=== PATIENT | male | born 1985 | race African-American/Black ===

== ENCOUNTER → 2022-11-15 | Outpatient (REF) | payer MEDICARE, MEDICAID, SELFPAY ==
[2022-11-15 08:17] LABS: Absolute Neutrophil Count 5.8 X10^3/uL (2.0-7.7); Basophil# 0.07 X10^3/uL; Basophil% 0.9 % (0-1); Eosinophil# 0.43 X10^3/uL; Eosinophils% 5.2 % (0-5); Hematocrit 28.8 % (40-54); Hemoglobin 8.7 g/dL (13.0-16.5); Lymphocyte % 13.4 % (19-41); Mean Corp Hgb Conc 30.2 g/dL (32-36); Mean Corpuscular Hgb 28.1 pg (27.0-32.0); Mean Corpuscular Volume 92.9 fL (80-94); Mean Platelet Vol. 11.2 fl (6.2-12.0); Monocyte# 0.85 X10^3/uL; Monocyte% 10.3 % (0-10); NRBC Flagged by Analyzer 0 % (0-5); Neutrophil # 5.75 X10^3/uL (2.7-7.7); Platelet Count 386 K/mm3 (150-450); RBC Distribution Width CV 16.8 % (11.6-14.6); RBC Distribution Width SD 57.1 fl (35.1-43.9); White Blood Count 8.2 K/mm3 (4.4-11.0)
[2022-11-15 08:40] LABS: ALB/GLOB Ratio 0.2 RATIO (0.9-2.4); AST(SGOT) 24 U/L (15-37); Alanine Aminotransfer ALT/SGPT 15 U/L (16-61); Albumin, Serum 1.5 g/dL (3.2-5.0); Alkaline Phosphatase 851 U/L (45-117); Anion Gap 6 (5-15); BUN 23 mg/dL (7-18); BUN/Creat Ratio 8.4 RATIO (10-20); Calcium,Total 8.6 mg/dL (8.5-10.1); Chloride 103 mmol/L (98-107); Creatinine, Serum 2.73 mg/dL (0.70-1.30); EST Glomerular Filtration Rate 28 mL/min (>60); Est Glom Filt Rate - Afr Amer 34 mL/min (>60); Globulin 6.2 g/dL (2.2-4.2); Glucose 270 mg/dL (74-106); Magnesium 1.9 mg/dL (1.6-2.6); Potassium 4.7 mmol/L (3.5-5.1); Protein, Total 7.7 g/dL (6.4-8.2); Sodium Level 136 mmol/L (136-145); Thyroid Stim Hormone (TSH) 4.34 uIU/mL (0.358-3.74)
== END ==
LOC: OLS.SW 06:20
PROVIDERS: Visit Provider Internal Medicine
DX: Z02.0 Encounter for examination for admission to educational institution (principal); Z79.899 Other long term (current) drug therapy
CPT/HCPCS: 36415; 80053; 83036; 83735; 84443; 85025

== ENCOUNTER → 2022-11-28 | Outpatient (REF) | payer MEDICARE, MEDICAID, SELFPAY ==
[2022-11-28 09:09] LABS: Hematocrit 30.6 % (40-54); Hemoglobin 8.9 g/dL (13.0-16.5); Mean Corp Hgb Conc 29.1 g/dL (32-36); Mean Corpuscular Hgb 27.4 pg (27.0-32.0); Mean Corpuscular Volume 94.2 fL (80-94); Mean Platelet Vol. 11.4 fl (6.2-12.0); Platelet Count 247 K/mm3 (150-450); RBC Distribution Width SD 55.5 fl (35.1-43.9); Red Blood Count 3.25 M/mm3 (4.6-6.2); White Blood Count 9.3 K/mm3 (4.4-11.0)
[2022-11-28 09:39] LABS: ALB/GLOB Ratio 0.3 RATIO (0.9-2.4); AST(SGOT) 19 U/L (15-37); Alanine Aminotransfer ALT/SGPT 18 U/L (16-61); Albumin, Serum 1.9 g/dL (3.2-5.0); Alkaline Phosphatase 443 U/L (45-117); Anion Gap 5 (5-15); BUN 26 mg/dL (7-18); BUN/Creat Ratio 10.1 RATIO (10-20); Calcium,Total 8.4 mg/dL (8.5-10.1); Chloride 105 mmol/L (98-107); Creatinine, Serum 2.58 mg/dL (0.70-1.30); EST Glomerular Filtration Rate 30 mL/min (>60); Est Glom Filt Rate - Afr Amer 37 mL/min (>60); Globulin 5.9 g/dL (2.2-4.2); Glucose 287 mg/dL (74-106); Magnesium 1.7 mg/dL (1.6-2.6); Potassium 4.5 mmol/L (3.5-5.1); Protein, Total 7.8 g/dL (6.4-8.2); Sodium Level 137 mmol/L (136-145)
== END ==
LOC: OLS.SW 07:00
PROVIDERS: Visit Provider Internal Medicine
DX: E11.9 Type 2 diabetes mellitus without complications (principal); D64.9 Anemia, unspecified
CPT/HCPCS: 36415; 80053; 83735; 85027

== ENCOUNTER → 2022-12-10 | Outpatient (REF) | payer MEDICARE, MEDICAID, SELFPAY ==
[2022-12-10 09:05] LABS: Hematocrit 34.3 % (40-54); Mean Corp Hgb Conc 29.2 g/dL (32-36); Mean Corpuscular Hgb 27.6 pg (27.0-32.0); Mean Corpuscular Volume 94.8 fL (80-94); Platelet Count 240 K/mm3 (150-450); RBC Distribution Width SD 56.8 fl (35.1-43.9); Red Blood Count 3.62 M/mm3 (4.6-6.2); White Blood Count 6.6 K/mm3 (4.4-11.0)
[2022-12-10 09:16] LABS: Anion Gap 7 (5-15); BUN 53 mg/dL (7-18); BUN/Creat Ratio 11.8 RATIO (10-20); Calcium,Total 8.6 mg/dL (8.5-10.1); Chloride 108 mmol/L (98-107); Creatinine, Serum 4.51 mg/dL (0.70-1.30); EST Glomerular Filtration Rate 16 mL/min (>60); Est Glom Filt Rate - Afr Amer 19 mL/min (>60); Glucose 151 mg/dL (74-106); Potassium 4.8 mmol/L (3.5-5.1); Sodium Level 136 mmol/L (136-145)
== END ==
LOC: OLS.SW 04:00
PROVIDERS: Referring Provider Internal Medicine; Visit Provider Internal Medicine
DX: J96.01 Acute respiratory failure with hypoxia (principal); N18.6 End stage renal disease
CPT/HCPCS: 36415; 80048; 83735; 85027

== ENCOUNTER 2023-01-01 23:37 | Inpatient (IN) | payer MEDICARE, MEDICAID, SELFPAY ==
[2023-01-01 23:39] VITALS: BP 150/110; PULSE 120; RESP 23; TEMP 39.5; O2SAT 96; BMI 33.8
[2023-01-01 23:44] VITALS: BP 196/97; PULSE 120; RESP 27; TEMP 39.5; O2SAT 95
[2023-01-02] VITALS (13 sets, daily range): BP systolic 111–149; BP diastolic 69–94; PULSE 88–112; RESP 12–36; TEMP 35.9–38.7; O2SAT 96–100
--- NOTE | 2023-01-02 00:22 | RAD_ITS ---
INDICATION: cough EXAMINATION: Frontal view of the chest COMPARISON: None. FINDINGS: Frontal view of the chest was obtained. The cardiac silhouette appears mildly enlarged although heart size can be exaggerated on AP projection. No confluent airspace disease. No pneumothorax. RAD/Chest 1 View (Portable) IMPRESSION: No confluent airspace disease. Suspected mild cardiomegaly. Electronically Signed: Chris Kaur MD at 1:09 EDT ,
[2023-01-02 00:29] LABS: Absolute Lymphocyte Count 1.74 X10^3/uL (0.83-4.51); Absolute Neutrophil Count 17.7 X10^3/uL (2.0-7.7); Basophil# 0.06 X10^3/uL; Basophil% 0.3 % (0-1); Hematocrit 34.8 % (40-54); Hemoglobin 10.5 g/dL (13.0-16.5); Lymphocyte # 1.74 X10^3/ul (0.83-4.51); Lymphocyte % 8.4 % (19-41); Mean Corp Hgb Conc 30.2 g/dL (32-36); Mean Corpuscular Hgb 28.2 pg (27.0-32.0); Mean Corpuscular Volume 93.5 fL (80-94); Mean Platelet Vol. 10.8 fl (6.2-12.0); Monocyte# 0.84 X10^3/uL; Monocyte% 4.1 % (0-10); NRBC Flagged by Analyzer 0 % (0-5); Neutrophil # 17.68 X10^3/uL (2.7-7.7); Neutrophil % 85.5 % (47-70); Platelet Count 250 K/mm3 (150-450); RBC Distribution Width CV 15.9 % (11.6-14.6); RBC Distribution Width SD 54.9 fl (35.1-43.9); Red Blood Count 3.72 M/mm3 (4.6-6.2); White Blood Count 20.7 K/mm3 (4.4-11.0)
[2023-01-02] MEDS: Acetaminophen 500 MG Tablet 1000 MG PO (00:31)
[2023-01-02 00:45] LABS: Lactic Acid 1.9 mmol/L (0.4-1.9)
[2023-01-02 00:48] LABS: Anion Gap 10 (5-15); BUN 60 mg/dL (7-18); BUN/Creat Ratio 9.6 RATIO (10-20); Calcium,Total 8.4 mg/dL (8.5-10.1); Chloride 103 mmol/L (98-107); Creatinine, Serum 6.23 mg/dL (0.70-1.30); EST Glomerular Filtration Rate 11 mL/min (>60); Est Glom Filt Rate - Afr Amer 13 mL/min (>60); Glucose 109 mg/dL (74-106); Phosphorus 4.5 mg/dL (2.5-4.9); Sodium Level 136 mmol/L (136-145)
--- NOTE | 2023-01-02 00:50 | ED.RN ---
sister called and made aware of condition and status at this time
--- NOTE | 2023-01-02 00:53 | EKG12_ITS ---
Test Reason : DYSRHYTHMIA Blood Pressure : / mmHG Vent. Rate : 112 BPM Atrial Rate : 112 BPM P-R Int : 144 ms QRS Dur : 072 ms QT Int : 306 ms P-R-T Axes : 030 029 124 degrees QTc Int : 417 ms Sinus tachycardia Abnormal ECG Confirmed by JEFF SMITH MD ([id number]), editor news JENS DANIELSON ([id number]) on 01/02/2023 10:06:55 AM Referred By: MADI Confirmed By:JEFF SMITH MD
[2023-01-02 01:08] LABS: Potassium 5.5 mmol/L (3.5-5.1)
[2023-01-02] MEDS: Ondansetron 4 MG/2 ML Vial IV (01:21)
[2023-01-02] MEDS: Morphine 4 MG/ML Syringe IV ×3 (01:21→22:34)
--- NOTE | 2023-01-02 01:40 | EDS_ITS ---
HPI History of Present Illness Chief Complaint: Fever Informant: patient and EMS Narrative Narrative: Patient is a 37-year-old male with end-stage renal disease on dialysis type 2 diabetes and paraplegia who presents with fever. Patient states that he receives dialysis on Saturday and Saturday. He states that he woke up Saturday feeling unwell and secondary to this did not go to dialysis. He states that this evening he developed a cough and had bouts of coughing so violently that he developed bouts of vomiting. He states he then spiked a fever and secondary to this there was concern for an infectious process so he was sent to the hospital for evaluation. 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 failure and stage 1 through stage 4 chronic kidney disease, or unspecified chronic kidney disease Hypothyroidism Kidney transplant failure Neuromuscular dysfunction of bladder, unspecified Other acute osteomyelitis, left ankle and foot Other pericardial effusion (noninflammatory) Other pulmonary embolism without acute cor pulmonale Paraplegia, incomplete Pressure ulcer of left heel, unspecified stage Type 2 diabetes mellitus with diabetic chronic kidney disease Home Medications acetaminophen 325 mg tablet 650 mg PO Q4H PRN PAIN/FEVER 01/02/23 [History Last Taken Unknown] acetaminophen 650 mg tablet 650 mg PO Q4H PRN PAIN/FEVER 01/02/23 [History Last Taken Unknown] aluminum-magnesium hydroxide 225 mg-200 mg/5 mL oral suspension 30 ml PO Q4H PRN PRN GI DISTRESS 01/02/23 [History Last Taken Unknown] apixaban 5 mg tablet (Eliquis) 5 mg PO BID 01/02/23 [History Last Taken Unknown] ascorbic acid (vitamin C) 500 mg tablet 500 mg PO DAILY 01/02/23 [History Last Taken Unknown] atorvastatin 40 mg tablet 40 mg PO QHS 01/02/23 [History Last Taken Unknown] bisacodyl 10 mg rectal suppository 10 mg CO DAILY PRN Constipation 01/02/23 [History Last Taken Unknown] carvedilol 12.5 mg tablet 12.5 mg PO BID 01/02/23 [History Last Taken Unknown] cetylpyridinium chloride 1 yunior mucous membrane Q3H PRN Sore Throat 01/02/23 [History Last Taken Unknown] clotrimazole-betamethasone 1 %-0.05 % topical cream 1 applic topical QHS 01/02/23 [History Last Taken Unknown] darbepoetin jacki in polysorbat 40 mcg/mL in polysorbate injection 40 mcg IV X1 PRN DIALYSIS 01/02/23 [History Last Taken Unknown] dextrose 40 % oral gel (Glucose Gel) 15 g PO Q15M PRN Hypoglycemia 01/02/23 [History Last Taken Unknown] diphenhydramine HCl 25 mg capsule (Benadryl) 25 mg PO DAILY PRN Itching 01/02/23 [History Last Taken Unknown] escitalopram oxalate 10 mg tablet 10 mg PO DAILY 01/02/23 [History Last Taken Unknown] famotidine 20 mg tablet 20 mg PO DAILY 01/02/23 [History Last Taken Unknown] gabapentin 300 mg capsule 300 mg PO QHS 01/02/23 [History Last Taken Unknown] glucagon 1 mg injection kit 1 mg IM PRN PRN Hypoglycemia 01/02/23 [History Last Taken Unknown] guaifenesin 100 mg/5 mL oral syrup 400 mg PO Q6H PRN Cough 01/02/23 [History Last Taken Unknown] hydralazine 25 mg tablet 25 mg PO Q8 01/02/23 [History Last Taken Unknown] insulin glargine 100 unit/mL (3 mL) subcutaneous pen (Lantus Solostar U-100 Insulin) 20 unit subcut QHS 01/02/23 [History Last Taken Unknown] insulin lispro 100 unit/mL subcutaneous pen (Humalog KwikPen (U-100) Insulin) 3 unit subcut TID 01/02/23 [History Last Taken Unknown] insulin lispro 100 unit/mL subcutaneous pen (Humalog KwikPen (U-100) Insulin) See Rx Instructions .Route .COMPLEX 01/02/23 [History Last Taken Unknown] levothyroxine 150 mcg capsule 150 mcg PO DAILY 01/02/23 [History Last Taken Unknown] melatonin 3 mg tablet 3 mg PO QHS 01/02/23 [History Last Taken Unknown] midodrine 10 mg tablet 10 mg PO DAILY 01/02/23 [History Last Taken Unknown] nystatin 100,000 unit/gram topical powder 1 applic topical PRN PRN Skin Intervention 01/02/23 [History Last Taken Unknown] ondansetron HCl 4 mg tablet 4 mg PO Q6H PRN Nausea 01/02/23 [History Last Taken Unknown] oxycodone 10 mg tablet 10 mg PO Q4H PRN Pain 01/02/23 [History Last Taken Unknown] oxycodone 5 mg tablet 5 mg PO Q4H PRN Pain 01/02/23 [History Last Taken Unknown] pantoprazole 40 mg tablet,delayed release 40 mg PO DAILY 01/02/23 [History Last Taken Unknown] polyethylene glycol 3350 17 gram oral powder packet 17 g PO DAILY 01/02/23 [History Last Taken Unknown] prednisone 5 mg tablet 5 mg PO DAILY 01/02/23 [History Last Taken Unknown] promethazine 12.5 mg tablet 12.5 mg PO Q8H PRN Nausea 01/02/23 [History Last Taken Unknown] sennosides 8.6 mg-docusate sodium 50 mg capsule (Senna Plus) 1 tab-cap PO BID PRN Constipation 01/02/23 [History Last Taken Unknown] sodium phosphates 19 gram-7 gram/118 mL enema (Fleet Enema) 118 ml CO DAILY PRN Constipation 01/02/23 [History Last Taken Unknown] tacrolimus 1 mg capsule, immediate-release (Prograf) 2 mg PO Q12H 01/02/23 [History Last Taken Unknown] trazodone 50 mg tablet 50 mg PO QHS 01/02/23 [History Last Taken Unknown] Allergy/AdvReac Type Severity Reaction Status Date / Time No Known Allergies Allergy Verified 01/01/23 23:38 Family History (Updated 01/02/23 @ 01:[address] Olga Moore MD) Mother Hypertension Diabetes Father Hypertension Diabetes Surgical History (Updated 01/02/23 @ 01:[address] Olga Moore MD) S/P colostomy S/P foot surgery S/P unilateral above knee amputation Social History (Updated 01/02/23 @ 01:[address] Olga Moore MD) housing: detention Smoking Status: Never smoker alcohol intake: never substance use type: does not use ROS ROS ED Constitutional Constitutional ED: Reports chills and fever(s) ENT ENT ED: Reports rhinorrhea; Denies sore throat Cardiovascular Cardiovascular: Denies chest pain Respiratory/Chest Respiratory/Chest: Reports cough; Denies dyspnea Gastrointestinal Gastrointestinal: Reports vomiting; Denies abdominal pain, diarrhea or nausea Genitourinary Genitourinary ED: Denies dysuria Musculoskeletal Musculoskeletal: Reports myalgias Integumentary Reports other Details: Chronic wound right foot Neurologic Neurologic: Denies headache(s) Hematologic/Lymphatic Hematologic/Lymphatic: Reports easy bleeding and easy bruising EXAM Physical Exam Const Vital Signs: 01/01/23 23:39 01/01/23 23:44 01/02/23 00:02 Temperature 103.1 F H 103.1 F H Temperature Source Oral Oral Pulse Rate 120 H 120 H Respiratory Rate 23 H 27 H Respiratory Effort Short of Breath Blood Pressure 150/110 H 196/97 H Blood Pressure Mean 123 130 Pulse Ox 96 95 Oxygen Delivery Method Nasal Cannula Nasal Cannula Oxygen Flow Rate (L/min) 3 3 01/02/23 00:12 01/02/23 00:50 01/02/23 01:18 Temperature 101.7 F H Temperature Source Oral Pulse Rate 112 H 111 H Respiratory Rate 27 H 36 H Respiratory Effort Blood Pressure 148/94 H 149/83 H Blood Pressure Mean 112 105 Pulse Ox 98 96 97 Oxygen Delivery Method Nasal Cannula Nasal Cannula Nasal Cannula Oxygen Flow Rate (L/min) 3 3 3 01/02/23 01:31 Temperature 98 F Temperature Source Temporal Pulse Rate 106 H Respiratory Rate 25 H Respiratory Effort Blood Pressure 149/83 H Blood Pressure Mean 105 Pulse Ox 97 Oxygen Delivery Method Oxygen Flow Rate (L/min) Positive well nourished and well developed General Appearance ED: well developed HEENT Reports moist mucous membranes HEENT Narrative: Cobblestoning the posterior pharynx consistent with sinus drainage without tongue or lip swelling oral lesions airway edema or compromise Eyes PERRL and EOMs intact bilaterally Neck supple and no JVD Chest Wall palpation of chest normal Resp normal respiratory effort and clear to auscultation bilaterally Resp Narrative: Breath sounds are diminished throughout but overall clear to auscultation without nasal flaring retractions tachypnea or accessory muscle use Cardio regular rhythm Rate: tachycardic GI non-tender and non-distended GI Narrative: Patient has a colostomy present in the left lower abdomen that is draining brown stool there is no abdominal distention or pain with palpation bowel sounds are normal active there is no voluntary guarding rigidity or pulsatile mass Auscultation: normoactive bowel sounds Palpation: soft Extremity Extremity Narrative: Patient has a fistula present in the left forearm with palpable thrill and good bruit Patient has an [id number]-[id number] amputation on left roughly 1 month ago that appears clean dry and intact without secondary changes to suggest infection Right lower extremity has chronic diabetic foot wound and loss of his fourth and fifth toes. There is no obvious surrounding erythema warmth or discharge from the wounds to suggest secondary infection. Neuro oriented x3 and CN's II-XII intact bilaterally Sensorium / Orientation: alert Psych mental status grossly normal Skin Skin Narrative: Chronic changes as documented above MDM MDM MDM Narrative Medical decision making narrative: Patient presented to the ER febrile at 103 and was tachycardic most likely secondary to this. He is on 3 L nasal cannula oxygen and satting 96 to 98%. He states that he wears 3 L every night at bedtime so this is not abnormal for him. He denies any abdominal pain or diarrhea and states he does not make urine. His main complaint is fever and chills associated with cough and therefore there is concern for pneumonia versus viral infection such as COVID or influenza. There is also concern that he skipped dialysis he has hyperkalemia or hyperphosphatemia as well as developing possible sepsis. Secondary to this basic blood work with cultures were obtained as well as lactic acid. A COVID and influenza swab as well as respiratory viral panel was obtained and a chest x-ray to look for pneumonia. Chest x-ray revealed no obvious infiltrate however the patient's white count is greatly elevated at 21 but lactic acid is normal. At this time with concern for a potential bacterial infection as a cause of his fever and leukocytosis he will be started on vancomycin and Zosyn while blood cultures are pending. At this time based on his fever and tachycardia as well as leukocytosis he does qualify for SIRS criteria but as I do not have an obvious source I cannot diagnose him as sepsis. There is no obvious signs of infection to his stump or chronic foot wound and I do not feel there is need for x-rays of these areas to check for osteomyelitis. At this time with the patient's abnormal vital signs and abnormal laboratory values I do feel be best to continue to evaluate the patient in the hospital and therefore medicine was contacted. They evaluated the patient and do agree with this and therefore he will be admitted to their service for further care History & Record Review Discussion w/independent historian: EMS personnel and Patient Lab Data Attestation: I reviewed the patient's lab results. Labs: Laboratory Results - last 24 hr 01/02/23 01/02/23 01/02/23 00:05 00:05 00:05 WBC 20.7 H RBC 3.72 L Hgb 10.5 L Hct 34.8 L MCV 93.5 MCH 28.2 MCHC 30.2 L RDW Std Deviation 54.9 H RDW Coeff of Shanta 15.9 H Plt Count 250 MPV 10.8 Immature Gran % (Auto) 0.700 Neut % (Auto) 85.5 H Lymph % (Auto) 8.4 L Lincoln % (Auto) 4.1 Eos % (Auto) 1.0 Baso % (Auto) 0.3 Absolute Neuts (auto) 17.7 H Absolute Lymphs (auto) 1.74 Nucleated RBC % 0 Sodium 136 Potassium 6.0 H* Chloride 103 Carbon Dioxide 23.0 Anion Gap 10 BUN 60 H Creatinine 6.23 H Estim Creat Clear Calc 18.70 Est GFR (MDRD) Af Amer 13 L Est GFR (MDRD) Non-Af 11 L BUN/Creatinine Ratio 9.6 L Glucose 109 H Lactic Acid 1.9 Calcium 8.4 L Phosphorus 4.5 Procalcitonin 01/02/23 01/02/23 00:05 00:52 WBC RBC Hgb Hct MCV MCH MCHC RDW Std Deviation RDW Coeff of Shanta Plt Count MPV Immature Gran % (Auto) Neut % (Auto) Lymph % (Auto) Lincoln % (Auto) Eos % (Auto) Baso % (Auto) Absolute Neuts (auto) Absolute Lymphs (auto) Nucleated RBC % Sodium Potassium 5.5 H Chloride Carbon Dioxide Anion Gap BUN Creatinine Estim Creat Clear Calc Est GFR (MDRD) Af Amer Est GFR (MDRD) Non-Af BUN/Creatinine Ratio Glucose Lactic Acid Calcium Phosphorus Procalcitonin 0.12 H Radiography Diagnostic Testing: Clinical Impression(s) from Imaging Studies Chest X-Ray 01/02/23 00:22 IMPRESSION: No confluent airspace disease. Suspected mild cardiomegaly. Electronically Signed: Chris Kaur MD at 1:09 EDT , 1 view chest x-ray as interpreted by the emergency medicine physician reveals no acute infiltrate pneumothorax or pleural effusion Discharge Plan Triage Chief Complaint: Fever ED Provider: Joel French Dx/Rx/DC Orders Clinical Impression: Pneumonia, Chronic kidney disease with end stage renal failure on dialysis, Hyperkalemia, Pyrexia, SIRS (systemic inflammatory response syndrome) Primary Care Provider: Vanessa Hutchins Disposition Disposition: Acute Care Hospital [facility] Discharge Date/Time: 01/02/23 01:42
--- NOTE | 2023-01-02 01:41 | HP.PCM.HOS_ITS ---
HPI - General General Date of Admission: 01/02/23 Date of Service: 01/02/23 Chief Complaint: Fever, cough, dyspnea. HPI Narrative The patient is a 37 y/o M w/ PMHx: Obesity, Chronic normocytic anemia/AOCD, Chronic Systolic CHF, HTN, HLD, ESRD on HD T s/p failed Txp, Hypothyroidism, Depression and Anxiety, GERD, Diabetes mellitus type II w/ Chronic R diabetic foot ulcerative wound, chronic left ischial/sacral wound, incomplete paraplegia following renal transplant per patient report secondary to severe clots of some sort but poor historian, s/p recent L SANTY residing at a SNF who presents to the [facility] ED on 01/02/23 with history of feeling poorly, missed HD Saturday with onset this evening fever, cough occasionally productive of white-yellow sputum, dyspnea in addition to palpitations/tachycardia with nausea and emesis but following bouts of coughing with normal ostomy output. Work-up in the ED included T103.1, heart rate initially 120 with most recent repeat 112, BP initially 150/110 with most recent repeat 140/94, respiratory rate 23, 96% on 3 L nasal cannula, CBC with WBC 20.7, hemoglobin 10.5, MCV 93.5, platelet 250 with left shift, BMP with potassium 5.5 initially reported as 6.0 with moderate hemolysis and on repeat slight hemolysis still evident, BUN/creatinine 60/6.23, glucose 109, lactic acid 1.9, procalcitonin pending upon requested evaluation of patient, chest x-ray with suspected mild cardiomegaly with no confluent airspace disease, rapid SARS COVID/influenza antigens negative, blood culture x2 pending per ED, full respiratory viral panel requested per ED and pending ID evaluation. In the ED patient ministered 1 L normal saline, Tylenol 1000 mg p.o. x1, Zofran 4 mg IV x1, morphine 4 mg IV x1, IV vancomycin and IV Zosyn therapy. [facility] Medical History Acute on chronic systolic (congestive) heart failure Acute pulmonary edema Acute respiratory failure with hypoxia Anemia in chronic kidney disease Dependence on renal dialysis Depression End stage renal disease Gastro-esophageal reflux disease without esophagitis Hyperlipemia Hypertensive heart and chronic kidney disease with heart failure and stage 1 through stage 4 chronic kidney disease, or unspecified chronic kidney disease Hypothyroidism Kidney transplant failure Neuromuscular dysfunction of bladder, unspecified Other acute osteomyelitis, left ankle and foot Other pericardial effusion (noninflammatory) Other pulmonary embolism without acute cor pulmonale Paraplegia, incomplete Pressure ulcer of left heel, unspecified stage Type 2 diabetes mellitus with diabetic chronic kidney disease Home Medications acetaminophen 325 mg tablet 650 mg PO Q4H PRN PAIN/FEVER 01/02/23 [History Last Taken Unknown] acetaminophen 650 mg tablet 650 mg PO Q4H PRN PAIN/FEVER 01/02/23 [History Last Taken Unknown] aluminum-magnesium hydroxide 225 mg-200 mg/5 mL oral suspension 30 ml PO Q4H PRN PRN GI DISTRESS 01/02/23 [History Last Taken Unknown] apixaban 5 mg tablet (Eliquis) 5 mg PO BID 01/02/23 [History Last Taken Unknown] ascorbic acid (vitamin C) 500 mg tablet 500 mg PO DAILY 01/02/23 [History Last Taken Unknown] atorvastatin 40 mg tablet 40 mg PO QHS 01/02/23 [History Last Taken Unknown] bisacodyl 10 mg rectal suppository 10 mg IN DAILY PRN Constipation 01/02/23 [History Last Taken Unknown] carvedilol 12.5 mg tablet 12.5 mg PO BID 01/02/23 [History Last Taken Unknown] cetylpyridinium chloride 1 yunior mucous membrane Q3H PRN Sore Throat 01/02/23 [History Last Taken Unknown] clotrimazole-betamethasone 1 %-0.05 % topical cream 1 applic topical QHS 01/02/23 [History Last Taken Unknown] darbepoetin jacki in polysorbat 40 mcg/mL in polysorbate injection 40 mcg IV X1 PRN DIALYSIS 01/02/23 [History Last Taken Unknown] dextrose 40 % oral gel (Glucose Gel) 15 g PO Q15M PRN Hypoglycemia 01/02/23 [History Last Taken Unknown] diphenhydramine HCl 25 mg capsule (Benadryl) 25 mg PO DAILY PRN Itching 01/02/23 [History Last Taken Unknown] escitalopram oxalate 10 mg tablet 10 mg PO DAILY 01/02/23 [History Last Taken Unknown] famotidine 20 mg tablet 20 mg PO DAILY 01/02/23 [History Last Taken Unknown] gabapentin 300 mg capsule 300 mg PO QHS 01/02/23 [History Last Taken Unknown] glucagon 1 mg injection kit 1 mg IM PRN PRN Hypoglycemia 01/02/23 [History Last Taken Unknown] guaifenesin 100 mg/5 mL oral syrup 400 mg PO Q6H PRN Cough 01/02/23 [History Last Taken Unknown] hydralazine 25 mg tablet 25 mg PO Q8 01/02/23 [History Last Taken Unknown] insulin glargine 100 unit/mL (3 mL) subcutaneous pen (Lantus Solostar U-100 Insulin) 20 unit subcut QHS 01/02/23 [History Last Taken Unknown] insulin lispro 100 unit/mL subcutaneous pen (Humalog KwikPen (U-100) Insulin) 3 unit subcut TID 01/02/23 [History Last Taken Unknown] insulin lispro 100 unit/mL subcutaneous pen (Humalog KwikPen (U-100) Insulin) See Rx Instructions .Route .COMPLEX 01/02/23 [History Last Taken Unknown] levothyroxine 150 mcg capsule 150 mcg PO DAILY 01/02/23 [History Last Taken Unknown] melatonin 3 mg tablet 3 mg PO QHS 01/02/23 [History Last Taken Unknown] midodrine 10 mg tablet 10 mg PO DAILY 01/02/23 [History Last Taken Unknown] pantoprazole 40 mg tablet,delayed release 40 mg PO DAILY 01/02/23 [History Last Taken Unknown] prednisone 5 mg tablet 5 mg PO DAILY 01/02/23 [History Last Taken Unknown] sodium phosphates 19 gram-7 gram/118 mL enema (Fleet Enema) 118 ml IN DAILY PRN Constipation 01/02/23 [History Last Taken Unknown] tacrolimus 1 mg capsule, immediate-release (Prograf) 2 mg PO Q12H 01/02/23 [History Last Taken Unknown] trazodone 50 mg tablet 50 mg PO QHS 01/02/23 [History Last Taken Unknown] Allergy/AdvReac Type Severity Reaction Status Date / Time No Known Allergies Allergy Verified 01/01/23 23:38 Family History (Updated 01/02/23 @ 01:[address] Olga Moore MD) Mother Hypertension Diabetes Father Hypertension Diabetes Surgical History (Updated 01/02/23 @ 01:[address] Olga Moore MD) S/P colostomy S/P foot surgery S/P unilateral above knee amputation Social History (Updated 01/02/23 @ 01:[address] Olga Moore MD) housing: senior living Smoking Status: Never smoker alcohol intake: never substance use type: does not use ROS ROS Narrative Admission Review of Systems: CONSTITUTIONAL: No weight loss, + fever, chills, weakness or fatigue. HEENT: Eyes: No visual loss, blurred vision, double vision or yellow sclerae. Ears, Nose, Throat: No hearing loss, sneezing, congestion, runny nose or sore throat. SKIN: + Significant left ischial/sacral wound, chronic right plantar foot wound, status post recent left AKA with intact incision with no drainage. CARDIOVASCULAR: No chest pain, chest pressure or chest discomfort, palpitations, edema, orthopnea, syncopal events. RESPIRATORY: + shortness of breath, cough with occasional productive sputum, No wheezing, hemoptysis. GASTROINTESTINAL: No anorexia, nausea, vomiting or diarrhea, abdominal pain, melena, BRBPR. GENITOURINARY: No dysuria, frequency, urgency or retention. NEUROLOGICAL: + Chronic bilateral lower extremity reported functional paraplegia, chronic bilateral lower extremity paresthesias, no headache, dizziness, syncope, change in bowel or bladder control, seizure. MUSCULOSKELETAL:+ muscle, back pain, joint pain or stiffness. HEMATOLOGIC: + anemia, bleeding or bruising. LYMPHATICS: No enlarged nodes. No history of splenectomy. PSYCHIATRIC: + history of depression or anxiety. ENDOCRINOLOGIC: No reports of sweating, cold or heat intolerance. No polyuria or polydipsia. ALLERGIES: No history of asthma, hives, eczema or rhinitis. Vital Signs Vital Signs Vital Signs: 01/01/23 23:39 01/01/23 23:44 01/02/23 00:02 Temperature 103.1 F H 103.1 F H Temperature Source Oral Oral Pulse Rate 120 H 120 H Respiratory Rate 23 H 27 H Respiratory Effort Short of Breath Blood Pressure 150/110 H 196/97 H Blood Pressure Mean 123 130 Pulse Ox 96 95 Oxygen Delivery Method Nasal Cannula Nasal Cannula Oxygen Flow Rate (L/min) 3 3 01/02/23 00:12 01/02/23 00:50 01/02/23 01:18 Temperature 101.7 F H Temperature Source Oral Pulse Rate 112 H 111 H Respiratory Rate 27 H 36 H Respiratory Effort Blood Pressure 148/94 H 149/83 H Blood Pressure Mean 112 105 Pulse Ox 98 96 97 Oxygen Delivery Method Nasal Cannula Nasal Cannula Nasal Cannula Oxygen Flow Rate (L/min) 3 3 3 01/02/23 01:31 Temperature 98 F Temperature Source Temporal Pulse Rate 106 H Respiratory Rate 25 H Respiratory Effort Blood Pressure 149/83 H Blood Pressure Mean 105 Pulse Ox 97 Oxygen Delivery Method Oxygen Flow Rate (L/min) Weight Weight: 256 lb 6.4 oz Body Mass Index (BMI) 33.8 Physical Exam Narrative Physical Examination: General: Awake, alert, oriented x 3 and cooperative, laying in the ED bed, diaphoretic, ill-appearing. Skin: Normal color, normal turgor, no icterus, no cyanosis except for notable left ischial/sacral wound, right plantar foot wound well-appearing with no drainage as well as evidence of status post various toe amputations, recent left AKA with incision intact, no drainage, stump well-appearing. HEENT: AT/NC, EOMI, PERRLA, dry MM, no carotid bruits or JVD noted. Lungs: Diminished, distant, mildly increased respiratory rate, no evidence of any distress, no rales, ronchi or wheezing. Heart: Mildly tachycardic with regular rhythm; no gallop, rub audible. Abdomen: Soft, obese, NTTP, colostomy present, ND, distant BS, no obvious evidence of HSM. Extremities: No cyanosis, no clubbing, left upper extremity with dialysis access/aVF with thrill, see skin. Neurological: Patient awake, alert, oriented as noted, cognitive function intact; pupils equally reactive to light and accommodation, cranial nerves II- XII grossly normal, functional paraplegic, chronic paresthesias to the lower extremities subjectively reported, strength moderately to severely global decreased secondary to acute presentation and underlying comorbidities. Psychiatric: Affect appears fatigued, ill-appearing, no acute evidence of depre ssive or anxiety feelings but noted underlying history. Results Lab / Micro Data Result Diagrams: 01/02/23 00:05 01/02/23 00:52 Labs: Laboratory Results - last 24 hr 01/02/23 00:05: WBC 20.7 H, RBC 3.72 L, Hgb 10.5 L, Hct 34.8 L, MCV 93.5, MCH 28.2, MCHC 30.2 L, RDW Std Deviation 54.9 H, RDW Coeff of Shanta 15.9 H, Plt Count 250, MPV 10.8, Immature Gran % (Auto) 0.700, Neut % (Auto) 85.5 H, Lymph % (Auto) 8.4 L, Woodward % (Auto) 4.1, Eos % (Auto) 1.0, Baso % (Auto) 0.3, Absolute Neuts (auto) 17.7 H, Absolute Lymphs (auto) 1.74, Nucleated RBC % 0 01/02/23 00:05: Sodium 136, Potassium 6.0 H*, Chloride 103, Carbon Dioxide 23.0, Anion Gap 10, BUN 60 H, Creatinine 6.23 H, Estim Creat Clear Calc 18.70, Est GFR (MDRD) Af Amer 13 L, Est GFR (MDRD) Non-Af 11 L, BUN/Creatinine Ratio 9.6 L, Glucose 109 H, Calcium 8.4 L, Phosphorus 4.5 01/02/23 00:05: Lactic Acid 1.9 01/02/23 00:05: Procalcitonin 0.12 H 01/02/23 00:52: Potassium 5.5 H Micro: Microbiology 01/02/23 00:28 Nasal Secretion SARS-CoV-2 & FLU Antigen (Rapid) - Final Radiology Impression Chest X-Ray 01/02/23 00:22 IMPRESSION: No confluent airspace disease. Suspected mild cardiomegaly. Electronically Signed: Chris Kaur MD at 1:09 EDT , Assessment & Plan Assessment/Plan (1) Pneumonia: PLAN: Plan The patient is a 37 y/o M w/ PMHx: Obesity, Chronic normocytic anemia/AOCD, Chronic Systolic CHF, HTN, HLD, ESRD on HD T s/p failed Txp, Hypothyroidism, Depression and Anxiety, GERD, Diabetes mellitus type II w/ Chronic R diabetic foot ulcerative wound, chronic left ischial/sacral wound, incomplete paraplegia following renal transplant per patient report secondary to severe clots of some sort but poor historian, s/p recent L AKA residing at a SNF who presents to the [facility] ED on 01/02/23 with history of feeling poorly, missed HD Saturday with onset this evening fever, cough occasionally productive of white-yellow sputum, dyspnea in addition to palpitations/tachycardia with nausea and emesis but following bouts of coughing with normal ostomy output. #1. Suspected Pneumonia, Possible GN/GP Organism with possible Acute concurrent Viral Syndrome: Will admit to MS telemetry, maintain on oxygen with wean as tolerated to room air, PRN albuterol, maintained on IV Zosyn and Vancomycin, HOB, IS parameters w/ pending sputum cultures and urine antigens. Bld cx x 2 obtained in the ED. Full respiratory panel pending per ED. #2. Chronic left ischial/sacral wound: Encourage offloading, daily dressing changes, status post colostomy secondary to issues with his chronic wound. #3. ESRD on HD status post prior failed renal transplant: Following with Nephrology, HD T, , Sat, missed T regimen secondary to illness onset, will consult Nephrology. #4. Chronic systolic CHF: No history of prior echo in the system, will cautiously continue aspirin, statin, Coreg home regimen, not on ARMINDA inhibitor/ARB, end-stage renal disease on dialysis not on any diuretic therapy of note, judiciously hydrate given history. #5. Diabetes mellitus type II w/ Chronic R diabetic foot ulcerative wound with chronic neuropathy and recent left AKA: Hold oral home regimen, continue home insulin regimen, ADA diet, accu checks w/ ISS, continue home gabapentin regimen, wound RN consulted, continue dressing changes to right foot, will continue to monitor left AKA incision. #6. Chronic normocytic anemia/AOCD: Admission hemoglobin 10.5, prior baseline noted to be 10, stable, continue to trend. #7. Hypertension: We will continue patient home Coreg regimen with hold parameters as needed, as needed IV hydralazine. #8. Hyperlipidemia: We will continue patient on statin therapy. #9. Hypothyroidism: Noted history, clarifying medications, no obvious Synthroid or levothyroxine noted currently, add if appropriate. #10. Anxiety and depression: We will continue patient on escitalopram regimen. #11. Obesity: Weight loss and lifestyle changes encouraged. #12. GERD: We will continue patient home famotidine regimen. #13. History of VTE: Patient describing history of extensive clots as a specific reason for his functional paraplegia to lower extremities, we will continue patient home Eliquis regimen. #14. DVT prophylaxis: We will continue patient home Eliquis regimen. #15. CODE STATUS: Patient does not have healthcare power of immersion metal cleaner nor living will in place but notes his brother and sister would be his decision makers. Discussed CODE status at length including difference between FULL code, DNR-CCA and DNR-CC status. Following discussions about the differences in these status, requested Full Code status. Advanced Care Planning Face to Face Time: 16 minutes. Admission Evaluation Time spent evaluating chart, patient history, patient evaluation, care planning and discussion with specialists: 75 minutes. Charges/Coding Visit Charges Inpatient E&M: 19350 Init Hosp L3 Procedures Hospitalists Procedures: 96497 Advncd Care Plan 30 Min
--- NOTE | 2023-01-02 01:53 | ED.RN ---
sister made aware of admission at this time
[2023-01-02] MEDS: Tacrolimus Anhydrous 1 MG Capsule 2 MG PO ×2 (02:35→22:32)
[2023-01-02] MEDS: 0.9% Normal Saline 1,000 ML 100 ML IV (04:35)
--- NOTE | 2023-01-02 06:00 | NURSING ---
0600 Documented on downtime sep that pt refused 0600 dose of apresoline, per rn nakia goodrich documentation that pt refused at this time and will take when awake. This rn entering downtime sep meds/documentation unable to chart not given without taking away the scheduled dose time and did not want pt to miss dose. Pts primary dayshift rn aware that med not given and was documented that pt will take when awake.
[2023-01-02 06:49] LABS: Procalcitonin 0.12 ng/mL (0.00-0.09)
[2023-01-02 07:46] LABS: Bedside Glucose 70 mg/dL (74-106)
[2023-01-02 07:58] LABS: Magnesium 1.6 mg/dL (1.6-2.6)
[2023-01-02 08:04] LABS: Absolute Lymphocyte Count 2.04 X10^3/uL (0.83-4.51); Absolute Neutrophil Count 21.3 X10^3/uL (2.0-7.7); Basophil% 0.4 % (0-1); Eosinophil# 0.14 X10^3/uL; Eosinophils% 0.6 % (0-5); Hematocrit 33.4 % (40-54); Lymphocyte # 2.04 X10^3/ul (0.83-4.51); Lymphocyte % 8.2 % (19-41); Mean Corp Hgb Conc 29.9 g/dL (32-36); Mean Corpuscular Hgb 28.5 pg (27.0-32.0); Mean Corpuscular Volume 95.2 fL (80-94); Mean Platelet Vol. 10.6 fl (6.2-12.0); Monocyte# 1.22 X10^3/uL; Monocyte% 4.9 % (0-10); NRBC Flagged by Analyzer 0 % (0-5); Neutrophil # 21.32 X10^3/uL (2.7-7.7); Neutrophil % 85.2 % (47-70); POSITIVE DIFFERENTIAL YES; Platelet Count 220 K/mm3 (150-450); RBC Distribution Width CV 16.3 % (11.6-14.6); RBC Distribution Width SD 56.8 fl (35.1-43.9); Red Blood Count 3.51 M/mm3 (4.6-6.2)
[2023-01-02 08:06] LABS: Differential Indicated SCAN CRITERIA MET
[2023-01-02 08:46] LABS: ALB/GLOB Ratio 0.3 RATIO (0.9-2.4); AST(SGOT) 22 U/L (15-37); Alanine Aminotransfer ALT/SGPT 26 U/L (16-61); Albumin, Serum 1.7 g/dL (3.2-5.0); Alkaline Phosphatase 374 U/L (45-117); Anion Gap 6 (5-15); BUN 60 mg/dL (7-18); BUN/Creat Ratio 9.4 RATIO (10-20); Calcium,Total 8.5 mg/dL (8.5-10.1); Chloride 103 mmol/L (98-107); Creatinine, Serum 6.39 mg/dL (0.70-1.30); EST Glomerular Filtration Rate 11 mL/min (>60); Est Glom Filt Rate - Afr Amer 13 mL/min (>60); Estimated Creatinine Clearance 18.23 ml/min; Globulin 6.1 g/dL (2.2-4.2); Glucose 119 mg/dL (74-106); Potassium 5.3 mmol/L (3.5-5.1); Protein, Total 7.8 g/dL (6.4-8.2); Sodium Level 134 mmol/L (136-145)
--- NOTE | 2023-01-02 09:23 | CASEMGMT ---
Patient is from [facility]. SW went to check with patient to see if his plan is to return to [facility]. Patient was sleeping with a bipap and did not wake up. SW will check back with patient. Naina HERRERA
[2023-01-02] MEDS: oxyCODONE 5 MG Tablet 10 MG PO (09:43)
--- NOTE | 2023-01-02 10:10 | CASEMGMT ---
SW met with patient. Introduced self and role at [facility]. Patient confirmed his plan is to return to [facility] at discharge. Patient declined a list of [place] [facility] [place] facilities. Naina HERRERA
[2023-01-02] MEDS: Pantoprazole Sodium 40 MG Tablet PO (10:12)
[2023-01-02] MEDS: Midodrine HCl 5 MG Tablet 10 MG PO (10:12)
[2023-01-02] MEDS: Escitalopram Oxalate 10 MG Tablet PO (10:12)
[2023-01-02] MEDS: Famotidine 20 MG Tablet PO (10:13)
[2023-01-02] MEDS: Polyethylene Glycol 3350 17 GM PACKET PO (10:13)
[2023-01-02] MEDS: Ascorbic Acid 500 MG Tablet PO (10:13)
[2023-01-02] MEDS: predniSONE 5 MG Tablet PO (10:14)
[2023-01-02] MEDS: APIXABAN 5 MG TABLET PO ×2 (10:15→22:32)
--- NOTE | 2023-01-02 11:21 | CASEMGMT ---
Discharge Planning Patient resides at [facility] and wishes to return. Referral sent via [employer]. Asked if patient will require precert prior to returning. Awaiting response. Selina Sylvester, Discharge Planning Asst.
--- NOTE | 2023-01-02 11:55 | CON.PCM.RE_ITS ---
Assessment & Plan Assessment/Plan (1) Chronic kidney disease with end stage renal failure on dialysis: PLAN: ESRD on dialysis. We will arrange for dialysis today. Hyperkalemia. Initially hemolyzed sample, repeat potassium still on the higher side. Will use 2K bath. Sepsis. Question pneumonia. WBC count is elevated. Management as per primary HPI Consult Data Date of Consult: 01/02/23 HPI Narrative Reason for Consultation: ESRD. HPI Narrative: CHINA GUILLEN, is a 37 M who presents to the hospital with fever, chills, shortness of breath. He has known history of ESRD after failed kidney transplant. 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 Currently on hemodialysis 4 times a week, left arm radiocephalic fistula. Last dialysis was Saturday. He did not go to dialysis yesterday due to illness. On admission he was found to have significantly elevated WBC count. She has history of left above-knee amputation. Has wounds in his right lower extremity, sacral wound. Currently alert, awake. Denies any complaints. [facility] Medical History Acute on chronic systolic (congestive) heart failure Acute pulmonary edema Acute respiratory failure with hypoxia Anemia in chronic kidney disease Dependence on renal dialysis Depression End stage renal disease Gastro-esophageal reflux disease without esophagitis Hyperlipemia Hypertensive heart and chronic kidney disease with heart failure and stage 1 through stage 4 chronic kidney disease, or unspecified chronic kidney disease Hypothyroidism Kidney transplant failure Neuromuscular dysfunction of bladder, unspecified Other acute osteomyelitis, left ankle and foot Other pericardial effusion (noninflammatory) Other pulmonary embolism without acute cor pulmonale Paraplegia, incomplete Pressure ulcer of left heel, unspecified stage Type 2 diabetes mellitus with diabetic chronic kidney disease Home Medications acetaminophen 325 mg tablet 650 mg PO Q4H PRN PAIN/FEVER 01/02/23 [History Last Taken Unknown] acetaminophen 650 mg tablet 650 mg PO Q4H PRN PAIN/FEVER 01/02/23 [History Last Taken Unknown] aluminum-magnesium hydroxide 225 mg-200 mg/5 mL oral suspension 30 ml PO Q4H PRN PRN GI DISTRESS 01/02/23 [History Last Taken Unknown] apixaban 5 mg tablet (Eliquis) 5 mg PO BID 01/02/23 [History Last Taken Unknown] ascorbic acid (vitamin C) 500 mg tablet 500 mg PO DAILY 01/02/23 [History Last Taken Unknown] atorvastatin 40 mg tablet 40 mg PO QHS 01/02/23 [History Last Taken Unknown] bisacodyl 10 mg rectal suppository 10 mg [place] DAILY PRN Constipation 01/02/23 [History Last Taken Unknown] carvedilol 12.5 mg tablet 12.5 mg PO BID 01/02/23 [History Last Taken Unknown] cetylpyridinium chloride 1 yunior mucous membrane Q3H PRN Sore Throat 01/02/23 [History Last Taken Unknown] clotrimazole-betamethasone 1 %-0.05 % topical cream 1 applic topical QHS 01/02/23 [History Last Taken Unknown] darbepoetin jacik in polysorbat 40 mcg/mL in polysorbate injection 40 mcg IV X1 PRN DIALYSIS 01/02/23 [History Last Taken Unknown] dextrose 40 % oral gel (Glucose Gel) 15 g PO Q15M PRN Hypoglycemia 01/02/23 [History Last Taken Unknown] diphenhydramine HCl 25 mg capsule (Benadryl) 25 mg PO DAILY PRN Itching 01/02/23 [History Last Taken Unknown] escitalopram oxalate 10 mg tablet 10 mg PO DAILY 01/02/23 [History Last Taken Unknown] famotidine 20 mg tablet 20 mg PO DAILY 01/02/23 [History Last Taken Unknown] gabapentin 300 mg capsule 300 mg PO QHS 01/02/23 [History Last Taken Unknown] glucagon 1 mg injection kit 1 mg IM PRN PRN Hypoglycemia 01/02/23 [History Last Taken Unknown] guaifenesin 100 mg/5 mL oral syrup 400 mg PO Q6H PRN Cough 01/02/23 [History Last Taken Unknown] hydralazine 25 mg tablet 25 mg PO Q8 01/02/23 [History Last Taken Unknown] insulin glargine 100 unit/mL (3 mL) subcutaneous pen (Lantus Solostar U-100 Insulin) 20 unit subcut QHS 01/02/23 [History Last Taken Unknown] insulin lispro 100 unit/mL subcutaneous pen (Humalog KwikPen (U-100) Insulin) 3 unit subcut TID 01/02/23 [History Last Taken Unknown] insulin lispro 100 unit/mL subcutaneous pen (Humalog KwikPen (U-100) Insulin) See Rx Instructions .Route .COMPLEX 01/02/23 [History Last Taken Unknown] levothyroxine 150 mcg capsule 150 mcg PO DAILY 01/02/23 [History Last Taken Unknown] melatonin 3 mg tablet 3 mg PO QHS 01/02/23 [History Last Taken Unknown] midodrine 10 mg tablet 10 mg PO DAILY 01/02/23 [History Last Taken Unknown] nystatin 100,000 unit/gram topical powder 1 applic topical PRN PRN Skin Intervention 01/02/23 [History Last Taken Unknown] ondansetron HCl 4 mg tablet 4 mg PO Q6H PRN Nausea 01/02/23 [History Last Taken Unknown] oxycodone 10 mg tablet 10 mg PO Q4H PRN Pain 01/02/23 [History Last Taken Unknown] oxycodone 5 mg tablet 5 mg PO Q4H PRN Pain 01/02/23 [History Last Taken Unknown] pantoprazole 40 mg tablet,delayed release 40 mg PO DAILY 01/02/23 [History Last Taken Unknown] polyethylene glycol 3350 17 gram oral powder packet 17 g PO DAILY 01/02/23 [History Last Taken Unknown] prednisone 5 mg tablet 5 mg PO DAILY 01/02/23 [History Last Taken Unknown] promethazine 12.5 mg tablet 12.5 mg PO Q8H PRN Nausea 01/02/23 [History Last Taken Unknown] sennosides 8.6 mg-docusate sodium 50 mg capsule (Senna Plus) 1 tab-cap PO BID PRN Constipation 01/02/23 [History Last Taken Unknown] sodium phosphates 19 gram-7 gram/118 mL enema (Fleet Enema) 118 ml [place] DAILY PRN Constipation 01/02/23 [History Last Taken Unknown] tacrolimus 1 mg capsule, immediate-release (Prograf) 2 mg PO Q12H 01/02/23 [History Last Taken Unknown] trazodone 50 mg tablet 50 mg PO QHS 01/02/23 [History Last Taken Unknown] Allergy/AdvReac Type Severity Reaction Status Date / Time No Known Allergies Allergy Verified 01/01/23 23:38 Family History (Updated 01/02/23 @ 01:[address] Olga Moore MD) Mother Hypertension Diabetes Father Hypertension Diabetes Surgical History (Updated 01/02/23 @ 01:[address] Olga Moore MD) S/P colostomy S/P foot surgery S/P unilateral above knee amputation Social History (Updated 01/02/23 @ 01:[address] Olga Moore MD) housing: [facility] Smoking Status: Never smoker alcohol intake: never substance use type: does not use ROS ROS Narrative Negative except above Physical Exam Narrative Alert awake oriented x 3 no obvious distress no pallor no icterus no JVD s1s2 no murmurs lungs clear abdomen soft no organomegaly no edema no cyanosis Lab / Micro Data 01/02/23 07:50 01/02/23 07:50 Labs: Laboratory Results - last 24 hr 01/02/23 00:05: WBC 20.7 H, RBC 3.72 L, Hgb 10.5 L, Hct 34.8 L, MCV 93.5, MCH 28.2, MCHC 30.2 L, RDW Std Deviation 54.9 H, RDW Coeff of Shanta 15.9 H, Plt Count 250, MPV 10.8, Immature Gran % (Auto) 0.700, Neut % (Auto) 85.5 H, Lymph % (Auto) 8.4 L, [place] % (Auto) 4.1, Eos % (Auto) 1.0, Baso % (Auto) 0.3, Absolute Neuts (auto) 17.7 H, Absolute Lymphs (auto) 1.74, Nucleated RBC % 0, Sodium 136, Potassium 6.0 H*, Chloride 103, Carbon Dioxide 23.0, Anion Gap 10, BUN 60 H, Creatinine 6.23 H, Estim Creat Clear Calc 18.70, Est GFR (MDRD) Af Amer 13 L, Est GFR (MDRD) Non-Af 11 L, BUN/Creatinine Ratio 9.6 L, Glucose 109 H, Lactic Acid 1.9, Calcium 8.4 L, Phosphorus 4.5, Procalcitonin 0.12 H 01/02/23 00:52: Potassium 5.5 H, Phosphorus TNP, Magnesium 1.6 01/02/23 02:26: POC Glucose 70 L 01/02/23 07:50: WBC 25.0 H, RBC 3.51 L, Hgb 10.0 L, Hct 33.4 L, MCV 95.2 H, MCH 28.5, MCHC 29.9 L, RDW Std Deviation 56.8 H, RDW Coeff of Shanta 16.3 H, Plt Count 220, MPV 10.6, Immature Gran % (Auto) 0.700, Neut % (Auto) 85.2 H, Lymph % (Auto) 8.2 L, [place] % (Auto) 4.9, Eos % (Auto) 0.6, Baso % (Auto) 0.4, Absolute Neuts (auto) 21.3 H, Absolute Lymphs (auto) 2.04, Nucleated RBC % 0, Sodium 134 L, Potassium 5.3 H, Chloride 103, Carbon Dioxide 25.0, Anion Gap 6, BUN 60 H, Creatinine 6.39 H, Estim Creat Clear Calc 18.23, Est GFR (MDRD) Af Amer 13 L, Est GFR (MDRD) Non-Af 11 L, BUN/Creatinine Ratio 9.4 L, Glucose 119 H, Calcium 8.5, Total Bilirubin 0.40, AST 22, ALT 26, Alkaline Phosphatase 374 H, Total Protein 7.8, Albumin 1.7 L, Globulin 6.1 H, Albumin/Globulin Ratio 0.3 L Micro: Microbiology 01/02/23 00:28 Mucosa - Nasopharyngeal Respiratory Panel (PCR) - Final 01/02/23 00:28 Nasal Secretion SARS-CoV-2 & FLU Antigen (Rapid) - Final Radiology Impression Chest X-Ray 01/02/23 00:22 IMPRESSION: No confluent airspace disease. Suspected mild cardiomegaly. Electronically Signed: Chris Kaur MD at 1:09 EDT ,
--- NOTE | 2023-01-02 12:08 | WOUNDNOTE ---
assessed the left BKA incision. there were [address] these were removed at this time. no redness or drainage noted. pt tolerated well.
--- NOTE | 2023-01-02 12:09 | WOUNDNOTE ---
Colostomy appliance changed. stoma is pink. sits at skin level. peristomal skin intact. cleansed with soap and water. pat dry. applied a new 2 piece Izzy appliance with stoma paste. pt tolerated well. will monitor.
--- NOTE | 2023-01-02 12:40 | WOUNDNOTE ---
wound photo: right foot
--- NOTE | 2023-01-02 12:40 | WOUNDNOTE ---
wound photo: left stump
--- NOTE | 2023-01-02 12:41 | WOUNDNOTE ---
wound photo: left ischium
[2023-01-02 12:51] LABS: Bedside Glucose 160 mg/dL (74-106)
[2023-01-02 12:51] LABS: Bedside Glucose 107 mg/dL (74-106)
--- NOTE | 2023-01-02 13:26 | PCM.RX.CS ---
Consult Antibiotic Management Pharmacy has been consulted to manage selected antiobiotic: Vancomycin Type of Intervention Type of Consult: New start Suspected Infection Suspected Infection: Pneumonia Prior Doses of Antibiotics Prior Doses of Antibiotics Received/Current Regimen: received vanc 1750mg IV x1 in E.R. starting at 02:15 this morning Labs Labs: Sodium 134 mmol/L (136-145) L 01/02/23 07:50 Potassium 5.3 mmol/L (3.5-5.1) H 01/02/23 07:50 Chloride 103 mmol/L (98-107) 01/02/23 07:50 Carbon Dioxide 25.0 mmol/L (21.0-32.0) 01/02/23 07:50 Anion Gap 6 (5-15) 01/02/23 07:50 BUN 60 mg/dL (7-18) H 01/02/23 07:50 Creatinine 6.39 mg/dL (0.70-1.30) H 01/02/23 07:50 Est GFR (MDRD) Af Amer 13 mL/min (>60) L 01/02/23 07:50 Est GFR (MDRD) Non-Af 11 mL/min (>60) L 01/02/23 07:50 BUN/Creatinine Ratio 9.4 RATIO (10-20) L 01/02/23 07:50 Glucose 119 mg/dL (74-106) H 01/02/23 07:50 Microbiology Microbiology: Microbiology 01/02/23 00:28 Mucosa - Nasopharyngeal Respiratory Panel (PCR) - Final 01/02/23 00:28 Nasal Secretion SARS-CoV-2 & FLU Antigen (Rapid) - Final Dosing Weight Weight used for dosin kg Estimated Creatinine Clearance Estimated Creatinine Clearance: on HD Goal Trough Goal Trough: 15-20 mcg/mL Pharmacy Plan for Drug Dosing Pharmacy Plan for Drug Dosing: The patient received a large vanc dose in E.R. early this morning so will not order another dose today. It appears the patient will be getting dialysis today since it was missed yesterday. Unclear if the patient will be getting dialysis again tomorrow even though it appears the usual schedule is //. Will order a vanc random level to be drawn tomorrow morning to determine if a dose should be given tomorrow after dialysis. Pharmacy Service will continue to monitor and adjust dosing as required. Follow-Up Labs Follow-Up Labs: Trough: Vancomycin ((random level)) Date/Time Labs Ordered Labs to be done on [date and time ordered]: 01/03/23 06:00
--- NOTE | 2023-01-02 13:48 | CON.PCM.ID_ITS ---
Assessment & Plan Assessment/Plan (1) Chronic kidney disease with end stage renal failure on dialysis: (2) Pyrexia: PLAN: Viral panel neg. Bcx pending. No focal symptoms, wounds all appear to be doing ok. Cont empiric vanc/zosyn for now. Procalcitonin was only 0.12. On tacro/pred for failed kidney transplant. Will follow, thank you HPI Consult Data Date of Consult: 01/02/23 HPI Narrative Reason for Consultation: fever HPI Narrative: CHINA GUILLEN, is a 37 M with failed kidney transplant, on HD via LUE fistula, incomplete paraplegia and L BKA, presented yesterday with sudden onset fever. No issues with fistula, no cough/SOB, abd pain, congestion, sore throat, change in taste/smell, or dysuria. Has chronic wounds, no recent changes. Came to ED, admitted on vanc/zosyn. Feeling ok today. Full ROS performed and neg except as noted above. [facility] Medical History Acute on chronic systolic (congestive) heart failure Acute pulmonary edema Acute respiratory failure with hypoxia Anemia in chronic kidney disease Dependence on renal dialysis Depression End stage renal disease Gastro-esophageal reflux disease without esophagitis Hyperlipemia Hypertensive heart and chronic kidney disease with heart failure and stage 1 through stage 4 chronic kidney disease, or unspecified chronic kidney disease Hypothyroidism Kidney transplant failure Neuromuscular dysfunction of bladder, unspecified Other acute osteomyelitis, left ankle and foot Other pericardial effusion (noninflammatory) Other pulmonary embolism without acute cor pulmonale Paraplegia, incomplete Pressure ulcer of left heel, unspecified stage Type 2 diabetes mellitus with diabetic chronic kidney disease Home Medications acetaminophen 325 mg tablet 650 mg PO Q4H PRN PAIN/FEVER 01/02/23 [History Last Taken Unknown] acetaminophen 650 mg tablet 650 mg PO Q4H PRN PAIN/FEVER 01/02/23 [History Last Taken Unknown] aluminum-magnesium hydroxide 225 mg-200 mg/5 mL oral suspension 30 ml PO Q4H PRN PRN GI DISTRESS 01/02/23 [History Last Taken Unknown] apixaban 5 mg tablet (Eliquis) 5 mg PO BID 01/02/23 [History Last Taken Unknown] ascorbic acid (vitamin C) 500 mg tablet 500 mg PO DAILY 01/02/23 [History Last Taken Unknown] atorvastatin 40 mg tablet 40 mg PO QHS 01/02/23 [History Last Taken Unknown] bisacodyl 10 mg rectal suppository 10 mg [place] DAILY PRN Constipation 01/02/23 [History Last Taken Unknown] carvedilol 12.5 mg tablet 12.5 mg PO BID 01/02/23 [History Last Taken Unknown] cetylpyridinium chloride 1 yunior mucous membrane Q3H PRN Sore Throat 01/02/23 [History Last Taken Unknown] clotrimazole-betamethasone 1 %-0.05 % topical cream 1 applic topical QHS 01/02/23 [History Last Taken Unknown] darbepoetin jacki in polysorbat 40 mcg/mL in polysorbate injection 40 mcg IV X1 PRN DIALYSIS 01/02/23 [History Last Taken Unknown] dextrose 40 % oral gel (Glucose Gel) 15 g PO Q15M PRN Hypoglycemia 01/02/23 [History Last Taken Unknown] diphenhydramine HCl 25 mg capsule (Benadryl) 25 mg PO DAILY PRN Itching 01/02/23 [History Last Taken Unknown] escitalopram oxalate 10 mg tablet 10 mg PO DAILY 01/02/23 [History Last Taken Unknown] famotidine 20 mg tablet 20 mg PO DAILY 01/02/23 [History Last Taken Unknown] gabapentin 300 mg capsule 300 mg PO QHS 01/02/23 [History Last Taken Unknown] glucagon 1 mg injection kit 1 mg IM PRN PRN Hypoglycemia 01/02/23 [History Last Taken Unknown] guaifenesin 100 mg/5 mL oral syrup 400 mg PO Q6H PRN Cough 01/02/23 [History Last Taken Unknown] hydralazine 25 mg tablet 25 mg PO Q8 01/02/23 [History Last Taken Unknown] insulin glargine 100 unit/mL (3 mL) subcutaneous pen (Lantus Solostar U-100 Insulin) 20 unit subcut QHS 01/02/23 [History Last Taken Unknown] insulin lispro 100 unit/mL subcutaneous pen (Humalog KwikPen (U-100) Insulin) 3 unit subcut TID 01/02/23 [History Last Taken Unknown] insulin lispro 100 unit/mL subcutaneous pen (Humalog KwikPen (U-100) Insulin) See Rx Instructions .Route .COMPLEX 01/02/23 [History Last Taken Unknown] levothyroxine 150 mcg capsule 150 mcg PO DAILY 01/02/23 [History Last Taken Unknown] melatonin 3 mg tablet 3 mg PO QHS 01/02/23 [History Last Taken Unknown] midodrine 10 mg tablet 10 mg PO DAILY 01/02/23 [History Last Taken Unknown] nystatin 100,000 unit/gram topical powder 1 applic topical PRN PRN Skin Intervention 01/02/23 [History Last Taken Unknown] ondansetron HCl 4 mg tablet 4 mg PO Q6H PRN Nausea 01/02/23 [History Last Taken Unknown] oxycodone 10 mg tablet 10 mg PO Q4H PRN Pain 01/02/23 [History Last Taken Unknown] oxycodone 5 mg tablet 5 mg PO Q4H PRN Pain 01/02/23 [History Last Taken Unknown] pantoprazole 40 mg tablet,delayed release 40 mg PO DAILY 01/02/23 [History Last Taken Unknown] polyethylene glycol 3350 17 gram oral powder packet 17 g PO DAILY 01/02/23 [History Last Taken Unknown] prednisone 5 mg tablet 5 mg PO DAILY 01/02/23 [History Last Taken Unknown] promethazine 12.5 mg tablet 12.5 mg PO Q8H PRN Nausea 01/02/23 [History Last Taken Unknown] sennosides 8.6 mg-docusate sodium 50 mg capsule (Senna Plus) 1 tab-cap PO BID PRN Constipation 01/02/23 [History Last Taken Unknown] sodium phosphates 19 gram-7 gram/118 mL enema (Fleet Enema) 118 ml [place] DAILY PRN Constipation 01/02/23 [History Last Taken Unknown] tacrolimus 1 mg capsule, immediate-release (Prograf) 2 mg PO Q12H 01/02/23 [History Last Taken Unknown] trazodone 50 mg tablet 50 mg PO QHS 01/02/23 [History Last Taken Unknown] Allergy/AdvReac Type Severity Reaction Status Date / Time No Known Allergies Allergy Verified 01/01/23 23:38 Family History Mother Hypertension Diabetes Father Hypertension Diabetes Surgical History S/P colostomy S/P foot surgery S/P unilateral above knee amputation Social History housing: [facility] Smoking Status: Never smoker alcohol intake: never substance use type: does not use Physical Exam Const alert, oriented x3 and no apparent distress General Appearance: cooperative HEENT normocephalic and head/scalp atraumatic Eyes PERRL and EOMs intact bilaterally Neck supple and No nodes Resp normal air movement and clear to auscultation bilaterally Cardio regular rate, regular rhythm and no murmurs GI soft to palpation, non-tender and non-distended Extremity General Extremity: edema Skin Skin Narrative: reviewed wound photos Neuro CN's II-XII intact bilaterally Lab / Micro Data Attestation: I reviewed the patient's lab results. 01/02/23 07:50 01/02/23 07:50 Labs: Laboratory Results - last 24 hr 01/02/23 00:05: WBC 20.7 H, RBC 3.72 L, Hgb 10.5 L, Hct 34.8 L, MCV 93.5, MCH 28.2, MCHC 30.2 L, RDW Std Deviation 54.9 H, RDW Coeff of Shanta 15.9 H, Plt Count 250, MPV 10.8, Immature Gran % (Auto) 0.700, Neut % (Auto) 85.5 H, Lymph % (Auto) 8.4 L, [place] % (Auto) 4.1, Eos % (Auto) 1.0, Baso % (Auto) 0.3, Absolute Neuts (auto) 17.7 H, Absolute Lymphs (auto) 1.74, Nucleated RBC % 0, Sodium 136, Potassium 6.0 H*, Chloride 103, Carbon Dioxide 23.0, Anion Gap 10, BUN 60 H, Creatinine 6.23 H, Estim Creat Clear Calc 18.70, Est GFR (MDRD) Af Amer 13 L, Est GFR (MDRD) Non-Af 11 L, BUN/Creatinine Ratio 9.6 L, Glucose 109 H, Lactic Acid 1.9, Calcium 8.4 L, Phosphorus 4.5, Procalcitonin 0.12 H 01/02/23 00:52: Potassium 5.5 H, Phosphorus TNP, Magnesium 1.6 01/02/23 02:26: POC Glucose 70 L 01/02/23 07:50: WBC 25.0 H, RBC 3.51 L, Hgb 10.0 L, Hct 33.4 L, MCV 95.2 H, MCH 28.5, MCHC 29.9 L, RDW Std Deviation 56.8 H, RDW Coeff of Shanta 16.3 H, Plt Count 220, MPV 10.6, Immature Gran % (Auto) 0.700, Neut % (Auto) 85.2 H, Lymph % (Auto) 8.2 L, [place] % (Auto) 4.9, Eos % (Auto) 0.6, Baso % (Auto) 0.4, Absolute Neuts (auto) 21.3 H, Absolute Lymphs (auto) 2.04, Nucleated RBC % 0, Sodium 134 L, Potassium 5.3 H, Chloride 103, Carbon Dioxide 25.0, Anion Gap 6, BUN 60 H, Creatinine 6.39 H, Estim Creat Clear Calc 18.23, Est GFR (MDRD) Af Amer 13 L, E st GFR (MDRD) Non-Af 11 L, BUN/Creatinine Ratio 9.4 L, Glucose 119 H, Calcium 8.5, Total Bilirubin 0.40, AST 22, ALT 26, Alkaline Phosphatase 374 H, Total Protein 7.8, Albumin 1.7 L, Globulin 6.1 H, Albumin/Globulin Ratio 0.3 L 01/02/23 09:47: POC Glucose 107 H 01/02/23 11:47: POC Glucose 160 H Micro: Microbiology 01/02/23 00:28 Mucosa - Nasopharyngeal Respiratory Panel (PCR) - Final 01/02/23 00:28 Nasal Secretion SARS-CoV-2 & FLU Antigen (Rapid) - Final Radiology Impression Chest X-Ray 01/02/23 00:22 IMPRESSION: No confluent airspace disease. Suspected mild cardiomegaly. Electronically Signed: Chris Kaur MD at 1:09 EDT ,
[2023-01-02] MEDS: Menthol/Lanolin/Calamine/Znox 113 GM Tube 1 APPLIC TOPICAL ×3 (14:40→22:31)
--- NOTE | 2023-01-02 15:14 | PCM.HOSP.N ---
Hospitalist Note Patient was seen and examined today, I had infectious diseases see the patient today, there is not an obvious site of infection at this time, empiric antibiotics are being given. Patient complains of surgical site pain from his left below the knee amputation site. There does not appear to be any drainage from the site. Site does not look red. Labs will be monitored, continue present treatment
[2023-01-02 16:59] LABS: Bedside Glucose 150 mg/dL (74-106)
--- NOTE | 2023-01-02 17:12 | DIALYSIS ---
Hemodialysis complete via left arm AV fistula with 3 liters fluid removed. Fistula remains positive for thrill and bruit after needles removed and stasis achieved. Pt tolerated treatment without difficulty.
[2023-01-02] MEDS: Carvedilol 12.5 MG Tablet PO (17:50)
[2023-01-02] MEDS: Clotrimazole/Betamethasone 1 Tube 1 APPLIC TOPICAL (22:31)
[2023-01-02] MEDS: traZODone 50 MG Tablet PO (22:32)
[2023-01-02] MEDS: hydrALAZINE 25 MG Tablet PO (22:32)
[2023-01-02] MEDS: Insulin Lispro 100 UNIT/ML INSULN.PEN SC (22:33)
[2023-01-02] MEDS: Gabapentin 300 MG Capsule PO (22:33)
[2023-01-02] MEDS: Insulin Glargine-YFGN 100 UNIT/ML Pen 20 UNIT SC (22:33)
[2023-01-02] MEDS: MELATONIN 3 MG TABLET PO (22:33)
[2023-01-02] MEDS: Atorvastatin Calcium 40 MG Tablet PO (22:33)
[2023-01-02 23:01] LABS: Bedside Glucose 184 mg/dL (74-106)
[2023-01-03] VITALS (10 sets, daily range): BP systolic 100–142; BP diastolic 58–90; PULSE 70–89; RESP 12–18; TEMP 36.1–36.6; O2SAT 2–100; BMI 33.8
[2023-01-03 05:44] LABS: Absolute Lymphocyte Count 1.85 X10^3/uL (0.83-4.51); Basophil# 0.06 X10^3/uL; Basophil% 0.5 % (0-1); Eosinophil# 0.25 X10^3/uL; Hematocrit 32.6 % (40-54); Hemoglobin 9.5 g/dL (13.0-16.5); Lymphocyte # 1.85 X10^3/ul (0.83-4.51); Lymphocyte % 15.1 % (19-41); Mean Corp Hgb Conc 29.1 g/dL (32-36); Mean Corpuscular Hgb 28.1 pg (27.0-32.0); Mean Corpuscular Volume 96.4 fL (80-94); Mean Platelet Vol. 10.2 fl (6.2-12.0); Monocyte# 1.04 X10^3/uL; Monocyte% 8.5 % (0-10); NRBC Flagged by Analyzer 0 % (0-5); Neutrophil # 9.04 X10^3/uL (2.7-7.7); Neutrophil % 73.6 % (47-70); Platelet Count 212 K/mm3 (150-450); RBC Distribution Width CV 16.2 % (11.6-14.6); RBC Distribution Width SD 57.6 fl (35.1-43.9); Red Blood Count 3.38 M/mm3 (4.6-6.2); White Blood Count 12.3 K/mm3 (4.4-11.0)
[2023-01-03] MEDS: Levothyroxine 150 MCG Tablet PO (06:23)
[2023-01-03 06:25] LABS: ALB/GLOB Ratio 0.3 RATIO (0.9-2.4); AST(SGOT) 26 U/L (15-37); Alanine Aminotransfer ALT/SGPT 27 U/L (16-61); Albumin, Serum 1.6 g/dL (3.2-5.0); Alkaline Phosphatase 341 U/L (45-117); Anion Gap 5 (5-15); BUN 37 mg/dL (7-18); BUN/Creat Ratio 7.7 RATIO (10-20); Calcium,Total 8.6 mg/dL (8.5-10.1); Chloride 103 mmol/L (98-107); EST Glomerular Filtration Rate 15 mL/min (>60); Est Glom Filt Rate - Afr Amer 18 mL/min (>60); Estimated Creatinine Clearance 24.28 ml/min; Glucose 163 mg/dL (74-106); Potassium 4.3 mmol/L (3.5-5.1); Protein, Total 7.6 g/dL (6.4-8.2); Sodium Level 136 mmol/L (136-145)
--- NOTE | 2023-01-03 08:14 | PCM.PN.REN ---
Subjective Subjective Resting in bed. No complaints. No overnight events. Objective Data Objective Data Vital Signs: Vital Signs Temp Pulse Resp BP Pulse Ox O2 Del Method O2 Flow Rate 97.4 F L 70 16 100/63 98 Nasal Cannula 3 01/03/23 03:00 01/03/23 06:25 01/03/23 05:00 01/03/23 06:25 01/03/23 07:30 01/03/23 07:30 01/03/23 07:30 FiO2 35 01/03/23 05:00 Oxygen Flow Rate (L/min) 3 Oxygen Delivery Method Nasal Cannula Weight: 116.4 kg Body Mass Index (BMI) 33.8 Intake & Output: Intake and Output for Last 24 Hours 01/01/23 01/02/23 01/03/23 23:59 23:59 23:59 Intake Total 1301.67 / 1301.67 Output Total 3400 / 3800 675 / 675 Balance -2098.33 / -2498.33 -675 / -675 Lab / Micro Data 01/03/23 05:35 01/03/23 05:35 Labs: Laboratory Results - last 24 hr 01/02/23 07:50: Sodium 134 L, Potassium 5.3 H, Chloride 103, Carbon Dioxide 25.0, Anion Gap 6, BUN 60 H, Creatinine 6.39 H, Estim Creat Clear Calc 18.23, Est GFR (MDRD) Af Amer 13 L, Est GFR (MDRD) Non-Af 11 L, BUN/Creatinine Ratio 9.4 L, Glucose 119 H, Calcium 8.5, Total Bilirubin 0.40, AST 22, ALT 26, Alkaline Phosphatase 374 H, Total Protein 7.8, Albumin 1.7 L, Globulin 6.1 H, Albumin/Globulin Ratio 0.3 L 01/02/23 09:47: POC Glucose 107 H 01/02/23 11:47: POC Glucose 160 H 01/02/23 16:42: POC Glucose 150 H 01/02/23 22:29: POC Glucose 184 H 01/03/23 05:35: WBC 12.3 H, RBC 3.38 L, Hgb 9.5 L, Hct 32.6 L, MCV 96.4 H, MCH 28.1, MCHC 29.1 L, RDW Std Deviation 57.6 H, RDW Coeff of Sahnta 16.2 H, Plt Count 212, MPV 10.2, Immature Gran % (Auto) 0.300, Neut % (Auto) 73.6 H, Lymph % (Auto) 15.1 L, [place] % (Auto) 8.5, Eos % (Auto) 2.0, Baso % (Auto) 0.5, Absolute Neuts (auto) 9.0 H, Absolute Lymphs (auto) 1.85, Nucleated RBC % 0, Sodium 136, Potassium 4.3, Chloride 103, Carbon Dioxide 28.0, Anion Gap 5, BUN 37 H, Creatinine 4.80 H, Estim Creat Clear Calc 24.28, Est GFR (MDRD) Af Amer 18 L, Est GFR (MDRD) Non-Af 15 L, BUN/Creatinine Ratio 7.7 L, Glucose 163 H, Calcium 8.6, Total Bilirubin 0.40, AST 26, ALT 27, Alkaline Phosphatase 341 H, Total Protein 7.6, Albumin 1.6 L, Globulin 6.0 H, Albumin/Globulin Ratio 0.3 L, Random Vancomycin 15.0 Micro: Microbiology 01/02/23 00:28 Mucosa - Nasopharyngeal Respiratory Panel (PCR) - Final 01/02/23 00:28 Nasal Secretion SARS-CoV-2 & FLU Antigen (Rapid) - Final Physical Exam Narrative Alert awake oriented x 3 no JVD s1s2 no murmurs lungs clear anteriorly, diminished breath sounds posterior bases abdomen soft, nontender no edema AV fistula left forearm positive thrill and bruit Assessment & Plan Assessment/Plan (1) Chronic kidney disease with end stage renal failure on dialysis: PLAN: ESRD on dialysis. Patient tolerated dialysis yesterday on 2K bath with fluid removal. No acute need for [employer] today. Potassium 4.3 today. We will plan for dialysis tomorrow. Patient has failed kidney transplant on tacrolimus and prednisone Anemia of chronic disease; hemoglobin 9.5. We will monitor hemoglobin trends Sepsis. Question pneumonia. Wound culture, blood cultures pending. WBC count elevated but has improved. Management as per primary. Hypertension. Blood pressures on admission were elevated but currently on low side. Patient is on carvedilol 12.5 mg twice daily, hydralazine 25 mg 3 times daily, and midodrine during dialysis. We will stop hydralazine at this time and monitor blood pressure trends.
--- NOTE | 2023-01-03 08:49 | CASEMGMT ---
Discharge Planning Patient will not need precert to return to [facility]. Selina Sylvester, Discharge Planning Asst.
[2023-01-03] MEDS: Escitalopram Oxalate 10 MG Tablet PO (09:49)
[2023-01-03] MEDS: Famotidine 20 MG Tablet PO (09:50)
[2023-01-03] MEDS: Ascorbic Acid 500 MG Tablet PO (09:50)
[2023-01-03] MEDS: predniSONE 5 MG Tablet PO (09:50)
[2023-01-03] MEDS: Carvedilol 12.5 MG Tablet PO ×2 (09:50→18:55)
[2023-01-03] MEDS: Pantoprazole Sodium 40 MG Tablet PO (09:50)
[2023-01-03] MEDS: APIXABAN 5 MG TABLET PO ×2 (09:51→21:45)
[2023-01-03] MEDS: Tacrolimus Anhydrous 1 MG Capsule 2 MG PO ×2 (09:51→21:45)
[2023-01-03] MEDS: Menthol/Lanolin/Calamine/Znox 113 GM Tube 1 APPLIC TOPICAL ×2 (09:52→15:05)
[2023-01-03] MEDS: Insulin Lispro 100 UNIT/ML INSULN.PEN SC ×3 (09:54→21:55)
[2023-01-03] MEDS: 0.9% Saline Lock 10 ML Syringe IV ×3 (09:58→22:01)
[2023-01-03] MEDS: Morphine 4 MG/ML Syringe IV ×3 (09:59→21:59)
[2023-01-03 12:21] LABS: Bedside Glucose 131 mg/dL (74-106)
[2023-01-03 12:22] LABS: Hepatitis B Surface Antibody Reactive; Hepatitis B Surface Antigen Non-Reactive (Nonreactive)
--- NOTE | 2023-01-03 15:11 | PN.ID_ITS ---
Physical Exam Narrative Feeling better, no fever, no n/v/d. Const alert and no apparent distress General Appearance: cooperative Resp normal air movement and clear to auscultation bilaterally Cardio regular rate and regular rhythm GI soft to palpation, non-tender and non-distended Skin Skin Narrative: no new rash. Wounds bandaged ID ID: Route of nutrition/ use of supplements: [] Nutritional Intake: [] IV Site: [] Hurst Catheter: [] Assessment & Plan Assessment/Plan (1) Chronic kidney disease with end stage renal failure on dialysis: (2) Pyrexia: PLAN: Viral panel neg. Bcx neg so far. Most likely source seems to be infected ischial wound. Cx with staph, GNR, and strep-like so far. Cont empiric van c/zosyn for now. Procalcitonin was only 0.12. On tacro/pred for failed kidney transplant. Will follow
--- NOTE | 2023-01-03 15:32 | PCM.PN.HOSP ---
Reason for Visit Reason for Visit: Diagnoses Pneumonia, unspecified organism (01/02/23) End stage renal disease (01/02/23) Fever, unspecified (01/02/23) Dependence on renal dialysis (01/02/23) Subjective Subjective Seen and examined today, he does not complain of any shortness of breath, chills, or fever. Patient's white blood cell count is 12.3. Blood cultures are pending at this time, patient's wound culture grew out gram-negative polo, Staph aureus, and a beta-hemolytic organism. Infectious diseases is participating in his care. Objective Data Objective Data Vital Signs: Vital Signs Temp Pulse Resp BP Pulse Ox O2 Del Method O2 Flow Rate 98 F 84 14 142/90 H 98 Nasal Cannula 2 01/03/23 15:16 01/03/23 15:16 01/03/23 15:16 01/03/23 15:16 01/03/23 15:16 01/03/23 15:16 01/03/23 15:16 FiO2 35 01/03/23 05:00 Oxygen Flow Rate (L/min) 2 Oxygen Delivery Method Nasal Cannula Weight: 116.4 kg Body Mass Index (BMI) 33.8 Intake & Output: Intake and Output for Last 24 Hours 01/01/23 01/02/23 01/03/23 23:59 23:59 23:59 Intake Total 1351.67 / 1351.67 720 / 720 Output Total 3400 / 3800 675 / 675 Balance -2048.33 / -2448.33 45 / 45 Lab / Micro Data 01/03/23 05:35 01/03/23 05:35 Labs: Laboratory Results - last 24 hr 01/02/23 16:42: POC Glucose 150 H 01/02/23 22:29: POC Glucose 184 H 01/03/23 05:35: WBC 12.3 H, RBC 3.38 L, Hgb 9.5 L, Hct 32.6 L, MCV 96.4 H, MCH 28.1, MCHC 29.1 L, RDW Std Deviation 57.6 H, RDW Coeff of Shanta 16.2 H, Plt Count 212, MPV 10.2, Immature Gran % (Auto) 0.300, Neut % (Auto) 73.6 H, Lymph % (Auto) 15.1 L, [place] % (Auto) 8.5, Eos % (Auto) 2.0, Baso % (Auto) 0.5, Absolute Neuts (auto) 9.0 H, Absolute Lymphs (auto) 1.85, Nucleated RBC % 0, Sodium 136, Potassium 4.3, Chloride 103, Carbon Dioxide 28.0, Anion Gap 5, BUN 37 H, Creatinine 4.80 H, Estim Creat Clear Calc 24.28, Est GFR (MDRD) Af Amer 18 L, Est GFR (MDRD) Non-Af 15 L, BUN/Creatinine Ratio 7.7 L, Glucose 163 H, Calcium 8.6, Total Bilirubin 0.40, AST 26, ALT 27, Alkaline Phosphatase 341 H, Total Protein 7.6, Albumin 1.6 L, Globulin 6.0 H, Albumin/Globulin Ratio 0.3 L, Random Vancomycin 15.0, Hep Bs Antigen Non-Reactive, Hep Bs Antibody Reactive 01/03/23 12:04: POC Glucose 131 H Micro: Microbiology 01/02/23 11:50 Wound - Ischium Gram Stain - Final 01/02/23 11:50 Wound - Ischium Wound Culture - Preliminary Gram negative polo Staphylococcus aureus Beta hemolytic organism 01/02/23 00:28 Mucosa - Nasopharyngeal Respiratory Panel (PCR) - Final 01/02/23 00:28 Nasal Secretion SARS-CoV-2 & FLU Antigen (Rapid) - Final Physical Exam Const alert, oriented x3 and no apparent distress Constitutional Narrative: Patient appears older than stated age General Appearance: cooperative, well kempt and well developed Orientation / Consciousness: awake, oriented to person, oriented to place and oriented to time HEENT normocephalic, head/scalp atraumatic and moist oral mucous membranes Eyes PERRL, EOMs intact bilaterally and conjunctivae normal Neck supple, no JVD, thyroid normal and no carotid bruits General: trachea midline Resp normal respiratory effort, no retractions, no use of accessory muscles and clear to auscultation bilaterally Auscultation: Negative for rales, rhonchi or wheezes Cardio regular rate, regular rhythm, S1 normal heart sound, S2 normal heart sound, no murmurs, no rub and no gallops GI normal to inspection, nondistended, normoactive bowel sounds, soft to palpation, non-tender and non-distended GI Narrative: Colostomy is present Extremity Extremity Narrative: Patient has a below the knee amputation on the left which appears to be healing from recent surgery Skin Skin Narrative: Patient has a pressure injury over the ischial area on the left, the wound area appears to be an open area approximately 3 to 4 cm in diameter with macerated skin around the area, patient has a dry skin area over the plantar surface of the right foot, there is an area that is approximately 3 to 4 cm in diameter missing skin that is superficial over the plantar surface of the right foot Neuro oriented x3, CN's II-XII intact bilaterally, no focal motor deficits and no sensory deficits noted Sensorium / Orientation: awake, alert, oriented to person and oriented to place Speech: speech normal Psych Psych Narrative: Patient has a flat affect Assessment & Plan Assessment/Plan (1) Pyrexia: PLAN: Plan 1 fever of unknown origin with elevated white blood cell count-possible infected left ischial wound, infectious diseases is managing antibiotic coverage at this time #2 end-stage renal disease requiring dialysis-nephrology is participating in his care #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-complicates care, medical course, recovery, and prognosis #4 type 2 diabetes-blood sugars will be monitored, sliding scale insulin will be administered per fingerstick blood sugars, patient is currently on basal insulin #5 hypothyroidism-patient is on Synthroid #6 chronic use of 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 secondary to past history of pulmonary embolism #7 chronic anxiety/depression-patient is on Lexapro #8 chronic anemia-secondary to chronic end-stage renal disease, labs will be monitored Total clinical time spent by myself addressing the patient's medical issues, reviewing all of his data, and collaborating with patient's care team: 35 minutes Charges/Coding Visit Charges Inpatient E&M: 56608 Subs Hosp L2
[2023-01-03] MEDS: Ondansetron ODT 4 MG Tablet PO (16:30)
[2023-01-03 16:48] LABS: Bedside Glucose 138 mg/dL (74-106)
[2023-01-03 16:49] LABS: Bedside Glucose 148 mg/dL (74-106)
[2023-01-03] MEDS: MELATONIN 3 MG TABLET PO (21:43)
[2023-01-03] MEDS: Atorvastatin Calcium 40 MG Tablet PO (21:44)
[2023-01-03] MEDS: traZODone 50 MG Tablet PO (21:45)
[2023-01-03] MEDS: Gabapentin 300 MG Capsule PO (21:49)
[2023-01-03] MEDS: Insulin Glargine-YFGN 100 UNIT/ML Pen 20 UNIT SC (21:54)
[2023-01-03 22:14] LABS: Bedside Glucose 202 mg/dL (74-106)
[2023-01-03] MEDS: Clotrimazole/Betamethasone 1 Tube 1 APPLIC TOPICAL (22:36)
[2023-01-04] VITALS (7 sets, daily range): BP systolic 109–132; BP diastolic 75–84; PULSE 77–88; RESP 12–18; TEMP 36.7–36.9; O2SAT 93–98; BMI 34.2
[2023-01-04] MEDS: Morphine 4 MG/ML Syringe IV ×2 (02:04→10:27)
[2023-01-04] MEDS: proCHLORPERazine 10 MG/2 ML Vial 5 MG IV ×2 (02:05→10:27)
[2023-01-04 05:07] LABS: Hepatitis B Core AB IgM Negative (Negative)
[2023-01-04] MEDS: Levothyroxine 150 MCG Tablet PO (05:58)
[2023-01-04 06:40] LABS: Absolute Lymphocyte Count 2.07 X10^3/uL (0.83-4.51); Absolute Neutrophil Count 6.1 X10^3/uL (2.0-7.7); Basophil# 0.08 X10^3/uL; Basophil% 0.8 % (0-1); Eosinophil# 0.38 X10^3/uL; Eosinophils% 3.9 % (0-5); Hematocrit 31.3 % (40-54); Hemoglobin 9.2 g/dL (13.0-16.5); Lymphocyte # 2.07 X10^3/ul (0.83-4.51); Lymphocyte % 21.4 % (19-41); Mean Corp Hgb Conc 29.4 g/dL (32-36); Mean Corpuscular Volume 95.1 fL (80-94); Mean Platelet Vol. 10.2 fl (6.2-12.0); Monocyte# 0.99 X10^3/uL; Monocyte% 10.2 % (0-10); NRBC Flagged by Analyzer 0 % (0-5); Neutrophil # 6.11 X10^3/uL (2.7-7.7); Neutrophil % 63.3 % (47-70); Platelet Count 254 K/mm3 (150-450); RBC Distribution Width CV 16.1 % (11.6-14.6); Red Blood Count 3.29 M/mm3 (4.6-6.2); White Blood Count 9.7 K/mm3 (4.4-11.0)
[2023-01-04 07:21] LABS: Anion Gap 7 (5-15); BUN 43 mg/dL (7-18); BUN/Creat Ratio 7.6 RATIO (10-20); Calcium,Total 8.3 mg/dL (8.5-10.1); Chloride 103 mmol/L (98-107); Creatinine, Serum 5.66 mg/dL (0.70-1.30); EST Glomerular Filtration Rate 12 mL/min (>60); Est Glom Filt Rate - Afr Amer 15 mL/min (>60); Estimated Creatinine Clearance 20.59 ml/min; Glucose 195 mg/dL (74-106); Potassium 4.6 mmol/L (3.5-5.1); Sodium Level 136 mmol/L (136-145)
[2023-01-04 07:28] LABS: Vancomycin, Random Level 14.2 ug/mL (0.0-15.0)
--- NOTE | 2023-01-04 08:27 | PN.RENAL_ITS ---
Subjective Subjective Resting in bed. No overnight events. Reports feeling better. Objective Data Objective Data Vital Signs: Vital Signs Temp Pulse Resp BP Pulse Ox O2 Del Method O2 Flow Rate 98.3 F 84 14 109/75 93 Room Air 2 01/04/23 03:42 01/04/23 03:42 01/04/23 03:42 01/04/23 03:42 01/04/23 03:42 01/04/23 03:42 01/03/23 15:33 FiO2 30 01/04/23 00:35 Oxygen Flow Rate (L/min) 2 Oxygen Delivery Method Room Air Weight: 117.8 kg Body Mass Index (BMI) 34.2 Intake & Output: Intake and Output for Last 24 Hours 01/02/23 01/03/23 01/04/23 23:59 23:59 23:59 Intake Total 1351.67 / 1351.67 1610 / 1610 80 / 80 Output Total 3400 / 3800 1075 / 1075 355 / 355 Balance -2048.33 / -2448.33 535 / 535 -275 / -275 Lab / Micro Data 01/04/23 06:17 01/04/23 06:17 Labs: Laboratory Results - last 24 hr 01/02/23 07:50: Hep B Core IgM Ab Negative 01/03/23 05:35: Hep Bs Antigen Non-Reactive, Hep Bs Antibody Reactive 01/03/23 06:20: POC Glucose 138 H 01/03/23 12:04: POC Glucose 131 H 01/03/23 16:26: POC Glucose 148 H 01/03/23 21:53: POC Glucose 202 H 01/04/23 06:17: WBC 9.7, RBC 3.29 L, Hgb 9.2 L, Hct 31.3 L, MCV 95.1 H, MCH 28.0, MCHC 29.4 L, RDW Std Deviation 57.0 H, RDW Coeff of Shanta 16.1 H, Plt Count 254, MPV 10.2, Immature Gran % (Auto) 0.400, Neut % (Auto) 63.3, Lymph % (Auto) 21.4, [place] % (Auto) 10.2 H, Eos % (Auto) 3.9, Baso % (Auto) 0.8, Absolute Neuts (auto) 6.1, Absolute Lymphs (auto) 2.07, Nucleated RBC % 0, Sodium 136, Potassium 4.6, Chloride 103, Carbon Dioxide 26.0, Anion Gap 7, BUN 43 H, Creatinine 5.66 H, Estim Creat Clear Calc 20.59, Est GFR (MDRD) Af Amer 15 L, Est GFR (MDRD) Non-Af 12 L, BUN/Creatinine Ratio 7.6 L, Glucose 195 H, Calcium 8.3 L, Random Vancomycin 14.2 Micro: Microbiology 01/02/23 11:50 Wound - Ischium Gram Stain - Final 01/02/23 11:50 Wound - Ischium Wound Culture - Preliminary Proteus mirabilis Meth. resistant Staph. aureus Beta streptococcus 01/02/23 00:52 Blood Culture (Wb) - Right Wrist Blood Culture - Preliminary No growth in 48 hours. 01/02/23 00:05 Blood Culture (Wb) - Right Wrist Blood Culture - Preliminary No growth in 48 hours. 01/02/23 15:25 Urine Catheter - Hurst Legionella Antigen - Final 01/02/23 15:25 Urine Catheter - Hurst Streptococcus pneumoniae Antigen (M - Final 01/02/23 00:28 Mucosa - Nasopharyngeal Respiratory Panel (PCR) - Final 01/02/23 00:28 Nasal Secretion SARS-CoV-2 & FLU Antigen (Rapid) - Final Physical Exam Narrative Alert awake oriented x 3 no JVD s1s2 no murmurs lungs clear anteriorly, diminished breath sounds posterior bases abdomen soft, nontender no edema right lower leg or bilateral thighs. Left BKA AV fistula left forearm positive thrill and bruit Assessment & Plan Assessment/Plan (1) Chronic kidney disease with end stage renal failure on dialysis: PLAN: ESRD on dialysis at [facility] on Saturday, Saturday, , Saturday schedule. Patient to have dialysis today over 3.5 hours on 2K bath with fluid removal as patient/blood pressure tolerates. Patient has failed kidney transplant on tacrolimus and prednisone Anemia of chronic disease; hemoglobin 9.2. We will monitor hemoglobin trends Sepsis, possibly ischial wound is source. Wound culture MRSA. Blood cultures no growth to date. Urine culture Streptococcus pneumoniae. WBC count elevated but has improved. Management as per ID. On Vanco and Zosyn. Hypertension. Blood pressures on admission were elevated then on low side. Stopped hydralazine. Blood pressures improved. Currently on carvedilol 12.5 mg twice daily and midodrine with dialysis for history of intradialytic hypoten yordan. Hold carvedilol mornings of dialysis.
--- NOTE | 2023-01-04 09:13 | CASEMGMT ---
Discharge Planning Updates sent to [facility] via [facility]. Selina Sylvester, Discharge Planning Asst.
[2023-01-04] MEDS: Insulin Lispro 100 UNIT/ML INSULN.PEN SC ×2 (09:41)
[2023-01-04] MEDS: Tacrolimus Anhydrous 1 MG Capsule 2 MG PO (09:43)
[2023-01-04] MEDS: APIXABAN 5 MG TABLET PO (09:44)
[2023-01-04] MEDS: Escitalopram Oxalate 10 MG Tablet PO (09:44)
[2023-01-04] MEDS: Pantoprazole Sodium 40 MG Tablet PO (09:44)
[2023-01-04] MEDS: Famotidine 20 MG Tablet PO (09:44)
[2023-01-04] MEDS: Ascorbic Acid 500 MG Tablet PO (09:44)
[2023-01-04] MEDS: predniSONE 5 MG Tablet PO (09:45)
[2023-01-04] MEDS: 0.9% Saline Lock 10 ML Syringe IV (10:26)
[2023-01-04 10:36] LABS: Bedside Glucose 159 mg/dL (74-106)
--- NOTE | 2023-01-04 10:46 | CASEMGMT ---
Social Work SW spoke w/pt, let him know he may be returning to [facility] on the weekend. SW asked who he would want SW to put down as a contact for him. Pt states his brother. Green sheet placed on chart in anticipation of pt returning to [facility] on the weekend. BRIONNA Chaudhry
[2023-01-04] MEDS: Midodrine HCl 5 MG Tablet 10 MG PO (12:53)
[2023-01-04 13:30] LABS: Bedside Glucose 146 mg/dL (74-106)
--- NOTE | 2023-01-04 13:45 | PCM.PN.ID ---
Physical Exam Narrative HD today, sleeping, no fever Const no apparent distress Resp normal air movement and clear to auscultation bilaterally Cardio regular rate and regular rhythm GI soft to palpation, non-tender and non-distended Skin Skin Narrative: wounds bandaged ID ID: Route of nutrition/ use of supplements: [] Nutritional Intake: [] IV Site: [] Hurst Catheter: [] Assessment & Plan Assessment/Plan (1) Chronic kidney disease with end stage renal failure on dialysis: (2) Pyrexia: PLAN: Viral panel neg. Bcx neg so far. Most likely source seems to be infected ischial wound. Cx with MRSA, proteus, GAS. Cont empiric vanc/zosyn for now. Procalcitonin was only 0.12. On tacro/pred for failed kidney transplant. Ok for discharge with one week po doxy/augmentin, wrote rx, d/w primary team Will follow
--- NOTE | 2023-01-04 15:37 | PCM.TXEXTCAR ---
Diet Diet Order/Speech Therapy: 01/02/23 15:52 Diet: Renal - ConsCHO - Eulogio Cont Food consistency:: Regular Liquid Consistency:: Regular/Thin Dietary Modifications:: Potassium Restricted How many daily calories?: 2000 calorie Routine Orders/Code Status O2 Liters per Minute: 2 O2 Frequency: Continuous Keep PO Greater than or Equal to (%): 90 Routine Lab Work: - (Fingerstick blood sugars AC nightly, Humalog subcu per sliding scale: 200-250: 5 units, 251-300: 8 units, 301-350: 12 units) Code Status: Full Code Wound(s) left ischium: Wound Type: Pressure Injury Dressing Change: betadine moistened gauze sacrum: Wound Type: healed pressure injury Dressing Change: well padded dressing right plantar foot: Wound Type: nearly healed wound Dressing Change: betadine with dry dressing Problem/Diagnosis (1) Chronic kidney disease with end stage renal failure on dialysis: Status: Chronic Code(s): N18.6 - End stage renal disease; Z99.2 - Dependence on renal dialysis (2) Pyrexia: Status: Acute Code(s): R50.9 - Fever, unspecified (3) Decubitus ulcer of ischial area: Status: Acute Code(s): L89.309 - Pressure ulcer of unspecified buttock, unspecified stage Plan 1 Wound infection of left ischial wound #2 end-stage renal disease requiring dialysis-nephrology is participating in his care #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-complicates care, medical course, recovery, and prognosis #4 type 2 diabetes-blood sugars will be monitored, sliding scale insulin will be administered per fingerstick blood sugars, patient is currently on basal insulin #5 hypothyroidism-patient is on Synthroid #6 chronic use of 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 secondary to past history of pulmonary embolism #7 chronic anxiety/depression-patient is on Lexapro #8 chronic anemia-secondary to chronic end-stage renal disease, labs will be monitored Total clinical time spent by myself addressing the patient's medical issues, reviewing all of his data, and collaborating with patient's care team: 35 minutes Allergies/Procedures Done in Hospital Allergies No Known Allergies Allergy (Verified 01/01/23 23:38) Procedures: Dialysis Type of Care/Length of Stay Estimated LOS: More Than 30 Days Type of Care Needed: Intermediate Rehab Potential: Fair Prognosis: Fair Additional Orders/Day of Discharge H&P will serve as current which was dated: 01/02/23 Day of Discharge: 01/04/23 Dietary and Speech Recommendations Dietitian Recommendations/Changes: RD will change diet to Renal, 2000kcal CCD, Low potassium to manage medical conditions. Discharge Plan Admission Admit Date/Time: 01/02/23 01:42 Primary Reason for Your Visit: Infected left ischial wound Attending Provider: Coy Wayne Primary Care Provider: Vanessa Hutchins Consulting Providers: Olga Moore; Jabari Medeiros; Ansley Peña Discharge Orders/Prescriptions Prescriptions: New doxycycline hyclate 100 mg capsule 100 mg PO BID Qty: 14 0RF amoxicillin-pot clavulanate [Augmentin] 500-125 mg tablet 1 tab PO BID Qty: 14 0RF oxycodone 10 mg tablet 10 mg PO Q4H PRN (Reason: pain) 2 Days Qty: 12 0RF Continued atorvastatin 40 mg Tablet 40 mg PO QHS acetaminophen 325 mg Tablet 650 mg PO Q4H PRN (Reason: PAIN/FEVER) carvedilol 12.5 mg Tablet 12.5 mg PO BID Rx Instructions: must administer with a meal/food acetaminophen 650 mg Tablet 650 mg PO Q4H PRN (Reason: PAIN/FEVER) ascorbic acid (vitamin C) 500 mg Tablet 500 mg PO DAILY bisacodyl 10 mg Suppository 10 mg ND DAILY PRN (Reason: Constipation) diphenhydramine HCl [Benadryl] 25 mg Capsule 25 mg PO DAILY PRN (Reason: Itching) aluminum-magnesium hydroxide 225-200 mg/5 mL Suspension 30 ml PO Q4H PRN PRN (Reason: GI DISTRESS) darbepoetin jacki in polysorbat 40 mcg/mL Solution 40 mcg IV X1 PRN (Reason: DIALYSIS) Rx Instructions: DIALYSIS ADMINISRATION ONLY glucagon 1 mg Kit 1 mg IM PRN PRN (Reason: Hypoglycemia) dextrose [Glucose Gel] 40 % Gel 15 g PO Q15M PRN (Reason: Hypoglycemia) Rx Instructions: until symptoms of low blood sugar are controlled famotidine 20 mg Tablet 20 mg PO DAILY Fleet Enema 19-7 gram/118 mL Enema 118 ml ND DAILY PRN (Reason: Constipation) gabapentin 300 mg Capsule 300 mg PO QHS guaifenesin 100 mg/5 mL Syrup 400 mg PO Q6H PRN (Reason: Cough) cetylpyridinium chloride Lozenge 1 yunior MUCOUS MEMBRANE Q3H PRN (Reason: Sore Throat) insulin lispro [Humalog KwikPen Insulin] 100 unit/mL Insulin Pen 3 unit SUBCUT TID escitalopram oxalate 10 mg Tablet 10 mg PO DAILY Eliquis 5 mg Tablet 5 mg PO BID trazodone 50 mg Tablet 50 mg PO QHS prednisone 5 mg Tablet 5 mg PO DAILY hydralazine 25 mg Tablet 25 mg PO Q8 melatonin 3 mg Tablet 3 mg PO QHS pantoprazole 40 mg Tablet,Delayed Release (Dr/Ec) 40 mg PO DAILY clotrimazole-betamethasone 1-0.05 % Cream 1 applic TOPICAL QHS tacrolimus [Prograf] 1 mg Capsule 2 mg PO Q12H midodrine 10 mg Tablet 10 mg PO DAILY Rx Instructions: q mon, tu, wed, fri for hypotension prior to dialysis Hold BP >130/90 insulin glargine [Lantus Solostar U-100 Insulin] 100 unit/mL (3 mL) Insulin Pen 20 unit SUBCUT QHS levothyroxine 150 mcg Capsule 150 mcg PO DAILY polyethylene glycol 3350 17 gram Powder In Packet 17 g PO DAILY promethazine 12.5 mg Tablet 12.5 mg PO Q8H PRN (Reason: Nausea) ondansetron HCl 4 mg Tablet 4 mg PO Q6H PRN (Reason: Nausea) nystatin 100,000 unit/gram Powder 1 applic TOPICAL PRN PRN (Reason: Skin Intervention) Senna Plus 8.6-50 mg Capsule 1 tab-cap PO BID PRN (Reason: Constipation) Discontinued insulin lispro [Humalog KwikPen Insulin] 100 unit/mL Insulin Pen See Rx Instructions .ROUTE .COMPLEX Rx Instructions: 151-250 (1 unit) 251-350 (2 units) 351-450 (3 units) oxycodone 5 mg Tablet 5 mg PO Q4H PRN (Reason: Pain) oxycodone 10 mg Tablet 10 mg PO Q4H PRN (Reason: Pain) Referrals / Follow Up: Vanessa Hutchins MD [Primary Care Provider] - Disposition Disposition (needs filled in before D/C Order can be placed): Group Home Facility
--- NOTE | 2023-01-04 15:48 | PCM.DC.SUM ---
Providers Date of Admission: 01/02/23 Date of Discharge: 01/04/23 Primary Care Physician: Dr. Vanessa Hutchins MD Consultations 01/02/23 01:52 Consult: Nephrology Routine Consulting Provider: Ansley Peña Reason for Consult: ESRD on HD EMERGENT Consult: No MD Notified: Yes Date Notified: 01/02/23 Time Notified: 08:11 Method of Notification: Text Consult: Onc/Wound/field training manager Routine Comment: Reason for Consult:: Ischemial/sacral wound, foot wound chronic, recent L AKA 01/02/23 08:14 Consult: Infectious Disease Routine Consulting Provider: Jabari Medeiros Reason for Consult: fever EMERGENT Consult: No MD Notified: Yes Date Notified: 01/02/23 Time Notified: 08:14 Method of Notification: Verbal Reason For Visit: ? PNA/VIRAL SYNDROME Diagnosis Discharge Diagnosis (1) Chronic kidney disease with end stage renal failure on dialysis: Status: Chronic Code(s): N18.6 - End stage renal disease; Z99.2 - Dependence on renal dialysis (2) Pyrexia: Status: Acute Code(s): R50.9 - Fever, unspecified (3) Decubitus ulcer of ischial area: Status: Acute Code(s): L89.309 - Pressure ulcer of unspecified buttock, unspecified stage Plan 1 Wound infection of left ischial wound with Proteus mirabilis, methicillin-resistant Staph aureus, and strep group A #2 end-stage renal disease requiring dialysis-nephrology is participating in his care #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-complicates care, medical course, recovery, and prognosis #4 type 2 diabetes-blood sugars will be monitored, sliding scale insulin will be administered per fingerstick blood sugars, patient is currently on basal insulin #5 hypothyroidism-patient is on Synthroid #6 chronic use of 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 secondary to past history of pulmonary embolism #7 chronic anxiety/depression-patient is on Lexapro #8 chronic anemia-secondary to chronic end-stage renal disease, labs will be monitored Total clinical time spent by myself addressing the patient's medical issues, reviewing all of his data, and collaborating with patient's care team: 35 minutes Medications at Discharge Home Medications acetaminophen 325 mg tablet 650 mg PO Q4H PRN PAIN/FEVER 01/02/23 acetaminophen 650 mg tablet 650 mg PO Q4H PRN PAIN/FEVER 01/02/23 aluminum-magnesium hydroxide 225 mg-200 mg/5 mL oral suspension 30 ml PO Q4H PRN PRN GI DISTRESS 01/02/23 apixaban 5 mg tablet (Eliquis) 5 mg PO BID 01/02/23 ascorbic acid (vitamin C) 500 mg tablet 500 mg PO DAILY 01/02/23 atorvastatin 40 mg tablet 40 mg PO QHS 01/02/23 bisacodyl 10 mg rectal suppository 10 mg AK DAILY PRN Constipation 01/02/23 carvedilol 12.5 mg tablet 12.5 mg PO BID 01/02/23 cetylpyridinium chloride 1 yunior mucous membrane Q3H PRN Sore Throat 01/02/23 clotrimazole-betamethasone 1 %-0.05 % topical cream 1 applic topical QHS 01/02/23 darbepoetin jacki in polysorbat 40 mcg/mL in polysorbate injection 40 mcg IV X1 PRN DIALYSIS 01/02/23 dextrose 40 % oral gel (Glucose Gel) 15 g PO Q15M PRN Hypoglycemia 01/02/23 diphenhydramine HCl 25 mg capsule (Benadryl) 25 mg PO DAILY PRN Itching 01/02/23 escitalopram oxalate 10 mg tablet 10 mg PO DAILY 01/02/23 famotidine 20 mg tablet 20 mg PO DAILY 01/02/23 gabapentin 300 mg capsule 300 mg PO QHS 01/02/23 glucagon 1 mg injection kit 1 mg IM PRN PRN Hypoglycemia 01/02/23 guaifenesin 100 mg/5 mL oral syrup 400 mg PO Q6H PRN Cough 01/02/23 hydralazine 25 mg tablet 25 mg PO Q8 01/02/23 insulin glargine 100 unit/mL (3 mL) subcutaneous pen (Lantus Solostar U-100 Insulin) 20 unit subcut QHS 01/02/23 insulin lispro 100 unit/mL subcutaneous pen (Humalog KwikPen (U-100) Insulin) 3 unit subcut TID 01/02/23 levothyroxine 150 mcg capsule 150 mcg PO DAILY 01/02/23 melatonin 3 mg tablet 3 mg PO QHS 01/02/23 midodrine 10 mg tablet 10 mg PO DAILY 01/02/23 nystatin 100,000 unit/gram topical powder 1 applic topical PRN PRN Skin Intervention 01/02/23 ondansetron HCl 4 mg tablet 4 mg PO Q6H PRN Nausea 01/02/23 pantoprazole 40 mg tablet,delayed release 40 mg PO DAILY 01/02/23 polyethylene glycol 3350 17 gram oral powder packet 17 g PO DAILY 01/02/23 prednisone 5 mg tablet 5 mg PO DAILY 01/02/23 promethazine 12.5 mg tablet 12.5 mg PO Q8H PRN Nausea 01/02/23 sennosides 8.6 mg-docusate sodium 50 mg capsule (Senna Plus) 1 tab-cap PO BID PRN Constipation 01/02/23 sodium phosphates 19 gram-7 gram/118 mL enema (Fleet Enema) 118 ml AK DAILY PRN Constipation 01/02/23 tacrolimus 1 mg capsule, immediate-release (Prograf) 2 mg PO Q12H 01/02/23 trazodone 50 mg tablet 50 mg PO QHS 01/02/23 amoxicillin 500 mg-potassium clavulanate 125 mg tablet (Augmentin) 1 tab PO BID #14 tabs 01/04/23 doxycycline hyclate 100 mg capsule 100 mg PO BID #14 caps 01/04/23 oxycodone 10 mg tablet 10 mg PO Q4H PRN pain 2 days #12 tabs 01/04/23 Hospital Course Operations None Procedures Dialysis Summary of Care Provided Minutes Spent on Discharge: 32 Hospital Course: This 37-year-old black male was seen in the emergency room at [facility] after being transported in by ambulance from a local [facility] care facility at which she resides due to an elevated temperature. Work-up in the emergency room showed the patient's white blood cell count to be elevated, chest x-ray did not reveal pneumonia, patient was admitted to PCU and seen in consultation by infectious diseases and placed on IV antibiotics. Patient had a left ischial wound which was chronic, it was cultured and grew out Proteus mirabilis, methicillin-resistant Staph aureus, and strep group A. Patient underwent dialysis while he was hospitalized (chronic dialysis) and was seen by the wound care nurse. Patient's white count finally normalized. On 01/04/2023, patient was seen and examined:alert, oriented x3 and no apparent distress Constitutional Narrative: Patient appears older than stated age General Appearance: cooperative, well kempt and well developed Orientation / Consciousness: awake, oriented to person, oriented to place and oriented to time HEENT normocephalic, head/scalp atraumatic and moist oral mucous membranes Eyes PERRL, EOMs intact bilaterally and conjunctivae normal Neck supple, no JVD, thyroid normal and no carotid bruits General: trachea midline Resp normal respiratory effort, no retractions, no use of accessory muscles and clear to auscultation bilaterally Auscultation: Negative for rales, rhonchi or wheezes Cardio regular rate, regular rhythm, S1 normal heart sound, S2 normal heart sound, no murmurs, no rub and no gallops GI normal to inspection, nondistended, normoactive bowel sounds, soft to palpation, non-tender and non-distended GI Narrative: Colostomy is present Extremity Extremity Narrative: Patient has a below the knee amputation on the left which appears to be healing from recent surgery Skin Skin Narrative: Patient has a pressure injury over the ischial area on the left, the wound area appears to be an open area approximately 3 to 4 cm in diameter with macerated skin around the area, patient has a dry skin area over the plantar surface of the right foot, there is an area that is approximately 3 to 4 cm in diameter missing skin that is superficial over the plantar surface of the right foot Neuro oriented x3, CN's II-XII intact bilaterally, no focal motor deficits and no sensory deficits noted Sensorium / Orientation: awake, alert, oriented to person and oriented to place Speech: speech normal Psych Psych Narrative: Patient has a flat affect Patient appears stable for return to his extended care facility on 01/04/2023 Weight / BMI Weight Weight: 117.8 kg Body Mass Index (BMI) 34.2 ABG / Lab / Microbiology Data 01/04/23 06:17 01/04/23 06:17 Laboratory: Laboratory Results - last 24 hr 01/02/23 07:50: Hep B Core IgM Ab Negative 01/03/23 06:20: POC Glucose 138 H 01/03/23 16:26: POC Glucose 148 H 01/03/23 21:53: POC Glucose 202 H 01/04/23 06:17: WBC 9.7, RBC 3.29 L, Hgb 9.2 L, Hct 31.3 L, MCV 95.1 H, MCH 28.0, MCHC 29.4 L, RDW Std Deviation 57.0 H, RDW Coeff of Shanta 16.1 H, Plt Count 254, MPV 10.2, Immature Gran % (Auto) 0.400, Neut % (Auto) 63.3, Lymph % (Auto) 21.4, Deuel % (Auto) 10.2 H, Eos % (Auto) 3.9, Baso % (Auto) 0.8, Absolute Neuts (auto) 6.1, Absolute Lymphs (auto) 2.07, Nucleated RBC % 0, Sodium 136, Potassium 4.6, Chloride 103, Carbon Dioxide 26.0, Anion Gap 7, BUN 43 H, Creatinine 5.66 H, Estim Creat Clear Calc 20.59, Est GFR (MDRD) Af Amer 15 L, Est GFR (MDRD) Non-Af 12 L, BUN/Creatinine Ratio 7.6 L, Glucose 195 H, Calcium 8.3 L, Random Vancomycin 14.2 01/04/23 09:38: POC Glucose 159 H 01/04/23 12:52: POC Glucose 146 H Microbiology: Microbiology 01/02/23 11:50 Wound - Ischium Gram Stain - Final 01/02/23 11:50 Wound - Ischium Wound Culture - Final Proteus mirabilis Meth. resistant Staph. aureus Streptococcus group A 01/02/23 00:52 Blood Culture (Wb) - Right Wrist Blood Culture - Preliminary No growth in 48 hours. 01/02/23 00:05 Blood Culture (Wb) - Right Wrist Blood Culture - Preliminary No growth in 48 hours. 01/02/23 15:25 Urine Catheter - [place] Legionella Antigen - Final 01/02/23 15:25 Urine Catheter - [place] Streptococcus pneumoniae Antigen (M - Final 01/02/23 00:28 Mucosa - Nasopharyngeal Respiratory Panel (PCR) - Final 01/02/23 00:28 Nasal Secretion SARS-CoV-2 & FLU Antigen (Rapid) - Final Meaningful Use Info Meaningful Use Diagnoses (Choose all that apply): None applicable Discharge Plan Admission Admit Date/Time: 01/02/23 01:42 Primary Reason for Your Visit: Infected left ischial wound Attending Provider: Coy Wayne Primary Care Provider: Vanessa Hutchins Consulting Providers: Olga Moore; Jabari Medeiros; Casey,Jayaprakas Discharge Orders/Prescriptions Prescriptions: New doxycycline hyclate 100 mg capsule 100 mg PO BID Qty: 14 0RF amoxicillin-pot clavulanate [Augmentin] 500-125 mg tablet 1 tab PO BID Qty: 14 0RF oxycodone 10 mg tablet 10 mg PO Q4H PRN (Reason: pain) 2 Days Qty: 12 0RF Continued atorvastatin 40 mg Tablet 40 mg PO QHS acetaminophen 325 mg Tablet 650 mg PO Q4H PRN (Reason: PAIN/FEVER) carvedilol 12.5 mg Tablet 12.5 mg PO BID Rx Instructions: must administer with a meal/food acetaminophen 650 mg Tablet 650 mg PO Q4H PRN (Reason: PAIN/FEVER) ascorbic acid (vitamin C) 500 mg Tablet 500 mg PO DAILY bisacodyl 10 mg Suppository 10 mg AK DAILY PRN (Reason: Constipation) diphenhydramine HCl [Benadryl] 25 mg Capsule 25 mg PO DAILY PRN (Reason: Itching) aluminum-magnesium hydroxide 225-200 mg/5 mL Suspension 30 ml PO Q4H PRN PRN (Reason: GI DISTRESS) darbepoetin jacki in polysorbat 40 mcg/mL Solution 40 mcg IV X1 PRN (Reason: DIALYSIS) Rx Instructions: DIALYSIS ADMINISRATION ONLY glucagon 1 mg Kit 1 mg IM PRN PRN (Reason: Hypoglycemia) dextrose [Glucose Gel] 40 % Gel 15 g PO Q15M PRN (Reason: Hypoglycemia) Rx Instructions: until symptoms of low blood sugar are controlled famotidine 20 mg Tablet 20 mg PO DAILY Fleet Enema 19-7 gram/118 mL Enema 118 ml AK DAILY PRN (Reason: Constipation) gabapentin 300 mg Capsule 300 mg PO QHS guaifenesin 100 mg/5 mL Syrup 400 mg PO Q6H PRN (Reason: Cough) cetylpyridinium chloride Lozenge 1 yunior MUCOUS MEMBRANE Q3H PRN (Reason: Sore Throat) insulin lispro [Humalog KwikPen Insulin] 100 unit/mL Insulin Pen 3 unit SUBCUT TID escitalopram oxalate 10 mg Tablet 10 mg PO DAILY Eliquis 5 mg Tablet 5 mg PO BID trazodone 50 mg Tablet 50 mg PO QHS prednisone 5 mg Tablet 5 mg PO DAILY hydralazine 25 mg Tablet 25 mg PO Q8 melatonin 3 mg Tablet 3 mg PO QHS pantoprazole 40 mg Tablet,Delayed Release (Dr/Ec) 40 mg PO DAILY clotrimazole-betamethasone 1-0.05 % Cream 1 applic TOPICAL QHS tacrolimus [Prograf] 1 mg Capsule 2 mg PO Q12H midodrine 10 mg Tablet 10 mg PO DAILY Rx Instructions: q mon, tu, wed, fri for hypotension prior to dialysis Hold BP >130/90 insulin glargine [Lantus Solostar U-100 Insulin] 100 unit/mL (3 mL) Insulin Pen 20 unit SUBCUT QHS levothyroxine 150 mcg Capsule 150 mcg PO DAILY polyethylene glycol 3350 17 gram Powder In Packet 17 g PO DAILY promethazine 12.5 mg Tablet 12.5 mg PO Q8H PRN (Reason: Nausea) ondansetron HCl 4 mg Tablet 4 mg PO Q6H PRN (Reason: Nausea) nystatin 100,000 unit/gram Powder 1 applic TOPICAL PRN PRN (Reason: Skin Intervention) Senna Plus 8.6-50 mg Capsule 1 tab-cap PO BID PRN (Reason: Constipation) Discontinued insulin lispro [Humalog KwikPen Insulin] 100 unit/mL Insulin Pen See Rx Instructions .ROUTE .COMPLEX Rx Instructions: 151-250 (1 unit) 251-350 (2 units) 351-450 (3 units) oxycodone 5 mg Tablet 5 mg PO Q4H PRN (Reason: Pain) oxycodone 10 mg Tablet 10 mg PO Q4H PRN (Reason: Pain) Referrals / Follow Up: Vanessa Hutchins MD [Primary Care Provider] - Disposition Disposition (needs filled in before D/C Order can be placed): [facility] Charges/Coding Visit Charges Inpatient E&M: 32472 Disch Hosp >30min
--- NOTE | 2023-01-04 15:52 | CASEMGMT ---
Discharge Planning Discharge orders and pickup time sent to [facility] via [facility]. Patient will transported via cot by Phys[facility] at 6p. Nursing, SW and patients sister all notified. Nursing to notify patient when he wakes. Selina Sylvester, Discharge Planning Asst.
--- NOTE | 2023-01-04 16:28 | NURSING ---
Report Called to [facility] nurse Francesca.
[2023-01-04 16:35] LABS: Bedside Glucose 147 mg/dL (74-106)
[2023-01-04] MEDS: Carvedilol 12.5 MG Tablet PO (17:03)
--- NOTE | 2023-01-04 18:35 | DIALYSIS ---
Hemodialysis x 3 hours and 8 minutes completed. Treatment terminated with 22 minutes remaining to accomodate scheduled transport/discharge. Hemostasis achieved post manual hold x 5 minutes per site. Patient is stable and alert. UF 1800.
== END 2023-01-04 18:50 | disposition skilled nursing facility (03) | DRG 592 ==
LOC: ED 01-02 01:26 → PCU 01-02 01:48
PROVIDERS: Internal Medicine Nephrology; Nurse Practitioner Adult Health; Admitting Provider Family Medicine; Emergency Provider Emergency Medicine; PCP Internal Medicine; Visit Provider Internal Medicine
DX: L89.224 Pressure ulcer of left hip, stage 4 (principal); N18.6 End stage renal disease; T86.12 Kidney transplant failure; I13.2 Hypertensive heart and chronic kidney disease with heart failure and with stage 5 chronic kidney disease, or end stage renal disease; G82.22 Paraplegia, incomplete; I50.22 Chronic systolic (congestive) heart failure; D63.1 Anemia in chronic kidney disease; L97.519 Non-pressure chronic ulcer of other part of right foot with unspecified severity; E11.22 Type 2 diabetes mellitus with diabetic chronic kidney disease; E11.621 Type 2 diabetes mellitus with foot ulcer; E11.42 Type 2 diabetes mellitus with diabetic polyneuropathy; Z99.2 Dependence on renal dialysis; Z79.4 Long term (current) use of insulin; Z89.512 Acquired absence of left leg below knee; Z93.3 Colostomy status; E78.5 Hyperlipidemia, unspecified; E03.9 Hypothyroidism, unspecified; K21.9 Gastro-esophageal reflux disease without esophagitis; E87.5 Hyperkalemia; F41.9 Anxiety disorder, unspecified; F32.A Depression, unspecified; Z79.01 Long term (current) use of 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; Z79.899 Other long term (current) drug therapy; E66.9 Obesity, unspecified; Z68.34 Body mass index [BMI] 34.0-34.9, adult; B95.62 Methicillin resistant Staphylococcus aureus infection as the cause of diseases classified elsewhere; Z86.711 Personal history of pulmonary embolism; B96.4 Proteus (mirabilis) (morganii) as the cause of diseases classified elsewhere; B95.0 Streptococcus, group A, as the cause of diseases classified elsewhere
CPT/HCPCS: 36415; 71045; 80048; 80053; 80202; 82962; 83605; 83735; 84100; 84132; 84145; 85025; 86705; 86706; 87040; 87070; 87077; 87186; 87205; 87340; 87428; 87449; 87633; 90937; 93005; 94003; 94668; 94762; 97110; 97162; 97166; 97535; 99252; 99285; J7030; J7040; J7050; A4216; G0257; G0463; J2405

== ENCOUNTER → 2023-01-09 | Outpatient (REF) | payer MEDICARE, MEDICAID, SELFPAY ==
[2023-01-09 09:19] LABS: Absolute Lymphocyte Count 1.94 X10^3/uL (0.83-4.51); Absolute Neutrophil Count 6.2 X10^3/uL (2.0-7.7); Basophil# 0.05 X10^3/uL; Basophil% 0.5 % (0-1); Eosinophil# 0.38 X10^3/uL; Hematocrit 30.6 % (40-54); Hemoglobin 9.3 g/dL (13.0-16.5); Lymphocyte # 1.94 X10^3/ul (0.83-4.51); Lymphocyte % 20.5 % (19-41); Mean Corp Hgb Conc 30.4 g/dL (32-36); Mean Corpuscular Volume 95.3 fL (80-94); Mean Platelet Vol. 10.3 fl (6.2-12.0); Monocyte# 0.79 X10^3/uL; Monocyte% 8.4 % (0-10); NRBC Flagged by Analyzer 0 % (0-5); Neutrophil # 6.21 X10^3/uL (2.7-7.7); Neutrophil % 65.8 % (47-70); Platelet Count 293 K/mm3 (150-450); RBC Distribution Width CV 15.9 % (11.6-14.6); RBC Distribution Width SD 55.8 fl (35.1-43.9); Red Blood Count 3.21 M/mm3 (4.6-6.2); White Blood Count 9.5 K/mm3 (4.4-11.0)
[2023-01-09 10:00] LABS: Anion Gap 7 (5-15); BUN 56 mg/dL (7-18); Calcium,Total 8.4 mg/dL (8.5-10.1); Chloride 106 mmol/L (98-107); Creatinine, Serum 7.01 mg/dL (0.70-1.30); EST Glomerular Filtration Rate 10 mL/min (>60); Est Glom Filt Rate - Afr Amer 12 mL/min (>60); Glucose 299 mg/dL (74-106); Potassium 4.6 mmol/L (3.5-5.1); Sodium Level 136 mmol/L (136-145)
== END ==
LOC: OLS.SW 05:00
PROVIDERS: PCP Internal Medicine; Visit Provider Internal Medicine
DX: E11.9 Type 2 diabetes mellitus without complications (principal); E78.5 Hyperlipidemia, unspecified
CPT/HCPCS: 36415; 80048; 85025

== ENCOUNTER → 2023-01-30 | Outpatient (REF) | payer MEDICARE, MEDICAID, SELFPAY ==
[2023-01-30 16:13] LABS: Hemoglobin A1c 7.8 % (3.8-5.6)
== END ==
LOC: OLS.SW 05:00
PROVIDERS: PCP Internal Medicine; Visit Provider Internal Medicine
DX: E11.9 Type 2 diabetes mellitus without complications (principal)
CPT/HCPCS: 36415; 83036

== ENCOUNTER 2023-04-21 20:46 | Emergency (ER) | payer MEDICARE, MEDICAID, SELFPAY ==
[2023-04-21 20:48] VITALS: BP 157/65; PULSE 105; RESP 20; TEMP 37.8; O2SAT 99; BMI 36.3
[2023-04-21 20:50] VITALS: BP 157/65; PULSE 105; RESP 24; TEMP 37.8; O2SAT 100
--- NOTE | 2023-04-21 21:30 | EKG12_ITS ---
Test Reason : FEVER Blood Pressure : / mmHG Vent. Rate : 104 BPM Atrial Rate : 104 BPM P-R Int : 150 ms QRS Dur : 078 ms QT Int : 330 ms P-R-T Axes : 040 015 084 degrees QTc Int : 433 ms Sinus tachycardia Possible Left atrial enlargement Nonspecific T wave abnormality Abnormal ECG Confirmed by LUIS ARANA, JEFF ([id number]), online editor DEANNA TOWNSEND ([id number]) on 04/25/2023 11:31:31 AM Referred By: Confirmed By:JEFF SMITH MD
--- NOTE | 2023-04-21 21:32 | EX.ED.DYSGE1 ---
HPI History of Present Illness Chief Complaint: Fever Informant: patient, EMS and SNF Narrative Narrative: 37-year-old male in [facility] because of being functional paraplegic after having a kidney transplant surgery complicated by a blood clot causing a stroke and going to his spinal cord according to him. He has had a Hurst catheter for the past 2 years or so, patient states that 4 or 5 days ago it was removed in order to give him a voiding trial, and since then has been having intermittent bladder spasms followed by urinating into his diaper. Therefore he does not know what the urine has looked like, it does not hurt to pee other than the spasms he is having, but today he developed fevers and chills, he was given Tylenol just prior to being sent here by ambulance. He states he has had a cough recently, nonproductive. When he is having coughing fits, he is dyspneic, but he has no other periods of dyspnea. No chest discomfort. [facility] Medical History Acute kidney failure Acute on chronic systolic (congestive) heart failure Acute pulmonary edema Acute respiratory failure with hypoxia Anemia in chronic kidney disease Dependence on renal dialysis Depression End stage renal disease Gastro-esophageal reflux disease without esophagitis Hyperkalemia Hyperlipemia Hyperosmolality and hypernatremia Hypertensive heart and chronic kidney disease with heart failure and stage 1 through stage 4 chronic kidney disease, or unspecified chronic kidney disease Hypomagnesemia Hypothyroidism Kidney transplant failure Neurogenic bowel Neuromuscular dysfunction of bladder, unspecified Other acute osteomyelitis, left ankle and foot Other pericardial effusion (noninflammatory) Other pulmonary embolism without acute cor pulmonale Paraplegia, incomplete Pericardial effusion (noninflammatory) Pneumonia Pressure ulcer of left heel, unspecified stage Pyrexia SIRS (systemic inflammatory response syndrome) Type 2 diabetes mellitus with diabetic chronic kidney disease Home Medications acetaminophen 325 mg tablet 650 mg PO Q4H PRN PAIN/FEVER 01/02/23 [History Last Taken 04/21/23] acetaminophen 650 mg tablet 650 mg PO Q4H PRN PAIN/FEVER 01/02/23 [History Last Taken Unknown] aluminum-magnesium hydroxide 225 mg-200 mg/5 mL oral suspension 30 ml PO Q4H PRN PRN GI DISTRESS 01/02/23 [History Last Taken Unknown] apixaban 5 mg tablet (Eliquis) 5 mg PO BID 01/02/23 [History Last Taken Unknown] ascorbic acid (vitamin C) 500 mg tablet 500 mg PO DAILY 01/02/23 [History Last Taken Unknown] atorvastatin 40 mg tablet 40 mg PO QHS 01/02/23 [History Last Taken Unknown] bisacodyl 10 mg rectal suppository 10 mg TN DAILY PRN Constipation 01/02/23 [History Last Taken Unknown] carvedilol 12.5 mg tablet 12.5 mg PO BID 01/02/23 [History Last Taken Unknown] cetylpyridinium chloride 1 yunior mucous membrane Q3H PRN Sore Throat 01/02/23 [History Last Taken Unknown] clotrimazole-betamethasone 1 %-0.05 % topical cream 1 applic topical QHS 01/02/23 [History Last Taken Unknown] darbepoetin jacki in polysorbat 40 mcg/mL in polysorbate injection 40 mcg IV X1 PRN DIALYSIS 01/02/23 [History Last Taken Unknown] dextrose 40 % oral gel (Glucose Gel) 15 g PO Q15M PRN Hypoglycemia 01/02/23 [History Last Taken Unknown] escitalopram oxalate 10 mg tablet 10 mg PO DAILY 01/02/23 [History Last Taken Unknown] famotidine 20 mg tablet 20 mg PO DAILY 01/02/23 [History Last Taken Unknown] gabapentin 300 mg capsule 300 mg PO QHS 01/02/23 [History Last Taken Unknown] glucagon 1 mg injection kit 1 mg IM PRN PRN Hypoglycemia 01/02/23 [History Last Taken Unknown] guaifenesin 100 mg/5 mL oral syrup 400 mg PO Q6H PRN Cough 01/02/23 [History Last Taken Unknown] hydralazine 25 mg tablet 25 mg PO Q8 01/02/23 [History Last Taken Unknown] insulin glargine 100 unit/mL (3 mL) subcutaneous pen (Lantus Solostar U-100 Insulin) 24 unit subcut QHS 01/02/23 [History Last Taken Unknown] insulin lispro 100 unit/mL subcutaneous pen (Humalog KwikPen (U-100) Insulin) 6 unit subcut BID 01/02/23 [History Last Taken Unknown] levothyroxine 150 mcg capsule 150 mcg PO DAILY 01/02/23 [History Last Taken Unknown] melatonin 3 mg tablet 3 mg PO QHS 01/02/23 [History Last Taken Unknown] midodrine 10 mg tablet 10 mg PO DAILY 01/02/23 [History Last Taken Unknown] nystatin 100,000 unit/gram topical powder 1 applic topical PRN PRN Skin Intervention 01/02/23 [History Last Taken Unknown] ondansetron HCl 4 mg tablet 4 mg PO Q6H PRN Nausea 01/02/23 [History Last Taken Unknown] pantoprazole 40 mg tablet,delayed release 40 mg PO DAILY 01/02/23 [History Last Taken Unknown] polyethylene glycol 3350 17 gram oral powder packet 17 g PO DAILY PRN constipation 01/02/23 [History Last Taken Unknown] prednisone 5 mg tablet 5 mg PO DAILY 01/02/23 [History Last Taken Unknown] promethazine 12.5 mg tablet 12.5 mg PO Q8H PRN Nausea 01/02/23 [History Last Taken Unknown] sennosides 8.6 mg-docusate sodium 50 mg capsule (Senna Plus) 1 tab-cap PO BID Constipation 01/02/23 [History Last Taken Unknown] sodium phosphates 19 gram-7 gram/118 mL enema (Fleet Enema) 118 ml TN DAILY PRN Constipation 01/02/23 [History Last Taken Unknown] tacrolimus 1 mg capsule, immediate-release (Prograf) 2 mg PO Q12H 01/02/23 [History Last Taken Unknown] trazodone 50 mg tablet 75 mg PO QHS 01/02/23 [History Last Taken Unknown] oxycodone 10 mg tablet 10 mg PO Q4H PRN pain 2 days #12 tabs 01/04/23 [Rx Last Taken Unknown] amlodipine 5 mg tablet (Norvasc) 5 mg PO DAILY 04/21/23 [History Last Taken Unknown] calcitriol 0.5 mcg capsule 1 mcg PO .COMPLEX 04/21/23 [History Last Taken Unknown] cephalexin 500 mg capsule 500 mg PO Q12 #14 CAPSULES 04/21/23 [Rx Last Taken Unknown] gabapentin 100 mg capsule 100 mg PO DAILY 04/21/23 [History Last Taken Unknown] mupirocin 2 % topical ointment 1 applic topical QHS 04/21/23 [History Last Taken Unknown] sevelamer HCl 800 mg tablet 2,400 mg PO TID 04/21/23 [History Last Taken Unknown] Allergy/AdvReac Type Severity Reaction Status Date / Time No Known Allergies Allergy Verified 04/21/23 20:51 Family History Mother Hypertension Diabetes Father Hypertension Diabetes Surgical History S/P colostomy S/P foot surgery S/P unilateral above knee amputation Social History housing: residential Smoking Status: Never smoker alcohol intake: never substance use type: does not use ROS ROS ED Constitutional Constitutional ED: Reports chills and fever(s) Eyes Eyes: Denies change in vision or diplopia ENT ENT ED: Denies rhinorrhea or sore throat Cardiovascular Cardiovascular: Denies chest pain or palpitations Respiratory/Chest Respiratory/Chest: Reports cough and dyspnea Gastrointestinal Gastrointestinal: Reports other Details: perineal bladder spasm-pain, no other abd pain ; Denies abdominal pain, diarrhea, nausea or vomiting Genitourinary Genitourinary ED: Denies dysuria or hematuria Musculoskeletal Musculoskeletal: Denies back pain or neck pain Integumentary Reports wounds; Denies abscess or rash Neurologic Neurologic: Reports weakness Psychiatric Psychiatric: Denies anxiety or suicidal thoughts EXAM Physical Exam Const Vital Signs: 04/21/23 20:48 04/21/23 20:50 04/21/23 20:51 Temperature 100.1 F H 100.1 F H Temperature Source Oral Oral Pulse Rate 105 H 105 H Respiratory Rate 20 H 24 H Respiratory Effort Normal Respiratory Pattern Normal Blood Pressure 157/65 H 157/65 H Blood Pressure Mean 95 95 Pulse Ox 99 100 Oxygen Delivery Method Nasal Cannula Nasal Cannula Oxygen Flow Rate (L/min) 4 4 04/21/23 21:43 04/21/23 23:13 04/21/23 23:13 Temperature 99 F 99 F Temperature Source Oral Oral Pulse Rate 100 100 Respiratory Rate 16 18 Respiratory Effort Respiratory Pattern Blood Pressure 157/95 H 149/92 H Blood Pressure Mean 115 111 Pulse Ox 100 100 Oxygen Delivery Method Room Air Room Air Room Air Oxygen Flow Rate (L/min) Positive well nourished, well developed and obese General Appearance ED: well developed and NAD Nutritional Appearance: obese HEENT Reports moist mucous membranes normocephalic and atraumatic Eyes PERRL and EOMs intact bilaterally Neck full ROM and supple Resp normal respiratory effort and clear to auscultation bilaterally Cardio regular rate, regular rhythm and no murmurs Rate: tachycardic GI non-tender and non-distended Auscultation: normoactive bowel sounds Palpation: soft Narrative: During exam patient has a bladder spasm, this is followed by him urinating into his diaper, nonbloody yellow urine Back/Spine General Back: other FROM Extremity Extremity Narrative: Status post left BKA. Edema in both legs. Wound to left buttock that does not appear to have any acute infection or active discharge. General Extremety ED: Yes edema; Negative for pulses abnormal or tenderness General Extremity: edema; Negative for pulses abnormal Neuro oriented x3, CN's II-XII intact bilaterally and no sensory deficits noted Neuro Narrative: Weak in lower extremities able to move them. Good strength in arms. Sensorium / Orientation: awake and alert Psych mental status grossly normal Skin no rashes or lesions noted Skin Narrative: Chronic appearing cratered wound left buttock without active discharge or signs of infection/tenderness MDM MDM MDM Narrative Medical decision making narrative: Septic work-up obtained, the labs basically show chronic renal failure with hyperkalemia, does not appear to have any EKG changes of this. Lab states did not seem to have any significant hemolysis. Potassium is 6.4. His lactic acid is well within normal limits 1.2. COVID and influenza are negative, chest x-ray 1 view on my interpretation negative for pneumonia, radiology in agreement. Urinalysis consistent with infection, it is cultured as is his blood. He has a renal transplant, he has had several, and he is currently getting hemodialysis his last full session was 2 days ago. Nontender throughout his abdomen. 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 He had his transplants done at [facility] in [place] he does not know the physician, he has an appointment with a urologist the day after tomorrow, HERBERT Vanegas on [facility]. Patient is doing well clinically. He was complaining of having painful bladder spasms, although he appeared to be tolerating them very well, since opium and belladonna suppositories are no longer available due to supply chain issues, he was given a dose of oxybutynin 5 mg. On further questioning he states he was the one who wanted his Hurst discontinued to see if he could void without it and discussed this with the nurse practitioner on-call who decided to order that for him. Patient had a bladder spasm and we were able to capture a midstream specimen that was sent for urinalysis and culture. Postvoid residual shows around 150 cc. He prefers not to have the catheter put back in. With regards to his mild hyperkalemia he was given Kayexalate, he does not have any significant EKG changes from this, and his next dialysis session is in the morning at 8 AM, a little more than 8 hours from now. Discussed w/ Dr. Hutchins, his doctor for the SNF. She request that we place the Hurst back in which I agree with, and is okay with him going back to the [facility] facility on prescription antibiotics. Lab Data Attestation: I reviewed the patient's lab results. Labs: Laboratory Results - last 24 hr 04/21/23 04/21/23 21:03 22:30 WBC 8.7 RBC 3.38 L Hgb 10.0 L Hct 32.7 L MCV 96.7 H MCH 29.6 MCHC 30.6 L RDW Std Deviation 44.9 H RDW Coeff of Shanta 12.8 Plt Count 241 MPV 10.6 Immature Gran % (Auto) 0.700 Neut % (Auto) 76.6 H Lymph % (Auto) 11.1 L Toole % (Auto) 7.7 Eos % (Auto) 3.3 Baso % (Auto) 0.6 Absolute Neuts (auto) 6.7 Absolute Lymphs (auto) 0.97 Nucleated RBC % 0 PT 15.8 H INR 1.3 APTT 37.8 H Sodium 133 L Potassium 6.4 H* Chloride 98 Carbon Dioxide 28.0 Anion Gap 7 BUN 79 H Creatinine 10.50 H* Estim Creat Clear Calc 11.10 Est GFR (MDRD) Af Amer 7 L Est GFR (MDRD) Non-Af 6 L BUN/Creatinine Ratio 7.5 L Glucose 221 H Lactic Acid 1.2 Calcium 8.3 L Total Bilirubin 0.80 AST 14 L ALT 17 Alkaline Phosphatase 240 H Total Protein 9.3 H Albumin 2.2 L Globulin 7.1 H Albumin/Globulin Ratio 0.3 L Urine Color Yellow Urine Clarity Cloudy Urine pH 8.0 Ur Specific [place] 1.010 Urine Protein 500 H Urine Glucose (UA) 250 H Urine Ketones Negative Urine Occult Blood 150 H Urine Nitrite Negative Urine Bilirubin Negative Urine Urobilinogen Normal Ur Leukocyte Esterase 500 H Urine RBC 10-25 SEEN Urine WBC >100 SEEN Ur Squamous Epith Cells 0-5 SEEN Amorphous Sediment 1+ PHOS Urine Bacteria RARE Urine Mucus 0 SEEN Radiography Diagnostic Testing: Clinical Impression(s) from Imaging Studies Chest X-Ray 04/21/23 21:40 IMPRESSION: Mild left basilar atelectasis, otherwise no acute cardiac pulmonary disease. Electronically Signed: Vaishnavi Hansen MD at 22:26 EDT , Rhythm Strip Rhythm Strip: Sinus Tach Rate: 105 Ectopy: None EKG Initial EKG: Attestation: I personally reviewed and interpreted this EKG as follows: Interpretation: No Acute Injury Pattern and Sinus Tachycardia Management Discussion w/another healthcare provider: Wool Grower Discharge Plan Triage Chief Complaint: Fever ED Provider: Torsten Villatoro Dx/Rx/DC Orders Clinical Impression: Urinary tract infection, Chronic kidney disease with end stage renal failure on dialysis, Decubitus ulcer of ischial area, Hyperkalemia, diminished renal excretion, Bladder spasms Instructions: UTIs Understanding Prescriptions: New cephalexin [cephalexin] 500 mg capsule 500 mg PO Q12 Qty: 14 0RF No Action atorvastatin 40 mg Tablet 40 mg PO QHS acetaminophen 325 mg Tablet 650 mg PO Q4H PRN (Reason: PAIN/FEVER) carvedilol 12.5 mg Tablet 12.5 mg PO BID Rx Instructions: must administer with a meal/food acetaminophen 650 mg Tablet 650 mg PO Q4H PRN (Reason: PAIN/FEVER) ascorbic acid (vitamin C) 500 mg Tablet 500 mg PO DAILY bisacodyl 10 mg Suppository 10 mg TN DAILY PRN (Reason: Constipation) aluminum-magnesium hydroxide 225-200 mg/5 mL Suspension 30 ml PO Q4H PRN PRN (Reason: GI DISTRESS) darbepoetin jacki in polysorbat 40 mcg/mL Solution 40 mcg IV X1 PRN (Reason: DIALYSIS) Rx Instructions: DIALYSIS ADMINISRATION ONLY glucagon 1 mg Kit 1 mg IM PRN PRN (Reason: Hypoglycemia) dextrose [Glucose Gel] 40 % Gel 15 g PO Q15M PRN (Reason: Hypoglycemia) Rx Instructions: until symptoms of low blood sugar are controlled famotidine 20 mg Tablet 20 mg PO DAILY Fleet Enema 19-7 gram/118 mL Enema 118 ml TN DAILY PRN (Reason: Constipation) gabapentin 300 mg Capsule 300 mg PO QHS guaifenesin 100 mg/5 mL Syrup 400 mg PO Q6H PRN (Reason: Cough) cetylpyridinium chloride Lozenge 1 yunior MUCOUS MEMBRANE Q3H PRN (Reason: Sore Throat) insulin lispro [Humalog KwikPen Insulin] 100 unit/mL Insulin Pen 6 unit SUBCUT BID escitalopram oxalate 10 mg Tablet 10 mg PO DAILY Eliquis 5 mg Tablet 5 mg PO BID trazodone 50 mg Tablet 75 mg PO QHS prednisone 5 mg Tablet 5 mg PO DAILY hydralazine 25 mg Tablet 25 mg PO Q8 melatonin 3 mg Tablet 3 mg PO QHS pantoprazole 40 mg Tablet,Delayed Release (Dr/Ec) 40 mg PO DAILY clotrimazole-betamethasone 1-0.05 % Cream 1 applic TOPICAL QHS tacrolimus [Prograf] 1 mg Capsule 2 mg PO Q12H midodrine 10 mg Tablet 10 mg PO DAILY Rx Instructions: q sat, , paola, fri for hypotension prior to dialysis Hold BP >130/90 insulin glargine [Lantus Solostar U-100 Insulin] 100 unit/mL (3 mL) Insulin Pen 24 unit SUBCUT QHS levothyroxine 150 mcg Capsule 150 mcg PO DAILY polyethylene glycol 3350 17 gram Powder In Packet 17 g PO DAILY PRN (Reason: constipation) promethazine 12.5 mg Tablet 12.5 mg PO Q8H PRN (Reason: Nausea) ondansetron HCl 4 mg Tablet 4 mg PO Q6H PRN (Reason: Nausea) nystatin 100,000 unit/gram Powder 1 applic TOPICAL PRN PRN (Reason: Skin Intervention) Senna Plus 8.6-50 mg Capsule 1 tab-cap PO BID oxycodone 10 mg tablet 10 mg PO Q4H PRN (Reason: pain) 2 Days Qty: 12 0RF calcitriol 0.5 mcg capsule 1 mcg PO .COMPLEX Rx Instructions: 1 mcg orally mon, tu, sat, paola, fri; gabapentin 100 mg capsule 100 mg PO DAILY amlodipine [Norvasc] 5 mg tablet 5 mg PO DAILY sevelamer HCl 800 mg tablet 2,400 mg PO TID Rx Instructions: must administer with a meal/food mupirocin 2 % ointment 1 applic topical QHS Rx Instructions: apply to left ischium topically Primary Care Provider: Vanessa Hutchins Referrals: Vanessa Hutchins MD [Primary Care Provider] - 2 Days Disposition Disposition: Detention Facility Discharge Location: [facility]
[2023-04-21] MEDS: 0.9% Normal Saline (500mL Bag) 500 ML 999 ML IV (21:37)
--- NOTE | 2023-04-21 21:37 | EKG12_ITS ---
Test Reason : Blood Pressure : / mmHG Vent. Rate : 084 BPM Atrial Rate : 084 BPM P-R Int : 164 ms QRS Dur : 080 ms QT Int : 394 ms P-R-T Axes : 043 -01 084 degrees QTc Int : 465 ms Normal sinus rhythm Possible Left atrial enlargement Minimal voltage criteria for LVH, may be normal variant ( R in aVL ) Nonspecific T wave abnormality Prolonged QT Abnormal ECG When compared with ECG of 21-APR-2023 21:37, No significant change was found Confirmed by LUIS ARANA, JEFF ([id number]), visual effects editor JENS DANIELSON ([id number]) on 07/19/2023 7:27:14 AM Referred By: Confirmed By:JEFF SMITH MD
--- NOTE | 2023-04-21 21:40 | RAD_ITS ---
STUDY: X-RAY CHEST REASON FOR EXAM: Male, 37 years old. cough, fever TECHNIQUE: Single AP portable view of the chest. COMPARISON: 01/02/2023. FINDINGS: The lungs are underexpanded with mild vascular crowding. There is mild left basilar atelectasis. There is no demonstrated pleural abnormality. There is borderline cardiomegaly. Normal mediastinum and ranjith. Normal visualized pulmonary arteries. Normal visualized aortic arch and descending thoracic aorta. Normal visualized thoracic spine. Normal visualized ribs, clavicles, and shoulders. There is no demonstrated abnormality of the visualized soft tissue structures of the upper abdomen. RAD/Chest 1 View (Portable) IMPRESSION: Mild left basilar atelectasis, otherwise no acute cardiac pulmonary disease. Electronically Signed: Vaishnavi Hansen MD at 22:26 EDT ,
[2023-04-21 21:41] LABS: Absolute Lymphocyte Count 0.97 X10^3/uL (0.83-4.51); Absolute Neutrophil Count 6.7 X10^3/uL (2.0-7.7); Basophil# 0.05 X10^3/uL; Basophil% 0.6 % (0-1); Eosinophil# 0.29 X10^3/uL; Eosinophils% 3.3 % (0-5); Hematocrit 32.7 % (40-54); Lymphocyte # 0.97 X10^3/ul (0.83-4.51); Lymphocyte % 11.1 % (19-41); Mean Corp Hgb Conc 30.6 g/dL (32-36); Mean Corpuscular Hgb 29.6 pg (27.0-32.0); Mean Corpuscular Volume 96.7 fL (80-94); Mean Platelet Vol. 10.6 fl (6.2-12.0); Monocyte# 0.67 X10^3/uL; Monocyte% 7.7 % (0-10); NRBC Flagged by Analyzer 0 % (0-5); Neutrophil # 6.69 X10^3/uL (2.7-7.7); Neutrophil % 76.6 % (47-70); Platelet Count 241 K/mm3 (150-450); RBC Distribution Width CV 12.8 % (11.6-14.6); RBC Distribution Width SD 44.9 fl (35.1-43.9); Red Blood Count 3.38 M/mm3 (4.6-6.2); White Blood Count 8.7 K/mm3 (4.4-11.0)
[2023-04-21 21:45] LABS: International Normalized Ratio 1.3; Prothrombin Time (Protime)PT. 15.8 SECONDS (11.7-14.9)
[2023-04-21 21:46] LABS: Partial Thromboplast Time 37.8 Seconds (24.1-36.2)
[2023-04-21 21:57] LABS: Lactic Acid 1.2 mmol/L (0.4-1.9)
[2023-04-21 22:00] LABS: ALB/GLOB Ratio 0.3 RATIO (0.9-2.4); AST(SGOT) 14 U/L (15-37); Alanine Aminotransfer ALT/SGPT 17 U/L (16-61); Albumin, Serum 2.2 g/dL (3.2-5.0); Alkaline Phosphatase 240 U/L (45-117); Anion Gap 7 (5-15); BUN 79 mg/dL (7-18); BUN/Creat Ratio 7.5 RATIO (10-20); Calcium,Total 8.3 mg/dL (8.5-10.1); Chloride 98 mmol/L (98-107); EST Glomerular Filtration Rate 6 mL/min (>60); Est Glom Filt Rate - Afr Amer 7 mL/min (>60); Globulin 7.1 g/dL (2.2-4.2); Glucose 221 mg/dL (74-106); Potassium 6.4 mmol/L (3.5-5.1); Protein, Total 9.3 g/dL (6.4-8.2); Sodium Level 133 mmol/L (136-145)
[2023-04-21] MEDS: Sodium Polystyrene Sulfonate 15 GM/60 ML UDC PO (22:31)
[2023-04-21] MEDS: Oxybutynin 5 MG Tablet PO (22:31)
[2023-04-21] MEDS: Lidocaine Jelly 2% 20 ML Syringe (URO-JET) 1 APPLIC TOPICAL (22:31)
[2023-04-21 22:40] LABS: Mucous, Urine 0 SEEN /hpf (<or=2+)
[2023-04-21 22:45] LABS: Color, Urine Yellow (Yellow); Glucose, Dipstick 250 mg/dl (Normal); Ketone-Dipstick Negative (Negative); Leukocyte Esterase-Dipstick 500 /ul (Negative); Nitrite-Dipstick Negative (Negative); Occult Blood-Urine 150 /ul (Negative); Protein-Dipstick 500 mg/dl (Negative); Urine Bilirubin Dipstick Negative (Negative); Urine Clarity Cloudy (Clear); Urine Urobilinogen Normal (Normal)
[2023-04-21 23:00] LABS: Bacteria RARE /hpf (None Seen); Red Blood Cells-Urine 10-25 SEEN /hpf (0-5); Squamous Epithelial Cells - UA 0-5 SEEN /hpf (0-5); White Blood Cells >100 SEEN /hpf (0-5)
[2023-04-21 23:01] LABS: Amorphous Sediment 1+ PHOS
[2023-04-21 23:13] VITALS: BP 149/92; BP 157/95; PULSE 100; RESP 16; RESP 18; TEMP 37.2; O2SAT 100
[2023-04-21] MEDS: Ceftriaxone 1 GM/50 ML BAG IV (23:20)
[2023-04-22 00:23] VITALS: BP 159/93; PULSE 98; RESP 16; TEMP 37.3; O2SAT 98
[2023-04-22 00:29] VITALS: PULSE 97; RESP 19; O2SAT 98
== END 2023-04-22 01:05 ==
PROVIDERS: Emergency Provider Emergency Medicine; PCP Internal Medicine; Visit Provider Emergency Medicine
DX: N39.0 Urinary tract infection, site not specified (principal); I13.2 Hypertensive heart and chronic kidney disease with heart failure and with stage 5 chronic kidney disease, or end stage renal disease; Z99.2 Dependence on renal dialysis; I50.22 Chronic systolic (congestive) heart failure; E11.22 Type 2 diabetes mellitus with diabetic chronic kidney disease; N18.6 End stage renal disease; Z79.4 Long term (current) use of insulin; R06.00 Dyspnea, unspecified; F44.4 Conversion disorder with motor symptom or deficit; Z94.0 Kidney transplant status; E78.5 Hyperlipidemia, unspecified; N32.89 Other specified disorders of bladder; E87.5 Hyperkalemia; L89.159 Pressure ulcer of sacral region, unspecified stage; D63.1 Anemia in chronic kidney disease; Z79.02 Long term (current) use of antithrombotics/antiplatelets; Z79.890 Hormone replacement therapy; Z79.899 Other long term (current) drug therapy
CPT/HCPCS: 71045; 80053; 81001; 83605; 85025; 85610; 85730; 87040; 87077; 87086; 87088; 87186; 87428; 93005; 96361; 96365; 99285; J7040; A4216

== ENCOUNTER → 2023-04-29 | Outpatient (REF) | payer MEDICARE, MEDICAID, SELFPAY ==
[2023-04-29 08:37] LABS: Absolute Lymphocyte Count 2.38 X10^3/uL (0.83-4.51); Absolute Neutrophil Count 8.3 X10^3/uL (2.0-7.7); Basophil# 0.06 X10^3/uL; Basophil% 0.5 % (0-1); Eosinophil# 0.35 X10^3/uL; Eosinophils% 2.9 % (0-5); Hematocrit 30.4 % (40-54); Hemoglobin 9.3 g/dL (13.0-16.5); Lymphocyte # 2.38 X10^3/ul (0.83-4.51); Lymphocyte % 19.8 % (19-41); Mean Corp Hgb Conc 30.6 g/dL (32-36); Mean Corpuscular Hgb 29.6 pg (27.0-32.0); Mean Corpuscular Volume 96.8 fL (80-94); Mean Platelet Vol. 10.1 fl (6.2-12.0); Monocyte# 0.84 X10^3/uL; NRBC Flagged by Analyzer 0 % (0-5); Neutrophil # 8.27 X10^3/uL (2.7-7.7); Neutrophil % 68.9 % (47-70); Platelet Count 248 K/mm3 (150-450); RBC Distribution Width CV 13.5 % (11.6-14.6); RBC Distribution Width SD 46.9 fl (35.1-43.9); Red Blood Count 3.14 M/mm3 (4.6-6.2)
[2023-04-29 09:25] LABS: Anion Gap 7 (5-15); BUN 83 mg/dL (7-18); BUN/Creat Ratio 8.1 RATIO (10-20); Calcium,Total 8.4 mg/dL (8.5-10.1); Chloride 102 mmol/L (98-107); EST Glomerular Filtration Rate 6 mL/min (>60); Est Glom Filt Rate - Afr Amer 7 mL/min (>60); Glucose 238 mg/dL (74-106); Potassium 5.2 mmol/L (3.5-5.1); Sodium Level 135 mmol/L (136-145)
== END ==
LOC: OLS.SW 05:00
PROVIDERS: PCP Internal Medicine; Visit Provider Internal Medicine
DX: J44.9 Chronic obstructive pulmonary disease, unspecified (principal); E11.22 Type 2 diabetes mellitus with diabetic chronic kidney disease; N18.9 Chronic kidney disease, unspecified
CPT/HCPCS: 80048; 85025

== ENCOUNTER → 2023-05-03 | Outpatient (REF) | payer MEDICARE, MEDICAID, SELFPAY ==
[2023-05-03 08:01] LABS: Hematocrit 30.8 % (40-54); Hemoglobin 9.7 g/dL (13.0-16.5); Mean Corp Hgb Conc 31.5 g/dL (32-36); Mean Corpuscular Hgb 30.6 pg (27.0-32.0); Mean Corpuscular Volume 97.2 fL (80-94); Mean Platelet Vol. 10.2 fl (6.2-12.0); Platelet Count 183 K/mm3 (150-450); RBC Distribution Width CV 13.6 % (11.6-14.6); Red Blood Count 3.17 M/mm3 (4.6-6.2); White Blood Count 7.7 K/mm3 (4.4-11.0)
[2023-05-03 08:41] LABS: Anion Gap 4 (5-15); BUN 61 mg/dL (7-18); BUN/Creat Ratio 8.4 RATIO (10-20); Calcium,Total 8.5 mg/dL (8.5-10.1); Chloride 102 mmol/L (98-107); Creatinine, Serum 7.29 mg/dL (0.70-1.30); EST Glomerular Filtration Rate 9 mL/min (>60); Est Glom Filt Rate - Afr Amer 11 mL/min (>60); Glucose 99 mg/dL (74-106); Potassium 4.8 mmol/L (3.5-5.1); Sodium Level 136 mmol/L (136-145)
== END ==
LOC: OLS.SW 05:00
PROVIDERS: PCP Internal Medicine; Visit Provider Internal Medicine
DX: I10 Essential (primary) hypertension (principal)
CPT/HCPCS: 36415; 80048; 85027

== ENCOUNTER 2023-07-16 13:21 | Inpatient (IN) | payer MEDICARE, MEDICAID, SELFPAY ==
[2023-07-16] VITALS (22 sets, daily range): BP systolic 155–192; BP diastolic 60–100; PULSE 79–85; RESP 14–24; TEMP 36.7–36.9; O2SAT 92–98; BMI 39.0; BMI 40.3
--- NOTE | 2023-07-16 13:49 | RAD_ITS ---
STUDY: X-RAY CHEST REASON FOR EXAM: Male, 37 years old. CHEST PAIN TECHNIQUE: Single AP portable view of the chest. COMPARISON: None. FINDINGS: EKG electrodes are seen. Mild vascular congestion. There is no demonstrated pleural abnormality. There is moderate cardiac enlargement. Normal mediastinum and ranjith. Normal visualized pulmonary arteries. Normal visualized aortic arch and descending thoracic aorta. Normal visualized thoracic spine. Normal visualized ribs, clavicles, and shoulders. There is no demonstrated abnormality of the visualized soft tissue structures of the upper abdomen. RAD/Chest 1 View (Portable) IMPRESSION: Moderate cardiomegaly and vascular congestion. Electronically Signed: Rickie Jay MD at 14:50 EST ,
--- NOTE | 2023-07-16 13:52 | ED.VIS.CHEST ---
HPI History of Present Illness Chief Complaint: Chest Pain Informant: patient Onset/Context/Timing Onset: Days Activity at onset: gradual Timing: Continuous Quality: Positive for Dull Current Severity: Mild Worsened By: Nothing Relieved By: Nothing Associated Symptoms: Positive for Nausea and Cough; Negative for Vomiting Narrative Narrative: 37-year-old male extensive past medical history including chronic kidney disease with a renal transplant that failed currently is on dialysis 4 times a week was dialyzed for 1 today. Also history of CHF and diabetes. Currently not on any blood thinners. States he has not felt well since Saturday. He has had chest syndrome nominal discomfort upper abdomen. Associated nausea no vomiting or diarrhea has had chills without any fever. He makes very limited urine. He denies any diarrhea or constipation. Prior Similar Symptoms: Yes Recent Illness/Hospitalization: No CVD Risk Factors: Positive for Diabetes PE Risk Factors: Positive for Prior DVT or PE; Negative for Recent Travel/Surgery, Recent Immobilization, Cancer or OCP + Smoking + >/=35 TAD Risk Factors: Negative for Marfan's Syndrome PFSH [facility] Medical History Acute kidney failure Acute on chronic systolic (congestive) heart failure Acute pulmonary edema Acute respiratory failure with hypoxia Anemia in chronic kidney disease Dependence on renal dialysis Depression End stage renal disease Gastro-esophageal reflux disease without esophagitis Hyperkalemia Hyperlipemia Hyperosmolality and hypernatremia Hypertensive heart and chronic kidney disease with heart failure and stage 1 through stage 4 chronic kidney disease, or unspecified chronic kidney disease Hypomagnesemia Hypothyroidism Kidney transplant failure Neurogenic bowel Neuromuscular dysfunction of bladder, unspecified Other acute osteomyelitis, left ankle and foot Other pericardial effusion (noninflammatory) Other pulmonary embolism without acute cor pulmonale Paraplegia, incomplete Pericardial effusion (noninflammatory) Pneumonia Pressure ulcer of left heel, unspecified stage Pyrexia SIRS (systemic inflammatory response syndrome) Type 2 diabetes mellitus with diabetic chronic kidney disease Home Medications acetaminophen 325 mg tablet 650 mg PO Q4H PRN PAIN/FEVER 01/02/23 [History Last Taken 04/21/23] acetaminophen 650 mg tablet 650 mg PO Q4H PRN PAIN/FEVER 01/02/23 [History Last Taken Unknown] aluminum-magnesium hydroxide 225 mg-200 mg/5 mL oral suspension 30 ml PO Q4H PRN PRN GI DISTRESS 01/02/23 [History Last Taken Unknown] apixaban 5 mg tablet (Eliquis) 5 mg PO BID 01/02/23 [History Last Taken Unknown] ascorbic acid (vitamin C) 500 mg tablet 500 mg PO DAILY 01/02/23 [History Last Taken Unknown] atorvastatin 40 mg tablet 40 mg PO QHS 01/02/23 [History Last Taken Unknown] bisacodyl 10 mg rectal suppository 10 mg PA DAILY PRN Constipation 01/02/23 [History Last Taken Unknown] carvedilol 12.5 mg tablet 12.5 mg PO BID 01/02/23 [History Last Taken Unknown] cetylpyridinium chloride 1 yunior mucous membrane Q3H PRN Sore Throat 01/02/23 [History Last Taken Unknown] clotrimazole-betamethasone 1 %-0.05 % topical cream 1 applic topical QHS 01/02/23 [History Last Taken Unknown] darbepoetin jacki in polysorbat 40 mcg/mL in polysorbate injection 40 mcg IV X1 PRN DIALYSIS 01/02/23 [History Last Taken Unknown] dextrose 40 % oral gel (Glucose Gel) 15 g PO Q15M PRN Hypoglycemia 01/02/23 [History Last Taken Unknown] escitalopram oxalate 10 mg tablet 10 mg PO DAILY 01/02/23 [History Last Taken Unknown] famotidine 20 mg tablet 20 mg PO DAILY 01/02/23 [History Last Taken Unknown] gabapentin 300 mg capsule 300 mg PO QHS 01/02/23 [History Last Taken Unknown] glucagon 1 mg injection kit 1 mg IM PRN PRN Hypoglycemia 01/02/23 [History Last Taken Unknown] guaifenesin 100 mg/5 mL oral syrup 400 mg PO Q6H PRN Cough 01/02/23 [History Last Taken Unknown] hydralazine 25 mg tablet 25 mg PO Q8 01/02/23 [History Last Taken Unknown] insulin glargine 100 unit/mL (3 mL) subcutaneous pen (Lantus Solostar U-100 Insulin) 24 unit subcut QHS 01/02/23 [History Last Taken Unknown] insulin lispro 100 unit/mL subcutaneous pen (Humalog KwikPen (U-100) Insulin) 6 unit subcut BID 01/02/23 [History Last Taken Unknown] levothyroxine 150 mcg capsule 150 mcg PO DAILY 01/02/23 [History Last Taken Unknown] melatonin 3 mg tablet 3 mg PO QHS 01/02/23 [History Last Taken Unknown] midodrine 10 mg tablet 10 mg PO DAILY 01/02/23 [History Last Taken Unknown] nystatin 100,000 unit/gram topical powder 1 applic topical PRN PRN Skin Intervention 01/02/23 [History Last Taken Unknown] ondansetron HCl 4 mg tablet 4 mg PO Q6H PRN Nausea 01/02/23 [History Last Taken Unknown] pantoprazole 40 mg tablet,delayed release 40 mg PO DAILY 01/02/23 [History Last Taken Unknown] polyethylene glycol 3350 17 gram oral powder packet 17 g PO DAILY PRN constipation 01/02/23 [History Last Taken Unknown] prednisone 5 mg tablet 5 mg PO DAILY 01/02/23 [History Last Taken Unknown] promethazine 12.5 mg tablet 12.5 mg PO Q8H PRN Nausea 01/02/23 [History Last Taken Unknown] sennosides 8.6 mg-docusate sodium 50 mg capsule (Senna Plus) 1 tab-cap PO BID Constipation 01/02/23 [History Last Taken Unknown] sodium phosphates 19 gram-7 gram/118 mL enema (Fleet Enema) 118 ml PA DAILY PRN Constipation 01/02/23 [History Last Taken Unknown] tacrolimus 1 mg capsule, immediate-release (Prograf) 2 mg PO Q12H 01/02/23 [History Last Taken Unknown] trazodone 50 mg tablet 75 mg PO QHS 01/02/23 [History Last Taken Unknown] oxycodone 10 mg tablet 10 mg PO Q4H PRN pain 2 days #12 tabs 01/04/23 [Rx Last Taken Unknown] amlodipine 5 mg tablet (Norvasc) 5 mg PO DAILY 04/21/23 [History Last Taken Unknown] calcitriol 0.5 mcg capsule 1 mcg PO .COMPLEX 04/21/23 [History Last Taken Unknown] cephalexin 500 mg capsule 500 mg PO Q12 #14 CAPSULES 04/21/23 [Rx Last Taken Unknown] gabapentin 100 mg capsule 100 mg PO DAILY 04/21/23 [History Last Taken Unknown] mupirocin 2 % topical ointment 1 applic topical QHS 04/21/23 [History Last Taken Unknown] sevelamer HCl 800 mg tablet 2,400 mg PO TID 10/15/23 [History Last Taken Unknown] Allergy/AdvReac Type Severity Reaction Status Date / Time No Known Allergies Allergy Verified 07/16/23 14:54 Family History Mother Hypertension Diabetes Father Hypertension Diabetes Surgical History S/P colostomy S/P foot surgery S/P unilateral above knee amputation Social History housing: retirement Smoking Status: Never smoker alcohol intake: never substance use type: does not use ROS ROS ED ROS Narrative Chills. Nausea. Chest and abdominal discomfort. Mild cough. Review of Systems ROS Unobtainable: Denies due to encephalopathy Constitutional Constitutional ED: Reports chills; Denies fever(s) Eyes Eyes: Reports none ENT ENT ED: Denies ear pain, rhinorrhea or sore throat Cardiovascular Cardiovascular: Reports chest pain Respiratory/Chest Respiratory/Chest: Reports cough; Denies dyspnea Gastrointestinal Gastrointestinal: Reports abdominal pain and nausea; Denies diarrhea or vomiting Genitourinary Genitourinary ED: Denies dysuria or hematuria Musculoskeletal Musculoskeletal: Denies arthralgias Neurologic Neurologic: Denies headache(s) Psychiatric Psychiatric: Denies anxiety or depression Endocrine Endocrinology: Denies cold intolerance Hematologic/Lymphatic Hematologic/Lymphatic: Denies easy bleeding or easy bruising Allergic/Immunologic Allergic/Immunologic ED: Denies mouth swelling, tongue swelling or urticaria EXAM Physical Exam Narrative Exam Narrative: 37-year-old male chronically ill vital signs are stable. His pulse ox on oxygen is only 90% is hypoxic. H EENT exam moist mucous membranes. Neck nontender no lymphadenopathy. Lungs clear to auscultation bilaterally. Heart rate 85 no murmur appreciated chest wall nontender. Abdomen soft nondistended normal bowel sounds no peritoneal signs. Mild epigastric and upper abdominal tenderness. No peritoneal signs. No Birch sign. No McBurney's point tenderness. No obstruction or hernia. left lower quadrant colostomy bag. Extremities moves all 4. Nontender. Trace edema. Neurologically is awake and alert with no focal motor deficits. Const Vital Signs: 07/16/23 13:24 07/16/23 14:53 07/16/23 14:58 Temperature 98.5 F Temperature Source Oral Pulse Rate 85 84 Respiratory Rate 21 H 18 Blood Pressure 192/100 H 168/93 H Blood Pressure Mean 130 118 Pulse Ox 92 97 Oxygen Delivery Method Nasal Cannula Nasal Cannula Oxygen Flow Rate (L/min) 90 2 07/16/23 15:15 Temperature Temperature Source Pulse Rate 83 Respiratory Rate 14 Blood Pressure 175/97 H Blood Pressure Mean 123 Pulse Ox 96 Oxygen Delivery Method Room Air Oxygen Flow Rate (L/min) Positive well nourished, well developed and obese; Negative for cachectic, contractures or unkempt General Appearance ED: well developed and NAD; Negative for unkempt, cachectic, contractures or pallor Nutritional Appearance: obese; Negative for cachectic HEENT Reports moist mucous membranes normocephalic and atraumatic; Negative for trauma or tenderness Eyes PERRL and EOMs intact bilaterally General Eye ED: Negative for pale conjunctiva, scleral icterus or other Neck no lymphadenopathy, supple and no JVD General: Negative for tenderness or other Chest Wall inspection of chest normal and palpation of chest normal Chest: Negative for tenderness or other Resp normal respiratory effort and clear to auscultation bilaterally Effort and Inspection: Negative for respiratory distress Auscultation: Negative for rales, rhonchi or wheezes Cardio regular rate, regular rhythm, S1 normal heart sound, S2 normal heart sound and no murmurs Peripheral Pulses: pulses 2+ throughout GI normal to inspection, nondistended, normoactive bowel sounds, soft to palpation, non-distended and no masses; Negative for non-tender GI Narrative: Abdominal tenderness. No Birch sign. No obstruction. No McBurney's point tenderness. No peritoneal signs. Back/Spine no CVA tenderness and no thoracic nor lumbar tenderness Extremity Negative for normal to inspection General Extremety ED: Yes edema General Extremity: edema Neuro oriented x3 and CN's II-XII intact bilaterally Sensorium / Orientation: awake, alert, oriented to person, oriented to place and oriented to time Motor Exam: strength 5/5 throughout Psych Appearance: Negative for unkempt Mood & Affect: Negative for depressed, anxious or tearful Skin no rashes or lesions noted and no wounds General Skin Exam: Negative for jaundice or pallor Rashes: No rashes noted Trauma: Negative for abrasion or laceration MDM MDM MDM Narrative Medical decision making narrative: 37-year-old male not feeling well with chest and abdominal pain. This could be as simple as a viral syndrome versus pneumonia versus CHF versus gallbladder, liver disease or pancreatitis. Labs are being obtained. Chest x-ray. Undergo cardiac workup. Once we get some of his test back then I will determine if he needs a CAT scan what type. Exam at 230 4:40 PM patient is resting comfortably. Is really no significant abdominal pain just some mild upper abdominal tenderness. We are awaiting the CT of his chest that was ordered as an outpatient that was scheduled to be done today at 3 so they went ahead and did it and also CT abdomen and pelvis. I have checked that out to the afternoon physician will check there is results signet on the nose the patient will be discharged back to his extended care facility. History & Record Review Discussion w/independent historian: Patient Additional record(s) reviewed:: Prior inpatient record, Prior outpatient record, Prior ED visit and Prior labs Lab Data Attestation: I reviewed the patient's lab results. Lab results narrative: White count 9.5. H&H 10.7 and 33.7 consistent with his chronic anemia. Platelets 182. PT/INR of 17 and 1. Electrolytes show sodium 132. Gap is 6. BUN is 75 creatinine 8.1 consistent with his end-stage renal disease. Glucose 117. Liver test unremarkable. Alkaline phosphatase 175. Troponin normal at 18. Lipase normal at 55. D-dimer is normal at 0.37 Labs: Laboratory Results - last 24 hr 07/16/23 14:10 WBC 9.5 RBC 3.62 L Hgb 10.7 L Hct 33.7 L MCV 93.1 MCH 29.6 MCHC 31.8 L RDW Std Deviation 45.1 H RDW Coeff of Shanta 13.3 Plt Count 182 MPV 10.4 Immature Gran % (Auto) 0.500 Neut % (Auto) 70.9 H Lymph % (Auto) 17.6 L [place] % (Auto) 7.2 Eos % (Auto) 3.0 Baso % (Auto) 0.8 Absolute Neuts (auto) 6.7 Absolute Lymphs (auto) 1.68 Nucleated RBC % 0 PT 17.0 H INR 1.4 D-Dimer Quant (PE/DVT) 0.37 Sodium 132 L Potassium 4.8 Chloride 97 L Carbon Dioxide 29.0 Anion Gap 6 BUN 75 H Creatinine 8.16 H* Estim Creat Clear Calc 17.66 Est GFR (MDRD) Af Amer 10 L Est GFR (MDRD) Non-Af 8 L BUN/Creatinine Ratio 9.2 L Glucose 117 H Calcium 8.9 Total Bilirubin 0.60 AST 14 L ALT 18 Alkaline Phosphatase 175 H Troponin I High Sens 18 Total Protein 9.5 H Albumin 2.9 L Globulin 6.6 H Albumin/Globulin Ratio 0.4 L Lipase 55 Radiography Chest X-Ray - ED: 1 View, Read by ED Physician, Lungs, Mediastinum, Bony Structures, No Acute Disease, Chronic Changes and Cardiomegaly Diagnostic Testing: X-ray, portable, single view interpreted by myself shows chronic cardiomegaly. No acute infiltrate. Normal lung núñez. No acute abnormality. Rhythm Strip Rhythm Strip: Sinus Rhythm Rate: 84 Ectopy: None EKG Initial EKG: Attestation: I personally reviewed and interpreted this EKG as follows: Interpretation: Sinus Rhythm and No Acute Injury Pattern Comments: Sinus rhythm rate 84 no acute signs of NH or ischemia. Unchanged from her prior EKG from April of this past year. Prior EKG tracings: available for review Prior: Unchanged Discharge Plan Triage Chief Complaint: Chest Pain ED Provider: Ayo Foss Dx/Rx/DC Orders Clinical Impression: 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 disease, History of diabetes mellitus, Abdominal pain Instructions: Abdominal Pain Prescriptions: No Action atorvastatin 40 mg Tablet 40 mg PO QHS acetaminophen 325 mg Tablet 650 mg PO Q4H PRN (Reason: PAIN/FEVER) carvedilol 12.5 mg Tablet 12.5 mg PO BID Rx Instructions: must administer with a meal/food acetaminophen 650 mg Tablet 650 mg PO Q4H PRN (Reason: PAIN/FEVER) ascorbic acid (vitamin C) 500 mg Tablet 500 mg PO DAILY bisacodyl 10 mg Suppository 10 mg PA DAILY PRN (Reason: Constipation) aluminum-magnesium hydroxide 225-200 mg/5 mL Suspension 30 ml PO Q4H PRN PRN (Reason: GI DISTRESS) darbepoetin jacki in polysorbat 40 mcg/mL Solution 40 mcg IV X1 PRN (Reason: DIALYSIS) Rx Instructions: DIALYSIS ADMINISRATION ONLY glucagon 1 mg Kit 1 mg IM PRN PRN (Reason: Hypoglycemia) dextrose [Glucose Gel] 40 % Gel 15 g PO Q15M PRN (Reason: Hypoglycemia) Rx Instructions: until symptoms of low blood sugar are controlled famotidine 20 mg Tablet 20 mg PO DAILY Fleet Enema 19-7 gram/118 mL Enema 118 ml PA DAILY PRN (Reason: Constipation) gabapentin 300 mg Capsule 300 mg PO QHS guaifenesin 100 mg/5 mL Syrup 400 mg PO Q6H PRN (Reason: Cough) cetylpyridinium chloride Lozenge 1 yunior MUCOUS MEMBRANE Q3H PRN (Reason: Sore Throat) insulin lispro [Humalog KwikPen Insulin] 100 unit/mL Insulin Pen 6 unit SUBCUT BID escitalopram oxalate 10 mg Tablet 10 mg PO DAILY Eliquis 5 mg Tablet 5 mg PO BID trazodone 50 mg Tablet 75 mg PO QHS prednisone 5 mg Tablet 5 mg PO DAILY hydralazine 25 mg Tablet 25 mg PO Q8 melatonin 3 mg Tablet 3 mg PO QHS pantoprazole 40 mg Tablet,Delayed Release (Dr/Ec) 40 mg PO DAILY clotrimazole-betamethasone 1-0.05 % Cream 1 applic TOPICAL QHS tacrolimus [Prograf] 1 mg Capsule 2 mg PO Q12H midodrine 10 mg Tablet 10 mg PO DAILY Rx Instructions: q sat, , sat, fri for hypotension prior to dialysis Hold BP >130/90 insulin glargine [Lantus Solostar U-100 Insulin] 100 unit/mL (3 mL) Insulin Pen 24 unit SUBCUT QHS levothyroxine 150 mcg Capsule 150 mcg PO DAILY polyethylene glycol 3350 17 gram Powder In Packet 17 g PO DAILY PRN (Reason: constipation) promethazine 12.5 mg Tablet 12.5 mg PO Q8H PRN (Reason: Nausea) ondansetron HCl 4 mg Tablet 4 mg PO Q6H PRN (Reason: Nausea) nystatin 100,000 unit/gram Powder 1 applic TOPICAL PRN PRN (Reason: Skin Intervention) Senna Plus 8.6-50 mg Capsule 1 tab-cap PO BID oxycodone 10 mg tablet 10 mg PO Q4H PRN (Reason: pain) 2 Days Qty: 12 0RF calcitriol 0.5 mcg capsule 1 mcg PO .COMPLEX Rx Instructions: 1 mcg orally sat, , sat, paola, fri; gabapentin 100 mg capsule 100 mg PO DAILY amlodipine [Norvasc] 5 mg tablet 5 mg PO DAILY sevelamer HCl 800 mg tablet 2,400 mg PO TID Rx Instructions: must administer with a meal/food mupirocin 2 % ointment 1 applic topical QHS Rx Instructions: apply to left ischium topically cephalexin [cephalexin] 500 mg capsule 500 mg PO Q12 Qty: 14 0RF Primary Care Provider: Vanessa Hutchisn Referrals: Vanessa Hutchins MD [Primary Care Provider] - 3-5 Days if not improving Activity Restrictions/Additional Instructions: Your labs did not show any significant abnormalities today. Follow-up with your extended care facility physician. Disposition Disposition: Home, Self Care
[2023-07-16 14:23] LABS: Absolute Lymphocyte Count 1.68 X10^3/uL (0.83-4.51); Absolute Neutrophil Count 6.7 X10^3/uL (2.0-7.7); Basophil# 0.08 X10^3/uL; Basophil% 0.8 % (0-1); Eosinophil# 0.29 X10^3/uL; Hematocrit 33.7 % (40-54); Hemoglobin 10.7 g/dL (13.0-16.5); Lymphocyte # 1.68 X10^3/ul (0.83-4.51); Lymphocyte % 17.6 % (19-41); Mean Corp Hgb Conc 31.8 g/dL (32-36); Mean Corpuscular Hgb 29.6 pg (27.0-32.0); Mean Corpuscular Volume 93.1 fL (80-94); Mean Platelet Vol. 10.4 fl (6.2-12.0); Monocyte# 0.69 X10^3/uL; Monocyte% 7.2 % (0-10); NRBC Flagged by Analyzer 0 % (0-5); Neutrophil # 6.74 X10^3/uL (2.7-7.7); Neutrophil % 70.9 % (47-70); Platelet Count 182 K/mm3 (150-450); RBC Distribution Width CV 13.3 % (11.6-14.6); RBC Distribution Width SD 45.1 fl (35.1-43.9); Red Blood Count 3.62 M/mm3 (4.6-6.2); White Blood Count 9.5 K/mm3 (4.4-11.0)
[2023-07-16 14:37] LABS: D-Dimer Quantitative (DVT/PE) 0.37 FEU/ug/m (0.27-0.49)
[2023-07-16 14:43] LABS: International Normalized Ratio 1.4
--- NOTE | 2023-07-16 14:47 | ED.RN ---
creatinine 8.[address] paz notified
[2023-07-16 14:49] LABS: ALB/GLOB Ratio 0.4 RATIO (0.9-2.4); AST(SGOT) 14 U/L (15-37); Alanine Aminotransfer ALT/SGPT 18 U/L (16-61); Albumin, Serum 2.9 g/dL (3.2-5.0); Alkaline Phosphatase 175 U/L (45-117); Anion Gap 6 (5-15); BUN 75 mg/dL (7-18); BUN/Creat Ratio 9.2 RATIO (10-20); Calcium,Total 8.9 mg/dL (8.5-10.1); Chloride 97 mmol/L (98-107); Creatinine, Serum 8.16 mg/dL (0.70-1.30); EST Glomerular Filtration Rate 8 mL/min (>60); Est Glom Filt Rate - Afr Amer 10 mL/min (>60); Estimated Creatinine Clearance 17.66 ml/min; Globulin 6.6 g/dL (2.2-4.2); Glucose 117 mg/dL (74-106); Lipase 55 U/L (13-75); Potassium 4.8 mmol/L (3.5-5.1); Protein, Total 9.5 g/dL (6.4-8.2); Sodium Level 132 mmol/L (136-145); Troponin-I HS 18 pg/mL (3.0-78.0)
--- NOTE | 2023-07-16 15:15 | CT_ITS ---
STUDY: CT ABDOMEN AND PELVIS WITH CONTRAST REASON FOR EXAM: Male, 37 years old. CHEST PAIN, ABDOMEN PAIN, ESRD, FAILED KIDNEY TRANSPLANT ON DIALYSIS, DIABETES, COLOSTOMY RADIATION DOSAGE (If Supplied By Facility): CTDIvol = ( 21.198 ) mGy, DLP = ( 2238.69 ) mGycm TECHNIQUE: Transaxial images were obtained from the dome of the diaphragm to the symphysis pubis without oral contrast. IV 100mL Isovue-370 was administered. Sagittal and coronal images were reconstructed. Individualized dose optimization techniques were used for this CT. COMPARISON: None. FINDINGS: There are chronic interstitial fibrotic changes of the lung bases. The visualized portions of the heart are within normal limits. Normal liver. Folds are noted within the gallbladder without wall thickening or pericholecystic fluid. Normal spleen, there are well-defined accessory spleens. Normal pancreas. Normal bilateral adrenal glands. [place] kidneys are atrophic without a discrete lesion. There is a transplanted kidney in the right lower quadrant. Calyces are mildly dilated without obstructing stone. Normal visualized stomach. Nondistended fluid-filled small bowel loops are noted consistent with ileus. Retained stool throughout the colon, there is a left lower quadrant ostomy site which is free of complication. There is non-visualization of the appendix. Normal abdominal aorta. Normal inferior vena cava. There are scattered subcentimeter in short axis dimension mesenteric and retroperitoneal lymph nodes, likely reactive The bladder is incompletely distended There are prostatic calcifications. Lumbar spine is unremarkable. There is a decubitus ulcer in the left gluteus with extension into and sclerotic and erosive involvement of the left initial tuberosity. This is concerning for osteomyelitis. There is no demonstrated femoral or pelvic fracture. CT/Abdomen/Pelvis W IV Cont ONLY IMPRESSION: Decubitus ulcer in the left gluteus with involvement of the left initial tuberosity with sclerotic and erosive changes concerning for osteomyelitis. Transplanted right kidney shows dilated calyces without obstructing stone. [place] kidneys are atrophic without suspicious lesion Small bowel ileus Retained stool throughout the colon, left lower quadrant ostomy site free of complication Electronically Signed: Lyle Perrin MD at 16:38 EST ,
--- NOTE | 2023-07-16 15:18 | CT_ITS ---
STUDY: CTA CHEST REASON FOR EXAM: Male, 37 years old. CHEST PAIN, ABDOMEN PAIN, ESRD, FAILED KIDNEY TRANSPLANT ON DIALYSIS, DIABETES, COLOSTOMY RADIATION DOSAGE (If Supplied By Facility): CTDIvol = ( 21.19 ) mGy, DLP = ( 2238.69 ) mGycm TECHNIQUE: The examination was performed with the intravenous administration of IV 100mL Isovue-370. Post-processing of the angiographic images was performed, with multiplanar reformation and 3D reconstruction. Individualized dose optimization techniques were used for this CT. COMPARISON: None. FINDINGS: There is limited enhancement of the main pulmonary artery and right and left pulmonary arteries. There is limited enhancement of the bilateral peripheral pulmonary arteries. There is no demonstrated pulmonary embolism however, the contrast bolus within the pulmonary arteries is not optimal, and a subtle filling defect could be present and overlooked particularly in the distal vessels. Normal thoracic aorta and visualized great vessels. There is no demonstrated aortic dissection. Normal heart and pericardium. There are calcifications of the coronary arteries. Normal mediastinum. Normal hilar regions. There is peribronchial thickening. Lungs are expanded with superimposed interstitial edema and left basilar atelectasis. Normal pleura. Normal chest wall structures. Normal osseous structures. Abdomen reported on a separate study performed today CT/CTA Chest W/WO Contrast IMPRESSION: No demonstrated PE, or thoracic aortic aneurysm or dissection. However, the contrast bolus within the pulmonary arteries is not optimal No organized infiltrate or effusion, there is evidence of chronic bronchitis and left basilar atelectasis No suspicious adenopathy Electronically Signed: Lyle Perrin MD at 16:41 EST ,
[2023-07-16] MEDS: Piperacil/Tazobactam 3.375 GM in 0.9% Normal Saline (50mL MB+) 50 ML IV (18:27)
--- NOTE | 2023-07-16 18:27 | HP.PCM.HOS_ITS ---
HPI - General General Date of Admission: 07/16/23 Date of Service: 07/16/23 Chief Complaint: Fatigue, malaise, mild cough, chest discomfort, chills. HPI Narrative The patient is a 37 y/o M w/ PMHx: Obesity, Chronic normocytic anemia/AOCD, Ch ronic Systolic CHF, HTN, HLD, ESRD on HD T s/p failed Txp, Hypothyroidism, Depression and Anxiety, GERD, Diabetes mellitus type II w/ history of previous diabetic foot wounds, chronic left ischial/sacral wound, incomplete paraplegia following renal transplant per patient report secondary to severe clots of some sort but poor historian, s/p recent L SERVANDOA residing at a SNF who presents to the [facility] ED on 07/16/2023 with history of chest discomfort gradual over the last several days noted to be continuous and dull in nature not worsened by anything specific with nausea and recent cough with no emesis with dialysis last day prior but unfortunately is not felt well since at least Saturday with chills but no fever prompting eventual ED evaluation. He does report making limited urine which is baseline. He denies any recent diarrhea. Patient does report mild upper respiratory symptoms with congestion and mild rhinorrhea but not severe. He denies any ill contacts. Workup in the ED included T98.5, heart rate 85, BP initially 192/100, respiratory rate 21, initially 92% on 2 L nasal cannula with most recent vitals heart rate 79, BP 169/81, respiratory rate 18, 95% on room air, CBC with WBC 9.5, hemoglobin 10.7, MCV 93.1, platelet 182 without marked shift, coags with PT 17, INR 1.4, D-dimer 0.37, CMP with sodium 132, chloride 97, BUN/creatinine 75/8.16, glucose 117, alk phos 175 otherwise hepatic profile not marked, lipase 55, troponin 18, SARS COVID/influenza/RSV PCR negative, chest x-ray without acute findings/CT abdomen and pelvis with decubitus ulcer left gluteus region with involvement of the left ischial tuberosity with changes concerning for osteomyelitis/CTPA without acute findings/PNA/dissection, EKG with sinus rhythm with no acute evidence of ischemia. In the ED patient ad ministered IV Zosyn and vancomycin. [facility] Medical History Acute kidney failure Acute on chronic systolic (congestive) heart failure Acute pulmonary edema Acute respiratory failure with hypoxia Anemia in chronic kidney disease Dependence on renal dialysis Depression End stage renal disease Gastro-esophageal reflux disease without esophagitis Hyperkalemia Hyperlipemia Hyperosmolality and hypernatremia Hypertensive heart and chronic kidney disease with heart failure and stage 1 through stage 4 chronic kidney disease, or unspecified chronic kidney disease Hypomagnesemia Hypothyroidism Kidney transplant failure Neurogenic bowel Neuromuscular dysfunction of bladder, unspecified Other acute osteomyelitis, left ankle and foot Other pericardial effusion (noninflammatory) Other pulmonary embolism without acute cor pulmonale Paraplegia, incomplete Pericardial effusion (noninflammatory) Pneumonia Pressure ulcer of left heel, unspecified stage Pyrexia SIRS (systemic inflammatory response syndrome) Type 2 diabetes mellitus with diabetic chronic kidney disease Home Medications acetaminophen 325 mg tablet 650 mg PO Q4H PRN PAIN/FEVER 01/02/23 [History Last Taken 04/21/23] apixaban 5 mg tablet (Eliquis) 5 mg PO BID 01/02/23 [History Last Taken 07/16/23] ascorbic acid (vitamin C) 500 mg tablet 500 mg PO DAILY 01/02/23 [History Last Taken 07/16/23] atorvastatin 40 mg tablet 40 mg PO QHS 01/02/23 [History Last Taken 07/15/23] bisacodyl 10 mg rectal suppository 10 mg TX DAILY PRN Constipation 01/02/23 [History Last Taken Unknown] carvedilol 12.5 mg tablet 12.5 mg PO BID 01/02/23 [History Last Taken 07/16/23] cetylpyridinium chloride 1 yunior mucous membrane Q3H PRN Sore Throat 01/02/23 [History Last Taken Unknown] clotrimazole-betamethasone 1 %-0.05 % topical cream 1 applic topical QHS 01/02/23 [History Last Taken 07/15/23] dextrose 40 % oral gel (Glucose Gel) 15 g PO Q15M PRN Hypoglycemia 01/02/23 [History Last Taken Unknown] famotidine 20 mg tablet 20 mg PO DAILY 01/02/23 [History Last Taken Unknown] hydralazine 25 mg tablet 25 mg PO Q8 01/02/23 [History Last Taken 07/16/23] insulin glargine 100 unit/mL (3 mL) subcutaneous pen (Lantus Solostar U-100 Insulin) 24 unit subcut QHS 01/02/23 [History Last Taken 07/16/23] insulin lispro 100 unit/mL subcutaneous pen (Humalog KwikPen (U-100) Insulin) 6 unit subcut BID 01/02/23 [History Last Taken 07/16/23] midodrine 10 mg tablet 10 mg PO MOTUTHFR 01/02/23 [History Last Taken 07/16/23] nystatin 100,000 unit/gram topical powder 1 applic topical PRN PRN Skin Intervention 01/02/23 [History Last Taken Unknown] ondansetron HCl 4 mg tablet 4 mg PO Q6H PRN Nausea 01/02/23 [History Last Taken Unknown] pantoprazole 40 mg tablet,delayed release 40 mg PO DAILY 01/02/23 [History Last Taken 07/16/23] polyethylene glycol 3350 17 gram oral powder packet 17 g PO DAILY PRN constipation 01/02/23 [History Last Taken Unknown] prednisone 5 mg tablet 5 mg PO DAILY 01/02/23 [History Last Taken 07/16/23] promethazine 12.5 mg tablet 12.5 mg PO Q8H PRN Nausea 01/02/23 [History Last Taken 07/15/23] sennosides 8.6 mg-docusate sodium 50 mg capsule (Senna Plus) 1 tab-cap PO BID Constipation 01/02/23 [History Last Taken 07/16/23] sodium phosphates 19 gram-7 gram/118 mL enema (Fleet Enema) 118 ml TX DAILY PRN Constipation 01/02/23 [History Last Taken Unknown] tacrolimus 1 mg capsule, immediate-release (Prograf) 2 mg PO Q12H 01/02/23 [History Last Taken 07/16/23] trazodone 50 mg tablet 125 mg PO QHS 01/02/23 [History Last Taken 07/15/23] oxycodone 10 mg tablet 10 mg PO Q4H PRN pain 2 days #12 tabs 01/04/23 [Rx Last Taken 07/14/23] amlodipine 5 mg tablet (Norvasc) 5 mg PO DAILY 04/21/23 [History Last Taken 07/16/23] calcitriol 0.5 mcg capsule 1.25 mcg PO DAILY 04/21/23 [History Last Taken 07/15/23] gabapentin 100 mg capsule 100 mg PO MOTUTHFR PHANTOM PAIN 04/21/23 [History Last Taken 07/16/23] sevelamer HCl 800 mg tablet 2,400 mg PO TID 04/21/23 [History Last Taken 07/16/23] ammonium lactate 5 % lotion 1 applic topical QHS 07/16/23 [History Last Taken 07/15/23] benzoyl peroxide 5 % lotion 1 applic topical QHS 07/16/23 [History Last Taken 07/15/23] diphenhydramine HCl 25 mg tablet 25 mg PO DAILY 07/16/23 [History Last Taken 07/13/23] escitalopram oxalate 20 mg tablet 20 mg PO DAILY 07/16/23 [History Last Taken 07/16/23] guaifenesin 100 mg/5 mL oral liquid (Adult Tussin Chest Congestion) 200 mg PO Q4H PRN cough 07/16/23 [History Last Taken Unknown] levothyroxine 150 mcg tablet 150 mcg PO DAILY 07/16/23 [History Last Taken 07/16/23] melatonin 10 mg tablet 10 mg PO QHS 07/16/23 [History Last Taken 07/15/23] Allergy/AdvReac Type Severity Reaction Status Date / Time No Known Allergies Allergy Verified 07/16/23 14:54 Family History Mother Hypertension Diabetes Father Hypertension Diabetes Surgical History S/P colostomy S/P foot surgery S/P unilateral above knee amputation Social History housing: retirement Smoking Status: Never smoker alcohol intake: never substance use type: does not use ROS ROS Narrative Admission Review of Systems: CONSTITUTIONAL: No weight loss, fever, + chills, weakness or fatigue. HEENT: + Mild congestion, rhinorrhea. Eyes: No visual loss, blurred vision, double vision or yellow sclerae. Ears, Nose, Throat: No hearing loss, sneezing. SKIN: + Significant left ischial/sacral wound, status post left AKA with chronic history of diabetic wounds. CARDIOVASCULAR: + chest pain, chronic edema unchanged. No palpitations, orthopnea, syncopal events. RESPIRATORY: + Cough without productive sputum, No dyspnea, wheezing, hemoptysis. GASTROINTESTINAL: No anorexia, nausea, vomiting or diarrhea, abdominal pain, melena, BRBPR. GENITOURINARY: No dysuria, frequency, urgency or retention. NEUROLOGICAL: + Chronic bilateral lower extremity reported functional paraplegia, chronic bilateral lower extremity paresthesias, no headache, dizziness, syncope, change in bowel or bladder control, seizure. MUSCULOSKELETAL:+ muscle, back pain, joint pain or stiffness. HEMATOLOGIC: + anemia, bleeding or bruising. LYMPHATICS: No enlarged nodes. No history of splenectomy. PSYCHIATRIC: + history of depression and anxiety. ENDOCRINOLOGIC: No reports of sweating, cold or heat intolerance. No polyuria or polydipsia. ALLERGIES: No history of asthma, hives, eczema or rhinitis. Vital Signs Vital Signs Vital Signs: 07/16/23 13:24 07/16/23 14:53 07/16/23 14:58 Temperature 98.5 F Temperature Source Oral Pulse Rate 85 84 Respiratory Rate 21 H 18 Blood Pressure 192/100 H 168/93 H Blood Pressure Mean 130 118 Pulse Ox 92 97 Oxygen Delivery Method Nasal Cannula Nasal Cannula Oxygen Flow Rate (L/min) 90 2 07/16/23 15:15 07/16/23 17:44 07/16/23 16:07 Temperature Temperature Source Pulse Rate 83 79 Respiratory Rate 14 20 H Blood Pressure 175/97 H 185/60 H Blood Pressure Mean 123 101 Pulse Ox 96 96 97 Oxygen Delivery Method Room Air Room Air Oxygen Flow Rate (L/min) 07/16/23 16:10 07/16/23 16:18 07/16/23 16:20 Temperature Temperature Source Pulse Rate 82 82 Respiratory Rate 22 H 23 H Blood Pressure Blood Pressure Mean Pulse Ox 96 96 97 Oxygen Delivery Method Oxygen Flow Rate (L/min) 07/16/23 16:30 07/16/23 16:40 07/16/23 16:50 Temperature Temperature Source Pulse Rate 82 82 82 Respiratory Rate 16 21 H 24 H Blood Pressure Blood Pressure Mean Pulse Ox 97 95 95 Oxygen Delivery Method Oxygen Flow Rate (L/min) 07/16/23 17:00 07/16/23 17:10 07/16/23 17:20 Temperature Temperature Source Pulse Rate Respiratory Rate Blood Pressure Blood Pressure Mean Pulse Ox 95 97 95 Oxygen Delivery Method Oxygen Flow Rate (L/min) 07/16/23 17:30 07/16/23 17:40 07/16/23 17:42 Temperature Temperature Source Pulse Rate 79 Respiratory Rate Blood Pressure 185/60 H Blood Pressure Mean 92 Pulse Ox 95 97 98 Oxygen Delivery Method Oxygen Flow Rate (L/min) 07/16/23 17:45 07/16/23 17:50 Temperature Temperature Source Pulse Rate 79 79 Respiratory Rate 18 18 Blood Pressure 169/81 H Blood Pressure Mean 97 Pulse Ox 95 94 Oxygen Delivery Method Room Air Oxygen Flow Rate (L/min) Weight Weight: 288 lb Body Mass Index (BMI) 39.0 Physical Exam Narrative PrescientPhysical Examination: General: Awake, alert, oriented x 3 and cooperative, laying in the ED bed, fatigued appearing. Skin: Normal color, normal turgor, no icterus, no cyanosis except notable for left ischial/sacral wound. HEENT: AT/NC, EOMI, PERRLA, mildly dry MM, no carotid bruits or JVD noted. Lungs: Diminished, greater bases, no evidence of any distress, no rales, ronchi or wheezing. Heart: Regular rate with regular rhythm; no gallop, rub audible, no reproducible discomfort with anterior chest palpation. Abdomen: Soft, obese, NTTP, colostomy present w/ appropriate appearing output, distant BS, difficult to appreciated distention and HSM given habitus. Extremities: No cyanosis, no clubbing, left upper extremity with dialysis access/aVF, see skin. Neurological: Patient awake, alert, oriented as noted, cognitive function intact; pupils equally reactive to light and accommodation, cranial nerves grossly normal, functional paraplegic, chronic paresthesias to the lower extremities unchanged, strength moderately to severely global decreased secondary to acute presentation and underlying comorbidities. Psychiatric: Affect appears fatigued, no acute evidence of depressive or anxiety feelings but does have underlying history. Results Lab / Micro Data 07/16/23 14:10 07/16/23 14:10 Labs: Laboratory Results - last 24 hr 07/16/23 14:10: WBC 9.5, RBC 3.62 L, Hgb 10.7 L, Hct 33.7 L, MCV 93.1, MCH 29.6, MCHC 31.8 L, RDW Std Deviation 45.1 H, RDW Coeff of Shanta 13.3, Plt Count 182, MPV 10.4, Immature Gran % (Auto) 0.500, Neut % (Auto) 70.9 H, Lymph % (Auto) 17.6 L, [place] % (Auto) 7.2, Eos % (Auto) 3.0, Baso % (Auto) 0.8, Absolute Neuts (auto) 6.7, Absolute Lymphs (auto) 1.68, Nucleated RBC % 0, PT 17.0 H, INR 1.4, D-Dimer Quant (PE/DVT) 0.37, Sodium 132 L, Potassium 4.8, Chloride 97 L, Carbon Dioxide 29.0, Anion Gap 6, BUN 75 H, Creatinine 8.16 H*, Estim Creat Clear Calc 17.66, Est GFR (MDRD) Af Amer 10 L, Est GFR (MDRD) Non-Af 8 L, BUN/Creatinine Ratio 9.2 L, Glucose 117 H, Calcium 8.9, Total Bilirubin 0.60, AST 14 L, ALT 18, Alkaline Phosphatase 175 H, Troponin I High Sens 18, Total Protein 9.5 H, Albumin 2.9 L, Globulin 6.6 H, Albumin/Globulin Ratio 0.4 L, Lipase 55 Micro: Microbiology 07/16/23 14:10 Mucosa - Nose SARS-CoV-2, Influenza & RSV (PCR) - Final Rhythm Strip Rhythm Strip: Sinus Rhythm Rate: 84 Ectopy: None Assessment & Plan Assessment/Plan (1) Decubitus ulcer of ischial area: PLAN: Plan The patient is a 37 y/o M w/ PMHx: Obesity, Chronic normocytic anemia/AOCD, Chronic Systolic CHF, HTN, HLD, ESRD on HD T s/p failed Txp, Hypothyroidism, Depression and Anxiety, GERD, Diabetes mellitus type II w/ history of diabetic foot wounds, chronic left ischial/sacral wound, incomplete paraplegia following renal transplant per patient report secondary to severe clots of some sort but poor historian, s/p recent L AKA residing at a SNF who presents to the [facility] ED on 07/16/2023 with history of chest discomfort gradual over the last several days noted to be continuous and dull in nature not worsened by anything specific with nausea and recent cough with no emesis with dialysis last day prior but unfortunately is not felt well since at least Saturday with chills but no fever prompting eventual ED evaluation. #1. Concern for Acutely Infected Chronic left ischial/sacral wound w/ Osteomyelitis: Will admit to PCU given concurrent atypical chest pain as noted, encourage offloading, daily dressing changes, status post colostomy secondary to issues with his chronic wound, request wound RN consultation, request plastic surgery involvement, request infectious disease involvement, maintain on IV vancomycin and IV Zosyn, judiciously hydrate given underlying HF history. Patient does have a chronic ischial wound known and certainly could have chronic osteo therefore ESR, CRP and procalcitonin requested #2. Chest Pain, atypical, lower suspicion for cardiac etiology, possible component acute viral syndrome: EKG in ED sinus rhythm with no acute evidence of ischemia, CXR w/ no acute cardiopulmonary finding, initial trop 18. To be cautious we will place on a monitored bed to assure no acute myocardial infarction with serial cardiac enzymes and EKGs. Given patient acute infectious presentation concerns will continue evaluation as noted above but if any cardiac enzyme rise low threshold to involve cardiology. Will defer any concept of a stress test at this time given presentation could certainly be related to an acute cautious etiology. Full respiratory viral panel requested. Mag requested. #3. ESRD on HD status post prior failed renal transplant: We will continue patient HD regimen of T, Th, Sat, will consult Nephrology. Will continue home calcitriol, midodrine, prednisone, tacrolimus regimen. From current list of not appear to left but if this does come to light that he is on this regimen given his possible acute infection with temporarily hold. #4. HFrEF: No history of prior echo in the system, will cautiously continue aspirin, statin, Coreg home regimen, not on ARMINDA inhibitor/ARB, hydralazine. Patient makes minimal urine of note. Continue HD as noted. #5. Diabetes mellitus type II w/ chronic prior right diabetic foot ulcerative wounds and chronic neuropathy status post previous left AKA: Hold oral home regimen, continue home insulin regimen, ADA diet, accu checks w/ ISS, continue home gabapentin regimen, will continue home gabapentin regimen. #6. Chronic normocytic anemia/AOCD: Admission hemoglobin 10.7, prior baseline noted to be 10, stable, continue to trend. #7. Hypertension: We will continue patient home Coreg, high relative, amlodipine regimen with hold parameters as needed, as needed IV hydralazine. #8. Hyperlipidemia: We will continue patient on statin therapy. #9. Hypothyroidism: We will continue patient home levothyroxine regimen. #10. Anxiety and depression: We will continue patient on escitalopram regimen. #11. Obesity: Weight loss and lifestyle changes encouraged. #12. GERD: Will continue home PPI regimen. #13. History of VTE: Patient describing history of extensive clots as a specific reason for his functional paraplegia to lower extremities, we will continue patient home Eliquis regimen. #14. DVT prophylaxis: We will continue patient home Eliquis regimen. #15. CODE STATUS: Full Code per facility paperwork. Charges/Coding Visit Charges Inpatient E&M: 76481 Init Hosp L3
[2023-07-16] MEDS: Vancomycin HCl 2,000 MG in 0.9% Normal Saline (500mL Bag) 500 ML 250 MG IV (19:22)
--- NOTE | 2023-07-16 19:36 | ED.RN ---
update given to [facility] for patient dispo, CLEMENCIA Pena
[2023-07-16 19:59] LABS: Procalcitonin 0.26 ng/mL (0.00-0.09)
[2023-07-16 20:01] LABS: Erythrocyte Sedimentation Rate 55 mm/hr (0-20)
[2023-07-16 20:16] LABS: Magnesium 2.1 mg/dL (1.6-2.6); Phosphorus 4.3 mg/dL (2.5-4.9)
[2023-07-16 22:00] LABS: Troponin-I HS 16 pg/mL (3.0-78.0)
[2023-07-16] MEDS: Gabapentin 300 MG Capsule PO (22:23)
[2023-07-16] MEDS: APIXABAN 5 MG TABLET PO (22:23)
[2023-07-16] MEDS: Acetaminophen 325 MG Tablet 650 MG PO (22:23)
[2023-07-16] MEDS: oxyCODONE 5 MG Tablet 10 MG PO (22:23)
[2023-07-16] MEDS: traZODone 50 MG Tablet 75 MG PO (22:24)
[2023-07-16] MEDS: Senna/Docusate Sodium 1 Tablet PO (22:24)
[2023-07-16] MEDS: Tacrolimus Anhydrous 1 MG Capsule 2 MG PO (22:24)
[2023-07-16] MEDS: Carvedilol 12.5 MG Tablet PO (22:25)
[2023-07-16] MEDS: Insulin Glargine-YFGN 100 UNIT/ML Pen 24 UNIT SC (22:25)
[2023-07-16] MEDS: Atorvastatin Calcium 40 MG Tablet PO (22:26)
[2023-07-16] MEDS: Miconazole Nitrate 43 GM Bottle 1 APPLIC TOPICAL (22:27)
[2023-07-16] MEDS: Menthol/Lanolin/Calamine/Znox 113 GM Tube 1 APPLIC TOPICAL (22:27)
--- NOTE | 2023-07-16 22:59 | PCM.RX.CS ---
Consult Antibiotic Management Pharmacy has been consulted to manage selected antibiotic: Vancomycin Type of Intervention Type of Consult: New start Suspected Infection Suspected Infection: Osteomyelitis Labs Labs: Sodium 132 mmol/L (136-145) L 07/16/23 14:10 Potassium 4.8 mmol/L (3.5-5.1) 07/16/23 14:10 Chloride 97 mmol/L (98-107) L 07/16/23 14:10 Carbon Dioxide 29.0 mmol/L (21.0-32.0) 07/16/23 14:10 Anion Gap 6 (5-15) 07/16/23 14:10 BUN 75 mg/dL (7-18) H 07/16/23 14:10 Creatinine 8.16 mg/dL (0.70-1.30) H* 07/16/23 14:10 Est GFR (MDRD) Af Amer 10 mL/min (>60) L 07/16/23 14:10 Est GFR (MDRD) Non-Af 8 mL/min (>60) L 07/16/23 14:10 BUN/Creatinine Ratio 9.2 RATIO (10-20) L 07/16/23 14:10 Glucose 117 mg/dL (74-106) H 07/16/23 14:10 Microbiology Microbiology: Microbiology 07/16/23 14:10 Mucosa - Nose SARS-CoV-2, Influenza & RSV (PCR) - Final Dosing Weight Weight used for dosin kg Estimated Creatinine Clearance Estimated Creatinine Clearance: 17.7 Goal Trough Goal Trough: 15-20 mcg/mL Pharmacy Plan for Drug Dosing Pharmacy Plan for Drug Dosing: An initial vancomycin IV dose of 2000mg was given 07/16/23 @1922. The next dose will be scheduled after the next dialysis session, which would be 07/18/23, if schedule holds. Pharmacy will verify with nursing the date/time of HD. Pharmacy Service will continue to monitor and adjust dosing as required.
[2023-07-16 23:00] LABS: Bedside Glucose 126 mg/dL (74-106)
[2023-07-16] MEDS: hydrALAZINE 25 MG Tablet PO (23:12)
[2023-07-16] MEDS: 0.9% Normal Saline (1000mL) 1,000 ML 100 ML IV (23:16)
--- NOTE | 2023-07-16 23:30 | EKG12_ITS ---
Test Reason : CP Blood Pressure : / mmHG Vent. Rate : 085 BPM Atrial Rate : 085 BPM P-R Int : 164 ms QRS Dur : 086 ms QT Int : 378 ms P-R-T Axes : 044 004 079 degrees QTc Int : 449 ms Normal sinus rhythm Nonspecific T wave abnormality Abnormal ECG When compared with ECG of 16-JUL-2023 13:45, MANUAL COMPARISON REQUIRED, DATA IS UNCONFIRMED Confirmed by LUIS ARANA, JEFF ([id number]), supervising film or videotape editor DEANNA TOWNSEND ([id number]) on 07/17/2023 9:01:54 AM Referred By: Confirmed By:JEFF SMITH MD
[2023-07-17] VITALS (9 sets, daily range): BP systolic 135–181; BP diastolic 64–103; PULSE 74–81; RESP 15–18; TEMP 36.4–36.7; O2SAT 92–99; BMI 40.4
[2023-07-17 00:43] LABS: Troponin-I HS 17 pg/mL (3.0-78.0)
[2023-07-17 00:53] LABS: M R Staph aureus DNA By PCR Negative (Negative); Probe Check PASS; Specimen Processing Control PASS
[2023-07-17 00:55] LABS: Staph aureus DNA By PCR POSITIVE (Negative)
[2023-07-17] MEDS: 0.9% Saline Lock 10 ML Syringe IV ×3 (03:32→20:57)
[2023-07-17] MEDS: hydrALAZINE 20 MG/ML Vial 10 MG IV (03:32)
[2023-07-17 03:53] LABS: Absolute Lymphocyte Count 1.71 X10^3/uL (0.83-4.51); Absolute Neutrophil Count 4.3 X10^3/uL (2.0-7.7); Basophil# 0.06 X10^3/uL; Basophil% 0.8 % (0-1); Eosinophils% 4.2 % (0-5); Hematocrit 32.1 % (40-54); Lymphocyte # 1.71 X10^3/ul (0.83-4.51); Lymphocyte % 23.9 % (19-41); Mean Corp Hgb Conc 31.2 g/dL (32-36); Mean Corpuscular Hgb 29.9 pg (27.0-32.0); Mean Corpuscular Volume 95.8 fL (80-94); Mean Platelet Vol. 10.4 fl (6.2-12.0); Monocyte# 0.77 X10^3/uL; Monocyte% 10.8 % (0-10); NRBC Flagged by Analyzer 0 % (0-5); Neutrophil # 4.27 X10^3/uL (2.7-7.7); Neutrophil % 59.9 % (47-70); Platelet Count 176 K/mm3 (150-450); RBC Distribution Width CV 13.4 % (11.6-14.6); RBC Distribution Width SD 46.5 fl (35.1-43.9); Red Blood Count 3.35 M/mm3 (4.6-6.2); White Blood Count 7.1 K/mm3 (4.4-11.0)
[2023-07-17 04:19] LABS: Troponin-I HS 21 pg/mL (3.0-78.0)
[2023-07-17 05:04] LABS: ALB/GLOB Ratio 0.5 RATIO (0.9-2.4); AST(SGOT) 12 U/L (15-37); Alanine Aminotransfer ALT/SGPT 18 U/L (16-61); Albumin, Serum 2.7 g/dL (3.2-5.0); Alkaline Phosphatase 157 U/L (45-117); Anion Gap 9 (5-15); BUN 85 mg/dL (7-18); BUN/Creat Ratio 9.1 RATIO (10-20); Calcium,Total 8.2 mg/dL (8.5-10.1); Chloride 102 mmol/L (98-107); Cholesterol 77 mg/dL (200); Creatinine, Serum 9.38 mg/dL (0.70-1.30); EST Glomerular Filtration Rate 7 mL/min (>60); Est Glom Filt Rate - Afr Amer 8 mL/min (>60); Estimated Creatinine Clearance 15.65 ml/min; Globulin 5.4 g/dL (2.2-4.2); Glucose 196 mg/dL (74-106); High Density Lipoprotein 27 mg/dL; Potassium 5.2 mmol/L (3.5-5.1); Protein, Total 8.1 g/dL (6.4-8.2); Sodium Level 138 mmol/L (136-145); Triglycerides 105 mg/dL; Very Low Density Lipoprotein 21 mg/dL (5-40)
[2023-07-17] MEDS: Levothyroxine 150 MCG Tablet PO (05:57)
[2023-07-17] MEDS: hydrALAZINE 25 MG Tablet PO ×3 (05:57→20:58)
[2023-07-17] MEDS: Gabapentin 100 MG Capsule PO (09:10)
[2023-07-17] MEDS: SEVELAMER CARBONATE 800 MG TABLET 2400 MG PO ×3 (09:10→17:09)
[2023-07-17] MEDS: predniSONE 5 MG Tablet PO (09:11)
[2023-07-17] MEDS: Menthol/Lanolin/Calamine/Znox 113 GM Tube 1 APPLIC TOPICAL ×3 (09:11→20:59)
[2023-07-17] MEDS: Escitalopram Oxalate 10 MG Tablet PO (09:11)
[2023-07-17] MEDS: APIXABAN 5 MG TABLET PO ×2 (09:11→20:57)
[2023-07-17] MEDS: amLODIPine 5 MG Tablet PO (09:12)
[2023-07-17] MEDS: Pantoprazole Sodium 40 MG Tablet PO (09:12)
[2023-07-17] MEDS: Senna/Docusate Sodium 1 Tablet PO (09:13)
[2023-07-17] MEDS: Calcitriol 0.25 MCG Capsule 1 MCG PO (09:13)
[2023-07-17] MEDS: Ascorbic Acid 500 MG Tablet PO (09:13)
[2023-07-17] MEDS: Tacrolimus Anhydrous 1 MG Capsule 2 MG PO ×2 (09:14→21:01)
[2023-07-17] MEDS: Carvedilol 12.5 MG Tablet PO ×2 (09:14→20:57)
[2023-07-17 09:39] LABS: Bedside Glucose 106 mg/dL (74-106)
--- NOTE | 2023-07-17 10:18 | WOUNDNOTE ---
wound photo:left ischium/posterior thigh
--- NOTE | 2023-07-17 10:18 | WOUNDNOTE ---
wound photo: left stump
--- NOTE | 2023-07-17 10:19 | WOUNDNOTE ---
skin photo: right foot
--- NOTE | 2023-07-17 10:34 | PN.HOSP_ITS ---
Reason for Visit Reason for Visit: Diagnoses Pressure ulcer of unspecified buttock, unspecified stage (07/16/23) Subjective Subjective Patient is a 37-year-old gentleman resident at an extended care facility with recent left AKA who presented with shortness of breath abdominal pain and chest discomfort. CT of the abdomen and pelvis obtained on admission demonstrated decubitus ulcer in the left gluteus with involvement of the ischial tuberosity with sclerotic and erosive changes concerning for osteomyelitis. Admitted to a monitored bed for subsequent management. Objective Data Objective Data Vital Signs: Vital Signs Temp Pulse Resp BP Pulse Ox O2 Del Method O2 Flow Rate 98 F 77 18 135/77 H 99 Nasal Cannula 2 07/17/23 09:06 07/17/23 09:06 07/17/23 09:06 07/17/23 09:06 07/17/23 09:06 07/17/23 09:06 07/17/23 09:06 Oxygen Flow Rate (L/min) 2 Oxygen Delivery Method Nasal Cannula Weight: 135.2 kg Body Mass Index (BMI) 40.4 Intake & Output: Intake and Output for Last 24 Hours 07/15/23 07/16/23 07/17/23 23:59 23:59 23:59 Intake Total 590 / 590 503.33 / 503.33 Output Total 550 / 550 Balance 590 / 140 -46.67 / -46.67 Lab / Micro Data 07/17/23 03:34 07/17/23 03:34 Labs: Laboratory Results - last 24 hr 07/16/23 14:10: WBC 9.5, RBC 3.62 L, Hgb 10.7 L, Hct 33.7 L, MCV 93.1, MCH 29.6, MCHC 31.8 L, RDW Std Deviation 45.1 H, RDW Coeff of Shanta 13.3, Plt Count 182, MPV 10.4, Immature Gran % (Auto) 0.500, Neut % (Auto) 70.9 H, Lymph % (Auto) 17.6 L, [place] % (Auto) 7.2, Eos % (Auto) 3.0, Baso % (Auto) 0.8, Absolute Neuts (auto) 6.7, Absolute Lymphs (auto) 1.68, Nucleated RBC % 0, PT 17.0 H, INR 1.4, D-Dimer Quant (PE/DVT) 0.37, Sodium 132 L, Potassium 4.8, Chloride 97 L, Carbon Dioxide 29.0, Anion Gap 6, BUN 75 H, Creatinine 8.16 H*, Estim Creat Clear Calc 17.66, Est GFR (MDRD) Af Amer 10 L, Est GFR (MDRD) Non-Af 8 L, BUN/Creatinine Ratio 9.2 L, Glucose 117 H, Calcium 8.9, Total Bilirubin 0.60, AST 14 L, ALT 18, Alkaline Phosphatase 175 H, Troponin I High Sens 18, Total Protein 9.5 H, Albumin 2.9 L, Globulin 6.6 H, Albumin/Globulin Ratio 0.4 L, Lipase 55 07/16/23 19:05: ESR 55 H, Phosphorus 4.3, Magnesium 2.1, C-React Prot Ext Range 17.80 H, Procalcitonin 0.26 H 07/16/23 21:12: POC Glucose 126 H 07/16/23 21:35: Troponin I High Sens 16 07/16/23 23:24: S.aureus Protein A PCR POSITIVE H, MRSA (PCR) Negative 07/16/23 23:43: Troponin I High Sens 17 07/17/23 03:34: WBC 7.1, RBC 3.35 L, Hgb 10.0 L, Hct 32.1 L, MCV 95.8 H, MCH 29.9, MCHC 31.2 L, RDW Std Deviation 46.5 H, RDW Coeff of Shanta 13.4, Plt Count 176, MPV 10.4, Immature Gran % (Auto) 0.400, Neut % (Auto) 59.9, Lymph % (Auto) 23.9, [place] % (Auto) 10.8 H, Eos % (Auto) 4.2, Baso % (Auto) 0.8, Absolute Neuts (auto) 4.3, Absolute Lymphs (auto) 1.71, Nucleated RBC % 0, Sodium 138, Potassium 5.2 H, Chloride 102, Carbon Dioxide 27.0, Anion Gap 9, BUN 85 H, Creatinine 9.38 H*, Estim Creat Clear Calc 15.65, Est GFR (MDRD) Af Amer 8 L, Est GFR (MDRD) Non-Af 7 L, BUN/Creatinine Ratio 9.1 L, Glucose 196 H, Calcium 8.2 L, Total Bilirubin 0.40, AST 12 L, ALT 18, Alkaline Phosphatase 157 H, Troponin I High Sens 21, Total Protein 8.1, Albumin 2.7 L, Globulin 5.4 H, Albumin/Globulin Ratio 0.5 L, Triglycerides 105, Cholesterol 77, LDL Cholesterol 29, VLDL Cholesterol 21, HDL Cholesterol 27 L 07/17/23 09:06: POC Glucose 106 Micro: Microbiology 07/16/23 14:10 Mucosa - Nose SARS-CoV-2, Influenza & RSV (PCR) - Final Radiography Diagnostic Testing: Radiology Impression Chest X-Ray 07/16/23 13:49 IMPRESSION: Moderate cardiomegaly and vascular congestion. Electronically Signed: Rickie Jay MD at 14:50 EST , Abdomen/Pelvis CT 07/16/23 15:15 IMPRESSION: Decubitus ulcer in the left gluteus with involvement of the left initial tuberosity with sclerotic and erosive changes concerning for osteomyelitis. Transplanted right kidney shows dilated calyces without obstructing stone. [place] kidneys are atrophic without suspicious lesion Small bowel ileus Retained stool throughout the colon, left lower quadrant ostomy site free of complication Electronically Signed: Lyle Perrin MD at 16:38 EST , Chest CTA 07/16/23 15:18 IMPRESSION: No demonstrated PE, or thoracic aortic aneurysm or dissection. However, the contrast bolus within the pulmonary arteries is not optimal No organized infiltrate or effusion, there is evidence of chronic bronchitis and left basilar atelectasis No suspicious adenopathy Electronically Signed: Lyle Perrin MD at 16:41 EST , Rhythm Strip Rhythm Strip: Sinus Rhythm Rate: 84 Ectopy: None Physical Exam Narrative GENERAL: cooperative HEENT: Atraumatic; normocephalic EYES; Anicteric, Normal Conjunctiva NECK; supple, normal thyroid, RESPIRATORY: Diminished to auscultation CARDIOVASCULAR: Regular S1 S2, GI: soft, normoactive bowel sounds, : No Renal angle tenderness; EXTREMITIES: No edema, no clubbing, MUSCULOSKELETAL: Left AKA NEURO: Awake; no lateralizing signs. SKIN: Stage IV decubitus ulcer PSYCH; Flat affect Assessment & Plan Assessment/Plan (1) Decubitus ulcer of ischial area: PLAN: Plan Patient is a 37-year-old gentleman resident at an extended care facility with recent left AKA who presented with shortness of breath abdominal pain and chest discomfort. CT of the abdomen and pelvis obtained on admission demonstrated decubitus ulcer in the left gluteus with involvement of the ischial tuberosity with sclerotic and erosive changes concerning for osteomyelitis. Admitted to a monitored bed for subsequent management. 1. Suspected infected left ischial/sacral wound with possible osteomyelitis. - Admitted to regular nursing floor patient started on broad-spectrum antibiotic therapy with consultation placed to plastic surgery as well as infectious disease. Consult was also placed to wound care nurse for dressing changes. Cultures were obtained on admission 2. End-stage renal disease ? Patient has history of failed renal transplant. Currently on hemodialysis on Tuesdays and Saturdays consult placed to nephrology for dialysis orders 3. Status post left AKA ? Supportive care 4. Anemia ? Secondary to anemia of end-stage renal disease monitoring H&H with plans to transfuse or if patient is deemed to be symptomatic 5. Dyslipidemia -Patient is on statin therapy, continued at home dose 6. Hypothyroidism - Patient is on levothyroxine home dose continued 7. Hypertension - Blood pressure controlled, home medications continued with dose adjustment as needed 8. Class III obesity with BMI of 40.4 ? Complicating care weight loss advised 9. Diabetes mellitus type II -patient's oral hypoglycemics held. Placed on long acting insulin, Accu-Cheks a.c. and at bedtime and covered with sliding scale insulin 10. GERD ? On PPI 11. Depression with anxiety ? Patient is on escitalopram did continue 12. History of previous VTE ? Patient is on apixaban did continue Time spent in the patient's overall evaluation,decision-making process, review of diagnostic data, adjustment of management, discussion with other providers, nursing nursing and ancillary staff involved in patient's care documentation,50 Minutes Charges/Coding Visit Charges Inpatient E&M: 69511 Subs Hosp L3
[2023-07-17] MEDS: Piperacil/Tazobactam 3.375 GM in 0.9% Normal Saline (50mL MB+) 50 ML IV ×2 (11:17→21:12)
[2023-07-17 11:41] LABS: Bedside Glucose 98 mg/dL (74-106)
--- NOTE | 2023-07-17 12:26 | CON.PCM_ITS ---
Assessment & Plan Assessment/Plan (1) Decubitus ulcer of ischial area: PLAN: Plan No evidence of acute findings of his ischial ulcer. Recommend continued offloading. Patient can be managed as an outpatient through Wound Care (Barbara Trevino who also saw wound) for the healing chronic ischial ulcer. HPI Consult Data Date of Consult: 07/17/23 PCP / Referring MD: This patient is a 37-year-old male with history of diabetes, renal transplant, and paraplegia. He had recently undergone an AKA at [facility]. He has a long standing (years) history of a ischial decubitus. He states that he is a recent transfer to his current facility. He states that facility has a wound doctor who has been treating the ischial area with a paste. HPI Narrative HPI Narrative: CHINA GUILLEN, is a 37 M who presents [facility] Medical History Acute kidney failure Acute on chronic systolic (congestive) heart failure Acute pulmonary edema Acute respiratory failure with hypoxia Anemia in chronic kidney disease Dependence on renal dialysis Depression End stage renal disease Gastro-esophageal reflux disease without esophagitis Hyperkalemia Hyperlipemia Hyperosmolality and hypernatremia Hypertensive heart and chronic kidney disease with heart failure and stage 1 through stage 4 chronic kidney disease, or unspecified chronic kidney disease Hypomagnesemia Hypothyroidism Kidney transplant failure Neurogenic bowel Neuromuscular dysfunction of bladder, unspecified Other acute osteomyelitis, left ankle and foot Other pericardial effusion (noninflammatory) Other pulmonary embolism without acute cor pulmonale Paraplegia, incomplete Pericardial effusion (noninflammatory) Pneumonia Pressure ulcer of left heel, unspecified stage Pyrexia SIRS (systemic inflammatory response syndrome) Type 2 diabetes mellitus with diabetic chronic kidney disease Home Medications acetaminophen 325 mg tablet 650 mg PO Q4H PRN PAIN/FEVER 01/02/23 [History Last Taken 04/21/23] apixaban 5 mg tablet (Eliquis) 5 mg PO BID 01/02/23 [History Last Taken 07/16/23] ascorbic acid (vitamin C) 500 mg tablet 500 mg PO DAILY 01/02/23 [History Last Taken 07/16/23] atorvastatin 40 mg tablet 40 mg PO QHS 01/02/23 [History Last Taken 07/15/23] bisacodyl 10 mg rectal suppository 10 mg [place] DAILY PRN Constipation 01/02/23 [History Last Taken Unknown] carvedilol 12.5 mg tablet 12.5 mg PO BID 01/02/23 [History Last Taken 07/16/23] cetylpyridinium chloride 1 yunior mucous membrane Q3H PRN Sore Throat 01/02/23 [History Last Taken Unknown] clotrimazole-betamethasone 1 %-0.05 % topical cream 1 applic topical QHS 01/02/23 [History Last Taken 07/15/23] dextrose 40 % oral gel (Glucose Gel) 15 g PO Q15M PRN Hypoglycemia 01/02/23 [History Last Taken Unknown] famotidine 20 mg tablet 20 mg PO DAILY 01/02/23 [History Last Taken Unknown] hydralazine 25 mg tablet 25 mg PO Q8 01/02/23 [History Last Taken 07/16/23] insulin glargine 100 unit/mL (3 mL) subcutaneous pen (Lantus Solostar U-100 Insulin) 24 unit subcut QHS 01/02/23 [History Last Taken 07/16/23] insulin lispro 100 unit/mL subcutaneous pen (Humalog KwikPen (U-100) Insulin) 6 unit subcut BID 01/02/23 [History Last Taken 07/16/23] midodrine 10 mg tablet 10 mg PO MOTUTHFR 01/02/23 [History Last Taken 07/16/23] nystatin 100,000 unit/gram topical powder 1 applic topical PRN PRN Skin Intervention 01/02/23 [History Last Taken Unknown] ondansetron HCl 4 mg tablet 4 mg PO Q6H PRN Nausea 01/02/23 [History Last Taken Unknown] pantoprazole 40 mg tablet,delayed release 40 mg PO DAILY 01/02/23 [History Last Taken 07/16/23] polyethylene glycol 3350 17 gram oral powder packet 17 g PO DAILY PRN constipation 01/02/23 [History Last Taken Unknown] prednisone 5 mg tablet 5 mg PO DAILY 01/02/23 [History Last Taken 07/16/23] promethazine 12.5 mg tablet 12.5 mg PO Q8H PRN Nausea 01/02/23 [History Last Taken 07/15/23] sennosides 8.6 mg-docusate sodium 50 mg capsule (Senna Plus) 1 tab-cap PO BID Constipation 01/02/23 [History Last Taken 07/16/23] sodium phosphates 19 gram-7 gram/118 mL enema (Fleet Enema) 118 ml [place] DAILY PRN Constipation 01/02/23 [History Last Taken Unknown] tacrolimus 1 mg capsule, immediate-release (Prograf) 2 mg PO Q12H 01/02/23 [Hi story Last Taken 07/16/23] trazodone 50 mg tablet 125 mg PO QHS 01/02/23 [History Last Taken 07/15/23] oxycodone 10 mg tablet 10 mg PO Q4H PRN pain 2 days #12 tabs 01/04/23 [Rx Last Taken 07/14/23] amlodipine 5 mg tablet (Norvasc) 5 mg PO DAILY 04/21/23 [History Last Taken 07/16/23] calcitriol 0.5 mcg capsule 1.25 mcg PO DAILY 04/21/23 [History Last Taken 07/15/23] gabapentin 100 mg capsule 100 mg PO MOTUTHFR PHANTOM PAIN 04/21/23 [History Last Taken 07/16/23] sevelamer HCl 800 mg tablet 2,400 mg PO TID 04/21/23 [History Last Taken 07/16/23] ammonium lactate 5 % lotion 1 applic topical QHS 07/16/23 [History Last Taken 07/15/23] benzoyl peroxide 5 % lotion 1 applic topical QHS 07/16/23 [History Last Taken 07/15/23] diphenhydramine HCl 25 mg tablet 25 mg PO DAILY 07/16/23 [History Last Taken 07/13/23] escitalopram oxalate 20 mg tablet 20 mg PO DAILY 07/16/23 [History Last Taken 07/16/23] guaifenesin 100 mg/5 mL oral liquid (Adult Tussin Chest Congestion) 200 mg PO Q4H PRN cough 07/16/23 [History Last Taken Unknown] levothyroxine 150 mcg tablet 150 mcg PO DAILY 07/16/23 [History Last Taken 07/16/23] melatonin 10 mg tablet 10 mg PO QHS 07/16/23 [History Last Taken 07/15/23] Allergy/AdvReac Type Severity Reaction Status Date / Time No Known Allergies Allergy Verified 07/16/23 14:54 Family History Mother Hypertension Diabetes Father Hypertension Diabetes Surgical History S/P colostomy S/P foot surgery S/P unilateral above knee amputation Social History housing: residential Smoking Status: Never smoker alcohol intake: never substance use type: does not use Physical Exam Narrative The patient is rolled on his side. He has a colostomy. The ischial area has evidence of a decubitus that has healed. The base of the previous ulcer is epithelialized. There is no open wound or drainage. There are some hy pertrophic skin in the surrounding area. Lab / Micro Data 07/17/23 03:34 07/17/23 03:34 Labs: Laboratory Results - last 24 hr 07/16/23 14:10: WBC 9.5, RBC 3.62 L, Hgb 10.7 L, Hct 33.7 L, MCV 93.1, MCH 29.6, MCHC 31.8 L, RDW Std Deviation 45.1 H, RDW Coeff of Shanta 13.3, Plt Count 182, MPV 10.4, Immature Gran % (Auto) 0.500, Neut % (Auto) 70.9 H, Lymph % (Auto) 17.6 L, [place] % (Auto) 7.2, Eos % (Auto) 3.0, Baso % (Auto) 0.8, Absolute Neuts (auto) 6.7, Absolute Lymphs (auto) 1.68, Nucleated RBC % 0, PT 17.0 H, INR 1.4, D-Dimer Quant (PE/DVT) 0.37, Sodium 132 L, Potassium 4.8, Chloride 97 L, Carbon Dioxide 29.0, Anion Gap 6, BUN 75 H, Creatinine 8.16 H*, Estim Creat Clear Calc 17.66, Est GFR (MDRD) Af Amer 10 L, Est GFR (MDRD) Non-Af 8 L, BUN/Creatinine Ratio 9.2 L, Glucose 117 H, Calcium 8.9, Total Bilirubin 0.60, AST 14 L, ALT 18, Alkaline Phosphatase 175 H, Troponin I High Sens 18, Total Protein 9.5 H, Albumin 2.9 L, Globulin 6.6 H, Albumin/Globulin Ratio 0.4 L, Lipase 55 07/16/23 19:05: ESR 55 H, Phosphorus 4.3, Magnesium 2.1, C-React Prot Ext Range 17.80 H, Procalcitonin 0.26 H 07/16/23 21:12: POC Glucose 126 H 07/16/23 21:35: Troponin I High Sens 16 07/16/23 23:24: S.aureus Protein A PCR POSITIVE H, MRSA (PCR) Negative 07/16/23 23:43: Troponin I High Sens 17 07/17/23 03:34: WBC 7.1, RBC 3.35 L, Hgb 10.0 L, Hct 32.1 L, MCV 95.8 H, MCH 29.9, MCHC 31.2 L, RDW Std Deviation 46.5 H, RDW Coeff of Shanta 13.4, Plt Count 176, MPV 10.4, Immature Gran % (Auto) 0.400, Neut % (Auto) 59.9, Lymph % (Auto) 23.9, [place] % (Auto) 10.8 H, Eos % (Auto) 4.2, Baso % (Auto) 0.8, Absolute Neuts (auto) 4.3, Absolute Lymphs (auto) 1.71, Nucleated RBC % 0, Sodium 138, Potassium 5.2 H, Chloride 102, Carbon Dioxide 27.0, Anion Gap 9, BUN 85 H, Creatinine 9.38 H*, Estim Creat Clear Calc 15.65, Est GFR (MDRD) Af Amer 8 L, Est GFR (MDRD) Non-Af 7 L, BUN/Creatinine Ratio 9.1 L, Glucose 196 H, Calcium 8.2 L, Total Bilirubin 0.40, AST 12 L, ALT 18, Alkaline Phosphatase 157 H, Troponin I High Sens 21, Total Protein 8.1, Albumin 2.7 L, Globulin 5.4 H, Albumin/Globulin Ratio 0.5 L, Triglycerides 105, Cholesterol 77, LDL Cholesterol 29, VLDL Cholesterol 21, HDL Cholesterol 27 L 07/17/23 09:06: POC Glucose 106 07/17/23 11:16: POC Glucose 98 Micro: Microbiology 07/16/23 19:05 Wound - Buttock Wound Culture - Preliminary Gram negative polo 07/16/23 14:10 Mucosa - Nose SARS-CoV-2, Influenza & RSV (PCR) - Final Rhythm Strip Rhythm Strip: Sinus Rhythm Rate: 84 Ectopy: None Imagaing Radiology Impression Chest X-Ray 07/16/23 13:49 IMPRESSION: Moderate cardiomegaly and vascular congestion. Electronically Signed: Rickie Jay MD at 14:50 EST , Abdomen/Pelvis CT 07/16/23 15:15 IMPRESSION: Decubitus ulcer in the left gluteus with involvement of the left initial tuberosity with sclerotic and erosive changes concerning for osteomyelitis. Transplanted right kidney shows dilated calyces without obstructing stone. [place] kidneys are atrophic without suspicious lesion Small bowel ileus Retained stool throughout the colon, left lower quadrant ostomy site free of complication Electronically Signed: Lyle Perrin MD at 16:38 EST , Chest CTA 07/16/23 15:18 IMPRESSION: No demonstrated PE, or thoracic aortic aneurysm or dissection. However, the contrast bolus within the pulmonary arteries is not optimal No organized infiltrate or effusion, there is evidence of chronic bronchitis and left basilar atelectasis No suspicious adenopathy Electronically Signed: Lyle Perrin MD at 16:41 EST ,
--- NOTE | 2023-07-17 12:42 | CASEMGMT ---
Patient is from [facility]. SW spoke with patient and his plan is to return to [facility] at discharge. Patient does plan on returning to [facility]. Patient declined a list of other facilities. Plan: d/c back to [facility] when medically ready. Naina HERRERA
[2023-07-17] MEDS: Acetaminophen 500 MG Tablet 1000 MG PO ×2 (14:41→20:58)
[2023-07-17] MEDS: HYDROmorphone 0.5 MG/0.5 ML SYRINGE IV ×2 (14:42→20:57)
--- NOTE | 2023-07-17 14:46 | PCM.CONS.R ---
Documented by User: KORI Merritt 07/17/23 14:56 Assessment & Plan Assessment/Plan (1) 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 disease: (2) Decubitus ulcer of ischial area: (3) Hyperkalemia: (4) Anemia of chronic disease: PLAN: Plan This is a 37-year-old -[place] male with past medical history significant for ESRD on hemodialysis at [facility] dialyzing on a Saturday, Saturday, , Saturday schedule followed by Dr. Granda, history of failed kidney transplant has been on tacrolimus and prednisone, chronic systolic heart failure, hypertension, hyperlipidemia, diabetes mellitus type 2, left AKA, history of chronic left ischial/sacral wounds, incomplete paraplegia who was brought to the emergency room for evaluation as patient had been complaining of mild cough, fever and chills. Testing for influenza, RSV and COVID were negative. Patient was admitted for acutely infected chronic left ischial/sacral wound with concern for osteomyelitis, started on IV antibiotics. Nephrology consulted for hemodialysis management. Patient last dialyzed yesterday. There is no acute indication for [employer]ROAD [employer] today. His potassium is mildly elevated at 5.2 and recommend low potassium diet restriction. With dialysis tomorrow patient will be on a 2K dialysate. Will attempt to remove fluid as patient/blood pressure tolerates; reviewed admission CXR. Will plan for dialysis again on Saturday. Patient has history of anemia of chronic disease, current hemoglobin is 10.0. Will monitor hemoglobin trends. He does not need REILLY with HD at this time. Patient has history of hypertension, current blood pressures acceptable on multiple antihypertensives. Further orders forthcoming as hospitalization evolves, thank you for allowing us participate in the care of Mr. Salgado. HPI Consult Data Date of Consult: 07/17/23 HPI Narrative HPI Narrative: CHINA SALGADO, is a 37 M with past medical history significant for ESRD on hemodialysis at [facility] dialyzing on a Saturday, Saturday, , Saturday schedule followed by Dr. Granda, history of failed kidney transplant has been on tacrolimus and prednisone, chronic systolic heart failure, hypertension, hyperlipidemia, diabetes mellitus type 2, left AKA, history of chronic left ischial/sacral wounds, incomplete paraplegia who was brought to the emergency room for evaluation as patient had been complaining of mild cough, fever and chills. Patient was admitted for acutely infected chronic left ischial/sacral wound with concern for osteomyelitis. Nephrology consulted for hemodialysis management. Patient reports [facility]. Patient currently denies complaints today. [facility] Medical History Acute kidney failure Acute on chronic systolic (congestive) heart failure Acute pulmonary edema Acute respiratory failure with hypoxia Anemia in chronic kidney disease Dependence on renal dialysis Depression End stage renal disease Gastro-esophageal reflux disease without esophagitis Hyperkalemia Hyperlipemia Hyperosmolality and hypernatremia Hypertensive heart and chronic kidney disease with heart failure and stage 1 through stage 4 chronic kidney disease, or unspecified chronic kidney disease Hypomagnesemia Hypothyroidism Kidney transplant failure Neurogenic bowel Neuromuscular dysfunction of bladder, unspecified Other acute osteomyelitis, left ankle and foot Other pericardial effusion (noninflammatory) Other pulmonary embolism without acute cor pulmonale Paraplegia, incomplete Pericardial effusion (noninflammatory) Pneumonia Pressure ulcer of left heel, unspecified stage Pyrexia SIRS (systemic inflammatory response syndrome) Type 2 diabetes mellitus with diabetic chronic kidney disease Home Medications acetaminophen 325 mg tablet 650 mg PO Q4H PRN PAIN/FEVER 01/02/23 [History Last Taken 04/21/23] apixaban 5 mg tablet (Eliquis) 5 mg PO BID 01/02/23 [History Last Taken 07/16/23] ascorbic acid (vitamin C) 500 mg tablet 500 mg PO DAILY 01/02/23 [History Last Taken 07/16/23] atorvastatin 40 mg tablet 40 mg PO QHS 01/02/23 [History Last Taken 07/15/23] bisacodyl 10 mg rectal suppository 10 mg OH DAILY PRN Constipation 01/02/23 [History Last Taken Unknown] carvedilol 12.5 mg tablet 12.5 mg PO BID 01/02/23 [History Last Taken 07/16/23] cetylpyridinium chloride 1 yunior mucous membrane Q3H PRN Sore Throat 01/02/23 [History Last Taken Unknown] clotrimazole-betamethasone 1 %-0.05 % topical cream 1 applic topical QHS 01/02/23 [History Last Taken 07/15/23] dextrose 40 % oral gel (Glucose Gel) 15 g PO Q15M PRN Hypoglycemia 01/02/23 [History Last Taken Unknown] famotidine 20 mg tablet 20 mg PO DAILY 01/02/23 [History Last Taken Unknown] hydralazine 25 mg tablet 25 mg PO Q8 01/02/23 [History Last Taken 07/16/23] insulin glargine 100 unit/mL (3 mL) subcutaneous pen (Lantus Solostar U-100 Insulin) 24 unit subcut QHS 01/02/23 [History Last Taken 07/16/23] insulin lispro 100 unit/mL subcutaneous pen (Humalog KwikPen (U-100) Insulin) 6 unit subcut BID 01/02/23 [History Last Taken 07/16/23] midodrine 10 mg tablet 10 mg PO MOTUTHFR 01/02/23 [History Last Taken 07/16/23] nystatin 100,000 unit/gram topical powder 1 applic topical PRN PRN Skin Intervention 01/02/23 [History Last Taken Unknown] ondansetron HCl 4 mg tablet 4 mg PO Q6H PRN Nausea 01/02/23 [History Last Taken Unknown] pantoprazole 40 mg tablet,delayed release 40 mg PO DAILY 01/02/23 [History Last Taken 07/16/23] polyethylene glycol 3350 17 gram oral powder packet 17 g PO DAILY PRN constipation 01/02/23 [History Last Taken Unknown] prednisone 5 mg tablet 5 mg PO DAILY 01/02/23 [History Last Taken 07/16/23] promethazine 12.5 mg tablet 12.5 mg PO Q8H PRN Nausea 01/02/23 [History Last Taken 07/15/23] sennosides 8.6 mg-docusate sodium 50 mg capsule (Senna Plus) 1 tab-cap PO BID Constipation 01/02/23 [History Last Taken 07/16/23] sodium phosphates 19 gram-7 gram/118 mL enema (Fleet Enema) 118 ml OH DAILY PRN Constipation 01/02/23 [History Last Taken Unknown] tacrolimus 1 mg capsule, immediate-release (Prograf) 2 mg PO Q12H 01/02/23 [History Last Taken 07/16/23] trazodone 50 mg tablet 125 mg PO QHS 01/02/23 [History Last Taken 07/15/23] amlodipine 5 mg tablet (Norvasc) 5 mg PO DAILY 04/21/23 [History Last Taken 07/16/23] calcitriol 0.5 mcg capsule 1.25 mcg PO DAILY 04/21/23 [History Last Taken 07/15/23] gabapentin 100 mg capsule 100 mg PO MOTUTHFR PHANTOM PAIN 04/21/23 [History Last Taken 07/16/23] sevelamer HCl 800 mg tablet 2,400 mg PO TID 04/21/23 [History Last Taken 07/16/23] ammonium lactate 5 % lotion 1 applic topical QHS 07/16/23 [History Last Taken 07/15/23] benzoyl peroxide 5 % lotion 1 applic topical QHS 07/16/23 [History Last Taken 07/15/23] diphenhydramine HCl 25 mg tablet 25 mg PO DAILY 07/16/23 [History Last Taken 07/13/23] escitalopram oxalate 20 mg tablet 20 mg PO DAILY 07/16/23 [History Last Taken 07/16/23] guaifenesin 100 mg/5 mL oral liquid (Adult Tussin Chest Congestion) 200 mg PO Q4H PRN cough 07/16/23 [History Last Taken Unknown] levothyroxine 150 mcg tablet 150 mcg PO DAILY 07/16/23 [History Last Taken 07/16/23] melatonin 10 mg tablet 10 mg PO QHS 07/16/23 [History Last Taken 07/15/23] acetaminophen 500 mg tablet 1,000 mg (2 x 500 mg) PO Q8 #0 tabs 07/19/23 [Rx Last Taken Unknown] amoxicillin 500 mg-potassium clavulanate 125 mg tablet 1 tab PO QPM 7 days #7 tabs 07/19/23 [Rx Last Taken Unknown] linezolid 600 mg tablet 600 mg PO BID 7 days #14 tabs 07/19/23 [Rx Last Taken Unknown] oxycodone 10 mg tablet 10 mg PO Q4H PRN pain 2 days #12 tabs 07/19/23 [Rx Last Taken Unknown] Allergy/AdvReac Type Severity Reaction Status Date / Time No Known Allergies Allergy Verified 07/16/23 14:54 Family History Mother Hypertension Diabetes Father Hypertension Diabetes Surgical History S/P colostomy S/P foot surgery S/P unilateral above knee amputation Social History housing: [facility] Smoking Status: Never smoker alcohol intake: never substance use type: does not use ROS ROS Narrative As in HPI and past medical history Physical Exam Narrative Alert and orient x 3, no apparent distress S1, S2, RRR Lung sounds clear anteriorly and posteriorly Abdomen soft, nontender Left AKA, no edema to left thigh. Right lower leg with trace to 1+ pitting edema Left forearm AV fistula positive thrill and bruit Lab / Micro Data 07/19/23 05:57 07/19/23 05:57 Labs: Laboratory Results - last 24 hr 07/16/23 14:10: Sodium 132 L, Potassium 4.8, Chloride 97 L, Carbon Dioxide 29.0, Anion Gap 6, BUN 75 H, Creatinine 8.16 H*, Estim Creat Clear Calc 17.66, Est GFR (MDRD) Af Amer 10 L, Est GFR (MDRD) Non-Af 8 L, BUN/Creatinine Ratio 9.2 L, Glucose 117 H, Calcium 8.9, Total Bilirubin 0.60, AST 14 L, ALT 18, Alkaline Phosphatase 175 H, Troponin I High Sens 18, Total Protein 9.5 H, Albumin 2.9 L, Globulin 6.6 H, Albumin/Globulin Ratio 0.4 L, Lipase 55 07/16/23 19:05: ESR 55 H, Phosphorus 4.3, Magnesium 2.1, C-React Prot Ext Range 17.80 H, Procalcitonin 0.26 H 07/16/23 21:12: POC Glucose 126 H 07/16/23 21:35: Troponin I High Sens 16 07/16/23 23:24: S.aureus Protein A PCR POSITIVE H, MRSA (PCR) Negative 07/16/23 23:43: Troponin I High Sens 17 07/17/23 03:34: WBC 7.1, RBC 3.35 L, Hgb 10.0 L, Hct 32.1 L, MCV 95.8 H, MCH 29.9, MCHC 31.2 L, RDW Std Deviation 46.5 H, RDW Coeff of Shanta 13.4, Plt Count 176, MPV 10.4, Immature Gran % (Auto) 0.400, Neut % (Auto) 59.9, Lymph % (Auto) 23.9, Jack % (Auto) 10.8 H, Eos % (Auto) 4.2, Baso % (Auto) 0.8, Absolute Neuts (auto) 4.3, Absolute Lymphs (auto) 1.71, Nucleated RBC % 0, Sodium 138, Potassium 5.2 H, Chloride 102, Carbon Dioxide 27.0, Anion Gap 9, BUN 85 H, Creatinine 9.38 H*, Estim Creat Clear Calc 15.65, Est GFR (MDRD) Af Amer 8 L, Est GFR (MDRD) Non-Af 7 L, BUN/Creatinine Ratio 9.1 L, Glucose 196 H, Calcium 8.2 L, Total Bilirubin 0.40, AST 12 L, ALT 18, Alkaline Phosphatase 157 H, Troponin I High Sens 21, Total Protein 8.1, Albumin 2.7 L, Globulin 5.4 H, Albumin/Globulin Ratio 0.5 L, Triglycerides 105, Cholesterol 77, LDL Cholesterol 29, VLDL Cholesterol 21, HDL Cholesterol 27 L 07/17/23 09:06: POC Glucose 106 07/17/23 11:16: POC Glucose 98 Micro: Microbiology 07/16/23 19:05 Wound - Buttock Wound Culture - Preliminary Gram negative polo 07/16/23 14:10 Mucosa - Nose SARS-CoV-2, Influenza & RSV (PCR) - Final Rhythm Strip Rhythm Strip: Sinus Rhythm Rate: 84 Ectopy: None Imagaing Radiology Impression Chest X-Ray 07/16/23 13:49 IMPRESSION: Moderate cardiomegaly and vascular congestion. Electronically Signed: Rickie Jay MD at 14:50 EST , Abdomen/Pelvis CT 07/16/23 15:15 IMPRESSION: Decubitus ulcer in the left gluteus with involvement of the left initial tuberosity with sclerotic and erosive changes concerning for osteomyelitis. Transplanted right kidney shows dilated calyces without obstructing stone. Pala kidneys are atrophic without suspicious lesion Small bowel ileus Retained stool throughout the colon, left lower quadrant ostomy site free of complication Electronically Signed: Lyle Perrin MD at 16:38 EST , Chest CTA 07/16/23 15:18 IMPRESSION: No demonstrated PE, or thoracic aortic aneurysm or dissection. However, the contrast bolus within the pulmonary arteries is not optimal No organized infiltrate or effusion, there is evidence of chronic bronchitis and left basilar atelectasis No suspicious adenopathy Electronically Signed: Lyle Perrin MD at 16:41 EST , Documented by User: Dr. Lv Toscano MD 07/19/23 16:34 Assessment & Plan Assessment/Plan (1) 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 disease: (2) Decubitus ulcer of ischial area: (3) Hyperkalemia: (4) Anemia of chronic disease: HPI Consult Data Date of Consult: 07/19/23 [facility] Medical History Acute kidney failure Acute on chronic systolic (congestive) heart failure Acute pulmonary edema Acute respiratory failure with hypoxia Anemia in chronic kidney disease Dependence on renal dialysis Depression End stage renal disease Gastro-esophageal reflux disease without esophagitis Hyperkalemia Hyperlipemia Hyperosmolality and hypernatremia Hypertensive heart and chronic kidney disease with heart failure and stage 1 through stage 4 chronic kidney disease, or unspecified chronic kidney disease Hypomagnesemia Hypothyroidism Kidney transplant failure Neurogenic bowel Neuromuscular dysfunction of bladder, unspecified Other acute osteomyelitis, left ankle and foot Other pericardial effusion (noninflammatory) Other pulmonary embolism without acute cor pulmonale Paraplegia, incomplete Pericardial effusion (noninflammatory) Pneumonia Pressure ulcer of left heel, unspecified stage Pyrexia SIRS (systemic inflammatory response syndrome) Type 2 diabetes mellitus with diabetic chronic kidney disease Home Medications acetaminophen 325 mg tablet 650 mg PO Q4H PRN PAIN/FEVER 01/02/23 [History Last Taken 04/21/23] apixaban 5 mg tablet (Eliquis) 5 mg PO BID 01/02/23 [History Last Taken 07/16/23] ascorbic acid (vitamin C) 500 mg tablet 500 mg PO DAILY 01/02/23 [History Last Taken 07/16/23] atorvastatin 40 mg tablet 40 mg PO QHS 01/02/23 [History Last Taken 07/15/23] bisacodyl 10 mg rectal suppository 10 mg OH DAILY PRN Constipation 01/02/23 [History Last Taken Unknown] carvedilol 12.5 mg tablet 12.5 mg PO BID 01/02/23 [History Last Taken 07/16/23] cetylpyridinium chloride 1 yunior mucous membrane Q3H PRN Sore Throat 01/02/23 [History Last Taken Unknown] clotrimazole-betamethasone 1 %-0.05 % topical cream 1 applic topical QHS 01/02/23 [History Last Taken 07/15/23] dextrose 40 % oral gel (Glucose Gel) 15 g PO Q15M PRN Hypoglycemia 01/02/23 [History Last Taken Unknown] famotidine 20 mg tablet 20 mg PO DAILY 01/02/23 [History Last Taken Unknown] hydralazine 25 mg tablet 25 mg PO Q8 01/02/23 [History Last Taken 07/16/23] insulin glargine 100 unit/mL (3 mL) subcutaneous pen (Lantus Solostar U-100 Insulin) 24 unit subcut QHS 01/02/23 [History Last Taken 07/16/23] insulin lispro 100 unit/mL subcutaneous pen (Humalog KwikPen (U-100) Insulin) 6 unit subcut BID 01/02/23 [History Last Taken 07/16/23] midodrine 10 mg tablet 10 mg PO MOTUTHFR 01/02/23 [History Last Taken 07/16/23] nystatin 100,000 unit/gram topical powder 1 applic topical PRN PRN Skin Intervention 01/02/23 [History Last Taken Unknown] ondansetron HCl 4 mg tablet 4 mg PO Q6H PRN Nausea 01/02/23 [History Last Taken Unknown] pantoprazole 40 mg tablet,delayed release 40 mg PO DAILY 01/02/23 [History Last Taken 07/16/23] polyethylene glycol 3350 17 gram oral powder packet 17 g PO DAILY PRN constipation 01/02/23 [History Last Taken Unknown] prednisone 5 mg tablet 5 mg PO DAILY 01/02/23 [History Last Taken 07/16/23] promethazine 12.5 mg tablet 12.5 mg PO Q8H PRN Nausea 01/02/23 [History Last Taken 07/15/23] sennosides 8.6 mg-docusate sodium 50 mg capsule (Senna Plus) 1 tab-cap PO BID Constipation 01/02/23 [History Last Taken 07/16/23] sodium phosphates 19 gram-7 gram/118 mL enema (Fleet Enema) 118 ml OH DAILY PRN Constipation 01/02/23 [History Last Taken Unknown] tacrolimus 1 mg capsule, immediate-release (Prograf) 2 mg PO Q12H 01/02/23 [History Last Taken 07/16/23] trazodone 50 mg tablet 125 mg PO QHS 01/02/23 [History Last Taken 07/15/23] amlodipine 5 mg tablet (Norvasc) 5 mg PO DAILY 04/21/23 [History Last Taken 07/16/23] calcitriol 0.5 mcg capsule 1.25 mcg PO DAILY 04/21/23 [History Last Taken 07/15/23] gabapentin 100 mg capsule 100 mg PO MOTUTHFR PHANTOM PAIN 04/21/23 [History Last Taken 07/16/23] sevelamer HCl 800 mg tablet 2,400 mg PO TID 04/21/23 [History Last Taken 07/16/23] ammonium lactate 5 % lotion 1 applic topical QHS 07/16/23 [History Last Taken 07/15/23] benzoyl peroxide 5 % lotion 1 applic topical QHS 07/16/23 [History Last Taken 07/15/23] diphenhydramine HCl 25 mg tablet 25 mg PO DAILY 07/16/23 [History Last Taken 07/13/23] escitalopram oxalate 20 mg tablet 20 mg PO DAILY 07/16/23 [History Last Taken 07/16/23] guaifenesin 100 mg/5 mL oral liquid (Adult Tussin Chest Congestion) 200 mg PO Q4H PRN cough 07/16/23 [History Last Taken Unknown] levothyroxine 150 mcg tablet 150 mcg PO DAILY 07/16/23 [History Last Taken 07/16/23] melatonin 10 mg tablet 10 mg PO QHS 07/16/23 [History Last Taken 07/15/23] acetaminophen 500 mg tablet 1,000 mg (2 x 500 mg) PO Q8 #0 tabs 07/19/23 [Rx Last Taken Unknown] amoxicillin 500 mg-potassium clavulanate 125 mg tablet 1 tab PO QPM 7 days #7 tabs 07/19/23 [Rx Last Taken Unknown] linezolid 600 mg tablet 600 mg PO BID 7 days #14 tabs 07/19/23 [Rx Last Taken Unknown] oxycodone 10 mg tablet 10 mg PO Q4H PRN pain 2 days #12 tabs 07/19/23 [Rx Last Taken Unknown] Allergy/AdvReac Type Severity Reaction Status Date / Time No Known Allergies Allergy Verified 07/16/23 14:54 Family History Mother Hypertension Diabetes Father Hypertension Diabetes Surgical History S/P colostomy S/P foot surgery S/P unilateral above knee amputation Social History housing: [facility] Smoking Status: Never smoker alcohol intake: never substance use type: does not use Lab / Micro Data 07/19/23 05:57 07/19/23 05:57
--- NOTE | 2023-07-17 14:51 | CASEMGMT ---
Addendum entered by Selina Sylvester 07/17/23 15:00: Patient is a bedhold and can return to [facility] when medically ready. Selina Sylvester, Discharge Planning Asst. Original Note: Discharge Planning Updates sent to [facility] via [facility]. Selina Sylvester, Discharge Planning Asst.
--- NOTE | 2023-07-17 15:10 | CHAPLAIN ---
Type of Pastoral Visit _x__ Initial Visit ___ Follow-up Visit ___ On-call Visit ___ General Patient Visit ___ Spiritual Assessment ___ Family Conference ___ Bereavement ___ Rapid Response ___ Code Blue ___ Other (describe below) Pastoral Care Referral From _x__ Patient ___ Family ___ Nurse ___ Physician ___ Line Fisher ___ Stunt Driver ___ Other (describe below) Sacrament/Intervention _x__ Active listening ___ Anointing ___ Jew ___ Bereavement ___ Communion ___ Jaleesa exploration ___ ___ Life review _x__ Prayer ___ Reconciliation ___ Sacrament of Sick ___ Supportive presence ___ Wedding ___ Other (describe below) Pastoral Comments patient is focused on his phone; pt states that he is being treated and he is doing okay so far; pt requests a prayer be given for his care but that he has no other concerns at this time
--- NOTE | 2023-07-17 16:39 | PCM.CONS.GEN ---
Assessment & Plan Assessment/Plan (1) Chronic kidney disease with end stage renal failure on dialysis: (2) Decubitus ulcer of ischial area: PLAN: Wound cx sent. Showing GNR so far. On empiric vanc/zosyn. CT with ? bone changes. No fever, no leukocytosis. Reports chronic ulcers have been improving at [facility]. May not need to be on abx for long. Will follow, thank you HPI Consult Data Date of Consult: 07/17/23 HPI Narrative Reason for Consultation: wound infection HPI Narrative: CHINA GUILLEN, is a 37 M with kidney transplant 2 years, on HD for past year, h/o DM, incomplete paraplegia, L SANTY, [facility] resident, presented 07/16 with several days chest pain, dyspnea, nausea. Reports wounds have been improving. No fever. Admitted on vanc/zosyn. Feeling better today. Full ROS performed and neg except as noted above. [facility] Medical History Acute kidney failure Acute on chronic systolic (congestive) heart failure Acute pulmonary edema Acute respiratory failure with hypoxia Anemia in chronic kidney disease Dependence on renal dialysis Depression End stage renal disease Gastro-esophageal reflux disease without esophagitis Hyperkalemia Hyperlipemia Hyperosmolality and hypernatremia Hypertensive heart and chronic kidney disease with heart failure and stage 1 through stage 4 chronic kidney disease, or unspecified chronic kidney disease Hypomagnesemia Hypothyroidism Kidney transplant failure Neurogenic bowel Neuromuscular dysfunction of bladder, unspecified Other acute osteomyelitis, left ankle and foot Other pericardial effusion (noninflammatory) Other pulmonary embolism without acute cor pulmonale Paraplegia, incomplete Pericardial effusion (noninflammatory) Pneumonia Pressure ulcer of left heel, unspecified stage Pyrexia SIRS (systemic inflammatory response syndrome) Type 2 diabetes mellitus with diabetic chronic kidney disease Home Medications acetaminophen 325 mg tablet 650 mg PO Q4H PRN PAIN/FEVER 01/02/23 [History Last Taken 04/21/23] apixaban 5 mg tablet (Eliquis) 5 mg PO BID 01/02/23 [History Last Taken 07/16/23] ascorbic acid (vitamin C) 500 mg tablet 500 mg PO DAILY 01/02/23 [History Last Taken 07/16/23] atorvastatin 40 mg tablet 40 mg PO QHS 01/02/23 [History Last Taken 07/15/23] bisacodyl 10 mg rectal suppository 10 mg [place] DAILY PRN Constipation 01/02/23 [History Last Taken Unknown] carvedilol 12.5 mg tablet 12.5 mg PO BID 01/02/23 [History Last Taken 07/16/23] cetylpyridinium chloride 1 yunior mucous membrane Q3H PRN Sore Throat 01/02/23 [History Last Taken Unknown] clotrimazole-betamethasone 1 %-0.05 % topical cream 1 applic topical QHS 01/02/23 [History Last Taken 07/15/23] dextrose 40 % oral gel (Glucose Gel) 15 g PO Q15M PRN Hypoglycemia 01/02/23 [History Last Taken Unknown] famotidine 20 mg tablet 20 mg PO DAILY 01/02/23 [History Last Taken Unknown] hydralazine 25 mg tablet 25 mg PO Q8 01/02/23 [History Last Taken 07/16/23] insulin glargine 100 unit/mL (3 mL) subcutaneous pen (Lantus Solostar U-100 Insulin) 24 unit subcut QHS 01/02/23 [History Last Taken 07/16/23] insulin lispro 100 unit/mL subcutaneous pen (Humalog KwikPen (U-100) Insulin) 6 unit subcut BID 01/02/23 [History Last Taken 07/16/23] midodrine 10 mg tablet 10 mg PO MOTUTHFR 01/02/23 [History Last Taken 07/16/23] nystatin 100,000 unit/gram topical powder 1 applic topical PRN PRN Skin Intervention 01/02/23 [History Last Taken Unknown] ondansetron HCl 4 mg tablet 4 mg PO Q6H PRN Nausea 01/02/23 [History Last Taken Unknown] pantoprazole 40 mg tablet,delayed release 40 mg PO DAILY 01/02/23 [History Last Taken 07/16/23] polyethylene glycol 3350 17 gram oral powder packet 17 g PO DAILY PRN constipation 01/02/23 [History Last Taken Unknown] prednisone 5 mg tablet 5 mg PO DAILY 01/02/23 [History Last Taken 07/16/23] promethazine 12.5 mg tablet 12.5 mg PO Q8H PRN Nausea 01/02/23 [History Last Taken 07/15/23] sennosides 8.6 mg-docusate sodium 50 mg capsule (Senna Plus) 1 tab-cap PO BID Constipation 01/02/23 [History Last Taken 07/16/23] sodium phosphates 19 gram-7 gram/118 mL enema (Fleet Enema) 118 ml [place] DAILY PRN Constipation 01/02/23 [History Last Taken Unknown] tacrolimus 1 mg capsule, immediate-release (Prograf) 2 mg PO Q12H 01/02/23 [History Last Taken 07/16/23] trazodone 50 mg tablet 125 mg PO QHS 01/02/23 [History Last Taken 07/15/23] oxycodone 10 mg tablet 10 mg PO Q4H PRN pain 2 days #12 tabs 01/04/23 [Rx Last Taken 07/14/23] amlodipine 5 mg tablet (Norvasc) 5 mg PO DAILY 04/21/23 [History Last Taken 07/16/23] calcitriol 0.5 mcg capsule 1.25 mcg PO DAILY 04/21/23 [History Last Taken 07/15/23] gabapentin 100 mg capsule 100 mg PO MOTUTHFR PHANTOM PAIN 04/21/23 [History Last Taken 07/16/23] sevelamer HCl 800 mg tablet 2,400 mg PO TID 04/21/23 [History Last Taken 07/16/23] ammonium lactate 5 % lotion 1 applic topical QHS 07/16/23 [History Last Taken 07/15/23] benzoyl peroxide 5 % lotion 1 applic topical QHS 07/16/23 [History Last Taken 07/15/23] diphenhydramine HCl 25 mg tablet 25 mg PO DAILY 07/16/23 [History Last Taken 07/13/23] escitalopram oxalate 20 mg tablet 20 mg PO DAILY 07/16/23 [History Last Taken 07/16/23] guaifenesin 100 mg/5 mL oral liquid (Adult Tussin Chest Congestion) 200 mg PO Q4H PRN cough 07/16/23 [History Last Taken Unknown] levothyroxine 150 mcg tablet 150 mcg PO DAILY 07/16/23 [History Last Taken 07/16/23] melatonin 10 mg tablet 10 mg PO QHS 07/16/23 [History Last Taken 07/15/23] Allergy/AdvReac Type Severity Reaction Status Date / Time No Known Allergies Allergy Verified 07/16/23 14:54 Family History Mother Hypertension Diabetes Father Hypertension Diabetes Surgical History S/P colostomy S/P foot surgery S/P unilateral above knee amputation Social History housing: jail Smoking Status: Never smoker alcohol intake: never substance use type: does not use Physical Exam Const alert, oriented x3 and no apparent distress General Appearance: cooperative HEENT normocephalic and head/scalp atraumatic Eyes PERRL and EOMs intact bilaterally Neck supple and No nodes Resp normal air movement and clear to auscultation bilaterally Cardio regular rate and regular rhythm GI soft to palpation, non-tender and non-distended Extremity General Extremity: edema Skin Skin Narrative: L AKA. reviewed wound photos Neuro CN's II-XII intact bilaterally Lab / Micro Data Attestation: I reviewed the patient's lab results. 07/17/23 03:34 07/17/23 03:34 Labs: Laboratory Results - last 24 hr 07/16/23 19:05: ESR 55 H, Phosphorus 4.3, Magnesium 2.1, C-React Prot Ext Range 17.80 H, Procalcitonin 0.26 H 07/16/23 21:12: POC Glucose 126 H 07/16/23 21:35: Troponin I High Sens 16 07/16/23 23:24: S.aureus Protein A PCR POSITIVE H, MRSA (PCR) Negative 07/16/23 23:43: Troponin I High Sens 17 07/17/23 03:34: WBC 7.1, RBC 3.35 L, Hgb 10.0 L, Hct 32.1 L, MCV 95.8 H, MCH 29.9, MCHC 31.2 L, RDW Std Deviation 46.5 H, RDW Coeff of Shanta 13.4, Plt Count 176, MPV 10.4, Immature Gran % (Auto) 0.400, Neut % (Auto) 59.9, Lymph % (Auto) 23.9, [place] % (Auto) 10.8 H, Eos % (Auto) 4.2, Baso % (Auto) 0.8, Absolute Neuts (auto) 4.3, Absolute Lymphs (auto) 1.71, Nucleated RBC % 0, Sodium 138, Potassium 5.2 H, Chloride 102, Carbon Dioxide 27.0, Anion Gap 9, BUN 85 H, Creatinine 9.38 H*, Estim Creat Clear Calc 15.65, Est GFR (MDRD) Af Amer 8 L, Est GFR (MDRD) Non-Af 7 L, BUN/Creatinine Ratio 9.1 L, Glucose 196 H, Calcium 8.2 L, Total Bilirubin 0.40, AST 12 L, ALT 18, Alkaline Phosphatase 157 H, Troponin I High Sens 21, Total Protein 8.1, Albumin 2.7 L, Globulin 5.4 H, Albumin/Globulin Ratio 0.5 L, Triglycerides 105, Cholesterol 77, LDL Cholesterol 29, VLDL Cholesterol 21, HDL Cholesterol 27 L 07/17/23 09:06: POC Glucose 106 07/17/23 11:16: POC Glucose 98 Micro: Microbiology 07/16/23 22:10 Mucosa - Nose Respiratory Panel (PCR) - Final 07/16/23 19:05 Wound - Buttock Gram Stain - Final 07/16/23 19:05 Wound - Buttock Wound Culture - Preliminary Gram negative polo 07/16/23 14:10 Mucosa - Nose SARS-CoV-2, Influenza & RSV (PCR) - Final Rhythm Strip Rhythm Strip: Sinus Rhythm Rate: 84 Ectopy: None Imagaing Radiology Impression Chest X-Ray 07/16/23 13:49 IMPRESSION: Moderate cardiomegaly and vascular congestion. Electronically Signed: Rickie Jay MD at 14:50 EST , Abdomen/Pelvis CT 07/16/23 15:15 IMPRESSION: Decubitus ulcer in the left gluteus with involvement of the left initial tuberosity with sclerotic and erosive changes concerning for osteomyelitis. Transplanted right kidney shows dilated calyces without obstructing stone. [place] kidneys are atrophic without suspicious lesion Small bowel ileus Retained stool throughout the colon, left lower quadrant ostomy site free of complication Electronically Signed: Lyle Perrin MD at 16:38 EST , Chest CTA 07/16/23 15:18 IMPRESSION: No demonstrated PE, or thoracic aortic aneurysm or dissection. However, the contrast bolus within the pulmonary arteries is not optimal No organized infiltrate or effusion, there is evidence of chronic bronchitis and left basilar atelectasis No suspicious adenopathy Electronically Signed: Lyle Perrin MD at 16:41 EST ,
[2023-07-17] MEDS: Insulin Lispro 100 UNIT/ML INSULN.PEN 6 UNIT SC (17:09)
[2023-07-17] MEDS: Juven (unflavored) Packet 1 PACKET PO (17:09)
[2023-07-17] MEDS: Insulin Lispro 100 UNIT/ML INSULN.PEN SC ×2 (17:10→20:52)
[2023-07-17 17:22] LABS: Bedside Glucose 235 mg/dL (74-106)
--- NOTE | 2023-07-17 20:00 | NURSING ---
Emergency Documentation 20:00
[2023-07-17] MEDS: Insulin Glargine-YFGN 100 UNIT/ML Pen 24 UNIT SC (20:52)
[2023-07-17] MEDS: traZODone 50 MG Tablet 75 MG PO (20:58)
[2023-07-17] MEDS: Atorvastatin Calcium 40 MG Tablet PO (20:58)
[2023-07-17] MEDS: Gabapentin 300 MG Capsule PO (21:12)
[2023-07-17 21:53] LABS: Bedside Glucose 243 mg/dL (74-106)
--- NOTE | 2023-07-17 23:30 | NURSING ---
Pt does not want vitals done until its time for am meds.
[2023-07-18] VITALS (13 sets, daily range): BP systolic 118–285; BP diastolic 63–103; PULSE 65–85; RESP 14–18; TEMP 36.4–36.6; O2SAT 94–98; BMI 40.4; BMI 39.6
[2023-07-18] MEDS: hydrALAZINE 25 MG Tablet PO ×3 (05:22→22:06)
[2023-07-18] MEDS: Acetaminophen 500 MG Tablet 1000 MG PO ×3 (05:22→22:02)
[2023-07-18] MEDS: Levothyroxine 150 MCG Tablet PO (05:22)
[2023-07-18] MEDS: Insulin Lispro 100 UNIT/ML INSULN.PEN SC ×2 (08:18→22:23)
[2023-07-18 08:39] LABS: Absolute Lymphocyte Count 1.98 X10^3/uL (0.83-4.51); Absolute Neutrophil Count 3.9 X10^3/uL (2.0-7.7); Basophil# 0.07 X10^3/uL; Eosinophil# 0.32 X10^3/uL; Eosinophils% 4.5 % (0-5); Hematocrit 33.1 % (40-54); Hemoglobin 10.5 g/dL (13.0-16.5); Lymphocyte # 1.98 X10^3/ul (0.83-4.51); Lymphocyte % 28.1 % (19-41); Mean Corp Hgb Conc 31.7 g/dL (32-36); Mean Corpuscular Hgb 30.1 pg (27.0-32.0); Mean Corpuscular Volume 94.8 fL (80-94); Mean Platelet Vol. 10.1 fl (6.2-12.0); Monocyte# 0.79 X10^3/uL; Monocyte% 11.2 % (0-10); NRBC Flagged by Analyzer 0 % (0-5); Neutrophil # 3.85 X10^3/uL (2.7-7.7); Neutrophil % 54.8 % (47-70); Platelet Count 185 K/mm3 (150-450); RBC Distribution Width CV 13.4 % (11.6-14.6); RBC Distribution Width SD 45.2 fl (35.1-43.9); Red Blood Count 3.49 M/mm3 (4.6-6.2)
[2023-07-18 08:39] LABS: Bedside Glucose 191 mg/dL (74-106)
--- NOTE | 2023-07-18 09:50 | PCM.PN.HOSP ---
Reason for Visit Reason for Visit: Diagnoses Pressure ulcer of unspecified buttock, unspecified stage (07/16/23) End stage renal disease (07/16/23) Dependence on renal dialysis (07/16/23) Subjective Subjective Wound Culture - Preliminary, Proteus mirabilis, Gram negative polo, GPC Poss Enterococcus sp, Staphylococcus aureus. Patient remains on broad-spectrum antibiotic therapy final antibiotic therapy deferred to ID Objective Data Objective Data Vital Signs: Vital Signs Temp Pulse Resp BP Pulse Ox O2 Del Method O2 Flow Rate 97.7 F L 71 18 166/103 H 98 Room Air 2 07/18/23 05:22 07/18/23 05:22 07/18/23 05:22 07/18/23 05:22 07/18/23 05:22 07/18/23 08:10 07/17/23 16:22 Oxygen Flow Rate (L/min) 2 Oxygen Delivery Method Room Air Weight: 135 kg Body Mass Index (BMI) 40.4 Intake & Output: Intake and Output for Last 24 Hours 07/16/23 07/17/23 07/18/23 23:59 23:59 23:59 Intake Total 590 / 590 1803.33 / 1803.33 50 / 50 Output Total 950 / 950 250 / 250 Balance 590 / 140 853.33 / 853.33 -200 / -200 Lab / Micro Data 07/18/23 08:30 07/17/23 03:34 Labs: Laboratory Results - last 24 hr 07/17/23 11:16: POC Glucose 98 07/17/23 17:04: POC Glucose 235 H 07/17/23 20:50: POC Glucose 243 H 07/18/23 07:38: WBC Cancelled, Corrected WBC Cancelled, RBC Cancelled, Hgb Cancelled, Hct Cancelled, MCV Cancelled, MCH Cancelled, MCHC Cancelled, RDW Std Deviation Cancelled, RDW Coeff of Shanta Cancelled, Plt Count Cancelled, MPV Cancelled, Immature Gran % (Auto) Cancelled, Neut % (Auto) Cancelled, Lymph % (Auto) Cancelled, [place] % (Auto) Cancelled, Eos % (Auto) Cancelled, Baso % (Auto) Cancelled, Absolute Neuts (auto) Cancelled, Absolute Lymphs (auto) Cancelled, Total Counted Cancelled, Neutrophils % (Manual) Cancelled, Band Neutrophils % Cancelled, Lymphocytes % (Manual) Cancelled, Monocytes % (Manual) Cancelled, Eosinophils % (Manual) Cancelled, Basophils % (Manual) Cancelled, Metamyelocytes % Cancelled, Myelocytes % Cancelled, Promyelocytes % Cancelled, Blast Cells % Cancelled, Plasma Cell % (Manual) Cancelled, Other Cells % Cancelled, Nucleated RBC % Cancelled, Nucleated RBCs/100 WBC Cancelled, Differential Comment Cancelled, Diff Path Review Cancelled, Hypersegmented Neuts Cancelled, Atypical Lymphocytes Cancelled, Reactive Lymphocytes Cancelled, Smudge Cells Cancelled, Toxic Granulation Cancelled, Toxic Vacuolation Cancelled, Dohle Bodies Cancelled, Janel Rods Cancelled, Platelet Estimate Cancelled, Plt Morphology Comment Cancelled, RBC Morphology Cancelled 07/18/23 07:38: RBC Morphology Cancelled, Polychromasia Cancelled, Hypochromasia Cancelled, Poikilocytosis Cancelled, Basophilic Stippling Cancelled, Anisocytosis Cancelled, Microcytosis Cancelled, Macrocytosis Cancelled, Spherocytes Cancelled, Sickle Cells Cancelled, Target Cells Cancelled, Tear Drop Cells Cancelled, Ovalocytes Cancelled, Stomatocytes Cancelled, [place] Bodies Cancelled, [place] Cells Cancelled, Bite Cells Cancelled, Crenated Cell Cancelled, Acanthocytes (Spur) Cancelled, Rouleaux Cancelled, Schistocytes Cancelled 07/18/23 08:12: POC Glucose 191 H 07/18/23 08:30: WBC 7.0, RBC 3.49 L, Hgb 10.5 L, Hct 33.1 L, MCV 94.8 H, MCH 30.1, MCHC 31.7 L, RDW Std Deviation 45.2 H, RDW Coeff of Shanta 13.4, Plt Count 185, MPV 10.1, Immature Gran % (Auto) 0.400, Neut % (Auto) 54.8, Lymph % (Auto) 28.1, [place] % (Auto) 11.2 H, Eos % (Auto) 4.5, Baso % (Auto) 1.0, Absolute Neuts (auto) 3.9, Absolute Lymphs (auto) 1.98, Nucleated RBC % 0 Micro: Microbiology 07/16/23 19:05 Wound - Buttock Gram Stain - Final 07/16/23 19:05 Wound - Buttock Wound Culture - Preliminary Proteus mirabilis Gram negative polo GPC Poss Enterococcus sp Staphylococcus aureus 07/16/23 22:10 Mucosa - Nose Respiratory Panel (PCR) - Final 07/16/23 14:10 Mucosa - Nose SARS-CoV-2, Influenza & RSV (PCR) - Final Rhythm Strip Rhythm Strip: Sinus Rhythm Rate: 84 Ectopy: None Physical Exam Narrative GENERAL: cooperative HEENT: Atraumatic; normocephalic EYES; Anicteric, Normal Conjunctiva NECK; supple, normal thyroid, RESPIRATORY: Diminished to auscultation CARDIOVASCULAR: Regular S1 S2, GI: soft, normoactive bowel sounds, : No Renal angle tenderness; EXTREMITIES: No edema, no clubbing, MUSCULOSKELETAL: Left AKA NEURO: Awake; no lateralizing signs. SKIN: Stage IV decubitus ulcer PSYCH; Flat affect Assessment & Plan Assessment/Plan (1) Decubitus ulcer of ischial area: QUALIFIERS: Pressure injury stage: stage 4 Laterality: left Qualified Code(s): L89.324 - Pressure ulcer of left buttock, stage 4 PLAN: Plan Patient is a 37-year-old gentleman resident at an extended care facility with recent left AKA who presented with shortness of breath abdominal pain and chest discomfort. CT of the abdomen and pelvis obtained on admission demonstrated decubitus ulcer in the left gluteus with involvement of the ischial tuberosity with sclerotic and erosive changes concerning for osteomyelitis. Admitted to a monitored bed for subsequent management. 1. Suspected infected left ischial/sacral wound with possible osteomyelitis. - Admitted to regular nursing floor patient started on broad-spectrum antibiotic therapy with consultation placed to plastic surgery as well as infectious disease. Consult was also placed to wound care nurse for dressing changes. Cultures were obtained on admission -07/18/2023 : wound Culture - Preliminary, Proteus mirabilis, Gram negative polo, GPC Poss Enterococcus sp, Staphylococcus aureus. Patient remains on broad-spectrum antibiotic therapy final antibiotic therapy deferred to ID 2. End-stage renal disease ? Patient has history of failed renal transplant. Currently on hemodialysis on Tuesdays and Saturdays consult placed to nephrology for dialysis orders 3. Status post left AKA ? Supportive care 4. Anemia ? Secondary to anemia of end-stage renal disease monitoring H&H with plans to transfuse or if patient is deemed to be symptomatic 5. Dyslipidemia -Patient is on statin therapy, continued at home dose 6. Hypothyroidism - Patient is on levothyroxine home dose continued 7. Hypertension - Blood pressure controlled, home medications continued with dose adjustment as needed 8. Class III obesity with BMI of 40.4 ? Complicating care weight loss advised 9. Diabetes mellitus type II -patient's oral hypoglycemics held. Placed on long acting insulin, Accu-Cheks a.c. and at bedtime and covered with sliding scale insulin 10. GERD ? On PPI 11. Depression with anxiety ? Patient is on escitalopram did continue 12. History of previous VTE ? Patient is on apixaban did continue Time spent in the patient's overall evaluation,decision-making process, review of diagnostic data, adjustment of management, discussion with other providers, nursing nursing and ancillary staff involved in patient's care documentation, 40 Minutes Charges/Coding Visit Charges Inpatient E&M: 71463 [facility] Hosp L2
[2023-07-18] MEDS: Piperacil/Tazobactam 3.375 GM in 0.9% Normal Saline (50mL MB+) 50 ML IV ×2 (09:54→21:59)
--- NOTE | 2023-07-18 09:56 | PCM.RX.CS ---
Consult Antibiotic Management Pharmacy has been consulted to manage selected antibiotic: Vancomycin Type of Intervention Type of Consult: Follow-up Suspected Infection Suspected Infection: Osteomyelitis Prior Doses of Antibiotics Prior Doses of Antibiotics Received/Current Regimen: Vancomycin 2000mg x1 administered 07/16/23 @ 1922 Microbiology Microbiology: Microbiology 07/16/23 19:05 Wound - Buttock Gram Stain - Final 07/16/23 19:05 Wound - Buttock Wound Culture - Preliminary Proteus mirabilis Gram negative polo GPC Poss Enterococcus sp Staphylococcus aureus 07/16/23 22:10 Mucosa - Nose Respiratory Panel (PCR) - Final 07/16/23 14:10 Mucosa - Nose SARS-CoV-2, Influenza & RSV (PCR) - Final Dosing Weight Weight used for dosin kg Estimated Creatinine Clearance Estimated Creatinine Clearance: 17.7 Goal Trough Goal Trough: 15-20 mcg/mL Pharmacy Plan for Drug Dosing Pharmacy Plan for Drug Dosing: Patient is on hemodialysis 07/18/23 and 07/19/23. Patient will receive 1000mg of Vancomycin after dialysis today and a random Vancomycin level will be drawn 07/19/23. Pharmacy Service will continue to monitor and adjust dosing as required. Date/Time Labs Ordered Labs to be done on [date and time ordered]: random Vancomycin level 07/19/23 @ 0600
--- NOTE | 2023-07-18 10:13 | WOUNDNOTE ---
Colostomy appliance changed d/t the flange loosening off skin. removed the appliance. small amount of formed brown stool noted in the appliance. peristomal skin is intact. stoma sits at skin level and is pink and moist. cleansed the skin with warm water. pat dry. applied a new 2 piece flat [place] appliance with a small amount of stoma paste. pt tolerated well.
[2023-07-18] MEDS: HYDROmorphone 0.5 MG/0.5 ML SYRINGE IV ×2 (10:48→17:10)
[2023-07-18] MEDS: 0.9% Saline Lock 10 ML Syringe IV ×2 (10:48→17:10)
[2023-07-18 11:46] LABS: Bedside Glucose 144 mg/dL (74-106)
[2023-07-18] MEDS: PureFlow B 2K Dialysis Soln 1 BAG 6 BAG PF (11:47)
[2023-07-18] MEDS: 0.9% Normal Saline 1,000 ML IV.SOLN. 1000 ML OPERA.SITE (11:47)
[2023-07-18 12:07] LABS: Anion Gap 9 (5-15); BUN 94 mg/dL (7-18); BUN/Creat Ratio 8.4 RATIO (10-20); Calcium,Total 8.6 mg/dL (8.5-10.1); Chloride 99 mmol/L (98-107); EST Glomerular Filtration Rate 6 mL/min (>60); Est Glom Filt Rate - Afr Amer 7 mL/min (>60); Estimated Creatinine Clearance 13.09 ml/min; Glucose 199 mg/dL (74-106); Magnesium 2.2 mg/dL (1.6-2.6); Phosphorus 5.9 mg/dL (2.5-4.9); Potassium 5.3 mmol/L (3.5-5.1); Sodium Level 135 mmol/L (136-145)
--- NOTE | 2023-07-18 14:55 | PN.RENAL_ITS ---
Subjective Subjective Resting in bed, just finished dialysis. No complaints. Objective Data Objective Data Vital Signs: Vital Signs Temp Pulse Resp BP Pulse Ox O2 Del Method O2 Flow Rate 97.8 F 83 14 118/81 H 94 Nasal Cannula 2 07/18/23 10:46 07/18/23 14:11 07/18/23 14:11 07/18/23 14:11 07/18/23 11:25 07/18/23 14:11 07/18/23 14:11 Oxygen Flow Rate (L/min) 2 Oxygen Delivery Method Nasal Cannula Weight: 135 kg Body Mass Index (BMI) 40.4 Intake & Output: Intake and Output for Last 24 Hours 07/16/23 07/17/23 07/18/23 23:59 23:59 23:59 Intake Total 590 / 590 1803.33 / 1803.33 500 / 500 Output Total 950 / 950 400 / 400 Balance 590 / 140 853.33 / 853.33 100 / 100 Lab / Micro Data 07/18/23 08:30 07/18/23 08:30 Labs: Laboratory Results - last 24 hr 07/17/23 17:04: POC Glucose 235 H 07/17/23 20:50: POC Glucose 243 H 07/18/23 07:38: WBC Cancelled, Corrected WBC Cancelled, RBC Cancelled, Hgb Cancelled, Hct Cancelled, MCV Cancelled, MCH Cancelled, MCHC Cancelled, RDW Std Deviation Cancelled, RDW Coeff of Shanta Cancelled, Plt Count Cancelled, MPV Cancelled, Immature Gran % (Auto) Cancelled, Neut % (Auto) Cancelled, Lymph % (Auto) Cancelled, [place] % (Auto) Cancelled, Eos % (Auto) Cancelled, Baso % (Auto) Cancelled, Absolute Neuts (auto) Cancelled, Absolute Lymphs (auto) Cancelled, Total Counted Cancelled, Neutrophils % (Manual) Cancelled, Band Neutrophils % Cancelled, Lymphocytes % (Manual) Cancelled, Monocytes % (Manual) Cancelled, Eosinophils % (Manual) Cancelled, Basophils % (Manual) Cancelled, Metamyelocytes % Cancelled, Myelocytes % Cancelled, Promyelocytes % Cancelled, Blast Cells % Cancelled, Plasma Cell % (Manual) Cancelled, Other Cells % Cancelled, Nucleated RBC % Cancelled, Nucleated RBCs/100 WBC Cancelled, Differential Comment Cancelled, Diff Path Review Cancelled, Hypersegmented Neuts Cancelled, Atypical Lymphocytes Cancelled, Reactive Lymphocytes Cancelled, Smudge Cells Cancelled, Toxic Granulation Cancelled, Toxic Vacuolation Cancelled, Dohle Bodies Cancelled, Janel Rods Cancelled, Platelet Estimate Cancelled, Plt Morphology Comment Cancelled, RBC Morphology Cancelled 07/18/23 07:38: RBC Morphology Cancelled, Polychromasia Cancelled, Hypochromasia Cancelled, Poikilocytosis Cancelled, Basophilic Stippling Cancelled, Anisocytosis Cancelled, Microcytosis Cancelled, Macrocytosis Cancelled, Spherocytes Cancelled, Sickle Cells Cancelled, Target Cells Cancelled, Tear Drop Cells Cancelled, Ovalocytes Cancelled, Stomatocytes Cancelled, [place] Bodies Cancelled, [place] Cells Cancelled, Bite Cells Cancelled, Crenated Cell Cancelled, Acanthocytes (Spur) Cancelled, Rouleaux Cancelled, Schistocytes Cancelled 07/18/23 08:12: POC Glucose 191 H 07/18/23 08:30: WBC 7.0, RBC 3.49 L, Hgb 10.5 L, Hct 33.1 L, MCV 94.8 H, MCH 30.1, MCHC 31.7 L, RDW Std Deviation 45.2 H, RDW Coeff of Shanta 13.4, Plt Count 185, MPV 10.1, Immature Gran % (Auto) 0.400, Neut % (Auto) 54.8, Lymph % (Auto) 28.1, [place] % (Auto) 11.2 H, Eos % (Auto) 4.5, Baso % (Auto) 1.0, Absolute Neuts (auto) 3.9, Absolute Lymphs (auto) 1.98, Nucleated RBC % 0, Sodium 135 L, Potassium 5.3 H, Chloride 99, Carbon Dioxide 27.0, Anion Gap 9, BUN 94 H, Creatinine 11.20 H*, Estim Creat Clear Calc 13.09, Est GFR (MDRD) Af Amer 7 L, Est GFR (MDRD) Non-Af 6 L, BUN/Creatinine Ratio 8.4 L, Glucose 199 H, Calcium 8.6, Phosphorus 5.9 H, Magnesium 2.2 07/18/23 11:29: POC Glucose 144 H Micro: Microbiology 07/16/23 19:05 Wound - Buttock Gram Stain - Final 07/16/23 19:05 Wound - Buttock Wound Culture - Preliminary Proteus mirabilis Gram negative polo GPC Poss Enterococcus sp Staphylococcus aureus 07/16/23 22:10 Mucosa - Nose Respiratory Panel (PCR) - Final 07/16/23 14:10 Mucosa - Nose SARS-CoV-2, Influenza & RSV (PCR) - Final Rhythm Strip Rhythm Strip: Sinus Rhythm Rate: 84 Ectopy: None Physical Exam Narrative Alert and orient x 3, no apparent distress S1, S2, RRR Lung sounds clear anteriorly and posteriorly Abdomen soft, nontender Left AKA, no edema to left thigh. Right lower leg with trace to 1+ pitting edema Left forearm AV fistula positive thrill and bruit Assessment & Plan Assessment/Plan (1) 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 disease: (2) Decubitus ulcer of ischial area: QUALIFIERS: Pressure injury stage: stage 4 Laterality: left Qualified Code(s): L89.324 - Pressure ulcer of left buttock, stage 4 (3) Hyperkalemia: (4) Anemia of chronic disease: PLAN: Plan This is a 37-year-old -[place] male with past medical history significant for ESRD on hemodialysis at [facility] dialyzing on a Saturday, Saturday, , Saturday schedule followed by Dr. Granda, history of failed kidney transplant has been on tacrolimus and prednisone, chronic systolic heart failure, hypertension, hyperlipidemia, diabetes mellitus type 2, left AKA, history of chronic left ischial/sacral wounds, incomplete paraplegia who was brought to the emergency room for evaluation as patient had been complaining of mild cough, fever and chills. Testing for influenza, RSV and COVID were negative. Patient was admitted for acutely infected chronic left ischial/sacral wound with concern for osteomyelitis, started on IV antibiotics. Nephrology consulted for hemodialysis management. - ESRD on HD at [facility] /// schedule. Underwent HD today with ~2L UF. HD again tomorrow 2k bath with UF - anemia of chronic disease, current hemoglobin is 10.5. Will monitor hemoglobin trends. He does not need REILLY with HD at this time. - hypertension, current blood pressures acceptable on multiple antihypertensives. - Left ischial/sacral wound; on IV antibiotics, wound care. ID following
[2023-07-18] MEDS: Senna/Docusate Sodium 1 Tablet PO ×2 (15:24→22:02)
[2023-07-18] MEDS: Pantoprazole Sodium 40 MG Tablet PO (15:24)
[2023-07-18] MEDS: SEVELAMER CARBONATE 800 MG TABLET 2400 MG PO (15:24)
[2023-07-18] MEDS: Tacrolimus Anhydrous 1 MG Capsule 2 MG PO ×2 (15:25→22:04)
[2023-07-18] MEDS: Calcitriol 0.25 MCG Capsule 1 MCG PO (15:25)
[2023-07-18] MEDS: APIXABAN 5 MG TABLET PO ×2 (15:25→22:03)
[2023-07-18] MEDS: Carvedilol 12.5 MG Tablet PO ×2 (15:26→22:03)
[2023-07-18] MEDS: Ascorbic Acid 500 MG Tablet PO (15:26)
[2023-07-18] MEDS: amLODIPine 5 MG Tablet PO (15:26)
[2023-07-18] MEDS: Escitalopram Oxalate 10 MG Tablet PO (15:27)
[2023-07-18] MEDS: predniSONE 5 MG Tablet PO (15:27)
[2023-07-18] MEDS: Menthol/Lanolin/Calamine/Znox 113 GM Tube 1 APPLIC TOPICAL ×3 (15:28→22:03)
[2023-07-18] MEDS: Miconazole Nitrate 43 GM Bottle 1 APPLIC TOPICAL (15:28)
[2023-07-18] MEDS: Vancomycin IV 1,000 MG/200 ML BAG 200 MG IV (15:29)
[2023-07-18] MEDS: Gabapentin 100 MG Capsule PO (15:41)
[2023-07-18] MEDS: Juven (unflavored) Packet 1 PACKET PO (17:09)
[2023-07-18 17:21] LABS: Bedside Glucose 122 mg/dL (74-106)
[2023-07-18] MEDS: traZODone 50 MG Tablet 75 MG PO (22:02)
[2023-07-18] MEDS: Atorvastatin Calcium 40 MG Tablet PO (22:03)
[2023-07-18] MEDS: Gabapentin 300 MG Capsule PO (22:14)
[2023-07-18] MEDS: HYDROmorphone 1 MG/ML Syringe IV (22:15)
[2023-07-18] MEDS: Insulin Glargine-YFGN 100 UNIT/ML Pen 24 UNIT SC (22:23)
[2023-07-18 23:19] LABS: Bedside Glucose 184 mg/dL (74-106)
[2023-07-19] VITALS (16 sets, daily range): BP systolic 117–287; BP diastolic 40–92; PULSE 74–83; RESP 14–20; TEMP 36.6–36.9; O2SAT 95–100; BMI 40.0; BMI 39.6
[2023-07-19] MEDS: oxyCODONE 5 MG Tablet PO ×2 (02:15→15:07)
[2023-07-19] MEDS: Levothyroxine 150 MCG Tablet PO (06:02)
[2023-07-19] MEDS: Acetaminophen 500 MG Tablet 1000 MG PO ×2 (06:02→15:07)
[2023-07-19] MEDS: hydrALAZINE 25 MG Tablet PO ×3 (06:02→21:19)
[2023-07-19 06:37] LABS: Absolute Lymphocyte Count 1.97 X10^3/uL (0.83-4.51); Absolute Neutrophil Count 5.2 X10^3/uL (2.0-7.7); Basophil# 0.05 X10^3/uL; Basophil% 0.6 % (0-1); Eosinophil# 0.39 X10^3/uL; Eosinophils% 4.7 % (0-5); Hematocrit 32.7 % (40-54); Hemoglobin 10.3 g/dL (13.0-16.5); Lymphocyte # 1.97 X10^3/ul (0.83-4.51); Lymphocyte % 23.5 % (19-41); Mean Corp Hgb Conc 31.5 g/dL (32-36); Mean Corpuscular Volume 95.3 fL (80-94); Mean Platelet Vol. 10.3 fl (6.2-12.0); Monocyte# 0.74 X10^3/uL; Monocyte% 8.8 % (0-10); NRBC Flagged by Analyzer 0 % (0-5); Neutrophil # 5.19 X10^3/uL (2.7-7.7); Neutrophil % 61.9 % (47-70); Platelet Count 180 K/mm3 (150-450); RBC Distribution Width CV 13.8 % (11.6-14.6); RBC Distribution Width SD 47.1 fl (35.1-43.9); Red Blood Count 3.43 M/mm3 (4.6-6.2); White Blood Count 8.4 K/mm3 (4.4-11.0)
[2023-07-19 07:32] LABS: Anion Gap 9 (5-15); BUN 78 mg/dL (7-18); BUN/Creat Ratio 7.8 RATIO (10-20); Calcium,Total 8.8 mg/dL (8.5-10.1); Chloride 102 mmol/L (98-107); EST Glomerular Filtration Rate 6 mL/min (>60); Est Glom Filt Rate - Afr Amer 8 mL/min (>60); Estimated Creatinine Clearance 14.61 ml/min; Glucose 155 mg/dL (74-106); Potassium 5.7 mmol/L (3.5-5.1); Sodium Level 136 mmol/L (136-145)
[2023-07-19 07:38] LABS: Vancomycin, Random Level 34.2 ug/mL (0.0-15.0)
[2023-07-19] MEDS: 0.9% Normal Saline 1,000 ML IV.SOLN. 1000 ML OPERA.SITE (07:45)
[2023-07-19] MEDS: PureFlow B 2K Dialysis Soln 1 BAG 6 BAG PF (07:45)
[2023-07-19] MEDS: HYDROmorphone 0.5 MG/0.5 ML SYRINGE IV ×2 (08:00→19:03)
[2023-07-19] MEDS: 0.9% Saline Lock 10 ML Syringe IV ×2 (08:00→19:03)
--- NOTE | 2023-07-19 08:15 | PCM.RX.CS ---
Consult Antibiotic Management Pharmacy has been consulted to manage selected antibiotic: Vancomycin Type of Intervention Type of Consult: Follow-up Prior Doses of Antibiotics Prior Doses of Antibiotics Received/Current Regimen: most recent dose was vanc 1000mg IV x1 given at 15:29 yesterday after HD Labs Labs: Sodium 136 mmol/L (136-145) 07/19/23 05:57 Potassium 5.7 mmol/L (3.5-5.1) H 07/19/23 05:57 Chloride 102 mmol/L (98-107) 07/19/23 05:57 Carbon Dioxide 25.0 mmol/L (21.0-32.0) 07/19/23 05:57 Anion Gap 9 (5-15) 07/19/23 05:57 BUN 78 mg/dL (7-18) H 07/19/23 05:57 Creatinine 10.00 mg/dL (0.70-1.30) H* 07/19/23 05:57 Est GFR (MDRD) Af Amer 8 mL/min (>60) L 07/19/23 05:57 Est GFR (MDRD) Non-Af 6 mL/min (>60) L 07/19/23 05:57 BUN/Creatinine Ratio 7.8 RATIO (10-20) L 07/19/23 05:57 Glucose 155 mg/dL (74-106) H 07/19/23 05:57 Random Vancomycin 34.2 ug/mL (0.0-15.0) H 07/19/23 05:57 Microbiology Microbiology: Microbiology 07/16/23 19:05 Wound - Buttock Gram Stain - Final 07/16/23 19:05 Wound - Buttock Wound Culture - Preliminary Proteus mirabilis Gram negative polo GPC Poss Enterococcus sp Staphylococcus aureus 07/16/23 22:10 Mucosa - Nose Respiratory Panel (PCR) - Final 07/16/23 14:10 Mucosa - Nose SARS-CoV-2, Influenza & RSV (PCR) - Final Dosing Weight Weight used for dosin kg Estimated Creatinine Clearance Estimated Creatinine Clearance: on HD Goal Trough Goal Trough: 15-20 mcg/mL Pharmacy Plan for Drug Dosing Pharmacy Plan for Drug Dosing: The vanc trough drawn this morning at 05:57 was 34.2. This is well above goal range so will not need a dose today after HD. Per nephrology note yesterday, the patient gets HD on a /// schedule so will schedule the next random vanc level to be drawn on Saturday AM prior to HD. Will use that result to determine if a dose needs given on Saturday. Pharmacy Service will continue to monitor and adjust dosing as required. Follow-Up Labs Follow-Up Labs: Trough: Vancomycin (random) Date/Time Labs Ordered Labs to be done on [date and time ordered]: 07/22/23 06:00
--- NOTE | 2023-07-19 09:00 | PN.RENAL_ITS ---
Documented by User: KORI Merritt 07/19/23 09:02 Subjective Subjective Patient seen and examined on hemodialysis. Denies any complaints. Objective Data Objective Data Vital Signs: Vital Signs Temp Pulse Resp BP Pulse Ox O2 Del Method O2 Flow Rate 98.4 F 79 14 134/41 H 95 Nasal Cannula 2 07/19/23 04:00 07/19/23 08:43 07/19/23 08:43 07/19/23 08:43 07/19/23 07:16 07/19/23 08:43 07/19/23 08:43 Oxygen Flow Rate (L/min) 2 Oxygen Delivery Method Nasal Cannula Weight: 134 kg Body Mass Index (BMI) 40.0 Intake & Output: Intake and Output for Last 24 Hours 07/17/23 07/18/23 07/19/23 23:59 23:59 23:59 Intake Total 1803.33 / 1803.33 1250 / 1650 510 / 510 Output Total 950 / 950 4800 / 4800 150 / 150 Balance 853.33 / 853.33 -3550 / -3150 360 / 360 Lab / Micro Data 07/19/23 05:57 07/19/23 05:57 Labs: Laboratory Results - last 24 hr 07/18/23 08:30: Sodium 135 L, Potassium 5.3 H, Chloride 99, Carbon Dioxide 27.0, Anion Gap 9, BUN 94 H, Creatinine 11.20 H*, Estim Creat Clear Calc 13.09, Est GFR (MDRD) Af Amer 7 L, Est GFR (MDRD) Non-Af 6 L, BUN/Creatinine Ratio 8.4 L, Glucose 199 H, Calcium 8.6, Phosphorus 5.9 H, Magnesium 2.2 07/18/23 11:29: POC Glucose 144 H 07/18/23 17:03: POC Glucose 122 H 07/18/23 22:20: POC Glucose 184 H 07/19/23 05:57: WBC 8.4, RBC 3.43 L, Hgb 10.3 L, Hct 32.7 L, MCV 95.3 H, MCH 30.0, MCHC 31.5 L, RDW Std Deviation 47.1 H, RDW Coeff of Shanta 13.8, Plt Count 180, MPV 10.3, Immature Gran % (Auto) 0.500, Neut % (Auto) 61.9, Lymph % (Auto) 23.5, [place] % (Auto) 8.8, Eos % (Auto) 4.7, Baso % (Auto) 0.6, Absolute Neuts (auto) 5.2, Absolute Lymphs (auto) 1.97, Nucleated RBC % 0, Sodium 136, Potassium 5.7 H, Chloride 102, Carbon Dioxide 25.0, Anion Gap 9, BUN 78 H, Creatinine 10.00 H*, Estim Creat Clear Calc 14.61, Est GFR (MDRD) Af Amer 8 L, Est GFR (MDRD) Non-Af 6 L, BUN/Creatinine Ratio 7.8 L, Glucose 155 H, Calcium 8.8, Random Vancomycin 34.2 H Micro: Microbiology 07/16/23 19:05 Wound - Buttock Gram Stain - Final 07/16/23 19:05 Wound - Buttock Wound Culture - Final Proteus mirabilis Escherichia coli Enterococcus gallinarum Meth. resistant Staph. aureus 07/16/23 22:10 Mucosa - Nose Respiratory Panel (PCR) - Final 07/16/23 14:10 Mucosa - Nose SARS-CoV-2, Influenza & RSV (PCR) - Final Rhythm Strip Rhythm Strip: Sinus Rhythm Rate: 84 Ectopy: None Physical Exam Narrative Alert and oriented x 3, no apparent distress S1, S2, RRR Lung sounds clear anteriorly and posteriorly Abdomen soft, nontender Left AKA, no edema to left thigh. Right lower leg with trace to 1+ pitting edema Left forearm AV fistula positive thrill and bruit Assessment & Plan Assessment/Plan (1) 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 disease: (2) Decubitus ulcer of ischial area: QUALIFIERS: Laterality: left Pressure injury stage: stage 4 Qualified Code(s): L89.324 - Pressure ulcer of left buttock, stage 4 (3) Hyperkalemia: (4) Anemia of chronic disease: PLAN: Plan This is a 37-year-old -[place] male with past medical history significant for ESRD on hemodialysis at [facility] dialyzing on a Saturday, Saturday, , Saturday schedule followed by Dr. Granda, history of failed kidney transplant has been on tacrolimus and prednisone, chronic systolic heart failure, hypertension, hyperlipidemia, diabetes mellitus type 2, left AKA, history of chronic left ischial/sacral wounds, incomplete paraplegia who was brought to the emergency room for evaluation as patient had been complaining of mild cough, fever and chills. Testing for influenza, RSV and COVID were negative. Patient was admitted for acutely infected chronic left ischial/sacral wound with concern for osteomyelitis, started on IV antibiotics. Nephrology consulted for hemodialysis management. - ESRD on HD at [facility] /// schedule. Underwent HD yesterdasy with ~2L UF. Patient to undergo hemodialysis today over 3.5 hours and attempt fluid removal as patient/blood pressure tolerates. He will be on a 2K bath -Hyperkalemia; patient to continue on 2K dialysate bath and renal diet. Reviewed with patient again today foods to avoid that are potassium rich - anemia of chronic disease, current hemoglobin is 10.3. Will monitor hemoglobin trends. He does not need REILLY with HD at this time. - hypertension, current blood pressures acceptable on multiple antihypertensives. - Left ischial/sacral wound; on IV antibiotics, wound care. ID following Documented by User: Dr. Lv Toscano MD 07/19/23 16:35 Objective Data Lab / Micro Data 07/19/23 05:57 07/19/23 05:57 Assessment & Plan Assessment/Plan (1) 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 disease: (2) Decubitus ulcer of ischial area: QUALIFIERS: Laterality: left Pressure injury stage: stage 4 Qualified Code(s): L89.324 - Pressure ulcer of left buttock, stage 4 (3) Hyperkalemia: (4) Anemia of chronic disease: PLAN: Plan This is a 37-year-old -[place] male with past medical history significant for ESRD on hemodialysis at [facility] dialyzing on a Saturday, Saturday, , Saturday schedule followed by Dr. Granda, history of failed kidney transplant has been on tacrolimus and prednisone, chronic systolic heart failure, hypertension, hyperlipidemia, diabetes mellitus type 2, left AKA, history of chronic left ischial/sacral wounds, incomplete paraplegia who was brought to the emergency room for evaluation as patient had been complaining of mild cough, fever and chills. Testing for influenza, RSV and COVID were negative. Patient was admitted for acutely infected chronic left ischial/sacral wound with concern for osteomyelitis, started on IV antibiotics. Nephrology consulted for hemodialysis management. - ESRD on HD at [facility] /// schedule. Underwent HD yesterdasy with ~2L UF. Patient to undergo hemodialysis today over 3.5 hours and attempt fluid removal as patient/blood pressure tolerates. He will be on a 2K bath -Hyperkalemia; patient to continue on 2K dialysate bath and renal diet. Reviewed with patient again today foods to avoid that are potassium rich - anemia of chronic disease, current hemoglobin is 10.3. Will monitor hemoglobin trends. He does not need REILLY with HD at this time. - hypertension, current blood pressures acceptable on multiple antihypertensives. - Left ischial/sacral wound; on IV antibiotics, wound care. ID following Nephrology attending: Patient seen and examined. I agree with YUE's assessment and plan as documented above. The patient seen during the dialysis treatment and is tolerating well. We are using 2K dialysate on dialysis today. Next dialysis treatment is scheduled for 07/22/2023. Zen Holley MD
[2023-07-19 09:50] LABS: Bedside Glucose 115 mg/dL (74-106)
--- NOTE | 2023-07-19 10:02 | PN.HOSP_ITS ---
Reason for Visit Reason for Visit: Diagnoses Pressure ulcer of unspecified buttock, unspecified stage (07/16/23) Pressure ulcer of left buttock, stage 4 (07/16/23) End stage renal disease (07/16/23) Dependence on renal dialysis (07/16/23) Subjective Subjective Patient seen having dialysis. Culture from his decubitus wound reviewed results are as below Objective Data Objective Data Vital Signs: Vital Signs Temp Pulse Resp BP Pulse Ox O2 Del Method O2 Flow Rate 98.4 F 80 14 117/41 L 95 Nasal Cannula 2 07/19/23 04:00 07/19/23 09:41 07/19/23 09:41 07/19/23 09:41 07/19/23 08:18 07/19/23 09:41 07/19/23 09:41 Oxygen Flow Rate (L/min) 2 Oxygen Delivery Method Nasal Cannula Weight: 134 kg Body Mass Index (BMI) 40.0 Intake & Output: Intake and Output for Last 24 Hours 07/17/23 07/18/23 07/19/23 23:59 23:59 23:59 Intake Total 1803.33 / 1803.33 1250 / 1650 510 / 510 Output Total 950 / 950 4800 / 4800 150 / 150 Balance 853.33 / 853.33 -3550 / -3150 360 / 360 Lab / Micro Data 07/19/23 05:57 07/19/23 05:57 Labs: Laboratory Results - last 24 hr 07/18/23 08:30: Sodium 135 L, Potassium 5.3 H, Chloride 99, Carbon Dioxide 27.0, Anion Gap 9, BUN 94 H, Creatinine 11.20 H*, Estim Creat Clear Calc 13.09, Est GFR (MDRD) Af Amer 7 L, Est GFR (MDRD) Non-Af 6 L, BUN/Creatinine Ratio 8.4 L, Glucose 199 H, Calcium 8.6, Phosphorus 5.9 H, Magnesium 2.2 07/18/23 11:29: POC Glucose 144 H 07/18/23 17:03: POC Glucose 122 H 07/18/23 22:20: POC Glucose 184 H 07/19/23 05:57: WBC 8.4, RBC 3.43 L, Hgb 10.3 L, Hct 32.7 L, MCV 95.3 H, MCH 30.0, MCHC 31.5 L, RDW Std Deviation 47.1 H, RDW Coeff of Shanta 13.8, Plt Count 180, MPV 10.3, Immature Gran % (Auto) 0.500, Neut % (Auto) 61.9, Lymph % (Auto) 23.5, [place] % (Auto) 8.8, Eos % (Auto) 4.7, Baso % (Auto) 0.6, Absolute Neuts (auto) 5.2, Absolute Lymphs (auto) 1.97, Nucleated RBC % 0, Sodium 136, Potassium 5.7 H, Chloride 102, Carbon Dioxide 25.0, Anion Gap 9, BUN 78 H, Creatinine 10.00 H*, Estim Creat Clear Calc 14.61, Est GFR (MDRD) Af Amer 8 L, Est GFR (MDRD) Non-Af 6 L, BUN/Creatinine Ratio 7.8 L, Glucose 155 H, Calcium 8.8, Random Vancomycin 34.2 H 07/19/23 08:14: POC Glucose 115 H Micro: Microbiology 07/16/23 19:05 Wound - Buttock Gram Stain - Final 07/16/23 19:05 Wound - Buttock Wound Culture - Final Proteus mirabilis Escherichia coli Enterococcus gallinarum Meth. resistant Staph. aureus 07/16/23 22:10 Mucosa - Nose Respiratory Panel (PCR) - Final 07/16/23 14:10 Mucosa - Nose SARS-CoV-2, Influenza & RSV (PCR) - Final Rhythm Strip Rhythm Strip: Sinus Rhythm Rate: 84 Ectopy: None Physical Exam Narrative GENERAL: cooperative HEENT: Atraumatic; normocephalic EYES; Anicteric, Normal Conjunctiva NECK; supple, normal thyroid, RESPIRATORY: Diminished to auscultation CARDIOVASCULAR: Regular S1 S2, GI: soft, normoactive bowel sounds, : No Renal angle tenderness; EXTREMITIES: No edema, no clubbing, MUSCULOSKELETAL: Left AKA NEURO: Awake; no lateralizing signs. SKIN: Stage IV decubitus ulcer PSYCH; Flat affect Assessment & Plan Assessment/Plan (1) Decubitus ulcer of ischial area: QUALIFIERS: Laterality: left Pressure injury stage: stage 4 Qualified Code(s): L89.324 - Pressure ulcer of left buttock, stage 4 PLAN: Plan Patient is a 37-year-old gentleman resident at an extended care facility with recent left AKA who presented with shortness of breath abdominal pain and chest discomfort. CT of the abdomen and pelvis obtained on admission demonstrated decubitus ulcer in the left gluteus with involvement of the ischial tuberosity with sclerotic and erosive changes concerning for osteomyelitis. Admitted to a monitored bed for subsequent management. 1. Suspected infected left ischial/sacral wound with possible osteomyelitis. - Admitted to regular nursing floor patient started on broad-spectrum antibiotic therapy with consultation placed to plastic surgery as well as infectious disease. Consult was also placed to wound care nurse for dressing changes. Cultures were obtained on admission -07/18/2023 : wound Culture - Preliminary, Proteus mirabilis, Gram negative polo, GPC Poss Enterococcus sp, Staphylococcus aureus. Patient remains on broad- spectrum antibiotic therapy final antibiotic therapy deferred to ID 07/19/2023. Final culture result from patient decubitus wound as follows STEMI Proteus mirabilis, Escherichia coli, Enterococcus gallinarum, Meth. resistant Staph. aureus. Patient remains on piperacillin/tazobactam as well as vancomycin. Final antibiotic therapy deferred to Dr. Medeiros with ID 2. End-stage renal disease ? Patient has history of failed renal transplant. Currently on hemodialysis on Tuesdays and Saturdays consult placed to nephrology for dialysis orders 3. Status post left AKA ? Supportive care 4. Anemia ? Secondary to anemia of end-stage renal disease monitoring H&H with plans to transfuse or if patient is deemed to be symptomatic 5. Dyslipidemia -Patient is on statin therapy, continued at home dose 6. Hypothyroidism - Patient is on levothyroxine home dose continued 7. Hypertension - Blood pressure controlled, home medications continued with dose adjustment as needed 8. Class III obesity with BMI of 40.4 ? Complicating care weight loss advised 9. Diabetes mellitus type II -patient's oral hypoglycemics held. Placed on long acting insulin, Accu-Cheks a.c. and at bedtime and covered with sliding scale insulin 10. GERD ? On PPI 11. Depression with anxiety ? Patient is on escitalopram did continue 12. History of previous VTE ? Patient is on apixaban did continue Time spent in the patient's overall evaluation,decision-making process, review of diagnostic data, adjustment of management, discussion with other providers, nursing nursing and ancillary staff involved in patient's care documentation, 40 Minutes Charges/Coding Visit Charges Inpatient E&M: 88481 Subs Hosp L2
[2023-07-19] MEDS: SEVELAMER CARBONATE 800 MG TABLET 2400 MG PO ×3 (10:17→18:23)
[2023-07-19] MEDS: Insulin Lispro 100 UNIT/ML INSULN.PEN 6 UNIT SC ×2 (10:18→18:23)
[2023-07-19] MEDS: Juven (unflavored) Packet 1 PACKET PO ×2 (10:19→18:21)
[2023-07-19 10:53] LABS: Bedside Glucose 109 mg/dL (74-106)
[2023-07-19] MEDS: predniSONE 5 MG Tablet PO (10:54)
[2023-07-19] MEDS: Ascorbic Acid 500 MG Tablet PO (10:55)
[2023-07-19] MEDS: Menthol/Lanolin/Calamine/Znox 113 GM Tube 1 APPLIC TOPICAL ×3 (10:55→18:23)
[2023-07-19] MEDS: Senna/Docusate Sodium 1 Tablet PO (10:55)
[2023-07-19] MEDS: Tacrolimus Anhydrous 1 MG Capsule 2 MG PO (10:56)
[2023-07-19] MEDS: Pantoprazole Sodium 40 MG Tablet PO (10:56)
[2023-07-19] MEDS: amLODIPine 5 MG Tablet PO (10:56)
[2023-07-19] MEDS: Carvedilol 12.5 MG Tablet PO ×2 (10:57→21:19)
[2023-07-19] MEDS: Miconazole Nitrate 43 GM Bottle 1 APPLIC TOPICAL (10:57)
[2023-07-19] MEDS: Calcitriol 0.25 MCG Capsule 1 MCG PO (11:08)
[2023-07-19] MEDS: Piperacil/Tazobactam 3.375 GM in 0.9% Normal Saline (50mL MB+) 50 ML IV (11:09)
[2023-07-19] MEDS: APIXABAN 5 MG TABLET PO (11:10)
[2023-07-19] MEDS: Escitalopram Oxalate 10 MG Tablet PO (11:10)
[2023-07-19] MEDS: Gabapentin 100 MG Capsule PO (11:13)
--- NOTE | 2023-07-19 13:21 | PCM.PN.ID ---
Physical Exam Narrative Feeling fine, no fever, no n/v/d. No abd pain. Const alert and no apparent distress Resp normal air movement and clear to auscultation bilaterally Cardio regular rate and regular rhythm GI soft to palpation, non-tender and non-distended Skin Skin Narrative: no new rash ID ID: Route of nutrition/ use of supplements: [] Nutritional Intake: [] IV Site: [] Hurst Catheter: [] Assessment & Plan Assessment/Plan (1) Chronic kidney disease with end stage renal failure on dialysis: (2) Decubitus ulcer of ischial area: QUALIFIERS: Pressure injury stage: stage 4 Laterality: left Qualified Code(s): L89.324 - Pressure ulcer of left buttock, stage 4 PLAN: Wound cx with proteus, MRSA, enterococcus, ecoli. On empiric vanc/zosyn. CT with ? bone changes. No fever, no leukocytosis. Reports chronic ulcers have been improving at [facility]. No purulence or redness here. Will write for short course linezolid and augmentin, po. Will follow as needed
--- NOTE | 2023-07-19 15:56 | DS.PCM_ITS ---
Providers Date of Admission: 07/16/23 Date of Discharge: 07/19/23 Primary Care Physician: Dr. Vanessa Hutchins MD Consultations 07/16/23 20:22 Consult: Infectious Disease Routine Consulting Provider: Jabari Medeiros Reason for Consult: ? Acutely infected L ischial wound/? acute osteo EMERGENT Consult: No Notified: Yes Date Notified: 07/17/23 Time Notified: 08:01 Method of Notification: Text Consult: Nephrology Routine Consulting Provider: Ansley Peña Reason for Consult: ESRD on HD EMERGENT Consult: No Notified: Yes Date Notified: 07/17/23 Time Notified: 07:07 Method of Notification: Text Consult: Onc/Wound/bonding machine tender Routine Comment: Reason for Consult:: Decub wound Consult: Plastic Surgery Routine Consulting Provider: Yusuf Villagran Reason for Consult: Infected decubitous ulcer/osteo EMERGENT Consult: No Notified: Yes Date Notified: 07/17/23 Time Notified: 07:32 Method of Notification: Verbal Comments:: Dr. Turk Reason For Visit: ATYPICAL CP, ?ACUTE INFECTED L ISCHIAL OSTEO Diagnosis Discharge Diagnosis (1) Chronic kidney disease with end stage renal failure on dialysis: Status: Chronic Code(s): N18.6 - End stage renal disease; Z99.2 - Dependence on renal dialysis (2) Decubitus ulcer of ischial area: Status: Acute Code(s): L89.309 - Pressure ulcer of unspecified buttock, unspecified stage Qualifiers: Pressure injury stage: stage 4 Laterality: left Qualified Code(s): L89.324 - Pressure ulcer of left buttock, stage 4 Plan Patient is a 37-year-old gentleman resident at an extended care facility with recent left AKA who presented with shortness of breath abdominal pain and chest discomfort. CT of the abdomen and pelvis obtained on admission demonstrated decubitus ulcer in the left gluteus with involvement of the ischial tuberosity with sclerotic and erosive changes concerning for osteomyelitis. Admitted to a monitored bed for subsequent management. 1. Suspected infected left ischial/sacral wound with possible osteomyelitis. - Admitted to regular nursing floor patient started on broad-spectrum antibiotic therapy with consultation placed to plastic surgery as well as infectious disease. Consult was also placed to wound care nurse for dressing changes. Cul tures were obtained on admission -07/18/2023 : wound Culture - Preliminary, Proteus mirabilis, Gram negative polo, GPC Poss Enterococcus sp, Staphylococcus aureus. Patient remains on broad- spectrum antibiotic therapy final antibiotic therapy deferred to ID 07/19/2023. Final culture result from patient decubitus wound as follows: Proteus mirabilis, Escherichia coli, Enterococcus gallinarum, Meth. resistant Staph. aureus. Patient remains on piperacillin/tazobactam as well as vancomycin. Final antibiotic therapy deferred to Dr. Medeiros with ID ? Patient was discharged on a short course of Augmentin and linezolid per Recommendations from Dr. Medeiros with I 2. End-stage renal disease ? Patient has history of failed renal transplant. Currently on hemodialysis on Tuesdays and Saturdays consult placed to nephrology for dialysis orders 3. Status post left AKA ? Supportive care 4. Anemia ? Secondary to anemia of end-stage renal disease monitoring H&H with plans to transfuse or if patient is deemed to be symptomatic 5. Dyslipidemia -Patient is on statin therapy, continued at home dose 6. Hypothyroidism - Patient is on levothyroxine home dose continued 7. Hypertension - Blood pressure controlled, home medications continued with dose adjustment as needed 8. Class III obesity with BMI of 40.4 ? Complicating care weight loss advised 9. Diabetes mellitus type II -patient's oral hypoglycemics held. Placed on long acting insulin, Accu-Cheks a.c. and at bedtime and covered with sliding scale insulin 10. GERD ? On PPI 11. Depression with anxiety ? Patient is on escitalopram did continue 12. History of previous VTE ? Patient is on apixaban did continue Time spent in the patient's overall evaluation,decision-making process, review of diagnostic data, adjustment of management, discussion with other providers, nursing nursing and ancillary staff involved in patient's care documentation, 40 Minutes Medications at Discharge Home Medications acetaminophen 325 mg tablet 650 mg PO Q4H PRN PAIN/FEVER 01/02/23 apixaban 5 mg tablet (Eliquis) 5 mg PO BID 01/02/23 ascorbic acid (vitamin C) 500 mg tablet 500 mg PO DAILY 01/02/23 atorvastatin 40 mg tablet 40 mg PO QHS 01/02/23 bisacodyl 10 mg rectal suppository 10 mg FL DAILY PRN Constipation 01/02/23 carvedilol 12.5 mg tablet 12.5 mg PO BID 01/02/23 cetylpyridinium chloride 1 yunior mucous membrane Q3H PRN Sore Throat 01/02/23 clotrimazole-betamethasone 1 %-0.05 % topical cream 1 applic topical QHS 01/02/23 dextrose 40 % oral gel (Glucose Gel) 15 g PO Q15M PRN Hypoglycemia 01/02/23 famotidine 20 mg tablet 20 mg PO DAILY 01/02/23 hydralazine 25 mg tablet 25 mg PO Q8 01/02/23 insulin glargine 100 unit/mL (3 mL) subcutaneous pen (Lantus Solostar U-100 Insulin) 24 unit subcut QHS 01/02/23 insulin lispro 100 unit/mL subcutaneous pen (Humalog KwikPen (U-100) Insulin) 6 unit subcut BID 01/02/23 midodrine 10 mg tablet 10 mg PO MOTUTHFR 01/02/23 nystatin 100,000 unit/gram topical powder 1 applic topical PRN PRN Skin Interv ention 01/02/23 ondansetron HCl 4 mg tablet 4 mg PO Q6H PRN Nausea 01/02/23 pantoprazole 40 mg tablet,delayed release 40 mg PO DAILY 01/02/23 polyethylene glycol 3350 17 gram oral powder packet 17 g PO DAILY PRN constipation 01/02/23 prednisone 5 mg tablet 5 mg PO DAILY 01/02/23 promethazine 12.5 mg tablet 12.5 mg PO Q8H PRN Nausea 01/02/23 sennosides 8.6 mg-docusate sodium 50 mg capsule (Senna Plus) 1 tab-cap PO BID Constipation 01/02/23 sodium phosphates 19 gram-7 gram/118 mL enema (Fleet Enema) 118 ml FL DAILY PRN Constipation 01/02/23 tacrolimus 1 mg capsule, immediate-release (Prograf) 2 mg PO Q12H 01/02/23 trazodone 50 mg tablet 125 mg PO QHS 01/02/23 amlodipine 5 mg tablet (Norvasc) 5 mg PO DAILY 04/21/23 calcitriol 0.5 mcg capsule 1.25 mcg PO DAILY 04/21/23 gabapentin 100 mg capsule 100 mg PO MOTUTHFR PHANTOM PAIN 04/21/23 sevelamer HCl 800 mg tablet 2,400 mg PO TID 04/21/23 ammonium lactate 5 % lotion 1 applic topical QHS 07/16/23 benzoyl peroxide 5 % lotion 1 applic topical QHS 07/16/23 diphenhydramine HCl 25 mg tablet 25 mg PO DAILY 07/16/23 escitalopram oxalate 20 mg tablet 20 mg PO DAILY 07/16/23 guaifenesin 100 mg/5 mL oral liquid (Adult Tussin Chest Congestion) 200 mg PO Q4H PRN cough 07/16/23 levothyroxine 150 mcg tablet 150 mcg PO DAILY 07/16/23 melatonin 10 mg tablet 10 mg PO QHS 07/16/23 acetaminophen 500 mg tablet 1,000 mg (2 x 500 mg) PO Q8 #0 tabs 07/19/23 amoxicillin 500 mg-potassium clavulanate 125 mg tablet 1 tab PO QPM 7 days #7 tabs 07/19/23 linezolid 600 mg tablet 600 mg PO BID 7 days #14 tabs 07/19/23 oxycodone 10 mg tablet 10 mg PO Q4H PRN pain 2 days #12 tabs 07/19/23 Physical Exam Narrative GENERAL: cooperative HEENT: Atraumatic; normocephalic EYES; Anicteric, Normal Conjunctiva NECK; supple, normal thyroid, RESPIRATORY: Diminished to auscultation CARDIOVASCULAR: Regular S1 S2, GI: soft, normoactive bowel sounds, : No Renal angle tenderness; EXTREMITIES: No edema, no clubbing, MUSCULOSKELETAL: Left AKA NEURO: Awake; no lateralizing signs. SKIN: Stage IV decubitus ulcer PSYCH; Flat affect Weight / BMI Weight Weight: 132.5 kg Body Mass Index (BMI) 39.6 ABG / Lab / Microbiology Data 07/19/23 05:57 07/19/23 05:57 Laboratory: Laboratory Results - last 24 hr 07/18/23 17:03: POC Glucose 122 H 07/18/23 22:20: POC Glucose 184 H 07/19/23 05:57: WBC 8.4, RBC 3.43 L, Hgb 10.3 L, Hct 32.7 L, MCV 95.3 H, MCH 30.0, MCHC 31.5 L, RDW Std Deviation 47.1 H, RDW Coeff of Shanta 13.8, Plt Count 180, MPV 10.3, Immature Gran % (Auto) 0.500, Neut % (Auto) 61.9, Lymph % (Auto) 23.5, Swain % (Auto) 8.8, Eos % (Auto) 4.7, Baso % (Auto) 0.6, Absolute Neuts (auto) 5.2, Absolute Lymphs (auto) 1.97, Nucleated RBC % 0, Sodium 136, Potass ium 5.7 H, Chloride 102, Carbon Dioxide 25.0, Anion Gap 9, BUN 78 H, Creatinine 10.00 H*, Estim Creat Clear Calc 14.61, Est GFR (MDRD) Af Amer 8 L, Est GFR (MDRD) Non-Af 6 L, BUN/Creatinine Ratio 7.8 L, Glucose 155 H, Calcium 8.8, Random Vancomycin 34.2 H 07/19/23 08:14: POC Glucose 115 H 07/19/23 10:10: POC Glucose 109 H Microbiology: Microbiology 07/19/23 02:22 Sputum, Expectorated/Coughed Gram Stain - Final 07/16/23 19:05 Blood Culture (Wb) - Right Forearm Blood Culture - Preliminary No growth in 48 hours. 07/16/23 18:30 Blood Culture (Wb) - Right Wrist Blood Culture - Preliminary No growth in 48 hours. 07/16/23 19:05 Wound - Buttock Gram Stain - Final 07/16/23 19:05 Wound - Buttock Wound Culture - Final Proteus mirabilis Escherichia coli Enterococcus gallinarum Meth. resistant Staph. aureus 07/16/23 22:10 Mucosa - Nose Respiratory Panel (PCR) - Final 07/16/23 14:10 Mucosa - Nose SARS-CoV-2, Influenza & RSV (PCR) - Final D/C Instructions Discharge Diet: 1800 Calorie Control Diet and Renal Diet Discharge Activity: Return to Normal Activity Call your doctor if you observe: Fever of 101 or Higher, Shortness of breath, Fainting spells and Chest pain Meaningful Use Info Meaningful Use Diagnoses (Choose all that apply): None applicable Discharge Plan Admission Admit Date/Time: 07/16/23 18:41 Attending Provider: Fortunato Palomo Primary Care Provider: Vanessa Hutchins Consulting Providers: Ansley Peña; Olga Moore; Jabari Medeiros; Eula yanez,Yusuf Yates Instructions Patient Instructions: Abdominal Pain Additional Instructions / Restrictions: Your labs did not show any significant abnormalities today. Follow-up with your [facility] care facility physician. Discharge Orders/Prescriptions Prescriptions: New acetaminophen 500 mg Tablet 1,000 mg PO Q8 Qty: 0 0RF linezolid 600 mg Tablet 600 mg PO BID 7 Days Qty: 14 0RF amoxicillin-pot clavulanate 500-125 mg Tablet 1 tab PO QPM 7 Days Qty: 7 0RF Continued atorvastatin 40 mg Tablet 40 mg PO QHS acetaminophen 325 mg Tablet 650 mg PO Q4H PRN (Reason: PAIN/FEVER) carvedilol 12.5 mg Tablet 12.5 mg PO BID Rx Instructions: must administer with a meal/food ascorbic acid (vitamin C) 500 mg Tablet 500 mg PO DAILY bisacodyl 10 mg Suppository 10 mg FL DAILY PRN (Reason: Constipation) dextrose [Glucose Gel] 40 % Gel 15 g PO Q15M PRN (Reason: Hypoglycemia) Rx Instructions: until symptoms of low blood sugar are controlled famotidine 20 mg Tablet 20 mg PO DAILY Fleet Enema 19-7 gram/118 mL Enema 118 ml FL DAILY PRN (Reason: Constipation) cetylpyridinium chloride Lozenge 1 yunior MUCOUS MEMBRANE Q3H PRN (Reason: Sore Throat) insulin lispro [Humalog KwikPen Insulin] 100 unit/mL Insulin Pen 6 unit SUBCUT BID Eliquis 5 mg Tablet 5 mg PO BID trazodone 50 mg Tablet 125 mg PO QHS prednisone 5 mg Tablet 5 mg PO DAILY hydralazine 25 mg Tablet 25 mg PO Q8 pantoprazole 40 mg Tablet,Delayed Release (Dr/Ec) 40 mg PO DAILY clotrimazole-betamethasone 1-0.05 % Cream 1 applic TOPICAL QHS tacrolimus [Prograf] 1 mg Capsule 2 mg PO Q12H midodrine 10 mg Tablet 10 mg PO MOTUTHFR Rx Instructions: TAKE 1 TAB BY MOUTH EVERY SATURDAY, SATURDAY, SATURDAY, AND SATURDAY for hypotension prior to dialysis Hold BP >130/90 insulin glargine [Lantus Solostar U-100 Insulin] 100 unit/mL (3 mL) Insulin Pen 24 unit SUBCUT QHS polyethylene glycol 3350 17 gram Powder In Packet 17 g PO DAILY PRN (Reason: constipation) promethazine 12.5 mg Tablet 12.5 mg PO Q8H PRN (Reason: Nausea) ondansetron HCl 4 mg Tablet 4 mg PO Q6H PRN (Reason: Nausea) nystatin 100,000 unit/gram Powder 1 applic TOPICAL PRN PRN (Reason: Skin Intervention) Senna Plus 8.6-50 mg Capsule 1 tab-cap PO BID calcitriol 0.5 mcg capsule 1.25 mcg PO DAILY Patient Comments: MAR STATES THAT PT TAKES IN THE MORNING gabapentin 100 mg capsule 100 mg PO MOTUTHFR amlodipine [Norvasc] 5 mg tablet 5 mg PO DAILY sevelamer HCl 800 mg tablet 2,400 mg PO TID Rx Instructions: must administer with a meal/food ammonium lactate 5 % lotion 1 applic topical QHS benzoyl peroxide 5 % lotion 1 applic topical QHS escitalopram oxalate 20 mg tablet 20 mg PO DAILY levothyroxine 150 mcg tablet 150 mcg PO DAILY Patient Comments: MAR STATES PT TAKES IN THE AM melatonin 10 mg tablet 10 mg PO QHS diphenhydramine HCl 25 mg tablet 25 mg PO DAILY guaifenesin [Adult Tussin Chest Congestion] 100 mg/5 mL liquid 200 mg PO Q4H PRN (Reason: cough) oxycodone 10 mg tablet 10 mg PO Q4H PRN (Reason: pain) 2 Days Qty: 12 0RF Referrals / Follow Up: Vanessa Hutchins MD [Primary Care Provider] - 3-5 Days if not improving Disposition Disposition (needs filled in before D/C Order can be placed): Detention Facility Charges/Coding Visit Charges Inpatient E&M: 22192 Disch Hosp >30min
--- NOTE | 2023-07-19 16:24 | PN.SURG_ITS ---
Subjective Subjective Patient resting in bed. He states that he does have pain/discomfort from his left ischial pressure sore. Objective Data Objective Data Vital Signs: Vital Signs Temp Pulse Resp BP Pulse Ox O2 Del Method O2 Flow Rate 98 F 83 15 171/92 H 96 Room Air 2 07/19/23 15:03 07/19/23 15:08 07/19/23 15:03 07/19/23 15:08 07/19/23 15:03 07/19/23 15:03 07/19/23 12:46 Oxygen Flow Rate (L/min) 2 Oxygen Delivery Method Room Air Weight: 292 lb 1.8 oz Body Mass Index (BMI) 39.6 Intake & Output: Intake and Output for Last 24 Hours 07/17/23 07/18/23 07/19/23 23:59 23:59 23:59 Intake Total 1803.33 / 1803.33 1250 / 1650 560 / 560 Output Total 950 / 950 4800 / 4800 1950 / 1950 Balance 853.33 / 853.33 -3550 / -3150 -1390 / -1390 Lab / Micro Data Attestation: I reviewed the patient's lab results. 07/19/23 05:57 07/19/23 05:57 Labs: Laboratory Results - last 24 hr 07/18/23 17:03: POC Glucose 122 H 07/18/23 22:20: POC Glucose 184 H 07/19/23 05:57: WBC 8.4, RBC 3.43 L, Hgb 10.3 L, Hct 32.7 L, MCV 95.3 H, MCH 30.0, MCHC 31.5 L, RDW Std Deviation 47.1 H, RDW Coeff of Shanta 13.8, Plt Count 180, MPV 10.3, Immature Gran % (Auto) 0.500, Neut % (Auto) 61.9, Lymph % (Auto) 23.5, Saline % (Auto) 8.8, Eos % (Auto) 4.7, Baso % (Auto) 0.6, Absolute Neuts (auto) 5.2, Absolute Lymphs (auto) 1.97, Nucleated RBC % 0, Sodium 136, Potassium 5.7 H, Chloride 102, Carbon Dioxide 25.0, Anion Gap 9, BUN 78 H, Creatinine 10.00 H*, Estim Creat Clear Calc 14.61, Est GFR (MDRD) Af Amer 8 L, Est GFR (MDRD) Non-Af 6 L, BUN/Creatinine Ratio 7.8 L, Glucose 155 H, Calcium 8.8, Random Vancomycin 34.2 H 07/19/23 08:14: POC Glucose 115 H 07/19/23 10:10: POC Glucose 109 H Micro: Microbiology 07/19/23 02:22 Sputum, Expectorated/Coughed Gram Stain - Final 07/16/23 19:05 Blood Culture (Wb) - Right Forearm Blood Culture - Preliminary No growth in 48 hours. 07/16/23 18:30 Blood Culture (Wb) - Right Wrist Blood Culture - Preliminary No growth in 48 hours. 07/16/23 19:05 Wound - Buttock Gram Stain - Final 07/16/23 19:05 Wound - Buttock Wound Culture - Final Proteus mirabilis Escherichia coli Enterococcus gallinarum Meth. resistant Staph. aureus 07/16/23 22:10 Mucosa - Nose Respiratory Panel (PCR) - Final 07/16/23 14:10 Mucosa - Nose SARS-CoV-2, Influenza & RSV (PCR) - Final Rhythm Strip Rhythm Strip: Sinus Rhythm Rate: 84 Ectopy: None Physical Exam Const oriented x3 and no apparent distress HEENT normocephalic Head and Scalp: atraumatic Eyes General Eye: normal appearance of both eyes Resp normal respiratory effort and clear to auscultation bilaterally Cardio regular rate and regular rhythm Extremity Extremity Narrative: Left BKA Skin Wound Narrative: Left ischial ulcer is stable. There is maceration surrounding the ulcer along with scar tissue. Unsure if the base of the ulcer is healed. There is pink granulation tissue present. There is small amount of drainage present. Chelsey wound stable. Neuro oriented x3 Psych cooperative Assessment & Plan Assessment/Plan (1) Decubitus ulcer of ischial area: QUALIFIERS: Pressure injury stage: stage 4 Laterality: left Qualified Code(s): L89.324 - Pressure ulcer of left buttock, stage 4 (2) 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 disease: (3) History of diabetes mellitus: PLAN: Plan Left ischial ulcer is stable. Dry dressing in place. Wound culture obtained on 07/16/23 and is positive for Proteus mirabilis, E. coli, Enterococcus gallinarum, and MRSA. He is being seen by ID and he has prescribed oral antibiotics of Linezolid and Augmentin. Patient lives in [facility]. Patient ESRD on hemodialysis T--Sat. Type 2 DM. Will have patient follow up with me at the wound center upon discharge for wound management. Charges/Coding Visit Charges Inpatient E&M: 65472 Subs Hosp L1
--- NOTE | 2023-07-19 16:29 | CASEMGMT ---
Patient is ready for discharge back to [facility]. Plan: d/c back to [facility] under intermediate level of care. Physicians will transport patient. Naina HERRERA
--- NOTE | 2023-07-19 16:51 | CASEMGMT ---
Discharge Planning Discharge orders, signed med list, and transport time sent to [facility] via [facility]. [facility] will transport patient by cot at 7:30p. Nursing, SW, and patient updated. Unable to contact any family members listed. Selnia Sylvester, Discharge Planning Asst.
--- NOTE | 2023-07-19 18:09 | NURSING ---
report called to [facility]
[2023-07-19] MEDS: Amox/Clavulanate 500 MG Tablet PO (18:21)
[2023-07-19 18:53] LABS: Bedside Glucose 138 mg/dL (74-106)
[2023-07-19 21:16] LABS: Bedside Glucose 134 mg/dL (74-106)
== END 2023-07-19 21:23 | disposition skilled nursing facility (03) | DRG 592 ==
LOC: ED 18:59 → PCU 20:07
PROVIDERS: Emergency Medicine; Admitting Provider Family Medicine; Emergency Provider Emergency Medicine; PCP Internal Medicine; Visit Provider Internal Medicine
DX: L89.324 Pressure ulcer of left buttock, stage 4 (principal); N18.6 End stage renal disease; T86.12 Kidney transplant failure; I13.2 Hypertensive heart and chronic kidney disease with heart failure and with stage 5 chronic kidney disease, or end stage renal disease; G82.22 Paraplegia, incomplete; M86.8X8 Other osteomyelitis, other site; Z68.41 Body mass index [BMI] 40.0-44.9, adult; I50.22 Chronic systolic (congestive) heart failure; D63.1 Anemia in chronic kidney disease; E11.69 Type 2 diabetes mellitus with other specified complication; E11.22 Type 2 diabetes mellitus with diabetic chronic kidney disease; E11.40 Type 2 diabetes mellitus with diabetic neuropathy, unspecified; E66.01 Morbid (severe) obesity due to excess calories; Z79.4 Long term (current) use of insulin; Z99.2 Dependence on renal dialysis; Z89.612 Acquired absence of left leg above knee; Z93.3 Colostomy status; F32.A Depression, unspecified; E03.9 Hypothyroidism, unspecified; E78.5 Hyperlipidemia, unspecified; K21.9 Gastro-esophageal reflux disease without esophagitis; F41.9 Anxiety disorder, unspecified; E87.5 Hyperkalemia; Z11.52 Encounter for screening for COVID-19; Y83.0 Surgical operation with transplant of whole organ as the cause of abnormal reaction of the patient, or of later complication, without mention of misadventure at the time of the procedure; R07.89 Other chest pain; B96.4 Proteus (mirabilis) (morganii) as the cause of diseases classified elsewhere; B95.61 Methicillin susceptible Staphylococcus aureus infection as the cause of diseases classified elsewhere; B96.20 Unspecified Escherichia coli [E. coli] as the cause of diseases classified elsewhere; Z79.52 Long term (current) use of systemic steroids; Z79.01 Long term (current) use of 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; Z79.82 Long term (current) use of aspirin; Z79.890 Hormone replacement therapy; Z79.899 Other long term (current) drug therapy
CPT/HCPCS: 36415; 71045; 71275; 74177; 80048; 80053; 80061; 80202; 82962; 83690; 83735; 84100; 84145; 84484; 85025; 85379; 85610; 85652; 86140; 87040; 87070; 87077; 87186; 87205; 87631; 87633; 87640; 90937; 93005; 94668; 97110; 97162; 97166; 97530; 97802; 99285; J7030; J7040; Q9967; A4216; G0257

== ENCOUNTER 2023-07-29 10:19 | Outpatient (RCR) | payer MEDICARE, MEDICAID, SELFPAY ==
[2023-07-29 10:30] VITALS: BP 188/91; PULSE 78; RESP 20; TEMP 36.1; BMI 41.1
--- NOTE | 2023-07-29 13:21 | PCM.WC.HP ---
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 He was recently admitted at [facility] from 07/16/23 to 07/19/23 for a cough, fever and chills. Patient was admitted for acutely infected chronic left ischial/sacral wound with concern for osteomyelitis, started on IV antibiotics. He has a history of ESRD on hemodialysis. History of failed kidney transplant, chronic systolic heart failure, hypertension, hyperlipidemia, diabetes mellitus type II, left AKA, and incomplete paraplegia. He resides at [facility] where he receives his hemodialysis. He had an operative debridement of his left ischial ulcer at [facility] 2 years ago, per the patient. Wound culture obtained on 07/16/23 which was positive for Proteus mirabilis, Escherichia coli, Enterococcus gallinarum, and MRSA. ID was consulted and he was treated with Vancomycin and Zosyn IV He was discharged on Linezolid and Augmentin. CT of abdomen and pelvis on 07/16/23, related to the ulcer showed There is a decubitus ulcer in the left gluteus with extension into and sclerotic and erosive involvement of the left initial tuberosity. This is concerning for osteomyelitis. His wound care consisted of barrier cream. Today he denies fever, chills, nausea or vomiting. He denies any issues with his wound since being discharged. He is unsure if he is on the antibiotics. Progress of Wound: Left ischial ulcer is stable, compared to when being seen when he was admitted to the hospital. [facility] Medical History (Updated 07/31/23 @ 13:57 by Barbara Trevino COMPUTER ASSEMBLER, COMPUTER ASSEMBLER-C) Acute kidney failure Acute on chronic systolic (congestive) heart failure Acute pulmonary edema Acute respiratory failure with hypoxia Anemia in chronic kidney disease Dependence on renal dialysis Depression End stage renal disease Gastro-esophageal reflux disease without esophagitis Hyperkalemia Hyperlipemia Hyperosmolality and hypernatremia Hypertensive heart and chronic kidney disease with heart failure and stage 1 through stage 4 chronic kidney disease, or unspecified chronic kidney disease Hypomagnesemia Hypothyroidism Kidney transplant failure Neurogenic bowel Neuromuscular dysfunction of bladder, unspecified Other acute osteomyelitis, left ankle and foot Other pericardial effusion (noninflammatory) Other pulmonary embolism without acute cor pulmonale Paraplegia, incomplete Pericardial effusion (noninflammatory) Pneumonia Pressure ulcer of left heel, unspecified stage Pyrexia SIRS (systemic inflammatory response syndrome) Type 2 diabetes mellitus with diabetic chronic kidney disease Home Medications acetaminophen 325 mg tablet 650 mg PO Q4H PRN PAIN/FEVER 01/02/23 [History Last Taken 04/21/23] apixaban 5 mg tablet (Eliquis) 5 mg PO BID 01/02/23 [History Last Taken 07/16/23] ascorbic acid (vitamin C) 500 mg tablet 500 mg PO DAILY 01/02/23 [History Last Taken 07/16/23] atorvastatin 40 mg tablet 40 mg PO QHS 01/02/23 [History Last Taken 07/15/23] bisacodyl 10 mg rectal suppository 10 mg SC DAILY PRN Constipation 01/02/23 [History Last Taken Unknown] carvedilol 12.5 mg tablet 12.5 mg PO BID 01/02/23 [History Last Taken 07/16/23] cetylpyridinium chloride 1 yunior mucous membrane Q3H PRN Sore Throat 01/02/23 [History Last Taken Unknown] clotrimazole-betamethasone 1 %-0.05 % topical cream 1 applic topical QHS 01/02/23 [History Last Taken 07/15/23] dextrose 40 % oral gel (Glucose Gel) 15 g PO Q15M PRN Hypoglycemia 01/02/23 [History Last Taken Unknown] famotidine 20 mg tablet 20 mg PO DAILY 01/02/23 [History Last Taken Unknown] hydralazine 25 mg tablet 25 mg PO Q8 01/02/23 [History Last Taken 07/16/23] insulin glargine 100 unit/mL (3 mL) subcutaneous pen (Lantus Solostar U-100 Insulin) 24 unit subcut QHS 01/02/23 [History Last Taken 07/16/23] insulin lispro 100 unit/mL subcutaneous pen (Humalog KwikPen (U-100) Insulin) 6 unit subcut BID 01/02/23 [History Last Taken 07/16/23] midodrine 10 mg tablet 10 mg PO MOTUTHFR 01/02/23 [History Last Taken 07/16/23] nystatin 100,000 unit/gram topical powder 1 applic topical PRN PRN Skin Intervention 01/02/23 [History Last Taken Unknown] ondansetron HCl 4 mg tablet 4 mg PO Q6H PRN Nausea 01/02/23 [History Last Taken Unknown] pantoprazole 40 mg tablet,delayed release 40 mg PO DAILY 01/02/23 [History Last Taken 07/16/23] polyethylene glycol 3350 17 gram oral powder packet 17 g PO DAILY PRN constipation 01/02/23 [History Last Taken Unknown] prednisone 5 mg tablet 5 mg PO DAILY 01/02/23 [History Last Taken 07/16/23] promethazine 12.5 mg tablet 12.5 mg PO Q8H PRN Nausea 01/02/23 [History Last Taken 07/15/23] sennosides 8.6 mg-docusate sodium 50 mg capsule (Senna Plus) 1 tab-cap PO BID Constipation 01/02/23 [History Last Taken 07/16/23] sodium phosphates 19 gram-7 gram/118 mL enema (Fleet Enema) 118 ml SC DAILY PRN Constipation 01/02/23 [History Last Taken Unknown] tacrolimus 1 mg capsule, immediate-release (Prograf) 2 mg PO Q12H 01/02/23 [History Last Taken 07/16/23] trazodone 50 mg tablet 125 mg PO QHS 01/02/23 [History Last Taken 07/15/23] amlodipine 5 mg tablet (Norvasc) 5 mg PO DAILY 04/21/23 [History Last Taken 07/16/23] calcitriol 0.5 mcg capsule 1.25 mcg PO DAILY 04/21/23 [History Last Taken 07/15/23] gabapentin 100 mg capsule 100 mg PO MOTUTHFR PHANTOM PAIN 04/21/23 [History Last Taken 07/16/23] sevelamer HCl 800 mg tablet 2,400 mg PO TID 04/21/23 [History Last Taken 07/16/23] ammonium lactate 5 % lotion 1 applic topical QHS 07/16/23 [History Last Taken 07/15/23] benzoyl peroxide 5 % lotion 1 applic topical QHS 07/16/23 [History Last Taken 07/15/23] diphenhydramine HCl 25 mg tablet 25 mg PO DAILY 07/16/23 [History Last Taken 07/13/23] escitalopram oxalate 20 mg tablet 20 mg PO DAILY 07/16/23 [History Last Taken 07/16/23] guaifenesin 100 mg/5 mL oral liquid (Adult Tussin Chest Congestion) 200 mg PO Q4H PRN cough 07/16/23 [History Last Taken Unknown] levothyroxine 150 mcg tablet 150 mcg PO DAILY 07/16/23 [History Last Taken 07/16/23] melatonin 10 mg tablet 10 mg PO QHS 07/16/23 [History Last Taken 07/15/23] acetaminophen 500 mg tablet 1,000 mg (2 x 500 mg) PO Q8 #0 tabs 07/19/23 [Rx Last Taken Unknown] amoxicillin 500 mg-potassium clavulanate 125 mg tablet 1 tab PO QPM 7 days #7 tabs 07/19/23 [Rx Last Taken Unknown] linezolid 600 mg tablet 600 mg PO BID 7 days #14 tabs 07/19/23 [Rx Last Taken Unknown] oxycodone 10 mg tablet 10 mg PO Q4H PRN pain 2 days #12 tabs 07/19/23 [Rx Last Taken Unknown] Allergy/AdvReac Type Severity Reaction Status Date / Time No Known Allergies Allergy Verified 07/29/23 11:05 Family History Mother Hypertension Diabetes Father Hypertension Diabetes Surgical History (Updated 07/31/23 @ 13:31 by Barbara Trevino NP, COMPUTER ASSEMBLER-C) History of kidney transplant S/P colostomy S/P foot surgery S/P unilateral above knee amputation Social History housing: retirement Smoking Status: Never smoker alcohol intake: never substance use type: does not use ROS Constitutional Constitutional: Denies fever(s) Eyes Eyes: Reports systems reviewed and no addt'l complaints, except as documented ENT HEENT: Reports systems reviewed and no addt'l complaints, except as documented Cardiovascular Cardiovascular: Denies chest pain or dyspnea Respiratory/Chest Respiratory/Chest: Denies cough or dyspnea Gastrointestinal Gastrointestinal: Reports systems reviewed and no addt'l complaints, except as documented Genitourinary Genitourinary: Reports systems reviewed and no addt'l complaints, except as documented Musculoskeletal Musculoskeletal: Reports systems reviewed and no addt'l complaints, except as documented Integumentary Integumentary: Reports skin ulcer Neurologic Neurologic: Reports none Psychiatric Psychiatric: Reports none Endocrine Endocrinology: Reports systems reviewed and no addt'l complaints, except as documented Vital Signs Vital Signs Vital Signs: 07/29/23 10:30 Temperature 96.9 F L Temperature Source Temporal Pulse Rate 78 Respiratory Rate 20 H Blood Pressure 188/91 H Blood Pressure Mean 123 Blood Pressure Source Monitor Weight Weight: 302 lb 12.736 oz Body Mass Index (BMI) 41.1 Physical Exam Const alert, oriented x3 and no apparent distress General Appearance: cooperative HEENT normocephalic Head and Scalp: atraumatic Eyes General Eye: normal appearance of both eyes Neck full ROM Resp normal respiratory effort, normal air movement and clear to auscultation bilaterally Effort and Inspection: able to speak in complete sentences Cardio regular rate and regular rhythm GI soft to palpation and non-tender GI Narrative: Colostomy in place. Auscultation: normoactive bowel sounds Extremity Extremity Narrative: Left AKA. Skin Wound Narrative: Left ischial ulcer. There is a large divot with pink, non healed tissue in the base of the ulcer. The surrounding skin is macerated and is white from thickened scarring. It is difficult to get to the base of the ulcer due to the large divot. There is no bone exposed but it is palpated. There is large amount of build up from barrier cream in this area. No warmth or erythema. Neuro oriented x3 and moves all extremities Psych cooperative Attitude: calm Debridement Note Debridement Note Wound debrided: Ischial ulcer Laterality: Left Wound Grade/Stage: Stage IV Type of Debridement: Excisional debridement Anesthesia Used: 5% Lidocaine Gel Depth: Down to and including healthy tissue, in the subcutaneous layer and to muscle Percentage of wound debrided: 100 Instrument Used: - (Misonix aquasonic debrider) Tissue Removed: Non viable tissue and slough, into the muscle. Severity: Fat Layer Exposed Amount of bleeding with debridement: Mild Bleeding Controlled with: Compression and gauze Patient tolerated procedure: Patient tolerated procedure well Post-Debridement Measurements and Additional Note: Post-Debridement Measurements/Treatment MEHRAN - Nurse 1 - General Ulcer Assessment Start: 07/29/23 10:30 Freq: Status: Active Protocol: KATE Activity Type Activity Date Activity User E-sign Co-sign Detail Recorded Client Recorded Date Recorded By Document 07/29/23 10:30 DL Desktop 07/29/23 10:52 DL 07/29/23 10:30 WC - Today's Visit Information Type of service Initial Visit Arrival Mode Wheelchair Transfer Assistance Gerry Lift Transfer Assist (Other) x2 Patient Identification Verified (Name & Yes ) Patient Requires Transmission-Based No Precautions Finger Stick Blood Sugar(mg/dl) (if 113 indicated): Blood Sugar Stated by Patient Height and Weight Height 6 ft Weight 302 lb 12.736 oz Weight in Pounds 302.8 lbs Weight Measurement Method Estimated by Patient Body Mass Index (BMI) 41.1 BMI Classification Obese BSA - Naresh 2.54 Vital Signs Temperature (97.8 F-99.1 F) 96.9 F L Temperature Source Temporal Pulse Rate (60-100) 78 Pulse Location Monitor Respiratory Rate (12-18) 20 H Respiratory rate source Observation Blood Pressure (90/60-120/80) 188/91 H Blood Pressure Mean 123 Source Monitor Pain Scale: 0-10 Numeric Is Patient Pain Free? Yes Communication Assessment Preferred language Niuean Able to Read Yes Able to Write Yes Communication Tools None Right Hearing Abillity Normal Left Hearing Abillity Hard of Hearing Visual Assistive Devices Glasses Teaching Assessment Preferences Verbal,Written, Demonstration Barriers to Learning None Readiness To Learn Fair Willingness to Engage in Self Management Low Activies Readiness to Engage in Self Management Low Activities Anxiety Level Calm Cooperation Cooperative Perception Coherent Interest in Health Problem Uninterested Education Importance Denies Need Does Patient Smoke tobacco or other No substances Smoking Status Never smoker Is Patient Diabetic Yes Functional Assessment Recent Decline in Ability to Perform Denies Any Declines Culture/Episcopal/Packing Supervisor Cultural/Episcopal Needs that may affect No Treatment Plan Would you allow our hospital maintenance engineer oil field to No meet you for the purpose of spiritual/ emotional support? Packing Supervisor to contact place of quaker No WC - Nurse 1 - General Ulcer Measurement Start: 07/29/23 10:30 Freq: Status: Active Protocol: Activity Type Activity Date Activity User E-sign Co-sign Detail Recorded Client Recorded Date Recorded By Document 07/29/23 10:30 DL Desktop 07/29/23 10:52 DL 07/29/23 10:30 Wound Center Nurse 1 #1 L Ischial -Current Size (cm) - Length 1.3 -Current Size (cm) - Width 0.7 -Current Size (cm) - Depth 0.1 -Total Square Cm 0.91 -Photo Taken Yes -Classification - Thickness Full Thickness without Exposed Support Structure -Exudate Amt Small -Exudate Type Serosanguineous -Wound Margin Thickened -Granulation Amt Medium (34-66%) -Granulation Quality [place] -Necrosis Amt Medium (34-66%) -Necrotic Tissue Type Adherent Slough -Structure Exposed N/A -Texture (Chelsey-wound Skin Appearance) Scarring -Moisture (Chelsey-wound Skin Appearance) Dry/Scaly -Color (Chelsey-wound Skin Appearance) No Abnormality -Temperature (Chelsey-wound Skin No Abnormality Appearance) (Pt Warm) -Tenderness on Palpation (Chelsey-wound No Skin Appearance) -Ulcer Cleansing Soap and Water -Foul Odor after Cleansing No -Anesthetic Used 5% Lidocaine Gel WC - Nurse 2 - General Ulcer CM Notes Start: 07/29/23 10:30 Freq: Status: Active Protocol: Activity Type Activity Date Activity User E-sign Co-sign Detail Recorded Client Recorded Date Recorded By Document 07/29/23 11:16 JF Laptop 07/29/23 11:24 07/29/23 11:16 Wound Center Nurse 2 -Time 11:22 -Correct Patient Yes -Correct Side, Site, Position Yes -Correct Procedure Yes -Procedure Performed Yes -Type of Procedure Debridement -Clinical Debridement Muscle / Fascia -Tissue Removed Muscle,Fascia -Post Debridement (cm) - Length 3.7 -Post Debridement (cm) - Width 1.5 -Post Debridement (cm) - Depth 0.8 -Total Square (Post) (cm) 5.55 -Area of Debridement (cm) - Length 3.7 -Area of Debridement (cm) - Width 1.5 -Total Square (Area) (cm) 5.55 -Tunneling No -Undermining/Tunneling No -Circular Undermining No -Wound/Ulcer Outcome Not Healed -Ulcer Cleansing Rinsed/ Irrigated with Saline -Foul Odor after Cleansing No -Bioengineered Tissue No -Bleeding Controlled with Pressure -Treatment Response Procedure Tolerated Well -Offloading No -Debridement - Muscle / Fascia, 1st Yes 20sq cm Pain Scale: 0-10 Numeric Is Patient Pain Free? Yes MEHRAN - Nurse 3 - General Ulcer D/C NN Start: 07/29/23 10:30 Freq: Status: Active Protocol: Activity Type Activity Date Activity User E-sign Co-sign Detail Recorded Client Recorded Date Recorded By Document 01/22/24 11:30 DL Desktop 07/29/23 11:32 DL 07/29/23 11:30 Wound Care Center Nurse 3 #1 L Ischial -Ulcer Cleansing Rinsed/ Irrigated with Saline -Foul Odor after Cleansing No -Primary Dressing Applied Aquacel AG 4x4 -Primary Dressing Covered/Secured with Dry Gauze, Secured with Tape -Aquacel AG 4x4 1 Treatment Response Procedure Tolerated Well Pain Scale: 0-10 Numeric Is Patient Pain Free? Yes WC - Visit Discharge Discharge Condition Stable Ambulatory Status Wheelchair Transportation [facility] Facility Type Habilitation Worker Care Facility Orders Sent Yes Charges/Coding Visit Charges Office Visits / Consults: 15875 OV L4 Est 30min (25 modifier) Procedures Integumentary [id number]: [id number] Marycarmen musc/fascia 20 sq cm/< Assessment/Plan Assessment/Plan (1) 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, stage 4: CODE(S): L89.324 - Pressure ulcer of left buttock, stage 4 (2) History of diabetes mellitus: CODE(S): Z86.39 - Personal history of other endocrine, nutritional and metabolic disease (3) Chronic kidney disease with end stage renal failure on dialysis: CODE(S): N18.6 - End stage renal disease; Z99.2 - Dependence on renal dialysis PLAN: Plan Patient evaluated at the wound healing center today. Wound care - Aquacel-Ag placed into the base of the ulcer covered with gauze/ABD daily after washing with soap and water. Stop the barrier cream with zinc in it. He is not sure if he is on a low air loss air mattress. He is unsure how old the cushion in his wheelchair is. Encouraged off loading and not sitting or laying on the ulcer area for long periods of time. If he is up in a wheelchair, he needs to shift/reposition every 20 minutes. Encouraged increased protein intake to help with wound healing. He would benefit from protein supplementation. He states he has dialysis T-TH-Sat. He is to continue the antibiotics that were prescribed at discharge. Greater than 30 minutes spent with patient, educating, reviewing previous records and documenting.
== END 2023-08-07 23:59 | disposition home or self-care (01) ==
LOC: WC 10:19
PROVIDERS: PCP Internal Medicine; Referring Provider Nurse Practitioner Family; Visit Provider Nurse Practitioner Family
DX: L89.324 Pressure ulcer of left buttock, stage 4 (principal); G82.22 Paraplegia, incomplete; I13.2 Hypertensive heart and chronic kidney disease with heart failure and with stage 5 chronic kidney disease, or end stage renal disease; Z93.3 Colostomy status; Z99.2 Dependence on renal dialysis; I50.22 Chronic systolic (congestive) heart failure; E11.22 Type 2 diabetes mellitus with diabetic chronic kidney disease; N18.6 End stage renal disease; Z79.4 Long term (current) use of insulin; E78.5 Hyperlipidemia, unspecified; Z79.01 Long term (current) use of 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; Z79.890 Hormone replacement therapy; Z79.899 Other long term (current) drug therapy
CPT/HCPCS: 11043; 99214; G0463

== ENCOUNTER → 2023-07-29 | Outpatient (REF) | payer MEDICARE, MEDICAID, SELFPAY ==
[2023-07-29 08:58] LABS: Absolute Lymphocyte Count 1.91 X10^3/uL (0.83-4.51); Absolute Neutrophil Count 2.8 X10^3/uL (2.0-7.7); Basophil# 0.05 X10^3/uL; Basophil% 0.8 % (0-1); Eosinophil# 0.49 X10^3/uL; Eosinophils% 8.1 % (0-5); Hematocrit 33.7 % (40-54); Hemoglobin 10.3 g/dL (13.0-16.5); Lymphocyte # 1.91 X10^3/ul (0.83-4.51); Lymphocyte % 31.7 % (19-41); Mean Corp Hgb Conc 30.6 g/dL (32-36); Mean Corpuscular Hgb 29.4 pg (27.0-32.0); Mean Corpuscular Volume 96.3 fL (80-94); Mean Platelet Vol. 10.6 fl (6.2-12.0); Monocyte# 0.75 X10^3/uL; Monocyte% 12.5 % (0-10); NRBC Flagged by Analyzer 0 % (0-5); Neutrophil # 2.81 X10^3/uL (2.7-7.7); Neutrophil % 46.7 % (47-70); Platelet Count 151 K/mm3 (150-450); RBC Distribution Width CV 14.4 % (11.6-14.6); RBC Distribution Width SD 49.3 fl (35.1-43.9)
[2023-07-29 10:28] LABS: Anion Gap 10 (5-15); BUN 72 mg/dL (7-18); BUN/Creat Ratio 6.2 RATIO (10-20); Calcium,Total 9.1 mg/dL (8.5-10.1); Chloride 101 mmol/L (98-107); EST Glomerular Filtration Rate 5 mL/min (>60); Est Glom Filt Rate - Afr Amer 6 mL/min (>60); Glucose 106 mg/dL (74-106); Magnesium 2.9 mg/dL (1.6-2.6); Potassium 4.8 mmol/L (3.5-5.1); Sodium Level 137 mmol/L (136-145)
[2023-07-29 11:15] LABS: Hemoglobin A1c 6.2 % (3.8-5.6)
== END ==
LOC: OLS.SW 04:00
PROVIDERS: PCP Internal Medicine; Referring Provider Internal Medicine; Visit Provider Internal Medicine
DX: I50.9 Heart failure, unspecified (principal); E11.22 Type 2 diabetes mellitus with diabetic chronic kidney disease; N18.6 End stage renal disease
CPT/HCPCS: 36415; 80048; 83036; 83735; 84443; 85025

== ENCOUNTER 2023-08-05 17:35 | Observation (INO) | payer MEDICARE, MEDICAID, SELFPAY ==
[2023-08-05] VITALS (7 sets, daily range): BP systolic 155–175; BP diastolic 50–115; PULSE 71–76; RESP 14–22; TEMP 36.2; O2SAT 99–100; BMI 42.4
--- NOTE | 2023-08-05 18:33 | RAD_ITS ---
STUDY: X-RAY CHEST REASON FOR EXAM: Male, 37 years old. Chest pain TECHNIQUE: Single AP portable view of the chest. COMPARISON: July 16, 2023 chest x-ray FINDINGS: Interstitial markings are mildly prominent. There is mild peribronchial thickening. There is no demonstrated pleural abnormality. There is moderate cardiac enlargement. There is a persistent mildly prominent appearance of the mediastinum, due to vascular ectasia and mild distention of the pulmonary artery.. Normal visualized pulmonary arteries. Normal visualized aortic arch and descending thoracic aorta. There are diffuse degenerative changes of the visualized thoracic spine. Normal visualized ribs, clavicles, and shoulders. There is no demonstrated abnormality of the visualized soft tissue structures of the upper abdomen. RAD/Chest 1 View (Portable) IMPRESSION: Cardiomegaly. Persistent prominent appearance of the pulmonary artery which can be associated with pulmonary artery hypertension. Consider overall pattern of mild vascular congestion. Electronically Signed: Gris Santoyo MD at 19:21 EST Reading Location ID and State: [facility] [place] Tel , Service support ,
[2023-08-05 18:47] LABS: Absolute Lymphocyte Count 1.73 X10^3/uL (0.83-4.51); Basophil# 0.05 X10^3/uL; Basophil% 0.7 % (0-1); Eosinophil# 0.36 X10^3/uL; Eosinophils% 4.7 % (0-5); Hematocrit 35.6 % (40-54); Hemoglobin 11.2 g/dL (13.0-16.5); Lymphocyte # 1.73 X10^3/ul (0.83-4.51); Lymphocyte % 22.8 % (19-41); Mean Corp Hgb Conc 31.5 g/dL (32-36); Mean Corpuscular Hgb 29.9 pg (27.0-32.0); Mean Corpuscular Volume 94.9 fL (80-94); Mean Platelet Vol. 10.3 fl (6.2-12.0); Monocyte# 0.47 X10^3/uL; Monocyte% 6.2 % (0-10); NRBC Flagged by Analyzer 0 % (0-5); Neutrophil # 4.96 X10^3/uL (2.7-7.7); Neutrophil % 65.3 % (47-70); Platelet Count 206 K/mm3 (150-450); RBC Distribution Width SD 48.5 fl (35.1-43.9); Red Blood Count 3.75 M/mm3 (4.6-6.2); White Blood Count 7.6 K/mm3 (4.4-11.0)
--- NOTE | 2023-08-05 19:20 | ED.VIS.CHEST ---
HPI History of Present Illness Chief Complaint: Chest Pain Informant: patient Onset/Context/Timing Onset: Today and Hours Activity at onset: gradual Timing: Continuous Quality: Positive for Dull Location: Right Parasternal Current Severity: Mild Maximum Severity: Mild Worsened By: Nothing Relieved By: Nothing Associated Symptoms: Positive for Cough; Negative for Nausea, Vomiting, Diaphoresis, Dyspnea, Fever, Lightheadedness, Acid Reflux or Palpitations Narrative Narrative: 37-year-old male extensive past medical history including chronic kidney disease which she is dialyzed 4 times a week, anemia, diabetes, CHF, prior PE but no longer on blood thinners. States that he had right-sided chest discomfort since around 3 AM this morning. Said it sharp. Not associated with exertion. Also at times says it is a tightness. No hemoptysis. No fever. Has had no recent hospitalization. No leg swelling. Prior Similar Symptoms: No Recent Illness/Hospitalization: No CVD Risk Factors: Positive for Diabetes; Negative for Hypertension PE Risk Factors: Positive for Prior DVT or PE; Negative for Recent Travel/Surgery, Cancer or OCP + Smoking + >/=35 TAD Risk Factors: Negative for Marfan's Syndrome [facility] Medical History Acute kidney failure Acute on chronic systolic (congestive) heart failure Acute pulmonary edema Acute respiratory failure with hypoxia Anemia in chronic kidney disease Dependence on renal dialysis Depression End stage renal disease Gastro-esophageal reflux disease without esophagitis Hyperkalemia Hyperlipemia Hyperosmolality and hypernatremia Hypertensive heart and chronic kidney disease with heart failure and stage 1 through stage 4 chronic kidney disease, or unspecified chronic kidney disease Hypomagnesemia Hypothyroidism Kidney transplant failure Neurogenic bowel Neuromuscular dysfunction of bladder, unspecified Other acute osteomyelitis, left ankle and foot Other pericardial effusion (noninflammatory) Other pulmonary embolism without acute cor pulmonale Paraplegia, incomplete Pericardial effusion (noninflammatory) Pneumonia Pressure ulcer of left heel, unspecified stage Pyrexia SIRS (systemic inflammatory response syndrome) Type 2 diabetes mellitus with diabetic chronic kidney disease Home Medications acetaminophen 325 mg tablet 650 mg PO Q4H PRN PAIN/FEVER 01/02/23 [History Last Taken 04/21/23] apixaban 5 mg tablet (Eliquis) 5 mg PO BID 01/02/23 [History Last Taken 07/16/23] ascorbic acid (vitamin C) 500 mg tablet 500 mg PO DAILY 01/02/23 [History Last Taken 07/16/23] atorvastatin 40 mg tablet 40 mg PO QHS 01/02/23 [History Last Taken 07/15/23] bisacodyl 10 mg rectal suppository 10 mg MS DAILY PRN Constipation 01/02/23 [History Last Taken Unknown] carvedilol 12.5 mg tablet 12.5 mg PO BID 01/02/23 [History Last Taken 07/16/23] cetylpyridinium chloride 1 yunior mucous membrane Q3H PRN Sore Throat 01/02/23 [History Last Taken Unknown] clotrimazole-betamethasone 1 %-0.05 % topical cream 1 applic topical QHS 01/02/23 [History Last Taken 07/15/23] dextrose 40 % oral gel (Glucose Gel) 15 g PO Q15M PRN Hypoglycemia 01/02/23 [History Last Taken Unknown] famotidine 20 mg tablet 20 mg PO DAILY 01/02/23 [History Last Taken Unknown] hydralazine 25 mg tablet 25 mg PO Q8 01/02/23 [History Last Taken 07/16/23] insulin glargine 100 unit/mL (3 mL) subcutaneous pen (Lantus Solostar U-100 Insulin) 24 unit subcut QHS 01/02/23 [History Last Taken 07/16/23] insulin lispro 100 unit/mL subcutaneous pen (Humalog KwikPen (U-100) Insulin) 6 unit subcut BID 01/02/23 [History Last Taken 07/16/23] midodrine 10 mg tablet 10 mg PO MOTUTHFR 01/02/23 [History Last Taken 07/16/23] nystatin 100,000 unit/gram topical powder 1 applic topical PRN PRN Skin Intervention 01/02/23 [History Last Taken Unknown] ondansetron HCl 4 mg tablet 4 mg PO Q6H PRN Nausea 01/02/23 [History Last Taken Unknown] pantoprazole 40 mg tablet,delayed release 40 mg PO DAILY 01/02/23 [History Last Taken 07/16/23] polyethylene glycol 3350 17 gram oral powder packet 17 g PO DAILY PRN constipation 01/02/23 [History Last Taken Unknown] prednisone 5 mg tablet 5 mg PO DAILY 01/02/23 [History Last Taken 07/16/23] promethazine 12.5 mg tablet 12.5 mg PO Q8H PRN Nausea 01/02/23 [History Last Taken 07/15/23] sennosides 8.6 mg-docusate sodium 50 mg capsule (Senna Plus) 1 tab-cap PO BID Constipation 01/02/23 [History Last Taken 07/16/23] sodium phosphates 19 gram-7 gram/118 mL enema (Fleet Enema) 118 ml MS DAILY PRN Constipation 01/02/23 [History Last Taken Unknown] tacrolimus 1 mg capsule, immediate-release (Prograf) 2 mg PO Q12H 01/02/23 [History Last Taken 07/16/23] trazodone 50 mg tablet 125 mg PO QHS 01/02/23 [History Last Taken 07/15/23] amlodipine 5 mg tablet (Norvasc) 5 mg PO DAILY 04/21/23 [History Last Taken 07/16/23] calcitriol 0.5 mcg capsule 1.25 mcg PO DAILY 04/21/23 [History Last Taken 07/15/23] gabapentin 100 mg capsule 100 mg PO MOTUTHFR PHANTOM PAIN 04/21/23 [History Last Taken 07/16/23] sevelamer HCl 800 mg tablet 2,400 mg PO TID 04/21/23 [History Last Taken 07/16/23] ammonium lactate 5 % lotion 1 applic topical QHS 07/16/23 [History Last Taken 07/15/23] benzoyl peroxide 5 % lotion 1 applic topical QHS 07/16/23 [History Last Taken 07/15/23] diphenhydramine HCl 25 mg tablet 25 mg PO DAILY 07/16/23 [History Last Taken 07/13/23] escitalopram oxalate 20 mg tablet 20 mg PO DAILY 07/16/23 [History Last Taken 07/16/23] guaifenesin 100 mg/5 mL oral liquid (Adult Tussin Chest Congestion) 200 mg PO Q4H PRN cough 07/16/23 [History Last Taken Unknown] levothyroxine 150 mcg tablet 150 mcg PO DAILY 07/16/23 [History Last Taken 07/16/23] melatonin 10 mg tablet 10 mg PO QHS 07/16/23 [History Last Taken 07/15/23] acetaminophen 500 mg tablet 1,000 mg (2 x 500 mg) PO Q8 #0 tabs 01/12/24 [Rx Last Taken Unknown] amoxicillin 500 mg-potassium clavulanate 125 mg tablet 1 tab PO QPM 7 days #7 tabs 07/19/23 [Rx Last Taken Unknown] linezolid 600 mg tablet 600 mg PO BID 7 days #14 tabs 07/19/23 [Rx Last Taken Unknown] oxycodone 10 mg tablet 10 mg PO Q4H PRN pain 2 days #12 tabs 07/19/23 [Rx Last Taken Unknown] Allergy/AdvReac Type Severity Reaction Status Date / Time No Known Allergies Allergy Verified 08/05/23 17:42 Family History Mother Hypertension Diabetes Father Hypertension Diabetes Surgical History History of kidney transplant S/P colostomy S/P foot surgery S/P unilateral above knee amputation Social History housing: senior living Smoking Status: Never smoker alcohol intake: never substance use type: does not use ROS ROS ED ROS Narrative Right-sided chest pain. Review of Systems ROS Unobtainable: Denies due to encephalopathy Constitutional Constitutional ED: Denies chills or fever(s) Eyes Eyes: Reports none ENT ENT ED: Denies ear pain Cardiovascular Cardiovascular: Reports as per HPI and chest pain; Denies palpitations or racing heartbeat Respiratory/Chest Respiratory/Chest: Denies cough or dyspnea Gastrointestinal Gastrointestinal: Denies abdominal pain, constipation, diarrhea, melena, nausea or vomiting Genitourinary Genitourinary ED: Denies dysuria or hematuria Musculoskeletal Musculoskeletal: Denies arthralgias Integumentary Denies abscess Neurologic Neurologic: Denies headache(s) Psychiatric Psychiatric: Denies anxiety Endocrine Endocrinology: Denies cold intolerance Hematologic/Lymphatic Hematologic/Lymphatic: Denies easy bleeding, easy bruising or lymphadenopathy Allergic/Immunologic Allergic/Immunologic ED: Denies mouth swelling, tongue swelling or urticaria EXAM Physical Exam Narrative Exam Narrative: Well-appearing 37-year-old male. Vital signs stable afebrile. Pulse ox 100% on 4 L. HEENT exam unremarkable. Neck nontender. No JVD. Lungs clear to auscultation bilaterally. Heart regular rhythm no murmur rate about 70. Chest wall nontender. Abdomen soft nontender. Moving all 4 extremities. He has a left below the knee amputation about midway down his left lower leg. Stump is in good condition. No ulceration. Right calf is nontender without edema or cords. Back nontender. Neurologically is awake and alert. Answering questions following commands. Const Vital Signs: 08/05/23 17:39 08/05/23 17:43 08/05/23 19:25 Temperature 97.1 F L Temperature Source Temporal Pulse Rate 72 76 Respiratory Rate 16 16 Respiratory Effort Normal Non-Labored Respiratory Pattern Blood Pressure 165/97 H 165/97 H Blood Pressure Mean 119 119 Pulse Ox 100 100 Oxygen Delivery Method Nasal Cannula Nasal Cannula Oxygen Flow Rate (L/min) 4 4 08/05/23 19:49 08/05/23 20:20 08/05/23 20:20 Temperature Temperature Source Pulse Rate 72 71 Respiratory Rate 17 22 H Respiratory Effort Respiratory Pattern Normal Blood Pressure Blood Pressure Mean Pulse Ox 100 100 Oxygen Delivery Method Nasal Cannula Nasal Cannula Oxygen Flow Rate (L/min) 4 2 08/05/23 20:51 08/05/23 22:19 08/05/23 23:18 Temperature Temperature Source Pulse Rate 71 75 72 Respiratory Rate 14 18 Respiratory Effort Respiratory Pattern Blood Pressure 175/115 H 161/50 H 155/56 H Blood Pressure Mean 135 87 89 Pulse Ox 99 100 Oxygen Delivery Method Nasal Cannula Nasal Cannula Oxygen Flow Rate (L/min) 2 2 Positive well nourished and well developed; Negative for cachectic, contractures or unkempt General Appearance ED: well developed and NAD; Negative for unkempt, cachectic, contractures or pallor Nutritional Appearance: Negative for cachectic HEENT Reports moist mucous membranes; Denies dry mucous membranes normocephalic and atraumatic; Negative for trauma or tenderness Mouth ED: No dry mucous membranes Mouth: No dry mucous membranes Eyes PERRL and EOMs intact bilaterally General Eye ED: Negative for pale conjunctiva, scleral icterus or other Neck no lymphadenopathy, supple and no JVD General: Negative for tenderness Chest Wall inspection of chest normal and palpation of chest normal Chest: Negative for tenderness or other Resp normal respiratory effort and clear to auscultation bilaterally Effort and Inspection: Negative for respiratory distress Auscultation: Negative for rales, rhonchi or wheezes Cardio regular rate, regular rhythm, S1 normal heart sound, S2 normal heart sound and no murmurs Rate: Negative for bradycardia or tachycardic Rhythm: Negative for abnormal rhythm GI normal to inspection, nondistended, normoactive bowel sounds, soft to palpation, non-tender, non-distended and no masses Auscultation: Negative for hyperactive bowel sounds Palpation: Negative for splenomegaly or mass Back/Spine no CVA tenderness and no thoracic nor lumbar tenderness General Back: Negative for CVA tenderness or other Cervical Spine: Negative for cervical spine tenderness Extremity normal to inspection General Extremety ED: Negative for edema, pulses abnormal or tenderness General Extremity: Negative for edema or pulses abnormal Neuro oriented x3 and CN's II-XII intact bilaterally Sensorium / Orientation: awake, alert, oriented to person, oriented to place and oriented to time; Negative for confused or lethargic Motor Exam: strength 5/5 throughout Psych mental status grossly normal Appearance: Negative for unkempt Attitude: No agitated Mood & Affect: Negative for depressed, anxious, tearful or other Skin no rashes or lesions noted and no wounds General Skin Exam: Negative for jaundice or pallor Rashes: No rashes noted Trauma: Negative for abrasion MDM MDM MDM Narrative Medical decision making narrative: 37-year-old male with extensive past medical history with right-sided chest pain. Not reproducible. Clinically I doubt cardiac. Has had a prior PE that the possibility versus other etiologies. Cardiac workup with a D-dimer chest x-ray and EKG are pending. Repeat exam patient is resting comfortably at 915. He is looking at something on his iPhone. He is receiving treatment for hyperkalemia including aerosols, calcium gluconate and insulin. We discussed his test results and need for CTA of his chest. Multiple repeat exams patient is resting comfortably doing well at 11:30 PM. I will get a second repeat potassium level 2 hours from the last. If it continues to improve and he is looking well I am comfortable with him being discharged back to the extended care facility. He is scheduled for dialysis on Saturday which is tomorrow. History & Record Review Discussion w/independent historian: Patient Additional record(s) reviewed:: Prior inpatient record, Prior outpatient record, Prior ED visit and Prior labs Lab Data Attestation: I reviewed the patient's lab results. Lab results narrative: CBC white count 7.6. H&H 11.2 and 35 which is his baseline chronic anemia. Platelets 206. D-dimer is elevated 0.57. Troponin normal at 16. 2-hour troponin same 16. BMP shows sodium 132. Potassium is 7.1 he has a dialysis patient was not dialyzed today. His gap is 7. BUN of 86 creatinine 13.4 again dialysis patient. Glucose 127. COVID RSV negative. Flu positive. Labs: Laboratory Results - last 24 hr 08/05/23 08/05/23 08/05/23 18:21 21:00 22:24 WBC 7.6 RBC 3.75 L Hgb 11.2 L Hct 35.6 L MCV 94.9 H MCH 29.9 MCHC 31.5 L RDW Std Deviation 48.5 H RDW Coeff of Shanta 14.0 Plt Count 206 MPV 10.3 Immature Gran % (Auto) 0.300 Neut % (Auto) 65.3 Lymph % (Auto) 22.8 [place] % (Auto) 6.2 Eos % (Auto) 4.7 Baso % (Auto) 0.7 Absolute Neuts (auto) 5.0 Absolute Lymphs (auto) 1.73 Nucleated RBC % 0 D-Dimer Quant (PE/DVT) 0.57 H* Sodium 132 L Potassium 7.1 H* 6.2 H* Chloride 97 L Carbon Dioxide 28.0 Anion Gap 7 BUN 86 H Creatinine 13.40 H* Estim Creat Clear Calc 11.25 Est GFR (MDRD) Af Amer 5 L Est GFR (MDRD) Non-Af 5 L BUN/Creatinine Ratio 6.4 L Glucose 127 H Calcium 9.1 Troponin I High Sens 16 16 Radiography Chest X-Ray - ED: 1 View, Read by ED Physician, Lungs, Mediastinum, Bony Structures, No Acute Disease, Chronic Changes and Cardiomegaly Diagnostic Testing: Clinical Impression(s) from Imaging Studies Chest X-Ray 08/05/23 18:33 IMPRESSION: Cardiomegaly. Persistent prominent appearance of the pulmonary artery which can be associated with pulmonary artery hypertension. Consider overall pattern of mild vascular congestion. Electronically Signed: Gris Santoyo MD at 19:21 EST , Chest CTA 08/05/23 21:12 IMPRESSION: No pulmonary embolism. Cardiomegaly coronary artery calcification. Mild enlargement of the pulmonary artery which can be associated pulmonary arterial hypertension. Nonspecific subtle air trapping in the lungs which may represent possible minimal edema and/or potentially respiratory bronchiolitis or patient with asthma. There is a persistent focus of left lower lobe atelectasis or potentially a small focus of consolidation or pneumonia. Small hiatal hernia. Splenomegaly. Hepatomegaly. Electronically Signed: Gris Santoyo MD at 22:40 EST , Chest x-ray, portable, single view shows cardiomegaly. Headache is chronic. No acute pneumonia. No effusions. Interpreted by myself. Rhythm Strip Rhythm Strip: Sinus Rhythm Rate: 72 Ectopy: None EKG Initial EKG: Attestation: I personally reviewed and interpreted this EKG as follows: Interpretation: Sinus Rhythm Comments: Normal sinus rhythm rate of 72 no acute signs of OR or ischemia. Discharge Plan Triage Chief Complaint: Chest Pain ED Provider: Ayo Foss Dx/Rx/DC Orders Clinical Impression: Influenza, 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 disease, Acute hyperkalemia, Atypical chest pain, History of diabetes mellitus Instructions: ED Influenza (Adult), ED Hyperkalemia Prescriptions: No Action atorvastatin 40 mg Tablet 40 mg PO QHS acetaminophen 325 mg Tablet 650 mg PO Q4H PRN (Reason: PAIN/FEVER) carvedilol 12.5 mg Tablet 12.5 mg PO BID Rx Instructions: must administer with a meal/food ascorbic acid (vitamin C) 500 mg Tablet 500 mg PO DAILY bisacodyl 10 mg Suppository 10 mg MS DAILY PRN (Reason: Constipation) dextrose [Glucose Gel] 40 % Gel 15 g PO Q15M PRN (Reason: Hypoglycemia) Rx Instructions: until symptoms of low blood sugar are controlled famotidine 20 mg Tablet 20 mg PO DAILY Fleet Enema 19-7 gram/118 mL Enema 118 ml MS DAILY PRN (Reason: Constipation) cetylpyridinium chloride Lozenge 1 yunior MUCOUS MEMBRANE Q3H PRN (Reason: Sore Throat) insulin lispro [Humalog KwikPen Insulin] 100 unit/mL Insulin Pen 6 unit SUBCUT BID Eliquis 5 mg Tablet 5 mg PO BID trazodone 50 mg Tablet 125 mg PO QHS prednisone 5 mg Tablet 5 mg PO DAILY hydralazine 25 mg Tablet 25 mg PO Q8 pantoprazole 40 mg Tablet,Delayed Release (Dr/Ec) 40 mg PO DAILY clotrimazole-betamethasone 1-0.05 % Cream 1 applic TOPICAL QHS tacrolimus [Prograf] 1 mg Capsule 2 mg PO Q12H midodrine 10 mg Tablet 10 mg PO MOTUTHFR Rx Instructions: TAKE 1 TAB BY MOUTH EVERY SATURDAY, SATURDAY, SATURDAY, AND SATURDAY for hypotension prior to dialysis Hold BP >130/90 insulin glargine [Lantus Solostar U-100 Insulin] 100 unit/mL (3 mL) Insulin Pen 24 unit SUBCUT QHS polyethylene glycol 3350 17 gram Powder In Packet 17 g PO DAILY PRN (Reason: constipation) promethazine 12.5 mg Tablet 12.5 mg PO Q8H PRN (Reason: Nausea) ondansetron HCl 4 mg Tablet 4 mg PO Q6H PRN (Reason: Nausea) nystatin 100,000 unit/gram Powder 1 applic TOPICAL PRN PRN (Reason: Skin Intervention) Senna Plus 8.6-50 mg Capsule 1 tab-cap PO BID calcitriol 0.5 mcg capsule 1.25 mcg PO DAILY Patient Comments: MAR STATES THAT PT TAKES IN THE MORNING gabapentin 100 mg capsule 100 mg PO MOTUTHFR amlodipine [Norvasc] 5 mg tablet 5 mg PO DAILY sevelamer HCl 800 mg tablet 2,400 mg PO TID Rx Instructions: must administer with a meal/food ammonium lactate 5 % lotion 1 applic topical QHS benzoyl peroxide 5 % lotion 1 applic topical QHS escitalopram oxalate 20 mg tablet 20 mg PO DAILY levothyroxine 150 mcg tablet 150 mcg PO DAILY Patient Comments: MAR STATES PT TAKES IN THE AM melatonin 10 mg tablet 10 mg PO QHS diphenhydramine HCl 25 mg tablet 25 mg PO DAILY guaifenesin [Adult Tussin Chest Congestion] 100 mg/5 mL liquid 200 mg PO Q4H PRN (Reason: cough) acetaminophen 500 mg Tablet 1,000 mg PO Q8 Qty: 0 0RF linezolid 600 mg Tablet 600 mg PO BID 7 Days Qty: 14 0RF amoxicillin-pot clavulanate 500-125 mg Tablet 1 tab PO QPM 7 Days Qty: 7 0RF oxycodone 10 mg tablet 10 mg PO Q4H PRN (Reason: pain) 2 Days Qty: 12 0RF Primary Care Provider: Vanessa Hutchins Referrals: Vanessa Hutchins MD [Primary Care Provider] - Activity Restrictions/Additional Instructions: Make sure you go to dialysis on Saturday. Your initial potassium tonight was 7.2 we treated it and it is coming down. Tylenol for any fevers you have influenza. Plenty of fluids and rest. Disposition Disposition: Home, Self Care
[2023-08-05 19:56] LABS: Anion Gap 7 (5-15); BUN 86 mg/dL (7-18); BUN/Creat Ratio 6.4 RATIO (10-20); Calcium,Total 9.1 mg/dL (8.5-10.1); Chloride 97 mmol/L (98-107); EST Glomerular Filtration Rate 5 mL/min (>60); Est Glom Filt Rate - Afr Amer 5 mL/min (>60); Estimated Creatinine Clearance 11.25 ml/min; Glucose 127 mg/dL (74-106); Potassium 7.1 mmol/L (3.5-5.1); Sodium Level 132 mmol/L (136-145); Troponin-I HS (w/2H Reflex) 16 pg/mL (3.0-78.0)
[2023-08-05 20:04] LABS: D-Dimer Quantitative (DVT/PE) 0.57 FEU/ug/m (0.27-0.49)
[2023-08-05] MEDS: Albuterol 2.5 MG/3 ML VIAL.NEB. 10 MG INHALATION (20:20)
[2023-08-05 20:41] LABS: Reflex Troponin-HS? (from REC) Y
[2023-08-05] MEDS: Sodium Bicarbonate 150 MEQ in Dextrose 5%-Water (1000mL Bag) 1,000 ML 250 MEQ IV (20:47)
[2023-08-05] MEDS: Calcium Gluconate IV 3 GM in Syringe 1 EACH IV (20:47)
[2023-08-05] MEDS: Insulin Lispro 10 UNIT in Syringe 0 ML 6 UNIT IV (20:47)
--- NOTE | 2023-08-05 21:12 | CT_ITS ---
STUDY: CTA CHEST REASON FOR EXAM: Male, 37 years old. Cp and elevated d-dimer RADIATION DOSAGE (If Supplied By Facility): CTDIvol = ( 17.94 ) mGy, DLP = ( 563.60 ) mGycm TECHNIQUE: The examination was performed with the intravenous administration of IV 100mL Isovue-370. Post-processing of the angiographic images was performed, with multiplanar reformation and 3D reconstruction. Individualized dose optimization techniques were used for this CT. COMPARISON: July 16, 2023 CT angiogram chest FINDINGS: Normal enhancement of the main pulmonary artery and right and left pulmonary arteries. Normal enhancement of the bilateral peripheral pulmonary arteries. There is no demonstrated pulmonary embolism. There is a prominent appearance of the pulmonary arteries which is suggestive possible pulmonary arterial hypertension. Normal thoracic aorta and visualized great vessels. There is no demonstrated aortic dissection. There is moderate cardiac enlargement, there are coronary artery calcifications. Normal mediastinum. Normal hilar regions. Normal visualized trachea and bronchi. There is a pattern of subtle air trapping in the lungs there is a persistent small focus of left lower lobe atelectasis and or potentially chronic infiltrate similar to the prior study July 16, 2023. Normal pleura. Normal chest wall structures. Normal osseous structures. There is mild to moderate splenomegaly. The liver is enlarged. There is a small hiatal hernia. CT/CTA Chest W/WO Contrast IMPRESSION: No pulmonary embolism. Cardiomegaly coronary artery calcification. Mild enlargement of the pulmonary artery which can be associated pulmonary arterial hypertension. Nonspecific subtle air trapping in the lungs which may represent possible minimal edema and/or potentially respiratory bronchiolitis or patient with asthma. There is a persistent focus of left lower lobe atelectasis or potentially a small focus of consolidation or pneumonia. Small hiatal hernia. Splenomegaly. Hepatomegaly. Electronically Signed: Gris Santoyo MD at 22:40 EST ,
[2023-08-05 21:33] LABS: Troponin-I HS 16 pg/mL (3.0-78.0)
[2023-08-05 22:51] LABS: Potassium 6.2 mmol/L (3.5-5.1)
[2023-08-06] VITALS (27 sets, daily range): BP systolic 130–297; BP diastolic 58–88; PULSE 70–91; RESP 12–20; TEMP 36.3–36.8; O2SAT 95–100; BMI 40.1; BMI 39.1
--- NOTE | 2023-08-06 00:19 | ED.RN ---
Daily [facility]AN[facility] at [facility] [phone]
[2023-08-06 00:50] LABS: Potassium 6.5 mmol/L (3.5-5.1)
--- NOTE | 2023-08-06 01:49 | PCM.HP.STD ---
HPI - General General Date of Admission: 08/06/23 Date of Service: 08/06/23 Chief Complaint: cough/malaise HPI Narrative CHINA GUILLEN, is a 37 M who presented to the emergency department at [facility] on 08/05/2023 complaining of generalized malaise, chest pain, and fatigue. Patient states his symptoms started on 08/04/2023 with mild cough, headache, nasal congestion, mild nausea, decreased appetite, myalgias, and fever. He declined dialysis on the making his last dialysis being on the previous Saturday as he is dialyzed on Saturday, Saturday, , and Saturday. Other than the above symptoms, his only other symptom is phantom limb pain from his previous left lower extremity BKA. Vital signs on presentation showed temperature of 97.1, heart rate 72, blood pressure 165/97, respiratory rate 16 and oxygen saturations are 100% on 2 L nasal cannula. CBC is unremarkable. Chemistry panel showed hyponatremia the sodium of 132, hyperkalemia with a potassium of 7.1, BUN of 86 and a serum creatinine of 13.4, glucose of 127 and a normal troponin x 2. D-dimer was obtained and found to be mildly elevated at 0.57. EKG was unremarkable. Chest x-ray is unremarkable. CTA showed no pulmonary embolism, cardiomegaly with coronary artery calcification, mild enlargement of the pulmonary artery associated with pulmonary hypertension and nonspecific subtle air trapping in the lungs suspicious for likely edema, small hiatal hernia, splenomegaly, hepatomegaly. In the emergency department he was treated with hyperkalemia regimen for intracellular shift and his initial potassium came back lower however his third potassium trended up as I suspect the intracellular shift was transient. He was then given Kayexalate and request for admission was made for dialysis. Case was discussed with nephrology prior to admission. Also given the fact that the patient has only had influenza symptoms for about 24 hours we did give him a 30 mg dose of Tamiflu and will continue per dosing recommendations for dialysis. [facility] Medical History Acute kidney failure Acute on chronic systolic (congestive) heart failure Acute pulmonary edema Acute respiratory failure with hypoxia Anemia in chronic kidney disease Dependence on renal dialysis Depression End stage renal disease Gastro-esophageal reflux disease without esophagitis Hyperkalemia Hyperlipemia Hyperosmolality and hypernatremia Hypertensive heart and chronic kidney disease with heart failure and stage 1 through stage 4 chronic kidney disease, or unspecified chronic kidney disease Hypomagnesemia Hypothyroidism Kidney transplant failure Neurogenic bowel Neuromuscular dysfunction of bladder, unspecified Other acute osteomyelitis, left ankle and foot Other pericardial effusion (noninflammatory) Other pulmonary embolism without acute cor pulmonale Paraplegia, incomplete Pericardial effusion (noninflammatory) Pneumonia Pressure ulcer of left heel, unspecified stage Pyrexia SIRS (systemic inflammatory response syndrome) Type 2 diabetes mellitus with diabetic chronic kidney disease Home Medications acetaminophen 325 mg tablet 650 mg PO Q4H PRN PAIN/FEVER 01/02/23 [History Last Taken 04/21/23] apixaban 5 mg tablet (Eliquis) 5 mg PO BID 01/02/23 [History Last Taken 07/16/23] ascorbic acid (vitamin C) 500 mg tablet 500 mg PO DAILY 01/02/23 [History Last Taken 07/16/23] atorvastatin 40 mg tablet 40 mg PO QHS 01/02/23 [History Last Taken 07/15/23] bisacodyl 10 mg rectal suppository 10 mg NC DAILY PRN Constipation 01/02/23 [History Last Taken Unknown] carvedilol 12.5 mg tablet 12.5 mg PO BID 01/02/23 [History Last Taken 07/16/23] cetylpyridinium chloride 1 yunior mucous membrane Q3H PRN Sore Throat 01/02/23 [History Last Taken Unknown] clotrimazole-betamethasone 1 %-0.05 % topical cream 1 applic topical QHS 01/02/23 [History Last Taken 07/15/23] dextrose 40 % oral gel (Glucose Gel) 15 g PO Q15M PRN Hypoglycemia 01/02/23 [History Last Taken Unknown] hydralazine 25 mg tablet 25 mg PO Q8 01/02/23 [History Last Taken 07/16/23] insulin glargine 100 unit/mL (3 mL) subcutaneous pen (Lantus Solostar U-100 Insulin) 24 unit subcut QHS 01/02/23 [History Last Taken 07/16/23] insulin lispro 100 unit/mL subcutaneous pen (Humalog KwikPen (U-100) Insulin) 6 unit subcut BID 01/02/23 [History Last Taken 07/16/23] midodrine 10 mg tablet 10 mg PO MOTUTHFR 01/02/23 [History Last Taken 07/16/23] ondansetron HCl 4 mg tablet 4 mg PO Q6H PRN Nausea 01/02/23 [History Last Taken Unknown] pantoprazole 40 mg tablet,delayed release 40 mg PO DAILY 01/02/23 [History Last Taken 07/16/23] polyethylene glycol 3350 17 gram oral powder packet 17 g PO DAILY PRN constipation 01/02/23 [History Last Taken Unknown] prednisone 5 mg tablet 5 mg PO DAILY 01/02/23 [History Last Taken 07/16/23] promethazine 12.5 mg tablet 12.5 mg PO Q8H PRN Nausea 01/02/23 [History Last Taken 07/15/23] sennosides 8.6 mg-docusate sodium 50 mg capsule (Senna Plus) 1 tab-cap PO BID Constipation 01/02/23 [History Last Taken 07/16/23] sodium phosphates 19 gram-7 gram/118 mL enema (Fleet Enema) 118 ml NC DAILY PRN Constipation 01/02/23 [History Last Taken Unknown] tacrolimus 1 mg capsule, immediate-release (Prograf) 2 mg PO Q12H 01/02/23 [History Last Taken 07/16/23] trazodone 50 mg tablet 125 mg PO QHS 01/02/23 [History Last Taken 07/15/23] calcitriol 0.5 mcg capsule 1.25 mcg PO DAILY 04/21/23 [History Last Taken 07/15/23] gabapentin 100 mg capsule 100 mg PO MOTUTHFR PHANTOM PAIN 04/21/23 [History Last Taken 07/16/23] sevelamer HCl 800 mg tablet 2,400 mg PO TID 04/21/23 [History Last Taken 07/16/23] diphenhydramine HCl 25 mg tablet 25 mg PO DAILY PRN allergy symptoms 07/16/23 [History Last Taken 07/13/23] escitalopram oxalate 20 mg tablet 20 mg PO DAILY 07/16/23 [History Last Taken 07/16/23] guaifenesin 100 mg/5 mL oral liquid (Adult Tussin Chest Congestion) 200 mg PO Q4H PRN cough 07/16/23 [History Last Taken Unknown] levothyroxine 150 mcg tablet 150 mcg PO DAILY 07/16/23 [History Last Taken 07/16/23] melatonin 10 mg tablet 10 mg PO QHS 07/16/23 [History Last Taken 07/15/23] acetaminophen 500 mg tablet 1,000 mg (2 x 500 mg) PO Q8 #0 tabs 07/19/23 [Rx Last Taken Unknown] oxycodone 10 mg tablet 10 mg PO Q4H PRN pain 2 days #12 tabs 07/19/23 [Rx Last Taken Unknown] acetaminophen 650 mg rectal suppository 650 mg NC Q4H PRN fever or pain 08/06/23 [History Last Taken Unknown] aluminum-magnesium hydroxide 200 mg-200 mg/5 mL oral suspension 5 ml PO Q4H PRN dyspepsia 08/06/23 [History Last Taken Unknown] glucagon 1 mg injection kit 1 mg subcut X1 PRN hypoglycemia 08/06/23 [History Last Taken Unknown] magnesium hydroxide 400 mg/5 mL oral suspension (Milk of Magnesia) 30 ml PO DAILY PRN constipation 08/06/23 [History Last Taken Unknown] Allergy/AdvReac Type Severity Reaction Status Date / Time No Known Allergies Allergy Verified 08/05/23 17:42 Family History Mother Hypertension Diabetes Father Hypertension Diabetes Surgical History History of kidney transplant S/P colostomy S/P foot surgery S/P unilateral above knee amputation Social History housing: residential Smoking Status: Never smoker alcohol intake: never substance use type: does not use ROS Constitutional Constitutional: Reports chills, fatigue, fever(s), malaise and weakness; Denies anorexia, change in weight, night sweats or other Eyes Eyes: Denies blurry vision, change in eye color, change in vision, discharge from eye(s), double vision, erythema, eye pain, loss of vision or other ENT HEENT: Reports headache(s) and nasal congestion; Denies abnormal hearing, dysphagia, ear pain, epistaxis, hearing loss, nasal discharge, post nasal drip, sinus pressure, sore throat or other Cardiovascular Cardiovascular: Reports chest pain; Denies claudication, dyspnea on exertion, edema, lightheadedness, orthopnea, palpitations, paroxysmal nocturnal dyspnea, rapid heart rate, syncope or other Respiratory/Chest Respiratory/Chest: Reports cough; Denies dyspnea, excessive phlegm production, hemoptysis, productive cough, shortness of breath at rest, shortness of breath with exertion, wheezing or other Gastrointestinal Gastrointestinal: Reports nausea; Denies abdominal pain, coffee ground emesis, constipation, diarrhea, dyspepsia, hematemesis, hematochezia, loose stools, melena, vomiting or other Genitourinary Genitourinary: Denies burning urination, difficulty urinating, dysuria, hematuria, nocturia, urinary frequency, urinary hesitancy, urinary incontinence, urinary urgency or other Musculoskeletal Musculoskeletal: Reports myalgias and other Details: Left lower extremity phantom limb pain ; Denies arthralgias, back pain, joint pain, joint stiffness, joint swelling or neck pain Neurologic Neurologic: Reports paresthesias; Denies abnormal gait, abnormal speech, confusion, disequilibrium, dizziness, focal weakness, headache(s), numbness, seizure-like activity, seizures, syncope, tingling, tremor(s) or other Psychiatric Psychiatric: Reports anxiety and depression; Denies homicidal ideation, suicidal ideation or other Endocrine Endocrinology: Denies change in body appearance, cold intolerance, excessive sweating, heat intolerance, polydipsia, polyuria or other Hematologic/Lymphatic Hematologic/Lymphatic: Reports easy bleeding and easy bruising; Denies anemia, lymphadenopathy or other Allergic/Immunologic Allergic/Immunologic: Denies rhinitis, hives, eczemia, asthma or other Vital Signs Vital Signs Vital Signs: 08/05/23 17:39 08/05/23 17:43 08/05/23 19:25 Temperature 97.1 F L Temperature Source Temporal Pulse Rate 72 76 Respiratory Rate 16 16 Respiratory Effort Normal Non-Labored Respiratory Pattern Blood Pressure 165/97 H 165/97 H Blood Pressure Mean 119 119 Pulse Ox 100 100 Oxygen Delivery Method Nasal Cannula Nasal Cannula Oxygen Flow Rate (L/min) 4 4 08/05/23 19:49 08/05/23 20:20 08/05/23 20:20 Temperature Temperature Source Pulse Rate 72 71 Respiratory Rate 17 22 H Respiratory Effort Respiratory Pattern Normal Blood Pressure Blood Pressure Mean Pulse Ox 100 100 Oxygen Delivery Method Nasal Cannula Nasal Cannula Oxygen Flow Rate (L/min) 4 2 08/05/23 20:51 08/05/23 22:19 08/05/23 23:18 Temperature Temperature Source Pulse Rate 71 75 72 Respiratory Rate 14 18 Respiratory Effort Respiratory Pattern Blood Pressure 175/115 H 161/50 H 155/56 H Blood Pressure Mean 135 87 89 Pulse Ox 99 100 Oxygen Delivery Method Nasal Cannula Nasal Cannula Oxygen Flow Rate (L/min) 2 2 08/06/23 01:00 08/06/23 01:31 Temperature 97.8 F Temperature Source Pulse Rate 70 70 Respiratory Rate 20 H 17 Respiratory Effort Respiratory Pattern Blood Pressure 156/75 H 156/75 H Blood Pressure Mean 102 102 Pulse Ox 96 97 Oxygen Delivery Method Oxygen Flow Rate (L/min) Weight Weight: 142 kg Body Mass Index (BMI) 42.4 Physical Exam Const alert, oriented x3, no apparent distress and well nourished; Negative for average body habitus or healthy appearing Constitutional Narrative: Morbidly obese, -Congolese male, lying in bed, appears comfortable, does not appear toxic but does appear as if he is not feeling well General Appearance: cooperative HEENT normocephalic, head/scalp atraumatic, hearing grossly normal bilaterally and moist oral mucous membranes HEENT Narrative: Mallampati 3, no thrush Eyes PERRL and EOMs intact bilaterally Eyes Narrative: No scleral icterus Neck no lymphadenopathy and supple Neck Narrative: Neck is short and thick, trachea midline Resp normal respiratory effort, no retractions, no use of accessory muscles and clear to auscultation bilaterally Auscultation: Negative for rales, rhonchi or wheezes Cardio regular rate, regular rhythm, S1 normal heart sound, S2 normal heart sound, no murmurs, no rub, no gallops and no clicks GI normal to inspection, nondistended, normoactive bowel sounds, soft to palpation and non-tender Extremity no clubbing, cyanosis or edema Extremity Narrative: Right-sided pedal pulse 2+, left-sided BKA with well-healed stump Skin No no wounds, skin turgor normal, no jaundice, no petechiae and no mottling Skin Narrative: Sacral decubitus Neuro oriented x3, moves all extremities and no focal motor deficits Speech: speech normal Psych Psych Narrative: Affect is flat, mood seems depressed, interacts appropriately Results Lab / Micro Data Attestation: I reviewed the patient's lab results. 08/05/23 18:21 08/06/23 00:20 Labs: Laboratory Results - last 24 hr 08/05/23 18:21: WBC 7.6, RBC 3.75 L, Hgb 11.2 L, Hct 35.6 L, MCV 94.9 H, MCH 29.9, MCHC 31.5 L, RDW Std Deviation 48.5 H, RDW Coeff of Shanta 14.0, Plt Count 206, MPV 10.3, Immature Gran % (Auto) 0.300, Neut % (Auto) 65.3, Lymph % (Auto) 22.8, [place] % (Auto) 6.2, Eos % (Auto) 4.7, Baso % (Auto) 0.7, Absolute Neuts (auto) 5.0, Absolute Lymphs (auto) 1.73, Nucleated RBC % 0, D-Dimer Quant (PE/DVT) 0.57 H*, Sodium 132 L, Potassium 7.1 H*, Chloride 97 L, Carbon Dioxide 28.0, Anion Gap 7, BUN 86 H, Creatinine 13.40 H*, Estim Creat Clear Calc 11.25, Est GFR (MDRD) Af Amer 5 L, Est GFR (MDRD) Non-Af 5 L, BUN/Creatinine Ratio 6.4 L, Glucose 127 H, Calcium 9.1, Troponin I High Sens 16 08/05/23 21:00: Troponin I High Sens 16 08/05/23 22:24: Potassium 6.2 H* 08/06/23 00:20: Potassium 6.5 H* Micro: Microbiology 08/05/23 19:20 Mucosa - Nose SARS-CoV-2, Influenza & RSV (PCR) - Final Influenzae B Rhythm Strip Rhythm Strip: Sinus Rhythm Rate: 72 Ectopy: None Imaging Radiology Impression Chest X-Ray 08/05/23 18:33 IMPRESSION: Cardiomegaly. Persistent prominent appearance of the pulmonary artery which can be associated with pulmonary artery hypertension. Consider overall pattern of mild vascular congestion. Electronically Signed: Gris Santoyo MD at 19:21 EST , Chest CTA 08/05/23 21:12 IMPRESSION: No pulmonary embolism. Cardiomegaly coronary artery calcification. Mild enlargement of the pulmonary artery which can be associated pulmonary arterial hypertension. Nonspecific subtle air trapping in the lungs which may represent possible minimal edema and/or potentially respiratory bronchiolitis or patient with asthma. There is a persistent focus of left lower lobe atelectasis or potentially a small focus of consolidation or pneumonia. Small hiatal hernia. Splenomegaly. Hepatomegaly. Electronically Signed: Gris Santoyo MD at 22:40 EST , Assessment & Plan Assessment/Plan (1) Acute hyperkalemia: (2) 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 disease: (3) Influenza: (4) D-dimer, elevated: (5) Chest pain: PLAN: Plan Chest pain -Cardiac workup negative -CTA of chest was unremarkable -Anticipate related to acute influenza infection -Monitor on telemetry Hyperkalemia in the setting of end-stage renal disease-HD dependent -Last dialysis was on Saturday as patient declined dialysis on 08/05/2023 -Patient was given treatment for potassium intracellular shift in the emergency department -Patient was also given Kayexalate -Repeat lab in a.m. -Will plan on dialysis here tomorrow -Nephrology consult -Continue home nephrology medications -Patient will likely be able to discharge back to [facility] after dialysis tomorrow Influenza B -Workup revealed the patient is influenza be positive -Symptoms started on 08/04/2023 -Tamiflu 30 mg to be given now -Tamiflu 30 mg after dialysis on dialysis day not to exceed 5 days -Discussed with pharmacy and they will adjust dosing to be on dialysis days after dialysis (Saturday/Saturday//Saturday) D-dimer elevation -CTA negative -Patient is on Eliquis at baseline and will continue Chronic anemia -Secondary to renal disease -Stable End-stage renal disease/HD dependent -History of failed renal transplant -HD Saturday/Saturday//Saturday -Plan for inpatient dialysis tomorrow due to hyperkalemia -Last dialysis was on Saturday -Continue midodrine with dialysis -Continue home Prograf/prednisone DM-2 -Continue home basal insulin 24 units at at bedtime -Continue home prandial insulin 60 units twice daily -SSI -Carb controlled diet Hypothyroidism -Continue home levothyroxine Hypertension -Continue carvedilol 12.5 mg p.o. twice daily -Continue hydralazine 25 mg every 8 GERD -Continue home PPI Status post left BKA -Continue supportive care Hyperlipidemia -Continue home statin Left ischial wound/sacral wound/possible osteomyelitis -Recent prolonged hospitalization from what she was discharged here on 07/19/2023 -Has completed oral antibiotics with Augmentin and linezolid -Consult wound care for ongoing management History of DVT -Continue home apixaban Suspected VITO -Patient wears 3 and half liters of oxygen at night while sleeping -Recommend outpatient sleep study Depression/anxiety/insomnia -Continue home Lexapro -Continue home melatonin Morbid obesity -BMI is 42.5 -Recommend weight loss -Complicates treatment, prognosis, outcomes DVT prophylaxis -Continue home apixaban CODE STATUS Full code Charges/Coding Visit Charges Inpatient E&M: 31113 Init Hosp L2
[2023-08-06] MEDS: Sodium Polystyrene Sulfonate 15 GM/60 ML UDC 30 GM PO (03:10)
[2023-08-06] MEDS: HYDROmorphone 1 MG/ML Syringe IV ×2 (03:55→21:34)
[2023-08-06] MEDS: Oseltamivir Phosphate 30 MG Capsule PO ×2 (03:55→11:30)
[2023-08-06] MEDS: Gabapentin 100 MG Capsule PO (03:55)
[2023-08-06 04:25] LABS: Absolute Lymphocyte Count 2.12 X10^3/uL (0.83-4.51); Absolute Neutrophil Count 3.8 X10^3/uL (2.0-7.7); Basophil# 0.07 X10^3/uL; Eosinophils% 5.7 % (0-5); Hematocrit 33.8 % (40-54); Hemoglobin 10.6 g/dL (13.0-16.5); Lymphocyte # 2.12 X10^3/ul (0.83-4.51); Lymphocyte % 30.2 % (19-41); Mean Corp Hgb Conc 31.4 g/dL (32-36); Mean Corpuscular Hgb 29.7 pg (27.0-32.0); Mean Corpuscular Volume 94.7 fL (80-94); Mean Platelet Vol. 10.1 fl (6.2-12.0); Monocyte# 0.62 X10^3/uL; Monocyte% 8.8 % (0-10); NRBC Flagged by Analyzer 0 % (0-5); Neutrophil # 3.77 X10^3/uL (2.7-7.7); Neutrophil % 53.9 % (47-70); Platelet Count 178 K/mm3 (150-450); RBC Distribution Width CV 13.9 % (11.6-14.6); RBC Distribution Width SD 48.4 fl (35.1-43.9); Red Blood Count 3.57 M/mm3 (4.6-6.2)
[2023-08-06 04:44] LABS: Anion Gap 7 (5-15); BUN 90 mg/dL (7-18); BUN/Creat Ratio 6.4 RATIO (10-20); Calcium,Total 9.2 mg/dL (8.5-10.1); Chloride 99 mmol/L (98-107); EST Glomerular Filtration Rate 4 mL/min (>60); Est Glom Filt Rate - Afr Amer 5 mL/min (>60); Estimated Creatinine Clearance 10.45 ml/min; Glucose 83 mg/dL (74-106); Magnesium 2.4 mg/dL (1.6-2.6); Phosphorus 5.8 mg/dL (2.5-4.9); Potassium 5.8 mmol/L (3.5-5.1); Sodium Level 132 mmol/L (136-145)
[2023-08-06] MEDS: hydrALAZINE 25 MG Tablet PO ×3 (06:58→21:16)
[2023-08-06] MEDS: Levothyroxine 150 MCG Tablet PO (06:58)
[2023-08-06] MEDS: 0.9% Normal Saline 1,000 ML IV.SOLN. 1000 ML OPERA.SITE (09:22)
[2023-08-06] MEDS: PureFlow B 2K Dialysis Soln 1 BAG 6 BAG PF (09:23)
--- NOTE | 2023-08-06 10:05 | CASEMGMT ---
Social Work SW spoke w/pt, he states has been at [facility] since November, plan is for him to return to [facility] when ready. SW inquired w/pt if either his brother or sister listed as contacts are healthcare POA, pt states no. He is his own decision maker. No SNF list is needed at this time. Updates will be sent today, and anticipate pt being able to return to [facility] when ready. SW will continue to follow. BRIONNA Chaudhry
--- NOTE | 2023-08-06 10:23 | PCM.CONS.R ---
Documented by User: KORI Merritt 08/06/23 10:34 Assessment & Plan Assessment/Plan (1) 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 disease: (2) Acute hyperkalemia: (3) Influenza: PLAN: Plan This is a 37-year-old male with past medical history significant for ESRD who is on hemodialysis Saturday, Saturday, , Saturday schedule, admitted to the hospital after presenting with complaints of shortness of breath, potassium noted to be 7.1 (treated with sodium bicarb, dextrose, calcium, insulin), tested positive for influenza B, now on Tamiflu. CTA chest unremarkable. Patient's last dialysis was on Saturday. He refused dialysis yesterday at [facility] stating he was not feeling well. Potassium this morning improved 5.8. Patient is undergoing hemodialysis now over 4 hours on 2K bath and attempting fluid removal as patient/blood pressure tolerates. Outpatient EDW around 128 kg however due to history of noncompliance with dialysis, diet and fluid restriction patient has not reached this dry weight for some time. We will evaluate for hemodialysis tomorrow. Recommend to continue on renal diet. Will monitor hemoglobin trends, hemoglobin 10.6. Blood pressures acceptable. Further orders forthcoming as hospitalization evolves, thank you for allowing us to participate in the care of Mr. Salgado. HPI Consult Data Date of Consult: 08/06/23 HPI Narrative HPI Narrative: CHINA SALGADO, is a 37 M with past medical history significant for ESRD on hemodialysis as per the [facility] on a Saturday, Saturday, , Saturday schedule who presented to the emergency room yesterday with complaints of cough, shortness of breath, chest pain and weakness. Workup in the emergency room included labs which showed a potassium of 7.1. He also had chest x-ray and CTA of chest which was unremarkable. Patient did test positive for influenza B. He was admitted for further evaluation and treatment. Patient is undergoing hemodialysis now. Denies any further complaints. [facility] Medical History Acute kidney failure Acute on chronic systolic (congestive) heart failure Acute pulmonary edema Acute respiratory failure with hypoxia Anemia in chronic kidney disease Dependence on renal dialysis Depression End stage renal disease Gastro-esophageal reflux disease without esophagitis Hyperkalemia Hyperlipemia Hyperosmolality and hypernatremia Hypertensive heart and chronic kidney disease with heart failure and stage 1 through stage 4 chronic kidney disease, or unspecified chronic kidney disease Hypomagnesemia Hypothyroidism Kidney transplant failure Neurogenic bowel Neuromuscular dysfunction of bladder, unspecified Other acute osteomyelitis, left ankle and foot Other pericardial effusion (noninflammatory) Other pulmonary embolism without acute cor pulmonale Paraplegia, incomplete Pericardial effusion (noninflammatory) Pneumonia Pressure ulcer of left heel, unspecified stage Pyrexia SIRS (systemic inflammatory response syndrome) Type 2 diabetes mellitus with diabetic chronic kidney disease Home Medications acetaminophen 325 mg tablet 650 mg PO Q4H PRN PAIN/FEVER 01/02/23 [History Last Taken 04/21/23] apixaban 5 mg tablet (Eliquis) 5 mg PO BID 01/02/23 [History Last Taken 07/16/23] ascorbic acid (vitamin C) 500 mg tablet 500 mg PO DAILY 01/02/23 [History Last Taken 07/16/23] atorvastatin 40 mg tablet 40 mg PO QHS 01/02/23 [History Last Taken 07/15/23] bisacodyl 10 mg rectal suppository 10 mg GA DAILY PRN Constipation 01/02/23 [History Last Taken Unknown] carvedilol 12.5 mg tablet 12.5 mg PO BID 01/02/23 [History Last Taken 07/16/23] cetylpyridinium chloride 1 yunior mucous membrane Q3H PRN Sore Throat 01/02/23 [History Last Taken Unknown] clotrimazole-betamethasone 1 %-0.05 % topical cream 1 applic topical QHS 01/02/23 [History Last Taken 07/15/23] dextrose 40 % oral gel (Glucose Gel) 15 g PO Q15M PRN Hypoglycemia 01/02/23 [History Last Taken Unknown] hydralazine 25 mg tablet 25 mg PO Q8 01/02/23 [History Last Taken 07/16/23] insulin glargine 100 unit/mL (3 mL) subcutaneous pen (Lantus Solostar U-100 Insulin) 24 unit subcut QHS 01/02/23 [History Last Taken 07/16/23] insulin lispro 100 unit/mL subcutaneous pen (Humalog KwikPen (U-100) Insulin) 6 unit subcut BID 01/02/23 [History Last Taken 07/16/23] midodrine 10 mg tablet 10 mg PO MOTUTHFR 01/02/23 [History Last Taken 07/16/23] ondansetron HCl 4 mg tablet 4 mg PO Q6H PRN Nausea 01/02/23 [History Last Taken Unknown] pantoprazole 40 mg tablet,delayed release 40 mg PO DAILY 01/02/23 [History Last Taken 07/16/23] polyethylene glycol 3350 17 gram oral powder packet 17 g PO DAILY PRN constipation 01/02/23 [History Last Taken Unknown] prednisone 5 mg tablet 5 mg PO DAILY 01/02/23 [History Last Taken 07/16/23] promethazine 12.5 mg tablet 12.5 mg PO Q8H PRN Nausea 01/02/23 [History Last Taken 07/15/23] sennosides 8.6 mg-docusate sodium 50 mg capsule (Senna Plus) 1 tab-cap PO BID Constipation 01/02/23 [History Last Taken 07/16/23] sodium phosphates 19 gram-7 gram/118 mL enema (Fleet Enema) 118 ml GA DAILY PRN Constipation 01/02/23 [History Last Taken Unknown] tacrolimus 1 mg capsule, immediate-release (Prograf) 2 mg PO Q12H 01/02/23 [History Last Taken 07/16/23] trazodone 50 mg tablet 125 mg PO QHS 01/02/23 [History Last Taken 07/15/23] calcitriol 0.5 mcg capsule 1.25 mcg PO DAILY 04/21/23 [History Last Taken 07/15/23] gabapentin 100 mg capsule 100 [facility] 04/21/23 [History Last Taken 07/16/23] sevelamer HCl 800 mg tablet 2,400 mg PO TID 04/21/23 [History Last Taken 07/16/23] diphenhydramine HCl 25 mg tablet 25 mg PO DAILY PRN allergy symptoms 07/16/23 [History Last Taken 07/13/23] escitalopram oxalate 20 mg tablet 20 mg PO DAILY 07/16/23 [History Last Taken 07/16/23] guaifenesin 100 mg/5 mL oral liquid (Adult Tussin Chest Congestion) 200 mg PO Q4H PRN cough 07/16/23 [History Last Taken Unknown] levothyroxine 150 mcg tablet 150 mcg PO DAILY 07/16/23 [History Last Taken 07/16/23] melatonin 10 mg tablet 10 mg PO QHS 07/16/23 [History Last Taken 07/15/23] acetaminophen 500 mg tablet 1,000 mg (2 x 500 mg) PO Q8 #0 tabs 07/19/23 [Rx Last Taken Unknown] oxycodone 10 mg tablet 10 mg PO Q4H PRN pain 2 days #12 tabs 07/19/23 [Rx Last Taken Unknown] acetaminophen 650 mg rectal suppository 650 mg GA Q4H PRN fever or pain 08/06/23 [History Last Taken Unknown] aluminum-magnesium hydroxide 200 mg-200 mg/5 mL oral suspension 5 ml PO Q4H PRN dyspepsia 08/06/23 [History Last Taken Unknown] glucagon 1 mg injection kit 1 mg subcut X1 PRN hypoglycemia 08/06/23 [History Last Taken Unknown] magnesium hydroxide 400 mg/5 mL oral suspension (Milk of Magnesia) 30 ml PO DAILY PRN constipation 08/06/23 [History Last Taken Unknown] Allergy/AdvReac Type Severity Reaction Status Date / Time No Known Allergies Allergy Verified 08/05/23 17:42 Family History Mother Hypertension Diabetes Father Hypertension Diabetes Surgical History History of kidney transplant S/P colostomy S/P foot surgery S/P unilateral above knee amputation Social History housing: correction Smoking Status: Never smoker alcohol intake: never substance use type: does not use ROS ROS Narrative As in HPI and past medical history. Physical Exam Narrative Alert and oriented x 3, no apparent distress S1, S2, RRR Lung sounds clear anteriorly, no wheezes, rhonchi rales Abdomen soft, nontender Left AKA, no edema to left thigh. Right lower leg with 1+ pitting edema Left forearm AV fistula Lab / Micro Data 08/06/23 04:15 08/06/23 04:15 Labs: Laboratory Results - last 24 hr 08/05/23 18:21: WBC 7.6, RBC 3.75 L, Hgb 11.2 L, Hct 35.6 L, MCV 94.9 H, MCH 29.9, MCHC 31.5 L, RDW Std Deviation 48.5 H, RDW Coeff of Shanta 14.0, Plt Count 206, MPV 10.3, Immature Gran % (Auto) 0.300, Neut % (Auto) 65.3, Lymph % (Auto) 22.8, [place] % (Auto) 6.2, Eos % (Auto) 4.7, Baso % (Auto) 0.7, Absolute Neuts (auto) 5.0, Absolute Lymphs (auto) 1.73, Nucleated RBC % 0, D-Dimer Quant (PE/DVT) 0.57 H*, Sodium 132 L, Potassium 7.1 H*, Chloride 97 L, Carbon Dioxide 28.0, Anion Gap 7, BUN 86 H, Creatinine 13.40 H*, Estim Creat Clear Calc 11.25, Est GFR (MDRD) Af Amer 5 L, Est GFR (MDRD) Non-Af 5 L, BUN/Creatinine Ratio 6.4 L, Glucose 127 H, Calcium 9.1, Troponin I High Sens 16 08/05/23 21:00: Troponin I High Sens 16 08/05/23 22:24: Potassium 6.2 H* 08/06/23 00:20: Potassium 6.5 H* 08/06/23 04:15: WBC 7.0, RBC 3.57 L, Hgb 10.6 L, Hct 33.8 L, MCV 94.7 H, MCH 29.7, MCHC 31.4 L, RDW Std Deviation 48.4 H, RDW Coeff of Shanta 13.9, Plt Count 178, MPV 10.1, Immature Gran % (Auto) 0.400, Neut % (Auto) 53.9, Lymph % (Auto) 30.2, [place] % (Auto) 8.8, Eos % (Auto) 5.7 H, Baso % (Auto) 1.0, Absolute Neuts (auto) 3.8, Absolute Lymphs (auto) 2.12, Nucleated RBC % 0, Sodium 132 L, Potassium 5.8 H, Chloride 99, Carbon Dioxide 26.0, Anion Gap 7, BUN 90 H, Creatinine 14.00 H*, Estim Creat Clear Calc 10.45, Est GFR (MDRD) Af Amer 5 L, Est GFR (MDRD) Non-Af 4 L, BUN/Creatinine Ratio 6.4 L, Glucose 83, Calcium 9.2, Phosphorus 5.8 H, Magnesium 2.4 Micro: Microbiology 08/05/23 19:20 Mucosa - Nose SARS-CoV-2, Influenza & RSV (PCR) - Final Influenzae B Rhythm Strip Rhythm Strip: Sinus Rhythm Rate: 72 Ectopy: None Imaging Radiology Impression Chest X-Ray 08/05/23 18:33 IMPRESSION: Cardiomegaly. Persistent prominent appearance of the pulmonary artery which can be associated with pulmonary artery hypertension. Consider overall pattern of mild vascular congestion. Electronically Signed: Gris Santoyo MD at 19:21 EST , Chest CTA 08/05/23 21:12 IMPRESSION: No pulmonary embolism. Cardiomegaly coronary artery calcification. Mild enlargement of the pulmonary artery which can be associated pulmonary arterial hypertension. Nonspecific subtle air trapping in the lungs which may represent possible minimal edema and/or potentially respiratory bronchiolitis or patient with asthma. There is a persistent focus of left lower lobe atelectasis or potentially a small focus of consolidation or pneumonia. Small hiatal hernia. Splenomegaly. Hepatomegaly. Electronically Signed: Gris Santoyo MD at 22:40 EST , Documented by User: Dr. Ansley Peña MD 08/06/23 12:41 Assessment & Plan Assessment/Plan (1) 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 disease: (2) Acute hyperkalemia: (3) Influenza: PLAN: Plan This is a 37-year-old male with past medical history significant for ESRD who is on hemodialysis Saturday, Saturday, , Saturday schedule, admitted to the hospital after presenting with complaints of shortness of breath, potassium noted to be 7.1 (treated with sodium bicarb, dextrose, calcium, insulin), tested positive for influenza B, now on Tamiflu. CTA chest unremarkable. Patient's last dialysis was on Saturday. He refused dialysis yesterday at [facility] stating he was not feeling well. Potassium this morning improved 5.8. Patient is undergoing hemodialysis now over 4 hours on 2K bath and attempting fluid removal as patient/blood pressure tolerates. Outpatient EDW around 128 kg however due to history of noncompliance with dialysis, diet and fluid restriction patient has not reached this dry weight for some time. We will evaluate for hemodialysis tomorrow. Recommend to continue on renal diet. Will monitor hemoglobin trends, hemoglobin 10.6. Blood pressures acceptable. Further orders forthcoming as hospitalization evolves, thank you for allowing us to participate in the care of Mr. Salgado. Attending addendum ESRD. HD today. dw staff about orders. HPI Consult Data Date of Consult: 08/06/23 [facility] Medical History Acute kidney failure Acute on chronic systolic (congestive) heart failure Acute pulmonary edema Acute respiratory failure with hypoxia Anemia in chronic kidney disease Dependence on renal dialysis Depression End stage renal disease Gastro-esophageal reflux disease without esophagitis Hyperkalemia Hyperlipemia Hyperosmolality and hypernatremia Hypertensive heart and chronic kidney disease with heart failure and stage 1 through stage 4 chronic kidney disease, or unspecified chronic kidney disease Hypomagnesemia Hypothyroidism Kidney transplant failure Neurogenic bowel Neuromuscular dysfunction of bladder, unspecified Other acute osteomyelitis, left ankle and foot Other pericardial effusion (noninflammatory) Other pulmonary embolism without acute cor pulmonale Paraplegia, incomplete Pericardial effusion (noninflammatory) Pneumonia Pressure ulcer of left heel, unspecified stage Pyrexia SIRS (systemic inflammatory response syndrome) Type 2 diabetes mellitus with diabetic chronic kidney disease Home Medications acetaminophen 325 mg tablet 650 mg PO Q4H PRN PAIN/FEVER 01/02/23 [History Last Taken 04/21/23] apixaban 5 mg tablet (Eliquis) 5 mg PO BID 01/02/23 [History Last Taken 07/16/23] ascorbic acid (vitamin C) 500 mg tablet 500 mg PO DAILY 01/02/23 [History Last Taken 07/16/23] atorvastatin 40 mg tablet 40 mg PO QHS 01/02/23 [History Last Taken 07/15/23] bisacodyl 10 mg rectal suppository 10 mg GA DAILY PRN Constipation 01/02/23 [History Last Taken Unknown] carvedilol 12.5 mg tablet 12.5 mg PO BID 01/02/23 [History Last Taken 07/16/23] cetylpyridinium chloride 1 yunior mucous membrane Q3H PRN Sore Throat 01/02/23 [History Last Taken Unknown] clotrimazole-betamethasone 1 %-0.05 % topical cream 1 applic topical QHS 01/02/23 [History Last Taken 07/15/23] dextrose 40 % oral gel (Glucose Gel) 15 g PO Q15M PRN Hypoglycemia 01/02/23 [History Last Taken Unknown] hydralazine 25 mg tablet 25 mg PO Q8 01/02/23 [History Last Taken 07/16/23] insulin glargine 100 unit/mL (3 mL) subcutaneous pen (Lantus Solostar U-100 Insulin) 24 unit subcut QHS 01/02/23 [History Last Taken 07/16/23] insulin lispro 100 unit/mL subcutaneous pen (Humalog KwikPen (U-100) Insulin) 6 unit subcut BID 01/02/23 [History Last Taken 07/16/23] midodrine 10 mg tablet 10 mg PO MOTUTHFR 01/02/23 [History Last Taken 07/16/23] ondansetron HCl 4 mg tablet 4 mg PO Q6H PRN Nausea 01/02/23 [History Last Taken Unknown] pantoprazole 40 mg tablet,delayed release 40 mg PO DAILY 01/02/23 [History Last Taken 07/16/23] polyethylene glycol 3350 17 gram oral powder packet 17 g PO DAILY PRN constipation 01/02/23 [History Last Taken Unknown] prednisone 5 mg tablet 5 mg PO DAILY 01/02/23 [History Last Taken 07/16/23] promethazine 12.5 mg tablet 12.5 mg PO Q8H PRN Nausea 01/02/23 [History Last Taken 07/15/23] sennosides 8.6 mg-docusate sodium 50 mg capsule (Senna Plus) 1 tab-cap PO BID Constipation 01/02/23 [History Last Taken 07/16/23] sodium phosphates 19 gram-7 gram/118 mL enema (Fleet Enema) 118 ml GA DAILY PRN Constipation 01/02/23 [History Last Taken Unknown] tacrolimus 1 mg capsule, immediate-release (Prograf) 2 mg PO Q12H 01/02/23 [History Last Taken 07/16/23] trazodone 50 mg tablet 125 mg PO QHS 01/02/23 [History Last Taken 07/15/23] calcitriol 0.5 mcg capsule 1.25 mcg PO DAILY 04/21/23 [History Last Taken 07/15/23] gabapentin 100 mg capsule 100 mg PO MOTUTHFR PHANTOM PAIN 04/21/23 [History Last Taken 07/16/23] sevelamer HCl 800 mg tablet 2,400 mg PO TID 04/21/23 [History Last Taken 07/16/23] diphenhydramine HCl 25 mg tablet 25 mg PO DAILY PRN allergy symptoms 07/16/23 [History Last Taken 07/13/23] escitalopram oxalate 20 mg tablet 20 mg PO DAILY 07/16/23 [History Last Taken 07/16/23] guaifenesin 100 mg/5 mL oral liquid (Adult Tussin Chest Congestion) 200 mg PO Q4H PRN cough 07/16/23 [History Last Taken Unknown] levothyroxine 150 mcg tablet 150 mcg PO DAILY 07/16/23 [History Last Taken 07/16/23] melatonin 10 mg tablet 10 mg PO QHS 07/16/23 [History Last Taken 07/15/23] acetaminophen 500 mg tablet 1,000 mg (2 x 500 mg) PO Q8 #0 tabs 07/19/23 [Rx Last Taken Unknown] oxycodone 10 mg tablet 10 mg PO Q4H PRN pain 2 days #12 tabs 07/19/23 [Rx Last Taken Unknown] acetaminophen 650 mg rectal suppository 650 mg GA Q4H PRN fever or pain 08/06/23 [History Last Taken Unknown] aluminum-magnesium hydroxide 200 mg-200 mg/5 mL oral suspension 5 ml PO Q4H PRN dyspepsia 08/06/23 [History Last Taken Unknown] glucagon 1 mg injection kit 1 mg subcut X1 PRN hypoglycemia 08/06/23 [History Last Taken Unknown] magnesium hydroxide 400 mg/5 mL oral suspension (Milk of Magnesia) 30 ml PO DAILY PRN constipation 08/06/23 [History Last Taken Unknown] Allergy/AdvReac Type Severity Reaction Status Date / Time No Known Allergies Allergy Verified 08/05/23 17:42 Family History Mother Hypertension Diabetes Father Hypertension Diabetes Surgical History History of kidney transplant S/P colostomy S/P foot surgery S/P unilateral above knee amputation Social History housing: correction Smoking Status: Never smoker alcohol intake: never substance use type: does not use Lab / Micro Data 08/06/23 04:15 08/06/23 04:15
--- NOTE | 2023-08-06 11:03 | CASEMGMT ---
Discharge Planning Updates sent via [facility] to [facility]. Selina Sylvester, Discharge Planning Asst.
[2023-08-06] MEDS: Acetaminophen 325 MG Tablet 650 MG PO (11:25)
[2023-08-06] MEDS: oxyCODONE 5 MG Tablet 10 MG PO ×2 (11:27→18:41)
[2023-08-06] MEDS: SEVELAMER CARBONATE 800 MG TABLET 2400 MG PO ×2 (11:27→16:32)
[2023-08-06] MEDS: Ascorbic Acid 500 MG Tablet PO (11:28)
[2023-08-06] MEDS: Calcitriol 0.25 MCG Capsule 1.25 MCG PO (11:28)
[2023-08-06] MEDS: Senna/Docusate Sodium 1 Tablet PO ×2 (11:29→21:16)
[2023-08-06] MEDS: Pantoprazole Sodium 40 MG Tablet PO (11:29)
[2023-08-06] MEDS: Escitalopram Oxalate 20 MG Tablet PO (11:29)
[2023-08-06] MEDS: predniSONE 5 MG Tablet PO (11:29)
[2023-08-06] MEDS: Tacrolimus Anhydrous 1 MG Capsule 2 MG PO ×2 (11:29→21:16)
[2023-08-06] MEDS: Carvedilol 12.5 MG Tablet PO ×2 (11:29→16:33)
[2023-08-06 12:06] LABS: Bedside Glucose 70 mg/dL (74-106)
--- NOTE | 2023-08-06 12:31 | CASEMGMT ---
Social Work Selina, tam/deepthi political science research assistant sent updates to [facility]. Pt can return any time, he has a bedhold. As per LINE STAKER, pt likely to return to [facility] tomorrow. SW sent a message to [facility] letting them know via [employer]. BRIONNA Chaudhry
[2023-08-06] MEDS: APIXABAN 5 MG TABLET PO ×2 (12:56→21:16)
--- NOTE | 2023-08-06 14:15 | CHAPLAIN ---
Type of Pastoral Visit ___ Initial Visit ___ Follow-up Visit ___ On-call Visit ___ General Patient Visit ___ Spiritual Assessment ___ Family Conference ___ Bereavement ___ Rapid Response ___ Code Blue ___ Other (describe below) Pastoral Care Referral From ___ Patient ___ Family ___ Nurse ___ Physician ___ Corporation Secretary ___ Circuit Manager ___ Other (describe below) Sacrament/Intervention ___ Active listening ___ Anointing ___ Yazidi ___ Bereavement ___ Communion ___ Jaleesa exploration ___ ___ Life review ___ Prayer ___ Reconciliation ___ Sacrament of Sick ___ Supportive presence ___ Wedding ___ Other (describe below) Pastoral Comments patient is hiding under the covers and is having his dialysis; offered a return to visit another time and pt readily agreed
--- NOTE | 2023-08-06 15:00 | WOUNDNOTE ---
Wound photo: left ischium
--- NOTE | 2023-08-06 15:18 | CASEMGMT ---
Met with patient to complete VO form. VO form explained to patient who voiced understanding. Original form placed in pt?s chart and copy provided to?patient. Selina Sylvester, Discharge Planning Asst
[2023-08-06] MEDS: Juven (unflavored) Packet 1 PACKET PO (16:31)
[2023-08-06 16:55] LABS: Bedside Glucose 119 mg/dL (74-106)
[2023-08-06] MEDS: Insulin Lispro 100 UNIT/ML INSULN.PEN 6 UNIT SC (17:24)
[2023-08-06] MEDS: traZODone 50 MG Tablet 125 MG PO (21:15)
[2023-08-06] MEDS: Atorvastatin Calcium 40 MG Tablet PO (21:16)
[2023-08-06] MEDS: MELATONIN 10 MG TABLET PO (21:16)
[2023-08-06] MEDS: Insulin Glargine-YFGN 100 UNIT/ML Pen 24 UNIT SC (21:16)
[2023-08-06] MEDS: Clotrimazole/Betamethasone 1 Tube 1 APPLIC TOPICAL (21:18)
[2023-08-06] MEDS: 0.9% Saline Lock 10 ML Syringe IV (21:34)
[2023-08-06 21:38] LABS: Bedside Glucose 132 mg/dL (74-106)
--- NOTE | 2023-08-07 00:13 | NURSING ---
Hurst catheter in place from senior living removed and replaced.
[2023-08-07 02:21] LABS: Bedside Glucose 101 mg/dL (74-106)
[2023-08-07 03:20] VITALS: BP 128/72; PULSE 82; RESP 19; TEMP 35.9; O2SAT 96
[2023-08-07 04:18] LABS: Anion Gap 7 (5-15); BUN 78 mg/dL (7-18); BUN/Creat Ratio 6.8 RATIO (10-20); Calcium,Total 8.7 mg/dL (8.5-10.1); Chloride 99 mmol/L (98-107); EST Glomerular Filtration Rate 5 mL/min (>60); Est Glom Filt Rate - Afr Amer 7 mL/min (>60); Estimated Creatinine Clearance 12.55 ml/min; Glucose 172 mg/dL (74-106); Potassium 5.2 mmol/L (3.5-5.1); Sodium Level 132 mmol/L (136-145)
[2023-08-07 05:09] VITALS: BP 172/73; PULSE 83
[2023-08-07] MEDS: hydrALAZINE 25 MG Tablet PO ×2 (05:09→13:09)
[2023-08-07] MEDS: Levothyroxine 150 MCG Tablet PO (05:09)
[2023-08-07] MEDS: 0.9% Saline Lock 10 ML Syringe IV (05:12)
[2023-08-07 08:08] LABS: Bedside Glucose 145 mg/dL (74-106)
[2023-08-07] MEDS: SEVELAMER CARBONATE 800 MG TABLET 2400 MG PO ×2 (08:56→13:07)
[2023-08-07] MEDS: Juven (unflavored) Packet 1 PACKET PO (08:56)
[2023-08-07] MEDS: Insulin Lispro 100 UNIT/ML INSULN.PEN 6 UNIT SC (08:56)
[2023-08-07] MEDS: Carvedilol 12.5 MG Tablet PO (08:56)
[2023-08-07] MEDS: predniSONE 5 MG Tablet PO (08:56)
[2023-08-07 09:00] VITALS: BP 148/69; PULSE 85; RESP 14; TEMP 36.2; O2SAT 99
--- NOTE | 2023-08-07 10:57 | PCM.PN.REN ---
Subjective Subjective Resting in bed, no overnight events. Denies any complaints. Objective Data Objective Data Vital Signs: Vital Signs Temp Pulse Resp BP Pulse Ox O2 Del Method O2 Flow Rate 97.2 F L 85 14 148/69 H 99 Nasal Cannula 2 08/07/23 09:00 08/07/23 09:00 08/07/23 09:00 08/07/23 09:00 08/07/23 09:00 08/07/23 09:00 08/07/23 09:00 FiO2 95 08/06/23 16:16 Oxygen Flow Rate (L/min) 2 Oxygen Delivery Method Nasal Cannula Weight: 131 kg Body Mass Index (BMI) 39.1 Intake & Output: Intake and Output for Last 24 Hours 08/05/23 08/06/23 08/07/23 23:59 23:59 23:59 Intake Total 584.17 / 584.17 290 / 490 800 / 800 Output Total 3250 / 3270 20 / 20 Balance 584.17 / 584.17 -2960 / -2780 780 / 780 Lab / Micro Data 08/06/23 04:15 08/07/23 03:30 Labs: Laboratory Results - last 24 hr 08/06/23 11:44: POC Glucose 70 L 08/06/23 16:24: POC Glucose 119 H 08/06/23 21:11: POC Glucose 132 H 08/07/23 02:03: POC Glucose 101 08/07/23 03:30: Sodium 132 L, Potassium 5.2 H, Chloride 99, Carbon Dioxide 26.0, Anion Gap 7, BUN 78 H, Creatinine 11.50 H*, Estim Creat Clear Calc 12.55, Est GFR (MDRD) Af Amer 7 L, Est GFR (MDRD) Non-Af 5 L, BUN/Creatinine Ratio 6.8 L, Glucose 172 H, Calcium 8.7 08/07/23 07:43: POC Glucose 145 H Micro: Microbiology 08/05/23 19:20 Mucosa - Nose SARS-CoV-2, Influenza & RSV (PCR) - Final Influenzae B Rhythm Strip Rhythm Strip: Sinus Rhythm Rate: 72 Ectopy: None Physical Exam Narrative Alert and oriented x 3, no apparent distress S1, S2, RRR Lung sounds clear anteriorly, no wheezes, rhonchi rales Abdomen soft, nontender Left AKA, no edema to left thigh. Right lower leg with 1+ pitting edema Left forearm AV fistula Assessment & Plan Assessment/Plan (1) 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 disease: (2) Acute hyperkalemia: (3) Influenza: PLAN: Plan This is a 37-year-old male with past medical history significant for ESRD who is on hemodialysis Saturday, Saturday, , Saturday schedule, admitted to the hospital after presenting with complaints of shortness of breath, potassium noted to be 7.1 (treated with sodium bicarb, dextrose, calcium, insulin), tested positive for influenza B, now on Tamiflu. CTA chest unremarkable. -ESRD on hemodialysis Saturday, Saturday, , Saturday schedule at [facility]. Patient underwent hemodialysis yesterday on 2K bath. Potassium is 5.2 today. [facility]able [facility] today. [facility] at the [facility]. Discussed with patient importance of not missing dialysis, following fluid restriction and renal diet. Reviewed with patient risk of missing dialysis, not following low potassium diet which could lead to hyperkalemia and hypervolemia. Okay for discharge per nephrology standpoint.
[2023-08-07] MEDS: Calcitriol 0.25 MCG Capsule 1.25 MCG PO (11:15)
--- NOTE | 2023-08-07 11:15 | PCM.TXEXTCAR ---
Diet Diet Order/Speech Therapy: 08/06/23 02:30 Diet: Renal - General Food consistency:: Regular Liquid Consistency:: Regular/Thin Is pt able to select menu?: Yes Routine Orders/Code Status Routine Lab Work: CBC and BMP Code Status: Full Code Wound(s) LEFT BUTTOCK: Wound Type: Pressure Injury left ischium: Wound Type: Pressure Injury Dressing Change: AntiMicrobial (Aquacel AG, etc) Therapies Physical Therapy: Eval and Treat Occupational Therapy: Eval and Treat Problem/Diagnosis (1) 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 disease: Status: Acute Code(s): Z87.448 - Personal history of other diseases of urinary system (2) Acute hyperkalemia: Status: Acute Code(s): E87.5 - Hyperkalemia (3) Influenza: Status: Acute Code(s): J11.1 - Influenza due to unidentified influenza virus with other respiratory manifestations Allergies/Procedures Done in Hospital Allergies No Known Allergies Allergy (Verified 08/05/23 17:42) Type of Care/Length of Stay Estimated LOS: Convalescent Care Less Than 30 days Type of Care Needed: Skilled Rehab Potential: Good Prognosis: Good Additional Orders/Day of Discharge Day of Discharge: 08/07/23 Dietary and Speech Recommendations Dietitian Recommendations/Changes: continue renal-general diet as ordered; will monitor blood glucose, PO intake, wt, labs, and adjust diet/add ONS as indicated. Will add Kalyan BID for wound healing. Discharge Plan Admission Admit Date/Time: 08/06/23 01:42 Attending Provider: Kyler Alvarez Primary Care Provider: Vanessa Hutchins Consulting Providers: Ansley Peña; Love Lakhani Instructions Patient Instructions: ED Influenza (Adult), ED Hyperkalemia Additional Instructions / Restrictions: Make sure you go to dialysis on Saturday. Your initial potassium tonight was 7.2 we treated it and it is coming down. Tylenol for any fevers you have influenza. Plenty of fluids and rest. Discharge Orders/Prescriptions Prescriptions: Continued atorvastatin 40 mg Tablet 40 mg PO QHS acetaminophen 325 mg Tablet 650 mg PO Q4H PRN (Reason: PAIN/FEVER) carvedilol 12.5 mg Tablet 12.5 mg PO BID Rx Instructions: must administer with a meal/food ascorbic acid (vitamin C) 500 mg Tablet 500 mg PO DAILY bisacodyl 10 mg Suppository 10 mg IN DAILY PRN (Reason: Constipation) dextrose [Glucose Gel] 40 % Gel 15 g PO Q15M PRN (Reason: Hypoglycemia) Rx Instructions: until symptoms of low blood sugar are controlled Fleet Enema 19-7 gram/118 mL Enema 118 ml IN DAILY PRN (Reason: Constipation) cetylpyridinium chloride Lozenge 1 yunior MUCOUS MEMBRANE Q3H PRN (Reason: Sore Throat) insulin lispro [Humalog KwikPen Insulin] 100 unit/mL Insulin Pen 6 unit SUBCUT BID Eliquis 5 mg Tablet 5 mg PO BID trazodone 50 mg Tablet 125 mg PO QHS prednisone 5 mg Tablet 5 mg PO DAILY hydralazine 25 mg Tablet 25 mg PO Q8 pantoprazole 40 mg Tablet,Delayed Release (Dr/Ec) 40 mg PO DAILY clotrimazole-betamethasone 1-0.05 % Cream 1 applic TOPICAL QHS tacrolimus [Prograf] 1 mg Capsule 2 mg PO Q12H midodrine 10 mg Tablet 10 mg PO MOTUTHFR Rx Instructions: TAKE 1 TAB BY MOUTH EVERY SATURDAY, SATURDAY, SATURDAY, AND SATURDAY for hypotension prior to dialysis Hold BP >130/90 insulin glargine [Lantus Solostar U-100 Insulin] 100 unit/mL (3 mL) Insulin Pen 24 unit SUBCUT QHS polyethylene glycol 3350 17 gram Powder In Packet 17 g PO DAILY PRN (Reason: constipation) promethazine 12.5 mg Tablet 12.5 mg PO Q8H PRN (Reason: Nausea) ondansetron HCl 4 mg Tablet 4 mg PO Q6H PRN (Reason: Nausea) Senna Plus 8.6-50 mg Capsule 1 tab-cap PO BID calcitriol 0.5 mcg capsule 1.25 mcg PO DAILY Patient Comments: MAR STATES THAT PT TAKES IN THE MORNING gabapentin 100 mg capsule 100 mg PO MOTUTHFR sevelamer HCl 800 mg tablet 2,400 mg PO TID Rx Instructions: must administer with a meal/food escitalopram oxalate 20 mg tablet 20 mg PO DAILY levothyroxine 150 mcg tablet 150 mcg PO DAILY Patient Comments: MAR STATES PT TAKES IN THE AM melatonin 10 mg tablet 10 mg PO QHS diphenhydramine HCl 25 mg tablet 25 mg PO DAILY PRN (Reason: allergy symptoms) guaifenesin [Adult Tussin Chest Congestion] 100 mg/5 mL liquid 200 mg PO Q4H PRN (Reason: cough) acetaminophen 500 mg Tablet 1,000 mg PO Q8 Qty: 0 0RF oxycodone 10 mg tablet 10 mg PO Q4H PRN (Reason: pain) 2 Days Qty: 12 0RF acetaminophen 650 mg suppository 650 mg IN Q4H PRN (Reason: fever or pain) aluminum-magnesium hydroxide 200-200 mg/5 mL suspension 5 ml PO Q4H PRN (Reason: dyspepsia) magnesium hydroxide [Milk of Magnesia] 400 mg/5 mL suspension 30 ml PO DAILY PRN (Reason: constipation) glucagon 1 mg kit 1 mg subcut X1 PRN (Reason: hypoglycemia) Referrals / Follow Up: Vanessa Hutchins MD [Primary Care Provider] - Disposition Disposition (needs filled in before D/C Order can be placed): [facility]
[2023-08-07] MEDS: Tacrolimus Anhydrous 1 MG Capsule 2 MG PO (11:16)
[2023-08-07] MEDS: Ascorbic Acid 500 MG Tablet PO (11:16)
[2023-08-07] MEDS: Senna/Docusate Sodium 1 Tablet PO (11:16)
[2023-08-07] MEDS: Pantoprazole Sodium 40 MG Tablet PO (11:16)
[2023-08-07] MEDS: Escitalopram Oxalate 20 MG Tablet PO (11:16)
[2023-08-07] MEDS: APIXABAN 5 MG TABLET PO (11:26)
--- NOTE | 2023-08-07 12:03 | CHAPLAIN ---
Type of Pastoral Visit _x__ Initial Visit ___ Follow-up Visit ___ On-call Visit ___ General Patient Visit ___ Spiritual Assessment ___ Family Conference ___ Bereavement ___ Rapid Response ___ Code Blue ___ Other (describe below) Pastoral Care Referral From _x__ Patient ___ Family ___ Nurse ___ Physician ___ Hospital Director ___ Medical Staff Services Manager ___ Other (describe below) Sacrament/Intervention ___ Active listening ___ Anointing ___ Jainism ___ Bereavement ___ Communion ___ Jaleesa exploration ___ ___ Life review _x__ Prayer ___ Reconciliation ___ Sacrament of Sick _x__ Supportive presence ___ Wedding ___ Other (describe below) Pastoral Comments patient is watching something on his phone and is occupied; offer of support given; pt responds that you can say a prayer if you want ; prayer given; pt indicates that he will be discharged and is doing okay; no other needs evident or spoken
[2023-08-07 12:14] LABS: Bedside Glucose 71 mg/dL (74-106)
[2023-08-07 13:00] VITALS: BP 154/85; PULSE 90; RESP 16; TEMP 36.8; O2SAT 99
[2023-08-07 13:09] VITALS: PULSE 90
--- NOTE | 2023-08-07 13:36 | CASEMGMT ---
Social Work Per kristin, pt is ready for dischrage today. SW met with pt and updated that he will discharge back to [facility] today. Pt agreeable. DC stylist assistant updated and to complete discharge. Disposition: Return to [facility] DAMARI Hernandez
[2023-08-07 14:31] LABS: Bedside Glucose 52 mg/dL (74-106)
[2023-08-07 14:31] LABS: Bedside Glucose 45 mg/dL (74-106)
[2023-08-07 14:32] LABS: Bedside Glucose 62 mg/dL (74-106)
--- NOTE | 2023-08-07 15:44 | CASEMGMT ---
Discharge Planning Discharge orders, signed med list, and transport time sent to [facility] via [facility]. Physicians will transport patient by cot at 3:30p. Nursing, SW, and patient updated. left for his brother, Abraham. Selina Sylvester, Dischage Planning Asst.
--- NOTE | 2023-08-07 16:52 | NURSING ---
Attempted to call report several times for patient but was unable to get a hold of correct RN. Was told [facility] RN would call back. [facility] RN called back at this time and gave report.
--- NOTE | 2023-08-07 17:49 | PCM.DC.SUM ---
Providers Date of Admission: 08/06/23 Primary Care Physician: Dr. Vanessa Hutchins MD Consultations 08/06/23 02:30 Consult: Nephrology Routine Consulting Provider: Ansley Peña Reason for Consult: ESRD-hyperkalemia EMERGENT Consult: No MD Notified: Yes Date Notified: 08/06/23 Time Notified: 01:44 Method of Notification: ED Physician Initiated Consult: Onc/Wound/failure analysis engineer Routine Comment: Reason For Visit: HYPERKALEMIA Diagnosis Discharge Diagnosis (1) 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 disease: Status: Acute Code(s): Z87.448 - Personal history of other diseases of urinary system (2) Acute hyperkalemia: Status: Acute Code(s): E87.5 - Hyperkalemia (3) Influenza: Status: Acute Code(s): J11.1 - Influenza due to unidentified influenza virus with other respiratory manifestations Medications at Discharge Home Medications acetaminophen 325 mg tablet 650 mg PO Q4H PRN PAIN/FEVER 01/02/23 apixaban 5 mg tablet (Eliquis) 5 mg PO BID 01/02/23 ascorbic acid (vitamin C) 500 mg tablet 500 mg PO DAILY 01/02/23 atorvastatin 40 mg tablet 40 mg PO QHS 01/02/23 bisacodyl 10 mg rectal suppository [address] DAILY PRN Constipation 01/02/23 carvedilol 12.5 mg tablet 12.5 mg PO BID 01/02/23 cetylpyridinium chloride 1 yunior mucous membrane Q3H PRN Sore Throat 01/02/23 clotrimazole-betamethasone 1 %-0.05 % topical cream 1 applic topical QHS 01/02/23 dextrose 40 % oral gel (Glucose Gel) 15 g PO Q15M PRN Hypoglycemia 01/02/23 hydralazine 25 mg tablet 25 mg PO Q8 01/02/23 insulin glargine 100 unit/mL (3 mL) subcutaneous pen (Lantus Solostar U-100 Insulin) 24 unit subcut QHS 01/02/23 insulin lispro 100 unit/mL subcutaneous pen (Humalog KwikPen (U-100) Insulin) 6 unit subcut BID 01/02/23 midodrine 10 mg tablet 10 mg PO MOTUTHFR 01/02/23 ondansetron HCl 4 mg tablet 4 mg PO Q6H PRN Nausea 01/02/23 pantoprazole 40 mg tablet,delayed release 40 mg PO DAILY 01/02/23 polyethylene glycol 3350 17 gram oral powder packet 17 g PO DAILY PRN constipation 01/02/23 prednisone 5 mg tablet 5 mg PO DAILY 01/02/23 promethazine 12.5 mg tablet 12.5 mg PO Q8H PRN Nausea 01/02/23 sennosides 8.6 mg-docusate sodium 50 mg capsule (Senna Plus) 1 tab-cap PO BID Constipation 01/02/23 sodium phosphates 19 gram-7 gram/118 mL enema (Fleet Enema) [address] DAILY PRN Constipation 01/02/23 tacrolimus 1 mg capsule, immediate-release (Prograf) 2 mg PO Q12H 01/02/23 trazodone 50 mg tablet 125 mg PO QHS 01/02/23 calcitriol 0.5 mcg capsule 1.25 mcg PO DAILY 04/21/23 gabapentin 100 mg capsule 100 mg PO MOTUTHFR PHANTOM PAIN 04/21/23 sevelamer HCl 800 mg tablet 2,400 mg PO TID 04/21/23 diphenhydramine HCl 25 mg tablet 25 mg PO DAILY PRN allergy symptoms 07/16/23 escitalopram oxalate 20 mg tablet 20 mg PO DAILY 07/16/23 guaifenesin 100 mg/5 mL oral liquid (Adult Tussin Chest Congestion) 200 mg PO Q4H PRN cough 07/16/23 levothyroxine 150 mcg tablet 150 mcg PO DAILY 07/16/23 melatonin 10 mg tablet 10 mg PO QHS 07/16/23 acetaminophen 500 mg tablet 1,000 mg (2 x 500 mg) PO Q8 #0 tabs 07/19/23 oxycodone 10 mg tablet 10 mg PO Q4H PRN pain 2 days #12 tabs 07/19/23 acetaminophen 650 mg rectal suppository [address] Q4H PRN fever or pain 08/06/23 aluminum-magnesium hydroxide 200 mg-200 mg/5 mL oral suspension 5 ml PO Q4H PRN dyspepsia 08/06/23 glucagon 1 mg injection kit 1 mg subcut X1 PRN hypoglycemia 08/06/23 magnesium hydroxide 400 mg/5 mL oral suspension (Milk of Magnesia) 30 ml PO DAILY PRN constipation 01/30/24 Hospital Course Operations None Procedures Dialysis Summary of Care Provided Minutes Spent on Discharge: 37 Hospital Course: Per HPI: CHINA GUILLEN, is a 37 M who presented to the emergency department at [facility] on 08/05/2023 complaining of generalized malaise, chest pain, and fatigue. Patient states his symptoms started on 08/04/2023 with mild cough, headache, nasal congestion, mild nausea, decreased appetite, myalgias, and fever. He declined dialysis on the making his last dialysis being on the previous Saturday as he is dialyzed on Saturday, Saturday, , and Saturday. Other than the above symptoms, his only other symptom is phantom limb pain from his previous left lower extremity BKA. Vital signs on presentation showed temperature of 97.1, heart rate 72, blood pressure 165/97, respiratory rate 16 and oxygen saturations are 100% on 2 L nasal cannula. CBC is unremarkable. Chemistry panel showed hyponatremia the sodium of 132, hyperkalemia with a potassium of 7.1, BUN of 86 and a serum creatinine of 13.4, glucose of 127 and a normal troponin x 2. D-dimer was obtained and found to be mildly elevated at 0.57. EKG was unremarkable. Chest x-ray is unremarkable. CTA showed no pulmonary embolism, cardiomegaly with coronary artery calcification, mild enlargement of the pulmonary artery associated with pulmonary hypertension and nonspecific subtle air trapping in the lungs suspicious for likely edema, small hiatal hernia, splenomegaly, hepatomegaly. In the emergency department he was treated with hyperkalemia regimen for intracellular shift and his initial potassium came back lower however his third potassium trended up as I suspect the intracellular shift was transient. He was then given Kayexalate and request for admission was made for dialysis. Case was discussed with nephrology prior to admission. Also given the fact that the patient has only had influenza symptoms for about 24 hours we did give him a 30 mg dose of Tamiflu and will continue per dosing recommendations for dialysis. Hospital Course: 1. Chest pain with hyperkalemia in the setting of end-stage renal disease with missed dialysis/influenza B?37-year-old male from a detention on dialysis 4 times a week presents to the hospital with chest pain. CT of the chest was negative for PE and essentially unremarkable but he did test positive for influenza and he received 2 doses of Tamiflu. Initially on admission he was requiring oxygen via nasal cannula but after dialysis it appears that he is down to room air, he does chronically wear oxygen at night. I discussed the case with nephrology who felt that he could be discharged today and proceed with dialysis tomorrow as previously scheduled. Potassium is down to 5.2 and EKG on admission was unremarkable not showing any signs of the hyperkalemia. I discussed with him the plan for discharge today he expressed understanding of the risk benefits going back to the detention. Of note he is somewhat noncompliant with his care as he does not follow an appropriate renal diet and will periodically choose not to go to dialysis. 2. Anemia of chronic disease, type 2 diabetes, GERD, hypertension, hyperlipidemia, status post left BKA, chronic sacral wounds with recent hospitalization for proximal osteomyelitis, can completed oral antibiotics, history of DVT, VITO, depression, anxiety, insomnia or chronic medical conditions which complicate his care. His home medications were continued where appropriate Physical Exam Narrative General: Alert, Oriented x3, Cooperative, No apparent distress HEENT: Atraumatic, PERRLA, EOMI, Normocephalic Oral: Moist Mucosa Neck: Supple, No JVD Lungs: Diminished, Normal air movement, No rhonchi, No wheeze, No rales Cardiovascular: Regular rate, Regular Rhythm, Normal S1, Normal S2, No murmurs Abdomen: Soft, Non Tender, Non-Distended, No Hepato-splenomegaly Extremities: No edema, Capillary Refill Less than 3 Seconds Skin: Sacral wounds from before photos reviewed Musculoskeletal: Left BKA Neurological: No focal neurological deficits, Motor Exam 5/5 strength throughout, Sensory exam intact to light touch and pain Psych/Mental Status: Flat Weight / BMI Weight Weight: 288 lb 12.889 oz Body Mass Index (BMI) 39.1 ABG / Lab / Microbiology Data 08/06/23 04:15 08/07/23 03:30 Laboratory: Laboratory Results - last 24 hr 08/06/23 21:11: POC Glucose 132 H 08/07/23 01:19: POC Glucose 45 L 08/07/23 01:31: POC Glucose 52 L 08/07/23 01:43: POC Glucose 62 L 08/07/23 02:03: POC Glucose 101 08/07/23 03:30: Sodium 132 L, Potassium 5.2 H, Chloride 99, Carbon Dioxide 26.0, Anion Gap 7, BUN 78 H, Creatinine 11.50 H*, Estim Creat Clear Calc 12.55, Est GFR (MDRD) Af Amer 7 L, Est GFR (MDRD) Non-Af 5 L, BUN/Creatinine Ratio 6.8 L, Glucose 172 H, Calcium 8.7 08/07/23 07:43: POC Glucose 145 H 08/07/23 11:56: POC Glucose 71 L Microbiology: Microbiology 08/05/23 19:20 Mucosa - Nose SARS-CoV-2, Influenza & RSV (PCR) - Final Influenzae B Meaningful Use Info Meaningful Use Diagnoses (Choose all that apply): None applicable Discharge Plan Admission Admit Date/Time: 08/06/23 01:42 Attending Provider: Kyler Alvarez Primary Care Provider: Vanessa Hutchins Consulting Providers: Ansley Peña; Love Lakhani Instructions Patient Instructions: ED Influenza (Adult), ED Hyperkalemia Additional Instructions / Restrictions: Make sure you go to dialysis on Saturday. Your initial potassium tonight was 7.2 we treated it and it is coming down. Tylenol for any fevers you have influenza. Plenty of fluids and rest. Discharge Orders/Prescriptions Prescriptions: Continued atorvastatin 40 mg Tablet 40 mg PO QHS acetaminophen 325 mg Tablet 650 mg PO Q4H PRN (Reason: PAIN/FEVER) carvedilol 12.5 mg Tablet 12.5 mg PO BID Rx Instructions: must administer with a meal/food ascorbic acid (vitamin C) 500 mg Tablet 500 mg PO DAILY bisacodyl 10 mg Suppository [address] DAILY PRN (Reason: Constipation) dextrose [Glucose Gel] 40 % Gel 15 g PO Q15M PRN (Reason: Hypoglycemia) Rx Instructions: until symptoms of low blood sugar are controlled Fleet Enema 19-7 gram/118 mL Enema [address] DAILY PRN (Reason: Constipation) cetylpyridinium chloride Lozenge 1 yunior MUCOUS MEMBRANE Q3H PRN (Reason: Sore Throat) insulin lispro [Humalog KwikPen Insulin] 100 unit/mL Insulin Pen 6 unit SUBCUT BID Eliquis 5 mg Tablet 5 mg PO BID trazodone 50 mg Tablet 125 mg PO QHS prednisone 5 mg Tablet 5 mg PO DAILY hydralazine 25 mg Tablet 25 mg PO Q8 pantoprazole 40 mg Tablet,Delayed Release (Dr/Ec) 40 mg PO DAILY clotrimazole-betamethasone 1-0.05 % Cream 1 applic TOPICAL QHS tacrolimus [Prograf] 1 mg Capsule 2 mg PO Q12H midodrine 10 mg Tablet 10 mg PO MOTUTHFR Rx Instructions: TAKE 1 TAB BY MOUTH EVERY SATURDAY, SATURDAY, SATURDAY, AND SATURDAY for hypotension prior to dialysis Hold BP >130/90 insulin glargine [Lantus Solostar U-100 Insulin] 100 unit/mL (3 mL) Insulin Pen 24 unit SUBCUT QHS polyethylene glycol 3350 17 gram Powder In Packet 17 g PO DAILY PRN (Reason: constipation) promethazine 12.5 mg Tablet 12.5 mg PO Q8H PRN (Reason: Nausea) ondansetron HCl 4 mg Tablet 4 mg PO Q6H PRN (Reason: Nausea) Senna Plus 8.6-50 mg Capsule 1 tab-cap PO BID calcitriol 0.5 mcg capsule 1.25 mcg PO DAILY Patient Comments: MAR STATES THAT PT TAKES IN THE MORNING gabapentin 100 mg capsule 100 mg PO MOTUTHFR sevelamer HCl 800 mg tablet 2,400 mg PO TID Rx Instructions: must administer with a meal/food escitalopram oxalate 20 mg tablet 20 mg PO DAILY levothyroxine 150 mcg tablet 150 mcg PO DAILY Patient Comments: MAR STATES PT TAKES IN THE AM melatonin 10 mg tablet 10 mg PO QHS diphenhydramine HCl 25 mg tablet 25 mg PO DAILY PRN (Reason: allergy symptoms) guaifenesin [Adult Tussin Chest Congestion] 100 mg/5 mL liquid 200 mg PO Q4H PRN (Reason: cough) acetaminophen 500 mg Tablet 1,000 mg PO Q8 Qty: 0 0RF oxycodone 10 mg tablet 10 mg PO Q4H PRN (Reason: pain) 2 Days Qty: 12 0RF acetaminophen 650 mg suppository [address] Q4H PRN (Reason: fever or pain) aluminum-magnesium hydroxide 200-200 mg/5 mL suspension 5 ml PO Q4H PRN (Reason: dyspepsia) magnesium hydroxide [Milk of Magnesia] 400 mg/5 mL suspension 30 ml PO DAILY PRN (Reason: constipation) glucagon 1 mg kit 1 mg subcut X1 PRN (Reason: hypoglycemia) Referrals / Follow Up: Vanessa Hutchins MD [Primary Care Provider] - Disposition Disposition (needs filled in before D/C Order can be placed): Shelter Facility Charges/Coding Visit Charges Inpatient E&M: 98159 Disch Hosp >30min
[2023-08-07 19:40] LABS: Bedside Glucose 153 mg/dL (74-106)
== END 2023-08-07 15:35 | disposition skilled nursing facility (03) ==
LOC: ED 23:34 → ICU 08-06 05:04
PROVIDERS: Admitting Provider Internal Medicine; Emergency Provider Emergency Medicine; PCP Internal Medicine; Visit Provider Family Medicine
DX: E87.5 Hyperkalemia (principal); I13.2 Hypertensive heart and chronic kidney disease with heart failure and with stage 5 chronic kidney disease, or end stage renal disease; Z99.2 Dependence on renal dialysis; I50.22 Chronic systolic (congestive) heart failure; E11.22 Type 2 diabetes mellitus with diabetic chronic kidney disease; N18.6 End stage renal disease; E66.01 Morbid (severe) obesity due to excess calories; Z68.41 Body mass index [BMI] 40.0-44.9, adult; Z79.4 Long term (current) use of insulin; D63.8 Anemia in other chronic diseases classified elsewhere; E87.1 Hypo-osmolality and hyponatremia; L89.159 Pressure ulcer of sacral region, unspecified stage; E78.5 Hyperlipidemia, unspecified; Z79.01 Long term (current) use of 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; K21.9 Gastro-esophageal reflux disease without esophagitis; J11.1 Influenza due to unidentified influenza virus with other respiratory manifestations; Z79.899 Other long term (current) drug therapy; Z89.522 Acquired absence of left knee; E03.9 Hypothyroidism, unspecified; Z79.890 Hormone replacement therapy; Z86.718 Personal history of other venous thrombosis and embolism
CPT/HCPCS: 96374; 96375; 96376; 71045; 71275; 80048; 82962; 83735; 84100; 84132; 84484; 85025; 85379; 87631; 90937; 93005; 94640; 94668; 96365; 96366; 96368; 97802; 99221; 99285; J7030; Q9967; A4216; G0257; G0378; J0612

== ENCOUNTER → 2023-08-12 | Outpatient (REF) | payer MEDICARE, MEDICAID, SELFPAY ==
[2023-08-12 08:52] LABS: Anion Gap 10 (5-15); BUN 75 mg/dL (7-18); Calcium,Total 9.2 mg/dL (8.5-10.1); Chloride 99 mmol/L (98-107); EST Glomerular Filtration Rate 5 mL/min (>60); Est Glom Filt Rate - Afr Amer 6 mL/min (>60); Glucose 81 mg/dL (74-106); Magnesium 2.5 mg/dL (1.6-2.6); Potassium 5.3 mmol/L (3.5-5.1); Sodium Level 135 mmol/L (136-145)
== END ==
LOC: OLS.SW 05:00
PROVIDERS: PCP Internal Medicine; Visit Provider Internal Medicine
DX: E11.22 Type 2 diabetes mellitus with diabetic chronic kidney disease (principal); I12.9 Hypertensive chronic kidney disease with stage 1 through stage 4 chronic kidney disease, or unspecified chronic kidney disease; N18.9 Chronic kidney disease, unspecified
CPT/HCPCS: 80048; 83735

== ENCOUNTER 2023-08-27 13:30 | Outpatient (RCR) | payer MEDICARE, MEDICAID, SELFPAY ==
[2023-08-08 00:34] VITALS: BP 188/91; PULSE 78; RESP 20; TEMP 36.1; BMI 41.1
[2023-08-21 13:11] VITALS: BP 176/98; PULSE 78; RESP 18; TEMP 36.4; BMI 41.1
--- NOTE | 2023-08-21 15:01 | PCM.WC.PN ---
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 He was recently admitted at [facility] from 07/16/23 to 07/19/23 for a cough, fever and chills. Patient was admitted for acutely infected chronic left ischial/sacral wound with concern for osteomyelitis, started on IV antibiotics. He has a history of ESRD on hemodialysis. History of failed kidney transplant, chronic systolic heart failure, hypertension, hyperlipidemia, diabetes mellitus type II, left AKA, and incomplete paraplegia. He resides at [facility] where he receives his hemodialysis. He had an operative debridement of his left ischial ulcer at [facility] 2 years ago, per the patient. Wound culture obtained on 07/16/23 which was positive for Proteus mirabilis, Escherichia coli, Enterococcus gallinarum, and MRSA. ID was consulted and he was treated with Vancomycin and Zosyn IV He was discharged on Linezolid and Augmentin and has finished them. CT of abdomen and pelvis on 07/16/23, related to the ulcer showed There is a decubitus ulcer in the left gluteus with extension into and sclerotic and erosive involvement of the left initial tuberosity. This is concerning for osteomyelitis. He has a new onset wound in the left amputation stump. Denies trauma. Today he denies fever, chills, nausea or vomiting. Patient has diabetes mellitus. His last HgbA1c from 08/09/23 is 6.4. For elective surgeries, his HgbA1c needs to be less than 8. Progress of Wound: Stable left ischial ulcer and new onset wound left amputation stump. Objective Data Objective Data Vital Signs: Vital Signs Temp Pulse Resp BP 97.6 F L 78 18 176/98 H 08/21/23 13:11 08/21/23 13:11 08/21/23 13:11 08/21/23 13:11 Weight: 302 lb 12.736 oz Body Mass Index (BMI) 41.1 Lab / Micro Data Attestation: I reviewed the patient's lab results. Lab results narrative: Patient has diabetes mellitus. His HgbA1c from 08/09/23 was 6.4. For elective surgeries, the HgbA1c needs to be less than 8. Charges/Coding Procedures Integumentary [id number]: 47772 Marycarmen musc/fascia 20 sq cm/< (ICD-10 - L89.324, N18.6, E11.9, A49.02, T87.89) Multi Select Codes Integumentary Integumentary CPT Codes: 44024 Marycarmen subq tissue 20 sq cm/< (ICD-10 - T87.89, N18.6, E11.9, A49.02, L89.324) Debridement Note Debridement Note Wound debrided: #1 Left ischial area. Laterality: Left Wound Grade/Stage: IV. Type of Debridement: Excisional debridement Anesthesia Used: 5% Lidocaine Gel Depth: Down to and including healthy tissue, in the subcutaneous layer and to muscle (bone is palpable and not exposed.) Percentage of wound debrided: 100 Instrument Used: 5mm curette Tissue Removed: subcutaneous tissue, muscle, senescent cells, bioburden Severity: Fat Layer Exposed (muscle is exposed. Bone is palpable and not exposed.) Amount of bleeding with debridement: Mild Bleeding Controlled with: Compression and gauze Patient tolerated procedure: Patient tolerated procedure well Post-Debridement Measurements and Additional Note: Post-Debridement Measurements/Treatment WC - Nurse 1 - General Ulcer Assessment Start: 08/21/23 13:08 Freq: Status: Active Protocol: KATE Activity Type Activity Date Activity User E-sign Co-sign Detail Recorded Client Recorded Date Recorded By Document 08/21/23 13:11 DL Desktop 08/21/23 13:22 DL 08/21/23 13:11 WC - Today's Visit Information Type of service Follow-up Visit (Physician/MANAGED CARE COORDINATOR ) Arrival Mode Wheelchair Transfer Assistance Gerry Lift Patient Identification Verified (Name & Yes ) Patient Requires Transmission-Based No Precautions Height and Weight Body Mass Index (BMI) 41.1 BMI Classification Obese Vital Signs Temperature (97.8 F-99.1 F) 97.6 F L Temperature Source Temporal Pulse Rate (60-100) 78 Pulse Location Monitor Respiratory Rate (12-18) 18 Respiratory rate source Observation Blood Pressure (90/60-120/80) 176/98 H Blood Pressure Mean (mm Hg) 124 Source Monitor History Since Last Visit- (Skip if this is Patient's initial visit) Have you changed medications since your No last visit? Any new allergies or adverse reactions No Had a fall/change in ADL's that may No increase risk of falls Signs or symptoms of abuse and/or No neglect since last visit Have you been in the hospital since your No last visit? Has dressing in place as prescribed Yes Has compression in place as prescribed N/A Has offloadiing in place as prescribed Yes Experienced any changes in pain level or No management Pain Scale: 0-10 Numeric Is Patient Pain Free? Yes WC - Nurse 1 - General Ulcer Measurement Start: 08/21/23 13:08 Freq: Status: Active Protocol: Activity Type Activity Date Activity User E-sign Co-sign Detail Recorded Client Recorded Date Recorded By Document 08/21/23 13:11 DL Desktop 08/21/23 13:22 DL 08/21/23 13:11 Wound Center Nurse 1 #1 L Ischial -Current Size (cm) - Length 1 -Current Size (cm) - Width 0.8 -Current Size (cm) - Depth 0.8 -Total Square Cm 0.8 -Date of Last Picture (Recall this 08/21/23 field) -Photo Taken Yes -Tunneling No -Undermining/Tunneling No -Circular Undermining No -Exudate Amt Medium -Exudate Type Serosanguineous -Wound Margin Distinct, Outline Attached -Granulation Amt Large (67-100%) -Granulation Quality Red -Slough/Fibrin Yes -Necrosis Amt Small (1-33%) -Necrotic Tissue Type Adherent Slough -Texture (Chelsey-wound Skin Appearance) Assessed, Scarring -Moisture (Chelsey-wound Skin Appearance) Assessed, Maceration -Color (Chelsey-wound Skin Appearance) Assessed -Temperature (Chelsey-wound Skin No Abnormality Appearance) (Pt Warm) -Tenderness on Palpation (Chelsey-wound No Skin Appearance) -Ulcer Cleansing Soap and Water -Foul Odor after Cleansing No -Anesthetic Used 4% Lidocaine Solution WC - Nurse 2 - General Ulcer CM Notes Start: 08/21/23 13:08 Freq: Status: Active Protocol: Activity Type Activity Date Activity User E-sign Co-sign Detail Recorded Client Recorded Date Recorded By Document 08/21/23 14:00 MW Desktop 08/21/23 14:07 MW 08/21/23 14:00 Wound Center Nurse 2 #2 left lateral stump -Time 14:00 -Correct Patient Yes -Correct Side, Site, Position Yes -Correct Procedure Yes -Procedure Performed Yes -Type of Procedure Debridement -Clinical Debridement Subcutaneous -Tissue Removed Subcutaneous -Post Debridement (cm) - Length 0.7 -Post Debridement (cm) - Width 0.6 -Post Debridement (cm) - Depth 0.4 -Total Square (Post) (cm) 0.42 -Area of Debridement (cm) - Length 0.7 -Area of Debridement (cm) - Width 0.6 -Total Square (Area) (cm) 0.42 -Tunneling No -Undermining/Tunneling No -Debridement - Subq, 1st 20sq cm No #1 L Ischial -Time 14:06 -Correct Patient Yes -Correct Side, Site, Position Yes -Correct Procedure Yes -Procedure Performed Yes -Type of Procedure Debridement -Clinical Debridement Muscle / Fascia -Tissue Removed Muscle,Fascia -Post Debridement (cm) - Length 1.0 -Post Debridement (cm) - Width 0.8 -Post Debridement (cm) - Depth 0.8 -Total Square (Post) (cm) 0.80 -Area of Debridement (cm) - Length 1.0 -Area of Debridement (cm) - Width 0.8 -Total Square (Area) (cm) 0.80 -Tunneling No -Undermining/Tunneling No -Circular Undermining No -Wound/Ulcer Outcome Not Healed -Ulcer Cleansing Rinsed/ Irrigated with Saline -Foul Odor after Cleansing No -Bioengineered Tissue No -Bleeding Controlled with Pressure -Treatment Response Procedure Tolerated Well -Offloading No -Debridement - Muscle / Fascia, 1st Yes 20sq cm Pain Scale: 0-10 Numeric Is Patient Pain Free? Yes WC - Nurse 3 - General Ulcer D/C NN Start: 08/21/23 13:08 Freq: Status: Active Protocol: Activity Type Activity Date Activity User E-sign Co-sign Detail Recorded Client Recorded Date Recorded By Document 08/21/23 14:15 DL Desktop 08/21/23 14:24 DL 08/21/23 14:15 Wound Care Center Nurse 3 #2 left lateral stump -Ulcer Cleansing Rinsed/ Irrigated with Saline -Foul Odor after Cleansing No -Primary Dressing Applied Aquacel AG 4x4, Mepilex Border -Aquacel AG 4x4 1 -Mepilex Border 1 #1 L Ischial -Ulcer Cleansing Rinsed/ Irrigated with Saline -Foul Odor after Cleansing No -Other Dressing aqaucel AG -Primary Dressing Covered/Secured with Dry Gauze, Secured with Tape Treatment Response Procedure Tolerated Well Pain Scale: 0-10 Numeric Is Patient Pain Free? Yes WC - Visit Discharge Discharge Condition Stable Ambulatory Status Wheelchair Additional Notification Nursing Home Care Facility Orders Sent Yes Additional Wound Wound debrided: #2 Left amputation stump. Laterality: Left Wound Grade/Stage: II. 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, stage 4: CODE(S): L89.324 - Pressure ulcer of left buttock, stage 4 (2) Non-healing wound of amputation stump: CODE(S): T87.89 - Other complications of amputation stump (3) Chronic kidney disease with end stage renal failure on dialysis: CODE(S): N18.6 - End stage renal disease; Z99.2 - Dependence on renal dialysis (4) DM type 2, goal HbA1c < 7%: CODE(S): E11.9 - Type 2 diabetes mellitus without complications (5) Community acquired MRSA infection: CODE(S): A49.02 - Methicillin resistant Staphylococcus aureus infection, unspecified site PLAN: Plan Continue wound care with Silver dressings daily to both the left ischial pressure sore and the new onset left amputation stump wound. The patient would benefit from going to surgery for an operative excision of the left ischial pressure sore. The surrounding skin is macerated from the drainage from the ulcer. A lot of abnormal bursal scar tissue is present. Suspect bone is involved. A partial ostectomy would also be done to look for osteomyelitis. Soft tissue and bone would be sent to Pathology for analysis to rule out carcinoma and to evaluate for osteomyelitis. Soft tissue and bone would be sent to Microbiology for culture. A positive culture would necessitate antibiotic therapy. Surgery would be done with a surgical observation overnight stay in the hospital. A VAC can be applied prior to discharge. As an outpatient it would be changed three times per week at 150 mmHg continuous suction. He is not sure if he is on a low air loss air mattress. He is unsure how old the cushion in his wheelchair is. Encouraged off loading and not sitting or laying on the ulcer area for long periods of time. If he is up in a wheelchair, he needs to shift/reposition every 20 minutes. Encouraged increased protein intake to help with wound healing. He would benefit from protein supplementation. He has ESRD and has dialysis . Any surgery in the future would be done on . Wound culture from 07/16/23 showed Proteus mirabilis, E. coli, Enterococcus gallinarum, and MRSA. He was treated with Vancomycin and Zosyn in the hospital. He was discharged on Linezolid and Augmentin and has finished them. Wound culture was done today on the left amputation stump wound. A positive culture will necessitate antibiotic therapy. Patient has diabetes mellitus. His HgbA1c from 08/09/23 was 6.4. For elective surgeries, the HgbA1c needs to be less than 8. Followup one week.
[2023-08-27 14:04] VITALS: BP 201/114; PULSE 83; RESP 18; TEMP 35.4; BMI 41.1
--- NOTE | 2023-08-27 14:57 | PN.PCM_ITS ---
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 He was recently admitted at [facility] from 07/16/23 to 07/19/23 for a cough, fever and chills. Patient was admitted for acutely infected chronic left ischial/sacral wound with concern for osteomyelitis, started on IV antibiotics. He has a history of ESRD on hemodialysis. History of failed kidney transplant, chronic s ystolic heart failure, hypertension, hyperlipidemia, diabetes mellitus type II, left AKA, and incomplete paraplegia. He resides at [facility] where he receives his hemodialysis. He had an operative debridement of his left ischial ulcer at [facility] 2 years ago, per the patient. CT of abdomen and pelvis on 07/16/23, related to the ulcer showed There is a decubitus ulcer in the left gluteus with extension into and sclerotic and erosive involvement of the left initial tuberosity. This is concerning for osteomyelitis. Ischial wound culture obtained on 07/16/23 which was positive for Proteus mirabilis, Escherichia coli, Enterococcus gallinarum, and MRSA. ID was consulted and he was treated with Vancomycin and Zosyn IV He was discharged on Linezolid and Augmentin and has finished them. He has a new onset wound in the left amputation stump. Denies trauma. Left AKA wound culture from 08/22/23 positive for Proteus mirabilis. He was started on Augmentin, which was ordered through the [facility]. Today he denies fever, chills, nausea or vomiting. Patient has diabetes mellitus. His last HgbA1c from 08/09/23 is 6.4. For elective surgeries, his HgbA1c needs to be less than 8. Progress of Wound: Stable left ischial ulcer, surrounding skin and scar tissue is macerated from drainage. Left amputation stump ulcer with drainage. Cultures from 08/22/23 positive for Proteus mirabilis, will start him on Augmentin, which was ordered through his [facility]. Objective Data Objective Data Vital Signs: Vital Signs Temp Pulse Resp BP O2 Del Method 95.8 F L 83 18 201/114 H Room Air 08/27/23 14:04 08/27/23 14:04 08/27/23 14:04 08/27/23 14:04 08/27/23 14:04 Oxygen Delivery Method Room Air Weight: 302 lb 12.736 oz Body Mass Index (BMI) 41.1 Lab / Micro Data Micro: Microbiology 08/22/23 14:00 Wound - Below Knee Amputation Gram Stain - Final 08/22/23 14:00 Wound - Below Knee Amputation Wound Culture - Final Proteus mirabilis 08/22/23 14:00 Wound - Below Knee Amputation Anaerobic Culture - Final No growth in 5 days. Charges/Coding Procedures Integumentary [id number]: 00633 Marycarmen musc/fascia 20 sq cm/< (left ischial ulcer ICD-10 - L89.324, N18.6, E11.9, A49.02, T87.89) Multi Select Codes Integumentary Integumentary CPT Codes: 08726 Marycarmen subq tissue 20 sq cm/< (left AKA stump woun) Debridement Note Debridement Note Wound debrided: #1 Left ischial area. Laterality: Left Wound Grade/Stage: IV. Type of Debridement: Excisional debridement Anesthesia Used: 5% Lidocaine Gel Depth: Down to and including healthy tissue, in the subcutaneous layer and to muscle (bone is palpable and not exposed.) Percentage of wound debrided: 100 Instrument Used: 5mm curette Tissue Removed: subcutaneous tissue, muscle, senescent cells, bioburden Severity: Fat Layer Exposed (muscle is exposed. Bone is palpable and not exposed.) Amount of bleeding with debridement: Mild Bleeding Controlled with: Compression and gauze Patient tolerated procedure: Patient tolerated procedure well Post-Debridement Measurements and Additional Note: Post-Debridement Measurements/Treatment - Nurse 1 - General Ulcer Assessment Start: 08/21/23 13:08 Freq: Status: Active Protocol: MEHRAN.LOWEXT Activity Type Activity Date Activity User E-sign Co-sign Detail Recorded Client Recorded Date Recorded By Document 08/21/23 13:11 DL Desktop 08/21/23 13:22 DL Document 08/27/23 14:04 KW Desktop 08/27/23 14:08 KW Edit Result 08/27/23 14:04 KW (1) Desktop 08/27/23 14:56 RB (1) Arrival Mode => Wheelchair Transfer Assistance => Gerry Lift 08/21/23 08/27/23 13:11 14:04 WC - Today's Visit Information Type of service Follow-up Visit Follow-up Visit (Physician/MILLING GENERAL SUPERINTENDENT (Physician/MILLING GENERAL SUPERINTENDENT ) ) Arrival Mode Wheelchair Wheelchair Transfer Assistance Gerry Lift Gerry Lift Patient Identification Verified (Name & Yes Yes ) Patient Requires Transmission-Based No Precautions Finger Stick Blood Sugar(mg/dl) (if 102 indicated): Blood Sugar Stated by Patient Height and Weight Body Mass Index (BMI) 41.1 41.1 BMI Classification Obese Obese Vital Signs Temperature (97.8 F-99.1 F) 97.6 F L 95.8 F L Temperature Source Temporal Temporal Pulse Rate (60-100) 78 83 Pulse Location Monitor Monitor Respiratory Rate (12-18) 18 18 Respiratory rate source Observation Observation Oxygen Delivery Method Room Air Blood Pressure (90/60-120/80) 176/98 H 201/114 H Blood Pressure Mean (mm Hg) 124 143 Source Monitor Monitor Position Semi-Fowlers Blood Pressure Location Left Arm History Since Last Visit- (Skip if this is Patient's initial visit) Have you changed medications since your No No last visit? Any new allergies or adverse reactions No No Had a fall/change in ADL's that may No No increase risk of falls Signs or symptoms of abuse and/or No No neglect since last visit Have you been in the hospital since your No No last visit? Has dressing in place as prescribed Yes Yes Has compression in place as prescribed N/A N/A Has offloadiing in place as prescribed Yes N/A Experienced any changes in pain level or No No management Left Footwear Regular Shoe Right Footwear Regular Shoe Pain Scale: 0-10 Numeric Is Patient Pain Free? Yes Yes - Nurse 1 - General Ulcer Measurement Start: 08/21/23 13:08 Freq: Status: Active Protocol: Activity Type Activity Date Activity User E-sign Co-sign Detail Recorded Client Recorded Date Recorded By Document 08/21/23 13:11 DL Desktop 08/21/23 13:22 DL Document 08/27/23 14:04 KW Desktop 08/27/23 14:08 KW 08/21/23 08/27/23 13:11 14:04 Wound Center Nurse 1 #2 left lateral stump -Current Size (cm) - Length 0.3 -Current Size (cm) - Width 0.5 -Current Size (cm) - Depth 0.4 -Total Square Cm 0.15 -Date of Last Picture (Recall this 08/27/23 field) -Photo Taken Yes -Exudate Amt Medium -Exudate Type Purulent -Wound Margin Distinct, Outline Attached -Granulation Amt Large (67-100%) -Granulation Quality Red -Texture (Chelsey-wound Skin Appearance) Assessed -Moisture (Chelsey-wound Skin Appearance) Assessed -Color (Chelsey-wound Skin Appearance) Assessed -Temperature (Chelsey-wound Skin No Abnormality Appearance) (Pt Warm) -Ulcer Cleansing Soap and Water -Foul Odor after Cleansing No -Anesthetic Used 5% Lidocaine Gel #1 L Ischial -Current Size (cm) - Length 1 1.5 -Current Size (cm) - Width 0.8 2 -Current Size (cm) - Depth 0.8 0.5 -Total Square Cm 0.8 3.0 -Date of Last Picture (Recall this 08/21/23 08/27/23 field) -Photo Taken Yes Yes -Tunneling No -Undermining/Tunneling No -Circular Undermining No -Exudate Amt Medium Medium -Exudate Type Serosanguineous Serosanguineous -Wound Margin Distinct, Thickened Outline Attached -Granulation Amt Large (67-100%) Large (67-100%) -Granulation Quality Red Pale,[place] -Slough/Fibrin Yes -Necrosis Amt Small (1-33%) -Necrotic Tissue Type Adherent Slough -Texture (Chelsey-wound Skin Appearance) Assessed, Assessed Scarring -Moisture (Chelsey-wound Skin Appearance) Assessed, Maceration Maceration -Color (Chelsey-wound Skin Appearance) Assessed Assessed -Temperature (Chelsey-wound Skin No Abnormality No Abnormality Appearance) (Pt Warm) (Pt Warm) -Tenderness on Palpation (Chelsey-wound No Skin Appearance) -Ulcer Cleansing Soap and Water Soap and Water -Foul Odor after Cleansing No -Anesthetic Used 4% Lidocaine 5% Lidocaine Solution Gel WC - Nurse 2 - General Ulcer CM Notes Start: 08/21/23 13:08 Freq: Status: Active Protocol: Activity Type Activity Date Activity User E-sign Co-sign Detail Recorded Client Recorded Date Recorded By Document 08/21/23 14:00 MW Desktop 08/21/23 14:07 MW Edit Result 08/21/23 14:00 MW (1) [id number] 02/15/24 06:48 PL Document 08/27/23 14:20 JF Laptop 08/27/23 14:33 JF (1) #2 left lateral stump - Debridement - Subq, 1st 20sq cm No => Yes 08/21/23 08/27/23 14:00 14:20 Wound Center Nurse 2 #2 left lateral stump -Time 14:00 14:22 -Correct Patient Yes Yes -Correct Side, Site, Position Yes Yes -Correct Procedure Yes Yes -Procedure Performed Yes Yes -Type of Procedure Debridement Debridement -Clinical Debridement Subcutaneous Subcutaneous -Tissue Removed Subcutaneous Subcutaneous -Post Debridement (cm) - Length 0.7 0.7 -Post Debridement (cm) - Width 0.6 1.1 -Post Debridement (cm) - Depth 0.4 0.2 -Total Square (Post) (cm) 0.42 0.77 -Area of Debridement (cm) - Length 0.7 0.7 -Area of Debridement (cm) - Width 0.6 1.1 -Total Square (Area) (cm) 0.42 0.77 -Tunneling No No -Undermining/Tunneling No No -Circular Undermining No -Wound/Ulcer Outcome Not Healed -Ulcer Cleansing Rinsed/ Irrigated with Saline -Foul Odor after Cleansing No -Bioengineered Tissue No -Bleeding Controlled with Pressure -Treatment Response Procedure Tolerated Well -Offloading No -Assistive Device(s) Wheelchair -Pressure Reduction Wheelchair cushion, Specialty bed -Debridement - Subq, 1st 20sq cm Yes Yes #1 L Ischial -Time 14:06 14:24 -Correct Patient Yes Yes -Correct Side, Site, Position Yes Yes -Correct Procedure Yes Yes -Procedure Performed Yes Yes -Type of Procedure Debridement Debridement -Clinical Debridement Muscle / Fascia Muscle / Fascia -Tissue Removed Muscle,Fascia Muscle,Fascia -Post Debridement (cm) - Length 1.0 3.0 -Post Debridement (cm) - Width 0.8 1.8 -Post Debridement (cm) - Depth 0.8 0.6 -Total Square (Post) (cm) 0.80 5.40 -Area of Debridement (cm) - Length 1.0 3.0 -Area of Debridement (cm) - Width 0.8 1.8 -Total Square (Area) (cm) 0.80 5.40 -Tunneling No No -Undermining/Tunneling No No -Circular Undermining No No -Wound/Ulcer Outcome Not Healed Not Healed -Ulcer Cleansing Rinsed/ Rinsed/ Irrigated with Irrigated with Saline Saline -Foul Odor after Cleansing No No -Bioengineered Tissue No No -Bleeding Controlled with Pressure Pressure -Treatment Response Procedure Procedure Tolerated Well Tolerated Well -Offloading No No -Pressure Reduction Wheelchair cushion -Debridement - Muscle / Fascia, 1st Yes Yes 20sq cm Pain Scale: 0-10 Numeric Is Patient Pain Free? Yes Yes - Nurse 3 - General Ulcer D/C NN Start: 08/21/23 13:08 Freq: Status: Active Protocol: Activity Type Activity Date Activity User E-sign Co-sign Detail Recorded Client Recorded Date Recorded By Document 08/21/23 14:15 DL Desktop 08/21/23 14:24 DL Document 08/27/23 14:54 RB Desktop 08/27/23 14:56 RB 08/21/23 08/27/23 14:15 14:54 Wound Care Center Nurse 3 #2 left lateral stump -Ulcer Cleansing Rinsed/ Irrigated with Saline -Foul Odor after Cleansing No -Primary Dressing Applied Aquacel AG 4x4, Aquacel AG 4x4 Mepilex Border -Other Dressing abd -Primary Dressing Covered/Secured with Dry Gauze, Secured with Tape -Aquacel AG 4x4 1 1 -Mepilex Border 1 #1 L Ischial -Ulcer Cleansing Rinsed/ Irrigated with Saline -Foul Odor after Cleansing No -Other Dressing aqaucel AG aquacel ag -Primary Dressing Covered/Secured with Dry Gauze, Dry Gauze, Secured with Secured with Tape Tape -Other Covering abd Treatment Response Procedure Procedure Tolerated Well Tolerated Well Pain Scale: 0-10 Numeric Is Patient Pain Free? Yes Yes WC - Visit Discharge Discharge Condition Stable Stable Ambulatory Status Wheelchair Wheelchair Transportation Private Auto Medication Reconcilliation completed & No provided to patient/care provider Clinical Summary of Care Provided Yes Notes: gerry lift per 3 assists Additional Notification Nursing Home Care Facility Orders Sent Yes Additional Wound Wound debrided: #2 Left amputation stump. Laterality: Left Wound Grade/Stage: Grade II. 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, stage 4: CODE(S): L89.324 - Pressure ulcer of left buttock, stage 4 (2) Non-healing wound of amputation stump: CODE(S): T87.89 - Other complications of amputation stump (3) Chronic kidney disease with end stage renal failure on dialysis: CODE(S): N18.6 - End stage renal disease; Z99.2 - Dependence on renal dialysis (4) DM type 2, goal HbA1c < 7%: CODE(S): E11.9 - Type 2 diabetes mellitus without complications (5) Community acquired MRSA infection: CODE(S): A49.02 - Methicillin resistant Staphylococcus aureus infection, unspecified site PLAN: Plan Continue wound care with Silver dressings daily to both the left ischial press ure sore and the left amputation stump wound. Wash areas daily with soap and water at the time of the dressing changes. Encouraged off loading and not sitting or laying on the ulcer area for long p eriods of time. If he is up in a wheelchair, he needs to shift/reposition every 20 minutes. Encouraged increased protein intake to help with wound healing. He would benefit from protein supplementation. He has ESRD and has dialysis T--Sat. Any surgery in the future would be done on . Wound culture from 07/16/23 showed Proteus mirabilis, E. coli, Enterococcus gallinarum, and MRSA. He was treated with Vancomycin and Zosyn in the hospital. He was discharged on Linezolid and Augmentin and has finished them. Left AKA wound culture from 08/22/23 positive for Proteus mirabilis. He was started on Augmentin 875/125 BID x 14 days with 1 RF, which was ordered through the F. Patient has diabetes mellitus. His HgbA1c from 08/09/23 was 6.4. For elective surgeries, the HgbA1c needs to be less than 8. Followup two weeks. From Dr. Villagran's previous note: The patient would benefit from going to surgery for an operative excision of the left ischial pressure sore. The surrounding skin is macerated from the drainage from the ulcer. A lot of abnormal bursal scar tissue is present. Suspect bone is involved. A partial ostectomy would also be done to look for osteomyelitis. Soft tissue and bone would be sent to Pathology for analysis to rule out carcinoma and to evaluate for osteomyelitis. Soft tissue and bone would be sent to Microbiology for culture. A positive culture would necessitate antibiotic therapy. Surgery would be done with a surgical observation overnight stay in the hospital. A VAC can be applied prior to discharge. As an outpatient it would be changed three times per week at 150 mmHg continuous suction.
== END 2023-09-05 23:59 | disposition home or self-care (01) ==
LOC: WC 13:30
PROVIDERS: PCP Internal Medicine; Referring Provider Nurse Practitioner Family; Visit Provider Nurse Practitioner Family
DX: L89.324 Pressure ulcer of left buttock, stage 4 (principal); G82.22 Paraplegia, incomplete; I13.2 Hypertensive heart and chronic kidney disease with heart failure and with stage 5 chronic kidney disease, or end stage renal disease; T87.89 Other complications of amputation stump; Z99.2 Dependence on renal dialysis; I50.22 Chronic systolic (congestive) heart failure; E11.22 Type 2 diabetes mellitus with diabetic chronic kidney disease; N18.6 End stage renal disease; B95.62 Methicillin resistant Staphylococcus aureus infection as the cause of diseases classified elsewhere; B96.4 Proteus (mirabilis) (morganii) as the cause of diseases classified elsewhere; E78.5 Hyperlipidemia, unspecified; Z94.0 Kidney transplant status
CPT/HCPCS: 11042; 11043; 87070; 87075; 87077; 87186; 87205

== ENCOUNTER → 2023-09-03 | Outpatient (REF) | payer MEDICARE, MEDICAID, SELFPAY ==
[2023-09-03 13:39] LABS: Hemoglobin A1c 6.4 % (3.8-5.6)
== END ==
LOC: OLS.SW 05:00
PROVIDERS: PCP Internal Medicine; Visit Provider Internal Medicine
DX: E11.9 Type 2 diabetes mellitus without complications (principal)
CPT/HCPCS: 36415; 83036

== ENCOUNTER → 2023-09-11 | Outpatient (REF) | payer MEDICARE, MEDICAID, SELFPAY ==
[2023-09-11 07:55] LABS: Hemoglobin 10.9 g/dL (13.0-16.5); Mean Corp Hgb Conc 31.1 g/dL (32-36); Mean Corpuscular Hgb 29.8 pg (27.0-32.0); Mean Corpuscular Volume 95.6 fL (80-94); Mean Platelet Vol. 11.3 fl (6.2-12.0); Platelet Count 138 K/mm3 (150-450); RBC Distribution Width CV 14.6 % (11.6-14.6); RBC Distribution Width SD 50.4 fl (35.1-43.9); Red Blood Count 3.66 M/mm3 (4.6-6.2)
[2023-09-11 08:27] LABS: Color, Urine Brown (Yellow); Glucose, Dipstick Normal (Normal); Ketone-Dipstick 5 mg/dl (Negative); Leukocyte Esterase-Dipstick 25 /ul (Negative); Nitrite-Dipstick Negative (Negative); Occult Blood-Urine 150 /ul (Negative); Protein-Dipstick 500 mg/dl (Negative); Specific Gravity, Urine 1.015 (1.002-1.030); Urine Bilirubin Dipstick Negative (Negative); Urine Clarity Turbid (Clear); Urine Urobilinogen Normal (Normal)
== END ==
LOC: OLS.SW 05:00
PROVIDERS: PCP Internal Medicine; Visit Provider Internal Medicine
DX: R31.9 Hematuria, unspecified (principal)
CPT/HCPCS: 36415; 81002; 85027

== ENCOUNTER → 2023-09-25 | Outpatient (REF) | payer MEDICARE, MEDICAID, SELFPAY ==
[2023-09-25 07:41] LABS: Bacteria 0 SEEN /hpf (None Seen); Mucous, Urine 0 SEEN /hpf (<or=2+); Squamous Epithelial Cells - UA 0 SEEN /hpf (0-5)
[2023-09-25 08:05] LABS: Color, Urine Brown (Yellow); Glucose, Dipstick Normal (Normal); Ketone-Dipstick Negative (Negative); Leukocyte Esterase-Dipstick 500 /ul (Negative); Nitrite-Dipstick Negative (Negative); Occult Blood-Urine 250 /ul (Negative); Protein-Dipstick 500 mg/dl (Negative); Specific Gravity, Urine 1.015 (1.002-1.030); Urine Bilirubin Dipstick Negative (Negative); Urine Clarity Turbid (Clear); Urine Urobilinogen Normal (Normal)
[2023-09-25 08:11] LABS: Red Blood Cells-Urine > 100 SEEN /hpf (0-5); White Blood Cells >100 SEEN /hpf (0-5)
== END ==
LOC: OLS.SW 05:00
PROVIDERS: PCP Internal Medicine; Visit Provider Internal Medicine
DX: R31.9 Hematuria, unspecified (principal)
CPT/HCPCS: 81001; 87077; 87086; 87088; 87186

== ENCOUNTER 2023-10-02 13:30 | Outpatient (RCR) | payer MEDICARE, MEDICAID, SELFPAY ==
[2023-09-06 00:29] VITALS: BP 201/114; PULSE 83; RESP 18; TEMP 35.4; BMI 41.1
[2023-09-10 14:06] VITALS: BP 210/96; PULSE 80; RESP 18; TEMP 36.4; BMI 41.1
--- NOTE | 2023-09-10 15:24 | PCM.WC.PN ---
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 He was recently admitted at [facility] from 07/16/23 to 07/19/23 for a cough, fever and chills. Patient was admitted for acutely infected chronic left ischial/sacral wound with concern for osteomyelitis, started on IV antibiotics. He has a history of ESRD on hemodialysis. History of failed kidney transplant, chronic systolic heart failure, hypertension, hyperlipidemia, diabetes mellitus type II, left AKA, and incomplete paraplegia. He resides at [facility] where he receives his hemodialysis. He had an operative debridement of his left ischial ulcer at [facility] 2 years ago, per the patient. CT of abdomen and pelvis on 07/16/23, related to the ulcer showed There is a decubitus ulcer in the left gluteus with extension into and sclerotic and erosive involvement of the left initial tuberosity. This is concerning for osteomyelitis. Ischial wound culture obtained on 07/16/23 which was positive for Proteus mirabilis, Escherichia coli, Enterococcus gallinarum, and MRSA. ID was consulted and he was treated with Vancomycin and Zosyn IV He was discharged on Linezolid and Augmentin and has finished them. He now has a wound in the left amputation stump. Denies trauma. Left AKA wound culture from 08/22/23 positive for Proteus mirabilis. He was started on Augmentin, which was ordered through the [facility]. Today he denies fever, chills, nausea or vomiting. Patient has diabetes mellitus. His last HgbA1c from 08/09/23 is 6.4. For elective surgeries, his HgbA1c needs to be less than 8. Progress of Wound: Stable left ischial ulcer, thickened scar tissue surrounding the ulcer. Left amputation stump wound had a scabbed area over the ulcer, that easily was removed. The overall ulcer is smaller in size. Objective Data Objective Data Vital Signs: Vital Signs Temp Pulse Resp BP O2 Del Method 97.5 F L 80 18 210/96 H Room Air 09/10/23 14:06 09/10/23 14:06 09/10/23 14:06 09/10/23 14:06 09/10/23 14:06 Oxygen Delivery Method Room Air Weight: 302 lb 12.736 oz Body Mass Index (BMI) 41.1 Charges/Coding Procedures Integumentary 111xxx-113xx: 37635 Marycarmen musc/fascia 20 sq cm/< (left ischial ulcer ICD-10 - L89.324, N18.6, E11.9, A49.02, T87.89) Multi Select Codes Integumentary Integumentary CPT Codes: 15442 Marycarmen subq tissue 20 sq cm/< (Left lateral stump ) Debridement Note Debridement Note Wound debrided: #1 Left ischial area. Laterality: Left Wound Grade/Stage: IV. Type of Debridement: Excisional debridement Anesthesia Used: 5% Lidocaine Gel Depth: Down to and including healthy tissue, in the subcutaneous layer and to muscle (bone is palpable and not exposed.) Percentage of wound debrided: 100 Instrument Used: 5mm curette Tissue Removed: subcutaneous tissue, muscle, senescent cells, bioburden Severity: Fat Layer Exposed (muscle is exposed. Bone is palpable and not exposed.) Amount of bleeding with debridement: Mild Bleeding Controlled with: Compression and gauze Patient tolerated procedure: Patient tolerated procedure well Post-Debridement Measurements and Additional Note: Post-Debridement Measurements/Treatment - Nurse 1 - General Ulcer Assessment Start: 09/10/23 14:06 Freq: Status: Active Protocol: KATE Activity Type Activity Date Activity User E-sign Co-sign Detail Recorded Client Recorded Date Recorded By Document 09/10/23 14:06 KW Desktop 09/10/23 14:18 KW 09/10/23 14:06 - Today's Visit Information Type of service Follow-up Visit (Physician/GRIT REMOVAL OPERATOR ) Arrival Mode Wheelchair Transfer Assistance Gerry Lift Patient Identification Verified (Name & Yes ) Finger Stick Blood Sugar(mg/dl) (if 191 indicated): Blood Sugar Stated by Patient Height and Weight Body Mass Index (BMI) 41.1 BMI Classification Obese Vital Signs Temperature (97.8 F-99.1 F) 97.5 F L Temperature Source Temporal Pulse Rate (60-100) 80 Pulse Location Monitor Respiratory Rate (12-18) 18 Respiratory rate source Observation Oxygen Delivery Method Room Air Blood Pressure (90/60-120/80) 210/96 H Blood Pressure Mean (mm Hg) 134 Source Monitor Position Sitting Blood Pressure Location Left Forearm History Since Last Visit- (Skip if this is Patient's initial visit) Have you changed medications since your No last visit? Any new allergies or adverse reactions No Had a fall/change in ADL's that may No increase risk of falls Signs or symptoms of abuse and/or No neglect since last visit Have you been in the hospital since your No last visit? Has dressing in place as prescribed Yes Has compression in place as prescribed N/A Has offloadiing in place as prescribed N/A Experienced any changes in pain level or No management Left Footwear No Footwear Right Footwear Regular Shoe Pain Scale: 0-10 Numeric Is Patient Pain Free? Yes MEHRAN - Nurse 1 - General Ulcer Measurement Start: 09/10/23 14:06 Freq: Status: Active Protocol: Activity Type Activity Date Activity User E-sign Co-sign Detail Recorded Client Recorded Date Recorded By Document 09/10/23 14:06 KW Desktop 09/10/23 14:18 KW 09/10/23 14:06 Wound Center Nurse 1 #2 left lateral stump -Current Size (cm) - Length 0.1 -Current Size (cm) - Width 0.1 -Current Size (cm) - Depth 0.1 -Total Square Cm 0.01 -Temperature (Chelsey-wound Skin No Abnormality Appearance) (Pt Warm) -Ulcer Cleansing Rinsed/ Irrigated with Saline -Anesthetic Used 5% Lidocaine Gel #1 L Ischial -Current Size (cm) - Length 0.5 -Current Size (cm) - Width 0.7 -Current Size (cm) - Depth 0.5 -Total Square Cm 0.35 -Granulation Amt Large (67-100%) -Granulation Quality [place] -Necrosis Amt Small (1-33%) -Necrotic Tissue Type Adherent Slough -Texture (Chelsey-wound Skin Appearance) Assessed -Moisture (Chelsey-wound Skin Appearance) Assessed, Maceration -Color (Chelsey-wound Skin Appearance) Assessed -Temperature (Chelsey-wound Skin No Abnormality Appearance) (Pt Warm) -Ulcer Cleansing Soap and Water -Foul Odor after Cleansing No -Anesthetic Used 4% Lidocaine Solution MEHRAN - Nurse 2 - General Ulcer CM Notes Start: 09/10/23 14:06 Freq: Status: Active Protocol: Activity Type Activity Date Activity User E-sign Co-sign Detail Recorded Client Recorded Date Recorded By Document 09/10/23 14:59 Laptop 09/10/23 15:02 09/10/23 14:59 Wound Center Nurse 2 #2 left lateral stump -Time 15:00 -Correct Patient Yes -Correct Side, Site, Position Yes -Correct Procedure Yes -Procedure Performed Yes -Type of Procedure Debridement -Clinical Debridement Subcutaneous -Tissue Removed Subcutaneous -Post Debridement (cm) - Length 0.6 -Post Debridement (cm) - Width 0.7 -Post Debridement (cm) - Depth 0.3 -Total Square (Post) (cm) 0.42 -Area of Debridement (cm) - Length 0.6 -Area of Debridement (cm) - Width 0.7 -Total Square (Area) (cm) 0.42 -Tunneling No -Undermining/Tunneling No -Circular Undermining No -Wound/Ulcer Outcome Not Healed -Ulcer Cleansing Rinsed/ Irrigated with Saline -Foul Odor after Cleansing No -Bioengineered Tissue No -Bleeding Controlled with Pressure -Treatment Response Procedure Tolerated Well -Offloading No -Pressure Reduction Wheelchair cushion -Debridement - Subq, 1st 20sq cm Yes #1 L Ischial -Time 15:00 -Correct Patient Yes -Correct Side, Site, Position Yes -Correct Procedure Yes -Procedure Performed Yes -Type of Procedure Debridement -Clinical Debridement Muscle / Fascia -Tissue Removed Muscle,Fascia -Post Debridement (cm) - Length 1.7 -Post Debridement (cm) - Width 1.4 -Post Debridement (cm) - Depth 0.6 -Total Square (Post) (cm) 2.38 -Area of Debridement (cm) - Length 1.7 -Area of Debridement (cm) - Width 1.4 -Total Square (Area) (cm) 2.38 -Tunneling No -Undermining/Tunneling No -Circular Undermining No -Wound/Ulcer Outcome Not Healed -Ulcer Cleansing Rinsed/ Irrigated with Saline -Foul Odor after Cleansing No -Bioengineered Tissue No -Bleeding Controlled with Pressure -Treatment Response Procedure Tolerated Well -Offloading No -Debridement - Muscle / Fascia, 1st Yes 20sq cm Pain Scale: 0-10 Numeric Is Patient Pain Free? Yes WC - Nurse 3 - General Ulcer D/C NN Start: 09/10/23 14:06 Freq: Status: Active Protocol: Activity Type Activity Date Activity User E-sign Co-sign Detail Recorded Client Recorded Date Recorded By Document 09/10/23 15:06 Laptop 09/10/23 15:08 09/10/23 15:06 Wound Care Center Nurse 3 #2 left lateral stump -Primary Dressing Applied Mepilex Border, NonAdherent Contact Layer, Promogran Yecenia Matter -Mepilex Border 1 -Promogran Yecenia Matter 1 #1 L Ischial -Primary Dressing Applied Aquacel AG 4x4 -Primary Dressing Covered/Secured with Dry Gauze, Secured with Tape -Aquacel AG 4x4 1 Treatment Response Procedure Tolerated Well Pain Scale: 0-10 Numeric Is Patient Pain Free? Yes Teaching: Wound Center Dressing Your Wound -Person Taught Patient -Teaching Method Discussion -Response to teaching Verbalize understanding WC - Visit Discharge Discharge Condition Stable Ambulatory Status Wheelchair Medication Reconcilliation completed & No provided to patient/care provider Clinical Summary of Care Provided Yes Additional Wound Wound debrided: #2 Left amputation stump. Laterality: Left Wound Grade/Stage: Grade II. 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, stage 4: CODE(S): L89.324 - Pressure ulcer of left buttock, stage 4 (2) Non-healing wound of amputation stump: CODE(S): T87.89 - Other complications of amputation stump (3) Chronic kidney disease with end stage renal failure on dialysis: CODE(S): N18.6 - End stage renal disease; Z99.2 - Dependence on renal dialysis (4) DM type 2, goal HbA1c < 7%: CODE(S): E11.9 - Type 2 diabetes mellitus without complications (5) Community acquired MRSA infection: CODE(S): A49.02 - Methicillin resistant Staphylococcus aureus infection, unspecified site PLAN: Plan Wound care - Left stump start moistened Y[place] covered with adaptic and topped with gauze daily after washing with soap and water. Left ischial ulcer continue Aquacel-Ag covered with gauze/ABD daily after washing with soap and water. Encouraged off loading and not sitting or laying on the ulcer area for long periods of time. If he is up in a wheelchair, he needs to shift/reposition every 20 minutes. Encouraged increased protein intake to help with wound healing. He would benefit from protein supplementation. He has ESRD and has dialysis M,T,TH,F. Wound culture from 07/16/23 showed Proteus mirabilis, E. coli, Enterococcus gallinarum, and MRSA. He was treated with Vancomycin and Zosyn in the hospital. He was discharged on Linezolid and Augmentin and has finished them. Left AKA wound culture from 08/22/23 positive for Proteus mirabilis. He was started on Augmentin 875/125 BID x 14 days with 1 RF, which was ordered through the ECF. Patient has diabetes mellitus. His HgbA1c from 08/09/23 was 6.4. For elective surgeries, the HgbA1c needs to be less than 8. Followup two weeks. From Dr. Villagran's previous note: The patient would benefit from going to surgery for an operative excision of the left ischial pressure sore. The surrounding skin is macerated from the drainage from the ulcer. A lot of abnormal bursal scar tissue is present. Suspect bone is involved. A partial ostectomy would also be done to look for osteomyelitis. Soft tissue and bone would be sent to Pathology for analysis to rule out carcinoma and to evaluate for osteomyelitis. Soft tissue and bone would be sent to Microbiology for culture. A positive culture would necessitate antibiotic therapy. Surgery would be done with a surgical observation overnight stay in the hospital. A VAC can be applied prior to discharge. As an outpatient it would be changed three times per week at 150 mmHg continuous suction.
[2023-09-24 13:44] VITALS: BP 142/43; PULSE 82; RESP 18; TEMP 36.2; BMI 41.1
--- NOTE | 2023-09-24 15:41 | PCM.WC.PN ---
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 He was recently admitted at [facility] from 07/16/23 to 07/19/23 for a cough, fever and chills. Patient was admitted for acutely infected chronic left ischial/sacral wound with concern for osteomyelitis, started on IV antibiotics. He has a history of ESRD on hemodialysis. History of failed kidney transplant, chronic systolic heart failure, hypertension, hyperlipidemia, diabetes mellitus type II, left AKA, and incomplete paraplegia. He resides at [facility] where he receives his hemodialysis. He had an operative debridement of his left ischial ulcer at [facility] 2 years ago, per the patient. CT of abdomen and pelvis on 07/16/23, related to the ulcer showed There is a decubitus ulcer in the left gluteus with extension into and sclerotic and erosive involvement of the left initial tuberosity. This is concerning for osteomyelitis. Ischial wound culture obtained on 07/16/23 which was positive for Proteus mirabilis, Escherichia coli, Enterococcus gallinarum, and MRSA. ID was consulted and he was treated with Vancomycin and Zosyn IV He was discharged on Linezolid and Augmentin and has finished them. He now has a wound in the left amputation stump. Denies trauma. Left AKA wound culture from 08/22/23 positive for Proteus mirabilis. He was started on Augmentin, which was ordered through the [facility]. Today he denies fever, chills, nausea or vomiting. Patient has diabetes mellitus. His last HgbA1c from 08/09/23 is 6.4. For elective surgeries, his HgbA1c needs to be less than 8. Progress of Wound: Stable left ischial ulcer, thickened scar tissue surrounding the ulcer. Left amputation stump wound had a scabbed area over the ulcer, that easily was removed. The overall ulcer is smaller in size. Objective Data Objective Data Vital Signs: Vital Signs Temp Pulse Resp BP O2 Del Method 97.1 F L 82 18 142/43 H Room Air 09/24/23 13:44 09/24/23 13:44 09/24/23 13:44 09/24/23 13:44 09/10/23 14:06 Oxygen Delivery Method Room Air Weight: 302 lb 12.736 oz Body Mass Index (BMI) 41.1 Charges/Coding Procedures Integumentary 111xxx-113xx: 98227 Marycarmen musc/fascia 20 sq cm/< (left ischial ulcer ICD-10 - L89.324, N18.6, E11.9, A49.02, T87.89) Multi Select Codes Integumentary Integumentary CPT Codes: 86669 Marycarmen subq tissue 20 sq cm/< (left stump ulcer) Debridement Note Debridement Note Wound debrided: #1 Left ischial area. Laterality: Left Wound Grade/Stage: IV. Type of Debridement: Excisional debridement Anesthesia Used: 5% Lidocaine Gel Depth: Down to and including healthy tissue, in the subcutaneous layer and to muscle (bone is palpable and not exposed.) Percentage of wound debrided: 100 Instrument Used: - ([employer] aquasonic debrider) Tissue Removed: subcutaneous tissue, muscle, senescent cells, bioburden Severity: Fat Layer Exposed (muscle is exposed. Bone is palpable and not exposed.) Amount of bleeding with debridement: Mild Bleeding Controlled with: Compression and gauze Patient tolerated procedure: Patient tolerated procedure well Post-Debridement Measurements and Additional Note: Post-Debridement Measurements/Treatment - Nurse 1 - General Ulcer Assessment Start: 09/10/23 14:06 Freq: Status: Active Protocol: KATE Activity Type Activity Date Activity User E-sign Co-sign Detail Recorded Client Recorded Date Recorded By Document 09/10/23 14:06 KW Desktop 09/10/23 14:18 KW Document 09/24/23 13:44 RB Desktop 09/24/23 13:47 RB 09/10/23 09/24/23 14:06 13:44 - Today's Visit Information Type of service Follow-up Visit Follow-up Visit (Physician/TALENT ACQUISITION COORDINATOR (Physician/TALENT ACQUISITION COORDINATOR ) ) Arrival Mode Wheelchair Wheelchair Transfer Assistance Gerry Lift Gerry Lift Patient Identification Verified (Name & Yes Yes ) Patient Requires Transmission-Based No Precautions Finger Stick Blood Sugar(mg/dl) (if 191 indicated): Blood Sugar Stated by Patient Height and Weight Body Mass Index (BMI) 41.1 41.1 BMI Classification Obese Obese Vital Signs Temperature (97.8 F-99.1 F) 97.5 F L 97.1 F L Temperature Source Temporal Temporal Pulse Rate (60-100) 80 82 Pulse Location Monitor Monitor Respiratory Rate (12-18) 18 18 Respiratory rate source Observation Observation Oxygen Delivery Method Room Air Blood Pressure (90/60-120/80) 210/96 H 142/43 H Blood Pressure Mean (mm Hg) 134 76 Source Monitor Monitor Position Sitting Semi-Fowlers Blood Pressure Location Left Forearm Left Arm History Since Last Visit- (Skip if this is Patient's initial visit) Have you changed medications since your No No last visit? Any new allergies or adverse reactions No No Had a fall/change in ADL's that may No No increase risk of falls Signs or symptoms of abuse and/or No No neglect since last visit Have you been in the hospital since your No No last visit? Has dressing in place as prescribed Yes Yes Has compression in place as prescribed N/A No Has offloadiing in place as prescribed N/A No Experienced any changes in pain level or No No management Left Footwear No Footwear Right Footwear Regular Shoe Pain Scale: 0-10 Numeric Is Patient Pain Free? Yes Yes WC - Nurse 1 - General Ulcer Measurement Start: 09/10/23 14:06 Freq: Status: Active Protocol: Activity Type Activity Date Activity User E-sign Co-sign Detail Recorded Client Recorded Date Recorded By Document 09/10/23 14:06 KW Desktop 09/10/23 14:18 KW Document 09/24/23 13:44 RB Desktop 09/24/23 13:47 RB 09/10/23 09/24/23 14:06 13:44 Wound Center Nurse 1 #2 left lateral stump -Combined with other wound No -Current Size (cm) - Length 0.1 0.1 -Current Size (cm) - Width 0.1 1.1 -Current Size (cm) - Depth 0.1 0.1 -Total Square Cm 0.01 0.11 -Tunneling No -Undermining/Tunneling No -Circular Undermining No -Exudate Amt Small -Exudate Type Serosanguineous -Wound Margin Distinct, Outline Attached -Granulation Amt Large (67-100%) -Granulation Quality Martorell -Slough/Fibrin Yes -Necrosis Amt Medium (34-66%) -Necrotic Tissue Type Adherent Slough -Structure Exposed N/A -Texture (Chelsey-wound Skin Appearance) Assessed -Moisture (Chelsey-wound Skin Appearance) Assessed -Color (Chelsey-wound Skin Appearance) Assessed -Temperature (Chelsey-wound Skin No Abnormality No Abnormality Appearance) (Pt Warm) (Pt Warm) -Tenderness on Palpation (Chelsey-wound No Skin Appearance) -Ulcer Cleansing Rinsed/ Wound Cleanser Irrigated with Saline -Foul Odor after Cleansing No -Anesthetic Used 5% Lidocaine 5% Lidocaine Gel Gel #1 L Ischial -Combined with other wound No -Current Size (cm) - Length 0.5 0.5 -Current Size (cm) - Width 0.7 1 -Current Size (cm) - Depth 0.5 0.6 -Total Square Cm 0.35 0.5 -Tunneling No -Undermining/Tunneling No -Circular Undermining No -Exudate Amt Large -Exudate Type Serosanguineous -Wound Margin Thickened & Rolled Under -Granulation Amt Large (67-100%) Large (67-100%) -Granulation Quality Martorell Martorell -Slough/Fibrin Yes -Necrosis Amt Small (1-33%) Medium (34-66%) -Necrotic Tissue Type Adherent Slough Adherent Slough -Structure Exposed N/A -Texture (Chelsey-wound Skin Appearance) Assessed Scarring -Moisture (Chelsey-wound Skin Appearance) Assessed, Maceration Maceration -Color (Chelsey-wound Skin Appearance) Assessed Assessed -Temperature (Chelsey-wound Skin No Abnormality No Abnormality Appearance) (Pt Warm) (Pt Warm) -Tenderness on Palpation (Chelsey-wound No Skin Appearance) -Ulcer Cleansing Soap and Water Wound Cleanser -Foul Odor after Cleansing No No -Anesthetic Used 4% Lidocaine 5% Lidocaine Solution Gel WC - Nurse 2 - General Ulcer CM Notes Start: 09/10/23 14:06 Freq: Status: Active Protocol: Activity Type Activity Date Activity User E-sign Co-sign Detail Recorded Client Recorded Date Recorded By Document 09/10/23 14:59 Laptop 09/10/23 15:02 Document 09/24/23 13:58 Laptop 09/24/23 14:01 09/10/23 09/24/23 14:59 13:58 Wound Center Nurse 2 #2 left lateral stump -Time 15:00 13:58 -Correct Patient Yes Yes -Correct Side, Site, Position Yes Yes -Correct Procedure Yes Yes -Procedure Performed Yes Yes -Type of Procedure Debridement Debridement -Clinical Debridement Subcutaneous Subcutaneous -Tissue Removed Subcutaneous Subcutaneous -Post Debridement (cm) - Length 0.6 0.3 -Post Debridement (cm) - Width 0.7 0.6 -Post Debridement (cm) - Depth 0.3 0.2 -Total Square (Post) (cm) 0.42 0.18 -Area of Debridement (cm) - Length 0.6 0.3 -Area of Debridement (cm) - Width 0.7 0.6 -Total Square (Area) (cm) 0.42 0.18 -Tunneling No No -Undermining/Tunneling No No -Circular Undermining No No -Wound/Ulcer Outcome Not Healed Not Healed -Ulcer Cleansing Rinsed/ Rinsed/ Irrigated with Irrigated with Saline Saline -Foul Odor after Cleansing No No -Bioengineered Tissue No No -Bleeding Controlled with Pressure Pressure -Treatment Response Procedure Procedure Tolerated Well Tolerated Well -Offloading No No -Pressure Reduction Wheelchair cushion -Debridement - Subq, 1st 20sq cm Yes Yes #1 L Ischial -Time 15:00 14:00 -Correct Patient Yes Yes -Correct Side, Site, Position Yes Yes -Correct Procedure Yes Yes -Procedure Performed Yes Yes -Type of Procedure Debridement Debridement -Clinical Debridement Muscle / Fascia Muscle / Fascia -Tissue Removed Muscle,Fascia Muscle,Fascia -Post Debridement (cm) - Length 1.7 2.5 -Post Debridement (cm) - Width 1.4 2.0 -Post Debridement (cm) - Depth 0.6 0.6 -Total Square (Post) (cm) 2.38 5.00 -Area of Debridement (cm) - Length 1.7 2.5 -Area of Debridement (cm) - Width 1.4 2.0 -Total Square (Area) (cm) 2.38 5.00 -Tunneling No No -Undermining/Tunneling No No -Circular Undermining No No -Wound/Ulcer Outcome Not Healed Not Healed -Ulcer Cleansing Rinsed/ Rinsed/ Irrigated with Irrigated with Saline Saline -Foul Odor after Cleansing No No -Bioengineered Tissue No No -Bleeding Controlled with Pressure Pressure -Treatment Response Procedure Procedure Tolerated Well Tolerated Well -Offloading No No -Pressure Reduction Wheelchair cushion -Debridement - Muscle / Fascia, 1st Yes Yes 20sq cm Pain Scale: 0-10 Numeric Is Patient Pain Free? Yes Yes WC - Nurse 3 - General Ulcer D/C NN Start: 09/10/23 14:06 Freq: Status: Active Protocol: Activity Type Activity Date Activity User E-sign Co-sign Detail Recorded Client Recorded Date Recorded By Document 09/10/23 15:06 Laptop 09/10/23 15:08 Document 09/24/23 14:55 RB Desktop 09/24/23 14:56 RB 09/10/23 09/24/23 15:06 14:55 Wound Care Center Nurse 3 #2 left lateral stump -Primary Dressing Applied Mepilex Border, NonAdherent NonAdherent Contact Layer Contact Layer, Promogran Yecenia Matter -Other Dressing hydrogel -Primary Dressing Covered/Secured with Dry Gauze, Secured with Tape -Mepilex Border 1 -Promogran Yecenia Matter 1 #1 L Ischial -Ulcer Cleansing Rinsed/ Irrigated with Saline -Primary Dressing Applied Aquacel AG 4x4 Aquacel AG 4x4 -Other Dressing abd -Primary Dressing Covered/Secured with Dry Gauze, Secured with Secured with Tape Tape -Aquacel AG 4x4 1 1 Treatment Response Procedure Procedure Tolerated Well Tolerated Well Pain Scale: 0-10 Numeric Is Patient Pain Free? Yes Yes Teaching: Wound Center Dressing Your Wound -Person Taught Patient -Teaching Method Discussion -Response to teaching Verbalize understanding WC - Visit Discharge Discharge Condition Stable Stable Ambulatory Status Wheelchair Wheelchair Transportation NH transport Medication Reconcilliation completed & No No provided to patient/care provider Clinical Summary of Care Provided Yes Yes Additional Wound Wound debrided: #2 Left amputation stump. Laterality: Left Wound Grade/Stage: Grade II. 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, stage 4: CODE(S): L89.324 - Pressure ulcer of left buttock, stage 4 (2) Non-healing wound of amputation stump: CODE(S): T87.89 - Other complications of amputation stump (3) Chronic kidney disease with end stage renal failure on dialysis: CODE(S): N18.6 - End stage renal disease; Z99.2 - Dependence on renal dialysis (4) DM type 2, goal HbA1c < 7%: CODE(S): E11.9 - Type 2 diabetes mellitus without complications (5) Community acquired MRSA infection: CODE(S): A49.02 - Methicillin resistant Staphylococcus aureus infection, unspecified site PLAN: Plan Wound care - Left stump stop moistened Yecenia and start Collagen Hydrogel covered with adaptic and topped with gauze daily after washing with soap and water. Left ischial ulcer continue Aquacel-Ag covered with gauze/ABD daily after washing with soap and water. Encouraged off loading and not sitting or laying on the ulcer area for long periods of time. If he is up in a wheelchair, he needs to shift/reposition every 20 minutes. Encouraged increased protein intake to help with wound healing. He would benefit from protein supplementation. He has ESRD and has dialysis M,T,TH,F. Wound culture from 07/16/23 showed Proteus mirabilis, E. coli, Enterococcus gallinarum, and MRSA. He was treated with Vancomycin and Zosyn in the hospital. He was discharged on Linezolid and Augmentin and has finished them. Left AKA wound culture from 08/22/23 positive for Proteus mirabilis. He was started on Augmentin 875/125 BID x 14 days with 1 RF, which was ordered through the [facility]. Patient has diabetes mellitus. His HgbA1c from 08/09/23 was 6.4. For elective surgeries, the HgbA1c needs to be less than 8. Followup two weeks. From Dr. Villagran's previous note: The patient would benefit from going to surgery for an operative excision of the left ischial pressure sore. The surrounding skin is macerated from the drainage from the ulcer. A lot of abnormal bursal scar tissue is present. Suspect bone is involved. A partial ostectomy would also be done to look for osteomyelitis. Soft tissue and bone would be sent to Pathology for analysis to rule out carcinoma and to evaluate for osteomyelitis. Soft tissue and bone would be sent to Microbiology for culture. A positive culture would necessitate antibiotic therapy. Surgery would be done with a surgical observation overnight stay in the hospital. A VAC can be applied prior to discharge. As an outpatient it would be changed three times per week at 150 mmHg continuous suction.
[2023-10-02 13:37] VITALS: BP 166/104; PULSE 74; RESP 16; TEMP 36.7; BMI 41.1
--- NOTE | 2023-10-02 22:22 | PN.PCM_ITS ---
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 He was recently admitted at [facility] from 07/16/23 to 07/19/23 for a cough, fever and chills. Patient was admitted for acutely infected chronic left ischial/sacral wound with concern for osteomyelitis, started on IV antibiotics. He has a history of ESRD on hemodialysis. History of failed kidney transplant, chronic s ystolic heart failure, hypertension, hyperlipidemia, diabetes mellitus type II, left AKA, and incomplete paraplegia. He resides at [facility] where he receives his hemodialysis. He had an operative debridement of his left ischial ulcer at [facility] 2 years ago, per the patient. CT of abdomen and pelvis on 07/16/23, related to the ulcer showed There is a decubitus ulcer in the left gluteus with extension into and sclerotic and erosive involvement of the left initial tuberosity. This is concerning for osteomyelitis. Ischial wound culture obtained on 07/16/23 which was positive for Proteus mirabilis, Escherichia coli, Enterococcus gallinarum, and MRSA. ID was consulted and he was treated with Vancomycin and Zosyn IV He was discharged on Linezolid and Augmentin and has finished them. He now has a wound in the left amputation stump. Denies trauma. Left AKA wound culture from 08/22/23 positive for Proteus mirabilis. He was started on Augmentin and has finished them. Today he denies fever, chills, nausea or vomiting. Patient has diabetes mellitus. His last HgbA1c from 08/09/23 is 6.4. For elective surgeries, his HgbA1c needs to be less than 8. Progress of Wound: Stable left ischial ulcer, thickened scar tissue surrounding the ulcer. Left amputation stump wound healing well. Objective Data Objective Data Vital Signs: Vital Signs Temp Pulse Resp BP O2 Del Method 98.1 F 74 16 166/104 H Room Air 10/02/23 13:37 10/02/23 13:37 10/02/23 13:37 10/02/23 13:37 10/02/23 13:37 Oxygen Delivery Method Room Air Weight: 302 lb 12.736 oz Body Mass Index (BMI) 41.1 Lab / Micro Data Attestation: I reviewed the patient's lab results. Lab results narrative: Patient has diabetes mellitus. His HgbA1c from 08/09/23 was 6.4. For elective surgeries, the HgbA1c needs to be less than 8. Charges/Coding Procedures Integumentary 111xxx-113xx: 16598 Marycarmen musc/fascia 20 sq cm/< (left ischial ulcer ICD-10 - L89.324, N18.6, E11.9, A49.02, T87.89) Multi Select Codes Integumentary Integumentary CPT Codes: 06221 Marycarmen subq tissue 20 sq cm/< ((ICD-10 - T87.89, N18.6, E11.9, A49.02, L89.324)) Debridement Note Debridement Note Wound debrided: #1 Left ischial area. Laterality: Left Wound Grade/Stage: IV. Type of Debridement: Excisional debridement Anesthesia Used: 5% Lidocaine Gel Depth: Down to and including healthy tissue, in the subcutaneous layer and to muscle (bone is palpable and not exposed.) Percentage of wound debrided: 100 Instrument Used: 7mm curette Tissue Removed: subcutaneous tissue, muscle, senescent cells, bioburden Severity: Fat Layer Exposed (muscle is exposed. Bone is palpable and not exposed.) Amount of bleeding with debridement: Mild Bleeding Controlled with: Pressure and Compression and gauze Patient tolerated procedure: Patient tolerated procedure well Post-Debridement Measurements and Additional Note: Post-Debridement Measurements/Treatment - Nurse 1 - General Ulcer Assessment Start: 09/10/23 14:06 Freq: Status: Active Protocol: KATE Activity Type Activity Date Activity User E-sign Co-sign Detail Recorded Client Recorded Date Recorded By Document 09/10/23 14:06 KW Desktop 09/10/23 14:18 KW Document 09/24/23 13:44 RB Desktop 09/24/23 13:47 RB Document 10/02/23 13:37 BMF Desktop 10/02/23 13:51 BMF 09/10/23 09/24/23 10/02/23 14:06 13:44 13:37 - Today's Visit Information Type of service Follow-up Visit Follow-up Visit Follow-up Visit (Physician/FINANCIAL RETIREMENT PLAN SPECIALIST (Physician/FINANCIAL RETIREMENT PLAN SPECIALIST (Physician/FINANCIAL RETIREMENT PLAN SPECIALIST ) ) ) Arrival Mode Wheelchair Wheelchair Wheelchair Transfer Assistance Gerry Lift Gerry Lift Gerry Lift Patient Identification Verified (Name & Yes Yes Yes ) Patient Requires Transmission-Based No No Precautions Finger Stick Blood Sugar(mg/dl) (if 191 107 indicated): Blood Sugar Stated by Stated by Patient Patient Height and Weight Body Mass Index (BMI) 41.1 41.1 41.1 BMI Classification Obese Obese Obese Vital Signs Temperature (97.8 F-99.1 F) 97.5 F L 97.1 F L 98.1 F Temperature Source Temporal Temporal Temporal Pulse Rate (60-100) 80 82 74 Pulse Location Monitor Monitor Monitor Respiratory Rate (12-18) 18 18 16 Respiratory rate source Observation Observation Observation Oxygen Delivery Method Room Air Room Air Blood Pressure (90/60-120/80) 210/96 H 142/43 H 166/104 H Blood Pressure Mean (mm Hg) 134 76 124 Source Monitor Monitor Monitor Position Sitting Semi-Fowlers Sitting Blood Pressure Location Left Forearm Left Arm Right Arm Comment PT STATES HASN' T TAKEN BP YET History Since Last Visit- (Skip if this is Patient's initial visit) Have you changed medications since your No No No last visit? Any new allergies or adverse reactions No No No Had a fall/change in ADL's that may No No No increase risk of falls Signs or symptoms of abuse and/or No No No neglect since last visit Have you been in the hospital since your No No No last visit? Has dressing in place as prescribed Yes Yes Yes Has compression in place as prescribed N/A No N/A Has offloadiing in place as prescribed N/A No N/A Experienced any changes in pain level or No No No management Left Footwear No Footwear Right Footwear Regular Shoe Pain Scale: 0-10 Numeric Is Patient Pain Free? Yes Yes Yes WC - Nurse 1 - General Ulcer Measurement Start: 09/10/23 14:06 Freq: Status: Active Protocol: Activity Type Activity Date Activity User E-sign Co-sign Detail Recorded Client Recorded Date Recorded By Document 09/10/23 14:06 KW Desktop 09/10/23 14:18 KW Document 09/24/23 13:44 RB Desktop 09/24/23 13:47 RB Document 10/02/23 13:37 BMF Desktop 10/02/23 13:51 BMF 03/11/2809/24/23 10/02/23 14:06 13:44 13:37 Wound Center Nurse 1 #2 left lateral stump -Combined with other wound No No -Current Size (cm) - Length 0.1 0.1 0.1 -Current Size (cm) - Width 0.1 1.1 0.1 -Current Size (cm) - Depth 0.1 0.1 0.1 -Total Square Cm 0.01 0.11 0.01 -Date of Last Picture (Recall this 10/02/23 field) -Photo Taken Yes -Epithelialization Large 67-100% -Tunneling No No -Undermining/Tunneling No No -Circular Undermining No No -Exudate Amt Small None Present -Exudate Type Serosanguineous -Wound Margin Distinct, Distinct, Outline Outline Attached Attached -Granulation Amt Large (67-100%) None Present (0 %) -Granulation Quality [place] -Slough/Fibrin Yes Yes -Necrosis Amt Medium (34-66%) Small (1-33%) -Necrotic Tissue Type Adherent Slough Eschar -Structure Exposed N/A -Texture (Chelsey-wound Skin Appearance) Assessed Assessed, Scarring -Moisture (Chelsey-wound Skin Appearance) Assessed Assessed,Dry/ Scaly -Color (Chelsey-wound Skin Appearance) Assessed Assessed -Temperature (Chelsey-wound Skin No Abnormality No Abnormality No Abnormality Appearance) (Pt Warm) (Pt Warm) (Pt Warm) -Tenderness on Palpation (Chelsey-wound No No Skin Appearance) -Ulcer Cleansing Rinsed/ Wound Cleanser Soap and Water Irrigated with Saline -Foul Odor after Cleansing No No -Anesthetic Used 5% Lidocaine 5% Lidocaine 5% Lidocaine Gel Gel Gel #1 L Ischial -Combined with other wound No No -Current Size (cm) - Length 0.5 0.5 1 -Current Size (cm) - Width 0.7 1 0.6 -Current Size (cm) - Depth 0.5 0.6 0.6 -Total Square Cm 0.35 0.5 0.6 -Date of Last Picture (Recall this 10/02/23 field) -Photo Taken Yes -Epithelialization None Present -Tunneling No No -Undermining/Tunneling No No -Circular Undermining No No -Exudate Amt Large Large -Exudate Type Serosanguineous Serosanguineous -Wound Margin Thickened & Distinct, Rolled Under Outline Attached -Granulation Amt Large (67-100%) Large (67-100%) Large (67-100%) -Granulation Quality [place] -Slough/Fibrin Yes Yes -Necrosis Amt Small (1-33%) Medium (34-66%) Small (1-33%) -Necrotic Tissue Type Adherent Slough Adherent Slough Adherent Slough -Structure Exposed N/A -Texture (Chelsey-wound Skin Appearance) Assessed Scarring Assessed,Callus ,Scarring -Moisture (Chelsey-wound Skin Appearance) Assessed, Maceration Assessed, Maceration Maceration -Color (Chelsey-wound Skin Appearance) Assessed Assessed Assessed -Temperature (Chelsey-wound Skin No Abnormality No Abnormality No Abnormality Appearance) (Pt Warm) (Pt Warm) (Pt Warm) -Tenderness on Palpation (Chelsey-wound No No Skin Appearance) -Ulcer Cleansing Soap and Water Wound Cleanser Soap and Water -Foul Odor after Cleansing No No No -Anesthetic Used 4% Lidocaine 5% Lidocaine 4% Lidocaine Solution Gel Solution WC - Nurse 2 - General Ulcer CM Notes Start: 09/10/23 14:06 Freq: Status: Active Protocol: Activity Type Activity Date Activity User E-sign Co-sign Detail Recorded Client Recorded Date Recorded By Document 09/10/23 14:59 Laptop 09/10/23 15:02 Document 09/24/23 13:58 Laptop 09/24/23 14:01 Document 10/02/23 14:28 MW Desktop 10/02/23 14:35 MW 09/10/23 09/24/23 10/02/23 14:59 13:58 14:28 Wound Center Nurse 2 #2 left lateral stump -Time 15:00 13:58 14:29 -Correct Patient Yes Yes Yes -Correct Side, Site, Position Yes Yes Yes -Correct Procedure Yes Yes Yes -Procedure Performed Yes Yes Yes -Type of Procedure Debridement Debridement Debridement -Clinical Debridement Subcutaneous Subcutaneous Subcutaneous -Tissue Removed Subcutaneous Subcutaneous Subcutaneous -Post Debridement (cm) - Length 0.6 0.3 0.3 -Post Debridement (cm) - Width 0.7 0.6 0.4 -Post Debridement (cm) - Depth 0.3 0.2 0.1 -Total Square (Post) (cm) 0.42 0.18 0.12 -Area of Debridement (cm) - Length 0.6 0.3 0.3 -Area of Debridement (cm) - Width 0.7 0.6 0.4 -Total Square (Area) (cm) 0.42 0.18 0.12 -Tunneling No No No -Undermining/Tunneling No No No -Circular Undermining No No No -Wound/Ulcer Outcome Not Healed Not Healed Not Healed -Ulcer Cleansing Rinsed/ Rinsed/ Rinsed/ Irrigated with Irrigated with Irrigated with Saline Saline Saline -Foul Odor after Cleansing No No No -Bioengineered Tissue No No No -Bleeding Controlled with Pressure Pressure Pressure -Treatment Response Procedure Procedure Procedure Tolerated Well Tolerated Well Tolerated Well -Offloading No No No -Pressure Reduction Wheelchair cushion -Debridement - Subq, 1st 20sq cm Yes Yes Yes #1 L Ischial -Time 15:00 14:00 14:29 -Correct Patient Yes Yes Yes -Correct Side, Site, Position Yes Yes Yes -Correct Procedure Yes Yes Yes -Procedure Performed Yes Yes Yes -Type of Procedure Debridement Debridement Debridement -Clinical Debridement Muscle / Fascia Muscle / Fascia Muscle / Fascia -Tissue Removed Muscle,Fascia Muscle,Fascia Muscle,Fascia -Post Debridement (cm) - Length 1.7 2.5 1.0 -Post Debridement (cm) - Width 1.4 2.0 0.8 -Post Debridement (cm) - Depth 0.6 0.6 1.0 -Total Square (Post) (cm) 2.38 5.00 0.80 -Area of Debridement (cm) - Length 1.7 2.5 1.0 -Area of Debridement (cm) - Width 1.4 2.0 0.8 -Total Square (Area) (cm) 2.38 5.00 0.80 -Tunneling No No No -Undermining/Tunneling No No No -Circular Undermining No No No -Wound/Ulcer Outcome Not Healed Not Healed Not Healed -Ulcer Cleansing Rinsed/ Rinsed/ Rinsed/ Irrigated with Irrigated with Irrigated with Saline Saline Saline -Foul Odor after Cleansing No No No -Bioengineered Tissue No No No -Bleeding Controlled with Pressure Pressure Pressure -Treatment Response Procedure Procedure Procedure Tolerated Well Tolerated Well Tolerated Well -Offloading No No No -Pressure Reduction Wheelchair cushion -Debridement - Muscle / Fascia, 1st Yes Yes Yes 20sq cm Pain Scale: 0-10 Numeric Is Patient Pain Free? Yes Yes Yes WC - Nurse 3 - General Ulcer D/C NN Start: 09/10/23 14:06 Freq: Status: Active Protocol: Activity Type Activity Date Activity User E-sign Co-sign Detail Recorded Client Recorded Date Recorded By Document 09/10/23 15:06 JF Laptop 09/10/23 15:08 Document 09/24/23 14:55 RB Desktop 09/24/23 14:56 RB Document 10/02/23 14:41 KW Desktop 10/02/23 14:43 KW 09/10/23 09/24/23 10/02/23 15:06 14:55 14:41 Wound Care Center Nurse 3 #2 left lateral stump -Ulcer Cleansing Rinsed/ Irrigated with Saline -Primary Dressing Applied Mepilex Border, NonAdherent Melgisorb AG, NonAdherent Contact Layer NonAdherent Contact Layer, Contact Layer Promogran [place] Matter -Other Dressing hydrogel -Primary Dressing Covered/Secured with Dry Gauze, Secured with Tape -Melgisorb AG 1 -Mepilex Border 1 -Promogran [place] Matter 1 #1 L Ischial -Ulcer Cleansing Rinsed/ Irrigated with Saline -Primary Dressing Applied Aquacel AG 4x4 Aquacel AG 4x4 Aquacel AG 4x4, Mepilex Border -Other Dressing abd -Primary Dressing Covered/Secured with Dry Gauze, Secured with Secured with Tape Tape -Aquacel AG 4x4 1 1 1 -Mepilex Border 1 Treatment Response Procedure Procedure Tolerated Well Tolerated Well Pain Scale: 0-10 Numeric Is Patient Pain Free? Yes Yes Yes Teaching: Wound Center Dressing Your Wound -Person Taught Patient -Teaching Method Discussion -Response to teaching Verbalize understanding WC - Visit Discharge Discharge Condition Stable Stable Stable Ambulatory Status Wheelchair Wheelchair Wheelchair Transportation SD transport Medication Reconcilliation completed & No No No provided to patient/care provider Clinical Summary of Care Provided Yes Yes Yes Additional Wound Wound debrided: #2 Left amputation stump. Laterality: Left Wound Grade/Stage: Grade II. Type of Debridement: Excisional debridement Anesthesia Used: 5% Lidocaine Gel Depth: Down to and including healthy tissue and in the subcutaneous layer Percentage of wound debrided: 100 Instrument Used: 3mm curette Tissue Removed: subcutaneous tissue, senescent cells, and increased bioburden Severity: Fat Layer Exposed Amount of bleeding with debridement: Mild Bleeding Controlled with: Pressure and Compression and gauze Patient tolerated procedure: Patient tolerated procedure well Assessment/Plan Assessment/Plan (1) 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, stage 4: CODE(S): L89.324 - Pressure ulcer of left buttock, stage 4 (2) Non-healing wound of amputation stump: CODE(S): T87.89 - Other complications of amputation stump (3) Chronic kidney disease with end stage renal failure on dialysis: CODE(S): N18.6 - End stage renal disease; Z99.2 - Dependence on renal dialysis (4) DM type 2, goal HbA1c < 7%: CODE(S): E11.9 - Type 2 diabetes mellitus without complications (5) Community acquired MRSA infection: CODE(S): A49.02 - Methicillin resistant Staphylococcus aureus infection, unspecified site PLAN: Plan Wound care - Silver to both ulcers (left lateral aspect BKA stump and left ischial ulcer). Encouraged off loading and not sitting or laying on the ulcer area for long periods of time. If he is up in a wheelchair, he needs to shift/reposition every 10 minutes for 10 seconds. Encouraged increased protein intake to help with wound healing. He would benefit from protein supplementation. He has ESRD and has dialysis M,T,TH,F. Left ischial wound culture from 07/16/23 showed Proteus mirabilis, E. coli, Enterococcus gallinarum, and MRSA. He was treated with Vancomycin and Zosyn in the hospital. He was discharged on Linezolid and Augmentin and has finished them. Left AKA wound culture from 08/22/23 positive for Proteus mirabilis. He was started on Augmentin and has finished them. Patient has diabetes mellitus. His HgbA1c from 08/09/23 was 6.4. For elective surgeries, the HgbA1c needs to be less than 8. The patient would benefit from going to surgery for an operative excision of the left ischial pressure sore. The surrounding skin is macerated from the drainage from the ulcer. A lot of abnormal bursal scar tissue is present. Suspect bone is involved. A partial ostectomy would also be done to look for osteomyelitis. Soft tissue and bone would be sent to Pathology for analysis to rule out carcinoma and to evaluate for osteomyelitis. Soft tissue and bone would be sent to Microbiology for culture. A positive culture would necessitate antibiotic therapy. Surgery would be done with a surgical observation overnight stay in the [facility]. A VAC can be applied prior to discharge. As an outpatient it would be changed three times per week at 150 mmHg continuous suction. Patient is aware that the postop wound will be bigger. He voices understanding. Patient was informed of the risks and complications of the procedure including alternatives to surgery. These were discussed with the patient personally. Patient voices understanding and wishes to proceed. Potential risks and complications included but not inclusive of bleeding, infection, hematoma, bruising, swelling, loss of sensation to skin, wound breakdown, need for wound care, poor scarring, poor aesthetic outcome, intra operative cardiac or neurologic events, DVT, PE, and reaction to anesthesia. Followup 2 weeks.
== END 2023-10-06 23:59 | disposition home or self-care (01) ==
LOC: WC 13:30
PROVIDERS: PCP Internal Medicine; Referring Provider Nurse Practitioner Family; Visit Provider Nurse Practitioner Family
DX: L89.324 Pressure ulcer of left buttock, stage 4 (principal); I13.2 Hypertensive heart and chronic kidney disease with heart failure and with stage 5 chronic kidney disease, or end stage renal disease; N18.6 End stage renal disease; E11.622 Type 2 diabetes mellitus with other skin ulcer; T87.89 Other complications of amputation stump; I50.22 Chronic systolic (congestive) heart failure; E11.22 Type 2 diabetes mellitus with diabetic chronic kidney disease; T86.11 Kidney transplant rejection; A49.02 Methicillin resistant Staphylococcus aureus infection, unspecified site; E78.5 Hyperlipidemia, unspecified; Z99.2 Dependence on renal dialysis; Z79.01 Long term (current) use of 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; Z79.890 Hormone replacement therapy; Z79.899 Other long term (current) drug therapy
CPT/HCPCS: 11042; 11043

== ENCOUNTER → 2023-10-10 | Outpatient (REF) | payer MEDICARE, MEDICAID, SELFPAY ==
[2023-10-10 08:41] LABS: Hemoglobin 11.8 g/dL (13.0-16.5); Mean Corp Hgb Conc 31.1 g/dL (32-36); Mean Corpuscular Hgb 29.7 pg (27.0-32.0); Mean Corpuscular Volume 95.7 fL (80-94); Mean Platelet Vol. 11.1 fl (6.2-12.0); Platelet Count 142 K/mm3 (150-450); RBC Distribution Width CV 14.9 % (11.6-14.6); RBC Distribution Width SD 52.8 fl (35.1-43.9); Red Blood Count 3.97 M/mm3 (4.6-6.2); White Blood Count 7.3 K/mm3 (4.4-11.0)
== END ==
LOC: OLS.SW 05:20
PROVIDERS: PCP Internal Medicine; Visit Provider Internal Medicine
DX: N18.9 Chronic kidney disease, unspecified (principal)
CPT/HCPCS: 36415; 85027

== ENCOUNTER → 2023-10-18 05:00 | Outpatient (REF) | payer MEDICARE, MEDICAID, SELFPAY ==
[2023-10-18 08:56] LABS: Hematocrit 37.8 % (40-54); Hemoglobin 11.9 g/dL (13.0-16.5); Mean Corp Hgb Conc 31.5 g/dL (32-36); Mean Corpuscular Hgb 30.3 pg (27.0-32.0); Mean Corpuscular Volume 96.2 fL (80-94); Mean Platelet Vol. 11.3 fl (6.2-12.0); Platelet Count 173 K/mm3 (150-450); RBC Distribution Width CV 14.4 % (11.6-14.6); RBC Distribution Width SD 51.5 fl (35.1-43.9); Red Blood Count 3.93 M/mm3 (4.6-6.2); White Blood Count 6.6 K/mm3 (4.4-11.0)
== END ==
LOC: OLS.SW 05:00
PROVIDERS: PCP Internal Medicine; Visit Provider Internal Medicine
DX: D64.9 Anemia, unspecified (principal); N18.9 Chronic kidney disease, unspecified
CPT/HCPCS: 85027

== ENCOUNTER → 2023-10-24 | Outpatient (REF) | payer MEDICARE, MEDICAID, SELFPAY ==
[2023-10-24 08:26] LABS: Hematocrit 35.6 % (40-54); Hemoglobin 11.3 g/dL (13.0-16.5); Mean Corp Hgb Conc 31.7 g/dL (32-36); Mean Corpuscular Hgb 30.3 pg (27.0-32.0); Mean Corpuscular Volume 95.4 fL (80-94); Mean Platelet Vol. 11.2 fl (6.2-12.0); Platelet Count 172 K/mm3 (150-450); RBC Distribution Width CV 14.5 % (11.6-14.6); RBC Distribution Width SD 50.2 fl (35.1-43.9); Red Blood Count 3.73 M/mm3 (4.6-6.2); White Blood Count 8.1 K/mm3 (4.4-11.0)
== END ==
LOC: OLS.SW 05:00
PROVIDERS: PCP Internal Medicine; Visit Provider Internal Medicine
DX: D64.9 Anemia, unspecified (principal)
CPT/HCPCS: 85027

== ENCOUNTER 2023-10-28 13:30 | Outpatient (RCR) | payer MEDICARE, MEDICAID, SELFPAY ==
[2023-10-07 00:24] VITALS: BP 166/104; PULSE 74; RESP 16; TEMP 36.7; BMI 41.1
[2023-10-15 13:45] VITALS: BP 177/98; PULSE 85; RESP 18; TEMP 37.2; BMI 41.1
--- NOTE | 2023-10-15 16:49 | PCM.WC.PN ---
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 He was admitted at [facility] from 07/16/23 to 07/19/23 for a cough, fever and chills. Patient was admitted for acutely infected chronic left ischial/sacral wound with concern for osteomyelitis, started on IV antibiotics. He has a history of ESRD on hemodialysis. History of failed kidney transplant, chronic systolic heart failure, hypertension, hyperlipidemia, diabetes mellitus type II, left AKA, and incomplete paraplegia. He resides at [facility] where he receives his hemodialysis. He had an operative debridement of his left ischial ulcer at [facility] 2 years ago, per the patient. CT of abdomen and pelvis on 07/16/23, related to the ulcer showed There is a decubitus ulcer in the left gluteus with extension into and sclerotic and erosive involvement of the left initial tuberosity. This is concerning for osteomyelitis. Ischial wound culture obtained on 07/16/23 which was positive for Proteus mirabilis, Escherichia coli, Enterococcus gallinarum, and MRSA. ID was consulted and he was treated with Vancomycin and Zosyn IV He was discharged on Linezolid and Augmentin and has finished them. He developed a wound on his left AKA stump. Left AKA wound culture from 08/22/23 positive for Proteus mirabilis. He was started on Augmentin and has finished them. Today he denies fever, chills, nausea or vomiting. Patient has diabetes mellitus. His last HgbA1c from 08/09/23 is 6.4. For elective surgeries, his HgbA1c needs to be less than 8. Progress of Wound: Left ischial ulcer, thickened scar tissue surrounding the ulcer. There is a strong odor with drainage with a tint of green. A wound culture was obtained today.? A positive culture will necessitate antibiotic therapy. Left amputation stump wound is healed today. Has a new ulcer on the right dorsal foot proximal to great toe. There is non viable tissue present along. There is some undermining present. He states he had a ulcer in this area in the past. He is unsure when the ulceration reopened. He denies any trauma to the area. He also has a cluster of small wounds on the plantar surface of his right foot. He states that he had issues with a callus forming in this area that was shaved and caused a wound in the past. He also denies trauma to this area. Objective Data Objective Data Vital Signs: Vital Signs Temp Pulse Resp BP 99 F 85 18 177/98 H 10/15/23 13:45 10/15/23 13:45 10/15/23 13:45 10/15/23 13:45 Weight: 302 lb 12.736 oz Body Mass Index (BMI) 41.1 Charges/Coding Procedures Integumentary 111xxx-113xx: 78897 Marycarmen musc/fascia 20 sq cm/< (left ischial ulcer ICD-10 - L89.324, N18.6, E11.9, A49.02, T87.89) Multi Select Codes Integumentary Integumentary CPT Codes: 79616 Marycarmen subq tissue 20 sq cm/< (right dorsal and plantar foot) Debridement Note Debridement Note Wound debrided: #1 Left ischial area. Laterality: Left Wound Grade/Stage: IV. Type of Debridement: Excisional debridement Anesthesia Used: 5% Lidocaine Gel Depth: Down to and including healthy tissue, in the subcutaneous layer and to muscle (bone is palpable and not exposed.) Percentage of wound debrided: 100 Instrument Used: 5mm curette Tissue Removed: subcutaneous tissue, muscle, senescent cells, bioburden Severity: Fat Layer Exposed (muscle is exposed. Bone is palpable and not exposed.) Amount of bleeding with debridement: Mild Bleeding Controlled with: Pressure and Compression and gauze Patient tolerated procedure: Patient tolerated procedure well Debridement Free Text: Strong odor coming from this ulcer. Post-Debridement Measurements and Additional Note: Post-Debridement Measurements/Treatment - Nurse 1 - General Ulcer Assessment Start: 10/15/23 13:45 Freq: Status: Active Protocol: [email or web address] Activity Type Activity Date Activity User E-sign Co-sign Detail Recorded Client Recorded Date Recorded By Document 10/15/23 13:45 Desktop 10/15/23 13:56 RB 10/15/23 13:45 - Today's Visit Information Type of service Follow-up Visit (Physician/BOOK MENDER ) Arrival Mode Wheelchair Transfer Assistance Gerry Lift Patient Identification Verified (Name & Yes ) Patient Requires Transmission-Based No Precautions Finger Stick Blood Sugar(mg/dl) (if 154 indicated): Blood Sugar Stated by Patient Height and Weight Body Mass Index (BMI) 41.1 BMI Classification Obese Vital Signs Temperature (97.8 F-99.1 F) 99 F Temperature Source Temporal Pulse Rate (60-100) 85 Pulse Location Monitor Respiratory Rate (12-18) 18 Respiratory rate source Observation Blood Pressure (90/60-120/80) 177/98 H Blood Pressure Mean (mm Hg) 124 Source Monitor Position Semi-Fowlers Blood Pressure Location Left Arm History Since Last Visit- (Skip if this is Patient's initial visit) Have you changed medications since your No last visit? Any new allergies or adverse reactions No Had a fall/change in ADL's that may No increase risk of falls Signs or symptoms of abuse and/or No neglect since last visit Have you been in the hospital since your No last visit? Has dressing in place as prescribed Yes Has compression in place as prescribed No Has offloadiing in place as prescribed No Experienced any changes in pain level or No management Pain Scale: 0-10 Numeric Is Patient Pain Free? Yes WC - Nurse 1 - General Ulcer Measurement Start: 10/15/23 13:45 Freq: Status: Active Protocol: Activity Type Activity Date Activity User E-sign Co-sign Detail Recorded Client Recorded Date Recorded By Document 10/15/23 13:45 RB Desktop 10/15/23 13:56 RB 10/15/23 13:45 Wound Center Nurse 1 #2 left lateral stump -Combined with other wound No -Current Size (cm) - Length 0.1 -Current Size (cm) - Width 0.1 -Current Size (cm) - Depth 0.1 -Total Square Cm 0.01 -Epithelialization Large 67-100% -Granulation Amt Large (67-100%) -Granulation Quality [place] -Slough/Fibrin No -Structure Exposed N/A -Texture (Chelsey-wound Skin Appearance) Assessed -Moisture (Chelsey-wound Skin Appearance) Assessed -Color (Chelsey-wound Skin Appearance) Assessed -Temperature (Chelsey-wound Skin No Abnormality Appearance) (Pt Warm) -Tenderness on Palpation (Chelsey-wound No Skin Appearance) -Ulcer Cleansing Wound Cleanser -Foul Odor after Cleansing No -Anesthetic Used 5% Lidocaine Gel 3# R dorsal foot -Combined with other wound No -Current Size (cm) - Length 0.6 -Current Size (cm) - Width 0.6 -Current Size (cm) - Depth 0.2 -Total Square Cm 0.36 -Photo Taken Yes -Tunneling No -Undermining/Tunneling No -Circular Undermining No -Exudate Amt Medium -Exudate Type Serosanguineous -Wound Margin Distinct, Outline Attached -Granulation Amt Medium (34-66%) -Granulation Quality [place] -Slough/Fibrin Yes -Necrosis Amt Medium (34-66%) -Necrotic Tissue Type Adherent Slough -Structure Exposed N/A -Texture (Chelsey-wound Skin Appearance) Assessed -Moisture (Chelsey-wound Skin Appearance) Assessed -Color (Chelsey-wound Skin Appearance) Assessed -Tenderness on Palpation (Chelsey-wound Yes Skin Appearance) -Ulcer Cleansing Wound Cleanser -Foul Odor after Cleansing No -Anesthetic Used 5% Lidocaine Gel #1 L Ischial -Combined with other wound No -Current Size (cm) - Length 0.5 -Current Size (cm) - Width 0.5 -Current Size (cm) - Depth 2.3 -Total Square Cm 0.25 -Tunneling No -Undermining/Tunneling No -Circular Undermining No -Exudate Amt Large -Exudate Type Serosanguineous -Wound Margin Thickened & Rolled Under -Granulation Amt Medium (34-66%) -Granulation Quality [place] -Slough/Fibrin Yes -Necrosis Amt Medium (34-66%) -Necrotic Tissue Type Adherent Slough -Structure Exposed N/A -Texture (Chelsey-wound Skin Appearance) Assessed -Moisture (Chelsey-wound Skin Appearance) Maceration -Color (Chelsey-wound Skin Appearance) Assessed -Temperature (Chelsey-wound Skin No Abnormality Appearance) (Pt Warm) -Tenderness on Palpation (Chelsey-wound No Skin Appearance) -Ulcer Cleansing Wound Cleanser -Foul Odor after Cleansing Yes -Anesthetic Used 5% Lidocaine Gel WC - Nurse 2 - General Ulcer CM Notes Start: 10/15/23 13:45 Freq: Status: Active Protocol: Activity Type Activity Date Activity User E-sign Co-sign Detail Recorded Client Recorded Date Recorded By Document 10/15/23 14:21 CP Desktop 10/15/23 14:33 CP 10/15/23 14:21 Wound Center Nurse 2 #2 left lateral stump -Correct Patient No -Correct Side, Site, Position No -Correct Procedure No -Procedure Performed No -Post Debridement (cm) - Length 0 -Post Debridement (cm) - Width 0 -Post Debridement (cm) - Depth 0 -Total Square (Post) (cm) 0 -Wound/Ulcer Outcome Healed- Epithelialized 4. rt plantar foot cluster -Time 14:29 -Correct Patient Yes -Correct Side, Site, Position Yes -Correct Procedure Yes -Procedure Performed Yes -Type of Procedure Debridement -Clinical Debridement Subcutaneous -Tissue Removed Subcutaneous -Post Debridement (cm) - Length 4 -Post Debridement (cm) - Width 1 -Post Debridement (cm) - Depth 0.1 -Total Square (Post) (cm) 4 -Area of Debridement (cm) - Length 4 -Area of Debridement (cm) - Width 1 -Total Square (Area) (cm) 4 -Tunneling No -Undermining/Tunneling No -Circular Undermining No -Wound/Ulcer Outcome Not Healed -Ulcer Cleansing Rinsed/ Irrigated with Saline -Foul Odor after Cleansing No -Bleeding Controlled with Pressure -Treatment Response Procedure Tolerated Well -Debridement - Subq, 1st 20sq cm Yes 3# R dorsal foot -Time 14:21 -Correct Patient Yes -Correct Side, Site, Position Yes -Correct Procedure Yes -Procedure Performed Yes -Type of Procedure Debridement -Clinical Debridement Subcutaneous -Tissue Removed Subcutaneous -Post Debridement (cm) - Length 2.4 -Post Debridement (cm) - Width 2 -Post Debridement (cm) - Depth 0.2 -Total Square (Post) (cm) 4.8 -Area of Debridement (cm) - Length 2.4 -Area of Debridement (cm) - Width 2 -Total Square (Area) (cm) 4.8 -Tunneling No -Undermining/Tunneling No -Wound/Ulcer Outcome Not Healed -Ulcer Cleansing Soap and Water -Foul Odor after Cleansing No -Bioengineered Tissue No -Bleeding Controlled with Pressure -Treatment Response Procedure Tolerated Well -Offloading No -Total Non-Weight Bearing to Right Lower Extremity -Assistive Device(s) Wheelchair -Pressure Reduction Wheelchair cushion -Debridement - Subq, 1st 20sq cm No #1 L Ischial -Time 14:24 -Correct Patient Yes -Correct Side, Site, Position Yes -Correct Procedure Yes -Procedure Performed Yes -Type of Procedure Debridement -Clinical Debridement Muscle / Fascia -Tissue Removed Muscle -Post Debridement (cm) - Length 4 -Post Debridement (cm) - Width 1.5 -Post Debridement (cm) - Depth 1.4 -Total Square (Post) (cm) 6.0 -Area of Debridement (cm) - Length 4 -Area of Debridement (cm) - Width 1.5 -Total Square (Area) (cm) 6.0 -Tunneling No -Undermining/Tunneling No -Circular Undermining No -Wound/Ulcer Outcome Not Healed -Ulcer Cleansing Soap and Water -Foul Odor after Cleansing Yes -Bleeding Controlled with Pressure -Treatment Response Procedure Tolerated Well -Assistive Device(s) Wheelchair -Pressure Reduction Wheelchair cushion -Debridement - Muscle / Fascia, 1st Yes 20sq cm Pain Scale: 0-10 Numeric Is Patient Pain Free? Yes WC - Nurse 3 - General Ulcer D/C NN Start: 10/15/23 13:45 Freq: Status: Active Protocol: Activity Type Activity Date Activity User E-sign Co-sign Detail Recorded Client Recorded Date Recorded By Document 10/15/23 14:34 CP Desktop 10/15/23 14:48 CP 10/15/23 14:34 Wound Care Center Nurse 3 4. rt plantar foot cluster -Primary Dressing Applied Silvercel -Silvercel 1 Right -Tubular Bandage Double Layer -Size of Tubigrip Used Size F -Size F ($) 2 Pain Scale: 0-10 Numeric Is Patient Pain Free? Yes Additional Wound Wound debrided: #3 right dorsal foot, proximal to great toe Laterality: Right Wound Grade/Stage: Stage III Type of Debridement: Excisional debridement Anesthesia Used: 5% Lidocaine Gel Depth: Down to and including healthy tissue and in the subcutaneous layer Percentage of wound debrided: 100 Instrument Used: 5mm curette and - (scissors and pickups) Tissue Removed: Non viable tissue and slough Severity: Fat Layer Exposed Amount of bleeding with debridement: Mild Bleeding Controlled with: Compression and gauze Patient tolerated procedure: Patient tolerated procedure well Additional Wound Wound debrided: #4 Right plantar foot cluster Laterality: Right Wound Grade/Stage: Non viable tissue and slough Type of Debridement: Excisional debridement Anesthesia Used: 5% Lidocaine Gel Depth: Down to and including healthy tissue and in the subcutaneous layer Percentage of wound debrided: 100 Instrument Used: 3mm curette Tissue Removed: Non viable tissue and slough Severity: Fat Layer Exposed Amount of bleeding with debridement: Mild Bleeding Controlled with: Compression and gauze Patient tolerated procedure: Patient tolerated procedure well Assessment/Plan Assessment/Plan (1) 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, stage 4: CODE(S): L89.324 - Pressure ulcer of left buttock, stage 4 (2) Ulcer of right foot with fat layer exposed: CODE(S): L97.512 - Non-pressure chronic ulcer of other part of right foot with fat layer exposed (3) Ulcer of right foot due to type 2 diabetes mellitus: CODE(S): E11.621 - Type 2 diabetes mellitus with foot ulcer; L97.519 - Non-pressure chronic ulcer of other part of right foot with unspecified severity (4) Non-healing wound of amputation stump: CODE(S): T87.89 - Other complications of amputation stump (5) Chronic kidney disease with end stage renal failure on dialysis: CODE(S): N18.6 - End stage renal disease; Z99.2 - Dependence on renal dialysis (6) DM type 2, goal HbA1c < 7%: CODE(S): E11.9 - Type 2 diabetes mellitus without complications (7) Community acquired MRSA infection: CODE(S): A49.02 - Methicillin resistant Staphylococcus aureus infection, unspecified site PLAN: Plan Left AKA stump ulcer is healed today. May massage area with lotion 1-2 times per day. Wound care - Start Dakins 0.25% moistened gauze covered with ABD to the left ischial ulcer due to the odor and drainage he is experiencing. Right dorsal foot ulcer and the right plantar foot ulcer cluster place Silvercel covered with gauze daily after washing with soap and water. Compression - Double tubigrip. A wound culture was obtained today,10/15/23 of the left ischial ulcer.? A positive culture will necessitate antibiotic therapy. He may wear a shoe only for PT. I do not want increased pressure on his right foot ulcer from wearing a shoe, except for therapy. Encouraged off loading and not sitting or laying on the ulcer area for long periods of time. If he is up in a wheelchair, he needs to shift/reposition every 10 minutes for 10 seconds. Encouraged increased protein intake to help with wound healing. He would benefit from protein supplementation. He has ESRD and has dialysis M,T,TH,F. Left ischial wound culture from 07/16/23 showed Proteus mirabilis, E. coli, Enterococcus gallinarum, and MRSA. He was treated with Vancomycin and Zosyn in the hospital. He was discharged on Linezolid and Augmentin and has finished them. Left AKA wound culture from 08/22/23 positive for Proteus mirabilis. He was started on Augmentin and has finished them. Patient has diabetes mellitus. His HgbA1c from 08/09/23 was 6.4. For elective surgeries, the HgbA1c needs to be less than 8. Followup [address] Villagran's previous note: The patient would benefit from going to surgery for an operative excision of the left ischial pressure sore. The surrounding skin is macerated from the drainage from the ulcer. A lot of abnormal bursal scar tissue is present. Suspect bone is involved. A partial ostectomy would also be done to look for osteomyelitis. Soft tissue and bone would be sent to Pathology for analysis to rule out carcinoma and to evaluate for osteomyelitis. Soft tissue and bone would be sent to Microbiology for culture. A positive culture would necessitate antibiotic therapy. Surgery would be done with a surgical observation overnight stay in the hospital. A VAC can be applied prior to discharge. As an outpatient it would be changed three times per week at 150 mmHg continuous suction. Patient is aware that the postop wound will be bigger. He voices understanding. Patient was informed of the risks and complications of the procedure including alternatives to surgery. These were discussed with the patient personally. Patient voices understanding and wishes to proceed. Potential risks and complications included but not inclusive of bleeding, infection, hematoma, bruising, swelling, loss of sensation to skin, wound breakdown, need for wound care, poor scarring, poor aesthetic outcome, intra operative cardiac or neurologic events, DVT, PE, and reaction to anesthesia. Waiting to hear when surgery will be scheduled.
--- NOTE | 2023-10-18 12:22 | WC ---
4.9.24 RT MED FT
[2023-10-28 13:43] VITALS: BP 188/85; PULSE 90; RESP 20; TEMP 36.8; BMI 41.1
--- NOTE | 2023-10-28 15:40 | PCM.WC.PN ---
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 He was admitted at [facility] from 07/16/23 to 07/19/23 for a cough, fever and chills. Patient was admitted for acutely infected chronic left ischial/sacral wound with concern for osteomyelitis, started on IV antibiotics. He has a history of ESRD on hemodialysis. History of failed kidney transplant, chronic systolic heart failure, hypertension, hyperlipidemia, diabetes mellitus type II, left AKA, and incomplete paraplegia. He resides at [facility] where he receives his hemodialysis. He had an operative debridement of his left ischial ulcer at [facility] 2 years ago, per the patient. CT of abdomen and pelvis on 07/16/23, related to the ulcer showed There is a decubitus ulcer in the left gluteus with extension into and sclerotic and erosive involvement of the left initial tuberosity. This is concerning for osteomyelitis. Ischial wound culture obtained on 07/16/23 which was positive for Proteus mirabilis, Escherichia coli, Enterococcus gallinarum, and MRSA. ID was consulted and he was treated with Vancomycin and Zosyn IV He was discharged on Linezolid and Augmentin and has finished them. He developed a wound on his left AKA stump which is now healed. Left AKA wound culture from 08/22/23 positive for Proteus mirabilis. He was started on Augmentin and has finished them. Left ischial ulcer wound culture from 10/15/23 positive for Proteus mirabilis, MRSA, Enterococcus faecalis, Enterococcus avium Anaerobic cocci. He is being treated with Augmentin and Doxycycline. Today he denies fever, chills, nausea or vomiting. Patient has diabetes mellitus. His last HgbA1c from 08/09/23 is 6.4. For elective surgeries, his HgbA1c needs to be less than 8. Progress of Wound: Left ischial ulcer, thickened scar tissue surrounding the ulcer. There is no odor today with him being treated with antibiotics. He has a new wound on left buttocks, he states it was caused by the gerry pad, it is superficial and round, wound bed is pink. The ulcer on the right dorsal foot proximal to great toe is stable, there is some non viable tissue in the center of the ulcer. The right foot plantar surface ulcer cluster are stable. He states that his tubigrips are too tight. Objective Data Objective Data Vital Signs: Vital Signs Temp Pulse Resp BP 98.2 F 90 20 H 188/85 H 10/28/23 13:43 10/28/23 13:43 10/28/23 13:43 10/28/23 13:43 Weight: 302 lb 12.736 oz Body Mass Index (BMI) 41.1 Lab / Micro Data Micro: Microbiology 10/15/23 14:26 Wound - Ischium Gram Stain - Final 10/15/23 14:26 Wound - Ischium Wound Culture - Final Proteus mirabilis Meth. resistant Staph. aureus Enterococcus faecalis Enterococcus avium 10/15/23 14:26 Wound - Ischium Anaerobic Culture - Final Anaerobic cocci Charges/Coding Procedures Integumentary [id number]: 58171 Marycarmen musc/fascia 20 sq cm/< (left ischial ulcer ICD-10 - L89.324, N18.6, E11.9, A49.02, T87.89) Multi Select Codes Integumentary Integumentary CPT Codes: 31223 Marycarmen subq tissue 20 sq cm/< (Left buttock wound, right dorsal foot ulcer, right plantar foot ulcer) Debridement Note Debridement Note Wound debrided: #1 Left ischial area. Laterality: Left Wound Grade/Stage: IV. Type of Debridement: Excisional debridement Anesthesia Used: 5% Lidocaine Gel Depth: Down to and including healthy tissue, in the subcutaneous layer and to muscle (bone is palpable and not exposed.) Percentage of wound debrided: 100 Instrument Used: 5mm curette Tissue Removed: subcutaneous tissue, muscle, senescent cells, bioburden Severity: Fat Layer Exposed (muscle is exposed. Bone is palpable and not exposed.) Amount of bleeding with debridement: Mild Bleeding Controlled with: Pressure and Compression and gauze Patient tolerated procedure: Patient tolerated procedure well Post-Debridement Measurements and Additional Note: Post-Debridement Measurements/Treatment WC - Nurse 1 - General Ulcer Assessment Start: 10/15/23 13:45 Freq: Status: Active Protocol: KATE Activity Type Activity Date Activity User E-sign Co-sign Detail Recorded Client Recorded Date Recorded By Document 10/15/23 13:45 RB Desktop 10/15/23 13:56 RB Document 10/28/23 13:43 DL Laptop 10/28/23 14:04 DL 10/15/23 10/28/23 13:45 13:43 - Today's Visit Information Type of service Follow-up Visit Follow-up Visit (Physician/OPEN SOURCE DEVELOPER (Physician/OPEN SOURCE DEVELOPER ) ) Arrival Mode Wheelchair Wheelchair Transfer Assistance Gerry Lift Gerry Lift Patient Identification Verified (Name & Yes Yes ) Patient Requires Transmission-Based No No Precautions Finger Stick Blood Sugar(mg/dl) (if 154 indicated): Blood Sugar Stated by Patient Height and Weight Body Mass Index (BMI) 41.1 41.1 BMI Classification Obese Obese Vital Signs Temperature (97.8 F-99.1 F) 99 F 98.2 F Temperature Source Temporal Temporal Pulse Rate (60-100) 85 90 Pulse Location Monitor Monitor Respiratory Rate (12-18) 18 20 H Respiratory rate source Observation Observation Blood Pressure (90/60-120/80) 177/98 H 188/85 H Blood Pressure Mean (mm Hg) 124 119 Source Monitor Monitor Position Semi-Fowlers Blood Pressure Location Left Arm History Since Last Visit- (Skip if this is Patient's initial visit) Have you changed medications since your No No last visit? Any new allergies or adverse reactions No No Had a fall/change in ADL's that may No No increase risk of falls Signs or symptoms of abuse and/or No No neglect since last visit Have you been in the hospital since your No No last visit? Has dressing in place as prescribed Yes Yes Has compression in place as prescribed No Has offloadiing in place as prescribed No Experienced any changes in pain level or No management Pain Scale: 0-10 Numeric Is Patient Pain Free? Yes Yes - Nurse 1 - General Ulcer Measurement Start: 10/15/23 13:45 Freq: Status: Active Protocol: Activity Type Activity Date Activity User E-sign Co-sign Detail Recorded Client Recorded Date Recorded By Document 10/15/23 13:45 RB Desktop 10/15/23 13:56 RB Document 10/28/23 13:43 DL Laptop 10/28/23 14:04 DL 10/15/23 10/28/23 13:45 13:43 Wound Center Nurse 1 #2 left lateral stump -Combined with other wound No -Current Size (cm) - Length 0.1 -Current Size (cm) - Width 0.1 -Current Size (cm) - Depth 0.1 -Total Square Cm 0.01 -Epithelialization Large 67-100% -Granulation Amt Large (67-100%) -Granulation Quality Maeser -Slough/Fibrin No -Structure Exposed N/A -Texture (Chelsey-wound Skin Appearance) Assessed -Moisture (Chelsey-wound Skin Appearance) Assessed -Color (Chelsey-wound Skin Appearance) Assessed -Temperature (Chelsey-wound Skin No Abnormality Appearance) (Pt Warm) -Tenderness on Palpation (Chelsey-wound No Skin Appearance) -Ulcer Cleansing Wound Cleanser -Foul Odor after Cleansing No -Anesthetic Used 5% Lidocaine Gel #5 L Buttocks -Current Size (cm) - Length 1.9 -Current Size (cm) - Width 2.7 -Current Size (cm) - Depth 0.1 -Total Square Cm 5.13 -Photo Taken Yes -Exudate Amt Small -Exudate Type Serosanguineous -Wound Margin Distinct, Outline Attached -Granulation Amt Large (67-100%) -Granulation Quality Maeser -Necrosis Amt None Present (0 %) -Structure Exposed N/A -Texture (Chelsey-wound Skin Appearance) Scarring -Moisture (Chelsey-wound Skin Appearance) No Abnormality -Color (Chelsey-wound Skin Appearance) No Abnormality -Temperature (Chelsey-wound Skin No Abnormality Appearance) (Pt Warm) -Tenderness on Palpation (Chelsey-wound No Skin Appearance) -Ulcer Cleansing Soap and Water -Foul Odor after Cleansing Yes, Due to Product Use -Anesthetic Used 4% Lidocaine Solution 4. rt plantar foot cluster -Current Size (cm) - Length 3.3 -Current Size (cm) - Width 0.7 -Current Size (cm) - Depth 0.1 -Total Square Cm 2.31 -Photo Taken Yes -Exudate Amt Medium -Exudate Type Serosanguineous -Wound Margin Distinct, Outline Attached -Granulation Amt Small (1-33%) -Granulation Quality Red -Necrosis Amt Small (1-33%) -Necrotic Tissue Type Adherent Slough -Structure Exposed N/A -Texture (Chelsey-wound Skin Appearance) Localized Edema -Moisture (Chelsey-wound Skin Appearance) Dry/Scaly -Color (Chelsey-wound Skin Appearance) No Abnormality -Temperature (Chelsey-wound Skin No Abnormality Appearance) (Pt Warm) -Tenderness on Palpation (Chelsey-wound No Skin Appearance) -Ulcer Cleansing Soap and Water -Foul Odor after Cleansing No -Anesthetic Used 4% Lidocaine Solution 3# R dorsal foot -Combined with other wound No -Combined with (Name of Wound-Exactly 1.2 as it is documented) -Current Size (cm) - Length 0.6 1.2 -Current Size (cm) - Width 0.6 0.1 -Current Size (cm) - Depth 0.2 -Total Square Cm 0.36 0.12 -Photo Taken Yes Yes -Tunneling No -Undermining/Tunneling No -Circular Undermining No -Exudate Amt Medium Medium -Exudate Type Serosanguineous Serosanguineous -Wound Margin Distinct, Distinct, Outline Outline Attached Attached -Granulation Amt Medium (34-66%) Medium (34-66%) -Granulation Quality Maeser Red -Slough/Fibrin Yes -Necrosis Amt Medium (34-66%) Medium (34-66%) -Necrotic Tissue Type Adherent Slough Adherent Slough -Structure Exposed N/A N/A -Texture (Chelsey-wound Skin Appearance) Assessed Scarring -Moisture (Chelsey-wound Skin Appearance) Assessed Dry/Scaly -Color (Chelsey-wound Skin Appearance) Assessed Hemosiderin Staining -Temperature (Chelsey-wound Skin No Abnormality Appearance) (Pt Warm) -Tenderness on Palpation (Chelsey-wound Yes Skin Appearance) -Ulcer Cleansing Wound Cleanser Soap and Water -Foul Odor after Cleansing No No -Anesthetic Used 5% Lidocaine 5% Lidocaine Gel Gel #1 L Ischial -Combined with other wound No -Current Size (cm) - Length 0.5 1.8 -Current Size (cm) - Width 0.5 1 -Current Size (cm) - Depth 2.3 0.7 -Total Square Cm 0.25 1.8 -Photo Taken Yes -Tunneling No -Undermining/Tunneling No -Circular Undermining No -Exudate Amt Large Medium -Exudate Type Serosanguineous Serosanguineous -Wound Margin Thickened & Thickened & Rolled Under Rolled Under -Granulation Amt Medium (34-66%) Medium (34-66%) -Granulation Quality Maeser Red -Slough/Fibrin Yes -Necrosis Amt Medium (34-66%) Medium (34-66%) -Necrotic Tissue Type Adherent Slough Adherent Slough -Structure Exposed N/A N/A -Texture (Chelsey-wound Skin Appearance) Assessed Scarring -Moisture (Chelsey-wound Skin Appearance) Maceration Maceration -Color (Chelsey-wound Skin Appearance) Assessed No Abnormality -Temperature (Chelsey-wound Skin No Abnormality No Abnormality Appearance) (Pt Warm) (Pt Warm) -Tenderness on Palpation (Chelsey-wound No No Skin Appearance) -Ulcer Cleansing Wound Cleanser Soap and Water -Foul Odor after Cleansing Yes No -Anesthetic Used 5% Lidocaine 5% Lidocaine Gel Gel WC - Nurse 2 - General Ulcer CM Notes Start: 10/15/23 13:45 Freq: Status: Active Protocol: Activity Type Activity Date Activity User E-sign Co-sign Detail Recorded Client Recorded Date Recorded By Document 10/15/23 14:21 CP Desktop 10/15/23 14:33 CP Document 10/28/23 14:24 Laptop 10/28/23 14:31 10/15/23 10/28/23 14:21 14:24 Wound Center Nurse 2 #2 left lateral stump -Correct Patient No -Correct Side, Site, Position No -Correct Procedure No -Procedure Performed No -Post Debridement (cm) - Length 0 -Post Debridement (cm) - Width 0 -Post Debridement (cm) - Depth 0 -Total Square (Post) (cm) 0 -Wound/Ulcer Outcome Healed- Epithelialized #5 L Buttocks -Time 14:25 -Correct Patient Yes -Correct Side, Site, Position Yes -Correct Procedure Yes -Procedure Performed Yes -Type of Procedure Debridement -Clinical Debridement Subcutaneous -Tissue Removed Subcutaneous -Post Debridement (cm) - Length 2.0 -Post Debridement (cm) - Width 2.6 -Post Debridement (cm) - Depth 0.1 -Total Square (Post) (cm) 5.20 -Area of Debridement (cm) - Length 2.0 -Area of Debridement (cm) - Width 2.6 -Total Square (Area) (cm) 5.20 -Tunneling No -Undermining/Tunneling No -Circular Undermining No -Wound/Ulcer Outcome Not Healed -Ulcer Cleansing Rinsed/ Irrigated with Saline -Foul Odor after Cleansing No -Bioengineered Tissue No -Bleeding Controlled with Pressure -Treatment Response Procedure Tolerated Well -Offloading No -Debridement - Subq, 1st 20sq cm No 4. rt plantar foot cluster -Time 14:29 14:26 -Correct Patient Yes Yes -Correct Side, Site, Position Yes Yes -Correct Procedure Yes Yes -Procedure Performed Yes Yes -Type of Procedure Debridement Debridement -Clinical Debridement Subcutaneous Subcutaneous -Tissue Removed Subcutaneous Subcutaneous -Post Debridement (cm) - Length 4 3.0 -Post Debridement (cm) - Width 1 0.6 -Post Debridement (cm) - Depth 0.1 0.3 -Total Square (Post) (cm) 4 1.80 -Area of Debridement (cm) - Length 4 3.0 -Area of Debridement (cm) - Width 1 0.6 -Total Square (Area) (cm) 4 1.80 -Tunneling No No -Undermining/Tunneling No No -Circular Undermining No No -Wound/Ulcer Outcome Not Healed Not Healed -Ulcer Cleansing Rinsed/ Rinsed/ Irrigated with Irrigated with Saline Saline -Foul Odor after Cleansing No No -Bioengineered Tissue No -Bleeding Controlled with Pressure Pressure -Treatment Response Procedure Procedure Tolerated Well Tolerated Well -Offloading No -Debridement - Subq, 1st 20sq cm Yes No 3# R dorsal foot -Time 14:21 14:26 -Correct Patient Yes Yes -Correct Side, Site, Position Yes Yes -Correct Procedure Yes Yes -Procedure Performed Yes Yes -Type of Procedure Debridement Debridement -Clinical Debridement Subcutaneous Subcutaneous -Tissue Removed Subcutaneous Subcutaneous -Post Debridement (cm) - Length 2.4 1.5 -Post Debridement (cm) - Width 2 1.6 -Post Debridement (cm) - Depth 0.2 0.5 -Total Square (Post) (cm) 4.8 2.40 -Area of Debridement (cm) - Length 2.4 1.5 -Area of Debridement (cm) - Width 2 1.6 -Total Square (Area) (cm) 4.8 2.40 -Tunneling No No -Undermining/Tunneling No No -Circular Undermining No -Wound/Ulcer Outcome Not Healed Not Healed -Ulcer Cleansing Soap and Water Rinsed/ Irrigated with Saline -Foul Odor after Cleansing No No -Bioengineered Tissue No No -Bleeding Controlled with Pressure Pressure -Treatment Response Procedure Procedure Tolerated Well Tolerated Well -Offloading No No -Total Non-Weight Bearing to Right Lower Extremity -Assistive Device(s) Wheelchair -Pressure Reduction Wheelchair cushion -Debridement - Subq, 1st 20sq cm No Yes #1 L Ischial -Time 14:24 14:27 -Correct Patient Yes Yes -Correct Side, Site, Position Yes Yes -Correct Procedure Yes Yes -Procedure Performed Yes Yes -Type of Procedure Debridement Debridement -Clinical Debridement Muscle / Fascia Muscle / Fascia -Tissue Removed Muscle Muscle,Fascia -Post Debridement (cm) - Length 4 2.0 -Post Debridement (cm) - Width 1.5 1.8 -Post Debridement (cm) - Depth 1.4 1.2 -Total Square (Post) (cm) 6.0 3.60 -Area of Debridement (cm) - Length 4 2.0 -Area of Debridement (cm) - Width 1.5 1.8 -Total Square (Area) (cm) 6.0 3.60 -Tunneling No No -Undermining/Tunneling No No -Circular Undermining No No -Wound/Ulcer Outcome Not Healed Not Healed -Ulcer Cleansing Soap and Water Rinsed/ Irrigated with Saline -Foul Odor after Cleansing Yes No -Bioengineered Tissue No -Bleeding Controlled with Pressure Pressure -Treatment Response Procedure Procedure Tolerated Well Tolerated Well -Offloading No -Assistive Device(s) Wheelchair -Pressure Reduction Wheelchair Wheelchair cushion cushion -Debridement - Muscle / Fascia, 1st Yes Yes 20sq cm Pain Scale: 0-10 Numeric Is Patient Pain Free? Yes Yes - Nurse 3 - General Ulcer D/C NN Start: 10/15/23 13:45 Freq: Status: Active Protocol: Activity Type Activity Date Activity User E-sign Co-sign Detail Recorded Client Recorded Date Recorded By Document 10/15/23 14:34 Desktop 10/15/23 14:48 Document 10/28/23 14:50 Laptop 10/28/23 14:52 10/15/23 10/28/23 14:34 14:50 Wound Care Center Nurse 3 #5 L Buttocks -Ulcer Cleansing Rinsed/ Irrigated with Saline -Foul Odor after Cleansing No -Other Dressing 0.25% Dakin's -Primary Dressing Covered/Secured with Dry Gauze, Secured with Tape 4. rt plantar foot cluster -Ulcer Cleansing Rinsed/ Irrigated with Saline -Foul Odor after Cleansing No -Primary Dressing Applied Silvercel Silvercel -Other Covering abd pad -Silvercel 1 1 3# R dorsal foot -Ulcer Cleansing Rinsed/ Irrigated with Saline -Foul Odor after Cleansing No -Primary Dressing Applied Silvercel -Primary Dressing Covered/Secured with Dry Gauze,Dry Gauze & Roll Gauze -Silvercel 0 #1 L Ischial -Ulcer Cleansing Rinsed/ Irrigated with Saline -Foul Odor after Cleansing No -Primary Dressing Applied Silvercel -Primary Dressing Covered/Secured with Dry Gauze, Secured with Tape -Silvercel 0 Right -Compression Wrap Yanick Wrap -Tubular Bandage Double Layer -Size of Tubigrip Used Size F -Size F ($) 2 Pain Scale: 0-10 Numeric Is Patient Pain Free? Yes Yes WC - Visit Discharge Discharge Condition Stable Ambulatory Status Wheelchair Transportation [facility] transport Medication Reconcilliation completed & Yes provided to patient/care provider Clinical Summary of Care Provided Yes Additional Wound Wound debrided: #3 right dorsal foot, proximal to great toe Laterality: Right Wound Grade/Stage: Stage III Type of Debridement: Excisional debridement Anesthesia Used: 5% Lidocaine Gel Depth: Down to and including healthy tissue and in the subcutaneous layer Percentage of wound debrided: 100 Instrument Used: 3mm curette and - (scissors and pickups) Tissue Removed: Non viable tissue and slough Severity: Fat Layer Exposed Amount of bleeding with debridement: Mild Bleeding Controlled with: Compression and gauze Patient tolerated procedure: Patient tolerated procedure well Additional Wound Wound debrided: #4 Right plantar foot cluster Laterality: Right Wound Grade/Stage: Non viable tissue and slough Type of Debridement: Excisional debridement Anesthesia Used: 5% Lidocaine Gel Depth: Down to and including healthy tissue and in the subcutaneous layer Percentage of wound debrided: 100 Instrument Used: 3mm curette Tissue Removed: Non viable tissue and slough Severity: Fat Layer Exposed Amount of bleeding with debridement: Mild Bleeding Controlled with: Compression and gauze Patient tolerated procedure: Patient tolerated procedure well Additional Wound Wound debrided: buttocks wound Laterality: Left Wound Grade/Stage: Stage II Type of Debridement: Excisional debridement Anesthesia Used: 5% Lidocaine Gel Percentage of wound debrided: 100 Instrument Used: 5mm curette Tissue Removed: Non viable tissue and slough Severity: Fat Layer Exposed Bleeding Controlled with: Compression and gauze Patient tolerated procedure: Patient tolerated procedure well Assessment/Plan Assessment/Plan (1) 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, stage 4: CODE(S): L89.324 - Pressure ulcer of left buttock, stage 4 (2) Ulcer of right foot with fat layer exposed: CODE(S): L97.512 - Non-pressure chronic ulcer of other part of right foot with fat layer exposed (3) Ulcer of right foot due to type 2 diabetes mellitus: CODE(S): E11.621 - Type 2 diabetes mellitus with foot ulcer; L97.519 - Non-pressure chronic ulcer of other part of right foot with unspecified severity (4) Open wound of left buttock without complication: CODE(S): S31.829A - Unspecified open wound of left buttock, initial encounter QUALIFIERS: Encounter type: initial encounter Qualified Code(s): S31.829A - Unspecified open wound of left buttock, initial encounter (5) Chronic kidney disease with end stage renal failure on dialysis: CODE(S): N18.6 - End stage renal disease; Z99.2 - Dependence on renal dialysis (6) DM type 2, goal HbA1c < 7%: CODE(S): E11.9 - Type 2 diabetes mellitus without complications (7) Community acquired MRSA infection: CODE(S): A49.02 - Methicillin resistant Staphylococcus aureus infection, unspecified site PLAN: Plan Left AKA stump ulcer remains healed today. May massage area with lotion 1-2 times per day. Wound care - Start Dakins 0.25% moistened gauze covered with ABD daily to the left ischial ulcer after washing with soap and water. Left buttock wound place Silvercel covered with gauze/ABD daily after washing with soap and water. Right dorsal foot ulcer and the right plantar foot ulcer cluster place Silvercel covered with gauze daily after washing with soap and water. Compression - Start YANICK wraps for compression since the Tubigrips are too tight on his foot and leg. He may wear a shoe only for PT. I do not want increased pressure on his right foot ulcer from wearing a shoe, except for therapy. Will obtain an xray of his right foot, since there has not been one recently since these ulcers have occurred. Encouraged off loading and not sitting or laying on the ulcer area for long periods of time. If he is up in a wheelchair, he needs to shift/reposition every 10 minutes for 10 seconds. Encouraged increased protein intake to help with wound healing. He would benefit from protein supplementation. He has ESRD and has dialysis M,T,TH,F. Left ischial wound culture from 07/16/23 showed Proteus mirabilis, E. coli, Enterococcus gallinarum, and MRSA. He was treated with Vancomycin and Zosyn in the hospital. He was discharged on Linezolid and Augmentin and has finished them. Left AKA wound culture from 08/22/23 positive for Proteus mirabilis. He was started on Augmentin and has finished them. Left ischial ulcer wound culture from 10/15/23 positive for Proteus mirabilis, MRSA, Enterococcus faecalis, Enterococcus avium Anaerobic cocci. He is being treated with Augmentin and Doxycycline. Patient has diabetes mellitus. His HgbA1c from 08/09/23 was 6.4. For elective surgeries, the HgbA1c needs to be less than 8. He is scheduled for an operative debridement on December 08, 2023 of his left ischial ulcer. Followup [address] Villagran's previous note: The patient would benefit from going to surgery for an operative excision of the left ischial pressure sore. The surrounding skin is macerated from the drainage from the ulcer. A lot of abnormal bursal scar tissue is present. Suspect bone is involved. A partial ostectomy would also be done to look for osteomyelitis. Soft tissue and bone would be sent to Pathology for analysis to rule out carcinoma and to evaluate for osteomyelitis. Soft tissue and bone would be sent to Microbiology for culture. A positive culture would necessitate antibiotic therapy. Surgery would be done with a surgical observation overnight stay in the hospital. A VAC can be applied prior to discharge. As an outpatient it would be changed three times per week at 150 mmHg continuous suction. Patient is aware that the postop wound will be bigger. He voices understanding. Patient was informed of the risks and complications of the procedure including alternatives to surgery. These were discussed with the patient personally. Patient voices understanding and wishes to proceed. Potential risks and complications included but not inclusive of bleeding, infection, hematoma, bruising, swelling, loss of sensation to skin, wound breakdown, need for wound care, poor scarring, poor aesthetic outcome, intra operative cardiac or neurologic events, DVT, PE, and reaction to anesthesia. Surgery has been scheduled December 07.
== END 2023-11-05 23:59 | disposition home or self-care (01) ==
LOC: WC 13:30
PROVIDERS: PCP Internal Medicine; Referring Provider Nurse Practitioner Family; Visit Provider Nurse Practitioner Family
DX: L89.324 Pressure ulcer of left buttock, stage 4 (principal); I13.2 Hypertensive heart and chronic kidney disease with heart failure and with stage 5 chronic kidney disease, or end stage renal disease; G82.22 Paraplegia, incomplete; N18.6 End stage renal disease; E11.621 Type 2 diabetes mellitus with foot ulcer; L97.412 Non-pressure chronic ulcer of right heel and midfoot with fat layer exposed; L97.512 Non-pressure chronic ulcer of other part of right foot with fat layer exposed; I50.22 Chronic systolic (congestive) heart failure; E11.22 Type 2 diabetes mellitus with diabetic chronic kidney disease; Z99.2 Dependence on renal dialysis; E78.5 Hyperlipidemia, unspecified; Z86.14 Personal history of Methicillin resistant Staphylococcus aureus infection
CPT/HCPCS: 11042; 11043; 87070; 87075; 87077; 87186; 87205

== ENCOUNTER → 2023-10-31 | Outpatient (REF) | payer MEDICARE, MEDICAID, SELFPAY ==
[2023-10-31 08:31] LABS: Hematocrit 34.3 % (40-54); Mean Corp Hgb Conc 32.1 g/dL (32-36); Mean Corpuscular Hgb 30.1 pg (27.0-32.0); Mean Corpuscular Volume 93.7 fL (80-94); Mean Platelet Vol. 11.2 fl (6.2-12.0); Platelet Count 113 K/mm3 (150-450); RBC Distribution Width SD 51.8 fl (35.1-43.9); Red Blood Count 3.66 M/mm3 (4.6-6.2); White Blood Count 8.2 K/mm3 (4.4-11.0)
== END ==
LOC: OLS.SW 05:00
PROVIDERS: PCP Internal Medicine; Visit Provider Internal Medicine
DX: N18.9 Chronic kidney disease, unspecified (principal); D63.1 Anemia in chronic kidney disease
CPT/HCPCS: 85027

== ENCOUNTER → 2023-11-07 05:00 | Outpatient (REF) | payer MEDICARE, MEDICAID, SELFPAY ==
[2023-11-07 07:55] LABS: Hematocrit 35.7 % (40-54); Hemoglobin 11.1 g/dL (13.0-16.5); Mean Corp Hgb Conc 31.1 g/dL (32-36); Mean Corpuscular Hgb 29.5 pg (27.0-32.0); Mean Corpuscular Volume 94.9 fL (80-94); Mean Platelet Vol. 11.2 fl (6.2-12.0); Platelet Count 160 K/mm3 (150-450); RBC Distribution Width CV 14.5 % (11.6-14.6); RBC Distribution Width SD 50.5 fl (35.1-43.9); Red Blood Count 3.76 M/mm3 (4.6-6.2); White Blood Count 7.8 K/mm3 (4.4-11.0)
== END ==
LOC: OLS.SW 05:00
PROVIDERS: PCP Internal Medicine; Visit Provider Internal Medicine
DX: N18.9 Chronic kidney disease, unspecified (principal); D64.9 Anemia, unspecified
CPT/HCPCS: 85027

== ENCOUNTER → 2023-11-15 | Outpatient (REF) | payer MEDICARE, MEDICAID, SELFPAY ==
[2023-11-15 08:56] LABS: Hematocrit 35.5 % (40-54); Hemoglobin 11.1 g/dL (13.0-16.5); Mean Corp Hgb Conc 31.3 g/dL (32-36); Mean Corpuscular Hgb 29.9 pg (27.0-32.0); Mean Corpuscular Volume 95.7 fL (80-94); Mean Platelet Vol. 11.3 fl (6.2-12.0); Platelet Count 135 K/mm3 (150-450); RBC Distribution Width CV 14.1 % (11.6-14.6); RBC Distribution Width SD 49.5 fl (35.1-43.9); Red Blood Count 3.71 M/mm3 (4.6-6.2); White Blood Count 7.4 K/mm3 (4.4-11.0)
== END ==
LOC: OLS.SW 08:51
PROVIDERS: PCP Internal Medicine; Visit Provider Internal Medicine
DX: N18.9 Chronic kidney disease, unspecified (principal); D63.1 Anemia in chronic kidney disease
CPT/HCPCS: 85027

== ENCOUNTER 2023-11-17 22:12 | Emergency (ER) | payer MEDICARE, MEDICAID, SELFPAY ==
[2023-11-17 22:17] VITALS: BP 144/81; PULSE 89; RESP 22; TEMP 37.9; O2SAT 98; BMI 44.9
[2023-11-17 22:19] VITALS: BP 144/81; PULSE 88; RESP 24; TEMP 37.9; O2SAT 98
--- NOTE | 2023-11-17 22:33 | EDS_ITS ---
HPI History of Present Illness Chief Complaint: Fever Informant: patient Onset/Context/Timing Onset: Today Context: Sudden Onset Timing: Continuous Quality: Shivering Location: Generalized Worsened by: Nothing Relieved by: Nothing Narrative Narrative: Patient presents with chills that began today. Patient states that he started having some shivering today after lunch. Patient states his shivering was generalized. Patient states his temperature was up to 101.3 at home. Patient admits to some nausea and vomiting. Patient states nothing makes his chills or fever any better or any worse. Patient denies any cough. Patient denies any chest pain. Patient has a chronic Hurst. Patient has a history of end-stage renal disease and is on dialysis. [facility] Medical History Acute kidney failure Acute on chronic systolic (congestive) heart failure Acute pulmonary edema Acute respiratory failure with hypoxia Anemia in chronic kidney disease Community acquired MRSA infection Dependence on renal dialysis Depression End stage renal disease Gastro-esophageal reflux disease without esophagitis Hyperkalemia Hyperlipemia Hyperosmolality and hypernatremia Hypertensive heart and chronic kidney disease with heart failure and stage 1 through stage 4 chronic kidney disease, or unspecified chronic kidney disease Hypomagnesemia Hypothyroidism Kidney transplant failure Neurogenic bowel Neuromuscular dysfunction of bladder, unspecified Non-healing wound of amputation stump Other acute osteomyelitis, left ankle and foot Other pericardial effusion (noninflammatory) Other pulmonary embolism without acute cor pulmonale Paraplegia, incomplete Pericardial effusion (noninflammatory) Pneumonia Pressure ulcer of left heel, unspecified stage Pyrexia SIRS (systemic inflammatory response syndrome) Type 2 diabetes mellitus with diabetic chronic kidney disease Home Medications acetaminophen 325 mg tablet 650 mg PO Q4H PRN PAIN/FEVER 01/02/23 [History Last Taken 04/21/23] apixaban 5 mg tablet (Eliquis) 5 mg PO BID 01/02/23 [History Last Taken 07/16/23] ascorbic acid (vitamin C) 500 mg tablet 500 mg PO DAILY 01/02/23 [History Last Taken 07/16/23] atorvastatin 40 mg tablet 40 mg PO QHS 01/02/23 [History Last Taken 07/15/23] bisacodyl 10 mg rectal suppository 10 mg PA DAILY PRN Constipation 01/02/23 [History Last Taken Unknown] carvedilol 12.5 mg tablet 12.5 mg PO BID 01/02/23 [History Last Taken 07/16/23] clotrimazole-betamethasone 1 %-0.05 % topical cream 1 applic topical QHS 12/07 02/27 [History Last Taken 07/15/23] dextrose 40 % oral gel (Glucose Gel) 15 g PO Q15M PRN Hypoglycemia 01/02/23 [History Last Taken Unknown] hydralazine 25 mg tablet 50 mg PO Q8 01/02/23 [History Last Taken 07/16/23] insulin glargine 100 unit/mL (3 mL) subcutaneous pen (Lantus Solostar U-100 Insulin) 24 unit subcut 1700 01/02/23 [History Last Taken 07/16/23] insulin lispro 100 unit/mL subcutaneous pen (Humalog KwikPen (U-100) Insulin) 6 unit subcut 1700 01/02/23 [History Last Taken 07/16/23] midodrine 10 mg tablet 10 mg PO MOTUTHFR 01/02/23 [History Last Taken 07/16/23] ondansetron HCl 4 mg tablet 4 mg PO Q6H PRN Nausea 01/02/23 [History Last Taken Unknown] pantoprazole 40 mg tablet,delayed release 40 mg PO DAILY 01/02/23 [History Last Taken 07/16/23] polyethylene glycol 3350 17 gram oral powder packet 17 g PO DAILY PRN constipation 01/02/23 [History Last Taken Unknown] prednisone 5 mg tablet 5 mg PO DAILY 01/02/23 [History Last Taken 07/16/23] promethazine 12.5 mg tablet 12.5 mg PO Q8H PRN Nausea 01/02/23 [History Last Taken 07/15/23] sennosides 8.6 mg-docusate sodium 50 mg capsule (Senna Plus) 1 tab-cap PO BID Constipation 01/02/23 [History Last Taken 07/16/23] tacrolimus 1 mg capsule, immediate-release (Prograf) 2 mg PO Q12H 01/02/23 [History Last Taken 07/16/23] trazodone 50 mg tablet 150 mg PO QHS 01/02/23 [History Last Taken 07/15/23] calcitriol 0.5 mcg capsule 1.25 mcg PO DAILY 04/21/23 [History Last Taken 07/15/23] gabapentin 100 mg capsule 200 mg PO BID PHANTOM PAIN 04/21/23 [History Last Taken 07/16/23] sevelamer HCl 800 mg tablet 2,400 mg PO TID 04/21/23 [History Last Taken 07/16/23] diphenhydramine HCl 25 mg tablet 25 mg PO DAILY PRN allergy symptoms 07/16/23 [History Last Taken 07/13/23] escitalopram oxalate 20 mg tablet 20 mg PO DAILY 07/16/23 [History Last Taken 07/16/23] levothyroxine 150 mcg tablet 150 mcg PO DAILY 07/16/23 [History Last Taken 07/16/23] acetaminophen 500 mg tablet 1,000 mg (2 x 500 mg) PO Q8 #0 tabs 07/19/23 [Rx Last Taken Unknown] oxycodone 10 mg tablet 10 mg PO Q4H PRN pain 2 days #12 tabs 07/19/23 [Rx Last Taken Unknown] acetaminophen 650 mg rectal suppository 650 mg PA Q4H PRN fever or pain 08/06/23 [History Last Taken Unknown] glucagon 1 mg injection kit 1 mg subcut X1 PRN hypoglycemia 08/06/23 [History Last Taken Unknown] magnesium hydroxide 400 mg/5 mL oral suspension (Milk of Magnesia) 30 ml PO DAILY PRN constipation 08/06/23 [History Last Taken Unknown] ciclopirox 8 % topical solution 1 applic topical QHS 11/17/23 [History Last Taken Unknown] insulin lispro 100 unit/mL subcutaneous pen (Humalog KwikPen (U-100) Insulin) 9 unit subcut 1200 11/17/23 [History Last Taken Unknown] cephalexin 500 mg capsule 500 mg PO Q6 #28 CAPSULES 11/18/23 [Rx Last Taken Unknown] Allergy/AdvReac Type Severity Reaction Status Date / Time No Known Allergies Allergy Verified 08/05/23 17:42 Family History Mother Hypertension Diabetes Father Hypertension Diabetes Surgical History History of kidney transplant S/P colostomy S/P foot surgery S/P unilateral above knee amputation Social History housing: halfway Smoking Status: Never smoker alcohol intake: never substance use type: does not use ROS ROS ED Constitutional Constitutional ED: Reports fever(s); Denies chills Eyes Eyes: Denies blurry vision or change in vision ENT ENT ED: Denies rhinorrhea or sore throat Cardiovascular Cardiovascular: Denies chest pain or palpitations Respiratory/Chest Respiratory/Chest: Denies cough or dyspnea Gastrointestinal Gastrointestinal: Reports nausea and vomiting Genitourinary Genitourinary ED: Denies dysuria or hematuria Musculoskeletal Musculoskeletal: Denies back pain or neck pain Integumentary Denies abscess or rash Neurologic Neurologic: Denies headache(s) or weakness Allergic/Immunologic Allergic/Immunologic ED: Denies mouth swelling or urticaria EXAM Physical Exam Const Vital Signs: 11/17/23 22:17 11/17/23 22:19 11/17/23 22:21 Temperature 100.2 F H 100.2 F H Temperature Source Oral Oral Pulse Rate 89 88 Respiratory Rate 22 H 24 H Respiratory Effort Normal Non-Labored Respiratory Pattern Normal Blood Pressure 144/81 H 144/81 H Blood Pressure Mean 102 102 Pulse Ox 98 98 Oxygen Delivery Method Nasal Cannula Nasal Cannula Oxygen Flow Rate (L/min) 4 4 11/17/23 23:19 11/18/23 00:13 Temperature 99.2 F H 98.8 F Temperature Source Oral Oral Pulse Rate 81 82 Respiratory Rate 19 H 15 Respiratory Effort Respiratory Pattern Blood Pressure 148/75 H 130/75 H Blood Pressure Mean 99 93 Pulse Ox 98 98 Oxygen Delivery Method Nasal Cannula Nasal Cannula Oxygen Flow Rate (L/min) 4 2 Positive well nourished, well developed and obese General Appearance ED: well developed and NAD Nutritional Appearance: obese HEENT Reports moist mucous membranes Neck supple and no JVD Resp normal respiratory effort and clear to auscultation bilaterally Cardio regular rate and regular rhythm GI non-distended Palpation: soft and tender epigastric and RUQ; Negative for guarding or rebound tenderness present Neuro oriented x3, CN's II-XII intact bilaterally and no sensory deficits noted Sensorium / Orientation: alert Motor Exam: strength 5/5 throughout Psych mental status grossly normal MDM MDM MDM Narrative Medical decision making narrative: Parental diagnosis includes urinary tract infection, pneumonia, sepsis, electrolyte abnormality, pancreatitis, and viral infection. Chest x-ray will be obtained to assess for pneumonia. CBC will be obtained to assess for leukocytosis and anemia. Comprehensive metabolic profile will be obtained to assess for hepatic function, renal function, and electrolyte abnormality. Lipase will be obtained to assess for pancreatitis. Lactate will be obtained to assess for sepsis. Urinalysis will be obtained to assess for urinary tract infection and hematuria. PT was INR and PTT will be obtained to assess for coagulopathy. COVID-19, influenza, and RSV PCR will be obtained to assess for v iral illness. Blood cultures will be obtained to assess for sepsis. Urine culture will be obtained to assess for urinary tract infection. Lab Data Attestation: I reviewed the patient's lab results. Lab results narrative: CBC was reviewed. There is a mild anemia with a hemoglobin of 10.4 and hematoc rit of 33.6. Platelets were slightly low at 146. PT with INR and PTT were reviewed. Pro time was 17.9 and INR is 1.5. PTT was slightly elevated at 40.1. Comprehensive metabolic profile was reviewed. Potassium was elevated at 6.8. BUN was elevated at 107 and creatinine was elevated at 10.3. Lipase was reviewed and was normal at 47. Urinalysis was reviewed. Leukocyte esterase was 500 with 50-100 white blood cells and 4+ bacteria. There were greater than 100 red blood cells with occult blood at 250. BGT was obtained and was low at 42. Lactate was reviewed and was normal at 0.5. Magnesium was reviewed and was normal at 1.6. Labs: Laboratory Results - last 24 hr 11/17/23 11/17/23 11/17/23 23:15 23:16 23:20 WBC 10.7 RBC 3.56 L Hgb 10.4 L Hct 33.6 L MCV 94.4 H MCH 29.2 MCHC 31.0 L RDW Std Deviation 51.0 H RDW Coeff of Shanta 14.6 Plt Count 146 L MPV 11.4 Immature Gran % (Auto) 0.300 Neut % (Auto) 73.0 H Lymph % (Auto) 14.8 L [place] % (Auto) 10.4 H Eos % (Auto) 1.0 Baso % (Auto) 0.5 Absolute Neuts (auto) 7.8 H Absolute Lymphs (auto) 1.59 Nucleated RBC % 0 PT 17.9 H INR 1.5 APTT 40.1 H Sodium 136 Potassium 6.8 H* Chloride 100 Carbon Dioxide 26.0 Anion Gap 10 BUN 107 H* Creatinine 10.30 H* Estim Creat Clear Calc 14.95 Est GFR (MDRD) Af Amer 7 L Est GFR (MDRD) Non-Af 6 L BUN/Creatinine Ratio 10.4 Glucose 51 L Lactic Acid 0.5 Calcium 8.8 Magnesium 1.6 Total Bilirubin 0.50 AST 14 L ALT 20 Alkaline Phosphatase 96 Total Protein 8.4 H Albumin 2.9 L Globulin 5.5 H Albumin/Globulin Ratio 0.5 L Lipase 47 Urine Color [place] Urine Clarity Turbid Urine pH 7.0 Ur Specific [place] 1.010 Urine Protein 500 H Urine Glucose (UA) Normal Urine Ketones 5 H Urine Occult Blood 250 H Urine Nitrite Negative Urine Bilirubin Negative Urine Urobilinogen Normal Ur Leukocyte Esterase 500 H Urine RBC > 100 SEEN Urine WBC 50-100 SEEN Ur Squamous Epith Cells 0 SEEN Urine Bacteria 4+ Urine Mucus 0 SEEN POC Glucose 42 L* 11/17/23 11/18/23 23:34 00:02 WBC RBC Hgb Hct MCV MCH MCHC RDW Std Deviation RDW Coeff of [place] Plt Count MPV Immature Gran % (Auto) Neut % (Auto) Lymph % (Auto) [place] % (Auto) Eos % (Auto) Baso % (Auto) Absolute Neuts (auto) Absolute Lymphs (auto) Nucleated RBC % PT INR APTT Sodium Potassium Chloride Carbon Dioxide Anion Gap BUN Creatinine Estim Creat Clear Calc Est GFR (MDRD) Af Amer Est GFR (MDRD) Non-Af BUN/Creatinine Ratio Glucose Lactic Acid Calcium Magnesium Total Bilirubin AST ALT Alkaline Phosphatase Total Protein Albumin Globulin Albumin/Globulin Ratio Lipase Urine Color Urine Clarity Urine pH Ur Specific [place] Urine Protein Urine Glucose (UA) Urine Ketones Urine Occult Blood Urine Nitrite Urine Bilirubin Urine Urobilinogen Ur Leukocyte Esterase Urine RBC Urine WBC Ur Squamous Epith Cells Urine Bacteria Urine Mucus POC Glucose 140 H 97 Radiography Chest X-Ray - ED: 1 View, Read by ED Physician, Read by Radiologist and No Acute Disease Diagnostic Testing: Clinical Impression(s) from Imaging Studies Chest X-Ray 11/18/23 00:00 IMPRESSION: No acute findings in the chest. Electronically Signed: Sujit Henry MD at 0:31 EDT , Portable 1 view chest x-ray was obtained. On my independent interpretation, lung núñez are clear. There is normal cardiac silhouette. Bony thorax is normal. There is no acute process noted. Radiologist also interpreted the x- ray and agrees. EKG Initial EKG: Attestation: I personally reviewed and interpreted this EKG as follows: Interpretation: Sinus Rhythm (82) and No Acute Injury Pattern Comments: Due to the hyperkalemia, EKG was obtained. On my independent interpretation, it showed a normal sinus rhythm with a rate of 82. PA interval, QRS interval, and QTc intervals were all normal. [place] was normal. There are no acute ST or T wave changes. There are no hyperacute T waves. Prior EKG tracings: available for review Prior: Unchanged (08/06/2023) Treatment and Re-Evaluation :: Patient's blood sugar was low at 42. Patient was given 1 amp of D50. Patient's BGT improved to 140. Because of the hyperkalemia, patient was given calcium g luconate, insulin, and dextrose. Patient was started on Rocephin for his urinary tract infection. Patient states that he has dialysis on Mondays, Wednesdays, and Fridays. Patient will be able to have dialysis later this morning. Patient was given a prescription for Keflex. Patient was instructed to follow-up with his primary care physician in 3 to 5 days. Patient was instructed to return if worse in any way. Patient understood and was agreeable with the plan. All questions were answered. Discharge Plan Triage Chief Complaint: Fever ED Provider: Ben Du Dx/Rx/DC Orders Clinical Impression: Urinary tract infection, Hypoglycemia, End stage renal disease, Acute hyper kalemia Instructions: ED Bladder Infection, Male (Adult) Prescriptions: New cephalexin [cephalexin] 500 mg capsule 500 mg PO Q6 Qty: 28 0RF No Action atorvastatin 40 mg Tablet 40 mg PO QHS acetaminophen 325 mg Tablet 650 mg PO Q4H PRN (Reason: PAIN/FEVER) carvedilol 12.5 mg Tablet 12.5 mg PO BID Rx Instructions: must administer with a meal/food ascorbic acid (vitamin C) 500 mg Tablet 500 mg PO DAILY bisacodyl 10 mg Suppository 10 mg PA DAILY PRN (Reason: Constipation) dextrose [Glucose Gel] 40 % Gel 15 g PO Q15M PRN (Reason: Hypoglycemia) Rx Instructions: until symptoms of low blood sugar are controlled insulin lispro [Humalog KwikPen Insulin] 100 unit/mL Insulin Pen 6 unit SUBCUT 1700 Eliquis 5 mg Tablet 5 mg PO BID trazodone 50 mg Tablet 150 mg PO QHS prednisone 5 mg Tablet 5 mg PO DAILY hydralazine 25 mg Tablet 50 mg PO Q8 pantoprazole 40 mg Tablet,Delayed Release (Dr/Ec) 40 mg PO DAILY clotrimazole-betamethasone 1-0.05 % Cream 1 applic TOPICAL QHS tacrolimus [Prograf] 1 mg Capsule 2 mg PO Q12H midodrine 10 mg Tablet 10 mg PO MOTUTHFR Rx Instructions: TAKE 1 TAB BY MOUTH EVERY SATURDAY, SATURDAY, SATURDAY, AND SATURDAY for hypotension prior to dialysis Hold BP >130/90 insulin glargine [Lantus Solostar U-100 Insulin] 100 unit/mL (3 mL) Insulin Pen 24 unit SUBCUT 1700 polyethylene glycol 3350 17 gram Powder In Packet 17 g PO DAILY PRN (Reason: constipation) promethazine 12.5 mg Tablet 12.5 mg PO Q8H PRN (Reason: Nausea) ondansetron HCl 4 mg Tablet 4 mg PO Q6H PRN (Reason: Nausea) Senna Plus 8.6-50 mg Capsule 1 tab-cap PO BID calcitriol 0.5 mcg capsule 1.25 mcg PO DAILY Patient Comments: MAR STATES THAT PT TAKES IN THE MORNING gabapentin 100 mg capsule 200 mg PO BID sevelamer HCl 800 mg tablet 2,400 mg PO TID Rx Instructions: must administer with a meal/food escitalopram oxalate 20 mg tablet 20 mg PO DAILY levothyroxine 150 mcg tablet 150 mcg PO DAILY Patient Comments: MAR STATES PT TAKES IN THE AM diphenhydramine HCl 25 mg tablet 25 mg PO DAILY PRN (Reason: allergy symptoms) acetaminophen 500 mg Tablet 1,000 mg PO Q8 Qty: 0 0RF oxycodone 10 mg tablet 10 mg PO Q4H PRN (Reason: pain) 2 Days Qty: 12 0RF acetaminophen 650 mg suppository 650 mg PA Q4H PRN (Reason: fever or pain) magnesium hydroxide [Milk of Magnesia] 400 mg/5 mL suspension 30 ml PO DAILY PRN (Reason: constipation) glucagon 1 mg kit 1 mg subcut X1 PRN (Reason: hypoglycemia) ciclopirox 8 % solution 1 applic topical QHS Rx Instructions: right thumb insulin lispro [Humalog KwikPen Insulin] 100 unit/mL insulin pen 9 unit subcut 1200 Primary Care Provider: Vanessa Hutchins Referrals: Vanessa Hutchins MD [Primary Care Provider] - 3-5 Days Disposition Disposition: Group Home Facility Discharge Location: [facility]
[2023-11-17 23:18] LABS: Mucous, Urine 0 SEEN /hpf (<or=2+); Squamous Epithelial Cells - UA 0 SEEN /hpf (0-5)
[2023-11-17 23:19] VITALS: BP 148/75; PULSE 81; RESP 19; TEMP 37.3; O2SAT 98
[2023-11-17 23:26] LABS: Color, Urine Amber (Yellow); Glucose, Dipstick Normal (Normal); Ketone-Dipstick 5 mg/dl (Negative); Leukocyte Esterase-Dipstick 500 /ul (Negative); Nitrite-Dipstick Negative (Negative); Occult Blood-Urine 250 /ul (Negative); Protein-Dipstick 500 mg/dl (Negative); Urine Bilirubin Dipstick Negative (Negative); Urine Clarity Turbid (Clear); Urine Urobilinogen Normal (Normal)
[2023-11-17] MEDS: Dextrose 50%-Water 25 GM/50 ML DISP.SYRIN IV (23:27)
[2023-11-17 23:35] LABS: Bacteria 4+ /hpf (None Seen); Red Blood Cells-Urine > 100 SEEN /hpf (0-5); White Blood Cells 50-100 SEEN /hpf (0-5)
[2023-11-17 23:50] LABS: Absolute Lymphocyte Count 1.59 X10^3/uL (0.83-4.51); Absolute Neutrophil Count 7.8 X10^3/uL (2.0-7.7); Basophil# 0.05 X10^3/uL; Basophil% 0.5 % (0-1); Eosinophil# 0.11 X10^3/uL; Hematocrit 33.6 % (40-54); Hemoglobin 10.4 g/dL (13.0-16.5); Lymphocyte # 1.59 X10^3/ul (0.83-4.51); Lymphocyte % 14.8 % (19-41); Mean Corpuscular Hgb 29.2 pg (27.0-32.0); Mean Corpuscular Volume 94.4 fL (80-94); Mean Platelet Vol. 11.4 fl (6.2-12.0); Monocyte# 1.12 X10^3/uL; Monocyte% 10.4 % (0-10); NRBC Flagged by Analyzer 0 % (0-5); Neutrophil # 7.83 X10^3/uL (2.7-7.7); Platelet Count 146 K/mm3 (150-450); RBC Distribution Width CV 14.6 % (11.6-14.6); Red Blood Count 3.56 M/mm3 (4.6-6.2); White Blood Count 10.7 K/mm3 (4.4-11.0)
[2023-11-17 23:51] LABS: International Normalized Ratio 1.5; Partial Thromboplast Time 40.1 Seconds (24.1-36.2); Prothrombin Time (Protime)PT. 17.9 SECONDS (11.7-14.9)
[2023-11-17 23:53] LABS: Bedside Glucose 140 mg/dL (74-106)
[2023-11-17 23:53] LABS: Bedside Glucose 42 mg/dL (74-106)
--- NOTE | 2023-11-18 | RAD_ITS ---
EXAM: XR CHEST, 1 VIEW CLINICAL INDICATION: Fever TECHNIQUE: Frontal view of the chest. COMPARISON: No relevant prior studies available. FINDINGS: LUNGS AND PLEURAL SPACES: Unremarkable. No consolidation or edema. No pneumothorax. No effusion. HEART: Mild enlargement of the cardiac silhouette. MEDIASTINUM: Central airways and mediastinal contour are unremarkable. BONES/JOINTS: Unremarkable. No acute fracture. SOFT TISSUES: Unremarkable. RAD/Chest 1 View (Portable) IMPRESSION: No acute findings in the chest. Electronically Signed: Sujit Henry MD at 0:31 EDT ,
[2023-11-18 00:04] LABS: Lactic Acid 0.5 mmol/L (0.4-1.9)
[2023-11-18 00:09] LABS: ALB/GLOB Ratio 0.5 RATIO (0.9-2.4); AST(SGOT) 14 U/L (15-37); Alanine Aminotransfer ALT/SGPT 20 U/L (16-61); Albumin, Serum 2.9 g/dL (3.2-5.0); Alkaline Phosphatase 96 U/L (45-117); Anion Gap 10 (5-15); BUN 107 mg/dL (7-18); BUN/Creat Ratio 10.4 RATIO (10-20); Calcium,Total 8.8 mg/dL (8.5-10.1); Chloride 100 mmol/L (98-107); EST Glomerular Filtration Rate 6 mL/min (>60); Est Glom Filt Rate - Afr Amer 7 mL/min (>60); Estimated Creatinine Clearance 14.95 ml/min; Globulin 5.5 g/dL (2.2-4.2); Glucose 51 mg/dL (74-106); Lipase 47 U/L (13-75); Potassium 6.8 mmol/L (3.5-5.1); Protein, Total 8.4 g/dL (6.4-8.2); Sodium Level 136 mmol/L (136-145)
[2023-11-18 00:13] VITALS: BP 130/75; PULSE 82; RESP 15; TEMP 37.1; O2SAT 98
[2023-11-18 00:20] LABS: Bedside Glucose 97 mg/dL (74-106)
[2023-11-18] MEDS: Dextrose 50%-Water 25 GM/50 ML DISP.SYRIN IV ×3 (00:51→06:50)
[2023-11-18 00:53] LABS: Magnesium 1.6 mg/dL (1.6-2.6)
[2023-11-18] MEDS: Calcium Gluconate IV 3 GM in Syringe 1 EACH IV (00:55)
[2023-11-18] MEDS: Ceftriaxone 1 GM/50 ML BAG IV (00:56)
[2023-11-18] MEDS: Insulin Lispro 10 UNIT in Syringe 0 ML 6 UNIT IV (01:07)
[2023-11-18] MEDS: Dextrose 10%-Water 250 ML 40 ML IV (01:37)
[2023-11-18 02:00] VITALS: BP 149/83; PULSE 88; RESP 20; O2SAT 100
[2023-11-18 03:11] VITALS: BP 168/102; PULSE 88; RESP 20; TEMP 37.3; O2SAT 98
[2023-11-18 04:00] VITALS: BP 166/101; PULSE 95; RESP 18; O2SAT 98
[2023-11-18 04:36] LABS: Bedside Glucose 85 mg/dL (74-106)
[2023-11-18 04:36] LABS: Bedside Glucose 51 mg/dL (74-106)
[2023-11-18 06:00] VITALS: BP 158/96; PULSE 100; RESP 20; O2SAT 95
[2023-11-18 07:13] LABS: Bedside Glucose 67 mg/dL (74-106)
== END 2023-11-18 06:58 | disposition skilled nursing facility (03) ==
PROVIDERS: Emergency Provider Emergency Medicine; PCP Internal Medicine; Visit Provider Emergency Medicine
DX: N39.0 Urinary tract infection, site not specified (principal); I13.2 Hypertensive heart and chronic kidney disease with heart failure and with stage 5 chronic kidney disease, or end stage renal disease; N18.6 End stage renal disease; I50.23 Acute on chronic systolic (congestive) heart failure; E11.22 Type 2 diabetes mellitus with diabetic chronic kidney disease; E11.649 Type 2 diabetes mellitus with hypoglycemia without coma; Z79.4 Long term (current) use of insulin; E87.5 Hyperkalemia; Z99.2 Dependence on renal dialysis; E66.9 Obesity, unspecified; D63.1 Anemia in chronic kidney disease; Z94.0 Kidney transplant status
CPT/HCPCS: 71045; 80053; 81001; 82962; 83605; 83690; 83735; 85025; 85610; 85730; 87040; 87077; 87086; 87088; 87186; 87631; 93005; 96365; 96366; 96367; 99284; J7050; A4216; J0612

== ENCOUNTER → 2023-11-21 | Outpatient (REF) | payer MEDICARE, MEDICAID, SELFPAY ==
[2023-11-21 08:32] LABS: Hematocrit 31.3 % (40-54); Hemoglobin 9.9 g/dL (13.0-16.5); Mean Corp Hgb Conc 31.6 g/dL (32-36); Mean Corpuscular Hgb 29.8 pg (27.0-32.0); Mean Corpuscular Volume 94.3 fL (80-94); Mean Platelet Vol. 11.3 fl (6.2-12.0); Platelet Count 188 K/mm3 (150-450); RBC Distribution Width CV 14.5 % (11.6-14.6); RBC Distribution Width SD 49.9 fl (35.1-43.9); Red Blood Count 3.32 M/mm3 (4.6-6.2); White Blood Count 6.5 K/mm3 (4.4-11.0)
== END ==
LOC: OLS.SW 05:00
PROVIDERS: PCP Internal Medicine; Visit Provider Internal Medicine
DX: N18.9 Chronic kidney disease, unspecified (principal); D63.1 Anemia in chronic kidney disease
CPT/HCPCS: 85027

== ENCOUNTER 2023-11-25 13:30 | Outpatient (RCR) | payer MEDICARE, MEDICAID, SELFPAY ==
[2023-11-06 00:19] VITALS: BP 188/85; PULSE 90; RESP 20; TEMP 36.8; BMI 41.1
[2023-11-11 13:40] VITALS: BMI 41.1
--- NOTE | 2023-11-11 16:18 | PCM.WC.PN ---
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 He was admitted at [facility] from 07/16/23 to 07/19/23 for a cough, fever and chills. Patient was admitted for acutely infected chronic left ischial/sacral wound with concern for osteomyelitis, started on IV antibiotics. He has a history of ESRD on hemodialysis. History of failed kidney transplant, chronic systolic heart failure, hypertension, hyperlipidemia, diabetes mellitus type II, left AKA, and incomplete paraplegia. He resides at [facility] where he receives his hemodialysis. He had an operative debridement of his left ischial ulcer at [facility] 2 years ago, per the patient. CT of abdomen and pelvis on 07/16/23, related to the ulcer showed There is a decubitus ulcer in the left gluteus with extension into and sclerotic and erosive involvement of the left initial tuberosity. This is concerning for osteomyelitis. Ischial wound culture obtained on 07/16/23 which was positive for Proteus mirabilis, Escherichia coli, Enterococcus gallinarum, and MRSA. ID was consulted and he was treated with Vancomycin and Zosyn IV He was discharged on Linezolid and Augmentin and has finished them. He developed a wound on his left AKA stump which is now healed. Left AKA wound culture from 08/22/23 positive for Proteus mirabilis. He was started on Augmentin and has finished them. Left ischial ulcer wound culture from 10/15/23 positive for Proteus mirabilis, MRSA, Enterococcus faecalis, Enterococcus avium Anaerobic cocci. He is being treated with Augmentin and Doxycycline. Today he denies fever, chills, nausea or vomiting. Patient has diabetes mellitus. His last HgbA1c from 08/09/23 is 6.4. For elective surgeries, his HgbA1c needs to be less than 8. Progress of Wound: Left ischial ulcer, thickened scar tissue surrounding the ulcer. There is maceration surrounding the ulcer. The wound on left buttocks is stable, he states it was caused by the gerry pad, it is superficial and round, wound bed is pink. We are no longer seeing the ulcer on his feet, he is seeing a feed research technician who is managing them. Objective Data Objective Data Vital Signs: Vital Signs Temp Pulse Resp BP O2 Del Method 98.2 F 90 20 H 188/85 H Room Air 11/06/23 00:19 11/06/23 00:19 11/06/23 00:19 11/06/23 00:19 11/11/23 13:40 Oxygen Delivery Method Room Air Weight: 302 lb 12.736 oz Body Mass Index (BMI) 41.1 Charges/Coding Procedures Integumentary 111xxx-113xx: 80650 Marycarmen musc/fascia 20 sq cm/< (Left ischial ulcer) Multi Select Codes Integumentary Integumentary CPT Codes: 75378 Marycarmen subq tissue 20 sq cm/< (left buttock ulcer) Debridement Note Debridement Note Wound debrided: #1 Left ischial area. Laterality: Left Wound Grade/Stage: IV. Type of Debridement: Excisional debridement Anesthesia Used: 5% Lidocaine Gel Depth: Down to and including healthy tissue, in the subcutaneous layer and to muscle (bone is palpable and not exposed.) Percentage of wound debrided: 100 Instrument Used: 5mm curette Tissue Removed: subcutaneous tissue, muscle, senescent cells, bioburden Severity: Fat Layer Exposed (muscle is exposed. Bone is palpable and not exposed.) Amount of bleeding with debridement: Mild Bleeding Controlled with: Pressure and Compression and gauze Patient tolerated procedure: Patient tolerated procedure well Post-Debridement Measurements and Additional Note: Post-Debridement Measurements/Treatment - Nurse 1 - General Ulcer Assessment Start: 11/11/23 13:36 Freq: Status: Active Protocol: .LOWBRENDAT Activity Type Activity Date Activity User E-sign Co-sign Detail Recorded Client Recorded Date Recorded By Document 11/11/23 13:40 KW Desktop 11/11/23 13:52 KW 11/11/23 13:40 - Today's Visit Information Type of service Follow-up Visit (Physician/[employer] ) Arrival Mode Wheelchair Transfer Assistance Gerry Lift Transfer Assist (Other) 2 Patient Identification Verified (Name & Yes ) Patient Requires Transmission-Based No Precautions Height and Weight Body Mass Index (BMI) 41.1 BMI Classification Obese Vital Signs Temperature Source Temporal Pulse Location Monitor Respiratory rate source Observation Oxygen Delivery Method Room Air Source Monitor Position Sitting Pain Scale: 0-10 Numeric Is Patient Pain Free? Yes - Nurse 1 - General Ulcer Measurement Start: 11/11/23 13:36 Freq: Status: Active Protocol: Activity Type Activity Date Activity User E-sign Co-sign Detail Recorded Client Recorded Date Recorded By Document 11/11/23 13:40 KW Desktop 11/11/23 13:52 KW 11/11/23 13:40 Wound Center Nurse 1 #5 L Buttocks -Combined with other wound No -Current Size (cm) - Length 1.5 -Current Size (cm) - Width 1.3 -Current Size (cm) - Depth 0.1 -Total Square Cm 1.95 -Date of Last Picture (Recall this 11/11/23 field) -Photo Taken Yes -Epithelialization Small 1-33% -Tunneling No -Undermining/Tunneling No -Circular Undermining No -Exudate Amt Medium -Exudate Type Serosanguineous -Wound Margin Flat & Intact -Granulation Amt Medium (34-66%) -Granulation Quality Red -Slough/Fibrin Yes -Necrosis Amt Small (1-33%) -Necrotic Tissue Type Adherent Slough -Texture (Chelsey-wound Skin Appearance) Assessed, Fluctuance -Moisture (Chelsey-wound Skin Appearance) Assessed -Color (Chelsey-wound Skin Appearance) Assessed -Temperature (Chelsey-wound Skin No Abnormality Appearance) (Pt Warm) -Tenderness on Palpation (Chelsey-wound No Skin Appearance) -Ulcer Cleansing Soap and Water -Foul Odor after Cleansing No -Anesthetic Used 4% Lidocaine Solution 4. rt plantar foot cluster -Wound Comment(s) PT DOES NOT WANT US TO EVAL /TX HIS RLE WOUNDS. STATES THE SENIOR CARE WILL BE TREATING THOSE. #1 L Ischial -Combined with other wound No -Current Size (cm) - Length 1.5 -Current Size (cm) - Width 1.9 -Current Size (cm) - Depth 1.8 -Total Square Cm 2.85 -Date of Last Picture (Recall this 11/11/23 field) -Photo Taken Yes -Epithelialization None Present -Tunneling No -Undermining/Tunneling No -Circular Undermining No -Exudate Amt Large -Exudate Type Serosanguineous -Wound Margin Thickened & Rolled Under -Granulation Amt Large (67-100%) -Granulation Quality Pale,[place] -Texture (Chelsey-wound Skin Appearance) Assessed, Scarring -Moisture (Chelsey-wound Skin Appearance) Assessed, Maceration -Color (Chelsey-wound Skin Appearance) Assessed -Temperature (Chelsey-wound Skin No Abnormality Appearance) (Pt Warm) -Tenderness on Palpation (Chelsey-wound No Skin Appearance) -Ulcer Cleansing Soap and Water -Foul Odor after Cleansing No -Anesthetic Used 4% Lidocaine Solution WC - Nurse 2 - General Ulcer CM Notes Start: 11/11/23 13:36 Freq: Status: Active Protocol: Activity Type Activity Date Activity User E-sign Co-sign Detail Recorded Client Recorded Date Recorded By Document 11/11/23 14:07 GM Desktop 11/11/23 14:13 GM Edit Result 11/11/23 14:07 GM (1) Desktop 11/11/23 14:14 GM Edit Result 11/11/23 14:07 GM (2) Desktop 11/11/23 14:17 GM (1) #5 L Buttocks - Bleeding Controlled with Pressure => Pressure,Silver => Nitrate (2) #5 L Buttocks - Debridement - Subq, 1st 20sq cm No => Yes 11/11/23 14:07 Wound Center Nurse 2 #5 L Buttocks -Time 14:07 -Correct Patient Yes -Correct Side, Site, Position Yes -Correct Procedure Yes -Procedure Performed Yes -Type of Procedure Debridement -Clinical Debridement Subcutaneous -Tissue Removed Subcutaneous -Post Debridement (cm) - Length 1.2 -Post Debridement (cm) - Width 2.0 -Post Debridement (cm) - Depth 0.1 -Total Square (Post) (cm) 2.40 -Area of Debridement (cm) - Length 1.2 -Area of Debridement (cm) - Width 2.0 -Total Square (Area) (cm) 2.40 -Tunneling No -Undermining/Tunneling No -Circular Undermining No -Wound/Ulcer Outcome Not Healed -Ulcer Cleansing Rinsed/ Irrigated with Saline -Foul Odor after Cleansing No -Bioengineered Tissue No -Bleeding Controlled with Pressure,Silver Nitrate -Treatment Response Procedure Tolerated Well -Debridement - Subq, 1st 20sq cm Yes #1 L Ischial -Time 14:11 -Correct Patient Yes -Correct Side, Site, Position Yes -Correct Procedure Yes -Procedure Performed Yes -Type of Procedure Debridement -Clinical Debridement Muscle / Fascia -Tissue Removed Muscle -Post Debridement (cm) - Length 3.8 -Post Debridement (cm) - Width 1.5 -Post Debridement (cm) - Depth 0.8 -Total Square (Post) (cm) 5.70 -Area of Debridement (cm) - Length 3.8 -Area of Debridement (cm) - Width 1.5 -Total Square (Area) (cm) 5.70 -Wound/Ulcer Outcome Not Healed -Ulcer Cleansing Rinsed/ Irrigated with Saline -Foul Odor after Cleansing No -Bioengineered Tissue No -Bleeding Controlled with Pressure -Treatment Response Procedure Tolerated Well -Debridement - Muscle / Fascia, 1st Yes 20sq cm Pain Scale: 0-10 Numeric Is Patient Pain Free? Yes - Nurse 3 - General Ulcer D/C NN Start: 11/11/23 13:36 Freq: Status: Active Protocol: Activity Type Activity Date Activity User E-sign Co-sign Detail Recorded Client Recorded Date Recorded By Document 11/11/23 14:25 KW Desktop 11/11/23 14:26 KW 11/11/23 14:25 Wound Care Center Nurse 3 #5 L Buttocks -Primary Dressing Applied Silvercel -Primary Dressing Covered/Secured with Dry Gauze -Silvercel 1 #1 L Ischial -Primary Dressing Applied Mepilex Border -Other Dressing DAKINS MOISTENED GAUZE -Mepilex Border 1 Pain Scale: 0-10 Numeric Is Patient Pain Free? Yes WC - Visit Discharge Discharge Condition Stable Ambulatory Status Wheelchair Medication Reconcilliation completed & No provided to patient/care provider Clinical Summary of Care Provided Yes Additional Wound Wound debrided: buttocks ulcer Laterality: Left Wound Grade/Stage: Stage II Type of Debridement: Excisional debridement Anesthesia Used: 5% Lidocaine Gel Depth: Down to and including healthy tissue and in the subcutaneous layer Percentage of wound debrided: 100 Instrument Used: 5mm curette Tissue Removed: Non viable tissue and slough Severity: Fat Layer Exposed Amount of bleeding with debridement: Mild Bleeding Controlled with: Compression and gauze Patient tolerated procedure: Patient tolerated procedure well Assessment/Plan Assessment/Plan (1) 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, stage 4: CODE(S): L89.324 - Pressure ulcer of left buttock, stage 4 (2) Ulcer of right foot with fat layer exposed: CODE(S): L97.512 - Non-pressure chronic ulcer of other part of right foot with fat layer exposed (3) Ulcer of right foot due to type 2 diabetes mellitus: CODE(S): E11.621 - Type 2 diabetes mellitus with foot ulcer; L97.519 - Non-pressure chronic ulcer of other part of right foot with unspecified severity (4) Open wound of left buttock without complication: CODE(S): S31.829A - Unspecified open wound of left buttock, initial encounter QUALIFIERS: Encounter type: initial encounter Qualified Code(s): S31.829A - Unspecified open wound of left buttock, initial encounter (5) Chronic kidney disease with end stage renal failure on dialysis: CODE(S): N18.6 - End stage renal disease; Z99.2 - Dependence on renal dialysis (6) DM type 2, goal HbA1c < 7%: CODE(S): E11.9 - Type 2 diabetes mellitus without complications (7) Community acquired MRSA infection: CODE(S): A49.02 - Methicillin resistant Staphylococcus aureus infection, unspecified site PLAN: Plan Patient evaluated at the wound healing center today. He states that he is no seeing a feed research technician for his right foot ulcers. Wound care - Dakins 0.25% moistened gauze covered with ABD daily to the left ischial ulcer after washing with soap and water. Left buttock wound place Silvercel covered with gauze/ABD daily after washing with soap and water. Encouraged off loading and not sitting or laying on the ulcer area for long periods of time. If he is up in a wheelchair, he needs to shift/reposition every 10 minutes for 10 seconds. Encouraged increased protein intake to help with wound healing. He would benefit from protein supplementation. He has ESRD and has dialysis M,T,TH,F. Left ischial wound culture from 07/16/23 showed Proteus mirabilis, E. coli, Enterococcus gallinarum, and MRSA. He was treated with Vancomycin and Zosyn in the hospital. He was discharged on Linezolid and Augmentin and has finished them. Left AKA wound culture from 08/22/23 positive for Proteus mirabilis. He was started on Augmentin and has finished them. Left ischial ulcer wound culture from 10/15/23 positive for Proteus mirabilis, MRSA, Enterococcus faecalis, Enterococcus avium Anaerobic cocci. He is being treated with Augmentin and Doxycycline. Patient has diabetes mellitus. His HgbA1c from 2/2/24 was 6.4. For elective surgeries, the HgbA1c needs to be less than 8. He is scheduled for an operative debridement on December 08, 2023 of his left ischial ulcer. Followup [address] Villagran's previous note: The patient would benefit from going to surgery for an operative excision of the left ischial pressure sore. The surrounding skin is macerated from the drainage from the ulcer. A lot of abnormal bursal scar tissue is present. Suspect bone is involved. A partial ostectomy would also be done to look for osteomyelitis. Soft tissue and bone would be sent to Pathology for analysis to rule out carcinoma and to evaluate for osteomyelitis. Soft tissue and bone would be sent to Microbiology for culture. A positive culture would necessitate antibiotic therapy. Surgery would be done with a surgical observation overnight stay in the hospital. A VAC can be applied prior to discharge. As an outpatient it would be changed three times per week at 150 mmHg continuous suction. Patient is aware that the postop wound will be bigger. He voices understanding. Patient was informed of the risks and complications of the procedure including alternatives to surgery. These were discussed with the patient personally. Patient voices understanding and wishes to proceed. Potential risks and complications included but not inclusive of bleeding, infection, hematoma, bruising, swelling, loss of sensation to skin, wound breakdown, need for wound care, poor scarring, poor aesthetic outcome, intra operative cardiac or neurologic events, DVT, PE, and reaction to anesthesia. Surgery has been scheduled December 07.
--- NOTE | 2023-11-12 14:58 | WC ---
11/11/2023 LEFT ISCHIAL/BUTTOCK
[2023-11-25 13:43] VITALS: BMI 41.1
--- NOTE | 2023-11-25 15:45 | PCM.WC.PN ---
History of Present Illness Date of Service: 11/25/23 Chief Complaint: Left ischial ulcer and left AKA stump wound History of Wound: 38 year old male has a chronic ulcer of his left ischium. He was admitted at [facility] from 07/16/23 to 07/19/23 for a cough, fever and chills. Patient was admitted for acutely infected chronic left ischial/sacral wound with concern for osteomyelitis, started on IV antibiotics. He has a history of ESRD on hemodialysis. History of failed kidney transplant, chronic systolic heart failure, hypertension, hyperlipidemia, diabetes mellitus type II, left AKA, and incomplete paraplegia. He resides at [facility] where he receives his hemodialysis. He had an operative debridement of his left ischial ulcer at [facility] 2 years ago, per the patient. CT of abdomen and pelvis on 07/16/23, related to the ulcer showed There is a decubitus ulcer in the left gluteus with extension into and sclerotic and erosive involvement of the left initial tuberosity. This is concerning for osteomyelitis. Ischial wound culture obtained on 07/16/23 which was positive for Proteus mirabilis, Escherichia coli, Enterococcus gallinarum, and MRSA. ID was consulted and he was treated with Vancomycin and Zosyn IV He was discharged on Linezolid and Augmentin and has finished them. He developed a wound on his left AKA stump which is now healed. Left AKA wound culture from 08/22/23 positive for Proteus mirabilis. He was started on Augmentin and has finished them. Left ischial ulcer wound culture from 10/15/23 positive for Proteus mirabilis, MRSA, Enterococcus faecalis, Enterococcus avium Anaerobic cocci. He is being treated with Augmentin and Doxycycline. Today he denies fever, chills, nausea or vomiting. Patient has diabetes mellitus. His last HgbA1c from 08/09/23 is 6.4. For elective surgeries, his HgbA1c needs to be less than 8. Progress of Wound: Left ischial ulcer, thickened scar tissue surrounding the ulcer. There is maceration surrounding the ulcer. There is an odor from the drainage. The wound on left buttocks is healed. We are no longer seeing the ulcer on his feet, he is seeing a records supervisor who is managing them. He was recently hospitalized for UTI and has a PICC line for IV antibiotics for a week. Objective Data Objective Data Vital Signs: Vital Signs Temp Pulse Resp BP O2 Del Method 98.2 F 90 20 H 188/85 H Room Air 11/06/23 00:19 11/06/23 00:19 11/06/23 00:19 11/06/23 00:19 11/11/23 13:40 Oxygen Delivery Method Room Air Weight: 302 lb 12.736 oz Body Mass Index (BMI) 41.1 Charges/Coding Procedures Integumentary 111xxx-113xx: 50538 Marycarmen musc/fascia 20 sq cm/< (Left ischial ulcer) Debridement Note Debridement Note Wound debrided: #1 Left ischial area. Laterality: Left Wound Grade/Stage: IV. Type of Debridement: Excisional debridement Anesthesia Used: 5% Lidocaine Gel Depth: Down to and including healthy tissue, in the subcutaneous layer and to muscle (bone is palpable and not exposed.) Percentage of wound debrided: 100 Instrument Used: 5mm curette Tissue Removed: subcutaneous tissue, muscle, senescent cells, bioburden Severity: Fat Layer Exposed (muscle is exposed. Bone is palpable and not exposed.) Amount of bleeding with debridement: Mild Bleeding Controlled with: Pressure and Compression and gauze Patient tolerated procedure: Patient tolerated procedure well Post-Debridement Measurements and Additional Note: Post-Debridement Measurements/Treatment - Nurse 1 - General Ulcer Assessment Start: 11/11/23 13:36 Freq: Status: Active Protocol: .COURTNEY Activity Type Activity Date Activity User E-sign Co-sign Detail Recorded Client Recorded Date Recorded By Document 11/11/23 13:40 KW Desktop 11/11/23 13:52 KW Document 11/25/23 13:43 KW wound center 11/25/23 13:45 KW 11/11/23 11/25/23 13:40 13:43 - Today's Visit Information Type of service Follow-up Visit Follow-up Visit (Physician/METALLURGICAL ANALYST (Physician/METALLURGICAL ANALYST ) ) Arrival Mode Wheelchair Wheelchair Transfer Assistance Gerry Lift Gerry Lift Transfer Assist (Other) 2 Patient Identification Verified (Name & Yes Yes ) Patient Requires Transmission-Based No Precautions Height and Weight Body Mass Index (BMI) 41.1 41.1 BMI Classification Obese Obese Vital Signs Temperature Source Temporal Pulse Location Monitor Respiratory rate source Observation Oxygen Delivery Method Room Air Source Monitor Position Sitting History Since Last Visit- (Skip if this is Patient's initial visit) Have you changed medications since your No last visit? Any new allergies or adverse reactions No Had a fall/change in ADL's that may No increase risk of falls Signs or symptoms of abuse and/or No neglect since last visit Have you been in the hospital since your No last visit? Has dressing in place as prescribed Yes Has compression in place as prescribed Yes Has offloadiing in place as prescribed N/A Experienced any changes in pain level or No management Left Footwear Regular Shoe Right Footwear Regular Shoe Pain Scale: 0-10 Numeric Is Patient Pain Free? Yes Yes WC - Nurse 1 - General Ulcer Measurement Start: 11/11/23 13:36 Freq: Status: Active Protocol: Activity Type Activity Date Activity User E-sign Co-sign Detail Recorded Client Recorded Date Recorded By Document 11/11/23 13:40 KW Desktop 11/11/23 13:52 KW Document 11/25/23 13:43 KW wound center 11/25/23 13:45 KW 11/11/23 11/25/23 13:40 13:43 Wound Center Nurse 1 4. rt plantar foot cluster -Wound Comment(s) PT DOES NOT WANT US TO EVAL /TX HIS RLE WOUNDS. STATES THE SENIOR CARE WILL BE TREATING THOSE. #5 L Buttocks -Combined with other wound No -Current Size (cm) - Length 1.5 0 -Current Size (cm) - Width 1.3 0 -Current Size (cm) - Depth 0.1 0 -Total Square Cm 1.95 0 -Date of Last Picture (Recall this 11/11/23 field) -Photo Taken Yes -Epithelialization Small 1-33% -Tunneling No -Undermining/Tunneling No -Circular Undermining No -Exudate Amt Medium -Exudate Type Serosanguineous -Wound Margin Flat & Intact -Granulation Amt Medium (34-66%) -Granulation Quality Red -Slough/Fibrin Yes -Necrosis Amt Small (1-33%) -Necrotic Tissue Type Adherent Slough -Texture (Chelsey-wound Skin Appearance) Assessed, Fluctuance -Moisture (Chelsey-wound Skin Appearance) Assessed -Color (Chelsey-wound Skin Appearance) Assessed -Temperature (Chelsey-wound Skin No Abnormality Appearance) (Pt Warm) -Tenderness on Palpation (Chelsey-wound No Skin Appearance) -Ulcer Cleansing Soap and Water -Foul Odor after Cleansing No -Anesthetic Used 4% Lidocaine Solution #1 L Ischial -Combined with other wound No -Current Size (cm) - Length 1.5 1.1 -Current Size (cm) - Width 1.9 0.7 -Current Size (cm) - Depth 1.8 0.1 -Total Square Cm 2.85 0.77 -Date of Last Picture (Recall this 11/11/23 field) -Photo Taken Yes -Epithelialization None Present -Tunneling No -Undermining/Tunneling No -Circular Undermining No -Exudate Amt Large Small -Exudate Type Serosanguineous Serosanguineous -Wound Margin Thickened & Distinct, Rolled Under Outline Attached -Granulation Amt Large (67-100%) Large (67-100%) -Granulation Quality Pale,[place] -Necrosis Amt Small (1-33%) -Necrotic Tissue Type Adherent Slough -Texture (Chelsey-wound Skin Appearance) Assessed, Assessed Scarring -Moisture (Chelsey-wound Skin Appearance) Assessed, Assessed Maceration -Color (Chelsey-wound Skin Appearance) Assessed Assessed -Temperature (Chelsey-wound Skin No Abnormality Appearance) (Pt Warm) -Tenderness on Palpation (Chelsey-wound No No Skin Appearance) -Ulcer Cleansing Soap and Water Soap and Water -Foul Odor after Cleansing No No -Anesthetic Used 4% Lidocaine 4% Lidocaine Solution Solution WC - Nurse 2 - General Ulcer CM Notes Start: 11/11/23 13:36 Freq: Status: Active Protocol: Activity Type Activity Date Activity User E-sign Co-sign Detail Recorded Client Recorded Date Recorded By Document 11/11/23 14:07 GM Desktop 11/11/23 14:13 GM Edit Result 11/11/23 14:07 GM (1) Desktop 11/11/23 14:14 GM Edit Result 11/11/23 14:07 GM (2) Desktop 11/11/23 14:17 GM Document 11/25/23 14:06 DS [id number] 11/25/23 14:10 DS (1) #5 L Buttocks - Bleeding Controlled with Pressure => Pressure,Silver => Nitrate (2) #5 L Buttocks - Debridement - Subq, 1st 20sq cm No => Yes 11/11/23 11/25/23 14:07 14:06 Wound Center Nurse 2 #5 L Buttocks -Time 14:07 14:10 -Correct Patient Yes No -Correct Side, Site, Position Yes No -Correct Procedure Yes No -Procedure Performed Yes No -Type of Procedure Debridement -Clinical Debridement Subcutaneous -Tissue Removed Subcutaneous -Post Debridement (cm) - Length 1.2 0 -Post Debridement (cm) - Width 2.0 0 -Post Debridement (cm) - Depth 0.1 0 -Total Square (Post) (cm) 2.40 0 -Area of Debridement (cm) - Length 1.2 0 -Area of Debridement (cm) - Width 2.0 0 -Total Square (Area) (cm) 2.40 0 -Tunneling No -Undermining/Tunneling No -Circular Undermining No -Wound/Ulcer Outcome Not Healed Healed- Epithelialized -Ulcer Cleansing Rinsed/ Irrigated with Saline -Foul Odor after Cleansing No -Bioengineered Tissue No -Bleeding Controlled with Pressure,Silver Nitrate -Treatment Response Procedure Tolerated Well -Debridement - Subq, 1st 20sq cm Yes #1 L Ischial -Time 14:11 14:09 -Correct Patient Yes Yes -Correct Side, Site, Position Yes Yes -Correct Procedure Yes Yes -Procedure Performed Yes Yes -Type of Procedure Debridement Debridement -Clinical Debridement Muscle / Fascia Muscle / Fascia -Tissue Removed Muscle Muscle,Fascia -Post Debridement (cm) - Length 3.8 2.5 -Post Debridement (cm) - Width 1.5 1.5 -Post Debridement (cm) - Depth 0.8 0.3 -Total Square (Post) (cm) 5.70 3.75 -Area of Debridement (cm) - Length 3.8 2.5 -Area of Debridement (cm) - Width 1.5 1.5 -Total Square (Area) (cm) 5.70 3.75 -Tunneling No -Undermining/Tunneling No -Circular Undermining No -Wound/Ulcer Outcome Not Healed Not Healed -Ulcer Cleansing Rinsed/ Rinsed/ Irrigated with Irrigated with Saline Saline -Foul Odor after Cleansing No -Bioengineered Tissue No -Bleeding Controlled with Pressure Pressure -Treatment Response Procedure Procedure Tolerated Well Tolerated Well -Debridement - Muscle / Fascia, 1st Yes Yes 20sq cm Pain Scale: 0-10 Numeric Is Patient Pain Free? Yes Yes WC - Nurse 3 - General Ulcer D/C NN Start: 11/11/23 13:36 Freq: Status: Active Protocol: Activity Type Activity Date Activity User E-sign Co-sign Detail Recorded Client Recorded Date Recorded By Document 11/11/23 14:25 KW Desktop 11/11/23 14:26 KW 11/11/23 14:25 Wound Care Center Nurse 3 #5 L Buttocks -Primary Dressing Applied Silvercel -Primary Dressing Covered/Secured with Dry Gauze -Silvercel 1 #1 L Ischial -Primary Dressing Applied Mepilex Border -Other Dressing DAKINS MOISTENED GAUZE -Mepilex Border 1 Pain Scale: 0-10 Numeric Is Patient Pain Free? 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, stage 4: CODE(S): L89.324 - Pressure ulcer of left buttock, stage 4 (2) Ulcer of right foot with fat layer exposed: CODE(S): L97.512 - Non-pressure chronic ulcer of other part of right foot with fat layer exposed (3) Ulcer of right foot due to type 2 diabetes mellitus: CODE(S): E11.621 - Type 2 diabetes mellitus with foot ulcer; L97.519 - Non-pressure chronic ulcer of other part of right foot with unspecified severity (4) Open wound of left buttock without complication: CODE(S): S31.829A - Unspecified open wound of left buttock, initial encounter QUALIFIERS: Encounter type: initial encounter Qualified Code(s): S31.829A - Unspecified open wound of left buttock, initial encounter (5) Chronic kidney disease with end stage renal failure on dialysis: CODE(S): N18.6 - End stage renal disease; Z99.2 - Dependence on renal dialysis (6) DM type 2, goal HbA1c < 7%: CODE(S): E11.9 - Type 2 diabetes mellitus without complications (7) Community acquired MRSA infection: CODE(S): A49.02 - Methicillin resistant Staphylococcus aureus infection, unspecified site PLAN: Plan Patient evaluated at the wound healing center today. He states that he is now seeing a records supervisor for his right foot ulcers. Wound care - Dakins 0.25% moistened gauze covered with ABD daily to the left ischial ulcer after washing with soap and water. Encouraged off loading and not sitting or laying on the ulcer area for long periods of time. If he is up in a wheelchair, he needs to shift/reposition every 10 minutes for 10 seconds. Encouraged increased protein intake to help with wound healing. He would benefit from protein supplementation. He has ESRD and has dialysis M,T,TH,F. Left ischial wound culture from 07/16/23 showed Proteus mirabilis, E. coli, Enterococcus gallinarum, and MRSA. He was treated with Vancomycin and Zosyn in the hospital. He was discharged on Linezolid and Augmentin and has finished them. Left AKA wound culture from 08/22/23 positive for Proteus mirabilis. He was started on Augmentin and has finished them. Left ischial ulcer wound culture from 10/15/23 positive for Proteus mirabilis, MRSA, Enterococcus faecalis, Enterococcus avium Anaerobic cocci. He is being treated with Augmentin and Doxycycline. Patient has diabetes mellitus. His HgbA1c from 08/09/23 was 6.4. For elective surgeries, the HgbA1c needs to be less than 8. He is scheduled for an operative debridement on December 09, 2023 of his left ischial ulcer. Followup 2-3 weeks.
== END 2023-12-06 23:59 | disposition home or self-care (01) ==
LOC: WC 13:30
PROVIDERS: PCP Internal Medicine; Referring Provider Nurse Practitioner Family; Visit Provider Nurse Practitioner Family
DX: L89.324 Pressure ulcer of left buttock, stage 4 (principal); I13.2 Hypertensive heart and chronic kidney disease with heart failure and with stage 5 chronic kidney disease, or end stage renal disease; G82.22 Paraplegia, incomplete; N18.6 End stage renal disease; E11.621 Type 2 diabetes mellitus with foot ulcer; L97.512 Non-pressure chronic ulcer of other part of right foot with fat layer exposed; I50.22 Chronic systolic (congestive) heart failure; E11.22 Type 2 diabetes mellitus with diabetic chronic kidney disease; Z79.4 Long term (current) use of insulin; E78.5 Hyperlipidemia, unspecified; Z99.2 Dependence on renal dialysis; Z79.01 Long term (current) use of 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; Z79.890 Hormone replacement therapy; Z79.899 Other long term (current) drug therapy; Z86.14 Personal history of Methicillin resistant Staphylococcus aureus infection
CPT/HCPCS: 11042; 11043

== ENCOUNTER → 2023-11-25 | Outpatient (REF) | payer MEDICARE, MEDICAID, SELFPAY ==
[2023-11-25 11:08] LABS: Anion Gap 12 (5-15); BUN 105 mg/dL (7-18); BUN/Creat Ratio 9.2 RATIO (10-20); Calcium,Total 8.9 mg/dL (8.5-10.1); Chloride 98 mmol/L (98-107); EST Glomerular Filtration Rate 5 mL/min (>60); Est Glom Filt Rate - Afr Amer 7 mL/min (>60); Glucose 232 mg/dL (74-106); Potassium 5.3 mmol/L (3.5-5.1); Sodium Level 134 mmol/L (136-145)
== END ==
LOC: OLS.SW 04:00
PROVIDERS: PCP Internal Medicine; Referring Provider Internal Medicine; Visit Provider Internal Medicine
DX: E11.9 Type 2 diabetes mellitus without complications (principal)
CPT/HCPCS: 80048

== ENCOUNTER → 2023-12-05 05:00 | Outpatient (REF) | payer MEDICARE, MEDICAID, SELFPAY ==
[2023-12-05 08:32] LABS: Hemoglobin 10.4 g/dL (13.0-16.5); Mean Corp Hgb Conc 31.5 g/dL (32-36); Mean Corpuscular Volume 95.1 fL (80-94); Mean Platelet Vol. 11.3 fl (6.2-12.0); Platelet Count 118 K/mm3 (150-450); RBC Distribution Width SD 51.7 fl (35.1-43.9); Red Blood Count 3.47 M/mm3 (4.6-6.2); White Blood Count 5.8 K/mm3 (4.4-11.0)
== END ==
LOC: OLS.SW 05:00
PROVIDERS: PCP Internal Medicine; Visit Provider Internal Medicine
DX: D64.9 Anemia, unspecified (principal); N18.9 Chronic kidney disease, unspecified
CPT/HCPCS: 36415; 85027

== ENCOUNTER 2023-12-09 10:15 | Inpatient (IN) | payer MEDICARE, MEDICAID, SELFPAY ==
[2023-12-09] VITALS (14 sets, daily range): BP systolic 126–152; BP diastolic 49–104; PULSE 66–77; RESP 14–20; TEMP 36.1–36.9; O2SAT 93–100; BMI 43.5
[2023-12-09] MEDS: 0.9% Normal Saline (1000mL) 1,000 ML 15 ML IV (07:16)
[2023-12-09 07:23] LABS: Bedside Glucose 164 mg/dL (74-106)
[2023-12-09 07:30] LABS: Thyroid Stim Hormone (TSH) 3.38 uIU/mL (0.358-3.74)
--- NOTE | 2023-12-09 07:30 | PRES_PTH ---
PATIENT: CHINA GUILLEN III LOC: ID3 U#:[id number] AGE/SX: 38/M ROOM: [facility] RE12/10/[address]: Dr. Yusuf Villagran MD : 1985 BED: 1 DIS: 12/12/2023 SPEC #: [id number] RECD: 12/09/23 13:05 STATUS: TREVON DEV #: [id number] SANCHEZ: 12/09/23 07:[address]: Yusuf Villagran DEPT: SURGICAL PATHOLOGY RECD BY: Gayathri Simmons ENTERED: 12/09/23 13:30 SP TYPE: PRESS SORE OTHR DR: Dr. Vanessa Hutchins MD Tissues: A - Ischium, NOS B - Ischium, NOS Procedures: Decalcification bone/plaque Surgery Specimen Level IV HEADER OPERATION: Excision left ischial pressure sore with partial ostectomy PRE-OP DIAGNOSIS: Left ischial ulcer TISSUE SUBMITTED: A- Soft tissue left ischial pressure sore, B- Bone left ischial pressure sore MICROSCOPIC DIAGNOSIS A. Left ischial pressure sore soft tissue, excision: Focal ulceration, extensive dense fibrosis and granulation tissue reaction. Skin with verrucous changes, psuedoepitheliumatous hyperplasia, hyperkeratosis and parakeratosis. B. Left ischial pressure sore bone, excision: Bone with extensive chronic inflammation and reactive changes. Focal mild acute osteomyelitis. / 12/13/2023 MICROSCOPIC DESCRIPTION Slides are reviewed. GROSS DESCRIPTION A. Received in fixative is one container labeled with the patient's name and designated Soft tissue left ischial pressure sore. The specimen consists of a piece of skin with underlying tissue measuring 6.5 x 5.5cm and up to 9.0cm in thickness. Also present in the container are two pieces of barron indurated tissue measuring in aggregate 5.5 x 6.5 x 3.0cm. The skin surface of the largest piece shows focal area of ulceration. The smallest piece also shows a focal area of bone formation. Entry Level Lab Technician sections are submitted in four cassettes (cassette four is submitted after decalcification). B. Received in fixative is one container labeled with the patient's name and designated Bone left ischial pressure sore. The specimen consists of four variable sized pieces of bone measuring in aggregate 3.8 x 2.0 x 0.5cm. The entire specimen is submitted in two cassettes after decalcification. / 12/09/2023 TC:2 CPT:[id number],[id number]
[2023-12-09] MEDS: Cefazolin 3 GM in 0.9% Normal Saline (100mL Bag) 100 ML IV (07:34)
[2023-12-09 08:33] LABS: Hemoglobin A1c 6.5 % (3.8-5.6)
[2023-12-09] MEDS: Lidocaine 1% /Epi 1:100 (20ml) 20 ML Vial (10:04)
--- NOTE | 2023-12-09 10:09 | PCM.OPRPT ---
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 Left ischial pressure sore, Stage IV. 2. Osteomyelitis. 3. End stage renal failure on dialysis. 4. Diabetes mellitus. 5. MRSA. 6. History of DVT. 7. correction anticoagulation with Eliquis. Post-Operative Diagnosis: Same. Surgery/Procedure Performed:: Excision left ischial pressure sore, Stage IV, with partial ostectomy for osteomyelitis. Description of Surgical Findings:: 38 year old male has a chronic ulcer of his left ischium. He was admitted at [facility] from 07/16/23 to 07/19/23 for a cough, fever and chills. Patient was admitted for acutely infected chronic left ischial/sacral wound with concern for osteomyelitis, started on IV antibiotics. He has a history of ESRD on hemodialysis. History of failed kidney transplant, chronic systolic heart failure, hypertension, hyperlipidemia, diabetes mellitus type II, left AKA, and incomplete paraplegia. He resides at [facility] where he receives his hemodialysis. He had an operative debridement of his left ischial ulcer at [facility] 2 years ago, per the patient. CT of abdomen and pelvis on 07/16/23, related to the ulcer showed There is a decubitus ulcer in the left gluteus with extension into and sclerotic and erosive involvement of the left initial tuberosity. This is concerning for osteomyelitis. Ischial wound culture obtained on 07/16/23 which was positive for Proteus mirabilis, Escherichia coli, Enterococcus gallinarum, and MRSA. ID was consulted and he was treated with Vancomycin and Zosyn IV He was discharged on Linezolid and Augmentin and has finished them. Left ischial ulcer wound culture from 10/15/23 positive for Proteus mirabilis, MRSA, Enterococcus faecalis, Enterococcus avium Anaerobic cocci. He is being treated with Augmentin and Doxycycline. Patient has diabetes mellitus. His last HgbA1c from 08/09/23 is 6.4. For elective surgeries, his HgbA1c needs to be less than 8. Patient was informed of the risks and complications of the procedure including alternatives to surgery. These were discussed with the patient personally. Patient voices understanding and wishes to proceed. Potential risks and complications included but not inclusive of bleeding, infection, hematoma, bruising, swelling, poor scarring, poor aesthetic outcome, intra operative cardiac or neurologic events, DVT, PE, and reaction to anesthesia. Size of wound left ischial pressure sore - 11 x 6 x 8 cm or 66 cm2. I used Hemoblast Gretta absorbable hemostat, Catalog Number - [id number]. Lot Number - [id number]. Device Identifier - [id number]. Expiration - April 16, 2026. Surgeon: Yusuf Villagran MD nuclear supervising operator: None Type of Anesthesia: General Anesthesiologist: Marcelo Burnett MD and Lori Dorantes CRNA Specimen's removed: 1. Left ischial pressure sore soft tissue to Pathology and Microbiology. 2. Left ischial pressure sore bone to Pathology and Microbiology. Drains: None. Estimated Blood Loss (mL): 450. Fluids Replaced: 400 ml (IV fluids 400 ml, Urine Output minimal). Description of Procedure: Patient was taken to OR in supine position and was placed under general anesthesia. He was then placed in the prone position. The left ischial and buttock areas were prepped and draped in the usual fashion. SCD's were placed for DVT prophylaxis. Perioperative antibiotics were given intravenously. Using xylocaine with epinephrine, the left ischial pressure sore was infiltrated. After waiting 5 minutes for the anesthetic to take effect, I made an incision around the pressure sore into the subcutaneous tissue and through the muscle to the ischial bone. Extensive dense scar tissue was seen and excised. No pus was seen. The soft tissue including some muscle and some fat necrosis was excised. With the bone exposed and using an osteotome and a mallet, I proceeded with a partial ostectomy of the ischial bone. I took several representative government relations pieces of bone at the base of the pressure sore. A rasp was used to help smooth out the bony edges. Hemostasis was obtained with electrocautery. Slight oozing was seen in the depth of the ulcer in close proximity to vascular structures. I used Hemoblast Gretta and sprayed it in the base of the ulcer to help with hemostasis. The wound was irrigated with saline. The dimensions of the wound after excision of the left ischial pressure sore with partial ostectomy for osteomyelitis was 11 x 6 x 8 cm or 66 cm2. Half the soft tissue and half the bone was sent to Pathology for analysis to rule out carcinoma and to evaluate for osteomyelitis. Half the soft tissue and half the bone was sent to Microbiology for culture. A positive culture will necessitate antibiotic therapy. The wound was dressed with Mepitel nonadherent dressing followed by Kerlix gauze and Betadine. This was followed with a dry Kerlix gauze and ABD pads compression dressing. Patient tolerated the procedure well and was sent to PACU in satisfactory condition. Patient will be sent upstairs for continued postop care. Will apply the VAC tomorrow. If oozing present, will continue a compression dressing and apply the VAC the following day. He is getting dialysis tomorrow. The operative blood loss was 450 ml. Will keep an eye on his Hgb while in the hospital. After discharge will followup at the Wound Center. Grafts/Implants Used: Hemoblast Gretta. Procedure Start Time: 08:13 Procedure Stop Time: 10:06 Complications None. Admit VTE Documentation VTE Present on Admission: No VTE Mechan Device Prophylaxis: SCD's VTE Pharm Prophylaxis ordered?: Yes Addendum Addendum: Surgery Charges CPT - 65832 ICD-10 - L89.324, M876.9, N18.6, E11.9, A49.02, Z86.718, Z79.01
[2023-12-09] MEDS: SEVELAMER CARBONATE 800 MG TABLET 2400 MG PO ×2 (14:09→21:57)
[2023-12-09] MEDS: hydrALAZINE 50 MG Tablet PO ×2 (14:09→21:57)
[2023-12-09] MEDS: oxyCODONE 5 MG Tablet 10 MG PO ×2 (15:59→21:56)
[2023-12-09] MEDS: Cefazolin 1 GM/50 ML BAG IV (16:00)
--- NOTE | 2023-12-09 16:02 | CON.PCM.HO_ITS ---
Assessment & Plan Assessment/Plan (1) Open wound of left buttock without complication: QUALIFIERS: Encounter type: initial encounter Qualified Code(s): S31.829A - Unspecified open wound of left buttock, initial encounter (2) Ulcer of right foot with fat layer exposed: PLAN: Plan #left stage IV ischial pressure sore excision with partial ostectomy for osteomyelitis. * today is POD 0 * management as per primary service. * pain management as per primary service * incentive spirometry * PT/OT on board * #Type 2 diabetes mellitus * A1C is 6.5. * ISS. Accuchecks ACHS * on lantus 24 units daily * #ESRD * on hemodialysis Saturday, Saturday, and Saturday. Nephrology consulted. * on tacrolimus * on midodrine with dialysis for ESRD. * # Hyperlipidemia; on atorvastatin and hydralazine. #Hypertension: on carvedilol. #Hypothyroidism: on synthroid. #History of DVT: on eliquis #VITO; 3L of ooxygen QHs. TO follow up on ouptatient basis for sleep studies to see if he qualifies for CPAP #Depression and anxiety: on lexapro #Super morbid obesity: BMI is 42.5. Complicates acute care, expected recovery and prognosis #s/p left BKA; stable DVT prophylaxis: on eliquis Thank you for the courtesy of the consult. Hospitalist service will continue to follow with you. HPI Consult Data Date of Consult: 12/09/23 HPI Narrative Reason for Consultation: medical management HPI Narrative: CHINA GUILLEN, is a 38 M with a PMH as outlined who was admitted to the service of plastic surgery sservice for excision of left stage IV ischial pressure sore with partial ostectomy for osteomyelitis. Hospitalist service was consulted for medical management. Patient seen and examined after surgery. Pain was well controlled. He had no active complaints. Vitals were temp of 97.8F, Pr of 67, BP of 126/77, RR of 16 and pulse ox of 98% on 2L of oxygen. CBC and BMP not done. A1c is 6.5%. he is also on dialysis. Will consult nephrology. [facility] Medical History (Updated 12/06/23 @ 12:24 by Nickie Delgado) Lives in care home Anxiety Open wound Insulin dependent diabetes mellitus Uses wheelchair Injury of back Community acquired MRSA infection Non-healing wound of amputation stump Hypomagnesemia Hyperosmolality and hypernatremia Neurogenic bowel Pericardial effusion (noninflammatory) SIRS (systemic inflammatory response syndrome) Pyrexia Hyperkalemia Pneumonia Kidney transplant failure Dependence on renal dialysis Pressure ulcer of left heel, unspecified stage Gastro-esophageal reflux disease without esophagitis Acute on chronic systolic (congestive) heart failure Other pericardial effusion (noninflammatory) Other pulmonary embolism without acute cor pulmonale Hypertensive heart and chronic kidney disease with heart failure and stage 1 through stage 4 chronic kidney disease, or unspecified chronic kidney disease Depression Hyperlipemia Hypothyroidism Anemia in chronic kidney disease Neuromuscular dysfunction of bladder, unspecified Paraplegia, incomplete Other acute osteomyelitis, left ankle and foot End stage renal disease Acute pulmonary edema Acute respiratory failure with hypoxia Home Medications ?Medication ?Instructions ?Recorded ?Last Taken ?Type acetaminophen 325 mg tablet 650 mg PO Q4H PRN PAIN/FEVER 01/02/23 04/21/23 History apixaban 5 mg tablet (Eliquis) 5 mg PO BID 01/02/23 07/16/23 History ascorbic acid (vitamin C) 500 mg 500 mg PO QHS 01/02/23 12/08/23 History tablet atorvastatin 40 mg tablet 40 mg PO QHS 01/02/23 12/08/23 History bisacodyl 10 mg rectal suppository 10 mg [place] DAILY PRN Constipation 01/02/23 Unknown History carvedilol 12.5 mg tablet 12.5 mg PO BID 01/02/23 12/09/23 History clotrimazole-betamethasone 1 1 applic topical QHS 01/02/23 07/15/23 History %-0.05 % topical cream dextrose 40 % oral gel (Glucose 15 g PO Q15M PRN Hypoglycemia 01/02/23 Unknown History Gel) hydralazine 25 mg tablet 50 mg PO Q8 01/02/23 12/09/23 History insulin glargine 100 unit/mL (3 24 unit subcut 1700 01/02/23 12/08/23 History mL) subcutaneous pen (Lantus Solostar U-100 Insulin) insulin lispro 100 unit/mL 6 unit subcut QHS 01/02/23 07/16/23 History subcutaneous pen (Humalog KwikPen (U-100) Insulin) midodrine 10 mg tablet 10 mg PO MOTUTHFR 01/02/23 12/09/23 History ondansetron HCl 4 mg tablet 4 mg PO Q8H PRN PRN Nausea 01/02/23 Unknown History pantoprazole 40 mg tablet,delayed 40 mg PO DAILY 01/02/23 12/08/23 History release polyethylene glycol 3350 17 gram 17 g PO DAILY PRN constipation 01/02/23 Unknown History oral powder packet promethazine 12.5 mg tablet 12.5 mg PO Q8H PRN Nausea 01/02/23 07/15/23 History sennosides 8.6 mg-docusate sodium 1 tab-cap PO BID Constipation 01/02/23 07/16/23 History 50 mg capsule (Senna Plus) tacrolimus 1 mg capsule, 2 mg PO Q12H 01/02/23 12/09/23 History immediate-release (Prograf) trazodone 50 mg tablet 150 mg PO QHS 01/02/23 12/08/23 History calcitriol 0.5 mcg capsule 1.25 mcg PO DAILY 04/21/23 12/08/23 History gabapentin 100 mg capsule 200 mg PO BID PHANTOM PAIN 04/21/23 12/09/23 History sevelamer HCl 800 mg tablet 2,400 mg PO TID 04/21/23 07/16/23 History escitalopram oxalate 20 mg tablet 15 mg PO QHS 07/16/23 07/16/23 History levothyroxine 150 mcg tablet 150 mcg PO DAILY 07/16/23 12/09/23 History oxycodone 10 mg tablet 10 mg PO Q4H PRN pain 2 days #12 07/19/23 Unknown Rx tabs acetaminophen 650 mg rectal 650 mg [place] Q4H PRN fever or pain 08/06/23 Unknown History suppository glucagon 1 mg injection kit 1 mg subcut X1 PRN hypoglycemia 08/06/23 Unknown History magnesium hydroxide 400 mg/5 mL 30 ml PO DAILY PRN constipation 08/06/23 Unknown History oral suspension (Milk of Magnesia) ciclopirox 8 % topical solution 1 applic topical QHS 11/17/23 Unknown History insulin lispro 100 unit/mL 9 unit subcut 1200 11/17/23 Unknown History subcutaneous pen (Humalog KwikPen (U-100) Insulin) acetaminophen 500 mg tablet 1,000 mg PO TID 12/06/23 12/09/23 History diphenhydramine-zinc acetate 2 1 applic topical Q6H PRN PRN 12/06/23 Unknown History %-0.1 % topical cream (Benadryl itching Extra Strength) insulin lispro 100 unit/mL 11 unit subcut 1700 12/06/23 Unknown History subcutaneous solution Allergy/AdvReac Type Severity Reaction Status Date / Time No Known Allergies Allergy Verified 12/06/23 11:48 Family History Mother Hypertension Diabetes Father Hypertension Diabetes Surgical History (Updated 12/06/23 @ 12:24 by Nickie Delgado) History of kidney transplant S/P unilateral above knee amputation S/P foot surgery S/P colostomy Social History housing: care home Smoking Status: Never smoker alcohol intake: never substance use type: does not use ROS Constitutional Constitutional: Denies anorexia, chills, fever(s), malaise or weakness Eyes Eyes: Denies change in vision ENT HEENT: Denies dysphagia or headache(s) Respiratory/Chest Respiratory/Chest: Denies cough, dyspnea, productive cough, shortness of breath at rest or shortness of breath with exertion Gastrointestinal Gastrointestinal: Denies abdominal pain, constipation, melena, nausea or vomiting Neurologic Neurologic: Denies confusion, dizziness, focal weakness or headache(s) Psychiatric Psychiatric: Denies anxiety Physical Exam Const alert, oriented x3 and no apparent distress General Appearance: cooperative HEENT normocephalic, head/scalp atraumatic, moist oral mucous membranes and oropharynx normal Mouth: oral and palatal mucosa normal and dry mucous membranes Eyes PERRL and EOMs intact bilaterally Neck no lymphadenopathy and supple Resp Resp Narrative: mildly diminished breath sounds bibasally, no wheezes or crackles. On 2L of oxygen Cardio regular rate, regular rhythm, S1 normal heart sound, S2 normal heart sound and no murmurs GI normal to inspection, nondistended, normoactive bowel sounds, soft to palpation and non-tender Extremity normal to inspection, full ROM and no clubbing, cyanosis or edema Skin Skin Narrative: intact dressing over lower back at surgical site Neuro oriented x3 and moves all extremities Sensorium / Orientation: awake and alert Motor Exam: strength 5/5 throughout Psych affect normal Lab / Micro Data Labs: Laboratory Results - last 24 hr 12/09/23 06:32: POC Glucose 164 H 12/09/23 06:40: Hemoglobin A1c 6.5 H, TSH 3.38 Micro: Microbiology 12/09/23 Unknown Tissue - Ischial Pressure Sore Gram Stain - Final 12/09/23 Unknown Bone - Ischial Bone Gram Stain - Final Charges/Coding Visit Charges Inpatient E&M: 66648 Subs Hosp L2
[2023-12-09] MEDS: Insulin Glargine-YFGN 100 UNIT/ML Pen 24 UNIT SC (16:51)
[2023-12-09] MEDS: Juven (unflavored) Packet 1 PACKET PO (16:52)
[2023-12-09 16:53] LABS: Bedside Glucose 175 mg/dL (74-106)
[2023-12-09] MEDS: Insulin Lispro 100 UNIT/ML INSULN.PEN 6 UNIT SC (16:56)
[2023-12-09] MEDS: Ondansetron 4 MG/2 ML Vial IV (16:57)
[2023-12-09 17:10] LABS: Bedside Glucose 162 mg/dL (74-106)
[2023-12-09] MEDS: proMETHazine 25 MG Tablet 12.5 MG PO (21:56)
[2023-12-09] MEDS: traZODone 50 MG Tablet 150 MG PO (21:56)
[2023-12-09] MEDS: Escitalopram Oxalate 10 MG Tablet 15 MG PO (21:56)
[2023-12-09] MEDS: Atorvastatin Calcium 40 MG Tablet PO (21:56)
[2023-12-09] MEDS: Carvedilol 12.5 MG Tablet PO (21:57)
[2023-12-09] MEDS: Ascorbic Acid 500 MG Tablet PO (21:57)
[2023-12-09] MEDS: Tacrolimus Anhydrous 1 MG Capsule 2 MG PO (21:57)
[2023-12-09] MEDS: Senna/Docusate Sodium 1 Tablet PO (21:57)
[2023-12-09] MEDS: Gabapentin 100 MG Capsule 200 MG PO (22:00)
[2023-12-09 22:29] LABS: Bedside Glucose 186 mg/dL (74-106)
[2023-12-10] VITALS (16 sets, daily range): BP systolic 124–223; BP diastolic 62–85; PULSE 76–95; RESP 14–18; TEMP 36.3–38.6; O2SAT 93–98; BMI 43.4; BMI 42.7
[2023-12-10] MEDS: Cefazolin 1 GM/50 ML BAG IV ×2 (00:20→06:29)
[2023-12-10] MEDS: oxyCODONE 5 MG Tablet 10 MG PO ×2 (03:28→15:01)
[2023-12-10] MEDS: Ondansetron 8 MG Tablet 4 MG PO (03:28)
[2023-12-10 06:19] LABS: Hematocrit 29.9 % (40-54); Hemoglobin 9.3 g/dL (13.0-16.5); Mean Corp Hgb Conc 31.1 g/dL (32-36); Mean Corpuscular Hgb 29.8 pg (27.0-32.0); Mean Corpuscular Volume 95.8 fL (80-94); Mean Platelet Vol. 11.3 fl (6.2-12.0); Platelet Count 171 K/mm3 (150-450); RBC Distribution Width SD 52.2 fl (35.1-43.9); Red Blood Count 3.12 M/mm3 (4.6-6.2); White Blood Count 8.5 K/mm3 (4.4-11.0)
[2023-12-10] MEDS: Levothyroxine 150 MCG Tablet PO (06:28)
[2023-12-10] MEDS: SEVELAMER CARBONATE 800 MG TABLET 2400 MG PO ×3 (06:28→22:37)
[2023-12-10] MEDS: hydrALAZINE 50 MG Tablet PO ×3 (06:28→22:37)
[2023-12-10 06:49] LABS: Bedside Glucose 128 mg/dL (74-106)
--- NOTE | 2023-12-10 07:04 | PN.HOSP_ITS ---
Reason for Visit Reason for Visit: Diagnoses Non-pressure chronic ulcer of other part of right foot with fat layer exposed (12/09/23) Unspecified open wound of left buttock, initial encounter (12/09/23) Encounter for other preprocedural examination (12/09/23) Objective Data Objective Data Vital Signs: Vital Signs Temp Pulse Resp BP Pulse Ox O2 Del Method O2 Flow Rate 36.8 C 76 18 130/72 H 93 Nasal Cannula 2 12/10/23 03:24 12/10/23 06:28 12/10/23 03:24 12/10/23 03:24 12/10/23 03:24 12/10/23 03:24 12/10/23 03:24 Oxygen Flow Rate (L/min) 2 Oxygen Delivery Method Nasal Cannula Weight: 145.603 kg Body Mass Index (BMI) 43.5 Intake & Output: Intake and Output for Last 24 Hours 12/08/23 12/09/23 12/10/23 23:59 23:59 23:59 Intake Total 324.25 / 324.25 100 / 100 Output Total 100 / 125 25 / 25 Balance 224.25 / 199.25 75 / 75 Lab / Micro Data 12/10/23 05:46 12/10/23 05:46 Labs: Laboratory Results - last 24 hr 12/09/23 06:32: POC Glucose 164 H 12/09/23 06:40: Hemoglobin A1c 6.5 H, TSH 3.38 12/09/23 12:08: POC Glucose 175 H 12/09/23 16:50: POC Glucose 162 H 12/09/23 21:53: POC Glucose 186 H 12/10/23 05:46: WBC 8.5, RBC 3.12 L, Hgb 9.3 L, Hct 29.9 L, MCV 95.8 H, MCH 29.8, MCHC 31.1 L, RDW Std Deviation 52.2 H, RDW Coeff of Shanta 15.0 H, Plt Count 171, MPV 11.3 12/10/23 06:27: POC Glucose 128 H Micro: Microbiology 12/09/23 Unknown Tissue - Ischial Pressure Sore Gram Stain - Final 12/09/23 Unknown Bone - Ischial Bone Gram Stain - Final Assessment & Plan Assessment/Plan (1) Open wound of left buttock without complication: QUALIFIERS: Encounter type: initial encounter Qualified Code(s): S31.829A - Unspecified open wound of left buttock, initial encounter PLAN: Plan Stage IV decubitus ulcer * s/p partial ostectomy on 12/08. * Cx pending. Cx from 11/16 for Proteus mirabilis, Pseudomonas aeruginosa * On cefazolin. Will change to cefepime to cover Pseudomonas. * Consider infectious disease consultation ESRD, s/p kidney transplant * On HD. but still on tacrolimus DM2, insulin-dependent * Glargine 24 daily, prandial insulin, SSI * a1c 6.5 Obesity Class III * complicates care and recovery. h/o VTE * apixaban VTE prophylaxis: not indicated as already anticoagulated.
[2023-12-10 08:05] LABS: Anion Gap 13 (5-15); BUN 141 mg/dL (7-18); BUN/Creat Ratio 11.6 RATIO (10-20); Calcium,Total 7.7 mg/dL (8.5-10.1); Chloride 100 mmol/L (98-107); EST Glomerular Filtration Rate 5 mL/min (>60); Est Glom Filt Rate - Afr Amer 6 mL/min (>60); Estimated Creatinine Clearance 12.41 ml/min; Glucose 129 mg/dL (74-106); Potassium 6.5 mmol/L (3.5-5.1); Sodium Level 134 mmol/L (136-145)
[2023-12-10 08:30] LABS: Hemoglobin A1c 6.5 % (3.8-5.6)
--- NOTE | 2023-12-10 08:37 | PCM.PN.HOSP ---
Reason for Visit Reason for Visit: Diagnoses Non-pressure chronic ulcer of other part of right foot with fat layer exposed (12/09/23) Unspecified open wound of left buttock, initial encounter (12/09/23) Encounter for other preprocedural examination (12/09/23) Subjective Subjective Patient is a 38-year-old gentleman resident at an extended care facility admitted by plastic surgery patient underwent partial ostectomy for stage IV decubitus ulcer. The hospitalist service consulted to assist with management of patient medical comorbidities Objective Data Objective Data Vital Signs: Vital Signs Temp Pulse Resp BP Pulse Ox O2 Del Method O2 Flow Rate 98 F 80 16 139/72 H 98 Nasal Cannula 2 12/10/23 07:54 12/10/23 07:54 12/10/23 07:54 12/10/23 07:54 12/10/23 07:54 12/10/23 07:54 12/10/23 07:54 Oxygen Flow Rate (L/min) 2 Oxygen Delivery Method Nasal Cannula Weight: 145.603 kg Body Mass Index (BMI) 43.5 Intake & Output: Intake and Output for Last 24 Hours 12/08/23 12/09/23 12/10/23 23:59 23:59 23:59 Intake Total 324.25 / 324.25 100 / 100 Output Total 100 / 125 25 / 25 Balance 224.25 / 199.25 75 / 75 Lab / Micro Data 12/10/23 05:46 12/10/23 05:46 Labs: Laboratory Results - last 24 hr 12/09/23 12:08: POC Glucose 175 H 12/09/23 16:50: POC Glucose 162 H 12/09/23 21:53: POC Glucose 186 H 12/10/23 05:46: WBC 8.5, RBC 3.12 L, Hgb 9.3 L, Hct 29.9 L, MCV 95.8 H, MCH 29.8, MCHC 31.1 L, RDW Std Deviation 52.2 H, RDW Coeff of Shanta 15.0 H, Plt Count 171, MPV 11.3, Sodium 134 L, Potassium 6.5 H*, Chloride 100, Carbon Dioxide 21.0, Anion Gap 13, BUN 141 H*, Creatinine 12.20 H*, Estim Creat Clear Calc 12.41, Est GFR (MDRD) Af Amer 6 L, Est GFR (MDRD) Non-Af 5 L, BUN/Creatinine Ratio 11.6, Glucose 129 H, Hemoglobin A1c 6.5 H, Calcium 7.7 L 12/10/23 06:27: POC Glucose 128 H Micro: Microbiology 12/09/23 Unknown Tissue - Ischial Pressure Sore Gram Stain - Final 12/09/23 Unknown Bone - Ischial Bone Gram Stain - Final Physical Exam Narrative GENERAL: cooperative HEENT: Atraumatic; normocephalic EYES; Anicteric, Normal Conjunctiva NECK; supple, normal thyroid, RESPIRATORY: Diminished to auscultation CARDIOVASCULAR: Regular S1 S2, GI: soft, normoactive bowel sounds, : No Renal angle tenderness; EXTREMITIES: No edema, no clubbing, MUSCULOSKELETAL: Left AKA NEURO: Awake; no lateralizing signs. SKIN: Stage IV decubitus ulcer PSYCH; Flat affect Assessment & Plan Assessment/Plan (1) Open wound of left buttock without complication: QUALIFIERS: Encounter type: initial encounter Qualified Code(s): S31.829A - Unspecified open wound of left buttock, initial encounter PLAN: Plan Patient is a 38-year-old gentleman resident at an extended care facility admitted by plastic surgery patient underwent partial ostectomy for stage IV decubitus ulcer. The hospitalist service consulted to assist with management of patient medical comorbidities 1. Stage IV decubitus ulcer s/p partial ostectomy on 12/08. Cultures sent following patient procedure. Recent cultures from 11/17/2023 grew Proteus and Pseudomonas. Cefepime added to therapy consult placed to ID 2. End-stage renal disease ? Patient has history of failed renal transplant. Currently on hemodialysis on Tuesdays and Saturdays consult placed to nephrology for dialysis orders 3. Hyperkalemia ? Secondary to ESRD plan is for patient to undergo dialysis 4. Anemia ? Secondary to anemia of end-stage renal disease monitoring H&H with plans to transfuse or if patient is deemed to be symptomatic 5. Dyslipidemia -Patient is on statin therapy, continued at home dose 6. Hypothyroidism - Patient is on levothyroxine home dose continued 7. Hypertension - Blood pressure controlled, home medications continued with dose adjustment as needed 8. Class III obesity with BMI of 44 ? Complicating care weight loss advised 9. Diabetes mellitus type II -patient's oral hypoglycemics held. Placed on long acting insulin, Accu-Cheks a.c. and at bedtime and covered with sliding scale insulin 10. GERD ? On PPI 11. Depression with anxiety ? Patient is on escitalopram did continue 12 history of t left AKA ? Supportive care 13. History of previous VTE ? Patient is on apixaban did continue Time spent in the patient's overall evaluation,decision-making process, review of diagnostic data, adjustment of management, discussion with other providers, nursing nursing and ancillary staff involved in patient's care documentation, 53 Minutes Charges/Coding Visit Charges Inpatient E&M: 23704 Subs Hosp L3
[2023-12-10] MEDS: Calcitriol 0.25 MCG Capsule 1.25 MCG PO (08:58)
[2023-12-10] MEDS: Midodrine HCl 5 MG Tablet 10 MG PO (08:58)
[2023-12-10] MEDS: Juven (unflavored) Packet 1 PACKET PO ×2 (08:58→17:11)
[2023-12-10] MEDS: Pantoprazole Sodium 40 MG Tablet PO (08:58)
[2023-12-10] MEDS: Senna/Docusate Sodium 1 Tablet PO ×2 (08:59→22:44)
[2023-12-10] MEDS: Tacrolimus Anhydrous 1 MG Capsule 2 MG PO ×2 (08:59→22:44)
[2023-12-10] MEDS: APIXABAN 5 MG TABLET PO ×2 (08:59→22:37)
[2023-12-10] MEDS: Carvedilol 12.5 MG Tablet PO ×2 (08:59→22:37)
[2023-12-10] MEDS: Gabapentin 100 MG Capsule 200 MG PO ×2 (09:01→22:32)
[2023-12-10] MEDS: proMETHazine 25 MG Tablet 12.5 MG PO (09:29)
--- NOTE | 2023-12-10 10:11 | WOUNDNOTE ---
wound photo: left ischium
--- NOTE | 2023-12-10 10:49 | CASEMGMT ---
Social Work Message left at [facility] to clarify where pt is in the Passport process. SW will await a return call. BRIONNA Chaudhry
--- NOTE | 2023-12-10 10:54 | CASEMGMT ---
Addendum entered by Selina Sylvester 12/10/23 11:38: Patient can return under his intermediate services. No auth required. SW updated. Selina Sylvester DC Planning Asst. Original Note: Discharge Planning Updates sent to [facility] via [facility]. Asked if precert will be needed to return. Selina Sylvester DC Planning Asst.
--- NOTE | 2023-12-10 11:11 | CASEMGMT ---
Social Work SW spoke w/pt, confirmed plan will be to return to [facility] at discharge, SNF list is not needed at this time. SW will continue to follow, d/c planning aide Selina sending updates to [facility]. BRIONNA Chaudhry
[2023-12-10] MEDS: PureFlow B 2K Dialysis Soln 1 BAG 6 BAG PF (11:24)
[2023-12-10] MEDS: 0.9% Normal Saline 1,000 ML IV.SOLN. 1000 ML OPERA.SITE (11:24)
[2023-12-10 11:52] LABS: Bedside Glucose 110 mg/dL (74-106)
--- NOTE | 2023-12-10 13:20 | PCM.CONS.GEN ---
Assessment & Plan Assessment/Plan (1) End stage renal disease: (2) Osteomyelitis of pelvic region: PLAN: Taken to OR 12/09/[address] Villagran for I&D down to bone. Surg cx pending. Will cover with vanc, cefepime, and flagyl. Adjusted cefepime dose for ESRD. Plan on 6 weeks iv abx dosed with HD at discharge. Will follow, thank you HPI Consult Data Date of Consult: 12/10/23 HPI Narrative Reason for Consultation: osteo HPI Narrative: CH[place] GUILLEN, is a 38 M with ESRD, h/o failed kidney transplant, DM, incomplete paraplegia, chronic decub ulcer, presented with several weeks/months worsening L ischial ulcer. Had some increased pain, no fever. Admitted and taken to OR 12/09/[address] Villagran for I&D. Feeling ok today, getting HD. Full ROS performed and neg except as noted above. [facility] Medical History Lives in residential Anxiety Open wound Insulin dependent diabetes mellitus Uses wheelchair Injury of back Community acquired MRSA infection Non-healing wound of amputation stump Hypomagnesemia Hyperosmolality and hypernatremia Neurogenic bowel Pericardial effusion (noninflammatory) SIRS (systemic inflammatory response syndrome) Pyrexia Hyperkalemia Pneumonia Kidney transplant failure Dependence on renal dialysis Pressure ulcer of left heel, unspecified stage Gastro-esophageal reflux disease without esophagitis Acute on chronic systolic (congestive) heart failure Other pericardial effusion (noninflammatory) Other pulmonary embolism without acute cor pulmonale Hypertensive heart and chronic kidney disease with heart failure and stage 1 through stage 4 chronic kidney disease, or unspecified chronic kidney disease Depression Hyperlipemia Hypothyroidism Anemia in chronic kidney disease Neuromuscular dysfunction of bladder, unspecified Paraplegia, incomplete Other acute osteomyelitis, left ankle and foot End stage renal disease Acute pulmonary edema Acute respiratory failure with hypoxia Home Medications ?Medication ?Instructions ?Recorded ?Last Taken ?Type acetaminophen 325 mg tablet 650 mg PO Q4H PRN PAIN/FEVER 01/02/23 04/21/23 History apixaban 5 mg tablet (Eliquis) 5 mg PO BID 01/02/23 07/16/23 History ascorbic acid (vitamin C) 500 mg 500 mg PO QHS 01/02/23 12/08/23 History tablet atorvastatin 40 mg tablet 40 mg PO QHS 01/02/23 12/08/23 History bisacodyl 10 mg rectal suppository 10 mg [place] DAILY PRN Constipation 01/02/23 Unknown History carvedilol 12.5 mg tablet 12.5 mg PO BID 01/02/23 12/09/23 History clotrimazole-betamethasone 1 1 applic topical QHS 01/02/23 07/15/23 History %-0.05 % topical cream dextrose 40 % oral gel (Glucose 15 g PO Q15M PRN Hypoglycemia 01/02/23 Unknown History Gel) hydralazine 25 mg tablet 50 mg PO Q8 01/02/23 12/09/23 History insulin glargine 100 unit/mL (3 24 unit subcut 1700 01/02/23 12/08/23 History mL) subcutaneous pen (Lantus Solostar U-100 Insulin) insulin lispro 100 unit/mL 6 unit subcut QHS 01/02/23 07/16/23 History subcutaneous pen (Humalog KwikPen (U-100) Insulin) midodrine 10 mg tablet 10 mg PO MOTUTHFR 01/02/23 12/09/23 History ondansetron HCl 4 mg tablet 4 mg PO Q8H PRN PRN Nausea 01/02/23 Unknown History pantoprazole 40 mg tablet,delayed 40 mg PO DAILY 01/02/23 12/08/23 History release polyethylene glycol 3350 17 gram 17 g PO DAILY PRN constipation 01/02/23 Unknown History oral powder packet promethazine 12.5 mg tablet 12.5 mg PO Q8H PRN Nausea 01/02/23 07/15/23 History sennosides 8.6 mg-docusate sodium 1 tab-cap PO BID Constipation 01/02/23 07/16/23 History 50 mg capsule (Senna Plus) tacrolimus 1 mg capsule, 2 mg PO Q12H 01/02/23 12/09/23 History immediate-release (Prograf) trazodone 50 mg tablet 150 mg PO QHS 01/02/23 12/08/23 History calcitriol 0.5 mcg capsule 1.25 mcg PO DAILY 04/21/23 12/08/23 History gabapentin 100 mg capsule 200 mg PO BID PHANTOM PAIN 04/21/23 12/09/23 History sevelamer HCl 800 mg tablet 2,400 mg PO TID 10/15/23 01/09/24 History escitalopram oxalate 20 mg tablet 15 mg PO QHS 07/16/23 07/16/23 History levothyroxine 150 mcg tablet 150 mcg PO DAILY 07/16/23 12/09/23 History oxycodone 10 mg tablet 10 mg PO Q4H PRN pain 2 days #12 07/19/23 Unknown Rx tabs acetaminophen 650 mg rectal 650 mg [place] Q4H PRN fever or pain 08/06/23 Unknown History suppository glucagon 1 mg injection kit 1 mg subcut X1 PRN hypoglycemia 08/06/23 Unknown History magnesium hydroxide 400 mg/5 mL 30 ml PO DAILY PRN constipation 08/06/23 Unknown History oral suspension (Milk of Magnesia) ciclopirox 8 % topical solution 1 applic topical QHS 11/17/23 Unknown History insulin lispro 100 unit/mL 9 unit subcut 1200 11/17/23 Unknown History subcutaneous pen (Humalog KwikPen (U-100) Insulin) acetaminophen 500 mg tablet 1,000 mg PO TID 12/06/23 12/09/23 History diphenhydramine-zinc acetate 2 1 applic topical Q6H PRN PRN 12/06/23 Unknown History %-0.1 % topical cream (Benadryl itching Extra Strength) insulin lispro 100 unit/mL 11 unit subcut 1700 12/06/23 Unknown History subcutaneous solution Allergy/AdvReac Type Severity Reaction Status Date / Time No Known Allergies Allergy Verified 12/06/23 11:48 Family History Mother Hypertension Diabetes Father Hypertension Diabetes Surgical History (Updated 12/06/23 @ 12:24 by Nickie Delgado) History of kidney transplant S/P unilateral above knee amputation S/P foot surgery S/P colostomy Social History housing: residential Smoking Status: Never smoker alcohol intake: never substance use type: does not use Physical Exam Const alert, oriented x3 and no apparent distress General Appearance: cooperative HEENT normocephalic and head/scalp atraumatic Eyes PERRL and EOMs intact bilaterally Neck supple and No nodes Resp normal air movement and clear to auscultation bilaterally Cardio regular rate and regular rhythm GI soft to palpation, non-tender and non-distended Extremity General Extremity: edema Skin Skin Narrative: reviewed wound photos Neuro CN's II-XII intact bilaterally Lab / Micro Data Attestation: I reviewed the patient's lab results. 12/10/23 05:46 12/10/23 05:46 Labs: Laboratory Results - last 24 hr 12/09/23 12:08: POC Glucose 175 H 12/09/23 16:50: POC Glucose 162 H 12/09/23 21:53: POC Glucose 186 H 12/10/23 05:46: WBC 8.5, RBC 3.12 L, Hgb 9.3 L, Hct 29.9 L, MCV 95.8 H, MCH 29.8, MCHC 31.1 L, RDW Std Deviation 52.2 H, RDW Coeff of Shanta 15.0 H, Plt Count 171, MPV 11.3, Sodium 134 L, Potassium 6.5 H*, Chloride 100, Carbon Dioxide 21.0, Anion Gap 13, BUN 141 H*, Creatinine 12.20 H*, Estim Creat Clear Calc 12.41, Est GFR (MDRD) Af Amer 6 L, Est GFR (MDRD) Non-Af 5 L, BUN/Creatinine Ratio 11.6, Glucose 129 H, Hemoglobin A1c 6.5 H, Calcium 7.7 L 12/10/23 06:27: POC Glucose 128 H 12/10/23 11:34: POC Glucose 110 H Micro: Microbiology 12/09/23 Unknown Tissue - Ischial Pressure Sore Gram Stain - Final 12/09/23 Unknown Tissue - Ischial Pressure Sore Wound Culture - Preliminary Gram negative polo 12/09/23 Unknown Bone - Ischial Bone Gram Stain - Final
[2023-12-10] MEDS: Vancomycin HCl 2,000 MG in 0.9% Normal Saline (500mL Bag) 500 ML 250 MG IV (14:56)
[2023-12-10] MEDS: DAKIN'S SOL HALF STRENGTH (=0.25%) 1 APPLIC TOPICAL (14:59)
[2023-12-10] MEDS: metroNIDAZOLE 500 MG Tablet PO ×2 (15:01→22:40)
--- NOTE | 2023-12-10 15:57 | CASEMGMT ---
Met with patient to complete VO form. VO form explained to patient who voiced understanding and signed form. Original form placed in pt?s chart and copy provided to patient. Selina Sylvester, Discharge Planning Asst
[2023-12-10 16:33] LABS: Bedside Glucose 99 mg/dL (74-106)
[2023-12-10] MEDS: Cefepime HCl 1 GM in 0.9% Normal Saline (50mL MB+) 50 ML IV (20:22)
--- NOTE | 2023-12-10 21:09 | PCM.PN.SRG ---
Subjective Subjective Postop #1 Patient is resting comfortably. Tolerated dressing change. Little oozy today. VAC on hold. Redressed with Dakin's compression dressing. Objective Data Objective Data Vital Signs: Vital Signs Temp Pulse Resp BP Pulse Ox O2 Del Method O2 Flow Rate 98.3 F 87 16 143/75 H 98 Room Air 2 12/10/23 15:13 12/10/23 15:13 12/10/23 15:13 12/10/23 15:13 12/10/23 15:13 12/10/23 15:13 12/10/23 14:47 Oxygen Flow Rate (L/min) 2 Oxygen Delivery Method Room Air Weight: 315 lb 11.231 oz Body Mass Index (BMI) 42.7 Intake & Output: Intake and Output for Last 24 Hours 12/08/23 12/09/23 12/10/23 23:59 23:59 23:59 Intake Total 324.25 / 324.25 890 / 890 Output Total 100 / 125 2325 / 2325 Balance 224.25 / 199.25 -1435 / -1435 Prealbumin is pending. Encourage nutritional supplementation with protein to help the healing process. Lab / Micro Data Attestation: I reviewed the patient's lab results. 12/12/23 07:01 12/12/23 07:01 Labs: Laboratory Results - last 24 hr 12/09/23 21:53: POC Glucose 186 H 12/10/23 05:46: WBC 8.5, RBC 3.12 L, Hgb 9.3 L, Hct 29.9 L, MCV 95.8 H, MCH 29.8, MCHC 31.1 L, RDW Std Deviation 52.2 H, RDW Coeff of Shanta 15.0 H, Plt Count 171, MPV 11.3, Sodium 134 L, Potassium 6.5 H*, Chloride 100, Carbon Dioxide 21.0, Anion Gap 13, BUN 141 H*, Creatinine 12.20 H*, Estim Creat Clear Calc 12.41, Est GFR (MDRD) Af Amer 6 L, Est GFR (MDRD) Non-Af 5 L, BUN/Creatinine Ratio 11.6, Glucose 129 H, Hemoglobin A1c 6.5 H, Calcium 7.7 L 12/10/23 06:27: POC Glucose 128 H 12/10/23 11:34: POC Glucose 110 H 12/10/23 16:15: POC Glucose 99 Micro: Microbiology 12/09/23 Unknown Tissue - Ischial Pressure Sore Gram Stain - Final 12/09/23 Unknown Tissue - Ischial Pressure Sore Wound Culture - Preliminary Gram negative polo 12/09/23 Unknown Bone - Ischial Bone Gram Stain - Final Patient started on Vancomycin, Cefepime, and Flagyl Physical Exam Narrative PHYSICAL EXAMINATION General - Alert and Oriented HEENT - PERRL. EOMI. Neck - Supple and nontender. Abdomen - Soft and nondistended. Skin - left ischial pressure sore. Slight oozing seen controlled with silver nitrate chemical cauterization. No activ bleeding seen. VAC is on hold. Dakin's dressing changes started. Will reassess tomorrow. Neuro - CN II-XII grossly intact. Psych - Normal mood and affect. Assessment & Plan Assessment/Plan (1) 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, stage 4: (2) Osteomyelitis of pelvic region: (3) Chronic kidney disease with end stage renal failure on dialysis: (4) DM type 2, goal HbA1c < 7%: (5) Community acquired MRSA infection: (6) H/O deep venous thrombosis: (7) half-way (current) use of 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: PLAN: Plan Left ischial pressure sore wound shows slight oozing after surgery. Easily controlled with gauze compression and silver nitrate chemical cauterization. Will hold off on the VAC and reassess tomorrow. In the meantime, will begin Dakin's dressing changes daily. Patient getting dialyzed today. Will send back to [facility] once the wound stabilizes. Prealbumin is pending. Encourage nutritional supplementation with protein to help the healing process. Operative culture shows Gram negative polo thus far. Infectious Diseases consulted to help with antibiotic therapy. He is currently on Vancomycin, Cefepime, and Flagyl. After discharge, followup at [facility].
--- NOTE | 2023-12-10 21:58 | CON.PCM.RE_ITS ---
Assessment & Plan Assessment/Plan (1) End stage renal disease: PLAN: HD today. seen on HD. see orders Hyperkalemia. HD with 2K bath today ID note reviewed HPI Consult Data Date of Consult: 12/10/23 HPI Narrative Reason for Consultation: ESRD HPI Narrative: CHINA GUILLEN, is a 38 M who presents to hospital with worsening ischial ulcer. history of paraplegia. at [facility]. Gets dialysis Sat,, and saturday. last HD ? saturday. seen on HD today. s/p debridement by surgery. [facility] Medical History (Updated 12/10/23 @ 15:[address] Yusuf Villagran MD) [facility] (current) use of 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 H/O deep venous thrombosis Chronic kidney disease with end stage renal failure on dialysis Osteomyelitis of pelvic region 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, stage 4 DM type 2, goal HbA1c < 7% Lives in correction Anxiety Open wound Insulin dependent diabetes mellitus Uses wheelchair Injury of back Community acquired MRSA infection Non-healing wound of amputation stump Hypomagnesemia Hyperosmolality and hypernatremia Neurogenic bowel Pericardial effusion (noninflammatory) SIRS (systemic inflammatory response syndrome) Pyrexia Hyperkalemia Pneumonia Kidney transplant failure Dependence on renal dialysis Pressure ulcer of left heel, unspecified stage Gastro-esophageal reflux disease without esophagitis Acute on chronic systolic (congestive) heart failure Other pericardial effusion (noninflammatory) Other pulmonary embolism without acute cor pulmonale Hypertensive heart and chronic kidney disease with heart failure and stage 1 through stage 4 chronic kidney disease, or unspecified chronic kidney disease Depression Hyperlipemia Hypothyroidism Anemia in chronic kidney disease Neuromuscular dysfunction of bladder, unspecified Paraplegia, incomplete Other acute osteomyelitis, left ankle and foot End stage renal disease Acute pulmonary edema Acute respiratory failure with hypoxia Home Medications ?Medication ?Instructions ?Recorded ?Last Taken ?Type acetaminophen 325 mg tablet 650 mg PO Q4H PRN PAIN/FEVER 01/02/23 04/21/23 History apixaban 5 mg tablet (Eliquis) 5 mg PO BID 01/02/23 07/16/23 History ascorbic acid (vitamin C) 500 mg 500 mg PO QHS 01/02/23 12/08/23 History tablet atorvastatin 40 mg tablet 40 mg PO QHS 01/02/23 12/08/23 History bisacodyl 10 mg rectal suppository 10 mg SC DAILY PRN Constipation 01/02/23 Unknown History carvedilol 12.5 mg tablet 12.5 mg PO BID 01/02/23 12/09/23 History clotrimazole-betamethasone 1 1 applic topical QHS 01/02/23 07/15/23 History %-0.05 % topical cream dextrose 40 % oral gel (Glucose 15 g PO Q15M PRN Hypoglycemia 01/02/23 Unknown History Gel) hydralazine 25 mg tablet 50 mg PO Q8 01/02/23 12/09/23 History insulin glargine 100 unit/mL (3 24 unit subcut 1700 01/02/23 12/08/23 History mL) subcutaneous pen (Lantus Solostar U-100 Insulin) insulin lispro 100 unit/mL 6 unit subcut QHS 01/02/23 07/16/23 History subcutaneous pen (Humalog KwikPen (U-100) Insulin) midodrine 10 mg tablet 10 mg PO MOTUTHFR 01/02/23 12/09/23 History ondansetron HCl 4 mg tablet 4 mg PO Q8H PRN PRN Nausea 01/02/23 Unknown History pantoprazole 40 mg tablet,delayed 40 mg PO DAILY 01/02/23 12/08/23 History release polyethylene glycol 3350 17 gram 17 g PO DAILY PRN constipation 01/02/23 Unknown History oral powder packet promethazine 12.5 mg tablet 12.5 mg PO Q8H PRN Nausea 01/02/23 07/15/23 History sennosides 8.6 mg-docusate sodium 1 tab-cap PO BID Constipation 01/02/23 07/16/23 History 50 mg capsule (Senna Plus) tacrolimus 1 mg capsule, 2 mg PO Q12H 01/02/23 12/09/23 History immediate-release (Prograf) trazodone 50 mg tablet 150 mg PO QHS 01/02/23 12/08/23 History calcitriol 0.5 mcg capsule 1.25 mcg PO DAILY 04/21/23 12/08/23 History gabapentin 100 mg capsule 200 mg PO BID PHANTOM PAIN 04/21/23 12/09/23 History sevelamer HCl 800 mg tablet 2,400 mg PO TID 04/21/23 07/16/23 History escitalopram oxalate 20 mg tablet 15 mg PO QHS 07/16/23 07/16/23 History levothyroxine 150 mcg tablet 150 mcg PO DAILY 07/16/23 12/09/23 History oxycodone 10 mg tablet 10 mg PO Q4H PRN pain 2 days #12 07/19/23 Unknown Rx tabs acetaminophen 650 mg rectal 650 mg SC Q4H PRN fever or pain 08/06/23 Unknown History suppository glucagon 1 mg injection kit 1 mg subcut X1 PRN hypoglycemia 08/06/23 Unknown History magnesium hydroxide 400 mg/5 mL 30 ml PO DAILY PRN constipation 08/06/23 Unknown History oral suspension (Milk of Magnesia) ciclopirox 8 % topical solution 1 applic topical QHS 11/17/23 Unknown History insulin lispro 100 unit/mL 9 unit subcut 1200 11/17/23 Unknown History subcutaneous pen (Humalog KwikPen (U-100) Insulin) acetaminophen 500 mg tablet 1,000 mg PO TID 12/06/23 12/09/23 History diphenhydramine-zinc acetate 2 1 applic topical Q6H PRN PRN 12/06/23 Unknown History %-0.1 % topical cream (Benadryl itching Extra Strength) insulin lispro 100 unit/mL 11 unit subcut 1700 12/06/23 Unknown History subcutaneous solution Allergy/AdvReac Type Severity Reaction Status Date / Time No Known Allergies Allergy Verified 12/06/23 11:48 Family History Mother Hypertension Diabetes Father Hypertension Diabetes Surgical History (Updated 12/06/23 @ 12:24 by Nickie Delgado) History of kidney transplant S/P unilateral above knee amputation S/P foot surgery S/P colostomy Social History housing: correction Smoking Status: Never smoker alcohol intake: never substance use type: does not use ROS ROS Narrative negative except above Physical Exam Narrative Alert awake oriented x 3 no obvious distress no pallor no icterus no JVD s1s2 no murmurs lungs clear abdomen soft no organomegaly no edema no cyanosis Lab / Micro Data 12/10/23 05:46 12/10/23 05:46 Labs: Laboratory Results - last 24 hr 12/09/23 21:53: POC Glucose 186 H 12/10/23 05:46: WBC 8.5, RBC 3.12 L, Hgb 9.3 L, Hct 29.9 L, MCV 95.8 H, MCH 29.8, MCHC 31.1 L, RDW Std Deviation 52.2 H, RDW Coeff of Shanta 15.0 H, Plt Count 171, MPV 11.3, Sodium 134 L, Potassium 6.5 H*, Chloride 100, Carbon Dioxide 21.0, Anion Gap 13, BUN 141 H*, Creatinine 12.20 H*, Estim Creat Clear Calc 12.41, Est GFR (MDRD) Af Amer 6 L, Est GFR (MDRD) Non-Af 5 L, BUN/Creatinine Ratio 11.6, Glucose 129 H, Hemoglobin A1c 6.5 H, Calcium 7.7 L 12/10/23 06:27: POC Glucose 128 H 12/10/23 11:34: POC Glucose 110 H 12/10/23 16:15: POC Glucose 99 Micro: Microbiology 12/09/23 Unknown Tissue - Ischial Pressure Sore Gram Stain - Final 12/09/23 Unknown Tissue - Ischial Pressure Sore Wound Culture - Preliminary Gram negative polo
--- NOTE | 2023-12-10 22:10 | PCM.HP.BLA ---
History and Physical Date of Admission: 12/10/23 HISTORY OF PRESENT ILLNESS 38 year old male presents with a chronic left ischial pressure sore, Stage IV, that intermittently drains leading to periwound maceration. He has a history of ESRD on hemodialysis. History of failed kidney transplant, chronic systolic heart failure, hypertension, hyperlipidemia, diabetes mellitus type II, left bKA, and incomplete paraplegia. He resides at [facility] where he receives his hemodialysis on , and Sat according to the patient. He had an operative debridement of his left ischial ulcer at [facility] 2 years ago, per the patient. He has had multiple wound cultures over the last several months showing MRSA, Proteus mirabilis, Enterococcus faecalis, Enterococcus avium, Enterococcus gallinarum, E. coli, and Anaerobic cocci and treated with antibiotics. He also had urine cultures that showed Proteus mirabilis and Pseudomonas aeroginosa. He had a CT Pelvis on 07/16/23. It showed the left ischial tuberosity has sclerotic and erosive changes concerning for osteomyelitis. His wound care consists of Dakin's dressing changes. The patient has diabetes mellitus and his last HgbA1c was 6.4 on 09/03/23. Because of the persistent drainage from the left ischial pressure sore, the macerated periwound has become a hindrance in the healing process. He presents today for excision of his left ischial pressure sore with partial ostectomy for osteomyelitis. PAST MEDICAL HISTORY Acute kidney failure Acute on chronic systolic (congestive) heart failure Acute pulmonary edema Acute respiratory failure with hypoxia Anemia in chronic kidney disease Dependence on renal dialysis Depression End stage renal disease Gastro-esophageal reflux disease without esophagitis Hyperkalemia Hyperlipemia Hyperosmolality and hypernatremia Hypertensive heart and chronic kidney disease with heart failure and stage 1 through stage 4 chronic kidney disease, or unspecified chronic kidney disease Hypomagnesemia Hypothyroidism Kidney transplant failure Neurogenic bowel Neuromuscular dysfunction of bladder, unspecified Other acute osteomyelitis, left ankle and foot Other pericardial effusion (noninflammatory) Other pulmonary embolism without acute cor pulmonale Paraplegia, incomplete Pericardial effusion (noninflammatory) Pneumonia Pressure ulcer of left heel, unspecified stage Pyrexia SIRS (systemic inflammatory response syndrome) Type 2 diabetes mellitus with diabetic chronic kidney disease PAST SURGICAL HISTORY Left BKA Kidney transplant S/P colostomy S/P foot surgery MEDICATIONS acetaminophen apixaban (Eliquis) ascorbic acid (vitamin C) atorvastatin bisacodyl carvedilol cetylpyridinium chloride clotrimazole-betamethasone topical cream famotidine hydralazine insulin glargine (Lantus Solostar U-100 Insulin) insulin lispro subcutaneous pen (Humalog KwikPen (U-100) Insulin) midodrine ondansetron HCl pantoprazole polyethylene glycol prednisone promethazine sennosides-docusate sodium (Senna Plus) tacrolimus (Prograf) trazodone amlodipine (Norvasc) calcitriol gabapentin sevelamer HCl diphenhydramine HCl escitalopram oxalate levothyroxine melatonin ALLERGIES None FAMILY HISTORY Mother - Hypertension, Diabetes Father - Hypertension, Diabetes SOCIAL HISTORY Smoking Status: Never smoker alcohol intake: never substance use type: does not use REVIEW OF SYSTEMS General - Denies fever, fatigue, and weight loss. Eyes - Denies cataracts and glaucoma. ENT - Denies nasal congestion and sore throat. Endocrine - Denies excessive thirst and urination. Has diabetes mellitus. Skin - Denies suspicious lesions and skin cancer. Has macerated left ischial pressure sore, Stage IV. Musculoskeletal - Denies joint pain, joint stiffness, weakness of muscles and joints, back pain, and arthritis. Has left BKA. Neuro - Denies headaches. Cardiovascular - Denies chest pain, fatigue, and shortness of breath with exertion. Psych - Denies anxiety and depression. Respiratory - Denies chronic cough and shortness of breath. Gastrointestinal - Denies nausea, vomiting, diarrhea, and constipation. Hematologic - Denies abnormal bruising and bleeding. Genitourinary - Has ESRD on dialysis. PHYSICAL EXAMINATION General - Alert and Oriented HEENT - PERRL. EOMI. Throat is clear. Neck - Supple and nontender. No cervical adenopathy. Lungs - Clear to auscultation. Heart - Regular rate and rhythm. Abdomen - Soft and nondistended. Extremities - Has left BKA. Neuro - CN II-XII grossly intact. Skin - Has left ischial pressure sore. Palpable bone at the base. Not exposed. Measures 5 x 4 cm. Macerated periwound measures 2 cm. Psych - Normal mood and affect. ASSESSMENT 1. Left ischial pressure sore, Stage IV. 2. Osteomyelitis. 3. ESRD on dialysis. 4. Diabetes mellitus. 5. MRSA. 6. History of DVT. 7. senior living anticoagulation with Eliquis. PLAN Recommend operative excision of this left ischial pressure sore with partial ostectomy for osteomyelitis. The chronic drainage is hindering the healing of this pressure sore. The pressure sore extends down to the bone, so a partial ostectomy will be done to evaluate for osteomyelitis. After surgery, will proceed with wound care with the VAC. If there is oozing will continue Dakin's compression dressing changes. Patient gets dialyzed on . Will proceed with the surgery on a day he is not dialyzed. Surgery will be done under general anesthesia. Will start out with an surgical overnight stay in the hospital. If oozing is seen in the wound, then will change to an admission. Half the soft tissue and half the bone will be sent to Pathology for analysis to rule out carcinoma and to evaluate for osteomyelitis. Half the soft tissue and half the bone will be sent to Microbiology for culture. A positive culture will necessitate antibiotic therapy. Postop will need Infectious Diseases evaluation for antibiotic management. Anticipate increased metabolic demands from the pressure sore and the surgery. Encouraged increased protein intake to help with wound healing. He would benefit from protein supplementation. Will check a Prealbumin. After discharge, will followup at the [facility]. We can discuss possible wound closure in the future with a myocutaneous flap. Any infection would need to be treated and controlled. Nutrition needs to be maximized. He would be on complete bedrest for 6 weeks. Anticipated time before a flap without additional issues averages about 6 months. Patient was informed of the risks and complications of the procedure including alternatives to surgery. These were discussed with the patient personally. Patient voices understanding and wishes to proceed. Potential risks and complications included but not inclusive of bleeding, infection, hematoma, bruising, swelling, poor scarring, poor aesthetic outcome, intra operative cardiac or neurologic events, DVT, PE, and reaction to anesthesia.
[2023-12-10] MEDS: Atorvastatin Calcium 40 MG Tablet PO (22:37)
[2023-12-10] MEDS: Escitalopram Oxalate 10 MG Tablet 15 MG PO (22:38)
[2023-12-10] MEDS: traZODone 50 MG Tablet 150 MG PO (22:39)
[2023-12-10] MEDS: Ascorbic Acid 500 MG Tablet PO (22:44)
[2023-12-10] MEDS: Acetaminophen 325 MG Tablet 650 MG PO (23:02)
[2023-12-10 23:21] LABS: Bedside Glucose 94 mg/dL (74-106)
[2023-12-11] VITALS (16 sets, daily range): BP systolic 87–218; BP diastolic 52–96; PULSE 78–92; RESP 14–20; TEMP 36.9–37.7; O2SAT 92–99; BMI 42.7; BMI 42.1
[2023-12-11] MEDS: Ondansetron 4 MG/2 ML Vial IV (02:35)
[2023-12-11] MEDS: 0.9% Saline Lock 10 ML Syringe IV ×2 (02:35→20:19)
[2023-12-11] MEDS: Acetaminophen 325 MG Tablet 650 MG PO (06:03)
[2023-12-11] MEDS: Levothyroxine 150 MCG Tablet PO (06:05)
[2023-12-11] MEDS: SEVELAMER CARBONATE 800 MG TABLET 2400 MG PO ×3 (06:05→22:52)
[2023-12-11] MEDS: metroNIDAZOLE 500 MG Tablet PO ×3 (06:05→22:53)
[2023-12-11 06:27] LABS: Bedside Glucose 94 mg/dL (74-106)
[2023-12-11 07:23] LABS: Absolute Lymphocyte Count 1.76 X10^3/uL (0.83-4.51); Absolute Neutrophil Count 9.3 X10^3/uL (2.0-7.7); Basophil# 0.06 X10^3/uL; Basophil% 0.5 % (0-1); Eosinophil# 0.21 X10^3/uL; Eosinophils% 1.6 % (0-5); Hematocrit 29.1 % (40-54); Hemoglobin 8.8 g/dL (13.0-16.5); Lymphocyte # 1.76 X10^3/ul (0.83-4.51); Lymphocyte % 13.6 % (19-41); Mean Corp Hgb Conc 30.2 g/dL (32-36); Mean Corpuscular Hgb 29.9 pg (27.0-32.0); Mean Platelet Vol. 11.1 fl (6.2-12.0); Monocyte# 1.61 X10^3/uL; Monocyte% 12.5 % (0-10); NRBC Flagged by Analyzer 0 % (0-5); Neutrophil # 9.25 X10^3/uL (2.7-7.7); Neutrophil % 71.5 % (47-70); POSITIVE DIFFERENTIAL YES; Platelet Count 163 K/mm3 (150-450); RBC Distribution Width CV 15.2 % (11.6-14.6); RBC Distribution Width SD 54.4 fl (35.1-43.9); Red Blood Count 2.94 M/mm3 (4.6-6.2); White Blood Count 12.9 K/mm3 (4.4-11.0)
[2023-12-11 07:28] LABS: Differential Indicated SCAN CRITERIA MET
--- NOTE | 2023-12-11 08:52 | PCM.PN.HOSP ---
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 (12/10/23) Personal history of other venous thrombosis and embolism (12/10/23) Dependence on renal dialysis (12/10/23) Subjective Subjective Patient seen resting comfortably Objective Data Objective Data Vital Signs: Vital Signs Temp Pulse Resp BP Pulse Ox O2 Del Method O2 Flow Rate 99.3 F H 86 18 98/63 99 Nasal Cannula 2 12/11/23 05:57 12/11/23 05:57 12/11/23 05:57 12/11/23 05:57 12/11/23 05:57 12/11/23 05:57 12/11/23 05:57 Oxygen Flow Rate (L/min) 2 Oxygen Delivery Method Nasal Cannula Weight: 143.2 kg Body Mass Index (BMI) 42.7 Intake & Output: Intake and Output for Last 24 Hours 12/09/23 12/10/23 12/11/23 23:59 23:59 23:59 Intake Total 324.25 / 324.25 1090 / 1090 200 / 200 Output Total 100 / 125 2325 / 2325 Balance 224.25 / 199.25 -1235 / -1235 200 / 200 Lab / Micro Data 12/11/23 07:05 12/10/23 05:46 Labs: Laboratory Results - last 24 hr 12/10/23 11:34: POC Glucose 110 H 12/10/23 16:15: POC Glucose 99 12/10/23 22:34: POC Glucose 94 12/11/23 05:55: POC Glucose 94 12/11/23 07:05: WBC 12.9 H, RBC 2.94 L, Hgb 8.8 L, Hct 29.1 L, MCV 99.0 H, MCH 29.9, MCHC 30.2 L, RDW Std Deviation 54.4 H, RDW Coeff of Shanta 15.2 H, Plt Count 163, MPV 11.1, Immature Gran % (Auto) 0.300, Neut % (Auto) 71.5 H, Lymph % (Auto) 13.6 L, Mcdowell % (Auto) 12.5 H, Eos % (Auto) 1.6, Baso % (Auto) 0.5, Absolute Neuts (auto) 9.3 H, Absolute Lymphs (auto) 1.76, Nucleated RBC % 0, Differential Comment COMMENT, Diff Path Review May foll Micro: Microbiology 12/09/23 Unknown Tissue - Ischial Pressure Sore Gram Stain - Final 12/09/23 Unknown Tissue - Ischial Pressure Sore Wound Culture - Preliminary Proteus mirabilis 12/09/23 Unknown Bone - Ischial Bone Gram Stain - Final Physical Exam Narrative GENERAL: cooperative HEENT: Atraumatic; normocephalic EYES; Anicteric, Normal Conjunctiva NECK; supple, normal thyroid, RESPIRATORY: Diminished to auscultation CARDIOVASCULAR: Regular S1 S2, GI: soft, normoactive bowel sounds, : No Renal angle tenderness; EXTREMITIES: No edema, no clubbing, MUSCULOSKELETAL: Left AKA NEURO: Awake; no lateralizing signs. SKIN: Stage IV decubitus ulcer PSYCH; Flat affect Assessment & Plan Assessment/Plan (1) Open wound of left buttock without complication: QUALIFIERS: Encounter type: initial encounter Qualified Code(s): S31.829A - Unspecified open wound of left buttock, initial encounter PLAN: Plan Patient is a 38-year-old gentleman resident at an extended care facility admitted by plastic surgery patient underwent partial ostectomy for stage IV decubitus ulcer. The hospitalist service consulted to assist with management of patient medical comorbidities 1. Stage IV decubitus ulcer s/p partial ostectomy on 12/08. Cultures sent following patient procedure. Recent cultures from 11/17/2023 grew Proteus and Pseudomonas. Cefepime added to therapy consult placed to ID 12/11/2023 patient seen in consultation by Dr. Medeiros with ID his noted recommendations reviewed 2. End-stage renal disease ? Patient has history of failed renal transplant. Currently on hemodialysis on Tuesdays and Saturdays consult placed to nephrology for dialysis orders 3. Hyperkalemia ? Secondary to ESRD plan is for patient to undergo dialysis 4. Anemia ? Secondary to anemia of end-stage renal disease monitoring H&H with plans to transfuse or if patient is deemed to be symptomatic 5. Dyslipidemia -Patient is on statin therapy, continued at home dose 6. Hypothyroidism - Patient is on levothyroxine home dose continued 7. Hypertension - Blood pressure controlled, home medications continued with dose adjustment as needed 8. Class III obesity with BMI of 44 ? Complicating care weight loss advised 9. Diabetes mellitus type II -patient's oral hypoglycemics held. Placed on long acting insulin, Accu-Cheks a.c. and at bedtime and covered with sliding scale insulin 10. GERD ? On PPI 11. Depression with anxiety ? Patient is on escitalopram did continue 12 history of left AKA ? Supportive care 13. History of previous VTE ? Patient is on apixaban did continue Time spent in the patient's overall evaluation,decision-making process, review of diagnostic data, adjustment of management, discussion with other providers, nursing nursing and ancillary staff involved in patient's care documentation, 35 minutes Charges/Coding Visit Charges Inpatient E&M: 27762 Subs Hosp L2
--- NOTE | 2023-12-11 09:05 | CASEMGMT ---
Discharge Planning Updates sent to [facility] via [employer]. Selina Sylvester DC Planning Asst.
--- NOTE | 2023-12-11 09:09 | WOUNDNOTE ---
Will see patient with Dr Villagran today since patient has continued with some oozing. silver nitrate sticks have been ordered and are in room for dressing change. patient has been getting Dakins moistened gauze dressing changes. nursing states that the dressing was reinforced last evening but the packing was not removed.
[2023-12-11] MEDS: Juven (unflavored) Packet 1 PACKET PO ×2 (09:41→18:07)
[2023-12-11] MEDS: Pantoprazole Sodium 40 MG Tablet PO (09:42)
[2023-12-11] MEDS: Calcitriol 0.25 MCG Capsule 1.25 MCG PO (09:42)
[2023-12-11] MEDS: Tacrolimus Anhydrous 1 MG Capsule 2 MG PO ×2 (09:42→22:53)
[2023-12-11] MEDS: Senna/Docusate Sodium 1 Tablet PO ×2 (09:43→22:52)
[2023-12-11 10:44] LABS: Anion Gap 12 (5-15); BUN 126 mg/dL (7-18); BUN/Creat Ratio 11.5 RATIO (10-20); Calcium,Total 8.2 mg/dL (8.5-10.1); Chloride 100 mmol/L (98-107); EST Glomerular Filtration Rate 6 mL/min (>60); Est Glom Filt Rate - Afr Amer 7 mL/min (>60); Estimated Creatinine Clearance 13.64 ml/min; Glucose 89 mg/dL (74-106); Magnesium 2.1 mg/dL (1.6-2.6); Pathologist Review Reviewed; Phosphorus 6.3 mg/dL (2.5-4.9); Potassium 5.7 mmol/L (3.5-5.1); Sodium Level 133 mmol/L (136-145)
[2023-12-11] MEDS: 0.9% Normal Saline 1,000 ML IV.SOLN. 1000 ML OPERA.SITE (11:30)
[2023-12-11] MEDS: PureFlow B 2K Dialysis Soln 1 BAG 6 BAG PF (11:30)
[2023-12-11 11:52] LABS: Bedside Glucose 96 mg/dL (74-106)
--- NOTE | 2023-12-11 12:43 | PN.RENAL_ITS ---
Subjective Subjective no new events Objective Data Objective Data Vital Signs: Vital Signs Temp Pulse Resp BP Pulse Ox O2 Del Method O2 Flow Rate 98.7 F 81 15 123/66 H 99 Nasal Cannula 2 12/11/23 08:00 12/11/23 12:22 12/11/23 12:22 12/11/23 12:22 12/11/23 05:57 12/11/23 12:22 12/11/23 12:22 Oxygen Flow Rate (L/min) 2 Oxygen Delivery Method Nasal Cannula Weight: 143.2 kg Body Mass Index (BMI) 42.7 Intake & Output: Intake and Output for Last 24 Hours 12/09/23 12/10/23 12/11/23 23:59 23:59 23:59 Intake Total 324.25 / 324.25 1090 / 1090 200 / 200 Output Total 100 / 125 2325 / 2325 Balance 224.25 / 199.25 -1235 / -1235 200 / 200 Lab / Micro Data 12/11/23 07:05 12/11/23 07:05 Labs: Laboratory Results - last 24 hr 12/10/23 16:15: POC Glucose 99 12/10/23 22:34: POC Glucose 94 12/11/23 05:55: POC Glucose 94 12/11/23 07:05: WBC 12.9 H, RBC 2.94 L, Hgb 8.8 L, Hct 29.1 L, MCV 99.0 H, MCH 29.9, MCHC 30.2 L, RDW Std Deviation 54.4 H, RDW Coeff of Shanta 15.2 H, Plt Count 163, MPV 11.1, Immature Gran % (Auto) 0.300, Neut % (Auto) 71.5 H, Lymph % (Auto) 13.6 L, [place] % (Auto) 12.5 H, Eos % (Auto) 1.6, Baso % (Auto) 0.5, A bsolute Neuts (auto) 9.3 H, Absolute Lymphs (auto) 1.76, Nucleated RBC % 0, Differential Comment COMMENT, Diff Path Review Reviewed, Sodium 133 L, Potassium 5.7 H, Chloride 100, Carbon Dioxide 21.0, Anion Gap 12, BUN 126 H*, Creatinine 11.00 H*, Estim Creat Clear Calc 13.64, Est GFR (MDRD) Af Amer 7 L, Est GFR (MDRD) Non-Af 6 L, BUN/Creatinine Ratio 11.5, Glucose 89, Calcium 8.2 L, P hosphorus 6.3 H, Magnesium 2.1 12/11/23 11:31: POC Glucose 96 Micro: Microbiology 12/09/23 Unknown Tissue - Ischial Pressure Sore Gram Stain - Final 12/09/23 Unknown Tissue - Ischial Pressure Sore Wound Culture - Preliminary Proteus mirabilis 12/09/23 Unknown Tissue - Ischial Pressure Sore Anaerobic Culture - Preliminary Checking for anaerobes, further studies to follow. 12/09/23 Unknown Bone - Ischial Bone Gram Stain - Final 12/09/23 Unknown Bone - Ischial Bone Wound Culture - Preliminary Proteus mirabilis GPC Poss Enterococcus sp 12/09/23 Unknown Bone - Ischial Bone Anaerobic Culture - Preliminary No growth in 48 hours. Physical Exam Narrative Alert awake oriented x 3 no obvious distress no pallor no icterus no JVD s1s2 no murmurs lungs clear abdomen soft no organomegaly no edema no cyanosis Assessment & Plan Assessment/Plan (1) End stage renal disease: PLAN: ESRD. As outpatient, he is on dialysis 4 times a week. Potassium remains on the higher side. BUN is still high. We will plan for dialysis again today.
--- NOTE | 2023-12-11 13:00 | PN.SURG_ITS ---
Subjective Subjective Postop #2 Objective Data Objective Data Patient sleeping during Dialysis. Vital Signs: Vital Signs Temp Pulse Resp BP Pulse Ox O2 Del Method O2 Flow Rate 98.7 F 81 15 123/66 H 99 Nasal Cannula 2 12/11/23 08:00 12/11/23 12:22 12/11/23 12:22 12/11/23 12:22 12/11/23 05:57 12/11/23 12:22 12/11/23 12:22 Oxygen Flow Rate (L/min) 2 Oxygen Delivery Method Nasal Cannula Weight: 315 lb 11.231 oz Body Mass Index (BMI) 42.7 Intake & Output: Intake and Output for Last 24 Hours 12/09/23 12/10/23 12/11/23 23:59 23:59 23:59 Intake Total 324.25 / 324.25 1090 / 1090 200 / 200 Output Total 100 / 125 2325 / 2325 Balance 224.25 / 199.25 -1235 / -1235 200 / 200 Lab / Micro Data Attestation: I reviewed the patient's lab results. 12/12/23 07:01 12/12/23 07:01 Labs: Laboratory Results - last 24 hr 12/10/23 16:15: POC Glucose 99 12/10/23 22:34: POC Glucose 94 12/11/23 05:55: POC Glucose 94 12/11/23 07:05: WBC 12.9 H, RBC 2.94 L, Hgb 8.8 L, Hct 29.1 L, MCV 99.0 H, MCH 29.9, MCHC 30.2 L, RDW Std Deviation 54.4 H, RDW Coeff of Shanta 15.2 H, Plt Count 163, MPV 11.1, Immature Gran % (Auto) 0.300, Neut % (Auto) 71.5 H, Lymph % (Auto) 13.6 L, [place] % (Auto) 12.5 H, Eos % (Auto) 1.6, Baso % (Auto) 0.5, A bsolute Neuts (auto) 9.3 H, Absolute Lymphs (auto) 1.76, Nucleated RBC % 0, Differential Comment COMMENT, Diff Path Review Reviewed, Sodium 133 L, Potassium 5.7 H, Chloride 100, Carbon Dioxide 21.0, Anion Gap 12, BUN 126 H*, Creatinine 11.00 H*, Estim Creat Clear Calc 13.64, Est GFR (MDRD) Af Amer 7 L, Est GFR (MDRD) Non-Af 6 L, BUN/Creatinine Ratio 11.5, Glucose 89, Calcium 8.2 L, P hosphorus 6.3 H, Magnesium 2.1 12/11/23 11:31: POC Glucose 96 Micro: Microbiology 12/09/23 Unknown Tissue - Ischial Pressure Sore Gram Stain - Final 12/09/23 Unknown Tissue - Ischial Pressure Sore Wound Culture - Preliminary Proteus mirabilis 12/09/23 Unknown Tissue - Ischial Pressure Sore Anaerobic Culture - Preliminary Checking for anaerobes, further studies to follow. 12/09/23 Unknown Bone - Ischial Bone Gram Stain - Final 12/09/23 Unknown Bone - Ischial Bone Wound Culture - Preliminary Proteus mirabilis GPC Poss Enterococcus sp 12/09/23 Unknown Bone - Ischial Bone Anaerobic Culture - Preliminary No growth in 48 hours. Physical Exam Const Constitutional Narrative: Very sleepy, patient receiving hemodialysis HEENT normocephalic Resp normal respiratory effort Cardio regular rate Skin Wound Narrative: Left ischial wound has small amount of oozing around the edges that silver nitrate was used to help stop the oozing. There is a blood clot in the base of the ulcer. Bone is palpable. Neuro moves all extremities Assessment & Plan Assessment/Plan (1) Open wound of left buttock without complication: QUALIFIERS: Encounter type: initial encounter Qualified Code(s): S31.829A - Unspecified open wound of left buttock, initial encounter (2) Osteomyelitis of pelvic region: (3) residential (current) use of 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: (4) H/O deep venous thrombosis: (5) DM type 2, goal HbA1c < 7%: (6) End stage renal disease: PLAN: Plan Patient sleeping in bed and receiving hemodialysis. Left ischial wound has a couple areas of oozing around the edges of the ulcer. Chemical cautery with silver nitrate used. Wound redressed with Dakin's 0.25% moistened Kerlix topped with ABD. Operative preliminary tissue cultures positive for Proteus mirabilis and GPC Poss Enterococcus. Operative bone preliminary culture positive for Proteus mirabilis and GPC Poss Enterococcus. He is being seen by ID who has him on IV Cefepime, Vancomycin and Metronidazole. Encourage protein supplementation to help with wound healing. He is receiving Kalyan BID. Prealbumin from 12/10/23 pending Hgb 8.8, down from 9.3. Will monitor. He can possibly return to ECF tomorrow.
--- NOTE | 2023-12-11 15:53 | CASEMGMT ---
Discharge Planning [facility] updated on discharge plans via [facility]. Selina Sylvester DC Planning Asst.
[2023-12-11 16:28] LABS: BUN 94 mg/dL (7-18); Creatinine, Serum 8.01 mg/dL (0.70-1.30); EST Glomerular Filtration Rate 8 mL/min (>60); Est Glom Filt Rate - Afr Amer 10 mL/min (>60); Estimated Creatinine Clearance 18.58 ml/min
[2023-12-11 17:01] LABS: Bedside Glucose 86 mg/dL (74-106)
[2023-12-11] MEDS: Cefepime HCl 1 GM in 0.9% Normal Saline (50mL MB+) 50 ML IV (20:20)
[2023-12-11] MEDS: Escitalopram Oxalate 10 MG Tablet 15 MG PO (22:49)
[2023-12-11] MEDS: traZODone 50 MG Tablet 150 MG PO (22:52)
[2023-12-11] MEDS: Atorvastatin Calcium 40 MG Tablet PO (22:52)
[2023-12-11] MEDS: Ascorbic Acid 500 MG Tablet PO (22:52)
[2023-12-11] MEDS: Carvedilol 12.5 MG Tablet PO (22:53)
[2023-12-11] MEDS: hydrALAZINE 50 MG Tablet PO (22:53)
[2023-12-11] MEDS: Gabapentin 100 MG Capsule 200 MG PO (22:55)
[2023-12-12] VITALS (7 sets, daily range): BP systolic 113–129; BP diastolic 50–68; PULSE 83–89; RESP 15–18; TEMP 36.8–37.7; O2SAT 93–98
[2023-12-12 00:28] LABS: Bedside Glucose 125 mg/dL (74-106)
[2023-12-12] MEDS: Ondansetron 4 MG/2 ML Vial IV (01:36)
[2023-12-12] MEDS: 0.9% Saline Lock 10 ML Syringe IV (01:36)
[2023-12-12] MEDS: hydrALAZINE 50 MG Tablet PO (05:09)
[2023-12-12] MEDS: Levothyroxine 150 MCG Tablet PO (05:09)
[2023-12-12] MEDS: SEVELAMER CARBONATE 800 MG TABLET 2400 MG PO ×2 (05:09→13:45)
[2023-12-12] MEDS: Acetaminophen 325 MG Tablet 650 MG PO (05:09)
[2023-12-12] MEDS: metroNIDAZOLE 500 MG Tablet PO (05:09)
[2023-12-12 07:05] LABS: Bedside Glucose 101 mg/dL (74-106)
[2023-12-12 07:13] LABS: Absolute Lymphocyte Count 1.48 X10^3/uL (0.83-4.51); Absolute Neutrophil Count 10.9 X10^3/uL (2.0-7.7); Basophil# 0.04 X10^3/uL; Basophil% 0.3 % (0-1); Eosinophils% 1.4 % (0-5); Hematocrit 28.6 % (40-54); Hemoglobin 8.5 g/dL (13.0-16.5); Lymphocyte # 1.48 X10^3/ul (0.83-4.51); Lymphocyte % 10.4 % (19-41); Mean Corp Hgb Conc 29.7 g/dL (32-36); Mean Corpuscular Hgb 29.2 pg (27.0-32.0); Mean Corpuscular Volume 98.3 fL (80-94); Mean Platelet Vol. 10.7 fl (6.2-12.0); Monocyte# 1.63 X10^3/uL; Monocyte% 11.4 % (0-10); NRBC Flagged by Analyzer 0 % (0-5); Neutrophil # 10.86 X10^3/uL (2.7-7.7); POSITIVE DIFFERENTIAL YES; Platelet Count 164 K/mm3 (150-450); RBC Distribution Width CV 14.9 % (11.6-14.6); RBC Distribution Width SD 54.1 fl (35.1-43.9); Red Blood Count 2.91 M/mm3 (4.6-6.2); White Blood Count 14.3 K/mm3 (4.4-11.0)
[2023-12-12 07:20] LABS: Differential Indicated SCAN CRITERIA MET
--- NOTE | 2023-12-12 07:55 | WOUNDNOTE ---
ostomy appliance removed. stoma pink and moist. slight maceration noted to the outer edges of the stoma. peristomal skin otherwise is intact. cleansed skin with warm water. pat dry. applied a new 2 piece [place] appliance with a small amount of stoma paste. pt tolerated well. will assess wound later this am. WBC still slightly elevated today. urine does appear milky and green/yellow. Pt has not been motivated to move and needs very much encouragement.
[2023-12-12 08:07] LABS: Differential Comment SCANNED
[2023-12-12 08:34] LABS: Anion Gap 10 (5-15); BUN 107 mg/dL (7-18); Calcium,Total 8.7 mg/dL (8.5-10.1); Chloride 100 mmol/L (98-107); Creatinine, Serum 9.74 mg/dL (0.70-1.30); EST Glomerular Filtration Rate 7 mL/min (>60); Est Glom Filt Rate - Afr Amer 8 mL/min (>60); Estimated Creatinine Clearance 15.28 ml/min; Glucose 102 mg/dL (74-106); Potassium 5.6 mmol/L (3.5-5.1); Sodium Level 132 mmol/L (136-145)
--- NOTE | 2023-12-12 08:35 | PN.HOSP_ITS ---
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 This been a drop in his hemoglobin level of 8.5 however no indication for blood transfusion at this Objective Data Objective Data Vital Signs: Vital Signs Temp Pulse Resp BP Pulse Ox O2 Del Method O2 Flow Rate 100 F H 87 18 113/62 94 Nasal Cannula 2 12/12/23 05:05 12/12/23 05:09 12/12/23 05:05 12/12/23 05:09 12/12/23 05:05 12/12/23 05:05 12/12/23 05:05 Oxygen Flow Rate (L/min) 2 Oxygen Delivery Method Nasal Cannula Weight: 141.2 kg Body Mass Index (BMI) 42.1 Intake & Output: Intake and Output for Last 24 Hours 12/10/23 12/11/23 12/12/23 23:59 23:59 23:59 Intake Total 1090 / 1090 1050 / 1050 Output Total 2325 / 2325 2100 / 2100 0 / 0 Balance -1235 / -1235 -1050 / -1050 0 / 0 Lab / Micro Data 12/12/23 07:01 12/12/23 07:01 Labs: Laboratory Results - last 24 hr 12/11/23 07:05: Diff Path Review Reviewed, Sodium 133 L, Potassium 5.7 H, Chloride 100, Carbon Dioxide 21.0, Anion Gap 12, BUN 126 H*, Creatinine 11.00 H* , Estim Creat Clear Calc 13.64, Est GFR (MDRD) Af Amer 7 L, Est GFR (MDRD) Non- Af 6 L, BUN/Creatinine Ratio 11.5, Glucose 89, Calcium 8.2 L, Phosphorus 6.3 H, Magnesium 2.1 12/11/23 11:31: POC Glucose 96 12/11/23 16:00: BUN 94 H, Creatinine 8.01 H*, Estim Creat Clear Calc 18.58, Est GFR (MDRD) Af Amer 10 L, Est GFR (MDRD) Non-Af 8 L 12/11/23 16:42: POC Glucose 86 12/11/23 22:45: POC Glucose 125 H 12/12/23 06:46: POC Glucose 101 12/12/23 07:01: WBC 14.3 H, RBC 2.91 L, Hgb 8.5 L, Hct 28.6 L, MCV 98.3 H, MCH 29.2, MCHC 29.7 L, RDW Std Deviation 54.1 H, RDW Coeff of Shanta 14.9 H, Plt Count 164, MPV 10.7, Immature Gran % (Auto) 0.500, Neut % (Auto) 76.0 H, Lymph % (Auto) 10.4 L, [place] % (Auto) 11.4 H, Eos % (Auto) 1.4, Baso % (Auto) 0.3, A bsolute Neuts (auto) 10.9 H, Absolute Lymphs (auto) 1.48, Nucleated RBC % 0, Differential Comment SCANNED, Diff Path Review November, Sodium 132 L, Potassium 5.6 H, Chloride 100, Carbon Dioxide 22.0, Anion Gap 10, BUN 107 H*, Creatinine 9.74 H*, Estim Creat Clear Calc 15.28, Est GFR (MDRD) Af Amer 8 L, Est GFR (MDRD) Non-Af 7 L, BUN/Creatinine Ratio 11.0, Glucose 102, Calcium 8.7 Micro: Microbiology 12/09/23 Unknown Tissue - Ischial Pressure Sore Gram Stain - Final 12/09/23 Unknown Tissue - Ischial Pressure Sore Wound Culture - Preliminary Proteus mirabilis GPC Poss Enterococcus sp 12/09/23 Unknown Tissue - Ischial Pressure Sore Anaerobic Culture - Preliminary Checking for anaerobes, further studies to follow. 12/09/23 Unknown Bone - Ischial Bone Gram Stain - Final 12/09/23 Unknown Bone - Ischial Bone Wound Culture - Preliminary Proteus mirabilis GPC Poss Enterococcus sp 12/09/23 Unknown Bone - Ischial Bone Anaerobic Culture - Preliminary No growth in 48 hours. Physical Exam Narrative GENERAL: cooperative HEENT: Atraumatic; normocephalic EYES; Anicteric, Normal Conjunctiva NECK; supple, normal thyroid, RESPIRATORY: Diminished to auscultation CARDIOVASCULAR: Regular S1 S2, GI: soft, normoactive bowel sounds, : No Renal angle tenderness; EXTREMITIES: No edema, no clubbing, MUSCULOSKELETAL: Left AKA NEURO: Awake; no lateralizing signs. SKIN: Stage IV decubitus ulcer PSYCH; Flat affect Assessment & Plan Assessment/Plan (1) Open wound of left buttock without complication: QUALIFIERS: Encounter type: initial encounter Qualified Code(s): S31.829A - Unspecified open wound of left buttock, initial encounter PLAN: Plan Patient is a 38-year-old gentleman resident at an extended care facility admitted by plastic surgery patient underwent partial ostectomy for stage IV decubitus ulcer. The hospitalist service consulted to assist with management of patient medical comorbidities 1. Stage IV decubitus ulcer s/p partial ostectomy on 12/08. Cultures sent following patient procedure. Recent cultures from 11/17/2023 grew Proteus and Pseudomonas. Cefepime added to therapy consult placed to ID 12/11/2023 patient seen in consultation by Dr. Medeiros with ID his noted recommendations reviewed ? 12/12/2023 sodium patient remains on broad-spectrum antibiotic therapy 2. End-stage renal disease ? Patient has history of failed renal transplant. Currently on hemodialysis on Tuesdays and Saturdays consult placed to nephrology for dialysis orders 3. Hyperkalemia ? Secondary to ESRD plan is for patient to undergo dialysis 4. Anemia ? Secondary to anemia of end-stage renal disease monitoring H&H with plans to transfuse or if patient is deemed to be symptomatic ? 12/12/2023; patient hemoglobin continues to drop however no indication for blood transfusion 5. Dyslipidemia -Patient is on statin therapy, continued at home dose 6. Hypothyroidism - Patient is on levothyroxine home dose continued 7. Hypertension - Blood pressure controlled, home medications continued with dose adjustment as needed 8. Class III obesity with BMI of 44 ? Complicating care weight loss advised 9. Diabetes mellitus type II -patient's oral hypoglycemics held. Placed on long acting insulin, Accu-Cheks a.c. and at bedtime and covered with sliding scale insulin 10. GERD ? On PPI 11. Depression with anxiety ? Patient is on escitalopram did continue 12 history of left AKA ? Supportive care 13. History of previous VTE ? Patient is on apixaban did continue Time spent in the patient's overall evaluation,decision-making process, review of diagnostic data, adjustment of management, discussion with other providers, nursing nursing and ancillary staff involved in patient's care documentation, 37 minutes Charges/Coding Visit Charges Inpatient E&M: 21346 Subs Hosp L2
[2023-12-12] MEDS: Juven (unflavored) Packet 1 PACKET PO ×2 (08:46→17:13)
[2023-12-12] MEDS: Midodrine HCl 5 MG Tablet 10 MG PO (08:47)
[2023-12-12] MEDS: Calcitriol 0.25 MCG Capsule 1.25 MCG PO (08:47)
[2023-12-12] MEDS: Senna/Docusate Sodium 1 Tablet PO (08:48)
[2023-12-12] MEDS: Tacrolimus Anhydrous 1 MG Capsule 2 MG PO (08:48)
[2023-12-12] MEDS: Pantoprazole Sodium 40 MG Tablet PO (08:48)
[2023-12-12] MEDS: Vancomycin IV 1,000 MG/200 ML BAG 200 MG IV (08:53)
--- NOTE | 2023-12-12 10:24 | RAD_ITS ---
STUDY: X-RAY CHEST REASON FOR EXAM: Male, 38 years old. Elevated WBC TECHNIQUE: Single AP portable view of the chest. COMPARISON: Comparison is made with prior study November 18, 2023. FINDINGS: Mild degree of gastric congestion and CHF. There is no demonstrated pleural abnormality. There is moderate cardiac enlargement. Normal mediastinum and ranjith. Normal visualized pulmonary arteries. Normal visualized aortic arch and descending thoracic aorta. Normal visualized thoracic spine. Normal visualized ribs, clavicles, and shoulders. There is no demonstrated abnormality of the visualized soft tissue structures of the upper abdomen. RAD/Chest 1 View (Portable) IMPRESSION: Cardiomegaly and vascular congestion and CHF. Electronically Signed: Rickie Jay MD at 10:49 EDT ,
--- NOTE | 2023-12-12 10:49 | PN.ID_ITS ---
Physical Exam Narrative Sleeping this AM, no fever Const no apparent distress Resp normal air movement and clear to auscultation bilaterally Cardio regular rate and regular rhythm GI soft to palpation, non-tender and non-distended Skin Skin Narrative: no new rash ID ID: Route of nutrition/ use of supplements: [] Nutritional Intake: [] IV Site: [] [place]st Catheter: [] Assessment & Plan Assessment/Plan (1) End stage renal disease: (2) Osteomyelitis of pelvic region: PLAN: Taken to OR 12/09/[address] Villagran for I&D down to bone. Surg cx with proteus, enterococcus. Will change to vanc and ertapenem, will write for 6 weeks iv abx dosed with HD (MTTF at [facility]ED[facility] AT [facility]) with weekly labs and stop date 01/20/24, ID followup in 2 weeks. Will follow
[2023-12-12 12:17] LABS: Bedside Glucose 131 mg/dL (74-106)
[2023-12-12] MEDS: Ertapenem Sod 0.5 GM in 0.9% Normal Saline (50mL Bag) 50 ML IV (13:40)
[2023-12-12] MEDS: DAKIN'S SOL HALF STRENGTH (=0.25%) 1 APPLIC TOPICAL (13:47)
--- NOTE | 2023-12-12 14:19 | PCM.PN.SRG ---
Subjective Subjective Postop #3 Patient denies complaints at this time. Objective Data Objective Data Vital Signs: Vital Signs Temp Pulse Resp BP Pulse Ox O2 Del Method O2 Flow Rate 99.8 F H 89 18 115/68 94 Nasal Cannula 2 12/12/23 09:00 12/12/23 09:00 12/12/23 09:00 12/12/23 13:46 12/12/23 09:00 12/12/23 09:00 12/12/23 09:00 Oxygen Flow Rate (L/min) 2 Oxygen Delivery Method Nasal Cannula Weight: 311 lb 4.683 oz Body Mass Index (BMI) 42.1 Intake & Output: Intake and Output for Last 24 Hours 12/10/23 12/11/23 12/12/23 23:59 23:59 23:59 Intake Total 1090 / 1090 1050 / 1050 Output Total 2325 / 2325 2100 / 2100 0 / 0 Balance -1235 / -1235 -1050 / -1050 0 / 0 Lab / Micro Data Attestation: I reviewed the patient's lab results. 12/12/23 07:01 12/12/23 07:01 Labs: Laboratory Results - last 24 hr 12/11/23 16:00: BUN 94 H, Creatinine 8.01 H*, Estim Creat Clear Calc 18.58, Est GFR (MDRD) Af Amer 10 L, Est GFR (MDRD) Non-Af 8 L 12/11/23 16:42: POC Glucose 86 12/11/23 22:45: POC Glucose 125 H 12/12/23 06:46: POC Glucose 101 12/12/23 07:01: WBC 14.3 H, RBC 2.91 L, Hgb 8.5 L, Hct 28.6 L, MCV 98.3 H, MCH 29.2, MCHC 29.7 L, RDW Std Deviation 54.1 H, RDW Coeff of Shanta 14.9 H, Plt Count 164, MPV 10.7, Immature Gran % (Auto) 0.500, Neut % (Auto) 76.0 H, Lymph % (Auto) 10.4 L, [place] % (Auto) 11.4 H, Eos % (Auto) 1.4, Baso % (Auto) 0.3, Absolute Neuts (auto) 10.9 H, Absolute Lymphs (auto) 1.48, Nucleated RBC % 0, Differential Comment SCANNED, Diff Path Review November, Sodium 132 L, Potassium 5.6 H, Chloride 100, Carbon Dioxide 22.0, Anion Gap 10, BUN 107 H*, Creatinine 9.74 H*, Estim Creat Clear Calc 15.28, Est GFR (MDRD) Af Amer 8 L, Est GFR (MDRD) Non-Af 7 L, BUN/Creatinine Ratio 11.0, Glucose 102, Calcium 8.7 12/12/23 11:50: POC Glucose 131 H Micro: Microbiology 12/09/23 Unknown Tissue - Ischial Pressure Sore Gram Stain - Final 12/09/23 Unknown Tissue - Ischial Pressure Sore Wound Culture - Preliminary Proteus mirabilis GPC Poss Enterococcus sp Mixed Gram Positive Organisms 12/09/23 Unknown Tissue - Ischial Pressure Sore Anaerobic Culture - Preliminary Checking for anaerobes, further studies to follow. 12/09/23 Unknown Bone - Ischial Bone Gram Stain - Final 12/09/23 Unknown Bone - Ischial Bone Wound Culture - Preliminary Proteus mirabilis GPC Poss Enterococcus sp Staphylococcus species 12/09/23 Unknown Bone - Ischial Bone Anaerobic Culture - Preliminary No growth in 48 hours. Radiography Diagnostic Testing: Radiology Impression Chest X-Ray 12/12/23 10:24 IMPRESSION: Cardiomegaly and vascular congestion and CHF. Electronically Signed: Rickie Jay MD at 10:49 EDT Reading Location ID and State: [address] [place] [address] , Service support , Physical Exam Const Constitutional Narrative: Very sleepy, patient receiving hemodialysis HEENT normocephalic Resp normal respiratory effort Cardio regular rate Extremity normal capillary refill Skin Wound Narrative: Left ischial wound dressing changed, minimal oozing present which stopped with pressure. There is a blood clot in the base of the ulcer. Bone is palpable. Neuro moves all extremities Assessment & Plan Assessment/Plan (1) End stage renal disease: (2) Osteomyelitis of pelvic region: (3) Open wound of left buttock without complication: QUALIFIERS: Encounter type: initial encounter Qualified Code(s): S31.829A - Unspecified open wound of left buttock, initial encounter (4) senior living (current) use of 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: (5) H/O deep venous thrombosis: (6) DM type 2, goal HbA1c < 7%: PLAN: Plan Patient resting in bed. Left ischial wound dressing changes daily with Dakin's 0.25% moistened Kerlix topped with ABD. Operative preliminary tissue cultures positive for Proteus mirabilis and GPC Poss Enterococcus. Operative bone preliminary culture positive for Proteus mirabilis and GPC Poss Enterococcus. His antibiotics are being managed by ID who has him on IV Vancomycin and Ertapenem for 6 weeks dosed during hemodialysis on at his ECF. Encourage protein supplementation to help with wound healing. He is receiving Kalyan BID. Prealbumin from 12/10/23 pending Hgb 8.5, down from 8.8. WBC 14.3 up from 12.9. After speaking with Dr. Villagran about this, we ordered UA (unable to obtain yet due to no urine production) and chest xray which showed Cardiomegaly and vascular congestion and CHF. Plan is to return him to ECF today. He will follow up with me at the wound healing center the week of December 22.
--- NOTE | 2023-12-12 14:37 | PCM.TXEXTCAR ---
Diet Diet Order/Speech Therapy: 12/10/23 14:46 Diet: Renal - General Dietary Modifications:: Consistent Carbohydrate Potassium Restricted Is pt able to select menu?: Yes Wound(s) left ishium: Wound Type: Pressure Injury Dressing Change: Dakins moistened gauze (Daily and prn) Suggestions for Active Care Change Position every (hours): 2 Hours to sit in a chair: 1 Times a day to sit in chair: 2 Therapies Physical Therapy: Eval and Treat Occupational Therapy: Eval and Treat Problem/Diagnosis (1) End stage renal disease: Status: Chronic Code(s): N18.6 - End stage renal disease (2) Osteomyelitis of pelvic region: Status: Chronic Code(s): M86.9 - Osteomyelitis, unspecified (3) Open wound of left buttock without complication: Status: Acute Code(s): S31.829A - Unspecified open wound of left buttock, initial encounter (4) [facility] (current) use of 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: Status: Chronic Code(s): Z79.01 - [facility]DC (current) use of 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 Comment: Hubert (5) H/O deep venous thrombosis: Status: Chronic Code(s): Z86.718 - Personal history of other venous thrombosis and embolism (6) DM type 2, goal HbA1c < 7%: Status: Chronic Code(s): E11.9 - Type 2 diabetes mellitus without complications Comment: HgbA1c from 12/10/23 was 6.5. Plan Patient resting in bed. Left ischial wound dressing changes daily with Dakin's 0.25% moistened Kerlix topped with ABD. Operative preliminary tissue cultures positive for Proteus mirabilis and GPC Poss Enterococcus. Operative bone preliminary culture positive for Proteus mirabilis and GPC Poss Enterococcus. His antibiotics are being managed by ID who has him on IV Vancomycin and Ertapenem for 6 weeks dosed during hemodialysis on at his [facility]. Encourage protein supplementation to help with wound healing. He is receiving Kalyan BID. Prealbumin from 12/10/23 pending Hgb 8.5, down from 8.8. WBC 14.3 up from 12.9. After speaking with Dr. Villagran about this, we ordered UA (unable to obtain yet due to no urine production) and chest xray which showed Cardiomegaly and vascular congestion and CHF. Plan is to return him to ECF today. He will follow up with me at the wound healing center the week of December 22. Allergies/Procedures Done in Hospital Allergies No Known Allergies Allergy (Verified 12/06/23 11:48) Type of Care/Length of Stay Estimated LOS: More Than 30 Days Type of Care Needed: Skilled Rehab Potential: Fair Prognosis: Fair Additional Orders/Day of Discharge Additional Orders: Dressing changes with Dakins 0.25% moistened gauze topped with ABD/super absorber daily and PRN H&P will serve as current which was dated: 12/10/23 Day of Discharge: 12/12/23 Dietary and Speech Recommendations Dietitian Recommendations/Changes: RD will change diet to Renal/CCD, potassium restriction diet to manage medical conditions Follow Up Care Please follow up with your Primary Care Physician in: 1 week Please Follow Up With: Barbara Trevino BOTTLE CAPPING MACHINE OPERATOR, BOTTLE CAPPING MACHINE OPERATOR-C When: [facility] [place] the week of December 22. Call [phone]. Discharge Plan Admission Admit Date/Time: 12/10/23 17:20 Attending Provider: Yusuf Villagran Primary Care Provider: Vanessa Hutchins Consulting Providers: Abdias Randall; Janet Bloom; Jace Salgado; Olga Moore; Fortunato Piper; Fortunato Palomo; Ben Schwartz; Morales Horowitz; Love Lakhani; Coy Wayne; Danitza Roca; Kyler Alvarez; Denver Saunders; Byron Ca; Rebecca Cedillo; Jordan Vasquez; Ansley Peña; Jabari Medeiros Discharge Orders/Prescriptions Prescriptions: New ertapenem 1 gram Recon Soln 0.5 g IV Q24 Qty: 23 0RF Rx Instructions: stop date 01/20/24. Dx: sacral osteomyelitis. Dose 0.5gm iv ertapenem with HD on Mon, , and . Dose 1gm iv erta with HD on Fridays. weekly bmp, cbc, LFT, vanc trough, and esr. Fax to [phone]. vancomycin 1,000 mg recon soln 750 mg IV .see below Qty: 23 0RF Rx Instructions: stop date 01/20/24. Dx: sacral osteomyelitis. Dose 750gm iv vancomycin with HD on Sat, , and . Dose 1gm iv vanc with HD on Fridays. weekly bmp, cbc, LFT, vanc trough, and esr. Fax to [phone]. oxycodone-acetaminophen [Percocet] 5-325 mg tablet 1 tab PO BID PRN (Reason: pain (scale score 7-10)) 7 Days Qty: 10 0RF Continued atorvastatin 40 mg Tablet 40 mg PO QHS acetaminophen 325 mg Tablet 650 mg PO Q4H PRN (Reason: PAIN/FEVER) carvedilol 12.5 mg Tablet 12.5 mg PO BID Rx Instructions: must administer with a meal/food ascorbic acid (vitamin C) 500 mg Tablet 500 mg PO QHS bisacodyl 10 mg Suppository 10 mg NV DAILY PRN (Reason: Constipation) dextrose [Glucose Gel] 40 % Gel 15 g PO Q15M PRN (Reason: Hypoglycemia) Rx Instructions: until symptoms of low blood sugar are controlled insulin lispro [Humalog KwikPen Insulin] 100 unit/mL Insulin Pen 6 unit SUBCUT QHS Eliquis 5 mg Tablet 5 mg PO BID trazodone 50 mg Tablet 150 mg PO QHS hydralazine 25 mg Tablet 50 mg PO Q8 pantoprazole 40 mg Tablet,Delayed Release (Dr/Ec) 40 mg PO DAILY clotrimazole-betamethasone 1-0.05 % Cream 1 applic TOPICAL QHS tacrolimus [Prograf] 1 mg Capsule 2 mg PO Q12H midodrine 10 mg Tablet 10 mg PO MOTUTHFR Rx Instructions: TAKE 1 TAB BY MOUTH EVERY SATURDAY, SATURDAY, SATURDAY, AND SATURDAY for hypotension prior to dialysis Hold BP >130/90 insulin glargine [Lantus Solostar U-100 Insulin] 100 unit/mL (3 mL) Insulin Pen 24 unit SUBCUT 1700 polyethylene glycol 3350 17 gram Powder In Packet 17 g PO DAILY PRN (Reason: constipation) promethazine 12.5 mg Tablet 12.5 mg PO Q8H PRN (Reason: Nausea) ondansetron HCl 4 mg Tablet 4 mg PO Q8H PRN PRN (Reason: Nausea) Senna Plus 8.6-50 mg Capsule 1 tab-cap PO BID calcitriol 0.5 mcg capsule 1.25 mcg PO DAILY Patient Comments: MAR STATES THAT PT TAKES IN THE MORNING gabapentin 100 mg capsule 200 mg PO BID sevelamer HCl 800 mg tablet 2,400 mg PO TID Rx Instructions: must administer with a meal/food escitalopram oxalate 20 mg tablet 15 mg PO QHS levothyroxine 150 mcg tablet 150 mcg PO DAILY Patient Comments: MAR STATES PT TAKES IN THE AM oxycodone 10 mg tablet 10 mg PO Q4H PRN (Reason: pain) 2 Days Qty: 12 0RF acetaminophen 650 mg suppository 650 mg NV Q4H PRN (Reason: fever or pain) magnesium hydroxide [Milk of Magnesia] 400 mg/5 mL suspension 30 ml PO DAILY PRN (Reason: constipation) glucagon 1 mg kit 1 mg subcut X1 PRN (Reason: hypoglycemia) Benadryl Extra Strength 2-0.1 % cream 1 applic topical Q6H PRN PRN (Reason: itching) insulin lispro 100 unit/mL solution 11 unit subcut 1700 acetaminophen 500 mg Tablet 1,000 mg PO TID ciclopirox 8 % solution 1 applic topical QHS Rx Instructions: right thumb insulin lispro [Humalog KwikPen Insulin] 100 unit/mL insulin pen 9 unit subcut 1200 Referrals / Follow Up: Vanessa Hutchins MD [Primary Care Provider] - Disposition Disposition (needs filled in before D/C Order can be placed): [facility] Facility (3) Open wound of left buttock without complication Qualifiers: Encounter type: initial encounter Qualified Code(s): S31.829A - Unspecified open wound of left buttock, initial encounter
--- NOTE | 2023-12-12 16:38 | CASEMGMT ---
Social Work- checked with Dr Villagran office who states they still plan to send pt today. A green sheet was placed on chart with transport forms and scripts. [facility] contacted to advise of pending pt d/c. DAMARI Rasheed
[2023-12-12 17:17] LABS: Bedside Glucose 95 mg/dL (74-106)
--- NOTE | 2023-12-12 21:44 | PCM.DC.SUM ---
Providers Date of Admission: 12/10/23 Date of Discharge: 12/12/23 Primary Care Physician: Dr. Vanessa Hutchins MD Consultations 12/09/23 10:21 Consult: Hospitalist Routine Consulting Provider: Jennie Davis Reason for Consult: medical management - diabetes, ESRD on dialysis (T,Th,Sat) EMERGENT Consult: No MD Notified: Yes Date Notified: 12/09/23 Time Notified: 13:51 Method of Notification: Text Method of Consult:: In-Person 12/09/23 16:01 Consult: Nephrology Routine Consulting Provider: Ansley Peña Reason for Consult: ESRD on HD EMERGENT Consult: No MD Notified: Yes Date Notified: 12/09/23 Time Notified: 16:01 Method of Notification: Text 12/10/23 08:40 Consult: Infectious Disease Routine Consulting Provider: Jabari Medeiros Reason for Consult: Stage IV decubitus ulcer EMERGENT Consult: No MD Notified: Yes Date Notified: 12/10/23 Time Notified: 08:45 Method of Notification: Text 12/10/23 10:07 Consult: Onc/Wound/tassel maker Routine Comment: Reason for Consult:: left ischial wound Reason For Visit: LEFT ISCHIAL PRESSURE SORE,STAGE IV Diagnosis Discharge Diagnosis (1) 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, stage 4: Status: Chronic Code(s): L89.324 - Pressure ulcer of left buttock, stage 4 (2) Osteomyelitis of pelvic region: Status: Chronic Code(s): M86.9 - Osteomyelitis, unspecified (3) Chronic kidney disease with end stage renal failure on dialysis: Status: Chronic Code(s): N18.6 - End stage renal disease; Z99.2 - Dependence on renal dialysis (4) DM type 2, goal HbA1c < 7%: Status: Chronic Code(s): E11.9 - Type 2 diabetes mellitus without complications (5) Community acquired MRSA infection: Status: Chronic Code(s): A49.02 - Methicillin resistant Staphylococcus aureus infection, unspecified site (6) H/O deep venous thrombosis: Status: Chronic Code(s): Z86.718 - Personal history of other venous thrombosis and embolism (7) [facility] (current) use of 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: Status: Chronic 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(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 (8) Anemia in chronic kidney disease, on chronic dialysis: Status: Chronic Code(s): N18.6 - End stage renal disease; D63.1 - Anemia in chronic kidney disease; Z99.2 - Dependence on renal dialysis Medications at Discharge Home Medications acetaminophen 325 mg tablet 650 mg PO Q4H PRN PAIN/FEVER 01/02/23 apixaban 5 mg tablet (Eliquis) 5 mg PO BID 01/02/23 ascorbic acid (vitamin C) 500 mg tablet 500 mg PO QHS 01/02/23 atorvastatin 40 mg tablet 40 mg PO QHS 01/02/23 bisacodyl 10 mg rectal suppository 10 mg IN DAILY PRN Constipation 01/02/23 carvedilol 12.5 mg tablet 12.5 mg PO BID 01/02/23 clotrimazole-betamethasone 1 %-0.05 % topical cream 1 applic topical QHS 01/02/23 dextrose 40 % oral gel (Glucose Gel) 15 g PO Q15M PRN Hypoglycemia 01/02/23 hydralazine 25 mg tablet 50 mg PO Q8 01/02/23 insulin glargine 100 unit/mL (3 mL) subcutaneous pen (Lantus Solostar U-100 Insulin) 17 unit subcut 1700 01/02/23 insulin lispro 100 unit/mL subcutaneous pen (Humalog KwikPen (U-100) Insulin) 6 unit subcut QHS 01/02/23 midodrine 10 mg tablet 10 mg PO MOTUTHFR 01/02/23 ondansetron HCl 4 mg tablet 4 mg PO Q8H PRN PRN Nausea 01/02/23 pantoprazole 40 mg tablet,delayed release 40 mg PO DAILY 01/02/23 polyethylene glycol 3350 17 gram oral powder packet 17 g PO DAILY PRN constipation 01/02/23 promethazine 12.5 mg tablet 12.5 mg PO Q8H PRN Nausea 01/02/23 sennosides 8.6 mg-docusate sodium 50 mg capsule (Senna Plus) 1 tab-cap PO BID Constipation 01/02/23 tacrolimus 1 mg capsule, immediate-release (Prograf) 2 mg PO Q12H 01/02/23 trazodone 50 mg tablet 150 mg PO QHS 01/02/23 calcitriol 0.5 mcg capsule 1.25 mcg PO DAILY 04/21/23 gabapentin 100 mg capsule 200 mg PO BID PHANTOM PAIN 04/21/23 sevelamer HCl 800 mg tablet 2,400 mg PO TID 04/21/23 escitalopram oxalate 20 mg tablet 15 mg PO QHS 07/16/23 levothyroxine 150 mcg tablet 150 mcg PO DAILY 07/16/23 oxycodone 10 mg tablet 10 mg PO Q4H PRN pain 2 days #12 tabs 07/19/23 acetaminophen 650 mg rectal suppository 650 mg IN Q4H PRN fever or pain 08/06/23 glucagon 1 mg injection kit 1 mg subcut X1 PRN hypoglycemia 08/06/23 magnesium hydroxide 400 mg/5 mL oral suspension (Milk of Magnesia) 30 ml PO DAILY PRN constipation 08/06/23 ciclopirox 8 % topical solution 1 applic topical QHS 11/17/23 insulin lispro 100 unit/mL subcutaneous pen (Humalog KwikPen (U-100) Insulin) 9 unit subcut 1200 11/17/23 acetaminophen 500 mg tablet 1,000 mg PO TID 12/06/23 diphenhydramine-zinc acetate 2 %-0.1 % topical cream (Benadryl Extra Strength) 1 applic topical Q6H PRN PRN itching 12/06/23 insulin lispro 100 unit/mL subcutaneous solution 11 unit subcut 1700 12/06/23 ertapenem 1 gram solution for injection 0.5 g IV Q24 #23 ea 12/12/23 oxycodone-acetaminophen 5 mg-325 mg tablet (Percocet) 1 tab PO BID PRN pain (scale score 7-10) 7 days #10 tabs 12/12/23 vancomycin 1,000 mg intravenous injection 750 mg IV .see below #23 ea 12/12/23 Hospital Course Operations - (12/09/23 - Excision left ischial pressure sore, Stage IV, with partial ostectomy for osteomyelitis.) Procedures Dialysis Summary of Care Provided Minutes Spent on Discharge: 40 Hospital Course: 38 year old male presents with a chronic left ischial pressure sore, Stage IV, that intermittently drains leading to periwound maceration. He has a history of ESRD on hemodialysis. History of failed kidney transplant, chronic systolic heart failure, hypertension, hyperlipidemia, diabetes mellitus type II, left bKA, and incomplete paraplegia. He resides at [facility] where he receives his hemodialysis on , , and Sat according to the patient. He had an operative debridement of his left ischial ulcer at [facility] 2 years ago, per the patient. He has had multiple wound cultures over the last several months showing MRSA, Proteus mirabilis, Enterococcus faecalis, Enterococcus avium, Enterococcus gallinarum, E. coli, and Anaerobic cocci and treated with antibiotics. He also had urine cultures that showed Proteus mirabilis and Pseudomonas aeroginosa. He had a CT Pelvis on 07/16/23. It showed the left ischial tuberosity has sclerotic and erosive changes concerning for osteomyelitis. His wound care consists of Dakin's dressing changes. The patient has diabetes mellitus and his last HgbA1c was 6.4 on 09/03/23. Because of the persistent drainage from the left ischial pressure sore, the macerated periwound has become a hindrance in the healing process. He was taken to surgery on 12/09/23 and underwent excision of his left ischial pressure sore with partial ostectomy for osteomyelitis. He tolerated the procedure well. His postop course was stable. The Hospitalist Group was consulted for medical management. Infectious Diseases was consulted to antibiotic management. Nephrology was consulted for his end stage renal disease on dialysis. He was dialyzed in the hospital based on his normal routine of Saturday, Saturday, , Saturday. The next day, there some oozing in the wound that was easily controlled with silver nitrate chemical cauterization and compression dressing. Wound care was with Dakin's dressing changes. The VAC was put on hold. Each day there was less oozing at the skin edges and controlled with silver nitrate chemical cauterization. At discharge, he was on Dakin's dressing changes and no more oozing was seen. No active bleeding was seen during his hospital stay. Will reassess at the Wound Center to determine when to start the VAC. Initially he was started on Vancomycin, Cefepime, and Flagyl. The early cultures Proteus and Gram positive cocci possible Enterococcus. At discharge, he was placed on Vancomycin and Ertapenem for 6 weeks of iV antibiotics to be given during dialysis. He will have weekly labs drawn. His WBC on 12/10/23 was 8.5. On the day of discharge on 12/12/23, the WBC increased to 14.3. It is not uncommon to have elevated WBC and fever soon after surgery because of surgical manipulation of the pressure sore. A CXR was ordered. It showed cardiomegaly, vascular congestion, and CHF. No infiltrates were seen. Urinalysis was ordered and pending because no urine was seen in the cano. At the time of discharge, the Anaerobic cultures were pending. A positive culture will necessitate antibiotic therapy. The Pathology is pending for osteomyelitis. On 12/12/23 he was discharged back to [facility] in stable condition. For pain a script was written for Percocet (10 tabs). Physical Exam Narrative PHYSICAL EXAMINATION General - Sleepy. HEENT - PERRL. EOMI. Neck - Supple and nontender. Abdomen - Soft and nondistended. Skin - Left ischial pressure sore is stable. Slight oozing at edges that was controlled with silver nitrate chemical cauterization. No active bleeding seen. Neuro - CN II-XII grossly intact. Psych - Normal mood and affect. Medical Records Data Attestation: I reviewed the patient's medical records Weight / BMI Weight Weight: 311 lb 4.683 oz Body Mass Index (BMI) 42.1 ABG / Lab / Microbiology Data Attestation: I reviewed the patient's lab results. 12/12/23 07:01 12/12/23 07:01 Laboratory: Laboratory Results - last 24 hr 12/12/23 07:01: Diff Path Review Reviewed Microbiology: Microbiology 12/09/23 Unknown Tissue - Ischial Pressure Sore Gram Stain - Final 12/09/23 Unknown Tissue - Ischial Pressure Sore Wound Culture - Preliminary Proteus mirabilis Enterococcus faecalis Coag Negative Staph 12/09/23 Unknown Tissue - Ischial Pressure Sore Anaerobic Culture - Preliminary Gram negative polo Anaerobic cocci 12/09/23 Unknown Bone - Ischial Bone Gram Stain - Final 12/09/23 Unknown Bone - Ischial Bone Wound Culture - Final Proteus mirabilis Enterococcus raffinosus Staphylococcus epidermidis 12/09/23 Unknown Bone - Ischial Bone Anaerobic Culture - Preliminary No growth in 48 hours. D/C Instructions Discharge Diet: Renal Diet Discharge Activity: May Shower (at the time of the Dakin's dressing changes) Weight Bearing Status: Weight bearing as tolerated Call your doctor if your incision/area has: Continuous Slow Oozing, Sudden Increased Bleeding, Increased Pain/ Swelling, Increased Redness, Foul Smelling Discharge and Swelling at the incision site Call your doctor if you observe: Fever of 101 or Higher, Coldness, Increased Pain, Shortness of breath, Chest pain, Calf discomfort and Uncontrolled pain Change Dressing in: 1 day (Dakin's dressing changes daily) Cleanse incision/area with: Soap & Water (at the time of the Dakin's dressing change) Catheter: Cano to leg bag Pending Tests Upon Discharge: Patient had a Urinalysis and Culture at the time of discharge. Please Follow Up With: Barbara Trevino NP, ANTIQUE COLLECTOR-C When: 1-2 weeks at the Wound Center. Call [phone] for appt. Meaningful Use Info Meaningful Use Meaningful Use Diagnoses (Choose all that apply): None applicable Ischemic Stroke Statin Dosing Therapy Reference: STATIN DOSE THERAPY REFERENCE: * Patients > 75 years receive moderate or high dose statin therapy. * Patients 75 years or YOUNGER should receive HIGH intensity statin dose unless contraindicated. You will be required to document reason for non-treatment if statin daily dose does not meet guidelines. HIGH DOSE STATIN THERAPY DAILY Atorvastatin > than or = to 40 mg Rosuvastatin > than or = to 20 mg Amlodipine + Atorvastatin > than or = to 2.5/40 mg Ezetimibe + Simvastatin 10/80 mg Simvastatin 80mg Discharge Plan Admission Admit Date/Time: 12/10/23 17:20 Primary Reason for Your Visit: excision left ischial pressure sore with partial ostectomy Attending Provider: Yusuf Villagran Primary Care Provider: Vanessa Hutchins Consulting Providers: Abdias Randall; Janet Bloom; Jace Salgado; Olga Moore; Fortunato Piper; Fortunato Palomo; Ben Schwartz; Morales Horowitz; Love Lakhani; Coy Wayne; Danitza Roca; Kyler Alvarez; Denver Saunders; Byron Ca; Rebecca Cedillo; Jordan Vasquez; Ansley Peña; Jabari Medeiros Discharge Orders/Prescriptions Prescriptions: New ertapenem 1 gram Recon Soln 0.5 g IV Q24 Qty: 23 0RF Rx Instructions: stop date 01/20/24. Dx: sacral osteomyelitis. Dose 0.5gm iv ertapenem with HD on Sat, , and . Dose 1gm iv erta with HD on Fridays. weekly bmp, cbc, LFT, vanc trough, and esr. Fax to [phone]. vancomycin 1,000 mg recon soln 750 mg IV .see below Qty: 23 0RF Rx Instructions: stop date 01/20/24. Dx: sacral osteomyelitis. Dose 750gm iv vancomycin with HD on Sat, , and . Dose 1gm iv vanc with HD on Fridays. weekly bmp, cbc, LFT, vanc trough, and esr. Fax to [phone]. oxycodone-acetaminophen [Percocet] 5-325 mg tablet 1 tab PO BID PRN (Reason: pain (scale score 7-10)) 7 Days Qty: 10 0RF Continued atorvastatin 40 mg Tablet 40 mg PO QHS acetaminophen 325 mg Tablet 650 mg PO Q4H PRN (Reason: PAIN/FEVER) carvedilol 12.5 mg Tablet 12.5 mg PO BID Rx Instructions: must administer with a meal/food ascorbic acid (vitamin C) 500 mg Tablet 500 mg PO QHS bisacodyl 10 mg Suppository 10 mg IN DAILY PRN (Reason: Constipation) dextrose [Glucose Gel] 40 % Gel 15 g PO Q15M PRN (Reason: Hypoglycemia) Rx Instructions: until symptoms of low blood sugar are controlled insulin lispro [Humalog KwikPen Insulin] 100 unit/mL Insulin Pen 6 unit SUBCUT QHS Eliquis 5 mg Tablet 5 mg PO BID trazodone 50 mg Tablet 150 mg PO QHS hydralazine 25 mg Tablet 50 mg PO Q8 pantoprazole 40 mg Tablet,Delayed Release (Dr/Ec) 40 mg PO DAILY clotrimazole-betamethasone 1-0.05 % Cream 1 applic TOPICAL QHS tacrolimus [Prograf] 1 mg Capsule 2 mg PO Q12H midodrine 10 mg Tablet 10 mg PO MOTUTHFR Rx Instructions: TAKE 1 TAB BY MOUTH EVERY SATURDAY, SATURDAY, SATURDAY, AND SATURDAY for hypotension prior to dialysis Hold BP >130/90 insulin glargine [Lantus Solostar U-100 Insulin] 100 unit/mL (3 mL) Insulin Pen 17 unit SUBCUT 1700 polyethylene glycol 3350 17 gram Powder In Packet 17 g PO DAILY PRN (Reason: constipation) promethazine 12.5 mg Tablet 12.5 mg PO Q8H PRN (Reason: Nausea) ondansetron HCl 4 mg Tablet 4 mg PO Q8H PRN PRN (Reason: Nausea) Senna Plus 8.6-50 mg Capsule 1 tab-cap PO BID calcitriol 0.5 mcg capsule 1.25 mcg PO DAILY Patient Comments: MAR STATES THAT PT TAKES IN THE MORNING gabapentin 100 mg capsule 200 mg PO BID sevelamer HCl 800 mg tablet 2,400 mg PO TID Rx Instructions: must administer with a meal/food escitalopram oxalate 20 mg tablet 15 mg PO QHS levothyroxine 150 mcg tablet 150 mcg PO DAILY Patient Comments: MAR STATES PT TAKES IN THE AM oxycodone 10 mg tablet 10 mg PO Q4H PRN (Reason: pain) 2 Days Qty: 12 0RF acetaminophen 650 mg suppository 650 mg IN Q4H PRN (Reason: fever or pain) magnesium hydroxide [Milk of Magnesia] 400 mg/5 mL suspension 30 ml PO DAILY PRN (Reason: constipation) glucagon 1 mg kit 1 mg subcut X1 PRN (Reason: hypoglycemia) Benadryl Extra Strength 2-0.1 % cream 1 applic topical Q6H PRN PRN (Reason: itching) insulin lispro 100 unit/mL solution 11 unit subcut 1700 acetaminophen 500 mg Tablet 1,000 mg PO TID ciclopirox 8 % solution 1 applic topical QHS Rx Instructions: right thumb insulin lispro [Humalog KwikPen Insulin] 100 unit/mL insulin pen 9 unit subcut 1200 Referrals / Follow Up: Vanessa Hutchins MD [Primary Care Provider] - Disposition Disposition (needs filled in before D/C Order can be placed): [facility]
[2023-12-13 11:49] LABS: Pathologist Review Reviewed
[2023-12-18 14:59] LABS: Prealbumin 31.4 mg/dL (20.0-40.0)
== END 2023-12-12 20:38 | disposition skilled nursing facility (03) | DRG 628 ==
LOC: SDC 10:50 → MS3 10:50
PROVIDERS: Anesthesiology; Internal Medicine; Internal Medicine Nephrology; Admitting Provider Surgery; PCP Internal Medicine; Referring Provider Surgery; Visit Provider Surgery
PROC: 0QB30ZZ Excision of Left Pelvic Bone, Open Approach (ICD-10-PCS; principal; 2023-12-09 07:15)
DX: E11.69 Type 2 diabetes mellitus with other specified complication (principal); L89.324 Pressure ulcer of left buttock, stage 4; I12.0 Hypertensive chronic kidney disease with stage 5 chronic kidney disease or end stage renal disease; M86.8X8 Other osteomyelitis, other site; Z68.41 Body mass index [BMI] 40.0-44.9, adult; Z94.0 Kidney transplant status; N18.6 End stage renal disease; E11.22 Type 2 diabetes mellitus with diabetic chronic kidney disease; A49.02 Methicillin resistant Staphylococcus aureus infection, unspecified site; E66.01 Morbid (severe) obesity due to excess calories; Z79.4 Long term (current) use of insulin; E03.9 Hypothyroidism, unspecified; F41.8 Other specified anxiety disorders; E87.5 Hyperkalemia; K21.9 Gastro-esophageal reflux disease without esophagitis; G47.33 Obstructive sleep apnea (adult) (pediatric); E78.5 Hyperlipidemia, unspecified; Z79.01 Long term (current) use of 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; Z86.718 Personal history of other venous thrombosis and embolism
CPT/HCPCS: 36415; 71045; 80048; 82565; 82962; 83036; 83735; 84100; 84134; 84443; 84520; 85025; 85027; 87015; 87070; 87075; 87077; 87102; 87116; 87176; 87186; 87205; 87206; 88305; 88311; 90937; J7030; J7040; J7120; A4216; G0257; J2405; J3490

== ENCOUNTER 2023-12-14 02:50 | Emergency (ER) | payer MEDICARE, MEDICAID, SELFPAY ==
[2023-12-14 02:51] VITALS: BP 140/84; PULSE 69; RESP 22; TEMP 36.5; O2SAT 100; BMI 42.0
--- NOTE | 2023-12-14 03:18 | EX.ED.DYSGE1 ---
HPI History of Present Illness Chief Complaint: Wound Check Informant: patient and EMS Narrative Narrative: 38-year-old male presenting from [facility] with a bleeding wound to left buttock. Patient was recently admitted and discharged yesterday. He underwent wound debridement and partial osteotomy with Dr. Villagran. He is followed by infectious disease as well as nephrology. He is a dialysis patient. Last hemoglobin 8.5 on 11 December. He is reportedly on Eliquis. [facility] is on [facility] at the [facility] Medical History snf (current) use of 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 H/O deep venous thrombosis Chronic kidney disease with end stage renal failure on dialysis Osteomyelitis of pelvic region 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, stage 4 DM type 2, goal HbA1c < 7% Lives in correction Anxiety Open wound Insulin dependent diabetes mellitus Uses wheelchair Injury of back Community acquired MRSA infection Non-healing wound of amputation stump Hypomagnesemia Hyperosmolality and hypernatremia Neurogenic bowel Pericardial effusion (noninflammatory) SIRS (systemic inflammatory response syndrome) Pyrexia Hyperkalemia Pneumonia Kidney transplant failure Dependence on renal dialysis Pressure ulcer of left heel, unspecified stage Gastro-esophageal reflux disease without esophagitis Acute on chronic systolic (congestive) heart failure Other pericardial effusion (noninflammatory) Other pulmonary embolism without acute cor pulmonale Hypertensive heart and chronic kidney disease with heart failure and stage 1 through stage 4 chronic kidney disease, or unspecified chronic kidney disease Depression Hyperlipemia Hypothyroidism Anemia in chronic kidney disease Neuromuscular dysfunction of bladder, unspecified Paraplegia, incomplete Other acute osteomyelitis, left ankle and foot End stage renal disease Acute pulmonary edema Acute respiratory failure with hypoxia Home Medications ?Medication ?Instructions ?Recorded ?Last Taken ?Type acetaminophen 325 mg tablet 650 mg PO Q4H PRN PAIN/FEVER 01/02/23 04/21/23 History apixaban 5 mg tablet (Eliquis) 5 mg PO BID 01/02/23 07/16/23 History ascorbic acid (vitamin C) 500 mg 500 mg PO QHS 01/02/23 12/08/23 History tablet atorvastatin 40 mg tablet 40 mg PO QHS 01/02/23 12/08/23 History bisacodyl 10 mg rectal suppository 10 mg TX DAILY PRN Constipation 01/02/23 Unknown History carvedilol 12.5 mg tablet 12.5 mg PO BID 01/02/23 12/09/23 History clotrimazole-betamethasone 1 1 applic topical QHS 01/02/23 07/15/23 History %-0.05 % topical cream dextrose 40 % oral gel (Glucose 15 g PO Q15M PRN Hypoglycemia 01/02/23 Unknown History Gel) hydralazine 25 mg tablet 50 mg PO Q8 01/02/23 12/09/23 History insulin glargine 100 unit/mL (3 17 unit subcut 1700 01/02/23 12/08/23 History mL) subcutaneous pen (Lantus Solostar U-100 Insulin) insulin lispro 100 unit/mL 6 unit subcut QHS 01/02/23 07/16/23 History subcutaneous pen (Humalog KwikPen (U-100) Insulin) midodrine 10 mg tablet 10 mg PO MOTUTHFR 01/02/23 12/09/23 History ondansetron HCl 4 mg tablet 4 mg PO Q8H PRN PRN Nausea 01/02/23 Unknown History pantoprazole 40 mg tablet,delayed 40 mg PO DAILY 01/02/23 12/08/23 History release polyethylene glycol 3350 17 gram 17 g PO DAILY PRN constipation 01/02/23 Unknown History oral powder packet promethazine 12.5 mg tablet 12.5 mg PO Q8H PRN Nausea 01/02/23 07/15/23 History sennosides 8.6 mg-docusate sodium 1 tab-cap PO BID Constipation 01/02/23 07/16/23 History 50 mg capsule (Senna Plus) tacrolimus 1 mg capsule, 2 mg PO Q12H 01/02/23 12/09/23 History immediate-release (Prograf) trazodone 50 mg tablet 150 mg PO QHS 01/02/23 12/08/23 History calcitriol 0.5 mcg capsule 1.25 mcg PO DAILY 04/21/23 12/08/23 History gabapentin 100 mg capsule 200 mg PO BID PHANTOM PAIN 04/21/23 12/09/23 History sevelamer HCl 800 mg tablet 2,400 mg PO TID 04/21/23 07/16/23 History escitalopram oxalate 20 mg tablet 15 mg PO QHS 07/16/23 07/16/23 History levothyroxine 150 mcg tablet 150 mcg PO DAILY 07/16/23 12/09/23 History oxycodone 10 mg tablet 10 mg PO Q4H PRN pain 2 days #12 07/19/23 Unknown Rx tabs acetaminophen 650 mg rectal 650 mg TX Q4H PRN fever or pain 08/06/23 Unknown History suppository glucagon 1 mg injection kit 1 mg subcut X1 PRN hypoglycemia 08/06/23 Unknown History magnesium hydroxide 400 mg/5 mL 30 ml PO DAILY PRN constipation 08/06/23 Unknown History oral suspension (Milk of Magnesia) ciclopirox 8 % topical solution 1 applic topical QHS 11/17/23 Unknown History insulin lispro 100 unit/mL 9 unit subcut 1200 11/17/23 Unknown History subcutaneous pen (Humalog KwikPen (U-100) Insulin) acetaminophen 500 mg tablet 1,000 mg PO TID 12/06/23 12/09/23 History diphenhydramine-zinc acetate 2 1 applic topical Q6H PRN PRN 12/06/23 Unknown History %-0.1 % topical cream (Benadryl itching Extra Strength) insulin lispro 100 unit/mL 11 unit subcut 1700 12/06/23 Unknown History subcutaneous solution ertapenem 1 gram solution for 0.5 g IV Q24 #23 ea 12/12/23 Unknown Rx injection oxycodone-acetaminophen 5 mg-325 1 tab PO BID PRN pain (scale score 12/12/23 Unknown Rx mg tablet (Percocet) 7-10) 7 days #10 tabs vancomycin 1,000 mg intravenous 750 mg IV .see below #23 ea 12/12/23 Unknown Rx injection Allergy/AdvReac Type Severity Reaction Status Date / Time No Known Allergies Allergy Verified 12/06/23 11:48 Family History Mother Hypertension Diabetes Father Hypertension Diabetes Surgical History History of kidney transplant S/P unilateral above knee amputation S/P foot surgery S/P colostomy Social History housing: correction Smoking Status: Never smoker alcohol intake: never substance use type: does not use ROS ROS ED Constitutional Constitutional ED: Denies chills, fever(s) or weight loss Eyes Eyes: Denies change in vision or diplopia ENT ENT ED: Denies ear pain, rhinorrhea or sore throat Cardiovascular Cardiovascular: Denies chest pain, orthopnea, palpitations or racing heartbeat Respiratory/Chest Respiratory/Chest: Denies cough, dyspnea or orthopnea Gastrointestinal Gastrointestinal: Denies abdominal pain, diarrhea, nausea or vomiting Genitourinary Genitourinary ED: Denies dysuria, hematuria or urinary frequency Musculoskeletal Musculoskeletal: Denies arthralgias or myalgias Integumentary Reports other Details: Chronic left buttock stage IV decubitus ulcer ; Denies abscess or rash Neurologic Neurologic: Denies headache(s) or weakness Psychiatric Psychiatric: Denies anxiety, depression, suicidal ideation or suicidal thoughts Endocrine Endocrinology: Denies polydipsia, polyphagia or polyuria Allergic/Immunologic Allergic/Immunologic ED: Denies mouth swelling, tongue swelling or urticaria EXAM Physical Exam Const Vital Signs: 12/14/23 02:51 12/14/23 04:36 Temperature 97.7 F L 97 F L Temperature Source Oral Pulse Rate 69 69 Respiratory Rate 22 H 18 Blood Pressure 140/84 H 152/94 H Blood Pressure Mean 102 113 Pulse Ox 100 100 Oxygen Delivery Method Nasal Cannula Oxygen Flow Rate (L/min) 4 Positive well nourished, well developed and obese General Appearance ED: well developed Nutritional Appearance: obese HEENT Reports normocephalic, head/scalp atraumatic and moist mucous membranes Eyes PERRL and EOMs intact bilaterally Neck no lymphadenopathy, supple and no JVD Resp normal respiratory effort and clear to auscultation bilaterally Cardio regular rate, regular rhythm and no murmurs GI normal to inspection, nondistended, normoactive bowel sounds and non-tender Palpation: soft Back/Spine no CVA tenderness and normal ROM Extremity normal to inspection General Extremety ED: Negative for edema General Extremity: Negative for edema Neuro oriented x3 and CN's II-XII intact bilaterally Sensorium / Orientation: alert Motor Exam: strength 5/5 throughout Psych mental status grossly normal Mood & Affect: Negative for depressed or tearful Skin no rashes or lesions noted Skin Narrative: There is a stage IV decubitus wound on the left buttock. There is a active venule that is bleeding in the lateral 3 o'clock position. MDM MDM MDM Narrative Medical decision making narrative: There is active bleeding coming from an apparent vein. I do not see any pulsatile bleeding. The vein appeared superficial in the tissue. I was able to identify it and locally anesthetized using lidocaine with epinephrine. I was then able to tie both ends of the vein off with 5-0 Vicryl which appeared to provide homeostasis. Surgicel and gauze packing was then placed followed by an ABD pad. He was observed here in the department. Hemoglobin was obtained and is 8.2. Is 8.52 days ago. Patient had no further bleeding. He will be discharged back to [facility] to continue with wound dressing changes. I would recommend leaving the Surgicel in place this time. History & Record Review Discussion w/independent historian: EMS personnel and Patient Additional record(s) reviewed:: Prior inpatient record, Prior ED visit and Prior labs Lab Data Attestation: I reviewed the patient's lab results. Labs: Laboratory Results - last 24 hr 12/14/23 03:52 Hgb 8.2 L Hct 27.0 L Discharge Plan Triage Chief Complaint: Wound Check ED Provider: Benoit Bautista Dx/Rx/DC Orders Clinical Impression: Post-op bleeding, End stage renal disease, Osteomyelitis of pelvic region, History of diabetes mellitus, Decubitus ulcer of ischial area Prescriptions: No Action atorvastatin 40 mg Tablet 40 mg PO QHS acetaminophen 325 mg Tablet 650 mg PO Q4H PRN (Reason: PAIN/FEVER) carvedilol 12.5 mg Tablet 12.5 mg PO BID Rx Instructions: must administer with a meal/food ascorbic acid (vitamin C) 500 mg Tablet 500 mg PO QHS bisacodyl 10 mg Suppository 10 mg TX DAILY PRN (Reason: Constipation) dextrose [Glucose Gel] 40 % Gel 15 g PO Q15M PRN (Reason: Hypoglycemia) Rx Instructions: until symptoms of low blood sugar are controlled insulin lispro [Humalog KwikPen Insulin] 100 unit/mL Insulin Pen 6 unit SUBCUT QHS Eliquis 5 mg Tablet 5 mg PO BID trazodone 50 mg Tablet 150 mg PO QHS hydralazine 25 mg Tablet 50 mg PO Q8 pantoprazole 40 mg Tablet,Delayed Release (Dr/Ec) 40 mg PO DAILY clotrimazole-betamethasone 1-0.05 % Cream 1 applic TOPICAL QHS tacrolimus [Prograf] 1 mg Capsule 2 mg PO Q12H midodrine 10 mg Tablet 10 mg PO MOTUTHFR Rx Instructions: TAKE 1 TAB BY MOUTH EVERY SATURDAY, SATURDAY, SATURDAY, AND SATURDAY for hypotension prior to dialysis Hold BP >130/90 insulin glargine [Lantus Solostar U-100 Insulin] 100 unit/mL (3 mL) Insulin Pen 17 unit SUBCUT 1700 polyethylene glycol 3350 17 gram Powder In Packet 17 g PO DAILY PRN (Reason: constipation) promethazine 12.5 mg Tablet 12.5 mg PO Q8H PRN (Reason: Nausea) ondansetron HCl 4 mg Tablet 4 mg PO Q8H PRN PRN (Reason: Nausea) Senna Plus 8.6-50 mg Capsule 1 tab-cap PO BID calcitriol 0.5 mcg capsule 1.25 mcg PO DAILY Patient Comments: MAR STATES THAT PT TAKES IN THE MORNING gabapentin 100 mg capsule 200 mg PO BID sevelamer HCl 800 mg tablet 2,400 mg PO TID Rx Instructions: must administer with a meal/food escitalopram oxalate 20 mg tablet 15 mg PO QHS levothyroxine 150 mcg tablet 150 mcg PO DAILY Patient Comments: MAR STATES PT TAKES IN THE AM oxycodone 10 mg tablet 10 mg PO Q4H PRN (Reason: pain) 2 Days Qty: 12 0RF acetaminophen 650 mg suppository 650 mg TX Q4H PRN (Reason: fever or pain) magnesium hydroxide [Milk of Magnesia] 400 mg/5 mL suspension 30 ml PO DAILY PRN (Reason: constipation) glucagon 1 mg kit 1 mg subcut X1 PRN (Reason: hypoglycemia) Benadryl Extra Strength 2-0.1 % cream 1 applic topical Q6H PRN PRN (Reason: itching) insulin lispro 100 unit/mL solution 11 unit subcut 1700 acetaminophen 500 mg Tablet 1,000 mg PO TID ertapenem 1 gram Recon Soln 0.5 g IV Q24 Qty: 23 0RF Rx Instructions: stop date 01/20/24. Dx: sacral osteomyelitis. Dose 0.5gm iv ertapenem with HD on Sat, , and . Dose 1gm iv erta with HD on Fridays. weekly bmp, cbc, LFT, vanc trough, and esr. Fax to [phone]. vancomycin 1,000 mg recon soln 750 mg IV .see below Qty: 23 0RF Rx Instructions: stop date 01/20/24. Dx: sacral osteomyelitis. Dose 750gm iv vancomycin with HD on Sat, , and . Dose 1gm iv vanc with HD on Fridays. weekly bmp, cbc, LFT, vanc trough, and esr. Fax to [phone]. oxycodone-acetaminophen [Percocet] 5-325 mg tablet 1 tab PO BID PRN (Reason: pain (scale score 7-10)) 7 Days Qty: 10 0RF ciclopirox 8 % solution 1 applic topical QHS Rx Instructions: right thumb insulin lispro [Humalog KwikPen Insulin] 100 unit/mL insulin pen 9 unit subcut 1200 Primary Care Provider: Vanessa Hutchins Referrals: Vanessa Hutchins MD [Primary Care Provider] - Print Language: Indonesian Disposition Disposition: [facility] Facility Discharge Location: [facility]
[2023-12-14 04:05] LABS: Hemoglobin 8.2 g/dL (13.0-16.5)
[2023-12-14 04:36] VITALS: BP 152/94; PULSE 69; RESP 18; TEMP 36.1; O2SAT 100
[2023-12-14] MEDS: Lidocaine 1% /Epi 1:100 (20ml) 20 ML Vial INFILT (04:43)
== END 2023-12-14 06:52 | disposition skilled nursing facility (03) ==
PROVIDERS: Emergency Provider Emergency Medicine; PCP Internal Medicine; Visit Provider Emergency Medicine
DX: I97.620 Postprocedural hemorrhage of a circulatory system organ or structure following other procedure (principal); L89.324 Pressure ulcer of left buttock, stage 4; N18.6 End stage renal disease; I12.0 Hypertensive chronic kidney disease with stage 5 chronic kidney disease or end stage renal disease; M86.8X8 Other osteomyelitis, other site; Z79.4 Long term (current) use of insulin; E11.22 Type 2 diabetes mellitus with diabetic chronic kidney disease; E11.69 Type 2 diabetes mellitus with other specified complication; Y83.8 Other surgical procedures as the cause of abnormal reaction of the patient, or of later complication, without mention of misadventure at the time of the procedure; Z99.2 Dependence on renal dialysis; Z79.01 Long term (current) use of 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; Z79.890 Hormone replacement therapy; Z79.899 Other long term (current) drug therapy
CPT/HCPCS: 37799; 85014; 85018; 99283

== ENCOUNTER 2023-12-23 08:20 | Outpatient (RCR) | payer MEDICARE, MEDICAID, SELFPAY ==
[2023-12-07 01:45] VITALS: BP 188/85; PULSE 90; RESP 20; TEMP 36.8; BMI 41.1
[2023-12-23 08:26] VITALS: BP 132/98; PULSE 74; RESP 18; BMI 41.1
--- NOTE | 2023-12-23 09:08 | PCM.WC.PN ---
History of Present Illness Date of Service: 12/23/23 Chief Complaint: Left ischial ulcer and left AKA stump wound History of Wound: 38 year old male has a chronic ulcer of his left ischium. He was admitted at [facility] from 07/16/23 to 07/19/23 for a cough, fever and chills. Patient was admitted for acutely infected chronic left ischial/sacral wound with concern for osteomyelitis, started on IV antibiotics. He has a history of ESRD on hemodialysis. History of failed kidney transplant, chronic systolic heart failure, hypertension, hyperlipidemia, diabetes mellitus type II, left AKA, and incomplete paraplegia. He resides at [facility] where he receives his hemodialysis. He had an operative debridement of his left ischial ulcer at [facility] 2 years ago, per the patient. CT of abdomen and pelvis on 07/16/23, related to the ulcer showed There is a decubitus ulcer in the left gluteus with extension into and sclerotic and erosive involvement of the left initial tuberosity. This is concerning for osteomyelitis. Ischial wound culture obtained on 07/16/23 which was positive for Proteus mirabilis, Escherichia coli, Enterococcus gallinarum, and MRSA. ID was consulted and he was treated with Vancomycin and Zosyn IV He was discharged on Linezolid and Augmentin and has finished them. He developed a wound on his left AKA stump which is now healed. Left AKA wound culture from 08/22/23 positive for Proteus mirabilis. He was started on Augmentin and has finished them. Left ischial ulcer wound culture from 10/15/23 positive for Proteus mirabilis, MRSA, Enterococcus faecalis, Enterococcus avium Anaerobic cocci. He is being treated with Augmentin and Doxycycline. Surgery 12/09/23 - Excision left ischial pressure sore, Stage IV, with partial ostectomy for osteomyelitis. Operative tissue cultures positive for Proteus mirabilis, Enterococcus faecalis, Staphylococcus epidermidis, Prevotella nanceiensis, and Anaerobic cocci. Operative bone cultures positive for Proteus mirabilis, Enterococcus raffinosus, Staphylococcus epidermidis, and Fingodia magna. ID is managing this and he currently is on Ertapenem and Vancomycin. Today he denies fever, chills, nausea or vomiting. Patient has diabetes mellitus. His last HgbA1c from 08/09/23 is 6.4. For elective surgeries, his HgbA1c needs to be less than 8. Progress of Wound: When patient arrived via transport, they stated that his BP was 80's/40's (taken on right forearm) and pulse ox was 81. Once patient was settled, we placed 2LNC, O2 sats immediately increased to mid 90's, able to wean off oxygen within 20 minutes. BP was 138/98 in right upper arm. Patient stated that he did not receive dialysis on Saturday due to an appointment. By the time he was ready to leave, his BP was stable as was his oxygen level on room air. He was alert and oriented the entire time. Left ischial ulcer is stable. No active bleeding. Bone is palpable. Will start wound VAC dressing changes three times per week. He has a follow up with Dr. Medeiros on 01/01/24. Objective Data Objective Data Vital Signs: Vital Signs Temp Pulse Resp BP O2 Del Method 98.2 F 74 18 132/98 H Room Air 12/07/23 01:45 12/23/23 08:26 12/23/23 08:26 12/23/23 08:26 12/23/23 08:26 Oxygen Delivery Method Room Air Weight: 302 lb 12.736 oz Body Mass Index (BMI) 41.1 Charges/Coding Procedures Integumentary 111xxx-113xx: 56012 Global Visit Physical Exam Const alert and no apparent distress General Appearance: cooperative HEENT normocephalic Head and Scalp: atraumatic Eyes General Eye: normal appearance of both eyes Neck full ROM Resp normal respiratory effort, normal air movement and clear to auscultation bilaterally Effort and Inspection: able to speak in complete sentences Cardio regular rate and regular rhythm GI soft to palpation and non-tender GI Narrative: Colostomy in place. Auscultation: normoactive bowel sounds Extremity Extremity Narrative: Left AKA. Skin Wound Narrative: Ulcer is stable. Bone is palpable and exposed. No active bleeding. Neuro moves all extremities Psych cooperative Attitude: calm Debridement Note Debridement Note No debridement was completed: No debridement was completed today Post-Debridement Measurements and Additional Note: Post-Debridement Measurements/Treatment MEHRAN - Nurse 1 - General Ulcer Assessment Start: 12/23/23 08:25 Freq: Status: Active Protocol: KATE Activity Type Activity Date Activity User E-sign Co-sign Detail Recorded Client Recorded Date Recorded By Document 12/23/23 08:26 KW l 12/23/23 08:37 KW 12/23/23 08:26 WC - Today's Visit Information Type of service Follow-up Visit (Physician/COMPUTER BUILDER ) Arrival Mode Stretcher Patient Identification Verified (Name & Yes ) Height and Weight Body Mass Index (BMI) 41.1 BMI Classification Obese Vital Signs Pulse Rate (60-100) 74 Pulse Location Monitor Respiratory Rate (12-18) 18 Respiratory rate source Observation Oxygen Delivery Method Room Air Blood Pressure (90/60-120/80) 132/98 H Blood Pressure Mean (mm Hg) 109 Source Monitor Position Semi-Fowlers Blood Pressure Location Right Arm History Since Last Visit- (Skip if this is Patient's initial visit) Have you changed medications since your No last visit? Any new allergies or adverse reactions No Had a fall/change in ADL's that may No increase risk of falls Signs or symptoms of abuse and/or No neglect since last visit Have you been in the hospital since your No last visit? Has dressing in place as prescribed Yes Has compression in place as prescribed N/A Has offloadiing in place as prescribed N/A Experienced any changes in pain level or No management Left Footwear No Footwear Right Footwear No Footwear Pain Scale: 0-10 Numeric Is Patient Pain Free? Yes - Nurse 1 - General Ulcer Measurement Start: 12/23/23 08:25 Freq: Status: Active Protocol: Activity Type Activity Date Activity User E-sign Co-sign Detail Recorded Client Recorded Date Recorded By Document 12/23/23 08:26 KW l 12/23/23 08:37 KW 12/23/23 08:26 Wound Center Nurse 1 #1 L Ischial -Combined with other wound No -Current Size (cm) - Length 7.2 -Current Size (cm) - Width 9.5 -Current Size (cm) - Depth 9 -Total Square Cm 68.40 -Date of Last Picture (Recall this 12/23/23 field) -Photo Taken Yes -Tunneling No -Undermining/Tunneling No -Circular Undermining No -Exudate Amt Large -Exudate Type Serosanguineous -Wound Margin Distinct, Outline Attached -Granulation Amt Medium (34-66%) -Granulation Quality Red -Slough/Fibrin Yes -Necrosis Amt Medium (34-66%) -Necrotic Tissue Type Adherent Slough -Texture (Chelsey-wound Skin Appearance) Assessed, Scarring -Moisture (Chelsey-wound Skin Appearance) Assessed -Color (Chelsey-wound Skin Appearance) Assessed -Temperature (Chelsey-wound Skin No Abnormality Appearance) (Pt Warm) -Tenderness on Palpation (Chelsey-wound No Skin Appearance) -Ulcer Cleansing Soap and Water -Foul Odor after Cleansing No -Anesthetic Used 4% Lidocaine Solution #5 L Buttocks -Current Size (cm) - Length 0.1 -Current Size (cm) - Width 0.1 -Current Size (cm) - Depth 0.1 -Total Square Cm 0.01 -Epithelialization Large 67-100% - Nurse 2 - General Ulcer CM Notes Start: 12/23/23 08:25 Freq: Status: Active Protocol: Activity Type Activity Date Activity User E-sign Co-sign Detail Recorded Client Recorded Date Recorded By Document 12/23/23 08:51 [id number] 12/23/23 08:52 12/23/23 08:51 Wound Center Nurse 2 #1 L Ischial -Correct Patient No -Correct Side, Site, Position No -Correct Procedure No -Procedure Performed No -Wound/Ulcer Outcome Not Healed #5 L Buttocks -Correct Patient No -Correct Side, Site, Position No -Correct Procedure No -Procedure Performed No -Wound/Ulcer Outcome Not Healed -Debridement - Subq, 1st 20sq cm No Pain Scale: 0-10 Numeric Is Patient Pain Free? Yes - Nurse 3 - General Ulcer D/C NN Start: 12/23/23 08:25 Freq: Status: Active Protocol: Activity Type Activity Date Activity User E-sign Co-sign Detail Recorded Client Recorded Date Recorded By Document 12/23/23 09:03 [facility] 12/23/23 09:04 [facility] 12/23/23 09:03 Wound Care Center Nurse 3 #5 L Buttocks -Ulcer Cleansing Rinsed/ Irrigated with Saline -Foul Odor after Cleansing No -Other Dressing dakins moist gauze -Primary Dressing Covered/Secured with Secured with Tape -Other Covering abd Treatment Response Procedure Tolerated Well Pain Scale: 0-10 Numeric Is Patient Pain Free? Yes - Visit Discharge Discharge Condition Stable Ambulatory Status Stretcher [facility] Type Care Home Care Facility Assessment/Plan Assessment/Plan (1) 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, stage 4: CODE(S): L89.324 - Pressure ulcer of left buttock, stage 4 (2) Ulcer of right foot with fat layer exposed: CODE(S): L97.512 - Non-pressure chronic ulcer of other part of right foot with fat layer exposed (3) Ulcer of right foot due to type 2 diabetes mellitus: CODE(S): E11.621 - Type 2 diabetes mellitus with foot ulcer; L97.519 - Non-pressure chronic ulcer of other part of right foot with unspecified severity (4) Open wound of left buttock without complication: CODE(S): S31.829A - Unspecified open wound of left buttock, initial encounter QUALIFIERS: Encounter type: initial encounter Qualified Code(s): S31.829A - Unspecified open wound of left buttock, initial encounter (5) Chronic kidney disease with end stage renal failure on dialysis: CODE(S): N18.6 - End stage renal disease; Z99.2 - Dependence on renal dialysis (6) DM type 2, goal HbA1c < 7%: CODE(S): E11.9 - Type 2 diabetes mellitus without complications (7) Community acquired MRSA infection: CODE(S): A49.02 - Methicillin resistant Staphylococcus aureus infection, unspecified site PLAN: Plan Patient evaluated at the wound healing center today. He states that he is now seeing a green chain puller for his right foot ulcers. Wound care - Has been Dakins 0.25% moistened gauze covered with ABD daily to the left ischial ulcer. He has not been having any signs of bleeding. Will start him on Wound VAC at 150 mmHg to be changed 3 times per week. At the time of the wound VAC dressing change, wash ulcer with soap and water. Encouraged off loading and not sitting or laying on the ulcer area for long periods of time. If he is up in a wheelchair, he needs to shift/reposition every 10 minutes for 10 seconds. Encouraged increased protein intake to help with wound healing. He would benefit from protein supplementation. He has ESRD and has dialysis M,T,,. He is to have dialysis today when he gets back to his facility. Operative tissue cultures from 12/09/23 were positive for Proteus mirabilis, Enterococcus faecalis, Staphylococcus epidermidis, Prevotella nanceiensis, and Anaerobic cocci. Operative bone cultures from 12/09/23 were positive for Proteus mirabilis, Enterococcus raffinosus, Staphylococcus epidermidis, and Fingodia magna. ID is managing this and he currently is on Ertapenem and Vancomycin. Left ischial wound culture from 07/16/23 showed Proteus mirabilis, E. coli, Enterococcus gallinarum, and MRSA. He was treated with Vancomycin and Zosyn in the hospital. He was discharged on Linezolid and Augmentin' Left AKA wound culture from 08/22/23 positive for Proteus mirabilis. He was started on Augmentin and has finished them. Left ischial ulcer wound culture from 10/15/23 positive for Proteus mirabilis, MRSA, Enterococcus faecalis, Enterococcus avium Anaerobic cocci. He is being treated with Augmentin and Doxycycline. Patient has diabetes mellitus. His HgbA1c from 08/09/23 was 6.4. Followup 3 weeks, since I will be out of town in 2 weeks.
== END 2024-01-05 23:59 | disposition home or self-care (01) ==
LOC: WC 08:20
PROVIDERS: PCP Internal Medicine; Referring Provider Nurse Practitioner Family; Visit Provider Nurse Practitioner Family
DX: L89.324 Pressure ulcer of left buttock, stage 4 (principal); I13.2 Hypertensive heart and chronic kidney disease with heart failure and with stage 5 chronic kidney disease, or end stage renal disease; G82.22 Paraplegia, incomplete; N18.6 End stage renal disease; E11.621 Type 2 diabetes mellitus with foot ulcer; Z93.3 Colostomy status; L97.512 Non-pressure chronic ulcer of other part of right foot with fat layer exposed; Z89.612 Acquired absence of left leg above knee; I50.22 Chronic systolic (congestive) heart failure; E11.22 Type 2 diabetes mellitus with diabetic chronic kidney disease; Z79.4 Long term (current) use of insulin; E78.5 Hyperlipidemia, unspecified; Z79.01 Long term (current) use of 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; Z79.899 Other long term (current) drug therapy; Z86.14 Personal history of Methicillin resistant Staphylococcus aureus infection
CPT/HCPCS: 99214; G0463

== ENCOUNTER → 2023-12-26 07:10 | Outpatient (REF) | payer MEDICARE, MEDICAID, SELFPAY ==
[2023-12-26 08:54] LABS: Absolute Lymphocyte Count 1.69 X10^3/uL (0.83-4.51); Absolute Neutrophil Count 6.8 X10^3/uL (2.0-7.7); Basophil# 0.04 X10^3/uL; Basophil% 0.4 % (0-1); Eosinophil# 0.39 X10^3/uL; Eosinophils% 3.9 % (0-5); Hemoglobin 7.9 g/dL (13.0-16.5); Lymphocyte # 1.69 X10^3/ul (0.83-4.51); Lymphocyte % 16.8 % (19-41); Mean Corp Hgb Conc 30.4 g/dL (32-36); Mean Corpuscular Hgb 29.5 pg (27.0-32.0); Mean Platelet Vol. 10.1 fl (6.2-12.0); Monocyte# 1.05 X10^3/uL; Monocyte% 10.4 % (0-10); NRBC Flagged by Analyzer 0 % (0-5); Neutrophil # 6.81 X10^3/uL (2.7-7.7); Neutrophil % 67.5 % (47-70); Platelet Count 262 K/mm3 (150-450); RBC Distribution Width CV 14.1 % (11.6-14.6); RBC Distribution Width SD 50.2 fl (35.1-43.9); Red Blood Count 2.68 M/mm3 (4.6-6.2); White Blood Count 10.1 K/mm3 (4.4-11.0)
[2023-12-26 09:00] LABS: Erythrocyte Sedimentation Rate 45 mm/hr (0-20)
[2023-12-26 10:59] LABS: Vancomycin, Trough Level 20.1 ug/mL (5.0-15.0)
[2023-12-26 11:15] LABS: AST(SGOT) 18 U/L (15-37); Alanine Aminotransfer ALT/SGPT 15 U/L (16-61); Albumin, Serum 2.4 g/dL (3.2-5.0); Alkaline Phosphatase 96 U/L (45-117); Anion Gap 12 (5-15); BUN 63 mg/dL (7-18); BUN/Creat Ratio 6.6 RATIO (10-20); Bilirubin, Direct 0.11 mg/dL (0.00-0.30); Calcium,Total 9.9 mg/dL (8.5-10.1); Chloride 96 mmol/L (98-107); Creatinine, Serum 9.55 mg/dL (0.70-1.30); EST Glomerular Filtration Rate 7 mL/min (>60); Est Glom Filt Rate - Afr Amer 8 mL/min (>60); Glucose 118 mg/dL (74-106); Potassium 4.8 mmol/L (3.5-5.1); Protein, Total 8.4 g/dL (6.4-8.2); Sodium Level 134 mmol/L (136-145)
== END ==
LOC: OLS.SW 07:10
PROVIDERS: PCP Internal Medicine; Referring Provider Internal Medicine; Visit Provider Internal Medicine
DX: I12.9 Hypertensive chronic kidney disease with stage 1 through stage 4 chronic kidney disease, or unspecified chronic kidney disease (principal); N18.9 Chronic kidney disease, unspecified; E11.9 Type 2 diabetes mellitus without complications
CPT/HCPCS: 80048; 80076; 80202; 85025; 85652; 86140

== ENCOUNTER 2023-12-30 16:30 | Inpatient (IN) | payer MEDICARE, MEDICAID, SELFPAY ==
[2023-12-30] VITALS (28 sets, daily range): BP systolic 73–137; BP diastolic 43–115; PULSE 73–90; RESP 12–20; TEMP 36.1–36.7; O2SAT 98–100; BMI 19.5; BMI 33.0; BMI 41.7
[2023-12-30] MEDS: 0.9% Normal Saline (1000mL) 1,000 ML 999 ML IV ×2 (16:40)
--- NOTE | 2023-12-30 16:43 | EKG12_ITS ---
Test Reason : BLEED Blood Pressure : / mmHG Vent. Rate : 087 BPM Atrial Rate : 087 BPM P-R Int : 152 ms QRS Dur : 080 ms QT Int : 370 ms P-R-T Axes : 048 039 100 degrees QTc Int : 445 ms Normal sinus rhythm Nonspecific T wave abnormality Abnormal ECG Confirmed by Benedicto Kendrick ([id number]), editor in chief JENS DANIELSON ([id number]) on 01/01/2024 11:40:41 AM Referred By: Confirmed By:Benedicto Kendrick
--- NOTE | 2023-12-30 16:47 | EX.ED.DYSGE1 ---
HPI History of Present Illness Chief Complaint: Wound Detail of Chief Complaint: Postop bleeding and depressed level of consciousness Informant: patient and SNF Onset/Context/Timing Onset: Hours Context: Sudden Onset Timing: Continuous Quality: Bleeding from sacral wound debridement Location: Sacral wound Current Severity: Moderate Maximum Severity: Moderate Worsened by: Patient on anticoagulant because of history of PE, DVT, spinal cord embolus Relieved by: Nothing Associated Symptoms Associated Symptoms: Decreased level of consciousness Narrative Narrative: Patient is a 38-year-old male. He had debridement of a stage IV sacral iliac wound by Dr. Yusuf Villagran today. He had to be taken back because of bleeding. He was discharged to a nursing facility. He was brought in emergently because of bleeding from the wound. Based on documentation at hand the Eliquis was not discontinued. Patient denies headache. He denies double vision blurred vision loss of vision. He does report chest pain. He does report mild shortness of breath. He denies abdominal pain. 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 He is on hemodialysis. His fistula is located in his left forearm. Prior similar symptoms: No Recent Illness/Hospitalization: Yes PFSH [facility] Medical History Anemia in chronic kidney disease, on chronic dialysis assisted (current) use of 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 H/O deep venous thrombosis Chronic kidney disease with end stage renal failure on dialysis Osteomyelitis of pelvic region 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, stage 4 DM type 2, goal HbA1c < 7% Lives in [facility] Anxiety Open wound Insulin dependent diabetes mellitus Uses wheelchair Injury of back Community acquired MRSA infection Non-healing wound of amputation stump Hypomagnesemia Hyperosmolality and hypernatremia Neurogenic bowel Pericardial effusion (noninflammatory) SIRS (systemic inflammatory response syndrome) Pyrexia Hyperkalemia Pneumonia Kidney transplant failure Dependence on renal dialysis Pressure ulcer of left heel, unspecified stage Gastro-esophageal reflux disease without esophagitis Acute on chronic systolic (congestive) heart failure Other pericardial effusion (noninflammatory) Other pulmonary embolism without acute cor pulmonale Hypertensive heart and chronic kidney disease with heart failure and stage 1 through stage 4 chronic kidney disease, or unspecified chronic kidney disease Depression Hyperlipemia Hypothyroidism Anemia in chronic kidney disease Neuromuscular dysfunction of bladder, unspecified Paraplegia, incomplete Other acute osteomyelitis, left ankle and foot End stage renal disease Acute pulmonary edema Acute respiratory failure with hypoxia Home Medications ?Medication ?Instructions ?Recorded ?Last Taken ?Type acetaminophen 325 mg tablet 650 mg PO Q4H PRN PAIN/FEVER 01/02/23 04/21/23 History apixaban 5 mg tablet (Eliquis) 5 mg PO BID 01/02/23 07/16/23 History ascorbic acid (vitamin C) 500 mg 500 mg PO QHS 01/02/23 12/08/23 History tablet atorvastatin 40 mg tablet 40 mg PO QHS 01/02/23 12/08/23 History bisacodyl 10 mg rectal suppository 10 mg ID DAILY PRN Constipation 01/02/23 Unknown History carvedilol 12.5 mg tablet 12.5 mg PO BID 01/02/23 12/09/23 History clotrimazole-betamethasone 1 1 applic topical QHS 01/02/23 07/15/23 History %-0.05 % topical cream dextrose 40 % oral gel (Glucose 15 g PO Q15M PRN Hypoglycemia 01/02/23 Unknown History Gel) hydralazine 25 mg tablet 50 mg PO Q8 01/02/23 12/09/23 History insulin glargine 100 unit/mL (3 17 unit subcut 1700 01/02/23 12/08/23 History mL) subcutaneous pen (Lantus Solostar U-100 Insulin) insulin lispro 100 unit/mL 6 unit subcut QHS 01/02/23 07/16/23 History subcutaneous pen (Humalog KwikPen (U-100) Insulin) midodrine 10 mg tablet 10 mg PO MOTUTHFR 01/02/23 12/09/23 History ondansetron HCl 4 mg tablet 4 mg PO Q8H PRN PRN Nausea 01/02/23 Unknown History pantoprazole 40 mg tablet,delayed 40 mg PO DAILY 01/02/23 12/08/23 History release polyethylene glycol 3350 17 gram 17 g PO DAILY PRN constipation 01/02/23 Unknown History oral powder packet promethazine 12.5 mg tablet 12.5 mg PO Q8H PRN Nausea 01/02/23 07/15/23 History sennosides 8.6 mg-docusate sodium 1 tab-cap PO BID Constipation 01/02/23 07/16/23 History 50 mg capsule (Senna Plus) tacrolimus 1 mg capsule, 2 mg PO Q12H 01/02/23 12/09/23 History immediate-release (Prograf) trazodone 50 mg tablet 150 mg PO QHS 01/02/23 12/08/23 History calcitriol 0.5 mcg capsule 1.25 mcg PO DAILY 04/21/23 12/08/23 History gabapentin 100 mg capsule 200 mg PO BID PHANTOM PAIN 04/21/23 12/09/23 History sevelamer HCl 800 mg tablet 2,400 mg PO TID 04/21/23 07/16/23 History escitalopram oxalate 20 mg tablet 15 mg PO QHS 07/16/23 07/16/23 History levothyroxine 150 mcg tablet 150 mcg PO DAILY 07/16/23 12/09/23 History oxycodone 10 mg tablet 10 mg PO Q4H PRN pain 2 days #12 07/19/23 Unknown Rx tabs acetaminophen 650 mg rectal 650 mg ID Q4H PRN fever or pain 08/06/23 Unknown History suppository glucagon 1 mg injection kit 1 mg subcut X1 PRN hypoglycemia 08/06/23 Unknown History magnesium hydroxide 400 mg/5 mL 30 ml PO DAILY PRN constipation 08/06/23 Unknown History oral suspension (Milk of Magnesia) ciclopirox 8 % topical solution 1 applic topical QHS 11/17/23 Unknown History insulin lispro 100 unit/mL 9 unit subcut 1200 11/17/23 Unknown History subcutaneous pen (Humalog KwikPen (U-100) Insulin) acetaminophen 500 mg tablet 1,000 mg PO TID 12/06/23 12/09/23 History diphenhydramine-zinc acetate 2 1 applic topical Q6H PRN PRN 12/06/23 Unknown History %-0.1 % topical cream (Benadryl itching Extra Strength) insulin lispro 100 unit/mL 11 unit subcut 1700 12/06/23 Unknown History subcutaneous solution ertapenem 1 gram solution for 0.5 g IV Q24 #23 ea 12/12/23 Unknown Rx injection oxycodone-acetaminophen 5 mg-325 1 tab PO BID PRN pain (scale score 12/12/23 Unknown Rx mg tablet (Percocet) 7-10) 7 days #10 tabs vancomycin 1,000 mg intravenous 750 mg IV .see below #23 ea 12/12/23 Unknown Rx injection Allergy/AdvReac Type Severity Reaction Status Date / Time No Known Allergies Allergy Verified 12/30/23 16:31 Family History Mother Hypertension Diabetes Father Hypertension Diabetes Surgical History History of kidney transplant S/P unilateral above knee amputation S/P foot surgery S/P colostomy Social History housing: [facility] Smoking Status: Never smoker alcohol intake: never substance use type: does not use ROS ROS ED Constitutional Constitutional ED: Denies chills or fever(s) Eyes Eyes: Denies blurry vision or change in vision ENT ENT ED: Denies ear pain or rhinorrhea Cardiovascular Cardiovascular: Reports chest pain and palpitations; Denies racing heartbeat Respiratory/Chest Respiratory/Chest: Reports dyspnea; Denies cough Gastrointestinal Gastrointestinal: Denies abdominal pain, nausea or vomiting Genitourinary Genitourinary ED: Denies dysuria or hematuria Psychiatric Psychiatric: Reports depression Endocrine Endocrinology: Denies cold intolerance or heat intolerance Hematologic/Lymphatic Hematologic/Lymphatic: Reports anemia, easy bleeding and easy bruising EXAM Physical Exam Const Vital Signs: 12/30/23 16:31 12/30/23 17:16 12/30/23 17:46 Temperature 97.8 F 97.8 F 97.8 F Temperature Source Temporal Pulse Rate 90 90 90 Respiratory Rate 18 18 18 Blood Pressure 129/115 H 129/115 H 129/115 H Blood Pressure Mean 119 119 Pulse Ox 98 98 98 Oxygen Delivery Method Room Air Positive well nourished and well developed Constitutional Narrative: Patient's blood pressure does not make sense. He has a markedly narrow pulse pressure. General Appearance ED: well developed; Negative for cyanotic or diaphoretic HEENT Reports dry mucous membranes HEENT Narrative: Head is atraumatic no cephalic. Ears normal. Nares patent. Mucosa is dry. Mouth ED: Yes dry mucous membranes Mouth: dry mucous membranes Eyes PERRL and EOMs intact bilaterally General Eye ED: Yes pale conjunctiva Neck no lymphadenopathy, supple and no JVD Neck Narrative: Trachea is midline. There is no inspiratory or extra stridor. Chest Wall inspection of chest normal and palpation of chest normal Resp normal respiratory effort and No clear to auscultation bilaterally Resp Narrative: By basilar rales. Cardio regular rate, regular rhythm, S1 normal heart sound, S2 normal heart sound and no murmurs GI normal to inspection, nondistended, normoactive bowel sounds, non-tender, non-distended and hepatosplenomegaly Narrative: No bleeding noted from the penis. Back/Spine no CVA tenderness Extremity Extremity Narrative: BKA left. Neuro Neuro Narrative: Neurologic deficit lower extremity exam due to prior spinal embolus. Sensorium / Orientation: lethargic; Negative for alert Psych Psych Narrative: Altered mental status due to hypotension patient had a blood pressure reading of 54/24. He has had varying blood pressures that are very elevated that with a very narrow pulse pressure and very low. Uncertain of the accuracy. He appears very pale. Skin Skin Narrative: Patient has gush of blood from the left sacroiliac wound that was debrided by Dr. Villagran earlier this month. He is out of town. MDM MDM MDM Narrative Medical decision making narrative: 1. Reviewed op note. He was operated on earlier this month by Dr. Villagran. Not been operated since. We were given misinformation by the [facility] and [facility]. I did contact Dr. Villagran. He informed he is out of town. Dr. garcia Lab Data Attestation: I reviewed the patient's lab results. Lab results narrative: H&H 6 9 and 22.3. Hemoglobin was 7.9 and 26.0 on December 25. On December 13 it was 8.2 and 27.0. On December 11 it was 8.5 and 28.6. Platelet count is adequate. Labs: Laboratory Results - last 24 hr 12/30/23 12/30/23 14:42 16:37 WBC 13.0 H RBC 2.33 L Hgb 6.9 L Hct 22.3 L MCV 95.7 H MCH 29.6 MCHC 30.9 L RDW Std Deviation 50.4 H RDW Coeff of Shanta 14.5 Plt Count 244 MPV 9.8 Immature Gran % (Auto) 0.400 Neut % (Auto) 71.2 H Lymph % (Auto) 12.7 L [place] % (Auto) 12.4 H Eos % (Auto) 2.8 Baso % (Auto) 0.5 Absolute Neuts (auto) 9.2 H Absolute Lymphs (auto) 1.64 Nucleated RBC % 0 Differential Comment SEE COMMENT Diff Path Review May foll Platelet Estimate ADEQUATE RBC Morphology N CHROM Hypochromasia 1+ Anisocytosis RARE Macrocytosis RARE Ovalocytes RARE PT 18.4 H INR 1.5 APTT 48.2 H Sodium 135 L Potassium 3.9 Chloride 97 L Carbon Dioxide 31.0 Anion Gap 7 BUN 43 H Creatinine 7.58 H* Estim Creat Clear Calc 12.48 Est GFR (MDRD) Af Amer 11 L Est GFR (MDRD) Non-Af 9 L BUN/Creatinine Ratio 5.7 L Glucose 89 Calcium 9.3 Troponin I High Sens 16 POC Glucose 86 EKG Initial EKG: Attestation: I personally reviewed and interpreted this EKG as follows: Interpretation: Sinus Rhythm (Rate is 87. Is nonseptic ST-T wave changes. ID interval 152 ms per cures duration 80 ms. QT duration 170 ms. [place] is normal. There is no symmetrically inverted T waves are evidence of ST elevation.) Management Discussion w/another healthcare provider: Wheel Shop Supervisor (Spoke with Dr. Humberto Garcia who saw patient in the ER and is taking him to the OR.) and Pharmacist (Spoke with Vasyl to place order for reversing agent of Eliquis since patient will need to go the OR and has significant bleeding) Treatment and Re-Evaluation :: 2 IVs have been established. Patient was typed and screened. Patient received fluids. Most recent blood pressure is 91 systolic. Verbal order for fluid bolus given to nurse. Plan is OR. Critical Care Time Critical Care Time: Yes Critical care time (excluding procedures): 30-74 minutes (32), Including time spent: (History, physical, documentation, discussion with Dr. Villagran, discussion with general surgery, discussion with pharmacy), Discussing w/Patient &/or Family/Environmental Services Supervisor (Evaluation of bleeding site and pressure to bleeding site.), Discussing w/Consultants and Arranging Admission or Transfer Discharge Plan Dx/Rx/DC Orders Clinical Impression: Acute hypotension, History of deep vein thrombosis, Anticoagulant long-term use, Anemia due to acute blood loss, End-stage renal disease on hemodialysis, Type 2 diabetes mellitus, Hx of pulmonary embolus, Chest pain Disposition Disposition: [facility] Discharge Date/Time: 12/30/23 17:27
[2023-12-30 16:54] LABS: Absolute Lymphocyte Count 1.64 X10^3/uL (0.83-4.51); Absolute Neutrophil Count 9.2 X10^3/uL (2.0-7.7); Basophil# 0.07 X10^3/uL; Basophil% 0.5 % (0-1); Eosinophil# 0.36 X10^3/uL; Eosinophils% 2.8 % (0-5); Hematocrit 22.3 % (40-54); Hemoglobin 6.9 g/dL (13.0-16.5); Lymphocyte # 1.64 X10^3/ul (0.83-4.51); Lymphocyte % 12.7 % (19-41); Mean Corp Hgb Conc 30.9 g/dL (32-36); Mean Corpuscular Hgb 29.6 pg (27.0-32.0); Mean Corpuscular Volume 95.7 fL (80-94); Mean Platelet Vol. 9.8 fl (6.2-12.0); Monocyte% 12.4 % (0-10); NRBC Flagged by Analyzer 0 % (0-5); Neutrophil # 9.23 X10^3/uL (2.7-7.7); Neutrophil % 71.2 % (47-70); POSITIVE DIFFERENTIAL YES; Platelet Count 244 K/mm3 (150-450); RBC Distribution Width CV 14.5 % (11.6-14.6); RBC Distribution Width SD 50.4 fl (35.1-43.9); Red Blood Count 2.33 M/mm3 (4.6-6.2)
[2023-12-30 17:04] LABS: Differential Indicated SCAN CRITERIA MET; International Normalized Ratio 1.5; Prothrombin Time (Protime)PT. 18.4 SECONDS (11.7-14.9)
[2023-12-30 17:06] LABS: Partial Thromboplast Time 48.2 Seconds (24.1-36.2)
[2023-12-30 17:17] LABS: Anion Gap 7 (5-15); BUN 43 mg/dL (7-18); BUN/Creat Ratio 5.7 RATIO (10-20); Calcium,Total 9.3 mg/dL (8.5-10.1); Chloride 97 mmol/L (98-107); Creatinine, Serum 7.58 mg/dL (0.70-1.30); EST Glomerular Filtration Rate 9 mL/min (>60); Est Glom Filt Rate - Afr Amer 11 mL/min (>60); Estimated Creatinine Clearance 12.48 ml/min; Glucose 89 mg/dL (74-106); Potassium 3.9 mmol/L (3.5-5.1); Sodium Level 135 mmol/L (136-145); Troponin-I HS (w/2H Reflex) 16 pg/mL (3.0-78.0)
--- NOTE | 2023-12-30 17:18 | SUR.PREOP ---
ARRIVES TO PACU PRE-OP PATIENT, HYPOTENSIVE, PLACED IN [place], REPORTEDLY BLEEDING FROM LEFT BUTTOCK WOUND BUT PRESSURE DRESSING WAS PLACED IN E.D. PER Dejuan RN. PATIENT DENIES PAIN OR NAUSEA AT THIS TIME. DR BLEVINS, ANESTHESIA, DR MASSEY, AND HESHAM, FUR DRESSER, ALL AWARE OF PATIENT ARRIVAL. LUNGS CLEAR. NYE CATH WITH SCANT AMT DARK BROWN URINE IN BAG. PATIENT REPORTEDLY LIVES AT [facility]. TOOK ELIQUIS TODAY. HAD HEMODIALYSIS TODAY. IS DIABETIC, LAST ACCUCHECK 80 AT APPROX 1610 PER Dejuan RN. NOTED TO HAVE T-WAVE DEPRESSION ON TELEMETRY, CALLED E.D. FOR EKG WHICH WAS OBTAINED. PRBC ORDERED BUT NOT YET READY FOR TXN.
[2023-12-30 17:19] LABS: Anisocytosis RARE; Hypochromasia 1+; Macrocytosis RARE; Ovalocyte RARE; Platelet Estimate ADEQUATE (ADEQ); Red Cell Morphology N CHROM NORMAL (NORM C&C)
[2023-12-30] MEDS: HUM PROTHROMBIN CPLX LANS IV (17:30)
[2023-12-30] MEDS: VIAFLEX IV (17:30)
--- NOTE | 2023-12-30 17:30 | HP.PCM.SX_ITS ---
HPI - General HPI Narrative CHINA GUILLEN, is a 38 M who presents with bleeding from his left ischial tuberosity wound. The patient had debridement of the left buttock ulcer at the beginning of December. He came in subsequently for suturing of the vein that was bleeding. States that he has been in the long-term and today they noted copious amounts of bleeding. EMS brought him in with hypotension and he had copious bright red bleeding from the wound. It is packed tightly. The patient came straight to the emergency room and I was called to deal with the bleeding. 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 H/O deep venous thrombosis Chronic kidney disease with end stage renal failure on dialysis Osteomyelitis of pelvic region 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, stage 4 DM type 2, goal HbA1c < 7% Lives in long-term Anxiety Open wound Insulin dependent diabetes mellitus Uses wheelchair Injury of back Community acquired MRSA infection Non-healing wound of amputation stump Hypomagnesemia Hyperosmolality and hypernatremia Neurogenic bowel Pericardial effusion (noninflammatory) SIRS (systemic inflammatory response syndrome) Pyrexia Hyperkalemia Pneumonia Kidney transplant failure Dependence on renal dialysis Pressure ulcer of left heel, unspecified stage Gastro-esophageal reflux disease without esophagitis Acute on chronic systolic (congestive) heart failure Other pericardial effusion (noninflammatory) Other pulmonary embolism without acute cor pulmonale Hypertensive heart and chronic kidney disease with heart failure and stage 1 through stage 4 chronic kidney disease, or unspecified chronic kidney disease Depression Hyperlipemia Hypothyroidism Anemia in chronic kidney disease Neuromuscular dysfunction of bladder, unspecified Paraplegia, incomplete Other acute osteomyelitis, left ankle and foot End stage renal disease Acute pulmonary edema Acute respiratory failure with hypoxia Home Medications ?Medication ?Instructions ?Recorded ?Last Taken ?Type acetaminophen 325 mg tablet 650 mg PO Q4H PRN PAIN/FEVER 01/02/23 04/21/23 History apixaban 5 mg tablet (Eliquis) 5 mg PO BID 01/02/23 07/16/23 History ascorbic acid (vitamin C) 500 mg 500 mg PO QHS 01/02/23 12/08/23 History tablet atorvastatin 40 mg tablet 40 mg PO QHS 01/02/23 12/08/23 History bisacodyl 10 mg rectal suppository 10 mg [place] DAILY PRN Constipation 01/02/23 Unknown History carvedilol 12.5 mg tablet 12.5 mg PO BID 01/02/23 12/09/23 History clotrimazole-betamethasone 1 1 applic topical QHS 01/02/23 07/15/23 History %-0.05 % topical cream dextrose 40 % oral gel (Glucose 15 g PO Q15M PRN Hypoglycemia 01/02/23 Unknown History Gel) hydralazine 25 mg tablet 50 mg PO Q8 01/02/23 12/09/23 History insulin glargine 100 unit/mL (3 17 unit subcut 1700 01/02/23 12/08/23 History mL) subcutaneous pen (Lantus Solostar U-100 Insulin) insulin lispro 100 unit/mL 6 unit subcut QHS 01/02/23 07/16/23 History subcutaneous pen (Humalog KwikPen (U-100) Insulin) midodrine 10 mg tablet 10 mg PO MOTUTHFR 01/02/23 12/09/23 History ondansetron HCl 4 mg tablet 4 mg PO Q8H PRN PRN Nausea 01/02/23 Unknown History pantoprazole 40 mg tablet,delayed 40 mg PO DAILY 01/02/23 12/08/23 History release polyethylene glycol 3350 17 gram 17 g PO DAILY PRN constipation 01/02/23 Unknown History oral powder packet promethazine 12.5 mg tablet 12.5 mg PO Q8H PRN Nausea 01/02/23 07/15/23 History sennosides 8.6 mg-docusate sodium 1 tab-cap PO BID Constipation 01/02/23 07/16/23 History 50 mg capsule (Senna Plus) tacrolimus 1 mg capsule, 2 mg PO Q12H 01/02/23 12/09/23 History immediate-release (Prograf) trazodone 50 mg tablet 150 mg PO QHS 01/02/23 12/08/23 History calcitriol 0.5 mcg capsule 1.25 mcg PO DAILY 04/21/23 12/08/23 History gabapentin 100 mg capsule 200 mg PO BID PHANTOM PAIN 04/21/23 12/09/23 History sevelamer HCl 800 mg tablet 2,400 mg PO TID 04/21/23 07/16/23 History escitalopram oxalate 20 mg tablet 15 mg PO QHS 07/16/23 07/16/23 History levothyroxine 150 mcg tablet 150 mcg PO DAILY 07/16/23 12/09/23 History oxycodone 10 mg tablet 10 mg PO Q4H PRN pain 2 days #12 07/19/23 Unknown Rx tabs acetaminophen 650 mg rectal 650 mg [place] Q4H PRN fever or pain 08/06/23 Unknown History suppository glucagon 1 mg injection kit 1 mg subcut X1 PRN hypoglycemia 08/06/23 Unknown History magnesium hydroxide 400 mg/5 mL 30 ml PO DAILY PRN constipation 08/06/23 Unknown History oral suspension (Milk of Magnesia) ciclopirox 8 % topical solution 1 applic topical QHS 11/17/23 Unknown History insulin lispro 100 unit/mL 9 unit subcut 1200 11/17/23 Unknown History subcutaneous pen (Humalog KwikPen (U-100) Insulin) acetaminophen 500 mg tablet 1,000 mg PO TID 12/06/23 12/09/23 History diphenhydramine-zinc acetate 2 1 applic topical Q6H PRN PRN 12/06/23 Unknown History %-0.1 % topical cream (Benadryl itching Extra Strength) insulin lispro 100 unit/mL 11 unit subcut 1700 12/06/23 Unknown History subcutaneous solution ertapenem 1 gram solution for 0.5 g IV Q24 #23 ea 12/12/23 Unknown Rx injection oxycodone-acetaminophen 5 mg-325 1 tab PO BID PRN pain (scale score 12/12/23 Unknown Rx mg tablet (Percocet) 7-10) 7 days #10 tabs vancomycin 1,000 mg intravenous 750 mg IV .see below #23 ea 12/12/23 Unknown Rx injection Allergy/AdvReac Type Severity Reaction Status Date / Time No Known Allergies Allergy Verified 12/30/23 16:31 Family History Mother Hypertension Diabetes Father Hypertension Diabetes Surgical History History of kidney transplant S/P unilateral above knee amputation S/P foot surgery S/P colostomy Social History housing: long-term Smoking Status: Never smoker alcohol intake: never substance use type: does not use ROS Constitutional Constitutional: Denies anorexia, chills or fatigue Eyes Eyes: Denies blurry vision ENT HEENT: Denies abnormal hearing Cardiovascular Cardiovascular: Denies chest pain Respiratory/Chest Respiratory/Chest: Denies cough, dyspnea or dyspnea on exertion Gastrointestinal Gastrointestinal: Denies abdominal pain, melena, nausea or vomiting Musculoskeletal Musculoskeletal: Denies abnormal gait or back pain Integumentary Integumentary: Denies jaundice Neurologic Neurologic: Reports abnormal gait Vital Signs Vital Signs Vital Signs: 12/30/23 16:31 12/30/23 17:16 Temperature 97.8 F 97.8 F Temperature Source Temporal Pulse Rate 90 90 Respiratory Rate 18 18 Blood Pressure 129/115 H 129/115 H Blood Pressure Mean 119 119 Pulse Ox 98 98 Oxygen Delivery Method Room Air Weight Weight: 144 lb 6.4 oz Body Mass Index (BMI) 19.5 Physical Exam Const oriented x3 Resp normal respiratory effort Cardio regular rate and regular rhythm GI soft to palpation and non-tender GI Narrative: Left buttock wound with bright red pulsatile bleeding Extremity normal to inspection Results Lab / Micro Data 12/30/23 14:42 12/30/23 14:42 Labs: Laboratory Results - last 24 hr 12/30/23 14:42: WBC 13.0 H, RBC 2.33 L, Hgb 6.9 L, Hct 22.3 L, MCV 95.7 H, MCH 29.6, MCHC 30.9 L, RDW Std Deviation 50.4 H, RDW Coeff of Shanta 14.5, Plt Count 244, MPV 9.8, Immature Gran % (Auto) 0.400, Neut % (Auto) 71.2 H, Lymph % (Auto) 12.7 L, [place] % (Auto) 12.4 H, Eos % (Auto) 2.8, Baso % (Auto) 0.5, Absolute Neuts (auto) 9.2 H, Absolute Lymphs (auto) 1.64, Nucleated RBC % 0, Differential Comment SEE COMMENT, Diff Path Review May , Platelet Estimate ADEQUATE, RBC Morphology N CHROM, Hypochromasia 1+, Anisocytosis RARE, Macrocytosis RARE, Ovalocytes RARE, PT 18.4 H, INR 1.5, APTT 48.2 H, Sodium 135 L, Potassium 3.9, C hloride 97 L, Carbon Dioxide 31.0, Anion Gap 7, BUN 43 H, Creatinine 7.58 H*, Estim Creat Clear Calc 12.48, Est GFR (MDRD) Af Amer 11 L, Est GFR (MDRD) Non-Af 9 L, BUN/Creatinine Ratio 5.7 L, Glucose 89, Calcium 9.3, Troponin I High Sens 16 Assessment & Plan Assessment/Plan (1) Post-op bleeding: PLAN: The patient is having bleeding from his wound from his left ischial fossa debridement. The patient has been having packings at the long-term and they copiously started bleeding today. The EMS squad said they had a lot of bleeding in the squad and his blood pressure was in the 60s when he arrived here. He has been getting fluids. I was unable to remove the packing as it was tightly adherent to the inside of the wound I did not want to disrupt and cause more bleeding in the emergency room. I discussed taking him back for surgery to wash this area out and try to stop this bleeding surgically. The patient is being given Kcentra to reverse his Eliquis. I will transfuse 2 units of hemoglobin. I will consult hospitalist for medical management and nephrology for dialysis. I will also consult wound management and he may need ID consult. Humberto Garcia MD Pager: [facility] [address] [place] [address], [address] [place] [address] Office:
[2023-12-30 17:41] LABS: Bedside Glucose 86 mg/dL (74-106)
--- NOTE | 2023-12-30 17:41 | PRE.ANES_ITS ---
ASA Classification* ASA Classification ASA Classification: 4 and E Assessment & Plan Anesthesia* Anesthesia Assessment Anesthesia Assessment: Discussed sedation and/or anesthesia options, risks, benefits, and alternatives with patient/parents/legal guardian/POA. Questions invited. The patient/parents/legal guardian/POA seems to understand and agrees to proceed with anesthesia plan. Reviewed the physical assessment, medical history, allergy history and patient home medications list prior to surgery/procedure/anesthetic and documented any changes. Performed airway and anesthesia risk assessments. Anesthesia Type Anesthesia Type: General History Source History Obtained from:: Patient and Chart Pre-Assessment Diagnosis/Proposed Procedure Planned Operative Procedure(s): Sacral wound debridement Anesthesia History Anesthesia History - financial services officer: Anesthesia History - financial services officer Hx Hospitalization Yes 12/06/23 12:02 Any Problems With Anesthesia No 12/06/23 12:02 Cholinesterase deficiency No 12/06/23 12:02 You/Your Family Experience No 12/06/23 12:02 fever (hyperthermia) with Relationship Recent Exposure to Contagious No 12/09/23 06:55 Disease Does patient have nerve No 12/06/23 12:02 stimulator Patient instructed to have device shut off --Does patient have Pacemaker or ICD? When Was Last Pacemaker Check QUESTION #4 FULL TEXT: You/Your Family Experience fever (hyperthermia) with Anesthesia Last Oral Intake Last Oral intake: Last Oral Intake NPO since 209912/29/23 Meds taken in AM with sips of water? Meds patient instructed to take am of surgery PONV PONV - financial services officer: PONV - financial services officer Female n HX of Motion Sickness n HX of N/V After Surgery n Non-Smoker n Duration of Surgery greater y than 60 minutes Number of Risk Factors 1 PONV Score 1 Height & Weight Height & Weight: Anesthesia: Height & Weight Height 6 ft 12/30/23 16:31 Weight: 65.499 kg 12/30/23 16:31 Body Mass Index (BMI) 19.5 12/30/23 16:31 Respiratory Assessment Respiratory Assessment - financial services officer: Respiratory Tract Infection Hx - financial services officer Hx Respiratory Tract Infection No 12/06/23 12:02 STOP Sleep Apnea STOP Sleep Apnea - financial services officer: STOP Sleep Apnea - financial services officer Hx Hypertension Yes: ON MED 12/09/23 19:41 Hx Sleep Apnea Yes 12/09/23 11:15 CPAP No: DOESN'T HAVE ACCESS TO 12/09/23 10:20 ONE BIPAP No 08/06/23 03:35 Do you snore loudly (louder than talking or can be heard Do you often feel tired/ fatigued/ sleepy during daytime? Has anyone observed you stop breathing during sleep? STOP Results QUESTION #5 FULL TEXT : Do you snore loudly (louder than talking or can be heard through closed doors)? Tobacco Use History Tobacco Use History - financial services officer: Tobacco Use History - financial services officer Tobacco Use Smoking Status Never smoker 12/30/23 16:42 Hx Tobacco Use No 12/09/23 11:38 Years Smoking Packs Smoked per Day Smoking Cessation Date was within the last 15 years Hx Smoking Cessation Date Hx Smoking Cessation Counseling Hematologic Medial History Hematologic Hx - financial services officer: Hematologic Medical Hx - automatic lathe tender Hx of Blood Transfusion Hx of Transfusion in last 3 Months Date of Last Transfusion (if within last 3 months) Ever experience any problems with transfusion(s)? Specify any problems Hx of Preganancy in last 3 Months Nurse Filling Out Transfusion & Questions: Date: Time: Patient unable to answer at this time (ie. confused, unrespo /Reproduction History /Reproductive History - financial services officer: /Reproductive Hx- financial services officer Hx Now Gestational Age (in weeks): EDC: Hx Hx Para Hx Section SAB No 12/06/23 12:02 Anesthesia Focused Assessment* Temperature: 97.8 F Pulse Rate: 90 Blood Pressure: 129/115 Respiratory Rate: 18 Pulse Ox: 98 Airway Assessment Mouth opens: 2 cm Mallampati Score: IV Teeth Condition: Intact Neck Range of motion (ROM): Limited ROM Focused Labs Anesthesia Preop lab: 2 CBC WBC 13.0 K/mm3 (4.4-11.0) H 12/30/23 14:42 RBC 2.33 M/mm3 (4.6-6.2) L 12/30/23 14:42 Hgb 6.9 g/dL (13.0-16.5) L 12/30/23 14:42 Hct 22.3 % (40-54) L 12/30/23 14:42 Plt Count 244 K/mm3 (150-450) 12/30/23 14:42 CHEMISTRY Potassium 3.9 mmol/L (3.5-5.1) 12/30/23 14:42 Sodium 135 mmol/L (136-145) L 12/30/23 14:42 Magnesium 2.1 mg/dL (1.6-2.6) 12/11/23 07:05 Phosphorus 6.3 mg/dL (2.5-4.9) H 12/11/23 07:05 BUN 43 mg/dL (7-18) H 12/30/23 14:42 Creatinine 7.58 mg/dL (0.70-1.30) H* 12/30/23 14:42 Glucose 89 mg/dL (74-106) 12/30/23 14:42 POC Glucose 95 mg/dL (74-106) 12/12/23 16:59 TSH 3.38 uIU/mL (0.358-3.74) 12/09/23 06:40 COAG PT 18.4 SECONDS (11.7-14.9) H 12/30/23 14:42 Review of Systems (Anesthesia) ROS Narrative System reviewed and no additional complaints, except as documented. Physical Exam Const alert and oriented x3 Orientation / Consciousness: awake Resp normal respiratory effort Cardio regular rate and regular rhythm PFSH Medical History Anemia in chronic kidney disease, on chronic dialysis emt intermediate (current) use of 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 H/O deep venous thrombosis Chronic kidney disease with end stage renal failure on dialysis Osteomyelitis of pelvic region 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, stage 4 DM type 2, goal HbA1c < 7% Lives in penitentiary Anxiety Open wound Insulin dependent diabetes mellitus Uses wheelchair Injury of back Community acquired MRSA infection Non-healing wound of amputation stump Hypomagnesemia Hyperosmolality and hypernatremia Neurogenic bowel Pericardial effusion (noninflammatory) SIRS (systemic inflammatory response syndrome) Pyrexia Hyperkalemia Pneumonia Kidney transplant failure Dependence on renal dialysis Pressure ulcer of left heel, unspecified stage Gastro-esophageal reflux disease without esophagitis Acute on chronic systolic (congestive) heart failure Other pericardial effusion (noninflammatory) Other pulmonary embolism without acute cor pulmonale Hypertensive heart and chronic kidney disease with heart failure and stage 1 through stage 4 chronic kidney disease, or unspecified chronic kidney disease Depression Hyperlipemia Hypothyroidism Anemia in chronic kidney disease Neuromuscular dysfunction of bladder, unspecified Paraplegia, incomplete Other acute osteomyelitis, left ankle and foot End stage renal disease Acute pulmonary edema Acute respiratory failure with hypoxia Home Medications ?Medication ?Instructions ?Recorded ?Last Taken ?Type acetaminophen 325 mg tablet 650 mg PO Q4H PRN PAIN/FEVER 01/02/23 04/21/23 History apixaban 5 mg tablet (Eliquis) 5 mg PO BID 01/02/23 07/16/23 History ascorbic acid (vitamin C) 500 mg 500 mg PO QHS 01/02/23 12/08/23 History tablet atorvastatin 40 mg tablet 40 mg PO QHS 01/02/23 12/08/23 History bisacodyl 10 mg rectal suppository 10 mg [place] DAILY PRN Constipation 01/02/23 Unknown History carvedilol 12.5 mg tablet 12.5 mg PO BID 01/02/23 12/09/23 History clotrimazole-betamethasone 1 1 applic topical QHS 01/02/23 07/15/23 History %-0.05 % topical cream dextrose 40 % oral gel (Glucose 15 g PO Q15M PRN Hypoglycemia 01/02/23 Unknown History Gel) hydralazine 25 mg tablet 50 mg PO Q8 01/02/23 12/09/23 History insulin glargine 100 unit/mL (3 17 unit subcut 1700 01/02/23 12/08/23 History mL) subcutaneous pen (Lantus Solostar U-100 Insulin) insulin lispro 100 unit/mL 6 unit subcut QHS 01/02/23 07/16/23 History subcutaneous pen (Humalog KwikPen (U-100) Insulin) midodrine 10 mg tablet 10 mg PO MOTUTHFR 01/02/23 12/09/23 History ondansetron HCl 4 mg tablet 4 mg PO Q8H PRN PRN Nausea 01/02/23 Unknown History pantoprazole 40 mg tablet,delayed 40 mg PO DAILY 01/02/23 12/08/23 History release polyethylene glycol 3350 17 gram 17 g PO DAILY PRN constipation 01/02/23 Unknown History oral powder packet promethazine 12.5 mg tablet 12.5 mg PO Q8H PRN Nausea 01/02/23 07/15/23 History sennosides 8.6 mg-docusate sodium 1 tab-cap PO BID Constipation 01/02/23 07/16/23 History 50 mg capsule (Senna Plus) tacrolimus 1 mg capsule, 2 mg PO Q12H 01/02/23 12/09/23 History immediate-release (Prograf) trazodone 50 mg tablet 150 mg PO QHS 01/02/23 12/08/23 History calcitriol 0.5 mcg capsule 1.25 mcg PO DAILY 04/21/23 12/08/23 History gabapentin 100 mg capsule 200 mg PO BID PHANTOM PAIN 04/21/23 12/09/23 History sevelamer HCl 800 mg tablet 2,400 mg PO TID 04/21/23 07/16/23 History escitalopram oxalate 20 mg tablet 15 mg PO QHS 07/16/23 07/16/23 History levothyroxine 150 mcg tablet 150 mcg PO DAILY 07/16/23 12/09/23 History oxycodone 10 mg tablet 10 mg PO Q4H PRN pain 2 days #12 07/19/23 Unknown Rx tabs acetaminophen 650 mg rectal 650 mg IA Q4H PRN fever or pain 08/06/23 Unknown History suppository glucagon 1 mg injection kit 1 mg subcut X1 PRN hypoglycemia 08/06/23 Unknown History magnesium hydroxide 400 mg/5 mL 30 ml PO DAILY PRN constipation 08/06/23 Unknown History oral suspension (Milk of Magnesia) ciclopirox 8 % topical solution 1 applic topical QHS 11/17/23 Unknown History insulin lispro 100 unit/mL 9 unit subcut 1200 11/17/23 Unknown History subcutaneous pen (Humalog KwikPen (U-100) Insulin) acetaminophen 500 mg tablet 1,000 mg PO TID 12/06/23 12/09/23 History diphenhydramine-zinc acetate 2 1 applic topical Q6H PRN PRN 12/06/23 Unknown History %-0.1 % topical cream (Benadryl itching Extra Strength) insulin lispro 100 unit/mL 11 unit subcut 1700 12/06/23 Unknown History subcutaneous solution ertapenem 1 gram solution for 0.5 g IV Q24 #23 ea 12/12/23 Unknown Rx injection oxycodone-acetaminophen 5 mg-325 1 tab PO BID PRN pain (scale score 12/12/23 Unknown Rx mg tablet (Percocet) 7-10) 7 days #10 tabs vancomycin 1,000 mg intravenous 750 mg IV .see below #23 ea 12/12/23 Unknown Rx injection Allergy/AdvReac Type Severity Reaction Status Date / Time No Known Allergies Allergy Verified 12/30/23 16:31 Family History Mother Hypertension Diabetes Father Hypertension Diabetes Surgical History History of kidney transplant S/P unilateral above knee amputation S/P foot surgery S/P colostomy Social History housing: penitentiary Smoking Status: Never smoker alcohol intake: never substance use type: does not use
[2023-12-30] MEDS: Cefazolin 2 GM in 0.9% Normal Saline (100mL Bag) 100 ML IV (18:08)
[2023-12-30 18:48] LABS: Reflex Troponin-HS? (from REC) Y
--- NOTE | 2023-12-30 19:20 | PCM.POST.ANE ---
Anesthesia: Postop Eval I Current Vital Signs Temperature: 97 F Pulse Rate: 89 Blood Pressure: 120/82 Respiratory Rate: 18 Pulse Ox: 98 Assessment Airway patent: Yes Spontaneous unlabored respirations: Yes nausea: Yes Vomiting: Yes Anesthesia Complication: No Fluid Hydration Crystalloid volume administer (ml): 500 Total IV fluid infused: 500 Progress Note Anesthesia document: Postop Eval 1 completed: Yes
--- NOTE | 2023-12-30 19:21 | PCM.OPRPT ---
Report of Operation Date of Procedure: 12/30/23 Pre-Operative Diagnosis: Heavy bleeding from decubitus ulcer Post-Operative Diagnosis: Same Surgery/Procedure Performed:: Irrigation and washout of the left buttock ischial wound with packing Type of Anesthesia: General/Regional Estimated Blood Loss (mL): 20 Description of Procedure: Patient was brought back to the operating room and general anesthesia was induced. The patient was placed in prone position. The area was prepped with Betadine and then the old Curlex was removed slowly with suction at the ready. It appeared that the patient was oozing from his posterior pelvis but we could not appreciate any arterial bleeding. All of the oozing was cauterized but it did not stop easily and the patient became very oozing. It is thought that he may be becoming coagulopathic. The area was irrigated and suctioned dry and all the old clot was removed. Hemoblast was sprayed and irrigated and pressure was held. Next using argon beam coagulation all the areas were coagulated and then the area was irrigated and suctioned once more and hemoblast was placed back into the wound bed. It appeared to be some mild ooze with no arterial bleeding and so the area was packed with dampened Curlex and dressing was applied. Patient was awoken and taken to ICU. Grafts/Implants Used: 2 rolls of Kerlix placed in the posterior wound Admit VTE Documentation VTE Mechan Device Prophylaxis: SCD's
--- NOTE | 2023-12-30 19:45 | RAD_ITS ---
INDICATION: wheezing EXAMINATION/TECHNIQUE: X-RAY - portable upright AP chest x-ray COMPARISON: 12/12/2023 FINDINGS: LINES/DEVICES: None. LUNGS: No consolidation, edema or effusion. No pneumothorax. MEDIASTINUM AND CARDIOVASCULAR STRUCTURES: Stable cardiomegaly. BONES AND SOFT TISSUES: No acute changes. RAD/Chest 1 View (Portable) IMPRESSION: Cardiomegaly without radiographic evidence of acute cardiopulmonary disease. Electronically Signed: Michel Stinson MD at 21:07 EDT ,
--- NOTE | 2023-12-30 19:47 | PCM.POSTANE2 ---
Anesthesia Postop Eval I Sum Anesthesia Postop Eval I Summary Anesthesia Postop Eval I Summary: Anesthesia Postop Eval I: Assessment Summary Airway patent Spontaneous unlabored respirations Mental status nausea Vomiting Anesthesia Postop Eval I: Fluid Summary Crystalloid volume administer (ml) Colloids volume administered ( ml) Blood Product volume administered (ml) Total IV fluid infused Anesthesia Postop Eval I: Summary Notes Anesthesia Complication Anesthesia Complication Comment: Post-operative progress note Anesthesia: Postop Eval II Evaluation Mental status: Awake Pain Level: 1 nausea: No Vomiting: No Progress Note Post-operative progress note: To ICU to monitor for bleeding, vss. no anesthesia issues noted Complications Anesthesia Complication: No
[2023-12-30] MEDS: Albuterol 2.5 MG/3 ML VIAL.NEB. INHALATION (19:53)
[2023-12-30] MEDS: 0.9% Normal Saline (1000mL) 1,000 ML 60 ML IV (19:53)
--- NOTE | 2023-12-30 20:24 | PCM.CONS.GEN ---
Assessment & Plan Assessment/Plan (1) Hx of pulmonary embolus: (2) Type 2 diabetes mellitus: (3) End-stage renal disease on hemodialysis: (4) Anemia due to acute blood loss: (5) Anticoagulant long-term use: (6) History of deep vein thrombosis: (7) Acute hypotension: (8) Anemia in chronic kidney disease, on chronic dialysis: (9) DM type 2, goal HbA1c < 7%: PLAN: Plan 1 hypotension due to acute hemorrhage from wound?patient is stable now in the ICU following surgery and transfusion. Patient has ongoing transfusion at this time. ICU tear down matcher has been consulted and Dr. Garcia surgeon is managing 2. Diabetes?will continue routine home medications 3. End-stage renal disease on dialysis?nephrology consult 4. Chronic wound?infectious disease has been consulted will continue antibiotics he has been on by infectious disease at the longterm. Hospitalist service will continue to follow the patient medically while he is inpatient in our facility. HPI Consult Data Date of Consult: 12/30/23 HPI Narrative Reason for Consultation: Hypotension and acute bleeding HPI Narrative: CHINA GUILLEN, is a 38 M who presents to the emergency room from the [facility] [place] due to acute bleeding from a chronic wound of his left ischial tuberosity that is chronic. During a wound dressing change patient was found to have copious amounts of blood in the wound area and was feeling lightheaded and dizzy. He was transferred to the emergency room and found to have a hemoglobin of 6.7 with more oozing of blood in the wound area. Patient was taken to surgery immediately from the emergency room where no large vessel hemorrhage was noted, however, patient is on chronic anticoagulation and surgeon described the wound as oozing in many places. Patient was cauterized using argon laser and packing material etc. Patient did receive a unit of blood during the operation and a unit of fresh frozen plasma. He was also given medicine to reverse his Eliquis anticoagulation. Patient was extubated following surgery and transferred to the intensive care unit for close monitoring post surgery. The patient is to be given another unit of blood overnight.. Patient does have a complex past medical history including end-stage renal disease for which she is on Eliquis, long-term anticoagulation therapy, chronic wounds and he has bilateral amputee and diabetes. Hospitalist service was called to manage chronic medical conditions while patient is admitted. [facility] Medical History Anemia in chronic kidney disease, on chronic dialysis longterm (current) use of 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 H/O deep venous thrombosis Chronic kidney disease with end stage renal failure on dialysis Osteomyelitis of pelvic region 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, stage 4 DM type 2, goal HbA1c < 7% Lives in longterm Anxiety Open wound Insulin dependent diabetes mellitus Uses wheelchair Injury of back Community acquired MRSA infection Non-healing wound of amputation stump Hypomagnesemia Hyperosmolality and hypernatremia Neurogenic bowel Pericardial effusion (noninflammatory) SIRS (systemic inflammatory response syndrome) Pyrexia Hyperkalemia Pneumonia Kidney transplant failure Dependence on renal dialysis Pressure ulcer of left heel, unspecified stage Gastro-esophageal reflux disease without esophagitis Acute on chronic systolic (congestive) heart failure Other pericardial effusion (noninflammatory) Other pulmonary embolism without acute cor pulmonale Hypertensive heart and chronic kidney disease with heart failure and stage 1 through stage 4 chronic kidney disease, or unspecified chronic kidney disease Depression Hyperlipemia Hypothyroidism Anemia in chronic kidney disease Neuromuscular dysfunction of bladder, unspecified Paraplegia, incomplete Other acute osteomyelitis, left ankle and foot End stage renal disease Acute pulmonary edema Acute respiratory failure with hypoxia Home Medications ?Medication ?Instructions ?Recorded ?Last Taken ?Type acetaminophen 325 mg tablet 650 mg PO Q4H PRN PAIN/FEVER 01/02/23 04/21/23 History apixaban 5 mg tablet (Eliquis) 5 mg PO BID blood thinner 01/02/23 07/16/23 History ascorbic acid (vitamin C) 500 mg 500 mg PO QHS supplement 01/02/23 12/08/23 History tablet atorvastatin 40 mg tablet 40 mg PO QHS hypercholestremia 01/02/23 12/08/23 History bisacodyl 10 mg rectal suppository 10 mg [place] DAILY PRN Constipation 01/02/23 Unknown History carvedilol 12.5 mg tablet 12.5 mg PO .BID CM HYPERTENSION 01/02/23 12/09/23 History clotrimazole-betamethasone 1 1 applic topical QHS rash 01/02/23 07/15/23 History %-0.05 % topical cream dextrose 40 % oral gel (Glucose 15 g PO Q15M PRN Hypoglycemia 01/02/23 Unknown History Gel) hydralazine 25 mg tablet 50 mg PO Q8 hypertension 01/02/23 12/09/23 History insulin glargine 100 unit/mL (3 11 unit subcut 1700 diabetes 01/02/23 12/08/23 History mL) subcutaneous pen (Lantus Solostar U-100 Insulin) insulin lispro 100 unit/mL 6 unit subcut QHS diabetes 01/02/23 07/16/23 History subcutaneous pen (Humalog KwikPen (U-100) Insulin) midodrine 10 mg tablet 10 mg PO MOTUTHFR DIALYSIS 01/02/23 12/09/23 History ondansetron HCl 4 mg tablet 4 mg PO Q8H PRN PRN Nausea 01/02/23 Unknown History pantoprazole 40 mg tablet,delayed 40 mg PO DAILY gerd 01/02/23 12/08/23 History release polyethylene glycol 3350 17 gram 17 g PO DAILY PRN constipation 01/02/23 Unknown History oral powder packet promethazine 12.5 mg tablet 12.5 mg PO Q8H PRN Nausea 01/02/23 07/15/23 History sennosides 8.6 mg-docusate sodium 1 tab-cap PO BID Constipation 01/02/23 07/16/23 History 50 mg capsule (Senna Plus) tacrolimus 1 mg capsule, 2 mg PO Q12H immunosuppressive 01/02/23 12/09/23 History immediate-release (Prograf) trazodone 50 mg tablet 150 mg PO QHS insomnia 01/02/23 12/08/23 History calcitriol 0.5 mcg capsule 1.25 mcg PO DAILY esrd 04/21/23 12/08/23 History gabapentin 100 mg capsule 200 mg PO BID PHANTOM PAIN 04/21/23 12/09/23 History sevelamer HCl 800 mg tablet 2,400 mg PO TIDCM ESRD 04/21/23 07/16/23 History levothyroxine 150 mcg tablet 150 mcg PO DAILY@0600 07/16/23 12/09/23 History hypothyroidism oxycodone 10 mg tablet 10 mg PO Q4H PRN pain 2 days #12 07/19/23 Unknown Rx tabs acetaminophen 650 mg rectal 650 mg [place] Q4H PRN fever or pain 08/06/23 Unknown History suppository glucagon 1 mg injection kit 1 mg subcut X1 PRN hypoglycemia 08/06/23 Unknown History magnesium hydroxide 400 mg/5 mL 30 ml PO DAILY PRN constipation 08/06/23 Unknown History oral suspension (Milk of Magnesia) ciclopirox 8 % topical solution 1 applic topical QHS nail fungus 11/17/23 Unknown History insulin lispro 100 unit/mL 9 unit subcut DAILY diabetes 11/17/23 Unknown History subcutaneous pen (Humalog KwikPen (U-100) Insulin) acetaminophen 500 mg tablet 1,000 mg PO TID pain or fever 12/06/23 12/09/23 History diphenhydramine-zinc acetate 2 1 applic topical Q6H PRN PRN 12/06/23 Unknown History %-0.1 % topical cream (Benadryl itching Extra Strength) ertapenem 1 gram solution for 0.5 g IV Q24 sacral osteomyeliti 12/12/23 Unknown Rx injection #23 ea oxycodone-acetaminophen 5 mg-325 1 tab PO BID PRN pain (scale score 12/12/23 Unknown Rx mg tablet (Percocet) 7-10) 7 days #10 tabs vancomycin 1,000 mg intravenous 750 mg IV .see below sacral 12/12/23 Unknown Rx injection osteomyelitis #23 ea escitalopram oxalate 10 mg tablet 15 mg PO QHS depression 12/30/23 Unknown History (Lexapro) Allergy/AdvReac Type Severity Reaction Status Date / Time No Known Allergies Allergy Verified 12/30/23 16:31 Family History Mother Hypertension Diabetes Father Hypertension Diabetes Surgical History History of kidney transplant S/P unilateral above knee amputation S/P foot surgery S/P colostomy Social History housing: longterm Smoking Status: Never smoker alcohol intake: never substance use type: does not use ROS Constitutional Constitutional: Reports fever(s), malaise and weakness; Denies chills Eyes Eyes: Denies blurry vision ENT HEENT: Denies abnormal hearing Cardiovascular Cardiovascular: Denies chest pain Respiratory/Chest Respiratory/Chest: Denies cough or excessive phlegm production Gastrointestinal Gastrointestinal: Denies abdominal pain Genitourinary Genitourinary: Reports other Musculoskeletal Musculoskeletal: Reports other Details: Bilateral shoulder pain Neurologic Neurologic: Denies abnormal speech Psychiatric Psychiatric: Denies anxiety Hematologic/Lymphatic Hematologic/Lymphatic: Reports anemia Physical Exam Const oriented x3 HEENT normocephalic and head/scalp atraumatic Eyes PERRL Neck no lymphadenopathy Resp normal respiratory effort Cardio regular rate, regular rhythm, S1 normal heart sound and S2 normal heart sound GI normal to inspection, nondistended, normoactive bowel sounds and soft to palpation Extremity Extremity Narrative: Lower extremity amputation Skin Skin Narrative: Left ischial tuberosity wound packed and dressed Neuro oriented x3 Sensorium / Orientation: awake, alert, oriented to person, oriented to place and oriented to time Psych affect normal Lab / Micro Data 12/30/23 14:42 12/30/23 14:42 Labs: Laboratory Results - last 24 hr 12/30/23 14:42: WBC 13.0 H, RBC 2.33 L, Hgb 6.9 L, Hct 22.3 L, MCV 95.7 H, MCH 29.6, MCHC 30.9 L, RDW Std Deviation 50.4 H, RDW Coeff of Shanta 14.5, Plt Count 244, MPV 9.8, Immature Gran % (Auto) 0.400, Neut % (Auto) 71.2 H, Lymph % (Auto) 12.7 L, [place] % (Auto) 12.4 H, Eos % (Auto) 2.8, Baso % (Auto) 0.5, Absolute Neuts (auto) 9.2 H, Absolute Lymphs (auto) 1.64, Nucleated RBC % 0, Differential Comment SEE COMMENT, Diff Path Review May foll, Platelet Estimate ADEQUATE, RBC Morphology N CHROM, Hypochromasia 1+, Anisocytosis RARE, Macrocytosis RARE, Ovalocytes RARE, PT 18.4 H, INR 1.5, APTT 48.2 H, Sodium 135 L, Potassium 3.9, Chloride 97 L, Carbon Dioxide 31.0, Anion Gap 7, BUN 43 H, Creatinine 7.58 H*, Estim Creat Clear Calc 12.48, Est GFR (MDRD) Af Amer 11 L, Est GFR (MDRD) Non-Af 9 L, BUN/Creatinine Ratio 5.7 L, Glucose 89, Calcium 9.3, Troponin I High Sens 16 12/30/23 16:37: POC Glucose 86 12/30/23 16:42: Blood Type AB NEGATIVE, Antibody Screen NEGATIVE, Crossmatch See Detail
--- NOTE | 2023-12-30 21:48 | NURSING ---
193- RN beside w/ patient finishing admission and doing assessment. Pt 100% on 8L simple mask and other vitals stable. While assessing, pt began to gasp for air and it did not seem that the patient was moving air, oxygen saturations stayed @ 100%. At this time this RN hit the staff assist button, Dr. Garcia, who was on the floor at this time, and charge nurse Gabriel Stevens to bedside. Suction set up, minimal oral secretions. Stridor like sounds continued to come from pt, Dr. Garcia directed to call an KITCHEN CLEANER. KITCHEN CLEANER called, Dr. Tori Burnett, Dr. Ca and Dr. Garcia to bedside along w/ L. Robinson RN, Devi Rodriguez RN and Tori Nicole RN. Pt assessed by all physicians. Lung sounds wheezy. At this time CXR and albuterol tx ordered by Dr. Garcia. pt sx's began to resolve before albuterol. Pt's oxygen saturations remaind in high 90's to 100 during all events. Instructed to continue to monitor.
[2023-12-30 22:11] LABS: Troponin-I HS 16 pg/mL (3.0-78.0)
--- NOTE | 2023-12-30 22:13 | NURSING ---
2211- RN bedside to do dysphagia screen. Pt drowsy and unable to remain completely alert to follow directions for test. Pt oriented x3. At thsi time, this RN held PM meds d/t safety reasons.
[2023-12-30 22:21] LABS: Lactic Acid 0.9 mmol/L (0.4-1.9)
--- NOTE | 2023-12-30 22:24 | CON.PCM.CC_ITS ---
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 During a wound dressing change patient was found to have copious amounts of blood in the wound area and was feeling lightheaded and dizzy. In the ED noted to have Hgb of 6.7 with more oozing of blood and was taken to surgery immediately where no large vessel hemorrhage was noted but patient was oozing from multiple sites. He underwent argon laser cauterization and packing along with 1U PRBC, 1U FFP and prothrombin complex to reverse his Eliquis anticoagulation. Patient was extubated following surgery and transferred to the ICU for closer monitoring and I was consulted for critical care management. Pt is currently receiving a second unit of PRBC and has received several liters fluid bolus but since ICU arrival patient has been steadily more hypotensive, now with MAPs in the 50s. 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 H/O deep venous thrombosis Chronic kidney disease with end stage renal failure on dialysis Osteomyelitis of pelvic region 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, stage 4 DM type 2, goal HbA1c < 7% Lives in prison Anxiety Open wound Insulin dependent diabetes mellitus Uses wheelchair Injury of back Community acquired MRSA infection Non-healing wound of amputation stump Hypomagnesemia Hyperosmolality and hypernatremia Neurogenic bowel Pericardial effusion (noninflammatory) SIRS (systemic inflammatory response syndrome) Pyrexia Hyperkalemia Pneumonia Kidney transplant failure Dependence on renal dialysis Pressure ulcer of left heel, unspecified stage Gastro-esophageal reflux disease without esophagitis Acute on chronic systolic (congestive) heart failure Other pericardial effusion (noninflammatory) Other pulmonary embolism without acute cor pulmonale Hypertensive heart and chronic kidney disease with heart failure and stage 1 through stage 4 chronic kidney disease, or unspecified chronic kidney disease Depression Hyperlipemia Hypothyroidism Anemia in chronic kidney disease Neuromuscular dysfunction of bladder, unspecified Paraplegia, incomplete Other acute osteomyelitis, left ankle and foot End stage renal disease Acute pulmonary edema Acute respiratory failure with hypoxia Home Medications ?Medication ?Instructions ?Recorded ?Last Taken ?Type acetaminophen 325 mg tablet 650 mg PO Q4H PRN PAIN/FEVER 01/02/23 04/21/23 History apixaban 5 mg tablet (Eliquis) 5 mg PO BID blood thinner 01/02/23 07/16/23 History ascorbic acid (vitamin C) 500 mg 500 mg PO QHS supplement 01/02/23 12/08/23 History tablet atorvastatin 40 mg tablet 40 mg PO QHS hypercholestremia 01/02/23 12/08/23 History bisacodyl 10 mg rectal suppository 10 mg SC DAILY PRN Constipation 01/02/23 Unknown History carvedilol 12.5 mg tablet 12.5 mg PO .BID CM HYPERTENSION 01/02/23 12/09/23 History clotrimazole-betamethasone 1 1 applic topical QHS rash 01/02/23 07/15/23 History %-0.05 % topical cream dextrose 40 % oral gel (Glucose 15 g PO Q15M PRN Hypoglycemia 01/02/23 Unknown History Gel) hydralazine 25 mg tablet 50 mg PO Q8 hypertension 01/02/23 12/09/23 History insulin glargine 100 unit/mL (3 11 unit subcut 1700 diabetes 01/02/23 12/08/23 History mL) subcutaneous pen (Lantus Solostar U-100 Insulin) insulin lispro 100 unit/mL 6 unit subcut QHS diabetes 01/02/23 07/16/23 History subcutaneous pen (Humalog KwikPen (U-100) Insulin) midodrine 10 mg tablet 10 mg PO MOTUTHFR DIALYSIS 01/02/23 12/09/23 History ondansetron HCl 4 mg tablet 4 mg PO Q8H PRN PRN Nausea 01/02/23 Unknown History pantoprazole 40 mg tablet,delayed 40 mg PO DAILY gerd 01/02/23 12/08/23 History release polyethylene glycol 3350 17 gram 17 g PO DAILY PRN constipation 01/02/23 Unknown History oral powder packet promethazine 12.5 mg tablet 12.5 mg PO Q8H PRN Nausea 01/02/23 07/15/23 History sennosides 8.6 mg-docusate sodium 1 tab-cap PO BID Constipation 01/02/23 07/16/23 History 50 mg capsule (Senna Plus) tacrolimus 1 mg capsule, 2 mg PO Q12H immunosuppressive 01/02/23 12/09/23 History immediate-release (Prograf) trazodone 50 mg tablet 150 mg PO QHS insomnia 01/02/23 12/08/23 History calcitriol 0.5 mcg capsule 1.25 mcg PO DAILY esrd 04/21/23 12/08/23 History gabapentin 100 mg capsule 200 mg PO BID PHANTOM PAIN 04/21/23 12/09/23 History sevelamer HCl 800 mg tablet 2,400 mg PO TIDCM ESRD 04/21/23 07/16/23 History levothyroxine 150 mcg tablet 150 mcg PO DAILY@0600 07/16/23 12/09/23 History hypothyroidism oxycodone 10 mg tablet 10 mg PO Q4H PRN pain 2 days #12 07/19/23 Unknown Rx tabs acetaminophen 650 mg rectal 650 mg SC Q4H PRN fever or pain 08/06/23 Unknown History suppository glucagon 1 mg injection kit 1 mg subcut X1 PRN hypoglycemia 08/06/23 Unknown History magnesium hydroxide 400 mg/5 mL 30 ml PO DAILY PRN constipation 08/06/23 Unknown History oral suspension (Milk of Magnesia) ciclopirox 8 % topical solution 1 applic topical QHS nail fungus 11/17/23 Unknown History insulin lispro 100 unit/mL 9 unit subcut DAILY diabetes 11/17/23 Unknown History subcutaneous pen (Humalog KwikPen (U-100) Insulin) acetaminophen 500 mg tablet 1,000 mg PO TID pain or fever 12/06/23 12/09/23 History diphenhydramine-zinc acetate 2 1 applic topical Q6H PRN PRN 12/06/23 Unknown History %-0.1 % topical cream (Benadryl itching Extra Strength) ertapenem 1 gram solution for 0.5 g IV Q24 sacral osteomyeliti 12/12/23 Unknown Rx injection #23 ea oxycodone-acetaminophen 5 mg-325 1 tab PO BID PRN pain (scale score 12/12/23 Unknown Rx mg tablet (Percocet) 7-10) 7 days #10 tabs vancomycin 1,000 mg intravenous 750 mg IV .see below sacral 12/12/23 Unknown Rx injection osteomyelitis #23 ea escitalopram oxalate 10 mg tablet 15 mg PO QHS depression 12/30/23 Unknown History (Lexapro) Allergy/AdvReac Type Severity Reaction Status Date / Time No Known Allergies Allergy Verified 12/30/23 16:31 Family History Mother Hypertension Diabetes Father Hypertension Diabetes Surgical History History of kidney transplant S/P unilateral above knee amputation S/P foot surgery S/P colostomy Social History housing: prison Smoking Status: Never smoker alcohol intake: never substance use type: does not use ROS Review of Systems ROS Unobtainable: due to encephalopathy and other Details: very hard of hearing Objective Data Objective Data Vital Signs: Vital Signs Last response 3 Temperature 36.7 C 12/30/23 22:05 Temperature Source Temporal 12/30/23 22:05 Pulse Rate 73 12/30/23 22:05 Pulse Strength Weak (1+) 12/30/23 20:59 Respiratory Rate 15 12/30/23 22:05 Respiratory Effort Normal, Non-Labored 12/30/23 20:00 Respiratory Depth Normal 12/30/23 20:00 Respiratory Pattern Bradypnea 12/30/23 20:00 Blood Pressure 78/45 L 12/30/23 22:05 Blood Pressure Mean 56 12/30/23 22:05 Blood Pressure Source Monitor 12/30/23 22:05 Blood Pressure Position Semi-Fowlers 12/30/23 22:05 Blood Pressure Location Right Arm 12/30/23 22:05 Pulse Ox 100 12/30/23 22:05 Oxygen Delivery Method Nasal Cannula 12/30/23 22:05 Oxygen Flow Rate (L/min) 3 12/30/23 22:05 I&O: I&O Last 24 Hours 3 12/29/23 12/30/23 12/30/23 23:59 11:59 23:59 Intake Total 2229 / 2230 Balance 223 / 2230 I&O: Total Stay 3 12/30/23 16:30 thru 12/30/23 20:25 Intake Total 2229 Balance 2229 Current Meds Ordered / Administered: Current meds ordered / Administered 3 Generic Name Dose Route Start Last Admin Trade Name Dami PRN Reason Stop Dose Admin Acetaminophen 650 mg 12/30/23 19:27 Acetaminophen 325 Mg Tablet PO Q4H PRN PRN Pain 1-10 or Fever Acetaminophen 650 mg 12/30/23 20:37 Acetaminophen 325 Mg Tablet PO Q4H PRN PRN PAIN 1-10/FEVER Acetaminophen 650 mg 12/30/23 20:37 Acetaminophen 650 Mg Suppository RC Q4H PRN PRN fever or pain 1-10 Ascorbic Acid 500 mg 12/30/23 22:00 12/30/23 22:12 Ascorbic Acid 500 Mg Tablet PO Not Given QHS TARUN Atorvastatin Calcium 40 mg 12/30/23 22:00 12/30/23 22:12 Atorvastatin Calcium 40 Mg Tablet PO Not Given QHS TARUN Bisacodyl 10 mg 12/30/23 20:37 Bisacodyl 10 Mg Suppository RC DAILY PRN Constipation Calcitriol 1.25 mcg 12/31/23 10:00 Calcitriol 0.25 Mcg Capsule PO DAILY TARUN Ertapenem 0.5 gm 12/31/23 10:00 Ertapenem Sod 1 Gm/10 Ml Vial IV Q24 TARUN Escitalopram Oxalate 15 mg 12/30/23 22:00 12/30/23 22:12 Escitalopram Oxalate 10 Mg Tablet PO Not Given QHS TARUN Gabapentin 200 mg 12/30/23 22:00 12/30/23 22:12 Gabapentin 100 Mg Capsule PO Not Given BID TARUN Sodium Chloride 1,000 mls @ 60 mls/hr 12/30/23 19:27 12/30/23 19:53 IV 60 mls/hr .[id number] TARUN Administration Pantoprazole Sodium 40 mg/ 110 mls @ 330 mls/hr 12/31/23 10:00 Sodium Chloride IV Q24 TARUN Sodium Chloride 250 mls @ 15 mls/hr 12/30/23 19:42 IV .[id number] PRN Additional IVPB Infusion Sodium Chloride 250 mls @ 15 mls/hr 12/30/23 19:42 IV .[id number] PRN Saline Flush Norepinephrine Bitartrate 8 mg 250 mls @ 9.375 mls/hr 12/30/23 21:45 / Sodium Chloride CONT INF .[id number] TARUN Protocol 5 MCG/MIN Insulin Glargine 11 unit 12/31/23 17:00 Insulin Glargine-Yfgn 100 Unit/Ml Pen SC 1700 [facility] Insulin Human Lispro 0 unit 12/30/23 22:00 Insulin Lispro 100 Unit/Ml Insuln.Pen SC ACHS [facility] Protocol Levothyroxine Sodium 150 mcg 12/31/23 06:00 Levothyroxine 150 Mcg Tablet PO DAILY@0600 [facility] Magnesium Hydroxide 30 ml 12/30/23 20:37 Magnesium Hydroxide 30 Ml Udc PO DAILY PRN constipation Midodrine 10 mg 12/31/23 10:00 Midodrine Hcl 5 Mg Tablet PO [id number]@1000 [facility] Morphine Sulfate 2 - 4 mg 12/30/23 19:27 Morphine 2 Mg/Ml Syringe IV Q2H PRN PRN Pain Score 4-10 Morphine Sulfate 2 - 4 mg 12/30/23 19:47 Morphine 4 Mg/Ml Syringe IV Q2H PRN PRN Pain Score 4-10 Ondansetron HCl 4 mg 12/30/23 19:27 Ondansetron 4 Mg/2 Ml Vial IV Q6H PRN PRN NAUSEA/VOMITING Ondansetron HCl 4 mg 12/30/23 20:37 Ondansetron Odt 4 Mg Tablet PO Q8H PRN PRN Nausea Oxycodone HCl 10 mg 12/30/23 20:37 Oxycodone 5 Mg Tablet PO Q4H PRN PRN pain 1-10 Pantoprazole Sodium 40 mg 12/31/23 10:00 Pantoprazole Sodium 40 Mg Tablet PO DAILY [facility] Sevelamer Carbonate 2,400 mg 12/31/23 08:00 Sevelamer Carbonate 800 Mg Tablet PO TIDCM [facility] Sodium Chloride 10 - 40 ml 12/30/23 19:27 0.9% Saline Lock 10 Ml Syringe IV UD PRN SALINE FLUSH Sodium Chloride 10 - 40 ml 12/30/23 19:27 0.9% Saline Lock 10 Ml Syringe IV UD PRN SALINE FLUSH Sodium Chloride 10 - 40 ml 12/30/23 19:42 0.9% Saline Lock 10 Ml Syringe IV UD PRN SALINE FLUSH Tacrolimus 2 mg 12/30/23 22:00 12/30/23 22:12 Tacrolimus Anhydrous 1 Mg Capsule PO Not Given Q12 [facility] Trazodone HCl 150 mg 12/30/23 22:00 12/30/23 22:12 Trazodone 50 Mg Tablet PO Not Given QHS [facility] Vancomycin HCl 750 mg 12/30/23 21:00 Vancomycin Iv 1,000 Mg/20 Ml Vial IV .see below [facility] Physical Exam Narrative General: Well developed, obese male; no acute distress HEENT: anicteric Sclera, nl nose; supple neck, no masses Cardiovascular: Regular Rate and Rhythm; No murmurs, rubs, gallops; no displaced PMI Respiratory: diminished; no crackles, wheezes, or rhonchi Abdominal: Non-tender; Non distended; hypoBS x 4; No Hepatosplenomegaly Extremities: Warm; wound packed and dressed C/D/I, No clubbing, cyanosis Neurological: lethargic and very hard of hearing; +paralegic Lab / Micro Data 12/30/23 14:42 12/30/23 14:42 Labs: Laboratory Results - last 24 hr 12/30/23 14:42: WBC 13.0 H, RBC 2.33 L, Hgb 6.9 L, Hct 22.3 L, MCV 95.7 H, MCH 29.6, MCHC 30.9 L, RDW Std Deviation 50.4 H, RDW Coeff of Shanta 14.5, Plt Count 244, MPV 9.8, Immature Gran % (Auto) 0.400, Neut % (Auto) 71.2 H, Lymph % (Auto) 12.7 L, [place] % (Auto) 12.4 H, Eos % (Auto) 2.8, Baso % (Auto) 0.5, Absolute Neuts (auto) 9.2 H, Absolute Lymphs (auto) 1.64, Nucleated RBC % 0, Differential Comment SEE COMMENT, Diff Path Review May foll, Platelet Estimate ADEQUATE, RBC Morphology N CHROM, Hypochromasia 1+, Anisocytosis RARE, Macrocytosis RARE, Ovalocytes RARE, PT 18.4 H, INR 1.5, APTT 48.2 H, Sodium 135 L, Potassium 3.9, C hloride 97 L, Carbon Dioxide 31.0, Anion Gap 7, BUN 43 H, Creatinine 7.58 H*, Estim Creat Clear Calc 12.48, Est GFR (MDRD) Af Amer 11 L, Est GFR (MDRD) Non-Af 9 L, BUN/Creatinine Ratio 5.7 L, Glucose 89, Calcium 9.3, Troponin I High Sens 16 12/30/23 16:37: POC Glucose 86 12/30/23 16:42: Blood Type AB NEGATIVE, Antibody Screen NEGATIVE, Crossmatch See Detail 12/30/23 21:45: Lactic Acid 0.9, Troponin I High Sens 16 Imaging Radiology Impression Chest X-Ray 12/30/23 19:45 IMPRESSION: Cardiomegaly without radiographic evidence of acute cardiopulmonary disease. Electronically Signed: Michel Stinson MD at 21:07 EDT , Assessment and Plan . 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
[2023-12-30] MEDS: Norepinephrine 8 MG in 0.9% Normal Saline (250mL Bag) 242 ML 9.4 MG CONT INF (22:27)
[2023-12-30 22:50] LABS: Bedside Glucose 99 mg/dL (74-106)
[2023-12-30] MEDS: 0.9% Saline Lock 10 ML Syringe IV (23:08)
[2023-12-31] VITALS (23 sets, daily range): BP systolic 95–133; BP diastolic 51–77; PULSE 58–95; RESP 12–20; TEMP 36.5–36.6; O2SAT 94–100
[2023-12-31] MEDS: Acetaminophen 325 MG Tablet 650 MG PO (05:40)
[2023-12-31 07:08] LABS: Anion Gap 10 (5-15); BUN 46 mg/dL (7-18); BUN/Creat Ratio 5.8 RATIO (10-20); Calcium,Total 8.5 mg/dL (8.5-10.1); Chloride 99 mmol/L (98-107); Creatinine, Serum 7.87 mg/dL (0.70-1.30); EST Glomerular Filtration Rate 8 mL/min (>60); Est Glom Filt Rate - Afr Amer 10 mL/min (>60); Glucose 108 mg/dL (74-106); Potassium 4.6 mmol/L (3.5-5.1); Sodium Level 136 mmol/L (136-145)
[2023-12-31 07:11] LABS: Bedside Glucose 106 mg/dL (74-106)
--- NOTE | 2023-12-31 07:31 | PN.SURG_ITS ---
Subjective Subjective The patient had no further issues overnight. He is still on low-dose pressors. Objective Data Objective Data Vital Signs: Vital Signs Temp Pulse Resp BP Pulse Ox O2 Del Method O2 Flow Rate 97.2 F L 88 15 131/71 H 100 Nasal Cannula 2 12/30/23 23:12 12/31/23 07:00 12/31/23 07:00 12/31/23 07:00 12/31/23 07:00 12/31/23 07:00 12/31/23 07:00 Oxygen Flow Rate (L/min) 2 Oxygen Delivery Method Nasal Cannula Weight: 307 lb 15.772 oz Body Mass Index (BMI) 41.7 Intake & Output: Intake and Output for Last 24 Hours 12/29/23 12/30/23 12/31/23 23:59 23:59 23:59 Intake Total 2241.81 / 2243.69 54.38 / 54.38 Output Total Balance 2231.81 / 2233.69 54.38 / 54.38 Lab / Micro Data 12/30/23 14:42 12/30/23 14:42 Labs: Laboratory Results - last 24 hr 12/30/23 14:42: WBC 13.0 H, RBC 2.33 L, Hgb 6.9 L, Hct 22.3 L, MCV 95.7 H, MCH 29.6, MCHC 30.9 L, RDW Std Deviation 50.4 H, RDW Coeff of Shanta 14.5, Plt Count 244, MPV 9.8, Immature Gran % (Auto) 0.400, Neut % (Auto) 71.2 H, Lymph % (Auto) 12.7 L, [place] % (Auto) 12.4 H, Eos % (Auto) 2.8, Baso % (Auto) 0.5, Absolute Neuts (auto) 9.2 H, Absolute Lymphs (auto) 1.64, Nucleated RBC % 0, Differential Comment SEE COMMENT, Diff Path Review May foll, Platelet Estimate ADEQUATE, RBC Morphology N CHROM, Hypochromasia 1+, Anisocytosis RARE, Macrocytosis RARE, Ovalocytes RARE, PT 18.4 H, INR 1.5, APTT 48.2 H, Sodium 135 L, Potassium 3.9, C hloride 97 L, Carbon Dioxide 31.0, Anion Gap 7, BUN 43 H, Creatinine 7.58 H*, Estim Creat Clear Calc 12.48, Est GFR (MDRD) Af Amer 11 L, Est GFR (MDRD) Non-Af 9 L, BUN/Creatinine Ratio 5.7 L, Glucose 89, Calcium 9.3, Troponin I High Sens 16 12/30/23 16:37: POC Glucose 86 12/30/23 16:42: Blood Type AB NEGATIVE, Antibody Screen NEGATIVE, Crossmatch See Detail 12/30/23 20:02: POC Glucose 106 12/30/23 21:45: Lactic Acid 0.9, Troponin I High Sens 16 12/30/23 22:21: POC Glucose 99 Radiography Diagnostic Testing: Radiology Impression Chest X-Ray 12/30/23 19:45 IMPRESSION: Cardiomegaly without radiographic evidence of acute cardiopulmonary disease. Electronically Signed: Michel Stinson MD at 21:07 EDT Reading Location ID and State: [facility] / [place] Tel , Service support , Physical Exam Const oriented x3 and no apparent distress Resp normal respiratory effort GI soft to palpation and non-tender Assessment & Plan Assessment/Plan (1) Post-op bleeding: PLAN: The patient had bleeding from his sacral wound. I changed his dressing this morning and there is no further bleeding. Recommend changing packing twice a day. Patient is still on low-dose Levophed and this is being weaned down. I will advance him to a regular diet as I do not believe he will need further surgery. Continue to hold Eliquis. Hemoglobin seems stable although low. Recheck later today. Nephrology was consulted for his dialysis. Hospitalist service is managing his medication and his diabetes. Infectious disease was consulted also for his antibiotic management. Hopeful for discharge from the unit when hemodynamically stable. Humberto Garcia MD Pager: [facility] [address] [place] [address], [address] [place] [address] Office:
[2023-12-31] MEDS: Levothyroxine 150 MCG Tablet PO (07:34)
--- NOTE | 2023-12-31 07:34 | PCM.PN.INT ---
Assessment & Plan Assessment/Plan (1) Anemia due to acute blood loss: PLAN: Plan RECOMMENDATIONS: 1. Continue to wean Levophed as tolerated. 2. Continue local wound care. 3. Dietary advancement per general surgery. 4. Transfuse if hemoglobin drops below 7 g/dL. IMPRESSIONS: 1. Acute hemorrhagic shock Secondary to bleeding decubitus ulcer in the setting of systemic anticoagulation. The patient underwent irrigation and washout of the left ischial wound with packing on December 29 and has stabilized from a clinical perspective. Blood counts are improved following transfusion of blood products. Recommend continuing to wean Levophed to maintain a mean arterial pressure at or above 65 mmHg. Transfuse if hemoglobin drops below 7 g/dL. Continue local wound care. 2. History of pulmonary embolism/diabetes mellitus/end-stage renal disease on hemodialysis/suspected VITO/hypothyroidism Complicates care, management, recovery and prognosis. Continue home medications as indicated. TIME: 31 minutes of critical care time, independent of procedures, was spent addressing the patient's hemorrhagic shock secondary to bleeding decubitus ulcer, review of all data and collaboration with the care team. Subjective Subjective The patient was seen and examined at the bedside this morning. Events from the last 24 hours have been reviewed. The patient is currently afebrile maintaining appropriate oxygen saturations on 2 L/min via nasal cannula. The patient bhakti on low-dose Levophed at 4 mcg/min to maintain hemodynamic stability. Objective Data Objective Data The patient's most recent lab work, culture data and imaging studies have all been personally reviewed. Vital Signs: Vital Signs Temp Pulse Resp BP Pulse Ox O2 Del Method O2 Flow Rate 97.2 F L 88 15 131/71 H 100 Nasal Cannula 2 12/30/23 23:12 12/31/23 07:00 12/31/23 07:00 12/31/23 07:00 12/31/23 07:00 12/31/23 07:00 12/31/23 07:00 Oxygen Flow Rate (L/min) 2 Oxygen Delivery Method Nasal Cannula Weight: 307 lb 15.772 oz Body Mass Index (BMI) 41.7 Intake & Output: Intake and Output for Last 24 Hours 12/29/23 12/30/23 12/31/23 23:59 23:59 23:59 Intake Total 2241.81 / 2243.69 54.38 / 54.38 Output Total Balance 2231.81 / 2233.69 54.38 / 54.38 Lab / Micro Data Attestation: I reviewed the patient's lab results. 12/30/23 14:42 12/31/23 05:07 Labs: Laboratory Results - last 24 hr 12/30/23 14:42: WBC 13.0 H, RBC 2.33 L, Hgb 6.9 L, Hct 22.3 L, MCV 95.7 H, MCH 29.6, MCHC 30.9 L, RDW Std Deviation 50.4 H, RDW Coeff of Shanta 14.5, Plt Count 244, MPV 9.8, Immature Gran % (Auto) 0.400, Neut % (Auto) 71.2 H, Lymph % (Auto) 12.7 L, [place] % (Auto) 12.4 H, Eos % (Auto) 2.8, Baso % (Auto) 0.5, Absolute Neuts (auto) 9.2 H, Absolute Lymphs (auto) 1.64, Nucleated RBC % 0, Differential Comment SEE COMMENT, Diff Path Review May foll, Platelet Estimate ADEQUATE, RBC Morphology N CHROM, Hypochromasia 1+, Anisocytosis RARE, Macrocytosis RARE, Ovalocytes RARE, PT 18.4 H, INR 1.5, APTT 48.2 H, Sodium 135 L, Potassium 3.9, Chloride 97 L, Carbon Dioxide 31.0, Anion Gap 7, BUN 43 H, Creatinine 7.58 H*, Estim Creat Clear Calc 12.48, Est GFR (MDRD) Af Amer 11 L, Est GFR (MDRD) Non-Af 9 L, BUN/Creatinine Ratio 5.7 L, Glucose 89, Calcium 9.3, Troponin I High Sens 16 12/30/23 16:37: POC Glucose 86 12/30/23 16:42: Blood Type AB NEGATIVE, Antibody Screen NEGATIVE, Crossmatch See Detail 12/30/23 20:02: POC Glucose 106 12/30/23 21:45: Lactic Acid 0.9, Troponin I High Sens 16 12/30/23 22:21: POC Glucose 99 Radiography Diagnostic Testing: Radiology Impression Chest X-Ray 12/30/23 19:45 IMPRESSION: Cardiomegaly without radiographic evidence of acute cardiopulmonary disease. Electronically Signed: Michel Stinson MD at 21:07 EDT , Physical Exam Const alert and no apparent distress Constitutional Narrative: Morbidly obese. General Appearance: cooperative HEENT normocephalic and head/scalp atraumatic Eyes PERRL, EOMs intact bilaterally and conjunctivae normal Neck supple General: trachea midline Chest inspection of chest normal Resp normal respiratory effort Auscultation: Negative for rales, rhonchi or wheezes Cardio regular rate and regular rhythm GI normal to inspection, nondistended, normoactive bowel sounds Extremity General Extremity: amputation Neuro oriented x3 and CN's II-XII intact bilaterally Psych cooperative Charges/Coding Procedures Hospitalists Procedures: 22263 Critical Care 1st Hr
[2023-12-31] MEDS: SEVELAMER CARBONATE 800 MG TABLET 2400 MG PO ×3 (08:32→15:22)
[2023-12-31] MEDS: Calcitriol 0.25 MCG Capsule 1.25 MCG PO (08:33)
[2023-12-31] MEDS: Tacrolimus Anhydrous 1 MG Capsule 2 MG PO ×2 (08:33→21:09)
[2023-12-31] MEDS: Midodrine HCl 5 MG Tablet 10 MG PO (08:34)
[2023-12-31] MEDS: Pantoprazole Sodium 40 MG in 0.9% Normal Saline (100mL MB+) 100 ML 330 MG IV (08:39)
[2023-12-31] MEDS: Gabapentin 100 MG Capsule 200 MG PO ×2 (08:40→21:09)
[2023-12-31] MEDS: oxyCODONE 5 MG Tablet 10 MG PO (08:40)
[2023-12-31] MEDS: Ondansetron 4 MG/2 ML Vial IV (09:43)
--- NOTE | 2023-12-31 10:45 | PCM.CONS.R ---
Assessment & Plan Assessment/Plan (1) End stage renal disease: PLAN: Plan ESRD. On hemodialysis at the intermediate 4 times a week. Received full dialysis treatment yesterday. while here we will place him on 3 times a week schedule. Today potassium is okay. Breathing looks comfortable on nasal cannula. Blood pressure is borderline, just came off Levophed this morning. No acute indications for dialysis today. We will plan for hemodialysis tomorrow. HPI Consult Data Date of Consult: 12/31/23 HPI Narrative Reason for Consultation: ESRD HPI Narrative: CHINA GUILLEN, is a 38 M who presents to the hospital with bleeding from open wounds. Nephrology on consultation in view of ESRD. On hemodialysis at the intermediate Saturday, Saturday, , Saturday. Has longstanding wounds. Apparently started bleeding at the time of dressing changes, was sent to the ER. S/p surgery. Hemoglobin has stabilized. Currently alert, awake. On low-dose Levophed this morning, currently off. [facility] Medical History Anemia in chronic kidney disease, on chronic dialysis retirement (current) use of 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 H/O deep venous thrombosis Chronic kidney disease with end stage renal failure on dialysis Osteomyelitis of pelvic region 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, stage 4 DM type 2, goal HbA1c < 7% Lives in intermediate Anxiety Open wound Insulin dependent diabetes mellitus Uses wheelchair Injury of back Community acquired MRSA infection Non-healing wound of amputation stump Hypomagnesemia Hyperosmolality and hypernatremia Neurogenic bowel Pericardial effusion (noninflammatory) SIRS (systemic inflammatory response syndrome) Pyrexia Hyperkalemia Pneumonia Kidney transplant failure Dependence on renal dialysis Pressure ulcer of left heel, unspecified stage Gastro-esophageal reflux disease without esophagitis Acute on chronic systolic (congestive) heart failure Other pericardial effusion (noninflammatory) Other pulmonary embolism without acute cor pulmonale Hypertensive heart and chronic kidney disease with heart failure and stage 1 through stage 4 chronic kidney disease, or unspecified chronic kidney disease Depression Hyperlipemia Hypothyroidism Anemia in chronic kidney disease Neuromuscular dysfunction of bladder, unspecified Paraplegia, incomplete Other acute osteomyelitis, left ankle and foot End stage renal disease Acute pulmonary edema Acute respiratory failure with hypoxia Home Medications ?Medication ?Instructions ?Recorded ?Last Taken ?Type acetaminophen 325 mg tablet 650 mg PO Q4H PRN PAIN/FEVER 01/02/23 04/21/23 History apixaban 5 mg tablet (Eliquis) 5 mg PO BID blood thinner 01/02/23 07/16/23 History ascorbic acid (vitamin C) 500 mg 500 mg PO QHS supplement 01/02/23 12/08/23 History tablet atorvastatin 40 mg tablet 40 mg PO QHS hypercholestremia 01/02/23 12/08/23 History bisacodyl 10 mg rectal suppository 10 mg DE DAILY PRN Constipation 01/02/23 Unknown History carvedilol 12.5 mg tablet 12.5 mg PO .BID CM HYPERTENSION 01/02/23 12/09/23 History clotrimazole-betamethasone 1 1 applic topical QHS rash 01/02/23 07/15/23 History %-0.05 % topical cream dextrose 40 % oral gel (Glucose 15 g PO Q15M PRN Hypoglycemia 01/02/23 Unknown History Gel) hydralazine 25 mg tablet 50 mg PO Q8 hypertension 01/02/23 12/09/23 History insulin glargine 100 unit/mL (3 11 unit subcut 1700 diabetes 01/02/23 12/08/23 History mL) subcutaneous pen (Lantus Solostar U-100 Insulin) insulin lispro 100 unit/mL 6 unit subcut QHS diabetes 01/02/23 07/16/23 History subcutaneous pen (Humalog KwikPen (U-100) Insulin) midodrine 10 mg tablet 10 mg PO MOTUTHFR DIALYSIS 01/02/23 12/09/23 History ondansetron HCl 4 mg tablet 4 mg PO Q8H PRN PRN Nausea 01/02/23 Unknown History pantoprazole 40 mg tablet,delayed 40 mg PO DAILY gerd 01/02/23 12/08/23 History release polyethylene glycol 3350 17 gram 17 g PO DAILY PRN constipation 01/02/23 Unknown History oral powder packet promethazine 12.5 mg tablet 12.5 mg PO Q8H PRN Nausea 01/02/23 07/15/23 History sennosides 8.6 mg-docusate sodium 1 tab-cap PO BID Constipation 01/02/23 07/16/23 History 50 mg capsule (Senna Plus) tacrolimus 1 mg capsule, 2 mg PO Q12H immunosuppressive 01/02/23 12/09/23 History immediate-release (Prograf) trazodone 50 mg tablet 150 mg PO QHS insomnia 01/02/23 12/08/23 History calcitriol 0.5 mcg capsule 1.25 mcg PO DAILY esrd 04/21/23 12/08/23 History gabapentin 100 mg capsule 200 mg PO BID PHANTOM PAIN 04/21/23 12/09/23 History sevelamer HCl 800 mg tablet 2,400 mg PO TIDCM ESRD 04/21/23 07/16/23 History levothyroxine 150 mcg tablet 150 mcg PO DAILY@0600 07/16/23 12/09/23 History hypothyroidism oxycodone 10 mg tablet 10 mg PO Q4H PRN pain 2 days #12 07/19/23 Unknown Rx tabs acetaminophen 650 mg rectal 650 mg DE Q4H PRN fever or pain 08/06/23 Unknown History suppository glucagon 1 mg injection kit 1 mg subcut X1 PRN hypoglycemia 08/06/23 Unknown History magnesium hydroxide 400 mg/5 mL 30 ml PO DAILY PRN constipation 08/06/23 Unknown History oral suspension (Milk of MagnRateElert) ciclopirox 8 % topical solution 1 applic topical QHS nail fungus 11/17/23 Unknown History insulin lispro 100 unit/mL 9 unit subcut DAILY diabetes 11/17/23 Unknown History subcutaneous pen (Humalog KwikPen (U-100) Insulin) acetaminophen 500 mg tablet 1,000 mg PO TID pain or fever 12/06/23 12/09/23 History diphenhydramine-zinc acetate 2 1 applic topical Q6H PRN PRN 12/06/23 Unknown History %-0.1 % topical cream (Benadryl itching Extra Strength) ertapenem 1 gram solution for 0.5 g IV Q24 sacral osteomyeliti 12/12/23 Unknown Rx injection #23 ea oxycodone-acetaminophen 5 mg-325 1 tab PO BID PRN pain (scale score 12/12/23 Unknown Rx mg tablet (Percocet) 7-10) 7 days #10 tabs vancomycin 1,000 mg intravenous 750 mg IV .see below sacral 12/12/23 Unknown Rx injection osteomyelitis #23 ea escitalopram oxalate 10 mg tablet 15 mg PO QHS depression 12/30/23 Unknown History (Lexapro) Allergy/AdvReac Type Severity Reaction Status Date / Time No Known Allergies Allergy Verified 12/30/23 16:31 Family History Mother Hypertension Diabetes Father Hypertension Diabetes Surgical History History of kidney transplant S/P unilateral above knee amputation S/P foot surgery S/P colostomy Social History housing: intermediate Smoking Status: Never smoker alcohol intake: never substance use type: does not use ROS ROS Narrative Negative except above. Physical Exam Narrative Alert awake oriented x 3 no obvious distress no pallor no icterus no JVD s1s2 no murmurs lungs clear abdomen soft no organomegaly Lab / Micro Data 12/30/23 14:42 12/31/23 05:07 Labs: Laboratory Results - last 24 hr 12/30/23 14:42: WBC 13.0 H, RBC 2.33 L, Hgb 6.9 L, Hct 22.3 L, MCV 95.7 H, MCH 29.6, MCHC 30.9 L, RDW Std Deviation 50.4 H, RDW Coeff of Shanta 14.5, Plt Count 244, MPV 9.8, Immature Gran % (Auto) 0.400, Neut % (Auto) 71.2 H, Lymph % (Auto) 12.7 L, [place] % (Auto) 12.4 H, Eos % (Auto) 2.8, Baso % (Auto) 0.5, Absolute Neuts (auto) 9.2 H, Absolute Lymphs (auto) 1.64, Nucleated RBC % 0, Differential Comment SEE COMMENT, Diff Path Review May foll, Platelet Estimate ADEQUATE, RBC Morphology N CHROM, Hypochromasia 1+, Anisocytosis RARE, Macrocytosis RARE, Ovalocytes RARE, PT 18.4 H, INR 1.5, APTT 48.2 H, Sodium 135 L, Potassium 3.9, Chloride 97 L, Carbon Dioxide 31.0, Anion Gap 7, BUN 43 H, Creatinine 7.58 H*, Estim Creat Clear Calc 12.48, Est GFR (MDRD) Af Amer 11 L, Est GFR (MDRD) Non-Af 9 L, BUN/Creatinine Ratio 5.7 L, Glucose 89, Calcium 9.3, Troponin I High Sens 16 12/30/23 16:37: POC Glucose 86 12/30/23 16:42: Blood Type AB NEGATIVE, Antibody Screen NEGATIVE, Crossmatch See Detail 12/30/23 20:02: POC Glucose 106 12/30/23 21:45: Lactic Acid 0.9, Troponin I High Sens 16 12/30/23 22:21: POC Glucose 99 12/31/23 05:07: Sodium 136, Potassium 4.6, Chloride 99, Carbon Dioxide 27.0, Anion Gap 10, BUN 46 H, Creatinine 7.87 H*, Estim Creat Clear Calc 18.80, Est GFR (MDRD) Af Amer 10 L, Est GFR (MDRD) Non-Af 8 L, BUN/Creatinine Ratio 5.8 L, Glucose 108 H, Calcium 8.5 Imaging Radiology Impression Chest X-Ray 12/30/23 19:45 IMPRESSION: Cardiomegaly without radiographic evidence of acute cardiopulmonary disease. Electronically Signed: Michel Stinson MD at 21:07 EDT ,
[2023-12-31 11:09] LABS: White Blood Count 17.3 K/mm3 (4.4-11.0)
[2023-12-31 11:10] LABS: Basophil% 0.6 % (0-1); Eosinophils% 1.2 % (0-5); Hematocrit 23.7 % (40-54); Hemoglobin 7.3 g/dL (13.0-16.5); Lymphocyte % 10.2 % (19-41); Mean Corp Hgb Conc 30.8 g/dL (32-36); Mean Corpuscular Hgb 29.2 pg (27.0-32.0); Mean Corpuscular Volume 94.8 fL (80-94); Mean Platelet Vol. 9.9 fl (6.2-12.0); Monocyte% 9.3 % (0-10); Neutrophil % 78.3 % (47-70); Platelet Count 244 K/mm3 (150-450); RBC Distribution Width CV 15.8 % (11.6-14.6); RBC Distribution Width SD 53.9 fl (35.1-43.9)
[2023-12-31 11:11] LABS: Absolute Lymphocyte Count 1.76 X10^3/uL (0.83-4.51); Absolute Neutrophil Count 13.6 X10^3/uL (2.0-7.7); Basophil# 0.11 X10^3/uL; Eosinophil# 0.21 X10^3/uL; Lymphocyte # 1.76 X10^3/ul (0.83-4.51); Monocyte# 1.61 X10^3/uL; Neutrophil # 13.57 X10^3/uL (2.7-7.7)
[2023-12-31 11:12] LABS: Differential Indicated SCAN CRITERIA MET
[2023-12-31 11:16] LABS: Reactive Lymphocyte 1+
[2023-12-31 11:18] LABS: Hematocrit 24.3 % (40-54); Hemoglobin 7.4 g/dL (13.0-16.5); Mean Corp Hgb Conc 30.5 g/dL (32-36); Mean Corpuscular Hgb 29.2 pg (27.0-32.0); Mean Platelet Vol. 10.3 fl (6.2-12.0); Platelet Count 231 K/mm3 (150-450); RBC Distribution Width CV 15.7 % (11.6-14.6); RBC Distribution Width SD 55.8 fl (35.1-43.9); Red Blood Count 2.53 M/mm3 (4.6-6.2); White Blood Count 17.4 K/mm3 (4.4-11.0)
[2023-12-31 11:19] LABS: Absolute Neutrophil Count 13.8 X10^3/uL (2.0-7.7); Basophil% 0.5 % (0-1); Differential Indicated SCAN CRITERIA MET; Eosinophils% 1.2 % (0-5); Lymphocyte # 1.58 X10^3/ul (0.83-4.51); Lymphocyte % 9.1 % (19-41); Monocyte# 1.65 X10^3/uL; Monocyte% 9.5 % (0-10); Neutrophil # 13.76 X10^3/uL (2.7-7.7); Neutrophil % 79.2 % (47-70)
[2023-12-31 12:12] LABS: Bedside Glucose 96 mg/dL (74-106)
[2023-12-31] MEDS: 0.9% Normal Saline (1000mL) 1,000 ML 60 ML IV (12:26)
--- NOTE | 2023-12-31 12:36 | CASEMGMT ---
Patient is from [facility]. SW met with patient and confirmed his plan is to return to [facility]. Patient denies any need for a list of other SNF's. SW to follow for d/c back to [facility]. Naina HERRERA
--- NOTE | 2023-12-31 12:39 | PCM.PN.HOSP ---
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 Went directly to the OR, had irrigation washout of the wound with packing done. Was then placed in the ICU after the procedure. Remained stable overnight. Saw patient at bedside this morning. Patient was fatigued appearing but otherwise sitting up comfortably in bed and in no acute distress. His blood pressure was normotensive on multiple recent checks and his heart rate was stable in normal sinus rhythm in the 80s. Patient denied any acute pain or discomfort in the buttock region this morning. He otherwise was feeling well, denied any other concerns morning. Objective Data Objective Data Vital Signs: Vital Signs Temp Pulse Resp BP Pulse Ox O2 Del Method O2 Flow Rate 97.2 F L 84 14 131/77 H 100 Nasal Cannula 2 12/30/23 23:12 12/31/23 11:00 12/31/23 11:00 12/31/23 11:00 12/31/23 11:00 12/31/23 11:00 12/31/23 11:00 Oxygen Flow Rate (L/min) 2 Oxygen Delivery Method Nasal Cannula Weight: 139.7 kg Body Mass Index (BMI) 41.7 Intake & Output: Intake and Output for Last 24 Hours 12/29/23 12/30/23 12/31/23 23:59 23:59 23:59 Intake Total 2241.81 / 2243.69 1170.51 / 1170.51 Output Total 10 100 / 100 Balance 2231.81 / 2233.69 1070.51 / 1070.51 Lab / Micro Data 12/31/23 05:07 12/31/23 05:07 Labs: Laboratory Results - last 24 hr 12/30/23 14:42: WBC 13.0 H, RBC 2.33 L, Hgb 6.9 L, Hct 22.3 L, MCV 95.7 H, MCH 29.6, MCHC 30.9 L, RDW Std Deviation 50.4 H, RDW Coeff of Shanta 14.5, Plt Count 244, MPV 9.8, Immature Gran % (Auto) 0.400, Neut % (Auto) 71.2 H, Lymph % (Auto) 12.7 L, [place] % (Auto) 12.4 H, Eos % (Auto) 2.8, Baso % (Auto) 0.5, Absolute Neuts (auto) 9.2 H, Absolute Lymphs (auto) 1.64, Nucleated RBC % 0, Differential Comment SEE COMMENT, Diff Path Review May foll, Platelet Estimate ADEQUATE, RBC Morphology N CHROM, Hypochromasia 1+, Anisocytosis RARE, Macrocytosis RARE, Ovalocytes RARE, PT 18.4 H, INR 1.5, APTT 48.2 H, Sodium 135 L, Potassium 3.9, Chloride 97 L, Carbon Dioxide 31.0, Anion Gap 7, BUN 43 H, Creatinine 7.58 H*, Estim Creat Clear Calc 12.48, Est GFR (MDRD) Af Amer 11 L, Est GFR (MDRD) Non-Af 9 L, BUN/Creatinine Ratio 5.7 L, Glucose 89, Calcium 9.3, Troponin I High Sens 16 12/30/23 16:37: POC Glucose 86 12/30/23 16:42: Blood Type AB NEGATIVE, Antibody Screen NEGATIVE, Crossmatch See Detail 12/30/23 20:02: POC Glucose 106 12/30/23 21:45: Lactic Acid 0.9, Troponin I High Sens 16 12/30/23 22:21: POC Glucose 99 12/31/23 00:10: WBC 17.4 H, RBC 2.53 L, Hgb 7.4 L, Hct 24.3 L, MCV 96.0 H, MCH 29.2, MCHC 30.5 L, RDW Std Deviation 55.8 H, RDW Coeff of Shanta 15.7 H, Plt Count 231, MPV 10.3, Immature Gran % (Auto) 0.500, Neut % (Auto) 79.2 H, Lymph % (Auto) 9.1 L, [place] % (Auto) 9.5, Eos % (Auto) 1.2, Baso % (Auto) 0.5, Absolute Neuts (auto) 13.8 H, Absolute Lymphs (auto) 1.60, Differential Comment , Diff Path Review November foll 12/31/23 05:07: WBC 17.3 H, RBC 2.50 L, Hgb 7.3 L, Hct 23.7 L, MCV 94.8 H, MCH 29.2, MCHC 30.8 L, RDW Std Deviation 53.9 H, RDW Coeff of Shanta 15.8 H, Plt Count 244, MPV 9.9, Immature Gran % (Auto) 0.400, Neut % (Auto) 78.3 H, Lymph % (Auto) 10.2 L, [place] % (Auto) 9.3, Eos % (Auto) 1.2, Baso % (Auto) 0.6, Absolute Neuts (auto) 13.6 H, Absolute Lymphs (auto) 1.76, Total Counted Not Reportable, Differential Comment COMMENT, Diff Path Review November, Reactive Lymphocytes 1+, Sodium 136, Potassium 4.6, Chloride 99, Carbon Dioxide 27.0, Anion Gap 10, BUN 46 H, Creatinine 7.87 H*, Estim Creat Clear Calc 18.80, Est GFR (MDRD) Af Amer 10 L, Est GFR (MDRD) Non-Af 8 L, BUN/Creatinine Ratio 5.8 L, Glucose 108 H, Calcium 8.5 12/31/23 11:55: POC Glucose 96 Radiography Diagnostic Testing: Radiology Impression Chest X-Ray 12/30/23 19:45 IMPRESSION: Cardiomegaly without radiographic evidence of acute cardiopulmonary disease. Electronically Signed: Michel Stinson MD at 21:07 EDT , Physical Exam Const alert and no apparent distress Constitutional Narrative: Younger male, morbidly obese, chronically ill-appearing, mildly fatigued appearing, otherwise sitting up comfortably bed, conversing normally, in no acute distress. General Appearance: cooperative and comfortable HEENT normocephalic, head/scalp atraumatic, nasal mucous membranes and turbinates normal and moist oral mucous membranes Eyes PERRL, EOMs intact bilaterally and conjunctivae normal Neck full ROM Chest inspection of chest normal Resp normal respiratory effort, normal air movement, no use of accessory muscles and clear to auscultation bilaterally Cardio regular rate, regular rhythm, no murmurs and peripheral pulses 2+ throughout GI normal to inspection, nondistended, normoactive bowel sounds, soft to palpation, non-tender and non-distended Back/Spine normal ROM Extremity Extremity Narrative: Left leg amputation noted. Skin Skin Narrative: Left ischial tuberosity wound packed and covered. Assessment & Plan Assessment/Plan (1) Anemia due to acute blood loss: (2) Osteomyelitis of pelvic region: (3) Open wound of left buttock without complication: QUALIFIERS: Encounter type: initial encounter Qualified Code(s): S31.829A - Unspecified open wound of left buttock, initial encounter (4) Acute hypotension: PLAN: Plan Patient is a 38-year-old male who presented to [facility] ED on 12/30/2023 for a bleeding decubitus ulcer. Admitted to the general surgery service, medicine consulted for medical management. 1. Acute blood loss anemia with hypotension secondary to acute bleed from severe chronic left ischial tuberosity wound with osteomyelitis, improved; history of anemia of chronic disease ? General surgery primary. ID following. Wound care following. Had known osteomyelitis of pelvic region with wound, s/p I&D down to bone on 12/[address] Villagran. Wound cultures grew Proteus and Enterococcus. Was started on IV vancomycin and ertapenem with plan for 6 weeks of IV antibiotics dosed with HD, along with daily labs. Per ID, will continue with this plan. S/p wound irrigation and washout with packing on 12/29. Hemoglobin 6.9 on admit, down from 7.9 four days earlier; baseline appears to be around 8-9. S/p 2 units of packed red blood cells on admit. Hemoglobin 7.4 postoperatively and remained stable at 7.3 on morning of 12/30. Wound appears stable, no active bleeding. Monitor daily CBC. 2. ESRD on HD ? Nephrology following. HD per nephrology recommendations. Continue home calcitriol and sevelamer. 3. Type 2 diabetes mellitus ? Home regimen of Lantus 11 units at night and Humalog 9 units with morning meal and 6 units with evening meal. Continue home Lantus 11 units at night and sliding scale insulin with meals for now, adjust as needed. 4. Hypertension ? Holding home Coreg and hydralazine for now. 5. History of VTE on Eliquis ? Holding home Eliquis for now. Chronic medical conditions: ? Morbid obesity: BMI 41 on admit. Complicates hospital course, care and prognosis. ? Hyperlipidemia: Continue home statin. ? Depression/insomnia: Stable. Continue home escitalopram and trazodone at night. ? GERD: Continue home PPI. ? S/p LLE amputation with phantom pain: Continue home gabapentin. ? Hypothyroidism: Continue home Synthroid. Total clinical time spent by myself addressing the patient's medical issues, reviewing all the data, and collaborating with patient's care team: 35 minutes. Charges/Coding Visit Charges Inpatient E&M: 49857 Subs Hosp L2
[2023-12-31 13:44] LABS: Pathologist Review Reviewed
--- NOTE | 2023-12-31 15:11 | CON.PCM.ID_ITS ---
Assessment & Plan Assessment/Plan (1) End-stage renal disease on hemodialysis: (2) Osteomyelitis of pelvic region: PLAN: Taken to OR 12/09/[address] Villagran for I&D down to bone. Surg cx with proteus, enterococcus. Cont vanc and ertapenem, plan is still for 6 weeks iv abx dosed with HD (MTTF at [facility]) with weekly labs and stop date 01/20/24. Will follow, thank you HPI Consult Data Date of Consult: 12/31/23 HPI Narrative Reason for Consultation: osteo HPI Narrative: CHINA GUILLEN, is a 38 M with ESRD, h/o failed kidney transplant, DM, incomplete paraplegia, chronic decub ulcer, admitted earlier this month with pelvic osteo. Had surgical I&D done. Discharged on vanc and ertapenem dosed with HD. Admitted now 12/29 with uncontrolled bleeding from L ischial wound. Taken to OR 12/[address] Garcia. Feeling ok, remains in icu, no fever. Full ROS performed and neg except as noted above. [facility] Medical History Anemia in chronic kidney disease, on chronic dialysis skilled nursing (current) use of 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 H/O deep venous thrombosis Chronic kidney disease with end stage renal failure on dialysis Osteomyelitis of pelvic region 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, stage 4 DM type 2, goal HbA1c < 7% Lives in care home Anxiety Open wound Insulin dependent diabetes mellitus Uses wheelchair Injury of back Community acquired MRSA infection Non-healing wound of amputation stump Hypomagnesemia Hyperosmolality and hypernatremia Neurogenic bowel Pericardial effusion (noninflammatory) SIRS (systemic inflammatory response syndrome) Pyrexia Hyperkalemia Pneumonia Kidney transplant failure Dependence on renal dialysis Pressure ulcer of left heel, unspecified stage Gastro-esophageal reflux disease without esophagitis Acute on chronic systolic (congestive) heart failure Other pericardial effusion (noninflammatory) Other pulmonary embolism without acute cor pulmonale Hypertensive heart and chronic kidney disease with heart failure and stage 1 through stage 4 chronic kidney disease, or unspecified chronic kidney disease Depression Hyperlipemia Hypothyroidism Anemia in chronic kidney disease Neuromuscular dysfunction of bladder, unspecified Paraplegia, incomplete Other acute osteomyelitis, left ankle and foot End stage renal disease Acute pulmonary edema Acute respiratory failure with hypoxia Home Medications ?Medication ?Instructions ?Recorded ?Last Taken ?Type acetaminophen 325 mg tablet 650 mg PO Q4H PRN PAIN/FEVER 01/02/23 04/21/23 History apixaban 5 mg tablet (Eliquis) 5 mg PO BID blood thinner 01/02/23 07/16/23 History ascorbic acid (vitamin C) 500 mg 500 mg PO QHS supplement 01/02/23 12/08/23 History tablet atorvastatin 40 mg tablet 40 mg PO QHS hypercholestremia 01/02/23 12/08/23 History bisacodyl 10 mg rectal suppository 10 mg AZ DAILY PRN Constipation 01/02/23 Unknown History carvedilol 12.5 mg tablet 12.5 mg PO .BID CM HYPERTENSION 01/02/23 12/09/23 History clotrimazole-betamethasone 1 1 applic topical QHS rash 01/02/23 07/15/23 History %-0.05 % topical cream dextrose 40 % oral gel (Glucose 15 g PO Q15M PRN Hypoglycemia 01/02/23 Unknown History Gel) hydralazine 25 mg tablet 50 mg PO Q8 hypertension 01/02/23 12/09/23 History insulin glargine 100 unit/mL (3 11 unit subcut 1700 diabetes 01/02/23 12/08/23 History mL) subcutaneous pen (Lantus Solostar U-100 Insulin) insulin lispro 100 unit/mL 6 unit subcut QHS diabetes 01/02/23 07/16/23 History subcutaneous pen (Humalog KwikPen (U-100) Insulin) midodrine 10 mg tablet 10 mg PO MOTUTHFR DIALYSIS 01/02/23 12/09/23 History ondansetron HCl 4 mg tablet 4 mg PO Q8H PRN PRN Nausea 01/02/23 Unknown History pantoprazole 40 mg tablet,delayed 40 mg PO DAILY gerd 01/02/23 12/08/23 History release polyethylene glycol 3350 17 gram 17 g PO DAILY PRN constipation 01/02/23 Unknown History oral powder packet promethazine 12.5 mg tablet 12.5 mg PO Q8H PRN Nausea 01/02/23 07/15/23 History sennosides 8.6 mg-docusate sodium 1 tab-cap PO BID Constipation 01/02/23 07/16/23 History 50 mg capsule (Senna Plus) tacrolimus 1 mg capsule, 2 mg PO Q12H immunosuppressive 01/02/23 12/09/23 History immediate-release (Prograf) trazodone 50 mg tablet 150 mg PO QHS insomnia 01/02/23 12/08/23 History calcitriol 0.5 mcg capsule 1.25 mcg PO DAILY esrd 04/21/23 12/08/23 History gabapentin 100 mg capsule 200 mg PO BID PHANTOM PAIN 04/21/23 12/09/23 History sevelamer HCl 800 mg tablet 2,400 mg PO TIDCM ESRD 04/21/23 07/16/23 History levothyroxine 150 mcg tablet 150 mcg PO DAILY@0600 07/16/23 12/09/23 History hypothyroidism oxycodone 10 mg tablet 10 mg PO Q4H PRN pain 2 days #12 07/19/23 Unknown Rx tabs acetaminophen 650 mg rectal 650 mg AZ Q4H PRN fever or pain 08/06/23 Unknown History suppository glucagon 1 mg injection kit 1 mg subcut X1 PRN hypoglycemia 08/06/23 Unknown History magnesium hydroxide 400 mg/5 mL 30 ml PO DAILY PRN constipation 08/06/23 Unknown History oral suspension (Milk of MagnOpinionLab) ciclopirox 8 % topical solution 1 applic topical QHS nail fungus 11/17/23 Unknown History insulin lispro 100 unit/mL 9 unit subcut DAILY diabetes 11/17/23 Unknown History subcutaneous pen (Humalog KwikPen (U-100) Insulin) acetaminophen 500 mg tablet 1,000 mg PO TID pain or fever 12/06/23 12/09/23 History diphenhydramine-zinc acetate 2 1 applic topical Q6H PRN PRN 12/06/23 Unknown History %-0.1 % topical cream (Benadryl itching Extra Strength) ertapenem 1 gram solution for 0.5 g IV Q24 sacral osteomyeliti 12/12/23 Unknown Rx injection #23 ea oxycodone-acetaminophen 5 mg-325 1 tab PO BID PRN pain (scale score 12/12/23 Unknown Rx mg tablet (Percocet) 7-10) 7 days #10 tabs vancomycin 1,000 mg intravenous 750 mg IV .see below sacral 12/12/23 Unknown Rx injection osteomyelitis #23 ea escitalopram oxalate 10 mg tablet 15 mg PO QHS depression 12/30/23 Unknown History (Lexapro) Allergy/AdvReac Type Severity Reaction Status Date / Time No Known Allergies Allergy Verified 12/30/23 16:31 Family History Mother Hypertension Diabetes Father Hypertension Diabetes Surgical History History of kidney transplant S/P unilateral above knee amputation S/P foot surgery S/P colostomy Social History housing: care home Smoking Status: Never smoker alcohol intake: never substance use type: does not use Physical Exam Const alert and no apparent distress General Appearance: cooperative HEENT normocephalic and head/scalp atraumatic Eyes PERRL and EOMs intact bilaterally Neck supple and No nodes Resp normal air movement and clear to auscultation bilaterally Cardio regular rate and regular rhythm GI soft to palpation, non-tender and non-distended Extremity General Extremity: edema Skin Skin Narrative: surg dressing in place Neuro CN's II-XII intact bilaterally Lab / Micro Data Attestation: I reviewed the patient's lab results. 12/31/23 05:07 12/31/23 05:07 Labs: Laboratory Results - last 24 hr 12/30/23 14:42: WBC 13.0 H, RBC 2.33 L, Hgb 6.9 L, Hct 22.3 L, MCV 95.7 H, MCH 29.6, MCHC 30.9 L, RDW Std Deviation 50.4 H, RDW Coeff of Shanta 14.5, Plt Count 244, MPV 9.8, Immature Gran % (Auto) 0.400, Neut % (Auto) 71.2 H, Lymph % (Auto) 12.7 L, [place] % (Auto) 12.4 H, Eos % (Auto) 2.8, Baso % (Auto) 0.5, Absolute Neuts (auto) 9.2 H, Absolute Lymphs (auto) 1.64, Nucleated RBC % 0, Differential Comment SEE COMMENT, Diff Path Review Reviewed, Platelet Estimate ADEQUATE, RBC Morphology N CHROM, Hypochromasia 1+, Anisocytosis RARE, Macrocytosis RARE, Ovalocytes RARE, PT 18.4 H, INR 1.5, APTT 48.2 H, Sodium 135 L, Potassium 3.9, C hloride 97 L, Carbon Dioxide 31.0, Anion Gap 7, BUN 43 H, Creatinine 7.58 H*, Estim Creat Clear Calc 12.48, Est GFR (MDRD) Af Amer 11 L, Est GFR (MDRD) Non-Af 9 L, BUN/Creatinine Ratio 5.7 L, Glucose 89, Calcium 9.3, Troponin I High Sens 16 12/30/23 16:37: POC Glucose 86 12/30/23 16:42: Blood Type AB NEGATIVE, Antibody Screen NEGATIVE, Crossmatch See Detail 12/30/23 20:02: POC Glucose 106 12/30/23 21:45: Lactic Acid 0.9, Troponin I High Sens 16 12/30/23 22:21: POC Glucose 99 12/31/23 00:10: WBC 17.4 H, RBC 2.53 L, Hgb 7.4 L, Hct 24.3 L, MCV 96.0 H, MCH 29.2, MCHC 30.5 L, RDW Std Deviation 55.8 H, RDW Coeff of Shanta 15.7 H, Plt Count 231, MPV 10.3, Immature Gran % (Auto) 0.500, Neut % (Auto) 79.2 H, Lymph % (Auto) 9.1 L, [place] % (Auto) 9.5, Eos % (Auto) 1.2, Baso % (Auto) 0.5, Absolute Neuts (auto) 13.8 H, Absolute Lymphs (auto) 1.60, Differential Comment , Diff Path Review November12/31/23 05:07: WBC 17.3 H, RBC 2.50 L, Hgb 7.3 L, Hct 23.7 L, MCV 94.8 H, MCH 29.2, MCHC 30.8 L, RDW Std Deviation 53.9 H, RDW Coeff of Shanta 15.8 H, Plt Count 244, MPV 9.9, Immature Gran % (Auto) 0.400, Neut % (Auto) 78.3 H, Lymph % (Auto) 10.2 L, [place] % (Auto) 9.3, Eos % (Auto) 1.2, Baso % (Auto) 0.6, Absolute Neuts (auto) 13.6 H, Absolute Lymphs (auto) 1.76, Total Counted Not Reportable, Differential Comment COMMENT, Diff Path Review May foll, Reactive Lymphocytes 1+, Sodium 136, Potassium 4.6, Chloride 99, Carbon Dioxide 27.0, Anion Gap 10, B UN 46 H, Creatinine 7.87 H*, Estim Creat Clear Calc 18.80, Est GFR (MDRD) Af Amer 10 L, Est GFR (MDRD) Non-Af 8 L, BUN/Creatinine Ratio 5.8 L, Glucose 108 H, Calcium 8.5 12/31/23 11:55: POC Glucose 96 Imaging Radiology Impression Chest X-Ray 12/30/23 19:45 IMPRESSION: Cardiomegaly without radiographic evidence of acute cardiopulmonary disease. Electronically Signed: Michel Stisnon MD at 21:07 EDT ,
[2023-12-31] MEDS: Insulin Glargine-YFGN 100 UNIT/ML Pen 11 UNIT SC (15:21)
[2023-12-31 15:44] LABS: Bedside Glucose 122 mg/dL (74-106)
[2023-12-31] MEDS: traZODone 50 MG Tablet 150 MG PO (21:10)
[2023-12-31] MEDS: Atorvastatin Calcium 40 MG Tablet PO (21:10)
[2023-12-31] MEDS: Ascorbic Acid 500 MG Tablet PO (21:10)
[2023-12-31] MEDS: Escitalopram Oxalate 10 MG Tablet 15 MG PO (21:10)
[2023-12-31] MEDS: Morphine 2 MG/ML Syringe IV (21:25)
[2023-12-31 21:38] LABS: Bedside Glucose 123 mg/dL (74-106)
[2024-01-01] VITALS (36 sets, daily range): BP systolic 97–257; BP diastolic 58–95; PULSE 79–96; RESP 9–22; TEMP 36.4–37.1; O2SAT 96–100; BMI 42.3; BMI 43.3; BMI 43.0
[2024-01-01] MEDS: 0.9% Normal Saline (1000mL) 1,000 ML 60 ML IV ×2 (04:56→23:52)
[2024-01-01] MEDS: 0.9% Saline Lock 10 ML Syringe IV ×2 (04:56→14:52)
[2024-01-01] MEDS: Morphine 2 MG/ML Syringe IV (04:56)
[2024-01-01] MEDS: Levothyroxine 150 MCG Tablet PO (04:58)
[2024-01-01 05:57] LABS: Anion Gap 10 (5-15); BUN 54 mg/dL (7-18); Calcium,Total 8.4 mg/dL (8.5-10.1); Chloride 103 mmol/L (98-107); Creatinine, Serum 8.98 mg/dL (0.70-1.30); EST Glomerular Filtration Rate 7 mL/min (>60); Est Glom Filt Rate - Afr Amer 9 mL/min (>60); Estimated Creatinine Clearance 16.59 ml/min; Glucose 91 mg/dL (74-106); Potassium 5.8 mmol/L (3.5-5.1); Sodium Level 136 mmol/L (136-145)
[2024-01-01 06:04] LABS: Absolute Lymphocyte Count 1.84 X10^3/uL (0.83-4.51); Absolute Neutrophil Count 9.8 X10^3/uL (2.0-7.7); Basophil# 0.05 X10^3/uL; Basophil% 0.4 % (0-1); Eosinophil# 0.21 X10^3/uL; Eosinophils% 1.6 % (0-5); Hematocrit 20.7 % (40-54); Hemoglobin 6.3 g/dL (13.0-16.5); Lymphocyte # 1.84 X10^3/ul (0.83-4.51); Lymphocyte % 13.8 % (19-41); Mean Corp Hgb Conc 30.4 g/dL (32-36); Mean Corpuscular Hgb 29.2 pg (27.0-32.0); Mean Corpuscular Volume 95.8 fL (80-94); Mean Platelet Vol. 10.6 fl (6.2-12.0); Monocyte# 1.37 X10^3/uL; Monocyte% 10.3 % (0-10); NRBC Flagged by Analyzer 0 % (0-5); Neutrophil # 9.79 X10^3/uL (2.7-7.7); Neutrophil % 73.4 % (47-70); Platelet Count 237 K/mm3 (150-450); RBC Distribution Width CV 15.6 % (11.6-14.6); RBC Distribution Width SD 54.4 fl (35.1-43.9); Red Blood Count 2.16 M/mm3 (4.6-6.2); White Blood Count 13.3 K/mm3 (4.4-11.0)
--- NOTE | 2024-01-01 08:01 | PCM.PN.SRG ---
Subjective Subjective The patient seems to be doing well. He says he is tolerating a diet and pain is well-controlled. Objective Data Objective Data Vital Signs: Vital Signs Temp Pulse Resp BP Pulse Ox O2 Del Method O2 Flow Rate 98.1 F 86 20 H 116/60 100 Nasal Cannula 2 01/01/24 07:39 01/01/24 07:39 01/01/24 07:39 01/01/24 07:39 01/01/24 07:39 01/01/24 07:39 01/01/24 07:39 Oxygen Flow Rate (L/min) 2 Oxygen Delivery Method Nasal Cannula Weight: 320 lb Body Mass Index (BMI) 43.3 Intake & Output: Intake and Output for Last 24 Hours 12/30/23 12/31/23 01/01/24 23:59 23:59 23:59 Intake Total 2241.81 / 2243.69 1170.51 / 1170.51 990 / 990 Output Total 250 / 250 0 / 0 Balance 2231.81 / 2233.69 920.51 / 920.51 990 / 990 Lab / Micro Data 01/01/24 05:55 01/01/24 04:50 Labs: Laboratory Results - last 24 hr 12/30/23 14:42: Diff Path Review Reviewed 12/31/23 00:10: WBC 17.4 H, RBC 2.53 L, Hgb 7.4 L, Hct 24.3 L, MCV 96.0 H, MCH 29.2, MCHC 30.5 L, RDW Std Deviation 55.8 H, RDW Coeff of Shanta 15.7 H, Plt Count 231, MPV 10.3, Immature Gran % (Auto) 0.500, Neut % (Auto) 79.2 H, Lymph % (Auto) 9.1 L, [place] % (Auto) 9.5, Eos % (Auto) 1.2, Baso % (Auto) 0.5, Absolute Neuts (auto) 13.8 H, Absolute Lymphs (auto) 1.60, Differential Comment , Diff Path Review November12/31/23 05:07: WBC 17.3 H, RBC 2.50 L, Hgb 7.3 L, Hct 23.7 L, MCV 94.8 H, MCH 29.2, MCHC 30.8 L, RDW Std Deviation 53.9 H, RDW Coeff of Shanta 15.8 H, Plt Count 244, MPV 9.9, Immature Gran % (Auto) 0.400, Neut % (Auto) 78.3 H, Lymph % (Auto) 10.2 L, [place] % (Auto) 9.3, Eos % (Auto) 1.2, Baso % (Auto) 0.6, Absolute Neuts (auto) 13.6 H, Absolute Lymphs (auto) 1.76, Total Counted Not Reportable, Differential Comment COMMENT, Diff Path Review May foll, Reactive Lymphocytes 1+, Sodium 136, Potassium 4.6, Chloride 99, Carbon Dioxide 27.0, Anion Gap 10, BUN 46 H, Creatinine 7.87 H*, Estim Creat Clear Calc 18.80, Est GFR (MDRD) Af Amer 10 L, Est GFR (MDRD) Non-Af 8 L, BUN/Creatinine Ratio 5.8 L, Glucose 108 H, Calcium 8.5 12/31/23 11:55: POC Glucose 96 12/31/23 15:20: POC Glucose 122 H 12/31/23 21:03: POC Glucose 123 H 01/01/24 04:50: WBC Cancelled, Corrected WBC Cancelled, RBC Cancelled, Hgb Cancelled, Hct Cancelled, MCV Cancelled, MCH Cancelled, MCHC Cancelled, RDW Std Deviation Cancelled, RDW Coeff of Shanta Cancelled, Plt Count Cancelled, MPV Cancelled, Immature Gran % (Auto) Cancelled, Neut % (Auto) Cancelled, Lymph % (Auto) Cancelled, [place] % (Auto) Cancelled, Eos % (Auto) Cancelled, Baso % (Auto) Cancelled, Absolute Neuts (auto) Cancelled, Absolute Lymphs (auto) Cancelled, Total Counted Cancelled, Neutrophils % (Manual) Cancelled, Band Neutrophils % Cancelled, Lymphocytes % (Manual) Cancelled, Monocytes % (Manual) Cancelled, Eosinophils % (Manual) Cancelled, Basophils % (Manual) Cancelled, Metamyelocytes % Cancelled, Myelocytes % Cancelled, Promyelocytes % Cancelled, Blast Cells % Cancelled, Plasma Cell % (Manual) Cancelled, Other Cells % Cancelled, Nucleated RBC % Cancelled, Nucleated RBCs/100 WBC Cancelled, Differential Comment Cancelled, Diff Path Review Cancelled, Hypersegmented Neuts Cancelled, Atypical Lymphocytes Cancelled, Reactive Lymphocytes Cancelled, Smudge Cells Cancelled, Toxic Granulation Cancelled, Toxic Vacuolation Cancelled, Dohle Bodies Cancelled, Janel Rods Cancelled, Platelet Estimate Cancelled, Plt Morphology Comment Cancelled, RBC Morphology Cancelled 01/01/24 04:50: RBC Morphology Cancelled, Polychromasia Cancelled, Hypochromasia Cancelled, Basophilic Stippling Cancelled, Anisocytosis Cancelled, Microcytosis Cancelled, Macrocytosis Cancelled, Spherocytes Cancelled, Sickle Cells Cancelled, Target Cells Cancelled, Tear Drop Cells Cancelled, Ovalocytes Cancelled, Stomatocytes Cancelled, [place] Bodies Cancelled, [place] Cells Cancelled, Bite Cells Cancelled, Crenated Cell Cancelled, Acanthocytes (Spur) Cancelled, Rouleaux Cancelled, Schistocytes Cancelled, Sodium 136, Potassium 5.8 H, Chloride 103, Carbon Dioxide 23.0, Anion Gap 10, BUN 54 H, Creatinine 8.98 H*, Estim Creat Clear Calc 16.59, Est GFR (MDRD) Af Amer 9 L, Est GFR (MDRD) Non-Af 7 L, BUN/Creatinine Ratio 6.0 L, Glucose 91, Calcium 8.4 L 01/01/24 05:55: WBC 13.3 H, RBC 2.16 L, Hgb 6.3 L, Hct 20.7 L, MCV 95.8 H, MCH 29.2, MCHC 30.4 L, RDW Std Deviation 54.4 H, RDW Coeff of Shanta 15.6 H, Plt Count 237, MPV 10.6, Immature Gran % (Auto) 0.500, Neut % (Auto) 73.4 H, Lymph % (Auto) 13.8 L, [place] % (Auto) 10.3 H, Eos % (Auto) 1.6, Baso % (Auto) 0.4, Absolute Neuts (auto) 9.8 H, Absolute Lymphs (auto) 1.84, Nucleated RBC % 0 Physical Exam Const oriented x3 Resp normal respiratory effort GI soft to palpation and non-tender Assessment & Plan Assessment/Plan (1) Anemia due to acute blood loss: PLAN: The patient has hemoglobin of 6.3 this morning. I am ordering 2 units of blood. Patient is about to be dialyzed this morning. They will give the blood during dialysis. Repeat hemoglobin tomorrow. No signs of bleeding. I changed the patient's packing in the wound base is dry clean with no bleeding or oozing or sign of infection. As long as he tolerates dialysis and transfusion well he could probably moved to the floor today and possibly back to the correction tomorrow or the next day. Humberto Garcia MD Pager: [facility] [address] [place] [phone] [place] [address] Office:
[2024-01-01] MEDS: PureFlow B 2K Dialysis Soln 1 BAG 6 BAG PF (08:16)
[2024-01-01] MEDS: 0.9% Normal Saline 1,000 ML IV.SOLN. 1000 ML OPERA.SITE (08:16)
[2024-01-01 08:19] LABS: Bedside Glucose 86 mg/dL (74-106)
[2024-01-01] MEDS: Pantoprazole Sodium 40 MG in 0.9% Normal Saline (100mL MB+) 100 ML 330 MG IV (08:22)
[2024-01-01] MEDS: SEVELAMER CARBONATE 800 MG TABLET 2400 MG PO ×3 (08:23→17:01)
[2024-01-01] MEDS: Calcitriol 0.25 MCG Capsule 1.25 MCG PO (08:23)
[2024-01-01] MEDS: Tacrolimus Anhydrous 1 MG Capsule 2 MG PO ×2 (08:24→21:42)
[2024-01-01] MEDS: Gabapentin 100 MG Capsule 200 MG PO ×2 (08:27→21:42)
--- NOTE | 2024-01-01 09:11 | PCM.PN.INT ---
Assessment & Plan Assessment/Plan (1) Anemia due to acute blood loss: PLAN: Plan RECOMMENDATIONS: 1. Continue antimicrobials per ID recommendations. 2. Check H&H posttransfusion. 3. Continue local wound care. 4. PPI therapy as ordered. 5. Dialysis support per nephrology recommendations. 6. The patient is medically stable for transfer out of the intensive care unit. Will sign off from a critical care perspective. IMPRESSIONS: 1. Acute hemorrhagic shock Improved. Secondary to bleeding decubitus ulcer in the setting of systemic anticoagulation. The patient underwent irrigation and washout of the left ischial wound with packing on December 29 and has stabilized from a clinical perspective. Although the patient's hemoglobin did drop this morning, there are no active sources of blood loss readily identifiable. Plan to transfuse blood products as ordered. The patient remains otherwise hemodynamically stable. Continue local wound care, along with scheduled PPI therapy. 2. History of pulmonary embolism/diabetes mellitus/end-stage renal disease on hemodialysis/suspected VITO/hypothyroidism Complicates care, management, recovery and prognosis. Continue home medications as indicated. This note was generated with [employer] dictation software. It may contain incorrect words, spelling, and punctuation that were not noted in checking the note before signing. Subjective Subjective The patient was seen and examined at the bedside this morning. Events from the last 24 hours have been reviewed. The patient is currently afebrile, hemodynamically stable and maintaining appropriate oxygen saturations on 2 L/min via nasal cannula. No overnight issues were identified by the nursing staff. Although the patient's hemoglobin did drop to 6.3 g/dL, there are no overt signs of active blood loss. He is currently being dialyzed and will be transfused blood products as ordered. The patient is otherwise clinically stable. Objective Data Objective Data The patient's most recent lab work, culture data and imaging studies have all been personally reviewed. Vital Signs: Vital Signs Temp Pulse Resp BP Pulse Ox O2 Del Method O2 Flow Rate 97.6 F L 91 12 133/68 H 100 Nasal Cannula 2 01/01/24 08:00 01/01/24 09:05 01/01/24 09:05 01/01/24 09:05 01/01/24 09:05 01/01/24 09:05 01/01/24 09:05 Oxygen Flow Rate (L/min) 2 Oxygen Delivery Method Nasal Cannula Weight: 320 lb Body Mass Index (BMI) 43.3 Intake & Output: Intake and Output for Last 24 Hours 12/30/23 12/31/23 01/01/24 23:59 23:59 23:59 Intake Total 2241.81 / 2243.69 1170.51 / 1170.51 990 / 990 Output Total 250 / 250 20 / Balance 2231.81 / 2233.69 920.51 / 920.51 970 / 970 Lab / Micro Data Attestation: I reviewed the patient's lab results. 01/01/24 05:55 01/01/24 04:50 Labs: Laboratory Results - last 24 hr 12/30/23 14:42: Diff Path Review Reviewed 12/30/23 16:42: Crossmatch See Detail 12/31/23 00:10: WBC 17.4 H, RBC 2.53 L, Hgb 7.4 L, Hct 24.3 L, MCV 96.0 H, MCH 29.2, MCHC 30.5 L, RDW Std Deviation 55.8 H, RDW Coeff of Shanta 15.7 H, Plt Count 231, MPV 10.3, Immature Gran % (Auto) 0.500, Neut % (Auto) 79.2 H, Lymph % (Auto) 9.1 L, [place] % (Auto) 9.5, Eos % (Auto) 1.2, Baso % (Auto) 0.5, Absolute Neuts (auto) 13.8 H, Absolute Lymphs (auto) 1.60, Differential Comment , Diff Path Review November12/31/23 05:07: WBC 17.3 H, RBC 2.50 L, Hgb 7.3 L, Hct 23.7 L, MCV 94.8 H, MCH 29.2, MCHC 30.8 L, RDW Std Deviation 53.9 H, RDW Coeff of Shanta 15.8 H, Plt Count 244, MPV 9.9, Immature Gran % (Auto) 0.400, Neut % (Auto) 78.3 H, Lymph % (Auto) 10.2 L, [place] % (Auto) 9.3, Eos % (Auto) 1.2, Baso % (Auto) 0.6, Absolute Neuts (auto) 13.6 H, Absolute Lymphs (auto) 1.76, Total Counted Not Reportable, Differential Comment COMMENT, Diff Path Review May foll, Reactive Lymphocytes 1+, Sodium 136, Potassium 4.6, Chloride 99, Carbon Dioxide 27.0, Anion Gap 10, BUN 46 H, Creatinine 7.87 H*, Estim Creat Clear Calc 18.80, Est GFR (MDRD) Af Amer 10 L, Est GFR (MDRD) Non-Af 8 L, BUN/Creatinine Ratio 5.8 L, Glucose 108 H, Calcium 8.5 12/31/23 11:55: POC Glucose 96 12/31/23 15:20: POC Glucose 122 H 12/31/23 21:03: POC Glucose 123 H 01/01/24 04:50: WBC Cancelled, Corrected WBC Cancelled, RBC Cancelled, Hgb Cancelled, Hct Cancelled, MCV Cancelled, MCH Cancelled, MCHC Cancelled, RDW Std Deviation Cancelled, RDW Coeff of Shanta Cancelled, Plt Count Cancelled, MPV Cancelled, Immature Gran % (Auto) Cancelled, Neut % (Auto) Cancelled, Lymph % (Auto) Cancelled, [place] % (Auto) Cancelled, Eos % (Auto) Cancelled, Baso % (Auto) Cancelled, Absolute Neuts (auto) Cancelled, Absolute Lymphs (auto) Cancelled, Total Counted Cancelled, Neutrophils % (Manual) Cancelled, Band Neutrophils % Cancelled, Lymphocytes % (Manual) Cancelled, Monocytes % (Manual) Cancelled, Eosinophils % (Manual) Cancelled, Basophils % (Manual) Cancelled, Metamyelocytes % Cancelled, Myelocytes % Cancelled, Promyelocytes % Cancelled, Blast Cells % Cancelled, Plasma Cell % (Manual) Cancelled, Other Cells % Cancelled, Nucleated RBC % Cancelled, Nucleated RBCs/100 WBC Cancelled, Differential Comment Cancelled, Diff Path Review Cancelled, Hypersegmented Neuts Cancelled, Atypical Lymphocytes Cancelled, Reactive Lymphocytes Cancelled, Smudge Cells Cancelled, Toxic Granulation Cancelled, Toxic Vacuolation Cancelled, Dohle Bodies Cancelled, Janel Rods Cancelled, Platelet Estimate Cancelled, Plt Morphology Comment Cancelled, RBC Morphology Cancelled 01/01/24 04:50: RBC Morphology Cancelled, Polychromasia Cancelled, Hypochromasia Cancelled, Basophilic Stippling Cancelled, Anisocytosis Cancelled, Microcytosis Cancelled, Macrocytosis Cancelled, Spherocytes Cancelled, Sickle Cells Cancelled, Target Cells Cancelled, Tear Drop Cells Cancelled, Ovalocytes Cancelled, Stomatocytes Cancelled, [place] Bodies Cancelled, [place] Cells Cancelled, Bite Cells Cancelled, Crenated Cell Cancelled, Acanthocytes (Spur) Cancelled, Rouleaux Cancelled, Schistocytes Cancelled, Sodium 136, Potassium 5.8 H, Chloride 103, Carbon Dioxide 23.0, Anion Gap 10, BUN 54 H, Creatinine 8.98 H*, Estim Creat Clear Calc 16.59, Est GFR (MDRD) Af Amer 9 L, Est GFR (MDRD) Non-Af 7 L, BUN/Creatinine Ratio 6.0 L, Glucose 91, Calcium 8.4 L 01/01/24 05:55: WBC 13.3 H, RBC 2.16 L, Hgb 6.3 L, Hct 20.7 L, MCV 95.8 H, MCH 29.2, MCHC 30.4 L, RDW Std Deviation 54.4 H, RDW Coeff of Shanta 15.6 H, Plt Count 237, MPV 10.6, Immature Gran % (Auto) 0.500, Neut % (Auto) 73.4 H, Lymph % (Auto) 13.8 L, [place] % (Auto) 10.3 H, Eos % (Auto) 1.6, Baso % (Auto) 0.4, Absolute Neuts (auto) 9.8 H, Absolute Lymphs (auto) 1.84, Nucleated RBC % 0 01/01/24 08:02: POC Glucose 86 Physical Exam Const alert and no apparent distress Constitutional Narrative: Morbidly obese. General Appearance: cooperative HEENT normocephalic and head/scalp atraumatic Eyes PERRL, EOMs intact bilaterally and conjunctivae normal Neck supple General: trachea midline Chest inspection of chest normal Resp normal respiratory effort Auscultation: Negative for rales, rhonchi or wheezes Cardio regular rate and regular rhythm GI normal to inspection, nondistended, normoactive bowel sounds Extremity General Extremity: amputation Neuro oriented x3 and CN's II-XII intact bilaterally Psych cooperative Charges/Coding Visit Charges Inpatient E&M: 42512 Subs Hosp L2
[2024-01-01] MEDS: HYDROmorphone 0.5 MG/0.5 ML SYRINGE IV ×3 (10:25→21:40)
--- NOTE | 2024-01-01 11:16 | CASEMGMT ---
Discharge Planning Updates sent to [facility]. Asked if precert will be needed. Awaiting response. Selina Sylvester DC Planning Asst.
--- NOTE | 2024-01-01 11:26 | PN.HOSP_ITS ---
Reason for Visit Reason for Visit: Diagnoses Acute posthemorrhagic anemia (12/30/23) Anemia in chronic kidney disease (12/30/23) Type 2 diabetes mellitus without complications (12/30/23) Hypotension, unspecified (12/30/23) Osteomyelitis, unspecified (12/30/23) End stage renal disease (12/30/23) Unspecified open wound of left buttock, initial encounter (12/30/23) jail (current) use of 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 (12/30/23) Personal history of pulmonary embolism (12/30/23) Personal history of other venous thrombosis and embolism (12/30/23) Dependence on renal dialysis (12/30/23) Subjective Subjective No acute events overnight. Patient was found to have hemoglobin decreased to 6.3 this morning. Had 2 units of packed red blood cells ordered by general surgery and these were transfusing I saw the patient at bedside midmorning. Patient appeared similar this morning to yesterday. Appeared mildly fatigued but was otherwise sitting up in bed and making appropriate eye contact and answering questions with short appropriate responses, in no acute distress. He did report mild to moderate upper back and neck pain that are chronic in nature but slightly worse due to constantly being in hospital bed. No other new concerns this morning. Objective Data Objective Data Vital Signs: Vital Signs Temp Pulse Resp BP Pulse Ox O2 Del Method O2 Flow Rate 98.6 F 94 19 H 130/72 H 100 Nasal Cannula 2 01/01/24 10:56 01/01/24 11:20 01/01/24 11:20 01/01/24 11:20 01/01/24 11:20 01/01/24 11:20 01/01/24 11:20 FiO2 2 01/01/24 11:00 Oxygen Flow Rate (L/min) 2 Oxygen Delivery Method Nasal Cannula Weight: 145.15 kg Body Mass Index (BMI) 43.3 Intake & Output: Intake and Output for Last 24 Hours 12/30/23 12/31/23 01/01/24 23:59 23:59 23:59 Intake Total 2241.81 / 2243.69 1170.51 / 1170.51 1221 / 1221 Output Total 250 / 250 20 / 20 Balance 2231.81 / 2233.69 920.51 / 920.51 1201 / 1201 Lab / Micro Data 01/01/24 05:55 01/01/24 04:50 Labs: Laboratory Results - last 24 hr 12/30/23 14:42: Diff Path Review Reviewed 12/30/23 16:42: Crossmatch See Detail 12/31/23 11:55: POC Glucose 96 12/31/23 15:20: POC Glucose 122 H 12/31/23 21:03: POC Glucose 123 H 01/01/24 04:50: WBC Cancelled, Corrected WBC Cancelled, RBC Cancelled, Hgb Cancelled, Hct Cancelled, MCV Cancelled, MCH Cancelled, MCHC Cancelled, RDW Std Deviation Cancelled, RDW Coeff of Shanta Cancelled, Plt Count Cancelled, MPV Cancelled, Immature Gran % (Auto) Cancelled, Neut % (Auto) Cancelled, Lymph % (Auto) Cancelled, Dale % (Auto) Cancelled, Eos % (Auto) Cancelled, Baso % (Auto) Cancelled, Absolute Neuts (auto) Cancelled, Absolute Lymphs (auto) Cancelled, Total Counted Cancelled, Neutrophils % (Manual) Cancelled, Band Neutrophils % Cancelled, Lymphocytes % (Manual) Cancelled, Monocytes % (Manual) Cancelled, Eosinophils % (Manual) Cancelled, Basophils % (Manual) Cancelled, Metamyelocytes % Cancelled, Myelocytes % Cancelled, Promyelocytes % Cancelled, Blast Cells % Cancelled, Plasma Cell % (Manual) Cancelled, Other Cells % Cancelled, Nucleated RBC % Cancelled, Nucleated RBCs/100 WBC Cancelled, Differential Comment Cancelled, Diff Path Review Cancelled, Hypersegmented Neuts Cancelled, Atypical Lymphocytes Cancelled, Reactive Lymphocytes Cancelled, Smudge Cells Cancelled, Toxic Granulation Cancelled, Toxic Vacuolation Cancelled, Dohle Bodies Cancelled, Janel Rods Cancelled, Platelet Estimate Cancelled, Plt Morphology Comment Cancelled, RBC Morphology Cancelled 01/01/24 04:50: RBC Morphology Cancelled, Polychromasia Cancelled, Hypochromasia Cancelled, Basophilic Stippling Cancelled, Anisocytosis Cancelled, Microcytosis Cancelled, Macrocytosis Cancelled, Spherocytes Cancelled, Sickle Cells Cancelled, Target Cells Cancelled, Tear Drop Cells Cancelled, Ovalocytes Cancelled, Stomatocytes Cancelled, Cabrera-[place] Bodies Cancelled, [place] Cells Cancelled, Bite Cells Cancelled, Crenated Cell Cancelled, Acanthocytes (Spur) Cancelled, Rouleaux Cancelled, Schistocytes Cancelled, Sodium 136, Potassium 5.8 H, Chloride 103, Carbon Dioxide 23.0, Anion Gap 10, BUN 54 H, Creatinine 8.98 H* , Estim Creat Clear Calc 16.59, Est GFR (MDRD) Af Amer 9 L, Est GFR (MDRD) Non- Af 7 L, BUN/Creatinine Ratio 6.0 L, Glucose 91, Calcium 8.4 L 01/01/24 05:55: WBC 13.3 H, RBC 2.16 L, Hgb 6.3 L, Hct 20.7 L, MCV 95.8 H, MCH 29.2, MCHC 30.4 L, RDW Std Deviation 54.4 H, RDW Coeff of Shanta 15.6 H, Plt Count 237, MPV 10.6, Immature Gran % (Auto) 0.500, Neut % (Auto) 73.4 H, Lymph % (Auto) 13.8 L, Dale % (Auto) 10.3 H, Eos % (Auto) 1.6, Baso % (Auto) 0.4, A bsolute Neuts (auto) 9.8 H, Absolute Lymphs (auto) 1.84, Nucleated RBC % 0 01/01/24 08:02: POC Glucose 86 Micro: Microbiology 12/31/23 11:50 Urine Catheter - Catheter Urine Culture - Preliminary GNR Poss Pseudomonas sp Physical Exam Const alert and no apparent distress Constitutional Narrative: Younger male, morbidly obese, chronically ill-appearing, mildly fatigued appearing, otherwise sitting up comfortably bed, conversing normally, in no acute distress. Stable. General Appearance: cooperative and comfortable HEENT normocephalic, head/scalp atraumatic, nasal mucous membranes and turbinates normal and moist oral mucous membranes Eyes PERRL, EOMs intact bilaterally and conjunctivae normal Neck full ROM Chest inspection of chest normal Resp normal respiratory effort, normal air movement, no use of accessory muscles and clear to auscultation bilaterally Cardio regular rate, regular rhythm, no murmurs and peripheral pulses 2+ throughout GI normal to inspection, nondistended, normoactive bowel sounds, soft to palpation, non-tender and non-distended Back/Spine normal ROM Extremity Extremity Narrative: Left leg amputation noted. Skin Skin Narrative: Left ischial tuberosity wound packed and covered. Assessment & Plan Assessment/Plan (1) Anemia due to acute blood loss: (2) Osteomyelitis of pelvic region: (3) Open wound of left buttock without complication: QUALIFIERS: Encounter type: initial encounter Qualified Code(s): S31.829A - Unspecified open wound of left buttock, initial encounter (4) Acute hypotension: PLAN: Plan Patient is a 38-year-old male who presented to [facility] ED on 12/30/2023 for a bleeding decubitus ulcer. Admitted to the general surgery service, medicine consulted for medical management. 1. Acute blood loss anemia with hypotension secondary to acute bleed from severe chronic left ischial tuberosity wound with osteomyelitis, improved; history of anemia of chronic disease ? General surgery primary. ID following. Wound care following. Had known osteomyelitis of pelvic region with wound, s/p I&D down to bone on 12/[address] Villagran. Wound cultures grew Proteus and Enterococcus. Was started on IV vancomycin and ertapenem with plan for 6 weeks of IV antibiotics dosed with HD, along with daily labs. Per ID, will continue with this plan. S/p wound irrigation and washout with packing on 12/29. Hemoglobin 6.9 on admit, down from 7.9 four days earlier; baseline appears to be around 8-9. S/p 2 units of packed red blood cells on admit. Hemoglobin 7.4 postoperatively and remained stable at 7.3 on morning of 12/30. Repeat hemoglobin 6.3 on 12/31, s/p 2 more units of packed red blood cells ordered, hemoglobin recheck pending. Monitor daily CBC. Further management per general surgery. 2. ESRD on HD ? Nephrology following. HD per nephrology recommendations. Continue home calcitriol and sevelamer. 3. Type 2 diabetes mellitus ? Home regimen of Lantus 11 units at night and Humalog 9 units with morning meal and 6 units with evening meal. Continue home Lantus 11 units at night and sliding scale insulin with meals for now, adjust as needed. 4. Hypertension ? Holding home Coreg and hydralazine for now. 5. History of VTE on Eliquis ? Holding home Eliquis for now. Chronic medical conditions: ? Morbid obesity: BMI 41 on admit. Complicates hospital course, care and prognosis. ? Hyperlipidemia: Continue home statin. ? Depression/insomnia: Stable. Continue home escitalopram and trazodone at night. ? GERD: Continue home PPI. ? S/p LLE amputation with phantom pain: Continue home gabapentin. ? Hypothyroidism: Continue home Synthroid. Total clinical time spent by myself addressing the patient's medical issues, reviewing all the data, and collaborating with patient's care team: 25 minutes. Charges/Coding Visit Charges Inpatient E&M: 65359 [facility] Hosp L1
--- NOTE | 2024-01-01 11:38 | PCM.RX.CS ---
Consult Antibiotic Management Pharmacy has been consulted to manage selected antibiotic: Vancomycin Type of Intervention Type of Consult: New start Suspected Infection Suspected Infection: Skin/Soft tissue and Osteomyelitis Prior Doses of Antibiotics Prior Doses of Antibiotics Received/Current Regimen: Ordered 1 x dose of 2000mg to be given after dialysis on 01.01.24. Labs Labs: Sodium 136 mmol/L (136-145) 01/01/24 04:50 Potassium 5.8 mmol/L (3.5-5.1) H 01/01/24 04:50 Chloride 103 mmol/L (98-107) 01/01/24 04:50 Carbon Dioxide 23.0 mmol/L (21.0-32.0) 01/01/24 04:50 Anion Gap 10 (5-15) 01/01/24 04:50 BUN 54 mg/dL (7-18) H 01/01/24 04:50 Creatinine 8.98 mg/dL (0.70-1.30) H* 01/01/24 04:50 Est GFR (MDRD) Af Amer 9 mL/min (>60) L 01/01/24 04:50 Est GFR (MDRD) Non-Af 7 mL/min (>60) L 01/01/24 04:50 BUN/Creatinine Ratio 6.0 RATIO (10-20) L 01/01/24 04:50 Glucose 91 mg/dL (74-106) 01/01/24 04:50 Microbiology Microbiology: Microbiology 12/31/23 11:50 Urine Catheter - Catheter Urine Culture - Preliminary GNR Poss Pseudomonas sp Dosing Weight Weight used for dosin kg Estimated Creatinine Clearance Estimated Creatinine Clearance: HD patient Goal Trough Goal Trough: 15-20 mcg/mL Pharmacy Plan for Drug Dosing Pharmacy Plan for Drug Dosin x dose of 2000mg to be given 01.01.24 after dialysis. Further dosing to be followed per protocol for HD dosing. Pharmacy Service will continue to monitor and adjust dosing as required.
[2024-01-01 11:45] LABS: Bedside Glucose 84 mg/dL (74-106)
[2024-01-01] MEDS: Ertapenem Sod 0.5 GM in 0.9% Normal Saline (50mL Bag) 50 ML IV (14:51)
--- NOTE | 2024-01-01 14:56 | PCM.PN.REN ---
Subjective Subjective no new events Objective Data Objective Data Vital Signs: Vital Signs Temp Pulse Resp BP Pulse Ox O2 Del Method O2 Flow Rate 98.5 F 88 18 130/66 H 96 Nasal Cannula 2 01/01/24 14:42 01/01/24 14:42 01/01/24 14:42 01/01/24 14:42 01/01/24 14:42 01/01/24 14:42 01/01/24 14:42 Oxygen Flow Rate (L/min) 2 Oxygen Delivery Method Nasal Cannula Weight: 144.242 kg Body Mass Index (BMI) 43.0 Intake & Output: Intake and Output for Last 24 Hours 12/30/23 12/31/23 01/01/24 23:59 23:59 23:59 Intake Total 2241.81 / 2243.69 1170.51 / 1170.51 1341 / 1341 Output Total 250 / 250 2920 / 2920 Balance 2231.81 / 2233.69 920.51 / 920.51 -1579 / -1579 Lab / Micro Data 01/01/24 05:55 01/01/24 04:50 Labs: Laboratory Results - last 24 hr 12/30/23 16:42: Crossmatch See Detail 12/31/23 15:20: POC Glucose 122 H 12/31/23 21:03: POC Glucose 123 H 01/01/24 04:50: WBC Cancelled, Corrected WBC Cancelled, RBC Cancelled, Hgb Cancelled, Hct Cancelled, MCV Cancelled, MCH Cancelled, MCHC Cancelled, RDW Std Deviation Cancelled, RDW Coeff of Shanta Cancelled, Plt Count Cancelled, MPV Cancelled, Immature Gran % (Auto) Cancelled, Neut % (Auto) Cancelled, Lymph % (Auto) Cancelled, [place] % (Auto) Cancelled, Eos % (Auto) Cancelled, Baso % (Auto) Cancelled, Absolute Neuts (auto) Cancelled, Absolute Lymphs (auto) Cancelled, Total Counted Cancelled, Neutrophils % (Manual) Cancelled, Band Neutrophils % Cancelled, Lymphocytes % (Manual) Cancelled, Monocytes % (Manual) Cancelled, Eosinophils % (Manual) Cancelled, Basophils % (Manual) Cancelled, Metamyelocytes % Cancelled, Myelocytes % Cancelled, Promyelocytes % Cancelled, Blast Cells % Cancelled, Plasma Cell % (Manual) Cancelled, Other Cells % Cancelled, Nucleated RBC % Cancelled, Nucleated RBCs/100 WBC Cancelled, Differential Comment Cancelled, Diff Path Review Cancelled, Hypersegmented Neuts Cancelled, Atypical Lymphocytes Cancelled, Reactive Lymphocytes Cancelled, Smudge Cells Cancelled, Toxic Granulation Cancelled, Toxic Vacuolation Cancelled, Dohle Bodies Cancelled, Janel Rods Cancelled, Platelet Estimate Cancelled, Plt Morphology Comment Cancelled, RBC Morphology Cancelled 01/01/24 04:50: RBC Morphology Cancelled, Polychromasia Cancelled, Hypochromasia Cancelled, Basophilic Stippling Cancelled, Anisocytosis Cancelled, Microcytosis Cancelled, Macrocytosis Cancelled, Spherocytes Cancelled, Sickle Cells Cancelled, Target Cells Cancelled, Tear Drop Cells Cancelled, Ovalocytes Cancelled, Stomatocytes Cancelled, Cabrera-Washta Bodies Cancelled, Elizabeth Cells Cancelled, Bite Cells Cancelled, Crenated Cell Cancelled, Acanthocytes (Spur) Cancelled, Rouleaux Cancelled, Schistocytes Cancelled, Sodium 136, Potassium 5.8 H, Chloride 103, Carbon Dioxide 23.0, Anion Gap 10, BUN 54 H, Creatinine 8.98 H*, Estim Creat Clear Calc 16.59, Est GFR (MDRD) Af Amer 9 L, Est GFR (MDRD) Non-Af 7 L, BUN/Creatinine Ratio 6.0 L, Glucose 91, Calcium 8.4 L 01/01/24 05:55: WBC 13.3 H, RBC 2.16 L, Hgb 6.3 L, Hct 20.7 L, MCV 95.8 H, MCH 29.2, MCHC 30.4 L, RDW Std Deviation 54.4 H, RDW Coeff of Shanta 15.6 H, Plt Count 237, MPV 10.6, Immature Gran % (Auto) 0.500, Neut % (Auto) 73.4 H, Lymph % (Auto) 13.8 L, [place] % (Auto) 10.3 H, Eos % (Auto) 1.6, Baso % (Auto) 0.4, Absolute Neuts (auto) 9.8 H, Absolute Lymphs (auto) 1.84, Nucleated RBC % 0 01/01/24 08:02: POC Glucose 86 01/01/24 11:24: POC Glucose 84 Micro: Microbiology 12/31/23 11:50 Urine Catheter - Catheter Urine Culture - Preliminary GNR Poss Pseudomonas sp Physical Exam Narrative Alert awake oriented x 3 no obvious distress no pallor no icterus no JVD s1s2 no murmurs lungs clear abdomen soft no organomegaly Assessment & Plan Assessment/Plan (1) End stage renal disease: PLAN: Plan ESRD. On hemodialysis at the [facility] 4 times a week. HD today Hyperkalemia. HD on 2k bath
[2024-01-01] MEDS: Vancomycin HCl 2,000 MG in 0.9% Normal Saline (500mL Bag) 500 ML 250 MG IV (15:35)
--- NOTE | 2024-01-01 15:43 | WOUNDNOTE ---
Was going to change the left ischial dressing. pt did not want this nurse to change it at this time. states the dressing was just changed. will plan to assess in the am with Dr Garcia.
[2024-01-01] MEDS: Insulin Glargine-YFGN 100 UNIT/ML Pen 11 UNIT SC (17:01)
[2024-01-01 17:13] LABS: Bedside Glucose 116 mg/dL (74-106)
[2024-01-01] MEDS: oxyCODONE 5 MG Tablet 10 MG PO (17:45)
[2024-01-01] MEDS: Acetaminophen 325 MG Tablet 650 MG PO (17:46)
[2024-01-01] MEDS: Ascorbic Acid 500 MG Tablet PO (21:42)
[2024-01-01] MEDS: Atorvastatin Calcium 40 MG Tablet PO (21:42)
[2024-01-01] MEDS: traZODone 50 MG Tablet 150 MG PO (21:42)
[2024-01-01] MEDS: Escitalopram Oxalate 10 MG Tablet 15 MG PO (21:42)
[2024-01-02 01:42] LABS: Bedside Glucose 100 mg/dL (74-106)
[2024-01-02 03:30] VITALS: BP 113/39; PULSE 81; RESP 20; TEMP 36.9; O2SAT 100
[2024-01-02 04:24] VITALS: BMI 43.8
[2024-01-02] MEDS: Levothyroxine 150 MCG Tablet PO (06:30)
[2024-01-02 06:58] LABS: Bedside Glucose 90 mg/dL (74-106)
--- NOTE | 2024-01-02 07:13 | PCM.PN.SRG ---
Subjective Subjective No events overnight Objective Data Objective Data Vital Signs: Vital Signs Temp Pulse Resp BP Pulse Ox O2 Del Method O2 Flow Rate 98.4 F 81 20 H 113/39 L 100 Nasal Cannula 2 01/02/24 03:30 01/02/24 03:30 01/02/24 03:30 01/02/24 03:30 01/02/24 03:30 01/02/24 03:30 01/02/24 03:30 Oxygen Flow Rate (L/min) 2 Oxygen Delivery Method Nasal Cannula Weight: 323 lb 13.745 oz Body Mass Index (BMI) 43.8 Intake & Output: Intake and Output for Last 24 Hours 12/31/23 01/01/24 01/02/24 23:59 23:59 23:59 Intake Total 1170.51 / 1170.51 2960 / 2960 Output Total 250 / 250 3070 / 3070 10 / 10 Balance 920.51 / 920.51 -110 / -110 -10 / -10 Lab / Micro Data 01/02/24 07:33 01/02/24 07:33 Labs: Laboratory Results - last 24 hr 12/30/23 16:42: Crossmatch See Detail 01/01/24 08:02: POC Glucose 86 01/01/24 11:24: POC Glucose 84 01/01/24 16:27: POC Glucose 116 H 01/01/24 21:33: POC Glucose 100 01/02/24 06:28: POC Glucose 90 Micro: Microbiology 12/31/23 11:50 Urine Catheter - Catheter Urine Culture - Final Pseudomonas aeruginosa Physical Exam Narrative Packing removed from wound had oozing around all the sides small amount no deep bleeding?good granulation tissue Const oriented x3 Resp normal respiratory effort GI soft to palpation and non-tender Assessment & Plan Assessment/Plan (1) Anemia due to acute blood loss: PLAN: Patient's labs are currently pending. Yesterday level at 6.3 may get 2 units of blood during dialysis. Packing was removed and he did have oozing at the sides of the wound will not plan on starting anticoagulation today as likely he would just increase bleeding. No deep bleeding on packing removal. Denise Otto M.D. Pager: [phone] [facility] [address] [place] [address], [facility], [address] [place] [address] Office: [phone]
--- NOTE | 2024-01-02 07:27 | WOUNDNOTE ---
wound photo: left ischium
[2024-01-02 07:41] LABS: Hematocrit 26.6 % (40-54); Hemoglobin 7.7 g/dL (13.0-16.5); Mean Corp Hgb Conc 28.9 g/dL (32-36); Mean Corpuscular Hgb 29.5 pg (27.0-32.0); Mean Corpuscular Volume 101.9 fL (80-94); Mean Platelet Vol. 10.3 fl (6.2-12.0); Platelet Count 169 K/mm3 (150-450); RBC Distribution Width CV 15.5 % (11.6-14.6); Red Blood Count 2.61 M/mm3 (4.6-6.2); White Blood Count 12.2 K/mm3 (4.4-11.0)
[2024-01-02 07:48] VITALS: BP 137/76; PULSE 77; RESP 16; TEMP 36.7; O2SAT 100
[2024-01-02 07:50] VITALS: O2SAT 100
[2024-01-02] MEDS: HYDROmorphone 0.5 MG/0.5 ML SYRINGE IV ×3 (07:56→22:54)
[2024-01-02 08:14] LABS: Anion Gap 8 (5-15); BUN 47 mg/dL (7-18); BUN/Creat Ratio 5.5 RATIO (10-20); Calcium,Total 8.8 mg/dL (8.5-10.1); Chloride 104 mmol/L (98-107); Creatinine, Serum 8.54 mg/dL (0.70-1.30); EST Glomerular Filtration Rate 8 mL/min (>60); Est Glom Filt Rate - Afr Amer 9 mL/min (>60); Estimated Creatinine Clearance 17.81 ml/min; Glucose 94 mg/dL (74-106); Potassium 4.8 mmol/L (3.5-5.1); Sodium Level 136 mmol/L (136-145)
[2024-01-02] MEDS: Pantoprazole Sodium 40 MG in 0.9% Normal Saline (100mL MB+) 100 ML 330 MG IV (10:10)
[2024-01-02] MEDS: Calcitriol 0.25 MCG Capsule 1.25 MCG PO (10:15)
[2024-01-02] MEDS: Tacrolimus Anhydrous 1 MG Capsule 2 MG PO ×2 (10:15→22:38)
[2024-01-02] MEDS: SEVELAMER CARBONATE 800 MG TABLET 2400 MG PO ×2 (10:15→17:38)
--- NOTE | 2024-01-02 10:16 | PN.HOSP_ITS ---
Reason for Visit Reason for Visit: Diagnoses Acute posthemorrhagic anemia (12/30/23) Anemia in chronic kidney disease (12/30/23) Type 2 diabetes mellitus without complications (12/30/23) Hypotension, unspecified (12/30/23) Osteomyelitis, unspecified (12/30/23) End stage renal disease (12/30/23) Unspecified open wound of left buttock, initial encounter (12/30/23) residential (current) use of 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 (12/30/23) Personal history of pulmonary embolism (12/30/23) Personal history of other venous thrombosis and embolism (12/30/23) Dependence on renal dialysis (12/30/23) Objective Data Objective Data Vital Signs: Vital Signs Temp Pulse Resp BP Pulse Ox O2 Del Method O2 Flow Rate 98.0 F 77 16 137/76 H 100 Nasal Cannula 2 01/02/24 07:48 01/02/24 07:48 01/02/24 07:48 01/02/24 07:48 01/02/24 07:50 01/02/24 07:50 01/02/24 07:50 Oxygen Flow Rate (L/min) 2 Oxygen Delivery Method Nasal Cannula Weight: 323 lb 13.745 oz Body Mass Index (BMI) 43.8 Intake & Output: Intake and Output for Last 24 Hours 12/31/23 01/01/24 01/02/24 23:59 23:59 23:59 Intake Total 1170.51 / 1170.51 2960 / 2960 Output Total 250 / 250 3070 / 3070 10 / 10 Balance 920.51 / 920.51 -110 / -110 -10 / -10 Lab / Micro Data 01/02/24 07:33 01/02/24 07:33 Labs: Laboratory Results - last 24 hr 12/30/23 16:42: Crossmatch See Detail 01/01/24 11:24: POC Glucose 84 01/01/24 16:27: POC Glucose 116 H 01/01/24 21:33: POC Glucose 100 01/02/24 06:28: POC Glucose 90 01/02/24 07:33: WBC 12.2 H, RBC 2.61 L, Hgb 7.7 L, Hct 26.6 L, MCV 101.9 H D, MCH 29.5, MCHC 28.9 L, RDW Std Deviation 58.0 H, RDW Coeff of Shanta 15.5 H, Plt Count 169, MPV 10.3, Sodium 136, Potassium 4.8, Chloride 104, Carbon Dioxide 24.0, Anion Gap 8, BUN 47 H, Creatinine 8.54 H*, Estim Creat Clear Calc 17.81, E st GFR (MDRD) Af Amer 9 L, Est GFR (MDRD) Non-Af 8 L, BUN/Creatinine Ratio 5.5 L , Glucose 94, Calcium 8.8 Micro: Microbiology 12/31/23 11:50 Urine Catheter - Catheter Urine Culture - Final Pseudomonas aeruginosa Physical Exam Narrative Seen and examined. General: Alert, Oriented x3, Cooperative. Morbid obesity 43.9 kg/m?. HEENT: Atraumatic, PERRLA, EOMI, Normocephalic Oral: No Gingival or Mucosal Lesions/ Ulcerations Neck: Supple, No JVD, Negative Carotid Bruits Chest wall/Lungs: Air entry diminished in bilateral lung bases. No crepitation/rhonchi Cardiovascular: Regular rate, Regular Rhythm, Normal S1, Normal S2, No M/G/R Abdomen: Bowel Sounds Present, Soft, Non Tender, Non-Distended : On hemodialysis. No dysuria. No renal angle tenderness. No suprapubic tenderness. Extremities: No edema, Capillary Refill Less than 3 Seconds Skin: Sacral decubitus ulcer. Musculoskeletal: Left above-knee amputation. Right foot lateral 2 toes amputated. No Tenderness to Palpation of Joints or Extremities Neurological: Cranial nerves II-XII grossly intact, DTR 2+/4. No acute focal neurological deficit. Psych/Mental Status: Normal Affect, Appropriate. Assessment & Plan Assessment/Plan (1) Anemia due to acute blood loss: (2) Osteomyelitis of pelvic region: (3) Open wound of left buttock without complication: QUALIFIERS: Encounter type: initial encounter Qualified Code(s): S31.829A - Unspecified open wound of left buttock, initial encounter (4) Acute hypotension: PLAN: Plan Patient is a 38-year-old male who presented to [facility] ED on 12/30/2023 for a bleeding decubitus ulcer. Admitted to the general surgery service, medicine consulted for medical management. 1. Acute blood loss anemia with hypotension secondary to acute bleed from severe chronic left ischial tuberosity wound with osteomyelitis, improved; history of anemia of chronic disease ? General surgery primary. ID following. Wound care following. Had known osteomyelitis of pelvic region with wound, s/p I&D down to bone on 12/[address] Villagran. Wound cultures grew Proteus and Enterococcus. Was started on IV vancomycin and ertapenem with plan for 6 weeks of IV antibiotics dosed with HD, along with daily labs. Per ID, will continue with this plan. S/p wound irrigation and washout with packing on 12/29. Hemoglobin 6.9 on admit, down from 7.9 four days earlier; baseline appears to be around 8-9. S/p 2 units of packed red blood cells on admit. Hemoglobin 7.4 postoperatively and remained stable at 7.3 on morning of 12/30. Repeat hemoglobin 6.3 on 12/31, s/p 2 more units of packed red blood cells ordered, hemoglobin recheck pending. Monitor daily CBC. 01/01: Left ischial wound reviewed. No skilled granulation tissue with deep tunnel. No active bleeding. Hemoglobin 7.7. Severe anemia 2. ESRD on HD ? Nephrology following. HD per nephrology recommendations. Continue home calcitriol and sevelamer. 3. Type 2 diabetes mellitus ? Home regimen of Lantus 11 units at night and Humalog 9 units with morning meal and 6 units with evening meal. Continue home Lantus 11 units at night and sliding scale insulin with meals for now, adjust as needed. 4. Hypertension ? Holding home Coreg and hydralazine for now. 5. History of VTE on Eliquis ? Holding home Eliquis for now. Chronic medical conditions: ? Morbid obesity: BMI 41 on admit. Complicates hospital course, care and prognosis. ? Hyperlipidemia: Continue home statin. ? Depression/insomnia: Stable. Continue home escitalopram and trazodone at night. ? GERD: Continue home PPI. ? S/p LLE amputation with phantom pain: Continue home gabapentin. ? Hypothyroidism: Continue home Synthroid. Charges/Coding Visit Charges Inpatient E&M: 98763 Subs Hosp L2
[2024-01-02] MEDS: Gabapentin 100 MG Capsule 200 MG PO ×2 (10:18→22:53)
[2024-01-02 11:06] LABS: Bedside Glucose 136 mg/dL (74-106)
[2024-01-02 14:19] LABS: Pathologist Review Reviewed
[2024-01-02 14:20] LABS: Pathologist Review Reviewed
[2024-01-02 14:37] VITALS: BP 168/79; PULSE 87; RESP 18; TEMP 37.7; O2SAT 98
--- NOTE | 2024-01-02 14:50 | PN.ID_ITS ---
Physical Exam Narrative Feeling ok, no fever, no pain Const alert and no apparent distress Resp normal air movement and clear to auscultation bilaterally Cardio regular rate and regular rhythm GI soft to palpation, non-tender and non-distended Skin Skin Narrative: no new rash ID ID: Route of nutrition/ use of supplements: [] Nutritional Intake: [] IV Site: [] Hurst Catheter: [] Assessment & Plan Assessment/Plan (1) End-stage renal disease on hemodialysis: (2) Osteomyelitis of pelvic region: PLAN: Taken to OR 12/09/[address] Villagran for I&D down to bone. Surg cx with proteus, enterococcus. Cont vanc and ertapenem, plan is still for 6 weeks iv abx dosed with HD ([facility] at [facility]) with weekly labs and stop date 01/20/24. Updated rx for discharge. Will follow
--- NOTE | 2024-01-02 14:58 | CASEMGMT ---
Social Work SW met with pt to discuss advance directives.? Pt states he has not completed advance directives and is not interested in completing at this time. SW spoke with [facility] who confirms pt does not have these documents. DAMARI Hernandez
[2024-01-02] MEDS: Ertapenem Sod 0.5 GM in 0.9% Normal Saline (50mL Bag) 50 ML IV (16:21)
[2024-01-02] MEDS: oxyCODONE 5 MG Tablet 10 MG PO (16:21)
[2024-01-02] MEDS: 0.9% Normal Saline (1000mL) 1,000 ML 60 ML IV (16:27)
[2024-01-02 16:33] LABS: Bedside Glucose 130 mg/dL (74-106)
[2024-01-02] MEDS: Insulin Glargine-YFGN 100 UNIT/ML Pen 11 UNIT SC (17:37)
[2024-01-02 17:48] VITALS: BP 142/80; PULSE 84; RESP 18; TEMP 36.6; O2SAT 97
--- NOTE | 2024-01-02 21:52 | PN.RENAL_ITS ---
Subjective Subjective no new events. on floor today Objective Data Objective Data Vital Signs: Vital Signs Temp Pulse Resp BP Pulse Ox O2 Del Method O2 Flow Rate 98 F 84 18 142/80 H 97 Nasal Cannula 2 01/02/24 17:48 01/02/24 17:48 01/02/24 17:48 01/02/24 17:48 01/02/24 17:48 01/02/24 17:48 01/02/24 17:46 Oxygen Flow Rate (L/min) 2 Oxygen Delivery Method Nasal Cannula Weight: 146.9 kg Body Mass Index (BMI) 43.8 Intake & Output: Intake and Output for Last 24 Hours 12/31/23 01/01/24 01/02/24 23:59 23:59 23:59 Intake Total 1170.51 / 1170.51 2960 / 2960 1460 / 1460 Output Total 250 / 250 3070 / 3070 60 / 60 Balance 920.51 / 920.51 -110 / -110 1400 / 1400 Lab / Micro Data 01/02/24 07:33 01/02/24 07:33 Labs: Laboratory Results - last 24 hr 12/31/23 00:10: Diff Path Review Reviewed 12/31/23 05:07: Diff Path Review Reviewed 01/01/24 21:33: POC Glucose 100 01/02/24 06:28: POC Glucose 90 01/02/24 07:33: WBC 12.2 H, RBC 2.61 L, Hgb 7.7 L, Hct 26.6 L, MCV 101.9 H D, MCH 29.5, MCHC 28.9 L, RDW Std Deviation 58.0 H, RDW Coeff of Shanta 15.5 H, Plt Count 169, MPV 10.3, Sodium 136, Potassium 4.8, Chloride 104, Carbon Dioxide 24.0, Anion Gap 8, BUN 47 H, Creatinine 8.54 H*, Estim Creat Clear Calc 17.81, E st GFR (MDRD) Af Amer 9 L, Est GFR (MDRD) Non-Af 8 L, BUN/Creatinine Ratio 5.5 L , Glucose 94, Calcium 8.8 01/02/24 10:49: POC Glucose 136 H 01/02/24 16:16: POC Glucose 130 H Micro: Microbiology 12/31/23 11:50 Urine Catheter - Catheter Urine Culture - Final Pseudomonas aeruginosa Physical Exam Narrative Alert awake oriented x 3 no obvious distress no pallor no icterus no JVD s1s2 no murmurs lungs clear abdomen soft no organomegaly Assessment & Plan Assessment/Plan (1) End stage renal disease: PLAN: Plan ESRD. [facility] a [facility]. Hyperkalemia. HD on 2k bath. improved ID note reviewed.
[2024-01-02 22:00] VITALS: BP 152/56; PULSE 79; RESP 15; TEMP 37.1; O2SAT 98
[2024-01-02] MEDS: traZODone 50 MG Tablet 150 MG PO (22:37)
[2024-01-02] MEDS: Atorvastatin Calcium 40 MG Tablet PO (22:38)
[2024-01-02] MEDS: Escitalopram Oxalate 10 MG Tablet 15 MG PO (22:38)
[2024-01-02] MEDS: Ascorbic Acid 500 MG Tablet PO (22:38)
[2024-01-02 23:41] LABS: Bedside Glucose 101 mg/dL (74-106)
[2024-01-03] VITALS (12 sets, daily range): BP systolic 96–286; BP diastolic 43–66; PULSE 73–84; RESP 13–18; TEMP 36.4–36.9; O2SAT 96–100; BMI 42.8; BMI 42.0
[2024-01-03] MEDS: Ondansetron 4 MG/2 ML Vial IV (03:50)
[2024-01-03] MEDS: Levothyroxine 150 MCG Tablet PO (06:48)
[2024-01-03 07:14] LABS: Bedside Glucose 95 mg/dL (74-106)
--- NOTE | 2024-01-03 07:22 | PN.SURG_ITS ---
Subjective Subjective No issues or changes overnight. Patient reports tolerating a diet with no nausea or vomiting. Pain is well-controlled. Objective Data Objective Data Vital Signs: Vital Signs Temp Pulse Resp BP Pulse Ox O2 Del Method O2 Flow Rate 98.5 F 77 15 134/47 H 96 Room Air 2 01/03/24 04:00 01/03/24 04:00 01/03/24 04:00 01/03/24 04:00 01/03/24 04:00 01/03/24 04:00 01/03/24 01:00 Oxygen Flow Rate (L/min) 2 Oxygen Delivery Method Room Air Weight: 316 lb 9.341 oz Body Mass Index (BMI) 42.8 Intake & Output: Intake and Output for Last 24 Hours 01/01/24 01/02/24 01/03/24 23:59 23:59 23:59 Intake Total 2960 / 2960 1560 / 1560 50 / 50 Output Total 3070 / 3070 110 / 110 20 / 20 Balance -110 / -110 1450 / 1450 30 / 30 Lab / Micro Data 01/02/24 07:33 01/02/24 07:33 Labs: Laboratory Results - last 24 hr 12/31/23 00:10: Diff Path Review Reviewed 12/31/23 05:07: Diff Path Review Reviewed 01/02/24 07:33: WBC 12.2 H, RBC 2.61 L, Hgb 7.7 L, Hct 26.6 L, MCV 101.9 H D, MCH 29.5, MCHC 28.9 L, RDW Std Deviation 58.0 H, RDW Coeff of Shanta 15.5 H, Plt Count 169, MPV 10.3, Sodium 136, Potassium 4.8, Chloride 104, Carbon Dioxide 24.0, Anion Gap 8, BUN 47 H, Creatinine 8.54 H*, Estim Creat Clear Calc 17.81, E st GFR (MDRD) Af Amer 9 L, Est GFR (MDRD) Non-Af 8 L, BUN/Creatinine Ratio 5.5 L , Glucose 94, Calcium 8.8 01/02/24 10:49: POC Glucose 136 H 01/02/24 16:16: POC Glucose 130 H 01/02/24 22:34: POC Glucose 101 01/03/24 06:45: POC Glucose 95 Micro: Microbiology 12/31/23 11:50 Urine Catheter - Catheter Urine Culture - Final Pseudomonas aeruginosa Physical Exam Const oriented x3 and no apparent distress Resp normal respiratory effort GI normal to inspection, nondistended, normoactive bowel sounds Assessment & Plan Assessment/Plan (1) Hemorrhagic shock: (2) Anemia due to acute blood loss: (3) History of deep vein thrombosis: PLAN: Plan The patient is going to have dialysis today. I am resuming his Eliquis this morning. Hemoglobin is pending. As long as he tolerates dialysis and dressing change after the Eliquis is started I will likely get him to his senior living this afternoon. Humberto Garcia MD Pager: [facility] [address] [place] [address], [address] [place] [address] Office:
[2024-01-03] MEDS: Calcitriol 0.25 MCG Capsule 1.25 MCG PO (08:39)
[2024-01-03] MEDS: Gabapentin 100 MG Capsule 200 MG PO (08:39)
[2024-01-03] MEDS: oxyCODONE 5 MG Tablet 10 MG PO (08:39)
[2024-01-03] MEDS: SEVELAMER CARBONATE 800 MG TABLET 2400 MG PO (08:39)
[2024-01-03] MEDS: Tacrolimus Anhydrous 1 MG Capsule 2 MG PO (08:40)
--- NOTE | 2024-01-03 10:40 | PCM.TXEXTCAR ---
Diet Diet Order/Speech Therapy: 12/31/23 10:59 Diet: Renal - ConsCHO - Eulogio Cont Is pt able to select menu?: Yes How many daily calories?: 1800 calorie Routine Orders/Code Status Change Hurst Catheter: as needed Code Status: Full Code Wound(s) BUTTOCKS: Wound Type: Open Surgical Wound Lt buttock: Wound Type: Open Surgical Wound left ischium: Wound Type: Pressure Injury Dressing Change: Wet to Dry Dressing Therapies Weight Bearing: Weight bearing as tolerated Physical Therapy: Eval and Treat Occupational Therapy: Eval and Treat Problem/Diagnosis (1) Hemorrhagic shock: Status: Acute Code(s): R57.8 - Other shock (2) Anemia due to acute blood loss: Status: Acute Code(s): D62 - Acute posthemorrhagic anemia (3) History of deep vein thrombosis: Status: Acute Code(s): Z86.718 - Personal history of other venous thrombosis and embolism Plan The patient is going to have dialysis today. I am resuming his Eliquis this morning. Hemoglobin is pending. As long as he tolerates dialysis and dressing change after the Eliquis is started I will likely get him to his [facility] this afternoon. Humberto Garcia MD Pager: [facility] [address] [place] [address], [address] [place] [address] Office: Allergies/Procedures Done in Hospital Allergies No Known Allergies Allergy (Verified 12/30/23 16:31) Type of Care/Length of Stay Estimated LOS: Convalescent Care Less Than 30 days Type of Care Needed: Skilled Rehab Potential: Good Prognosis: Fair Additional Orders/Day of Discharge Day of Discharge: 01/03/24 Dietary and Speech Recommendations Dietitian Recommendations/Changes: RD will change diet to Renal/CCD to manage medical conditions. RD will order Kalyan BID with medpass to promote wound healing. Follow Up Care Please Follow Up With: Yusuf Villagran MD When: call for appt in wound center Discharge Plan Admission Admit Date/Time: 12/30/23 19:15 Attending Provider: Humberto Garcia Primary Care Provider: Vanessa Hutchins Consulting Providers: Coy Wayne; Jabari Medeiros; Ansley Peña; Denver Saunders Discharge Orders/Prescriptions Prescriptions: New ertapenem 1 gram recon soln 0.5 g IV DAILY Qty: 16 0RF Rx Instructions: stop date 01/20/24. Dx: sacral osteomyelitis. Dose 0.5gm iv ertapenem with HD on Sat, , and . Dose 1gm iv erta with HD on Fridays. weekly bmp, cbc, LFT, vanc trough, and esr. Fax to [phone]. vancomycin in 0.9 % sodium chl 1 gram/200 mL piggyback 1 g IV .see below 16 Days Rx Instructions: stop date 01/20/24. Dx: sacral osteomyelitis. Dose 750gm iv vancomycin with HD on Sat, , and . Dose 1gm iv vanc with HD on Fridays. weekly bmp, cbc, LFT, vanc trough, and esr. Fax to [phone]. Continued atorvastatin 40 mg Tablet 40 mg PO QHS acetaminophen 325 mg Tablet 650 mg PO Q4H PRN (Reason: PAIN/FEVER) carvedilol 12.5 mg Tablet 12.5 mg PO .BID CM Rx Instructions: must administer with a meal/food ascorbic acid (vitamin C) 500 mg Tablet 500 mg PO QHS bisacodyl 10 mg Suppository 10 mg ID DAILY PRN (Reason: Constipation) dextrose [Glucose Gel] 40 % Gel 15 g PO Q15M PRN (Reason: Hypoglycemia) Rx Instructions: until symptoms of low blood sugar are controlled insulin lispro [Humalog KwikPen Insulin] 100 unit/mL Insulin Pen 6 unit SUBCUT QHS Eliquis 5 mg Tablet 5 mg PO BID trazodone 50 mg Tablet 150 mg PO QHS hydralazine 25 mg Tablet 50 mg PO Q8 pantoprazole 40 mg Tablet,Delayed Release (Dr/Ec) 40 mg PO DAILY Rx Instructions: in am clotrimazole-betamethasone 1-0.05 % Cream 1 applic TOPICAL QHS Rx Instructions: apply to face tacrolimus [Prograf] 1 mg Capsule 2 mg PO Q12H midodrine 10 mg Tablet 10 mg PO MOTUTHFR Rx Instructions: TAKE 1 TAB BY MOUTH EVERY SATURDAY, SATURDAY, SATURDAY, AND SATURDAY for hypotension prior to dialysis Hold BP >130/90 insulin glargine [Lantus Solostar U-100 Insulin] 100 unit/mL (3 mL) Insulin Pen 11 unit SUBCUT 1700 polyethylene glycol 3350 17 gram Powder In Packet 17 g PO DAILY PRN (Reason: constipation) promethazine 12.5 mg Tablet 12.5 mg PO Q8H PRN (Reason: Nausea) ondansetron HCl 4 mg Tablet 4 mg PO Q8H PRN PRN (Reason: Nausea) Senna Plus 8.6-50 mg Capsule 1 tab-cap PO BID calcitriol 0.5 mcg capsule 1.25 mcg PO DAILY Patient Comments: MAR STATES THAT PT TAKES IN THE MORNING gabapentin 100 mg capsule 200 mg PO BID sevelamer HCl 800 mg tablet 2,400 mg PO TIDCM Rx Instructions: must administer with a meal/food levothyroxine 150 mcg tablet 150 mcg PO DAILY@0600 Patient Comments: MAR STATES PT TAKES IN THE AM oxycodone 10 mg tablet 10 mg PO Q4H PRN (Reason: pain) 2 Days Qty: 12 0RF acetaminophen 650 mg suppository 650 mg ID Q4H PRN (Reason: fever or pain) magnesium hydroxide [Milk of Magnesia] 400 mg/5 mL suspension 30 ml PO DAILY PRN (Reason: constipation) glucagon 1 mg kit 1 mg subcut X1 PRN (Reason: hypoglycemia) Benadryl Extra Strength 2-0.1 % cream 1 applic topical Q6H PRN PRN (Reason: itching) oxycodone-acetaminophen [Percocet] 5-325 mg tablet 1 tab PO BID PRN (Reason: pain (scale score 7-10)) 7 Days Qty: 10 0RF ciclopirox 8 % solution 1 applic topical QHS Rx Instructions: right thumb insulin lispro [Humalog KwikPen Insulin] 100 unit/mL insulin pen 9 unit subcut DAILY Rx Instructions: in am escitalopram oxalate [Lexapro] 10 mg tablet 15 mg PO QHS Discontinued acetaminophen 500 mg Tablet 1,000 mg PO TID ertapenem 1 gram Recon Soln 0.5 g IV Q24 Qty: 23 0RF Rx Instructions: stop date 01/20/24. Dx: sacral osteomyelitis. Dose 0.5gm iv ertapenem with HD on Mon, , and . Dose 1gm iv erta with HD on Fridays. weekly bmp, cbc, LFT, vanc trough, and esr. Fax to [phone]. vancomycin 1,000 mg recon soln 750 mg IV .see below Qty: 23 0RF Rx Instructions: stop date 01/20/24. Dx: sacral osteomyelitis. Dose 750gm iv vancomycin with HD on Sat, , and . Dose 1gm iv vanc with HD on Fridays. weekly bmp, cbc, LFT, vanc trough, and esr. Fax to [phone]. Referrals / Follow Up: Vanessa Hutchins MD [Primary Care Provider] - Disposition Disposition (needs filled in before D/C Order can be placed): [facility]
[2024-01-03] MEDS: APIXABAN 5 MG TABLET PO (10:55)
[2024-01-03] MEDS: 0.9% Normal Saline (1000mL) 1,000 ML 60 ML IV (11:07)
[2024-01-03] MEDS: Pantoprazole Sodium 40 MG in 0.9% Normal Saline (100mL MB+) 100 ML 330 MG IV (11:07)
[2024-01-03] MEDS: 0.9% Saline Lock 10 ML Syringe IV (11:07)
[2024-01-03] MEDS: HYDROmorphone 0.5 MG/0.5 ML SYRINGE IV (11:12)
--- NOTE | 2024-01-03 11:14 | DS.PCM_ITS ---
Providers Date of Admission: 12/30/23 Primary Care Physician: Dr. Vanessa Hutchins MD Consultations 12/30/23 17:28 Consult: Hospitalist Routine Consulting Provider: Coy Wayne Reason for Consult: medical management EMERGENT Consult: No Notified: Yes Date Notified: 12/30/23 Time Notified: 17:28 Method of Notification: Verbal Consult: Nephrology Routine Consulting Provider: Ansley Peña Reason for Consult: dialysis EMERGENT Consult: No Notified: Yes Date Notified: 12/31/23 Time Notified: 08:13 Method of Notification: Answering Service 12/30/23 19:05 Consult: Railroad Maintenance Clerk / Pulmonary Medicine Routine Consulting Provider: Intensivists/Pulmonary Med Reason for Consult: ICU care EMERGENT Consult: No Notified: Yes Date Notified: 12/30/23 Time Notified: 21:16 Method of Notification: Verbal 12/30/23 19:27 Consult: Infectious Disease Routine Consulting Provider: Jabari Medeiros Reason for Consult: patient known to you, iv abx at halfway EMERGENT Consult: No Notified: Yes Date Notified: 12/31/23 Time Notified: 08:08 Method of Notification: Answering Service Consult: Onc/Wound/station cashier Routine Comment: Reason for Consult:: decubitus ulcer bleed Reason For Visit: BLEEDING WOUND Diagnosis Discharge Diagnosis (1) Hemorrhagic shock: Status: Acute Code(s): R57.8 - Other shock (2) Anemia due to acute blood loss: Status: Acute Code(s): D62 - Acute posthemorrhagic anemia (3) History of deep vein thrombosis: Status: Acute Code(s): Z86.718 - Personal history of other venous thrombosis and embolism Plan The patient is going to have dialysis today. I am resuming his Eliquis this morning. Hemoglobin is pending. As long as he tolerates dialysis and dressing change after the Eliquis is started I will likely get him to his halfway this afternoon. Humberto Garcia MD Pager: [facility] [address] [place] [address], [address] [place] [address] Office: Medications at Discharge Home Medications acetaminophen 325 mg tablet 650 mg PO Q4H PRN PAIN/FEVER 01/02/23 apixaban 5 mg tablet (Eliquis) 5 mg PO BID blood thinner 01/02/23 ascorbic acid (vitamin C) 500 mg tablet 500 mg PO QHS supplement 01/02/23 atorvastatin 40 mg tablet 40 mg PO QHS hypercholestremia 01/02/23 bisacodyl 10 mg rectal suppository 10 mg [place] DAILY PRN Constipation 01/02/23 carvedilol 12.5 mg tablet 12.5 mg PO .BID CM HYPERTENSION 01/02/23 clotrimazole-betamethasone 1 %-0.05 % topical cream 1 applic topical QHS rash 01/02/23 dextrose 40 % oral gel (Glucose Gel) 15 g PO Q15M PRN Hypoglycemia 01/02/23 hydralazine 25 mg tablet 50 mg PO Q8 hypertension 01/02/23 insulin glargine 100 unit/mL (3 mL) subcutaneous pen (Lantus Solostar U-100 Insulin) 11 unit subcut 1700 diabetes 01/02/23 insulin lispro 100 unit/mL subcutaneous pen (Humalog KwikPen (U-100) Insulin) 6 unit subcut QHS diabetes 01/02/23 midodrine 10 mg tablet 10 mg PO MOTUTHFR DIALYSIS 01/02/23 ondansetron HCl 4 mg tablet 4 mg PO Q8H PRN PRN Nausea 01/02/23 pantoprazole 40 mg tablet,delayed release 40 mg PO DAILY gerd 01/02/23 polyethylene glycol 3350 17 gram oral powder packet 17 g PO DAILY PRN constipation 01/02/23 promethazine 12.5 mg tablet 12.5 mg PO Q8H PRN Nausea 01/02/23 sennosides 8.6 mg-docusate sodium 50 mg capsule (Senna Plus) 1 tab-cap PO BID Constipation 01/02/23 tacrolimus 1 mg capsule, immediate-release (Prograf) 2 mg PO Q12H immunosuppressive 01/02/23 trazodone 50 mg tablet 150 mg PO QHS insomnia 01/02/23 calcitriol 0.5 mcg capsule 1.25 mcg PO DAILY esrd 04/21/23 gabapentin 100 mg capsule 200 mg PO BID PHANTOM PAIN 04/21/23 sevelamer HCl 800 mg tablet 2,400 mg PO TIDCM ESRD 04/21/23 levothyroxine 150 mcg tablet 150 mcg PO DAILY@0600 hypothyroidism 07/16/23 oxycodone 10 mg tablet 10 mg PO Q4H PRN pain 2 days #12 tabs 07/19/23 acetaminophen 650 mg rectal suppository 650 mg [place] Q4H PRN fever or pain 08/06/23 glucagon 1 mg injection kit 1 mg subcut X1 PRN hypoglycemia 08/06/23 magnesium hydroxide 400 mg/5 mL oral suspension (Milk of Magnesia) 30 ml PO DAILY PRN constipation 08/06/23 ciclopirox 8 % topical solution 1 applic topical QHS nail fungus 11/17/23 insulin lispro 100 unit/mL subcutaneous pen (Humalog KwikPen (U-100) Insulin) 9 unit subcut DAILY diabetes 11/17/23 diphenhydramine-zinc acetate 2 %-0.1 % topical cream (Benadryl Extra Strength) 1 applic topical Q6H PRN PRN itching 12/06/23 oxycodone-acetaminophen 5 mg-325 mg tablet (Percocet) 1 tab PO BID PRN pain (scale score 7-10) 7 days #10 tabs 12/12/23 escitalopram oxalate 10 mg tablet (Lexapro) 15 mg PO QHS depression 12/30/23 ertapenem 1 gram solution for injection 0.5 g IV DAILY #16 ea 01/02/24 vancomycin 1 gram/200 mL in 0.9 % sod. chloride intravenous piggyback 1 g (200 mL) IV .see below 16 days 01/02/24 Hospital Course Summary of Care Provided Hospital Course: The patient was brought to the ER by EMS and extremis. He was hypotensive and bleeding from the wound on his left ischial area that was debrided a month ago. The patient was emergently resuscitated and taken to the operating room for cessation of bleeding and cauterization. Following this he was brought up to the intensive care unit where he was transfused. Patient with her dialysis as well as IV antibiotics per ID. Medications were managed by the hospitalist team. Patient is now ready to be discharged home to the [facility]. Patient will follow-up with Dr. Villagran for his wound care. Weight / BMI Weight Weight: 316 lb 9.341 oz Body Mass Index (BMI) 42.8 ABG / Lab / Microbiology Data 01/02/24 07:33 01/02/24 07:33 Laboratory: Laboratory Results - last 24 hr 12/31/23 00:10: Diff Path Review Reviewed 12/31/23 05:07: Diff Path Review Reviewed 01/02/24 16:16: POC Glucose 130 H 01/02/24 22:34: POC Glucose 101 01/03/24 06:45: POC Glucose 95 Microbiology: Microbiology 12/31/23 11:50 Urine Catheter - Catheter Urine Culture - Final Pseudomonas aeruginosa D/C Instructions Discharge Diet: Carb Control Diet Discharge Activity: Return to Normal Activity Call your doctor if your incision/area has: Continuous Slow Oozing, Sudden Increased Bleeding, Increased Pain/ Swelling, Increased Redness, Foul Smelling Discharge and Swelling at the incision site Change Dressing in: 1 day (Change packing twice daily) Cleanse incision/area with: Soap & Water Please Follow Up With: Yusuf Villagran MD Meaningful Use Info Meaningful Use Meaningful Use Diagnoses (Choose all that apply): None applicable Ischemic Stroke Statin Dosing Therapy Reference: STATIN DOSE THERAPY REFERENCE: * Patients > 75 years receive moderate or high dose statin therapy. * Patients 75 years or YOUNGER should receive HIGH intensity statin dose unless contraindicated. You will be required to document reason for non-treatment if statin daily dose does not meet guidelines. HIGH DOSE STATIN THERAPY DAILY Atorvastatin > than or = to 40 mg Rosuvastatin > than or = to 20 mg Amlodipine + Atorvastatin > than or = to 2.5/40 mg Ezetimibe + Simvastatin 10/80 mg Simvastatin 80mg Discharge Plan Admission Admit Date/Time: 12/30/23 19:15 Attending Provider: Humberto Garcia Primary Care Provider: Vanessa Hutchins Consulting Providers: Coy Wayne; Jabari Medeiros; Ansley Peña; Denver Saunders Discharge Orders/Prescriptions Prescriptions: New ertapenem 1 gram recon soln 0.5 g IV DAILY Qty: 16 0RF Rx Instructions: stop date 01/20/24. Dx: sacral osteomyelitis. Dose 0.5gm iv ertapenem with HD on Mon, , and . Dose 1gm iv erta with HD on Fridays. weekly bmp, cbc, LFT, vanc trough, and esr. Fax to [phone]. vancomycin in 0.9 % sodium chl 1 gram/200 mL piggyback 1 g IV .see below 16 Days Rx Instructions: stop date 01/20/24. Dx: sacral osteomyelitis. Dose 750gm iv vancomycin with HD on Sat, , and . Dose 1gm iv vanc with HD on Fridays. weekly bmp, cbc, LFT, vanc trough, and esr. Fax to [phone]. Continued atorvastatin 40 mg Tablet 40 mg PO QHS acetaminophen 325 mg Tablet 650 mg PO Q4H PRN (Reason: PAIN/FEVER) carvedilol 12.5 mg Tablet 12.5 mg PO .BID CM Rx Instructions: must administer with a meal/food ascorbic acid (vitamin C) 500 mg Tablet 500 mg PO QHS bisacodyl 10 mg Suppository 10 mg [place] DAILY PRN (Reason: Constipation) dextrose [Glucose Gel] 40 % Gel 15 g PO Q15M PRN (Reason: Hypoglycemia) Rx Instructions: until symptoms of low blood sugar are controlled insulin lispro [Humalog KwikPen Insulin] 100 unit/mL Insulin Pen 6 unit SUBCUT QHS Eliquis 5 mg Tablet 5 mg PO BID trazodone 50 mg Tablet 150 mg PO QHS hydralazine 25 mg Tablet 50 mg PO Q8 pantoprazole 40 mg Tablet,Delayed Release (Dr/Ec) 40 mg PO DAILY Rx Instructions: in am clotrimazole-betamethasone 1-0.05 % Cream 1 applic TOPICAL QHS Rx Instructions: apply to face tacrolimus [Prograf] 1 mg Capsule 2 mg PO Q12H midodrine 10 mg Tablet 10 mg PO MOTUTHFR Rx Instructions: TAKE 1 TAB BY MOUTH EVERY SATURDAY, SATURDAY, SATURDAY, AND SATURDAY for hypotension prior to dialysis Hold BP >130/90 insulin glargine [Lantus Solostar U-100 Insulin] 100 unit/mL (3 mL) Insulin Pen 11 unit SUBCUT 1700 polyethylene glycol 3350 17 gram Powder In Packet 17 g PO DAILY PRN (Reason: constipation) promethazine 12.5 mg Tablet 12.5 mg PO Q8H PRN (Reason: Nausea) ondansetron HCl 4 mg Tablet 4 mg PO Q8H PRN PRN (Reason: Nausea) Senna Plus 8.6-50 mg Capsule 1 tab-cap PO BID calcitriol 0.5 mcg capsule 1.25 mcg PO DAILY Patient Comments: MAR STATES THAT PT TAKES IN THE MORNING gabapentin 100 mg capsule 200 mg PO BID sevelamer HCl 800 mg tablet 2,400 mg PO TIDCM Rx Instructions: must administer with a meal/food levothyroxine 150 mcg tablet 150 mcg PO DAILY@0600 Patient Comments: MAR STATES PT TAKES IN THE AM oxycodone 10 mg tablet 10 mg PO Q4H PRN (Reason: pain) 2 Days Qty: 12 0RF acetaminophen 650 mg suppository 650 mg [place] Q4H PRN (Reason: fever or pain) magnesium hydroxide [Milk of Magnesia] 400 mg/5 mL suspension 30 ml PO DAILY PRN (Reason: constipation) glucagon 1 mg kit 1 mg subcut X1 PRN (Reason: hypoglycemia) Benadryl Extra Strength 2-0.1 % cream 1 applic topical Q6H PRN PRN (Reason: itching) oxycodone-acetaminophen [Percocet] 5-325 mg tablet 1 tab PO BID PRN (Reason: pain (scale score 7-10)) 7 Days Qty: 10 0RF ciclopirox 8 % solution 1 applic topical QHS Rx Instructions: right thumb insulin lispro [Humalog KwikPen Insulin] 100 unit/mL insulin pen 9 unit subcut DAILY Rx Instructions: in am escitalopram oxalate [Lexapro] 10 mg tablet 15 mg PO QHS Discontinued acetaminophen 500 mg Tablet 1,000 mg PO TID ertapenem 1 gram Recon Soln 0.5 g IV Q24 Qty: 23 0RF Rx Instructions: stop date 01/20/24. Dx: sacral osteomyelitis. Dose 0.5gm iv ertapenem with HD on Sat, , and . Dose 1gm iv erta with HD on Fridays. weekly bmp, cbc, LFT, vanc trough, and esr. Fax to [phone]. vancomycin 1,000 mg recon soln 750 mg IV .see below Qty: 23 0RF Rx Instructions: stop date 01/20/24. Dx: sacral osteomyelitis. Dose 750gm iv vancomycin with HD on Sat, , and . Dose 1gm iv vanc with HD on Fridays. weekly bmp, cbc, LFT, vanc trough, and esr. Fax to [phone]. Referrals / Follow Up: Vanessa Hutchins MD [Primary Care Provider] - Disposition Disposition (needs filled in before D/C Order can be placed): [facility]
--- NOTE | 2024-01-03 11:29 | CASEMGMT ---
Social Work Per physician, pt is ready for discharge today to return to [facility]. DC surveyor instrument assistant notified and to complete dc. Disposition: Return to [facility], skilled level of care DAMARI Hernandez
--- NOTE | 2024-01-03 11:33 | PCM.PN.REN ---
Subjective Subjective No new complaints Objective Data Objective Data Vital Signs: Vital Signs Temp Pulse Resp BP Pulse Ox O2 Del Method O2 Flow Rate 98.4 F 80 18 155/44 H 100 Nasal Cannula 2 01/03/24 08:35 01/03/24 08:35 01/03/24 08:35 01/03/24 08:35 01/03/24 08:35 01/03/24 11:04 01/03/24 11:04 Oxygen Flow Rate (L/min) 2 Oxygen Delivery Method Nasal Cannula Weight: 143.6 kg Body Mass Index (BMI) 42.8 Intake & Output: Intake and Output for Last 24 Hours 01/01/24 01/02/24 01/03/24 23:59 23:59 23:59 Intake Total 2960 / 2960 1560 / 1560 998 / 998 Output Total 3070 / 3070 110 / 110 20 / 20 Balance -110 / -110 1450 / 1450 978 / 978 Lab / Micro Data 01/02/24 07:33 01/02/24 07:33 Labs: Laboratory Results - last 24 hr 12/31/23 00:10: Diff Path Review Reviewed 12/31/23 05:07: Diff Path Review Reviewed 01/02/24 16:16: POC Glucose 130 H 01/02/24 22:34: POC Glucose 101 01/03/24 06:45: POC Glucose 95 Micro: Microbiology 12/31/23 11:50 Urine Catheter - Catheter Urine Culture - Final Pseudomonas aeruginosa Physical Exam Narrative Alert awake oriented x 3 no obvious distress no pallor no icterus no JVD s1s2 no murmurs lungs clear abdomen soft no organomegaly Assessment & Plan Assessment/Plan (1) End stage renal disease: PLAN: Plan ESRD. On hemodialysis at the long-term 4 times a week. Hyperkalemia. HD on 2k bath. improved Discharge back to long-term today
--- NOTE | 2024-01-03 11:36 | PHA.DC_ITS ---
Pharmacy MA Med Reconciliation Pharmacy Service has performed discharge medication reconciliation for this patient upon transfer to [facility]. The patient's discharge medication list was reviewed for discrepancies and discrepancies were resolved. Medications at Discharge Home Medications acetaminophen 325 mg tablet 650 mg PO Q4H PRN PAIN/FEVER 01/02/23 apixaban 5 mg tablet (Eliquis) 5 mg PO BID blood thinner 01/02/23 ascorbic acid (vitamin C) 500 mg tablet 500 mg PO QHS supplement 01/02/23 atorvastatin 40 mg tablet 40 mg PO QHS hypercholestremia 01/02/23 bisacodyl 10 mg rectal suppository 10 mg NJ DAILY PRN Constipation 01/02/23 carvedilol 12.5 mg tablet 12.5 mg PO .BID CM HYPERTENSION 01/02/23 clotrimazole-betamethasone 1 %-0.05 % topical cream 1 applic topical QHS rash 01/02/23 dextrose 40 % oral gel (Glucose Gel) 15 g PO Q15M PRN Hypoglycemia 01/02/23 hydralazine 25 mg tablet 50 mg PO Q8 hypertension 01/02/23 insulin glargine 100 unit/mL (3 mL) subcutaneous pen (Lantus Solostar U-100 Insulin) 11 unit subcut 1700 diabetes 01/02/23 insulin lispro 100 unit/mL subcutaneous pen (Humalog KwikPen (U-100) Insulin) 6 unit subcut QHS diabetes 01/02/23 midodrine 10 mg tablet 10 mg PO MOTUTHFR DIALYSIS 01/02/23 ondansetron HCl 4 mg tablet 4 mg PO Q8H PRN PRN Nausea 01/02/23 pantoprazole 40 mg tablet,delayed release 40 mg PO DAILY gerd 01/02/23 polyethylene glycol 3350 17 gram oral powder packet 17 g PO DAILY PRN constipation 01/02/23 promethazine 12.5 mg tablet 12.5 mg PO Q8H PRN Nausea 01/02/23 sennosides 8.6 mg-docusate sodium 50 mg capsule (Senna Plus) 1 tab-cap PO BID Constipation 01/02/23 tacrolimus 1 mg capsule, immediate-release (Prograf) 2 mg PO Q12H immunos uppressive 01/02/23 trazodone 50 mg tablet 150 mg PO QHS insomnia 01/02/23 calcitriol 0.5 mcg capsule 1.25 mcg PO DAILY esrd 10/15/23 gabapentin 100 mg capsule 200 mg PO BID PHANTOM PAIN 04/21/23 sevelamer HCl 800 mg tablet 2,400 mg PO TIDCM ESRD 04/21/23 levothyroxine 150 mcg tablet 150 mcg PO DAILY@0600 hypothyroidism 07/16/23 oxycodone 10 mg tablet 10 mg PO Q4H PRN pain 2 days #12 tabs 07/19/23 acetaminophen 650 mg rectal suppository 650 mg NJ Q4H PRN fever or pain 08/06/23 glucagon 1 mg injection kit 1 mg subcut X1 PRN hypoglycemia 08/06/23 magnesium hydroxide 400 mg/5 mL oral suspension (Milk of Magnesia) 30 ml PO DAILY PRN constipation 08/06/23 ciclopirox 8 % topical solution 1 applic topical QHS nail fungus 11/17/23 insulin lispro 100 unit/mL subcutaneous pen (Humalog KwikPen (U-100) Insulin) 9 unit subcut DAILY diabetes 11/17/23 diphenhydramine-zinc acetate 2 %-0.1 % topical cream (Benadryl Extra Strength) 1 applic topical Q6H PRN PRN itching 12/06/23 oxycodone-acetaminophen 5 mg-325 mg tablet (Percocet) 1 tab PO BID PRN pain (scale score 7-10) 7 days #10 tabs 12/12/23 escitalopram oxalate 10 mg tablet (Lexapro) 15 mg PO QHS depression 12/30/23 ertapenem 1 gram solution for injection 0.5 g IV DAILY #16 ea 01/02/24 vancomycin 1 gram/200 mL in 0.9 % sod. chloride intravenous piggyback 1 g (200 mL) IV .see below 16 days 01/02/24
[2024-01-03 11:56] LABS: Bedside Glucose 92 mg/dL (74-106)
--- NOTE | 2024-01-03 11:58 | CASEMGMT ---
Discharge Planning Discharge orders, signed med list, and transport time sent to [facility] via [facility]. Physicians will transport patient by cot at 5p. Nursing, SW, and patient updated. VM left for patients brother (Abraham). Selina Sylvester DC Planning Asst.
[2024-01-03 12:40] LABS: Absolute Lymphocyte Count 1.67 X10^3/uL (0.83-4.51); Absolute Neutrophil Count 6.7 X10^3/uL (2.0-7.7); Basophil# 0.06 X10^3/uL; Basophil% 0.6 % (0-1); Eosinophil# 0.39 X10^3/uL; Hematocrit 23.8 % (40-54); Hemoglobin 7.3 g/dL (13.0-16.5); Lymphocyte # 1.67 X10^3/ul (0.83-4.51); Mean Corp Hgb Conc 30.7 g/dL (32-36); Mean Corpuscular Hgb 29.2 pg (27.0-32.0); Mean Corpuscular Volume 95.2 fL (80-94); Mean Platelet Vol. 10.1 fl (6.2-12.0); Monocyte# 0.94 X10^3/uL; Monocyte% 9.6 % (0-10); NRBC Flagged by Analyzer 0 % (0-5); Neutrophil % 68.2 % (47-70); Platelet Count 236 K/mm3 (150-450); RBC Distribution Width CV 14.7 % (11.6-14.6); RBC Distribution Width SD 51.4 fl (35.1-43.9); White Blood Count 9.8 K/mm3 (4.4-11.0)
[2024-01-03] MEDS: PureFlow B 2K Dialysis Soln 1 BAG 6 BAG PF (12:45)
[2024-01-03] MEDS: 0.9% Normal Saline 1,000 ML IV.SOLN. 1000 ML OPERA.SITE (12:45)
[2024-01-03 13:14] LABS: Vitamin B12 1147 pg/mL (211-911)
[2024-01-03 13:33] LABS: Anion Gap 7 (5-15); BUN 49 mg/dL (7-18); BUN/Creat Ratio 5.3 RATIO (10-20); Calcium,Total 8.7 mg/dL (8.5-10.1); Chloride 104 mmol/L (98-107); Creatinine, Serum 9.28 mg/dL (0.70-1.30); EST Glomerular Filtration Rate 7 mL/min (>60); Est Glom Filt Rate - Afr Amer 8 mL/min (>60); Estimated Creatinine Clearance 16.19 ml/min; Glucose 110 mg/dL (74-106); Potassium 4.5 mmol/L (3.5-5.1); Sodium Level 137 mmol/L (136-145)
--- NOTE | 2024-01-03 15:27 | PN.HOSP_ITS ---
Reason for Visit Reason for Visit: Diagnoses Acute posthemorrhagic anemia (12/30/23) Anemia in chronic kidney disease (12/30/23) Type 2 diabetes mellitus without complications (12/30/23) Hypotension, unspecified (12/30/23) Osteomyelitis, unspecified (12/30/23) End stage renal disease (12/30/23) Other shock (12/30/23) Unspecified open wound of left buttock, initial encounter (12/30/23) MCC (current) use of 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 (12/30/23) Personal history of pulmonary embolism (12/30/23) Personal history of other venous thrombosis and embolism (12/30/23) Dependence on renal dialysis (12/30/23) Objective Data Objective Data Vital Signs: Vital Signs Temp Pulse Resp BP Pulse Ox O2 Del Method O2 Flow Rate 97.6 F L 84 14 96/50 L 96 Nasal Cannula 2 01/03/24 11:10 01/03/24 15:01 01/03/24 15:01 01/03/24 15:01 01/03/24 11:10 01/03/24 15:01 01/03/24 15:01 Oxygen Flow Rate (L/min) 2 Oxygen Delivery Method Nasal Cannula Weight: 316 lb 9.341 oz Body Mass Index (BMI) 42.8 Intake & Output: Intake and Output for Last 24 Hours 01/01/24 01/02/24 01/03/24 23:59 23:59 23:59 Intake Total 2960 / 2960 1560 / 1560 1108 / 1108 Output Total 3070 / 3070 110 / 110 20 / 20 Balance -110 / -110 1450 / 1450 1088 / 1088 Lab / Micro Data 01/03/24 12:20 01/03/24 12:20 Labs: Laboratory Results - last 24 hr 01/02/24 16:16: POC Glucose 130 H 01/02/24 22:34: POC Glucose 101 01/03/24 06:45: POC Glucose 95 01/03/24 11:27: POC Glucose 92 01/03/24 12:20: WBC 9.8, RBC 2.50 L, Hgb 7.3 L, Hct 23.8 L, MCV 95.2 H D, MCH 29.2, MCHC 30.7 L D, RDW Std Deviation 51.4 H, RDW Coeff of Shanta 14.7 H, Plt Count 236, MPV 10.1, Immature Gran % (Auto) 0.600, Neut % (Auto) 68.2, Lymph % (Auto) 17.0 L, Drew % (Auto) 9.6, Eos % (Auto) 4.0, Baso % (Auto) 0.6, Absolute Neuts (auto) 6.7, Absolute Lymphs (auto) 1.67, Nucleated RBC % 0, Sodium 137, Potassium 4.5, Chloride 104, Carbon Dioxide 26.0, Anion Gap 7, BUN 49 H, C reatinine 9.28 H*, Estim Creat Clear Calc 16.19, Est GFR (MDRD) Af Amer 8 L, Est GFR (MDRD) Non-Af 7 L, BUN/Creatinine Ratio 5.3 L, Glucose 110 H, Calcium 8.7, V itamin B12 1147 H, Folate 4.90 Micro: Microbiology 12/31/23 11:50 Urine Catheter - Catheter Urine Culture - Final Pseudomonas aeruginosa Physical Exam Narrative Seen and examined. No acute change. Hemoglobin 7.3. No active bleeding from sacral decubitus ulcer which looks clean. General: Alert, Oriented x3, Cooperative. Morbid obesity 43.9 kg/m?. HEENT: Atraumatic, PERRLA, EOMI, Normocephalic Oral: No Gingival or Mucosal Lesions/ Ulcerations Neck: Supple, No JVD, Negative Carotid Bruits Chest wall/Lungs: Air entry diminished in bilateral lung bases. No crepitation/rhonchi Cardiovascular: Regular rate, Regular Rhythm, Normal S1, Normal S2, No M/G/R Abdomen: Bowel Sounds Present, Soft, Non Tender, Non-Distended : On hemodialysis. No dysuria. No renal angle tenderness. No suprapubic tenderness. Extremities: No edema, Capillary Refill Less than 3 Seconds Skin: Left ischeal decubitus ulcer with active bleeding. Granulation tissue in wound photo Musculoskeletal: Left above-knee amputation. Right foot lateral 2 toes amputated. No Tenderness to Palpation of Joints or Extremities Neurological: Cranial nerves II-XII grossly intact, DTR 2+/4. No acute focal neurological deficit. Psych/Mental Status: Normal Affect, Appropriate. Assessment & Plan Assessment/Plan (1) Anemia due to acute blood loss: (2) Osteomyelitis of pelvic region: (3) Open wound of left buttock without complication: QUALIFIERS: Encounter type: initial encounter Qualified Code(s): S31.829A - Unspecified open wound of left buttock, initial encounter (4) Acute hypotension: PLAN: Plan Patient is a 38-year-old male who presented to [facility] ED on 12/30/2023 for a bleeding decubitus ulcer. Admitted to the general surgery service, medicine consulted for medical management. 1. Acute blood loss anemia with hypotension secondary to acute bleed from severe chronic left ischial tuberosity wound with osteomyelitis, improved; history of anemia of chronic disease ? General surgery primary. ID following. Wound care following. Had known osteomyelitis of pelvic region with wound, s/p I&D down to bone on 12/[address] Villagran. Wound cultures grew Proteus and Enterococcus. Was started on IV vancomycin and ertapenem with plan for 6 weeks of IV antibiotics dosed with HD, along with daily labs. Per ID, will continue with this plan. S/p wound irrigation and washout with packing on 12/29. Hemoglobin 6.9 on admit, down from 7.9 four days earlier; baseline appears to be around 8-9. S/p 2 units of packed red blood cells on admit. Hemoglobin 7.4 postoperatively and remained stable at 7.3 on morning of 12/30. Repeat hemoglobin 6.3 on 12/31, s/p 2 more units of packed red blood cells ordered, hemoglobin recheck pending. Monitor daily CBC. 01/01: Left ischial wound reviewed. Pinkish granulation tissue with deep tunnel. No active bleeding. Hemoglobin 7.7. Severe anemia 01/02: Hemoglobin 7.3, hematocrit 23.8%. Mildly macrocytic. B12 1147. Folate level normal. Therefore probably anemia from CKD/ESRD. Follow-up with tool crib supervisor. 2. ESRD on HD ? Nephrology following. HD per nephrology recommendations. Continue home calcitriol and sevelamer. 3. Type 2 diabetes mellitus ? Home regimen of Lantus 11 units at night and Humalog 9 units with morning meal and 6 units with evening meal. Continue home Lantus 11 units at night and sliding scale insulin with meals for now, adjust as needed. 4. Hypertension ? Holding home Coreg and hydralazine for now. 5. History of VTE on Eliquis ? Holding home Eliquis for now. Chronic medical conditions: ? Morbid obesity: BMI 41 on admit. Complicates hospital course, care and prognosis. ? Hyperlipidemia: Continue home statin. ? Depression/insomnia: Stable. Continue home escitalopram and trazodone at night. ? GERD: Continue home PPI. ? S/p LLE amputation with phantom pain: Continue home gabapentin. ? Hypothyroidism: Continue home Synthroid. Charges/Coding Visit Charges Inpatient E&M: 67781 Subs Hosp L2
[2024-01-03] MEDS: Ertapenem Sod 0.5 GM in 0.9% Normal Saline (50mL Bag) 50 ML IV (16:05)
== END 2024-01-03 16:56 | disposition skilled nursing facility (03) | DRG 907 ==
LOC: ED 17:19 → SDC 17:20 → ACINP 17:20 → SDC 19:25 → ICU 19:26 → MS3 01-02 07:09
PROVIDERS: Hospitalist; Internal Medicine; Internal Medicine Pulmonary Disease; Physician Assistant; Admitting Provider Surgery; Emergency Provider Emergency Medicine; PCP Internal Medicine; Visit Provider Surgery
PROC: 0Y310ZZ Control Bleeding in Left Buttock, Open Approach (ICD-10-PCS; principal; 2023-12-30 18:00)
DX: L76.21 Postprocedural hemorrhage of skin and subcutaneous tissue following a dermatologic procedure (principal); R57.8 Other shock; L89.154 Pressure ulcer of sacral region, stage 4; N18.6 End stage renal disease; G82.20 Paraplegia, unspecified; I12.0 Hypertensive chronic kidney disease with stage 5 chronic kidney disease or end stage renal disease; M86.8X5 Other osteomyelitis, thigh; Z68.41 Body mass index [BMI] 40.0-44.9, adult; D62 Acute posthemorrhagic anemia; D63.1 Anemia in chronic kidney disease; E11.22 Type 2 diabetes mellitus with diabetic chronic kidney disease; E66.01 Morbid (severe) obesity due to excess calories; Z79.4 Long term (current) use of insulin; Z89.512 Acquired absence of left leg below knee; E11.69 Type 2 diabetes mellitus with other specified complication; E03.9 Hypothyroidism, unspecified; F32.A Depression, unspecified; I95.9 Hypotension, unspecified; Z99.2 Dependence on renal dialysis; E78.5 Hyperlipidemia, unspecified; K21.9 Gastro-esophageal reflux disease without esophagitis; G47.33 Obstructive sleep apnea (adult) (pediatric); E87.5 Hyperkalemia; Z79.891 Long term (current) use of opiate analgesic; Z79.01 Long term (current) use of 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; Z79.890 Hormone replacement therapy; Z86.718 Personal history of other venous thrombosis and embolism; Z86.711 Personal history of pulmonary embolism; Z86.14 Personal history of Methicillin resistant Staphylococcus aureus infection
CPT/HCPCS: 36415; 51702; 71045; 80048; 80202; 82607; 82746; 82962; 83605; 84484; 85025; 85027; 85610; 85730; 86850; 86900; 86901; 86920; 86922; 87077; 87086; 87088; 87184; 87186; 90937; 93005; 94762; 99285; A4648; J7030; J7040; J7050; P9016; A4216; C9159; G0257; J2405; J3490

== ENCOUNTER → 2023-12-30 | Outpatient (REF) | payer MEDICARE, MEDICAID, SELFPAY ==
[2023-12-30 08:55] LABS: Vancomycin, Trough Level 15.3 ug/mL (5.0-15.0)
== END ==
LOC: OLS.SW 06:45
PROVIDERS: PCP Internal Medicine; Visit Provider Internal Medicine
DX: T14.8XXA Other injury of unspecified body region, initial encounter (principal)
CPT/HCPCS: 80202; J2405

== ENCOUNTER 2024-01-20 08:51 | Outpatient (RCR) | payer MEDICARE, MEDICAID, SELFPAY ==
[2024-01-06 00:40] VITALS: BP 188/85; PULSE 90; RESP 20; TEMP 36.8; BMI 41.1
[2024-01-20 08:34] VITALS: BP 145/48; PULSE 75; RESP 18; TEMP 36.1; BMI 41.1
--- NOTE | 2024-01-20 09:16 | PCM.WC.PN ---
History of Present Illness Date of Service: 01/20/24 Chief Complaint: Left ischial ulcer and left AKA stump wound History of Wound: 38 year old male has a chronic ulcer of his left ischium. He was admitted at [facility] from 07/16/23 to 07/19/23 for a cough, fever and chills. Patient was admitted for acutely infected chronic left ischial/sacral wound with concern for osteomyelitis, started on IV antibiotics. He has a history of ESRD on hemodialysis. History of failed kidney transplant, chronic systolic heart failure, hypertension, hyperlipidemia, diabetes mellitus type II, left AKA, and incomplete paraplegia. He resides at [facility] where he receives his hemodialysis. He had an operative debridement of his left ischial ulcer at [facility] 2 years ago, per the patient. CT of abdomen and pelvis on 07/16/23, related to the ulcer showed There is a decubitus ulcer in the left gluteus with extension into and sclerotic and erosive involvement of the left initial tuberosity. This is concerning for osteomyelitis. Ischial wound culture obtained on 07/16/23 which was positive for Proteus mirabilis, Escherichia coli, Enterococcus gallinarum, and MRSA. ID was consulted and he was treated with Vancomycin and Zosyn IV He was discharged on Linezolid and Augmentin and has finished them. He developed a wound on his left AKA stump which is now healed. Left AKA wound culture from 08/22/23 positive for Proteus mirabilis. He was started on Augmentin and has finished them. Left ischial ulcer wound culture from 10/15/23 positive for Proteus mirabilis, MRSA, Enterococcus faecalis, Enterococcus avium Anaerobic cocci. He was treated with Augmentin and Doxycycline. Surgery 12/09/23 - Excision left ischial pressure sore, Stage IV, with partial ostectomy for osteomyelitis. Operative tissue cultures positive for Proteus mirabilis, Enterococcus faecalis, Staphylococcus epidermidis, Prevotella nanceiensis, and Anaerobic cocci. Operative bone cultures positive for Proteus mirabilis, Enterococcus raffinosus, Staphylococcus epidermidis, and Fingodia magna. ID is managing this and he is on 6 weeks of Ertapenem and Vancomycin to be dosed with hemodialysis (MTTF). Surgery 12/30/[address] Garcia for Irrigation and washout of the left buttock ischial wound with packing. Patient was having issues with bleeding. His wound VAC was stopped, he continued to have problems with bleeding, he was sent to the ED where he was evaluated by Dr. Garcia and was immediately taken to the OR. He went to the ICU for Acute blood loss anemia with hypotension and Hemorrhagic shock. He was transfused 4 units of PRBC's. He was transferred back to [facility] on 01/03/24. Today he denies fever, chills, nausea or vomiting. Patient has diabetes mellitus. His last HgbA1c from 08/09/23 is 6.4. For elective surgeries, his HgbA1c needs to be less than 8. Progress of Wound: Left ischial ulcer is stable. He has some very sharp areas on the bone where dressings are getting caught. No active bleeding today. Ulcer is beefy pink with bone exposure. Chelsey wound is clear. Dakin's dressing changes daily due to his recent history of bleeding, the wound VAC was stopped. Objective Data Objective Data Vital Signs: Vital Signs Temp Pulse Resp BP O2 Del Method 96.9 F L 75 18 145/48 H Room Air 01/20/24 08:34 01/20/24 08:34 01/20/24 08:34 01/20/24 08:34 01/20/24 08:34 Oxygen Delivery Method Room Air Weight: 302 lb 12.736 oz Body Mass Index (BMI) 41.1 Charges/Coding Procedures Integumentary 111xxx-113xx: 66035 Global Visit Debridement Note Debridement Note Wound debrided: #1 Left ischial area. Laterality: Left Wound Grade/Stage: IV. Type of Debridement: Excisional debridement Anesthesia Used: 5% Lidocaine Gel Depth: Down to and including healthy tissue, in the subcutaneous layer, to muscle (bone is palpable and not exposed.) and to bone Percentage of wound debrided: 100 Instrument Used: 7mm curette and Forceps (Bone nipper/Rongeur used to remove sharp bone on base of ulcer.) Tissue Removed: subcutaneous tissue, muscle, small pieces sharp bone. Severity: Fat Layer Exposed (muscle is exposed. Bone is palpable and not exposed.) Amount of bleeding with debridement: Mild Bleeding Controlled with: Pressure and Compression and gauze Patient tolerated procedure: Patient tolerated procedure well Post-Debridement Measurements and Additional Note: Post-Debridement Measurements/Treatment WC - Nurse 1 - General Ulcer Assessment Start: 01/20/24 08:34 Freq: Status: Active Protocol: WC.LOWEXT Activity Type Activity Date Activity User E-sign Co-sign Detail Recorded Client Recorded Date Recorded By Document 01/20/24 08:34 KW g 01/20/24 08:41 KW 01/20/24 08:34 WC - Today's Visit Information Type of service Follow-up Visit (Physician/AUDIOVISUAL EQUIPMENT OPERATOR ) Arrival Mode Stretcher Patient Identification Verified (Name & Yes ) Height and Weight Body Mass Index (BMI) 41.1 BMI Classification Obese Vital Signs Temperature (97.8 F-99.1 F) 96.9 F L Temperature Source Temporal Pulse Rate (60-100) 75 Pulse Location Monitor Respiratory Rate (12-18) 18 Respiratory rate source Observation Oxygen Delivery Method Room Air Blood Pressure (90/60-120/80) 145/48 H Blood Pressure Mean (mm Hg) 80 Source Monitor Position Semi-Fowlers Blood Pressure Location Left Arm History Since Last Visit- (Skip if this is Patient's initial visit) Have you changed medications since your No last visit? Any new allergies or adverse reactions No Had a fall/change in ADL's that may No increase risk of falls Signs or symptoms of abuse and/or No neglect since last visit Have you been in the hospital since your Yes last visit? Has dressing in place as prescribed Yes Has compression in place as prescribed N/A Has offloadiing in place as prescribed N/A Experienced any changes in pain level or No management Left Footwear No Footwear Right Footwear No Footwear Pain Scale: 0-10 Numeric Is Patient Pain Free? No LT ISCHIUM -Intensity 9 -Alleviating Factors/Interventions Medication - Nurse 1 - General Ulcer Measurement Start: 01/20/24 08:34 Freq: Status: Active Protocol: Activity Type Activity Date Activity User E-sign Co-sign Detail Recorded Client Recorded Date Recorded By Document 01/20/24 08:34 KW g 01/20/24 08:41 KW 01/20/24 08:34 Wound Center Nurse 1 #5 L Buttocks/ Ischial -Current Size (cm) - Length 4.8 -Current Size (cm) - Width 7 -Current Size (cm) - Depth 7.5 -Total Square Cm 33.6 -Date of Last Picture (Recall this 01/20/24 field) -Exudate Amt Large -Exudate Type Serosanguineous -Wound Margin Distinct, Outline Attached -Granulation Amt Large (67-100%) -Granulation Quality Red -Texture (Chelsey-wound Skin Appearance) Assessed -Moisture (Chelsey-wound Skin Appearance) Assessed -Color (Chelsey-wound Skin Appearance) Assessed -Temperature (Chelsey-wound Skin No Abnormality Appearance) (Pt Warm) -Tenderness on Palpation (Chelsey-wound No Skin Appearance) -Ulcer Cleansing Soap and Water -Foul Odor after Cleansing No -Anesthetic Used 5% Lidocaine Gel WC - Nurse 2 - General Ulcer CM Notes Start: 01/20/24 08:34 Freq: Status: Active Protocol: Activity Type Activity Date Activity User E-sign Co-sign Detail Recorded Client Recorded Date Recorded By Document 01/20/24 08:46 BMF [id number] 01/20/24 09:02 BM 01/20/24 08:46 Wound Center Nurse 2 -Time 08:47 -Correct Patient Yes -Correct Side, Site, Position Yes -Correct Procedure Yes -Procedure Performed Yes -Type of Procedure Debridement -Clinical Debridement Bone -Post Debridement (cm) - Length 6 -Post Debridement (cm) - Width 9 -Post Debridement (cm) - Depth 7.3 -Total Square (Post) (cm) 54 -Area of Debridement (cm) - Length 6 -Area of Debridement (cm) - Width 9 -Total Square (Area) (cm) 54 -Wound/Ulcer Outcome Not Healed -Ulcer Cleansing Rinsed/ Irrigated with Saline -Foul Odor after Cleansing No -Bioengineered Tissue No -Bleeding Controlled with Pressure -Treatment Response Procedure Tolerated Well -Pressure Reduction Specialty bed -Debridement - Bone, 1st 20sq cm Yes -Debridement, Bone, ea addt'l 20sq cm 1 or part thereof Pain Scale: 0-10 Numeric Is Patient Pain Free? Yes WC - Nurse 3 - General Ulcer D/C NN Start: 01/20/24 08:34 Freq: Status: Active Protocol: Activity Type Activity Date Activity User E-sign Co-sign Detail Recorded Client Recorded Date Recorded By Document 01/20/24 09:12 DL ..25.7 01/20/24 09:15 DL 01/20/24 09:12 Wound Care Center Nurse 3 #5 L Buttocks/ Ischial -Ulcer Cleansing Rinsed/ Irrigated with Saline -Foul Odor after Cleansing No -Other Dressing dakins -Primary Dressing Covered/Secured with Dry Gauze, Secured with Tape Treatment Response Procedure Tolerated Well Pain Scale: 0-10 Numeric Is Patient Pain Free? Yes WC - Visit Discharge Discharge Condition Stable Ambulatory Status Stretcher Transportation ECF trans Facility Type Intermediate Care Facility Orders Sent Yes Assessment/Plan Assessment/Plan (1) 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, stage 4: CODE(S): L89.324 - Pressure ulcer of left buttock, stage 4 (2) Ulcer of right foot with fat layer exposed: CODE(S): L97.512 - Non-pressure chronic ulcer of other part of right foot with fat layer exposed (3) Ulcer of right foot due to type 2 diabetes mellitus: CODE(S): E11.621 - Type 2 diabetes mellitus with foot ulcer; L97.519 - Non-pressure chronic ulcer of other part of right foot with unspecified severity (4) Open wound of left buttock without complication: CODE(S): S31.829A - Unspecified open wound of left buttock, initial encounter QUALIFIERS: Encounter type: initial encounter Qualified Code(s): S31.829A - Unspecified open wound of left buttock, initial encounter (5) Chronic kidney disease with end stage renal failure on dialysis: CODE(S): N18.6 - End stage renal disease; Z99.2 - Dependence on renal dialysis (6) DM type 2, goal HbA1c < 7%: CODE(S): E11.9 - Type 2 diabetes mellitus without complications (7) Community acquired MRSA infection: CODE(S): A49.02 - Methicillin resistant Staphylococcus aureus infection, unspecified site PLAN: Plan Patient evaluated at the wound healing center today. He states that he is now seeing a agricultural equipment sales engineer for his right foot ulcers. Wound care - Has been Dakins 0.25% moistened gauze covered with ABD daily to the left ischial ulcer. He has not been having any signs of bleeding, but will hold off on the wound VAC due to his recent hospitalization due to bleeding. Encouraged off loading and not sitting or laying on the ulcer area for long periods of time. If he is up in a wheelchair, he needs to shift/reposition every 10 minutes for 10 seconds. Encouraged increased protein intake to help with wound healing. He would benefit from protein supplementation. He has ESRD and has dialysis M,T,TH,F. He is to have dialysis today when he gets back to his facility. Operative tissue cultures from 12/09/23 were positive for Proteus mirabilis, Enterococcus faecalis, Staphylococcus epidermidis, Prevotella nanceiensis, and Anaerobic cocci. Operative bone cultures from 12/09/23 were positive for Proteus mirabilis, Enterococcus raffinosus, Staphylococcus epidermidis, and Fingodia magna. ID is managing this and he currently is on Ertapenem and Vancomycin. Left ischial wound culture from 07/16/23 showed Proteus mirabilis, E. coli, Enterococcus gallinarum, and MRSA. He was treated with Vancomycin and Zosyn in the hospital. He was discharged on Linezolid and Augmentin' Left AKA wound culture from 08/22/23 positive for Proteus mirabilis. He was started on Augmentin and has finished them. Left ischial ulcer wound culture from 10/15/23 positive for Proteus mirabilis, MRSA, Enterococcus faecalis, Enterococcus avium Anaerobic cocci. He is being treated with Augmentin and Doxycycline. Patient has diabetes mellitus. His HgbA1c from 08/09/23 was 6.4. Followup 2-3 weeks, since I will be out of town in 2 weeks.
--- NOTE | 2024-01-22 08:44 | WC ---
PHOTO 01/20/24 LEFT ISCHIUM
== END 2024-02-05 23:59 | disposition home or self-care (01) ==
LOC: WC 08:51
PROVIDERS: PCP Internal Medicine; Referring Provider Nurse Practitioner Family; Visit Provider Nurse Practitioner Family
DX: L89.324 Pressure ulcer of left buttock, stage 4 (principal); I13.2 Hypertensive heart and chronic kidney disease with heart failure and with stage 5 chronic kidney disease, or end stage renal disease; G82.22 Paraplegia, incomplete; N18.6 End stage renal disease; E11.621 Type 2 diabetes mellitus with foot ulcer; L97.512 Non-pressure chronic ulcer of other part of right foot with fat layer exposed; Z89.612 Acquired absence of left leg above knee; I50.22 Chronic systolic (congestive) heart failure; E11.22 Type 2 diabetes mellitus with diabetic chronic kidney disease; Z79.4 Long term (current) use of insulin; E78.5 Hyperlipidemia, unspecified; Z99.2 Dependence on renal dialysis; Z79.01 Long term (current) use of 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; Z79.899 Other long term (current) drug therapy; Z86.14 Personal history of Methicillin resistant Staphylococcus aureus infection
CPT/HCPCS: 11044; 11047

== ENCOUNTER → 2024-01-20 | Outpatient (REF) | payer MEDICARE, MEDICAID, SELFPAY ==
[2024-01-20 08:27] LABS: Hematocrit 26.3 % (40-54); Mean Corp Hgb Conc 30.4 g/dL (32-36); Mean Corpuscular Hgb 28.2 pg (27.0-32.0); Mean Corpuscular Volume 92.6 fL (80-94); Mean Platelet Vol. 10.8 fl (6.2-12.0); Platelet Count 242 K/mm3 (150-450); RBC Distribution Width CV 14.4 % (11.6-14.6); RBC Distribution Width SD 48.6 fl (35.1-43.9); Red Blood Count 2.84 M/mm3 (4.6-6.2); White Blood Count 9.9 K/mm3 (4.4-11.0)
[2024-01-20 08:35] LABS: Vancomycin, Trough Level 21.5 ug/mL (5.0-15.0)
[2024-01-20 08:55] LABS: Erythrocyte Sedimentation Rate 47 mm/hr (0-20)
[2024-01-20 09:10] LABS: AST(SGOT) 20 U/L (15-37); Alanine Aminotransfer ALT/SGPT 13 U/L (16-61); Albumin, Serum 2.2 g/dL (3.2-5.0); Alkaline Phosphatase 102 U/L (45-117); Anion Gap 10 (5-15); BUN 72 mg/dL (7-18); BUN/Creat Ratio 6.9 RATIO (10-20); Bilirubin, Direct 0.18 mg/dL (0.00-0.30); Calcium,Total 9.1 mg/dL (8.5-10.1); Chloride 98 mmol/L (98-107); EST Glomerular Filtration Rate 6 mL/min (>60); Est Glom Filt Rate - Afr Amer 7 mL/min (>60); Globulin 5.7 g/dL (2.2-4.2); Glucose 139 mg/dL (74-106); Potassium 4.9 mmol/L (3.5-5.1); Protein, Total 7.9 g/dL (6.4-8.2); Sodium Level 134 mmol/L (136-145)
== END ==
LOC: OLS.SW 05:30
PROVIDERS: PCP Internal Medicine; Referring Provider Internal Medicine; Visit Provider Internal Medicine
DX: E11.9 Type 2 diabetes mellitus without complications (principal); L08.9 Local infection of the skin and subcutaneous tissue, unspecified
CPT/HCPCS: 36415; 80048; 80076; 80202; 85027; 85652

== ENCOUNTER → 2024-01-27 | Outpatient (REF) | payer MEDICARE, MEDICAID, SELFPAY ==
[2024-01-27 08:45] LABS: Hematocrit 27.4 % (40-54); Hemoglobin 8.5 g/dL (13.0-16.5); Mean Corpuscular Hgb 28.2 pg (27.0-32.0); Mean Platelet Vol. 10.2 fl (6.2-12.0); Platelet Count 261 K/mm3 (150-450); RBC Distribution Width CV 14.6 % (11.6-14.6); RBC Distribution Width SD 48.2 fl (35.1-43.9); Red Blood Count 3.01 M/mm3 (4.6-6.2); White Blood Count 9.4 K/mm3 (4.4-11.0)
[2024-01-27 08:50] LABS: Erythrocyte Sedimentation Rate 58 mm/hr (0-20)
[2024-01-27 09:11] LABS: AST(SGOT) 16 U/L (15-37); Alanine Aminotransfer ALT/SGPT 12 U/L (16-61); Albumin, Serum 2.3 g/dL (3.2-5.0); Alkaline Phosphatase 104 U/L (45-117); Anion Gap 7 (5-15); BUN 62 mg/dL (7-18); BUN/Creat Ratio 5.7 RATIO (10-20); Bilirubin, Direct 0.16 mg/dL (0.00-0.30); Calcium,Total 9.1 mg/dL (8.5-10.1); Chloride 99 mmol/L (98-107); EST Glomerular Filtration Rate 6 mL/min (>60); Est Glom Filt Rate - Afr Amer 7 mL/min (>60); Glucose 131 mg/dL (74-106); Potassium 4.8 mmol/L (3.5-5.1); Protein, Total 8.3 g/dL (6.4-8.2); Sodium Level 136 mmol/L (136-145)
== END ==
LOC: OLS.SW 06:50
PROVIDERS: PCP Internal Medicine; Referring Provider Internal Medicine Infectious Disease; Visit Provider Internal Medicine Infectious Disease
DX: E11.9 Type 2 diabetes mellitus without complications (principal); Z79.899 Other long term (current) drug therapy; N17.9 Acute kidney failure, unspecified
CPT/HCPCS: 80048; 80076; 85027; 85652

== ENCOUNTER → 2024-02-03 | Outpatient (REF) | payer MEDICARE, MEDICAID, SELFPAY ==
[2024-02-03 08:26] LABS: Vancomycin, Trough Level 5.6 ug/mL (5.0-15.0)
[2024-02-03 08:36] LABS: Erythrocyte Sedimentation Rate 56 mm/hr (0-20)
[2024-02-03 08:38] LABS: Hematocrit 32.2 % (40-54); Mean Corp Hgb Conc 31.1 g/dL (32-36); Mean Corpuscular Hgb 27.9 pg (27.0-32.0); Mean Corpuscular Volume 89.7 fL (80-94); Mean Platelet Vol. 10.3 fl (6.2-12.0); Platelet Count 193 K/mm3 (150-450); RBC Distribution Width SD 48.4 fl (35.1-43.9); Red Blood Count 3.59 M/mm3 (4.6-6.2); White Blood Count 7.1 K/mm3 (4.4-11.0)
[2024-02-03 09:09] LABS: AST(SGOT) 17 U/L (15-37); Alanine Aminotransfer ALT/SGPT 14 U/L (16-61); Albumin, Serum 2.3 g/dL (3.2-5.0); Alkaline Phosphatase 116 U/L (45-117); Anion Gap 7 (5-15); BUN 60 mg/dL (7-18); BUN/Creat Ratio 6.3 RATIO (10-20); Bilirubin, Direct 0.15 mg/dL (0.00-0.30); Calcium,Total 9.2 mg/dL (8.5-10.1); Chloride 100 mmol/L (98-107); Creatinine, Serum 9.58 mg/dL (0.70-1.30); EST Glomerular Filtration Rate 7 mL/min (>60); Est Glom Filt Rate - Afr Amer 8 mL/min (>60); Globulin 5.8 g/dL (2.2-4.2); Glucose 215 mg/dL (74-106); Potassium 4.9 mmol/L (3.5-5.1); Protein, Total 8.1 g/dL (6.4-8.2); Sodium Level 137 mmol/L (136-145)
== END ==
LOC: OLS.SW 05:00
PROVIDERS: PCP Internal Medicine; Visit Provider Internal Medicine Infectious Disease
DX: E11.9 Type 2 diabetes mellitus without complications (principal); I10 Essential (primary) hypertension
CPT/HCPCS: 80048; 80076; 80202; 85027; 85652

== ENCOUNTER → 2024-02-10 | Outpatient (REF) | payer MEDICARE, MEDICAID, SELFPAY ==
[2024-02-10 09:07] LABS: Vancomycin, Trough Level 3.7 ug/mL (5.0-15.0)
[2024-02-10 09:15] LABS: AST(SGOT) 15 U/L (15-37); Alanine Aminotransfer ALT/SGPT 14 U/L (16-61); Albumin, Serum 2.4 g/dL (3.2-5.0); Alkaline Phosphatase 111 U/L (45-117); Anion Gap 8 (5-15); BUN 54 mg/dL (7-18); BUN/Creat Ratio 5.6 RATIO (10-20); Bilirubin, Direct 0.17 mg/dL (0.00-0.30); Calcium,Total 9.6 mg/dL (8.5-10.1); Chloride 100 mmol/L (98-107); Creatinine, Serum 9.69 mg/dL (0.70-1.30); EST Glomerular Filtration Rate 7 mL/min (>60); Est Glom Filt Rate - Afr Amer 8 mL/min (>60); Globulin 6.2 g/dL (2.2-4.2); Glucose 94 mg/dL (74-106); Potassium 5.5 mmol/L (3.5-5.1); Protein, Total 8.6 g/dL (6.4-8.2); Sodium Level 138 mmol/L (136-145)
[2024-02-10 09:19] LABS: Erythrocyte Sedimentation Rate 57 mm/hr (0-20)
[2024-02-10 09:22] LABS: Hematocrit 29.9 % (40-54); Hemoglobin 8.9 g/dL (13.0-16.5); Mean Corp Hgb Conc 29.8 g/dL (32-36); Mean Corpuscular Hgb 27.1 pg (27.0-32.0); Mean Corpuscular Volume 91.2 fL (80-94); Mean Platelet Vol. 10.8 fl (6.2-12.0); Platelet Count 210 K/mm3 (150-450); RBC Distribution Width CV 15.1 % (11.6-14.6); RBC Distribution Width SD 50.7 fl (35.1-43.9); Red Blood Count 3.28 M/mm3 (4.6-6.2)
== END ==
LOC: OLS.SW 05:00
PROVIDERS: PCP Internal Medicine; Visit Provider Internal Medicine Infectious Disease
DX: E11.9 Type 2 diabetes mellitus without complications (principal); Z99.2 Dependence on renal dialysis
CPT/HCPCS: 80048; 80076; 80202; 85027; 85652

== ENCOUNTER 2024-02-18 04:44 | Emergency (ER) | payer MEDICARE, MEDICAID, SELFPAY ==
[2024-02-18 04:44] VITALS: BP 167/95; PULSE 85; RESP 19; TEMP 37.1; O2SAT 95; BMI 42.0
--- NOTE | 2024-02-18 05:18 | RAD_ITS ---
INDICATION: CP EXAMINATION/TECHNIQUE: X-RAY - XR Chest 1 View COMPARISON: Prior study dated: 12/30/2023 FINDINGS: LINES/DEVICES: None. LUNGS: The lungs are well expanded. Bronchial wall thickening. No consolidation, edema or effusion. No pneumothorax. MEDIASTINUM AND CARDIOVASCULAR STRUCTURES: Cardiac silhouette remains enlarged. Central airways and mediastinal contour are otherwise unremarkable. BONES AND SOFT TISSUES: No acute abnormality. RAD/Chest 1 View (Portable) IMPRESSION: Bronchial wall thickening favor small airways process. Fluid overload also possible. Electronically Signed: Ron Patton MD at 5:35 EDT ,
--- NOTE | 2024-02-18 05:20 | EKG12_ITS ---
Test Reason : CP Blood Pressure : / mmHG Vent. Rate : 085 BPM Atrial Rate : 085 BPM P-R Int : 160 ms QRS Dur : 086 ms QT Int : 400 ms P-R-T Axes : 038 023 062 degrees QTc Int : 476 ms Normal sinus rhythm Possible Left atrial enlargement Nonspecific T wave abnormality Prolonged QT Abnormal ECG Confirmed by LUIS ARANA, JEFF ([id number]), photograph editor DEANNA TOWNSEND ([id number]) on 02/19/2024 9:42:19 AM Referred By: JONO Confirmed By:JEFF SMITH MD
[2024-02-18] MEDS: Ondansetron 4 MG/2 ML Vial IV (05:26)
[2024-02-18] MEDS: Morphine 4 MG/ML Syringe IV (05:27)
[2024-02-18 05:39] LABS: Absolute Lymphocyte Count 1.93 X10^3/uL (0.83-4.51); Absolute Neutrophil Count 6.7 X10^3/uL (2.0-7.7); Basophil# 0.07 X10^3/uL; Basophil% 0.7 % (0-1); Eosinophil# 0.46 X10^3/uL; Eosinophils% 4.6 % (0-5); Hemoglobin 9.6 g/dL (13.0-16.5); Lymphocyte # 1.93 X10^3/ul (0.83-4.51); Lymphocyte % 19.4 % (19-41); Mean Corpuscular Hgb 26.9 pg (27.0-32.0); Mean Corpuscular Volume 89.6 fL (80-94); Mean Platelet Vol. 10.6 fl (6.2-12.0); Monocyte# 0.76 X10^3/uL; Monocyte% 7.6 % (0-10); NRBC Flagged by Analyzer 0 % (0-5); Neutrophil # 6.68 X10^3/uL (2.7-7.7); Neutrophil % 67.3 % (47-70); Platelet Count 203 K/mm3 (150-450); RBC Distribution Width CV 15.1 % (11.6-14.6); RBC Distribution Width SD 49.6 fl (35.1-43.9); Red Blood Count 3.57 M/mm3 (4.6-6.2); White Blood Count 9.9 K/mm3 (4.4-11.0)
[2024-02-18 05:44] VITALS: BP 165/89; PULSE 89; RESP 16; O2SAT 91
[2024-02-18 06:05] LABS: Anion Gap 6 (5-15); BUN 53 mg/dL (7-18); BUN/Creat Ratio 7.1 RATIO (10-20); Calcium,Total 9.4 mg/dL (8.5-10.1); Chloride 96 mmol/L (98-107); Creatinine, Serum 7.48 mg/dL (0.70-1.30); EST Glomerular Filtration Rate 9 mL/min (>60); Est Glom Filt Rate - Afr Amer 11 mL/min (>60); Estimated Creatinine Clearance 19.84 ml/min; Glucose 205 mg/dL (74-106); Phosphorus 4.1 mg/dL (2.5-4.9); Potassium 4.6 mmol/L (3.5-5.1); Sodium Level 134 mmol/L (136-145); Troponin-I HS 16 pg/mL (3.0-78.0)
[2024-02-18 06:08] VITALS: BP 146/84; PULSE 92; RESP 18; O2SAT 93
--- NOTE | 2024-02-18 06:32 | EDS_ITS ---
HPI History of Present Illness Chief Complaint: Chest Pain Informant: patient, EMS and SNF Narrative Narrative: Patient is a 38-year-old male with history of end-stage renal disease on dialysis as well as type 2 diabetes and paraplegia. He was sent in by the [id number] ing home with reported increasing chest pain. Patient reports he has been feeling sharp pain from the right to left side of his chest for the past 5 days or so. He denies any trauma or sick symptoms. He states has been receiving dialysis as he is directed. He does state that symptoms appear worse if he moves his arm or coughs or has someone touches chest. He states that pain has been unbearable for the last few days but that sometime after midnight the pain seemed to worsen. Asked [facility] reportedly tried nitro and aspirin without any symptom reduction and therefore he was sent to the hospital for evaluation [facility] Medical History Anemia in chronic kidney disease, on chronic dialysis long term (current) use of 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 H/O deep venous thrombosis Chronic kidney disease with end stage renal failure on dialysis Osteomyelitis of pelvic region 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, stage 4 DM type 2, goal HbA1c < 7% Lives in fpc Anxiety Open wound Insulin dependent diabetes mellitus Uses wheelchair Injury of back Community acquired MRSA infection Non-healing wound of amputation stump Hypomagnesemia Hyperosmolality and hypernatremia Neurogenic bowel Pericardial effusion (noninflammatory) SIRS (systemic inflammatory response syndrome) Pyrexia Hyperkalemia Pneumonia Kidney transplant failure Dependence on renal dialysis Pressure ulcer of left heel, unspecified stage Gastro-esophageal reflux disease without esophagitis Acute on chronic systolic (congestive) heart failure Other pericardial effusion (noninflammatory) Other pulmonary embolism without acute cor pulmonale Hypertensive heart and chronic kidney disease with heart failure and stage 1 through stage 4 chronic kidney disease, or unspecified chronic kidney disease Depression Hyperlipemia Hypothyroidism Anemia in chronic kidney disease Neuromuscular dysfunction of bladder, unspecified Paraplegia, incomplete Other acute osteomyelitis, left ankle and foot End stage renal disease Acute pulmonary edema Acute respiratory failure with hypoxia Home Medications ?Medication ?Instructions ?Recorded ?Last Taken ?Type acetaminophen 325 mg tablet 650 mg PO Q4H PRN PAIN/FEVER 01/02/23 04/21/23 History apixaban 5 mg tablet (Eliquis) 5 mg PO BID blood thinner 01/02/23 07/16/23 History ascorbic acid (vitamin C) 500 mg 500 mg PO QHS supplement 01/02/23 12/08/23 History tablet atorvastatin 40 mg tablet 40 mg PO QHS hypercholestremia 01/02/23 12/08/23 History bisacodyl 10 mg rectal suppository 10 mg MO DAILY PRN Constipation 01/02/23 Unknown History carvedilol 12.5 mg tablet 12.5 mg PO .BID CM HYPERTENSION 01/02/23 12/09/23 History clotrimazole-betamethasone 1 1 applic topical QHS rash 01/02/23 07/15/23 History %-0.05 % topical cream dextrose 40 % oral gel (Glucose 15 g PO Q15M PRN Hypoglycemia 01/02/23 Unknown History Gel) hydralazine 25 mg tablet 50 mg PO Q8 hypertension 01/02/23 12/09/23 History insulin glargine 100 unit/mL (3 11 unit subcut 1700 diabetes 01/02/23 12/08/23 History mL) subcutaneous pen (Lantus Solostar U-100 Insulin) insulin lispro 100 unit/mL 6 unit subcut QHS diabetes 01/02/23 07/16/23 History subcutaneous pen (Humalog KwikPen (U-100) Insulin) midodrine 10 mg tablet 10 mg PO MOTUTHFR DIALYSIS 01/02/23 12/09/23 History ondansetron HCl 4 mg tablet 4 mg PO Q8H PRN PRN Nausea 01/02/23 Unknown History pantoprazole 40 mg tablet,delayed 40 mg PO DAILY gerd 01/02/23 12/08/23 History release polyethylene glycol 3350 17 gram 17 g PO DAILY PRN constipation 01/02/23 Unknown History oral powder packet promethazine 12.5 mg tablet 12.5 mg PO Q8H PRN Nausea 01/02/23 07/15/23 History sennosides 8.6 mg-docusate sodium 1 tab-cap PO BID Constipation 01/02/23 07/16/23 History 50 mg capsule (Senna Plus) tacrolimus 1 mg capsule, 2 mg PO Q12H immunosuppressive 01/02/23 12/09/23 History immediate-release (Prograf) trazodone 50 mg tablet 150 mg PO QHS insomnia 01/02/23 12/08/23 History calcitriol 0.5 mcg capsule 1.25 mcg PO DAILY esrd 04/21/23 12/08/23 History gabapentin 100 mg capsule 200 mg PO BID PHANTOM PAIN 04/21/23 12/09/23 History sevelamer HCl 800 mg tablet 2,400 mg PO TIDCM ESRD 04/21/23 07/16/23 History levothyroxine 150 mcg tablet 150 mcg PO DAILY@0600 07/16/23 12/09/23 History hypothyroidism oxycodone 10 mg tablet 10 mg PO Q4H PRN pain 2 days #12 07/19/23 Unknown Rx tabs acetaminophen 650 mg rectal 650 mg MO Q4H PRN fever or pain 08/06/23 Unknown History suppository glucagon 1 mg injection kit 1 mg subcut X1 PRN hypoglycemia 08/06/23 Unknown History magnesium hydroxide 400 mg/5 mL 30 ml PO DAILY PRN constipation 08/06/23 Unknown History oral suspension (Milk of Magnesia) ciclopirox 8 % topical solution 1 applic topical QHS nail fungus 11/17/23 Unknown History insulin lispro 100 unit/mL 9 unit subcut DAILY diabetes 11/17/23 Unknown History subcutaneous pen (Humalog KwikPen (U-100) Insulin) diphenhydramine-zinc acetate 2 1 applic topical Q6H PRN PRN 12/06/23 Unknown History %-0.1 % topical cream (Benadryl itching Extra Strength) escitalopram oxalate 10 mg tablet 15 mg PO QHS depression 12/30/23 Unknown History (Lexapro) vancomycin 1 gram/200 mL in 0.9 % 1 g (200 mL) IV .see below 16 days 01/02/24 Unknown Rx sod. chloride intravenous piggyback Allergy/AdvReac Type Severity Reaction Status Date / Time No Known Allergies Allergy Verified 02/18/24 04:45 Family History Mother Hypertension Diabetes Father Hypertension Diabetes Surgical History History of kidney transplant S/P unilateral above knee amputation S/P foot surgery S/P colostomy Social History housing: [facility]pc Smoking Status: Never smoker alcohol intake: never substance use type: does not use ROS ROS ED Constitutional Constitutional ED: Denies chills or fever(s) ENT ENT ED: Denies sore throat Cardiovascular Cardiovascular: Reports chest pain; Denies palpitations or racing heartbeat Respiratory/Chest Respiratory/Chest: Denies cough or dyspnea Gastrointestinal Gastrointestinal: Denies abdominal pain, diarrhea, nausea or vomiting Musculoskeletal Musculoskeletal: Denies back pain Integumentary Denies rash Neurologic Neurologic: Denies headache(s) Hematologic/Lymphatic Hematologic/Lymphatic: Reports easy bleeding and easy bruising EXAM Physical Exam Const Vital Signs: 02/18/24 04:44 02/18/24 04:44 02/18/24 05:44 Temperature 98.8 F Temperature Source Oral Pulse Rate 85 89 Respiratory Rate 19 H 16 Respiratory Effort Normal Non-Labored Blood Pressure 167/95 H 165/89 H Blood Pressure Mean 119 114 Pulse Ox 95 91 Oxygen Delivery Method Nasal Cannula Nasal Cannula Oxygen Flow Rate (L/min) 3 3 02/18/24 06:08 02/18/24 06:41 02/18/24 06:59 Temperature 96.7 F L 96.7 F L Temperature Source Temporal Pulse Rate 92 86 86 Respiratory Rate 18 18 18 Respiratory Effort Blood Pressure 146/84 H 128/63 H 128/63 H Blood Pressure Mean 104 84 84 Pulse Ox 93 93 93 Oxygen Delivery Method Room Air Room Air Oxygen Flow Rate (L/min) 02/18/24 07:00 Temperature Temperature Source Pulse Rate 86 Respiratory Rate 18 Respiratory Effort Blood Pressure 128/66 H Blood Pressure Mean 86 Pulse Ox 93 Oxygen Delivery Method Nasal Cannula Oxygen Flow Rate (L/min) 3 Positive well nourished and well developed General Appearance ED: well developed HEENT Reports dry mucous membranes HEENT Narrative: No tongue or lip swelling no oral lesions no airway edema or compromise No signs of infection noted in the posterior pharynx Mouth ED: Yes dry mucous membranes Mouth: dry mucous membranes Eyes PERRL and EOMs intact bilaterally General Eye ED: Negative for scleral icterus Neck supple and no JVD Chest Wall Chest Narrative: There is reproducible anterior chest wall pain to palpation that patient states is the same pain he has been experiencing No bony deformity or crepitance noted Resp normal respiratory effort Resp Narrative: Breath sounds are diminished throughout but overall clear to auscultation without nasal flaring retractions tachypnea or accessory muscle use Cardio regular rate and regular rhythm GI non-tender, non-distended and no masses GI Narrative: Abdomen is soft nontender nondistended with hypoactive bowel sounds no voluntary guarding or rigidity or pulsatile mass Auscultation: hypoactive bowel sounds Palpation: soft Extremity Extremity Narrative: No obvious bony deformity or joint effusion Neuro oriented x3 and CN's II-XII intact bilaterally Sensorium / Orientation: alert Psych Psych Narrative: Patient has a flat affect Skin Skin Narrative: No overlying soft tissue changes to suggest trauma or infection MDM MDM MDM Narrative Medical decision making narrative: Patient arrived to the ER hypertensive but otherwise with stable vital. He reported chest pain that was sharp in nature radiating from right to left and it was reproducible on exam. He does have a history of DVT/PE but is on Eliquis and has been taking his medication as directed therefore I have low concern for pulmonary embolus. His exam indicates that his chest pain is musculoskeletal in nature but in order to ensure is not secondary to a pneumonia or pneumothorax a chest x-ray will be obtained. In order to ensure is not due to acute coronary syndrome or cardiac dysrhythmia and EKG will be obtained as well as troponin. Lab work showed his creatinine is elevated at 7.5 with is consistent with his end-stage renal disease. White blood cell count is normal going against infectious process and hemoglobin is low but at baseline. Patient's troponin is 16 and when he felt the need for a one-time value as his pain has been constant for multiple days and he had previous troponins in December that were normal at 16. Therefore at this time with chest x-ray revealed no acute lung pathology such as pneumonia or pneumothorax concern for PE is low secondary to Eliquis use and the fact his EKG and troponin are normal going against acute coronary syndrome I do not feel there is need for further workup and he is otherwise safe for discharge. The patient was given morphine which did seem to help reduce his pain as he was able to fall asleep during his ER workup History & Record Review Discussion w/independent historian: Patient Lab Data Attestation: I reviewed the patient's lab results. Labs: Laboratory Results - last 24 hr 02/18/24 05:10 WBC 9.9 RBC 3.57 L Hgb 9.6 L Hct 32.0 L MCV 89.6 MCH 26.9 L MCHC 30.0 L RDW Std Deviation 49.6 H RDW Coeff of Shanta 15.1 H Plt Count 203 MPV 10.6 Immature Gran % (Auto) 0.400 Neut % (Auto) 67.3 Lymph % (Auto) 19.4 Blaine % (Auto) 7.6 Eos % (Auto) 4.6 Baso % (Auto) 0.7 Absolute Neuts (auto) 6.7 Absolute Lymphs (auto) 1.93 Nucleated RBC % 0 Sodium 134 L Potassium 4.6 Chloride 96 L Carbon Dioxide 32.0 Anion Gap 6 BUN 53 H Creatinine 7.48 H* Estim Creat Clear Calc 19.84 Est GFR (MDRD) Af Amer 11 L Est GFR (MDRD) Non-Af 9 L BUN/Creatinine Ratio 7.1 L Glucose 205 H Calcium 9.4 Phosphorus 4.1 Magnesium 2.0 Troponin I High Sens 16 Radiography Diagnostic Testing: Clinical Impression(s) from Imaging Studies Chest X-Ray 02/18/24 05:18 IMPRESSION: Bronchial wall thickening favor small airways process. Fluid overload also possible. Electronically Signed: Ron Patton MD at 5:35 EDT , Chest x-ray as interpreted by the emergency medicine physician reveals cardiomegaly without pleural effusion infiltrate or pneumothorax Discharge Plan Triage Chief Complaint: Chest Pain ED Provider: Joel French Dx/Rx/DC Orders Clinical Impression: Nonspecific chest pain, Chronic kidney disease with end stage renal failure on dialysis, Anemia of chronic disease, long term (current) use of 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, Type 2 diabetes mellitus Instructions: ED Chest Pain, Uncertain Cause Prescriptions: No Action atorvastatin 40 mg Tablet 40 mg PO QHS acetaminophen 325 mg Tablet 650 mg PO Q4H PRN (Reason: PAIN/FEVER) carvedilol 12.5 mg Tablet 12.5 mg PO .BID CM Rx Instructions: must administer with a meal/food ascorbic acid (vitamin C) 500 mg Tablet 500 mg PO QHS bisacodyl 10 mg Suppository 10 mg MO DAILY PRN (Reason: Constipation) dextrose [Glucose Gel] 40 % Gel 15 g PO Q15M PRN (Reason: Hypoglycemia) Rx Instructions: until symptoms of low blood sugar are controlled insulin lispro [Humalog KwikPen Insulin] 100 unit/mL Insulin Pen 6 unit SUBCUT QHS Eliquis 5 mg Tablet 5 mg PO BID trazodone 50 mg Tablet 150 mg PO QHS hydralazine 25 mg Tablet 50 mg PO Q8 pantoprazole 40 mg Tablet,Delayed Release (Dr/Ec) 40 mg PO DAILY Rx Instructions: in am clotrimazole-betamethasone 1-0.05 % Cream 1 applic TOPICAL QHS Rx Instructions: apply to face tacrolimus [Prograf] 1 mg Capsule 2 mg PO Q12H midodrine 10 mg Tablet 10 mg PO MOTUTHFR Rx Instructions: TAKE 1 TAB BY MOUTH EVERY SATURDAY, SATURDAY, SATURDAY, AND SATURDAY for hypotension prior to dialysis Hold BP >130/90 insulin glargine [Lantus Solostar U-100 Insulin] 100 unit/mL (3 mL) Insulin Pen 11 unit SUBCUT 1700 polyethylene glycol 3350 17 gram Powder In Packet 17 g PO DAILY PRN (Reason: constipation) promethazine 12.5 mg Tablet 12.5 mg PO Q8H PRN (Reason: Nausea) ondansetron HCl 4 mg Tablet 4 mg PO Q8H PRN PRN (Reason: Nausea) Senna Plus 8.6-50 mg Capsule 1 tab-cap PO BID calcitriol 0.5 mcg capsule 1.25 mcg PO DAILY Patient Comments: MAR STATES THAT PT TAKES IN THE MORNING gabapentin 100 mg capsule 200 mg PO BID sevelamer HCl 800 mg tablet 2,400 mg PO TIDCM Rx Instructions: must administer with a meal/food levothyroxine 150 mcg tablet 150 mcg PO DAILY@0600 Patient Comments: MAR STATES PT TAKES IN THE AM oxycodone 10 mg tablet 10 mg PO Q4H PRN (Reason: pain) 2 Days Qty: 12 0RF acetaminophen 650 mg suppository 650 mg MO Q4H PRN (Reason: fever or pain) magnesium hydroxide [Milk of Magnesia] 400 mg/5 mL suspension 30 ml PO DAILY PRN (Reason: constipation) glucagon 1 mg kit 1 mg subcut X1 PRN (Reason: hypoglycemia) Benadryl Extra Strength 2-0.1 % cream 1 applic topical Q6H PRN PRN (Reason: itching) ciclopirox 8 % solution 1 applic topical QHS Rx Instructions: right thumb insulin lispro [Humalog KwikPen Insulin] 100 unit/mL insulin pen 9 unit subcut DAILY Rx Instructions: in am escitalopram oxalate [Lexapro] 10 mg tablet 15 mg PO QHS vancomycin in 0.9 % sodium chl 1 gram/200 mL piggyback 1 g IV .see below 16 Days Rx Instructions: stop date 01/20/24. Dx: sacral osteomyelitis. Dose 750gm iv vancomycin with HD on Sat, , and . Dose 1gm iv vanc with HD on Fridays. weekly bmp, cbc, LFT, vanc trough, and esr. Fax to [phone]. Primary Care Provider: Vanessa Hutchins Referrals: Vanessa Hutchins MD [Primary Care Provider] - Activity Restrictions/Additional Instructions: Your workup today shows a normal troponin that was the same value as testing back in December of this year. Metastable value coupled with your normal EKG go against your chest pain coming from acute coronary syndrome/heart damage. Your chest x-ray also does not reveal any type of infection or fluid overload. Please continue dialysis as directed and continue all of your medications as directed by your doctor. Return to the ER should you have any further concern Print Language: Pashto Disposition Disposition: Home, Self Care Discharge Date/Time: 02/18/24 07:35
[2024-02-18 06:41] VITALS: BP 128/63; PULSE 86; RESP 18; TEMP 35.9; O2SAT 93
--- NOTE | 2024-02-18 06:51 | NURSING ---
report called back to [facility]
[2024-02-18 06:59] VITALS: BP 128/63; PULSE 86; RESP 18; TEMP 35.9; O2SAT 93
[2024-02-18 07:00] VITALS: BP 128/66; PULSE 86; RESP 18; O2SAT 93
== END 2024-02-18 07:35 | disposition home or self-care (01) ==
PROVIDERS: Emergency Provider Emergency Medicine; PCP Internal Medicine; Visit Provider Emergency Medicine
DX: R07.9 Chest pain, unspecified (principal); N18.6 End stage renal disease; E11.22 Type 2 diabetes mellitus with diabetic chronic kidney disease; Z79.4 Long term (current) use of insulin; D63.1 Anemia in chronic kidney disease; Z79.899 Other long term (current) drug therapy; Z79.01 Long term (current) use of 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; Z99.2 Dependence on renal dialysis; Z86.711 Personal history of pulmonary embolism; Z86.718 Personal history of other venous thrombosis and embolism
CPT/HCPCS: 71045; 80048; 83735; 84100; 84484; 85025; 93005; 96374; 96375; 99283; A4216; J2405

== ENCOUNTER 2024-02-24 08:25 | Outpatient (RCR) | payer MEDICARE, MEDICAID, SELFPAY ==
[2024-02-06 00:21] VITALS: BP 188/85; PULSE 90; RESP 20; TEMP 36.8; BMI 41.1
[2024-02-24 08:38] VITALS: BP 183/77; PULSE 85; RESP 18; TEMP 36.8; BMI 41.1
--- NOTE | 2024-02-24 09:30 | PN.PCM_ITS ---
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 He was admitted at [facility] from 07/16/23 to 07/19/23 for a cough, fever and chills. Patient was admitted for acutely infected chronic left ischial/sacral wound with concern for osteomyelitis, started on IV antibiotics. He has a history of ESRD on hemodialysis. History of failed kidney transplant, chronic systolic heart failure, hypertension, hyperlipidemia, diabetes mellitus type II, left AKA, and incomplete paraplegia. He resides at [facility] where he receives his hemodialysis. He had an operative debridement of his left ischial ulcer at [facility] 2 years ago, per the patient. CT of abdomen and pelvis on 07/16/23, related to the ulcer showed There is a decubitus ulcer in the left gluteus with extension into and sclerotic and erosive involvement of the left initial tuberosity. This is concerning for osteomyelitis. Ischial wound culture obtained on 07/16/23 which was positive for Proteus mirabilis, Escherichia coli, Enterococcus gallinarum, and MRSA. ID was consulted and he was treated with Vancomycin and Zosyn IV He was discharged on Linezolid and Augmentin and has finished them. He developed a wound on his left AKA stump which is now healed. Left AKA wound culture from 08/22/23 positive for Proteus mirabilis. He was started on Augmentin and has finished them. Left ischial ulcer wound culture from 10/15/23 positive for Proteus mirabilis, MRSA, Enterococcus faecalis, Enterococcus avium Anaerobic cocci. He was treated with Augmentin and Doxycycline. Surgery 12/09/23 - Excision left ischial pressure sore, Stage IV, with partial ostectomy for osteomyelitis. Operative tissue cultures positive for Proteus mirabilis, Enterococcus faecalis, Staphylococcus epidermidis, Prevotella nanceiensis, and Anaerobic cocci. Operative bone cultures positive for Proteus mirabilis, Enterococcus raffinosus, Staphylococcus epidermidis, and Fingodia magna. ID is managing this and he is on 6 weeks of Ertapenem and Vancomycin to be dosed with hemodialysis (MTTF). Surgery 12/30/[address] Garcia for Irrigation and washout of the left buttock ischial wound with packing. Patient was having issues with bleeding. His wound VAC was stopped, he continued to have problems with bleeding, he was sent to the ED where he was evaluated by Dr. Garcia and was immediately taken to the OR. He went to the ICU for Acute blood loss anemia with hypotension and Hemorrhagic shock. He was transfused 4 units of PRBC's. He was transferred back to [facility] on 01/03/24. Today he denies fever, chills, nausea or vomiting. Patient has diabetes mellitus. His last HgbA1c from 08/09/23 is 6.4. For elective surgeries, his HgbA1c needs to be less than 8. Progress of Wound: Left ischial ulcer is slightly smaller. Small area of bone palpable that is not covered with granulation tissue. Ulcer is beefy pink. Chelsey wound is clear. He has a small open area on his left arm that he states was caused from a blister. It is superficial and pink wound bed. Objective Data Objective Data Vital Signs: Vital Signs Temp Pulse Resp BP 98.2 F 85 18 183/77 H 02/24/24 08:38 02/24/24 08:38 02/24/24 08:38 02/24/24 08:38 Weight: 302 lb 12.736 oz Body Mass Index (BMI) 41.1 Charges/Coding Procedures Integumentary 111xxx-113xx: 61002 Global Visit Debridement Note Debridement Note Wound debrided: #1 Left ischial area. Laterality: Left Wound Grade/Stage: IV. Type of Debridement: Excisional debridement Anesthesia Used: 5% Lidocaine Gel Depth: Down to and including healthy tissue, in the subcutaneous layer and to muscle (bone is palpable and not exposed.) Percentage of wound debrided: 100 Instrument Used: 7mm curette and Forceps (Bone nipper/Rongeur used to remove sharp bone on base of ulcer.) Tissue Removed: subcutaneous tissue into the muscle. Bone exposed but not debrided. Severity: Fat Layer Exposed (muscle is exposed. Bone is palpable and not exposed.) Amount of bleeding with debridement: Mild Bleeding Controlled with: Pressure and Compression and gauze Patient tolerated procedure: Patient tolerated procedure well Post-Debridement Measurements and Additional Note: Post-Debridement Measurements/Treatment WC - Nurse 1 - General Ulcer Assessment Start: 02/24/24 08:38 Freq: Status: Active Protocol: OTISEXT Activity Type Activity Date Activity User E-sign Co-sign Detail Recorded Client Recorded Date Recorded By Document 02/24/24 08:38 DELANO [id number] 02/24/24 08:51 DL 02/24/24 08:38 - Today's Visit Information Type of service Follow-up Visit (Physician/CARDIOVASCULAR SURGEON ) Transfer Assistance Gerry Lift Patient Identification Verified (Name & Yes ) Patient Requires Transmission-Based No Precautions Height and Weight Body Mass Index (BMI) 41.1 BMI Classification Obese Vital Signs Temperature (97.8 F-99.1 F) 98.2 F Temperature Source Temporal Pulse Rate (60-100) 85 Pulse Location Monitor Respiratory Rate (12-18) 18 Respiratory rate source Observation Blood Pressure (90/60-120/80) 183/77 H Blood Pressure Mean (mm Hg) 112 Source Monitor History Since Last Visit- (Skip if this is Patient's initial visit) Have you changed medications since your No last visit? Any new allergies or adverse reactions No Had a fall/change in ADL's that may No increase risk of falls Signs or symptoms of abuse and/or No neglect since last visit Have you been in the hospital since your No last visit? Has dressing in place as prescribed Yes Has offloadiing in place as prescribed Yes Experienced any changes in pain level or No management Pain Scale: 0-10 Numeric Is Patient Pain Free? Yes - Nurse 1 - General Ulcer Measurement Start: 02/24/24 08:38 Freq: Status: Active Protocol: Activity Type Activity Date Activity User E-sign Co-sign Detail Recorded Client Recorded Date Recorded By Document 02/24/24 08:38 DELANO [id number] 02/24/24 08:51 DELANO 02/24/24 08:38 Wound Center Nurse 1 #5 L Buttocks/ Ischial -Current Size (cm) - Length 2.2 -Current Size (cm) - Width 4 -Current Size (cm) - Depth 5 -Total Square Cm 8.8 -Tunneling Yes -Tunneling Position (O'clock) 7 -Tunneling Distance (cm) 5.5 -Exudate Amt Medium -Exudate Type Serosanguineous -Wound Margin Thickened & Rolled Under -Granulation Amt Large (67-100%) -Granulation Quality Red -Necrosis Amt Small (1-33%) -Necrotic Tissue Type Adherent Slough -Structure Exposed Bone -Texture (Chelsey-wound Skin Appearance) Scarring -Moisture (Chelsey-wound Skin Appearance) Maceration -Color (Chelsey-wound Skin Appearance) No Abnormality -Temperature (Chelsey-wound Skin No Abnormality Appearance) (Pt Warm) -Tenderness on Palpation (Chelsey-wound No Skin Appearance) -Ulcer Cleansing Soap and Water -Foul Odor after Cleansing No -Anesthetic Used 4% Lidocaine Solution - Nurse 2 - General Ulcer CM Notes Start: 02/24/24 08:38 Freq: Status: Active Protocol: Activity Type Activity Date Activity User E-sign Co-sign Detail Recorded Client Recorded Date Recorded By Document 02/24/24 09:05 BETY [id number] 02/24/24 09:07 BETY 02/24/24 09:05 Wound Center Nurse 2 -Time 09:05 -Correct Patient Yes -Correct Side, Site, Position Yes -Correct Procedure Yes -Procedure Performed Yes -Type of Procedure Debridement -Clinical Debridement Muscle / Fascia -Tissue Removed Muscle,Fascia -Post Debridement (cm) - Length 4 -Post Debridement (cm) - Width 2.3 -Post Debridement (cm) - Depth 5.2 -Total Square (Post) (cm) 9.2 -Area of Debridement (cm) - Length 4 -Area of Debridement (cm) - Width 2.3 -Total Square (Area) (cm) 9.2 -Tunneling Yes -Tunneling Position (O'clock) 6 -Tunneling Distance (cm) 5.6 -Undermining/Tunneling No -Circular Undermining No -Wound/Ulcer Outcome Not Healed -Ulcer Cleansing Rinsed/ Irrigated with Saline -Foul Odor after Cleansing No -Bioengineered Tissue No -Bleeding Controlled with Pressure -Treatment Response Procedure Tolerated Well -Offloading No -Pressure Reduction Wheelchair cushion -Debridement - Muscle / Fascia, 1st Yes 20sq cm Pain Scale: 0-10 Numeric Is Patient Pain Free? Yes - Nurse 3 - General Ulcer D/C NN Start: 02/24/24 08:38 Freq: Status: Active Protocol: Activity Type Activity Date Activity User E-sign Co-sign Detail Recorded Client Recorded Date Recorded By Document 02/24/24 09:19 BETY [id number] 02/24/24 09:20 BETY 02/24/24 09:19 Wound Care Center Nurse 3 #5 L Buttocks/ Ischial -Ulcer Cleansing Rinsed/ Irrigated with Saline -Other Dressing dakin soaked gauze -Primary Dressing Covered/Secured with Dry Gauze, Secured with Tape Pain Scale: 0-10 Numeric Is Patient Pain Free? 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, stage 4: CODE(S): L89.324 - Pressure ulcer of left buttock, stage 4 (2) Ulcer of right foot with fat layer exposed: CODE(S): L97.512 - Non-pressure chronic ulcer of other part of right foot with fat layer exposed (3) Ulcer of right foot due to type 2 diabetes mellitus: CODE(S): E11.621 - Type 2 diabetes mellitus with foot ulcer; L97.519 - Non-pressure chronic ulcer of other part of right foot with unspecified severity (4) Open wound of left buttock without complication: CODE(S): S31.829A - Unspecified open wound of left buttock, initial encounter QUALIFIERS: Encounter type: initial encounter Qualified Code(s): S31.829A - Unspecified open wound of left buttock, initial encounter (5) Chronic kidney disease with end stage renal failure on dialysis: CODE(S): N18.6 - End stage renal disease; Z99.2 - Dependence on renal dialysis (6) DM type 2, goal HbA1c < 7%: CODE(S): E11.9 - Type 2 diabetes mellitus without complications (7) Community acquired MRSA infection: CODE(S): A49.02 - Methicillin resistant Staphylococcus aureus infection, unspecified site PLAN: Plan Patient evaluated at the wound healing center today. He states that he is now seeing a business systems manager for his right foot ulcers. Wound care - Has been Dakins 0.25% moistened gauze covered with ABD daily to the left ischial ulcer. He has not been having any signs of bleeding, but will hold off on the wound VAC due to his hospitalization due to bleeding. He has a small superficial wound on his left forearm from a blister. It did not require debridement. Will place antibiotic ointment daily and cover with gauze. Encouraged off loading and not sitting or laying on the ulcer area for long periods of time. Ideally not up in his chair for more than an hour. He is allowed to be up for physical therapy. If he is up in a wheelchair, he needs to shift/reposition every 10 minutes for 10 seconds. Encouraged increased protein intake to help with wound healing. He would benefit from protein supplementation. He has ESRD and has dialysis M,T,TH,F. He is to have dialysis today when he gets back to his facility. Operative tissue cultures from 12/09/23 were positive for Proteus mirabilis, Enterococcus faecalis, Staphylococcus epidermidis, Prevotella nanceiensis, and Anaerobic cocci. Operative bone cultures from 12/09/23 were positive for Proteus mirabilis, Enterococcus raffinosus, Staphylococcus epidermidis, and Fingodia magna. ID is managing this and he currently is on Ertapenem and Vancomycin. Left ischial wound culture from 07/16/23 showed Proteus mirabilis, E. coli, Enterococcus gallinarum, and MRSA. He was treated with Vancomycin and Zosyn in the hospital. He was discharged on Linezolid and Augmentin' Left AKA wound culture from 08/22/23 positive for Proteus mirabilis. He was started on Augmentin and has finished them. Left ischial ulcer wound culture from 10/15/23 positive for Proteus mirabilis, MRSA, Enterococcus faecalis, Enterococcus avium Anaerobic cocci. He is being treated with Augmentin and Doxycycline. Patient has diabetes mellitus. His HgbA1c from 08/09/23 was 6.4. Followup 3 weeks.
== END 2024-03-07 23:59 | disposition home or self-care (01) ==
LOC: WC 08:25
PROVIDERS: PCP Internal Medicine; Referring Provider Nurse Practitioner Family; Visit Provider Nurse Practitioner Family
DX: L89.324 Pressure ulcer of left buttock, stage 4 (principal); I13.2 Hypertensive heart and chronic kidney disease with heart failure and with stage 5 chronic kidney disease, or end stage renal disease; G82.22 Paraplegia, incomplete; N18.6 End stage renal disease; Z89.612 Acquired absence of left leg above knee; I50.22 Chronic systolic (congestive) heart failure; E11.22 Type 2 diabetes mellitus with diabetic chronic kidney disease; Z79.4 Long term (current) use of insulin; Z99.2 Dependence on renal dialysis; E78.5 Hyperlipidemia, unspecified; Z79.01 Long term (current) use of 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; Z79.899 Other long term (current) drug therapy; Z94.0 Kidney transplant status
CPT/HCPCS: 11043

== ENCOUNTER → 2024-03-03 05:00 | Outpatient (REF) | payer MEDICARE, MEDICAID, SELFPAY ==
[2024-03-03 08:07] LABS: Hematocrit 26.4 % (40-54); Hemoglobin 7.9 g/dL (13.0-16.5); Mean Corp Hgb Conc 29.9 g/dL (32-36); Mean Corpuscular Volume 90.1 fL (80-94); Mean Platelet Vol. 10.1 fl (6.2-12.0); Platelet Count 295 K/mm3 (150-450); RBC Distribution Width CV 14.9 % (11.6-14.6); Red Blood Count 2.93 M/mm3 (4.6-6.2); White Blood Count 10.9 K/mm3 (4.4-11.0)
[2024-03-03 08:23] LABS: Erythrocyte Sedimentation Rate 44 mm/hr (0-20)
[2024-03-03 12:31] LABS: AST(SGOT) 18 U/L (15-37); Alanine Aminotransfer ALT/SGPT 16 U/L (16-61); Albumin, Serum 2.4 g/dL (3.2-5.0); Alkaline Phosphatase 119 U/L (45-117); Anion Gap 9 (5-15); BUN 51 mg/dL (7-18); BUN/Creat Ratio 5.7 RATIO (10-20); Bilirubin, Direct 0.17 mg/dL (0.00-0.30); Calcium,Total 10.1 mg/dL (8.5-10.1); Chloride 97 mmol/L (98-107); Creatinine, Serum 8.94 mg/dL (0.70-1.30); EST Glomerular Filtration Rate 7 mL/min (>60); Est Glom Filt Rate - Afr Amer 9 mL/min (>60); Globulin 6.3 g/dL (2.2-4.2); Glucose 208 mg/dL (74-106); Potassium 4.9 mmol/L (3.5-5.1); Protein, Total 8.7 g/dL (6.4-8.2); Sodium Level 135 mmol/L (136-145)
== END ==
LOC: OLS.SW 05:00
PROVIDERS: PCP Internal Medicine; Visit Provider Internal Medicine
DX: E11.22 Type 2 diabetes mellitus with diabetic chronic kidney disease (principal); N18.6 End stage renal disease
CPT/HCPCS: 80048; 80076; 85027; 85652

== ENCOUNTER → 2024-03-10 05:00 | Outpatient (REF) | payer MEDICARE, MEDICAID, SELFPAY ==
[2024-03-10 09:37] LABS: Hematocrit 27.1 % (40-54); Mean Corp Hgb Conc 29.5 g/dL (32-36); Mean Corpuscular Hgb 26.4 pg (27.0-32.0); Mean Corpuscular Volume 89.4 fL (80-94); Mean Platelet Vol. 9.8 fl (6.2-12.0); Platelet Count 264 K/mm3 (150-450); RBC Distribution Width CV 15.8 % (11.6-14.6); RBC Distribution Width SD 51.2 fl (35.1-43.9); Red Blood Count 3.03 M/mm3 (4.6-6.2); White Blood Count 9.5 K/mm3 (4.4-11.0)
[2024-03-10 11:26] LABS: AST(SGOT) 15 U/L (15-37); Alanine Aminotransfer ALT/SGPT 11 U/L (16-61); Albumin, Serum 2.4 g/dL (3.2-5.0); Alkaline Phosphatase 103 U/L (45-117); Anion Gap 10 (5-15); BUN 48 mg/dL (7-18); BUN/Creat Ratio 5.8 RATIO (10-20); Bilirubin, Direct 0.17 mg/dL (0.00-0.30); Calcium,Total 9.7 mg/dL (8.5-10.1); Chloride 97 mmol/L (98-107); Creatinine, Serum 8.31 mg/dL (0.70-1.30); EST Glomerular Filtration Rate 8 mL/min (>60); Est Glom Filt Rate - Afr Amer 9 mL/min (>60); Globulin 6.1 g/dL (2.2-4.2); Glucose 126 mg/dL (74-106); Potassium 4.4 mmol/L (3.5-5.1); Protein, Total 8.5 g/dL (6.4-8.2); Sodium Level 134 mmol/L (136-145)
== END ==
LOC: OLS.SW 05:00
PROVIDERS: PCP Internal Medicine; Visit Provider Internal Medicine
DX: I10 Essential (primary) hypertension (principal); E11.9 Type 2 diabetes mellitus without complications; N19 Unspecified kidney failure
CPT/HCPCS: 36415; 80048; 80076; 85027

== ENCOUNTER → 2024-03-17 05:00 | Outpatient (REF) | payer MEDICARE, MEDICAID, SELFPAY ==
[2024-03-17 08:47] LABS: Hematocrit 28.5 % (40-54); Hemoglobin 8.4 g/dL (13.0-16.5); Mean Corp Hgb Conc 29.5 g/dL (32-36); Mean Corpuscular Hgb 26.7 pg (27.0-32.0); Mean Corpuscular Volume 90.5 fL (80-94); Mean Platelet Vol. 10.5 fl (6.2-12.0); Platelet Count 198 K/mm3 (150-450); RBC Distribution Width CV 16.7 % (11.6-14.6); RBC Distribution Width SD 53.8 fl (35.1-43.9); Red Blood Count 3.15 M/mm3 (4.6-6.2); White Blood Count 11.6 K/mm3 (4.4-11.0)
[2024-03-17 09:26] LABS: AST(SGOT) 19 U/L (15-37); Alanine Aminotransfer ALT/SGPT 21 U/L (16-61); Albumin, Serum 2.6 g/dL (3.2-5.0); Alkaline Phosphatase 125 U/L (45-117); Anion Gap 9 (5-15); BUN 64 mg/dL (7-18); BUN/Creat Ratio 9.3 RATIO (10-20); Bilirubin, Direct 0.18 mg/dL (0.00-0.30); Calcium,Total 10.1 mg/dL (8.5-10.1); Chloride 99 mmol/L (98-107); Creatinine, Serum 6.87 mg/dL (0.70-1.30); EST Glomerular Filtration Rate 10 mL/min (>60); Est Glom Filt Rate - Afr Amer 12 mL/min (>60); Globulin 6.4 g/dL (2.2-4.2); Glucose 244 mg/dL (74-106); Potassium 5.3 mmol/L (3.5-5.1); Sodium Level 135 mmol/L (136-145)
== END ==
LOC: OLS.SW 05:00
PROVIDERS: PCP Internal Medicine; Visit Provider Internal Medicine
DX: E11.22 Type 2 diabetes mellitus with diabetic chronic kidney disease (principal); N18.6 End stage renal disease
CPT/HCPCS: 80048; 80076; 85027

== ENCOUNTER 2024-03-22 01:31 | Inpatient (IN) | payer MEDICARE, MEDICAID, SELFPAY ==
[2024-03-22] VITALS (61 sets, daily range): BP systolic 114–220; BP diastolic 40–118; PULSE 80–99; RESP 5–18; TEMP 35.9–36.6; O2SAT 87–100; BMI 40.6; BMI 39.9
--- NOTE | 2024-03-22 01:52 | CT_ITS ---
EXAM: CT HEAD WITHOUT INTRAVENOUS CONTRAST CLINICAL INDICATION: altered mental status TECHNIQUE: Multiple axial images were obtained of the head without intravenous contrast. CTDIvol = ( 44.99 ) mGy, DLP = ( 1828.44 ) mGycm This CT exam was performed using one or more of the following dose reduction techniques: automated exposure control, adjustment of the mA and/or kV according to patient size, and/or use of iterative reconstruction technique. COMPARISON: No relevant prior studies available. FINDINGS: BRAIN AND EXTRA-AXIAL SPACES: Periventricular small vessel ischemic change. No midline shift or hydrocephalus. Diffuse parenchymal atrophy. Posterior fossa structures are unremarkable. Basal cisterns are patent. No acute intracranial hemorrhage, mass effect or edema. No evidence of acute cortical stroke. BONES/JOINTS: Unremarkable. No discrete lytic or blastic abnormalities. VASCULATURE: Atherosclerotic calcifications of the carotid siphons and vertebrobasilar arteries. SINUSES: Mild scattered paranasal sinus mucosal thickening. MASTOID AIR CELLS: Mastoid air cells are clear. ORBITS: Visualized globes, extraocular muscles, optic nerves and retrobulbar fat appear unremarkable. CT/Brain/Head without Contrast IMPRESSION: 1. No evidence of acute intracranial pathology. 2. Diffuse involutional changes and chronic ischemic small vessel white matter disease. AIDOC was utilized to assist in identifying pertinent positive findings. Electronically Signed: Joel Amor MD at 3:23 EDT ,
[2024-03-22 02:01] LABS: Blood Gas Specimen Type VEN; O2 Delivery Device Cannula; SITE Not entered; VBG BASE EXCESS 5 mmol/L (-1.0-3.5); VBG Bicarbonate 30 mmol/L (22-26); VBG PO2 55 mmHg (25-40); VBG SO2 88 % (50-70); VBG TCO2 31 mmol/L (23-33); VBG pCO2 46.9 mmHg (41-51); VBG pH 7.41 (7.32-7.42)
--- NOTE | 2024-03-22 02:11 | EKG12_ITS ---
Test Reason : ALT LOC Blood Pressure : / mmHG Vent. Rate : 083 BPM Atrial Rate : 083 BPM P-R Int : 168 ms QRS Dur : 084 ms QT Int : 388 ms P-R-T Axes : 044 015 045 degrees QTc Int : 455 ms Normal sinus rhythm Possible Left atrial enlargement Borderline ECG Confirmed by Benedicto Kendrick ([id number]), visual effects editor DEANNA TOWNSEND ([id number]) on 03/23/2024 10:26:28 AM Referred By: Confirmed By:Benedicto Kendrick
--- NOTE | 2024-03-22 02:11 | ED.RN ---
This RN attempted to call the 3 numbers listed as a contact to get permission to treat and to update the family. This RN did not get any response at this time.
[2024-03-22 02:12] LABS: Mucous, Urine 0 SEEN /hpf (<or=2+); Squamous Epithelial Cells - UA 0 SEEN /hpf (0-5)
[2024-03-22 02:21] LABS: Absolute Lymphocyte Count 1.94 X10^3/uL (0.83-4.51); Absolute Neutrophil Count 8.7 X10^3/uL (2.0-7.7); Basophil# 0.08 X10^3/uL; Basophil% 0.7 % (0-1); Eosinophil# 0.66 X10^3/uL; Eosinophils% 5.4 % (0-5); Hematocrit 31.8 % (40-54); Hemoglobin 9.3 g/dL (13.0-16.5); Lymphocyte # 1.94 X10^3/ul (0.83-4.51); Lymphocyte % 15.8 % (19-41); Mean Corp Hgb Conc 29.2 g/dL (32-36); Mean Corpuscular Hgb 26.8 pg (27.0-32.0); Mean Corpuscular Volume 91.6 fL (80-94); Mean Platelet Vol. 11.3 fl (6.2-12.0); Monocyte# 0.78 X10^3/uL; Monocyte% 6.4 % (0-10); NRBC Flagged by Analyzer 0 % (0-5); Neutrophil # 8.72 X10^3/uL (2.7-7.7); Neutrophil % 71.2 % (47-70); Platelet Count 149 K/mm3 (150-450); RBC Distribution Width CV 17.7 % (11.6-14.6); RBC Distribution Width SD 57.3 fl (35.1-43.9); Red Blood Count 3.47 M/mm3 (4.6-6.2); White Blood Count 12.2 K/mm3 (4.4-11.0)
[2024-03-22 02:23] LABS: Color, Urine Red (Yellow); Glucose, Dipstick Normal (Normal); Ketone-Dipstick Negative (Negative); Leukocyte Esterase-Dipstick Negative /ul (Negative); Nitrite-Dipstick Negative (Negative); Occult Blood-Urine 50 /ul (Negative); Protein-Dipstick 500 mg/dl (Negative); Specific Gravity, Urine 1.015 (1.002-1.030); Urine Bilirubin Dipstick Negative (Negative); Urine Clarity Turbid (Clear); Urine Urobilinogen Normal (Normal)
--- NOTE | 2024-03-22 02:24 | RAD_ITS ---
EXAM: XR CHEST, 1 VIEW CLINICAL INDICATION: cough TECHNIQUE: Frontal view of the chest. COMPARISON: February 18, 2024 FINDINGS: LUNGS AND PLEURAL SPACES: Atelectasis versus infiltrate in the retrocardiac region of the left lower lobe. Vascular congestion at the upper lungs. Lungs volumes are low. No pleural effusion or pneumothorax. HEART: Unremarkable. Cardiac silhouette not enlarged. MEDIASTINUM: Central airways and mediastinal contour are unremarkable. BONES/JOINTS: Unremarkable. No acute fracture. SOFT TISSUES: Unremarkable. RAD/Chest 1 View (Portable) IMPRESSION: Atelectasis versus infiltrate in the retrocardiac region of the left lower lobe. Lateral view could be useful. Electronically Signed: Joel Amor MD at 3:05 EDT ,
[2024-03-22 02:26] LABS: International Normalized Ratio 1.5; Partial Thromboplast Time 44.2 Seconds (24.1-36.2); Prothrombin Time (Protime)PT. 18.1 SECONDS (11.7-14.9)
[2024-03-22 02:31] LABS: Alcohol, Blood (Medical)-Serum < 3.0 mg/dL
[2024-03-22 02:32] LABS: Lactic Acid 0.6 mmol/L (0.4-1.9)
[2024-03-22 02:36] LABS: Erythrocyte Sedimentation Rate 73 mm/hr (0-20)
[2024-03-22 02:37] LABS: Bacteria 3+ /hpf (None Seen); Red Blood Cells-Urine > 100 SEEN /hpf (0-5); White Blood Cells 10-25 SEEN /hpf (0-5)
--- NOTE | 2024-03-22 02:45 | EX.ED.DYSGE1 ---
HPI History of Present Illness Chief Complaint: Alt LOC Informant: EMS and SNF Narrative Narrative: Patient is a 38-year-old male with past medical history of type 2 diabetes chronic sacral decubitus ulcer as well as previous PE currently on Eliquis and end-stage renal disease on dialysis. detention reports that he has been confused and lethargic and they have noticed that the small amount of urine he produces from his suprapubic catheter has been bloody in nature. Secondary to these changes he was sent in for evaluation. The patient is obtunded and will wake to touch or voice but quickly fall back asleep and cannot provide any further history as his mental status is altered. [facility] Medical History (Updated 03/22/24 @ 05:[address] 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 H/O deep venous thrombosis Osteomyelitis of pelvic region Lives in [facility] Anxiety Open wound Insulin dependent diabetes mellitus Uses wheelchair Injury of back Community acquired MRSA infection Non-healing wound of amputation stump DM type 2, goal HbA1c < 7% 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, stage 4 Hypomagnesemia Hyperosmolality and hypernatremia Neurogenic bowel Pericardial effusion (noninflammatory) SIRS (systemic inflammatory response syndrome) Pyrexia Chronic kidney disease with end stage renal failure on dialysis Kidney transplant failure Dependence on renal dialysis Pressure ulcer of left heel, unspecified stage Gastro-esophageal reflux disease without esophagitis Acute on chronic systolic (congestive) heart failure Other pericardial effusion (noninflammatory) Other pulmonary embolism without acute cor pulmonale Hypertensive heart and chronic kidney disease with heart failure and stage 1 through stage 4 chronic kidney disease, or unspecified chronic kidney disease Depression Hyperlipemia Hypothyroidism Anemia in chronic kidney disease Neuromuscular dysfunction of bladder, unspecified Paraplegia, incomplete Other acute osteomyelitis, left ankle and foot End stage renal disease Acute pulmonary edema Acute respiratory failure with hypoxia Home Medications ?Medication ?Instructions ?Recorded ?Last Taken ?Type acetaminophen 325 mg tablet 650 mg PO Q4H PRN PAIN/FEVER 01/02/23 04/21/23 History apixaban 5 mg tablet (Eliquis) 5 mg PO BID blood thinner 01/02/23 07/16/23 History ascorbic acid (vitamin C) 500 mg 500 mg PO QHS supplement 01/02/23 12/08/23 History tablet atorvastatin 40 mg tablet 40 mg PO QHS hypercholestremia 01/02/23 12/08/23 History bisacodyl 10 mg rectal suppository 10 mg VT DAILY PRN Constipation 01/02/23 Unknown History carvedilol 12.5 mg tablet 12.5 mg PO Q12H HYPERTENSION 01/02/23 12/09/23 History clotrimazole-betamethasone 1 1 applic topical QHS rash 01/02/23 07/15/23 History %-0.05 % topical cream dextrose 40 % oral gel (Glucose 15 g PO Q15M PRN Hypoglycemia 01/02/23 Unknown History Gel) hydralazine 25 mg tablet 50 mg PO Q8 hypertension 01/02/23 12/09/23 History insulin glargine 100 unit/mL (3 11 unit subcut 1700 diabetes 01/02/23 12/08/23 History mL) subcutaneous pen (Lantus Solostar U-100 Insulin) insulin lispro 100 unit/mL 6 unit subcut QHS diabetes 01/02/23 07/16/23 History subcutaneous pen (Humalog KwikPen (U-100) Insulin) midodrine 10 mg tablet 10 mg PO MOTUTHFR DIALYSIS 01/02/23 12/09/23 History ondansetron HCl 4 mg tablet 4 mg PO Q8H PRN PRN Nausea 01/02/23 Unknown History pantoprazole 40 mg tablet,delayed 40 mg PO DAILY gerd 01/02/23 12/08/23 History release polyethylene glycol 3350 17 gram 17 g PO DAILY PRN constipation 01/02/23 Unknown History oral powder packet promethazine 12.5 mg tablet 12.5 mg PO Q8H PRN Nausea 01/02/23 07/15/23 History sennosides 8.6 mg-docusate sodium 1 tab-cap PO BID Constipation 01/02/23 07/16/23 History 50 mg capsule (Senna Plus) tacrolimus 1 mg capsule, 2 mg PO Q12H immunosuppressive 01/02/23 12/09/23 History immediate-release (Prograf) trazodone 50 mg tablet 50 mg PO QHS insomnia 01/02/23 12/08/23 History gabapentin 100 mg capsule 200 mg PO BID PHANTOM PAIN 04/21/23 12/09/23 History sevelamer HCl 800 mg tablet 2,400 mg PO TIDCM ESRD 04/21/23 07/16/23 History levothyroxine 150 mcg tablet 150 mcg PO DAILY@0600 07/16/23 12/09/23 History hypothyroidism oxycodone 10 mg tablet 10 mg PO Q4H PRN pain 2 days #12 07/19/23 Unknown Rx tabs acetaminophen 650 mg rectal 650 mg VT Q4H PRN fever or pain 08/06/23 Unknown History suppository glucagon 1 mg injection kit 1 mg subcut X1 PRN hypoglycemia 08/06/23 Unknown History magnesium hydroxide 400 mg/5 mL 30 ml PO DAILY PRN constipation 08/06/23 Unknown History oral suspension (Milk of Magnesia) ciclopirox 8 % topical solution 1 applic topical QHS nail fungus 11/17/23 Unknown History insulin lispro 100 unit/mL 9 unit subcut DAILY diabetes 11/17/23 Unknown History subcutaneous pen (Humalog KwikPen (U-100) Insulin) diphenhydramine-zinc acetate 2 1 applic topical Q6H PRN PRN 12/06/23 Unknown History %-0.1 % topical cream (Benadryl itching Extra Strength) escitalopram oxalate 10 mg tablet 15 mg PO QHS depression 12/30/23 Unknown History (Lexapro) vancomycin 1 gram/200 mL in 0.9 % 1 g (200 mL) IV .see below 16 days 01/02/24 Unknown Rx sod. chloride intravenous piggyback insulin lispro 100 unit/mL See Protocol subcut TIDCM 03/22/24 Unknown History subcutaneous pen insulin lispro 100 unit/mL 11 unit subcut DAILY@1700 03/22/24 Unknown History subcutaneous solution vitamin B complex-vitamin C-folic 1 tab PO DAILY 03/22/24 Unknown History acid 0.8 mg tablet Allergy/AdvReac Type Severity Reaction Status Date / Time No Known Allergies Allergy Verified 02/18/24 04:45 Family History Mother Hypertension Diabetes Father Hypertension Diabetes Surgical History History of kidney transplant S/P unilateral above knee amputation S/P foot surgery S/P colostomy Social History housing: [facility] Smoking Status: Never smoker alcohol intake: never substance use type: does not use ROS ROS ED ROS Narrative Review of systems is unable to be obtained secondary to altered mental status Review of Systems ROS Unobtainable: due to mental status EXAM Physical Exam Const Vital Signs: 03/22/24 01:32 03/22/24 01:37 03/22/24 01:38 Temperature 96.7 F L 96.7 F L Temperature Source Axillary Axillary Pulse Rate 88 85 Respiratory Rate 9 L 8 L Blood Pressure 189/116 H 189/116 H Blood Pressure Mean 140 140 Pulse Ox 98 93 87 Oxygen Delivery Method Room Air Room Air Room Air Oxygen Flow Rate (L/min) 03/22/24 01:39 03/22/24 02:31 03/22/24 02:37 Temperature 97.6 F L 97.6 F L Temperature Source Axillary Axillary Pulse Rate 82 82 Respiratory Rate 7 L 8 L Blood Pressure 191/107 H 191/107 H Blood Pressure Mean 135 135 Pulse Ox 98 100 98 Oxygen Delivery Method Nasal Cannula Nasal Cannula Nasal Cannula Oxygen Flow Rate (L/min) 2 2 03/22/24 03:00 03/22/24 03:41 03/22/24 04:00 Temperature 97.7 F L 97.6 F L 97.6 F L Temperature Source Axillary Axillary Pulse Rate 81 81 80 Respiratory Rate 11 L 10 L 10 L Blood Pressure 178/106 H 188/112 H 191/101 H Blood Pressure Mean 130 137 131 Pulse Ox 100 100 98 Oxygen Delivery Method Nasal Cannula Nasal Cannula Oxygen Flow Rate (L/min) 2 2 Positive well nourished, well developed and obese General Appearance ED: well developed Nutritional Appearance: obese HEENT HEENT Narrative: No tongue or cheek biting No signs of infection noted in the posterior pharynx Eyes EOMs intact bilaterally Eyes Narrative: Pupils are midpoint and sluggish to respond to light General Eye ED: Negative for scleral icterus Neck supple Neck Narrative: No nuchal rigidity or meningeal signs Chest Wall palpation of chest normal Chest Narrative: No bony deformity or crepitance noted Resp normal respiratory effort and clear to auscultation bilaterally Resp Narrative: Breath sounds are diminished throughout but overall clear to auscultation without signs of respiratory distress Cardio regular rate and regular rhythm GI non-distended and no masses GI Narrative: Abdomen is soft and nondistended with normal active bowel sounds. Patient has a colostomy in place in the left mid abdomen. There is also suprapubic catheter in place. There are no surrounding secondary soft tissue skin changes to suggest infection. No rigidity or distention noted. No pulsatile mass or peritoneal sign. Auscultation: normoactive bowel sounds Palpation: soft Narrative: Patient has chronic sacral decubitus ulcers that do not show any surrounding secondary findings to suggest cellulitis or abscess Extremity Extremity Narrative: There is a left below the knee amputation with the stump showing no soft tissue changes to suggest a secondary infection. Fistula is in place in the left forearm with palpable thrill and good bruit Neuro Neuro Narrative: Patient has a GCS of 13. He is obtunded and will awake to voice or touch but quickly fall back asleep. There is no obvious focal neurologic deficit. Sensorium / Orientation: lethargic Psych Mood & Affect: depressed Skin no rashes or lesions noted Skin Narrative: Skin turgor is increased with chronic sacral decubitus ulcers without secondary changes for infection as documented above MDM MDM MDM Narrative Medical decision making narrative: Patient arrived to the ER hypertensive but was afebrile and satting 100% on his normal 2 L. He is typically awake alert and oriented person place and time but is obtunded with GCS of 13 and only oriented to person. Potential diagnosis is for spontaneous subarachnoid or subdural hemorrhage as he is on Eliquis versus pneumonia versus UTI versus COVID versus influenza versus RSV. There is also potential for thyroid disorder or hyperammonemia or hepatic encephalopathy as a cause of his change in mental status. Secondary to this basic blood work was obtained as well as imaging studies. Head CT revealed no spontaneous bleed. Viral swab was negative. Despite the fact patient is on hemodialysis he still makes urine and urine sample does show changes consistent with infection. Therefore the urine was sent for culture and he was started on Rocephin. Patient does not have EKG changes but he is hyperkalemic with a potassium of 6 and therefore he was given calcium gluconate insulin and glucose as well as Kayexalate. The patient was discussed with nephrology on-call Dr. Holley. He feels as there is no EKG changes and the potassium is only 6 at this time that medical management should be sufficient and that the patient should be able to make it until Saturday for dialysis. He states that if we elect to perform a CT with contrast to further check for causes of his change in mental status that we have 24 hours before dialysis is required and therefore it is okay to perform a CT with IV contrast at this time. He also states that if dialysis is needed he would be willing to perform it. The patient did not have meningeal signs and therefore I felt no need for a lumbar puncture. However as he is immunosuppressed with history of kidney transplant and is in a [facility] there is concern that potential pneumonia on x-ray is nosocomial and therefore vancomycin and Zosyn were also added. The patient was also discussed with the hospitalist who agrees that based on his significant medical issues and his altered mental status that patient should undergo further testing to truly delineate the cause and also be placed in the ICU as his electrolyte abnormalities could worsen spontaneously therefore requiring emergent intervention. Lab Data Attestation: I reviewed the patient's lab results. Labs: Laboratory Results - last 24 hr 03/22/24 03/22/24 03/22/24 01:35 02:01 02:02 WBC 12.2 H RBC 3.47 L Hgb 9.3 L Hct 31.8 L MCV 91.6 MCH 26.8 L MCHC 29.2 L RDW Std Deviation 57.3 H RDW Coeff of Shanta 17.7 H Plt Count 149 L MPV 11.3 Immature Gran % (Auto) 0.500 Neut % (Auto) 71.2 H Lymph % (Auto) 15.8 L Bailey % (Auto) 6.4 Eos % (Auto) 5.4 H Baso % (Auto) 0.7 Absolute Neuts (auto) 8.7 H Absolute Lymphs (auto) 1.94 Nucleated RBC % 0 ESR 73 H PT 18.1 H INR 1.5 APTT 44.2 H Sodium 133 L Potassium 6.0 H* Chloride 96 L Carbon Dioxide 29.0 Anion Gap 8 BUN 61 H Creatinine 7.45 H* Estim Creat Clear Calc 19.58 Est GFR (MDRD) Af Amer 11 L Est GFR (MDRD) Non-Af 9 L BUN/Creatinine Ratio 8.2 L Glucose 108 H Lactic Acid Calcium 9.4 Phosphorus 5.6 H Total Bilirubin 0.70 Direct Bilirubin 0.20 AST 16 ALT 14 L Alkaline Phosphatase 107 Ammonia C-React Prot Ext Range 96.60 H Total Protein 9.2 H Albumin 2.7 L Globulin 6.5 H Procalcitonin 0.38 H TSH 2.450 Urine Color Red Urine Clarity Turbid Urine pH 7.0 Ur Specific Troy 1.015 Urine Protein 500 H Urine Glucose (UA) Normal Urine Ketones Negative Urine Occult Blood 50 H Urine Nitrite Negative Urine Bilirubin Negative Urine Urobilinogen Normal Ur Leukocyte Esterase Negative Urine RBC > 100 SEEN Urine WBC 10-25 SEEN Ur Squamous Epith Cells 0 SEEN Urine Bacteria 3+ Urine Mucus 0 SEEN Urine Opiates Screen NEGATIVE Urine Methadone Screen NEGATIVE Ur Barbiturates Screen NEGATIVE Ur Phencyclidine Scrn NEGATIVE Ur Amphetamines Screen NEGATIVE MDMA (Ecstasy) Screen NEGATIVE U Benzodiazepines Scrn NEGATIVE Urine Cocaine Screen NEGATIVE U Cannabinoids Screen NEGATIVE Ur Drug Screen Comment Ethyl Alcohol < 3.0 03/22/24 02:03 WBC RBC Hgb Hct MCV MCH MCHC RDW Std Deviation RDW Coeff of Shanta Plt Count MPV Immature Gran % (Auto) Neut % (Auto) Lymph % (Auto) Bailey % (Auto) Eos % (Auto) Baso % (Auto) Absolute Neuts (auto) Absolute Lymphs (auto) Nucleated RBC % ESR PT INR APTT Sodium Potassium Chloride Carbon Dioxide Anion Gap BUN Creatinine Estim Creat Clear Calc Est GFR (MDRD) Af Amer Est GFR (MDRD) Non-Af BUN/Creatinine Ratio Glucose Lactic Acid 0.6 Calcium Phosphorus Total Bilirubin Direct Bilirubin AST ALT Alkaline Phosphatase Ammonia 23.0 C-React Prot Ext Range Total Protein Albumin Globulin Procalcitonin TSH Urine Color Urine Clarity Urine pH Ur Specific Troy Urine Protein Urine Glucose (UA) Urine Ketones Urine Occult Blood Urine Nitrite Urine Bilirubin Urine Urobilinogen Ur Leukocyte Esterase Urine RBC Urine WBC Ur Squamous Epith Cells Urine Bacteria Urine Mucus Urine Opiates Screen Urine Methadone Screen Ur Barbiturates Screen Ur Phencyclidine Scrn Ur Amphetamines Screen MDMA (Ecstasy) Screen U Benzodiazepines Scrn Urine Cocaine Screen U Cannabinoids Screen Ur Drug Screen Comment Ethyl Alcohol ABG Data ABG results: ABG 03/22/24 01:57 Specimen Type YUN Sample Site Not entered O2 % 2.0 VBG pH 7.41 VBG pO2 55 H VBG HCO3 30 H VBG Total CO2 31 VBG O2 Sat (Calc) 88 H VBG Base Excess 5 H POC Mix VBG pCO2 Pt Tmp 46.9 O2 Delivery Device Cannula Radiography Diagnostic Testing: Clinical Impression(s) from Imaging Studies Brain CT 03/22/24 01:52 IMPRESSION: 1. No evidence of acute intracranial pathology. 2. Diffuse involutional changes and chronic ischemic small vessel white matter disease. AID[employer] was utilized to assist in identifying pertinent positive findings. Electronically Signed: Joel Amor MD at 3:23 EDT , Chest X-Ray 03/22/24 02:24 IMPRESSION: Atelectasis versus infiltrate in the retrocardiac region of the left lower lobe. Lateral view could be useful. 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
[2024-03-22 02:48] LABS: AST(SGOT) 16 U/L (15-37); Alanine Aminotransfer ALT/SGPT 14 U/L (16-61); Albumin, Serum 2.7 g/dL (3.2-5.0); Alkaline Phosphatase 107 U/L (45-117); Anion Gap 8 (5-15); BUN 61 mg/dL (7-18); BUN/Creat Ratio 8.2 RATIO (10-20); Calcium,Total 9.4 mg/dL (8.5-10.1); Chloride 96 mmol/L (98-107); Creatinine, Serum 7.45 mg/dL (0.70-1.30); EST Glomerular Filtration Rate 9 mL/min (>60); Est Glom Filt Rate - Afr Amer 11 mL/min (>60); Estimated Creatinine Clearance 19.58 ml/min; Globulin 6.5 g/dL (2.2-4.2); Glucose 108 mg/dL (74-106); Phosphorus 5.6 mg/dL (2.5-4.9); Protein, Total 9.2 g/dL (6.4-8.2); Sodium Level 133 mmol/L (136-145)
[2024-03-22] MEDS: Ceftriaxone 1 GM/50 ML BAG IV (02:56)
[2024-03-22 02:59] LABS: Amphetamine Urine VISTA NEGATIVE (<1000 ng/mL); Barbiturate Urine VISTA NEGATIVE (< 200 ng/mL); Benzodiazepine Urine VISTA NEGATIVE (< 200 ng/mL); Cocaine Urine VISTA NEGATIVE (< 300 ng/mL); Ecstacy Urine VISTA NEGATIVE (< 500 ng/mL); Methadone Urine VISTA NEGATIVE (< 300 ng/mL); PCP Urine VISTA NEGATIVE (< 25 ng/mL); THC Urine VISTA NEGATIVE (< 50 ng/mL); Vista UDS pH Range 8
[2024-03-22 03:18] LABS: Procalcitonin 0.38 ng/mL (0.00-0.09)
--- NOTE | 2024-03-22 03:36 | PCM.HP.STD ---
[facility] - General General Date of Admission: 03/22/24 Date of Service: 03/22/24 Chief Complaint: Confused and Lethargic. HPI Narrative CHINA SALGADO, is a 38 M with a past medical history of essential hypertension, hyperlipidemia, hypothyroidism, DM-2; of unknown control, morbid obesity; with BMI of 40.7 present on admission, chronic systolic CHF, history of kidney transplant; on Tacrolimus, ESRD on HD; (T--Sat) on Midodrine and followed by Dr. Peña of nephrology, history of paraplegia after T5-T6 injury; with patient in wheelchair, neurogenic bladder; with suprapubic catheter with patient still making urine, neurogenic bowel; s/p colostomy, history of Stage IV Left Perineal Ischial region Decubitus Ulcer with Osteomyelitis and SIRS; with patient residing at [facility], history of MRSA (07/2023), history of Left AKA; with subsequent 'phantom limb' pain on Gabapentin and PRN Oxycodone, history of DVT/PE; on Apixaban, history of pericardial effusion, anemia of chronic disease, depression, history of GERD; without esophagitis who presents to [facility] ER after the staff at his [facility] noted he was confused and lethargic. Mr. Salgado is not a reliable historian at this time so information was gathered from chart, medical staff and computer. According to the records he was noted to have a sharp decrease in his UOP from his suprapubic catheter but with frankly bloody urine also noted. There was no report of fever, chills, nausea, vomiting, diarrhea, constipation or other significant pathologic changes not already noted above. In the ER he was noted to have Hypertensive Emergency with a highly elevated blood pressure of 189/116 mmHg present on admission complicated by UA positive for Acute Cystitis; with hematuria likely primarily due to Adverse Drug Reaction to Apixaban with a corresponding Leukocytosis of 12.2K compounded by laboratory evidence of Hyperkalemia of 6 mmol/L present on admission along with a CXR positive for LLL infiltrate consistent with suspected Nosocomial Pneumonia all combining to cause Severe Metabolic Encephalopathy present on admission and he was then admitted to the ICU for ongoing care for a stay that is expected to extend beyond 2 midnights. 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 H/O deep venous thrombosis Osteomyelitis of pelvic region Lives in [facility] Anxiety Open wound Insulin dependent diabetes mellitus Uses wheelchair Injury of back Community acquired MRSA infection Non-healing wound of amputation stump DM type 2, goal HbA1c < 7% 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, stage 4 Hypomagnesemia Hyperosmolality and hypernatremia Neurogenic bowel Pericardial effusion (noninflammatory) SIRS (systemic inflammatory response syndrome) Pyrexia Chronic kidney disease with end stage renal failure on dialysis Kidney transplant failure Dependence on renal dialysis Pressure ulcer of left heel, unspecified stage Gastro-esophageal reflux disease without esophagitis Acute on chronic systolic (congestive) heart failure Other pericardial effusion (noninflammatory) Other pulmonary embolism without acute cor pulmonale Hypertensive heart and chronic kidney disease with heart failure and stage 1 through stage 4 chronic kidney disease, or unspecified chronic kidney disease Depression Hyperlipemia Hypothyroidism Anemia in chronic kidney disease Neuromuscular dysfunction of bladder, unspecified Paraplegia, incomplete Other acute osteomyelitis, left ankle and foot End stage renal disease Acute pulmonary edema Acute respiratory failure with hypoxia Home Medications ?Medication ?Instructions ?Recorded ?Last Taken ?Type acetaminophen 325 mg tablet 650 mg PO Q4H PRN PAIN/FEVER 01/02/23 04/21/23 History apixaban 5 mg tablet (Eliquis) 5 mg PO BID blood thinner 01/02/23 07/16/23 History ascorbic acid (vitamin C) 500 mg 500 mg PO QHS supplement 01/02/23 12/08/23 History tablet atorvastatin 40 mg tablet 40 mg PO QHS hypercholestremia 01/02/23 12/08/23 History bisacodyl 10 mg rectal suppository 10 mg WA DAILY PRN Constipation 01/02/23 Unknown History carvedilol 12.5 mg tablet 12.5 mg PO Q12H HYPERTENSION 01/02/23 12/09/23 History clotrimazole-betamethasone 1 1 applic topical QHS rash 01/02/23 07/15/23 History %-0.05 % topical cream dextrose 40 % oral gel (Glucose 15 g PO Q15M PRN Hypoglycemia 01/02/23 Unknown History Gel) hydralazine 25 mg tablet 50 mg PO Q8 hypertension 01/02/23 12/09/23 History insulin glargine 100 unit/mL (3 11 unit subcut 1700 diabetes 01/02/23 12/08/23 History mL) subcutaneous pen (Lantus Solostar U-100 Insulin) insulin lispro 100 unit/mL 6 unit subcut QHS diabetes 01/02/23 07/16/23 History subcutaneous pen (Humalog KwikPen (U-100) Insulin) midodrine 10 mg tablet 10 mg PO MOTUTHFR DIALYSIS 01/02/23 12/09/23 History ondansetron HCl 4 mg tablet 4 mg PO Q8H PRN PRN Nausea 01/02/23 Unknown History pantoprazole 40 mg tablet,delayed 40 mg PO DAILY gerd 01/02/23 12/08/23 History release polyethylene glycol 3350 17 gram 17 g PO DAILY PRN constipation 01/02/23 Unknown History oral powder packet promethazine 12.5 mg tablet 12.5 mg PO Q8H PRN Nausea 01/02/23 07/15/23 History sennosides 8.6 mg-docusate sodium 1 tab-cap PO BID Constipation 01/02/23 07/16/23 History 50 mg capsule (Senna Plus) tacrolimus 1 mg capsule, 2 mg PO Q12H immunosuppressive 01/02/23 12/09/23 History immediate-release (Prograf) trazodone 50 mg tablet 50 mg PO QHS insomnia 01/02/23 12/08/23 History gabapentin 100 mg capsule 200 mg PO BID PHANTOM PAIN 04/21/23 12/09/23 History sevelamer HCl 800 mg tablet 2,400 mg PO TIDCM ESRD 04/21/23 07/16/23 History levothyroxine 150 mcg tablet 150 mcg PO DAILY@0600 07/16/23 12/09/23 History hypothyroidism oxycodone 10 mg tablet 10 mg PO Q4H PRN pain 2 days #12 07/19/23 Unknown Rx tabs acetaminophen 650 mg rectal 650 mg WA Q4H PRN fever or pain 08/06/23 Unknown History suppository glucagon 1 mg injection kit 1 mg subcut X1 PRN hypoglycemia 08/06/23 Unknown History magnesium hydroxide 400 mg/5 mL 30 ml PO DAILY PRN constipation 08/06/23 Unknown History oral suspension (Milk of Magnesia) ciclopirox 8 % topical solution 1 applic topical QHS nail fungus 11/17/23 Unknown History insulin lispro 100 unit/mL 9 unit subcut DAILY diabetes 11/17/23 Unknown History subcutaneous pen (Humalog KwikPen (U-100) Insulin) diphenhydramine-zinc acetate 2 1 applic topical Q6H PRN PRN 12/06/23 Unknown History %-0.1 % topical cream (Benadryl itching Extra Strength) escitalopram oxalate 10 mg tablet 15 mg PO QHS depression 12/30/23 Unknown History (Lexapro) vancomycin 1 gram/200 mL in 0.9 % 1 g (200 mL) IV .see below 16 days 01/02/24 Unknown Rx sod. chloride intravenous piggyback insulin lispro 100 unit/mL See Protocol subcut TIDCM 03/22/24 Unknown History subcutaneous pen insulin lispro 100 unit/mL 11 unit subcut DAILY@1700 03/22/24 Unknown History subcutaneous solution vitamin B complex-vitamin C-folic 1 tab PO DAILY 03/22/24 Unknown History acid 0.8 mg tablet Allergy/AdvReac Type Severity Reaction Status Date / Time No Known Allergies Allergy Verified 02/18/24 04:45 Family History Mother Hypertension Diabetes Father Hypertension Diabetes Surgical History History of kidney transplant S/P unilateral above knee amputation S/P foot surgery S/P colostomy Social History housing: [facility] Smoking Status: Never smoker alcohol intake: never substance use type: does not use ROS ROS Narrative This patient is severely encephalopathic and acutely ill and therefore he cannot complete a ROS at this time. Vital Signs Vital Signs Vital Signs: 03/22/24 01:32 03/22/24 01:37 03/22/24 01:38 Temperature 96.7 F L 96.7 F L Temperature Source Axillary Axillary Pulse Rate 88 85 Respiratory Rate 9 L 8 L Blood Pressure 189/116 H 189/116 H Blood Pressure Mean 140 140 Pulse Ox 98 93 87 Oxygen Delivery Method Room Air Room Air Room Air Oxygen Flow Rate (L/min) 03/22/24 01:39 03/22/24 02:31 03/22/24 02:37 Temperature 97.6 F L 97.6 F L Temperature Source Axillary Axillary Pulse Rate 82 82 Respiratory Rate 7 L 8 L Blood Pressure 191/107 H 191/107 H Blood Pressure Mean 135 135 Pulse Ox 98 100 98 Oxygen Delivery Method Nasal Cannula Nasal Cannula Nasal Cannula Oxygen Flow Rate (L/min) 2 2 03/22/24 03:00 Temperature 97.7 F L Temperature Source Axillary Pulse Rate 81 Respiratory Rate 11 L Blood Pressure 178/106 H Blood Pressure Mean 130 Pulse Ox 100 Oxygen Delivery Method Nasal Cannula Oxygen Flow Rate (L/min) 2 Weight Weight: 300 lb 0.786 oz Body Mass Index (BMI) 40.6 Physical Exam Const no apparent distress Constitutional Narrative: Patient is lethargic but arousable. Morbidly obese and chronically ill in appearance. Orientation / Consciousness: lethargic HEENT normocephalic, head/scalp atraumatic, hearing grossly normal bilaterally and moist oral mucous membranes Eyes PERRL and EOMs intact bilaterally Neck no lymphadenopathy and supple Resp normal respiratory effort, no retractions and no use of accessory muscles Resp Narrative: Morbidly obese with decreased breath sounds throughout. Cardio regular rate and regular rhythm GI normal to inspection, nondistended, normoactive bowel sounds, soft to palpation, non-tender and non-distended GI Narrative: Morbidly obese. Extremity Extremity Narrative: Left AKA noted. Skin Skin Narrative: Patient has numerous scabs over the skin of his face. Neuro moves all extremities Neuro Narrative: Patient is lethargic but arousable. Psych Psych Narrative: Patient is lethargic but arousable. Results Medical Records Data Attestation: I reviewed the patient's medical records Lab / Micro Data Attestation: I reviewed the patient's lab results. 03/22/24 01:35 03/22/24 01:35 Labs: Laboratory Results - last 24 hr 03/22/24 01:35: WBC 12.2 H, RBC 3.47 L, Hgb 9.3 L, Hct 31.8 L, MCV 91.6, MCH 26.8 L, MCHC 29.2 L, RDW Std Deviation 57.3 H, RDW Coeff of Shanta 17.7 H, Plt Count 149 L, MPV 11.3, Immature Gran % (Auto) 0.500, Neut % (Auto) 71.2 H, Lymph % (Auto) 15.8 L, [place] % (Auto) 6.4, Eos % (Auto) 5.4 H, Baso % (Auto) 0.7, Absolute Neuts (auto) 8.7 H, Absolute Lymphs (auto) 1.94, Nucleated RBC % 0, ESR 73 H, PT 18.1 H, INR 1.5, APTT 44.2 H, Sodium 133 L, Potassium 6.0 H*, Chloride 96 L, Carbon Dioxide 29.0, Anion Gap 8, BUN 61 H, Creatinine 7.45 H*, Estim Creat Clear Calc 19.58, Est GFR (MDRD) Af Amer 11 L, Est GFR (MDRD) Non-Af 9 L, BUN/Creatinine Ratio 8.2 L, Glucose 108 H, Calcium 9.4, Phosphorus 5.6 H, Total Bilirubin 0.70, Direct Bilirubin 0.20, AST 16, ALT 14 L, Alkaline Phosphatase 107, C-React Prot Ext Range 96.60 H, Total Protein 9.2 H, Albumin 2.7 L, Globulin 6.5 H, TSH 2.450, Ethyl Alcohol < 3.0 03/22/24 02:01: Procalcitonin 0.38 H 03/22/24 02:02: Urine Color Red, Urine Clarity Turbid, Urine pH 7.0, Ur Specific Drums 1.015, Urine Protein 500 H, Urine Glucose (UA) Normal, Urine Ketones Negative, Urine Occult Blood 50 H, Urine Nitrite Negative, Urine Bilirubin Negative, Urine Urobilinogen Normal, Ur Leukocyte Esterase Negative, Urine RBC > 100 SEEN, Urine WBC 10-25 SEEN, Ur Squamous Epith Cells 0 SEEN, Urine Bacteria 3+, Urine Mucus 0 SEEN, Urine Opiates Screen NEGATIVE, Urine Methadone Screen NEGATIVE, Ur Barbiturates Screen NEGATIVE, Ur Phencyclidine Scrn NEGATIVE, Ur Amphetamines Screen NEGATIVE, MDMA (Ecstasy) Screen NEGATIVE, U Benzodiazepines Scrn NEGATIVE, Urine Cocaine Screen NEGATIVE, U Cannabinoids Screen NEGATIVE, Ur Drug Screen Comment 03/22/24 02:03: Lactic Acid 0.6, Ammonia 23.0 Micro: Microbiology 03/22/24 02:03 Mucosa - Nose SARS-CoV-2, Influenza & RSV (PCR) - Final ABG Data ABG results: ABG 03/22/24 01:57 Specimen Type YUN Sample Site Not entered O2 % 2.0 VBG pH 7.41 VBG pO2 55 H VBG HCO3 30 H VBG Total CO2 31 VBG O2 Sat (Calc) 88 H VBG Base Excess 5 H POC Mix VBG pCO2 Pt Tmp 46.9 O2 Delivery Device Cannula Imaging Radiology Impression Brain CT 03/22/24 01:52 IMPRESSION: 1. No evidence of acute intracranial pathology. 2. Diffuse involutional changes and chronic ischemic small vessel white matter disease. AIDOC was utilized to assist in identifying pertinent positive findings. Electronically Signed: Joel Amor MD at 3:23 EDT Reading Location ID and State: [id number] / [employer] Tel , Service support , Chest X-Ray 03/22/24 02:24 IMPRESSION: Atelectasis versus infiltrate in the retrocardiac region of the left lower lobe. Lateral view could be useful. Electronically Signed: Joel Amor MD at 3:05 EDT Reading Location ID and State: [employer] / [employer] Tel , Service support , [facility] Imaging Services [facility] [address] [place], [place] [address] CT Chest, Abd, Pelvis WO Cont MR#: [id number] Acct: [id number] Name: CHINA SALGADO III Rep #: [id number] : 1985 M 38 From: Mackenzie Melo MD PCP: Vanessa Hutchins MD Status: ADM IN Study: CT Chest, Abd, Pelvis WO Cont Date of Exam: 03/22/24 Exam# [id number] Ordering Dr: Joel French DO STUDY: CT CHEST, ABDOMEN T PELVIS WITHOUT CONTRAST REASON FOR EXAM: Male, 38 years old. PAIN HTN EMERGENCY, ACUTE CYSTITIS WITH HEMATURIA, DIAB, CKD, FAILED KIDNEY TRANSPLANT RADIATION DOSAGE (If Supplied By Facility): CTDIvol = ( 27.63 ) mGy, DLP = ( 2790.04 ) mGycm TECHNIQUE: Transaxial imaging was performed without the administration of intravenous contrast material. The protocol utilizes one or more of the following dose reduction techniques: automated exposure control, adjustment of mA and/or kV according to patient size,and/or use of iterative reconstruction technique. COMPARISON: No relevant prior comparison study available FINDINGS: ---CHEST LUNGS: Patchy groundglass opacities throughout the lungs greater in the upper lungs. No consolidation. LARGE AIRWAYS: Unremarkable. PLEURA: No pleural effusion. No pneumothorax. MEDIASTINUM: Unremarkable. HEART: Moderately enlarged. Minimal pericardial effusion CORONARY ARTERIES: Coronary artery calcifications are seen. AORTA/VESSELS: No aortic aneurysm. ESOPHAGUS: Unremarkable. BONES/SOFT TISSUES: No acute abnormality. Diffuse sclerosis throughout the bony skeleton. OTHER/LINES: NG tube tip in the stomach. ---ABDOMEN PELVIS LIVER: Grossly unremarkable. GALLBLADDER AND BILIARY TREE: Gallstone in the gallbladder. PANCREAS: Grossly unremarkable. SPLEEN: Grossly unremarkable. ADRENAL GLANDS: Grossly unremarkable. KIDNEYS AND URETERS: Atrophic [place] kidneys. No hydronephrosis. Renal transplant right lower abdomen with mild fullness of the renal collecting system/mild hydronephrosis and perinephric stranding. Small foci of air within the collecting system. No obstructing ureteral calculus identified No adjacent collection. PERITONEUM: No free air. No free fluid. BOWEL: Colostomy left lower abdomen. No bowel obstruction. APPENDIX: Not identified. VESSELS: Abdominal aorta is normal caliber. Extensive arterial calcifications. RETROPERITONEUM: Several prominent lymph nodes periaortic aortocaval, and along the iliac chains and pelvic sidewall. REPRODUCTIVE ORGANS: Grossly unremarkable URINARY BLADDER: Decompressed with suprapubic tube in place. Small amount of air in the bladder presumably related to the catheter Diffuse thickened wall. Adjacent stranding. ABDOMINAL WALL: Prominent inguinal lymph nodes bilaterally. BONES/SOFT TISSUES: Diffuse osseous sclerosis most likely related to renal disease. More focal sclerosis with irregularity of the left ischial tuberosity and inferior pubic ramus, with associated heterotopic ossification. Large overlying soft tissue defect with skin thickening presumed wound with packing, surrounding soft tissue edema. Relatively localized collection more posteriorly, midline extending to the left overlying the lower coccyx, measures approximately 5 x 2 cm axial by 3 cm cranial caudal. No air identified in the soft tissues. Mild presacral stranding. CT/CT Chest, Abd, Pelvis WO Cont IMPRESSION: 1. Bladder wall thickening consistent with cystitis. 2. Right renal transplant with mild hydroureteronephrosis. Air in the renal collecting system may be related to the presence of a suprapubic tube or recent procedure, but can be seen with infection. 3. Large wound or ulcer overlying the left ischial tuberosity with findings consistent with osteomyelitis. MRI may be helpful for further evaluation. Localized collection more posteriorly overlying the tip of the coccyx extending to the left, likely abscess. 4. Cholelithiasis. 5. CHEST: Diffuse groundglass opacities most consistent with pulmonary edema or viral pneumonitis. Cardiomegaly. Electronically Signed: Mackenzie Melo MD at 6:31 EDT , CC: Joel French DO; Vanessa Hutchins MD ~ Heel [place] Buffer: Signed Assessment & Plan Assessment/Plan (1) Hypertensive emergency: (2) Acute cystitis with hematuria: (3) Hyperkalemia: (4) ESRD (end stage renal disease) on dialysis: (5) Open wound of left buttock with complication: QUALIFIERS: Encounter type: initial encounter Qualified Code(s): S31.829A - Unspecified open wound of left buttock, initial encounter (6) Pneumonia: QUALIFIERS: Laterality: left Lung location: lower lobe of lung Pneumonia type: due to unspecified organism Qualified Code(s): J18.9 - Pneumonia, unspecified organism (7) Metabolic encephalopathy: (8) Hx of pulmonary embolus: (9) Type 2 diabetes mellitus: QUALIFIERS: Diabetes mellitus complication status: without complication Diabetes mellitus long term care phlebotomist insulin use: without long term care phlebotomist use Qualified Code(s): E11.9 - Type 2 diabetes mellitus without complications (10) Anticoagulant long-term use: (11) Paraplegia: (12) Phantom limb syndrome with pain: PLAN: Plan 1. Hypertensive Emergency with a highly elevated blood pressure of 189/116 mmHg present on admission - Admit to ICU. Place PICC with poor venous access with EJ placed in ER. Give Hydralazine IV prn systolic blood pressure > 160 mmHg plus give Bumex 2 mg IV daily to promote UOP. 2. UA positive for Acute Cystitis; with hematuria likely primarily due to Adverse Drug Reaction to Apixaban with Leukocytosis of 12.2K present on admission complicating #1 - Continue empiric IV Zosyn and IV Vancomycin for broad-coverage of nosocomial pathogens and then await culture and sensitivity data to narrow antibiotic spectrum. Hold Apixaban until hematuria resolves. Check STAT CT scan of the abdomen and pelvis to assess for other acute pathologic changes that may help to explain his acute severe illness. 3. Hyperkalemia of 6 mmol/L present on admission in the setting of known history of kidney transplant; on Tacrolimus and ESRD on HD; (T-Th-Sat) on Midodrine and followed by Dr. Peña of nephrology compounding #1 & #2 - Patient treated with full hyperkalemia protocol in ER with IV insulin and D50, IV Calcium Gluconate, loop diuretic and Kayexalate also ordered with repeat BMP pending to assess effectiveness of initial round of treatment in case he would need emergent HD. Check Prograf level. Finally, we will consult nephrology to see this patient on-rounds in the AM for further recommendations with help appreciated in advance. 4. CXR positive for LLL infiltrate consistent with suspected Nosocomial Pneumonia adding to the medical complexity of #1 - #3 - Patient started on IV Zosyn and IV Vancomycin for #2. Check urinary antigens for Streptococcus pneumonia and Legionella. 5. History of paraplegia after T5-T6 injury; with patient in wheelchair, neurogenic bladder; with suprapubic catheter with patient still making urine, neurogenic bowel; s/p colostomy, history of Stage IV Left Perineal Ischial region Decubitus Ulcer with Osteomyelitis and SIRS; with patient residing at [facility] adding to the disease burden of #1 - #4 - Noted with CT this admission positive for continued osteomyelitis with possible abscess. Finally, we will consult general surgeon on-call to see this patient for recommendations regarding possible I&D this admission with help appreciated in advance. 6. Severe Metabolic Encephalopathy arising from #1 - #5 - UDS negative. Minimize HISTORY CARD CLERK-active medications to allow sensorium to clear. Check TSH, B12 and Folate to evaluate for potentially reversible causes of confusion. Otherwise, continue supportive care and monitor for improvement. 7. Morbid obesity; with BMI of 40.7 present on admission with history of Left AKA; with subsequent 'phantom limb' pain on Gabapentin and PRN Oxycodone - Weight loss will be recommended. 8. History of DVT/PE; on Apixaban - Hold Apixaban until further notice in light of #2. 9. Hyperlipidemia - Resume statin when patient can tolerate oral intake. 10. Hypothyroidism - Continue Synthroid IV and check TSH. 11. DM-2; of unknown control - Keep NPO for now. FSBS q. 4 hours. Check HgbA1c to objectively evaluate the quality of diabteic control 12. Chronic systolic CHF - Stable. 13. History of pericardial effusion - Noted with radiographic evidence of recurrence. 14. Anemia of chronic disease - Stable with hemoglobin of 9.3 g/dL present on admission. 15. Depression - Restart home regimen when patient can safely tolerate oral intake. 16. History of GERD; without esophagitis - Give Protonix 40 mg IV daily. 17. DVT prophylaxis - SCD's only in light of #2. Total time: Approximately 75 minutes. Charges/Coding Visit Charges Inpatient E&M: 89817 Init Hosp L3
[2024-03-22] MEDS: Dextrose 10%-Water 250 ML 999 ML IV (03:40)
[2024-03-22] MEDS: Calcium Gluconate IV 3 GM in Syringe 1 EACH IV (03:57)
[2024-03-22] MEDS: Insulin Lispro 10 UNIT in Syringe 0 ML 6 UNIT IV (04:01)
[2024-03-22] MEDS: Piperacil/Tazobactam 2,250 MG in 0.9% Normal Saline (50mL MB+) 50 ML 100 MG IV (04:07)
--- NOTE | 2024-03-22 04:41 | CT_ITS ---
STUDY: CT CHEST, ABDOMEN T PELVIS WITHOUT CONTRAST REASON FOR EXAM: Male, 38 years old. PAIN HTN EMERGENCY, ACUTE CYSTITIS WITH HEMATURIA, DIAB, CKD, FAILED KIDNEY TRANSPLANT RADIATION DOSAGE (If Supplied By Facility): CTDIvol = ( 27.63 ) mGy, DLP = ( 2790.04 ) mGycm TECHNIQUE: Transaxial imaging was performed without the administration of intravenous contrast material. The protocol utilizes one or more of the following dose reduction techniques: automated exposure control, adjustment of mA and/or kV according to patient size,and/or use of iterative reconstruction technique. COMPARISON: No relevant prior comparison study available FINDINGS: ---CHEST LUNGS: Patchy groundglass opacities throughout the lungs greater in the upper lungs. No consolidation. LARGE AIRWAYS: Unremarkable. PLEURA: No pleural effusion. No pneumothorax. MEDIASTINUM: Unremarkable. HEART: Moderately enlarged. Minimal pericardial effusion CORONARY ARTERIES: Coronary artery calcifications are seen. AORTA/VESSELS: No aortic aneurysm. ESOPHAGUS: Unremarkable. BONES/SOFT TISSUES: No acute abnormality. Diffuse sclerosis throughout the bony skeleton. OTHER/LINES: NG tube tip in the stomach. ---ABDOMEN PELVIS LIVER: Grossly unremarkable. GALLBLADDER AND BILIARY TREE: Gallstone in the gallbladder. PANCREAS: Grossly unremarkable. SPLEEN: Grossly unremarkable. ADRENAL GLANDS: Grossly unremarkable. KIDNEYS AND URETERS: Atrophic [place] kidneys. No hydronephrosis. Renal transplant right lower abdomen with mild fullness of the renal collecting system/mild hydronephrosis and perinephric stranding. Small foci of air within the collecting system. No obstructing ureteral calculus identified No adjacent collection. PERITONEUM: No free air. No free fluid. BOWEL: Colostomy left lower abdomen. No bowel obstruction. APPENDIX: Not identified. VESSELS: Abdominal aorta is normal caliber. Extensive arterial calcifications. RETROPERITONEUM: Several prominent lymph nodes periaortic aortocaval, and along the iliac chains and pelvic sidewall. REPRODUCTIVE ORGANS: Grossly unremarkable URINARY BLADDER: Decompressed with suprapubic tube in place. Small amount of air in the bladder presumably related to the catheter Diffuse thickened wall. Adjacent stranding. ABDOMINAL WALL: Prominent inguinal lymph nodes bilaterally. BONES/SOFT TISSUES: Diffuse osseous sclerosis most likely related to renal disease. More focal sclerosis with irregularity of the left ischial tuberosity and inferior pubic ramus, with associated heterotopic ossification. Large overlying soft tissue defect with skin thickening presumed wound with packing, surrounding soft tissue edema. Relatively localized collection more posteriorly, midline extending to the left overlying the lower coccyx, measures approximately 5 x 2 cm axial by 3 cm cranial caudal. No air identified in the soft tissues. Mild presacral stranding. CT/CT Chest, Abd, Pelvis WO Cont IMPRESSION: 1. Bladder wall thickening consistent with cystitis. 2. Right renal transplant with mild hydroureteronephrosis. Air in the renal collecting system may be related to the presence of a suprapubic tube or recent procedure, but can be seen with infection. 3. Large wound or ulcer overlying the left ischial tuberosity with findings consistent with osteomyelitis. MRI may be helpful for further evaluation. Localized collection more posteriorly overlying the tip of the coccyx extending to the left, likely abscess. 4. Cholelithiasis. 5. CHEST: Diffuse groundglass opacities most consistent with pulmonary edema or viral pneumonitis. Cardiomegaly. Electronically Signed: Mackenzie Melo MD at 6:31 EDT ,
[2024-03-22] MEDS: Vancomycin HCl 2,000 MG in 0.9% Normal Saline (500mL Bag) 500 ML 250 MG IV (05:08)
[2024-03-22] MEDS: Sodium Polystyrene Sulfonate 15 GM/60 ML UDC 30 GM PO ×2 (06:00→19:51)
--- NOTE | 2024-03-22 06:43 | PCM.RX.CS ---
Consult Antibiotic Management Pharmacy has been consulted to manage selected antibiotic: Vancomycin Type of Intervention Type of Consult: New start Labs Labs: Sodium 133 mmol/L (136-145) L 03/22/24 01:35 Potassium 6.0 mmol/L (3.5-5.1) H* 03/22/24 01:35 Chloride 96 mmol/L (98-107) L 03/22/24 01:35 Carbon Dioxide 29.0 mmol/L (21.0-32.0) 03/22/24 01:35 Anion Gap 8 (5-15) 03/22/24 01:35 BUN 61 mg/dL (7-18) H 03/22/24 01:35 Creatinine 7.45 mg/dL (0.70-1.30) H* 03/22/24 01:35 Est GFR (MDRD) Af Amer 11 mL/min (>60) L 03/22/24 01:35 Est GFR (MDRD) Non-Af 9 mL/min (>60) L 03/22/24 01:35 BUN/Creatinine Ratio 8.2 RATIO (10-20) L 03/22/24 01:35 Glucose 108 mg/dL (74-106) H 03/22/24 01:35 Microbiology Microbiology: Microbiology 03/22/24 02:03 Mucosa - Nose SARS-CoV-2, Influenza & RSV (PCR) - Final Dosing Weight Weight used for dosin.5 kg Estimated Creatinine Clearance Estimated Creatinine Clearance: 19.58 Goal Trough Goal Trough: 15-20 mcg/mL Pharmacy Plan for Drug Dosing Pharmacy Plan for Drug Dosing: Initial vancomycin dose was given in ED 03/22/24 @0508. Previous dialysis schedule was noted as , -- pharmacy will verify with nursing and arrange next dose of vanco to be given post-HD. Pharmacy Service will continue to monitor and adjust dosing as required.
[2024-03-22] MEDS: Bumetanide 1 MG/4 ML Vial 2 MG IV (06:50)
[2024-03-22] MEDS: 0.9% Saline Lock 10 ML Syringe IV ×2 (06:54→15:36)
[2024-03-22] MEDS: hydrALAZINE 20 MG/ML Vial 10 MG IV ×2 (06:55→15:48)
--- NOTE | 2024-03-22 07:11 | PN.HOSP_ITS ---
Reason for Visit Reason for Visit: Diagnoses Type 2 diabetes mellitus without complications (03/22/24) Hyperkalemia (03/22/24) Phantom limb syndrome with pain (03/22/24) Paraplegia, unspecified (03/22/24) Metabolic encephalopathy (03/22/24) Hypertensive emergency (03/22/24) Pneumonia, unspecified organism (03/22/24) End stage renal disease (03/22/24) Acute cystitis with hematuria (03/22/24) Unspecified open wound of left buttock, initial encounter (03/22/24) care home (current) use of 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 (03/22/24) Personal history of pulmonary embolism (03/22/24) Dependence on renal dialysis (03/22/24) Subjective Subjective Still confused, but able to say some things. Objective Data Objective Data Vital Signs: Vital Signs Temp Pulse Resp BP Pulse Ox O2 Del Method O2 Flow Rate 36.1 C L 88 7 L 212/99 H 100 Nasal Cannula 2 03/22/24 06:45 03/22/24 07:00 03/22/24 07:00 03/22/24 07:00 03/22/24 07:00 03/22/24 07:00 03/22/24 07:00 Oxygen Flow Rate (L/min) 2 Oxygen Delivery Method Nasal Cannula Weight: 133.5 kg Body Mass Index (BMI) 39.9 Intake & Output: Intake and Output for Last 24 Hours 03/20/24 03/21/24 03/22/24 23:59 23:59 23:59 Intake Total 391.25 / 391.25 Balance 391.25 / 391.25 Lab / Micro Data 03/22/24 01:35 03/22/24 06:50 Labs: Laboratory Results - last 24 hr 03/22/24 01:35: WBC 12.2 H, RBC 3.47 L, Hgb 9.3 L, Hct 31.8 L, MCV 91.6, MCH 26.8 L, MCHC 29.2 L, RDW Std Deviation 57.3 H, RDW Coeff of [place] 17.7 H, Plt Count 149 L, MPV 11.3, Immature Gran % (Auto) 0.500, Neut % (Auto) 71.2 H, Lymph % (Auto) 15.8 L, [place] % (Auto) 6.4, Eos % (Auto) 5.4 H, Baso % (Auto) 0.7, A bsolute Neuts (auto) 8.7 H, Absolute Lymphs (auto) 1.94, Nucleated RBC % 0, ESR 73 H, PT 18.1 H, INR 1.5, APTT 44.2 H, Sodium 133 L, Potassium 6.0 H*, Chloride 96 L, Carbon Dioxide 29.0, Anion Gap 8, BUN 61 H, Creatinine 7.45 H*, Estim Creat Clear Calc 19.58, Est GFR (MDRD) Af Amer 11 L, Est GFR (MDRD) Non-Af 9 L, BUN/Creatinine Ratio 8.2 L, Glucose 108 H, Calcium 9.4, Phosphorus 5.6 H, Total Bilirubin 0.70, Direct Bilirubin 0.20, AST 16, ALT 14 L, Alkaline Phosphatase 107, C-React Prot Ext Range 96.60 H, Total Protein 9.2 H, Albumin 2.7 L, G lobulin 6.5 H, Folate 26.60, TSH 2.450 03/22/24 01:35: TSH 2.390, Ethyl Alcohol < 3.0 03/22/24 02:01: Procalcitonin 0.38 H 03/22/24 02:02: Urine Color Red, Urine Clarity Turbid, Urine pH 7.0, Ur Specific [place] 1.015, Urine Protein 500 H, Urine Glucose (UA) Normal, Urine Ketones Negative, Urine Occult Blood 50 H, Urine Nitrite Negative, Urine Bilirubin Negative, Urine Urobilinogen Normal, Ur Leukocyte Esterase Negative, Urine RBC > 100 SEEN, Urine WBC 10-25 SEEN, Ur Squamous Epith Cells 0 SEEN, Urine Bacteria 3+, Urine Mucus 0 SEEN, Urine Opiates Screen NEGATIVE, Urine Methadone Screen NEGATIVE, Ur Barbiturates Screen NEGATIVE, Ur Phencyclidine Scrn NEGATIVE, Ur Amphetamines Screen NEGATIVE, MDMA (Ecstasy) Screen NEGATIVE, U Benzodiazepines Scrn NEGATIVE, Urine Cocaine Screen NEGATIVE, U Cannabinoids Screen NEGATIVE, Ur Drug Screen Comment 03/22/24 02:03: Lactic Acid 0.6, Ammonia 23.0 Micro: Microbiology 03/22/24 02:03 Mucosa - Nose SARS-CoV-2, Influenza & RSV (PCR) - Final ABG Data ABG results: ABG 03/22/24 01:57 Specimen Type YUN Sample Site Not entered O2 % 2.0 VBG pH 7.41 VBG pO2 55 H VBG HCO3 30 H VBG Total CO2 31 VBG O2 Sat (Calc) 88 H VBG Base Excess 5 H POC Mix VBG pCO2 Pt Tmp 46.9 O2 Delivery Device Cannula Radiography Diagnostic Testing: Radiology Impression Brain CT 03/22/24 01:52 IMPRESSION: 1. No evidence of acute intracranial pathology. 2. Diffuse involutional changes and chronic ischemic small vessel white matter disease. AIDOC was utilized to assist in identifying pertinent positive findings. Electronically Signed: Joel Amor MD at 3:23 EDT , Chest X-Ray 03/22/24 02:24 IMPRESSION: Atelectasis versus infiltrate in the retrocardiac region of the left lower lobe. Lateral view could be useful. Electronically Signed: Joel Amor MD at 3:05 EDT , Chest/Abdomen/Pelvis CT 03/22/24 04:41 IMPRESSION: 1. Bladder wall thickening consistent with cystitis. 2. Right renal transplant with mild hydroureteronephrosis. Air in the renal collecting system may be related to the presence of a suprapubic tube or recent procedure, but can be seen with infection. 3. Large wound or ulcer overlying the left ischial tuberosity with findings consistent with osteomyelitis. MRI may be helpful for further evaluation. Localized collection more posteriorly overlying the tip of the coccyx extending to the left, likely abscess. 4. Cholelithiasis. 5. CHEST: Diffuse groundglass opacities most consistent with pulmonary edema or viral pneumonitis. Cardiomegaly. Electronically Signed: Mackenzie Melo MD at 6:31 EDT , Physical Exam Const Constitutional Narrative: NG tube in right nares with some blood and packing around the tube. Orientation / Consciousness: confused HEENT head/scalp atraumatic and moist oral mucous membranes Neck no lymphadenopathy Resp normal respiratory effort, no retractions, no use of accessory muscles and clear to auscultation bilaterally Cardio regular rate, regular rhythm, S1 normal heart sound and S2 normal heart sound GI normal to inspection, nondistended, normoactive bowel sounds, soft to palpation, non-tender and non-distended Extremity Extremity Narrative: sloughing of skin on plantar aspect of right foot. AKA on left. Stump intact. Assessment & Plan Assessment/Plan (1) Hypertensive emergency: (2) Acute cystitis with hematuria: (3) Hyperkalemia: (4) ESRD (end stage renal disease) on dialysis: (5) Open wound of left buttock with complication: QUALIFIERS: Encounter type: initial encounter Qualified Code(s): S31.829A - Unspecified open wound of left buttock, initial encounter (6) Pneumonia: QUALIFIERS: Laterality: left Lung location: lower lobe of lung P neumonia type: due to unspecified organism Qualified Code(s): J18.9 - Pneumonia, unspecified organism (7) Metabolic encephalopathy: (8) Anticoagulant long-term use: PLAN: Plan Hypertensive Emergency * initial improvement, then back up despite the bumetanide. Patient with change in mental status. * Resume carvedilol, hydralazine. Hold midodrine * As needed hydralazine Hematuria * Apixaban on hold. CAT scan noted bladder wall thickening consistent with cystitis. Unclear if true UTI. Possible urinary tract infection, catheter associated * With the exception of that hematuria, the urine is rather benign for infection, however, the CAT scan was commenting about the bladder wall thickening, consistent with cystitis. * Piperacillin/tazobactam * Patient has a suprapubic catheter in place Decubitus ulcer * CAT scan showed a large wound or ulcer overlying the left ischial tuberosity with findings consistent with osteomyelitis. * Plastics on consult. * Pip-tazo and vancomycin Encephalopathy * Suspect metabolic given hypertensive urgency but will need to hold potentiating medications, including gabapentin. Head CT negative. * Head CT showed no acute process. * NG tube placed previously likely due to mental status change as patient was not having any demonstrable nausea and vomiting to suggest a small bowel obstruction or ileus. Since is already in place, will keep it in for now until patient can be deemed safe to eat and drink. Epistaxis * Likely NG tube induced. * Monitor for now End-stage renal disease * On hemodialysis. Nephrology on consultation. Patient is status post a renal transplant. On sevelamer. Still takes tacrolimus, unclear what still taking tacrolimus despite failed transplant.. Hyperkalemia * Received calcium gluconate, Kayexalate * Follow-up labs pending Abnormal chest x-ray * Doubt pneumonia suspect more volume overload and CHF. Chronic conditions * History of paraplegia after T5-T6 injury; with patient in wheelchair, neurogenic bladder; with suprapubic catheter with patient still making urine, neurogenic bowel; s/p colostomy, history of Stage IV Left Perineal Ischial region Decubitus Ulcer with Osteomyelitis and SIRS; with patient residing at [facility] adding to the disease burden of #1 - #4 - Noted with CT this admission positive for continued osteomyelitis with possible abscess. Finally, we will consult general surgeon on-call to see this patient for recommendations regarding possible I&D this admission with help appreciated in advance. * Obesity class III: Complicates care and recovery * History of DVT/PE: Apixaban on hold given hematuria * Hyperlipidemia: Continue statin * Hypothyroidism: Continue with levothyroxine. TSH within normal limits. * DM-2: On glargine 70 units currently as well as sliding scale. * History of pericardial effusion: Patient has no echocardiogram in our system. Will check. * Anemia of chronic disease: Stable. * Depression: Hold escitalopram given the encephalopathy. * GERD: Continue PPI VTE prophylaxis SCDs Charges/Coding Procedures Hospitalists Procedures: Other Procedure - See Report (Nonbillable rounding as patient was admitted after midnight.)
--- NOTE | 2024-03-22 07:28 | EX.PCM.CON.S ---
Assessment & Plan Assessment/Plan (1) Left ischial pressure sore: PLAN: Recommending [facility] wet to dry dressings 3 times daily while in house Needs pressure offloading with every 2 turns and needs a pressure offloading bed ordered (no pressure on the left ischial wound) No signs of significant infection around the ischial wound other than likely chronic osteomyelitis given that it probes down to the bone and he has had positive cultures in the past from recent wound excisions. There is a possibility that the abscess drained digitally during my examination was what was seen on the CT scan (likely), but given that there was some strange purulence around his anus, if there continues to be this drainage, would recommend considering evaluation for possible perianal abscess that would not be an continuation with the ischial wound (would be a general surgery consult for the perianal abscess if present). 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 He was admitted at [facility] from 07/16/23 to 07/19/23 for a cough, fever and chills. Patient was admitted for acutely infected chronic left ischial/sacral wound with concern for osteomyelitis, started on IV antibiotics. He has a history of ESRD on hemodialysis. History of failed kidney transplant, chronic systolic heart failure, hypertension, hyperlipidemia, diabetes mellitus type II, left AKA, and incomplete paraplegia. He resides at [facility] where he receives his hemodialysis. He had an operative debridement of his left ischial ulcer at [facility] 2 years ago, per the patient. CT of abdomen and pelvis on 07/16/23, related to the ulcer showed There is a decubitus ulcer in the left gluteus with extension into and sclerotic and erosive involvement of the left initial tuberosity. This is concerning for osteomyelitis. Ischial wound culture obtained on 07/16/23 which was positive for Proteus mirabilis, Escherichia coli, Enterococcus gallinarum, and MRSA. ID was consulted and he was treated with Vancomycin and Zosyn IV He was discharged on Linezolid and Augmentin and has finished them. He developed a wound on his left AKA stump which is now healed. Left AKA wound culture from 08/22/23 positive for Proteus mirabilis. He was started on Augmentin and has finished them. Left ischial ulcer wound culture from 10/15/23 positive for Proteus mirabilis, MRSA, Enterococcus faecalis, Enterococcus avium Anaerobic cocci. He was treated with Augmentin and Doxycycline. Surgery 12/09/23 - Excision left ischial pressure sore, Stage IV, with partial ostectomy for osteomyelitis. Operative tissue cultures positive for Proteus mirabilis, Enterococcus faecalis, Staphylococcus epidermidis, Prevotella nanceiensis, and Anaerobic cocci. Operative bone cultures positive for Proteus mirabilis, Enterococcus raffinosus, Staphylococcus epidermidis, and Fingodia magna. ID is managing this and he is on 6 weeks of Ertapenem and Vancomycin to be dosed with hemodialysis (MTTF). Surgery 12/30/[address] Garcia for Irrigation and washout of the left buttock ischial wound with packing. Patient was having issues with bleeding. His wound VAC was stopped, he continued to have problems with bleeding, he was sent to the ED where he was evaluated by Dr. Garcia and was immediately taken to the OR. He went to the ICU for Acute blood loss anemia with hypotension and Hemorrhagic shock. He was transfused 4 units of PRBC's. He was transferred back to [facility] on 01/03/24. HPI FROM TODAY, 22 MAR 2024: I saw and examined the patient this morning. Upon review of the documentation (patient is encephalopathic and can only say I, but cannot give any historical information this morning), patient has been admitted for sepsis in the setting of pneumonia, possible urinary tract infection versus drug reaction causing hematuria, and possible perineal/gluteal abscess in the setting of chronic wounds. Patient has a complicated past medical history including kidney transplant with the need for now persistent Saturday dialysis. He has a suprapubic catheter. He is also paraplegic from a T-spine injury. He has been admitted to the ICU at [facility] for treatment of the above-noted conditions and I was consulted for evaluation of the wounds in the setting of a CT scan that demonstrated a potential fluid collection near the coccyx (which may or may not be in continuation with the left ischial wound). [facility] Medical History Hyperkalemia Pneumonia Anemia in chronic kidney disease, on chronic dialysis intermediate frame tender (current) use of 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 H/O deep venous thrombosis Osteomyelitis of pelvic region Lives in group home Anxiety Open wound Insulin dependent diabetes mellitus Uses wheelchair Injury of back Community acquired MRSA infection Non-healing wound of amputation stump DM type 2, goal HbA1c < 7% 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, stage 4 Hypomagnesemia Hyperosmolality and hypernatremia Neurogenic bowel Pericardial effusion (noninflammatory) SIRS (systemic inflammatory response syndrome) Pyrexia Chronic kidney disease with end stage renal failure on dialysis Kidney transplant failure Dependence on renal dialysis Pressure ulcer of left heel, unspecified stage Gastro-esophageal reflux disease without esophagitis Acute on chronic systolic (congestive) heart failure Other pericardial effusion (noninflammatory) Other pulmonary embolism without acute cor pulmonale Hypertensive heart and chronic kidney disease with heart failure and stage 1 through stage 4 chronic kidney disease, or unspecified chronic kidney disease Depression Hyperlipemia Hypothyroidism Anemia in chronic kidney disease Neuromuscular dysfunction of bladder, unspecified Paraplegia, incomplete Other acute osteomyelitis, left ankle and foot End stage renal disease Acute pulmonary edema Acute respiratory failure with hypoxia Home Medications ?Medication ?Instructions ?Recorded ?Last Taken ?Type acetaminophen 325 mg tablet 650 mg PO Q4H PRN PAIN/FEVER 01/02/23 04/21/23 History apixaban 5 mg tablet (Eliquis) 5 mg PO BID blood thinner 01/02/23 07/16/23 History ascorbic acid (vitamin C) 500 mg 500 mg PO QHS supplement 01/02/23 12/08/23 History tablet atorvastatin 40 mg tablet 40 mg PO QHS hypercholestremia 01/02/23 12/08/23 History bisacodyl 10 mg rectal suppository 10 mg DE DAILY PRN Constipation 01/02/23 Unknown History carvedilol 12.5 mg tablet 12.5 mg PO Q12H HYPERTENSION 01/02/23 12/09/23 History clotrimazole-betamethasone 1 1 applic topical QHS rash 01/02/23 07/15/23 History %-0.05 % topical cream dextrose 40 % oral gel (Glucose 15 g PO Q15M PRN Hypoglycemia 01/02/23 Unknown History Gel) hydralazine 25 mg tablet 50 mg PO Q8 hypertension 01/02/23 12/09/23 History insulin glargine 100 unit/mL (3 11 unit subcut 1700 diabetes 01/02/23 12/08/23 History mL) subcutaneous pen (Lantus Solostar U-100 Insulin) insulin lispro 100 unit/mL 6 unit subcut QHS diabetes 01/02/23 07/16/23 History subcutaneous pen (Humalog KwikPen (U-100) Insulin) midodrine 10 mg tablet 10 mg PO MOTUTHFR DIALYSIS 01/02/23 12/09/23 History ondansetron HCl 4 mg tablet 4 mg PO Q8H PRN PRN Nausea 01/02/23 Unknown History pantoprazole 40 mg tablet,delayed 40 mg PO DAILY gerd 01/02/23 12/08/23 History release polyethylene glycol 3350 17 gram 17 g PO DAILY PRN constipation 01/02/23 Unknown History oral powder packet promethazine 12.5 mg tablet 12.5 mg PO Q8H PRN Nausea 01/02/23 07/15/23 History sennosides 8.6 mg-docusate sodium 1 tab-cap PO BID Constipation 01/02/23 07/16/23 History 50 mg capsule (Senna Plus) tacrolimus 1 mg capsule, 2 mg PO Q12H immunosuppressive 01/02/23 12/09/23 History immediate-release (Prograf) trazodone 50 mg tablet 50 mg PO QHS insomnia 01/02/23 12/08/23 History gabapentin 100 mg capsule 200 mg PO BID PHANTOM PAIN 04/21/23 12/09/23 History sevelamer HCl 800 mg tablet 2,400 mg PO TIDCM ESRD 04/21/23 07/16/23 History levothyroxine 150 mcg tablet 150 mcg PO DAILY@0600 07/16/23 12/09/23 History hypothyroidism oxycodone 10 mg tablet 10 mg PO Q4H PRN pain 2 days #12 07/19/23 Unknown Rx tabs acetaminophen 650 mg rectal 650 mg DE Q4H PRN fever or pain 08/06/23 Unknown History suppository glucagon 1 mg injection kit 1 mg subcut X1 PRN hypoglycemia 08/06/23 Unknown History magnesium hydroxide 400 mg/5 mL 30 ml PO DAILY PRN constipation 08/06/23 Unknown History oral suspension (Milk of Magnesia) ciclopirox 8 % topical solution 1 applic topical QHS nail fungus 11/17/23 Unknown History insulin lispro 100 unit/mL 9 unit subcut DAILY diabetes 11/17/23 Unknown History subcutaneous pen (Humalog KwikPen (U-100) Insulin) diphenhydramine-zinc acetate 2 1 applic topical Q6H PRN PRN 12/06/23 Unknown History %-0.1 % topical cream (Benadryl itching Extra Strength) escitalopram oxalate 10 mg tablet 15 mg PO QHS depression 12/30/23 Unknown History (Lexapro) vancomycin 1 gram/200 mL in 0.9 % 1 g (200 mL) IV .see below 16 days 01/02/24 Unknown Rx sod. chloride intravenous piggyback insulin lispro 100 unit/mL See Protocol subcut TIDCM 03/22/24 Unknown History subcutaneous pen insulin lispro 100 unit/mL 11 unit subcut DAILY@1700 03/22/24 Unknown History subcutaneous solution vitamin B complex-vitamin C-folic 1 tab PO DAILY 03/22/24 Unknown History acid 0.8 mg tablet Allergy/AdvReac Type Severity Reaction Status Date / Time No Known Allergies Allergy Verified 02/18/24 04:45 Family History Mother Hypertension Diabetes Father Hypertension Diabetes Surgical History History of kidney transplant S/P unilateral above knee amputation S/P foot surgery S/P colostomy Social History housing: group home Smoking Status: Never smoker alcohol intake: never substance use type: does not use Physical Exam Narrative Left ischial wound Seen and examined today and probed digitally. I was able to enter a fluid collection superiorly and medially with my finger and this was cultured. There was some purulence around his anus, which may or may not have been draining from the ischial wound or from another sinus tract (possible perianal abscess), but the purulent drainage around his anus was not reproducible. The wound was 4 x 4 cm and tract 5 cm deep down to bone and tunneled 4 cm superiorly towards the coccyx. Stage IV. No signs of induration or cellulitis around the wound. No further fluid collections. Const Orientation / Consciousness: confused GI GI Narrative: Nasogastric tube in place Lab / Micro Data 03/22/24 01:35 03/22/24 06:50 Labs: Laboratory Results - last 24 hr 03/22/24 01:35: WBC 12.2 H, RBC 3.47 L, Hgb 9.3 L, Hct 31.8 L, MCV 91.6, MCH 26.8 L, MCHC 29.2 L, RDW Std Deviation 57.3 H, RDW Coeff of Shanta 17.7 H, Plt Count 149 L, MPV 11.3, Immature Gran % (Auto) 0.500, Neut % (Auto) 71.2 H, Lymph % (Auto) 15.8 L, [place] % (Auto) 6.4, Eos % (Auto) 5.4 H, Baso % (Auto) 0.7, Absolute Neuts (auto) 8.7 H, Absolute Lymphs (auto) 1.94, Nucleated RBC % 0, ESR 73 H, PT 18.1 H, INR 1.5, APTT 44.2 H, Sodium 133 L, Potassium 6.0 H*, Chloride 96 L, Carbon Dioxide 29.0, Anion Gap 8, BUN 61 H, Creatinine 7.45 H*, Estim Creat Clear Calc 19.58, Est GFR (MDRD) Af Amer 11 L, Est GFR (MDRD) Non-Af 9 L, BUN/Creatinine Ratio 8.2 L, Glucose 108 H, Calcium 9.4, Phosphorus 5.6 H, Total Bilirubin 0.70, Direct Bilirubin 0.20, AST 16, ALT 14 L, Alkaline Phosphatase 107, C-React Prot Ext Range 96.60 H, Total Protein 9.2 H, Albumin 2.7 L, Globulin 6.5 H, Folate 26.60, TSH 2.450 03/22/24 01:35: TSH 2.390, Ethyl Alcohol < 3.0 03/22/24 02:01: Procalcitonin 0.38 H 03/22/24 02:02: Urine Color Red, Urine Clarity Turbid, Urine pH 7.0, Ur Specific [place] 1.015, Urine Protein 500 H, Urine Glucose (UA) Normal, Urine Ketones Negative, Urine Occult Blood 50 H, Urine Nitrite Negative, Urine Bilirubin Negative, Urine Urobilinogen Normal, Ur Leukocyte Esterase Negative, Urine RBC > 100 SEEN, Urine WBC 10-25 SEEN, Ur Squamous Epith Cells 0 SEEN, Urine Bacteria 3+, Urine Mucus 0 SEEN, Urine Opiates Screen NEGATIVE, Urine Methadone Screen NEGATIVE, Ur Barbiturates Screen NEGATIVE, Ur Phencyclidine Scrn NEGATIVE, Ur Amphetamines Screen NEGATIVE, MDMA (Ecstasy) Screen NEGATIVE, U Benzodiazepines Scrn NEGATIVE, Urine Cocaine Screen NEGATIVE, U Cannabinoids Screen NEGATIVE, Ur Drug Screen Comment 03/22/24 02:03: Lactic Acid 0.6, Ammonia 23.0 Micro: Microbiology 03/22/24 02:03 Mucosa - Nose SARS-CoV-2, Influenza & RSV (PCR) - Final ABG Data ABG results: ABG 03/22/24 01:57 Specimen Type YUN Sample Site Not entered O2 % 2.0 VBG pH 7.41 VBG pO2 55 H VBG HCO3 30 H VBG Total CO2 31 VBG O2 Sat (Calc) 88 H VBG Base Excess 5 H POC Mix VBG pCO2 Pt Tmp 46.9 O2 Delivery Device Cannula Imaging Radiology Impression Brain CT 03/22/24 01:52 IMPRESSION: 1. No evidence of acute intracranial pathology. 2. Diffuse involutional changes and chronic ischemic small vessel white matter disease. AIDOC was utilized to assist in identifying pertinent positive findings. Electronically Signed: Joel Amor MD at 3:23 EDT , Chest X-Ray 03/22/24 02:24 IMPRESSION: Atelectasis versus infiltrate in the retrocardiac region of the left lower lobe. Lateral view could be useful. Electronically Signed: Joel Amor MD at 3:05 EDT , Chest/Abdomen/Pelvis CT 03/22/24 04:41 IMPRESSION: 1. Bladder wall thickening consistent with cystitis. 2. Right renal transplant with mild hydroureteronephrosis. Air in the renal collecting system may be related to the presence of a suprapubic tube or recent procedure, but can be seen with infection. 3. Large wound or ulcer overlying the left ischial tuberosity with findings consistent with osteomyelitis. MRI may be helpful for further evaluation. Localized collection more posteriorly overlying the tip of the coccyx extending to the left, likely abscess. 4. Cholelithiasis. 5. CHEST: Diffuse groundglass opacities most consistent with pulmonary edema or viral pneumonitis. Cardiomegaly. Electronically Signed: Mackenzie Melo MD at 6:31 EDT , I personally evaluated the CT of the abdomen pelvis. I saw small fluid collection around the coccyx that may or may not extend to the left ischial wound. Charges/Coding Multi Select Codes Visit Charges Office Visit/Consults: 64177 IP Consult L5 (I personally reviewed the advanced imaging, I performed a thorough examination of the wound at bedside including digital abscess drainage and ordered cultures. Reviewed extensive medical history. )
[2024-03-22 07:47] LABS: Anion Gap 10 (5-15); BUN 62 mg/dL (7-18); Calcium,Total 10.1 mg/dL (8.5-10.1); Chloride 98 mmol/L (98-107); Creatinine, Serum 7.74 mg/dL (0.70-1.30); EST Glomerular Filtration Rate 8 mL/min (>60); Est Glom Filt Rate - Afr Amer 10 mL/min (>60); Estimated Creatinine Clearance 18.65 ml/min; Glucose 129 mg/dL (74-106); Sodium Level 135 mmol/L (136-145)
--- NOTE | 2024-03-22 07:56 | ECHOCS_ITS ---
Reason For Study: PERICARDIAL EFFUSION Procedure This was a 2D Doppler, Color Flow transthoracic echocardiogram. The study was technically difficult. Contrast injection was performed. Patient was scanned in sitting position during reflux assessment. Exam performed portable in ICU/CCU. Left Ventricle Moderate concentric left ventricular hypertrophy. Mildly dilated left ventricle. The left ventricular ejection fraction is 50 %. Diastolic function is indeterminate. Right Ventricle Normal right ventricle. Atria The left atrium is mildly enlarged. Normal right atrium. Mitral Valve Mild mitral annular calcification. Trivial mitral valve insufficiency. Tricuspid Valve Normal tricuspid valve. Aortic Valve Aortic valve off axis and parasternal short axis view. However it appears trileaflet. Pulmonic Valve Trivial pulmonic valve insufficiency. Great Vessels Mildly dilated aortic root. Pericardium/Pleural No pericardial effusion. Medication Diluted definity 3ml given slow IV push to enhance endocardial definition. MMode/2D Measurements & Calculations LVIDd: 6.2 cm IVSd: 1.6 cm LVOT diam: 2.2 cm LVIDs: 4.7 cm LVPWd: 1.5 cm FS: 24.4 % LVOT area: 3.7 cm2 asc Aorta Diam: 3.6 cm LAV(MOD-bp): 105.5 ml LVAd ap4: 49.0 cm2 LAV(MOD-bp) Indexed: 42.1 ml/m2 LVLd ap4: 9.6 cm LAV(MOD-sp2): 127.5 ml EDV(MOD-sp4): 205.9 ml LAV(MOD-sp4): 86.5 ml EDV(sp4-el): 213.1 ml LVAs ap4: 29.3 cm2 LVLs ap4: 8.0 cm ESV(MOD-sp4): 88.3 ml ESV(sp4-el): 91.6 ml EF(MOD-sp4): 57.1 % EF(sp4-el): 57.0 % LVAd ap2: 54.9 cm2 SV(MOD-sp4): 117.6 ml SV(MOD-sp2): 131.5 ml LVLd ap2: 9.8 cm EDV(MOD-sp2): 252.8 ml EDV(sp2-el): 261.3 ml LVAs ap2: 36.6 cm2 LVLs ap2: 9.2 cm ESV(MOD-sp2): 121.3 ml ESV(sp2-el): 123.8 ml EF(MOD-sp2): 52.0 % SV(sp4-el): 121.5 ml Ao sinus diam: 4.[address] Junction: 3.5 cm LA dimension(2D): 4.7 cm LA A4 area: 28.4 cm2 RA A4 area: 23.6 cm2 TAPSE: 2.1 cm Time Measurements MV dec time: 0.15 sec Doppler Measurements & Calculations MV E max connor: 100.9 cm/sec Lat Peak E' Connor: 15.9 cm/sec Med Peak E' Connor: 10.4 cm/sec MV A max connor: 95.5 cm/sec E/E' lat: 6.3 E/E' med: 9.7 MV E/A: 1.1 Ao V2 max: 150.0 cm/sec LV V1 max: 122.4 cm/sec SV(LVOT): 79.9 ml Ao max P.0 mmHg LV V1 max P.0 mmHg Ao V2 mean: 93.4 cm/sec LV V1 mean P.6 mmHg Ao mean P.3 mmHg LV V1 mean: 90.4 cm/sec Ao V2 VTI: 28.3 cm LV V1 VTI: 21.4 cm AV (velocity ratio): 0.76 EUSEBIA(I,D): 2.8 cm2 EUSEBIA(V,D): 3.0 cm2 PA V2 max: 102.5 cm/sec PA max PG (full): 2.7 mmHg ECHO/Echo Complete W/ Contrast Interpretation Summary Moderate concentric left ventricular hypertrophy. Mildly dilated left ventricle. The left ventricular ejection fraction is 50 %. Diastolic function is indeterminate. The left atrium is mildly enlarged. Mild mitral annular calcification. Mildly dilated aortic root. The study was technically difficult. Ordering Physician: Ben Schwartz Performed By: Carol Aranda RDCS
[2024-03-22] MEDS: Carvedilol 12.5 MG Tablet PO ×2 (10:10→15:36)
[2024-03-22] MEDS: Tacrolimus Anhydrous 1 MG Capsule 2 MG PO (10:15)
[2024-03-22] MEDS: Pantoprazole Sodium 40 MG Tablet PO (10:16)
[2024-03-22] MEDS: hydrALAZINE 50 MG Tablet PO ×2 (10:16→15:34)
[2024-03-22 10:46] LABS: Bedside Glucose 131 mg/dL (74-106)
[2024-03-22] MEDS: Sodium Polystyrene Sulfonate 15 GM/60 ML UDC 30 GM NG (12:40)
[2024-03-22] MEDS: Nicardipine HCl-0.9% Sod Chlor 20 MG/200 ML IV.SOLN 50 MG CONT INF (12:45)
[2024-03-22 12:54] LABS: Bedside Glucose 137 mg/dL (74-106)
[2024-03-22] MEDS: TITRATION PARAMETER CHANGE 1 EACH IV (15:35)
[2024-03-22] MEDS: 0.9% Normal Saline (250mL Bag) 250 ML 15 ML IV (15:39)
[2024-03-22 17:49] LABS: Bedside Glucose 144 mg/dL (74-106)
[2024-03-22 17:52] LABS: Absolute Neutrophil Count 10.2 X10^3/uL (2.0-7.7); Basophil# 0.07 X10^3/uL; Basophil% 0.6 % (0-1); Eosinophil# 0.34 X10^3/uL; Eosinophils% 2.8 % (0-5); Hematocrit 29.5 % (40-54); Lymphocyte % 8.9 % (19-41); Mean Corp Hgb Conc 30.5 g/dL (32-36); Mean Corpuscular Hgb 27.4 pg (27.0-32.0); Mean Corpuscular Volume 89.7 fL (80-94); Mean Platelet Vol. 10.8 fl (6.2-12.0); Monocyte% 4.9 % (0-10); NRBC Flagged by Analyzer 0 % (0-5); Neutrophil # 10.17 X10^3/uL (2.7-7.7); Neutrophil % 82.4 % (47-70); Platelet Count 155 K/mm3 (150-450); RBC Distribution Width CV 18.1 % (11.6-14.6); RBC Distribution Width SD 57.6 fl (35.1-43.9); Red Blood Count 3.29 M/mm3 (4.6-6.2); White Blood Count 12.3 K/mm3 (4.4-11.0)
[2024-03-22 17:56] LABS: International Normalized Ratio 1.4; Prothrombin Time (Protime)PT. 16.6 SECONDS (11.7-14.9)
--- NOTE | 2024-03-22 18:20 | CON.PCM.CC_ITS ---
HPI Consult Data Date of Consult: 03/22/24 HPI Narrative HPI Narrative: ANN MARIE SALGADO, is a 38 M with a past medical history of essential hypertension, hyperlipidemia, hypothyroidism, DM-2; of unknown control, morbid obesity; with BMI of 40.7 present on admission, chronic systolic CHF, history of kidney transplant; on Tacrolimus, ESRD on HD; (T-Th-Sat) on Midodrine and followed by Dr. Peña of nephrology, history of paraplegia after T5-T6 injury; with patient in wheelchair, neurogenic bladder; with suprapubic catheter with patient still making urine, neurogenic bowel; s/p colostomy, history of Stage IV Left Perineal Ischial region Decubitus Ulcer with Osteomyelitis and SIRS; with patient residing at [facility], history of MRSA (07/2023), history of Left AKA; with subsequent 'phantom limb' pain on Gabapentin and PRN Oxycodone, history of DVT/PE; on Apixaban, history of pericardial effusion, anemia of chronic disease, depression, history of GERD; without esophagitis who presents to [facility] ER after the staff at his [facility] noted he was confused and lethargic. Mr. aSlgado is not a reliable historian at this time so information was gathered from chart, medical staff and computer. According to the records he was noted to have a sharp decrease in his UOP from his suprapubic catheter but with frankly bloody urine also noted. There was no report of fever, chills, nausea, vomiting, diarrhea, constipation or other significant pathologic changes not already noted above. Evelyn came to from his facility and states that he was confused last night. He was found to have an elevated BP and UA that was positive for infection. CXR show he had LLL infiltrate In the ICU evelyn has been on hyperK protocol . He been started on cardene for his BP. Lines - EJ Tubes - NG, supra pubic and colostomy Gtts - cardene 2.5mg PFSH Medical History Hyperkalemia Pneumonia Anemia in chronic kidney disease, on chronic dialysis [facility] (current) use of 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 H/O deep venous thrombosis Osteomyelitis of pelvic region Lives in [facility]p Anxiety Open wound Insulin dependent diabetes mellitus Uses wheelchair Injury of back Community acquired MRSA infection Non-healing wound of amputation stump DM type 2, goal HbA1c < 7% 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, stage 4 Hypomagnesemia Hyperosmolality and hypernatremia Neurogenic bowel Pericardial effusion (noninflammatory) SIRS (systemic inflammatory response syndrome) Pyrexia Chronic kidney disease with end stage renal failure on dialysis Kidney transplant failure Dependence on renal dialysis Pressure ulcer of left heel, unspecified stage Gastro-esophageal reflux disease without esophagitis Acute on chronic systolic (congestive) heart failure Other pericardial effusion (noninflammatory) Other pulmonary embolism without acute cor pulmonale Hypertensive heart and chronic kidney disease with heart failure and stage 1 through stage 4 chronic kidney disease, or unspecified chronic kidney disease Depression Hyperlipemia Hypothyroidism Anemia in chronic kidney disease Neuromuscular dysfunction of bladder, unspecified Paraplegia, incomplete Other acute osteomyelitis, left ankle and foot End stage renal disease Acute pulmonary edema Acute respiratory failure with hypoxia Home Medications ?Medication ?Instructions ?Recorded ?Last Taken ?Type acetaminophen 325 mg tablet 650 mg PO Q4H PRN PAIN/FEVER 01/02/23 04/21/23 History apixaban 5 mg tablet (Eliquis) 5 mg PO BID blood thinner 01/02/23 07/16/23 History ascorbic acid (vitamin C) 500 mg 500 mg PO QHS supplement 01/02/23 12/08/23 History tablet atorvastatin 40 mg tablet 40 mg PO QHS hypercholestremia 01/02/23 12/08/23 History bisacodyl 10 mg rectal suppository 10 mg NE DAILY PRN Constipation 01/02/23 Unknown History carvedilol 12.5 mg tablet 12.5 mg PO Q12H HYPERTENSION 01/02/23 12/09/23 History clotrimazole-betamethasone 1 1 applic topical QHS rash 01/02/23 07/15/23 History %-0.05 % topical cream dextrose 40 % oral gel (Glucose 15 g PO Q15M PRN Hypoglycemia 01/02/23 Unknown History Gel) hydralazine 25 mg tablet 50 mg PO Q8 hypertension 01/02/23 12/09/23 History insulin glargine 100 unit/mL (3 11 unit subcut 1700 diabetes 01/02/23 12/08/23 History mL) subcutaneous pen (Lantus Solostar U-100 Insulin) insulin lispro 100 unit/mL 6 unit subcut QHS diabetes 01/02/23 07/16/23 History subcutaneous pen (Humalog KwikPen (U-100) Insulin) midodrine 10 mg tablet 10 mg PO MOTUTHFR DIALYSIS 01/02/23 12/09/23 History ondansetron HCl 4 mg tablet 4 mg PO Q8H PRN PRN Nausea 01/02/23 Unknown History pantoprazole 40 mg tablet,delayed 40 mg PO DAILY gerd 01/02/23 12/08/23 History release polyethylene glycol 3350 17 gram 17 g PO DAILY PRN constipation 01/02/23 Unknown History oral powder packet promethazine 12.5 mg tablet 12.5 mg PO Q8H PRN Nausea 01/02/23 07/15/23 History sennosides 8.6 mg-docusate sodium 1 tab-cap PO BID Constipation 01/02/23 07/16/23 History 50 mg capsule (Senna Plus) tacrolimus 1 mg capsule, 2 mg PO Q12H immunosuppressive 01/02/23 12/09/23 History immediate-release (Prograf) trazodone 50 mg tablet 50 mg PO QHS insomnia 01/02/23 12/08/23 History gabapentin 100 mg capsule 200 mg PO BID PHANTOM PAIN 04/21/23 12/09/23 History sevelamer HCl 800 mg tablet 2,400 mg PO TIDCM ESRD 04/21/23 07/16/23 History levothyroxine 150 mcg tablet 150 mcg PO DAILY@0600 07/16/23 12/09/23 History hypothyroidism oxycodone 10 mg tablet 10 mg PO Q4H PRN pain 2 days #12 07/19/23 Unknown Rx tabs acetaminophen 650 mg rectal 650 mg NE Q4H PRN fever or pain 08/06/23 Unknown History suppository glucagon 1 mg injection kit 1 mg subcut X1 PRN hypoglycemia 08/06/23 Unknown History magnesium hydroxide 400 mg/5 mL 30 ml PO DAILY PRN constipation 08/06/23 Unknown History oral suspension (Milk of Magnesia) ciclopirox 8 % topical solution 1 applic topical QHS nail fungus 11/17/23 Unknown History insulin lispro 100 unit/mL 9 unit subcut DAILY diabetes 11/17/23 Unknown History subcutaneous pen (Humalog KwikPen (U-100) Insulin) diphenhydramine-zinc acetate 2 1 applic topical Q6H PRN PRN 12/06/23 Unknown History %-0.1 % topical cream (Benadryl itching Extra Strength) escitalopram oxalate 10 mg tablet 15 mg PO QHS depression 12/30/23 Unknown History (Lexapro) vancomycin 1 gram/200 mL in 0.9 % 1 g (200 mL) IV .see below 16 days 01/02/24 Unknown Rx sod. chloride intravenous piggyback insulin lispro 100 unit/mL See Protocol subcut TIDCM 03/22/24 Unknown History subcutaneous pen insulin lispro 100 unit/mL 11 unit subcut DAILY@1700 03/22/24 Unknown History subcutaneous solution vitamin B complex-vitamin C-folic 1 tab PO DAILY 03/22/24 Unknown History acid 0.8 mg tablet Allergy/AdvReac Type Severity Reaction Status Date / Time No Known Allergies Allergy Verified 02/18/24 04:45 Family History Mother Hypertension Diabetes Father Hypertension Diabetes Surgical History History of kidney transplant S/P unilateral above knee amputation S/P foot surgery S/P colostomy Social History housing: [facility] Smoking Status: Never smoker alcohol intake: never substance use type: does not use ROS Review of Systems ROS Unobtainable: due to mental status Objective Data Objective Data Vital Signs: Vital Signs Last response 3 Temperature 36.6 C 03/22/24 15:45 Temperature Source Temporal 03/22/24 15:45 Pulse Rate 91 03/22/24 16:15 Respiratory Rate 6 L 03/22/24 16:15 Respiratory Effort Normal 03/22/24 16:00 Respiratory Depth Normal 03/22/24 16:00 Respiratory Pattern Normal 03/22/24 16:00 Blood Pressure 200/84 H 03/22/24 17:45 Blood Pressure Mean 122 03/22/24 17:45 Blood Pressure Source Monitor 03/22/24 16:15 Blood Pressure Position Semi-Fowlers 03/22/24 16:15 Blood Pressure Location Right Arm 03/22/24 16:15 Pulse Ox 94 03/22/24 16:15 Oxygen Delivery Method Room Air 03/22/24 16:15 Oxygen Flow Rate (L/min) 2 03/22/24 08:00 I&O: I&O Last 24 Hours 3 03/21/24 03/22/24 03/22/24 23:59 11:59 23:59 Intake Total 1041.25 / 1110.84 69.59 / 1110.84 Output Total 25 / Balance 1041.25 / 1085.84 44.59 / 1085.84 I&O: Total Stay 3 03/22/24 01:31 thru 03/22/24 17:48 Intake Total 1110.84 Output Total 25 Balance 1085.84 Current Meds Ordered / Administered: Current meds ordered / Administered 3 Generic Name Dose Route Start Last Admin Trade Name Freq PRN Reason Stop Dose Admin Acetaminophen 650 mg 03/22/24 06:14 Acetaminophen 650 Mg Suppository RC Q4H PRN PRN fever or pain 1-10 Atorvastatin Calcium 40 mg 03/22/24 22:00 Atorvastatin Calcium 40 Mg Tablet PO QHS [facility] Carvedilol 12.5 mg 03/22/24 08:00 03/22/24 15:36 Carvedilol 12.5 Mg Tablet PO 12.5 mg BIDCM [facility] Administration Protocol Clotrimazole 1 applic 03/22/24 22:00 Clotrimazole/Betamethasone [facility] Protocol Escitalopram Oxalate 15 mg 03/22/24 22:00 Escitalopram Oxalate 10 Mg Tablet PO QHS [facility] Glucagon 1 mg 03/22/24 06:14 Glucagon 1 Mg/Ml Syringe SC X1 PRN hypoglycemia Hydralazine HCl 10 mg 03/22/24 06:14 03/22/24 15:48 Hydralazine 20 Mg/Ml Vial IV 10 mg Q6H PRN PRN Administration SBP GREATER THAN 160 Protocol Hydralazine HCl 50 mg 03/22/24 14:00 03/22/24 15:34 Hydralazine 50 Mg Tablet PO 50 mg Q8 [facility] Administration Protocol Vancomycin IV-PHARMACY TO DOSE 500 mls @ 250 mls/hr 03/22/24 06:14 1 each/ Sodium Chloride IV PRN PRN Rx to Dose Protocol Piperacillin Sod/Tazobactam 50 mls @ 12.5 mls/hr 03/22/24 22:00 Sod 3.375 gm/ Sodium Chloride IV Q12 TARUN Sodium Chloride 250 mls @ 15 mls/hr 03/22/24 06:24 03/22/24 15:39 IV 15 mls/hr .[id number] PRN Administration Additional IVPB Infusion Sodium Chloride 250 mls @ 15 mls/hr 03/22/24 06:24 IV .[id number] PRN Saline Flush Nicardipine/Sodium Chloride 20 mg in 200 mls @ 50 mls/hr 03/22/24 13:00 03/22/24 17:45 Cardene-Joe 20 Mg/200 Ml Soln CONT INF 2.5 mg/hr Q4H TARUN 25 mls/hr Titration Protocol 5 MG/HR Insulin Glargine 7 unit 03/22/24 17:00 03/22/24 17:34 Insulin Glargine-Yfgn 100 Unit/Ml Pen SC Not Given 1700 [facility] Insulin Human Lispro 0 unit 03/22/24 08:00 03/22/24 17:33 Insulin Lispro 100 Unit/Ml Insuln.Pen SC Not Given TIDCM [facility] Protocol Levothyroxine Sodium 150 mcg 03/23/24 06:00 Levothyroxine 150 Mcg Tablet PO DAILY@0600 [facility] Pantoprazole Sodium 40 mg 03/22/24 10:00 03/22/24 10:16 Pantoprazole Sodium 40 Mg Tablet PO 40 mg DAILY TARUN Administration Sevelamer Carbonate 2,400 mg 03/22/24 08:00 03/22/24 17:34 Sevelamer Carbonate 800 Mg Tablet PO Not Given TIDCM [facility] Sodium Chloride 10 - 40 ml 03/22/24 06:24 03/22/24 15:36 0.9% Saline Lock 10 Ml Syringe IV 20 ml UD PRN Administration SALINE FLUSH Sodium Hypochlorite 0 ml 03/22/24 10:00 03/22/24 10:16 Dakin's Dalia Half Strength (=0.25%) TOPICAL Not Given BID [facility] Protocol Tacrolimus 1 mg 03/22/24 20:00 Tacrolimus Anhydrous 1 Mg Capsule PO Q12H [facility] Physical Exam Const General Appearance: lethargic HEENT normocephalic Eyes PERRL Resp normal respiratory effort and no use of accessory muscles Cardio regular rate, regular rhythm and S1 normal heart sound GI GI Narrative: colostomy Back/Spine Back/Spine Narrative: Decubuitus ulcer on back Neuro Neuro Narrative: lethargic male Lab / Micro Data 03/22/24 17:40 03/22/24 06:50 Labs: Laboratory Results - last 24 hr 03/22/24 01:35: WBC 12.2 H, RBC 3.47 L, Hgb 9.3 L, Hct 31.8 L, MCV 91.6, MCH 26.8 L, MCHC 29.2 L, RDW Std Deviation 57.3 H, RDW Coeff of Shanta 17.7 H, Plt Count 149 L, MPV 11.3, Immature Gran % (Auto) 0.500, Neut % (Auto) 71.2 H, Lymph % (Auto) 15.8 L, [place] % (Auto) 6.4, Eos % (Auto) 5.4 H, Baso % (Auto) 0.7, A bsolute Neuts (auto) 8.7 H, Absolute Lymphs (auto) 1.94, Nucleated RBC % 0, ESR 73 H, PT 18.1 H, INR 1.5, APTT 44.2 H, Sodium 133 L, Potassium 6.0 H*, Chloride 96 L, Carbon Dioxide 29.0, Anion Gap 8, BUN 61 H, Creatinine 7.45 H*, Estim Creat Clear Calc 19.58, Est GFR (MDRD) Af Amer 11 L, Est GFR (MDRD) Non-Af 9 L, BUN/Creatinine Ratio 8.2 L, Glucose 108 H, Calcium 9.4, Phosphorus 5.6 H, Total Bilirubin 0.70, Direct Bilirubin 0.20, AST 16, ALT 14 L, Alkaline Phosphatase 107, C-React Prot Ext Range 96.60 H, Total Protein 9.2 H, Albumin 2.7 L, G lobulin 6.5 H, Folate 26.60, TSH 2.450 03/22/24 01:35: TSH 2.390, Ethyl Alcohol < 3.0 03/22/24 02:01: Procalcitonin 0.38 H 03/22/24 02:02: Urine Color Red, Urine Clarity Turbid, Urine pH 7.0, Ur Specific [place] 1.015, Urine Protein 500 H, Urine Glucose (UA) Normal, Urine Ketones Negative, Urine Occult Blood 50 H, Urine Nitrite Negative, Urine Bilirubin Negative, Urine Urobilinogen Normal, Ur Leukocyte Esterase Negative, Urine RBC > 100 SEEN, Urine WBC 10-25 SEEN, Ur Squamous Epith Cells 0 SEEN, Urine Bacteria 3+, Urine Mucus 0 SEEN, Urine Opiates Screen NEGATIVE, Urine Methadone Screen NEGATIVE, Ur Barbiturates Screen NEGATIVE, Ur Phencyclidine Scrn NEGATIVE, Ur Amphetamines Screen NEGATIVE, MDMA (Ecstasy) Screen NEGATIVE, U Benzodiazepines Scrn NEGATIVE, Urine Cocaine Screen NEGATIVE, U Cannabinoids Screen NEGATIVE, Ur Drug Screen Comment 03/22/24 02:03: Lactic Acid 0.6, Ammonia 23.0 03/22/24 06:50: Sodium 135 L, Potassium 6.0 H*, Chloride 98, Carbon Dioxide 27.0, Anion Gap 10, BUN 62 H, Creatinine 7.74 H*, Estim Creat Clear Calc 18.65, Est GFR (MDRD) Af Amer 10 L, Est GFR (MDRD) Non-Af 8 L, BUN/Creatinine Ratio 8.0 L, Glucose 129 H, Calcium 10.1 03/22/24 10:28: POC Glucose 131 H 03/22/24 12:23: POC Glucose 137 H 03/22/24 17:32: POC Glucose 144 H 03/22/24 17:40: WBC 12.3 H, RBC 3.29 L, Hgb 9.0 L, Hct 29.5 L, MCV 89.7, MCH 27.4, MCHC 30.5 L, RDW Std Deviation 57.6 H, RDW Coeff of Shanta 18.1 H, Plt Count 155, MPV 10.8, Immature Gran % (Auto) 0.400, Neut % (Auto) 82.4 H, Lymph % (Auto) 8.9 L, [place] % (Auto) 4.9, Eos % (Auto) 2.8, Baso % (Auto) 0.6, Absolute Neuts (auto) 10.2 H, Absolute Lymphs (auto) 1.10, Nucleated RBC % 0, PT 16.6 H, INR 1.4 Micro: Microbiology 03/22/24 02:03 Mucosa - Nose SARS-CoV-2, Influenza & RSV (PCR) - Final ABG Data ABG results: ABG 03/22/24 01:57 Specimen Type YUN Sample Site Not entered O2 % 2.0 VBG pH 7.41 VBG pO2 55 H VBG HCO3 30 H VBG Total CO2 31 VBG O2 Sat (Calc) 88 H VBG Base Excess 5 H POC Mix VBG pCO2 Pt Tmp 46.9 O2 Delivery Device Cannula Imaging Radiology Impression Brain CT 03/22/24 01:52 IMPRESSION: 1. No evidence of acute intracranial pathology. 2. Diffuse involutional changes and chronic ischemic small vessel white matter disease. AIDOC was utilized to assist in identifying pertinent positive findings. Electronically Signed: Joel Amor MD at 3:23 EDT , Chest X-Ray 03/22/24 02:24 IMPRESSION: Atelectasis versus infiltrate in the retrocardiac region of the left lower lobe. Lateral view could be useful. Electronically Signed: Joel Amor MD at 3:05 EDT , Chest/Abdomen/Pelvis CT 03/22/24 04:41 IMPRESSION: 1. Bladder wall thickening consistent with cystitis. 2. Right renal transplant with mild hydroureteronephrosis. Air in the renal collecting system may be related to the presence of a suprapubic tube or recent procedure, but can be seen with infection. 3. Large wound or ulcer overlying the left ischial tuberosity with findings consistent with osteomyelitis. MRI may be helpful for further evaluation. Localized collection more posteriorly overlying the tip of the coccyx extending to the left, likely abscess. 4. Cholelithiasis. 5. CHEST: Diffuse groundglass opacities most consistent with pulmonary edema or viral pneumonitis. Cardiomegaly. Electronically Signed: Mackenzie Melo MD at 6:31 EDT , Assessment and Plan . Assessment and plan: Acute metabolic encephalopathy UTI Hypertensive emergency ESRD Transplanted kidney DM II CHF Hyperkalemia Decubitus ulcer HCAP - currency on vanc and zosyn for UTI / pneumonia - on cardene for hypertensive urgency ; will increaser hydralazine to 75 mg TID - patient pending dialysis for tomorrow - will reheck K - patient given bumex IV mg but only had 25 cc of blood - wound care saw patient, given dressings BID. Cultures sent - on prograf Critical Care Time: 60 mins The entirety of this encounter was done via Telemedicine
[2024-03-22 18:34] LABS: Anion Gap 10 (5-15); BUN 69 mg/dL (7-18); BUN/Creat Ratio 8.5 RATIO (10-20); Calcium,Total 9.5 mg/dL (8.5-10.1); Chloride 97 mmol/L (98-107); Creatinine, Serum 8.16 mg/dL (0.70-1.30); EST Glomerular Filtration Rate 8 mL/min (>60); Est Glom Filt Rate - Afr Amer 10 mL/min (>60); Estimated Creatinine Clearance 17.69 ml/min; Glucose 171 mg/dL (74-106); Sodium Level 134 mmol/L (136-145)
[2024-03-22] MEDS: Tacrolimus Anhydrous 1 MG Capsule PO (19:51)
[2024-03-22] MEDS: Dextrose 50%-Water 25 GM/50 ML DISP.SYRIN IV (19:51)
[2024-03-22] MEDS: hydrALAZINE 25 MG Tablet 75 MG PO (20:45)
[2024-03-22] MEDS: Clotrimazole/Betamethasone 1 Tube 1 APPLIC TOPICAL (20:50)
[2024-03-22] MEDS: Piperacil/Tazobactam 3.375 GM in 0.9% Normal Saline (50mL MB+) 50 ML IV (20:51)
[2024-03-22 20:53] LABS: Allen Test Positive; Base Excess 6 mmol/L (-2 to +2); Bicarbonate 29.7 mmol/L (22-26); Blood Gas Specimen Type ART; Mode Not entered; O2 Delivery Device Not entered; PO2 72 mmHG (75-100); SITE R Brach; SO2 95 % (95-99); Total Carbon Dioxide 31 mmol/L; pCO2 39.8 mmHg (35-45); pH 7.48 (7.35-7.45)
[2024-03-22] MEDS: Escitalopram Oxalate 10 MG Tablet 15 MG PO (20:53)
[2024-03-22] MEDS: Atorvastatin Calcium 40 MG Tablet PO (21:35)
[2024-03-22] MEDS: DAKIN'S SOL HALF STRENGTH (=0.25%) TOPICAL (21:35)
[2024-03-23] VITALS (38 sets, daily range): BP systolic 87–268; BP diastolic 48–95; PULSE 97–112; RESP 7–22; TEMP 36.4–36.9; O2SAT 89–100; BMI 39.6
[2024-03-23 00:13] LABS: Anion Gap 11 (5-15); BUN 70 mg/dL (7-18); BUN/Creat Ratio 8.2 RATIO (10-20); Calcium,Total 9.6 mg/dL (8.5-10.1); Chloride 98 mmol/L (98-107); Creatinine, Serum 8.55 mg/dL (0.70-1.30); EST Glomerular Filtration Rate 8 mL/min (>60); Est Glom Filt Rate - Afr Amer 9 mL/min (>60); Estimated Creatinine Clearance 16.89 ml/min; Glucose 154 mg/dL (74-106); Potassium 5.5 mmol/L (3.5-5.1); Sodium Level 136 mmol/L (136-145)
[2024-03-23 04:54] LABS: Absolute Lymphocyte Count 1.53 X10^3/uL (0.83-4.51); Absolute Neutrophil Count 10.7 X10^3/uL (2.0-7.7); Basophil# 0.06 X10^3/uL; Basophil% 0.4 % (0-1); Eosinophil# 0.27 X10^3/uL; Hematocrit 29.3 % (40-54); Hemoglobin 8.8 g/dL (13.0-16.5); Lymphocyte # 1.53 X10^3/ul (0.83-4.51); Lymphocyte % 11.3 % (19-41); Mean Corpuscular Hgb 27.2 pg (27.0-32.0); Mean Corpuscular Volume 90.4 fL (80-94); Monocyte# 0.89 X10^3/uL; Monocyte% 6.6 % (0-10); NRBC Flagged by Analyzer 0 % (0-5); Neutrophil # 10.74 X10^3/uL (2.7-7.7); Neutrophil % 79.3 % (47-70); Platelet Count 160 K/mm3 (150-450); RBC Distribution Width CV 18.5 % (11.6-14.6); RBC Distribution Width SD 58.7 fl (35.1-43.9); Red Blood Count 3.24 M/mm3 (4.6-6.2); White Blood Count 13.6 K/mm3 (4.4-11.0)
[2024-03-23 05:18] LABS: Anion Gap 11 (5-15); BUN 70 mg/dL (7-18); Calcium,Total 9.4 mg/dL (8.5-10.1); Chloride 97 mmol/L (98-107); Creatinine, Serum 8.74 mg/dL (0.70-1.30); EST Glomerular Filtration Rate 7 mL/min (>60); Est Glom Filt Rate - Afr Amer 9 mL/min (>60); Estimated Creatinine Clearance 16.52 ml/min; Glucose 153 mg/dL (74-106); Potassium 5.4 mmol/L (3.5-5.1); Sodium Level 135 mmol/L (136-145)
[2024-03-23] MEDS: Levothyroxine 150 MCG Tablet PO (05:37)
--- NOTE | 2024-03-23 06:22 | PN.CC_ITS ---
Assessment & Plan Assessment/Plan (1) Acute alteration in mental status: (2) Metabolic encephalopathy: (3) ESRD (end stage renal disease) on dialysis: (4) Left ischial pressure sore: PLAN: Plan RECOMMENDATIONS: 1. Continue antimicrobial therapy, pending infectious workup. 2. Continue to hold all sedating medications. 3. Proceed with hemodialysis today per nephrology recommendations. 4. Continue basal and sliding scale insulin coverage. 5. Encourage incentive spirometer use while in bed. IMPRESSIONS: 1. Multifactorial infection with concern for UTI, pneumonia and decubitus ulcer The patient presented to the hospital with multiple potential sources of infection including UTI, pneumonia and decubitus ulcer. He has been initiated on appropriate antimicrobial therapy, pending culture results. The patient remains otherwise hemodynamically stable. 2. Hypertensive urgency Resolved. The patient was initially medically managed with nicardipine, which has been weaned off at the present time. 3. Metabolic encephalopathy Clinical concern for underlying renal dysfunction with superimposed infection contributing. Continue supportive measures with antimicrobials and proceed with dialysis today as scheduled. Arterial blood gas obtained last evening demonstrated no CO2 retention. TSH is within normal limits. 4. History of kidney transplantation on tacrolimus/end-stage renal disease on hemodialysis/neurogenic bladder Continue supportive care with dialysis support per nephrology recommendations. 5. History of hypertension/hyperlipidemia/hypothyroidism/diabetes mellitus/morbid obesity/history of paraplegia/history of DVT/PE Complicates care, management, recovery and prognosis. Continue home medications as indicated. TSH was within normal limits. This note was generated with [employer] dictation software. It may contain incorrect words, spelling, and punctuation that were not noted in checking the note before signing. Subjective Subjective The patient was seen and examined at the bedside this morning. Events from the last 24 hours have been reviewed. The patient is currently afebrile, hemodynamically stable and maintaining appropriate oxygen saturations on room air. The patient was weaned from his nicardipine infusion yesterday. He remains somewhat lethargic this morning. There are plans for dialysis today. White count is mildly elevated at 13,000 with a hemoglobin of 8.8 g/dL. Platelet count is within normal limits. Objective Data Objective Data The patient's most recent lab work, culture data and imaging studies have all been personally reviewed. COVID, influenza and RSV PCR's were negative. Blood, urine and wound cultures are pending. Vital Signs: Vital Signs Temp Pulse Resp BP Pulse Ox O2 Del Method O2 Flow Rate 97.6 F L 102 H 9 L 123/59 H 95 Room Air 2 03/23/24 04:00 03/23/24 05:00 03/23/24 05:00 03/23/24 05:00 03/23/24 05:00 03/23/24 05:00 03/22/24 08:00 Oxygen Flow Rate (L/min) 2 Oxygen Delivery Method Room Air Weight: 294 lb 5.074 oz Body Mass Index (BMI) 39.9 Intake & Output: Intake and Output for Last 24 Hours 03/21/24 03/22/24 03/23/24 23:59 23:59 23:59 Intake Total 1188.34 / 1188.34 100 / 100 Output Total 450 / 450 Balance 1163.34 / 1163.34 -350 / -350 Lab / Micro Data Attestation: I reviewed the patient's lab results. 03/23/24 04:45 03/23/24 04:45 Labs: Laboratory Results - last 24 hr 03/22/24 06:50: Sodium 135 L, Potassium 6.0 H*, Chloride 98, Carbon Dioxide 27.0, Anion Gap 10, BUN 62 H, Creatinine 7.74 H*, Estim Creat Clear Calc 18.65, Est GFR (MDRD) Af Amer 10 L, Est GFR (MDRD) Non-Af 8 L, BUN/Creatinine Ratio 8.0 L, Glucose 129 H, Calcium 10.1 03/22/24 10:28: POC Glucose 131 H 03/22/24 12:23: POC Glucose 137 H 03/22/24 17:32: POC Glucose 144 H 03/22/24 17:40: WBC 12.3 H, RBC 3.29 L, Hgb 9.0 L, Hct 29.5 L, MCV 89.7, MCH 27.4, MCHC 30.5 L, RDW Std Deviation 57.6 H, RDW Coeff of Shanta 18.1 H, Plt Count 155, MPV 10.8, Immature Gran % (Auto) 0.400, Neut % (Auto) 82.4 H, Lymph % (Auto) 8.9 L, [place] % (Auto) 4.9, Eos % (Auto) 2.8, Baso % (Auto) 0.6, Absolute Neuts (auto) 10.2 H, Absolute Lymphs (auto) 1.10, Nucleated RBC % 0, PT 16.6 H, INR 1.4, Sodium 134 L, Potassium 7.0 H*, Chloride 97 L, Carbon Dioxide 27.0, Anion Gap 10, BUN 69 H, Creatinine 8.16 H*, Estim Creat Clear Calc 17.69, Est GFR (MDRD) Af Amer 10 L, Est GFR (MDRD) Non-Af 8 L, BUN/Creatinine Ratio 8.5 L, Glucose 171 H, Calcium 9.5 03/22/24 23:50: Sodium 136, Potassium 5.5 H, Chloride 98, Carbon Dioxide 27.0, Anion Gap 11, BUN 70 H, Creatinine 8.55 H*, Estim Creat Clear Calc 16.89, Est GFR (MDRD) Af Amer 9 L, Est GFR (MDRD) Non-Af 8 L, BUN/Creatinine Ratio 8.2 L, G lucose 154 H, Calcium 9.6 03/23/24 04:45: WBC 13.6 H, RBC 3.24 L, Hgb 8.8 L, Hct 29.3 L, MCV 90.4, MCH 27.2, MCHC 30.0 L, RDW Std Deviation 58.7 H, RDW Coeff of Shanta 18.5 H, Plt Count 160, MPV 11.0, Immature Gran % (Auto) 0.400, Neut % (Auto) 79.3 H, Lymph % (Auto) 11.3 L, [place] % (Auto) 6.6, Eos % (Auto) 2.0, Baso % (Auto) 0.4, Absolute Neuts (auto) 10.7 H, Absolute Lymphs (auto) 1.53, Nucleated RBC % 0, Sodium 135 L, Potassium 5.4 H, Chloride 97 L, Carbon Dioxide 27.0, Anion Gap 11, BUN 70 H, Creatinine 8.74 H*, Estim Creat Clear Calc 16.52, Est GFR (MDRD) Af Amer 9 L, E st GFR (MDRD) Non-Af 7 L, BUN/Creatinine Ratio 8.0 L, Glucose 153 H, Calcium 9.4 Micro: Microbiology 03/22/24 02:03 Mucosa - Nose SARS-CoV-2, Influenza & RSV (PCR) - Final ABG Data ABG results: ABG 03/22/24 20:49 Specimen Type ART Sample Site R Brach pH 7.48 H Bicarbonate Actual 29.7 H Total CO2 31 Base Excess 6 H O2 Saturation 95 O2 % 21.0 ABG pCO2 39.8 ABG pO2 72 L Nick Test Positive O2 Delivery Device Not entered Vent Mode Not entered Radiography Diagnostic Testing: Radiology Impression Chest/Abdomen/Pelvis CT 03/22/24 04:41 IMPRESSION: 1. Bladder wall thickening consistent with cystitis. 2. Right renal transplant with mild hydroureteronephrosis. Air in the renal collecting system may be related to the presence of a suprapubic tube or recent procedure, but can be seen with infection. 3. Large wound or ulcer overlying the left ischial tuberosity with findings consistent with osteomyelitis. MRI may be helpful for further evaluation. Localized collection more posteriorly overlying the tip of the coccyx extending to the left, likely abscess. 4. Cholelithiasis. 5. CHEST: Diffuse groundglass opacities most consistent with pulmonary edema or viral pneumonitis. Cardiomegaly. Electronically Signed: Mackenzie Melo MD at 6:31 EDT , Physical Exam Const Constitutional Narrative: Lethargic. Will not open eyes or engage in any meaningful conversation. HEENT normocephalic and head/scalp atraumatic Eyes PERRL Neck supple General: trachea midline Chest inspection of chest normal Resp normal respiratory effort Auscultation: diminished lung sounds Cardio regular rate and regular rhythm GI normal to inspection, nondistended, normoactive bowel sounds Extremity General Extremity: amputation and edema Skin Skin Narrative: Ischial pressure sore present Neuro Neuro Narrative: Lethargic as noted above. Moving extremities spontaneously. Psych Mood & Affect: flat affect Charges/Coding Visit Charges Inpatient E&M: 78565 Subs Hosp L3
[2024-03-23] MEDS: 0.9% Normal Saline 1,000 ML IV.SOLN. 1000 ML OPERA.SITE (07:25)
[2024-03-23] MEDS: PureFlow B 2K Dialysis Soln 1 BAG 6 BAG PF (07:25)
[2024-03-23 08:42] LABS: Vitamin B12 1094 pg/mL (211-911)
[2024-03-23 08:56] LABS: Base Excess 6 mmol/L (-2 to +2); Bicarbonate 29.1 mmol/L (22-26); Blood Gas Specimen Type ART; Mode Not entered; O2 Delivery Device Not entered; PO2 56 mmHG (75-100); SITE R Brach; SO2 91 % (95-99); Total Carbon Dioxide 30 mmol/L; pCO2 39.1 mmHg (35-45); pH 7.48 (7.35-7.45)
--- NOTE | 2024-03-23 11:36 | PCM.PROGNOTE ---
Subjective Subjective Patient seen and examined. He was having dialysis. Unable to do review of systems as he was quite lethargic and just kept grunting in response to questions. He remains on room air, though he is slightly tachycardic today. Objective Data Objective Data Vital Signs: Vital Signs Temp Pulse Resp BP Pulse Ox O2 Del Method O2 Flow Rate 97.9 F 107 H 12 156/49 H 96 Room Air 2 03/23/24 08:00 03/23/24 11:16 03/23/24 11:16 03/23/24 11:16 03/23/24 11:16 03/23/24 11:16 03/22/24 08:00 Oxygen Flow Rate (L/min) 2 Oxygen Delivery Method Room Air Weight: 292 lb 8.854 oz Body Mass Index (BMI) 39.6 Intake & Output: Intake and Output for Last 24 Hours 03/21/24 03/22/24 03/23/24 23:59 23:59 23:59 Intake Total 1188.34 / 1188.34 315.25 / 315.25 Output Total 450 / 450 Balance 1163.34 / 1163.34 -134.75 / -134.75 Lab / Micro Data 03/23/24 04:45 03/23/24 04:45 Labs: Laboratory Results - last 24 hr 03/22/24 02:01: Vitamin B12 1094 H 03/22/24 12:23: POC Glucose 137 H 03/22/24 17:32: POC Glucose 144 H 03/22/24 17:40: WBC 12.3 H, RBC 3.29 L, Hgb 9.0 L, Hct 29.5 L, MCV 89.7, MCH 27.4, MCHC 30.5 L, RDW Std Deviation 57.6 H, RDW Coeff of Shanta 18.1 H, Plt Count 155, MPV 10.8, Immature Gran % (Auto) 0.400, Neut % (Auto) 82.4 H, Lymph % (Auto) 8.9 L, [place] % (Auto) 4.9, Eos % (Auto) 2.8, Baso % (Auto) 0.6, Absolute Neuts (auto) 10.2 H, Absolute Lymphs (auto) 1.10, Nucleated RBC % 0, PT 16.6 H, INR 1.4, Sodium 134 L, Potassium 7.0 H*, Chloride 97 L, Carbon Dioxide 27.0, Anion Gap 10, BUN 69 H, Creatinine 8.16 H*, Estim Creat Clear Calc 17.69, Est GFR (MDRD) Af Amer 10 L, Est GFR (MDRD) Non-Af 8 L, BUN/Creatinine Ratio 8.5 L, Glucose 171 H, Calcium 9.5 03/22/24 23:50: Sodium 136, Potassium 5.5 H, Chloride 98, Carbon Dioxide 27.0, Anion Gap 11, BUN 70 H, Creatinine 8.55 H*, Estim Creat Clear Calc 16.89, Est GFR (MDRD) Af Amer 9 L, Est GFR (MDRD) Non-Af 8 L, BUN/Creatinine Ratio 8.2 L, Glucose 154 H, Calcium 9.6 03/23/24 04:45: WBC 13.6 H, RBC 3.24 L, Hgb 8.8 L, Hct 29.3 L, MCV 90.4, MCH 27.2, MCHC 30.0 L, RDW Std Deviation 58.7 H, RDW Coeff of Shanta 18.5 H, Plt Count 160, MPV 11.0, Immature Gran % (Auto) 0.400, Neut % (Auto) 79.3 H, Lymph % (Auto) 11.3 L, [place] % (Auto) 6.6, Eos % (Auto) 2.0, Baso % (Auto) 0.4, Absolute Neuts (auto) 10.7 H, Absolute Lymphs (auto) 1.53, Nucleated RBC % 0, Sodium 135 L, Potassium 5.4 H, Chloride 97 L, Carbon Dioxide 27.0, Anion Gap 11, BUN 70 H, Creatinine 8.74 H*, Estim Creat Clear Calc 16.52, Est GFR (MDRD) Af Amer 9 L, Est GFR (MDRD) Non-Af 7 L, BUN/Creatinine Ratio 8.0 L, Glucose 153 H, Calcium 9.4 Micro: Microbiology 03/22/24 08:00 Wound Abcess - Ischium Wound Culture - Preliminary Gram negative polo 03/22/24 02:02 Urine Catheter - Hurst Urine Culture - Preliminary GNR Poss Pseudomonas sp 03/22/24 02:03 Mucosa - Nose SARS-CoV-2, Influenza & RSV (PCR) - Final ABG Data ABG results: ABG 03/22/24 03/23/24 20:49 08:53 Specimen Type ART ART Sample Site R Brach R Brach pH 7.48 H 7.48 H Bicarbonate Actual 29.7 H 29.1 H Total CO2 31 30 Base Excess 6 H 6 H O2 Saturation 95 91 L O2 % 21.0 21.0 ABG pCO2 39.8 39.1 ABG pO2 72 L 56 L Nick Test Positive O2 Delivery Device Not entered Not entered Vent Mode Not entered Not entered Physical Exam Const alert Constitutional Narrative: lethargic, only grunts in response to questions. Moves all extremities. HEENT normocephalic, head/scalp atraumatic and moist oral mucous membranes Eyes PERRL and EOMs intact bilaterally Neck no lymphadenopathy and supple Lymph Lymphatic: no lymphadenopathy noted Resp Resp Narrative: mildly diminished breath sounds bibasally, no wheezes or crackles. On room air. Cardio regular rhythm, S1 normal heart sound, S2 normal heart sound and no murmurs Rate: tachycardic GI normal to inspection, nondistended, normoactive bowel sounds, soft to palpation, non-tender and non-distended Extremity normal capillary refill, no clubbing, cyanosis or edema and no calf tenderness Extremity Narrative: AV fistula in LUE. Undergoing dialysis. Left BKA. Right foot bandaged. Neuro Neuro Narrative: lethargic, only grunts in response to questions and voice call. Assessment & Plan Assessment/Plan (1) Left ischial pressure sore: (2) Hypertensive emergency: PLAN: Plan #Hypertensive emergency Blood pressures improved. On carvedilol and hydralazine. Midodrine held. IV hydralazine as needed. #Hematuria: Still having some hematuria per [place] catheter. Eliquis on hold. CT abdomen and pelvis showed bladder wall thickening consistent with cystitis. He is also being treated for UTI. He does have a suprapubic catheter in place. #Probable catheter associated UTI Urinalysis does not really show evidence of UTI but CT scan showed bladder wall thickening consistent with cystitis. On IV Zosyn. He does have a suprapubic catheter in place. Urine cultures pending. #Sacral decubitus ulcer Present on admission. Plastic surgery consulted. CT scan showed a large ulcer overlying the left ischial tuberosity with findings consistent with osteomyelitis. on IV zosyn #Acute encephalopathy patient still remains lethargic. CT brain showed no acute intracranial pathology gabapentin and other neurotoxic meds on hold #Hyperkalemia: Potassium is 5.4 today. This should improve with dialysis today. #ESRD: Also has history of kidney transplantation and is on tacrolimus on dialysis Wednesdays and Fridays. Currently on dialysis. Nephrology on board. #History of T5-T6 injury with resultant paraplegia PT.OT On board. uses a wheelchair has a neurogenic blader with suprapubic catheter in situ and is also s/p colostomy #History of DVT and PE: On Eliquis. This currently on hold due to hematuria #Hyperlipidemia: On statin #Hypothyroidism: On Synthroid #Type 2 diabetes mellitus: On Lantus 17 units daily. Insulin sliding scale. Accu-Cheks ACHS. #Depression: On escitalopram but this has been held due to encephalopathy DVT prophylaxis: SCDs. No anticoagulation due to hematuria. Charges/Coding Visit Charges Inpatient E&M: 05600 Subs Hosp L3
[2024-03-23] MEDS: Carvedilol 12.5 MG Tablet NG (11:41)
[2024-03-23] MEDS: DAKIN'S SOL HALF STRENGTH (=0.25%) TOPICAL ×2 (11:42→22:03)
[2024-03-23] MEDS: Piperacil/Tazobactam 3.375 GM in 0.9% Normal Saline (50mL MB+) 50 ML IV ×2 (11:43→22:03)
[2024-03-23 12:06] LABS: Bedside Glucose 121 mg/dL (74-106)
--- NOTE | 2024-03-23 12:43 | CON.PCM.RE_ITS ---
Assessment & Plan Assessment/Plan (1) ESRD (end stage renal disease) on dialysis: (2) Hyperkalemia: (3) Acute alteration in mental status: (4) UTI (urinary tract infection): PLAN: Plan This is a 38-year-old male with past medical history significant for ESRD on hemodialysis at [facility] followed by Dr. Granda, receives dialysis on a Saturday, Saturday, , Saturday schedule, last dialyzed Saturday who was admitted to the hospital for altered mental status changes, acute cystitis and hyperkalemia. Potassium was 6 on admission, peaked to 7.0 but was given multiple doses IV medications for hyperkalemia and this morning potassium improved to 5.4. Nephrology consulted as patient has history of ESRD and dialysis management. Patient underwent hemodialysis today on 2K bath and tolerated around 2 L fluid removal. Will likely maintain dialysis schedule of Saturday while patient is in the hospital. Will not plan for dialysis tomorrow unless there is acute need. Recommend once patient is able to eat to add low potassium diet restrictions. BMP ordered for the morning. Will monitor hemoglobin trends, no need for REILLY with dialysis today. Blood pressures were elevated on admission and patient was on Cardene drip. Blood pressures have improved, off Cardene drip. Patient is receiving medications via NG tube. Patient is on IV antibiotics for UTI, pneumonia and decubitus ulcer. Plastics consulted for left ischial pressure sore. Further orders forthcoming as hospitalization evolves, thank you for letting us participate in the care of Mr. Salgado. HPI Consult Data Date of Consult: 03/23/24 HPI Narrative HPI Narrative: CHINA SALGADO, is a 38 M with past medical history significant for ESRD who currently dialyzes Saturday, Saturday, , Saturday schedule and [facility], last dialyzed Saturday was brought to to the emergency room over the weekend for confusion and lethargy. Patient was admitted for acute cystitis. Nephrology consulted as patient has history of ESRD requiring hemodialysis support. Patient is not alert or oriented, information gathered from the chart. He just completed his hemodialysis session today. 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 H/O deep venous thrombosis Osteomyelitis of pelvic region Lives in jail Anxiety Open wound Insulin dependent diabetes mellitus Uses wheelchair Injury of back Community acquired MRSA infection Non-healing wound of amputation stump DM type 2, goal HbA1c < 7% 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, stage 4 Hypomagnesemia Hyperosmolality and hypernatremia Neurogenic bowel Pericardial effusion (noninflammatory) SIRS (systemic inflammatory response syndrome) Pyrexia Chronic kidney disease with end stage renal failure on dialysis Kidney transplant failure Dependence on renal dialysis Pressure ulcer of left heel, unspecified stage Gastro-esophageal reflux disease without esophagitis Acute on chronic systolic (congestive) heart failure Other pericardial effusion (noninflammatory) Other pulmonary embolism without acute cor pulmonale Hypertensive heart and chronic kidney disease with heart failure and stage 1 through stage 4 chronic kidney disease, or unspecified chronic kidney disease Depression Hyperlipemia Hypothyroidism Anemia in chronic kidney disease Neuromuscular dysfunction of bladder, unspecified Paraplegia, incomplete Other acute osteomyelitis, left ankle and foot End stage renal disease Acute pulmonary edema Acute respiratory failure with hypoxia Home Medications ?Medication ?Instructions ?Recorded ?Last Taken ?Type acetaminophen 325 mg tablet 650 mg PO Q4H PRN PAIN/FEVER 01/02/23 04/21/23 History apixaban 5 mg tablet (Eliquis) 5 mg PO BID blood thinner 01/02/23 07/16/23 History ascorbic acid (vitamin C) 500 mg 500 mg PO QHS supplement 01/02/23 12/08/23 History tablet atorvastatin 40 mg tablet 40 mg PO QHS hypercholestremia 01/02/23 12/08/23 History bisacodyl 10 mg rectal suppository 10 mg ND DAILY PRN Constipation 01/02/23 Unknown History carvedilol 12.5 mg tablet 12.5 mg PO Q12H HYPERTENSION 01/02/23 12/09/23 History clotrimazole-betamethasone 1 1 applic topical QHS rash 01/02/23 07/15/23 History %-0.05 % topical cream dextrose 40 % oral gel (Glucose 15 g PO Q15M PRN Hypoglycemia 01/02/23 Unknown History Gel) hydralazine 25 mg tablet 50 mg PO Q8 hypertension 01/02/23 12/09/23 History insulin glargine 100 unit/mL (3 11 unit subcut 1700 diabetes 01/02/23 12/08/23 History mL) subcutaneous pen (Lantus Solostar U-100 Insulin) insulin lispro 100 unit/mL 6 unit subcut QHS diabetes 01/02/23 07/16/23 History subcutaneous pen (Humalog KwikPen (U-100) Insulin) midodrine 10 mg tablet 10 mg PO MOTUTHFR DIALYSIS 01/02/23 12/09/23 History ondansetron HCl 4 mg tablet 4 mg PO Q8H PRN PRN Nausea 01/02/23 Unknown History pantoprazole 40 mg tablet,delayed 40 mg PO DAILY gerd 01/02/23 12/08/23 History release polyethylene glycol 3350 17 gram 17 g PO DAILY PRN constipation 01/02/23 Unknown History oral powder packet promethazine 12.5 mg tablet 12.5 mg PO Q8H PRN Nausea 01/02/23 07/15/23 History sennosides 8.6 mg-docusate sodium 1 tab-cap PO BID Constipation 01/02/23 07/16/23 History 50 mg capsule (Senna Plus) tacrolimus 1 mg capsule, 2 mg PO Q12H immunosuppressive 01/02/23 12/09/23 History immediate-release (Prograf) trazodone 50 mg tablet 50 mg PO QHS insomnia 01/02/23 12/08/23 History gabapentin 100 mg capsule 200 mg PO BID PHANTOM PAIN 04/21/23 12/09/23 History sevelamer HCl 800 mg tablet 2,400 mg PO TIDCM ESRD 04/21/23 07/16/23 History levothyroxine 150 mcg tablet 150 mcg PO DAILY@0600 07/16/23 12/09/23 History hypothyroidism oxycodone 10 mg tablet 10 mg PO Q4H PRN pain 2 days #12 07/19/23 Unknown Rx tabs acetaminophen 650 mg rectal 650 mg ND Q4H PRN fever or pain 08/06/23 Unknown History suppository glucagon 1 mg injection kit 1 mg subcut X1 PRN hypoglycemia 08/06/23 Unknown History magnesium hydroxide 400 mg/5 mL 30 ml PO DAILY PRN constipation 08/06/23 Unknown History oral suspension (Milk of Magnesia) ciclopirox 8 % topical solution 1 applic topical QHS nail fungus 11/17/23 Unknown History insulin lispro 100 unit/mL 9 unit subcut DAILY diabetes 11/17/23 Unknown History subcutaneous pen (Humalog KwikPen (U-100) Insulin) diphenhydramine-zinc acetate 2 1 applic topical Q6H PRN PRN 12/06/23 Unknown History %-0.1 % topical cream (Benadryl itching Extra Strength) escitalopram oxalate 10 mg tablet 15 mg PO QHS depression 12/30/23 Unknown History (Lexapro) vancomycin 1 gram/200 mL in 0.9 % 1 g (200 mL) IV .see below 16 days 01/02/24 Unknown Rx sod. chloride intravenous piggyback insulin lispro 100 unit/mL See Protocol subcut TIDCM 03/22/24 Unknown History subcutaneous pen insulin lispro 100 unit/mL 11 unit subcut DAILY@1700 03/22/24 Unknown History subcutaneous solution vitamin B complex-vitamin C-folic 1 tab PO DAILY 03/22/24 Unknown History acid 0.8 mg tablet Allergy/AdvReac Type Severity Reaction Status Date / Time No Known Allergies Allergy Verified 02/18/24 04:45 Family History Mother Hypertension Diabetes Father Hypertension Diabetes Surgical History History of kidney transplant S/P unilateral above knee amputation S/P foot surgery S/P colostomy Social History housing: jail Smoking Status: Never smoker alcohol intake: never substance use type: does not use ROS ROS Narrative Unable to be obtained Physical Exam Narrative no apparent distress, not alert S1, S2 RRR Lung sounds clear abdomen soft, + colostomy No edema suprapubic cano AV fistula +thrill and bruit Lab / Micro Data 03/23/24 04:45 03/23/24 04:45 Labs: Laboratory Results - last 24 hr 03/22/24 02:01: Vitamin B12 1094 H 03/22/24 12:23: POC Glucose 137 H 03/22/24 17:32: POC Glucose 144 H 03/22/24 17:40: WBC 12.3 H, RBC 3.29 L, Hgb 9.0 L, Hct 29.5 L, MCV 89.7, MCH 27.4, MCHC 30.5 L, RDW Std Deviation 57.6 H, RDW Coeff of Shanta 18.1 H, Plt Count 155, MPV 10.8, Immature Gran % (Auto) 0.400, Neut % (Auto) 82.4 H, Lymph % (Auto) 8.9 L, [place] % (Auto) 4.9, Eos % (Auto) 2.8, Baso % (Auto) 0.6, Absolute Neuts (auto) 10.2 H, Absolute Lymphs (auto) 1.10, Nucleated RBC % 0, PT 16.6 H, INR 1.4, Sodium 134 L, Potassium 7.0 H*, Chloride 97 L, Carbon Dioxide 27.0, Anion Gap 10, BUN 69 H, Creatinine 8.16 H*, Estim Creat Clear Calc 17.69, Est GFR (MDRD) Af Amer 10 L, Est GFR (MDRD) Non-Af 8 L, BUN/Creatinine Ratio 8.5 L, Glucose 171 H, Calcium 9.5 03/22/24 23:50: Sodium 136, Potassium 5.5 H, Chloride 98, Carbon Dioxide 27.0, Anion Gap 11, BUN 70 H, Creatinine 8.55 H*, Estim Creat Clear Calc 16.89, Est GFR (MDRD) Af Amer 9 L, Est GFR (MDRD) Non-Af 8 L, BUN/Creatinine Ratio 8.2 L, G lucose 154 H, Calcium 9.6 03/23/24 04:45: WBC 13.6 H, RBC 3.24 L, Hgb 8.8 L, Hct 29.3 L, MCV 90.4, MCH 27.2, MCHC 30.0 L, RDW Std Deviation 58.7 H, RDW Coeff of Sh[place] 18.5 H, Plt Count 160, MPV 11.0, Immature Gran % (Auto) 0.400, Neut % (Auto) 79.3 H, Lymph % (Auto) 11.3 L, [place] % (Auto) 6.6, Eos % (Auto) 2.0, Baso % (Auto) 0.4, Absolute Neuts (auto) 10.7 H, Absolute Lymphs (auto) 1.53, Nucleated RBC % 0, Sodium 135 L, Potassium 5.4 H, Chloride 97 L, Carbon Dioxide 27.0, Anion Gap 11, BUN 70 H, Creatinine 8.74 H*, Estim Creat Clear Calc 16.52, Est GFR (MDRD) Af Amer 9 L, E st GFR (MDRD) Non-Af 7 L, BUN/Creatinine Ratio 8.0 L, Glucose 153 H, Calcium 9.4 03/23/24 11:47: POC Glucose 121 H Micro: Microbiology 03/22/24 08:00 Wound Abcess - Ischium Wound Culture - Preliminary Gram negative polo 03/22/24 02:02 Urine Catheter - [place] Urine Culture - Preliminary GNR Poss Pseudomonas sp ABG Data ABG results: ABG 03/22/24 03/23/24 20:49 08:53 Specimen Type ART ART Sample Site R Brach R Brach pH 7.48 H 7.48 H Bicarbonate Actual 29.7 H 29.1 H Total CO2 31 30 Base Excess 6 H 6 H O2 Saturation 95 91 L O2 % 21.0 21.0 ABG pCO2 39.8 39.1 ABG pO2 72 L 56 L Nick Test Positive O2 Delivery Device Not entered Not entered Vent Mode Not entered Not entered
[2024-03-23] MEDS: hydrALAZINE 20 MG/ML Vial 10 MG IV (13:03)
--- NOTE | 2024-03-23 15:20 | WOUNDNOTE ---
wound photo: left ischium
[2024-03-23] MEDS: Vancomycin IV 1,000 MG/200 ML BAG 200 MG IV (15:33)
[2024-03-23 17:18] LABS: Bedside Glucose 138 mg/dL (74-106)
[2024-03-23] MEDS: 0.9% Normal Saline (250mL Bag) 250 ML 15 ML IV (18:07)
[2024-03-23] MEDS: Clotrimazole/Betamethasone 1 Tube 1 APPLIC TOPICAL (22:04)
[2024-03-24] VITALS (17 sets, daily range): BP systolic 93–176; BP diastolic 50–83; PULSE 88–104; RESP 10–20; TEMP 36.2–36.9; O2SAT 93–100; BMI 39.1
[2024-03-24 04:01] LABS: Absolute Lymphocyte Count 2.02 X10^3/uL (0.83-4.51); Absolute Neutrophil Count 7.4 X10^3/uL (2.0-7.7); Basophil# 0.07 X10^3/uL; Basophil% 0.6 % (0-1); Eosinophil# 0.51 X10^3/uL; Eosinophils% 4.7 % (0-5); Hematocrit 29.1 % (40-54); Hemoglobin 8.9 g/dL (13.0-16.5); Lymphocyte # 2.02 X10^3/ul (0.83-4.51); Lymphocyte % 18.4 % (19-41); Mean Corp Hgb Conc 30.6 g/dL (32-36); Mean Corpuscular Hgb 27.7 pg (27.0-32.0); Mean Corpuscular Volume 90.7 fL (80-94); Mean Platelet Vol. 10.3 fl (6.2-12.0); Monocyte# 0.94 X10^3/uL; Monocyte% 8.6 % (0-10); NRBC Flagged by Analyzer 0 % (0-5); Neutrophil # 7.38 X10^3/uL (2.7-7.7); Neutrophil % 67.4 % (47-70); Platelet Count 169 K/mm3 (150-450); RBC Distribution Width CV 18.6 % (11.6-14.6); RBC Distribution Width SD 61.8 fl (35.1-43.9); Red Blood Count 3.21 M/mm3 (4.6-6.2)
[2024-03-24 04:20] LABS: Anion Gap 8 (5-15); BUN 51 mg/dL (7-18); BUN/Creat Ratio 6.6 RATIO (10-20); Calcium,Total 9.4 mg/dL (8.5-10.1); Chloride 100 mmol/L (98-107); Creatinine, Serum 7.71 mg/dL (0.70-1.30); EST Glomerular Filtration Rate 9 mL/min (>60); Est Glom Filt Rate - Afr Amer 10 mL/min (>60); Estimated Creatinine Clearance 18.67 ml/min; Glucose 130 mg/dL (74-106); Potassium 4.1 mmol/L (3.5-5.1); Sodium Level 137 mmol/L (136-145)
[2024-03-24] MEDS: hydrALAZINE 20 MG/ML Vial 10 MG IV (04:47)
[2024-03-24] MEDS: 0.9% Saline Lock 10 ML Syringe IV (04:48)
--- NOTE | 2024-03-24 07:21 | PCM.PN.INT ---
Assessment & Plan Assessment/Plan (1) Acute alteration in mental status: (2) Metabolic encephalopathy: (3) ESRD (end stage renal disease) on dialysis: (4) Left ischial pressure sore: PLAN: Plan RECOMMENDATIONS: 1. Continue antimicrobial therapy, pending finalized culture results. 2. Continue to hold all sedating medications. 3. Ongoing dialysis support per nephrology recommendations. 4. Continue basal and sliding scale insulin coverage. 5. Encourage incentive spirometer use while in bed. 6. Speech therapy evaluation prior to advancement of diet. 7. The patient is medically stable for transfer out of the intensive care unit. IMPRESSIONS: 1. Multifactorial infection with concern for UTI, pneumonia and decubitus ulcer The patient presented to the hospital with multiple potential sources of infection including UTI, pneumonia and decubitus ulcer. He has been initiated on appropriate antimicrobial therapy, pending culture results. The patient remains otherwise hemodynamically stable. 2. Hypertensive urgency Resolved. The patient was initially medically managed with nicardipine, which has been weaned off at the present time. 3. Metabolic encephalopathy Improving. Clinical concern for underlying renal dysfunction with superimposed infection contributing. Continue supportive measures with antimicrobials and proceed with dialysis as scheduled. Prior ABG demonstrated no evidence of CO2 retention and TSH was within normal limits. 4. History of kidney transplantation on tacrolimus/end-stage renal disease on hemodialysis/neurogenic bladder Continue supportive care with dialysis support per nephrology recommendations. 5. History of hypertension/hyperlipidemia/hypothyroidism/diabetes mellitus/morbid obesity/history of paraplegia/history of DVT/PE Complicates care, management, recovery and prognosis. Continue home medications as indicated. TSH was within normal limits. This note was generated with [employer] dictation software. It may contain incorrect words, spelling, and punctuation that were not noted in checking the note before signing. Subjective Subjective The patient was seen and examined at the bedside this morning. Events from the last 24 hours have been reviewed. The patient is currently afebrile, hemodynamically stable and maintaining appropriate oxygen saturations on room air. No overnight issues were identified by the nursing staff. The patient is more alert and interactive this morning following dialysis yesterday. Speech therapy evaluation is pending prior to advancing diet. White count is normal this morning with a hemoglobin of 8.9 g/dL. Platelet count is within normal limits. Objective Data Objective Data The patient's most recent lab work, culture data and imaging studies have all been personally reviewed. COVID, influenza and RSV PCR's were negative. Urine culture is currently demonstrating growth of Pseudomonas. Wound cultures are demonstrating growth of 2+ gram-negative rods. Vital Signs: Vital Signs Temp Pulse Resp BP Pulse Ox O2 Del Method O2 Flow Rate 98.1 F 101 H 10 L 150/56 H 96 Room Air 2 03/24/24 05:00 03/24/24 07:00 03/24/24 07:00 03/24/24 07:00 03/24/24 07:00 03/24/24 07:00 03/22/24 08:00 Oxygen Flow Rate (L/min) 2 Oxygen Delivery Method Room Air Weight: 288 lb 5.834 oz Body Mass Index (BMI) 39.1 Intake & Output: Intake and Output for Last 24 Hours 03/22/24 03/23/24 03/24/24 23:59 23:59 23:59 Intake Total 1188.34 / 1188.34 660.00 / 660.00 Output Total 2600 / 2600 0 / 0 Balance 1163.34 / 1163.34 -1940.00 / -1940.00 50 / Lab / Micro Data Attestation: I reviewed the patient's lab results. 03/24/24 03:50 03/24/24 03:50 Labs: Laboratory Results - last 24 hr 03/22/24 02:01: Vitamin B12 1094 H 03/23/24 11:47: POC Glucose 121 H 03/23/24 17:01: POC Glucose 138 H 03/24/24 03:50: WBC 11.0, RBC 3.21 L, Hgb 8.9 L, Hct 29.1 L, MCV 90.7, MCH 27.7, MCHC 30.6 L, RDW Std Deviation 61.8 H, RDW Coeff of Shanta 18.6 H, Plt Count 169, MPV 10.3, Immature Gran % (Auto) 0.300, Neut % (Auto) 67.4, Lymph % (Auto) 18.4 L, [place] % (Auto) 8.6, Eos % (Auto) 4.7, Baso % (Auto) 0.6, Absolute Neuts (auto) 7.4, Absolute Lymphs (auto) 2.02, Nucleated RBC % 0, Sodium 137, Potassium 4.1, Chloride 100, Carbon Dioxide 29.0, Anion Gap 8, BUN 51 H, Creatinine 7.71 H*, Estim Creat Clear Calc 18.67, Est GFR (MDRD) Af Amer 10 L, Est GFR (MDRD) Non-Af 9 L, BUN/Creatinine Ratio 6.6 L, Glucose 130 H, Calcium 9.4 Micro: Microbiology 03/22/24 02:01 Blood Culture (Wb) - Neck Blood Culture - Preliminary 03/22/24 02:02 Urine Catheter - Hurst Urine Culture - Preliminary Pseudomonas aeruginosa 03/22/24 08:00 Wound Abcess - Ischium Gram Stain - Final 03/22/24 08:00 Wound Abcess - Ischium Wound Culture - Preliminary Gram negative polo 03/22/24 02:03 Mucosa - Nose SARS-CoV-2, Influenza & RSV (PCR) - Final ABG Data ABG results: ABG 03/23/24 08:53 Specimen Type ART Sample Site R Brach pH 7.48 H Bicarbonate Actual 29.1 H Total CO2 30 Base Excess 6 H O2 Saturation 91 L O2 % 21.0 ABG pCO2 39.1 ABG pO2 56 L O2 Delivery Device Not entered Vent Mode Not entered Radiography Diagnostic Testing: Radiology Impression Chest/Abdomen/Pelvis CT 03/22/24 04:41 IMPRESSION: 1. Bladder wall thickening consistent with cystitis. 2. Right renal transplant with mild hydroureteronephrosis. Air in the renal collecting system may be related to the presence of a suprapubic tube or recent procedure, but can be seen with infection. 3. Large wound or ulcer overlying the left ischial tuberosity with findings consistent with osteomyelitis. MRI may be helpful for further evaluation. Localized collection more posteriorly overlying the tip of the coccyx extending to the left, likely abscess. 4. Cholelithiasis. 5. CHEST: Diffuse groundglass opacities most consistent with pulmonary edema or viral pneumonitis. Cardiomegaly. Electronically Signed: Mackenzie Melo MD at 6:31 EDT , Physical Exam Const Constitutional Narrative: Still a bit lethargic this morning but overall much improved from yesterday. HEENT normocephalic and head/scalp atraumatic Eyes PERRL and EOMs intact bilaterally Neck supple General: trachea midline Chest inspection of chest normal Resp normal respiratory effort Auscultation: diminished lung sounds Cardio regular rate and regular rhythm GI normal to inspection, nondistended, normoactive bowel sounds Extremity General Extremity: amputation and edema Skin Skin Narrative: Ischial pressure sore present Neuro moves all extremities and no focal motor deficits Psych Mood & Affect: flat affect Charges/Coding Visit Charges Inpatient E&M: 08196 Subs Hosp L2
[2024-03-24] MEDS: Piperacil/Tazobactam 3.375 GM in 0.9% Normal Saline (50mL MB+) 50 ML IV ×2 (09:12→20:56)
[2024-03-24] MEDS: DAKIN'S SOL HALF STRENGTH (=0.25%) TOPICAL ×2 (09:13→20:53)
[2024-03-24] MEDS: Pantoprazole Sodium 40 MG Tablet PO (10:01)
[2024-03-24] MEDS: Carvedilol 12.5 MG Tablet PO ×2 (10:01→14:18)
[2024-03-24] MEDS: Levothyroxine 150 MCG Tablet PO (10:02)
[2024-03-24] MEDS: Tacrolimus Anhydrous 1 MG Capsule PO ×2 (10:02→20:52)
[2024-03-24] MEDS: hydrALAZINE 25 MG Tablet 75 MG PO ×3 (10:03→20:51)
--- NOTE | 2024-03-24 10:10 | WOUNDNOTE ---
Removed the colostomy appliance from the left lower abdomen. stoma is flush with the skin. stoma is pink and moist. measures approx 1 1/4. peristomal skin is intact. cleansed skin with warm water and pat dry. applied a new 2 piece flat [place] appliance with a small amount of stoma paste. pt tolerated well.
[2024-03-24] MEDS: SEVELAMER CARBONATE 800 MG TABLET 2400 MG PO ×2 (10:14→17:18)
[2024-03-24 10:34] LABS: Bedside Glucose 145 mg/dL (74-106)
--- NOTE | 2024-03-24 10:53 | CASEMGMT ---
Social Work SW met w/pt in room, confirmed the plan will be to return to [facility] at discharge, SNF list not needed at this time. SW inquired about POA, pt does not have a POA for healthcare. He is agreeable to SW calling his sister Rudy to make sure she knows he is here, as he is not certain if his siblings know he is here. SW called pt's sister Rudy. She is aware pt is here but states that [facility] did not notify her, she found out pt was here when the nurse called her yesterday. She to is agreeable for pt to return to [facility] when ready, SNF list not needed at this time. D/C museum assistant Selina will gently remind [facility] to notify family when pt is admitted to the hospital when [facility]. SW will continue to follow. BRIONNA Chaudhry
--- NOTE | 2024-03-24 10:55 | CASEMGMT ---
Discharge Planning Updates sent via [facility] to [facility]. Selina Sylvester DC Planning Asst.
--- NOTE | 2024-03-24 13:57 | PN_ITS ---
Subjective Subjective Patient seen and examined. He had no complaints. He was much more alert and eating breakfast this morning. Per his notes he had also taken his medications. No other active events overnight. Review of systems otherwise negative. Objective Data Objective Data Vital Signs: Vital Signs Temp Pulse Resp BP Pulse Ox O2 Del Method O2 Flow Rate 97.2 F L 98 18 154/52 H 94 Room Air 2 03/24/24 08:00 03/24/24 10:03 03/24/24 08:00 03/24/24 08:00 03/24/24 08:00 03/24/24 08:00 03/22/24 08:00 Oxygen Flow Rate (L/min) 2 Oxygen Delivery Method Room Air Weight: 288 lb 5.834 oz Body Mass Index (BMI) 39.1 Intake & Output: Intake and Output for Last 24 Hours 03/22/24 03/23/24 03/24/24 23:59 23:59 23:59 Intake Total 1188.34 / 1188.34 660.00 / 660.00 808.25 / 808.25 Output Total 2600 / 2600 0 / 0 Balance 1163.34 / 1163.34 -1940.00 / -1940.00 808.25 / 808.25 Lab / Micro Data 03/24/24 03:50 03/24/24 03:50 Labs: Laboratory Results - last 24 hr 03/23/24 17:01: POC Glucose 138 H 03/24/24 03:50: WBC 11.0, RBC 3.21 L, Hgb 8.9 L, Hct 29.1 L, MCV 90.7, MCH 27.7, MCHC 30.6 L, RDW Std Deviation 61.8 H, RDW Coeff of Shanta 18.6 H, Plt Count 169, MPV 10.3, Immature Gran % (Auto) 0.300, Neut % (Auto) 67.4, Lymph % (Auto) 18.4 L, Door % (Auto) 8.6, Eos % (Auto) 4.7, Baso % (Auto) 0.6, Absolute Neuts (auto) 7.4, Absolute Lymphs (auto) 2.02, Nucleated RBC % 0, Sodium 137, Potassium 4.1, Chloride 100, Carbon Dioxide 29.0, Anion Gap 8, BUN 51 H, Creatinine 7.71 H*, Estim Creat Clear Calc 18.67, Est GFR (MDRD) Af Amer 10 L, Est GFR (MDRD) Non-Af 9 L, BUN/Creatinine Ratio 6.6 L, Glucose 130 H, Calcium 9.4 03/24/24 10:12: POC Glucose 145 H Micro: Microbiology 03/22/24 08:00 Wound Abcess - Ischium Gram Stain - Final 03/22/24 08:00 Wound Abcess - Ischium Wound Culture - Preliminary Gram negative polo Gram negative polo#2 GNR lactose head golf professional 03/22/24 08:00 Wound Abcess - Ischium Anaerobic Culture - Preliminary Checking for anaerobes, further studies to follow. 03/22/24 02:02 Urine Catheter - Hurst Urine Culture - Preliminary Pseudomonas aeruginosa GNR lactose head golf professional 03/22/24 02:01 Blood Culture (Wb) - Neck Blood Culture - Preliminary 03/22/24 02:03 Mucosa - Nose SARS-CoV-2, Influenza & RSV (PCR) - Final Radiography Diagnostic Testing: Radiology Impression Echocardiogram 03/22/24 07:56 Interpretation Summary Moderate concentric left ventricular hypertrophy. Mildly dilated left ventricle. The left ventricular ejection fraction is 50 %. Diastolic function is indeterminate. The left atrium is mildly enlarged. Mild mitral annular calcification. Mildly dilated aortic root. The study was technically difficult. Ordering Physician: Ben Schwartz Performed By: Carol Aranda LINDSEY Physical Exam Const alert and no apparent distress Constitutional Narrative: able to communicate. HEENT normocephalic, head/scalp atraumatic, hearing grossly normal bilaterally and moist oral mucous membranes Eyes PERRL and EOMs intact bilaterally Neck no lymphadenopathy and supple Lymph Lymphatic: no lymphadenopathy noted Resp no retractions, no use of accessory muscles and clear to auscultation bilaterally Resp Narrative: mildly diminished breath sounds bibasally, no wheezes or crackles. On room air. Cardio regular rate, regular rhythm, S1 normal heart sound, S2 normal heart sound and no murmurs GI normal to inspection, nondistended, normoactive bowel sounds, soft to palpation, non-tender and non-distended GI Narrative: Morbidly obese. Extremity normal capillary refill, no clubbing, cyanosis or edema and no calf tenderness Extremity Narrative: AV fistula in LUE. Undergoing dialysis. Left BKA. Right foot bandaged. Neuro CN's II-XII intact bilaterally and moves all extremities Psych thought process normal Psych Narrative: flat affect Assessment & Plan Assessment/Plan (1) Left ischial pressure sore: (2) Hypertensive emergency: PLAN: Plan #Hypertensive emergency * Blood pressures improved. On carvedilol and hydralazine. Midodrine held. IV hydralazine as needed. #Hematuria: * Still having some hematuria per Hurst catheter. * Eliquis on hold. CT abdomen and pelvis showed bladder wall thickening consistent with cystitis. * He is also being treated for UTI. * He does have a suprapubic catheter in place. #Probable catheter associated UTI * Urinalysis does not really show evidence of UTI but CT scan showed bladder wall thickening consistent with cystitis. On IV Zosyn. He does have a suprapubic catheter in place. * Urine cultures pending. #Sacral decubitus ulcer * Present on admission. Plastic surgery o board. CT scan showed a large ulcer overlying the left ischial tuberosity with findings consistent with osteomyelitis. * on IV zosyn * per plastics, there is a possibility the abscess rained digitally during plastic surgery evaluation * #Acute encephalopathy * resolved. Patient alert and communicative today. * continue to hold gabapentin and all nephrotoxic meds * #Hyperkalemia: resolved with dialysis. K is 4.1 today #ESRD: * Also has history of kidney transplantation and is on tacrolimus on dialysis Wednesdays and Fridays. * Currently on dialysis. * Nephrology on board. * #History of T5-T6 injury with resultant paraplegia * PT.OT On board. uses a wheelchair * has a neurogenic blader with suprapubic catheter in situ and is also s/p colostomy * #History of DVT and PE: On Eliquis. This currently on hold due to hematuria #Hyperlipidemia: On statin #Hypothyroidism: On Synthroid #Type 2 diabetes mellitus: On Lantus 17 units daily. Insulin sliding scale. Accu-Cheks ACHS. #Depression: On escitalopram but this has been held due to encephalopathy DVT prophylaxis: SCDs. No anticoagulation due to hematuria. Charges/Coding Visit Charges Inpatient E&M: 82314 Subs Hosp L2
--- NOTE | 2024-03-24 14:38 | PN.RENAL_ITS ---
Subjective Subjective no new events Objective Data Objective Data Vital Signs: Vital Signs Temp Pulse Resp BP Pulse Ox O2 Del Method O2 Flow Rate 98.0 F 93 18 150/77 H 96 Room Air 2 03/24/24 14:00 03/24/24 14:18 03/24/24 14:00 03/24/24 14:18 03/24/24 14:00 03/24/24 14:00 03/22/24 08:00 Oxygen Flow Rate (L/min) 2 Oxygen Delivery Method Room Air Weight: 130.8 kg Body Mass Index (BMI) 39.1 Intake & Output: Intake and Output for Last 24 Hours 03/22/24 03/23/24 03/24/24 23:59 23:59 23:59 Intake Total 1188.34 / 1188.34 660.00 / 660.00 808.25 / 808.25 Output Total 2600 / 2600 0 / 0 Balance 1163.34 / 1163.34 -1940.00 / -1940.00 808.25 / 808.25 Lab / Micro Data 03/24/24 03:50 03/24/24 03:50 Labs: Laboratory Results - last 24 hr 03/23/24 17:01: POC Glucose 138 H 03/24/24 03:50: WBC 11.0, RBC 3.21 L, Hgb 8.9 L, Hct 29.1 L, MCV 90.7, MCH 27.7, MCHC 30.6 L, RDW Std Deviation 61.8 H, RDW Coeff of Shanta 18.6 H, Plt Count 169, MPV 10.3, Immature Gran % (Auto) 0.300, Neut % (Auto) 67.4, Lymph % (Auto) 18.4 L, [place] % (Auto) 8.6, Eos % (Auto) 4.7, Baso % (Auto) 0.6, Absolute Neuts (auto) 7.4, Absolute Lymphs (auto) 2.02, Nucleated RBC % 0, Sodium 137, Potassium 4.1, Chloride 100, Carbon Dioxide 29.0, Anion Gap 8, BUN 51 H, Creatinine 7.71 H*, Estim Creat Clear Calc 18.67, Est GFR (MDRD) Af Amer 10 L, Est GFR (MDRD) Non-Af 9 L, BUN/Creatinine Ratio 6.6 L, Glucose 130 H, Calcium 9.4 03/24/24 10:12: POC Glucose 145 H Micro: Microbiology 03/22/24 08:00 Wound Abcess - Ischium Gram Stain - Final 03/22/24 08:00 Wound Abcess - Ischium Wound Culture - Preliminary Gram negative polo Gram negative polo#2 GNR lactose lining caser 03/22/24 08:00 Wound Abcess - Ischium Anaerobic Culture - Preliminary Checking for anaerobes, further studies to follow. 03/22/24 02:02 Urine Catheter - Cano Urine Culture - Preliminary Pseudomonas aeruginosa GNR lactose lining caser 03/22/24 02:01 Blood Culture (Wb) - Neck Blood Culture - Preliminary 03/22/24 02:03 Mucosa - Nose SARS-CoV-2, Influenza & RSV (PCR) - Final Radiography Diagnostic Testing: Radiology Impression Echocardiogram 03/22/24 07:56 Interpretation Summary Moderate concentric left ventricular hypertrophy. Mildly dilated left ventricle. The left ventricular ejection fraction is 50 %. Diastolic function is indeterminate. The left atrium is mildly enlarged. Mild mitral annular calcification. Mildly dilated aortic root. The study was technically difficult. Ordering Physician: Ben Schwartz Performed By: Carol Aranda RDCS Physical Exam Narrative no apparent distress, not alert S1, S2 RRR Lung sounds clear abdomen soft, + colostomy No edema suprapubic cano AV fistula +thrill and bruit Assessment & Plan Assessment/Plan (1) ESRD (end stage renal disease) on dialysis: (2) Hyperkalemia: (3) Acute alteration in mental status: (4) UTI (urinary tract infection): PLAN: Plan This is a 38-year-old male with past medical history significant for ESRD on hemodialysis at [facility] followed by Dr. Granda, receives dialysis on a Saturday, Saturday, , Saturday schedule, last dialyzed Saturday who was admitted to the hospital for altered mental status changes, acute cystitis and hyperkalemia. Potassium was 6 on admission, peaked to 7.0 but was given multiple doses IV medications for hyperkalemia and this morning potassium improved to 5.4. Nephrology consulted as patient has history of ESRD and dialysis management. Patient underwent hemodialysis today on 2K bath and tolerated around 2 L fluid removal. maintain dialysis schedule of Saturday while patient is in the hospital.
[2024-03-24 17:40] LABS: Bedside Glucose 156 mg/dL (74-106)
[2024-03-24] MEDS: Insulin Glargine-YFGN 100 UNIT/ML Pen 7 UNIT SC (18:07)
[2024-03-24] MEDS: Escitalopram Oxalate 10 MG Tablet 15 MG PO (20:54)
[2024-03-24] MEDS: Atorvastatin Calcium 40 MG Tablet PO (20:54)
[2024-03-24] MEDS: Clotrimazole/Betamethasone 1 Tube 1 APPLIC TOPICAL (20:55)
[2024-03-25] VITALS (14 sets, daily range): BP systolic 123–272; BP diastolic 48–117; PULSE 83–101; RESP 12–18; TEMP 36.5–36.8; O2SAT 99–100; BMI 39.2; BMI 40.7; BMI 40.0
[2024-03-25] MEDS: hydrALAZINE 25 MG Tablet 75 MG PO ×2 (06:36→22:03)
[2024-03-25] MEDS: Levothyroxine 150 MCG Tablet PO (06:37)
[2024-03-25 06:42] LABS: Absolute Lymphocyte Count 2.14 X10^3/uL (0.83-4.51); Absolute Neutrophil Count 4.3 X10^3/uL (2.0-7.7); Basophil# 0.08 X10^3/uL; Eosinophil# 0.64 X10^3/uL; Eosinophils% 7.9 % (0-5); Hematocrit 27.8 % (40-54); Hemoglobin 8.4 g/dL (13.0-16.5); Lymphocyte # 2.14 X10^3/ul (0.83-4.51); Lymphocyte % 26.3 % (19-41); Mean Corp Hgb Conc 30.2 g/dL (32-36); Mean Corpuscular Hgb 27.2 pg (27.0-32.0); Mean Platelet Vol. 10.2 fl (6.2-12.0); Monocyte# 0.88 X10^3/uL; Monocyte% 10.8 % (0-10); NRBC Flagged by Analyzer 0 % (0-5); Neutrophil # 4.34 X10^3/uL (2.7-7.7); Neutrophil % 53.4 % (47-70); Platelet Count 172 K/mm3 (150-450); RBC Distribution Width CV 18.3 % (11.6-14.6); Red Blood Count 3.09 M/mm3 (4.6-6.2); White Blood Count 8.1 K/mm3 (4.4-11.0)
[2024-03-25 07:08] LABS: Vancomycin, Random Level 29.6 ug/mL (0.0-15.0)
--- NOTE | 2024-03-25 07:38 | PCM.RX.CS ---
Consult Antibiotic Management Pharmacy has been consulted to manage selected antibiotic: Vancomycin Type of Intervention Type of Consult: Follow-up Prior Doses of Antibiotics Prior Doses of Antibiotics Received/Current Regimen: the patient received a 1000mg dose of vanc on 03/23 at 15:33 and a 2000mg dose on 03/22 at 05:08 Labs Labs: Sodium 137 mmol/L (136-145) 03/24/24 03:50 Potassium 4.1 mmol/L (3.5-5.1) 03/24/24 03:50 Chloride 100 mmol/L (98-107) 03/24/24 03:50 Carbon Dioxide 29.0 mmol/L (21.0-32.0) 03/24/24 03:50 Anion Gap 8 (5-15) 03/24/24 03:50 BUN 51 mg/dL (7-18) H 03/24/24 03:50 Creatinine 7.71 mg/dL (0.70-1.30) H* 03/24/24 03:50 Est GFR (MDRD) Af Amer 10 mL/min (>60) L 03/24/24 03:50 Est GFR (MDRD) Non-Af 9 mL/min (>60) L 03/24/24 03:50 BUN/Creatinine Ratio 6.6 RATIO (10-20) L 03/24/24 03:50 Glucose 130 mg/dL (74-106) H 03/24/24 03:50 Random Vancomycin 29.6 ug/mL (0.0-15.0) H 03/25/24 06:20 Microbiology Microbiology: Microbiology 03/22/24 08:00 Wound Abcess - Ischium Gram Stain - Final 03/22/24 08:00 Wound Abcess - Ischium Wound Culture - Preliminary Gram negative polo Gram negative polo#2 GNR lactose pipe bowls paint trimmer 03/22/24 08:00 Wound Abcess - Ischium Anaerobic Culture - Preliminary Checking for anaerobes, further studies to follow. 03/22/24 02:02 Urine Catheter - Hurst Urine Culture - Preliminary Pseudomonas aeruginosa GNR lactose pipe bowls paint trimmer 03/22/24 02:01 Blood Culture (Wb) - Neck Blood Culture - Preliminary 03/22/24 02:03 Mucosa - Nose SARS-CoV-2, Influenza & RSV (PCR) - Final Dosing Weight Weight used for dosin.4 kg Estimated Creatinine Clearance Estimated Creatinine Clearance: on HD Goal Trough Goal Trough: 15-20 mcg/mL Pharmacy Plan for Drug Dosing Pharmacy Plan for Drug Dosing: The vanc random level drawn at 06:20 today was 29.6. This is above 20 so no dose will need to be given today after dialysis. The patient is on a MWF dialysis schedule here so will order another vanc random level for Saturday morning prior to HD. Pharmacy Service will continue to monitor and adjust dosing as required. Follow-Up Labs Follow-Up Labs: Trough: Vancomycin (random) Date/Time Labs Ordered Labs to be done on [date and time ordered]: 03/27/24 0600
--- NOTE | 2024-03-25 08:03 | PCM.PN.INT ---
Assessment & Plan Assessment/Plan (1) Acute alteration in mental status: (2) Metabolic encephalopathy: (3) ESRD (end stage renal disease) on dialysis: (4) Left ischial pressure sore: PLAN: Plan RECOMMENDATIONS: 1. Continue antimicrobial therapy, pending finalized culture results. 2. Continue to hold all sedating medications. 3. Ongoing dialysis support per nephrology recommendations. 4. Continue basal and sliding scale insulin coverage. 5. Encourage incentive spirometer use and mobilize patient as tolerated. 6. Will sign off from a critical care perspective. Please call with any additional questions. IMPRESSIONS: 1. Multifactorial infection with concern for UTI, pneumonia and decubitus ulcer The patient presented to the hospital with multiple potential sources of infection including UTI, pneumonia and decubitus ulcer. He has been maintained on appropriate antimicrobial therapy, pending culture results. The patient remains otherwise hemodynamically stable. 2. Hypertensive urgency Resolved. The patient was initially medically managed with nicardipine, which has been weaned off at the present time. 3. Metabolic encephalopathy Improving. Clinical concern for underlying renal dysfunction with superimposed infection contributing. Continue supportive measures with antimicrobials and proceed with dialysis as scheduled. Prior ABG demonstrated no evidence of CO2 retention and TSH was within normal limits. 4. History of kidney transplantation on tacrolimus/end-stage renal disease on hemodialysis/neurogenic bladder Continue supportive care with dialysis support per nephrology recommendations. 5. History of hypertension/hyperlipidemia/hypothyroidism/diabetes mellitus/morbid obesity/history of paraplegia/history of DVT/PE Complicates care, management, recovery and prognosis. Continue home medications as indicated. TSH was within normal limits. This note was generated with [employer] dictation software. It may contain incorrect words, spelling, and punctuation that were not noted in checking the note before signing. Subjective Subjective The patient was seen and examined at the bedside this morning. Events from the last 24 hours have been reviewed. The patient is currently afebrile, hemodynamically stable and maintaining appropriate oxygen saturations on 2 L/min via nasal cannula. No overnight events were reported. Morning labs are stable. Objective Data Objective Data The patient's most recent lab work, culture data and imaging studies have all been personally reviewed. COVID, influenza and RSV PCR's were negative. Urine culture is currently demonstrating growth of Pseudomonas. Wound cultures are demonstrating growth of 2+ gram-negative rods. Vital Signs: Vital Signs Temp Pulse Resp BP Pulse Ox O2 Del Method O2 Flow Rate 97.3 F L 88 20 H 146/88 H 93 Nasal Cannula 2 03/24/24 23:46 03/25/24 06:36 03/24/24 23:46 03/25/24 06:36 03/24/24 23:46 03/25/24 05:35 03/25/24 05:35 Oxygen Flow Rate (L/min) 2 Oxygen Delivery Method Nasal Cannula Weight: 289 lb 10.998 oz Body Mass Index (BMI) 39.2 Intake & Output: Intake and Output for Last 24 Hours 03/23/24 03/24/24 03/25/24 23:59 23:59 23:59 Intake Total 660.00 / 660.00 1080.00 / 1080.00 50 / 50 Output Total 2600 / 2600 0 / 0 Balance -1940.00 / -1940.00 1080.00 / 1080.00 50 / 50 Lab / Micro Data Attestation: I reviewed the patient's lab results. 03/25/24 06:20 03/24/24 03:50 Labs: Laboratory Results - last 24 hr 03/24/24 10:12: POC Glucose 145 H 03/24/24 17:16: POC Glucose 156 H 03/25/24 06:20: WBC 8.1, RBC 3.09 L, Hgb 8.4 L, Hct 27.8 L, MCV 90.0, MCH 27.2, MCHC 30.2 L, RDW Std Deviation 60.0 H, RDW Coeff of Shanta 18.3 H, Plt Count 172, MPV 10.2, Immature Gran % (Auto) 0.600, Neut % (Auto) 53.4, Lymph % (Auto) 26.3, [place] % (Auto) 10.8 H, Eos % (Auto) 7.9 H, Baso % (Auto) 1.0, Absolute Neuts (auto) 4.3, Absolute Lymphs (auto) 2.14, Nucleated RBC % 0, Random Vancomycin 29.6 H Micro: Microbiology 03/22/24 08:00 Wound Abcess - Ischium Gram Stain - Final 03/22/24 08:00 Wound Abcess - Ischium Wound Culture - Preliminary Gram negative polo Gram negative polo#2 GNR lactose information technology program manager 03/22/24 08:00 Wound Abcess - Ischium Anaerobic Culture - Preliminary Checking for anaerobes, further studies to follow. 03/22/24 02:02 Urine Catheter - Hurst Urine Culture - Preliminary Pseudomonas aeruginosa GNR lactose information technology program manager 03/22/24 02:01 Blood Culture (Wb) - Neck Blood Culture - Preliminary 03/22/24 02:03 Mucosa - Nose SARS-CoV-2, Influenza & RSV (PCR) - Final ABG Data ABG results: ABG 03/23/24 08:53 Specimen Type ART Sample Site R Brach pH 7.48 H Bicarbonate Actual 29.1 H Total CO2 30 Base Excess 6 H O2 Saturation 91 L O2 % 21.0 ABG pCO2 39.1 ABG pO2 56 L O2 Delivery Device Not entered Vent Mode Not entered Radiography Diagnostic Testing: Radiology Impression Echocardiogram 03/22/24 07:56 Interpretation Summary Moderate concentric left ventricular hypertrophy. Mildly dilated left ventricle. The left ventricular ejection fraction is 50 %. Diastolic function is indeterminate. The left atrium is mildly enlarged. Mild mitral annular calcification. Mildly dilated aortic root. The study was technically difficult. Ordering Physician: Ben Schwartz Performed By: Carol Aranda RDCS Physical Exam Const alert and no apparent distress HEENT normocephalic and head/scalp atraumatic Eyes PERRL and EOMs intact bilaterally Neck supple General: trachea midline Chest inspection of chest normal Resp normal respiratory effort Auscultation: diminished lung sounds Cardio regular rate and regular rhythm GI normal to inspection, nondistended, normoactive bowel sounds Extremity General Extremity: amputation and edema Skin Skin Narrative: Ischial pressure sore present Neuro moves all extremities and no focal motor deficits Psych Mood & Affect: flat affect Charges/Coding Visit Charges Inpatient E&M: 14057 Subs Hosp L2
[2024-03-25] MEDS: SEVELAMER CARBONATE 800 MG TABLET 2400 MG PO ×3 (10:00→17:45)
[2024-03-25] MEDS: Carvedilol 12.5 MG Tablet PO ×2 (10:01→17:44)
[2024-03-25] MEDS: Pantoprazole Sodium 40 MG Tablet PO (10:01)
[2024-03-25] MEDS: Piperacil/Tazobactam 3.375 GM in 0.9% Normal Saline (50mL MB+) 50 ML IV (10:02)
[2024-03-25] MEDS: Tacrolimus Anhydrous 1 MG Capsule PO ×2 (10:02→20:37)
--- NOTE | 2024-03-25 10:26 | PCM.PN.REN ---
Subjective Subjective Resting in bed. No overnight events. More alert and oriented today. Objective Data Objective Data Vital Signs: Vital Signs Temp Pulse Resp BP Pulse Ox O2 Del Method O2 Flow Rate 97.7 F L 85 16 156/51 H 99 Nasal Cannula 2 03/25/24 09:46 03/25/24 09:46 03/25/24 09:46 03/25/24 09:46 03/25/24 09:46 03/25/24 09:53 03/25/24 09:53 Oxygen Flow Rate (L/min) 2 Oxygen Delivery Method Nasal Cannula Weight: 131.4 kg Body Mass Index (BMI) 39.2 Intake & Output: Intake and Output for Last 24 Hours 03/23/24 03/24/24 03/25/24 23:59 23:59 23:59 Intake Total 660.00 / 660.00 1080.00 / 1080.00 50 / 50 Output Total 2600 / 2600 0 / 0 Balance -1940.00 / -1940.00 1080.00 / 1080.00 50 / 50 Lab / Micro Data 03/25/24 06:20 03/24/24 03:50 Labs: Laboratory Results - last 24 hr 03/24/24 10:12: POC Glucose 145 H 03/24/24 17:16: POC Glucose 156 H 03/25/24 06:20: WBC 8.1, RBC 3.09 L, Hgb 8.4 L, Hct 27.8 L, MCV 90.0, MCH 27.2, MCHC 30.2 L, RDW Std Deviation 60.0 H, RDW Coeff of Shanta 18.3 H, Plt Count 172, MPV 10.2, Immature Gran % (Auto) 0.600, Neut % (Auto) 53.4, Lymph % (Auto) 26.3, [place] % (Auto) 10.8 H, Eos % (Auto) 7.9 H, Baso % (Auto) 1.0, Absolute Neuts (auto) 4.3, Absolute Lymphs (auto) 2.14, Nucleated RBC % 0, Random Vancomycin 29.6 H Micro: Microbiology 03/22/24 02:01 Blood Culture (Wb) - Neck Blood Culture - Preliminary Staphylococcus capitis 03/22/24 08:00 Wound Abcess - Ischium Gram Stain - Final 03/22/24 08:00 Wound Abcess - Ischium Wound Culture - Preliminary Pseudomonas aeruginosa Acinetobacter baumannii Escherichia coli 03/22/24 08:00 Wound Abcess - Ischium Anaerobic Culture - Preliminary Checking for anaerobes, further studies to follow. 03/22/24 02:02 Urine Catheter - Cano Urine Culture - Preliminary Pseudomonas aeruginosa Escherichia coli 03/22/24 02:03 Mucosa - Nose SARS-CoV-2, Influenza & RSV (PCR) - Final Radiography Diagnostic Testing: Radiology Impression Echocardiogram 03/22/24 07:56 Interpretation Summary Moderate concentric left ventricular hypertrophy. Mildly dilated left ventricle. The left ventricular ejection fraction is 50 %. Diastolic function is indeterminate. The left atrium is mildly enlarged. Mild mitral annular calcification. Mildly dilated aortic root. The study was technically difficult. Ordering Physician: Ben Schwartz Performed By: Carol Aranda RDCS Physical Exam Narrative Alert and oriented, no apparent distress S1, S2 RRR Lung sounds clear abdomen soft, + colostomy No edema suprapubic cano AV fistula +thrill and bruit Assessment & Plan Assessment/Plan (1) ESRD (end stage renal disease) on dialysis: (2) Hyperkalemia: (3) Acute alteration in mental status: (4) UTI (urinary tract infection): PLAN: Plan This is a 38-year-old male with past medical history significant for ESRD on hemodialysis at [facility] followed by Dr. Granda, receives dialysis on a Saturday, Saturday, , Saturday schedule, who was admitted to the hospital for altered mental status changes, acute cystitis and hyperkalemia. Nephrology consulted as patient has history of ESRD and dialysis management. Patient tolerated dialysis on Saturday. Patient to undergo hemodialysis today. We will maintain dialysis schedule of Saturday while patient is in the hospital. On antibiotics for UTI, pneumonia and decubitus ulcer. Overall blood pressures improved.
--- NOTE | 2024-03-25 11:08 | PN_ITS ---
Subjective Subjective Patient seen and examined. He had no active complaints. He is still having hematuria. Review of systems is otherwise negative. He remains hemodynamically stable. He is on 2L of oxygen, and remains alert and communicative today. Objective Data Objective Data Vital Signs: Vital Signs Temp Pulse Resp BP Pulse Ox O2 Del Method O2 Flow Rate 97.7 F L 85 16 156/51 H 99 Nasal Cannula 2 03/25/24 09:46 03/25/24 09:46 03/25/24 09:46 03/25/24 09:46 03/25/24 09:46 03/25/24 09:53 03/25/24 09:53 Oxygen Flow Rate (L/min) 2 Oxygen Delivery Method Nasal Cannula Weight: 289 lb 10.998 oz Body Mass Index (BMI) 39.2 Intake & Output: Intake and Output for Last 24 Hours 03/23/24 03/24/24 03/25/24 23:59 23:59 23:59 Intake Total 660.00 / 660.00 1080.00 / 1080.00 50 / 50 Output Total 2600 / 2600 0 / 0 Balance -1940.00 / -1940.00 1080.00 / 1080.00 50 / 50 Lab / Micro Data 03/25/24 06:20 03/24/24 03:50 Labs: Laboratory Results - last 24 hr 03/24/24 17:16: POC Glucose 156 H 03/25/24 06:20: WBC 8.1, RBC 3.09 L, Hgb 8.4 L, Hct 27.8 L, MCV 90.0, MCH 27.2, MCHC 30.2 L, RDW Std Deviation 60.0 H, RDW Coeff of Shanta 18.3 H, Plt Count 172, MPV 10.2, Immature Gran % (Auto) 0.600, Neut % (Auto) 53.4, Lymph % (Auto) 26.3, [place] % (Auto) 10.8 H, Eos % (Auto) 7.9 H, Baso % (Auto) 1.0, Absolute Neuts (auto) 4.3, Absolute Lymphs (auto) 2.14, Nucleated RBC % 0, Random Vancomycin 29.6 H Micro: Microbiology 03/22/24 02:01 Blood Culture (Wb) - Neck Blood Culture - Preliminary Staphylococcus capitis 03/22/24 08:00 Wound Abcess - Ischium Gram Stain - Final 03/22/24 08:00 Wound Abcess - Ischium Wound Culture - Preliminary Pseudomonas aeruginosa Acinetobacter baumannii Escherichia coli 03/22/24 08:00 Wound Abcess - Ischium Anaerobic Culture - Preliminary Checking for anaerobes, further studies to follow. 03/22/24 02:02 Urine Catheter - Hurst Urine Culture - Preliminary Pseudomonas aeruginosa Escherichia coli 03/22/24 02:03 Mucosa - Nose SARS-CoV-2, Influenza & RSV (PCR) - Final Radiography Diagnostic Testing: Radiology Impression Echocardiogram 03/22/24 07:56 Interpretation Summary Moderate concentric left ventricular hypertrophy. Mildly dilated left ventricle. The left ventricular ejection fraction is 50 %. Diastolic function is indeterminate. The left atrium is mildly enlarged. Mild mitral annular calcification. Mildly dilated aortic root. The study was technically difficult. Ordering Physician: Ben Schwartz Performed By: Carol Aranda RDCS Physical Exam Const alert, oriented x3 and no apparent distress HEENT normocephalic, head/scalp atraumatic, hearing grossly normal bilaterally and moist oral mucous membranes Eyes PERRL and EOMs intact bilaterally Neck no lymphadenopathy and supple Lymph Lymphatic: no lymphadenopathy noted Resp normal respiratory effort, no retractions, no use of accessory muscles and clear to auscultation bilaterally Resp Narrative: mildly diminished breath sounds bibasally, no wheezes or crackles. On room air. Cardio regular rate, regular rhythm, S1 normal heart sound, S2 normal heart sound and no murmurs GI normal to inspection, nondistended, normoactive bowel sounds, soft to palpation, non-tender and non-distended GI Narrative: Morbidly obese. Extremity normal capillary refill, no clubbing, cyanosis or edema and no calf tenderness Extremity Narrative: AV fistula in LUE. Undergoing dialysis. Left BKA. Right foot bandaged. Skin General Skin Exam: no breakdown Neuro CN's II-XII intact bilaterally, moves all extremities and no focal motor deficits Motor Exam: general weakness Psych thought process normal Psych Narrative: flat affect Appearance: appropriate Assessment & Plan Assessment/Plan (1) Left ischial pressure sore: (2) Hypertensive emergency: PLAN: Plan #Hypertensive emergency * Blood pressures improved. On carvedilol and hydralazine. Midodrine held. IV hydralazine as needed. #Hematuria: * Still having some hematuria per Hurst catheter. * Eliquis on hold. CT abdomen and pelvis showed bladder wall thickening consistent with cystitis. * He is also being treated for UTI. * He does have a suprapubic catheter in place. * still having persistent hematuria, so urology consulted. #Probable catheter associated UTI * Urinalysis does not really show evidence of UTI but CT scan showed bladder wall thickening consistent with cystitis. On IV Zosyn. He does have a suprapubic catheter in place. * Urine cultures pending. #Sacral decubitus ulcer * Present on admission. Plastic surgery o board. CT scan showed a large ulcer overlying the left ischial tuberosity with findings consistent with osteomyelitis. * on IV zosyn * per plastics, there is a possibility the abscess rained digitally during plastic surgery evaluation * #Acute encephalopathy * resolved. Patient alert and communicative today. * continue to hold gabapentin and all nephrotoxic meds * #Hyperkalemia: resolved with dialysis. K is 4.1 today #ESRD: * Also has history of kidney transplantation and is on tacrolimus on dialysis Wednesdays and Fridays. * Currently on dialysis. * Nephrology on board. * #History of T5-T6 injury with resultant paraplegia * PT.OT On board. uses a wheelchair * has a neurogenic blader with suprapubic catheter in situ and is also s/p colostomy * #History of DVT and PE: On Eliquis. This currently on hold due to hematuria #Hyperlipidemia: On statin #Hypothyroidism: On Synthroid #Type 2 diabetes mellitus: On Lantus 17 units daily. Insulin sliding scale. Accu-Cheks ACHS. #Depression: On escitalopram but this has been held due to encephalopathy DVT prophylaxis: SCDs. No anticoagulation due to hematuria. Charges/Coding Visit Charges Inpatient E&M: 97960 Subs Hosp L2
--- NOTE | 2024-03-25 11:37 | PCM.PN.SRG ---
Subjective Subjective Jabari is sitting up in bed. He is alert and oriented. He is denying any complaints at this time. He states that he doesn't remember coming into the hospital and he feels like he lost a few days of his life. He is denying any issues with his left ischial ulcer. He states he is eating well. Objective Data Objective Data Vital Signs: Vital Signs Temp Pulse Resp BP Pulse Ox O2 Del Method O2 Flow Rate 97.7 F L 85 16 156/51 H 99 Nasal Cannula 2 03/25/24 09:46 03/25/24 09:46 03/25/24 09:46 03/25/24 09:46 03/25/24 09:46 03/25/24 09:53 03/25/24 09:53 Oxygen Flow Rate (L/min) 2 Oxygen Delivery Method Nasal Cannula Weight: 289 lb 10.998 oz Body Mass Index (BMI) 39.2 Intake & Output: Intake and Output for Last 24 Hours 03/23/24 03/24/24 03/25/24 23:59 23:59 23:59 Intake Total 660.00 / 660.00 1080.00 / 1080.00 50 / 50 Output Total 2600 / 2600 0 / 0 Balance -1940.00 / -1940.00 1080.00 / 1080.00 50 / 50 Lab / Micro Data Attestation: I reviewed the patient's lab results. 03/25/24 06:20 03/24/24 03:50 Labs: Laboratory Results - last 24 hr 03/24/24 17:16: POC Glucose 156 H 03/25/24 06:20: WBC 8.1, RBC 3.09 L, Hgb 8.4 L, Hct 27.8 L, MCV 90.0, MCH 27.2, MCHC 30.2 L, RDW Std Deviation 60.0 H, RDW Coeff of Shanta 18.3 H, Plt Count 172, MPV 10.2, Immature Gran % (Auto) 0.600, Neut % (Auto) 53.4, Lymph % (Auto) 26.3, [place] % (Auto) 10.8 H, Eos % (Auto) 7.9 H, Baso % (Auto) 1.0, Absolute Neuts (auto) 4.3, Absolute Lymphs (auto) 2.14, Nucleated RBC % 0, Random Vancomycin 29.6 H Micro: Microbiology 03/22/24 02:01 Blood Culture (Wb) - Neck Blood Culture - Preliminary Staphylococcus capitis 03/22/24 08:00 Wound Abcess - Ischium Gram Stain - Final 03/22/24 08:00 Wound Abcess - Ischium Wound Culture - Preliminary Pseudomonas aeruginosa Acinetobacter baumannii Escherichia coli 03/22/24 08:00 Wound Abcess - Ischium Anaerobic Culture - Preliminary Checking for anaerobes, further studies to follow. 03/22/24 02:02 Urine Catheter - Hurst Urine Culture - Preliminary Pseudomonas aeruginosa Escherichia coli 03/22/24 02:03 Mucosa - Nose SARS-CoV-2, Influenza & RSV (PCR) - Final Radiography Diagnostic Testing: Radiology Impression Echocardiogram 03/22/24 07:56 Interpretation Summary Moderate concentric left ventricular hypertrophy. Mildly dilated left ventricle. The left ventricular ejection fraction is 50 %. Diastolic function is indeterminate. The left atrium is mildly enlarged. Mild mitral annular calcification. Mildly dilated aortic root. The study was technically difficult. Ordering Physician: Ben Schwartz Performed By: Carol Aranda RDCS Physical Exam Const alert, oriented x3 and no apparent distress General Appearance: cooperative HEENT normocephalic Neck full ROM Resp normal respiratory effort and normal air movement Effort and Inspection: able to speak in complete sentences Skin Wound Narrative: Left ischial ulcer opening is smaller than when I last saw him at the wound center. Still able to palpate bone, but the overall ulcer is smaller in size. Depth is 3 cm. Chelsey wound is stable. Changed dressing, packed with Dakin's moistened gauze and topped with ABD pad. Neuro oriented x3 Psych mental status grossly normal, thought process normal and cooperative Assessment & Plan Assessment/Plan (1) 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, stage 4: (2) Paraplegia: (3) ESRD (end stage renal disease) on dialysis: PLAN: Plan Dakin's moistened gauze dressing changes twice daily. Continue low air loss mattress. Turn every 2 hours. Try to prevent pressure on left ischial ulcer. No sign of abscess when palpating ulcer today. Still able to palpate bone, but overall ulcer is smaller than when he was previously seen at the wound center. Ischial wound cultures from 03/22/24 positive for Pseudomonas aeruginosa, Acinetobacter baumannii, Escherichia coli. He is on Vanc and Zosyn. He is receiving hemodialysis later today. Upon discharge, he is follow up with me at the wound healing center. Charges/Coding Visit Charges Inpatient E&M: 33308 [facility] Hosp L1
[2024-03-25 13:01] LABS: Bedside Glucose 153 mg/dL (74-106)
[2024-03-25] MEDS: DAKIN'S SOL HALF STRENGTH (=0.25%) TOPICAL ×2 (13:39→23:24)
[2024-03-25] MEDS: 0.9% Normal Saline 1,000 ML IV.SOLN. 1000 ML OPERA.SITE (15:42)
[2024-03-25] MEDS: 0.9% Saline Lock 10 ML Syringe IV ×3 (15:43→23:59)
--- NOTE | 2024-03-25 15:48 | PCM.CONS.GEN ---
Assessment & Plan Assessment/Plan (1) Abscess: PLAN: concern for ischial osteo on imaging. Surgery following. On empiric vanc/zosyn. Bcx with CoNS. Ucx with PsA, GNR. Wound cx with GNR x3. Will change to vanc/lupe/cipro to cover new cx results. Will follow, thank you (2) ESRD (end stage renal disease) on dialysis: (3) Paraplegia: HPI Consult Data Date of Consult: 03/25/24 HPI Narrative Reason for Consultation: osteo HPI Narrative: JABARI GUILLEN, is a 38 M with paraplegia, presented 03/22 with confusion, lethargy, htn. Found to have suspected pneumonia, worsening decub ulcer. Now on vanc/zosyn, feeling ok. No focal complaints. Full ROS performed and neg except as noted above. 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 H/O deep venous thrombosis Osteomyelitis of pelvic region Lives in [facility] Anxiety Open wound Insulin dependent diabetes mellitus Uses wheelchair Injury of back Community acquired MRSA infection Non-healing wound of amputation stump DM type 2, goal HbA1c < 7% 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, stage 4 Hypomagnesemia Hyperosmolality and hypernatremia Neurogenic bowel Pericardial effusion (noninflammatory) SIRS (systemic inflammatory response syndrome) Pyrexia Chronic kidney disease with end stage renal failure on dialysis Kidney transplant failure Dependence on renal dialysis Pressure ulcer of left heel, unspecified stage Gastro-esophageal reflux disease without esophagitis Acute on chronic systolic (congestive) heart failure Other pericardial effusion (noninflammatory) Other pulmonary embolism without acute cor pulmonale Hypertensive heart and chronic kidney disease with heart failure and stage 1 through stage 4 chronic kidney disease, or unspecified chronic kidney disease Depression Hyperlipemia Hypothyroidism Anemia in chronic kidney disease Neuromuscular dysfunction of bladder, unspecified Paraplegia, incomplete Other acute osteomyelitis, left ankle and foot End stage renal disease Acute pulmonary edema Acute respiratory failure with hypoxia Home Medications ?Medication ?Instructions ?Recorded ?Last Taken ?Type acetaminophen 325 mg tablet 650 mg PO Q4H PRN PAIN/FEVER 01/02/23 04/21/23 History apixaban 5 mg tablet (Eliquis) 5 mg PO BID blood thinner 01/02/23 07/16/23 History ascorbic acid (vitamin C) 500 mg 500 mg PO QHS supplement 01/02/23 12/08/23 History tablet atorvastatin 40 mg tablet 40 mg PO QHS hypercholestremia 01/02/23 12/08/23 History bisacodyl 10 mg rectal suppository 10 mg FL DAILY PRN Constipation 01/02/23 Unknown History carvedilol 12.5 mg tablet 12.5 mg PO Q12H HYPERTENSION 01/02/23 12/09/23 History clotrimazole-betamethasone 1 1 applic topical QHS rash 01/02/23 07/15/23 History %-0.05 % topical cream dextrose 40 % oral gel (Glucose 15 g PO Q15M PRN Hypoglycemia 01/02/23 Unknown History Gel) hydralazine 25 mg tablet 50 mg PO Q8 hypertension 01/02/23 12/09/23 History insulin glargine 100 unit/mL (3 11 unit subcut 1700 diabetes 01/02/23 12/08/23 History mL) subcutaneous pen (Lantus Solostar U-100 Insulin) insulin lispro 100 unit/mL 6 unit subcut QHS diabetes 01/02/23 07/16/23 History subcutaneous pen (Humalog KwikPen (U-100) Insulin) midodrine 10 mg tablet 10 mg PO MOTUTHFR DIALYSIS 01/02/23 12/09/23 History ondansetron HCl 4 mg tablet 4 mg PO Q8H PRN PRN Nausea 01/02/23 Unknown History pantoprazole 40 mg tablet,delayed 40 mg PO DAILY gerd 01/02/23 12/08/23 History release polyethylene glycol 3350 17 gram 17 g PO DAILY PRN constipation 01/02/23 Unknown History oral powder packet promethazine 12.5 mg tablet 12.5 mg PO Q8H PRN Nausea 01/02/23 07/15/23 History sennosides 8.6 mg-docusate sodium 1 tab-cap PO BID Constipation 01/02/23 07/16/23 History 50 mg capsule (Senna Plus) tacrolimus 1 mg capsule, 2 mg PO Q12H immunosuppressive 01/02/23 12/09/23 History immediate-release (Prograf) trazodone 50 mg tablet 50 mg PO QHS insomnia 01/02/23 12/08/23 History gabapentin 100 mg capsule 200 mg PO BID PHANTOM PAIN 04/21/23 12/09/23 History sevelamer HCl 800 mg tablet 2,400 mg PO TIDCM ESRD 04/21/23 07/16/23 History levothyroxine 150 mcg tablet 150 mcg PO DAILY@0600 07/16/23 12/09/23 History hypothyroidism oxycodone 10 mg tablet 10 mg PO Q4H PRN pain 2 days #12 07/19/23 Unknown Rx tabs acetaminophen 650 mg rectal 650 mg FL Q4H PRN fever or pain 08/06/23 Unknown History suppository glucagon 1 mg injection kit 1 mg subcut X1 PRN hypoglycemia 08/06/23 Unknown History magnesium hydroxide 400 mg/5 mL 30 ml PO DAILY PRN constipation 08/06/23 Unknown History oral suspension (Milk of Magnesia) ciclopirox 8 % topical solution 1 applic topical QHS nail fungus 11/17/23 Unknown History insulin lispro 100 unit/mL 9 unit subcut DAILY diabetes 11/17/23 Unknown History subcutaneous pen (Humalog KwikPen (U-100) Insulin) diphenhydramine-zinc acetate 2 1 applic topical Q6H PRN PRN 12/06/23 Unknown History %-0.1 % topical cream (Benadryl itching Extra Strength) escitalopram oxalate 10 mg tablet 15 mg PO QHS depression 12/30/23 Unknown History (Lexapro) vancomycin 1 gram/200 mL in 0.9 % 1 g (200 mL) IV .see below 16 days 01/02/24 Unknown Rx sod. chloride intravenous piggyback insulin lispro 100 unit/mL See Protocol subcut TIDCM 03/22/24 Unknown History subcutaneous pen insulin lispro 100 unit/mL 11 unit subcut DAILY@1700 03/22/24 Unknown History subcutaneous solution vitamin B complex-vitamin C-folic 1 tab PO DAILY 03/22/24 Unknown History acid 0.8 mg tablet Allergy/AdvReac Type Severity Reaction Status Date / Time No Known Allergies Allergy Verified 02/18/24 04:45 Family History Mother Hypertension Diabetes Father Hypertension Diabetes Surgical History History of kidney transplant S/P unilateral above knee amputation S/P foot surgery S/P colostomy Social History housing: [facility] Smoking Status: Never smoker alcohol intake: never substance use type: does not use Physical Exam Const alert and no apparent distress General Appearance: cooperative HEENT normocephalic and head/scalp atraumatic Eyes PERRL and EOMs intact bilaterally Neck supple and No nodes Resp normal air movement and clear to auscultation bilaterally Cardio regular rate and regular rhythm GI soft to palpation, non-tender and non-distended Extremity General Extremity: edema Skin Skin Narrative: reviewed photos of wound Neuro CN's II-XII intact bilaterally Neuro Narrative: paraplegia Lab / Micro Data Attestation: I reviewed the patient's lab results. 03/25/24 06:20 03/24/24 03:50 Labs: Laboratory Results - last 24 hr 03/24/24 17:16: POC Glucose 156 H 03/25/24 06:20: WBC 8.1, RBC 3.09 L, Hgb 8.4 L, Hct 27.8 L, MCV 90.0, MCH 27.2, MCHC 30.2 L, RDW Std Deviation 60.0 H, RDW Coeff of Shanta 18.3 H, Plt Count 172, MPV 10.2, Immature Gran % (Auto) 0.600, Neut % (Auto) 53.4, Lymph % (Auto) 26.3, [place] % (Auto) 10.8 H, Eos % (Auto) 7.9 H, Baso % (Auto) 1.0, Absolute Neuts (auto) 4.3, Absolute Lymphs (auto) 2.14, Nucleated RBC % 0, Random Vancomycin 29.6 H 03/25/24 12:33: POC Glucose 153 H Micro: Microbiology 03/22/24 02:01 Blood Culture (Wb) - Neck Blood Culture - Preliminary Staphylococcus capitis 03/22/24 08:00 Wound Abcess - Ischium Gram Stain - Final 03/22/24 08:00 Wound Abcess - Ischium Wound Culture - Preliminary Pseudomonas aeruginosa Acinetobacter baumannii Escherichia coli 03/22/24 08:00 Wound Abcess - Ischium Anaerobic Culture - Preliminary Checking for anaerobes, further studies to follow. 03/22/24 02:02 Urine Catheter - [facility]st Urine Culture - Preliminary Pseudomonas aeruginosa Escherichia coli
[2024-03-25] MEDS: Insulin Glargine-YFGN 100 UNIT/ML Pen 7 UNIT SC (17:47)
[2024-03-25 18:20] LABS: Bedside Glucose 140 mg/dL (74-106)
--- NOTE | 2024-03-25 19:00 | NURSING ---
emergency documentation in effect since 03/25/2024, 1900
--- NOTE | 2024-03-25 19:22 | PCM.CONS.U ---
HPI Consult Data Date of Consult: 03/25/24 HPI Narrative Reason for Consultation: SP tube and blood HPI Narrative: JABARI GUILLEN, is a 38 M who present to hospital with confusion, multiple medical issues had SP with bloody pus draining, tried to flush but would not flush, SP tube removed and New SP tube place in track immediately a whole bunch of purulent urine drain from his bladder then flushed it till clear and urine now clear, I think he had an obstructed SP tube and UTI with purulent urine, new SP tube in place draining clear. No other intervention needed, cT scan reviewed looked okay. [facility] Medical History Hyperkalemia Pneumonia Anemia in chronic kidney disease, on chronic dialysis senior care (current) use of 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 H/O deep venous thrombosis Osteomyelitis of pelvic region Lives in intermediate Anxiety Open wound Insulin dependent diabetes mellitus Uses wheelchair Injury of back Community acquired MRSA infection Non-healing wound of amputation stump DM type 2, goal HbA1c < 7% 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, stage 4 Hypomagnesemia Hyperosmolality and hypernatremia Neurogenic bowel Pericardial effusion (noninflammatory) SIRS (systemic inflammatory response syndrome) Pyrexia Chronic kidney disease with end stage renal failure on dialysis Kidney transplant failure Dependence on renal dialysis Pressure ulcer of left heel, unspecified stage Gastro-esophageal reflux disease without esophagitis Acute on chronic systolic (congestive) heart failure Other pericardial effusion (noninflammatory) Other pulmonary embolism without acute cor pulmonale Hypertensive heart and chronic kidney disease with heart failure and stage 1 through stage 4 chronic kidney disease, or unspecified chronic kidney disease Depression Hyperlipemia Hypothyroidism Anemia in chronic kidney disease Neuromuscular dysfunction of bladder, unspecified Paraplegia, incomplete Other acute osteomyelitis, left ankle and foot End stage renal disease Acute pulmonary edema Acute respiratory failure with hypoxia Home Medications ?Medication ?Instructions ?Recorded ?Last Taken ?Type acetaminophen 325 mg tablet 650 mg PO Q4H PRN PAIN/FEVER 01/02/23 04/21/23 History apixaban 5 mg tablet (Eliquis) 5 mg PO BID blood thinner 01/02/23 07/16/23 History ascorbic acid (vitamin C) 500 mg 500 mg PO QHS supplement 01/02/23 12/08/23 History tablet atorvastatin 40 mg tablet 40 mg PO QHS hypercholestremia 01/02/23 12/08/23 History bisacodyl 10 mg rectal suppository 10 mg [place] DAILY PRN Constipation 01/02/23 Unknown History carvedilol 12.5 mg tablet 12.5 mg PO Q12H HYPERTENSION 01/02/23 12/09/23 History clotrimazole-betamethasone 1 1 applic topical QHS rash 01/02/23 07/15/23 History %-0.05 % topical cream dextrose 40 % oral gel (Glucose 15 g PO Q15M PRN Hypoglycemia 01/02/23 Unknown History Gel) hydralazine 25 mg tablet 50 mg PO Q8 hypertension 01/02/23 12/09/23 History insulin glargine 100 unit/mL (3 11 unit subcut 1700 diabetes 01/02/23 12/08/23 History mL) subcutaneous pen (Lantus Solostar U-100 Insulin) insulin lispro 100 unit/mL 6 unit subcut QHS diabetes 01/02/23 07/16/23 History subcutaneous pen (Humalog KwikPen (U-100) Insulin) midodrine 10 mg tablet 10 mg PO MOTUTHFR DIALYSIS 01/02/23 12/09/23 History ondansetron HCl 4 mg tablet 4 mg PO Q8H PRN PRN Nausea 01/02/23 Unknown History pantoprazole 40 mg tablet,delayed 40 mg PO DAILY gerd 01/02/23 12/08/23 History release polyethylene glycol 3350 17 gram 17 g PO DAILY PRN constipation 01/02/23 Unknown History oral powder packet promethazine 12.5 mg tablet 12.5 mg PO Q8H PRN Nausea 01/02/23 07/15/23 History sennosides 8.6 mg-docusate sodium 1 tab-cap PO BID Constipation 01/02/23 07/16/23 History 50 mg capsule (Senna Plus) tacrolimus 1 mg capsule, 2 mg PO Q12H immunosuppressive 01/02/23 12/09/23 History immediate-release (Prograf) trazodone 50 mg tablet 50 mg PO QHS insomnia 01/02/23 12/08/23 History gabapentin 100 mg capsule 200 mg PO BID PHANTOM PAIN 04/21/23 12/09/23 History sevelamer HCl 800 mg tablet 2,400 mg PO TIDCM ESRD 04/21/23 07/16/23 History levothyroxine 150 mcg tablet 150 mcg PO DAILY@0600 07/16/23 12/09/23 History hypothyroidism oxycodone 10 mg tablet 10 mg PO Q4H PRN pain 2 days #12 07/19/23 Unknown Rx tabs acetaminophen 650 mg rectal 650 mg AZ Q4H PRN fever or pain 08/06/23 Unknown History suppository glucagon 1 mg injection kit 1 mg subcut X1 PRN hypoglycemia 08/06/23 Unknown History magnesium hydroxide 400 mg/5 mL 30 ml PO DAILY PRN constipation 08/06/23 Unknown History oral suspension (Milk of Magnesia) ciclopirox 8 % topical solution 1 applic topical QHS nail fungus 11/17/23 Unknown History insulin lispro 100 unit/mL 9 unit subcut DAILY diabetes 11/17/23 Unknown History subcutaneous pen (Humalog KwikPen (U-100) Insulin) diphenhydramine-zinc acetate 2 1 applic topical Q6H PRN PRN 12/06/23 Unknown History %-0.1 % topical cream (Benadryl itching Extra Strength) escitalopram oxalate 10 mg tablet 15 mg PO QHS depression 12/30/23 Unknown History (Lexapro) vancomycin 1 gram/200 mL in 0.9 % 1 g (200 mL) IV .see below 16 days 01/02/24 Unknown Rx sod. chloride intravenous piggyback insulin lispro 100 unit/mL See Protocol subcut TIDCM 03/22/24 Unknown History subcutaneous pen insulin lispro 100 unit/mL 11 unit subcut DAILY@1700 03/22/24 Unknown History subcutaneous solution vitamin B complex-vitamin C-folic 1 tab PO DAILY 03/22/24 Unknown History acid 0.8 mg tablet Allergy/AdvReac Type Severity Reaction Status Date / Time No Known Allergies Allergy Verified 02/18/24 04:45 Family History Mother Hypertension Diabetes Father Hypertension Diabetes Surgical History History of kidney transplant S/P unilateral above knee amputation S/P foot surgery S/P colostomy Social History housing: intermediate Smoking Status: Never smoker alcohol intake: never substance use type: does not use Lab / Micro Data 03/25/24 06:20 03/24/24 03:50 Labs: Laboratory Results - last 24 hr 03/25/24 06:20: WBC 8.1, RBC 3.09 L, Hgb 8.4 L, Hct 27.8 L, MCV 90.0, MCH 27.2, MCHC 30.2 L, RDW Std Deviation 60.0 H, RDW Coeff of Shanta 18.3 H, Plt Count 172, MPV 10.2, Immature Gran % (Auto) 0.600, Neut % (Auto) 53.4, Lymph % (Auto) 26.3, [place] % (Auto) 10.8 H, Eos % (Auto) 7.9 H, Baso % (Auto) 1.0, Absolute Neuts (auto) 4.3, Absolute Lymphs (auto) 2.14, Nucleated RBC % 0, Random Vancomycin 29.6 H 03/25/24 12:33: POC Glucose 153 H 03/25/24 17:42: POC Glucose 140 H Micro: Microbiology 03/22/24 02:01 Blood Culture (Wb) - Neck Blood Culture - Preliminary Staphylococcus capitis 03/22/24 08:00 Wound Abcess - Ischium Gram Stain - Final 03/22/24 08:00 Wound Abcess - Ischium Wound Culture - Preliminary Pseudomonas aeruginosa Acinetobacter baumannii Escherichia coli 03/22/24 08:00 Wound Abcess - Ischium Anaerobic Culture - Preliminary Checking for anaerobes, further studies to follow. 03/22/24 02:02 Urine Catheter - Hurst Urine Culture - Preliminary Pseudomonas aeruginosa Escherichia coli
[2024-03-25] MEDS: Escitalopram Oxalate 10 MG Tablet 15 MG PO (22:01)
[2024-03-25] MEDS: Meropenem 500 MG in 0.9% Normal Saline (50mL MB+) 50 ML 100 MG IV (22:02)
[2024-03-25] MEDS: Clotrimazole/Betamethasone 1 Tube 1 APPLIC TOPICAL (22:04)
[2024-03-25] MEDS: Atorvastatin Calcium 40 MG Tablet PO (22:05)
[2024-03-25] MEDS: traZODone 50 MG Tablet PO (23:06)
[2024-03-25] MEDS: Ciprofloxacin 400 MG/200 ML BAG 200 MG IV (23:31)
[2024-03-25] MEDS: Acetaminophen 325 MG Tablet 650 MG PO (23:37)
[2024-03-25] MEDS: hydrALAZINE 20 MG/ML Vial 10 MG IV (23:54)
[2024-03-26] VITALS (15 sets, daily range): BP systolic 152–199; BP diastolic 60–117; PULSE 64–107; RESP 14–18; TEMP 36.2–37; O2SAT 94–100; BMI 40.0
[2024-03-26 00:31] LABS: Bedside Glucose 174 mg/dL (74-106)
[2024-03-26 01:07] LABS: Tacrolimus (FK506) 0.7 ng/mL (2.0-20.0)
[2024-03-26] MEDS: Labetalol (Prefilled) 20 MG/4 ML IV ×2 (01:54→11:33)
[2024-03-26] MEDS: 0.9% Saline Lock 10 ML Syringe IV ×4 (02:02→21:01)
[2024-03-26] MEDS: hydrALAZINE 20 MG/ML Vial 10 MG IV (04:19)
[2024-03-26] MEDS: hydrALAZINE 25 MG Tablet 75 MG PO ×3 (06:29→21:00)
[2024-03-26] MEDS: Levothyroxine 150 MCG Tablet PO (06:29)
--- NOTE | 2024-03-26 09:35 | MDS.RN ---
Staff nurse notified of BP 190/112
[2024-03-26] MEDS: Carvedilol 12.5 MG Tablet PO ×2 (11:13→16:38)
[2024-03-26] MEDS: SEVELAMER CARBONATE 800 MG TABLET 2400 MG PO ×2 (11:14→16:31)
[2024-03-26] MEDS: Tacrolimus Anhydrous 1 MG Capsule PO ×2 (11:14→20:55)
[2024-03-26] MEDS: DAKIN'S SOL HALF STRENGTH (=0.25%) TOPICAL ×2 (11:14→21:05)
[2024-03-26] MEDS: APIXABAN 5 MG TABLET PO ×2 (11:14→21:01)
[2024-03-26] MEDS: Pantoprazole Sodium 40 MG Tablet PO (11:15)
[2024-03-26] MEDS: Senna/Docusate Sodium 1 Tablet PO ×3 (11:15→21:01)
[2024-03-26] MEDS: Vitamin B Comp W-C Capsule 1 CAP PO (11:29)
[2024-03-26 12:18] LABS: Bedside Glucose 151 mg/dL (74-106)
--- NOTE | 2024-03-26 15:24 | PN_ITS ---
Subjective Subjective Patient seen and examined. He had no complaints. Per his nurse he had been a bit agitated this morning. Patient tells me that his upscale security officer called [employer] came in and have asked him over a girl. He is not able to give me any more details about it. He does appear he may have been confused at that time. Review of systems otherwise negative. ID on board due to concerns for ischial osteomyelitis. Objective Data Objective Data Vital Signs: Vital Signs Temp Pulse Resp BP Pulse Ox O2 Del Method O2 Flow Rate 98 F 97 16 178/72 H 97 Nasal Cannula 2 03/26/24 11:32 03/26/24 11:32 03/26/24 11:32 03/26/24 11:32 03/26/24 11:32 03/26/24 11:35 03/26/24 11:35 Oxygen Flow Rate (L/min) 2 Oxygen Delivery Method Nasal Cannula Weight: 295 lb 6.711 oz Body Mass Index (BMI) 40.0 Intake & Output: Intake and Output for Last 24 Hours 03/24/24 03/25/24 03/26/24 23:59 23:59 23:59 Intake Total 1080.00 / 1080.00 950 / 950 710 / 710 Output Total 0 / 0 2520 / 2520 150 / 150 Balance 1080.00 / 1080.00 -1570 / -1570 560 / 560 Lab / Micro Data 03/25/24 06:20 03/24/24 03:50 Labs: Laboratory Results - last 24 hr 03/22/24 01:35: Tacrolimus 0.7 L 03/25/24 17:42: POC Glucose 140 H 03/25/24 22:07: POC Glucose 174 H 03/26/24 11:49: POC Glucose 151 H Micro: Microbiology 03/22/24 08:00 Wound Abcess - Ischium Gram Stain - Final 03/22/24 08:00 Wound Abcess - Ischium Wound Culture - Preliminary Pseudomonas aeruginosa Acinetobacter baumannii ESBL Escherichia coli 03/22/24 08:00 Wound Abcess - Ischium Anaerobic Culture - Preliminary Checking for anaerobes, further studies to follow. 03/22/24 02:02 Urine Catheter - Hurst Urine Culture - Preliminary Pseudomonas aeruginosa Escherichia coli 03/22/24 02:01 Blood Culture (Wb) - Neck Blood Culture - Preliminary Staphylococcus capitis 03/22/24 02:03 Mucosa - Nose SARS-CoV-2, Influenza & RSV (PCR) - Final Physical Exam Const alert, oriented x3 and no apparent distress Orientation / Consciousness: confused and lethargic HEENT normocephalic, head/scalp atraumatic, hearing grossly normal bilaterally and moist oral mucous membranes Eyes PERRL and EOMs intact bilaterally Neck no lymphadenopathy and supple Lymph Lymphatic: no lymphadenopathy noted Resp normal respiratory effort, no retractions, no use of accessory muscles and clear to auscultation bilaterally Resp Narrative: mildly diminished breath sounds bibasally, no wheezes or crackles. On room air. Cardio regular rate, regular rhythm, S1 normal heart sound, S2 normal heart sound and no murmurs GI normal to inspection, nondistended, normoactive bowel sounds, soft to palpation, non-tender and non-distended GI Narrative: Morbidly obese. Extremity normal capillary refill, no clubbing, cyanosis or edema and no calf tenderness Extremity Narrative: AV fistula in LUE. Undergoing dialysis. Left BKA. Right foot bandaged. Skin Skin Narrative: Patient has numerous scabs over the skin of his face. General Skin Exam: no breakdown Neuro CN's II-XII intact bilaterally, moves all extremities and no focal motor deficits Neuro Narrative: l Motor Exam: general weakness Psych Psych Narrative: flat affect Appearance: appropriate Assessment & Plan Assessment/Plan (1) Left ischial pressure sore: (2) Hypertensive emergency: PLAN: Plan #Hypertensive emergency * Blood pressures improved. On carvedilol and hydralazine. Midodrine held. IV hydralazine as needed. #Hematuria: * Still having some hematuria per Hurst catheter. * Eliquis on hold. CT abdomen and pelvis showed bladder wall thickening consistent with cystitis. * He is also being treated for UTI. * He does have a suprapubic catheter in place. * still having persistent hematuria, so urology consulted. Urology reviewed him and new suprapubic catheter was inserted. There was drainage of purulent urine. Per urology, no need for any surgical intervention. #Probable catheter associated UTI * Urinalysis does not really show evidence of UTI but CT scan showed bladder wall thickening consistent with cystitis. On IV Zosyn. He does have a suprapubic catheter in place. * Urine cultures growing Pseudomonas and E coli. * antibiotics changed per ID to IV vancomycin, meropenem and ciprofloxacin #Sacral decubitus ulcer concerning for osteomyelitis * Present on admission. Plastic surgery o board. CT scan showed a large ulcer overlying the left ischial tuberosity with findings consistent with osteomyelitis. * on IV zosyn * wound culturs growing Pseudomonas, Acinetobacter and ESBL E coli * per plastics, there is a possibility the abscess rained digitally during plastic surgery evaluation * ID consulted. On IV vancomycin, meropenem and ciprofloxacin * blood cultures growing Staph capitis * will reach out to plastic surgery to see if there will be any surgery * #Acute encephalopathy * resolved. Patient alert and communicative today. * continue to hold gabapentin and all nephrotoxic meds * #Hyperkalemia: resolved with dialysis #ESRD: * Also has history of kidney transplantation and is on tacrolimus on dialysis Wednesdays and Fridays. * Currently on dialysis. * Nephrology on board. * #History of T5-T6 injury with resultant paraplegia * PT.OT On board. uses a wheelchair * has a neurogenic blader with suprapubic catheter in situ and is also s/p colostomy * #History of DVT and PE: On Eliquis. This currently on hold due to hematuria #Hyperlipidemia: On statin #Hypothyroidism: On Synthroid #Type 2 diabetes mellitus: On Lantus 17 units daily. Insulin sliding scale. Accu-Cheks ACHS. #Depression: On escitalopram but this has been held due to encephalopathy DVT prophylaxis: SCDs. resume eliquis Charges/Coding Visit Charges Inpatient E&M: 72361 Subs Hosp L3
--- NOTE | 2024-03-26 15:35 | PCM.PN.ID ---
Physical Exam Narrative Feeling ok today, no fever, no n/v/d. Const alert and no apparent distress General Appearance: cooperative Resp normal air movement and clear to auscultation bilaterally Cardio regular rate and regular rhythm GI soft to palpation, non-tender and non-distended Extremity General Extremity: edema Skin Skin Narrative: no new rash ID ID: Route of nutrition/ use of supplements: [] Nutritional Intake: [] IV Site: [] Hurst Catheter: [] Assessment & Plan Assessment/Plan (1) Abscess: PLAN: concern for ischial osteo on imaging. Surgery following. Bcx with CoNS. Ucx with PsA, GNR. Wound cx with AcB, PsA, esbl ecoli. Cont vanc/lupe/cipro to cover new cx results. Outpt dosing will be difficult given his ESRD, resistant organisms, and need for 6 week course. Will follow (2) ESRD (end stage renal disease) on dialysis: (3) Paraplegia:
--- NOTE | 2024-03-26 15:53 | PN.RENAL_ITS ---
Subjective Subjective No new events Objective Data Objective Data Vital Signs: Vital Signs Temp Pulse Resp BP Pulse Ox O2 Del Method O2 Flow Rate 98 F 97 16 178/72 H 97 Nasal Cannula 2 03/26/24 11:32 03/26/24 11:32 03/26/24 11:32 03/26/24 11:32 03/26/24 11:32 03/26/24 11:35 03/26/24 11:35 Oxygen Flow Rate (L/min) 2 Oxygen Delivery Method Nasal Cannula Weight: 134 kg Body Mass Index (BMI) 40.0 Intake & Output: Intake and Output for Last 24 Hours 03/24/24 03/25/24 03/26/24 23:59 23:59 23:59 Intake Total 1080.00 / 1080.00 950 / 950 710 / 710 Output Total 0 / 0 2520 / 2520 150 / 150 Balance 1080.00 / 1080.00 -1570 / -1570 560 / 560 Lab / Micro Data 03/25/24 06:20 03/24/24 03:50 Labs: Laboratory Results - last 24 hr 03/22/24 01:35: Tacrolimus 0.7 L 03/25/24 17:42: POC Glucose 140 H 03/25/24 22:07: POC Glucose 174 H 03/26/24 11:49: POC Glucose 151 H Micro: Microbiology 03/22/24 08:00 Wound Abcess - Ischium Gram Stain - Final 03/22/24 08:00 Wound Abcess - Ischium Wound Culture - Preliminary Pseudomonas aeruginosa Acinetobacter baumannii ESBL Escherichia coli 03/22/24 08:00 Wound Abcess - Ischium Anaerobic Culture - Preliminary Checking for anaerobes, further studies to follow. 03/22/24 02:02 Urine Catheter - [place]o Urine Culture - Preliminary Pseudomonas aeruginosa Escherichia coli 03/22/24 02:01 Blood Culture (Wb) - Neck Blood Culture - Preliminary Staphylococcus capitis 03/22/24 02:03 Mucosa - Nose SARS-CoV-2, Influenza & RSV (PCR) - Final Physical Exam Narrative Alert and oriented, no apparent distress S1, S2 RRR Lung sounds clear abdomen soft, + colostomy No edema suprapubic cano AV fistula +thrill and bruit Assessment & Plan Assessment/Plan (1) ESRD (end stage renal disease) on dialysis: (2) Hyperkalemia: (3) Acute alteration in mental status: (4) UTI (urinary tract infection): PLAN: Plan This is a 38-year-old male with past medical history significant for ESRD on hemodialysis at [facility] followed by Dr. Granda, receives dialysis on a Saturday, Saturday, , Saturday schedule, who was admitted to the hospital for altered mental status changes, acute cystitis and hyperkalemia. Nephrology consulted as patient has history of ESRD and dialysis management. We will maintain dialysis schedule of Saturday while patient is in the hospital. On antibiotics for UTI, pneumonia and decubitus ulcer. Overall blood pressures improved, discussed with staff. Possible discharge today..
[2024-03-26] MEDS: Insulin Glargine-YFGN 100 UNIT/ML Pen 7 UNIT SC (16:41)
[2024-03-26 17:23] LABS: Bedside Glucose 154 mg/dL (74-106)
[2024-03-26] MEDS: Meropenem 500 MG in 0.9% Normal Saline (50mL MB+) 50 ML 100 MG IV (20:57)
[2024-03-26] MEDS: Escitalopram Oxalate 10 MG Tablet 15 MG PO (20:58)
[2024-03-26] MEDS: Atorvastatin Calcium 40 MG Tablet PO (20:59)
[2024-03-26] MEDS: traZODone 50 MG Tablet PO (20:59)
[2024-03-26] MEDS: Ascorbic Acid 500 MG Tablet PO (21:01)
[2024-03-26] MEDS: Clotrimazole/Betamethasone 1 Tube 1 APPLIC TOPICAL (21:05)
[2024-03-26] MEDS: Ciprofloxacin 400 MG/200 ML BAG 200 MG IV (22:02)
[2024-03-26 23:52] LABS: Bedside Glucose 172 mg/dL (74-106)
[2024-03-27] VITALS (16 sets, daily range): BP systolic 116–345; BP diastolic 55–109; PULSE 69–110; RESP 14–18; TEMP 36.1–36.9; O2SAT 94–99; BMI 40.0; BMI 39.4
[2024-03-27] MEDS: 0.9% Saline Lock 10 ML Syringe IV ×2 (03:07→13:33)
[2024-03-27] MEDS: Labetalol (Prefilled) 20 MG/4 ML IV (03:07)
[2024-03-27] MEDS: Levothyroxine 150 MCG Tablet PO (05:09)
[2024-03-27] MEDS: hydrALAZINE 25 MG Tablet 75 MG PO ×2 (05:09→14:51)
[2024-03-27 06:18] LABS: Absolute Lymphocyte Count 2.44 X10^3/uL (0.83-4.51); Absolute Neutrophil Count 6.9 X10^3/uL (2.0-7.7); Basophil# 0.08 X10^3/uL; Basophil% 0.7 % (0-1); Eosinophils% 3.7 % (0-5); Hematocrit 30.6 % (40-54); Hemoglobin 9.3 g/dL (13.0-16.5); Lymphocyte # 2.44 X10^3/ul (0.83-4.51); Lymphocyte % 22.5 % (19-41); Mean Corp Hgb Conc 30.4 g/dL (32-36); Mean Platelet Vol. 10.6 fl (6.2-12.0); Monocyte# 0.93 X10^3/uL; Monocyte% 8.6 % (0-10); NRBC Flagged by Analyzer 0 % (0-5); Neutrophil # 6.92 X10^3/uL (2.7-7.7); Neutrophil % 63.7 % (47-70); Platelet Count 179 K/mm3 (150-450); RBC Distribution Width CV 18.2 % (11.6-14.6); Red Blood Count 3.44 M/mm3 (4.6-6.2); White Blood Count 10.9 K/mm3 (4.4-11.0)
[2024-03-27 06:53] LABS: Vancomycin, Random Level 26.4 ug/mL (0.0-15.0)
--- NOTE | 2024-03-27 07:32 | PCM.RX.CS ---
Consult Antibiotic Management Pharmacy has been consulted to manage selected antibiotic: Vancomycin Type of Intervention Type of Consult: Follow-up Suspected Infection Suspected Infection: Other (CYSTITIS/EMPIRID) Prior Doses of Antibiotics Prior Doses of Antibiotics Received/Current Regimen: Vancomycin 1000 mg IV x 1 post dialysis given 03/23/24 @ 1533 Labs Labs: Sodium 137 mmol/L (136-145) 03/24/24 03:50 Potassium 4.1 mmol/L (3.5-5.1) 03/24/24 03:50 Chloride 100 mmol/L (98-107) 03/24/24 03:50 Carbon Dioxide 29.0 mmol/L (21.0-32.0) 03/24/24 03:50 Anion Gap 8 (5-15) 03/24/24 03:50 BUN 51 mg/dL (7-18) H 03/24/24 03:50 Creatinine 7.71 mg/dL (0.70-1.30) H* 03/24/24 03:50 Est GFR (MDRD) Af Amer 10 mL/min (>60) L 03/24/24 03:50 Est GFR (MDRD) Non-Af 9 mL/min (>60) L 03/24/24 03:50 BUN/Creatinine Ratio 6.6 RATIO (10-20) L 03/24/24 03:50 Glucose 130 mg/dL (74-106) H 03/24/24 03:50 Random Vancomycin 26.4 ug/mL (0.0-15.0) H 03/27/24 06:08 Microbiology Microbiology: Microbiology 03/22/24 02:01 Blood Culture (Wb) - Neck Blood Culture - Final Staphylococcus capitis 03/22/24 08:00 Wound Abcess - Ischium Gram Stain - Final 03/22/24 08:00 Wound Abcess - Ischium Wound Culture - Preliminary Pseudomonas aeruginosa Acinetobacter baumannii ESBL Escherichia coli 03/22/24 08:00 Wound Abcess - Ischium Anaerobic Culture - Preliminary Checking for anaerobes, further studies to follow. 03/22/24 02:02 Urine Catheter - Hurst Urine Culture - Preliminary Pseudomonas aeruginosa Escherichia coli 03/22/24 02:03 Mucosa - Nose SARS-CoV-2, Influenza & RSV (PCR) - Final Dosing Weight Weight used for dosin kg Estimated Creatinine Clearance Estimated Creatinine Clearance: ESRD on HD Goal Trough Goal Trough: 15-20 mcg/mL Pharmacy Plan for Drug Dosing Pharmacy Plan for Drug Dosing: Vancomycin random level = 26.4, hold vancomycin after dialysis today, random level prior to next scheduled HD session (tentatively [facility] schedule so Saturday). Pharmacy Service will continue to monitor and adjust dosing as required. Follow-Up Labs Follow-Up Labs: Trough: Vancomycin Date/Time Labs Ordered Labs to be done on [date and time ordered]: 03/30/24 @ 0600
[2024-03-27 08:45] LABS: Anion Gap 15 (5-15); BUN 48 mg/dL (7-18); BUN/Creat Ratio 4.9 RATIO (10-20); Calcium,Total 9.3 mg/dL (8.5-10.1); Chloride 99 mmol/L (98-107); Creatinine, Serum 9.76 mg/dL (0.70-1.30); EST Glomerular Filtration Rate 7 mL/min (>60); Est Glom Filt Rate - Afr Amer 8 mL/min (>60); Estimated Creatinine Clearance 14.82 ml/min; Glucose 141 mg/dL (74-106); Potassium 4.7 mmol/L (3.5-5.1); Sodium Level 136 mmol/L (136-145)
[2024-03-27] MEDS: DAKIN'S SOL HALF STRENGTH (=0.25%) TOPICAL (09:37)
[2024-03-27 11:39] LABS: Bedside Glucose 162 mg/dL (74-106)
--- NOTE | 2024-03-27 12:47 | PCM.PROGNOTE ---
Subjective Subjective Patient seen and examined. He had no complaints and had an uneventful night. Review of systems otherwise negative. He has been hemodynamically stable. I did reach out to plastic surgery today and they have no plans for any surgical intervention. Objective Data Objective Data Vital Signs: Vital Signs Temp Pulse Resp BP Pulse Ox O2 Del Method O2 Flow Rate 96.9 F L 109 H 16 158/75 H 98 Room Air 2 03/27/24 10:55 03/27/24 12:30 03/27/24 12:30 03/27/24 12:30 03/27/24 12:30 03/27/24 12:30 03/27/24 10:18 Oxygen Flow Rate (L/min) 2 Oxygen Delivery Method Room Air Weight: 295 lb 6.711 oz Body Mass Index (BMI) 40.0 Intake & Output: Intake and Output for Last 24 Hours 03/25/24 03/26/24 03/27/24 23:59 23:59 23:59 Intake Total 950 / 950 1590 / 1590 240 / 240 Output Total 2520 / 2520 150 / 150 Balance -1570 / -1570 1440 / 1440 240 / 240 Lab / Micro Data 03/27/24 06:08 03/27/24 06:08 Labs: Laboratory Results - last 24 hr 03/26/24 16:40: POC Glucose 154 H 03/26/24 20:53: POC Glucose 172 H 03/27/24 06:08: WBC 10.9, RBC 3.44 L, Hgb 9.3 L, Hct 30.6 L, MCV 89.0, MCH 27.0, MCHC 30.4 L, RDW Std Deviation 59.0 H, RDW Coeff of Shanta 18.2 H, Plt Count 179, MPV 10.6, Immature Gran % (Auto) 0.800, Neut % (Auto) 63.7, Lymph % (Auto) 22.5, [place] % (Auto) 8.6, Eos % (Auto) 3.7, Baso % (Auto) 0.7, Absolute Neuts (auto) 6.9, Absolute Lymphs (auto) 2.44, Nucleated RBC % 0, Sodium 136, Potassium 4.7, Chloride 99, Carbon Dioxide 22.0, Anion Gap 15, BUN 48 H, Creatinine 9.76 H*, Estim Creat Clear Calc 14.82, Est GFR (MDRD) Af Amer 8 L, Est GFR (MDRD) Non-Af 7 L, BUN/Creatinine Ratio 4.9 L, Glucose 141 H, Calcium 9.3, Random Vancomycin 26.4 H 03/27/24 11:08: POC Glucose 162 H Micro: Microbiology 03/22/24 08:00 Wound Abcess - Ischium Gram Stain - Final 03/22/24 08:00 Wound Abcess - Ischium Wound Culture - Final Pseudomonas aeruginosa Acinetobacter baumannii ESBL Escherichia coli 03/22/24 08:00 Wound Abcess - Ischium Anaerobic Culture - Final No anaerobic bacteria isolated. 03/22/24 02:02 Urine Catheter - Hurst Urine Culture - Preliminary Pseudomonas aeruginosa Escherichia coli Gram negative polo 03/22/24 02:01 Blood Culture (Wb) - Neck Blood Culture - Final Staphylococcus capitis 03/22/24 02:03 Mucosa - Nose SARS-CoV-2, Influenza & RSV (PCR) - Final Physical Exam Const alert, oriented x3 and no apparent distress Constitutional Narrative: HEENT normocephalic, head/scalp atraumatic, hearing grossly normal bilaterally and moist oral mucous membranes Eyes PERRL and EOMs intact bilaterally Neck no lymphadenopathy and supple Lymph Lymphatic: no lymphadenopathy noted Resp normal respiratory effort, no retractions, no use of accessory muscles and clear to auscultation bilaterally Resp Narrative: mildly diminished breath sounds bibasally, no wheezes or crackles. On room air. Cardio regular rate, regular rhythm, S1 normal heart sound, S2 normal heart sound and no murmurs Rate: tachycardic GI normal to inspection, nondistended, normoactive bowel sounds, soft to palpation, non-tender and non-distended GI Narrative: Morbidly obese. Colostomy bag in situ Extremity normal capillary refill, no clubbing, cyanosis or edema and no calf tenderness Extremity Narrative: AV fistula in LUE. Undergoing dialysis. Left BKA. Right foot bandaged. Skin Skin Narrative: Patient has numerous scabs over the skin of his face. General Skin Exam: no breakdown Neuro CN's II-XII intact bilaterally, moves all extremities and no focal motor deficits Neuro Narrative: l Motor Exam: general weakness Psych thought process normal Psych Narrative: flat affect Appearance: appropriate Assessment & Plan Assessment/Plan (1) Left ischial pressure sore: (2) Hypertensive emergency: PLAN: Plan #Hypertensive emergency Blood pressures improved. On carvedilol and hydralazine. Midodrine held. IV hydralazine as needed. #Hematuria: resolved after suprapubic catheter was dc'd Eliquis on hold. CT abdomen and pelvis showed bladder wall thickening consistent with cystitis. He is also being treated for UTI. He does have a suprapubic catheter in place. Urology reviewed him and new suprapubic catheter was inserted. There was drainage of purulent urine. Per urology, no need for any surgical intervention. #Probable catheter associated UTI Urinalysis does not really show evidence of UTI but CT scan showed bladder wall thickening consistent with cystitis. On IV Zosyn. He does have a suprapubic catheter in place. Urine cultures growing Pseudomonas and E coli. antibiotics changed per ID to IV vancomycin, meropenem and ciprofloxacin #Sacral decubitus ulcer concerning for osteomyelitis Present on admission. Plastic surgery o board. CT scan showed a large ulcer overlying the left ischial tuberosity with findings consistent with osteomyelitis. on IV zosyn wound culturs growing Pseudomonas, Acinetobacter and ESBL E coli per plastics, there is a possibility the abscess rained digitally during plastic surgery evaluation ID consulted. On IV vancomycin, meropenem and ciprofloxacin blood cultures growing Staph capitis discussed with Dr. Larios of plastic surgery today. No plans for surgical intervention during this admission. He is to follow-up with the wound care center for wound VAC to be placed. #Acute encephalopathy resolved. Patient alert and communicative today. continue to hold gabapentin and all nephrotoxic meds #Hyperkalemia: resolved with dialysis #ESRD: Also has history of kidney transplantation and is on tacrolimus on dialysis Wednesdays and Fridays. Currently on dialysis. Nephrology on board. #History of T5-T6 injury with resultant paraplegia PT.OT On board. uses a wheelchair has a neurogenic blader with suprapubic catheter in situ and is also s/p colostomy #History of DVT and PE: On Eliquis. This currently on hold due to hematuria #Hyperlipidemia: On statin #Hypothyroidism: On Synthroid #Type 2 diabetes mellitus: On Lantus 17 units daily. Insulin sliding scale. Accu-Cheks ACHS. #Depression: On escitalopram but this has been held due to encephalopathy DVT prophylaxis:on eliquis. [facility] decides what antibiotics he can be discharged on. Charges/Coding Visit Charges Inpatient E&M: 09919 Subs Hosp L2
[2024-03-27] MEDS: PureFlow B 2K Dialysis Soln 1 BAG 6 BAG PF (13:33)
[2024-03-27] MEDS: 0.9% Normal Saline 1,000 ML IV.SOLN. 1000 ML OPERA.SITE (13:33)
--- NOTE | 2024-03-27 13:36 | PN.RENAL_ITS ---
Subjective Subjective Seen on dialysis today. Possible discharge today. Objective Data Objective Data Vital Signs: Vital Signs Temp Pulse Resp BP Pulse Ox O2 Del Method O2 Flow Rate 96.9 F L 110 H 16 172/93 H 99 Room Air 2 03/27/24 10:55 03/27/24 13:31 03/27/24 13:31 03/27/24 13:31 03/27/24 13:31 03/27/24 13:31 03/27/24 10:18 Oxygen Flow Rate (L/min) 2 Oxygen Delivery Method Room Air Weight: 134 kg Body Mass Index (BMI) 40.0 Intake & Output: Intake and Output for Last 24 Hours 03/25/24 03/26/24 03/27/24 23:59 23:59 23:59 Intake Total 950 / 950 1590 / 1590 240 / 240 Output Total 2520 / 2520 150 / 150 Balance -1570 / -1570 1440 / 1440 240 / 240 Lab / Micro Data 03/27/24 06:08 03/27/24 06:08 Labs: Laboratory Results - last 24 hr 03/26/24 16:40: POC Glucose 154 H 03/26/24 20:53: POC Glucose 172 H 03/27/24 06:08: WBC 10.9, RBC 3.44 L, Hgb 9.3 L, Hct 30.6 L, MCV 89.0, MCH 27.0, MCHC 30.4 L, RDW Std Deviation 59.0 H, RDW Coeff of Shanta 18.2 H, Plt Count 179, MPV 10.6, Immature Gran % (Auto) 0.800, Neut % (Auto) 63.7, Lymph % (Auto) 22.5, [place] % (Auto) 8.6, Eos % (Auto) 3.7, Baso % (Auto) 0.7, Absolute Neuts (auto) 6.9, Absolute Lymphs (auto) 2.44, Nucleated RBC % 0, Sodium 136, Potassium 4.7, Chloride 99, Carbon Dioxide 22.0, Anion Gap 15, BUN 48 H, Creatinine 9.76 H*, Estim Creat Clear Calc 14.82, Est GFR (MDRD) Af Amer 8 L, Est GFR (MDRD) Non-Af 7 L, BUN/Creatinine Ratio 4.9 L, Glucose 141 H, Calcium 9.3, Random Vancomycin 26.4 H 03/27/24 11:08: POC Glucose 162 H Micro: Microbiology 03/22/24 08:00 Wound Abcess - Ischium Gram Stain - Final 03/22/24 08:00 Wound Abcess - Ischium Wound Culture - Final Pseudomonas aeruginosa Acinetobacter baumannii ESBL Escherichia coli 03/22/24 08:00 Wound Abcess - Ischium Anaerobic Culture - Final No anaerobic bacteria isolated. 03/22/24 02:02 Urine Catheter - Cano Urine Culture - Preliminary Pseudomonas aeruginosa Escherichia coli Gram negative polo 03/22/24 02:01 Blood Culture (Wb) - Neck Blood Culture - Final Staphylococcus capitis 03/22/24 02:03 Mucosa - Nose SARS-CoV-2, Influenza & RSV (PCR) - Final Physical Exam Narrative Alert and oriented, no apparent distress S1, S2 RRR Lung sounds clear abdomen soft, + colostomy No edema suprapubic cano AV fistula +thrill and bruit Assessment & Plan Assessment/Plan (1) ESRD (end stage renal disease) on dialysis: (2) Hyperkalemia: (3) Acute alteration in mental status: (4) UTI (urinary tract infection): PLAN: Plan This is a 38-year-old male with past medical history significant for ESRD on hemodialysis at [facility] followed by Dr. Granda, receives dialysis on a Saturday, Saturday, , Saturday schedule, who was admitted to the hospital for altered mental status changes, acute cystitis and hyperkalemia. Nephrology consulted as patient has history of ESRD and dialysis management. We will maintain dialysis schedule of Saturday while patient is in the hospital. On antibiotics for UTI, pneumonia and decubitus ulcer. Overall blood pressures improved. Seen on dialysis today. No new complaints. Possible discharge [facility] today.
--- NOTE | 2024-03-27 14:37 | PHA.PHARE_ITS ---
Consult Antibiotic Management Pharmacy has been consulted to manage selected antibiotic: Tobramycin Type of Intervention Type of Consult: New start Suspected Infection Suspected Infection: Osteomyelitis and Other (CYSTITIS) Labs Labs: Sodium 136 mmol/L (136-145) 03/27/24 06:08 Potassium 4.7 mmol/L (3.5-5.1) 03/27/24 06:08 Chloride 99 mmol/L (98-107) 03/27/24 06:08 Carbon Dioxide 22.0 mmol/L (21.0-32.0) 03/27/24 06:08 Anion Gap 15 (5-15) 03/27/24 06:08 BUN 48 mg/dL (7-18) H 03/27/24 06:08 Creatinine 9.76 mg/dL (0.70-1.30) H* 03/27/24 06:08 Est GFR (MDRD) Af Amer 8 mL/min (>60) L 03/27/24 06:08 Est GFR (MDRD) Non-Af 7 mL/min (>60) L 03/27/24 06:08 BUN/Creatinine Ratio 4.9 RATIO (10-20) L 03/27/24 06:08 Glucose 141 mg/dL (74-106) H 03/27/24 06:08 Random Vancomycin 26.4 ug/mL (0.0-15.0) H 03/27/24 06:08 Microbiology Microbiology: Microbiology 03/22/24 08:00 Wound Abcess - Ischium Gram Stain - Final 03/22/24 08:00 Wound Abcess - Ischium Wound Culture - Final Pseudomonas aeruginosa Acinetobacter baumannii ESBL Escherichia coli 03/22/24 08:00 Wound Abcess - Ischium Anaerobic Culture - Final No anaerobic bacteria isolated. 03/22/24 02:02 Urine Catheter - Hurst Urine Culture - Preliminary Pseudomonas aeruginosa Escherichia coli Gram negative polo 03/22/24 02:01 Blood Culture (Wb) - Neck Blood Culture - Final Staphylococcus capitis 03/22/24 02:03 Mucosa - Nose SARS-CoV-2, Influenza & RSV (PCR) - Final Dosing Weight Weight used for dosin kg Estimated Creatinine Clearance Estimated Creatinine Clearance: on HD MWF Goal Trough Goal Trough: Other (peak concentration goal 3-5 mcg/ml) Pharmacy Plan for Drug Dosing Pharmacy Plan for Drug Dosing: Give initial loading dose of 2mg/kg today after dialysis. Dose will be 200mg IV x1 and is based on an adjusted body weight of 100kg. Per [facility] protocol for dosing tobra in HD patients, subsequent doses will be based on pre-HD tobramycin levels, the first of which will be on Saturday if the patient is still here at the hospital. Per [facility] protocol, the re-dose threshold will be <1 mcg/ml and the dose will be 1.5mg/kg if it is needed on Saturday after HD. Pharmacy Service will continue to monitor and adjust dosing as required. Follow-Up Labs Follow-Up Labs: Trough: Tobramycin (pre-HD tobra level) Date/Time Labs Ordered Labs to be done on [date and time ordered]: 03/30/24 0600
[2024-03-27] MEDS: TOBRAMYCIN IV (14:48)
[2024-03-27] MEDS: WATER IV (14:48)
[2024-03-27] MEDS: DEXTROSE 5% IV (14:48)
--- NOTE | 2024-03-27 14:50 | PN.ID_ITS ---
Physical Exam Narrative Sleeping this pm on HD. No fever. Const alert and no apparent distress ID ID: Route of nutrition/ use of supplements: [] Nutritional Intake: [] IV Site: [] Hurst Catheter: []
--- NOTE | 2024-03-27 14:50 | PCM.PN.ID ---
Physical Exam Narrative Sleeping this pm on HD. No fever. Const alert and no apparent distress Resp normal air movement and clear to auscultation bilaterally Cardio regular rate and regular rhythm GI soft to palpation, non-tender and non-distended Skin Skin Narrative: no new rash ID ID: Route of nutrition/ use of supplements: [] Nutritional Intake: [] IV Site: [] Hurst Catheter: [] Assessment & Plan Assessment/Plan (1) Abscess: PLAN: concern for ischial osteo on imaging. Surgery following. Bcx with CoNS. Ucx with PsA, GNR. Wound cx with AcB, PsA, esbl ecoli. Cont vanc/lupe/cipro to cover new cx results. Outpt dosing will be difficult given his ESRD, resistant organisms, and need for 6 week course. Will write for iv tobra 1.5mg/kg per dose (150mg based on 100kg IBW) given with HD sessions Plq-Vta-Vhml-Sat at [facility]. Will give po augmentin along with it for planned 6 week course, stop date 05/06/24, with twice weekly labs. Wrote rx, d/w case therapist. ID followup in 3 weeks. Will follow (2) ESRD (end stage renal disease) on dialysis: (3) Paraplegia:
[2024-03-27] MEDS: APIXABAN 5 MG TABLET PO (14:52)
[2024-03-27] MEDS: Vitamin B Comp W-C Capsule 1 CAP PO (14:52)
[2024-03-27] MEDS: Tacrolimus Anhydrous 1 MG Capsule PO (14:52)
[2024-03-27] MEDS: SEVELAMER CARBONATE 800 MG TABLET 2400 MG PO ×2 (14:52→18:43)
[2024-03-27] MEDS: Pantoprazole Sodium 40 MG Tablet PO (14:53)
[2024-03-27] MEDS: Carvedilol 12.5 MG Tablet PO ×2 (14:53→18:43)
[2024-03-27 15:51] LABS: Bedside Glucose 150 mg/dL (74-106)
--- NOTE | 2024-03-27 16:12 | PCM.TXEXTCAR ---
Diet Diet Order/Speech Therapy: 03/24/24 08:54 Diet: Renal - ConsCHO - Eulogio Cont Food consistency:: Easy to Chew Liquid Consistency:: Regular/Thin Dietary Modifications:: Potassium Restricted Sodium Restricted Type of Dietary Supplement:: Kalyan Diet Comments: Direct sup/Feed assist, Kalyan w/breakfast&dinner How many daily calories?: 1800 calorie Routine Orders/Code Status Enema Type: Fleetz Enema Frequency: Daily PRN Suppository Type: Dulcolax 10mg Suppository Frequency: Daily PRN O2 Frequency: PRN Keep PO Greater than or Equal to (%): 90 Wound(s) Coccyx: Wound Type: Pressure Injury Right Foot: Wound Type: Neuropathic/Diabetic Foot Ulcer left ischium: Wound Type: Pressure Injury Dressing Change: Dakins moistened gauze Therapies Weight Bearing: Weight bearing as tolerated Occupational Therapy: Eval and Treat Speech Therapy: Eval and Treat Problem/Diagnosis (1) Abscess: Status: Acute Code(s): L02.91 - Cutaneous abscess, unspecified (2) ESRD (end stage renal disease) on dialysis: Status: Acute Code(s): N18.6 - End stage renal disease; Z99.2 - Dependence on renal dialysis (3) Paraplegia: Status: Acute Code(s): G82.20 - Paraplegia, unspecified Plan #Hypertensive emergency Blood pressures improved. On carvedilol and hydralazine. Midodrine held. IV hydralazine as needed. #Hematuria: resolved after suprapubic catheter was dc'd Eliquis on hold. CT abdomen and pelvis showed bladder wall thickening consistent with cystitis. He is also being treated for UTI. He does have a suprapubic catheter in place. Urology reviewed him and new suprapubic catheter was inserted. There was drainage of purulent urine. Per urology, no need for any surgical intervention. #Probable catheter associated UTI Urinalysis does not really show evidence of UTI but CT scan showed bladder wall thickening consistent with cystitis. On IV Zosyn. He does have a suprapubic catheter in place. Urine cultures growing Pseudomonas and E coli. antibiotics changed per ID to IV vancomycin, meropenem and ciprofloxacin #Sacral decubitus ulcer concerning for osteomyelitis Present on admission. Plastic surgery o board. CT scan showed a large ulcer overlying the left ischial tuberosity with findings consistent with osteomyelitis. on IV zosyn wound culturs growing Pseudomonas, Acinetobacter and ESBL E coli per plastics, there is a possibility the abscess rained digitally during plastic surgery evaluation ID consulted. On IV vancomycin, meropenem and ciprofloxacin blood cultures growing Staph capitis discussed with Dr. Larios of plastic surgery today. No plans for surgical intervention during this admission. He is to follow-up with the wound care center for wound VAC to be placed. #Acute encephalopathy resolved. Patient alert and communicative today. continue to hold gabapentin and all nephrotoxic meds #Hyperkalemia: resolved with dialysis #ESRD: Also has history of kidney transplantation and is on tacrolimus on dialysis Wednesdays and Fridays. Currently on dialysis. Nephrology on board. #History of T5-T6 injury with resultant paraplegia PT.OT On board. uses a wheelchair has a neurogenic blader with suprapubic catheter in situ and is also s/p colostomy #History of DVT and PE: On Eliquis. This currently on hold due to hematuria #Hyperlipidemia: On statin #Hypothyroidism: On Synthroid #Type 2 diabetes mellitus: On Lantus 17 units daily. Insulin sliding scale. Accu-Cheks ACHS. #Depression: On escitalopram but this has been held due to encephalopathy DVT prophylaxis:on eliquis. Disposition: For discharge back to [facility] facility once ID decides what antibiotics he can be discharged on. Allergies/Procedures Done in Hospital Allergies No Known Allergies Allergy (Verified 02/18/24 04:45) Type of Care/Length of Stay Estimated LOS: Convalescent Care Less Than 30 days Type of Care Needed: Skilled Rehab Potential: Fair Prognosis: Fair Additional Orders/Day of Discharge Day of Discharge: 03/27/24 Dietary and Speech Recommendations Dietitian Recommendations/Changes: Continue regular renal, 1800 calorie controlled diet with potassium and sodium restrictions, consistency/texture per [employer] recommendations. Will order 1 packet of Kalyan bid with breakfast and dinner to increase wound healing. Will monitor weight, as available. Reviewed and approved by Rhianna Dawson RDN, ANTONIA. Discharge Plan Admission Admit Date/Time: 03/22/24 04:28 Primary Reason for Your Visit: Hypertensive emergency, hematuria Attending Provider: Danitza Roca Primary Care Provider: Vanessa Hutchins Consulting Providers: Fortunato Piper; Ben Schwartz; Jabari Medeiros; Lv Toscano; Jabari Del Angel; Ruth Ann Turk; Barbara Trevino NP; Caleb Hall Instructions Patient Instructions: ED High Blood Pressure Hypertension Discharge Orders/Prescriptions Prescriptions: New amoxicillin-pot clavulanate [Augmentin] 500-125 mg tablet 1 tab PO DAILY Qty: 40 0RF Rx Instructions: Give after dialysis on HD days. tobramycin sulfate 40 mg/mL solution 150 mg IV Q24H 39 Days Rx Instructions: IV tobramycin, 150mg given with dialysis on Sat, , , and Sat. Stop date 05/06/24. Twice weekly bmp, cbc, tobramycin trough prior to HD, and esr. Fax to [phone]. Continued atorvastatin 40 mg Tablet 40 mg PO QHS acetaminophen 325 mg Tablet 650 mg PO Q4H PRN (Reason: PAIN/FEVER) carvedilol 12.5 mg Tablet 12.5 mg PO Q12H Rx Instructions: must administer with a meal/food ascorbic acid (vitamin C) 500 mg Tablet 500 mg PO QHS bisacodyl 10 mg Suppository 10 mg AK DAILY PRN (Reason: Constipation) dextrose [Glucose Gel] 40 % Gel 15 g PO Q15M PRN (Reason: Hypoglycemia) Rx Instructions: until symptoms of low blood sugar are controlled insulin lispro [Humalog KwikPen Insulin] 100 unit/mL Insulin Pen 6 unit SUBCUT QHS Eliquis 5 mg Tablet 5 mg PO BID trazodone 50 mg Tablet 50 mg PO QHS hydralazine 25 mg Tablet 50 mg PO Q8 pantoprazole 40 mg Tablet,Delayed Release (Dr/Ec) 40 mg PO DAILY Rx Instructions: in am clotrimazole-betamethasone 1-0.05 % Cream 1 applic TOPICAL QHS Rx Instructions: apply to face tacrolimus [Prograf] 1 mg Capsule 2 mg PO Q12H midodrine 10 mg Tablet 10 mg PO MOTUTHFR Rx Instructions: TAKE 1 TAB BY MOUTH EVERY SATURDAY, SATURDAY, SATURDAY, AND SATURDAY for hypotension prior to dialysis Hold BP >130/90 insulin glargine [Lantus Solostar U-100 Insulin] 100 unit/mL (3 mL) Insulin Pen 11 unit SUBCUT 1700 polyethylene glycol 3350 17 gram Powder In Packet 17 g PO DAILY PRN (Reason: constipation) promethazine 12.5 mg Tablet 12.5 mg PO Q8H PRN (Reason: Nausea) ondansetron HCl 4 mg Tablet 4 mg PO Q8H PRN PRN (Reason: Nausea) Senna Plus 8.6-50 mg Capsule 1 tab-cap PO BID gabapentin 100 mg capsule 200 mg PO BID sevelamer HCl 800 mg tablet 2,400 mg PO TIDCM Rx Instructions: must administer with a meal/food levothyroxine 150 mcg tablet 150 mcg PO DAILY@0600 Patient Comments: [place] PT TAKES IN THE AM oxycodone 10 mg tablet 10 mg PO Q4H PRN (Reason: pain) 2 Days Qty: 12 0RF acetaminophen 650 mg suppository 650 mg AK Q4H PRN (Reason: fever or pain) magnesium hydroxide [Milk of Magnesia] 400 mg/5 mL suspension 30 ml PO DAILY PRN (Reason: constipation) glucagon 1 mg kit 1 mg subcut X1 PRN (Reason: hypoglycemia) Benadryl Extra Strength 2-0.1 % cream 1 applic topical Q6H PRN PRN (Reason: itching) ciclopirox 8 % solution 1 applic topical QHS Rx Instructions: right thumb insulin lispro [Humalog KwikPen Insulin] 100 unit/mL insulin pen 9 unit subcut DAILY Rx Instructions: in am escitalopram oxalate [Lexapro] 10 mg tablet 15 mg PO QHS vancomycin in 0.9 % sodium chl 1 gram/200 mL piggyback 1 g IV .see below 16 Days Rx Instructions: stop date 01/20/24. Dx: sacral osteomyelitis. Dose 750gm iv vancomycin with HD on Sat, , and . Dose 1gm iv vanc with HD on Fridays. weekly bmp, cbc, LFT, vanc trough, and esr. Fax to [phone]. B complex-vitamin C-folic acid 0.8 mg tablet 1 tab PO DAILY insulin lispro 100 unit/mL solution 11 unit subcut DAILY@1700 insulin lispro 100 unit/mL insulin pen See Protocol subcut TIDCM Protocol: 6. Sliding Scale Insulin Custom Condition: 180-200 mg/dl range Dose/Route: 2 Number of Units Condition: 201-250 Dose/Route: 3 Condition: 251-300 Dose/Route: 4 Condition: 301-350 Dose/Route: 5 Condition: 351-400 Dose/Route: 6 Condition: 401-450 Dose/Route: 7 Condition: >451 Dose/Route: call MD Protocol Text: Custom Sliding Scale Referrals / Follow Up: Vanessa Hutchins MD [Primary Care Provider] - Within 1 Week Jabari Medeiros MD [Med Staff - Active Staff] - Within 1 Week Jabari Del Angel MD [Med Staff - Active Staff] - Within 1 Week Disposition Disposition (needs filled in before D/C Order can be placed): [facility]
--- NOTE | 2024-03-27 16:14 | DS.PCM_ITS ---
Providers Date of Admission: 03/22/24 Date of Discharge: 03/27/24 Primary Care Physician: Dr. Vanessa Hutchins MD Consultations 03/22/24 06:14 Consult: Nephrology Routine Consulting Provider: Lv Toscano Reason for Consult: ESRD on HD with Hyperkalemia of 6 mmol/L present on admission. EMERGENT Consult: No MD Notified: Yes Date Notified: 03/22/24 Time Notified: 07:24 Method of Notification: Answering Service 03/22/24 07:10 Consult: Plastic Surgery Routine Consulting Provider: [facility] Reason for Consult: Abscess EMERGENT Consult: No Notified: Yes Date Notified: 03/22/24 Time Notified: 07:10 Method of Notification: Text 03/22/24 11:19 Consult: Marble [facility]ter / Pulmonary Medicine Routine Consulting Provider: Int[facility]ivists/Pulmonary Med Reason for Consult: ICU admission EMERGENT Consult: No Notified: Yes Date Notified: 03/22/24 Time Notified: 11:19 Method of Notification: Text 03/23/24 07:32 Consult: Onc/Wound/box tender Routine Comment: Reason for Consult:: coccyx wound, foot ulcer, and colostomy 03/24/24 10:21 Consult: Infectious Disease Routine Consulting Provider: Jabari Medeiros Reason for Consult: positive blood cultures EMERGENT Consult: No Notified: Yes Date Notified: 03/24/24 Time Notified: 10:21 Method of Notification: Dr. Roca sent text 03/25/24 10:10 Consult: Urology Routine Consulting Provider: Caleb Hall Reason for Consult: hematuria EMERGENT Consult: No Notified: Yes Date Notified: 03/25/24 Time Notified: 10:10 Method of Notification: Text Reason For Visit: HYPERTENSIVE EMERGENCY, ACUTE CYSTITITS W/HEMATURI Diagnosis Discharge Diagnosis (1) Abscess: Status: Acute Code(s): L02.91 - Cutaneous abscess, unspecified (2) ESRD (end stage renal disease) on dialysis: Status: Acute Code(s): N18.6 - End stage renal disease; Z99.2 - Dependence on renal dialysis (3) Paraplegia: Status: Acute Code(s): G82.20 - Paraplegia, unspecified Plan #Hypertensive emergency * Blood pressures improved. On carvedilol and hydralazine. Midodrine held. IV hydralazine as needed. #Hematuria: * resolved after suprapubic catheter was dc'd * Eliquis on hold. CT abdomen and pelvis showed bladder wall thickening consistent with cystitis. * He is also being treated for UTI. * He does have a suprapubic catheter in place. * Urology reviewed him and new suprapubic catheter was inserted. There was drainage of purulent urine. Per urology, no need for any surgical intervention. #Probable catheter associated UTI * Urinalysis does not really show evidence of UTI but CT scan showed bladder wall thickening consistent with cystitis. On IV Zosyn. He does have a suprapubic catheter in place. * Urine cultures growing Pseudomonas and E coli. * antibiotics changed per ID to IV vancomycin, meropenem and ciprofloxacin #Sacral decubitus ulcer concerning for osteomyelitis * Present on admission. Plastic surgery o board. CT scan showed a large ulcer overlying the left ischial tuberosity with findings consistent with osteomyelitis. * on IV zosyn * wound culturs growing Pseudomonas, Acinetobacter and ESBL E coli * per plastics, there is a possibility the abscess rained digitally during plastic surgery evaluation * ID consulted. On IV vancomycin, meropenem and ciprofloxacin * blood cultures growing Staph capitis * discussed with Dr. Larios of plastic surgery today. No plans for surgical intervention during this admission. He is to follow-up with the wound care center for wound VAC to be placed. * #Acute encephalopathy * resolved. Patient alert and communicative today. * continue to hold gabapentin and all nephrotoxic meds * #Hyperkalemia: resolved with dialysis #ESRD: * Also has history of kidney transplantation and is on tacrolimus on dialysis Wednesdays and Fridays. * Currently on dialysis. * Nephrology on board. * #History of T5-T6 injury with resultant paraplegia * PT.OT On board. uses a wheelchair * has a neurogenic blader with suprapubic catheter in situ and is also s/p colostomy * #History of DVT and PE: On Eliquis. This currently on hold due to hematuria #Hyperlipidemia: On statin #Hypothyroidism: On Synthroid #Type 2 diabetes mellitus: On Lantus 17 units daily. Insulin sliding scale. Accu-Cheks ACHS. #Depression: On escitalopram but this has been held due to encephalopathy DVT prophylaxis:on eliquis. Disposition: For discharge back to residential facility once ID decides what antibiotics he can be discharged on. Medications at Discharge Home Medications acetaminophen 325 mg tablet 650 mg PO Q4H PRN PAIN/FEVER 01/02/23 apixaban 5 mg tablet (Eliquis) 5 mg PO BID blood thinner 01/02/23 ascorbic acid (vitamin C) 500 mg tablet 500 mg PO QHS supplement 01/02/23 atorvastatin 40 mg tablet 40 mg PO QHS hypercholestremia 01/02/23 bisacodyl 10 mg rectal suppository 10 mg [place] DAILY PRN Constipation 01/02/23 carvedilol 12.5 mg tablet 12.5 mg PO Q12H HYPERTENSION 01/02/23 clotrimazole-betamethasone 1 %-0.05 % topical cream 1 applic topical QHS rash 01/02/23 dextrose 40 % oral gel (Glucose Gel) 15 g PO Q15M PRN Hypoglycemia 01/02/23 hydralazine 25 mg tablet 50 mg PO Q8 hypertension 01/02/23 insulin glargine 100 unit/mL (3 mL) subcutaneous pen (Lantus Solostar U-100 Insulin) 11 unit subcut 1700 diabetes 01/02/23 insulin lispro 100 unit/mL subcutaneous pen (Humalog KwikPen (U-100) Insulin) 6 unit subcut QHS diabetes 01/02/23 midodrine 10 mg tablet 10 mg PO MOTUTHFR DIALYSIS 01/02/23 ondansetron HCl 4 mg tablet 4 mg PO Q8H PRN PRN Nausea 01/02/23 pantoprazole 40 mg tablet,delayed release 40 mg PO DAILY gerd 01/02/23 polyethylene glycol 3350 17 gram oral powder packet 17 g PO DAILY PRN constipation 01/02/23 promethazine 12.5 mg tablet 12.5 mg PO Q8H PRN Nausea 01/02/23 sennosides 8.6 mg-docusate sodium 50 mg capsule (Senna Plus) 1 tab-cap PO BID Constipation 01/02/23 tacrolimus 1 mg capsule, immediate-release (Prograf) 2 mg PO Q12H immunosuppressive 01/02/23 trazodone 50 mg tablet 50 mg PO QHS insomnia 01/02/23 gabapentin 100 mg capsule 200 mg PO BID PHANTOM PAIN 10/15/23 sevelamer HCl 800 mg tablet 2,400 mg PO TIDCM ESRD 04/21/23 levothyroxine 150 mcg tablet 150 mcg PO DAILY@0600 hypothyroidism 07/16/23 oxycodone 10 mg tablet 10 mg PO Q4H PRN pain 2 days #12 tabs 07/19/23 acetaminophen 650 mg rectal suppository 650 mg [place] Q4H PRN fever or pain 08/06/23 glucagon 1 mg injection kit 1 mg subcut X1 PRN hypoglycemia 08/06/23 magnesium hydroxide 400 mg/5 mL oral suspension (Milk of Magnesia) 30 ml PO DAILY PRN constipation 08/06/23 ciclopirox 8 % topical solution 1 applic topical QHS nail fungus 11/17/23 insulin lispro 100 unit/mL subcutaneous pen (Humalog KwikPen (U-100) Insulin) 9 unit subcut DAILY diabetes 11/17/23 diphenhydramine-zinc acetate 2 %-0.1 % topical cream (Benadryl Extra Strength) 1 applic topical Q6H PRN PRN itching 12/06/23 escitalopram oxalate 10 mg tablet (Lexapro) 15 mg PO QHS depression 12/30/23 vancomycin 1 gram/200 mL in 0.9 % sod. chloride intravenous piggyback 1 g (200 mL) IV .see below 16 days 01/02/24 insulin lispro 100 unit/mL subcutaneous pen See Protocol subcut TIDCM 03/22/24 insulin lispro 100 unit/mL subcutaneous solution 11 unit subcut DAILY@1700 03/22/24 vitamin B complex-vitamin C-folic acid 0.8 mg tablet 1 tab PO DAILY 03/22/24 amoxicillin 500 mg-potassium clavulanate 125 mg tablet (Augmentin) 1 tab PO DAILY #40 tabs 03/27/24 tobramycin sulfate 40 mg/mL injection solution 150 mg (3.75 mL) IV Q24H 39 days 03/27/24 Hospital Course Operations None Procedures Dialysis Summary of Care Provided Minutes Spent on Discharge: 55 Hospital Course: Patient is a 38 y/o male with an extensive PMH as oultined who was admitted from his SNF o/a of confusion and lethargy. Staff also noticed decreased urine output from his suprapubic catheter, and urine was also bloody. There was no history of fever, chills, nausea vomiting or any other symptoms. Review of symptoms otherwise negative. Urinalysis showed evidence of infection and chest x-ray showed a left lower lobe infiltrate. Blood pressure was also markedly elevated at 189/116. Urinalysis also showed evidence of UTI. Patient was on Eliquis and this was held due to the hematuria. He also had hyperkalemia with potassium of 6. He was admitted and managed for acute encephalopathy thought to be due to hypertensive emergency as well as pneumonia and UTI as well as hyperkalemia. He was initially admitted to the ICU and started on nicardipine drip. He was treated with hyperkalemia protocol. He was started on empiric IV vancomycin and Zosyn for the pneumonia and UTI. Patient had a history of paraplegia after T5- T6 injury and was in a wheelchair. He had a neurogenic bladder with a suprapubic catheter in place. Patient was also visually impaired. His blood pressure improved and normalized. He was put back on his blood pressure medications. Urology was consulted due to the hematuria and the suprapubic catheter was changed. There was a lot of drainage of pus from the catheter and this was also thought to be due to the cause of his hematuria. Urine was clear after the suprapubic catheter was changed. He was therefore placed back on his Eliquis. Plastic surgery was consulted due to his sacral decubitus ulcer with concern for osteomyelitis. Of note nephrology was also on board during this admission for dialysis. CT of the sacrum showed a large ulcer overlying the left ischial tuberosity with findings consistent with osteomyelitis. Wound cultures grew Pseudomonas, Acinetobacter and ESBL E. coli. Antibiotics were transitioned to IV vancomycin, meropenem and ciprofloxacin. Blood cultures grew Staph capitis. ID was on board during this admission. Plastic surgery declined to do any surgical intervention during this admission and recommended that he follow-up with them at the wound center for wound VAC to be placed and decision to be made about surgery down the line. Patient was discharged back to her residential facility on 03/27/2024. Per ID recommendation he was discharged on IV tobramycin to be given with dialysis on Saturday and Saturday was also given prescription for p.o. Augmentin both for 6-week course. He is to have twice weekly labs done. Stop date of antibiotics was 05/06/2024. He is follow-up with his primary care doctor, nephrology, plastic surgery and infectious disease. Patient was seen and examined prior to discharge. He had no active complaints and had an uneventful night. Review of systems otherwise negative. Labs and vitals reviewed. Home medication reviewed and reconciled. 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 Colostomy bag in situ Extremity normal capillary refill, no clubbing, cyanosis or edema and no calf tenderness Extremity Narrative: AV fistula in LUE. Undergoing dialysis. Left BKA. Right foot bandaged. Skin no rashes or lesions noted General Skin Exam: no breakdown Neuro oriented x3, CN's II-XII intact bilaterally, moves all extremities and no focal motor deficits Motor Exam: general weakness Psych thought process normal Psych Narrative: flat affect Appearance: appropriate Weight / BMI Weight Weight: 291 lb 0.163 oz Body Mass Index (BMI) 39.4 ABG / Lab / Microbiology Data 03/27/24 06:08 03/27/24 06:08 Laboratory: Laboratory Results - last 24 hr 03/26/24 16:40: POC Glucose 154 H 03/26/24 20:53: POC Glucose 172 H 03/27/24 06:08: WBC 10.9, RBC 3.44 L, Hgb 9.3 L, Hct 30.6 L, MCV 89.0, MCH 27.0, MCHC 30.4 L, RDW Std Deviation 59.0 H, RDW Coeff of Shanta 18.2 H, Plt Count 179, MPV 10.6, Immature Gran % (Auto) 0.800, Neut % (Auto) 63.7, Lymph % (Auto) 22.5, [place] % (Auto) 8.6, Eos % (Auto) 3.7, Baso % (Auto) 0.7, Absolute Neuts (auto) 6.9, Absolute Lymphs (auto) 2.44, Nucleated RBC % 0, Sodium 136, Potassium 4.7, Chloride 99, Carbon Dioxide 22.0, Anion Gap 15, BUN 48 H, Creatinine 9.76 H*, Estim Creat Clear Calc 14.82, Est GFR (MDRD) Af Amer 8 L, Est GFR (MDRD) Non-Af 7 L, BUN/Creatinine Ratio 4.9 L, Glucose 141 H, Calcium 9.3, Random Vancomycin 26.4 H 03/27/24 11:08: POC Glucose 162 H 03/27/24 14:45: POC Glucose 150 H Microbiology: Microbiology 03/22/24 08:00 Wound Abcess - Ischium Gram Stain - Final 03/22/24 08:00 Wound Abcess - Ischium Wound Culture - Final Pseudomonas aeruginosa Acinetobacter baumannii ESBL Escherichia coli 03/22/24 08:00 Wound Abcess - Ischium Anaerobic Culture - Final No anaerobic bacteria isolated. 03/22/24 02:02 Urine Catheter - [place] Urine Culture - Preliminary Pseudomonas aeruginosa Escherichia coli Gram negative polo 03/22/24 02:01 Blood Culture (Wb) - Neck Blood Culture - Final Staphylococcus capitis 03/22/24 02:03 Mucosa - Nose SARS-CoV-2, Influenza & RSV (PCR) - Final D/C Instructions Discharge Diet: Low fat / Low cholesterol Discharge Activity: Return to Normal Activity Weight Bearing Status: Weight bearing as tolerated Meaningful Use Info Meaningful Use Meaningful Use Diagnoses (Choose all that apply): None applicable Ischemic Stroke Statin Dosing Therapy Reference: STATIN DOSE THERAPY REFERENCE: * Patients > 75 years receive moderate or high dose statin therapy. * Patients 75 years or YOUNGER should receive HIGH intensity statin dose unless contraindicated. You will be required to document reason for non-treatment if statin daily dose does not meet guidelines. HIGH DOSE STATIN THERAPY DAILY Atorvastatin > than or = to 40 mg Rosuvastatin > than or = to 20 mg Amlodipine + Atorvastatin > than or = to 2.5/40 mg Ezetimibe + Simvastatin 10/80 mg Simvastatin 80mg Discharge Plan Admission Admit Date/Time: 03/22/24 04:28 Primary Reason for Your Visit: Hypertensive emergency, hematuria Attending Provider: Danitza Roca Primary Care Provider: Vanessa Hutchins Consulting Providers: Fortunato Piper; Ben Schwartz; Jabari Medeiros; Lv Toscano; Jabari Del Angel; Ruth Ann Turk; Barbara Trevino NP; Caleb Hall Instructions Patient Instructions: ED High Blood Pressure Hypertension Discharge Orders/Prescriptions Prescriptions: New amoxicillin-pot clavulanate [Augmentin] 500-125 mg tablet 1 tab PO DAILY Qty: 40 0RF Rx Instructions: Give after dialysis on HD days. tobramycin sulfate 40 mg/mL solution 150 mg IV Q24H 39 Days Rx Instructions: IV tobramycin, 150mg given with dialysis on Sat, , , and Sat. Stop date 05/06/24. Twice weekly bmp, cbc, tobramycin trough prior to HD, and esr. Fax to [phone]. Continued atorvastatin 40 mg Tablet 40 mg PO QHS acetaminophen 325 mg Tablet 650 mg PO Q4H PRN (Reason: PAIN/FEVER) carvedilol 12.5 mg Tablet 12.5 mg PO Q12H Rx Instructions: must administer with a meal/food ascorbic acid (vitamin C) 500 mg Tablet 500 mg PO QHS bisacodyl 10 mg Suppository 10 mg W[place] DAILY PRN (Reason: Constipation) dextrose [Glucose Gel] 40 % Gel 15 g PO Q15M PRN (Reason: Hypoglycemia) Rx Instructions: until symptoms of low blood sugar are controlled insulin lispro [Humalog KwikPen Insulin] 100 unit/mL Insulin Pen 6 unit SUBCUT QHS Eliquis 5 mg Tablet 5 mg PO BID trazodone 50 mg Tablet 50 mg PO QHS hydralazine 25 mg Tablet 50 mg PO Q8 pantoprazole 40 mg Tablet,Delayed Release (Dr/Ec) 40 mg PO DAILY Rx Instructions: in am clotrimazole-betamethasone 1-0.05 % Cream 1 applic TOPICAL QHS Rx Instructions: apply to face tacrolimus [Prograf] 1 mg Capsule 2 mg PO Q12H midodrine 10 mg Tablet 10 mg PO MOTUTHFR Rx Instructions: TAKE 1 TAB BY MOUTH EVERY SATURDAY, SATURDAY, SATURDAY, AND SATURDAY for hypotension prior to dialysis Hold BP >130/90 insulin glargine [Lantus Solostar U-100 Insulin] 100 unit/mL (3 mL) Insulin Pen 11 unit SUBCUT 1700 polyethylene glycol 3350 17 gram Powder In Packet 17 g PO DAILY PRN (Reason: constipation) promethazine 12.5 mg Tablet 12.5 mg PO Q8H PRN (Reason: Nausea) ondansetron HCl 4 mg Tablet 4 mg PO Q8H PRN PRN (Reason: Nausea) Senna Plus 8.6-50 mg Capsule 1 tab-cap PO BID gabapentin 100 mg capsule 200 mg PO BID sevelamer HCl 800 mg tablet 2,400 mg PO TIDCM Rx Instructions: must administer with a meal/food levothyroxine 150 mcg tablet 150 mcg PO DAILY@0600 Patient Comments: [place] PT TAKES IN THE AM oxycodone 10 mg tablet 10 mg PO Q4H PRN (Reason: pain) 2 Days Qty: 12 0RF acetaminophen 650 mg suppository 650 mg W[place] Q4H PRN (Reason: fever or pain) magnesium hydroxide [Milk of Magnesia] 400 mg/5 mL suspension 30 ml PO DAILY PRN (Reason: constipation) glucagon 1 mg kit 1 mg subcut X1 PRN (Reason: hypoglycemia) Benadryl Extra Strength 2-0.1 % cream 1 applic topical Q6H PRN PRN (Reason: itching) ciclopirox 8 % solution 1 applic topical QHS Rx Instructions: right thumb insulin lispro [Humalog KwikPen Insulin] 100 unit/mL insulin pen 9 unit subcut DAILY Rx Instructions: in am escitalopram oxalate [Lexapro] 10 mg tablet 15 mg PO QHS vancomycin in 0.9 % sodium chl 1 gram/200 mL piggyback 1 g IV .see below 16 Days Rx Instructions: stop date 01/20/24. Dx: sacral osteomyelitis. Dose 750gm iv vancomycin with HD on Sat, , and . Dose 1gm iv vanc with HD on Fridays. weekly bmp, cbc, LFT, vanc trough, and esr. Fax to [phone]. B complex-vitamin C-folic acid 0.8 mg tablet 1 tab PO DAILY insulin lispro 100 unit/mL solution 11 unit subcut DAILY@1700 insulin lispro 100 unit/mL insulin pen See Protocol subcut TIDCM Protocol: 6. Sliding Scale Insulin Custom Condition: 180-200 mg/dl range Dose/Route: 2 Number of Units Condition: 201-250 Dose/Route: 3 Condition: 251-300 Dose/Route: 4 Condition: 301-350 Dose/Route: 5 Condition: 351-400 Dose/Route: 6 Condition: 401-450 Dose/Route: 7 Condition: >451 Dose/Route: call MD Protocol Text: Custom Sliding Scale Referrals / Follow Up: Vanessa Hutchins MD [Primary Care Provider] - Within 1 Week Jabari Medeiros MD [Med Staff - Active Staff] - Within 1 Week Jabari Del Angel MD [Med Staff - Active Staff] - Within 1 Week Disposition Disposition (needs filled in before D/C Order can be placed): [facility] Charges/Coding Visit Charges Inpatient E&M: 41975 Disch Hosp >30min
[2024-03-27] MEDS: Insulin Glargine-YFGN 100 UNIT/ML Pen 7 UNIT SC (18:44)
[2024-03-27] MEDS: Insulin Lispro 100 UNIT/ML INSULN.PEN SC (18:47)
[2024-03-27 18:55] LABS: Bedside Glucose 154 mg/dL (74-106)
[2024-03-27] MEDS: hydrALAZINE 20 MG/ML Vial 10 MG IV (18:57)
== END 2024-03-27 20:30 | disposition skilled nursing facility (03) | DRG 77 ==
LOC: ED 03:00 → ICU 04:42 → PCU 03-24 16:50
PROVIDERS: Internal Medicine Nephrology; Nurse Practitioner Adult Health; Admitting Provider Internal Medicine; Emergency Provider Emergency Medicine; PCP Internal Medicine; Visit Provider Student in an Organized Health Care Education/Training Program
DX: I67.4 Hypertensive encephalopathy (principal); G93.41 Metabolic encephalopathy; L89.324 Pressure ulcer of left buttock, stage 4; L89.154 Pressure ulcer of sacral region, stage 4; N18.6 End stage renal disease; T86.12 Kidney transplant failure; D68.32 Hemorrhagic disorder due to extrinsic circulating 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; M46.28 Osteomyelitis of vertebra, sacral and sacrococcygeal region; I13.2 Hypertensive heart and chronic kidney disease with heart failure and with stage 5 chronic kidney disease, or end stage renal disease; Z68.41 Body mass index [BMI] 40.0-44.9, adult; G82.22 Paraplegia, incomplete; T83.518A Infection and inflammatory reaction due to other urinary catheter, initial encounter; I50.22 Chronic systolic (congestive) heart failure; J95.831 Postprocedural hemorrhage of a respiratory system organ or structure following other procedure; T83.090A Other mechanical complication of cystostomy catheter, initial encounter; N30.01 Acute cystitis with hematuria; Z16.12 Extended spectrum beta lactamase (ESBL) resistance; M86.68 Other chronic osteomyelitis, other site; L02.31 Cutaneous abscess of buttock; D63.1 Anemia in chronic kidney disease; E11.22 Type 2 diabetes mellitus with diabetic chronic kidney disease; E03.9 Hypothyroidism, unspecified; F32.A Depression, unspecified; G54.6 Phantom limb syndrome with pain; Z93.3 Colostomy status; E11.69 Type 2 diabetes mellitus with other specified complication; Z89.512 Acquired absence of left leg below knee; E66.01 Morbid (severe) obesity due to excess calories; E78.5 Hyperlipidemia, unspecified; K21.9 Gastro-esophageal reflux disease without esophagitis; Z99.2 Dependence on renal dialysis; Z79.4 Long term (current) use of insulin; E87.5 Hyperkalemia; I16.0 Hypertensive urgency; Y73.8 Miscellaneous gastroenterology and urology devices associated with adverse incidents, not elsewhere classified; Y84.8 Other medical procedures as the cause of abnormal reaction of the patient, or of later complication, without mention of misadventure at the time of the procedure; R04.0 Epistaxis; T45.515A Adverse effect of 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, initial encounter; B96.5 Pseudomonas (aeruginosa) (mallei) (pseudomallei) as the cause of diseases classified elsewhere; N31.9 Neuromuscular dysfunction of bladder, unspecified; B96.20 Unspecified Escherichia coli [E. coli] as the cause of diseases classified elsewhere; Y83.0 Surgical operation with transplant of whole organ as the cause of abnormal reaction of the patient, or of later complication, without mention of misadventure at the time of the procedure; Z79.84 Long term (current) use of oral hypoglycemic drugs; Z79.01 Long term (current) use of 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; Z79.890 Hormone replacement therapy; Z79.891 Long term (current) use of opiate analgesic; Z86.718 Personal history of other venous thrombosis and embolism; Z86.711 Personal history of pulmonary embolism
CPT/HCPCS: 36415; 36600; 70450; 71045; 71250; 74176; 80048; 80076; 80197; 80202; 80307; 81001; 82077; 82140; 82607; 82746; 82803; 82962; 83605; 84100; 84145; 84443; 85025; 85610; 85652; 85730; 86140; 87040; 87070; 87075; 87077; 87086; 87088; 87184; 87186; 87205; 87449; 87631; 90937; 92526; 92610; 93005; 93306; 97162; 97166; 97802; 97803; 99285; J2185; J7030; J7040; J7050; Q9957; A4216; C8929; G0257; J0612; J0744

== ENCOUNTER 2024-03-28 17:38 | Inpatient (IN) | payer MEDICARE, MEDICAID, SELFPAY ==
[2024-03-28] VITALS (23 sets, daily range): BP systolic 116–241; BP diastolic 55–108; PULSE 92–100; RESP 4–24; TEMP 36.8–36.9; O2SAT 93–100; BMI 40.6
--- NOTE | 2024-03-28 17:58 | EKG12_ITS ---
Test Reason : alt loc Blood Pressure : / mmHG Vent. Rate : 099 BPM Atrial Rate : 099 BPM P-R Int : 160 ms QRS Dur : 080 ms QT Int : 374 ms P-R-T Axes : 042 011 081 degrees QTc Int : 479 ms Normal sinus rhythm Possible Left atrial enlargement Nonspecific T wave abnormality Prolonged QT Abnormal ECG Confirmed by Benedicto Kendrick ([id number]), subeditor DEANNA TOWNSEND ([id number]) on 03/30/2024 10:59:25 AM Referred By: Confirmed By:Benedicto Kendrick
--- NOTE | 2024-03-28 17:58 | ED.RN ---
unable to get wt due to bed does not wt and pt unable to stand.
--- NOTE | 2024-03-28 18:36 | EDS_ITS ---
HPI History of Present Illness Chief Complaint: Alt LOC Detail of Chief Complaint: Altered mental status Informant: patient, EMS, SNF and other (A surgical sales representative from [facility] called in about patient.) Onset/Context/Timing Onset: - (Patient was discharged from the hospital yesterday.) Context: Sudden Onset Timing: Continuous Quality: Patient has depressed level conscious. Nurse informing that he had a spont Location: Spontaneous nosebleed from the left side upon arrival Worsened by: Patient is on Eliquis. Narrative Narrative: Patient complains of shortness of breath. He is not oriented his history is limited. He was admitted for hypertensive emergency, hematuria that was due to a UTI and the fact there is on anticoagulant.. He also had a sacral decubitus ulcer that was concerning for osteomyelitis. And confirmed by CT. Wound cultures grew Pseudomonas, ESBL E. coli and Acinetobacter. Patient is on hemodialysis and required hemodialysis for hyperkalemia. He is on anticoagulant because of history of DVT and PE. Prior similar symptoms: No Recent Illness/Hospitalization: Yes PFSH [facility] Medical History Hyperkalemia Pneumonia Anemia in chronic kidney disease, on chronic dialysis [employer] intermedi[employer] (current) use of 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 H/O deep venous thrombosis Osteomyelitis of pelvic region Lives in half-way Anxiety Open wound Insulin dependent diabetes mellitus Uses wheelchair Injury of back Community acquired MRSA infection Non-healing wound of amputation stump DM type 2, goal HbA1c < 7% 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, stage 4 Hypomagnesemia Hyperosmolality and hypernatremia Neurogenic bowel Pericardial effusion (noninflammatory) SIRS (systemic inflammatory response syndrome) Pyrexia Chronic kidney disease with end stage renal failure on dialysis Kidney transplant failure Dependence on renal dialysis Pressure ulcer of left heel, unspecified stage Gastro-esophageal reflux disease without esophagitis Acute on chronic systolic (congestive) heart failure Other pericardial effusion (noninflammatory) Other pulmonary embolism without acute cor pulmonale Hypertensive heart and chronic kidney disease with heart failure and stage 1 through stage 4 chronic kidney disease, or unspecified chronic kidney disease Depression Hyperlipemia Hypothyroidism Anemia in chronic kidney disease Neuromuscular dysfunction of bladder, unspecified Paraplegia, incomplete Other acute osteomyelitis, left ankle and foot End stage renal disease Acute pulmonary edema Acute respiratory failure with hypoxia Home Medications ?Medication ?Instructions ?Recorded ?Last Taken ?Type acetaminophen 325 mg tablet 650 mg PO Q4H PRN PAIN/FEVER 01/02/23 04/21/23 History apixaban 5 mg tablet (Eliquis) 5 mg PO BID blood thinner 01/02/23 07/16/23 History ascorbic acid (vitamin C) 500 mg 500 mg PO QHS supplement 01/02/23 12/08/23 History tablet atorvastatin 40 mg tablet 40 mg PO QHS hypercholestremia 01/02/23 12/08/23 History bisacodyl 10 mg rectal suppository [address] DAILY PRN Constipation 01/02/23 Unknown History carvedilol 12.5 mg tablet 12.5 mg PO Q12H HYPERTENSION 01/02/23 12/09/23 History clotrimazole-betamethasone 1 1 applic topical QHS rash 01/02/23 07/15/23 History %-0.05 % topical cream dextrose 40 % oral gel (Glucose 15 g PO Q15M PRN Hypoglycemia 01/02/23 Unknown History Gel) hydralazine 25 mg tablet 50 mg PO Q8 hypertension 01/02/23 12/09/23 History insulin glargine 100 unit/mL (3 11 unit subcut 1700 diabetes 01/02/23 12/08/23 History mL) subcutaneous pen (Lantus Solostar U-100 Insulin) insulin lispro 100 unit/mL 6 unit subcut QHS diabetes 01/02/23 07/16/23 History subcutaneous pen (Humalog KwikPen (U-100) Insulin) midodrine 10 mg tablet 10 mg PO MOTUTHFR DIALYSIS 01/02/23 12/09/23 History ondansetron HCl 4 mg tablet 4 mg PO Q8H PRN PRN Nausea 01/02/23 Unknown History pantoprazole 40 mg tablet,delayed 40 mg PO DAILY gerd 01/02/23 12/08/23 History release polyethylene glycol 3350 17 gram 17 g PO DAILY PRN constipation 01/02/23 Unknown History oral powder packet promethazine 12.5 mg tablet 12.5 mg PO Q8H PRN Nausea 01/02/23 07/15/23 History sennosides 8.6 mg-docusate sodium 1 tab-cap PO BID Constipation 01/02/23 07/16/23 History 50 mg capsule (Senna Plus) tacrolimus 1 mg capsule, 2 mg PO Q12H immunosuppressive 01/02/23 12/09/23 History immediate-release (Prograf) trazodone 50 mg tablet 50 mg PO QHS insomnia 01/02/23 12/08/23 History gabapentin 100 mg capsule 200 mg PO BID PHANTOM PAIN 04/21/23 12/09/23 History sevelamer HCl 800 mg tablet 2,400 mg PO TIDCM ESRD 04/21/23 07/16/23 History levothyroxine 150 mcg tablet 150 mcg PO DAILY@0600 07/16/23 12/09/23 History hypothyroidism oxycodone 10 mg tablet 10 mg PO Q4H PRN pain 2 days #12 07/19/23 Unknown Rx tabs acetaminophen 650 mg rectal [address] Q4H PRN fever or pain 08/06/23 Unknown History suppository glucagon 1 mg injection kit 1 mg subcut X1 PRN hypoglycemia 08/06/23 Unknown History magnesium hydroxide 400 mg/5 mL 30 ml PO DAILY PRN constipation 08/06/23 Unknown History oral suspension (Milk of Magnesia) ciclopirox 8 % topical solution 1 applic topical QHS nail fungus 11/17/23 Unknown History insulin lispro 100 unit/mL 9 unit subcut DAILY diabetes 11/17/23 Unknown History subcutaneous pen (Humalog KwikPen (U-100) Insulin) diphenhydramine-zinc acetate 2 1 applic topical Q6H PRN PRN 12/06/23 Unknown History %-0.1 % topical cream (Benadryl itching Extra Strength) escitalopram oxalate 10 mg tablet 15 mg PO QHS depression 12/30/23 Unknown History (Lexapro) vancomycin 1 gram/200 mL in 0.9 % 1 g (200 mL) IV .see below 16 days 01/02/24 Unknown Rx sod. chloride intravenous piggyback insulin lispro 100 unit/mL See Protocol subcut TIDCM 03/22/24 Unknown History subcutaneous pen insulin lispro 100 unit/mL 11 unit subcut DAILY@1700 03/22/24 Unknown History subcutaneous solution vitamin B complex-vitamin C-folic 1 tab PO DAILY 03/22/24 Unknown History acid 0.8 mg tablet amoxicillin 500 mg-potassium 1 tab PO DAILY #40 tabs 03/27/24 Unknown Rx clavulanate 125 mg tablet (Augmentin) tobramycin sulfate 40 mg/mL 150 mg (3.75 mL) IV Q24H 39 days 03/27/24 Unknown Rx injection solution Allergy/AdvReac Type Severity Reaction Status Date / Time No Known Allergies Allergy Verified 02/18/24 04:45 Family History Mother Hypertension Diabetes Father Hypertension Diabetes Surgical History History of kidney transplant S/P unilateral above knee amputation S/P foot surgery S/P colostomy Social History housing: half-way Smoking Status: Never smoker alcohol intake: never substance use type: does not use ROS ROS ED Constitutional Constitutional ED: Reports chills, fever(s) and subjective Eyes Eyes: Reports blurry vision bilateral ENT ENT ED: Denies ear pain, rhinorrhea or sore throat Cardiovascular Cardiovascular: Denies chest pain or palpitations Respiratory/Chest Respiratory/Chest: Reports dyspnea; Denies cough Gastrointestinal Gastrointestinal: Reports nausea; Denies abdominal pain Genitourinary Genitourinary ED: Reports other Details: Indwelling suprapubic catheter. Urine is a turbid and brown in appearance. Musculoskeletal Musculoskeletal: Reports back pain Neurologic Neurologic: Denies headache(s) Hematologic/Lymphatic Hematologic/Lymphatic: Reports easy bruising EXAM Physical Exam Const Vital Signs: 03/28/24 17:45 03/28/24 17:49 03/28/24 17:53 Temperature 98.3 F 98.3 F Temperature Source Oral Oral Pulse Rate 95 95 Respiratory Rate 18 18 Respiratory Effort Normal Respiratory Pattern Normal Blood Pressure 165/57 H 165/57 H Blood Pressure Mean 93 93 Pulse Ox 95 95 Oxygen Delivery Method Room Air Room Air 03/28/24 18:38 03/28/24 18:49 03/28/24 19:00 Temperature 98.4 F Temperature Source Temporal Pulse Rate 96 96 96 Respiratory Rate 20 H 20 H 18 Respiratory Effort Respiratory Pattern Blood Pressure 159/69 H 168/99 H 190/105 H Blood Pressure Mean 99 122 133 Pulse Ox 96 94 94 Oxygen Delivery Method Room Air Room Air Room Air 03/28/24 19:16 03/28/24 19:30 03/28/24 19:45 Temperature Temperature Source Pulse Rate 96 93 93 Respiratory Rate 22 H 13 10 L Respiratory Effort Respiratory Pattern Blood Pressure 241/97 H 238/85 H 212/80 H Blood Pressure Mean 133 124 112 Pulse Ox 93 95 Oxygen Delivery Method Room Air 03/28/24 19:49 03/28/24 20:00 03/28/24 20:00 Temperature 98.4 F Temperature Source Oral Pulse Rate 93 92 92 Respiratory Rate 14 17 17 Respiratory Effort Respiratory Pattern Blood Pressure 238/85 H 192/71 H Blood Pressure Mean 136 104 Pulse Ox 98 94 94 Oxygen Delivery Method Room Air Room Air 03/28/24 20:15 03/28/24 20:25 03/28/24 20:30 Temperature Temperature Source Pulse Rate 97 97 Respiratory Rate 4 L 16 Respiratory Effort Respiratory Pattern Blood Pressure 205/100 H Blood Pressure Mean 128 Pulse Ox 100 97 Oxygen Delivery Method 03/28/24 20:36 03/28/24 20:45 03/28/24 21:00 Temperature Temperature Source Pulse Rate 99 98 99 Respiratory Rate 22 H 18 24 H Respiratory Effort Respiratory Pattern Blood Pressure 180/58 H 180/59 H 152/63 H Blood Pressure Mean 89 91 92 Pulse Ox 97 97 96 Oxygen Delivery Method Room Air 03/28/24 21:00 03/28/24 21:15 03/28/24 21:30 Temperature Temperature Source Pulse Rate 98 99 98 Respiratory Rate 20 H 16 20 H Respiratory Effort Respiratory Pattern Blood Pressure 152/63 H 161/62 H 116/55 L Blood Pressure Mean 86 87 64 Pulse Ox 97 Oxygen Delivery Method 03/28/24 21:45 03/28/24 22:00 03/28/24 22:43 Temperature Temperature Source Pulse Rate 100 98 Respiratory Rate 23 H 14 13 Respiratory Effort Respiratory Pattern Blood Pressure 177/108 H 158/59 H Blood Pressure Mean 119 92 Pulse Ox 98 98 95 Oxygen Delivery Method Room Air 03/28/24 22:45 03/28/24 23:00 Temperature Temperature Source Pulse Rate 93 Respiratory Rate 9 L 17 Respiratory Effort Respiratory Pattern Blood Pressure 158/59 H 163/59 H Blood Pressure Mean 86 85 Pulse Ox 96 99 Oxygen Delivery Method Room Air Room Air Positive well nourished, well developed and unkempt Constitutional Narrative: Patient noted to have blood from the left naris. Nurse put a nose clip device on. Bleeding has halted. General Appearance ED: unkempt and well developed; Negative for cyanotic, diaphoretic or pallor HEENT Reports TM's clear and dry mucous membranes Tympanic Membrane ED: Yes TM's clear Mouth ED: Yes dry mucous membranes Mouth: dry mucous membranes Eyes PERRL and EOMs intact bilaterally General Eye ED: Yes pale conjunctiva; Negative for scleral icterus Neck no lymphadenopathy, supple and no JVD Chest Wall inspection of chest normal and palpation of chest normal Resp normal respiratory effort and clear to auscultation bilaterally Cardio regular rate, regular rhythm, S1 normal heart sound, S2 normal heart sound and no murmurs GI non-distended and no masses; Negative for non-tender or hepatosplenomegaly Auscultation: hypoactive bowel sounds Palpation: tender other (Patient has tenderness throughout. He is noted to have a colostomy left lower quadrant. There is also suprapubic catheter noted.) Back/Spine no CVA tenderness Extremity General Extremety ED: Yes edema General Extremity: edema Neuro No oriented x3 and CN's II-XII intact bilaterally Sensorium / Orientation: Negative for alert Psych Appearance: unkempt Mood & Affect: depressed Skin General Skin Exam: Negative for jaundice or pallor MDM MDM MDM Narrative Medical decision making narrative: Altered mental status may be due to metabolic or infectious cause. Since there is abnormal breath sounds noted on auscultation chest x-ray was obtained. Urinalysis was obtained because of the appearance of his urine. Will need to pack the left naris due to epistaxis since he is on anticoagulant. Electrolyte panel was obtained to assess electrolytes, BUN/creatinine and anion gap. CT was obtained because of the elevated blood pressure altered mental status rule out intracranial bleed. There was none noted. CT of the abdomen was obtained because of no flatus or stool in his colostomy bag for hours. Radiologist read both is unremarkable for any acute pathology. After reviewing records from half-way and discharge summary patient apparently did not receive antibiotics that were scheduled and led to deterioration in his status. Patient was treated with hydralazine for his elevated blood pressure. History & Record Review Additional record(s) reviewed:: Prior inpatient record, Prior ED visit and Prior labs Lab Data Attestation: I reviewed the patient's lab results. Lab results narrative: White count slight elevated 11.1. There is slight shift with no bandemia. Patient has chronic anemia with an H&H 9.4 and 31.3. BUN is 53 with a creat inine 9.86. Albumin is low at 2.7. Patient is on hemodialysis. Labs: Laboratory Results - last 24 hr 03/28/24 03/28/24 19:08 20:13 WBC 11.1 H RBC 3.49 L Hgb 9.4 L Hct 31.3 L MCV 89.7 MCH 26.9 L MCHC 30.0 L RDW Std Deviation 59.4 H RDW Coeff of Shanta 18.0 H Plt Count 192 MPV 11.0 Immature Gran % (Auto) 0.400 Neut % (Auto) 70.5 H Lymph % (Auto) 17.9 L [place] % (Auto) 7.5 Eos % (Auto) 2.9 Baso % (Auto) 0.8 Absolute Neuts (auto) 7.9 H Absolute Lymphs (auto) 1.99 Nucleated RBC % 0 Sodium 134 L Potassium 5.7 H Chloride 99 Carbon Dioxide 26.0 Anion Gap 9 BUN 53 H Creatinine 9.86 H* Est GFR (MDRD) Af Amer 8 L Est GFR (MDRD) Non-Af 6 L BUN/Creatinine Ratio 5.4 L Glucose 102 Lactic Acid 0.8 Calcium 9.3 Total Bilirubin 0.70 AST 57 H ALT 20 Alkaline Phosphatase 99 Total Protein 9.1 H Albumin 2.7 L Globulin 6.4 H Albumin/Globulin Ratio 0.4 L POC Glucose 98 Radiography Chest X-Ray - ED: 1 View and Read by ED Physician (1934. Cardiomegaly, findings consistent with fluid overload/congestive heart failure with cephalization, curly B-lines and increased interstitial markings right side. There is no abnormality [place] structures. This was compared to most recent x-ray during will have recent admission. These finding) Diagnostic Testing: Clinical Impression(s) from Imaging Studies Chest X-Ray 03/28/24 19:12 IMPRESSION: No acute findings. Mild cardiac enlargement. Electronically Signed: Keara Mistry MD at 20:08 EDT , Brain CT 03/28/24 19:54 IMPRESSION: Normal unenhanced CT scan of the brain. Electronically Signed: Michael Laguerre MD at 21:06 EDT , Abdomen/Pelvis CT 03/28/24 21:47 IMPRESSION: No acute abnormality. Electronically Signed: Michael Laguerre MD at 23:18 EDT , Treatment and Re-Evaluation :: I was informed at 195 the patient's blood pressure is elevated to 235/85. His mental status continues to be altered. Since he is on anticoagulant will obtain CT of the head to rule out intracranial bleed. Since he is diabetic we will obtain BGT to rule out hypoglycemia. Awaiting pharmacy to mix Ai solution to anesthetize left naris prior to placement of Rhino Rocket. Comments:: Patient's most recent weight was 136.1 kg. After discussion with hospitalist, Dr. Olga Moore plan is to restart the ciprofloxacin, meropenem and vancomycin based on Dr. Medeiros's last documented note. Apparently patie nt has not made dialysis has no IV access and did not receive his antibiotics after discharge. Procedures Other Procedures Procedure(s): Patient had recurrent bleeding from the left naris. I am unable to identify bleeding source. Suspected to be anterior based on where the blood is located. Patient's nose was anesthetized with Ai solution. A 5.5 cm Rhino Rocket was placed with some discomfort to the patient. There was no further bleeding after the balloon was inflated. Suspect patient has discomfort because he is encephalopathic and does not understand what or why I was placing a pack in his nose. Critical Care Time Critical Care Time: Yes Critical care time (excluding procedures): 30-74 minutes (31), Including time spent: (History, physical, documentation, review of discharge summary, Dr. Marti's note, prior laboratory results initiation of therapy), Discussing w/Consultants and Arranging Admission or Transfer Discharge Plan Triage Chief Complaint: Alt LOC ED Provider: Edouard Combs Dx/Rx/DC Orders Clinical Impression: Encephalopathy due to infection, Chronic kidney disease with end stage renal failure on dialysis, jail (current) use of 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, Anemia in chronic kidney disease, on chronic dialysis, Type 2 diabetes mellitus, Complicated urinary tract infection, Left-sided epistaxis, Hypertensive urgency Prescriptions: No Action atorvastatin 40 mg Tablet 40 mg PO QHS acetaminophen 325 mg Tablet 650 mg PO Q4H PRN (Reason: PAIN/FEVER) carvedilol 12.5 mg Tablet 12.5 mg PO Q12H Rx Instructions: must administer with a meal/food ascorbic acid (vitamin C) 500 mg Tablet 500 mg PO QHS bisacodyl 10 mg Suppository [address] DAILY PRN (Reason: Constipation) dextrose [Glucose Gel] 40 % Gel 15 g PO Q15M PRN (Reason: Hypoglycemia) Rx Instructions: until symptoms of low blood sugar are controlled insulin lispro [Humalog KwikPen Insulin] 100 unit/mL Insulin Pen 6 unit SUBCUT QHS Eliquis 5 mg Tablet 5 mg PO BID trazodone 50 mg Tablet 50 mg PO QHS hydralazine 25 mg Tablet 50 mg PO Q8 pantoprazole 40 mg Tablet,Delayed Release (Dr/Ec) 40 mg PO DAILY Rx Instructions: in am clotrimazole-betamethasone 1-0.05 % Cream 1 applic TOPICAL QHS Rx Instructions: apply to face tacrolimus [Prograf] 1 mg Capsule 2 mg PO Q12H midodrine 10 mg Tablet 10 mg PO MOTUTHFR Rx Instructions: TAKE 1 TAB BY MOUTH EVERY SATURDAY, SATURDAY, SATURDAY, AND SATURDAY for hypotensi on prior to dialysis Hold BP >130/90 insulin glargine [Lantus Solostar U-100 Insulin] 100 unit/mL (3 mL) Insulin Pen 11 unit SUBCUT 1700 polyethylene glycol 3350 17 gram Powder In Packet 17 g PO DAILY PRN (Reason: constipation) promethazine 12.5 mg Tablet 12.5 mg PO Q8H PRN (Reason: Nausea) ondansetron HCl 4 mg Tablet 4 mg PO Q8H PRN PRN (Reason: Nausea) Senna Plus 8.6-50 mg Capsule 1 tab-cap PO BID gabapentin 100 mg capsule 200 mg PO BID sevelamer HCl 800 mg tablet 2,400 mg PO TIDCM Rx Instructions: must administer with a meal/food levothyroxine 150 mcg tablet 150 mcg PO DAILY@0600 Patient Comments: [place] PT TAKES IN THE AM oxycodone 10 mg tablet 10 mg PO Q4H PRN (Reason: pain) 2 Days Qty: 12 0RF acetaminophen 650 mg suppository [address] Q4H PRN (Reason: fever or pain) magnesium hydroxide [Milk of Magnesia] 400 mg/5 mL suspension 30 ml PO DAILY PRN (Reason: constipation) glucagon 1 mg kit 1 mg subcut X1 PRN (Reason: hypoglycemia) Benadryl Extra Strength 2-0.1 % cream 1 applic topical Q6H PRN PRN (Reason: itching) ciclopirox 8 % solution 1 applic topical QHS Rx Instructions: right thumb insulin lispro [Humalog KwikPen Insulin] 100 unit/mL insulin pen 9 unit subcut DAILY Rx Instructions: in am escitalopram oxalate [Lexapro] 10 mg tablet 15 mg PO QHS vancomycin in 0.9 % sodium chl 1 gram/200 mL piggyback 1 g IV .see below 16 Days Rx Instructions: stop date 01/20/24. Dx: sacral osteomyelitis. Dose 750gm iv vancomycin with HD on Sat, , and . Dose 1gm iv vanc with HD on Fridays. weekly bmp, cbc, LFT, vanc trough, and esr. Fax to [phone]. B complex-vitamin C-folic acid 0.8 mg tablet 1 tab PO DAILY insulin lispro 100 unit/mL solution 11 unit subcut DAILY@1700 insulin lispro 100 unit/mL insulin pen See Protocol subcut TIDCM Protocol: 6. Sliding Scale Insulin Custom Condition: 180-200 mg/dl range Dose/Route: 2 Number of Units Condition: 201-250 Dose/Route: 3 Condition: 251-300 Dose/Route: 4 Condition: 301-350 Dose/Route: 5 Condition: 351-400 Dose/Route: 6 Condition: 401-450 Dose/Route: 7 Condition: >451 Dose/Route: call MD Protocol Text: Custom Sliding Scale amoxicillin-pot clavulanate [Augmentin] 500-125 mg tablet 1 tab PO DAILY Qty: 40 0RF Rx Instructions: Give after dialysis on HD days. tobramycin sulfate 40 mg/mL solution 150 mg IV Q24H 39 Days Rx Instructions: IV tobramycin, 150mg given with dialysis on Sat, , , and Sat. Stop date 05/06/24. Twice weekly bmp, cbc, tobramycin trough prior to HD, and esr. Fax to [phone]. Primary Care Provider: Vanessa Hutchins Referrals: Vanessa Hutchins MD [Primary Care Provider] - Print Language: Vietnamese Disposition Disposition: Acute Care Hospital [facility]
--- NOTE | 2024-03-28 19:12 | RAD_ITS ---
INDICATION: RALES RIGHT SIDE EXAMINATION/TECHNIQUE: X-RAY - XR Chest 1 View COMPARISON: 03/22/2024. FINDINGS: LINES/DEVICES: None. LUNGS: No consolidation, edema or effusion. No pneumothorax. MEDIASTINUM AND CARDIOVASCULAR STRUCTURES: Cardiac silhouette is mildly enlarged for AP film. Central airways and mediastinal contour are unremarkable. BONES AND SOFT TISSUES: Unremarkable. RAD/Chest 1 View (Portable) IMPRESSION: No acute findings. Mild cardiac enlargement. Electronically Signed: Keara Mistry MD at 20:08 EDT Reading Location ID and State: [id number] / Tel , Service support ,
[2024-03-28 19:16] LABS: Absolute Lymphocyte Count 1.99 X10^3/uL (0.83-4.51); Absolute Neutrophil Count 7.9 X10^3/uL (2.0-7.7); Basophil# 0.09 X10^3/uL; Basophil% 0.8 % (0-1); Eosinophil# 0.32 X10^3/uL; Eosinophils% 2.9 % (0-5); Hematocrit 31.3 % (40-54); Hemoglobin 9.4 g/dL (13.0-16.5); Lymphocyte # 1.99 X10^3/ul (0.83-4.51); Lymphocyte % 17.9 % (19-41); Mean Corpuscular Hgb 26.9 pg (27.0-32.0); Mean Corpuscular Volume 89.7 fL (80-94); Monocyte# 0.83 X10^3/uL; Monocyte% 7.5 % (0-10); NRBC Flagged by Analyzer 0 % (0-5); Neutrophil # 7.86 X10^3/uL (2.7-7.7); Neutrophil % 70.5 % (47-70); Platelet Count 192 K/mm3 (150-450); RBC Distribution Width SD 59.4 fl (35.1-43.9); Red Blood Count 3.49 M/mm3 (4.6-6.2); White Blood Count 11.1 K/mm3 (4.4-11.0)
--- NOTE | 2024-03-28 19:29 | ED.RN ---
PHARMACY CALLED FOR DR. FOY'S MIX. FELECIA INFORMED ME IT WILL BE AWHILE, BUT I WILL MIX IT UP AND SEND IT. DOCTOR GORDON NOTIFIED.
[2024-03-28 19:33] LABS: ALB/GLOB Ratio 0.4 RATIO (0.9-2.4); AST(SGOT) 57 U/L (15-37); Alanine Aminotransfer ALT/SGPT 20 U/L (16-61); Albumin, Serum 2.7 g/dL (3.2-5.0); Alkaline Phosphatase 99 U/L (45-117); Anion Gap 9 (5-15); BUN 53 mg/dL (7-18); BUN/Creat Ratio 5.4 RATIO (10-20); Calcium,Total 9.3 mg/dL (8.5-10.1); Chloride 99 mmol/L (98-107); Creatinine, Serum 9.86 mg/dL (0.70-1.30); EST Glomerular Filtration Rate 6 mL/min (>60); Est Glom Filt Rate - Afr Amer 8 mL/min (>60); Globulin 6.4 g/dL (2.2-4.2); Glucose 102 mg/dL (74-106); Potassium 5.7 mmol/L (3.5-5.1); Protein, Total 9.1 g/dL (6.4-8.2); Sodium Level 134 mmol/L (136-145)
[2024-03-28 19:40] LABS: Lactic Acid 0.8 mmol/L (0.4-1.9)
--- NOTE | 2024-03-28 19:54 | CT_ITS ---
STUDY: CT BRAIN WITHOUT CONTRAST REASON FOR EXAM: Male, 38 years old. Acute altered mental status, hypertension, on 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 RADIATION DOSAGE (If Supplied By Facility): CTDIvol = ( 44.99 ) mGy, DLP = ( 863.60 ) mGycm TECHNIQUE: Transaxial CT imaging of the brain was performed without administration of intravenous contrast material. Individualized dose optimization techniques were used for this CT. COMPARISON: 03/22/2024 FINDINGS: Suspect left globe prosthesis. Normal calvarium. Normal size ventricles and extra-axial spaces for the patient''s age. Normal white matter tracts of the cerebral hemispheres. Normal basal ganglia and thalami. Normal brainstem. Normal cerebellum. There is no intracranial hemorrhage. There are no findings of an acute ischemic infarction. There is mucoperiosteal inflammatory disease of the paranasal sinuses consistent with moderate chronic sinusitis. CT/Brain/Head without Contrast IMPRESSION: Normal unenhanced CT scan of the brain. Electronically Signed: Michael Laguerre MD at 21:06 EDT ,
[2024-03-28] MEDS: hydrALAZINE 20 MG/ML Vial 10 MG IV (20:07)
[2024-03-28 20:35] LABS: Bedside Glucose 98 mg/dL (74-106)
--- NOTE | 2024-03-28 21:47 | CT_ITS ---
STUDY: CT ABDOMEN AND PELVIS WITH CONTRAST REASON FOR EXAM: Male, 38 years old. Abdominal pain, no flatulence or stool output from RADIATION DOSAGE (If Supplied By Facility): CTDIvol = ( 13.75 ) mGy, DLP = ( 1602.36 ) mGycm TECHNIQUE: Transaxial images were obtained from the dome of the diaphragm to the symphysis pubis without oral contrast. 75ml -ISOVUE 370 was administered. Sagittal and coronal images were reconstructed. Individualized dose optimization techniques were used for this CT. COMPARISON: 03/22/2024 FINDINGS: Some left lower lobe atelectasis. Cardiomegaly. Normal liver. Normal gallbladder and extrahepatic biliary system. Normal spleen. Normal pancreas. Normal bilateral adrenal glands. There is mild cortical atrophy of the right kidney, consistent with chronic medical renal disease. There is mild cortical atrophy of the left kidney, consistent with chronic medical renal disease. Right pelvic renal transplant without hydronephrosis. Normal visualized stomach. Normal small intestine. Left lower quadrant colostomy. There is non-visualization of the appendix. Normal abdominal aorta. Normal inferior vena cava. Normal retroperitoneum. Suprapubic catheter within the collapsed bladder. Deep decubitus ulcer of the overlying the left ischial tuberosity with bony proliferation likely from chronic osteomyelitis. Normal osseous structures. CT/Abdomen/Pelvis WITH Contrast IMPRESSION: No acute abnormality. Electronically Signed: Michael Laguerre MD at 23:18 EDT ,
[2024-03-29] VITALS (14 sets, daily range): BP systolic 164–190; BP diastolic 41–112; PULSE 16–98; RESP 10–22; TEMP 36.4–37; O2SAT 91–100; BMI 38.2
--- NOTE | 2024-03-29 00:07 | PCM.HP.STD ---
HPI - General General Date of Admission: 03/29/24 Date of Service: 03/29/24 Chief Complaint: Confusion, decreased responsiveness. HPI Narrative The patient is a 38 y/o M w/ PMHx: Obesity, Chronic normocytic anemia/AOCD, Chronic Systolic CHF, HTN, HLD, ESRD on HD T s/p failed Txp, Hypothyroidism, Depression and Anxiety, GERD, Diabetes mellitus type II w/ history of previous diabetic foot wounds, chronic left ischial/sacral wound, incomplete paraplegia following renal transplant per patient report secondary to severe clots of some sort but poor historian, s/p recent L AKA status, recently discharged 03/27/24 following lengthy admission with hypertensive emergency, hematuria with new suprapubic catheter inserted with Pseudomonas and E. coli urine culture growth, sacral decubitus ulcer concerning for osteomyelitis with CT demonstrating a large ulcer overlying left ischial tuberosity with findings consistent with osteomyelitis with wound cultures with growth of Pseudomonas, Enterobacter and ESBL E. coli in addition to overlapping blood cultures with growth of Staph capitis in addition to hyperkalemia in the setting of end-stage renal disease with associated acute encephalopathy secondary to all these processes with evaluation per plastic surgery with deferral of surgery with local wound care and wound VAC placed discharged per infectious disease with plan for 6 weeks course although difficult outpatient dosing secondary to end-stage renal disease with inpatient antibiotics including vancomycin/meropenem and ciprofloxacin transitioned upon discharge per infectious disease to IV tobramycin with HD sessions Saturday, Saturday, , Saturday at [facility] with oral Augmentin along with this as well with stop date noted 05/06/2024 who now represents to the [facility] ED on 03/28/24 with reported altered mental status sudden onset with depressed level of consciousness with concurrently noted spontaneous nosebleed from the left nare prompting skilled facility to transition him to the ED for further evaluation. Although report is very scant there is a possibility that patient has not had any antibiotics since discharge as per report he did not go to dialysis which is when he was supposed to be given the tobramycin. Workup in the ED included T98.3, heart rate 95, BP initially 165/57, respiratory rate 18, 95% on room air with BP transiently rising during ED evaluation to 238/85 with most recent repeat vitals heart rate 99, BP 152/63, respiratory rate 24, 96% on room air, CBC with WC 11.1, hemoglobin 9.4, MCV 89.7, platelet 192 with left shift, CMP with sodium 134, potassium 5.7 but noted to be moderately hemolyzed thus falsely elevated, BUN/creatinine 53/9.86, GFR 6, hepatic profile not marked appearing, chest x-ray with mild enlarged cardiac silhouette, no acute cardiopulmonary findings otherwise, CT of the brain with no acute intracranial findings, CT abdomen and pelvis with no acute intra-abdominal findings with noted still decubitus deep ulcer overlying the left ischial tuberosity with bony proliferation likely from chronic osteomyelitis and the suprapubic catheter is within the collapsed bladder. In the ED left nare with matter solution Rhino Rocket packing performed. In the ED patient ministered hydralazine 10 mg IV x 1. Discussed with ED physician and given concern the patient's not received any antibiotic therapy in order to avoid potential encephalopathy which can happen with tobramycin decision to restart previous regimen of vancomycin, meropenem and ciprofloxacin. FOR[facility]LY [facility] Medical History (Updated 03/29/24 @ 00:[address] 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 H/O deep venous thrombosis Osteomyelitis of pelvic region Lives in prison Anxiety Open wound Insulin dependent diabetes mellitus Uses wheelchair Injury of back Non-healing wound of amputation stump DM type 2, goal HbA1c < 7% 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, stage 4 Neurogenic bowel Chronic kidney disease with end stage renal failure on dialysis Kidney transplant failure Dependence on renal dialysis Pressure ulcer of left heel, unspecified stage Gastro-esophageal reflux disease without esophagitis Other pericardial effusion (noninflammatory) Other pulmonary embolism without acute cor pulmonale Hypertensive heart and chronic kidney disease with heart failure and stage 1 through stage 4 chronic kidney disease, or unspecified chronic kidney disease Depression Hyperlipemia Hypothyroidism Anemia in chronic kidney disease Neuromuscular dysfunction of bladder, unspecified Paraplegia, incomplete Other acute osteomyelitis, left ankle and foot End stage renal disease Home Medications ?Medication ?Instructions ?Recorded ?Last Taken ?Type acetaminophen 325 mg tablet 650 mg PO Q4H PRN PAIN/FEVER 01/02/23 04/21/23 History apixaban 5 mg tablet (Eliquis) 5 mg PO BID blood thinner 01/02/23 07/16/23 History ascorbic acid (vitamin C) 500 mg 500 mg PO QHS supplement 01/02/23 12/08/23 History tablet atorvastatin 40 mg tablet 40 mg PO QHS hypercholestremia 01/02/23 12/08/23 History bisacodyl 10 mg rectal suppository 10 mg ME DAILY PRN Constipation 01/02/23 Unknown History carvedilol 12.5 mg tablet 12.5 mg PO Q12H HYPERTENSION 01/02/23 12/09/23 History clotrimazole-betamethasone 1 1 applic topical QHS rash 01/02/23 07/15/23 History %-0.05 % topical cream dextrose 40 % oral gel (Glucose 15 g PO Q15M PRN Hypoglycemia 01/02/23 Unknown History Gel) hydralazine 25 mg tablet 50 mg PO Q8 hypertension 01/02/23 12/09/23 History insulin glargine 100 unit/mL (3 11 unit subcut 1700 diabetes 01/02/23 12/08/23 History mL) subcutaneous pen (Lantus Solostar U-100 Insulin) insulin lispro 100 unit/mL 6 unit subcut QHS diabetes 01/02/23 07/16/23 History subcutaneous pen (Humalog KwikPen (U-100) Insulin) midodrine 10 mg tablet 10 mg PO MOTUTHFR DIALYSIS 01/02/23 12/09/23 History ondansetron HCl 4 mg tablet 4 mg PO Q8H PRN PRN Nausea 01/02/23 Unknown History pantoprazole 40 mg tablet,delayed 40 mg PO DAILY gerd 01/02/23 12/08/23 History release polyethylene glycol 3350 17 gram 17 g PO DAILY PRN constipation 01/02/23 Unknown History oral powder packet promethazine 12.5 mg tablet 12.5 mg PO Q8H PRN Nausea 01/02/23 07/15/23 History sennosides 8.6 mg-docusate sodium 1 tab-cap PO BID Constipation 01/02/23 07/16/23 History 50 mg capsule (Senna Plus) tacrolimus 1 mg capsule, 2 mg PO Q12H immunosuppressive 01/02/23 12/09/23 History immediate-release (Prograf) trazodone 50 mg tablet 50 mg PO QHS insomnia 01/02/23 12/08/23 History gabapentin 100 mg capsule 200 mg PO BID PHANTOM PAIN 04/21/23 12/09/23 History sevelamer HCl 800 mg tablet 2,400 mg PO TIDCM ESRD 04/21/23 07/16/23 History levothyroxine 150 mcg tablet 150 mcg PO DAILY@0600 07/16/23 12/09/23 History hypothyroidism oxycodone 10 mg tablet 10 mg PO Q4H PRN pain 2 days #12 07/19/23 Unknown Rx tabs acetaminophen 650 mg rectal 650 mg ME Q4H PRN fever or pain 08/06/23 Unknown History suppository glucagon 1 mg injection kit 1 mg subcut X1 PRN hypoglycemia 08/06/23 Unknown History magnesium hydroxide 400 mg/5 mL 30 ml PO DAILY PRN constipation 08/06/23 Unknown History oral suspension (Milk of Magnesia) ciclopirox 8 % topical solution 1 applic topical QHS nail fungus 11/17/23 Unknown History insulin lispro 100 unit/mL 9 unit subcut DAILY diabetes 11/17/23 Unknown History subcutaneous pen (Humalog KwikPen (U-100) Insulin) diphenhydramine-zinc acetate 2 1 applic topical Q6H PRN PRN 12/06/23 Unknown History %-0.1 % topical cream (Benadryl itching Extra Strength) escitalopram oxalate 10 mg tablet 15 mg PO QHS depression 12/30/23 Unknown History (Lexapro) insulin lispro 100 unit/mL See Protocol subcut TIDCM 03/22/24 Unknown History subcutaneous pen insulin lispro 100 unit/mL 11 unit subcut DAILY@1700 03/22/24 Unknown History subcutaneous solution vitamin B complex-vitamin C-folic 1 tab PO DAILY 03/22/24 Unknown History acid 0.8 mg tablet amoxicillin 500 mg-potassium 1 tab PO DAILY #40 tabs 03/27/24 Unknown Rx clavulanate 125 mg tablet (Augmentin) tobramycin sulfate 40 mg/mL 150 mg (3.75 mL) IV Q24H 39 days 03/27/24 Unknown Rx injection solution aluminum-magnesium hydroxide 225 30 ml PO Q4H PRN GI DISTRESS 03/29/24 Unknown History mg-200 mg/5 mL oral suspension guaifenesin 100 mg/5 mL oral 200 mg PO Q4H PRN cough 03/29/24 Unknown History liquid (Adult Tussin Chest Congestion) hydralazine 50 mg tablet 50 mg PO TID 03/29/24 Unknown History insulin glargine 100 unit/mL 11 unit subcut QHS 03/29/24 Unknown History subcutaneous solution (Lantus U-100 Insulin) Allergy/AdvReac Type Severity Reaction Status Date / Time No Known Allergies Allergy Verified 02/18/24 04:45 Family History Mother Hypertension Diabetes Father Hypertension Diabetes Surgical History History of kidney transplant S/P unilateral above knee amputation S/P foot surgery S/P colostomy Social History housing: prison Smoking Status: Never smoker alcohol intake: never substance use type: does not use ROS Review of Systems ROS Unobtainable: due to encephalopathy Vital Signs Vital Signs Vital Signs: 03/28/24 17:45 03/28/24 17:49 03/28/24 17:53 Temperature 98.3 F 98.3 F Temperature Source Oral Oral Pulse Rate 95 95 Respiratory Rate 18 18 Respiratory Effort Normal Respiratory Pattern Normal Blood Pressure 165/57 H 165/57 H Blood Pressure Mean 93 93 Pulse Ox 95 95 Oxygen Delivery Method Room Air Room Air 03/28/24 18:38 03/28/24 18:49 03/28/24 19:00 Temperature 98.4 F Temperature Source Temporal Pulse Rate 96 96 96 Respiratory Rate 20 H 20 H 18 Respiratory Effort Respiratory Pattern Blood Pressure 159/69 H 168/99 H 190/105 H Blood Pressure Mean 99 122 133 Pulse Ox 96 94 94 Oxygen Delivery Method Room Air Room Air Room Air 03/28/24 19:16 03/28/24 19:30 03/28/24 19:45 Temperature Temperature Source Pulse Rate 96 93 93 Respiratory Rate 22 H 13 10 L Respiratory Effort Respiratory Pattern Blood Pressure 241/97 H 238/85 H 212/80 H Blood Pressure Mean 133 124 112 Pulse Ox 93 95 Oxygen Delivery Method Room Air 03/28/24 19:49 03/28/24 20:00 03/28/24 20:00 Temperature 98.4 F Temperature Source Oral Pulse Rate 93 92 92 Respiratory Rate 14 17 17 Respiratory Effort Respiratory Pattern Blood Pressure 238/85 H 192/71 H Blood Pressure Mean 136 104 Pulse Ox 98 94 94 Oxygen Delivery Method Room Air Room Air 03/28/24 20:15 03/28/24 20:25 03/28/24 20:30 Temperature Temperature Source Pulse Rate 97 97 Respiratory Rate 4 L 16 Respiratory Effort Respiratory Pattern Blood Pressure 205/100 H Blood Pressure Mean 128 Pulse Ox 100 97 Oxygen Delivery Method 03/28/24 20:36 03/28/24 20:45 03/28/24 21:00 Temperature Temperature Source Pulse Rate 99 98 99 Respiratory Rate 22 H 18 24 H Respiratory Effort Respiratory Pattern Blood Pressure 180/58 H 180/59 H 152/63 H Blood Pressure Mean 89 91 92 Pulse Ox 97 97 96 Oxygen Delivery Method Room Air 03/28/24 21:00 03/28/24 21:15 03/28/24 21:30 Temperature Temperature Source Pulse Rate 98 99 98 Respiratory Rate 20 H 16 20 H Respiratory Effort Respiratory Pattern Blood Pressure 152/63 H 161/62 H 116/55 L Blood Pressure Mean 86 87 64 Pulse Ox 97 Oxygen Delivery Method 03/28/24 21:45 03/28/24 22:00 03/28/24 22:43 Temperature Temperature Source Pulse Rate 100 98 Respiratory Rate 23 H 14 13 Respiratory Effort Respiratory Pattern Blood Pressure 177/108 H 158/59 H Blood Pressure Mean 119 92 Pulse Ox 98 98 95 Oxygen Delivery Method Room Air 03/28/24 22:45 03/28/24 23:00 Temperature Temperature Source Pulse Rate 93 Respiratory Rate 9 L 17 Respiratory Effort Respiratory Pattern Blood Pressure 158/59 H 163/59 H Blood Pressure Mean 86 85 Pulse Ox 96 99 Oxygen Delivery Method Room Air Room Air Weight Weight: 299 lb 13.259 oz Body Mass Index (BMI) 40.6 Physical Exam Narrative Physical Examination: General: Awakens to stimuli, answering some questions but no markedly alert, not able to answer orientation questions, following some commands, laying in the ED bed, encephalopathic, ill-appearing. Skin: Normal color, normal turgor, no icterus, no cyanosis except notable for left ischial/sacral wound with dressings in place, Gio suprapubic catheter skin irritation, various staged ecchymoses, abrasions. HEENT: AT/NC, EOMI, PERRLA, dry MM, clamp in place around nose with bright red blood dried around his naris and mouth secondary to recent acute epistaxis, no carotid bruits or JVD noted. Lungs: Diminished, greater bases, no evidence of any distress, no rales, ronchi or wheezing. Heart: Regular rate with regular rhythm; no gallop, rub audibl. Abdomen: Soft, obese, NTTP, colostomy present left lower quadrant, suprapubic catheter in place with Gio insertion site irritation, mildly hyperactive BS, difficult to appreciated distention and HSM given habitus. Extremities: No cyanosis, no clubbing, left upper extremity with dialysis access/AVF, see skin, LLE s/p BKA. Neurological: Awakens to stimuli, answering some questions but no markedly alert, not able to answer orientation questions, following some commands, laying in the ED bed, encephalopathic, ill-appearing, cognitive function not baseline intact; pupils equally reactive to light and accommodation, cranial nerves grossly normal but difficult exam given encephalopathy, functional paraplegic, chronic paresthesias to the lower extremities, strength severely global decreased secondary to acute presentation and underlying comorbidities. Psychiatric: Affect appears flat, lethargic, no acute evidence of depressive or anxiety feelings but does have underlying history. Results Lab / Micro Data 03/28/24 19:08 03/28/24 19:08 Labs: Laboratory Results - last 24 hr 03/28/24 19:08: WBC 11.1 H, RBC 3.49 L, Hgb 9.4 L, Hct 31.3 L, MCV 89.7, MCH 26.9 L, MCHC 30.0 L, RDW Std Deviation 59.4 H, RDW Coeff of Shanta 18.0 H, Plt Count 192, MPV 11.0, Immature Gran % (Auto) 0.400, Neut % (Auto) 70.5 H, Lymph % (Auto) 17.9 L, [place] % (Auto) 7.5, Eos % (Auto) 2.9, Baso % (Auto) 0.8, Absolute Neuts (auto) 7.9 H, Absolute Lymphs (auto) 1.99, Nucleated RBC % 0, Sodium 134 L, Potassium 5.7 H, Chloride 99, Carbon Dioxide 26.0, Anion Gap 9, BUN 53 H, Creatinine 9.86 H*, Est GFR (MDRD) Af Amer 8 L, Est GFR (MDRD) Non-Af 6 L, BUN/Creatinine Ratio 5.4 L, Glucose 102, Lactic Acid 0.8, Calcium 9.3, Total Bilirubin 0.70, AST 57 H, ALT 20, Alkaline Phosphatase 99, Total Protein 9.1 H, Albumin 2.7 L, Globulin 6.4 H, Albumin/Globulin Ratio 0.4 L 03/28/24 20:13: POC Glucose 98 Imaging Radiology Impression Chest X-Ray 03/28/24 19:12 IMPRESSION: No acute findings. Mild cardiac enlargement. Electronically Signed: Keara Mistry MD at 20:08 EDT , Brain CT 03/28/24 19:54 IMPRESSION: Normal unenhanced CT scan of the brain. Electronically Signed: Michael Laguerre MD at 21:06 EDT , Abdomen/Pelvis CT 03/28/24 21:47 IMPRESSION: No acute abnormality. Electronically Signed: Michael Laguerre MD at 23:18 EDT , Assessment & Plan Assessment/Plan (1) Left-sided epistaxis: (2) Encephalopathy due to infection: (3) Hypertensive urgency: PLAN: Plan The patient is a 38 y/o M w/ PMHx: Obesity, Chronic normocytic anemia/AOCD, Chronic Systolic CHF, HTN, HLD, ESRD on HD T s/p failed Txp, Hypothyroidism, Depression and Anxiety, GERD, Diabetes mellitus type II w/ history of previous diabetic foot wounds, chronic left ischial/sacral wound, incomplete paraplegia following renal transplant per patient report secondary to severe clots of some sort but poor historian, s/p recent L AKA status, recently discharged 03/27/24 following lengthy admission with suspected acutely infected decubitus/sacral ulcer with acute on chronic potential osteomyelitis and complicated urinary tract infection who now represents to the [facility] ED on 03/28/24 with reported altered mental status sudden onset with depressed level of consciousness with concurrently noted spontaneous nosebleed from the left nare prompting skilled facility to transition him to the ED for further evaluation. #1. Acute Encephalopathy, possibly multifactorial etiologies, potentially secondary to hypertensive emergency, potentially Medication related given recent Transition to IV Torbramycin but is uncertain the actually has had any doses and potentially could be because he is missed all antibiotic therapy therefore encephalopathy possibly secondary to untreated acute ischial osteomyelitis (AcB, PsA, esbl ecoli) in addition to Acute Complicated UTI due to chronic indwelling suprapubic catheter (PsA, GNR): BP significantly improved since initial ED arrival, will maintain on PCU in case of further IV hypertensive medication needs as could be contributing to the situation, will hold tobramycin and transition back to IV vancomycin, meropenem and ciprofloxacin holding both oral Augmentin and tobramycin as tobramycin can cause encephalopathy/confusion but again it is uncertain if he actually got any of these doses and a lack of any treatment of his current acute infections could certainly be a source of his encephalopathy, will trend CBC, CMP, ESR and CRP requested, will reconsult infectious disease as well as plastic surgery to continue to follow, offload, wound RN consulted, continue dressing changes in the interim per previous surgery recommendations, PT/OT/case management consulted for discharge planning. #2. Acute left nare anterior epistaxis: We will continue Ai solution packing initiated per ED, monitor for any recurrent bleeding, ice packs if needed, pledgets if necessary, temporarily holding Eliquis with resumption once appropriate, trend CBC. Will need to re-assess for packing removal in AM and will be continued on abx regimen as noted above. #3. Hypertension, uncontrolled with concern for possible hypertensive emergency, improved: As noted BP in the ED significantly elevated but responded very quickly to hydralazine 10 mg IV x 1, certainly could be contributing to patient confusion, repeat BP in the ED following this regimen more appropriate, will continue patient home Coreg as long as oral intake safe and will have IV as needed hydralazine. #4. ESRD on HD status post prior failed renal transplant: We will continue patient HD regimen of Saturday/Saturday//Saturday, consult nephrology. Will continue home Prograf as long as oral intake safe. Will need to clarify list as currently does not have any prednisone or CellCept listed although in the past had primarily only been on tacrolimus and prednisone. #5. HFrecoveredEF, prior reported reduced EF: 03/22/24 ECHO w/ moderate concentric LVH, mildly dilated LV, LV EF 50%, diastolic function indeterminate, mildly enlarged LA, mildly dilated aortic root. Given acute epistaxis holding Eliquis, continue statin and Coreg regimen as long as oral intake safe otherwise will hold. Ongoing HD as noted. #6. Diabetes mellitus type II w/ history of chronic wounds, chronic neuropathy, status post left AKA, chronic ischial/coccyx ulcers as noted above: Hold oral home regimen, continue home insulin regimen, ADA diet once assure oral intake safe, accu checks w/ ISS, continue home gabapentin regimen as long as oral intake safe. #7. Chronic normocytic anemia/AOCD: Admission hemoglobin 9.4, MCV 89.7, prior baseline more recently 8-9, stable, continue to trend. #8. Hyperlipidemia: We will continue patient on statin therapy as long as oral intake safe otherwise will hold. #9. Hypothyroidism: We will continue patient home levothyroxine regimen as long as oral intake safe otherwise will hold.. #10. Anxiety and depression: We will continue patient on escitalopram regimen as long as oral intake safe otherwise will hold.. #11. Obesity: Weight loss and lifestyle changes encouraged. #12. GERD: Will continue home PPI regimen as long as oral intake safe otherwise will hold and transition to IV PPI. #13. History of VTE: Patient reported extensive clot history as etiology for functional paraplegia to lower extremities, temporarily holding Eliquis given epistaxis but resume once assured this is resolved. #14. DVT prophylaxis: Temporarily holding Eliquis given epistaxis, resume once assure improved. #15. CODE STATUS: Full Code per facility paperwork. Charges/Coding Visit Charges Inpatient E&M: 74749 Init Hosp L3
[2024-03-29] MEDS: Meropenem 1 GM in 0.9% Normal Saline (100mL MB+) 100 ML IV ×2 (00:15→14:05)
[2024-03-29] MEDS: Mixture 30 ML Bottle 15 ML TOPICAL (00:28)
[2024-03-29] MEDS: Vancomycin HCl 2,000 MG in 0.9% Normal Saline (500mL Bag) 500 ML 250 MG IV (00:37)
[2024-03-29 00:45] LABS: Erythrocyte Sedimentation Rate 76 mm/hr (0-20)
[2024-03-29 01:26] LABS: Magnesium 2.2 mg/dL (1.6-2.6); Phosphorus 6.4 mg/dL (2.5-4.9)
[2024-03-29] MEDS: 0.9% Normal Saline (1000mL) 1,000 ML 100 ML IV (01:53)
[2024-03-29] MEDS: hydrALAZINE 20 MG/ML Vial 10 MG IV ×2 (01:54→16:49)
[2024-03-29] MEDS: Ciprofloxacin 400 MG/200 ML BAG 200 MG IV ×2 (04:07→11:44)
[2024-03-29 04:33] LABS: Squamous Epithelial Cells - UA 0 SEEN /hpf (0-5)
[2024-03-29 04:50] LABS: Color, Urine Brown (Yellow); Glucose, Dipstick Normal (Normal); Ketone-Dipstick Negative (Negative); Leukocyte Esterase-Dipstick 500 /ul (Negative); Nitrite-Dipstick Positive (Negative); Occult Blood-Urine 250 /ul (Negative); Protein-Dipstick 500 mg/dl (Negative); Urine Bilirubin Dipstick Negative (Negative); Urine Clarity Turbid (Clear); Urine Urobilinogen Normal (Normal)
[2024-03-29 04:52] LABS: Bacteria 2+ /hpf (None Seen); Mucous, Urine 1+ /hpf (<or=2+); Red Blood Cells-Urine > 100 SEEN /hpf (0-5); White Blood Cells >100 SEEN /hpf (0-5)
--- NOTE | 2024-03-29 07:52 | PCM.RX.CS ---
Consult Antibiotic Management Pharmacy has been consulted to manage selected antibiotic: Vancomycin Type of Intervention Type of Consult: New start Suspected Infection Suspected Infection: Osteomyelitis Labs Labs: Sodium 134 mmol/L (136-145) L 03/28/24 19:08 Potassium 5.7 mmol/L (3.5-5.1) H 03/28/24 19:08 Chloride 99 mmol/L (98-107) 03/28/24 19:08 Carbon Dioxide 26.0 mmol/L (21.0-32.0) 03/28/24 19:08 Anion Gap 9 (5-15) 03/28/24 19:08 BUN 53 mg/dL (7-18) H 03/28/24 19:08 Creatinine 9.86 mg/dL (0.70-1.30) H* 03/28/24 19:08 Est GFR (MDRD) Af Amer 8 mL/min (>60) L 03/28/24 19:08 Est GFR (MDRD) Non-Af 6 mL/min (>60) L 03/28/24 19:08 BUN/Creatinine Ratio 5.4 RATIO (10-20) L 03/28/24 19:08 Glucose 102 mg/dL (74-106) 03/28/24 19:08 Goal Trough Goal Trough: 15-20 mcg/mL Pharmacy Plan for Drug Dosing Pharmacy Plan for Drug Dosing: NEW START IV VANCOMYCIN Consulting Physician: Dr. Moore Indication: Osteomyelitis Goal Trough: 15-20 SrCr: sCr 9.86 / HD Sat/Sat//Sat Comments: Received 2000mg x1 in ED 03/29/24 00:37 Vancomycin Dose: 1000mg x1 following HD session 03/30/24 Pending Level: Random level @ 06:00 03/31/24 prior to HD session Pharmacy Service will continue to monitor and adjust dosing as required. Follow-Up Labs Follow-Up Labs: Trough: Vancomycin (03/31/24 @ 06:00 prior to HD session)
[2024-03-29 08:16] LABS: Bedside Glucose 111 mg/dL (74-106)
[2024-03-29 08:49] LABS: Absolute Lymphocyte Count 2.23 X10^3/uL (0.83-4.51); Absolute Neutrophil Count 6.6 X10^3/uL (2.0-7.7); Basophil# 0.09 X10^3/uL; Basophil% 0.9 % (0-1); Eosinophil# 0.33 X10^3/uL; Eosinophils% 3.2 % (0-5); Hematocrit 29.3 % (40-54); Hemoglobin 8.9 g/dL (13.0-16.5); Lymphocyte # 2.23 X10^3/ul (0.83-4.51); Lymphocyte % 21.6 % (19-41); Mean Corp Hgb Conc 30.4 g/dL (32-36); Mean Corpuscular Hgb 27.1 pg (27.0-32.0); Mean Corpuscular Volume 89.1 fL (80-94); Mean Platelet Vol. 10.5 fl (6.2-12.0); Monocyte# 0.97 X10^3/uL; Monocyte% 9.4 % (0-10); NRBC Flagged by Analyzer 0 % (0-5); Neutrophil # 6.62 X10^3/uL (2.7-7.7); Platelet Count 191 K/mm3 (150-450); RBC Distribution Width CV 17.7 % (11.6-14.6); RBC Distribution Width SD 58.2 fl (35.1-43.9); Red Blood Count 3.29 M/mm3 (4.6-6.2); White Blood Count 10.3 K/mm3 (4.4-11.0)
[2024-03-29 09:58] LABS: ALB/GLOB Ratio 0.4 RATIO (0.9-2.4); AST(SGOT) 16 U/L (15-37); Alanine Aminotransfer ALT/SGPT 14 U/L (16-61); Albumin, Serum 2.6 g/dL (3.2-5.0); Alkaline Phosphatase 96 U/L (45-117); Anion Gap 14 (5-15); BUN 60 mg/dL (7-18); BUN/Creat Ratio 5.7 RATIO (10-20); Calcium,Total 8.8 mg/dL (8.5-10.1); Chloride 101 mmol/L (98-107); EST Glomerular Filtration Rate 6 mL/min (>60); Est Glom Filt Rate - Afr Amer 7 mL/min (>60); Estimated Creatinine Clearance 13.34 ml/min; Globulin 5.9 g/dL (2.2-4.2); Glucose 98 mg/dL (74-106); Potassium 4.9 mmol/L (3.5-5.1); Protein, Total 8.5 g/dL (6.4-8.2); Sodium Level 137 mmol/L (136-145)
[2024-03-29] MEDS: hydrALAZINE 50 MG Tablet PO ×2 (11:35→21:38)
[2024-03-29] MEDS: Carvedilol 12.5 MG Tablet PO ×2 (11:35→21:39)
[2024-03-29] MEDS: Tacrolimus Anhydrous 1 MG Capsule 2 MG PO ×2 (11:36→21:45)
[2024-03-29] MEDS: Pantoprazole Sodium 40 MG Tablet PO (11:36)
[2024-03-29] MEDS: SEVELAMER CARBONATE 800 MG TABLET 2400 MG PO (11:36)
[2024-03-29] MEDS: 0.9% Normal Saline (250mL Bag) 250 ML IV (11:47)
--- NOTE | 2024-03-29 12:33 | PN.RENAL_ITS ---
Subjective Subjective Consult received -full note to follow -discussed with RN, chart reviewed -ESRD recently discharge from hospital -now admitted for change in mentation -electrolytes stable today, cxr no volume overload -will arrange HD for tomorrow -abx per primary team please call [phone] with any concerns. Objective Data Objective Data Vital Signs: Vital Signs Temp Pulse Resp BP Pulse Ox O2 Del Method 98.6 F 95 18 185/77 H 94 Room Air 03/29/24 11:32 03/29/24 11:35 03/29/24 11:32 03/29/24 11:32 03/29/24 11:32 03/29/24 11:32 Oxygen Delivery Method Room Air Weight: 128.3 kg Body Mass Index (BMI) 38.2 Intake & Output: Intake and Output for Last 24 Hours 03/27/24 03/28/24 03/29/24 23:59 23:59 23:59 Intake Total 1571.77 / 1571.77 Output Total Balance 1541.77 / 1541.77 Lab / Micro Data 03/29/24 08:35 03/29/24 08:35 Labs: Laboratory Results - last 24 hr 03/28/24 19:08: WBC 11.1 H, RBC 3.49 L, Hgb 9.4 L, Hct 31.3 L, MCV 89.7, MCH 26.9 L, MCHC 30.0 L, RDW Std Deviation 59.4 H, RDW Coeff of Shanta 18.0 H, Plt Count 192, MPV 11.0, Immature Gran % (Auto) 0.400, Neut % (Auto) 70.5 H, Lymph % (Auto) 17.9 L, [place] % (Auto) 7.5, Eos % (Auto) 2.9, Baso % (Auto) 0.8, Absolute Neuts (auto) 7.9 H, Absolute Lymphs (auto) 1.99, Nucleated RBC % 0, ESR 76 H, S odium 134 L, Potassium 5.7 H, Chloride 99, Carbon Dioxide 26.0, Anion Gap 9, BUN 53 H, Creatinine 9.86 H*, Est GFR (MDRD) Af Amer 8 L, Est GFR (MDRD) Non-Af 6 L, BUN/Creatinine Ratio 5.4 L, Glucose 102, Lactic Acid 0.8, Calcium 9.3, P hosphorus 6.4 H, Magnesium 2.2, Total Bilirubin 0.70, AST 57 H, ALT 20, Alkaline Phosphatase 99, C-React Prot Ext Range 27.10 H, Total Protein 9.1 H, Albumin 2.7 L, Globulin 6.4 H, Albumin/Globulin Ratio 0.4 L 03/28/24 20:13: POC Glucose 98 03/29/24 04:07: Urine Color Brown, Urine Clarity Turbid, Urine pH 7.0, Ur Specific [place] 1.010, Urine Protein 500 H, Urine Glucose (UA) Normal, Urine Ketones Negative, Urine Occult Blood 250 H, Urine Nitrite Positive H, Urine Bilirubin Negative, Urine Urobilinogen Normal, Ur Leukocyte Esterase 500 H, Urine RBC > 100 SEEN, Urine WBC >100 SEEN, Ur Squamous Epith Cells 0 SEEN, Urine Bacteria 2+, Urine Mucus 1+ 03/29/24 07:56: POC Glucose 111 H 03/29/24 08:35: WBC 10.3, RBC 3.29 L, Hgb 8.9 L, Hct 29.3 L, MCV 89.1, MCH 27.1, MCHC 30.4 L, RDW Std Deviation 58.2 H, RDW Coeff of Shanta 17.7 H, Plt Count 191, MPV 10.5, Immature Gran % (Auto) 0.900, Neut % (Auto) 64.0, Lymph % (Auto) 21.6, [place] % (Auto) 9.4, Eos % (Auto) 3.2, Baso % (Auto) 0.9, Absolute Neuts (auto) 6.6, Absolute Lymphs (auto) 2.23, Nucleated RBC % 0, Sodium 137, Potassium 4.9, Chloride 101, Carbon Dioxide 22.0, Anion Gap 14, BUN 60 H, Creatinine 10.60 H*, Estim Creat Clear Calc 13.34, Est GFR (MDRD) Af Amer 7 L, Est GFR (MDRD) Non-Af 6 L, BUN/Creatinine Ratio 5.7 L, Glucose 98, Calcium 8.8, Total Bilirubin 0.70, AST 16, ALT 14 L, Alkaline Phosphatase 96, Total Protein 8.5 H, Albumin 2.6 L, G lobulin 5.9 H, Albumin/Globulin Ratio 0.4 L Radiography Diagnostic Testing: Radiology Impression Chest X-Ray 03/28/24 19:12 IMPRESSION: No acute findings. Mild cardiac enlargement. Electronically Signed: Keara Mistry MD at 20:08 EDT , Brain CT 03/28/24 19:54 IMPRESSION: Normal unenhanced CT scan of the brain. Electronically Signed: Michael Laguerre MD at 21:06 EDT , Abdomen/Pelvis CT 03/28/24 21:47 IMPRESSION: No acute abnormality. Electronically Signed: Michael Laguerre MD at 23:18 EDT ,
[2024-03-29 12:46] LABS: Bedside Glucose 94 mg/dL (74-106)
--- NOTE | 2024-03-29 14:49 | PN_ITS ---
Subjective Subjective Patient seen and examined. He was just discharged a couple of days ago, but was subsequently brought back to the ED on account of altered mental status. He also had a nosebleed in the ED and this was packed. Patient seen and examined this morning. He still remains lethargic. He was bleeding from the left nostril despite the packing being in place. He was lethargic and so I could not really do any review of systems. He has remained hemodynamically stable. Objective Data Objective Data Vital Signs: Vital Signs Temp Pulse Resp BP Pulse Ox O2 Del Method 98.6 F 95 18 185/77 H 94 Room Air 03/29/24 11:32 03/29/24 11:35 03/29/24 11:32 03/29/24 11:32 03/29/24 11:32 03/29/24 11:32 Oxygen Delivery Method Room Air Weight: 282 lb 13.649 oz Body Mass Index (BMI) 38.2 Intake & Output: Intake and Output for Last 24 Hours 03/27/24 03/28/24 03/29/24 23:59 23:59 23:59 Intake Total 1788.27 / 1788.27 Output Total Balance 1758.27 / 1758.27 Lab / Micro Data 03/29/24 08:35 03/29/24 08:35 Labs: Laboratory Results - last 24 hr 03/28/24 19:08: WBC 11.1 H, RBC 3.49 L, Hgb 9.4 L, Hct 31.3 L, MCV 89.7, MCH 26.9 L, MCHC 30.0 L, RDW Std Deviation 59.4 H, RDW Coeff of Shanta 18.0 H, Plt Count 192, MPV 11.0, Immature Gran % (Auto) 0.400, Neut % (Auto) 70.5 H, Lymph % (Auto) 17.9 L, [place] % (Auto) 7.5, Eos % (Auto) 2.9, Baso % (Auto) 0.8, Absolute Neuts (auto) 7.9 H, Absolute Lymphs (auto) 1.99, Nucleated RBC % 0, ESR 76 H, S odium 134 L, Potassium 5.7 H, Chloride 99, Carbon Dioxide 26.0, Anion Gap 9, BUN 53 H, Creatinine 9.86 H*, Est GFR (MDRD) Af Amer 8 L, Est GFR (MDRD) Non-Af 6 L, BUN/Creatinine Ratio 5.4 L, Glucose 102, Lactic Acid 0.8, Calcium 9.3, P hosphorus 6.4 H, Magnesium 2.2, Total Bilirubin 0.70, AST 57 H, ALT 20, Alkaline Phosphatase 99, C-React Prot Ext Range 27.10 H, Total Protein 9.1 H, Albumin 2.7 L, Globulin 6.4 H, Albumin/Globulin Ratio 0.4 L 03/28/24 20:13: POC Glucose 98 03/29/24 04:07: Urine Color Brown, Urine Clarity Turbid, Urine pH 7.0, Ur Specific [place] 1.010, Urine Protein 500 H, Urine Glucose (UA) Normal, Urine Ketones Negative, Urine Occult Blood 250 H, Urine Nitrite Positive H, Urine Bilirubin Negative, Urine Urobilinogen Normal, Ur Leukocyte Esterase 500 H, Urine RBC > 100 SEEN, Urine WBC >100 SEEN, Ur Squamous Epith Cells 0 SEEN, Urine Bacteria 2+, Urine Mucus 1+ 03/29/24 07:56: POC Glucose 111 H 03/29/24 08:35: WBC 10.3, RBC 3.29 L, Hgb 8.9 L, Hct 29.3 L, MCV 89.1, MCH 27.1, MCHC 30.4 L, RDW Std Deviation 58.2 H, RDW Coeff of Shanta 17.7 H, Plt Count 191, MPV 10.5, Immature Gran % (Auto) 0.900, Neut % (Auto) 64.0, Lymph % (Auto) 21.6, [place] % (Auto) 9.4, Eos % (Auto) 3.2, Baso % (Auto) 0.9, Absolute Neuts (auto) 6.6, Absolute Lymphs (auto) 2.23, Nucleated RBC % 0, Sodium 137, Potassium 4.9, Chloride 101, Carbon Dioxide 22.0, Anion Gap 14, BUN 60 H, Creatinine 10.60 H*, Estim Creat Clear Calc 13.34, Est GFR (MDRD) Af Amer 7 L, Est GFR (MDRD) Non-Af 6 L, BUN/Creatinine Ratio 5.7 L, Glucose 98, Calcium 8.8, Total Bilirubin 0.70, AST 16, ALT 14 L, Alkaline Phosphatase 96, Total Protein 8.5 H, Albumin 2.6 L, G lobulin 5.9 H, Albumin/Globulin Ratio 0.4 L 03/29/24 11:28: POC Glucose 94 Radiography Diagnostic Testing: Radiology Impression Chest X-Ray 03/28/24 19:12 IMPRESSION: No acute findings. Mild cardiac enlargement. Electronically Signed: Keara Mistry MD at 20:08 EDT , Brain CT 03/28/24 19:54 IMPRESSION: Normal unenhanced CT scan of the brain. Electronically Signed: Michael Laguerre MD at 21:06 EDT , Abdomen/Pelvis CT 03/28/24 21:47 IMPRESSION: No acute abnormality. Electronically Signed: Michael Laguerre MD at 23:18 EDT , Physical Exam Const Orientation / Consciousness: confused and lethargic HEENT normocephalic and head/scalp atraumatic HEENT Narrative: left nasal packing in place. still having epistaxis even though packing in place Eyes PERRL and EOMs intact bilaterally Neck no lymphadenopathy and supple Lymph Lymphatic: no lymphadenopathy noted and no lymphedema noted Resp Resp Narrative: mildly diminished breath sounds bilaterally, no wheezes or crackles. On room air. Cardio regular rate, regular rhythm, S1 normal heart sound, S2 normal heart sound and no murmurs GI normal to inspection, nondistended, normoactive bowel sounds, soft to palpation, non-tender and non-distended Extremity Extremity Narrative: left BKA, right foot bandaged. Skin Skin Narrative: as under extremity Neuro Neuro Narrative: patient lethargic, weak Motor Exam: general weakness Psych Psych Narrative: lethargic, frail Assessment & Plan Assessment/Plan (1) Left-sided epistaxis: (2) Encephalopathy due to infection: PLAN: Plan #Acute encephalopathy * etiology is unclear. Was thought to be due to hypertensive emergency and probably medication related as he had been discharged recently on IV tobramycin. It however was not clear if he had received the tobramycin normal. He is also being managed for ischial osteomyelitis for which he was discharged on the IV tobramycin during the last visit. * Still remains lethargic. Currently on IV vancomycin, meropenem and ciprofloxacin which is what he was on during his last hospital admission. The oral Augmentin and tobramycin was discharged on the have been held off. Cold therapy could cause the encephalopathy. * CT of the brain showed no acute intracranial pathology. ID and plastic surgery consulted. * Patient has some encephalopathy the last time he was here for hypertensive emergency and he subsequently improved after hypertensive emergency resolved and he had dialysis. * fall precautions * Hold all before toxic meds. * #Left nasal anterior epistaxis * Patient had nasal packing done in the ED on admission. The left nasal packing was still in place but patient noted to be having hematuria around the packing. * This hospitalist wanted to place ENT consult. However per mud analysis operator there is no ENT surgeon on-call for the no doc patients. * I spoke to Dr. Benedict in the ED to ask for assistance with placing the nasal packing as I had never placed one before. Patient taken down to the ED. Under Dr. Schrader is direction and to telemetry, the left-sided nasal packing was removed and I placed the left nasal packing (rhinopocket size 5.5) soaked in tranexamic acid. * Patient currently on IV vancomycin which will help cover for any possible staph in light of concern for toxic shock syndrome with a nasal packing in place. * eliquis on hold * #Hypertension * Blood pressure was markedly elevated in the ED. He did improve after he was given IV hydralazine 10 mg x 1. On Coreg. IV hydralazine as needed #ESRD on hemodialysis * Previously had a renal transplant but it failed. Nephrology consulted for dialysis. On Prograf. #Heart failure preserved ejection fraction: Has known EF of 50%. On Coreg. ##History of DVT and PE: Eliquis on hold due to epistasis. To resume once epistasis has resolved #Type 2 diabetes mellitus with neuropathy: On Lantus. Insulin sliding scale. Accu-Cheks ACHS. #Sacral decubitus ulcer with osteomyelitis * Imaging done during most recent admission showed a large ulcer overlying the left ischial tuberosity with findings consistent with osteomyelitis. Wound cultures then grew Pseudomonas, Acinetobacter and ESBL E. coli. * ID was consulted then and has been reconsulted now. Currently on IV vancomycin, meropenem and ciprofloxacin. * Plastic surgery recommended no surgical intervention during the previous admission. Plastic surgery consulted this time and will await further recs. #Hypothyroidism: On Synthroid #Hyperlipidemia: On statin #Anxiety and depression: On escitalopram GERD: On PPI DVT prophylaxis: SCDs. Eliquis on hold due to epistasis. Total time spent on the care of the patient today 85 minutes. Charges/Coding Visit Charges Inpatient E&M: 54799 PROLNG IP/OBS E/M EA 15 MIN Procedures Hospitalists Procedures: Other Procedure - See Report ([id number]: control nasal hemorrhage by packing)
[2024-03-29] MEDS: 0.9% Saline Lock 10 ML Syringe IV (16:48)
[2024-03-29 17:12] LABS: Bedside Glucose 109 mg/dL (74-106)
--- NOTE | 2024-03-29 17:16 | NURSING ---
CORE RESCUER NOTIFIED OF STAT COAG LABS, LAB UNABLE TO DRAW
[2024-03-29 18:04] LABS: International Normalized Ratio 1.4; Partial Thromboplast Time 34.1 Seconds (24.1-36.2)
[2024-03-29] MEDS: Gabapentin 100 MG Capsule 200 MG PO (21:30)
[2024-03-29] MEDS: Atorvastatin Calcium 40 MG Tablet PO (21:42)
[2024-03-29] MEDS: Escitalopram Oxalate 10 MG Tablet 15 MG PO (21:42)
[2024-03-29] MEDS: Clotrimazole/Betamethasone 1 Tube 1 APPLIC TOPICAL (21:43)
[2024-03-29] MEDS: Ascorbic Acid 500 MG Tablet PO (21:45)
[2024-03-29] MEDS: DAKIN'S SOL HALF STRENGTH (=0.25%) TOPICAL (21:45)
[2024-03-29 23:22] LABS: Bedside Glucose 94 mg/dL (74-106)
[2024-03-30] VITALS (17 sets, daily range): BP systolic 122–350; BP diastolic 46–100; PULSE 84–90; RESP 12–20; TEMP 36.6–36.9; O2SAT 93–99; BMI 38.5; BMI 37.4
--- NOTE | 2024-03-30 06:59 | NURSING ---
Patient refused Hydralazine after being educated on the risks of his high blood pressure. BP 187/91 Will leave med hanging out incase his is agreeable to take later.
[2024-03-30] MEDS: 0.9% Normal Saline 1,000 ML IV.SOLN. 1000 ML OPERA.SITE (07:34)
[2024-03-30] MEDS: PureFlow B 2K Dialysis Soln 1 BAG 6 BAG PF (07:35)
[2024-03-30 07:36] LABS: Absolute Lymphocyte Count 2.09 X10^3/uL (0.83-4.51); Absolute Neutrophil Count 7.1 X10^3/uL (2.0-7.7); Basophil% 0.9 % (0-1); Eosinophil# 0.51 X10^3/uL; Eosinophils% 4.7 % (0-5); Hematocrit 29.5 % (40-54); Hemoglobin 8.9 g/dL (13.0-16.5); Lymphocyte # 2.09 X10^3/ul (0.83-4.51); Lymphocyte % 19.4 % (19-41); Mean Corp Hgb Conc 30.2 g/dL (32-36); Mean Corpuscular Hgb 26.9 pg (27.0-32.0); Mean Corpuscular Volume 89.1 fL (80-94); Mean Platelet Vol. 10.3 fl (6.2-12.0); Monocyte# 0.95 X10^3/uL; Monocyte% 8.8 % (0-10); NRBC Flagged by Analyzer 0 % (0-5); Neutrophil # 7.08 X10^3/uL (2.7-7.7); Neutrophil % 65.6 % (47-70); Platelet Count 209 K/mm3 (150-450); RBC Distribution Width CV 17.6 % (11.6-14.6); RBC Distribution Width SD 57.3 fl (35.1-43.9); Red Blood Count 3.31 M/mm3 (4.6-6.2); White Blood Count 10.8 K/mm3 (4.4-11.0)
--- NOTE | 2024-03-30 08:16 | EX.PCM.CON.S ---
Assessment & Plan Assessment/Plan (1) Left ischial pressure sore: PLAN: Plan Recommending Dakpedro's wet to dry dressings 3 times daily while in house Needs pressure offloading with every 2 turns and needs a pressure offloading bed ordered (no pressure on the left ischial wound) Likely chronic osteomyelitis given that it probes down to the bone and he has had positive cultures in the past from recent drainage of abscess at bedside. No abscess on advancement imaging (reviewed) Plastics will continue to follow for the ischial wound HPI Consult Data Date of Consult: 03/30/24 HPI Narrative HPI Narrative: PER CHART REVIEW Chief Complaint: Left ischial ulcer and left AKA stump wound History of Wound: 38 year old male has a chronic ulcer of his left ischium. He was admitted at [facility] from 07/16/23 to 07/19/23 for a cough, fever and chills. Patient was admitted for acutely infected chronic left ischial/sacral wound with concern for osteomyelitis, started on IV antibiotics. He has a history of ESRD on hemodialysis. History of failed kidney transplant, chronic systolic heart failure, hypertension, hyperlipidemia, diabetes mellitus type II, left AKA, and incomplete paraplegia. He resides at [facility] where he receives his hemodialysis. He had an operative debridement of his left ischial ulcer at [facility] 2 years ago, per the patient. CT of abdomen and pelvis on 07/16/23, related to the ulcer showed There is a decubitus ulcer in the left gluteus with extension into and sclerotic and erosive involvement of the left initial tuberosity. This is concerning for osteomyelitis. Ischial wound culture obtained on 07/16/23 which was positive for Proteus mirabilis, Escherichia coli, Enterococcus gallinarum, and MRSA. ID was consulted and he was treated with Vancomycin and Zosyn IV He was discharged on Linezolid and Augmentin and has finished them. He developed a wound on his left AKA stump which is now healed. Left AKA wound culture from 08/22/23 positive for Proteus mirabilis. He was started on Augmentin and has finished them. Left ischial ulcer wound culture from 10/15/23 positive for Proteus mirabilis, MRSA, Enterococcus faecalis, Enterococcus avium Anaerobic cocci. He was treated with Augmentin and Doxycycline. Surgery 12/09/23 - Excision left ischial pressure sore, Stage IV, with partial ostectomy for osteomyelitis. Operative tissue cultures positive for Proteus mirabilis, Enterococcus faecalis, Staphylococcus epidermidis, Prevotella nanceiensis, and Anaerobic cocci. Operative bone cultures positive for Proteus mirabilis, Enterococcus raffinosus, Staphylococcus epidermidis, and Fingodia magna. ID is managing this and he is on 6 weeks of Ertapenem and Vancomycin to be dosed with hemodialysis (MTTF). Surgery 12/30/[address] Garcia for Irrigation and washout of the left buttock ischial wound with packing. Patient was having issues with bleeding. His wound VAC was stopped, he continued to have problems with bleeding, he was sent to the ED where he was evaluated by Dr. Garcia and was immediately taken to the OR. He went to the ICU for Acute blood loss anemia with hypotension and Hemorrhagic shock. He was transfused 4 units of PRBC's. He was transferred back to [facility] on 01/03/24. HPI FROM 22 MAR 2024: I saw and examined the patient this morning. Upon review of the documentation (patient is encephalopathic and can only say I, but cannot give any historical information this morning), patient has been admitted for sepsis in the setting of pneumonia, possible urinary tract infection versus drug reaction causing hematuria, and possible perineal/gluteal abscess in the setting of chronic wounds. Patient has a complicated past medical history including kidney transplant with the need for now persistent Saturday dialysis. He has a suprapubic catheter. He is also paraplegic from a T-spine injury. He has been admitted to the ICU at [facility] for treatment of the above-noted conditions and I was consulted for evaluation of the wounds in the setting of a CT scan that demonstrated a potential fluid collection near the coccyx (which may or may not be in continuation with the left ischial wound). HPI from today, 30 Mar 2024: Patient admitted overnight for altered mental status/encephalopathy. He is getting dialysis this morning. He has been receiving antibiotics for the wound after the cultures Pseudomonas, Acinetobacter, and ESBL from when I drained an abscess digitally on 22 March 2020. He is on vancomycin meropenem and Cipro per infectious disease. Today on the floor patient reports that he was paralyzed after his kidney transplant. Reports good wound care from nursing on the floor. FOR[facility]LY [facility], [facility] Medical History ESRD (end stage renal disease) on dialysis Hx of pulmonary embolus Anemia in chronic kidney disease, on chronic dialysis halfway (current) use of 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 H/O deep venous thrombosis Osteomyelitis of pelvic region Lives in residential Anxiety Open wound Insulin dependent diabetes mellitus Uses wheelchair Injury of back Non-healing wound of amputation stump DM type 2, goal HbA1c < 7% 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, stage 4 Neurogenic bowel Chronic kidney disease with end stage renal failure on dialysis Kidney transplant failure Dependence on renal dialysis Pressure ulcer of left heel, unspecified stage Gastro-esophageal reflux disease without esophagitis Other pericardial effusion (noninflammatory) Other pulmonary embolism without acute cor pulmonale Hypertensive heart and chronic kidney disease with heart failure and stage 1 through stage 4 chronic kidney disease, or unspecified chronic kidney disease Depression Hyperlipemia Hypothyroidism Anemia in chronic kidney disease Neuromuscular dysfunction of bladder, unspecified Paraplegia, incomplete Other acute osteomyelitis, left ankle and foot End stage renal disease Home Medications ?Medication ?Instructions ?Recorded ?Last Taken ?Type acetaminophen 325 mg tablet 650 mg PO Q4H PRN PAIN/FEVER 01/02/23 04/21/23 History apixaban 5 mg tablet (Eliquis) 5 mg PO BID blood thinner 01/02/23 07/16/23 History ascorbic acid (vitamin C) 500 mg 500 mg PO QHS supplement 01/02/23 12/08/23 History tablet atorvastatin 40 mg tablet 40 mg PO QHS hypercholestremia 01/02/23 12/08/23 History bisacodyl 10 mg rectal suppository 10 mg DE DAILY PRN Constipation 01/02/23 Unknown History carvedilol 12.5 mg tablet 12.5 mg PO Q12H HYPERTENSION 01/02/23 12/09/23 History clotrimazole-betamethasone 1 1 applic topical QHS rash 01/02/23 07/15/23 History %-0.05 % topical cream dextrose 40 % oral gel (Glucose 15 g PO Q15M PRN Hypoglycemia 01/02/23 Unknown History Gel) hydralazine 25 mg tablet 50 mg PO Q8 hypertension 01/02/23 12/09/23 History insulin glargine 100 unit/mL (3 11 unit subcut 1700 diabetes 01/02/23 12/08/23 History mL) subcutaneous pen (Lantus Solostar U-100 Insulin) insulin lispro 100 unit/mL 6 unit subcut QHS diabetes 01/02/23 07/16/23 History subcutaneous pen (Humalog KwikPen (U-100) Insulin) midodrine 10 mg tablet 10 mg PO MOTUTHFR DIALYSIS 01/02/23 12/09/23 History ondansetron HCl 4 mg tablet 4 mg PO Q8H PRN PRN Nausea 01/02/23 Unknown History pantoprazole 40 mg tablet,delayed 40 mg PO DAILY gerd 01/02/23 12/08/23 History release polyethylene glycol 3350 17 gram 17 g PO DAILY PRN constipation 01/02/23 Unknown History oral powder packet promethazine 12.5 mg tablet 12.5 mg PO Q8H PRN Nausea 01/02/23 07/15/23 History sennosides 8.6 mg-docusate sodium 1 tab-cap PO BID Constipation 01/02/23 07/16/23 History 50 mg capsule (Senna Plus) tacrolimus 1 mg capsule, 2 mg PO Q12H immunosuppressive 01/02/23 12/09/23 History immediate-release (Prograf) trazodone 50 mg tablet 50 mg PO QHS insomnia 01/02/23 12/08/23 History gabapentin 100 mg capsule 200 mg PO BID PHANTOM PAIN 04/21/23 12/09/23 History sevelamer HCl 800 mg tablet 2,400 mg PO TIDCM ESRD 04/21/23 07/16/23 History levothyroxine 150 mcg tablet 150 mcg PO DAILY@0600 07/16/23 12/09/23 History hypothyroidism oxycodone 10 mg tablet 10 mg PO Q4H PRN pain 2 days #12 07/19/23 Unknown Rx tabs acetaminophen 650 mg rectal 650 mg DE Q4H PRN fever or pain 08/06/23 Unknown History suppository glucagon 1 mg injection kit 1 mg subcut X1 PRN hypoglycemia 08/06/23 Unknown History magnesium hydroxide 400 mg/5 mL 30 ml PO DAILY PRN constipation 08/06/23 Unknown History oral suspension (Milk of Magnesia) ciclopirox 8 % topical solution 1 applic topical QHS nail fungus 11/17/23 Unknown History insulin lispro 100 unit/mL 9 unit subcut DAILY diabetes 11/17/23 Unknown History subcutaneous pen (Humalog KwikPen (U-100) Insulin) diphenhydramine-zinc acetate 2 1 applic topical Q6H PRN PRN 12/06/23 Unknown History %-0.1 % topical cream (Benadryl itching Extra Strength) escitalopram oxalate 10 mg tablet 15 mg PO QHS depression 12/30/23 Unknown History (Lexapro) insulin lispro 100 unit/mL See Protocol subcut TIDCM 03/22/24 Unknown History subcutaneous pen insulin lispro 100 unit/mL 6 unit subcut DAILY@1700 dm 03/22/24 Unknown History subcutaneous solution vitamin B complex-vitamin C-folic 1 tab PO DAILY 03/22/24 Unknown History acid 0.8 mg tablet amoxicillin 500 mg-potassium 1 tab PO DAILY #40 tabs 03/27/24 Unknown Rx clavulanate 125 mg tablet (Augmentin) tobramycin sulfate 40 mg/mL 150 mg (3.75 mL) IV Q24H 39 days 03/27/24 Unknown Rx injection solution aluminum-magnesium hydroxide 225 30 ml PO Q4H PRN GI DISTRESS 03/29/24 Unknown History mg-200 mg/5 mL oral suspension guaifenesin 100 mg/5 mL oral 200 mg PO Q4H PRN cough 03/29/24 Unknown History liquid (Adult Tussin Chest Congestion) hydralazine 50 mg tablet 50 mg PO TID 03/29/24 Unknown History insulin glargine 100 unit/mL 11 unit subcut QHS 03/29/24 Unknown History subcutaneous solution (Lantus U-100 Insulin) Allergy/AdvReac Type Severity Reaction Status Date / Time No Known Allergies Allergy Verified 02/18/24 04:45 Family History Mother Hypertension Diabetes Father Hypertension Diabetes Surgical History History of kidney transplant S/P unilateral above knee amputation S/P foot surgery S/P colostomy Social History housing: residential Smoking Status: Never smoker alcohol intake: never substance use type: does not use Physical Exam Narrative Left ischial wound Seen and examined today and probed digitally. No fluid collections. The wound was 4 x 4 cm and tract 5 cm deep down to bone and tunneled 4 cm superiorly towards the coccyx. Stage IV. No signs of induration or cellulitis around the wound. Const alert and oriented x3 Constitutional Narrative: No confusion today. GI GI Narrative: Nasogastric tube in place Lab / Micro Data 03/30/24 06:55 03/30/24 06:55 Labs: Laboratory Results - last 24 hr 03/29/24 07:56: POC Glucose 111 H 03/29/24 08:35: WBC 10.3, RBC 3.29 L, Hgb 8.9 L, Hct 29.3 L, MCV 89.1, MCH 27.1, MCHC 30.4 L, RDW Std Deviation 58.2 H, RDW Coeff of Shanta 17.7 H, Plt Count 191, MPV 10.5, Immature Gran % (Auto) 0.900, Neut % (Auto) 64.0, Lymph % (Auto) 21.6, [place] % (Auto) 9.4, Eos % (Auto) 3.2, Baso % (Auto) 0.9, Absolute Neuts (auto) 6.6, Absolute Lymphs (auto) 2.23, Nucleated RBC % 0, Sodium 137, Potassium 4.9, Chloride 101, Carbon Dioxide 22.0, Anion Gap 14, BUN 60 H, Creatinine 10.60 H*, Estim Creat Clear Calc 13.34, Est GFR (MDRD) Af Amer 7 L, Est GFR (MDRD) Non-Af 6 L, BUN/Creatinine Ratio 5.7 L, Glucose 98, Calcium 8.8, Total Bilirubin 0.70, AST 16, ALT 14 L, Alkaline Phosphatase 96, Total Protein 8.5 H, Albumin 2.6 L, Globulin 5.9 H, Albumin/Globulin Ratio 0.4 L 03/29/24 11:28: POC Glucose 94 03/29/24 16:29: POC Glucose 109 H 03/29/24 17:44: PT 17.0 H, INR 1.4, APTT 34.1 03/29/24 21:10: POC Glucose 94 03/30/24 06:55: WBC 10.8, RBC 3.31 L, Hgb 8.9 L, Hct 29.5 L, MCV 89.1, MCH 26.9 L, MCHC 30.2 L, RDW Std Deviation 57.3 H, RDW Coeff of Shanta 17.6 H, Plt Count 209, MPV 10.3, Immature Gran % (Auto) 0.600, Neut % (Auto) 65.6, Lymph % (Auto) 19.4, [place] % (Auto) 8.8, Eos % (Auto) 4.7, Baso % (Auto) 0.9, Absolute Neuts (auto) 7.1, Absolute Lymphs (auto) 2.09, Nucleated RBC % 0 Imaging MR#: [id number] Acct: [id number] Name: CHINA GUILLEN III Rep #: [id number] : 1985 M 38 From: Michael Laguerre MD PCP: Vanessa Hutchins MD Status: REG ER Study: Abdomen/Pelvis WITH Contrast Date of Exam: 03/28/24 Exam# [id number] Ordering Dr: Edouard Combs MD STUDY: CT ABDOMEN AND PELVIS WITH CONTRAST REASON FOR EXAM: Male, 38 years old. Abdominal pain, no flatulence or stool output from RADIATION DOSAGE (If Supplied By Facility): CTDIvol = ( 13.75 ) mGy, DLP = ( 1602.36 ) mGycm TECHNIQUE: Transaxial images were obtained from the dome of the diaphragm to the symphysis pubis without oral contrast. 75ml -ISOVUE 370 was administered. Sagittal and coronal images were reconstructed. Individualized dose optimization techniques were used for this CT. COMPARISON: 03/22/2024 FINDINGS: Some left lower lobe atelectasis. Cardiomegaly. Normal liver. Normal gallbladder and extrahepatic biliary system. Normal spleen. Normal pancreas. Normal bilateral adrenal glands. There is mild cortical atrophy of the right kidney, consistent with chronic medical renal disease. There is mild cortical atrophy of the left kidney, consistent with chronic medical renal disease. Right pelvic renal transplant without hydronephrosis. Normal visualized stomach. Normal small intestine. Left lower quadrant colostomy. There is non-visualization of the appendix. Normal abdominal aorta. Normal inferior vena cava. Normal retroperitoneum. Suprapubic catheter within the collapsed bladder. Deep decubitus ulcer of the overlying the left ischial tuberosity with bony proliferation likely from chronic osteomyelitis. Normal osseous structures. CT/Abdomen/Pelvis WITH Contrast IMPRESSION: No acute abnormality. Charges/Coding Multi Select Codes Visit Charges Office Visit/Consults: 39123 IP Consult L4
[2024-03-30 08:19] LABS: Anion Gap 14 (5-15); BUN 74 mg/dL (7-18); BUN/Creat Ratio 5.9 RATIO (10-20); Calcium,Total 9.2 mg/dL (8.5-10.1); Chloride 101 mmol/L (98-107); EST Glomerular Filtration Rate 5 mL/min (>60); Est Glom Filt Rate - Afr Amer 6 mL/min (>60); Estimated Creatinine Clearance 11.34 ml/min; Glucose 85 mg/dL (74-106); Potassium 5.4 mmol/L (3.5-5.1); Sodium Level 137 mmol/L (136-145)
--- NOTE | 2024-03-30 10:11 | PN.HOSP_ITS ---
Reason for Visit Reason for Visit: Diagnoses Unspecified infectious disease (03/29/24) Other encephalopathy (03/29/24) Hypertensive urgency (03/29/24) Epistaxis (03/29/24) Subjective Subjective Slow to respond but denies complaints. Objective Data Objective Data Vital Signs: Vital Signs Temp Pulse Resp BP Pulse Ox O2 Del Method 36.9 C 89 12 169/65 H 98 Room Air 03/30/24 07:07 03/30/24 10:00 03/30/24 10:00 03/30/24 10:00 03/30/24 10:00 03/30/24 10:00 Oxygen Delivery Method Room Air Weight: 128.9 kg Body Mass Index (BMI) 38.5 Intake & Output: Intake and Output for Last 24 Hours 03/28/24 03/29/24 03/30/24 23:59 23:59 23:59 Intake Total 1908.27 / 1908.27 0 / 0 Output Total 30 / 30 0 / 0 Balance 1878.27 / 1878.27 0 / 0 Lab / Micro Data 03/30/24 06:55 03/30/24 06:55 Labs: Laboratory Results - last 24 hr 03/29/24 11:28: POC Glucose 94 03/29/24 16:29: POC Glucose 109 H 03/29/24 17:44: PT 17.0 H, INR 1.4, APTT 34.1 03/29/24 21:10: POC Glucose 94 03/30/24 06:55: WBC 10.8, RBC 3.31 L, Hgb 8.9 L, Hct 29.5 L, MCV 89.1, MCH 26.9 L, MCHC 30.2 L, RDW Std Deviation 57.3 H, RDW Coeff of Shanta 17.6 H, Plt Count 209, MPV 10.3, Immature Gran % (Auto) 0.600, Neut % (Auto) 65.6, Lymph % (Auto) 19.4, [place] % (Auto) 8.8, Eos % (Auto) 4.7, Baso % (Auto) 0.9, Absolute Neuts (auto) 7.1, Absolute Lymphs (auto) 2.09, Nucleated RBC % 0, Sodium 137, P otassium 5.4 H, Chloride 101, Carbon Dioxide 22.0, Anion Gap 14, BUN 74 H, C reatinine 12.50 H*, Estim Creat Clear Calc 11.34, Est GFR (MDRD) Af Amer 6 L, E st GFR (MDRD) Non-Af 5 L, BUN/Creatinine Ratio 5.9 L, Glucose 85, Calcium 9.2 Physical Exam Const alert and no apparent distress HEENT head/scalp atraumatic and moist oral mucous membranes Resp normal respiratory effort, no retractions, no use of accessory muscles and clear to auscultation bilaterally Cardio regular rate, regular rhythm, S1 normal heart sound and S2 normal heart sound GI normal to inspection, nondistended, normoactive bowel sounds, soft to palpation, non-tender, non-distended and hepatosplenomegaly Extremity normal to inspection and full ROM Neuro Sensorium / Orientation: awake Assessment & Plan Assessment/Plan (1) Metabolic encephalopathy: PLAN: Improved 2/2 hypertensive emergency (BP up to 241/97) + medications (oxycodone) + infectious (decubutus ulcer) Correct the underlying processes, hold potentiating medications. Head CT negative. (2) Hypertensive emergency: PLAN: POA. Subsequently improved Continue with carvedilol 12.5 BID, hydralazine 50 TID. Hold midodrine (receives on HD days). Will increase the hydralazine to 75 3 times daily. (3) Decubitus ulcer: PLAN: CT unremarkable Seen by PRS: likely chronic osteomyelitis as it probes down to the bone. Seen by ID last week (separate admission) for this and recommended 6 weeks of Tobramycin with HD and PO augmentin. Though, currently, just on Augmentin. Follow up with wound care and ID. (4) End-stage renal disease on hemodialysis: PLAN: on HD nephrology following on Sevelamer PLAN: Plan Chronic conditions * History of paraplegia after T5-T6 injury; with patient in wheelchair, neurogenic bladder; with suprapubic catheter with patient still making urine, neurogenic bowel; s/p colostomy, history of Stage IV Left Perineal Ischial region Decubitus Ulcer with Osteomyelitis and SIRS; with patient residing at [facility] adding to the disease burden of #1 - #4 - Noted with CT this admission positive for continued osteomyelitis with possible abscess. Finally, we will consult general surgeon on-call to see this patient for recommendations regarding possible I&D this admission with help appreciated in advance. * Obesity class III: Complicates care and recovery * History of DVT/PE: Apixaban * Hyperlipidemia: Continue statin * Hypothyroidism: Continue with levothyroxine. TSH within normal limits. * DM-2: On glargine 11 units currently as well as sliding scale. and AM and PM scheduled log. * History of pericardial effusion: Patient has no echocardiogram in our system. Will check. * Anemia of chronic disease: Stable. * Depression: Hold escitalopram given the encephalopathy. * GERD: Continue PPI * s/p renal x-plant: on tacrolimus VTE prophylaxis: not indicated as already on apixaban. Charges/Coding Visit Charges Inpatient E&M: 23309 Subs Hosp L2
--- NOTE | 2024-03-30 11:01 | CON.PCM.RE_ITS ---
<Statement entered by Ansley Peña MD - 03/30/24 19:01> I have personally performed a face to face assessment of the patient and have reviewed the YUE Note. Assessment & Plan Assessment/Plan (1) End-stage renal disease on hemodialysis: (2) Acute encephalopathy: PLAN: Plan This is a 38-year-old male with past medical history significant for ESRD admitted for acute encephalopathy likely multifactorial who undergoes hemodialysis at [facility] Saturday, Saturday, , Saturday schedule. Patient last dialyzed Saturday, 03/27. Nephrology consulted as patient has history of ESRD and requires hemodialysis, patient is undergoing hemodialysis today on 2K bath attempting around 3 L fluid removal. While patient is in hospital we will maintain a hemodialysis schedule of Saturday, unless acute need arises. Patient has history of anemia of chronic disease, hemoglobin is 8.9. He receives long-acting REILLY with dialysis at the shelter. Will monitor hemoglobin trends. Further orders forthcoming as hospitalization evolves, thank you for allowing us to participate in the care of Mr. Salgado. HPI Consult Data Date of Consult: 03/30/24 HPI Narrative HPI Narrative: CHINA SALGADO, is a 38 M with past medical history significant for ESRD who currently dialyzes at [facility] Saturday, Saturday, , Saturday schedule who was [facility] for evaluation of confusion and decreased responsiveness. Patient was just discharged from the hospital on 03/27 after admission for hypertensive emergency, UTI and hematuria and evaluation of sacral decubitus. Patient received his hemodialysis on a Saturday schedule last week while he was in the hospital. Nephrology consulted as patient has history of ESRD for dialysis management. Patient last dialyzed Saturday in the hospital. Patient is currently undergoing hemodialysis now. 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 H/O deep venous thrombosis Osteomyelitis of pelvic region Lives in shelter Anxiety Open wound Insulin dependent diabetes mellitus Uses wheelchair Injury of back Non-healing wound of amputation stump DM type 2, goal HbA1c < 7% 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, stage 4 Neurogenic bowel Chronic kidney disease with end stage renal failure on dialysis Kidney transplant failure Dependence on renal dialysis Pressure ulcer of left heel, unspecified stage Gastro-esophageal reflux disease without esophagitis Other pericardial effusion (noninflammatory) Other pulmonary embolism without acute cor pulmonale Hypertensive heart and chronic kidney disease with heart failure and stage 1 through stage 4 chronic kidney disease, or unspecified chronic kidney disease Depression Hyperlipemia Hypothyroidism Anemia in chronic kidney disease Neuromuscular dysfunction of bladder, unspecified Paraplegia, incomplete Other acute osteomyelitis, left ankle and foot End stage renal disease Home Medications ?Medication ?Instructions ?Recorded ?Last Taken ?Type acetaminophen 325 mg tablet 650 mg PO Q4H PRN PAIN/FEVER 01/02/23 04/21/23 History apixaban 5 mg tablet (Eliquis) 5 mg PO BID blood thinner 01/02/23 07/16/23 History ascorbic acid (vitamin C) 500 mg 500 mg PO QHS supplement 01/02/23 12/08/23 History tablet atorvastatin 40 mg tablet 40 mg PO QHS hypercholestremia 01/02/23 12/08/23 History bisacodyl 10 mg rectal suppository 10 mg AR DAILY PRN Constipation 01/02/23 Unknown History carvedilol 12.5 mg tablet 12.5 mg PO Q12H HYPERTENSION 01/02/23 12/09/23 History clotrimazole-betamethasone 1 1 applic topical QHS rash 01/02/23 07/15/23 History %-0.05 % topical cream dextrose 40 % oral gel (Glucose 15 g PO Q15M PRN Hypoglycemia 01/02/23 Unknown History Gel) hydralazine 25 mg tablet 50 mg PO Q8 hypertension 01/02/23 12/09/23 History insulin glargine 100 unit/mL (3 11 unit subcut 1700 diabetes 01/02/23 12/08/23 History mL) subcutaneous pen (Lantus Solostar U-100 Insulin) insulin lispro 100 unit/mL 6 unit subcut QHS diabetes 01/02/23 07/16/23 History subcutaneous pen (Humalog KwikPen (U-100) Insulin) midodrine 10 mg tablet 10 mg PO MOTUTHFR DIALYSIS 01/02/23 12/09/23 History ondansetron HCl 4 mg tablet 4 mg PO Q8H PRN PRN Nausea 01/02/23 Unknown History pantoprazole 40 mg tablet,delayed 40 mg PO DAILY gerd 01/02/23 12/08/23 History release polyethylene glycol 3350 17 gram 17 g PO DAILY PRN constipation 01/02/23 Unknown History oral powder packet promethazine 12.5 mg tablet 12.5 mg PO Q8H PRN Nausea 01/02/23 07/15/23 History sennosides 8.6 mg-docusate sodium 1 tab-cap PO BID Constipation 01/02/23 07/16/23 History 50 mg capsule (Senna Plus) tacrolimus 1 mg capsule, 2 mg PO Q12H immunosuppressive 01/02/23 12/09/23 History immediate-release (Prograf) trazodone 50 mg tablet 50 mg PO QHS insomnia 01/02/23 12/08/23 History gabapentin 100 mg capsule 200 mg PO BID PHANTOM PAIN 04/21/23 12/09/23 History sevelamer HCl 800 mg tablet 2,400 mg PO TIDCM ESRD 04/21/23 07/16/23 History levothyroxine 150 mcg tablet 150 mcg PO DAILY@0600 07/16/23 12/09/23 History hypothyroidism oxycodone 10 mg tablet 10 mg PO Q4H PRN pain 2 days #12 07/19/23 Unknown Rx tabs acetaminophen 650 mg rectal 650 mg AR Q4H PRN fever or pain 08/06/23 Unknown History suppository glucagon 1 mg injection kit 1 mg subcut X1 PRN hypoglycemia 08/06/23 Unknown History magnesium hydroxide 400 mg/5 mL 30 ml PO DAILY PRN constipation 08/06/23 Unknown History oral suspension (Milk of Magnesia) ciclopirox 8 % topical solution 1 applic topical QHS nail fungus 11/17/23 Unknown History insulin lispro 100 unit/mL 9 unit subcut DAILY diabetes 11/17/23 Unknown History subcutaneous pen (Humalog KwikPen (U-100) Insulin) diphenhydramine-zinc acetate 2 1 applic topical Q6H PRN PRN 12/06/23 Unknown History %-0.1 % topical cream (Benadryl itching Extra Strength) escitalopram oxalate 10 mg tablet 15 mg PO QHS depression 12/30/23 Unknown History (Lexapro) insulin lispro 100 unit/mL See Protocol subcut TIDCM 03/22/24 Unknown History subcutaneous pen insulin lispro 100 unit/mL 6 unit subcut DAILY@1700 dm 03/22/24 Unknown History subcutaneous solution vitamin B complex-vitamin C-folic 1 tab PO DAILY 03/22/24 Unknown History acid 0.8 mg tablet amoxicillin 500 mg-potassium 1 tab PO DAILY #40 tabs 03/27/24 Unknown Rx clavulanate 125 mg tablet (Augmentin) tobramycin sulfate 40 mg/mL 150 mg (3.75 mL) IV Q24H 39 days 03/27/24 Unknown Rx injection solution aluminum-magnesium hydroxide 225 30 ml PO Q4H PRN GI DISTRESS 03/29/24 Unknown History mg-200 mg/5 mL oral suspension guaifenesin 100 mg/5 mL oral 200 mg PO Q4H PRN cough 03/29/24 Unknown History liquid (Adult Tussin Chest Congestion) hydralazine 50 mg tablet 50 mg PO TID 03/29/24 Unknown History insulin glargine 100 unit/mL 11 unit subcut QHS 03/29/24 Unknown History subcutaneous solution (Lantus U-100 Insulin) Allergy/AdvReac Type Severity Reaction Status Date / Time No Known Allergies Allergy Verified 02/18/24 04:45 Family History Mother Hypertension Diabetes Father Hypertension Diabetes Surgical History History of kidney transplant S/P unilateral above knee amputation S/P foot surgery S/P colostomy Social History housing: shelter Smoking Status: Never smoker alcohol intake: never substance use type: does not use ROS ROS Narrative Unable to obtain Physical Exam Narrative No apparent distress S1, S2, RRR Lung sounds diminished Abdomen soft No edema right leg Left arm AV fistula accessed for hemodialysis Lab / Micro Data 03/30/24 06:55 03/30/24 06:55 Labs: Laboratory Results - last 24 hr 03/29/24 11:28: POC Glucose 94 03/29/24 16:29: POC Glucose 109 H 03/29/24 17:44: PT 17.0 H, INR 1.4, APTT 34.1 03/29/24 21:10: POC Glucose 94 03/30/24 06:55: WBC 10.8, RBC 3.31 L, Hgb 8.9 L, Hct 29.5 L, MCV 89.1, MCH 26.9 L, MCHC 30.2 L, RDW Std Deviation 57.3 H, RDW Coeff of Shanta 17.6 H, Plt Count 209, MPV 10.3, Immature Gran % (Auto) 0.600, Neut % (Auto) 65.6, Lymph % (Auto) 19.4, [place] % (Auto) 8.8, Eos % (Auto) 4.7, Baso % (Auto) 0.9, Absolute Neuts (auto) 7.1, Absolute Lymphs (auto) 2.09, Nucleated RBC % 0, Sodium 137, P otassium 5.4 H, Chloride 101, Carbon Dioxide 22.0, Anion Gap 14, BUN 74 H, C reatinine 12.50 H*, Estim Creat Clear Calc 11.34, Est GFR (MDRD) Af Amer 6 L, E st GFR (MDRD) Non-Af 5 L, BUN/Creatinine Ratio 5.9 L, Glucose 85, Calcium 9.2
[2024-03-30] MEDS: DAKIN'S SOL HALF STRENGTH (=0.25%) TOPICAL ×2 (11:07→22:25)
--- NOTE | 2024-03-30 11:57 | WOUNDNOTE ---
wound photo: left ischium
--- NOTE | 2024-03-30 12:28 | PCM.RX.CS ---
Consult Antibiotic Management Pharmacy has been consulted to manage selected antibiotic: Tobramycin Type of Intervention Type of Consult: New start Suspected Infection Suspected Infection: Skin/Soft tissue Prior Doses of Antibiotics Prior Doses of Antibiotics Received/Current Regimen: Tobramycin 2 mg/kg adjusted body weight (190 mg) x 1 ordered for 03/30/24. Labs Labs: Sodium 137 mmol/L (136-145) 03/30/24 06:55 Potassium 5.4 mmol/L (3.5-5.1) H 03/30/24 06:55 Chloride 101 mmol/L (98-107) 03/30/24 06:55 Carbon Dioxide 22.0 mmol/L (21.0-32.0) 03/30/24 06:55 Anion Gap 14 (5-15) 03/30/24 06:55 BUN 74 mg/dL (7-18) H 03/30/24 06:55 Creatinine 12.50 mg/dL (0.70-1.30) H* 03/30/24 06:55 Est GFR (MDRD) Af Amer 6 mL/min (>60) L 03/30/24 06:55 Est GFR (MDRD) Non-Af 5 mL/min (>60) L 03/30/24 06:55 BUN/Creatinine Ratio 5.9 RATIO (10-20) L 03/30/24 06:55 Glucose 85 mg/dL (74-106) 03/30/24 06:55 Dosing Weight Weight used for dosin kg Estimated Creatinine Clearance Estimated Creatinine Clearance: ESRD ON HD Goal Trough Goal Trough: Other (<1) Pharmacy Plan for Drug Dosing Pharmacy Plan for Drug Dosing: Tobramycin pharmacy to dose goal peak 3-5, goal trough prior to HD = <1. 2 mg/kg x 1 dose = 190 mg (adjusted body weight of 97 kg). Plan for random level AM OF 04/01/24 prior to HD. Pharmacy Service will continue to monitor and adjust dosing as required. Follow-Up Labs Follow-Up Labs: Trough: Tobramycin Date/Time Labs Ordered Labs to be done on [date and time ordered]: 04/01/24 @ 0600 (R)
--- NOTE | 2024-03-30 12:36 | PCM.CONS.GEN ---
Assessment & Plan Assessment/Plan (1) Acute encephalopathy: (2) Osteomyelitis of pelvic region: PLAN: Ucx with PsA, GNR. Wound cx with AcB, PsA, esbl ecoli. Discharged on iv tobra 1.5mg/kg per dose (150mg based on 100kg IBW) given with HD sessions [id number]. Will give po augmentin along with it for planned 6 week course, stop date 05/06/24. Left to [facility]CF on 03/27 after 1st dose of tobra, came back 03/28 due to altered mental status. Admitted, restarted on prior vanc, lupe, cipro. Has waxing/waning mental status, so not clear if single dose of tobra made a large change. Will restart tobra/augmentin and monitor. Limited other abx options. Will follow, thank you HPI Consult Data Date of Consult: 03/30/24 HPI Narrative Reason for Consultation: pelvic osteo HPI Narrative: JABARI GUILLEN, is a 38 M with paraplegia, recent admit with ischial osteo. Surgery consulted. Bcx with CoNS. Ucx with PsA, GNR. Wound cx with AcB, PsA, esbl ecoli. Discharged on iv tobra 1.5mg/kg per dose (150mg based on 100kg IBW) given with HD sessions [id number]. Will give po augmentin along with it for planned 6 week course, stop date 05/06/24. Left to ECF on 03/27 after 1st dose of tobra, came back 03/28 due to altered mental status. Admitted, restarted on prior vanc, lupe, cipro. Feeling ok, had HD this AM. Full ROS performed and neg except as noted above. 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 H/O deep venous thrombosis Osteomyelitis of pelvic region Lives in [facility] Anxiety Open wound Insulin dependent diabetes mellitus Uses wheelchair Injury of back Non-healing wound of amputation stump DM type 2, goal HbA1c < 7% 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, stage 4 Neurogenic bowel Chronic kidney disease with end stage renal failure on dialysis Kidney transplant failure Dependence on renal dialysis Pressure ulcer of left heel, unspecified stage Gastro-esophageal reflux disease without esophagitis Other pericardial effusion (noninflammatory) Other pulmonary embolism without acute cor pulmonale Hypertensive heart and chronic kidney disease with heart failure and stage 1 through stage 4 chronic kidney disease, or unspecified chronic kidney disease Depression Hyperlipemia Hypothyroidism Anemia in chronic kidney disease Neuromuscular dysfunction of bladder, unspecified Paraplegia, incomplete Other acute osteomyelitis, left ankle and foot End stage renal disease Home Medications ?Medication ?Instructions ?Recorded ?Last Taken ?Type acetaminophen 325 mg tablet 650 mg PO Q4H PRN PAIN/FEVER 01/02/23 04/21/23 History apixaban 5 mg tablet (Eliquis) 5 mg PO BID blood thinner 01/02/23 07/16/23 History ascorbic acid (vitamin C) 500 mg 500 mg PO QHS supplement 01/02/23 12/08/23 History tablet atorvastatin 40 mg tablet 40 mg PO QHS hypercholestremia 01/02/23 12/08/23 History bisacodyl 10 mg rectal suppository 10 mg WI DAILY PRN Constipation 01/02/23 Unknown History carvedilol 12.5 mg tablet 12.5 mg PO Q12H HYPERTENSION 01/02/23 12/09/23 History clotrimazole-betamethasone 1 1 applic topical QHS rash 01/02/23 07/15/23 History %-0.05 % topical cream dextrose 40 % oral gel (Glucose 15 g PO Q15M PRN Hypoglycemia 01/02/23 Unknown History Gel) hydralazine 25 mg tablet 50 mg PO Q8 hypertension 01/02/23 12/09/23 History insulin glargine 100 unit/mL (3 11 unit subcut 1700 diabetes 01/02/23 12/08/23 History mL) subcutaneous pen (Lantus Solostar U-100 Insulin) insulin lispro 100 unit/mL 6 unit subcut QHS diabetes 01/02/23 07/16/23 History subcutaneous pen (Humalog KwikPen (U-100) Insulin) midodrine 10 mg tablet 10 mg PO MOTUTHFR DIALYSIS 01/02/23 12/09/23 History ondansetron HCl 4 mg tablet 4 mg PO Q8H PRN PRN Nausea 01/02/23 Unknown History pantoprazole 40 mg tablet,delayed 40 mg PO DAILY gerd 01/02/23 12/08/23 History release polyethylene glycol 3350 17 gram 17 g PO DAILY PRN constipation 01/02/23 Unknown History oral powder packet promethazine 12.5 mg tablet 12.5 mg PO Q8H PRN Nausea 01/02/23 07/15/23 History sennosides 8.6 mg-docusate sodium 1 tab-cap PO BID Constipation 01/02/23 07/16/23 History 50 mg capsule (Senna Plus) tacrolimus 1 mg capsule, 2 mg PO Q12H immunosuppressive 01/02/23 12/09/23 History immediate-release (Prograf) trazodone 50 mg tablet 50 mg PO QHS insomnia 01/02/23 12/08/23 History gabapentin 100 mg capsule 200 mg PO BID PHANTOM PAIN 04/21/23 12/09/23 History sevelamer HCl 800 mg tablet 2,400 mg PO TIDCM ESRD 04/21/23 07/16/23 History levothyroxine 150 mcg tablet 150 mcg PO DAILY@0600 07/16/23 12/09/23 History hypothyroidism oxycodone 10 mg tablet 10 mg PO Q4H PRN pain 2 days #12 07/19/23 Unknown Rx tabs acetaminophen 650 mg rectal 650 mg WI Q4H PRN fever or pain 08/06/23 Unknown History suppository glucagon 1 mg injection kit 1 mg subcut X1 PRN hypoglycemia 08/06/23 Unknown History magnesium hydroxide 400 mg/5 mL 30 ml PO DAILY PRN constipation 08/06/23 Unknown History oral suspension (Milk of Magnesia) ciclopirox 8 % topical solution 1 applic topical QHS nail fungus 11/17/23 Unknown History insulin lispro 100 unit/mL 9 unit subcut DAILY diabetes 11/17/23 Unknown History subcutaneous pen (Humalog KwikPen (U-100) Insulin) diphenhydramine-zinc acetate 2 1 applic topical Q6H PRN PRN 12/06/23 Unknown History %-0.1 % topical cream (Benadryl itching Extra Strength) escitalopram oxalate 10 mg tablet 15 mg PO QHS depression 12/30/23 Unknown History (Lexapro) insulin lispro 100 unit/mL See Protocol subcut TIDCM 03/22/24 Unknown History subcutaneous pen insulin lispro 100 unit/mL 6 unit subcut DAILY@1700 dm 03/22/24 Unknown History subcutaneous solution vitamin B complex-vitamin C-folic 1 tab PO DAILY 03/22/24 Unknown History acid 0.8 mg tablet amoxicillin 500 mg-potassium 1 tab PO DAILY #40 tabs 03/27/24 Unknown Rx clavulanate 125 mg tablet (Augmentin) tobramycin sulfate 40 mg/mL 150 mg (3.75 mL) IV Q24H 39 days 03/27/24 Unknown Rx injection solution aluminum-magnesium hydroxide 225 30 ml PO Q4H PRN GI DISTRESS 03/29/24 Unknown History mg-200 mg/5 mL oral suspension guaifenesin 100 mg/5 mL oral 200 mg PO Q4H PRN cough 03/29/24 Unknown History liquid (Adult Tussin Chest Congestion) hydralazine 50 mg tablet 50 mg PO TID 03/29/24 Unknown History insulin glargine 100 unit/mL 11 unit subcut QHS 03/29/24 Unknown History subcutaneous solution (Lantus U-100 Insulin) Allergy/AdvReac Type Severity Reaction Status Date / Time No Known Allergies Allergy Verified 02/18/24 04:45 Family History Mother Hypertension Diabetes Father Hypertension Diabetes Surgical History History of kidney transplant S/P unilateral above knee amputation S/P foot surgery S/P colostomy Social History housing: [facility] Smoking Status: Never smoker alcohol intake: never substance use type: does not use Physical Exam Const no apparent distress General Appearance: cooperative and lethargic HEENT normocephalic and head/scalp atraumatic Neck supple and No nodes Resp normal air movement and clear to auscultation bilaterally Cardio regular rate and regular rhythm GI soft to palpation, non-tender and non-distended Extremity General Extremity: edema Skin Skin Narrative: ischial wound probes to bone Neuro CN's II-XII intact bilaterally Lab / Micro Data Attestation: I reviewed the patient's lab results. 03/30/24 06:55 03/30/24 06:55 Labs: Laboratory Results - last 24 hr 03/29/24 11:28: POC Glucose 94 03/29/24 16:29: POC Glucose 109 H 03/29/24 17:44: PT 17.0 H, INR 1.4, APTT 34.1 03/29/24 21:10: POC Glucose 94 03/30/24 06:55: WBC 10.8, RBC 3.31 L, Hgb 8.9 L, Hct 29.5 L, MCV 89.1, MCH 26.9 L, MCHC 30.2 L, RDW Std Deviation 57.3 H, RDW Coeff of Shanta 17.6 H, Plt Count 209, MPV 10.3, Immature Gran % (Auto) 0.600, Neut % (Auto) 65.6, Lymph % (Auto) 19.4, [place] % (Auto) 8.8, Eos % (Auto) 4.7, Baso % (Auto) 0.9, Absolute Neuts (auto) 7.1, Absolute Lymphs (auto) 2.09, Nucleated RBC % 0, Sodium 137, Potassium 5.4 H, Chloride 101, Carbon Dioxide 22.0, Anion Gap 14, BUN 74 H, Creatinine 12.50 H*, Estim Creat Clear Calc 11.34, Est GFR (MDRD) Af Amer 6 L, Est GFR (MDRD) Non-Af 5 L, BUN/Creatinine Ratio 5.9 L, Glucose 85, Calcium 9.2
[2024-03-30 12:43] LABS: Bedside Glucose 86 mg/dL (74-106)
[2024-03-30] MEDS: Carvedilol 12.5 MG Tablet PO ×2 (13:58→22:08)
[2024-03-30] MEDS: Gabapentin 100 MG Capsule 200 MG PO ×2 (13:58→22:10)
[2024-03-30] MEDS: hydrALAZINE 50 MG Tablet PO (13:59)
[2024-03-30] MEDS: Tacrolimus Anhydrous 1 MG Capsule 2 MG PO ×2 (13:59→22:10)
[2024-03-30] MEDS: TOBRAMYCIN IV (14:00)
[2024-03-30] MEDS: SEVELAMER CARBONATE 800 MG TABLET 2400 MG PO ×2 (14:00→17:27)
[2024-03-30] MEDS: Pantoprazole Sodium 40 MG Tablet PO (14:00)
[2024-03-30] MEDS: WATER IV (14:00)
[2024-03-30] MEDS: DEXTROSE 5% IV (14:00)
[2024-03-30 16:54] LABS: Bedside Glucose 85 mg/dL (74-106)
[2024-03-30] MEDS: APIXABAN 5 MG TABLET PO (22:06)
[2024-03-30] MEDS: hydrALAZINE 50 MG Tablet 75 MG PO (22:08)
[2024-03-30] MEDS: Escitalopram Oxalate 10 MG Tablet 15 MG PO (22:08)
[2024-03-30] MEDS: Amox/Clavulanate 500 MG Tablet PO (22:08)
[2024-03-30] MEDS: Atorvastatin Calcium 40 MG Tablet PO (22:08)
[2024-03-30] MEDS: Ascorbic Acid 500 MG Tablet PO (22:10)
[2024-03-30] MEDS: Clotrimazole/Betamethasone 1 Tube 1 APPLIC TOPICAL (22:24)
[2024-03-30 22:38] LABS: Bedside Glucose 76 mg/dL (74-106)
[2024-03-30] MEDS: 0.9% Saline Lock 10 ML Syringe IV (23:14)
--- NOTE | 2024-03-30 23:59 | NURSING ---
BG 76 at HS. Pt refused snack but drank coke.
[2024-03-31] VITALS (7 sets, daily range): BP systolic 154–166; BP diastolic 65–99; PULSE 72–82; RESP 14–16; TEMP 36.2–37.2; O2SAT 92–98; BMI 38.5
[2024-03-31] MEDS: Levothyroxine 150 MCG Tablet PO (04:41)
[2024-03-31] MEDS: hydrALAZINE 50 MG Tablet 75 MG PO (04:41)
[2024-03-31 07:42] LABS: Absolute Lymphocyte Count 2.39 X10^3/uL (0.83-4.51); Absolute Neutrophil Count 5.5 X10^3/uL (2.0-7.7); Basophil# 0.09 X10^3/uL; Basophil% 0.9 % (0-1); Eosinophil# 0.67 X10^3/uL; Hematocrit 30.5 % (40-54); Hemoglobin 9.1 g/dL (13.0-16.5); Lymphocyte # 2.39 X10^3/ul (0.83-4.51); Lymphocyte % 24.9 % (19-41); Mean Corp Hgb Conc 29.8 g/dL (32-36); Mean Corpuscular Hgb 26.8 pg (27.0-32.0); Mean Corpuscular Volume 89.7 fL (80-94); Mean Platelet Vol. 10.4 fl (6.2-12.0); Monocyte# 0.94 X10^3/uL; Monocyte% 9.8 % (0-10); NRBC Flagged by Analyzer 0 % (0-5); Neutrophil # 5.45 X10^3/uL (2.7-7.7); Platelet Count 214 K/mm3 (150-450); RBC Distribution Width CV 17.2 % (11.6-14.6); RBC Distribution Width SD 55.9 fl (35.1-43.9); White Blood Count 9.6 K/mm3 (4.4-11.0)
[2024-03-31] MEDS: SEVELAMER CARBONATE 800 MG TABLET 2400 MG PO (08:09)
[2024-03-31 08:11] LABS: Anion Gap 10 (5-15); BUN 57 mg/dL (7-18); BUN/Creat Ratio 5.7 RATIO (10-20); Calcium,Total 9.4 mg/dL (8.5-10.1); Chloride 100 mmol/L (98-107); EST Glomerular Filtration Rate 6 mL/min (>60); Est Glom Filt Rate - Afr Amer 8 mL/min (>60); Estimated Creatinine Clearance 14.17 ml/min; Glucose 90 mg/dL (74-106); Potassium 4.9 mmol/L (3.5-5.1); Sodium Level 134 mmol/L (136-145)
--- NOTE | 2024-03-31 08:14 | PN.HOSP_ITS ---
Reason for Visit Reason for Visit: Diagnoses Unspecified infectious disease (03/29/24) Encephalopathy, unspecified (03/29/24) Metabolic encephalopathy (03/29/24) Other encephalopathy (03/29/24) Hypertensive urgency (03/29/24) Hypertensive emergency (03/29/24) Pressure ulcer of left buttock, unspecified stage (03/29/24) Pressure ulcer of unspecified site, unspecified stage (03/29/24) Osteomyelitis, unspecified (03/29/24) End stage renal disease (03/29/24) Epistaxis (03/29/24) Dependence on renal dialysis (03/29/24) Subjective Subjective Denies complaints. Objective Data Objective Data Vital Signs: Vital Signs Temp Pulse Resp BP Pulse Ox O2 Del Method 36.2 C L 81 16 165/99 H 94 Room Air 03/31/24 07:43 03/31/24 07:43 03/31/24 07:43 03/31/24 07:43 03/31/24 07:58 03/31/24 07:58 Oxygen Delivery Method Room Air Weight: 128.9 kg Body Mass Index (BMI) 38.5 Intake & Output: Intake and Output for Last 24 Hours 03/29/24 03/30/24 03/31/24 23:59 23:59 23:59 Intake Total 1908.27 / 1908.27 154.75 / 154.75 50 / 50 Output Total 3210 / 3210 0 / 0 Balance 1878.27 / 1878.27 -3055.25 / -3055.25 50 / 50 Lab / Micro Data 03/31/24 06:34 03/31/24 06:34 Labs: Laboratory Results - last 24 hr 03/30/24 06:55: Sodium 137, Potassium 5.4 H, Chloride 101, Carbon Dioxide 22.0, Anion Gap 14, BUN 74 H, Creatinine 12.50 H*, Estim Creat Clear Calc 11.34, Est GFR (MDRD) Af Amer 6 L, Est GFR (MDRD) Non-Af 5 L, BUN/Creatinine Ratio 5.9 L, Glucose 85, Calcium 9.2 03/30/24 12:24: POC Glucose 86 03/30/24 16:28: POC Glucose 85 03/30/24 22:18: POC Glucose 76 03/31/24 06:34: WBC 9.6, RBC 3.40 L, Hgb 9.1 L, Hct 30.5 L, MCV 89.7, MCH 26.8 L , MCHC 29.8 L, RDW Std Deviation 55.9 H, RDW Coeff of Shanta 17.2 H, Plt Count 214, MPV 10.4, Immature Gran % (Auto) 0.400, Neut % (Auto) 57.0, Lymph % (Auto) 24.9, [place] % (Auto) 9.8, Eos % (Auto) 7.0 H, Baso % (Auto) 0.9, Absolute Neuts (auto) 5.5, Absolute Lymphs (auto) 2.39, Nucleated RBC % 0, Sodium 134 L, Potassium 4.9, Chloride 100, Carbon Dioxide 24.0, Anion Gap 10, BUN 57 H, Creatinine 10.00 H*, Estim Creat Clear Calc 14.17, Est GFR (MDRD) Af Amer 8 L, Est GFR (MDRD) Non-Af 6 L, BUN/Creatinine Ratio 5.7 L, Glucose 90, Calcium 9.4 Physical Exam Const alert and no apparent distress Constitutional Narrative: listless. afebrile. HEENT head/scalp atraumatic and moist oral mucous membranes Resp normal respiratory effort and no retractions Cardio regular rate, regular rhythm, S1 normal heart sound and S2 normal heart sound GI normal to inspection, nondistended, normoactive bowel sounds, soft to palpation, non-tender and non-distended Assessment & Plan Assessment/Plan (1) Metabolic encephalopathy: PLAN: Improved 2/2 hypertensive emergency (BP up to 241/97) + medications (oxycodone) + infectious (decubutus ulcer) Correct the underlying processes, hold potentiating medications. Head CT negative. (2) Hypertensive emergency: PLAN: POA. Subsequently improved Continue with carvedilol 12.5 BID, hydralazine 50 TID. Hold midodrine (receives on HD days). Will increase againg the hydralazine to 100 3 times daily. (3) Decubitus ulcer: PLAN: CT unremarkable Seen by PRS: likely chronic osteomyelitis as it probes down to the bone. Seen by ID last week (separate admission) for this and recommended 6 weeks of Tobramycin with HD and PO augmentin. Though, currently, just on Augmentin. Follow up with wound care and ID. (4) End-stage renal disease on hemodialysis: PLAN: on HD nephrology following on Sevelamer PLAN: Plan Chronic conditions * History of paraplegia after T5-T6 injury; with patient in wheelchair, neurogenic bladder; with suprapubic catheter with patient still making urine, neurogenic bowel; s/p colostomy, history of Stage IV Left Perineal Ischial region Decubitus Ulcer with Osteomyelitis and SIRS; with patient residing at [facility] adding to the disease burden of #1 - #4 - Noted with CT this admission positive for continued osteomyelitis with possible abscess. Finally, we will consult general surgeon on-call to see this patient for recommendations regarding possible I&D this admission with help appreciated in advance. * Obesity class III: Complicates care and recovery * History of DVT/PE: Apixaban * Hyperlipidemia: Continue statin * Hypothyroidism: Continue with levothyroxine. TSH within normal limits. * DM-2: On glargine 11 units currently as well as sliding scale. and AM and PM scheduled log. * History of pericardial effusion: Patient has no echocardiogram in our system. Will check. * Anemia of chronic disease: Stable. * Depression: Hold escitalopram given the encephalopathy. * GERD: Continue PPI * s/p renal x-plant: on tacrolimus VTE prophylaxis: not indicated as already on apixaban. Charges/Coding Visit Charges Inpatient E&M: 31147 Subs Hosp L2
[2024-03-31 08:33] LABS: Bedside Glucose 82 mg/dL (74-106)
--- NOTE | 2024-03-31 09:32 | PCM.PN.SRG ---
Subjective Subjective Doing well. More lucid today. He did not know he was in [place], but I told him. Talked about his wound care regimen. Objective Data Objective Data Vital Signs: Vital Signs Temp Pulse Resp BP Pulse Ox O2 Del Method 97.1 F L 81 16 165/99 H 94 Room Air 03/31/24 07:43 03/31/24 07:43 03/31/24 07:43 03/31/24 07:43 03/31/24 07:58 03/31/24 07:58 Oxygen Delivery Method Room Air Weight: 284 lb 2.813 oz Body Mass Index (BMI) 38.5 Intake & Output: Intake and Output for Last 24 Hours 03/29/24 03/30/24 03/31/24 23:59 23:59 23:59 Intake Total 1908.27 / 1908.27 154.75 / 154.75 50 / 50 Output Total 3210 / 3210 0 / 0 Balance 1878.27 / 1878.27 -3055.25 / -3055.25 50 / 50 Lab / Micro Data 03/31/24 06:34 03/31/24 06:34 Labs: Laboratory Results - last 24 hr 03/30/24 12:24: POC Glucose 86 03/30/24 16:28: POC Glucose 85 03/30/24 22:18: POC Glucose 76 03/31/24 06:34: WBC 9.6, RBC 3.40 L, Hgb 9.1 L, Hct 30.5 L, MCV 89.7, MCH 26.8 L, MCHC 29.8 L, RDW Std Deviation 55.9 H, RDW Coeff of Shanta 17.2 H, Plt Count 214, MPV 10.4, Immature Gran % (Auto) 0.400, Neut % (Auto) 57.0, Lymph % (Auto) 24.9, [place] % (Auto) 9.8, Eos % (Auto) 7.0 H, Baso % (Auto) 0.9, Absolute Neuts (auto) 5.5, Absolute Lymphs (auto) 2.39, Nucleated RBC % 0, Sodium 134 L, Potassium 4.9, Chloride 100, Carbon Dioxide 24.0, Anion Gap 10, BUN 57 H, Creatinine 10.00 H*, Estim Creat Clear Calc 14.17, Est GFR (MDRD) Af Amer 8 L, Est GFR (MDRD) Non-Af 6 L, BUN/Creatinine Ratio 5.7 L, Glucose 90, Calcium 9.4 03/31/24 08:09: POC Glucose 82 Physical Exam Narrative Left ischial wound Seen and examined today. Packing in place and no bleeding. No signs of fluid collections The wound was 4 x 4 cm and tract 5 cm. Stage IV. No signs of induration or cellulitis around the wound. Const alert and oriented x3 Constitutional Narrative: No confusion today. GI GI Narrative: Nasogastric tube in place Assessment & Plan Assessment/Plan (1) Left ischial pressure sore: PLAN: Plan Recommending Dakin's wet to dry dressings 3 times daily while in house Needs pressure offloading with every 2 turns and needs a pressure offloading bed ordered (no pressure on the left ischial wound) Likely chronic osteomyelitis given that it probes down to the bone and he has had positive cultures in the past from recent drainage of abscess at bedside. No abscess on advancement imaging (reviewed) Plastics will continue to follow for the ischial wound Charges/Coding Visit Charges Inpatient E&M: 32307 Subs Hosp L1
--- NOTE | 2024-03-31 09:54 | CASEMGMT ---
Discharge Planning Updates sent to [facility] via [employer]. Selina Sylvester DC Planning Asst.
--- NOTE | 2024-03-31 11:30 | CASEMGMT ---
Social Work- SW met with pt to discuss preferences at d/c. Pt reports that he wants to return to [facility]. SW advised DCA. SW to follow for d/c needs. DAMARI Rasheed
[2024-03-31] MEDS: DAKIN'S SOL HALF STRENGTH (=0.25%) TOPICAL ×2 (11:32→23:05)
[2024-03-31 11:49] LABS: Bedside Glucose 83 mg/dL (74-106)
--- NOTE | 2024-03-31 14:30 | PCM.PN.REN ---
Subjective Subjective no new events Objective Data Objective Data Vital Signs: Vital Signs Temp Pulse Resp BP Pulse Ox O2 Del Method 97.7 F L 82 16 164/65 H 93 Room Air 03/31/24 14:11 03/31/24 14:11 03/31/24 14:11 03/31/24 14:11 03/31/24 14:11 03/31/24 14:11 Oxygen Delivery Method Room Air Weight: 128.9 kg Body Mass Index (BMI) 38.5 Intake & Output: Intake and Output for Last 24 Hours 03/29/24 03/30/24 03/31/24 23:59 23:59 23:59 Intake Total 1908.27 / 1908.27 154.75 / 154.75 50 / 50 Output Total 3210 / 3210 0 / 0 Balance 1878.27 / 1878.27 -3055.25 / -3055.25 50 / 50 Lab / Micro Data 03/31/24 06:34 03/31/24 06:34 Labs: Laboratory Results - last 24 hr 03/30/24 16:28: POC Glucose 85 03/30/24 22:18: POC Glucose 76 03/31/24 06:34: WBC 9.6, RBC 3.40 L, Hgb 9.1 L, Hct 30.5 L, MCV 89.7, MCH 26.8 L, MCHC 29.8 L, RDW Std Deviation 55.9 H, RDW Coeff of Shanta 17.2 H, Plt Count 214, MPV 10.4, Immature Gran % (Auto) 0.400, Neut % (Auto) 57.0, Lymph % (Auto) 24.9, [place] % (Auto) 9.8, Eos % (Auto) 7.0 H, Baso % (Auto) 0.9, Absolute Neuts (auto) 5.5, Absolute Lymphs (auto) 2.39, Nucleated RBC % 0, Sodium 134 L, Potassium 4.9, Chloride 100, Carbon Dioxide 24.0, Anion Gap 10, BUN 57 H, Creatinine 10.00 H*, Estim Creat Clear Calc 14.17, Est GFR (MDRD) Af Amer 8 L, Est GFR (MDRD) Non-Af 6 L, BUN/Creatinine Ratio 5.7 L, Glucose 90, Calcium 9.4 09/24/24 08:09: POC Glucose 82 03/31/24 11:29: POC Glucose 83 Physical Exam Narrative No apparent distress S1, S2, RRR Lung sounds diminished Abdomen soft No edema right leg Left arm AV fistula accessed for hemodialysis Assessment & Plan Assessment/Plan (1) End-stage renal disease on hemodialysis: (2) Acute encephalopathy: PLAN: Plan This is a 38-year-old male with past medical history significant for ESRD admitted for acute encephalopathy likely multifactorial who undergoes hemodialysis at [facility] Saturday, Saturday, , Saturday schedule. Nephrology consulted as patient has history of ESRD and requires hemodialysis. While patient is in hospital we will maintain a hemodialysis schedule of Saturday, unless acute need arises. Patient has history of anemia of chronic disease, hemoglobin is 8.9. He receives long-acting REILLY with dialysis at the [facility]. Will monitor hemoglobin trends.
[2024-03-31 16:32] LABS: Bedside Glucose 74 mg/dL (74-106)
[2024-03-31] MEDS: Ondansetron 4 MG/2 ML Vial IV (19:52)
[2024-03-31] MEDS: hydrALAZINE 50 MG Tablet 100 MG PO (23:01)
[2024-03-31] MEDS: Tacrolimus Anhydrous 1 MG Capsule 2 MG PO (23:01)
[2024-03-31] MEDS: Gabapentin 100 MG Capsule 200 MG PO (23:01)
[2024-03-31] MEDS: Carvedilol 12.5 MG Tablet PO (23:03)
[2024-03-31] MEDS: Escitalopram Oxalate 10 MG Tablet 15 MG PO (23:03)
[2024-03-31] MEDS: Atorvastatin Calcium 40 MG Tablet PO (23:04)
[2024-03-31] MEDS: Clotrimazole/Betamethasone 1 Tube 1 APPLIC TOPICAL (23:04)
[2024-03-31] MEDS: APIXABAN 5 MG TABLET PO (23:04)
[2024-03-31] MEDS: Ascorbic Acid 500 MG Tablet PO (23:04)
[2024-03-31] MEDS: Amox/Clavulanate 500 MG Tablet PO (23:04)
[2024-03-31 23:56] LABS: Bedside Glucose 91 mg/dL (74-106)
[2024-04-01] VITALS (14 sets, daily range): BP systolic 110–285; BP diastolic 43–93; PULSE 77–87; RESP 14–18; TEMP 36.5–36.6; O2SAT 95–100; BMI 38.5; BMI 37.6
[2024-04-01 07:03] LABS: Absolute Lymphocyte Count 2.18 X10^3/uL (0.83-4.51); Absolute Neutrophil Count 5.7 X10^3/uL (2.0-7.7); Basophil# 0.11 X10^3/uL; Basophil% 1.2 % (0-1); Eosinophil# 0.57 X10^3/uL; Eosinophils% 6.1 % (0-5); Hematocrit 30.7 % (40-54); Lymphocyte # 2.18 X10^3/ul (0.83-4.51); Lymphocyte % 23.1 % (19-41); Mean Corp Hgb Conc 29.3 g/dL (32-36); Mean Corpuscular Hgb 26.6 pg (27.0-32.0); Mean Corpuscular Volume 90.8 fL (80-94); Mean Platelet Vol. 10.6 fl (6.2-12.0); Monocyte# 0.88 X10^3/uL; Monocyte% 9.3 % (0-10); NRBC Flagged by Analyzer 0 % (0-5); Neutrophil # 5.65 X10^3/uL (2.7-7.7); Platelet Count 226 K/mm3 (150-450); RBC Distribution Width CV 16.8 % (11.6-14.6); RBC Distribution Width SD 55.8 fl (35.1-43.9); Red Blood Count 3.38 M/mm3 (4.6-6.2); White Blood Count 9.4 K/mm3 (4.4-11.0)
[2024-04-01] MEDS: hydrALAZINE 50 MG Tablet 100 MG PO ×2 (07:09→14:44)
[2024-04-01] MEDS: Levothyroxine 150 MCG Tablet PO (07:10)
[2024-04-01 07:36] LABS: Anion Gap 10 (5-15); BUN 65 mg/dL (7-18); BUN/Creat Ratio 5.7 RATIO (10-20); Calcium,Total 9.3 mg/dL (8.5-10.1); Chloride 101 mmol/L (98-107); EST Glomerular Filtration Rate 5 mL/min (>60); Est Glom Filt Rate - Afr Amer 7 mL/min (>60); Estimated Creatinine Clearance 12.32 ml/min; Glucose 90 mg/dL (74-106); Potassium 5.7 mmol/L (3.5-5.1); Sodium Level 135 mmol/L (136-145)
[2024-04-01] MEDS: 0.9% Normal Saline 1,000 ML IV.SOLN. 1000 ML OPERA.SITE (07:54)
[2024-04-01] MEDS: PureFlow B 2K Dialysis Soln 1 BAG 6 BAG PF (08:04)
--- NOTE | 2024-04-01 08:33 | PN.HOSP_ITS ---
Reason for Visit Reason for Visit: Diagnoses Unspecified infectious disease (03/29/24) Encephalopathy, unspecified (03/29/24) Metabolic encephalopathy (03/29/24) Other encephalopathy (03/29/24) Hypertensive urgency (03/29/24) Hypertensive emergency (03/29/24) Pressure ulcer of left buttock, unspecified stage (03/29/24) Pressure ulcer of unspecified site, unspecified stage (03/29/24) Osteomyelitis, unspecified (03/29/24) End stage renal disease (03/29/24) Epistaxis (03/29/24) Dependence on renal dialysis (03/29/24) Subjective Subjective Feel ok. No complaints. Objective Data Objective Data Vital Signs: Vital Signs Temp Pulse Resp BP Pulse Ox O2 Del Method O2 Flow Rate 36.6 C 83 14 137/79 H 98 Nasal Cannula 2 04/01/24 03:00 04/01/24 07:57 04/01/24 07:57 04/01/24 07:57 04/01/24 07:10 04/01/24 07:57 04/01/24 07:57 Oxygen Flow Rate (L/min) 2 Oxygen Delivery Method Nasal Cannula Weight: 128.9 kg Body Mass Index (BMI) 38.5 Intake & Output: Intake and Output for Last 24 Hours 03/30/24 03/31/24 04/01/24 23:59 23:59 23:59 Intake Total 154.75 / 154.75 50 / 50 Output Total 3210 / 3210 3210 / 3210 Balance -3055.25 / -3055.25 -3160 / -3160 Lab / Micro Data 04/01/24 06:00 04/01/24 06:00 Labs: Laboratory Results - last 24 hr 03/31/24 08:09: POC Glucose 82 03/31/24 11:29: POC Glucose 83 03/31/24 16:12: POC Glucose 74 03/31/24 22:49: POC Glucose 91 04/01/24 06:00: WBC 9.4, RBC 3.38 L, Hgb 9.0 L, Hct 30.7 L, MCV 90.8, MCH 26.6 L , MCHC 29.3 L, RDW Std Deviation 55.8 H, RDW Coeff of Shanta 16.8 H, Plt Count 226, MPV 10.6, Immature Gran % (Auto) 0.300, Neut % (Auto) 60.0, Lymph % (Auto) 23.1, [place] % (Auto) 9.3, Eos % (Auto) 6.1 H, Baso % (Auto) 1.2 H, Absolute Neuts (auto) 5.7, Absolute Lymphs (auto) 2.18, Nucleated RBC % 0, Sodium 135 L, P otassium 5.7 H, Chloride 101, Carbon Dioxide 24.0, Anion Gap 10, BUN 65 H, C reatinine 11.50 H*, Estim Creat Clear Calc 12.32, Est GFR (MDRD) Af Amer 7 L, E st GFR (MDRD) Non-Af 5 L, BUN/Creatinine Ratio 5.7 L, Glucose 90, Calcium 9.3, Random Tobramycin 4.80 Physical Exam Const alert and no apparent distress Constitutional Narrative: flat affect. HEENT head/scalp atraumatic and moist oral mucous membranes Resp normal respiratory effort and no retractions Cardio regular rate, regular rhythm, S1 normal heart sound and S2 normal heart sound GI normal to inspection, nondistended, normoactive bowel sounds, soft to palpation, non-tender and non-distended Assessment & Plan Assessment/Plan (1) Metabolic encephalopathy: PLAN: Improved 2/2 hypertensive emergency (BP up to 241/97) + medications (oxycodone) + infectious (decubitus ulcer) Correct the underlying processes, hold potentiating medications. Head CT negative. (2) Hypertensive emergency: PLAN: POA. Subsequently improved Continue with carvedilol 12.5 BID, hydralazine 50 TID. Hold midodrine (receives on HD days). Will increase againg the hydralazine to 100 3 times daily. BP improved (3) Decubitus ulcer: PLAN: CT unremarkable Seen by PRS: likely chronic osteomyelitis as it probes down to the bone. Seen by ID last week (separate admission) for this and recommended 6 weeks of Tobramycin with HD and PO augmentin through 05/06. Though, currently, just on Augmentin. Follow up with wound care and ID. (4) End-stage renal disease on hemodialysis: PLAN: on HD nephrology following on Sevelamer PLAN: Plan Chronic conditions * History of paraplegia after T5-T6 injury; with patient in wheelchair, neurogenic bladder; with suprapubic catheter with patient still making urine, neurogenic bowel; s/p colostomy, history of Stage IV Left Perineal Ischial region Decubitus Ulcer with Osteomyelitis and SIRS; with patient residing at [facility] adding to the disease burden of #1 - #4 - Noted with CT this admission positive for continued osteomyelitis with possible abscess. Finally, we will consult general surgeon on-call to see this patient for recommendations regarding possible I&D this admission with help appreciated in advance. * Obesity class III: Complicates care and recovery * History of DVT/PE: Apixaban * Hyperlipidemia: Continue statin * Hypothyroidism: Continue with levothyroxine. TSH within normal limits. * DM-2: On glargine 11 units currently as well as sliding scale. and AM and PM scheduled log. * Anemia of chronic disease: Stable. * Depression: Hold escitalopram given the encephalopathy. * GERD: Continue PPI * s/p renal x-plant: on tacrolimus VTE prophylaxis: not indicated as already on apixaban.
--- NOTE | 2024-04-01 08:37 | PHA.PHARE_ITS ---
Consult Antibiotic Management Pharmacy has been consulted to manage selected antibiotic: Tobramycin Type of Intervention Type of Consult: Follow-up Prior Doses of Antibiotics Prior Doses of Antibiotics Received/Current Regimen: received tobramycin 190mg x1 on 03/30/24 at 14:00 Labs Labs: Sodium 135 mmol/L (136-145) L 04/01/24 06:00 Potassium 5.7 mmol/L (3.5-5.1) H 04/01/24 06:00 Chloride 101 mmol/L (98-107) 04/01/24 06:00 Carbon Dioxide 24.0 mmol/L (21.0-32.0) 04/01/24 06:00 Anion Gap 10 (5-15) 04/01/24 06:00 BUN 65 mg/dL (7-18) H 04/01/24 06:00 Creatinine 11.50 mg/dL (0.70-1.30) H* 04/01/24 06:00 Est GFR (MDRD) Af Amer 7 mL/min (>60) L 04/01/24 06:00 Est GFR (MDRD) Non-Af 5 mL/min (>60) L 04/01/24 06:00 BUN/Creatinine Ratio 5.7 RATIO (10-20) L 04/01/24 06:00 Glucose 90 mg/dL (74-106) 04/01/24 06:00 Random Tobramycin 4.80 ug/mL 04/01/24 06:00 Dosing Weight Weight used for dosin kg Estimated Creatinine Clearance Estimated Creatinine Clearance: on HD Pharmacy Plan for Drug Dosing Pharmacy Plan for Drug Dosing: The random tobra level drawn pre-HD today was 4.8 mcg/ml. This is above the re- dose threshold of <1 mcg/ml (for peak goal 3-5) so no dose will be needed today after HD. Will re-order another tobra random level for pre-HD on Saturday as the patient is getting HD on a // schedule here. Pharmacy Service will continue to monitor and adjust dosing as required. Follow-Up Labs Follow-Up Labs: Trough: Tobramycin (random pre-HD) Date/Time Labs Ordered Labs to be done on [date and time ordered]: 04/03/24 0600
[2024-04-01 10:14] LABS: Bedside Glucose 94 mg/dL (74-106)
[2024-04-01] MEDS: DAKIN'S SOL HALF STRENGTH (=0.25%) TOPICAL (12:55)
[2024-04-01] MEDS: Carvedilol 12.5 MG Tablet PO (12:55)
[2024-04-01] MEDS: Tacrolimus Anhydrous 1 MG Capsule 2 MG PO (12:55)
[2024-04-01] MEDS: APIXABAN 5 MG TABLET PO (12:55)
[2024-04-01] MEDS: SEVELAMER CARBONATE 800 MG TABLET 2400 MG PO ×2 (12:56→17:02)
[2024-04-01] MEDS: Pantoprazole Sodium 40 MG Tablet PO (12:56)
[2024-04-01] MEDS: Gabapentin 100 MG Capsule 200 MG PO (13:02)
[2024-04-01] MEDS: Juven (unflavored) Packet 1 PACKET PO (13:03)
[2024-04-01 13:09] LABS: Bedside Glucose 99 mg/dL (74-106)
--- NOTE | 2024-04-01 13:18 | TREXTCAR_ITS ---
Diet Diet Order/Speech Therapy: 03/29/24 18:32 Diet: Renal - ConsCHO - Eulogio Cont Food consistency:: Regular Liquid Consistency:: Regular/Thin Type of Dietary Supplement:: Nepro Diet Comments: 120mL Nepro 3 times per day with meals, supervised feed How many daily calories?: 2000 calorie Routine Orders/Code Status Routine Lab Work: CBC (weekly) and BMP (weekly) Code Status: Full Code Wound(s) left ischial wound: Wound Type: Pressure Injury Dressing Change: Dakins moistened gauze right foot: Wound Type: Neuropathic/Diabetic Foot Ulcer left arm dialysis shunt: Wound Type: scabs L nares nasal rocket: Wound Type: nasal rocket Therapies Physical Therapy: Eval and Treat Occupational Therapy: Eval and Treat Problem/Diagnosis (1) Metabolic encephalopathy: Status: Acute Code(s): G93.41 - Metabolic encephalopathy Plan: Improved 2/2 hypertensive emergency (BP up to 241/97) + medications (oxycodone) + infectious (decubitus ulcer) Correct the underlying processes, hold potentiating medications. Head CT negative. (2) Hypertensive emergency: Status: Acute Code(s): I16.1 - Hypertensive emergency Plan: POA. Subsequently improved Continue with carvedilol 12.5 BID, hydralazine 50 TID. Hold midodrine (receives on HD days). Will increase againg the hydralazine to 100 3 times daily. BP improved (3) Decubitus ulcer: Status: Acute Code(s): L89.90 - Pressure ulcer of unspecified site, unspecified stage Plan: CT unremarkable Seen by PRS: likely chronic osteomyelitis as it probes down to the bone. Seen by ID last week (separate admission) for this and recommended 6 weeks of Tobramycin with HD and PO augmentin through 05/06. Though, currently, just on Augmentin. Follow up with wound care and ID. (4) End-stage renal disease on hemodialysis: Status: Acute Code(s): N18.6 - End stage renal disease; Z99.2 - Dependence on renal dialysis Plan: on HD nephrology following on Sevelamer Plan Chronic conditions * History of paraplegia after T5-T6 injury; with patient in wheelchair, neurogenic bladder; with suprapubic catheter with patient still making urine, neurogenic bowel; s/p colostomy, history of Stage IV Left Perineal Ischial region Decubitus Ulcer with Osteomyelitis and SIRS; with patient residing at [facility] adding to the disease burden of #1 - #4 - Noted with CT this admission positive for continued osteomyelitis with possible abscess. Finally, we will consult general surgeon on-call to see this patient for recommendations regarding possible I&D this admission with help appreciated in advance. * Obesity class III: Complicates care and recovery * History of DVT/PE: Apixaban * Hyperlipidemia: Continue statin * Hypothyroidism: Continue with levothyroxine. TSH within normal limits. * DM-2: On glargine 11 units currently as well as sliding scale. and AM and PM scheduled log. * Anemia of chronic disease: Stable. * Depression: Hold escitalopram given the encephalopathy. * GERD: Continue PPI * s/p renal x-plant: on tacrolimus VTE prophylaxis: not indicated as already on apixaban. Allergies/Procedures Done in Hospital Allergies No Known Allergies Allergy (Verified 02/18/24 04:45) Procedures: None Type of Care/Length of Stay Estimated LOS: Convalescent Care Less Than 30 days Type of Care Needed: Skilled Rehab Potential: Fair Prognosis: Fair Additional Orders/Day of Discharge Day of Discharge: 04/01/24 Dietary and Speech Recommendations Dietitian Recommendations/Changes: Will adjust diet to 2000 calorie consistent carbohydrate; Renal general diet. Will add Kalyan BID to support wound healing. Will add 120mL PO Nepro TID w/ meals. Additional ONS as needed once PO better established with meals. Discharge Plan Admission Admit Date/Time: 03/29/24 00:15 Primary Reason for Your Visit: encephalopathy. hypertensive urgency. Attending Provider: Ben Schwartz Primary Care Provider: Vanessa Hutchins Consulting Providers: Ansley Peña; Olga Moore; Jabari Medeiros; Jabari Del Angel; Danitza Roca Discharge Orders/Prescriptions Prescriptions: New amoxicillin-pot clavulanate 500-125 mg Tablet 1 tab PO QPM 35 Days Qty: 35 0RF Rx Instructions: give after dialysis when dosing on dialysis days tobramycin sulfate 40 mg/mL solution 100 mg IV Q24H 35 Days Qty: 87.5 0RF Rx Instructions: IV tobramycin, 150mg given with dialysis on Mon, Tu, Th, and Fri. Stop date 05/06/24. Twice weekly bmp, cbc, tobramycin trough prior to HD, and esr. Fax to [phone]. hydralazine 50 mg Tablet 100 mg PO TID Qty: 0 0RF Kalyan (with collagen) 7-7-1.5 gram Powder In Packet 1 packet PO BIDCM Qty: 0 0RF melatonin 3 mg Tablet 3 mg PO QHS PRN PRN (Reason: Insomnia) Qty: 0 0RF HySept 0.25 % Solution See Protocol topical BID Qty: 0 0RF Protocol: *Topical Application Instructions APPLICATION INSTRUCTIONS: ischial wound dressing change BID, cleanse area with saline, pack tightly with FULL strength dakins soaked kerlix Continued atorvastatin 40 mg Tablet 40 mg PO QHS acetaminophen 325 mg Tablet 650 mg PO Q4H PRN (Reason: PAIN/FEVER) carvedilol 12.5 mg Tablet 12.5 mg PO Q12H Rx Instructions: must administer with a meal/food ascorbic acid (vitamin C) 500 mg Tablet 500 mg PO QHS bisacodyl 10 mg Suppository 10 mg PA DAILY PRN (Reason: Constipation) dextrose [Glucose Gel] 40 % Gel 15 g PO Q15M PRN (Reason: Hypoglycemia) Rx Instructions: until symptoms of low blood sugar are controlled Eliquis 5 mg Tablet 5 mg PO BID pantoprazole 40 mg Tablet,Delayed Release (Dr/Ec) 40 mg PO DAILY Rx Instructions: in am clotrimazole-betamethasone 1-0.05 % Cream 1 applic TOPICAL QHS Rx Instructions: apply to face tacrolimus [Prograf] 1 mg Capsule 2 mg PO Q12H polyethylene glycol 3350 17 gram Powder In Packet 17 g PO DAILY PRN (Reason: constipation) ondansetron HCl 4 mg Tablet 4 mg PO Q8H PRN PRN (Reason: Nausea) Senna Plus 8.6-50 mg Capsule 1 tab-cap PO BID gabapentin 100 mg capsule 200 mg PO BID sevelamer HCl 800 mg tablet 2,400 mg PO TIDCM Rx Instructions: must administer with a meal/food levothyroxine 150 mcg tablet 150 mcg PO DAILY@0600 Patient Comments: [place] PT TAKES IN THE AM acetaminophen 650 mg suppository 650 mg PA Q4H PRN (Reason: fever or pain) magnesium hydroxide [Milk of Magnesia] 400 mg/5 mL suspension 30 ml PO DAILY PRN (Reason: constipation) glucagon 1 mg kit 1 mg subcut X1 PRN (Reason: hypoglycemia) Benadryl Extra Strength 2-0.1 % cream 1 applic topical Q6H PRN PRN (Reason: itching) ciclopirox 8 % solution 1 applic topical QHS Rx Instructions: right thumb escitalopram oxalate [Lexapro] 10 mg tablet 15 mg PO QHS B complex-vitamin C-folic acid 0.8 mg tablet 1 tab PO DAILY insulin lispro 100 unit/mL insulin pen See Protocol subcut TIDCM Protocol: 6. Sliding Scale Insulin Custom Condition: 180-200 mg/dl range Dose/Route: 2 Number of Units Condition: 201-250 Dose/Route: 3 Condition: 251-300 Dose/Route: 4 Condition: 301-350 Dose/Route: 5 Condition: 351-400 Dose/Route: 6 Condition: 401-450 Dose/Route: 7 Condition: >451 Dose/Route: call MD Protocol Text: Custom Sliding Scale guaifenesin [Adult Tussin Chest Congestion] 100 mg/5 mL liquid 200 mg PO Q4H PRN (Reason: cough) Discontinued insulin lispro [Humalog KwikPen Insulin] 100 unit/mL Insulin Pen 6 unit SUBCUT QHS trazodone 50 mg Tablet 50 mg PO QHS hydralazine 25 mg Tablet 50 mg PO Q8 midodrine 10 mg Tablet 10 mg PO MOTUTHFR Rx Instructions: TAKE 1 TAB BY MOUTH EVERY SATURDAY, SATURDAY, SATURDAY, AND SATURDAY for hypotension prior to dialysis Hold BP >130/90 insulin glargine [Lantus Solostar U-100 Insulin] 100 unit/mL (3 mL) Insulin Pen 11 unit SUBCUT 1700 promethazine 12.5 mg Tablet 12.5 mg PO Q8H PRN (Reason: Nausea) oxycodone 10 mg tablet 10 mg PO Q4H PRN (Reason: pain) 2 Days Qty: 12 0RF insulin lispro [Humalog KwikPen Insulin] 100 unit/mL insulin pen 9 unit subcut DAILY Rx Instructions: in am insulin lispro 100 unit/mL solution 6 unit subcut DAILY@1700 amoxicillin-pot clavulanate [Augmentin] 500-125 mg tablet 1 tab PO DAILY Qty: 40 0RF Rx Instructions: Give after dialysis on HD days. tobramycin sulfate 40 mg/mL solution 150 mg IV Q24H 39 Days Patient Comments: HAS NOT STARTED OF 03/28 Rx Instructions: IV tobramycin, 150mg given with dialysis on Mon, , , and Sat. Stop date 05/06/24. Twice weekly bmp, cbc, tobramycin trough prior to HD, and esr. Fax to [phone]. aluminum-magnesium hydroxide 225-200 mg/5 mL suspension 30 ml PO Q4H PRN insulin glargine [Lantus U-100 Insulin] 100 unit/mL solution 11 unit subcut QHS hydralazine 50 mg tablet 50 mg PO TID Referrals / Follow Up: Vanessa Hutchins MD [Primary Care Provider] - Within 2 Weeks Jabari Medeiros MD [Med Staff - Active Staff] - Within 2 Weeks Disposition Disposition (needs filled in before D/C Order can be placed): [facility]
--- NOTE | 2024-04-01 13:26 | DS.PCM_ITS ---
Providers Date of Admission: 03/29/24 Primary Care Physician: Dr. Vanessa Hutchins MD Consultations 03/29/24 00:50 Consult: Infectious Disease Routine Consulting Provider: Jabari Medeiros Reason for Consult: Osteo, UTI EMERGENT Consult: No Notified: Yes Date Notified: 03/29/24 Time Notified: 06:39 Method of Notification: Answering Service Consult: Nephrology Routine Consulting Provider: Ansley Peña Reason for Consult: ESRD on HD, missed last HD. EMERGENT Consult: No Notified: Yes Date Notified: 03/29/24 Time Notified: 07:01 Method of Notification: Answering Service Consult: Onc/Wound/digital sales planner Routine Comment: Reason for Consult:: decubitous ulcers 03/29/24 16:19 Consult: Onc/Wound/digital sales planner Routine Comment: Reason for Consult:: wounds/ was to have wound vac placed 03/30 at wound center Comments:: known to you, just discharged 03/2703/30/24 07:00 Consult: Plastic Surgery Routine Consulting Provider: Jabari Del Angel Reason for Consult: Decubtious ulcer/osteo EMERGENT Consult: No Notified: Yes Date Notified: 03/29/24 Time Notified: 06:43 Method of Notification: Text Reason For Visit: ENCEPHALOPATHY ISCHIAL OSTEOMYELITIS COMPLICATED Diagnosis Discharge Diagnosis (1) Metabolic encephalopathy: Status: Acute Code(s): G93.41 - Metabolic encephalopathy Plan: Improved 2/2 hypertensive emergency (BP up to 241/97) + medications (oxycodone) + infectious (decubitus ulcer) Correct the underlying processes, hold potentiating medications. Head CT negative. (2) Hypertensive emergency: Status: Acute Code(s): I16.1 - Hypertensive emergency Plan: POA. Subsequently improved Continue with carvedilol 12.5 BID, hydralazine 50 TID. Hold midodrine (receives on HD days). Will increase againg the hydralazine to 100 3 times daily. BP improved (3) Decubitus ulcer: Status: Acute Code(s): L89.90 - Pressure ulcer of unspecified site, unspecified stage Plan: CT unremarkable Seen by PRS: likely chronic osteomyelitis as it probes down to the bone. Seen by ID last week (separate admission) for this and recommended 6 weeks of Tobramycin with HD and PO augmentin through 05/06. Though, currently, just on Augmentin. Follow up with wound care and ID. (4) End-stage renal disease on hemodialysis: Status: Acute Code(s): N18.6 - End stage renal disease; Z99.2 - Dependence on renal dialysis Plan: on HD nephrology following on Sevelamer Plan Chronic conditions * History of paraplegia after T5-T6 injury; with patient in wheelchair, neurogenic bladder; with suprapubic catheter with patient still making urine, neurogenic bowel; s/p colostomy, history of Stage IV Left Perineal Ischial region Decubitus Ulcer with Osteomyelitis and SIRS; with [facility] adding to the disease burden of #1 - #4 - Noted with CT this admission positive for continued osteomyelitis with possible abscess. Finally, we will consult general surgeon on-call to see this patient for recommendations regarding possible I&D this admission with help appreciated in advance. * Obesity class III: Complicates care and recovery * History of DVT/PE: Apixaban * Hyperlipidemia: Continue statin * Hypothyroidism: Continue with levothyroxine. TSH within normal limits. * DM-2: On glargine 11 units currently as well as sliding scale. and AM and PM scheduled log. * Anemia of chronic disease: Stable. * Depression: Hold escitalopram given the encephalopathy. * GERD: Continue PPI * s/p renal x-plant: on tacrolimus VTE prophylaxis: not indicated as already on apixaban. Medications at Discharge Home Medications acetaminophen 325 mg tablet 650 mg PO Q4H PRN PAIN/FEVER 01/02/23 apixaban 5 mg tablet (Eliquis) 5 mg PO BID blood thinner 01/02/23 ascorbic acid (vitamin C) 500 mg tablet 500 mg PO QHS supplement 01/02/23 atorvastatin 40 mg tablet 40 mg PO QHS hypercholestremia 01/02/23 bisacodyl 10 mg rectal suppository 10 mg NM DAILY PRN Constipation 01/02/23 carvedilol 12.5 mg tablet 12.5 mg PO Q12H HYPERTENSION 01/02/23 clotrimazole-betamethasone 1 %-0.05 % topical cream 1 applic topical QHS rash 01/02/23 dextrose 40 % oral gel (Glucose Gel) 15 g PO Q15M PRN Hypoglycemia 01/02/23 ondansetron HCl 4 mg tablet 4 mg PO Q8H PRN PRN Nausea 01/02/23 pantoprazole 40 mg tablet,delayed release 40 mg PO DAILY gerd 01/02/23 polyethylene glycol 3350 17 gram oral powder packet 17 g PO DAILY PRN constipation 01/02/23 sennosides 8.6 mg-docusate sodium 50 mg capsule (Senna Plus) 1 tab-cap PO BID Constipation 01/02/23 tacrolimus 1 mg capsule, immediate-release (Prograf) 2 mg PO Q12H immunosuppressive 01/02/23 gabapentin 100 mg capsule 200 mg PO BID PHANTOM PAIN 04/21/23 sevelamer HCl 800 mg tablet 2,400 mg PO TIDCM ESRD 04/21/23 levothyroxine 150 mcg tablet 150 mcg PO DAILY@0600 hypothyroidism 07/16/23 acetaminophen 650 mg rectal suppository 650 mg NM Q4H PRN fever or pain 08/06/23 glucagon 1 mg injection kit 1 mg subcut X1 PRN hypoglycemia 08/06/23 magnesium hydroxide 400 mg/5 mL oral suspension (Milk of Magnesia) 30 ml PO DAILY PRN constipation 08/06/23 ciclopirox 8 % topical solution 1 applic topical QHS nail fungus 11/17/23 diphenhydramine-zinc acetate 2 %-0.1 % topical cream (Benadryl Extra Strength) 1 applic topical Q6H PRN PRN itching 12/06/23 escitalopram oxalate 10 mg tablet (Lexapro) 15 mg PO QHS depression 12/30/23 insulin lispro 100 unit/mL subcutaneous pen See Protocol subcut TIDCM 03/22/24 vitamin B complex-vitamin C-folic acid 0.8 mg tablet 1 tab PO DAILY 03/22/24 guaifenesin 100 mg/5 mL oral liquid (Adult Tussin Chest Congestion) 200 mg PO Q4H PRN cough 03/29/24 amoxicillin 500 mg-potassium clavulanate 125 mg tablet 1 tab PO QPM 35 days #35 tabs 04/01/24 arginine 7 gram-glutam 7 gram-CaHMB 1.5 rvng-tbibt-ve-min oral pwd pkt (Kalyan (with collagen)) 1 packet PO BIDCM #0 ea 04/01/24 hydralazine 50 mg tablet 100 mg (2 x 50 mg) PO TID #0 tabs 04/01/24 melatonin 3 mg tablet 3 mg PO QHS PRN PRN Insomnia #0 tabs 04/01/24 sodium hypochlorite 0.25 % solution (HySept) See Protocol topical BID #0 mL 04/01/24 tobramycin sulfate 40 mg/mL injection solution 100 mg (2.5 mL) IV Q24H 35 days #87.5 mL 04/01/24 Hospital Course Operations None Procedures Dialysis Summary of Care Provided Minutes Spent on Discharge: 35 Weight / BMI Weight Weight: 126.1 kg Body Mass Index (BMI) 37.6 ABG / Lab / Microbiology Data 04/01/24 06:00 04/01/24 06:00 Laboratory: Laboratory Results - last 24 hr 03/31/24 16:12: POC Glucose 74 03/31/24 22:49: POC Glucose 91 04/01/24 06:00: WBC 9.4, RBC 3.38 L, Hgb 9.0 L, Hct 30.7 L, MCV 90.8, MCH 26.6 L , MCHC 29.3 L, RDW Std Deviation 55.8 H, RDW Coeff of Shanta 16.8 H, Plt Count 226, MPV 10.6, Immature Gran % (Auto) 0.300, Neut % (Auto) 60.0, Lymph % (Auto) 23.1, [place] % (Auto) 9.3, Eos % (Auto) 6.1 H, Baso % (Auto) 1.2 H, Absolute Neuts (auto) 5.7, Absolute Lymphs (auto) 2.18, Nucleated RBC % 0, Sodium 135 L, P otassium 5.7 H, Chloride 101, Carbon Dioxide 24.0, Anion Gap 10, BUN 65 H, C reatinine 11.50 H*, Estim Creat Clear Calc 12.32, Est GFR (MDRD) Af Amer 7 L, E st GFR (MDRD) Non-Af 5 L, BUN/Creatinine Ratio 5.7 L, Glucose 90, Calcium 9.3, Random Tobramycin 4.80 04/01/24 09:55: POC Glucose 94 04/01/24 12:48: POC Glucose 99 D/C Instructions Discharge Diet: Renal Diet Meaningful Use Info Meaningful Use Meaningful Use Diagnoses (Choose all that apply): None applicable Ischemic Stroke Statin Dosing Therapy Reference: STATIN DOSE THERAPY REFERENCE: * Patients > 75 years receive moderate or high dose statin therapy. * Patients 75 years or YOUNGER should receive HIGH intensity statin dose unless contraindicated. You will be required to document reason for non-treatment if statin daily dose does not meet guidelines. HIGH DOSE STATIN THERAPY DAILY Atorvastatin > than or = to 40 mg Rosuvastatin > than or = to 20 mg Amlodipine + Atorvastatin > than or = to 2.5/40 mg Ezetimibe + Simvastatin 10/80 mg Simvastatin 80mg Discharge Plan Admission Admit Date/Time: 03/29/24 00:15 Primary Reason for Your Visit: encephalopathy. hypertensive urgency. Attending Provider: Ben Schwartz Primary Care Provider: Vanessa Hutchins Consulting Providers: Ansley Peña; Olga Moore; Jabari Medeiros; Jabari Del Angel; Danitza Roca Discharge Orders/Prescriptions Prescriptions: New amoxicillin-pot clavulanate 500-125 mg Tablet 1 tab PO QPM 35 Days Qty: 35 0RF Rx Instructions: give after dialysis when dosing on dialysis days tobramycin sulfate 40 mg/mL solution 100 mg IV Q24H 35 Days Qty: 87.5 0RF Rx Instructions: IV tobramycin, 150mg given with dialysis on Mon, Tu, Th, and Fri. Stop date 05/06/24. Twice weekly bmp, cbc, tobramycin trough prior to HD, and esr. Fax to [phone]. hydralazine 50 mg Tablet 100 mg PO TID Qty: 0 0RF Kalyan (with collagen) 7-7-1.5 gram Powder In Packet 1 packet PO BIDCM Qty: 0 0RF melatonin 3 mg Tablet 3 mg PO QHS PRN PRN (Reason: Insomnia) Qty: 0 0RF HySept 0.25 % Solution See Protocol topical BID Qty: 0 0RF Protocol: *Topical Application Instructions APPLICATION INSTRUCTIONS: ischial wound dressing change BID, cleanse area with saline, pack tightly with FULL strength dakins soaked kerlix Continued atorvastatin 40 mg Tablet 40 mg PO QHS acetaminophen 325 mg Tablet 650 mg PO Q4H PRN (Reason: PAIN/FEVER) carvedilol 12.5 mg Tablet 12.5 mg PO Q12H Rx Instructions: must administer with a meal/food ascorbic acid (vitamin C) 500 mg Tablet 500 mg PO QHS bisacodyl 10 mg Suppository 10 mg NM DAILY PRN (Reason: Constipation) dextrose [Glucose Gel] 40 % Gel 15 g PO Q15M PRN (Reason: Hypoglycemia) Rx Instructions: until symptoms of low blood sugar are controlled Eliquis 5 mg Tablet 5 mg PO BID pantoprazole 40 mg Tablet,Delayed Release (Dr/Ec) 40 mg PO DAILY Rx Instructions: in am clotrimazole-betamethasone 1-0.05 % Cream 1 applic TOPICAL QHS Rx Instructions: apply to face tacrolimus [Prograf] 1 mg Capsule 2 mg PO Q12H polyethylene glycol 3350 17 gram Powder In Packet 17 g PO DAILY PRN (Reason: constipation) ondansetron HCl 4 mg Tablet 4 mg PO Q8H PRN PRN (Reason: Nausea) Senna Plus 8.6-50 mg Capsule 1 tab-cap PO BID gabapentin 100 mg capsule 200 mg PO BID sevelamer HCl 800 mg tablet 2,400 mg PO TIDCM Rx Instructions: must administer with a meal/food levothyroxine 150 mcg tablet 150 mcg PO DAILY@0600 Patient Comments: [place] PT TAKES IN THE AM acetaminophen 650 mg suppository 650 mg NM Q4H PRN (Reason: fever or pain) magnesium hydroxide [Milk of Magnesia] 400 mg/5 mL suspension 30 ml PO DAILY PRN (Reason: constipation) glucagon 1 mg kit 1 mg subcut X1 PRN (Reason: hypoglycemia) Benadryl Extra Strength 2-0.1 % cream 1 applic topical Q6H PRN PRN (Reason: itching) ciclopirox 8 % solution 1 applic topical QHS Rx Instructions: right thumb escitalopram oxalate [Lexapro] 10 mg tablet 15 mg PO QHS B complex-vitamin C-folic acid 0.8 mg tablet 1 tab PO DAILY insulin lispro 100 unit/mL insulin pen See Protocol subcut TIDCM Protocol: 6. Sliding Scale Insulin Custom Condition: 180-200 mg/dl range Dose/Route: 2 Number of Units Condition: 201-250 Dose/Route: 3 Condition: 251-300 Dose/Route: 4 Condition: 301-350 Dose/Route: 5 Condition: 351-400 Dose/Route: 6 Condition: 401-450 Dose/Route: 7 Condition: >451 Dose/Route: call Protocol Text: Custom Sliding Scale guaifenesin [Adult Tussin Chest Congestion] 100 mg/5 mL liquid 200 mg PO Q4H PRN (Reason: cough) Discontinued insulin lispro [Humalog KwikPen Insulin] 100 unit/mL Insulin Pen 6 unit SUBCUT QHS trazodone 50 mg Tablet 50 mg PO QHS hydralazine 25 mg Tablet 50 mg PO Q8 midodrine 10 mg Tablet 10 mg PO MOTUTHFR Rx Instructions: TAKE 1 TAB BY MOUTH EVERY SATURDAY, SATURDAY, SATURDAY, AND SATURDAY for hypotension prior to dialysis Hold BP >130/90 insulin glargine [Lantus Solostar U-100 Insulin] 100 unit/mL (3 mL) Insulin Pen 11 unit SUBCUT 1700 promethazine 12.5 mg Tablet 12.5 mg PO Q8H PRN (Reason: Nausea) oxycodone 10 mg tablet 10 mg PO Q4H PRN (Reason: pain) 2 Days Qty: 12 0RF insulin lispro [Humalog KwikPen Insulin] 100 unit/mL insulin pen 9 unit subcut DAILY Rx Instructions: in am insulin lispro 100 unit/mL solution 6 unit subcut DAILY@1700 amoxicillin-pot clavulanate [Augmentin] 500-125 mg tablet 1 tab PO DAILY Qty: 40 0RF Rx Instructions: Give after dialysis on HD days. tobramycin sulfate 40 mg/mL solution 150 mg IV Q24H 39 Days Patient Comments: HAS NOT STARTED OF 03/28 Rx Instructions: IV tobramycin, 150mg given with dialysis on Sat, , , and Sat. Stop date 05/06/24. Twice weekly bmp, cbc, tobramycin trough prior to HD, and esr. Fax to [phone]. aluminum-magnesium hydroxide 225-200 mg/5 mL suspension 30 ml PO Q4H PRN insulin glargine [Lantus U-100 Insulin] 100 unit/mL solution 11 unit subcut QHS hydralazine 50 mg tablet 50 mg PO TID Referrals / Follow Up: Vanessa Hutchins MD [Primary Care Provider] - Within 2 Weeks Jabari Medeiros MD [Med Staff - Active Staff] - Within 2 Weeks Disposition Disposition (needs filled in before D/C Order can be placed): Group Home Facility Charges/Coding Visit Charges Inpatient E&M: 64952 Disch Hosp >30min
--- NOTE | 2024-04-01 13:28 | PCM.PN.ID ---
Physical Exam Narrative Feeling well, some pain in pelvis. No fever. Const alert and no apparent distress Resp normal air movement and clear to auscultation bilaterally Cardio regular rate and regular rhythm GI soft to palpation, non-tender and non-distended Skin Skin Narrative: no new rash ID ID: Route of nutrition/ use of supplements: [] Nutritional Intake: [] IV Site: [] Hurst Catheter: [] Assessment & Plan Assessment/Plan (1) Acute encephalopathy: (2) Osteomyelitis of pelvic region: PLAN: Wound cx with AcB, PsA, esbl ecoli. Discharged on iv tobra 1.5mg/kg per dose (150mg based on 100kg IBW) given with HD sessions [id number] at [facility], [facility] and po augmentin along with it for planned 6 week course, stop date 05/06/24. Left to [facility] on 03/27 after 1st dose of tobra, came back 03/28 due to altered mental status. Admitted, restarted on prior tobra and augmentin; mental status doing well today. Will write for tobra and augmentin as previously planned. Will follow
--- NOTE | 2024-04-01 13:47 | CASEMGMT ---
Social Work Physician reports that pt is ready for discharge today.?Pt plans to return to [facility]. DCA advised. Disposition: [facility], intermediate level of care. DAMARI Rasheed
--- NOTE | 2024-04-01 15:42 | PN.RENAL_ITS ---
Subjective Subjective no new events. seen on HD today Objective Data Objective Data Vital Signs: Vital Signs Temp Pulse Resp BP Pulse Ox O2 Del Method O2 Flow Rate 97.8 F 87 15 169/93 H 100 Nasal Cannula 2 04/01/24 11:46 04/01/24 14:44 04/01/24 11:46 04/01/24 14:44 04/01/24 11:46 04/01/24 11:46 04/01/24 11:46 Oxygen Flow Rate (L/min) 2 Oxygen Delivery Method Nasal Cannula Weight: 126.1 kg Body Mass Index (BMI) 37.6 Intake & Output: Intake and Output for Last 24 Hours 03/30/24 03/31/24 04/01/24 23:59 23:59 23:59 Intake Total 154.75 / 154.75 50 / 50 Output Total 3210 / 3210 3210 / 3210 2800 / 2800 Balance -3055.25 / -3055.25 -3160 / -3160 -2800 / -2800 Lab / Micro Data 04/01/24 06:00 04/01/24 06:00 Labs: Laboratory Results - last 24 hr 03/31/24 16:12: POC Glucose 74 03/31/24 22:49: POC Glucose 91 04/01/24 06:00: WBC 9.4, RBC 3.38 L, Hgb 9.0 L, Hct 30.7 L, MCV 90.8, MCH 26.6 L , MCHC 29.3 L, RDW Std Deviation 55.8 H, RDW Coeff of Shanta 16.8 H, Plt Count 226, MPV 10.6, Immature Gran % (Auto) 0.300, Neut % (Auto) 60.0, Lymph % (Auto) 23.1, [place] % (Auto) 9.3, Eos % (Auto) 6.1 H, Baso % (Auto) 1.2 H, Absolute Neuts (auto) 5.7, Absolute Lymphs (auto) 2.18, Nucleated RBC % 0, Sodium 135 L, P otassium 5.7 H, Chloride 101, Carbon Dioxide 24.0, Anion Gap 10, BUN 65 H, C reatinine 11.50 H*, Estim Creat Clear Calc 12.32, Est GFR (MDRD) Af Amer 7 L, E st GFR (MDRD) Non-Af 5 L, BUN/Creatinine Ratio 5.7 L, Glucose 90, Calcium 9.3, Random Tobramycin 4.80 04/01/24 09:55: POC Glucose 94 04/01/24 12:48: POC Glucose 99 Physical Exam Narrative No apparent distress S1, S2, RRR Lung sounds diminished Abdomen soft No edema right leg Left arm AV fistula accessed for hemodialysis Assessment & Plan Assessment/Plan (1) End-stage renal disease on hemodialysis: (2) Acute encephalopathy: PLAN: Plan This is a 38-year-old male with past medical history significant for ESRD admitted for acute encephalopathy likely multifactorial who undergoes hemodialysis at [facility] Saturday, Saturday, , Saturday schedule. Nephrology consulted as patient has history of ESRD and requires hemodialysis. While patient is in hospital we will maintain a hemodialysis schedule of Saturday, unless acute need arises. Patient has history of anemia of chronic disease, hemoglobin is 8.9. He receives long-acting REILLY with dialysis at the [facility]. Will monitor hemoglobin trends. seen on HD today. no new complaints
--- NOTE | 2024-04-01 15:53 | CASEMGMT ---
Discharge Planning Discharge orders, signed med list, and transport time sent to [facility] via [facility]. Physicians will transport patient by cot at 5:30p. Nursing, SW, patient, and his sister (Rudy) updated. Selina Sylvester DC Planning Asst.
[2024-04-01 17:28] LABS: Bedside Glucose 139 mg/dL (74-106)
== END 2024-04-01 17:40 | disposition skilled nursing facility (03) | DRG 77 ==
LOC: ED 03-29 00:03 → MS3 03-29 00:20
PROVIDERS: Internal Medicine Infectious Disease; Student in an Organized Health Care Education/Training Program; Admitting Provider Family Medicine; Emergency Provider Emergency Medicine; PCP Internal Medicine
DX: I67.4 Hypertensive encephalopathy (principal); N18.6 End stage renal disease; L89.144 Pressure ulcer of left lower back, stage 4; L89.324 Pressure ulcer of left buttock, stage 4; G93.41 Metabolic encephalopathy; G92.8 Other toxic encephalopathy; I13.2 Hypertensive heart and chronic kidney disease with heart failure and with stage 5 chronic kidney disease, or end stage renal disease; G82.22 Paraplegia, incomplete; M46.28 Osteomyelitis of vertebra, sacral and sacrococcygeal region; I50.32 Chronic diastolic (congestive) heart failure; I16.1 Hypertensive emergency; T83.510A Infection and inflammatory reaction due to cystostomy catheter, initial encounter; Z94.0 Kidney transplant status; M86.8X8 Other osteomyelitis, other site; M86.68 Other chronic osteomyelitis, other site; D63.1 Anemia in chronic kidney disease; L97.529 Non-pressure chronic ulcer of other part of left foot with unspecified severity; E11.22 Type 2 diabetes mellitus with diabetic chronic kidney disease; E66.01 Morbid (severe) obesity due to excess calories; E03.9 Hypothyroidism, unspecified; F32.A Depression, unspecified; Z89.612 Acquired absence of left leg above knee; Z93.3 Colostomy status; E11.42 Type 2 diabetes mellitus with diabetic polyneuropathy; E11.622 Type 2 diabetes mellitus with other skin ulcer; L89.159 Pressure ulcer of sacral region, unspecified stage; I16.0 Hypertensive urgency; Z79.4 Long term (current) use of insulin; E87.5 Hyperkalemia; K21.9 Gastro-esophageal reflux disease without esophagitis; E78.5 Hyperlipidemia, unspecified; E11.621 Type 2 diabetes mellitus with foot ulcer; Z99.2 Dependence on renal dialysis; E11.69 Type 2 diabetes mellitus with other specified complication; F41.9 Anxiety disorder, unspecified; T40.2X5A Adverse effect of other opioids, initial encounter; Z68.38 Body mass index [BMI] 38.0-38.9, adult; Y73.8 Miscellaneous gastroenterology and urology devices associated with adverse incidents, not elsewhere classified; R04.0 Epistaxis; B96.5 Pseudomonas (aeruginosa) (mallei) (pseudomallei) as the cause of diseases classified elsewhere; Z79.01 Long term (current) use of 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; Z79.84 Long term (current) use of oral hypoglycemic drugs; Z79.890 Hormone replacement therapy; Z79.891 Long term (current) use of opiate analgesic; Z86.718 Personal history of other venous thrombosis and embolism; Z86.711 Personal history of pulmonary embolism
CPT/HCPCS: 36415; 70450; 71045; 74177; 80048; 80053; 80200; 81001; 82962; 83605; 83735; 84100; 85025; 85610; 85652; 85730; 86140; 90937; 93005; 97802; 99285; J2185; J7030; J7040; J7050; Q9967; A4216; G0257; J0744; J2405

== ENCOUNTER → 2024-04-03 | Outpatient (REF) | payer MEDICARE, MEDICAID, SELFPAY ==
[2024-04-03 09:31] LABS: Hematocrit 29.7 % (40-54); Hemoglobin 8.8 g/dL (13.0-16.5); Mean Corp Hgb Conc 29.6 g/dL (32-36); Mean Corpuscular Volume 91.1 fL (80-94); Mean Platelet Vol. 11.4 fl (6.2-12.0); Platelet Count 201 K/mm3 (150-450); RBC Distribution Width CV 16.5 % (11.6-14.6); Red Blood Count 3.26 M/mm3 (4.6-6.2); White Blood Count 7.4 K/mm3 (4.4-11.0)
[2024-04-03 10:05] LABS: Tobramycin Conventional Trough 1.7 ug/mL (<2.00)
== END ==
LOC: OLS.SW 05:00
PROVIDERS: PCP Internal Medicine; Visit Provider Internal Medicine
DX: I11.0 Hypertensive heart disease with heart failure (principal); I50.9 Heart failure, unspecified; E11.9 Type 2 diabetes mellitus without complications; Z79.01 Long term (current) use of 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
CPT/HCPCS: 36415; 80200; 85027

== ENCOUNTER 2024-04-13 07:42 | Inpatient (IN) | payer MEDICARE, MEDICAID, SELFPAY ==
[2024-04-13] VITALS (37 sets, daily range): BP systolic 109–331; BP diastolic 75–161; PULSE 77–103; RESP 8–185; TEMP 36.2–36.7; O2SAT 94–100; BMI 40.6; BMI 40.2; BMI 39.4
--- NOTE | 2024-04-13 07:55 | CT_ITS ---
STUDY: CT BRAIN WITHOUT CONTRAST REASON FOR EXAM: Male, 38 years old. Altered RADIATION DOSAGE (If Supplied By Facility): CTDIvol = ( 44.99 ) mGy, DLP = ( 829.85 ) mGycm TECHNIQUE: Transaxial CT imaging of the brain was performed without administration of intravenous contrast material. Individualized dose optimization techniques were used for this CT. COMPARISON: Comparison is made with prior study March 28, 2024. FINDINGS: Normal soft tissue structures. Normal calvarium. Normal size ventricles and extra-axial spaces for the patient''s age. Normal white matter tracts of the cerebral hemispheres. Normal basal ganglia and thalami. Normal brainstem. Normal cerebellum. There is no intracranial hemorrhage. There are no findings of an acute ischemic infarction. Atherosclerotic calcification of the cavernous portions of the internal carotid arteries as well as the vertebral arteries. Mucosal thickening of both maxillary sinuses more prominent on the right side. Mucosal thickening of the sphenoid sinus. There is opacification of the right ethmoid sinus. CT/Brain/Head without Contrast IMPRESSION: Normal unenhanced CT scan of the brain. Sinusitis. Electronically Signed: Rickie Jay MD at 10:43 EDT ,
--- NOTE | 2024-04-13 07:56 | EKG12_ITS ---
Test Reason : UNRESPONSIVE Blood Pressure : / mmHG Vent. Rate : 094 BPM Atrial Rate : 094 BPM P-R Int : 176 ms QRS Dur : 082 ms QT Int : 356 ms P-R-T Axes : 042 035 061 degrees QTc Int : 445 ms Normal sinus rhythm Possible Left atrial enlargement Borderline ECG Confirmed by Benedicto Kendrick ([id number]), subeditor JENS DANIELSON ([id number]) on 04/15/2024 6:30:50 AM Referred By: Confirmed By:Benedicto Kendrick
--- NOTE | 2024-04-13 07:58 | CT_ITS ---
STUDY: CT ABDOMEN AND PELVIS WITH CONTRAST REASON FOR EXAM: Male, 38 years old. Ostomy, altered mental status. RADIATION DOSAGE (If Supplied By Facility): CTDIvol = ( 33.80 ) mGy, DLP = ( 2037.37 ) mGycm TECHNIQUE: Transaxial images were obtained from the dome of the diaphragm to the symphysis pubis without oral contrast. IV 100mL Isovue-300 was administered. Sagittal and coronal images were reconstructed. Individualized dose optimization techniques were used for this CT. COMPARISON: Comparison is made with prior study March 28, 2024. FINDINGS: Mild degree of increased markings at the lung bases suggestive of atelectasis. Cardiomegaly. Coronary artery calcification. Normal liver. There is a solitary gallstone. This measures 3.6 cm. Small amount of pericholecystic fluid. Normal spleen. Normal pancreas. Normal bilateral adrenal glands. Normal right kidney. Normal left kidney. Normal visualized stomach. Normal small intestine. Colostomy is seen in the anterior left mid abdomen. There are surgical clips in the region of the appendix consistent with a prior appendectomy. There is diffuse atherosclerotic calcification of the abdominal aorta and its major visceral branches. There is calcification of the renal arterial branches as well as the branches of the superior mesenteric artery and celiac artery., without a demonstrated aneurysm. Normal inferior vena cava. Normal retroperitoneum. A suprapubic catheter is seen within the urinary bladder. The bladder is empty. Diffuse thickening of the bladder wall. 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 Stable diffuse thickening of the right rectus muscle especially inferiorly. Persistent decubitus ulcer overlying the left ischial tuberosity with the findings suggestive chronic osteomyelitis of the ischium. The ulcerated abnormality as improved. Scattered lucencies are seen within the right iliac bone. CT/Abdomen/Pelvis W IV Cont ONLY IMPRESSION: Solitary gallstone. 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 A colostomy is once again seen in the lower anterior abdominal wall. Persistent ulceration overlying the left ischial tuberosity with the findings suggestive chronic osteomyelitis. Scattered lucencies are seen within the right iliac bone. Electronically Signed: Rickie Jay MD at 10:41 EDT ,
--- NOTE | 2024-04-13 08:04 | EX.ED.CRITCA ---
HPI History of Present Illness Chief Complaint: Alt LOC Narrative Narrative: Chief complaint and HPI: Encephalopathy. 38-year-old male with history of osteomyelitis, kidney transplant with ESRD on dialysis, DM2, paraplegia, CHF, history of venous thrombosis and embolism on Eliquis with current treatment for pneumonia and UTI on Augmentin and tobramycin presents for evaluation of altered mental status/encephalopathy. Patient resides at a care facility. Full code. History taken by EMS as patient is unable to provide this. History also taken by prison records. Patient was minimally responsive this morning, with sternal rub he was able to take medications. Patient was taken to dialysis where he was found to have a low blood pressure in the 90s and sent to the emergency department. On EMS arrival, patient hypertensive in the 200s. On presentation here, patient is hypertensive. Not febrile or tachycardic. GCS 12. Unable to obtain history. Does not seem to be in pain. No reported falls. Review of systems: See HPI Medications: As listed on the chart Allergies: As listed on the chart PFSH: Per chart Vital signs: As listed on the chart. Reviewed. Physical exam: Gen: Alert, unable to assess orientation as he does not answer question does periodically grunt Head: Normocephalic, atraumatic Eyes: No sclera icterus, conjunctiva clear, PERRL, EOMI ENT: TMs clear BL, dry mucous membranes Neck: Trachea midline, No JVD CV: RRR, no murmurs Resp: Diminished bilaterally, no w/r/c GI: Abd soft, non-distended, non-tender, no r/r/g, + ostomy : Suprapubic catheter with blood in the [place] tunneled sacral decubitus wound with packing-packing removed and wound appears clean Musc: Moves bilateral upper extremities-patient is paraplegic, intermittently follows commands such as squeezing of the hand, no deformity, no alma step-offs Skin: Warm, dry Neuro: Alert, GCS 12 (E4, V2, M6) [facility] Medical History ESRD (end stage renal disease) on dialysis Hx of pulmonary embolus Anemia in chronic kidney disease, on 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 H/O deep venous thrombosis Osteomyelitis of pelvic region Lives in prison Anxiety Open wound Insulin dependent diabetes mellitus Uses wheelchair Injury of back Non-healing wound of amputation stump DM type 2, goal HbA1c < 7% 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, stage 4 Neurogenic bowel Chronic kidney disease with end stage renal failure on dialysis Kidney transplant failure Dependence on renal dialysis Pressure ulcer of left heel, unspecified stage Gastro-esophageal reflux disease without esophagitis Other pericardial effusion (noninflammatory) Other pulmonary embolism without acute cor pulmonale Hypertensive heart and chronic kidney disease with heart failure and stage 1 through stage 4 chronic kidney disease, or unspecified chronic kidney disease Depression Hyperlipemia Hypothyroidism Anemia in chronic kidney disease Neuromuscular dysfunction of bladder, unspecified Paraplegia, incomplete Other acute osteomyelitis, left ankle and foot End stage renal disease Home Medications ?Medication ?Instructions ?Recorded ?Last Taken ?Type acetaminophen 325 mg tablet 650 mg PO Q4H PRN PAIN/FEVER 01/02/23 04/21/23 History apixaban 5 mg tablet (Eliquis) 5 mg PO BID AFIB 01/02/23 07/16/23 History ascorbic acid (vitamin C) 500 mg 500 mg PO QHS SUPPLEMENT 01/02/23 12/08/23 History tablet atorvastatin 40 mg tablet 40 mg PO QHS CHOLESTEROL 01/02/23 12/08/23 History bisacodyl 10 mg rectal suppository 10 mg WA DAILY PRN CONSTIPATION 01/02/23 Unknown History carvedilol 12.5 mg tablet 12.5 mg PO BID HYPERTENSION 01/02/23 12/09/23 History clotrimazole-betamethasone 1 1 applic topical QHS FACE RASH 01/02/23 07/15/23 History %-0.05 % topical cream dextrose 40 % oral gel (Glucose 15 g PO Q15M PRN HYPGLYCEMIA 01/02/23 Unknown History Gel) ondansetron HCl 4 mg tablet 4 mg PO Q8H PRN NAUSEA/VOMITING 01/02/23 Unknown History pantoprazole 40 mg tablet,delayed 40 mg PO DAILY ACID REFLUX 01/02/23 12/08/23 History release sennosides 8.6 mg-docusate sodium 1 tab-cap PO BID CONSTIPATION 01/02/23 07/16/23 History 50 mg capsule (Senna Plus) tacrolimus 1 mg capsule, 2 mg PO Q12H IMMUNOSUPPRESIVE 01/02/23 12/09/23 History immediate-release (Prograf) gabapentin 100 mg capsule 200 mg PO BID PHANTOM PAIN 04/21/23 12/09/23 History sevelamer HCl 800 mg tablet 2,400 mg PO TIDCM ESRD 04/21/23 07/16/23 History levothyroxine 150 mcg tablet 150 mcg PO DAILY@0600 THYROID 07/16/23 12/09/23 History acetaminophen 650 mg rectal 650 mg WA Q4H PRN PAIN/FEVER 08/06/23 Unknown History suppository magnesium hydroxide 400 mg/5 mL 30 ml PO DAILY PRN CONSTIPATION 08/06/23 Unknown History oral suspension (Milk of Magnesia) ciclopirox 8 % topical solution 1 applic topical QHS NAIL FUNGUS 11/17/23 Unknown History diphenhydramine-zinc acetate 2 1 applic topical Q6H PRN ITCHING 12/06/23 Unknown History %-0.1 % topical cream (Benadryl Extra Strength) escitalopram oxalate 10 mg tablet 15 mg PO QHS DEPRESSION 12/30/23 Unknown History (Lexapro) insulin lispro 100 unit/mL See Protocol subcut TIDCM 03/22/24 Unknown History subcutaneous pen vitamin B complex-vitamin C-folic 1 tab PO QPM HEALTH MAINTENANCE 03/22/24 Unknown History acid 0.8 mg tablet guaifenesin 100 mg/5 mL oral 200 mg PO Q4H PRN COUGH/CONGESTION 03/29/24 Unknown History liquid (Adult Tussin Chest Congestion) hydralazine 50 mg tablet 100 mg (2 x 50 mg) PO TID BLOOD 04/01/24 Unknown Rx PRESSURE #0 tabs tobramycin sulfate 40 mg/mL 100 mg (2.5 mL) IV Q24H WOUND 04/01/24 Unknown Rx injection solution INFECTION 35 days #87.5 mL aluminum-magnesium hydroxide 200 30 ml PO Q4H PRN GI DISTRESS 04/13/24 Unknown History mg-200 mg/5 mL oral suspension amoxicillin 500 mg-potassium 1 tab PO QPM INFECTION 04/13/24 Unknown History clavulanate 125 mg tablet glucagon HCl 1 mg solution for 1 mg IM Q20M PRN HYPOGLYCEMIA 04/13/24 Unknown History injection (Glucagon (HCl) Emergency Kit) melatonin 3 mg tablet 3 mg PO Q24H PRN INSOMNIA 04/13/24 Unknown History oxycodone 10 mg tablet 10 mg PO Q8H PRN PAIN 04/13/24 Unknown History polyethylene glycol 3350 17 17 g PO Q24H PRN CONSTIPATION 04/13/24 Unknown History gram/dose oral powder (Miralax) Allergy/AdvReac Type Severity Reaction Status Date / Time No Known Allergies Allergy Verified 02/18/24 04:45 Family History Mother Hypertension Diabetes Father Hypertension Diabetes Surgical History History of kidney transplant S/P unilateral above knee amputation S/P foot surgery S/P colostomy Social History housing: prison Smoking Status: Never smoker alcohol intake: never substance use type: does not use EXAM Physical Exam Const Vital Signs: 04/13/24 07:45 04/13/24 07:54 04/13/24 08:15 Temperature 97.2 F L 97.2 F L Temperature Source Axillary Axillary Pulse Rate 96 95 Respiratory Rate 14 16 Respiratory Pattern Blood Pressure 163/119 H 163/119 H Blood Pressure Mean 133 133 Pulse Ox 99 100 94 Oxygen Delivery Method Nasal Cannula Room Air Nasal Cannula Oxygen Flow Rate (L/min) 3 2 04/13/24 08:34 04/13/24 08:54 04/13/24 09:00 Temperature 97.2 F L Temperature Source Axillary Pulse Rate 92 81 77 Respiratory Rate 10 L 11 L 18 Respiratory Pattern Blood Pressure 206/115 H 242/161 H 222/125 H Blood Pressure Mean 145 188 157 Pulse Ox 100 100 Oxygen Delivery Method Nasal Cannula Nasal Cannula Oxygen Flow Rate (L/min) 2 2 04/13/24 09:00 04/13/24 10:00 04/13/24 10:03 Temperature 97.2 F L 97.3 F L Temperature Source Axillary Axillary Pulse Rate 81 82 82 Respiratory Rate 8 L 9 L 12 Respiratory Pattern Normal Blood Pressure 242/161 H 239/133 H Blood Pressure Mean 188 168 Pulse Ox 94 96 Oxygen Delivery Method Nasal Cannula Room Air Oxygen Flow Rate (L/min) 2 MDM MDM MDM Narrative Medical decision making narrative: 38-year-old male with multiple comorbidities presents for evaluation of altered mental status. GCS is 12. Currently protecting airway. Differential diagnosis includes but is not limited to infectious such as pneumonia, UTI, intra-abdominal pathology, hypoxia hypercapnia, electrolyte abnormality, JORDI, CHF exacerbation, intracranial abnormality. Altered mental status workup ordered. Patient brought by squad via 3 L nasal cannula. Unknown if patient wears oxygen at baseline. Oxygen was taken off and patient had desaturations in the 70s. Oxygen placed back on. Will cover broadly with vancomycin and Zosyn given current known infections. Will be judicious with fluids given that patient is on dialysis. 500 cc NS bolus ordered. Blood pressure increased to 206/115. IV labetalol ordered. On chart review, patient was recently admitted for similar symptoms on 03/28. CBC without leukocytosis. Patient is at his baseline anemia. ABG without hypercapnia and normal pH. CMP with hyponatremia at 132, hyperkalemia of 6. Patient was post receive dialysis today. He has no EKG changes however will give calcium gluconate, albuterol, insulin. Patient has hyper glycemic at 188. Lasix held given that creatinine is 9.77. This appears to be about his baseline. Patient did not receive dialysis today. Lactic acid unremarkable. No transaminitis. Ammonia level unremarkable. Troponin unremarkable. Lipase unremarkable. UA negative for UTI but positive for ketones and blood. Patient has a suprapubic catheter in. CT head with no acute abnormality. There is mucosal thickening of the sinuses to suggest sinusitis. CT abdomen pelvis without any acute abnormality. Patient's transplanted kidney is seen as well as colostomy. He has consistent findings of chronic osteomyelitis. No clear etiology for patient's symptoms at this time however I suspect that it is secondary to his hyperkalemia and ESRD in need of dialysis. Patient was attempted multiple times for IV access. We would obtain these via ultrasound but then lose access. Patient has no IV access at this time, he will require central line placement for increased IV access. Unable to obtain consent from patient. Consent was obtained by family member. Due to patient's body habitus as well as need for possible future fistulous, right CVC line placed. Patient tolerated this well. Patient will require admission for dialysis. Patient was discussed with Dr. Lakhani who accepted admission. She will contact nephrology for dialysis. Patient accepted. EKG: Interpreted by me/EM physician: EKG shows normal sinus rhythm without any acute ischemic changes, heart rate 94 Diagnostic: Interpreted by me/EM physician: Chest x-ray without pneumonia, pneumothorax. Has pulmonary edema which is consistent with his missed dialysis. Central Venous Catheter Placement Indication: Increased IV access Location: Right femoral Consent: Obtained by family Procedure: Patient was placed in Trendelenburg. A timeout was performed verifying correct patient, procedure, site, and positioning. The patient's right groin was prepped with chlorhexidine scrub and draped in a sterile fashion. The femoral vein was identified using a sterilely prepped ultrasound. 1 ml of 1% lidocaine was used to anesthetize the insertion site. Using real-time ultrasound guidance, the femoral vein was accessed, and a triple-lumen catheter was placed using the Seldinger technique. The catheter threaded smoothly over the guide wire and advanced easily into the vein. A brisk blood return was obtained from each lumen and each lumen was then easily flushed with sterile saline. The catheter was sutured in place at the suture wing and a sterile, antibiotic dressing was placed. The patient tolerated the procedure well without complications. Estimated Blood Loss: Minimal 35 minutes of critical care time utilized in managing the patient. This is due to high probability of and deterioration of the patient based on the patient's condition and excludes any separately billable procedures. Impression: 1. Encephalopathy, metabolic 2. ESRD on HD, missed dialysis today 3. Hyperkalemia 4. Chronic anemia 5. Hyponatremia 6. Respiratory hypoxia requiring nasal cannula 7. Need for IV access, CVC placed Lab Data Labs: Laboratory Results - last 24 hr 04/13/24 04/13/24 08:11 09:47 WBC 8.7 RBC 3.77 L Hgb 10.6 L Hct 34.3 L MCV 91.0 MCH 28.1 MCHC 30.9 L RDW Std Deviation 57.7 H RDW Coeff of Shanta 18.1 H Plt Count 114 L MPV 11.7 Immature Gran % (Auto) 0.500 Neut % (Auto) 72.6 H Lymph % (Auto) 17.0 L [place] % (Auto) 5.4 Eos % (Auto) 3.5 Baso % (Auto) 1.0 Absolute Neuts (auto) 6.3 Absolute Lymphs (auto) 1.48 Nucleated RBC % 0 PT 17.0 H INR 1.4 APTT 36.5 H Sodium 132 L Potassium 6.0 H* Chloride 95 L Carbon Dioxide 29.0 Anion Gap 8 BUN 68 H Creatinine 9.77 H* Estim Creat Clear Calc 14.93 Est GFR (MDRD) Af Amer 8 L Est GFR (MDRD) Non-Af 7 L BUN/Creatinine Ratio 7.0 L Glucose 188 H Lactic Acid 1.2 Calcium 9.6 Total Bilirubin 0.60 AST 21 ALT 23 Alkaline Phosphatase 101 Ammonia 18.0 Troponin I High Sens 19 Total Protein 9.4 H Albumin 3.1 L Globulin 6.3 H Albumin/Globulin Ratio 0.5 L Lipase 44 Urine Color Red Urine Clarity Turbid Urine pH 8.0 Ur Specific Loda 1.020 Urine Protein 500 H Urine Glucose (UA) Normal Urine Ketones 15 H Urine Occult Blood 150 H Urine Nitrite Negative Urine Bilirubin Negative Urine Urobilinogen Normal Ur Leukocyte Esterase Negative Urine RBC > 100 SEEN Urine WBC 10-25 SEEN Ur Squamous Epith Cells 0 SEEN Urine Bacteria 0 SEEN Urine Mucus 0 SEEN ABG Data ABG results: ABG 04/13/24 08:29 Specimen Type ART Sample Site R Radial pH 7.40 Bicarbonate Actual 27.0 H Total CO2 28 Base Excess 2 O2 Saturation 95 O2 % 2.0 ABG pCO2 43.7 ABG pO2 76 Nick Test Positive O2 Delivery Device Cannula Vent Mode Not entered Radiography Diagnostic Testing: Clinical Impression(s) from Imaging Studies Brain CT 04/13/24 07:55 IMPRESSION: Normal unenhanced CT scan of the brain. Sinusitis. Electronically Signed: Rickie Jay MD at 10:43 EDT , Abdomen/Pelvis CT 04/13/24 07:58 IMPRESSION: Solitary gallstone. 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 A colostomy is once again seen in the lower anterior abdominal wall. Persistent ulceration overlying the left ischial tuberosity with the findings suggestive chronic osteomyelitis. Scattered lucencies are seen within the right iliac bone. Electronically Signed: Rickie Jay MD at 10:41 EDT , Chest X-Ray 04/13/24 09:30 IMPRESSION: Moderate degree of cardiomegaly. CHF. Electronically Signed: Rickie Jay MD at 10:30 EDT , Discharge Plan Triage Chief Complaint: Alt LOC ED Provider: Yg Han Dx/Rx/DC Orders Prescriptions: No Action atorvastatin 40 mg Tablet 40 mg PO QHS acetaminophen 325 mg Tablet 650 mg PO Q4H PRN (Reason: PAIN/FEVER) carvedilol 12.5 mg Tablet 12.5 mg PO BID ascorbic acid (vitamin C) 500 mg Tablet 500 mg PO QHS bisacodyl 10 mg Suppository 10 mg WA DAILY PRN (Reason: CONSTIPATION ) dextrose [Glucose Gel] 40 % Gel 15 g PO Q15M PRN (Reason: Hypoglycemia) Rx Instructions: until symptoms of low blood sugar are controlled Eliquis 5 mg Tablet 5 mg PO BID pantoprazole 40 mg Tablet,Delayed Release (Dr/Ec) 40 mg PO DAILY Rx Instructions: in am clotrimazole-betamethasone 1-0.05 % Cream 1 applic TOPICAL QHS Rx Instructions: APPLY ONE APPLICATION TOPICALLY TO FACE AT BEDTIME FOR RASH tacrolimus [Prograf] 1 mg Capsule 2 mg PO Q12H polyethylene glycol 3350 17 gram Powder In Packet 17 g PO DAILY PRN (Reason: constipation) ondansetron HCl 4 mg Tablet 4 mg PO Q8H PRN PRN (Reason: Nausea) Senna Plus 8.6-50 mg Capsule 1 tab-cap PO BID gabapentin 100 mg capsule 200 mg PO BID sevelamer HCl 800 mg tablet 2,400 mg PO TIDCM Rx Instructions: must administer with a meal/food levothyroxine 150 mcg tablet 150 mcg PO DAILY@0600 Patient Comments: [place] PT TAKES IN THE AM acetaminophen 650 mg suppository 650 mg WA Q4H PRN (Reason: PAIN/FEVER) magnesium hydroxide [Milk of Magnesia] 400 mg/5 mL suspension 30 ml PO DAILY PRN (Reason: constipation) glucagon 1 mg kit 1 mg subcut X1 PRN (Reason: hypoglycemia) Benadryl Extra Strength 2-0.1 % cream 1 applic topical Q6H PRN (Reason: ITCHING ) ciclopirox 8 % solution 1 applic topical QHS Rx Instructions: APPLY ONE APPLICATION TOPICALLY TO RIGHT THUMB AT BEDTIME FOR NAIL FUNGUS escitalopram oxalate [Lexapro] 10 mg tablet 15 mg PO QHS B complex-vitamin C-folic acid 0.8 mg tablet 1 tab PO QPM insulin lispro 100 unit/mL insulin pen See Protocol subcut TIDCM Protocol: 6. Sliding Scale Insulin Custom Condition: 180-200 mg/dl range Dose/Route: 2 Number of Units Condition: 201-250 Dose/Route: 3 Condition: 251-300 Dose/Route: 4 Condition: 301-350 Dose/Route: 5 Condition: 351-400 Dose/Route: 6 Condition: 401-450 Dose/Route: 7 Condition: >451 Dose/Route: call MD Protocol Text: Custom Sliding Scale guaifenesin [Adult Tussin Chest Congestion] 100 mg/5 mL liquid 200 mg PO Q4H PRN (Reason: cough) tobramycin sulfate 40 mg/mL solution 100 mg IV Q24H 35 Days Qty: 87.5 0RF Rx Instructions: IV tobramycin, 150mg given with dialysis on Mon, , Th, and Sat. Stop date 05/06/24. Twice weekly bmp, cbc, tobramycin trough prior to HD, and esr. Fax to [phone]. hydralazine 50 mg Tablet 100 mg PO TID Qty: 0 0RF Kalyan (with collagen) 7-7-1.5 gram Powder In Packet 1 packet PO BIDCM Qty: 0 0RF melatonin 3 mg Tablet 3 mg PO QHS PRN PRN (Reason: Insomnia) Qty: 0 0RF HySept 0.25 % Solution See Protocol topical BID Qty: 0 0RF Protocol: *Topical Application Instructions APPLICATION INSTRUCTIONS: ischial wound dressing change BID, cleanse area with saline, pack tightly with FULL strength dakins soaked kerlix aluminum-magnesium hydroxide 200-200 mg/5 mL suspension 30 ml PO Q4H PRN (Reason: GI DISTRESS ) glucagon HCl [Glucagon (HCl) Emergency Kit] 1 mg recon soln 1 mg IM Q20M PRN (Reason: HYPOGLYCEMIA ) oxycodone 10 mg tablet 10 mg PO Q8H PRN (Reason: PAIN ) polyethylene glycol 3350 [Miralax] 17 gram/dose powder 17 g PO Q24H PRN (Reason: CONSTIPATION ) amoxicillin-pot clavulanate 500-125 mg Tablet 1 tab PO QPM Rx Instructions: give after dialysis when dosing on dialysis days GIVE ONE TABLET BY MOUTH IN THE EVENING FOR INFECTION FOR 35 DAYS. START DATE: 04/02/2024 END DATE: 05/07/2024 Primary Care Provider: Vanessa Hutchins Referrals: Vanessa Hutchins MD [Primary Care Provider] - Print Language: [place] Leonean
[2024-04-13 08:23] LABS: Absolute Lymphocyte Count 1.48 X10^3/uL (0.83-4.51); Absolute Neutrophil Count 6.3 X10^3/uL (2.0-7.7); Basophil# 0.09 X10^3/uL; Eosinophils% 3.5 % (0-5); Hematocrit 34.3 % (40-54); Hemoglobin 10.6 g/dL (13.0-16.5); Lymphocyte # 1.48 X10^3/ul (0.83-4.51); Mean Corp Hgb Conc 30.9 g/dL (32-36); Mean Corpuscular Hgb 28.1 pg (27.0-32.0); Mean Platelet Vol. 11.7 fl (6.2-12.0); Monocyte# 0.47 X10^3/uL; Monocyte% 5.4 % (0-10); NRBC Flagged by Analyzer 0 % (0-5); Neutrophil # 6.31 X10^3/uL (2.7-7.7); Neutrophil % 72.6 % (47-70); Platelet Count 114 K/mm3 (150-450); RBC Distribution Width CV 18.1 % (11.6-14.6); RBC Distribution Width SD 57.7 fl (35.1-43.9); Red Blood Count 3.77 M/mm3 (4.6-6.2); White Blood Count 8.7 K/mm3 (4.4-11.0)
[2024-04-13] MEDS: Piperacil/Tazobactam 4.5 GM in 0.9% Normal Saline (100mL MB+) 100 ML IV (08:26)
[2024-04-13] MEDS: 0.9% Normal Saline (500mL Bag) 500 ML 999 ML IV (08:26)
[2024-04-13 08:29] LABS: International Normalized Ratio 1.4
[2024-04-13 08:30] LABS: Partial Thromboplast Time 36.5 Seconds (24.1-36.2)
[2024-04-13 08:33] LABS: Allen Test Positive; Base Excess 2 mmol/L (-2 to +2); Blood Gas Specimen Type ART; Mode Not entered; O2 Delivery Device Cannula; PO2 76 mmHG (75-100); SITE R Radial; SO2 95 % (95-99); Total Carbon Dioxide 28 mmol/L; pCO2 43.7 mmHg (35-45)
[2024-04-13 08:43] LABS: Lactic Acid 1.2 mmol/L (0.4-1.9)
[2024-04-13] MEDS: Labetalol (Prefilled) 20 MG/4 ML IV (08:44)
[2024-04-13 08:48] LABS: ALB/GLOB Ratio 0.5 RATIO (0.9-2.4); AST(SGOT) 21 U/L (15-37); Alanine Aminotransfer ALT/SGPT 23 U/L (16-61); Albumin, Serum 3.1 g/dL (3.2-5.0); Alkaline Phosphatase 101 U/L (45-117); Anion Gap 8 (5-15); BUN 68 mg/dL (7-18); Calcium,Total 9.6 mg/dL (8.5-10.1); Chloride 95 mmol/L (98-107); Creatinine, Serum 9.77 mg/dL (0.70-1.30); EST Glomerular Filtration Rate 7 mL/min (>60); Est Glom Filt Rate - Afr Amer 8 mL/min (>60); Estimated Creatinine Clearance 14.93 ml/min; Globulin 6.3 g/dL (2.2-4.2); Glucose 188 mg/dL (74-106); Lipase 44 U/L (13-75); Protein, Total 9.4 g/dL (6.4-8.2); Sodium Level 132 mmol/L (136-145); Troponin-I HS (w/2H Reflex) 19 pg/mL (3.0-78.0)
[2024-04-13] MEDS: Vancomycin HCl 2,000 MG in 0.9% Normal Saline (500mL Bag) 500 ML 250 MG IV (09:14)
--- NOTE | 2024-04-13 09:20 | ED.RN ---
Patient transported to CT
--- NOTE | 2024-04-13 09:30 | RAD_ITS ---
STUDY: X-RAY CHEST REASON FOR EXAM: Male, 38 years old. Altered mental status. Dialysis patient. TECHNIQUE: Single AP portable view of the chest. COMPARISON: Comparison is made with prior study dated March 28, 2024. FINDINGS: EKG electrodes are seen. There is elevation of the right hemidiaphragm. CHF. There is moderate cardiac enlargement. Normal mediastinum and ranjith. Normal visualized pulmonary arteries. Normal visualized aortic arch and descending thoracic aorta. Normal visualized thoracic spine. Normal visualized ribs, clavicles, and shoulders. There is no demonstrated abnormality of the visualized soft tissue structures of the upper abdomen. RAD/Chest 1 View (Portable) IMPRESSION: Moderate degree of cardiomegaly. CHF. Electronically Signed: Rickie Jay MD at 10:30 EDT ,
[2024-04-13 09:55] LABS: Bacteria 0 SEEN /hpf (None Seen); Mucous, Urine 0 SEEN /hpf (<or=2+); Squamous Epithelial Cells - UA 0 SEEN /hpf (0-5)
[2024-04-13 09:59] LABS: Color, Urine Red (Yellow); Glucose, Dipstick Normal (Normal); Ketone-Dipstick 15 mg/dl (Negative); Leukocyte Esterase-Dipstick Negative /ul (Negative); Nitrite-Dipstick Negative (Negative); Occult Blood-Urine 150 /ul (Negative); Protein-Dipstick 500 mg/dl (Negative); Urine Bilirubin Dipstick Negative (Negative); Urine Clarity Turbid (Clear); Urine Urobilinogen Normal (Normal)
[2024-04-13] MEDS: Albuterol *CONC* 2.5mg/0.5mL VIAL.NEB. 10 MG INHALATION (10:02)
[2024-04-13 10:08] LABS: Red Blood Cells-Urine > 100 SEEN /hpf (0-5); White Blood Cells 10-25 SEEN /hpf (0-5)
[2024-04-13 10:16] LABS: Reflex Troponin-HS? (from REC) Y
--- NOTE | 2024-04-13 10:18 | ED.RN ---
dr aceves notfied that 2 PIV in right arm infiltrated, pt. has a left EJ.
[2024-04-13] MEDS: Insulin Lispro 100 UNIT/ML VIAL (ADMELOG) IV (10:21)
[2024-04-13] MEDS: Calcium Gluconate 1 GM/10 ML Vial IVP (10:21)
--- NOTE | 2024-04-13 10:36 | ED.RN ---
this RN notified dr. Sheikh that EJ is not functional. 3 RN's have looked with ultrasound and PIV continue to infiltrate.
--- NOTE | 2024-04-13 11:15 | HP.PCM.HOS_ITS ---
HPI - General General Date of Admission: 04/13/24 Date of Service: 04/13/24 Chief Complaint: Altered MS/Hyperkalemia/HD HPI Narrative CHINA GUILLEN, is a 38 M who presented to the emergency department at [facility] on 04/13/2020 for due to altered mental status. The patient has a history of end-stage renal disease and currently resides at [facility] where he receives dialysis. He typically gets dialyzed on MTWF and has not missed any dialysis sessions until today. He went for dialysis at [facility] and was noted to be somewhat somnolent. Blood pressure was assessed and he was reported to be hypotensive however upon arrival and since admission he has been hypertensive. Елена Coma Scale at the time of admission was 12 as assessed by the emergency department. He recently had a lengthy stay here at which she was discharged on 04/01/2025 on tobramycin and Augmentin to complete antibiotic courses for decubitus ulcer and bacteremia. He is not known to be febrile or have any unstable vitals except reported hypotension at [facility] dialysis prior to arrival. Vital signs on presentation the emergency department here showed a temperature of 97.2, heart rate 96, respiratory 14, blood pressure was 163/119 and pulse ox was 99% on 3 L nasal cannula. He was weaned to room air with sats at 100%. Blood pressures have fluctuated from anywhere in the 240s over 160s to 160s over 110. CBC is overtly unremarkable with a normal white count. He has a chronic stable hemoglobin at 10.6 and a new thrombocytopenia with a platelet count of 114,000. Coags are abnormal however he is on Eliquis and this is to be expected. Ammonia level was normal. ABG showed pH of 7.40 with a pCO2 of 43.7 and a pO2 of 76 on room air. A repeat was obtained later due to mental status but was stable when compared to previous. His chemistry panel showed hyponatremia which is chronic and hyperkalemia which appears to be acute with a potassium of 6.0. Bicarb appears to be stable when compared to previous at 29. BUN and serum creatinine are elevated as to be expected with chronic dialysis. Glucose was 188. Lactic acid was 1.2. LFTs are normal. Lipase was normal at 44. Troponin was [address] of the brain showed some sinusitis but was otherwise unremarkable. Sinusitis appears to be chronic. CT of the abdomen pelvis shows suprapubic catheter in the urinary bladder with diffuse thickening of the bladder wall, solitary gallstone, transplanted kidney in the right hemipelvis and persistent ulceration overlying the left ischial tuberosity with findings suggestive of chronic osteomyelitis and scattered lucencies in the right iliac bone. He was treated for his hypokalemia medically with the intent of dialysis after admission, given vancomycin and Zosyn and cultures were obtained. As noted he has been on tobramycin and Augmentin as an outpatient so we will continue those after admission before changing. He will receive dialysis on admission. [facility] Medical History Decubitus ulcer Abscess Left ischial pressure sore Open wound of left buttock with complication Current use of [employer] anticoagulation Acute hyperkalemia Acute alteration in mental status Phantom limb syndrome with pain Paraplegia Metabolic encephalopathy Type 2 diabetes mellitus End-stage renal disease on hemodialysis Anticoagulant long-term use ESRD (end stage renal disease) on dialysis Hx of pulmonary embolus Anemia in chronic kidney disease, on chronic dialysis correction (current) use of 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 H/O deep venous thrombosis Osteomyelitis of pelvic region Lives in custodial Anxiety Open wound Insulin dependent diabetes mellitus Uses wheelchair Injury of back Non-healing wound of amputation stump DM type 2, goal HbA1c < 7% 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, stage 4 Neurogenic bowel Chronic kidney disease with end stage renal failure on dialysis Kidney transplant failure Dependence on renal dialysis Pressure ulcer of left heel, unspecified stage Gastro-esophageal reflux disease without esophagitis Other pericardial effusion (noninflammatory) Other pulmonary embolism without acute cor pulmonale Hypertensive heart and chronic kidney disease with heart failure and stage 1 through stage 4 chronic kidney disease, or unspecified chronic kidney disease Depression Hyperlipemia Hypothyroidism Anemia in chronic kidney disease Neuromuscular dysfunction of bladder, unspecified Paraplegia, incomplete Other acute osteomyelitis, left ankle and foot End stage renal disease Home Medications ?Medication ?Instructions ?Recorded ?Last Taken ?Type acetaminophen 325 mg tablet 650 mg PO Q4H PRN PAIN/FEVER 01/02/23 04/21/23 History apixaban 5 mg tablet (Eliquis) 5 mg PO BID AFIB 01/02/23 07/16/23 History ascorbic acid (vitamin C) 500 mg 500 mg PO QHS SUPPLEMENT 01/02/23 12/08/23 History tablet atorvastatin 40 mg tablet 40 mg PO QHS CHOLESTEROL 01/02/23 12/08/23 History bisacodyl 10 mg rectal suppository 10 mg OK DAILY PRN CONSTIPATION 01/02/23 Unknown History carvedilol 12.5 mg tablet 12.5 mg PO BID HYPERTENSION 01/02/23 12/09/23 History clotrimazole-betamethasone 1 1 applic topical QHS FACE RASH 01/02/23 07/15/23 History %-0.05 % topical cream dextrose 40 % oral gel (Glucose 15 g PO Q15M PRN HYPGLYCEMIA 01/02/23 Unknown History Gel) ondansetron HCl 4 mg tablet 4 mg PO Q8H PRN NAUSEA/VOMITING 01/02/23 Unknown History pantoprazole 40 mg tablet,delayed 40 mg PO DAILY ACID REFLUX 01/02/23 12/08/23 History release sennosides 8.6 mg-docusate sodium 1 tab-cap PO BID CONSTIPATION 01/02/23 07/16/23 History 50 mg capsule (Senna Plus) tacrolimus 1 mg capsule, 2 mg PO Q12H IMMUNOSUPPRESIVE 01/02/23 12/09/23 History immediate-release (Prograf) gabapentin 100 mg capsule 200 mg PO BID PHANTOM PAIN 04/21/23 12/09/23 History sevelamer HCl 800 mg tablet 2,400 mg PO TIDCM ESRD 04/21/23 07/16/23 History levothyroxine 150 mcg tablet 150 mcg PO DAILY@0600 THYROID 07/16/23 12/09/23 History acetaminophen 650 mg rectal 650 mg OK Q4H PRN PAIN/FEVER 08/06/23 Unknown History suppository magnesium hydroxide 400 mg/5 mL 30 ml PO DAILY PRN CONSTIPATION 08/06/23 Unknown History oral suspension (Milk of Magnesia) ciclopirox 8 % topical solution 1 applic topical QHS NAIL FUNGUS 11/17/23 Unknown History diphenhydramine-zinc acetate 2 1 applic topical Q6H PRN ITCHING 12/06/23 Unknown History %-0.1 % topical cream (Benadryl Extra Strength) escitalopram oxalate 10 mg tablet 15 mg PO QHS DEPRESSION 12/30/23 Unknown History (Lexapro) insulin lispro 100 unit/mL See Protocol subcut TIDCM 03/22/24 Unknown History subcutaneous pen vitamin B complex-vitamin C-folic 1 tab PO QPM HEALTH MAINTENANCE 03/22/24 Unknown History acid 0.8 mg tablet guaifenesin 100 mg/5 mL oral 200 mg PO Q4H PRN COUGH/CONGESTION 03/29/24 Unknown History liquid (Adult Tussin Chest Congestion) tobramycin sulfate 40 mg/mL 100 mg (2.5 mL) IV Q24H WOUND 04/01/24 Unknown Rx injection solution INFECTION 35 days #87.5 mL aluminum-magnesium hydroxide 200 30 ml PO Q4H PRN GI DISTRESS 04/13/24 Unknown History mg-200 mg/5 mL oral suspension amoxicillin 500 mg-potassium 1 tab PO QPM INFECTION 04/13/24 Unknown History clavulanate 125 mg tablet glucagon HCl 1 mg solution for 1 mg IM Q20M PRN HYPOGLYCEMIA 04/13/24 Unknown History injection (Glucagon (HCl) Emergency Kit) hydralazine 50 mg tablet 50 mg PO TID BLOOD PRESSURE 04/13/24 Unknown History melatonin 3 mg tablet 3 mg PO Q24H PRN INSOMNIA 04/13/24 Unknown History oxycodone 10 mg tablet 10 mg PO Q8H PRN PAIN 04/13/24 Unknown History polyethylene glycol 3350 17 17 g PO Q24H PRN CONSTIPATION 04/13/24 Unknown History gram/dose oral powder (Miralax) Allergy/AdvReac Type Severity Reaction Status Date / Time No Known Allergies Allergy Verified 02/18/24 04:45 Family History Mother Hypertension Diabetes Father Hypertension Diabetes Surgical History History of kidney transplant S/P unilateral above knee amputation S/P foot surgery S/P colostomy Social History housing: custodial Smoking Status: Never smoker alcohol intake: never substance use type: does not use ROS Review of Systems ROS Unobtainable: due to encephalopathy and due to mental status Vital Signs Vital Signs Vital Signs: 04/13/24 07:45 04/13/24 07:54 04/13/24 08:15 Temperature 97.2 F L 97.2 F L Temperature Source Axillary Axillary Pulse Rate 96 95 Respiratory Rate 14 16 Respiratory Pattern Blood Pressure 163/119 H 163/119 H Blood Pressure Mean 133 133 Pulse Ox 99 100 94 Oxygen Delivery Method Nasal Cannula Room Air Nasal Cannula Oxygen Flow Rate (L/min) 3 2 04/13/24 08:34 04/13/24 08:54 04/13/24 09:00 Temperature 97.2 F L Temperature Source Axillary Pulse Rate 92 81 77 Respiratory Rate 10 L 11 L 18 Respiratory Pattern Blood Pressure 206/115 H 242/161 H 222/125 H Blood Pressure Mean 145 188 157 Pulse Ox 100 100 Oxygen Delivery Method Nasal Cannula Nasal Cannula Oxygen Flow Rate (L/min) 2 2 04/13/24 09:00 04/13/24 10:00 04/13/24 10:03 Temperature 97.2 F L 97.3 F L Temperature Source Axillary Axillary Pulse Rate 81 82 82 Respiratory Rate 8 L 9 L 12 Respiratory Pattern Normal Blood Pressure 242/161 H 239/133 H Blood Pressure Mean 188 168 Pulse Ox 94 96 Oxygen Delivery Method Nasal Cannula Room Air Oxygen Flow Rate (L/min) 2 Weight Weight: 136 kg Body Mass Index (BMI) 40.6 Physical Exam Const no apparent distress and well nourished; Negative for alert, oriented x3, average body habitus or healthy appearing Constitutional Narrative: Middle-aged, -[place] male, obese, lying in bed, responds minimally with movement of his upper extremities to noxious stimuli, intermittent moaning with noxious stimuli but does not appear to be grossly uncomfortable Orientation / Consciousness: lethargic HEENT normocephalic and head/scalp atraumatic HEENT Narrative: Mallampati is 4, no thrush, lips are dry but oropharynx is moist Eyes PERRL and conjunctivae normal Eyes Narrative: Cataracts are noted Neck no lymphadenopathy and supple Neck Narrative: Neck is short and thick, trachea midline Resp no retractions and no use of accessory muscles Resp Narrative: Patient with odd respiratory pattern that seems more consistent with Alex- Orellana respirations Auscultation: Negative for rales, rhonchi or wheezes Cardio regular rate, regular rhythm, S1 normal heart sound, S2 normal heart sound, no murmurs, no rub, no gallops and no clicks GI normal to inspection, nondistended, normoactive bowel sounds, soft to palpation and non-tender GI Narrative: Large protuberant abdomen Extremity no clubbing, cyanosis or edema Extremity Narrative: Right lower extremity with no significant noted abnormalities, patient is a left lower extremity amputee Neuro No oriented x3 Neuro Narrative: Moves upper extremities symmetrically Sensorium / Orientation: Negative for awake, alert, oriented to person, oriented to place or oriented to time Speech: Negative for speech normal Psych Psych Narrative: Unable to assess due to mentation Results Lab / Micro Data 04/13/24 08:11 04/13/24 10:55 Labs: Laboratory Results - last 24 hr 04/13/24 08:11: WBC 8.7, RBC 3.77 L, Hgb 10.6 L, Hct 34.3 L, MCV 91.0, MCH 28.1, MCHC 30.9 L, RDW Std Deviation 57.7 H, RDW Coeff of Shanta 18.1 H, Plt Count 114 L, MPV 11.7, Immature Gran % (Auto) 0.500, Neut % (Auto) 72.6 H, Lymph % (Auto) 17.0 L, [place] % (Auto) 5.4, Eos % (Auto) 3.5, Baso % (Auto) 1.0, Absolute Neuts (auto) 6.3, Absolute Lymphs (auto) 1.48, Nucleated RBC % 0, PT 17.0 H, INR 1.4, APTT 36.5 H, Sodium 132 L, Potassium 6.0 H*, Chloride 95 L, Carbon Dioxide 29.0, Anion Gap 8, BUN 68 H, Creatinine 9.77 H*, Estim Creat Clear Calc 14.93, Est GFR (MDRD) Af Amer 8 L, Est GFR (MDRD) Non-Af 7 L, BUN/Creatinine Ratio 7.0 L, G lucose 188 H, Lactic Acid 1.2, Calcium 9.6, Total Bilirubin 0.60, AST 21, ALT 23, Alkaline Phosphatase 101, Ammonia 18.0, Troponin I High Sens 19, Total Protein 9.4 H, Albumin 3.1 L, Globulin 6.3 H, Albumin/Globulin Ratio 0.5 L, Lipase 44 04/13/24 09:47: Urine Color Red, Urine Clarity Turbid, Urine pH 8.0, Ur Specific [place] 1.020, Urine Protein 500 H, Urine Glucose (UA) Normal, Urine Ketones 15 H, Urine Occult Blood 150 H, Urine Nitrite Negative, Urine Bilirubin Negative, Urine Urobilinogen Normal, Ur Leukocyte Esterase Negative, Urine RBC > 100 SEEN, Urine WBC 10-25 SEEN, Ur Squamous Epith Cells 0 SEEN, Urine Bacteria 0 SEEN, Urine Mucus 0 SEEN Micro: Microbiology 04/13/24 08:13 Mucosa - Nose Respiratory Panel (PCR) - Preliminary ABG Data ABG results: ABG 04/13/24 08:29 Specimen Type ART Sample Site R Radial pH 7.40 Bicarbonate Actual 27.0 H Total CO2 28 Base Excess 2 O2 Saturation 95 O2 % 2.0 ABG pCO2 43.7 ABG pO2 76 Nick Test Positive O2 Delivery Device Cannula Vent Mode Not entered Imaging Radiology Impression Brain CT 04/13/24 07:55 IMPRESSION: Normal unenhanced CT scan of the brain. Sinusitis. Electronically Signed: Rickie Jay MD at 10:43 EDT , Abdomen/Pelvis CT 04/13/24 07:58 IMPRESSION: Solitary gallstone. 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 A colostomy is once again seen in the lower anterior abdominal wall. Persistent ulceration overlying the left ischial tuberosity with the findings suggestive chronic osteomyelitis. Scattered lucencies are seen within the right iliac bone. Electronically Signed: Rickie Jay MD at 10:41 EDT , Chest X-Ray 04/13/24 09:30 IMPRESSION: Moderate degree of cardiomegaly. CHF. Electronically Signed: Rickie Jay MD at 10:30 EDT , Assessment & Plan Assessment/Plan (1) Toxic metabolic encephalopathy: (2) Hypertensive emergency: (3) Open wound of left buttock without complication: QUALIFIERS: Encounter type: initial encounter Qualified Code(s): S31.829A - Unspecified open wound of left buttock, initial encounter (4) Hyperkalemia: PLAN: Plan Toxic/metabolic encephalopathy/altered mental status -Etiology is unclear -CT unremarkable -Hold gabapentin and narcotics -Will check tobramycin level however it would be odd for this to cause altered mental status as a neurotoxicity -Check MRI without contrast ordered however radiology will not be able to perform until tomorrow morning ?PRES -N.p.o. for now -Dialysis to help clear toxins -Patient had recent TSH on 03/22/2024 and it was 2.39 -Cultures were obtained in the emergency department -Continue to monitor Recent Staph capitis bacteremia/polymicrobial decubitus wound infection (Pseudomonas/Acinetobacter/ESBL E. coli) -Cultures positive x 2 from 03/22/2024 -Has been on tobramycin and Augmentin with recommended stop dates at 05/06/2024 -Will transition to Unasyn -Tobramycin level obtained and found to be therapeutic -Continue tobramycin -Consult ID -Consult wound care Hyperkalemia -Treat with dialysis -Recheck in a.m. Hypertensive emergency/essential hypertension -Patient presented with altered mental status may be related to his blood pressure elevation -Dialysis -Hold home oral medications due to the above -Will schedule hydralazine -As needed labetalol ordered for systolic pressure greater than 160 -reinstitute oral medications as soon as patient is able to participate in swallowing End-stage renal disease-HD dependent/hematuria/history of renal transplant -Per documentation patient been having ongoing hematuria and has suprapubic cath -Patient does not have marked urine output and UA is not consistent with infection -Nephrology consulted -Will restart submillimeter unable to take p.o. -Restart tacrolimus when able--> patient did have a recent level and it was 0.7 on 03/22/2024 GERD -Hold p.o. Protonix -IV Protonix 40 daily Constipation -Continue as needed rectal stool softeners -Reinstitute oral when p.o. status changes Chronic anemia -Secondary to chronic renal disease -Counts seem to be stable Thrombocytopenia -This is new -Suspect related to antibiotics -Will monitor for stability DM-2 -Sliding scale for now every 6 hours -Patient is not on any scheduled insulin at this time -Monitor blood sugars for ongoing needs Status post left BKA -Continue supportive care Hyperlipidemia -Continue home statin History of DVT -Will restart home apixaban when able to take p.o. Suspected VITO -Patient is noncompliant -Will utilize BiPAP while here -Recommend outpatient sleep study Depression/anxiety/insomnia -Restart home Lexapro when able -Restart home melatonin when able Obesity -BMI is 39.5 -Recommend weight loss -Complicates treatment, prognosis, outcomes DVT prophylaxis -Continue home apixaban CODE STATUS Full code Charges/Coding Visit Charges Inpatient E&M: 50094 Init Hosp L3
--- NOTE | 2024-04-13 11:20 | ED.RN ---
Spoke with brothmabel Rosario and updated him on plan of care. Brother luis verbal consent to treat and place central line.
[2024-04-13 11:48] LABS: Troponin-I HS 18 pg/mL (3.0-78.0)
[2024-04-13 11:58] LABS: Potassium 6.1 mmol/L (3.5-5.1)
[2024-04-13] MEDS: hydrALAZINE 20 MG/ML Vial IV (12:03)
--- NOTE | 2024-04-13 12:14 | ED.RN ---
pT. OK FOR FLOOR, DR. TIJERINA CONFIRMED SHE WILL SEE HIM UPSTAIRS
[2024-04-13] MEDS: 0.9% Normal Saline 1,000 ML IV.SOLN. 1000 ML OPERA.SITE (13:15)
[2024-04-13] MEDS: PureFlow B 2K Dialysis Soln 1 BAG 6 BAG PF (13:15)
[2024-04-13 14:27] LABS: Allen Test Positive; Base Excess 3 mmol/L (-2 to +2); Bicarbonate 28.1 mmol/L (22-26); Blood Gas Specimen Type ART; Mode Not entered; O2 Delivery Device Cannula; PO2 93 mmHG (75-100); SITE R Radial; SO2 97 % (95-99); Total Carbon Dioxide 30 mmol/L; pCO2 45.7 mmHg (35-45)
--- NOTE | 2024-04-13 14:35 | MRI_ITS ---
STUDY: MRI BRAIN WITHOUT CONTRAST REASON FOR EXAM: Male, 38 years old. AMS TECHNIQUE: Standardized multiplanar fat and water weighted pulse sequences were obtained. MRI examination brain obtained with standard protocol including multiplanar multiecho noncontrast imaging. Contrast: No contrast administered. COMPARISON: CT of the head on 04/13/2024 LIMITATIONS: Motion artifact. HEMISPHERES, CEREBELLUM AND BRAINSTEM: 1. The cerebral parenchyma, ventricular system, subarachnoid spaces have normal configuration and density. There is a normal gyral pattern. There is normal gore/white differentiation. No midline shift.. 2. The hemispheric white matter has normal appearance. Scattered dilated perivascular spaces are present. 3. No intraparenchymal mass, hemorrhage, or acute territorial infarct. 4. The cerebellum, brainstem, basilar and suprasellar cisterns have normal appearance. No Chiari malformation. PITUITARY: Infundibulum and pituitary have normal configuration. Midline structures appear normal. CSF SPACES: Appropriate for age. No hydrocephalus. Basal cisterns are patent. VESSELS: 1. There are normal flow voids noted in the great vessels at the skull base ORBITS AND PARANASAL SINUSES: 1. Orbits have normal appearance. Abnormal appearance of both globes including posterior chamber. 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 2. Opacification of ethmoid air cells on the RIGHT, mild mucosal thickening in the LEFT ethmoid air cells and moderate mucosal thickening in the RIGHT maxillary sinus. Sphenoid disease is also noted. 3. Extensive RIGHT mastoid and middle ear disease, and mild to moderate LEFT mastoid disease. BONY ELEMENTS: Bony elements of the cranial vault, facial skeleton and skull base have normal appearance. SCALP AND SOFT TISSUES: Normal appearance of the soft tissues of the scalp and the visualized face OTHER: None MRI/Brain without Contrast IMPRESSION: 1. No intracranial mass, hemorrhage, or acute territorial infarct. 2. Abnormality involving both globes with a retinal detachment on the RIGHT, and significant abnormal signal in the LEFT posterior chamber corresponding to the diffuse CT density within the LEFT globe. 3. Extensive ethmoid and maxillary sinus disease. Extensive sphenoid disease also noted. 4. Extensive RIGHT mastoid and middle ear disease. Mild to moderate LEFT mastoid disease. Electronically Signed: Michael Solo MD at 20:55 EDT ,
--- NOTE | 2024-04-13 16:04 | PCM.CONS.R ---
Assessment & Plan Assessment/Plan (1) 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 disease: PLAN: on hemodialysis 4 times a week. was dialyzed saturday last HD today. see orders. dw staff Hyperkalemia. will use 2K bath multiple admissions with similar issues. maybe a candidate for LTACH will dw hospitalist HPI Consult Data Date of Consult: 04/13/24 HPI Narrative Reason for Consultation: ESRD HPI Narrative: CHINA GUILLEN, is a 38 M who presents to hospital for AMS. nephrology on consultation for ESRD. ESRD on HD at correction 4 times a week. recently issues with sacral decubitus, multiple issues. Came in with AMS. K was high. Unable to obtain [facility] Medical History ESRD (end stage renal disease) on dialysis Hx of pulmonary embolus Anemia in chronic kidney disease, on chronic dialysis long-term (current) use of 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 H/O deep venous thrombosis Osteomyelitis of pelvic region Lives in correction Anxiety Open wound Insulin dependent diabetes mellitus Uses wheelchair Injury of back Non-healing wound of amputation stump DM type 2, goal HbA1c < 7% 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, stage 4 Neurogenic bowel Chronic kidney disease with end stage renal failure on dialysis Kidney transplant failure Dependence on renal dialysis Pressure ulcer of left heel, unspecified stage Gastro-esophageal reflux disease without esophagitis Other pericardial effusion (noninflammatory) Other pulmonary embolism without acute cor pulmonale Hypertensive heart and chronic kidney disease with heart failure and stage 1 through stage 4 chronic kidney disease, or unspecified chronic kidney disease Depression Hyperlipemia Hypothyroidism Anemia in chronic kidney disease Neuromuscular dysfunction of bladder, unspecified Paraplegia, incomplete Other acute osteomyelitis, left ankle and foot End stage renal disease Home Medications ?Medication ?Instructions ?Recorded ?Last Taken ?Type acetaminophen 325 mg tablet 650 mg PO Q4H PRN PAIN/FEVER 01/02/23 04/21/23 History apixaban 5 mg tablet (Eliquis) 5 mg PO BID AFIB 01/02/23 07/16/23 History ascorbic acid (vitamin C) 500 mg 500 mg PO QHS SUPPLEMENT 01/02/23 12/08/23 History tablet atorvastatin 40 mg tablet 40 mg PO QHS CHOLESTEROL 01/02/23 12/08/23 History bisacodyl 10 mg rectal suppository 10 mg NC DAILY PRN CONSTIPATION 01/02/23 Unknown History carvedilol 12.5 mg tablet 12.5 mg PO BID HYPERTENSION 01/02/23 12/09/23 History clotrimazole-betamethasone 1 1 applic topical QHS FACE RASH 01/02/23 07/15/23 History %-0.05 % topical cream dextrose 40 % oral gel (Glucose 15 g PO Q15M PRN HYPGLYCEMIA 01/02/23 Unknown History Gel) ondansetron HCl 4 mg tablet 4 mg PO Q8H PRN NAUSEA/VOMITING 01/02/23 Unknown History pantoprazole 40 mg tablet,delayed 40 mg PO DAILY ACID REFLUX 01/02/23 12/08/23 History release sennosides 8.6 mg-docusate sodium 1 tab-cap PO BID CONSTIPATION 01/02/23 07/16/23 History 50 mg capsule (Senna Plus) tacrolimus 1 mg capsule, 2 mg PO Q12H IMMUNOSUPPRESIVE 01/02/23 12/09/23 History immediate-release (Prograf) gabapentin 100 mg capsule 200 mg PO BID PHANTOM PAIN 04/21/23 12/09/23 History sevelamer HCl 800 mg tablet 2,400 mg PO TIDCM ESRD 04/21/23 07/16/23 History levothyroxine 150 mcg tablet 150 mcg PO DAILY@0600 THYROID 07/16/23 12/09/23 History acetaminophen 650 mg rectal 650 mg NC Q4H PRN PAIN/FEVER 08/06/23 Unknown History suppository magnesium hydroxide 400 mg/5 mL 30 ml PO DAILY PRN CONSTIPATION 08/06/23 Unknown History oral suspension (Milk of Magnesia) ciclopirox 8 % topical solution 1 applic topical QHS NAIL FUNGUS 11/17/23 Unknown History diphenhydramine-zinc acetate 2 1 applic topical Q6H PRN ITCHING 12/06/23 Unknown History %-0.1 % topical cream (Benadryl Extra Strength) escitalopram oxalate 10 mg tablet 15 mg PO QHS DEPRESSION 12/30/23 Unknown History (Lexapro) insulin lispro 100 unit/mL See Protocol subcut TIDCM 03/22/24 Unknown History subcutaneous pen vitamin B complex-vitamin C-folic 1 tab PO QPM HEALTH MAINTENANCE 03/22/24 Unknown History acid 0.8 mg tablet guaifenesin 100 mg/5 mL oral 200 mg PO Q4H PRN COUGH/CONGESTION 03/29/24 Unknown History liquid (Adult Tussin Chest Congestion) tobramycin sulfate 40 mg/mL 100 mg (2.5 mL) IV Q24H WOUND 04/01/24 Unknown Rx injection solution INFECTION 35 days #87.5 mL aluminum-magnesium hydroxide 200 30 ml PO Q4H PRN GI DISTRESS 04/13/24 Unknown History mg-200 mg/5 mL oral suspension amoxicillin 500 mg-potassium 1 tab PO QPM INFECTION 04/13/24 Unknown History clavulanate 125 mg tablet glucagon HCl 1 mg solution for 1 mg IM Q20M PRN HYPOGLYCEMIA 04/13/24 Unknown History injection (Glucagon (HCl) Emergency Kit) hydralazine 50 mg tablet 50 mg PO TID BLOOD PRESSURE 04/13/24 Unknown History melatonin 3 mg tablet 3 mg PO Q24H PRN INSOMNIA 04/13/24 Unknown History oxycodone 10 mg tablet 10 mg PO Q8H PRN PAIN 04/13/24 Unknown History polyethylene glycol 3350 17 17 g PO Q24H PRN CONSTIPATION 04/13/24 Unknown History gram/dose oral powder (Miralax) Allergy/AdvReac Type Severity Reaction Status Date / Time No Known Allergies Allergy Verified 02/18/24 04:45 Family History Mother Hypertension Diabetes Father Hypertension Diabetes Surgical History History of kidney transplant S/P unilateral above knee amputation S/P foot surgery S/P colostomy Social History housing: correction Smoking Status: Never smoker alcohol intake: never substance use type: does not use Physical Exam Narrative somewhat sleepy pallor s1s2 b/l air entry soft no edema Lab / Micro Data 04/13/24 08:11 04/13/24 10:55 Labs: Laboratory Results - last 24 hr 04/13/24 08:11: WBC 8.7, RBC 3.77 L, Hgb 10.6 L, Hct 34.3 L, MCV 91.0, MCH 28.1, MCHC 30.9 L, RDW Std Deviation 57.7 H, RDW Coeff of Shanta 18.1 H, Plt Count 114 L, MPV 11.7, Immature Gran % (Auto) 0.500, Neut % (Auto) 72.6 H, Lymph % (Auto) 17.0 L, [place] % (Auto) 5.4, Eos % (Auto) 3.5, Baso % (Auto) 1.0, Absolute Neuts (auto) 6.3, Absolute Lymphs (auto) 1.48, Nucleated RBC % 0, PT 17.0 H, INR 1.4, APTT 36.5 H, Sodium 132 L, Potassium 6.0 H*, Chloride 95 L, Carbon Dioxide 29.0, Anion Gap 8, BUN 68 H, Creatinine 9.77 H*, Estim Creat Clear Calc 14.93, Est GFR (MDRD) Af Amer 8 L, Est GFR (MDRD) Non-Af 7 L, BUN/Creatinine Ratio 7.0 L, Glucose 188 H, Lactic Acid 1.2, Calcium 9.6, Total Bilirubin 0.60, AST 21, ALT 23, Alkaline Phosphatase 101, Ammonia 18.0, Troponin I High Sens 19, Total Protein 9.4 H, Albumin 3.1 L, Globulin 6.3 H, Albumin/Globulin Ratio 0.5 L, Lipase 44 04/13/24 09:47: Urine Color Red, Urine Clarity Turbid, Urine pH 8.0, Ur Specific [place] 1.020, Urine Protein 500 H, Urine Glucose (UA) Normal, Urine Ketones 15 H, Urine Occult Blood 150 H, Urine Nitrite Negative, Urine Bilirubin Negative, Urine Urobilinogen Normal, Ur Leukocyte Esterase Negative, Urine RBC > 100 SEEN, Urine WBC 10-25 SEEN, Ur Squamous Epith Cells 0 SEEN, Urine Bacteria 0 SEEN, Urine Mucus 0 SEEN 04/13/24 10:55: Potassium 6.1 H*, Troponin I High Sens 18 Micro: Microbiology 04/13/24 08:13 Mucosa - Nose Respiratory Panel (PCR) - Final ABG Data ABG results: ABG 04/13/24 04/13/24 08:29 14:24 Specimen Type ART ART Sample Site R Radial R Radial pH 7.40 7.40 Bicarbonate Actual 27.0 H 28.1 H Total CO2 28 30 Base Excess 2 3 H O2 Saturation 95 97 O2 % 2.0 2.0 ABG pCO2 43.7 45.7 H ABG pO2 76 93 Nick Test Positive Positive O2 Delivery Device Cannula Cannula Vent Mode Not entered Not entered Imaging Radiology Impression Brain CT 04/13/24 07:55 IMPRESSION: Normal unenhanced CT scan of the brain. Sinusitis. Electronically Signed: Rickie Jay MD at 10:43 EDT , Abdomen/Pelvis CT 04/13/24 07:58 IMPRESSION: Solitary gallstone. 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 A colostomy is once again seen in the lower anterior abdominal wall. Persistent ulceration overlying the left ischial tuberosity with the findings suggestive chronic osteomyelitis. Scattered lucencies are seen within the right iliac bone. Electronically Signed: Rickie Jay MD at 10:41 EDT , Chest X-Ray 04/13/24 09:30 IMPRESSION: Moderate degree of cardiomegaly. CHF. Electronically Signed: Rickie Jay MD at 10:30 EDT ,
[2024-04-13] MEDS: hydrALAZINE 20 MG/ML Vial 10 MG IV (17:48)
--- NOTE | 2024-04-13 18:04 | PCM.RX.CS ---
Consult Antibiotic Management Pharmacy has been consulted to manage selected antibiotic: Tobramycin Type of Intervention Type of Consult: New start Suspected Infection Suspected Infection: Osteomyelitis Prior Doses of Antibiotics Prior Doses of Antibiotics Received/Current Regimen: Patient has been on 150mg M_W_F post HD Tx at previous facility. Labs Labs: Sodium 132 mmol/L (136-145) L 04/13/24 08:11 Potassium 6.1 mmol/L (3.5-5.1) H* 04/13/24 10:55 Chloride 95 mmol/L (98-107) L 04/13/24 08:11 Carbon Dioxide 29.0 mmol/L (21.0-32.0) 04/13/24 08:11 Anion Gap 8 (5-15) 04/13/24 08:11 BUN 68 mg/dL (7-18) H 04/13/24 08:11 Creatinine 9.77 mg/dL (0.70-1.30) H* 04/13/24 08:11 Est GFR (MDRD) Af Amer 8 mL/min (>60) L 04/13/24 08:11 Est GFR (MDRD) Non-Af 7 mL/min (>60) L 04/13/24 08:11 BUN/Creatinine Ratio 7.0 RATIO (10-20) L 04/13/24 08:11 Glucose 188 mg/dL (74-106) H 04/13/24 08:11 Random Tobramycin 1.10 ug/mL 04/13/24 17:00 Microbiology Microbiology: Microbiology 04/13/24 08:13 Mucosa - Nose Respiratory Panel (PCR) - Final Dosing Weight Weight used for dosin.7 kg Pharmacy Plan for Drug Dosing Pharmacy Plan for Drug Dosing: Random level today post dialysis was 1.10. Will give 150mg iv today and continue order of 150mg iv M-W-F post HD. Pharmacy Service will continue to monitor and adjust dosing as required.
[2024-04-13 18:18] LABS: Bedside Glucose 138 mg/dL (74-106)
[2024-04-13] MEDS: TOBRAMYCIN IV (20:56)
[2024-04-13] MEDS: WATER IV (20:56)
[2024-04-13] MEDS: DEXTROSE 5% IV (20:56)
[2024-04-13] MEDS: 0.9% Saline Lock 10 ML Syringe IV (20:57)
[2024-04-13] MEDS: Ampicillin/Sulbactam 3 GM in 0.9% Normal Saline (100mL MB+) 100 ML IV (21:56)
[2024-04-13] MEDS: Clotrimazole/Betamethasone 1 Tube 1 APPLIC TOPICAL (21:57)
[2024-04-14] VITALS (30 sets, daily range): BP systolic 82–289; BP diastolic 72–103; PULSE 82–111; RESP 8–22; TEMP 36.4–36.9; O2SAT 93–100; BMI 39.4; BMI 39.2
[2024-04-14] MEDS: hydrALAZINE 20 MG/ML Vial 10 MG IV ×4 (00:22→17:07)
[2024-04-14 00:28] LABS: Bedside Glucose 142 mg/dL (74-106)
[2024-04-14] MEDS: Labetalol (Prefilled) 20 MG/4 ML IV ×2 (04:09→18:39)
[2024-04-14] MEDS: 0.9% Saline Lock 10 ML Syringe IV ×3 (04:10→20:06)
[2024-04-14 06:01] LABS: Absolute Lymphocyte Count 1.47 X10^3/uL (0.83-4.51); Absolute Neutrophil Count 5.3 X10^3/uL (2.0-7.7); Basophil# 0.08 X10^3/uL; Eosinophil# 0.33 X10^3/uL; Eosinophils% 4.2 % (0-5); Hematocrit 30.8 % (40-54); Hemoglobin 9.2 g/dL (13.0-16.5); Lymphocyte # 1.47 X10^3/ul (0.83-4.51); Lymphocyte % 18.6 % (19-41); Mean Corp Hgb Conc 29.9 g/dL (32-36); Mean Corpuscular Volume 93.6 fL (80-94); Mean Platelet Vol. 10.7 fl (6.2-12.0); Monocyte# 0.66 X10^3/uL; Monocyte% 8.4 % (0-10); NRBC Flagged by Analyzer 0 % (0-5); Neutrophil # 5.34 X10^3/uL (2.7-7.7); Neutrophil % 67.5 % (47-70); Platelet Count 100 K/mm3 (150-450); RBC Distribution Width CV 18.6 % (11.6-14.6); RBC Distribution Width SD 62.4 fl (35.1-43.9); Red Blood Count 3.29 M/mm3 (4.6-6.2); White Blood Count 7.9 K/mm3 (4.4-11.0)
[2024-04-14 06:23] LABS: Bedside Glucose 127 mg/dL (74-106)
[2024-04-14 06:28] LABS: Anion Gap 8 (5-15); BUN 51 mg/dL (7-18); BUN/Creat Ratio 6.3 RATIO (10-20); Chloride 99 mmol/L (98-107); Creatinine, Serum 8.09 mg/dL (0.70-1.30); EST Glomerular Filtration Rate 8 mL/min (>60); Est Glom Filt Rate - Afr Amer 10 mL/min (>60); Estimated Creatinine Clearance 17.75 ml/min; Glucose 137 mg/dL (74-106); Potassium 5.6 mmol/L (3.5-5.1); Sodium Level 132 mmol/L (136-145)
--- NOTE | 2024-04-14 09:51 | CASEMGMT ---
Addendum entered by Selina Sylvester 04/14/24 10:20: Pt is a bedhold and will not need a precert to return. Selina Sylvester DC Planning Asst. Original Note: Discharge Planning Updates sent via [facility] to [facility]. Asked for confirmation that pt will not need precert to return. Awaiting response. Selina Sylvester DC Planning Asst.
--- NOTE | 2024-04-14 10:34 | PCM.CONS.GEN ---
Assessment & Plan Assessment/Plan (1) Toxic metabolic encephalopathy: (2) Hyperkalemia: (3) 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 disease: (4) Osteomyelitis of pelvic region: PLAN: Wound cx with AcB, PsA, esbl ecoli. Discharged on iv tobra 1.5mg/kg per dose (150mg based on 100kg IBW) given with HD sessions -Sat at [facility]. Will give po augmentin along with it for planned 6 week course, stop date 05/06/24. Left to ECF on 03/27 after 1st dose of tobra, came back again 04/13 after missed HD with hyperkalemia and encephalopathy. Cont tobra/unasyn here. Will follow, thank you HPI Consult Data Date of Consult: 04/14/24 HPI Narrative Reason for Consultation: osteo HPI Narrative: CH[place] GUILLEN, is a 38 M paraplegia, recent admit with ischial osteo. Surgery consulted. Bcx with CoNS. Ucx with PsA, GNR. Wound cx with AcB, PsA, esbl ecoli. Discharged on iv tobra 1.5mg/kg per dose (150mg based on 100kg IBW) given with HD sessions [id number] at [facility]. Will give po augmentin along with it for planned 6 week course, stop date 05/06/24. Readmitted here 04/13 due to altered mental status after missing HD. Now back on tobra and unasyn here. ROS unobtainable due to mental status [facility] Medical History Decubitus ulcer Abscess Left ischial pressure sore Open wound of left buttock with complication Current use of intermediate anticoagulation Acute hyperkalemia Acute alteration in mental status Phantom limb syndrome with pain Paraplegia Metabolic encephalopathy Type 2 diabetes mellitus End-stage renal disease on hemodialysis Anticoagulant long-term use ESRD (end stage renal disease) on dialysis Hx of pulmonary embolus Anemia in chronic kidney disease, on chronic dialysis retirement (current) use of 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 H/O deep venous thrombosis Osteomyelitis of pelvic region Lives in care home Anxiety Open wound Insulin dependent diabetes mellitus Uses wheelchair Injury of back Non-healing wound of amputation stump DM type 2, goal HbA1c < 7% 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, stage 4 Neurogenic bowel Chronic kidney disease with end stage renal failure on dialysis Kidney transplant failure Dependence on renal dialysis Pressure ulcer of left heel, unspecified stage Gastro-esophageal reflux disease without esophagitis Other pericardial effusion (noninflammatory) Other pulmonary embolism without acute cor pulmonale Hypertensive heart and chronic kidney disease with heart failure and stage 1 through stage 4 chronic kidney disease, or unspecified chronic kidney disease Depression Hyperlipemia Hypothyroidism Anemia in chronic kidney disease Neuromuscular dysfunction of bladder, unspecified Paraplegia, incomplete Other acute osteomyelitis, left ankle and foot End stage renal disease Home Medications ?Medication ?Instructions ?Recorded ?Last Taken ?Type acetaminophen 325 mg tablet 650 mg PO Q4H PRN PAIN/FEVER 01/02/23 04/21/23 History apixaban 5 mg tablet (Eliquis) 5 mg PO BID AFIB 01/02/23 07/16/23 History ascorbic acid (vitamin C) 500 mg 500 mg PO QHS SUPPLEMENT 01/02/23 12/08/23 History tablet atorvastatin 40 mg tablet 40 mg PO QHS CHOLESTEROL 01/02/23 12/08/23 History bisacodyl 10 mg rectal suppository 10 mg NC DAILY PRN CONSTIPATION 01/02/23 Unknown History carvedilol 12.5 mg tablet 12.5 mg PO BID HYPERTENSION 01/02/23 12/09/23 History clotrimazole-betamethasone 1 1 applic topical QHS FACE RASH 01/02/23 07/15/23 History %-0.05 % topical cream dextrose 40 % oral gel (Glucose 15 g PO Q15M PRN HYPGLYCEMIA 01/02/23 Unknown History Gel) ondansetron HCl 4 mg tablet 4 mg PO Q8H PRN NAUSEA/VOMITING 01/02/23 Unknown History pantoprazole 40 mg tablet,delayed 40 mg PO DAILY ACID REFLUX 01/02/23 12/08/23 History release sennosides 8.6 mg-docusate sodium 1 tab-cap PO BID CONSTIPATION 01/02/23 07/16/23 History 50 mg capsule (Senna Plus) tacrolimus 1 mg capsule, 2 mg PO Q12H IMMUNOSUPPRESIVE 01/02/23 12/09/23 History immediate-release (Prograf) gabapentin 100 mg capsule 200 mg PO BID PHANTOM PAIN 04/21/23 12/09/23 History sevelamer HCl 800 mg tablet 2,400 mg PO TIDCM ESRD 04/21/23 07/16/23 History levothyroxine 150 mcg tablet 150 mcg PO DAILY@0600 THYROID 07/16/23 12/09/23 History acetaminophen 650 mg rectal 650 mg NC Q4H PRN PAIN/FEVER 08/06/23 Unknown History suppository magnesium hydroxide 400 mg/5 mL 30 ml PO DAILY PRN CONSTIPATION 08/06/23 Unknown History oral suspension (Milk of Magnesia) ciclopirox 8 % topical solution 1 applic topical QHS NAIL FUNGUS 11/17/23 Unknown History diphenhydramine-zinc acetate 2 1 applic topical Q6H PRN ITCHING 12/06/23 Unknown History %-0.1 % topical cream (Benadryl Extra Strength) escitalopram oxalate 10 mg tablet 15 mg PO QHS DEPRESSION 12/30/23 Unknown History (Lexapro) insulin lispro 100 unit/mL See Protocol subcut TIDCM 03/22/24 Unknown History subcutaneous pen vitamin B complex-vitamin C-folic 1 tab PO QPM HEALTH MAINTENANCE 03/22/24 Unknown History acid 0.8 mg tablet guaifenesin 100 mg/5 mL oral 200 mg PO Q4H PRN COUGH/CONGESTION 03/29/24 Unknown History liquid (Adult Tussin Chest Congestion) tobramycin sulfate 40 mg/mL 100 mg (2.5 mL) IV Q24H WOUND 04/01/24 Unknown Rx injection solution INFECTION 35 days #87.5 mL aluminum-magnesium hydroxide 200 30 ml PO Q4H PRN GI DISTRESS 04/13/24 Unknown History mg-200 mg/5 mL oral suspension amoxicillin 500 mg-potassium 1 tab PO QPM INFECTION 04/13/24 Unknown History clavulanate 125 mg tablet glucagon HCl 1 mg solution for 1 mg IM Q20M PRN HYPOGLYCEMIA 04/13/24 Unknown History injection (Glucagon (HCl) Emergency Kit) hydralazine 50 mg tablet 50 mg PO TID BLOOD PRESSURE 04/13/24 Unknown History melatonin 3 mg tablet 3 mg PO Q24H PRN INSOMNIA 04/13/24 Unknown History oxycodone 10 mg tablet 10 mg PO Q8H PRN PAIN 04/13/24 Unknown History polyethylene glycol 3350 17 17 g PO Q24H PRN CONSTIPATION 04/13/24 Unknown History gram/dose oral powder (Miralax) Allergy/AdvReac Type Severity Reaction Status Date / Time No Known Allergies Allergy Verified 02/18/24 04:45 Family History Mother Hypertension Diabetes Father Hypertension Diabetes Surgical History History of kidney transplant S/P unilateral above knee amputation S/P foot surgery S/P colostomy Social History housing: care home Smoking Status: Never smoker alcohol intake: never substance use type: does not use Physical Exam Const no apparent distress General Appearance: lethargic HEENT normocephalic and head/scalp atraumatic Eyes PERRL and EOMs intact bilaterally Neck supple and nodes Resp normal air movement and clear to auscultation bilaterally Cardio regular rate and regular rhythm GI soft to palpation, non-tender and non-distended Extremity General Extremity: edema Skin Skin Narrative: no new rash Neuro Neuro Narrative: not following commands Lab / Micro Data Attestation: I reviewed the patient's lab results. 04/14/24 05:49 04/14/24 05:49 Labs: Laboratory Results - last 24 hr 04/13/24 09:47: Urine Color Red, Urine Clarity Turbid, Urine pH 8.0, Ur Specific [place] 1.020, Urine Protein 500 H, Urine Glucose (UA) Normal, Urine Ketones 15 H, Urine Occult Blood 150 H, Urine Nitrite Negative, Urine Bilirubin Negative, Urine Urobilinogen Normal, Ur Leukocyte Esterase Negative, Urine RBC > 100 SEEN, Urine WBC 10-25 SEEN, Ur Squamous Epith Cells 0 SEEN, Urine Bacteria 0 SEEN, Urine Mucus 0 SEEN 04/13/24 10:55: Potassium 6.1 H*, Troponin I High Sens 18 04/13/24 17:00: Random Tobramycin 1.10 04/13/24 17:41: POC Glucose 138 H 04/14/24 00:10: POC Glucose 142 H 04/14/24 05:49: WBC 7.9, RBC 3.29 L, Hgb 9.2 L, Hct 30.8 L, MCV 93.6, MCH 28.0, MCHC 29.9 L, RDW Std Deviation 62.4 H, RDW Coeff of Shanta 18.6 H, Plt Count 100 L, MPV 10.7, Immature Gran % (Auto) 0.300, Neut % (Auto) 67.5, Lymph % (Auto) 18.6 L, [place] % (Auto) 8.4, Eos % (Auto) 4.2, Baso % (Auto) 1.0, Absolute Neuts (auto) 5.3, Absolute Lymphs (auto) 1.47, Nucleated RBC % 0, Sodium 132 L, Potassium 5.6 H, Chloride 99, Carbon Dioxide 26.0, Anion Gap 8, BUN 51 H, Creatinine 8.09 H*, Estim Creat Clear Calc 17.75, Est GFR (MDRD) Af Amer 10 L, Est GFR (MDRD) Non-Af 8 L, BUN/Creatinine Ratio 6.3 L, Glucose 137 H, Calcium 9.0 04/14/24 05:51: POC Glucose 127 H Micro: Microbiology 04/13/24 09:47 Urine Catheter - [place] Urine Culture - 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 Sinusitis. Electronically Signed: Rickie Jay MD at 10:43 EDT , Abdomen/Pelvis CT 04/13/24 07:58 IMPRESSION: Solitary gallstone. 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 A colostomy is once again seen in the lower anterior abdominal wall. Persistent ulceration overlying the left ischial tuberosity with the findings suggestive chronic osteomyelitis. Scattered lucencies are seen within the right iliac bone. Electronically Signed: Rickie Jay MD at 10:41 EDT , Brain MRI 04/13/24 14:35 IMPRESSION: 1. No intracranial mass, hemorrhage, or acute territorial infarct. 2. Abnormality involving both globes with a retinal detachment on the RIGHT, and significant abnormal signal in the LEFT posterior chamber corresponding to the diffuse CT density within the LEFT globe. 3. Extensive ethmoid and maxillary sinus disease. Extensive sphenoid disease also noted. 4. Extensive RIGHT mastoid and middle ear disease. Mild to moderate LEFT mastoid disease. Electronically Signed: Michael Solo MD at 20:55 EDT ,
--- NOTE | 2024-04-14 10:59 | PN.RENAL_ITS ---
Subjective Subjective events noted. MRI with suspected retinal detachment. K is high again. Objective Data Objective Data Vital Signs: Vital Signs Temp Pulse Resp BP Pulse Ox O2 Del Method O2 Flow Rate 97.5 F L 89 16 166/100 H 100 Bi-pap 2 04/14/24 10:42 04/14/24 10:42 04/14/24 10:42 04/14/24 10:42 04/14/24 10:42 04/14/24 10:42 04/13/24 20:09 FiO2 30 04/14/24 08:10 Oxygen Flow Rate (L/min) 2 Oxygen Delivery Method Bi-pap Weight: 132.2 kg Body Mass Index (BMI) 39.4 Intake & Output: Intake and Output for Last 24 Hours 04/12/24 04/13/24 04/14/24 23:59 23:59 23:59 Intake Total 1305.75 / 1305.75 0 / 0 Output Total 2550 / 2550 Balance -1244.25 / -1244.25 -10 / -10 Lab / Micro Data 04/14/24 05:49 04/14/24 05:49 Labs: Laboratory Results - last 24 hr 04/13/24 09:47: Urine Color Red, Urine Clarity Turbid, Urine pH 8.0, Ur Specific [place] 1.020, Urine Protein 500 H, Urine Glucose (UA) Normal, Urine Ketones 15 H, Urine Occult Blood 150 H, Urine Nitrite Negative, Urine Bilirubin Negative, Urine Urobilinogen Normal, Ur Leukocyte Esterase Negative, Urine RBC > 100 SEEN, Urine WBC 10-25 SEEN, Ur Squamous Epith Cells 0 SEEN, Urine Bacteria 0 SEEN, Urine Mucus 0 SEEN 04/13/24 10:55: Potassium 6.1 H*, Troponin I High Sens 18 04/13/24 17:00: Random Tobramycin 1.10 04/13/24 17:41: POC Glucose 138 H 04/14/24 00:10: POC Glucose 142 H 04/14/24 05:49: WBC 7.9, RBC 3.29 L, Hgb 9.2 L, Hct 30.8 L, MCV 93.6, MCH 28.0, MCHC 29.9 L, RDW Std Deviation 62.4 H, RDW Coeff of Shanta 18.6 H, Plt Count 100 L, MPV 10.7, Immature Gran % (Auto) 0.300, Neut % (Auto) 67.5, Lymph % (Auto) 18.6 L, [place] % (Auto) 8.4, Eos % (Auto) 4.2, Baso % (Auto) 1.0, Absolute Neuts (auto) 5.3, Absolute Lymphs (auto) 1.47, Nucleated RBC % 0, Sodium 132 L, Potassium 5.6 H, Chloride 99, Carbon Dioxide 26.0, Anion Gap 8, BUN 51 H, Creatinine 8.09 H*, Estim Creat Clear Calc 17.75, Est GFR (MDRD) Af Amer 10 L, Est GFR (MDRD) Non-Af 8 L, BUN/Creatinine Ratio 6.3 L, Glucose 137 H, Calcium 9.0 04/14/24 05:51: POC Glucose 127 H Micro: Microbiology 04/13/24 09:47 Urine Catheter - [place] Urine Culture - 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 No intracranial mass, hemorrhage, or acute territorial infarct. 2. Abnormality involving both globes with a retinal detachment on the RIGHT, and significant abnormal signal in the LEFT posterior chamber corresponding to the diffuse CT density within the LEFT globe. 3. Extensive ethmoid and maxillary sinus disease. Extensive sphenoid disease also noted. 4. Extensive RIGHT mastoid and middle ear disease. Mild to moderate LEFT mastoid disease. Electronically Signed: Michael Solo MD at 20:55 EDT , Physical Exam Narrative somewhat sleepy pallor s1s2 b/l air entry soft no edema Assessment & Plan Assessment/Plan (1) 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 disease: PLAN: on hemodialysis 4 times a week. received about 3 hrs 15 min HD yesterday. K is high again. will plan for HD again today received call from HD unit, has had poor clearances in HD. no issues with flows. ? recirculation. may need fistulogram if clearances remain poor dw staff HTN. Bp is acceptable for now. ID note reviewed.
[2024-04-14] MEDS: PureFlow B 2K Dialysis Soln 1 BAG 6 BAG PF (12:55)
[2024-04-14] MEDS: 0.9% Normal Saline 1,000 ML IV.SOLN. 1000 ML OPERA.SITE (12:56)
--- NOTE | 2024-04-14 13:58 | WOUNDNOTE ---
Pt is currently in dialysis.
[2024-04-14] MEDS: Pantoprazole Sodium 40 MG in 0.9% Normal Saline (100mL MB+) 100 ML 330 MG IV (14:47)
--- NOTE | 2024-04-14 15:17 | CASEMGMT ---
DUSTIN CM completed CM: Readmission Intervention. Patient is from [facility]. Concern from penology professor that patient may benefit from Ltach at discharge. CM will continue to follow this patient and monitor course of treatment for possible Ltach at discharge.
[2024-04-14 15:36] LABS: Bedside Glucose 118 mg/dL (74-106)
--- NOTE | 2024-04-14 15:55 | WOUNDNOTE ---
wound photo: left ischium
[2024-04-14 16:11] LABS: Bedside Glucose 113 mg/dL (74-106)
[2024-04-14] MEDS: WATER IV (16:43)
[2024-04-14] MEDS: DEXTROSE 5% IV (16:43)
[2024-04-14] MEDS: TOBRAMYCIN IV (16:43)
--- NOTE | 2024-04-14 18:07 | PN.HOSP_ITS ---
Reason for Visit Reason for Visit: Altered mental status Subjective Subjective Patient is a bit more awake today in response to name. Able to interact some today. Currently no complaints. Appears comfortable currently on dialysis. Objective Data Objective Data Vital Signs: Vital Signs Temp Pulse Resp BP Pulse Ox O2 Del Method O2 Flow Rate 98.5 F 111 H 14 167/82 H 100 Bi-pap 2 04/14/24 15:06 04/14/24 17:07 04/14/24 15:06 04/14/24 17:07 04/14/24 15:06 04/14/24 15:06 04/13/24 20:09 FiO2 28 04/14/24 13:40 Oxygen Flow Rate (L/min) 2 Oxygen Delivery Method Bi-pap Weight: 131.6 kg Body Mass Index (BMI) 39.2 Intake & Output: Intake and Output for Last 24 Hours 04/12/24 04/13/24 04/14/24 23:59 23:59 23:59 Intake Total 1305.75 / 1305.75 163.75 / 163.75 Output Total 2550 / 2550 2590 / 2590 Balance -1244.25 / -1244.25 -2426.25 / -2426.25 Lab / Micro Data 04/14/24 05:49 04/14/24 05:49 Labs: Laboratory Results - last 24 hr 04/13/24 09:47: Urine Color Red, Urine Clarity Turbid, Urine pH 8.0, Ur Specific [place] 1.020, Urine Protein 500 H, Urine Glucose (UA) Normal, Urine Ketones 15 H, Urine Occult Blood 150 H, Urine Nitrite Negative, Urine Bilirubin Negative, Urine Urobilinogen Normal, Ur Leukocyte Esterase Negative, Urine RBC > 100 SEEN, Urine WBC 10-25 SEEN, Ur Squamous Epith Cells 0 SEEN, Urine Bacteria 0 SEEN, Urine Mucus 0 SEEN 04/13/24 17:41: POC Glucose 138 H 04/14/24 00:10: POC Glucose 142 H 04/14/24 05:49: WBC 7.9, RBC 3.29 L, Hgb 9.2 L, Hct 30.8 L, MCV 93.6, MCH 28.0, MCHC 29.9 L, RDW Std Deviation 62.4 H, RDW Coeff of Shanta 18.6 H, Plt Count 100 L, MPV 10.7, Immature Gran % (Auto) 0.300, Neut % (Auto) 67.5, Lymph % (Auto) 18.6 L, [place] % (Auto) 8.4, Eos % (Auto) 4.2, Baso % (Auto) 1.0, Absolute Neuts (auto) 5.3, Absolute Lymphs (auto) 1.47, Nucleated RBC % 0, Sodium 132 L, Potassium 5.6 H, Chloride 99, Carbon Dioxide 26.0, Anion Gap 8, BUN 51 H, Creatinine 8.09 H*, Estim Creat Clear Calc 17.75, Est GFR (MDRD) Af Amer 10 L, Est GFR (MDRD) Non-Af 8 L, BUN/Creatinine Ratio 6.3 L, Glucose 137 H, Calcium 9.0 04/14/24 05:51: POC Glucose 127 H 04/14/24 14:57: POC Glucose 118 H 04/14/24 15:49: POC Glucose 113 H Micro: Microbiology 04/13/24 09:47 Urine Catheter - Hurst Urine Culture - Preliminary GNR lactose spinning frame tender Gram negative polo 04/13/24 08:13 Mucosa - Nose Respiratory Panel (PCR) - Final Radiography Diagnostic Testing: Radiology Impression Brain MRI 04/13/24 14:35 IMPRESSION: 1. No intracranial mass, hemorrhage, or acute territorial infarct. 2. Abnormality involving both globes with a retinal detachment on the RIGHT, and significant abnormal signal in the LEFT posterior chamber corresponding to the diffuse CT density within the LEFT globe. 3. Extensive ethmoid and maxillary sinus disease. Extensive sphenoid disease also noted. 4. Extensive RIGHT mastoid and middle ear disease. Mild to moderate LEFT mastoid disease. Electronically Signed: Michael Solo MD at 20:55 EDT , Physical Exam Const alert, no apparent distress and well nourished; Negative for oriented x3, average body habitus or healthy appearing Constitutional Narrative: Middle-aged, -Macedonian male, obese, lying in bed, responded to name and following commands intermittently, definitely improved, still remains somewhat lethargic Orientation / Consciousness: lethargic HEENT normocephalic, head/scalp atraumatic and moist oral mucous membranes HEENT Narrative: Lips are dry, mucous membranes intraorally are moist, BiPAP currently in place Eyes conjunctivae normal Eyes Narrative: No scleral icterus Neck no lymphadenopathy and supple Neck Narrative: Trachea is midline, no thyroid enlargement Resp normal respiratory effort, no retractions and no use of accessory muscles Resp Narrative: Exam limited due to body habitus and positioning as patient is currently on dialysis unable to sit up Auscultation: Negative for rales, rhonchi or wheezes Cardio regular rate, regular rhythm, S1 normal heart sound, S2 normal heart sound, no murmurs, no rub, no gallops and no clicks GI normal to inspection, nondistended, normoactive bowel sounds, soft to palpation and non-tender GI Narrative: Large protuberant abdomen Extremity no clubbing, cyanosis or edema Extremity Narrative: Right lower extremity with no significant noted abnormalities, patient is a left lower extremity amputee Skin no jaundice, no petechiae and no mottling Skin Narrative: Pictures from wound care reviewed Neuro No oriented x3 Neuro Narrative: Moves upper extremities symmetrically, alert and oriented to self able to follow some commands, speech is somewhat delayed however he does respond more appropriately than yesterday Sensorium / Orientation: awake, alert and oriented to person; Negative for oriented to place or oriented to time Speech: Negative for speech normal Psych Psych Narrative: Unable to assess due to mentation Assessment & Plan Assessment/Plan (1) Toxic metabolic encephalopathy: (2) Hypertensive emergency: (3) Open wound of left buttock without complication: QUALIFIERS: Encounter type: initial encounter Qualified Code(s): S31.829A - Unspecified open wound of left buttock, initial encounter (4) Hyperkalemia: PLAN: Plan Toxic/metabolic encephalopathy/altered mental status -Etiology is unclear -CT unremarkable -Hold gabapentin and narcotics -Will check tobramycin level however it would be odd for this to cause altered mental status as a neurotoxicity -MRI does not show any intracerebral abnormality -N.p.o. for now -Dialysis to help clear toxins -Patient had recent TSH on 03/22/2024 and it was 2.39 -Cultures were obtained in the emergency department -Continue to monitor Recent Staph capitis bacteremia/polymicrobial decubitus wound infection (Pseudomonas/Acinetobacter/ESBL E. coli) -Cultures positive x 2 from 03/22/2024 -Has been on tobramycin and Augmentin with recommended stop dates at 05/06/2024 -Will transition to Unasyn -Continue tobramycin -ID is following-appreciate input -Wound care is following and pictures reviewed Gram-negative UTI -Urine culture was sent and is growing gram-negative organisms unclear if this is conization or a urinary tract infection -With mental status on presentation we will transition from Unasyn to meropenem and await further ID recommendations as they see the results of the cultures Bilateral retinal detachments -These are chronic and he has been evaluated both by ophthalmology and retinal specialists -Discussed case with on-call brown stock washer Dr. Elena Schneider ophthalmology -Will ensure outpatient follow-up after discharge Otitis media and mastoiditis -Continue antibiotics as ordered Hyperkalemia -Still slightly elevated -HD again today per nephrology Hypertensive emergency/essential hypertension -Patient presented with altered mental status may be related to his blood pressure elevation -Dialysis -Continue to hold home oral medications due to mental status -Continue scheduled hydralazine -Will schedule labetalol -reinstitute oral medications as soon as patient is able to participate in swallowing End-stage renal disease-HD dependent/hematuria/history of renal transplant -Per documentation patient been having ongoing hematuria and has suprapubic cath -Patient does not have marked urine output and UA is not consistent with infection -Nephrology following -Restart tacrolimus when able--> patient did have a recent level and it was 0.7 on 03/22/2024 -Plan for HD again today due to hyperkalemia GERD -Hold p.o. Protonix -IV Protonix 40 daily Constipation -Continue as needed rectal stool softeners -Reinstitute oral when p.o. status changes Chronic anemia -Secondary to chronic renal disease -Counts seem to be stable Thrombocytopenia -This is new -Suspect related to antibiotics -Will monitor for stability DM-2 -Sliding scale for now every 6 hours -Patient is not on any scheduled insulin at this time -Monitor blood sugars for ongoing needs Status post left BKA -Continue supportive care Hyperlipidemia -Continue home statin History of DVT -Will restart home apixaban when able to take p.o. -Remote Suspected VITO -Patient is noncompliant -Will utilize BiPAP while here -Recommend outpatient sleep study Depression/anxiety/insomnia -Restart home Lexapro when able -Restart home melatonin when able Obesity -BMI is 39.5 -Recommend weight loss -Complicates treatment, prognosis, outcomes DVT prophylaxis -Continue home apixaban when able to take p.o. -Add subcu heparin for now CODE STATUS Full code Charges/Coding Visit Charges Inpatient E&M: 51497 Subs Hosp L3
[2024-04-14] MEDS: Meropenem 1 GM in 0.9% Normal Saline (100mL MB+) 100 ML IV (18:41)
[2024-04-14] MEDS: Clotrimazole/Betamethasone 1 Tube 1 APPLIC TOPICAL (21:22)
[2024-04-14] MEDS: Heparin Injection (Vial) 5,000 UNIT/ML VIAL 5000 UNIT SC (21:22)
[2024-04-15] VITALS (17 sets, daily range): BP systolic 153–181; BP diastolic 81–101; PULSE 86–97; RESP 12–20; TEMP 36.2–36.9; O2SAT 93–100
[2024-04-15] MEDS: hydrALAZINE 20 MG/ML Vial 10 MG IV ×3 (00:09→11:33)
[2024-04-15] MEDS: Labetalol (Prefilled) 20 MG/4 ML IV ×3 (00:12→11:35)
[2024-04-15 00:44] LABS: Bedside Glucose 106 mg/dL (74-106)
[2024-04-15 04:21] LABS: Absolute Lymphocyte Count 1.62 X10^3/uL (0.83-4.51); Absolute Neutrophil Count 4.5 X10^3/uL (2.0-7.7); Basophil# 0.07 X10^3/uL; Basophil% 0.9 % (0-1); Eosinophil# 0.38 X10^3/uL; Eosinophils% 5.1 % (0-5); Hematocrit 31.4 % (40-54); Hemoglobin 9.4 g/dL (13.0-16.5); Lymphocyte # 1.62 X10^3/ul (0.83-4.51); Lymphocyte % 21.9 % (19-41); Mean Corp Hgb Conc 29.9 g/dL (32-36); Mean Corpuscular Hgb 27.8 pg (27.0-32.0); Mean Corpuscular Volume 92.9 fL (80-94); Mean Platelet Vol. 10.8 fl (6.2-12.0); Monocyte# 0.77 X10^3/uL; Monocyte% 10.4 % (0-10); NRBC Flagged by Analyzer 0 % (0-5); Neutrophil # 4.54 X10^3/uL (2.7-7.7); Neutrophil % 61.4 % (47-70); POSITIVE COUNT YES; Platelet Count 89 K/mm3 (150-450); RBC Distribution Width CV 18.6 % (11.6-14.6); RBC Distribution Width SD 62.2 fl (35.1-43.9); Red Blood Count 3.38 M/mm3 (4.6-6.2); White Blood Count 7.4 K/mm3 (4.4-11.0)
[2024-04-15 04:34] LABS: Anion Gap 8 (5-15); BUN 38 mg/dL (7-18); BUN/Creat Ratio 5.4 RATIO (10-20); Calcium,Total 8.9 mg/dL (8.5-10.1); Chloride 101 mmol/L (98-107); EST Glomerular Filtration Rate 10 mL/min (>60); Est Glom Filt Rate - Afr Amer 12 mL/min (>60); Estimated Creatinine Clearance 20.47 ml/min; Glucose 113 mg/dL (74-106); Potassium 4.7 mmol/L (3.5-5.1); Sodium Level 135 mmol/L (136-145)
[2024-04-15] MEDS: Heparin Injection (Vial) 5,000 UNIT/ML VIAL 5000 UNIT SC ×2 (05:52→13:35)
[2024-04-15 06:54] LABS: Bedside Glucose 118 mg/dL (74-106)
[2024-04-15] MEDS: Pantoprazole Sodium 40 MG in 0.9% Normal Saline (100mL MB+) 100 ML 330 MG IV (09:13)
[2024-04-15] MEDS: DAKIN'S SOL HALF STRENGTH (=0.25%) TOPICAL (09:47)
[2024-04-15] MEDS: 0.9% Saline Lock 10 ML Syringe IV (11:38)
[2024-04-15 11:48] LABS: Bedside Glucose 108 mg/dL (74-106)
--- NOTE | 2024-04-15 12:25 | PN.RENAL_ITS ---
Subjective Subjective no new events Objective Data Objective Data Vital Signs: Vital Signs Temp Pulse Resp BP Pulse Ox O2 Del Method O2 Flow Rate 97.2 F L 94 17 160/99 H 100 Nasal Cannula 2 04/15/24 08:00 04/15/24 11:33 04/15/24 08:00 04/15/24 11:33 04/15/24 08:00 04/15/24 08:00 04/15/24 08:00 FiO2 24 04/15/24 04:51 Oxygen Flow Rate (L/min) 2 Oxygen Delivery Method Nasal Cannula Weight: 131.6 kg Body Mass Index (BMI) 39.2 Intake & Output: Intake and Output for Last 24 Hours 04/13/24 04/14/24 04/15/24 23:59 23:59 23:59 Intake Total 1305.75 / 1305.75 283.75 / 283.75 230 / 230 Output Total 2550 / 2550 2590 / 2605 35 / 35 Balance -1244.25 / -1244.25 -2306.25 / -2321.25 195 / 195 Lab / Micro Data 04/15/24 04:09 04/15/24 04:09 Labs: Laboratory Results - last 24 hr 04/14/24 14:57: POC Glucose 118 H 04/14/24 15:49: POC Glucose 113 H 04/15/24 00:18: POC Glucose 106 04/15/24 04:09: WBC 7.4, RBC 3.38 L, Hgb 9.4 L, Hct 31.4 L, MCV 92.9, MCH 27.8, MCHC 29.9 L, RDW Std Deviation 62.2 H, RDW Coeff of Shanta 18.6 H, Plt Count 89 L, MPV 10.8, Immature Gran % (Auto) 0.300, Neut % (Auto) 61.4, Lymph % (Auto) 21.9, [place] % (Auto) 10.4 H, Eos % (Auto) 5.1 H, Baso % (Auto) 0.9, Absolute Neuts (auto) 4.5, Absolute Lymphs (auto) 1.62, Nucleated RBC % 0, Sodium 135 L, Potassium 4.7, Chloride 101, Carbon Dioxide 26.0, Anion Gap 8, BUN 38 H, C reatinine 7.00 H, Estim Creat Clear Calc 20.47, Est GFR (MDRD) Af Amer 12 L, Est GFR (MDRD) Non-Af 10 L, BUN/Creatinine Ratio 5.4 L, Glucose 113 H, Calcium 8.9 04/15/24 06:04: POC Glucose 118 H 04/15/24 11:29: POC Glucose 108 H Micro: Microbiology 04/13/24 09:47 Urine Catheter - Hurst Urine Culture - Preliminary ESBL Escherichia coli Pseudomonas aeruginosa 04/13/24 08:13 Mucosa - Nose Respiratory Panel (PCR) - Final Physical Exam Narrative somewhat sleepy pallor s1s2 b/l air entry soft no edema Assessment & Plan Assessment/Plan (1) 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 disease: PLAN: on hemodialysis 4 times a week. received HD yesterday HD tomorrow
--- NOTE | 2024-04-15 13:48 | PCM.PN.ID ---
Physical Exam Narrative Feeling better, no fever, no abd pain Const alert and no apparent distress Resp normal air movement and clear to auscultation bilaterally Cardio regular rate and regular rhythm GI soft to palpation, non-tender and non-distended Skin Skin Narrative: no new rash ID ID: Route of nutrition/ use of supplements: [] Nutritional Intake: [] IV Site: [] Hurst Catheter: [] Assessment & Plan Assessment/Plan (1) Toxic metabolic encephalopathy: (2) Hyperkalemia: (3) 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 disease: (4) Osteomyelitis of pelvic region: PLAN: Wound cx with AcB, PsA, esbl ecoli. Discharged on iv tobra 1.5mg/kg per dose (150mg based on 100kg IBW) given with HD sessions [id number] at [facility] and po augmentin along with it for planned 6 week course, stop date 05/06/24. Left to [facility] on 03/27 after 1st dose of tobra, came back again 04/13 after missed HD with hyperkalemia and encephalopathy. Ucx with esbl ecoli and PsA, but sensitive to tobra; likely represents colonization. Will cont tobra, change lupe to po augmentin. Updated discharge med rec. Will follow,d/w patient case manager
--- NOTE | 2024-04-15 16:15 | PCM.PN.HOSP ---
Reason for Visit Reason for Visit: Altered mental status Subjective Subjective No issues overnight. Patient has been weaned off BiPAP and is mentating much better. Speech therapy has evaluated the patient and he is now on an oral diet so we should be able to restart his home medications. Objective Data Objective Data Vital Signs: Vital Signs Temp Pulse Resp BP Pulse Ox O2 Del Method O2 Flow Rate 98.1 F 93 16 162/85 H 100 Nasal Cannula 2 04/15/24 14:00 04/15/24 14:00 04/15/24 14:00 04/15/24 14:00 04/15/24 14:00 04/15/24 14:00 04/15/24 14:00 FiO2 24 04/15/24 04:51 Oxygen Flow Rate (L/min) 2 Oxygen Delivery Method Nasal Cannula Weight: 131.6 kg Body Mass Index (BMI) 39.2 Intake & Output: Intake and Output for Last 24 Hours 04/13/24 04/14/24 04/15/24 23:59 23:59 23:59 Intake Total 1305.75 / 1305.75 283.75 / 283.75 230 / 230 Output Total 2550 / 2550 2590 / 2605 35 / 35 Balance -1244.25 / -1244.25 -2306.25 / -2321.25 195 / 195 Lab / Micro Data 04/15/24 04:09 04/15/24 04:09 Labs: Laboratory Results - last 24 hr 04/15/24 00:18: POC Glucose 106 04/15/24 04:09: WBC 7.4, RBC 3.38 L, Hgb 9.4 L, Hct 31.4 L, MCV 92.9, MCH 27.8, MCHC 29.9 L, RDW Std Deviation 62.2 H, RDW Coeff of Shanta 18.6 H, Plt Count 89 L, MPV 10.8, Immature Gran % (Auto) 0.300, Neut % (Auto) 61.4, Lymph % (Auto) 21.9, [place] % (Auto) 10.4 H, Eos % (Auto) 5.1 H, Baso % (Auto) 0.9, Absolute Neuts (auto) 4.5, Absolute Lymphs (auto) 1.62, Nucleated RBC % 0, Sodium 135 L, Potassium 4.7, Chloride 101, Carbon Dioxide 26.0, Anion Gap 8, BUN 38 H, Creatinine 7.00 H, Estim Creat Clear Calc 20.47, Est GFR (MDRD) Af Amer 12 L, Est GFR (MDRD) Non-Af 10 L, BUN/Creatinine Ratio 5.4 L, Glucose 113 H, Calcium 8.9 04/15/24 06:04: POC Glucose 118 H 04/15/24 11:29: POC Glucose 108 H Micro: Microbiology 04/13/24 09:47 Urine Catheter - Hurst Urine Culture - Preliminary ESBL Escherichia coli Pseudomonas aeruginosa 04/13/24 08:13 Mucosa - Nose Respiratory Panel (PCR) - Final Physical Exam Const alert, no apparent distress and well nourished; Negative for oriented x3, average body habitus or healthy appearing Constitutional Narrative: Middle-aged, -German male, obese, lying in bed, much more awake and oriented to self and place, but confused on time still, indicates he would like to eat HEENT normocephalic, head/scalp atraumatic and moist oral mucous membranes HEENT Narrative: Mallampati 3, no thrush Resp normal respiratory effort, no retractions, no use of accessory muscles and No clear to auscultation bilaterally Auscultation: Negative for rales, rhonchi or wheezes Cardio regular rate, regular rhythm, S1 normal heart sound, S2 normal heart sound, no murmurs, no rub, no gallops and no clicks GI normal to inspection, nondistended, normoactive bowel sounds, soft to palpation and non-tender GI Narrative: Large protuberant abdomen Extremity no clubbing, cyanosis or edema Extremity Narrative: Right lower extremity with no significant noted abnormalities, patient is a left lower extremity amputee Neuro oriented x3, moves all extremities and no focal motor deficits Neuro Narrative: Moves upper extremities symmetrically, much more awake, able to interact and follow commands consistently, response time is much improved Sensorium / Orientation: awake, alert, oriented to person and oriented to place; Negative for oriented to time Speech: speech normal Psych affect normal Psych Narrative: Answers appropriately Assessment & Plan Assessment/Plan (1) Toxic metabolic encephalopathy: (2) Hypertensive emergency: (3) Open wound of left buttock without complication: QUALIFIERS: Encounter type: initial encounter Qualified Code(s): S31.829A - Unspecified open wound of left buttock, initial encounter (4) Hyperkalemia: PLAN: Plan Toxic/metabolic encephalopathy/altered mental status -Etiology is unclear however may be related to decreased clearance of gabapentin and narcotics -Will discontinue narcotics at discharge and decrease gabapentin to 100 mg twice daily -MRI did not show any etiology that would explain this -Speech therapy has evaluated and okayed to start p.o. diet -Urine culture consistent with contamination blood cultures are negative -Continue to monitor Recent Staph capitis bacteremia/polymicrobial decubitus wound infection (Pseudomonas/Acinetobacter/ESBL E. coli) -Cultures positive x 2 from 03/22/2024 -Has been on tobramycin and Augmentin with recommended stop dates at 05/06/2024 -ID has transitioned back to Augmentin and tobramycin -ID is following-appreciate input -Wound care is following and pictures reviewed Bilateral retinal detachments -These are chronic and he has been evaluated both by ophthalmology and retinal specialists -Discussed case with on-call cured meat packing supervisor Dr. Elena Schneider ophthalmology -Will ensure outpatient follow-up after discharge Otitis media and mastoiditis -Continue antibiotics as ordered Hyperkalemia -Resolved Hypertensive emergency/essential hypertension -Hypertensive emergency has resolved -Restart home oral medication -Discontinue IV medication -Monitor End-stage renal disease-HD dependent/hematuria/history of renal transplant -Per documentation patient been having ongoing hematuria and has suprapubic cath--> is stable -Nephrology following -Restart tacrolimus -HD per nephrology GERD -Discontinue IV Protonix and start home p.o. Protonix Constipation -Restart home as needed stool softeners Chronic anemia -Secondary to chronic renal disease -Counts remain stable Thrombocytopenia -This is new -Suspect related to antibiotics -Will monitor for stability DM-2 -Now that p.o. diet has been instituted transition to ACHS -Monitor blood sugars for ongoing needs Status post left BKA -Continue supportive care Hyperlipidemia -Continue home statin History of DVT -Restart home apixaban Suspected VITO -Patient is noncompliant -Will utilize BiPAP while here -Recommend outpatient sleep study Depression/anxiety/insomnia -Restart home Lexapro -Restart home melatonin Obesity -BMI is 39.3 -Recommend weight loss -Complicates treatment, prognosis, outcomes DVT prophylaxis -Restart home apixaban CODE STATUS -Full code Charges/Coding Visit Charges Inpatient E&M: 44164 Subs Hosp L3
--- NOTE | 2024-04-15 16:21 | CASEMGMT ---
LIZZIE sent a copy of the IV antibiotic script for patient to [facility] via [facility]. SW also let them know patient will likely return tomorrow. Naina HERRERA
[2024-04-15] MEDS: SEVELAMER CARBONATE 800 MG TABLET 2400 MG PO (17:37)
[2024-04-15 18:41] LABS: Bedside Glucose 109 mg/dL (74-106)
[2024-04-15] MEDS: hydrALAZINE 50 MG Tablet PO (22:04)
[2024-04-15] MEDS: Amox/Clavulanate 500 MG Tablet PO (22:04)
[2024-04-15] MEDS: Carvedilol 12.5 MG Tablet PO (22:05)
[2024-04-15] MEDS: Escitalopram Oxalate 10 MG Tablet 15 MG PO (22:05)
[2024-04-15] MEDS: APIXABAN 5 MG TABLET PO (22:05)
[2024-04-15] MEDS: Clotrimazole/Betamethasone 1 Tube 1 APPLIC TOPICAL (22:06)
[2024-04-15] MEDS: Ascorbic Acid 500 MG Tablet PO (22:06)
[2024-04-15] MEDS: Gabapentin 100 MG Capsule PO (22:06)
[2024-04-15] MEDS: Tacrolimus Anhydrous 1 MG Capsule 2 MG PO (22:06)
[2024-04-15] MEDS: Atorvastatin Calcium 40 MG Tablet PO (22:06)
[2024-04-15] MEDS: Folic Acid/Vitamin B Comp W-C 1 Capsule 1 CAP PO (22:06)
[2024-04-15 22:39] LABS: Bedside Glucose 113 mg/dL (74-106)
[2024-04-16] VITALS (16 sets, daily range): BP systolic 127–308; BP diastolic 86–110; PULSE 83–99; RESP 12–16; TEMP 35.9–36.7; O2SAT 97–100; BMI 39.2; BMI 38.8
[2024-04-16] MEDS: 0.9% Saline Lock 10 ML Syringe IV (04:08)
[2024-04-16 04:19] LABS: Absolute Lymphocyte Count 1.34 X10^3/uL (0.83-4.51); Absolute Neutrophil Count 3.7 X10^3/uL (2.0-7.7); Basophil# 0.06 X10^3/uL; Eosinophil# 0.41 X10^3/uL; Eosinophils% 6.6 % (0-5); Hematocrit 31.4 % (40-54); Hemoglobin 9.4 g/dL (13.0-16.5); Lymphocyte # 1.34 X10^3/ul (0.83-4.51); Lymphocyte % 21.5 % (19-41); Mean Corp Hgb Conc 29.9 g/dL (32-36); Mean Corpuscular Hgb 27.6 pg (27.0-32.0); Mean Corpuscular Volume 92.4 fL (80-94); Mean Platelet Vol. 10.7 fl (6.2-12.0); Monocyte% 11.3 % (0-10); NRBC Flagged by Analyzer 0 % (0-5); Neutrophil # 3.69 X10^3/uL (2.7-7.7); Neutrophil % 59.3 % (47-70); POSITIVE COUNT YES; Platelet Count 95 K/mm3 (150-450); RBC Distribution Width CV 18.3 % (11.6-14.6); RBC Distribution Width SD 61.3 fl (35.1-43.9); White Blood Count 6.2 K/mm3 (4.4-11.0)
[2024-04-16 04:28] LABS: International Normalized Ratio 1.2; Prothrombin Time (Protime)PT. 15.1 SECONDS (11.7-14.9)
[2024-04-16 04:49] LABS: ALB/GLOB Ratio 0.5 RATIO (0.9-2.4); AST(SGOT) 14 U/L (15-37); Alanine Aminotransfer ALT/SGPT 15 U/L (16-61); Albumin, Serum 2.7 g/dL (3.2-5.0); Alkaline Phosphatase 90 U/L (45-117); Anion Gap 8 (5-15); BUN 47 mg/dL (7-18); BUN/Creat Ratio 5.5 RATIO (10-20); Calcium,Total 8.8 mg/dL (8.5-10.1); Chloride 100 mmol/L (98-107); Creatinine, Serum 8.55 mg/dL (0.70-1.30); EST Glomerular Filtration Rate 8 mL/min (>60); Est Glom Filt Rate - Afr Amer 9 mL/min (>60); Estimated Creatinine Clearance 16.76 ml/min; Globulin 5.4 g/dL (2.2-4.2); Glucose 114 mg/dL (74-106); Potassium 5.1 mmol/L (3.5-5.1); Protein, Total 8.1 g/dL (6.4-8.2); Sodium Level 134 mmol/L (136-145)
[2024-04-16 06:46] LABS: Bedside Glucose 106 mg/dL (74-106)
[2024-04-16] MEDS: PureFlow B 2K Dialysis Soln 1 BAG 6 BAG PF (08:11)
[2024-04-16] MEDS: 0.9% Normal Saline 1,000 ML IV.SOLN. 1000 ML OPERA.SITE (08:11)
--- NOTE | 2024-04-16 09:43 | WOUNDNOTE ---
pt is currently on dialysis. will change dressing later today. pt may possibly discharge back to the [facility] today.
[2024-04-16] MEDS: Tacrolimus Anhydrous 1 MG Capsule 2 MG PO (11:42)
[2024-04-16] MEDS: Gabapentin 100 MG Capsule PO (11:42)
[2024-04-16] MEDS: Carvedilol 12.5 MG Tablet PO (11:43)
[2024-04-16] MEDS: Pantoprazole Sodium 40 MG Tablet PO (11:43)
[2024-04-16] MEDS: DAKIN'S SOL HALF STRENGTH (=0.25%) TOPICAL (11:46)
[2024-04-16] MEDS: SEVELAMER CARBONATE 800 MG TABLET 2400 MG PO (11:46)
[2024-04-16] MEDS: Levothyroxine 150 MCG Tablet PO (11:46)
[2024-04-16] MEDS: hydrALAZINE 50 MG Tablet PO ×2 (11:47→17:06)
[2024-04-16] MEDS: APIXABAN 5 MG TABLET PO (11:47)
--- NOTE | 2024-04-16 13:36 | PCM.TXEXTCAR ---
Diet Diet Order/Speech Therapy: 04/15/24 12:15 Diet: Renal - Protein Restricted Food consistency:: Easy to Chew Liquid Consistency:: Regular/Thin Diet Comments: 2000 calorie renal - distant supervision Routine Orders/Code Status Keep PO Greater than or Equal to (%): 89 Routine Lab Work: CBC (1 week) and BMP (1 week) Code Status: Full Code Wound(s) left buttock: Wound Type: Pressure Injury left ischium: Wound Type: Pressure Injury Dressing Change: Dakins moistened gauze Suggestions for Active Care Change Position every (hours): 2 Hours to sit in a chair: 2 Times a day to sit in chair: 3 Therapies Weight Bearing: Full weight bearing Problem/Diagnosis (1) Toxic metabolic encephalopathy: Status: Acute Code(s): G92.8 - Other toxic encephalopathy (2) Hypertensive emergency: Status: Acute Code(s): I16.1 - Hypertensive emergency (3) Open wound of left buttock without complication: Status: Acute Code(s): S31.829A - Unspecified open wound of left buttock, initial encounter (4) Hyperkalemia: Status: Acute Code(s): E87.5 - Hyperkalemia Plan Pt must wear BIPAP at night 20/02 Allergies/Procedures Done in Hospital Allergies No Known Allergies Allergy (Verified 02/18/24 04:45) Procedures: - (MRI/CT Brain/CXR/CT abd and pelvis) Type of Care/Length of Stay Estimated LOS: More Than 30 Days Type of Care Needed: Intermediate Rehab Potential: Poor Prognosis: Poor Additional Orders/Day of Discharge Day of Discharge: 04/16/24 Dietary and Speech Recommendations Dietitian Recommendations/Changes: Recommend, as tolerated, 2000 calorie control; renal general diet. Will add Kalyan BID with medpass. Will add 120ml PO Nepro TID with meals. Additional ONS as needed once PO better established with meals. Reviewed and approved by Rahat Buck, MS, RDN, LD. Follow Up Care Please Follow Up With: Anderson Melo MD When: 2-4 weeks Discharge Plan Admission Admit Date/Time: 04/13/24 18:38 Attending Provider: Love Lakhani Primary Care Provider: Vanessa Hutchins Consulting Providers: Ansley Peña; Jabari Medeiros Discharge Orders/Prescriptions Prescriptions: New tobramycin sulfate 40 mg/mL solution 100 mg IV Q24H 21 Days Qty: 21 0RF Rx Instructions: 100mg given with dialysis on Sat, , , and Sat. Stop date 05/06/24. Twice weekly bmp, cbc, tobramycin trough prior to HD, and esr. Fax to [phone]. Continued amoxicillin-pot clavulanate 500-125 mg Tablet 1 tab PO QPM Qty: 21 0RF Rx Instructions: GIVE ONE TABLET BY MOUTH IN THE EVENING FOR INFECTION. START DATE: 04/02/2024 END DATE: 05/07/2024 Discontinued tobramycin sulfate 40 mg/mL solution 100 mg IV Q24H 35 Days Qty: 87.5 0RF Patient Comments: USE 100MG INTRAVENOUSLY IN THE AFTERNOON EVERY SATURDAY, SATURDAY, SATURDAY, AND SATURDAY FOR WOUND INFECTION UNTI 05/06/2024 23:59. TO BE ADMINISTERED WITH DIALYSIS [place] (PER [facility] ORDER SUMMARY REPORT 04/13/2024) Rx Instructions: IV tobramycin, 150mg given with dialysis on Sat, , , and Sat. Stop date 05/06/24. Twice weekly bmp, cbc, tobramycin trough prior to HD, and esr. Fax to [phone]. No Action atorvastatin 40 mg Tablet 40 mg PO QHS acetaminophen 325 mg Tablet 650 mg PO Q4H PRN (Reason: PAIN/FEVER) carvedilol 12.5 mg Tablet 12.5 mg PO BID ascorbic acid (vitamin C) 500 mg Tablet 500 mg PO QHS bisacodyl 10 mg Suppository 10 mg NJ DAILY PRN (Reason: CONSTIPATION ) dextrose [Glucose Gel] 40 % Gel 15 g PO Q15M PRN (Reason: HYPGLYCEMIA ) Rx Instructions: until symptoms of low blood sugar are controlled Eliquis 5 mg Tablet 5 mg PO BID pantoprazole 40 mg Tablet,Delayed Release (Dr/Ec) 40 mg PO DAILY clotrimazole-betamethasone 1-0.05 % Cream 1 applic TOPICAL QHS Rx Instructions: APPLY ONE APPLICATION TOPICALLY TO FACE AT BEDTIME FOR RASH tacrolimus [Prograf] 1 mg Capsule 2 mg PO Q12H ondansetron HCl 4 mg Tablet 4 mg PO Q8H PRN (Reason: NAUSEA/VOMITING ) Senna Plus 8.6-50 mg Capsule 1 tab-cap PO BID gabapentin 100 mg capsule 200 mg PO BID sevelamer HCl 800 mg tablet 2,400 mg PO TIDCM Rx Instructions: must administer with a meal/food levothyroxine 150 mcg tablet 150 mcg PO DAILY@0600 acetaminophen 650 mg suppository 650 mg NJ Q4H PRN (Reason: PAIN/FEVER) magnesium hydroxide [Milk of Magnesia] 400 mg/5 mL suspension 30 ml PO DAILY PRN (Reason: CONSTIPATION ) Benadryl Extra Strength 2-0.1 % cream 1 applic topical Q6H PRN (Reason: ITCHING ) ciclopirox 8 % solution 1 applic topical QHS Rx Instructions: APPLY ONE APPLICATION TOPICALLY TO RIGHT THUMB AT BEDTIME FOR NAIL FUNGUS escitalopram oxalate [Lexapro] 10 mg tablet 15 mg PO QHS B complex-vitamin C-folic acid 0.8 mg tablet 1 tab PO QPM insulin lispro 100 unit/mL insulin pen See Protocol subcut TIDCM Protocol: 6. Sliding Scale Insulin Custom Condition: 180-200 mg/dl range Dose/Route: 2 Number of Units Condition: 201-250 Dose/Route: 3 Condition: 251-300 Dose/Route: 4 Condition: 301-350 Dose/Route: 5 Condition: 351-400 Dose/Route: 6 Condition: 401-450 Dose/Route: 7 Condition: >451 Dose/Route: call MD Protocol Text: Custom Sliding Scale guaifenesin [Adult Tussin Chest Congestion] 100 mg/5 mL liquid 200 mg PO Q4H PRN (Reason: COUGH/CONGESTION ) aluminum-magnesium hydroxide 200-200 mg/5 mL suspension 30 ml PO Q4H PRN (Reason: GI DISTRESS ) glucagon HCl [Glucagon (HCl) Emergency Kit] 1 mg recon soln 1 mg IM Q20M PRN (Reason: HYPOGLYCEMIA ) oxycodone 10 mg tablet 10 mg PO Q8H PRN (Reason: PAIN ) polyethylene glycol 3350 [Miralax] 17 gram/dose powder 17 g PO Q24H PRN (Reason: CONSTIPATION ) melatonin 3 mg Tablet 3 mg PO Q24H PRN (Reason: INSOMNIA ) hydralazine 50 mg Tablet 50 mg PO TID Referrals / Follow Up: Vanessa Hutchins MD [Primary Care Provider] - (3) Open wound of left buttock without complication Qualifiers: Encounter type: initial encounter Qualified Code(s): S31.829A - Unspecified open wound of left buttock, initial encounter
--- NOTE | 2024-04-16 13:45 | DS.PCM_ITS ---
Providers Date of Admission: 04/13/24 Date of Discharge: 04/16/24 Primary Care Physician: Dr. Vanessa Hutchins MD Consultations 04/13/24 12:51 Consult: Nephrology Routine Consulting Provider: Ansley Peña Reason for Consult: Missed HD EMERGENT Consult: No Notified: Yes Date Notified: 04/13/24 Time Notified: 13:42 Method of Notification: Text 04/13/24 14:43 Consult: Infectious Disease Routine Consulting Provider: China Medeiros Reason for Consult: polymicrobial wound infxn EMERGENT Consult: No MD Notified: Yes Date Notified: 04/13/24 Time Notified: 15:06 Method of Notification: Text 04/13/24 15:58 Consult: Onc/Wound/fireman Routine Comment: 04/13/24 18:32 Consult: Onc/Wound/fireman Routine Comment: Reason For Visit: HYPERKALEMIA/MISSED HD/HTN Diagnosis Discharge Diagnosis (1) Toxic metabolic encephalopathy: Status: Acute Code(s): G92.8 - Other toxic encephalopathy (2) Hypertensive emergency: Status: Acute Code(s): I16.1 - Hypertensive emergency (3) Open wound of left buttock without complication: Status: Acute Code(s): S31.829A - Unspecified open wound of left buttock, initial encounter Qualifiers: Encounter type: initial encounter Qualified Code(s): S31.829A - Unspecified open wound of left buttock, initial encounter (4) Hyperkalemia: Status: Acute Code(s): E87.5 - Hyperkalemia Medications at Discharge Home Medications acetaminophen 325 mg tablet 650 mg PO Q4H PRN PAIN/FEVER 01/02/23 apixaban 5 mg tablet (Eliquis) 5 mg PO BID AFIB 01/02/23 ascorbic acid (vitamin C) 500 mg tablet 500 mg PO QHS SUPPLEMENT 01/02/23 atorvastatin 40 mg tablet 40 mg PO QHS CHOLESTEROL 01/02/23 bisacodyl 10 mg rectal suppository 10 mg ID DAILY PRN CONSTIPATION 01/02/23 carvedilol 12.5 mg tablet 12.5 mg PO BID HYPERTENSION 01/02/23 clotrimazole-betamethasone 1 %-0.05 % topical cream 1 applic topical QHS FACE RASH 01/02/23 dextrose 40 % oral gel (Glucose Gel) 15 g PO Q15M PRN HYPGLYCEMIA 01/02/23 ondansetron HCl 4 mg tablet 4 mg PO Q8H PRN NAUSEA/VOMITING 01/02/23 pantoprazole 40 mg tablet,delayed release 40 mg PO DAILY ACID REFLUX 01/02/23 sennosides 8.6 mg-docusate sodium 50 mg capsule (Senna Plus) 1 tab-cap PO BID CONSTIPATION 01/02/23 tacrolimus 1 mg capsule, immediate-release (Prograf) 2 mg PO Q12H IMMUNOSUPPRESIVE 01/02/23 sevelamer HCl 800 mg tablet 2,400 mg PO TIDCM ESRD 04/21/23 levothyroxine 150 mcg tablet 150 mcg PO DAILY@0600 THYROID 07/16/23 acetaminophen 650 mg rectal suppository 650 mg ID Q4H PRN PAIN/FEVER 08/06/23 magnesium hydroxide 400 mg/5 mL oral suspension (Milk of Magnesia) 30 ml PO DAILY PRN CONSTIPATION 08/06/23 ciclopirox 8 % topical solution 1 applic topical QHS NAIL FUNGUS 11/17/23 diphenhydramine-zinc acetate 2 %-0.1 % topical cream (Benadryl Extra Strength) 1 applic topical Q6H PRN ITCHING 12/06/23 escitalopram oxalate 10 mg tablet (Lexapro) 15 mg PO QHS DEPRESSION 12/30/23 insulin lispro 100 unit/mL subcutaneous pen See Protocol subcut TIDCM 03/22/24 vitamin B complex-vitamin C-folic acid 0.8 mg tablet 1 tab PO QPM HEALTH MAINTENANCE 03/22/24 guaifenesin 100 mg/5 mL oral liquid (Adult Tussin Chest Congestion) 200 mg PO Q4H PRN COUGH/CONGESTION 03/29/24 aluminum-magnesium hydroxide 200 mg-200 mg/5 mL oral suspension 30 ml PO Q4H PRN GI DISTRESS 04/13/24 glucagon HCl 1 mg solution for injection (Glucagon (HCl) Emergency Kit) 1 mg IM Q20M PRN HYPOGLYCEMIA 04/13/24 hydralazine 50 mg tablet 50 mg PO TID BLOOD PRESSURE 04/13/24 melatonin 3 mg tablet 3 mg PO Q24H PRN INSOMNIA 04/13/24 polyethylene glycol 3350 17 gram/dose oral powder (Miralax) 17 g PO Q24H PRN CONSTIPATION 04/13/24 amoxicillin 500 mg-potassium clavulanate 125 mg tablet 1 tab PO QPM INFECTION #21 tabs 04/15/24 tobramycin sulfate 40 mg/mL injection solution 100 mg (2.5 mL) IV Q24H 21 days #21 vials 04/15/24 gabapentin 100 mg capsule 100 mg PO BID #0 caps 04/16/24 Hospital Course Procedures EKG and - (CT brain/CT abdomen/pelvis/chest x-ray/MRI brain) Summary of Care Provided Minutes Spent on Discharge: 41 Hospital Course: CHINA GUILLEN, is a 38 M who presented to the emergency department at [facility] on 04/13/2020 for due to altered mental status. The patient has a history of end-stage renal disease and currently resides at [facility] where he receives dialysis. He typically gets dialyzed on MTWF and has not missed any dialysis sessions until today. He went for dialysis at [facility] and was noted to be somewhat somnolent. Blood pressure was assessed and he was reported to be hypotensive however upon arrival and since admission he has been hypertensive. Елена Coma Scale at the time of admission was 12 as assessed by the emergency department. He recently had a lengthy stay here at which she was discharged on 04/01/2025 on tobramycin and Augmentin to complete antibiotic courses for decubitus ulcer and bacteremia. He is not known to be febrile or have any unstable vitals except reported hypotension at [facility] dialysis prior to arrival. Vital signs on presentation the emergency department here showed a temperature of 97.2, heart rate 96, respiratory 14, blood pressure was 163/119 and pulse ox was 99% on 3 L nasal cannula. He was weaned to room air with sats at 100%. Blood pressures have fluctuated from anywhere in the 240s over 160s to 160s over 110. CBC is overtly unremarkable with a normal white count. He has a chronic stable hemoglobin at 10.6 and a new thrombocytopenia with a platelet count of 114,000. Coags are abnormal however he is on Eliquis and this is to be expected. Ammonia level was normal. ABG showed pH of 7.40 with a pCO2 of 43.7 and a pO2 of 76 on room air. A repeat was obtained later due to mental status but was stable when compared to previous. His chemistry panel showed hyponatremia which is chronic and hyperkalemia which appears to be acute with a potassium of 6.0. Bicarb appears to be stable when compared to previous at 29. BUN and serum creatinine are elevated as to be expected with chronic dialysis. Glucose was 188. Lactic acid was 1.2. LFTs are normal. Lipase was normal at 44. Troponin was [address] of the brain showed some sinusitis but was otherwise unremarkable. Sinusitis appears to be chronic. CT of the abdomen pelvis shows suprapubic catheter in the urinary bladder with diffuse thickening of the bladder wall, solitary gallstone, transplanted kidney in the right hemipelvis and persistent ulceration overlying the left ischial tuberosity with findings suggestive of chronic osteomyelitis and scattered lucencies in the right iliac bone. He was admitted to the telemetry floor and placed on dialysis. He tolerated dialysis well. He was also placed on continuous BiPAP due to Alex- Orellana respirations that were present on admission. He was not found to be hypercapnic or hypoxic. He should be on BiPAP with sleep and this was ordered at discharge at 16/8. Slowly with dialysis and cessation of his gabapentin and oxycodone his mental status did improve. We did obtain an MRI of his brain. This showed bilateral retinal detachments which are chronic. 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 He has seen a retinal specialist in [facility] as well. They will see in the outpatient setting after discharge. MRI also showed chronic sinusitis and inflammation of the right middle ear and mastoid area. ID was consulted and cultures were obtained on admission. His urine culture was consistent with colonization as compared to previous culture. He will remain on tobramycin and Augmentin per previous recommendations. There was initially some question whether or not his dialysis fistula was working appropriately and they were concerned of clearance issues however he did clear and Dr. Peña feels that there is no acute issues that need to be addressed while he is hospitalized and he can go back to [facility] for ongoing care. I do think we should discontinue his narcotics and avoid narcotic use is much as possible as this may be contributing to his altered mental status. We also decreased his gabapentin dosing. He was seen by speech therapy after his mental status improved and they recommended a renal diet its protein restricted with distant supervision as he did overwhelmingly well with speech therapy. He was able to be discharged back to [facility] in stable condition on 04/16/2024. Stop date on antibiotics have not changed from previous and is 05/06/2024. Patient will need repeat lab with CBC and BMP in 1 week. Discharge diagnoses: Toxic/metabolic encephalopathy/altered mental status-resolved Recent Staph capitis bacteremia Polymicrobial decubitus wound infection (Pseudomonas/Acinetobacter/ESBL E. coli) Bilateral retinal detachments-chronic Otitis media Hyperkalemia-resolved Hypertensive emergency-resolved Essential hypertension End-stage renal disease-HD dependent Chronic hematuria History of renal transplant GERD Constipation Chronic anemia Thrombocytopenia DM-2 Status post left BKA Hyperlipidemia History of DVT VITO Depression Anxiety Insomnia Obesity Physical Exam Const alert, oriented x3, no apparent distress and well nourished; Negative for average body habitus or healthy appearing Constitutional Narrative: Middle-aged, -[place] male, obese, lying in bed, awake, interacts appropriately, nursing at bedside, answers all questions General Appearance: cooperative, comfortable, well kempt and well developed Orientation / Consciousness: awake, oriented to person, oriented to place and oriented to time Nutritional Appearance: morbidly obese HEENT normocephalic, head/scalp atraumatic and moist oral mucous membranes Eyes conjunctivae normal Eyes Narrative: No scleral icterus Neck no lymphadenopathy and supple Neck Narrative: Trachea is midline, no thyroid enlargement Resp normal respiratory effort, no retractions, no use of accessory muscles and clear to auscultation bilaterally Auscultation: Negative for rales, rhonchi or wheezes Cardio regular rate, regular rhythm, S1 normal heart sound, S2 normal heart sound, no murmurs, no rub, no gallops and no clicks GI normal to inspection, nondistended, normoactive bowel sounds, soft to palpation and non-tender GI Narrative: Large protuberant abdomen Extremity no clubbing, cyanosis or edema Extremity Narrative: Right lower extremity with no significant noted abnormalities, patient is a left lower extremity amputee Skin No no rashes or lesions noted, No no wounds, skin turgor normal, no jaundice, no petechiae and no mottling Skin Narrative: Pictures from wound care reviewed, skin is dry Neuro oriented x3 and moves all extremities Neuro Narrative: Moves upper extremities symmetrically, much more awake, able to interact and follow commands consistently, response time is much improved Sensorium / Orientation: awake, alert, oriented to person, oriented to place and oriented to time Speech: speech normal Psych affect normal Psych Narrative: Answers appropriately Weight / BMI Weight Weight: 130 kg Body Mass Index (BMI) 38.8 ABG / Lab / Microbiology Data 04/16/24 04:00 04/16/24 04:00 Laboratory: Laboratory Results - last 24 hr 04/15/24 18:24: POC Glucose 109 H 04/15/24 22:01: POC Glucose 113 H 04/16/24 04:00: WBC 6.2, RBC 3.40 L, Hgb 9.4 L, Hct 31.4 L, MCV 92.4, MCH 27.6, MCHC 29.9 L, RDW Std Deviation 61.3 H, RDW Coeff of Shanta 18.3 H, Plt Count 95 L, MPV 10.7, Immature Gran % (Auto) 0.300, Neut % (Auto) 59.3, Lymph % (Auto) 21.5, [place] % (Auto) 11.3 H, Eos % (Auto) 6.6 H, Baso % (Auto) 1.0, Absolute Neuts (auto) 3.7, Absolute Lymphs (auto) 1.34, Nucleated RBC % 0, PT 15.1 H, INR 1.2, Sodium 134 L, Potassium 5.1, Chloride 100, Carbon Dioxide 26.0, Anion Gap 8, BUN 47 H, Creatinine 8.55 H*, Estim Creat Clear Calc 16.76, Est GFR (MDRD) Af Amer 9 L, Est GFR (MDRD) Non-Af 8 L, BUN/Creatinine Ratio 5.5 L, Glucose 114 H, Calcium 8.8, Total Bilirubin 0.50, AST 14 L, ALT 15 L, Alkaline Phosphatase 90, Total Protein 8.1, Albumin 2.7 L, Globulin 5.4 H, Albumin/Globulin Ratio 0.5 L 04/16/24 06:23: POC Glucose 106 Microbiology: Microbiology 04/13/24 09:47 Urine Catheter - [place] Urine Culture - Final ESBL Escherichia coli Pseudomonas aeruginosa 04/13/24 08:11 Blood Culture (Wb) - Anticubital Right Blood Culture - Preliminary No growth in 48 hours. 04/13/24 08:13 Mucosa - Nose Respiratory Panel (PCR) - Final D/C Instructions Please Follow Up With: Anderson Melo MD Meaningful Use Info Meaningful Use Meaningful Use Diagnoses (Choose all that apply): None applicable Ischemic Stroke Statin Dosing Therapy Reference: STATIN DOSE THERAPY REFERENCE: * Patients > 75 years receive moderate or high dose statin therapy. * Patients 75 years or YOUNGER should receive HIGH intensity statin dose unless contraindicated. You will be required to document reason for non-treatment if statin daily dose does not meet guidelines. HIGH DOSE STATIN THERAPY DAILY Atorvastatin > than or = to 40 mg Rosuvastatin > than or = to 20 mg Amlodipine + Atorvastatin > than or = to 2.5/40 mg Ezetimibe + Simvastatin 10/80 mg Simvastatin 80mg Discharge Plan Admission Admit Date/Time: 04/13/24 18:38 Primary Reason for Your Visit: Altered mental status Attending Provider: Love Lakhani Primary Care Provider: Vanessa Hutchins Consulting Providers: Ansley Peña; China Medeiros Discharge Orders/Prescriptions Prescriptions: New tobramycin sulfate 40 mg/mL solution 100 mg IV Q24H 21 Days Qty: 21 0RF Rx Instructions: 100mg given with dialysis on Mon, , , and Sat. Stop date 05/06/24. Twice weekly bmp, cbc, tobramycin trough prior to HD, and esr. Fax to [phone]. gabapentin 100 mg Capsule 100 mg PO BID Qty: 0 0RF Continued atorvastatin 40 mg Tablet 40 mg PO QHS acetaminophen 325 mg Tablet 650 mg PO Q4H PRN (Reason: PAIN/FEVER) carvedilol 12.5 mg Tablet 12.5 mg PO BID ascorbic acid (vitamin C) 500 mg Tablet 500 mg PO QHS bisacodyl 10 mg Suppository 10 mg ID DAILY PRN (Reason: CONSTIPATION ) dextrose [Glucose Gel] 40 % Gel 15 g PO Q15M PRN (Reason: HYPGLYCEMIA ) Rx Instructions: until symptoms of low blood sugar are controlled Eliquis 5 mg Tablet 5 mg PO BID pantoprazole 40 mg Tablet,Delayed Release (Dr/Ec) 40 mg PO DAILY clotrimazole-betamethasone 1-0.05 % Cream 1 applic TOPICAL QHS Rx Instructions: APPLY ONE APPLICATION TOPICALLY TO FACE AT BEDTIME FOR RASH tacrolimus [Prograf] 1 mg Capsule 2 mg PO Q12H ondansetron HCl 4 mg Tablet 4 mg PO Q8H PRN (Reason: NAUSEA/VOMITING ) Senna Plus 8.6-50 mg Capsule 1 tab-cap PO BID sevelamer HCl 800 mg tablet 2,400 mg PO TIDCM Rx Instructions: must administer with a meal/food levothyroxine 150 mcg tablet 150 mcg PO DAILY@0600 acetaminophen 650 mg suppository 650 mg ID Q4H PRN (Reason: PAIN/FEVER) magnesium hydroxide [Milk of Magnesia] 400 mg/5 mL suspension 30 ml PO DAILY PRN (Reason: CONSTIPATION ) Benadryl Extra Strength 2-0.1 % cream 1 applic topical Q6H PRN (Reason: ITCHING ) ciclopirox 8 % solution 1 applic topical QHS Rx Instructions: APPLY ONE APPLICATION TOPICALLY TO RIGHT THUMB AT BEDTIME FOR NAIL FUNGUS escitalopram oxalate [Lexapro] 10 mg tablet 15 mg PO QHS B complex-vitamin C-folic acid 0.8 mg tablet 1 tab PO QPM insulin lispro 100 unit/mL insulin pen See Protocol subcut TIDCM Protocol: 6. Sliding Scale Insulin Custom Condition: 180-200 mg/dl range Dose/Route: 2 Number of Units Condition: 201-250 Dose/Route: 3 Condition: 251-300 Dose/Route: 4 Condition: 301-350 Dose/Route: 5 Condition: 351-400 Dose/Route: 6 Condition: 401-450 Dose/Route: 7 Condition: >451 Dose/Route: call MD Protocol Text: Custom Sliding Scale guaifenesin [Adult Tussin Chest Congestion] 100 mg/5 mL liquid 200 mg PO Q4H PRN (Reason: COUGH/CONGESTION ) aluminum-magnesium hydroxide 200-200 mg/5 mL suspension 30 ml PO Q4H PRN (Reason: GI DISTRESS ) glucagon HCl [Glucagon (HCl) Emergency Kit] 1 mg recon soln 1 mg IM Q20M PRN (Reason: HYPOGLYCEMIA ) polyethylene glycol 3350 [Miralax] 17 gram/dose powder 17 g PO Q24H PRN (Reason: CONSTIPATION ) melatonin 3 mg Tablet 3 mg PO Q24H PRN (Reason: INSOMNIA ) hydralazine 50 mg Tablet 50 mg PO TID amoxicillin-pot clavulanate 500-125 mg Tablet 1 tab PO QPM Qty: 21 0RF Rx Instructions: GIVE ONE TABLET BY MOUTH IN THE EVENING FOR INFECTION. START DATE: 04/02/2024 END DATE: 05/07/2024 Discontinued gabapentin 100 mg capsule 200 mg PO BID tobramycin sulfate 40 mg/mL solution 100 mg IV Q24H 35 Days Qty: 87.5 0RF Patient Comments: USE 100MG INTRAVENOUSLY IN THE AFTERNOON EVERY SATURDAY, SATURDAY, SATURDAY, AND SATURDAY FOR WOUND INFECTION UNTI 05/06/2024 23:59. TO BE ADMINISTERED WITH DIALYSIS [place] (PER [facility] ORDER SUMMARY REPORT 04/13/2024) Rx Instructions: IV tobramycin, 150mg given with dialysis on Sat, , , and Sat. Stop date 05/06/24. Twice weekly bmp, cbc, tobramycin trough prior to HD, and esr. Fax to [phone]. oxycodone 10 mg tablet 10 mg PO Q8H PRN (Reason: PAIN ) Referrals / Follow Up: Vanessa Hutchins MD [Primary Care Provider] - Within 1 Week Disposition Disposition (needs filled in before D/C Order can be placed): NonSkilled NH/Intermed Care Charges/Coding Visit Charges Inpatient E&M: 71782 SNF Disch >30 Min
[2024-04-16] MEDS: Acetaminophen 325 MG Tablet 650 MG PO (14:13)
--- NOTE | 2024-04-16 15:14 | CASEMGMT ---
Discharge Planning Discharge orders, signed med list, and transport time sent to [facility] via [facility]. Physicians will transport patient by cot at 4p. Nursing, SW, patient, and his sister (Rudy) updated. Selina Sylvester DC Planning Asst.
[2024-04-16] MEDS: DEXTROSE 5% IV (15:31)
[2024-04-16] MEDS: TOBRAMYCIN IV (15:31)
[2024-04-16] MEDS: WATER IV (15:31)
--- NOTE | 2024-04-16 17:59 | PCM.PN.REN ---
Subjective Subjective no new events seen on HD today Objective Data Objective Data Vital Signs: Vital Signs Temp Pulse Resp BP Pulse Ox O2 Del Method O2 Flow Rate 97.1 F L 99 14 186/110 H 99 Room Air 2 04/16/24 17:00 04/16/24 17:06 04/16/24 17:00 04/16/24 17:06 04/16/24 17:00 04/16/24 17:00 04/16/24 12:59 FiO2 24 04/15/24 04:51 Oxygen Flow Rate (L/min) 2 Oxygen Delivery Method Room Air Weight: 130 kg Body Mass Index (BMI) 38.8 Intake & Output: Intake and Output for Last 24 Hours 04/14/24 04/15/24 04/16/24 23:59 23:59 23:59 Intake Total 283.75 / 283.75 350 / 450 153.75 / 153.75 Output Total 2590 / 2605 35 / 85 3650 / 3650 Balance -2306.25 / -2321.25 315 / 365 -3496.25 / -3496.25 Lab / Micro Data 04/16/24 04:00 04/16/24 04:00 Labs: Laboratory Results - last 24 hr 04/15/24 18:24: POC Glucose 109 H 04/15/24 22:01: POC Glucose 113 H 04/16/24 04:00: WBC 6.2, RBC 3.40 L, Hgb 9.4 L, Hct 31.4 L, MCV 92.4, MCH 27.6, MCHC 29.9 L, RDW Std Deviation 61.3 H, RDW Coeff of Shanta 18.3 H, Plt Count 95 L, MPV 10.7, Immature Gran % (Auto) 0.300, Neut % (Auto) 59.3, Lymph % (Auto) 21.5, [place] % (Auto) 11.3 H, Eos % (Auto) 6.6 H, Baso % (Auto) 1.0, Absolute Neuts (auto) 3.7, Absolute Lymphs (auto) 1.34, Nucleated RBC % 0, PT 15.1 H, INR 1.2, Sodium 134 L, Potassium 5.1, Chloride 100, Carbon Dioxide 26.0, Anion Gap 8, BUN 47 H, Creatinine 8.55 H*, Estim Creat Clear Calc 16.76, Est GFR (MDRD) Af Amer 9 L, Est GFR (MDRD) Non-Af 8 L, BUN/Creatinine Ratio 5.5 L, Glucose 114 H, Calcium 8.8, Total Bilirubin 0.50, AST 14 L, ALT 15 L, Alkaline Phosphatase 90, Total Protein 8.1, Albumin 2.7 L, Globulin 5.4 H, Albumin/Globulin Ratio 0.5 L 04/16/24 06:23: POC Glucose 106 Micro: Microbiology 04/13/24 09:47 Urine Catheter - [place] Urine Culture - Final ESBL Escherichia coli Pseudomonas aeruginosa 04/13/24 08:11 Blood Culture (Wb) - Anticubital Right Blood Culture - Preliminary No growth in 48 hours. 04/13/24 08:13 Mucosa - Nose Respiratory Panel (PCR) - Final Physical Exam Narrative somewhat sleepy pallor s1s2 b/l air entry soft no edema Assessment & Plan Assessment/Plan (1) 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 disease: PLAN: on hemodialysis 4 times a week. HD today see orders dw hospitalist no issues with accessing fistula can get fistulogram as outpatient
--- NOTE | 2024-04-16 18:02 | NURSING ---
report called to [facility]
[2024-04-16 22:30] LABS: Bedside Glucose 135 mg/dL (74-106)
== END 2024-04-16 17:45 | disposition intermediate care facility (04) | DRG 91 ==
LOC: ED 11:20 → PCU 14:16
PROVIDERS: Admitting Provider Internal Medicine; Emergency Provider Surgery; PCP Internal Medicine; Visit Provider Internal Medicine
DX: G92.8 Other toxic encephalopathy (principal); N18.6 End stage renal disease; L89.224 Pressure ulcer of left hip, stage 4; R78.81 Bacteremia; G82.20 Paraplegia, unspecified; E87.1 Hypo-osmolality and hyponatremia; I12.0 Hypertensive chronic kidney disease with stage 5 chronic kidney disease or end stage renal disease; M86.8X8 Other osteomyelitis, other site; I16.1 Hypertensive emergency; H33.23 Serous retinal detachment, bilateral; Z94.0 Kidney transplant status; Z16.12 Extended spectrum beta lactamase (ESBL) resistance; D69.6 Thrombocytopenia, unspecified; D63.1 Anemia in chronic kidney disease; E11.22 Type 2 diabetes mellitus with diabetic chronic kidney disease; F32.A Depression, unspecified; E66.9 Obesity, unspecified; Z89.512 Acquired absence of left leg below knee; Z93.3 Colostomy status; L89.159 Pressure ulcer of sacral region, unspecified stage; E87.5 Hyperkalemia; E11.65 Type 2 diabetes mellitus with hyperglycemia; K21.9 Gastro-esophageal reflux disease without esophagitis; E78.5 Hyperlipidemia, unspecified; Z79.4 Long term (current) use of insulin; Z99.2 Dependence on renal dialysis; G47.33 Obstructive sleep apnea (adult) (pediatric); H66.91 Otitis media, unspecified, right ear; F41.9 Anxiety disorder, unspecified; K59.00 Constipation, unspecified; J32.9 Chronic sinusitis, unspecified; Z91.158 Patient's noncompliance with renal dialysis for other reason; H70.91 Unspecified mastoiditis, right ear; T40.605A Adverse effect of unspecified narcotics, initial encounter; T42.6X5A Adverse effect of other antiepileptic and sedative-hypnotic drugs, initial encounter; H70.90 Unspecified mastoiditis, unspecified ear; R31.9 Hematuria, unspecified; B96.5 Pseudomonas (aeruginosa) (mallei) (pseudomallei) as the cause of diseases classified elsewhere; B96.20 Unspecified Escherichia coli [E. coli] as the cause of diseases classified elsewhere; G47.00 Insomnia, unspecified; Z68.39 Body mass index [BMI] 39.0-39.9, adult; Z79.2 Long term (current) use of antibiotics; Z79.01 Long term (current) use of 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; Z79.890 Hormone replacement therapy; Z79.899 Other long term (current) drug therapy; Z86.718 Personal history of other venous thrombosis and embolism
CPT/HCPCS: 36415; 36600; 70450; 70551; 71045; 74177; 80048; 80053; 80200; 81001; 82140; 82803; 82962; 83605; 83690; 84132; 84484; 85025; 85610; 85730; 87040; 87077; 87086; 87088; 87184; 87186; 87633; 90937; 92526; 92610; 93005; 94002; 94003; 94640; 94762; 99285; J2185; J7030; J7040; Q9967; A4216; G0257; J0295; J0612

== ENCOUNTER → 2024-04-17 | Outpatient (REF) | payer MEDICARE, MEDICAID, SELFPAY ==
[2024-04-17 14:58] LABS: Hemoglobin 9.4 g/dL (13.0-16.5); Mean Corp Hgb Conc 30.3 g/dL (32-36); Mean Corpuscular Hgb 27.6 pg (27.0-32.0); Mean Corpuscular Volume 91.2 fL (80-94); Mean Platelet Vol. 11.7 fl (6.2-12.0); POSITIVE COUNT YES; Platelet Count 92 K/mm3 (150-450); RBC Distribution Width CV 17.8 % (11.6-14.6); RBC Distribution Width SD 59.6 fl (35.1-43.9); White Blood Count 6.4 K/mm3 (4.4-11.0)
== END ==
LOC: OLS.SW 07:30
PROVIDERS: PCP Internal Medicine; Visit Provider Internal Medicine
DX: N18.6 End stage renal disease (principal)
CPT/HCPCS: 85027

== ENCOUNTER 2024-04-22 10:44 | Inpatient (IN) | payer MEDICARE, MEDICAID, SELFPAY ==
[2024-04-22] VITALS (10 sets, daily range): BP systolic 172–238; BP diastolic 99–132; PULSE 91–99; RESP 15–20; TEMP 36.6–37.2; O2SAT 94–99; BMI 37.5; BMI 36.1
--- NOTE | 2024-04-22 10:54 | EDS_ITS ---
HPI History of Present Illness Chief Complaint: Confusion Detail of Chief Complaint: Reported confusion and abnormal labs Informant: patient, EMS and SNF Onset/Context/Timing Onset: - (Unknown certain with regards to the labs, confusion today.) Context: - (Unknown) Timing: - (Not present, presently) Quality: Reported confusion Location: [facility] Current Severity: Gone Maximum Severity: Unknown Worsened by: Nothing per patient Relieved by: Not applicable Associated Symptoms Associated Symptoms: Patient's only complaint is buttocks pain Narrative Narrative: Patient is a 38-year-old male on hemodialysis Saturday, and Saturday. He did not have a complete dialysis yesterday. He did have blood work prior to presentation. Blood work was compared to April 16, , and . CBC is essentially unchanged from prior. Patient's renal function reveals persistent chronic mild hyponatremia. Creatinine is elevated due to the fact that he is on hemodialysis. His creatinine this morning was 6.41 and was 7.59 yesterday. C-reactive protein was elevated yesterday. Patient's tobramycin level was elevated yesterday at 3.0. This was was to be a trough level. Patient presently denies headache, visual disturbance, cardiac or respiratory symptoms. His only complaint is his buttocks arch. Review of prior records indicates he is on Eliquis. He does have an indwelling suprapubic catheter. He is on tobramycin apparently for urinary tract infection. Prior similar symptoms: Yes Recent Illness/Hospitalization: Yes [facility] Medical History Decubitus ulcer Abscess Left ischial pressure sore Open wound of left buttock with complication Current use of group home anticoagulation Acute hyperkalemia Acute alteration in mental status Phantom limb syndrome with pain Paraplegia Metabolic encephalopathy Type 2 diabetes mellitus End-stage renal disease on hemodialysis Anticoagulant long-term use ESRD (end stage renal disease) on dialysis Hx of pulmonary embolus Anemia in chronic kidney disease, on chronic dialysis alf (current) use of 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 H/O deep venous thrombosis Osteomyelitis of pelvic region Lives in snf Anxiety Open wound Insulin dependent diabetes mellitus Uses wheelchair Injury of back Non-healing wound of amputation stump DM type 2, goal HbA1c < 7% 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, stage 4 Neurogenic bowel Chronic kidney disease with end stage renal failure on dialysis Kidney transplant failure Dependence on renal dialysis Pressure ulcer of left heel, unspecified stage Gastro-esophageal reflux disease without esophagitis Other pericardial effusion (noninflammatory) Other pulmonary embolism without acute cor pulmonale Hypertensive heart and chronic kidney disease with heart failure and stage 1 through stage 4 chronic kidney disease, or unspecified chronic kidney disease Depression Hyperlipemia Hypothyroidism Anemia in chronic kidney disease Neuromuscular dysfunction of bladder, unspecified Paraplegia, incomplete Other acute osteomyelitis, left ankle and foot End stage renal disease Home Medications ?Medication ?Instructions ?Recorded ?Last Taken ?Type acetaminophen 325 mg tablet 650 mg PO Q4H PRN PAIN/FEVER 01/02/23 04/21/23 History apixaban 5 mg tablet (Eliquis) 5 mg PO BID AFIB 01/02/23 07/16/23 History ascorbic acid (vitamin C) 500 mg 500 mg PO QHS SUPPLEMENT 01/02/23 12/08/23 History tablet atorvastatin 40 mg tablet 40 mg PO QHS CHOLESTEROL 01/02/23 12/08/23 History bisacodyl 10 mg rectal suppository 10 mg CA DAILY PRN CONSTIPATION 01/02/23 Unknown History carvedilol 12.5 mg tablet 12.5 mg PO BID HYPERTENSION 01/02/23 12/09/23 History dextrose 40 % oral gel (Glucose 15 g PO Q15M PRN HYPGLYCEMIA 01/02/23 Unknown History Gel) ondansetron HCl 4 mg tablet 4 mg PO Q8H PRN NAUSEA/VOMITING 01/02/23 Unknown History pantoprazole 40 mg tablet,delayed 40 mg PO DAILY ACID REFLUX 01/02/23 12/08/23 History release sennosides 8.6 mg-docusate sodium 1 tab-cap PO BID CONSTIPATION 01/02/23 07/16/23 History 50 mg capsule (Senna Plus) tacrolimus 1 mg capsule, 2 mg PO Q12H IMMUNOSUPPRESIVE 01/02/23 12/09/23 History immediate-release (Prograf) sevelamer HCl 800 mg tablet 2,400 mg PO TIDCM ESRD 04/21/23 07/16/23 History levothyroxine 150 mcg tablet 150 mcg PO DAILY@0600 THYROID 07/16/23 12/09/23 History acetaminophen 650 mg rectal 650 mg CA Q4H PRN PAIN/FEVER 08/06/23 Unknown History suppository magnesium hydroxide 400 mg/5 mL 30 ml PO DAILY PRN CONSTIPATION 08/06/23 Unknown History oral suspension (Milk of Magnesia) ciclopirox 8 % topical solution 1 applic topical QHS NAIL FUNGUS 11/17/23 Unknown History diphenhydramine-zinc acetate 2 1 applic topical Q6H PRN ITCHING 12/06/23 Unknown History %-0.1 % topical cream (Benadryl Extra Strength) escitalopram oxalate 10 mg tablet 15 mg PO QHS DEPRESSION 12/30/23 Unknown History (Lexapro) insulin lispro 100 unit/mL See Protocol subcut TIDCM 03/22/24 Unknown History subcutaneous pen vitamin B complex-vitamin C-folic 1 tab PO QPM HEALTH MAINTENANCE 03/22/24 Unknown History acid 0.8 mg tablet guaifenesin 100 mg/5 mL oral 200 mg PO Q4H PRN COUGH/CONGESTION 03/29/24 Unknown History liquid (Adult Tussin Chest Congestion) aluminum-magnesium hydroxide 200 30 ml PO Q4H PRN GI DISTRESS 04/13/24 Unknown History mg-200 mg/5 mL oral suspension glucagon HCl 1 mg solution for 1 mg IM Q20M PRN HYPOGLYCEMIA 04/13/24 Unknown History injection (Glucagon (HCl) Emergency Kit) hydralazine 50 mg tablet 50 mg PO TID BLOOD PRESSURE 04/13/24 Unknown History melatonin 3 mg tablet 3 mg PO Q24H PRN INSOMNIA 04/13/24 Unknown History polyethylene glycol 3350 17 17 g PO Q24H PRN CONSTIPATION 04/13/24 Unknown History gram/dose oral powder (Miralax) gabapentin 100 mg capsule 100 mg PO BID #0 caps 04/16/24 Unknown Rx sodium phosphates 19 gram-7 118 ml CA DAILY PRN constipation 04/22/24 Unknown History gram/118 mL enema (Fleet Enema) tobramycin sulfate 40 mg/mL 100 mg IV Q24H 04/22/24 Unknown History injection solution Allergy/AdvReac Type Severity Reaction Status Date / Time No Known Allergies Allergy Verified 02/18/24 04:45 Family History Mother Hypertension Diabetes Father Hypertension Diabetes Surgical History History of kidney transplant S/P unilateral above knee amputation S/P foot surgery S/P colostomy Social History housing: snf Smoking Status: Never smoker alcohol intake: never substance use type: does not use ROS ROS ED Constitutional Constitutional ED: Denies chills, fever(s) or subjective Eyes Eyes: Denies blurry vision, change in vision or diplopia ENT ENT ED: Denies rhinorrhea or sore throat Cardiovascular Cardiovascular: Denies chest pain, orthopnea or palpitations Respiratory/Chest Respiratory/Chest: Denies cough, dyspnea, dyspnea on exertion or orthopnea Gastrointestinal Gastrointestinal: Denies abdominal pain, diarrhea, nausea or vomiting Genitourinary Genitourinary ED: Reports other Details: Patient has a suprapubic catheter in place. Musculoskeletal Musculoskeletal: Denies back pain Integumentary Reports other Details: Per old records wound sacral/ischial area. Neurologic Neurologic: Denies headache(s), paresthesias or weakness Psychiatric Psychiatric: Denies anxiety Hematologic/Lymphatic Hematologic/Lymphatic: Denies easy bleeding or easy bruising EXAM Physical Exam Const Vital Signs: 04/22/24 10:47 04/22/24 10:52 04/22/24 11:52 Temperature 99 F 99 F 98.2 F Temperature Source Oral Oral Axillary Pulse Rate 93 96 91 Respiratory Rate 20 H 15 19 H Blood Pressure 238/132 H 238/132 H 197/110 H Blood Pressure Mean 167 167 139 Pulse Ox 97 96 96 Oxygen Delivery Method Room Air Room Air 04/22/24 12:00 Temperature 98.2 F Temperature Source Axillary Pulse Rate 94 Respiratory Rate 18 Blood Pressure 197/110 H Blood Pressure Mean 139 Pulse Ox 97 Oxygen Delivery Method Room Air Blood pressure 12 noon is 197 110. This is approximately a 20% reduction. Patient has been observed hallucinating. Since he has altering level of consciousness from appropriate inappropriate by definition he has delirium. The cause of his delirium is uncertain. UA is still pending. Positive well nourished and well developed Constitutional Narrative: BMI is 37.6. Patient appears in no distress. He is cooperative. General Appearance ED: well developed and NAD; Negative for cyanotic, diaphoretic or pallor HEENT Reports moist mucous membranes HEENT Narrative: Head is atraumatic normocephalic. Ears normal. Nares patent. Posterior pharynx is normal. Eyes PERRL and EOMs intact bilaterally General Eye ED: Negative for pale conjunctiva or scleral icterus Neck no lymphadenopathy and supple Neck Narrative: Trachea is midline. There is no dysphonia. There is no stridor. Chest Wall inspection of chest normal and palpation of chest normal Resp normal respiratory effort and clear to auscultation bilaterally Cardio regular rate, regular rhythm, S1 normal heart sound, S2 normal heart sound and no murmurs GI normal to inspection, nondistended, normoactive bowel sounds, non-distended and no masses; Negative for non-tender or hepatosplenomegaly GI Narrative: There is tenderness right upper and right lower quadrant. Patient has a colostomy left lower quadrant. There is tenderness over the scar on the right side. There is no obvious incisional hernia. Inspection: Negative for abdominal distention Auscultation: hypoactive bowel sounds Palpation: soft and tender RLQ and RUQ; Negative for guarding or mass Narrative: Patient has a suprapubic catheter in place. Back/Spine Back/Spine Narrative: BKA left lower extremity. Has evidence of lymphedema right lower extremity. Extremity Negative for normal to inspection General Extremety ED: Yes edema General Extremity: edema Neuro oriented x3 and CN's II-XII intact bilaterally Sensorium / Orientation: alert Psych mental status grossly normal Mood & Affect: Negative for depressed or anxious Skin Skin Narrative: Evidence of dry skin and scarring from prior infection suspect pustular rash or folliculitis. General Skin Exam: elasticity normal; Negative for jaundice or pallor MDM MDM MDM Narrative Medical decision making narrative: Patient has a nonfocal neurologic exam and is alert and oriented x 3. His blood pressure is elevated. Since he is not complaining of headache and does not have a focal neurologic exam CT was not ordered initially. Review of his records indicates he is on carvedilol and hydralazine for hypertension. He takes 50 mg of hydralazine 3 times a day. IV hydralazine was ordered. Urine is not clear. UA was ordered. Since he had blood work prior to presentation and these were reviewed and compared to prior blood work and unchanged blood work was not orde red in the emergency department. Review of prior records indicate patient is on anticoagulant because of DVT. History & Record Review Additional record(s) reviewed:: Prior outpatient record, Prior ED visit and Prior labs Radiography Diagnostic Testing: Clinical Impression(s) from Imaging Studies Brain CT 04/22/24 11:22 IMPRESSION: 1. No CT evidence of intracranial bleeding, acute ischemic infarct or acute intracranial abnormality. 2. Abnormal hyperdense posterior chamber of the left orbital globe with dystrophic calcification of the left intraocular lens. This is a chronic finding and unchanged. 3. Interval improvement of pronounced right ethmoid sinusitis and interval improvement of mild right sphenoid sinusitis and mild right maxillary sinusitis. Electronically Signed: Gregory Sanabria MD at 12:19 EDT , CT of the head with out contrast was independent reviewed by me at 1130. There is mild mucosal thickening of the right maxillary sinus otherwise sinuses are unremarkable. There is no evidence of intracranial bleed or obvious stroke. Awaiting formal read by radiologist. Treatment and Re-Evaluation :: I was informed by nurse at 1115 the patient is hallucinating. Patient recently received his hydralazine. His pressure has improved markedly. With systolic is now is 148. That is a significant drop and would not of expected with only 10 mg of hydralazine since he takes 50 mg 3 times daily. Will obtain CT of the head to evaluate for intracranial bleed especially since he is now not acting appropriately and on anticoagulant. Since patient has acute delirium etiology unknown hospitalist was paged for admission. Comments:: Patient has not made enough urine to send for analysis. Discharge Plan Dx/Rx/DC Orders Clinical Impression: Acute delirium, Chronic kidney disease with end stage renal failure on dialysis, History of diabetes mellitus, Anemia of chronic illness, alf (current) use of 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, Hypertensive urgency, Hyponatremia Disposition Disposition: Acute Care [facility]
[2024-04-22] MEDS: hydrALAZINE 20 MG/ML Vial 10 MG IV (11:09)
--- NOTE | 2024-04-22 11:22 | CT_ITS ---
EXAM: CT HEAD WITHOUT INTRAVENOUS CONTRAST CLINICAL INDICATION: Encephalopathy, hypertensive urgency/emergency TECHNIQUE: Multiple axial images were obtained of the head without intravenous contrast. This CT exam was performed using one or more of the following dose reduction techniques: automated exposure control, adjustment of the mA and/or kV according to patient size, and/or use of iterative reconstruction technique. RADIATION DOSE: CTDIvol = 44.99 mGy, DLP = 880.47 mGy-cm COMPARISON: CT head without contrast 04/13/2024. FINDINGS: BRAIN AND EXTRA-AXIAL SPACES: Unremarkable. No intra- or extra-axial hemorrhage. No evidence of acute infarct. No intracranial mass or mass effect. There is preservation of the gore/white matter interface. Posterior fossa structures are unremarkable. Ventricles are appropriate for age. No hydrocephalus. Basal cisterns are patent. BONES/JOINTS: Unremarkable. No discrete lytic or blastic abnormalities. SINUSES: Clearing of pronounced mucosal thickening in the right ethmoid sinus. Improved mucosal thickening in the right sphenoid sinus and right maxillary sinus. Mild mucosal thickening of the left sphenoid sinus without obvious significant change. Normal left ethmoid sinus and right frontal sinus. Normal hypoplastic left frontal sinus. MASTOID AIR CELLS: Unremarkable. Clear. ORBITS: Abnormal hyperdense posterior chamber of the left orbital globe and dystrophic calcification of the left intraocular lens. No significant abnormality of the right orbital globe. Heavy calcifications of both ophthalmic arteries. CT/Brain/Head without Contrast IMPRESSION: 1. No CT evidence of intracranial bleeding, acute ischemic infarct or acute intracranial abnormality. 2. Abnormal hyperdense posterior chamber of the left orbital globe with dystrophic calcification of the left intraocular lens. This is a chronic finding and unchanged. 3. Interval improvement of pronounced right ethmoid sinusitis and interval improvement of mild right sphenoid sinusitis and mild right maxillary sinusitis. Electronically Signed: Gregory Sanabria MD at 12:19 EDT ,
--- NOTE | 2024-04-22 13:15 | ED.RN ---
Pt triggering sepsis with abnormal kidney function labs. These are Pt's baseline levels, MD aware.
--- NOTE | 2024-04-22 13:43 | PCM.HP.STD ---
HPI - General General Date of Admission: 04/22/24 Date of Service: 04/22/24 Chief Complaint: Patient was brought by EMS in confused state with abnormal labs. HPI Narrative CHINA GUILLEN, is a 38 M was brought to ED by EMS from SNF for confusion and hallucination and abnormal labs. Patient Lin mental state to give history. He is confused, staring look, looking in a distracted way on the ceiling. As per ED nursing staff he is having hallucination. On asking orientation question, he replied correctly to place, person, month and year and the president. He could not tell exact time. Patient is on hemodialysis TTS. Patient also has left below-knee amputation, failed kidney transplant and is on dialysis On further asking, patient is stated that he snorted crack cocaine. Unclear about other substance abuse. BP in ED was very high 232/132, heart rate 93 MAP 167, pulse ox 97% on room air. Hydralazine 10 mg IV was given. Most recent blood pressure 200/114. 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 H/O deep venous thrombosis Osteomyelitis of pelvic region Lives in residential Anxiety Open wound Insulin dependent diabetes mellitus Uses wheelchair Injury of back Non-healing wound of amputation stump DM type 2, goal HbA1c < 7% 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, stage 4 Neurogenic bowel Chronic kidney disease with end stage renal failure on dialysis Kidney transplant failure Dependence on renal dialysis Pressure ulcer of left heel, unspecified stage Gastro-esophageal reflux disease without esophagitis Other pericardial effusion (noninflammatory) Other pulmonary embolism without acute cor pulmonale Hypertensive heart and chronic kidney disease with heart failure and stage 1 through stage 4 chronic kidney disease, or unspecified chronic kidney disease Depression Hyperlipemia Hypothyroidism Anemia in chronic kidney disease Neuromuscular dysfunction of bladder, unspecified Paraplegia, incomplete Other acute osteomyelitis, left ankle and foot End stage renal disease Home Medications ?Medication ?Instructions ?Recorded ?Last Taken ?Type acetaminophen 325 mg tablet 650 mg PO Q4H PRN PAIN/FEVER 01/02/23 04/21/23 History apixaban 5 mg tablet (Eliquis) 5 mg PO BID AFIB 01/02/23 07/16/23 History ascorbic acid (vitamin C) 500 mg 500 mg PO QHS SUPPLEMENT 01/02/23 12/08/23 History tablet atorvastatin 40 mg tablet 40 mg PO QHS CHOLESTEROL 01/02/23 12/08/23 History bisacodyl 10 mg rectal suppository 10 mg IN DAILY PRN CONSTIPATION 01/02/23 Unknown History carvedilol 12.5 mg tablet 12.5 mg PO BID HYPERTENSION 01/02/23 12/09/23 History dextrose 40 % oral gel (Glucose 15 g PO Q15M PRN HYPGLYCEMIA 01/02/23 Unknown History Gel) ondansetron HCl 4 mg tablet 4 mg PO Q8H PRN NAUSEA/VOMITING 01/02/23 Unknown History pantoprazole 40 mg tablet,delayed 40 mg PO DAILY ACID REFLUX 01/02/23 12/08/23 History release sennosides 8.6 mg-docusate sodium 1 tab-cap PO BID CONSTIPATION 01/02/23 07/16/23 History 50 mg capsule (Senna Plus) tacrolimus 1 mg capsule, 2 mg PO Q12H IMMUNOSUPPRESIVE 01/02/23 12/09/23 History immediate-release (Prograf) sevelamer HCl 800 mg tablet 2,400 mg PO TIDCM ESRD 04/21/23 07/16/23 History levothyroxine 150 mcg tablet 150 mcg PO DAILY@0600 THYROID 07/16/23 12/09/23 History acetaminophen 650 mg rectal 650 mg IN Q4H PRN PAIN/FEVER 08/06/23 Unknown History suppository magnesium hydroxide 400 mg/5 mL 30 ml PO DAILY PRN CONSTIPATION 08/06/23 Unknown History oral suspension (Milk of Magnesia) ciclopirox 8 % topical solution 1 applic topical QHS NAIL FUNGUS 11/17/23 Unknown History diphenhydramine-zinc acetate 2 1 applic topical Q6H PRN ITCHING 12/06/23 Unknown History %-0.1 % topical cream (Benadryl Extra Strength) escitalopram oxalate 10 mg tablet 15 mg PO QHS DEPRESSION 12/30/23 Unknown History (Lexapro) insulin lispro 100 unit/mL 1 sliding scale dose subcut TIDCM 03/22/24 Unknown History subcutaneous pen vitamin B complex-vitamin C-folic 1 tab PO QPM HEALTH MAINTENANCE 03/22/24 Unknown History acid 0.8 mg tablet guaifenesin 100 mg/5 mL oral 200 mg PO Q4H PRN COUGH/CONGESTION 03/29/24 Unknown History liquid (Adult Tussin Chest Congestion) aluminum-magnesium hydroxide 200 30 ml PO Q4H PRN GI DISTRESS 04/13/24 Unknown History mg-200 mg/5 mL oral suspension glucagon HCl 1 mg solution for 1 mg IM Q20M PRN HYPOGLYCEMIA 04/13/24 Unknown History injection (Glucagon (HCl) Emergency Kit) hydralazine 50 mg tablet 50 mg PO TID BLOOD PRESSURE 04/13/24 Unknown History melatonin 3 mg tablet 3 mg PO Q24H PRN INSOMNIA 04/13/24 Unknown History polyethylene glycol 3350 17 17 g PO Q24H PRN CONSTIPATION 04/13/24 Unknown History gram/dose oral powder (Miralax) gabapentin 100 mg capsule 100 mg PO BID #0 caps 04/16/24 Unknown Rx sodium phosphates 19 gram-7 118 ml IN DAILY PRN constipation 04/22/24 Unknown History gram/118 mL enema (Fleet Enema) tobramycin sulfate 40 mg/mL 100 mg IV Q24H 04/22/24 Unknown History injection solution Allergy/AdvReac Type Severity Reaction Status Date / Time No Known Allergies Allergy Verified 02/18/24 04:45 Family History Mother Hypertension Diabetes Father Hypertension Diabetes Surgical History History of kidney transplant S/P unilateral above knee amputation S/P foot surgery S/P colostomy Social History housing: residential Smoking Status: Never smoker alcohol intake: never substance use type: does not use ROS ROS Narrative 14 system ROS unobtainable due to encephalopathy Review of Systems ROS Unobtainable: due to encephalopathy, due to mental condition and due to mental status Vital Signs Vital Signs Vital Signs: 04/22/24 10:47 04/22/24 10:52 04/22/24 11:52 Temperature 99 F 99 F 98.2 F Temperature Source Oral Oral Axillary Pulse Rate 93 96 91 Respiratory Rate 20 H 15 19 H Blood Pressure 238/132 H 238/132 H 197/110 H Blood Pressure Mean 167 167 139 Pulse Ox 97 96 96 Oxygen Delivery Method Room Air Room Air 04/22/24 12:00 04/22/24 13:00 04/22/24 13:37 Temperature 98.2 F 98 F Temperature Source Axillary Pulse Rate 94 97 97 Respiratory Rate 18 15 15 Blood Pressure 197/110 H 189/117 H 189/107 H Blood Pressure Mean 139 141 134 Pulse Ox 97 98 99 Oxygen Delivery Method Room Air Room Air Weight Weight: 277 lb 3.2 oz Body Mass Index (BMI) 37.5 Physical Exam Narrative General: Awake, confused and staring look. Oriented to place person but not time or situation HEENT: Atraumatic, PERRLA, EOMI, Normocephalic Oral: Mouth smells like nicotine. Oral mucosa dry. No Gingival or Mucosal Lesions/ Ulcerations Neck: Supple, No JVD, Negative Carotid Bruits Chest wall/Lungs: Air entry diminished in bilateral lung bases. No crepitation/rhonchi Cardiovascular: Regular rate, Regular Rhythm, Normal S1, Normal S2, No M/G/R Abdomen: Colostomy. Bowel Sounds Present, Soft, Non Tender, Non-Distended : Suprapubic cystostomy with catheter. No urine in the catheter. No renal angle tenderness. No suprapubic tenderness. Extremities: Left below-knee amputation. No edema, Capillary Refill Less than 3 Seconds Skin: No rashes, No breakdown Musculoskeletal: No Tenderness to Palpation of Joints or Extremities Neurological: Cranial nerves II-XII grossly intact, DTR 2+/4. No acute focal neurological deficit. Psych/Mental Status: Flat affect. Results Imaging Radiology Impression Brain CT 04/22/24 11:22 IMPRESSION: 1. No CT evidence of intracranial bleeding, acute ischemic infarct or acute intracranial abnormality. 2. Abnormal hyperdense posterior chamber of the left orbital globe with dystrophic calcification of the left intraocular lens. This is a chronic finding and unchanged. 3. Interval improvement of pronounced right ethmoid sinusitis and interval improvement of mild right sphenoid sinusitis and mild right maxillary sinusitis. Electronically Signed: Gregory Sanabria MD at 12:19 EDT , Assessment & Plan Assessment/Plan (1) Hypertensive emergency: (2) Encephalopathy: PLAN: Plan This is a 38-year-old gentleman being admitted for evaluation of altered mental status 1. Acute encephalopathy suspected toxic metabolic encephalopathy: Patient is being admitted in PCU. UA, U tox, serum alcohol GGT ordered. EEG and neuroconsult. CT head without contrast does not show evidence of acute intracranial abnormality. Chronic mild hyponatremia. Serum sodium 130 and it was 132 during last admission. Patient was last admitted in first week of April 2024 for similar condition of AMS. 2. Hypertensive emergency with possible endorgan acute encephalopathy: Patient had hydralazine 10 mg IV in the ED with about 20 mmHg drop Of BP. Labetalol 20 mg IV ordered and then every 4 hourly as needed for SBP more than 180 mmHg. Monitor blood pressure and will try to keep blood pressure between 160-170 mmHg for next 24 hours. 3. ESRD on hemodialysis, failed kidney transplant: Admissions Nurse consulted. He is dialysis days are TTS 4. Recent Staph capitis bacteremia/polymicrobial decubitus wound infection (Pseudomonas, Acinetobacter, ESBL E. coli): Blood cultures x 2 ordered. Patient on tobramycin and serum tobramycin level elevated on 04/21. Wound nurse consultation. ID consulted for further opinion. Patient also recently had otitis media and mastoiditis/sinusitis and CT head shows improvement of right ethmoid sinusitis, right sphenoid sinusitis and right maxillary sinusitis. Patient has bilateral retinal detachment. 5. DM type II: Glucose in BMP is up-to-date 4. Anion gap 9. 6. Anxiety, depression and insomnia: Patient on Lexapro at home, hold it. 7. Other multiple comorbidities include anemia of chronic renal disease, GERD, dyslipidemia: When patient can take oral will resume home medication 8. Obesity grade 2: BMI 36.1 KG per square meter. It was 39.3 kg/m? on last hospital admission about [address] Sql Developer consult. History of DVT prophylaxis: On Eliquis, resume CODE STATUS: Power of state wildlife officer for health is her sister who lives in [place]. In close proximity, his brother lives. Full code unverified. Laboratory Results 04/22/24 13:57: Phosphorus Pending, Magnesium Pending, Total Bilirubin Pending, Direct Bilirubin Pending, GGT Pending, AST Pending, ALT Pending, Alkaline Phosphatase Pending, Total Protein Pending, Albumin Pending, Ethyl Alcohol 5.0 Clinical Impression(s) from Imaging Studies Brain CT 04/22/24 11:22 IMPRESSION: 1. No CT evidence of intracranial bleeding, acute ischemic infarct or acute intracranial abnormality. 2. Abnormal hyperdense posterior chamber of the left orbital globe with dystrophic calcification of the left intraocular lens. This is a chronic finding and unchanged. 3. Interval improvement of pronounced right ethmoid sinusitis and interval improvement of mild right sphenoid sinusitis and mild right maxillary sinusitis. Charges/Coding Visit Charges Inpatient E&M: 66456 Init Hosp L3
[2024-04-22 14:29] LABS: AST(SGOT) 23 U/L (15-37); Alanine Aminotransfer ALT/SGPT 20 U/L (16-61); Albumin, Serum 3.2 g/dL (3.2-5.0); Alkaline Phosphatase 103 U/L (45-117); Bilirubin, Direct 0.25 mg/dL (0.00-0.30); Magnesium 1.9 mg/dL (1.6-2.6); Phosphorus 3.1 mg/dL (2.5-4.9); Protein, Total 9.2 g/dL (6.4-8.2)
[2024-04-22] MEDS: Labetalol (Prefilled) 20 MG/4 ML Vial IV ×3 (14:37→23:18)
[2024-04-22] MEDS: 0.9% Normal Saline (1000mL) 1,000 ML 75 ML IV (14:37)
[2024-04-22 18:09] LABS: Bedside Glucose 87 mg/dL (74-106)
[2024-04-23] VITALS (13 sets, daily range): BP systolic 37–278; BP diastolic 78–115; PULSE 92–101; RESP 12–20; TEMP 36.2–36.9; O2SAT 95–98; BMI 36.1; BMI 35.3
--- NOTE | 2024-04-23 | NURSING ---
This RN changed out patient's colostomy appliance, cleaned around stoma. Applied new bag, using stoma paste and new appliance. Minimal bleeding noted from bottom of stoma. Stoma is otherwise beefy red. Also changed non-woven gauze around suprapubic catheter. Minimal bleeding noted around suprapubic as well.
[2024-04-23 00:13] LABS: Mucous, Urine 0 SEEN /hpf (<or=2+)
[2024-04-23 00:43] LABS: Color, Urine Yellow (Yellow); Glucose, Dipstick Normal (Normal); Ketone-Dipstick Negative (Negative); Leukocyte Esterase-Dipstick 500 /ul (Negative); Nitrite-Dipstick Negative (Negative); Occult Blood-Urine 250 /ul (Negative); Protein-Dipstick 500 mg/dl (Negative); Specific Gravity, Urine 1.015 (1.002-1.030); Urine Bilirubin Dipstick Negative (Negative); Urine Clarity Cloudy (Clear); Urine Urobilinogen Normal (Normal)
[2024-04-23 01:11] LABS: Bedside Glucose 80 mg/dL (74-106)
[2024-04-23 01:57] LABS: Bacteria 3+ /hpf (None Seen); Red Blood Cells-Urine 5-10 SEEN /hpf (0-5); Squamous Epithelial Cells - UA 0-5 SEEN /hpf (0-5); White Blood Cells 25-50 SEEN /hpf (0-5)
[2024-04-23 02:02] LABS: Amphetamine Urine VISTA NEGATIVE (<1000 ng/mL); Barbiturate Urine VISTA NEGATIVE (< 200 ng/mL); Benzodiazepine Urine VISTA NEGATIVE (< 200 ng/mL); Cocaine Urine VISTA NEGATIVE (< 300 ng/mL); Ecstacy Urine VISTA NEGATIVE (< 500 ng/mL); Methadone Urine VISTA NEGATIVE (< 300 ng/mL); PCP Urine VISTA NEGATIVE (< 25 ng/mL); THC Urine VISTA NEGATIVE (< 50 ng/mL)
[2024-04-23] MEDS: Labetalol (Prefilled) 20 MG/4 ML Vial IV (04:17)
--- NOTE | 2024-04-23 04:23 | NURSING ---
I was notified by FINANCIAL AID DIRECTOR that patient had removed his IV. Upon entering the room, patient had taken off ARMINDA wrap and taken out his IV. A new IV was inserted and patient was reminded to not pull at wires and cords. IV was covered with tegaderm, opsite, kerlex, and ARMINDA wrap.
[2024-04-23 05:14] LABS: Bedside Glucose 73 mg/dL (74-106)
[2024-04-23 06:02] LABS: Vista UDS pH Range 7
[2024-04-23 07:12] LABS: Absolute Lymphocyte Count 1.38 X10^3/uL (0.83-4.51); Absolute Neutrophil Count 4.3 X10^3/uL (2.0-7.7); Basophil# 0.07 X10^3/uL; Eosinophil# 0.18 X10^3/uL; Eosinophils% 2.7 % (0-5); Hematocrit 36.5 % (40-54); Hemoglobin 11.7 g/dL (13.0-16.5); Lymphocyte # 1.38 X10^3/ul (0.83-4.51); Lymphocyte % 20.5 % (19-41); Mean Corp Hgb Conc 32.1 g/dL (32-36); Mean Corpuscular Hgb 28.3 pg (27.0-32.0); Mean Corpuscular Volume 88.2 fL (80-94); Monocyte# 0.75 X10^3/uL; Monocyte% 11.1 % (0-10); NRBC Flagged by Analyzer 0 % (0-5); Neutrophil # 4.34 X10^3/uL (2.7-7.7); Neutrophil % 64.4 % (47-70); Platelet Count 132 K/mm3 (150-450); RBC Distribution Width SD 54.8 fl (35.1-43.9); Red Blood Count 4.14 M/mm3 (4.6-6.2); White Blood Count 6.7 K/mm3 (4.4-11.0)
[2024-04-23 08:53] LABS: Anion Gap 14 (5-15); BUN 28 mg/dL (7-18); BUN/Creat Ratio 3.4 RATIO (10-20); Calcium,Total 9.3 mg/dL (8.5-10.1); Chloride 96 mmol/L (98-107); Creatinine, Serum 8.15 mg/dL (0.70-1.30); EST Glomerular Filtration Rate 8 mL/min (>60); Est Glom Filt Rate - Afr Amer 10 mL/min (>60); Estimated Creatinine Clearance 16.82 ml/min; Glucose 85 mg/dL (74-106); Potassium 3.5 mmol/L (3.5-5.1); Sodium Level 134 mmol/L (136-145)
--- NOTE | 2024-04-23 10:10 | NEURO.CONS ---
Assessment and Plan: Neuro Assessment/Plan CHINA GUILLEN III is a 38 M with a past medical history of ESRD s/p failed Kidney transplant on HD, bilateral retinal detachments, DM2, HTN, recent infection , being evaluated by Teleneurology for AMS. Recent admission for the same, improved and felt to be due to toxic metabolic encephalopathy. rEEG obtained (patient actively hallucinating during EEG) and was normal, no epileptiform activity ruling out seizure as etiology. Recent MRI Brain 04/13 was unremarkable. Tobramycin can cause encephalopathy and has been reported to causes psychosis. Given elevated levels and known renal impairment would place this high on the differential. Diagnosis: Toxic metabolic encephalopathy possibly 2/2 tobramycin toxicity. Plan: - Can repeat MRI Brain to evaluate for interval changes - Otherwise no further work up from neurology standpoint I personally attended this patient and spent a total time of minutes evaluating this patient including clinical assessment, review of chart, medical history imaging, and determining appropriate treatment and workup. HPI Consult Data Date of Consult: 04/23/24 HPI Narrative HPI Narrative: CHINA GUILLEN, is a 38 M w/ history of ESRD s/p failed Kidney transplant on HD, bilateral retinal detachments, DM2, HTN, recent infection who presents with AMS and hallucinations. Patient presents from his living facility with altered mental status. Limited history from patient. Discussed BPs significantly elevated in ED - 232/132. He reported to admitting team that he had snorted cocaine (but UDS negative). Per documentation he was always alert and oriented but seemed to be actively attending to external stimuli. Tobramycin levels elevated. [facility] Medical History Decubitus ulcer Abscess Left ischial pressure sore Open wound of left buttock with complication Current use of usp anticoagulation Acute hyperkalemia Acute alteration in mental status Phantom limb syndrome with pain Paraplegia Metabolic encephalopathy Type 2 diabetes mellitus End-stage renal disease on hemodialysis Anticoagulant long-term use ESRD (end stage renal disease) on dialysis Hx of pulmonary embolus Anemia in chronic kidney disease, on chronic dialysis [facility] (current) use of 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 H/O deep venous thrombosis Osteomyelitis of pelvic region Lives in halfway Anxiety Open wound Insulin dependent diabetes mellitus Uses wheelchair Injury of back Non-healing wound of amputation stump DM type 2, goal HbA1c < 7% 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, stage 4 Neurogenic bowel Chronic kidney disease with end stage renal failure on dialysis Kidney transplant failure Dependence on renal dialysis Pressure ulcer of left heel, unspecified stage Gastro-esophageal reflux disease without esophagitis Other pericardial effusion (noninflammatory) Other pulmonary embolism without acute cor pulmonale Hypertensive heart and chronic kidney disease with heart failure and stage 1 through stage 4 chronic kidney disease, or unspecified chronic kidney disease Depression Hyperlipemia Hypothyroidism Anemia in chronic kidney disease Neuromuscular dysfunction of bladder, unspecified Paraplegia, incomplete Other acute osteomyelitis, left ankle and foot End stage renal disease Home Medications ?Medication ?Instructions ?Recorded ?Last Taken ?Type acetaminophen 325 mg tablet 650 mg PO Q4H PRN PAIN/FEVER 01/02/23 04/21/23 History apixaban 5 mg tablet (Eliquis) 5 mg PO BID AFIB 01/02/23 07/16/23 History ascorbic acid (vitamin C) 500 mg 500 mg PO QHS SUPPLEMENT 01/02/23 12/08/23 History tablet atorvastatin 40 mg tablet 40 mg PO QHS CHOLESTEROL 01/02/23 12/08/23 History bisacodyl 10 mg rectal suppository 10 mg UT DAILY PRN CONSTIPATION 01/02/23 Unknown History carvedilol 12.5 mg tablet 12.5 mg PO BID HYPERTENSION 01/02/23 12/09/23 History dextrose 40 % oral gel (Glucose 15 g PO Q15M PRN HYPGLYCEMIA 01/02/23 Unknown History Gel) ondansetron HCl 4 mg tablet 4 mg PO Q8H PRN NAUSEA/VOMITING 01/02/23 Unknown History pantoprazole 40 mg tablet,delayed 40 mg PO DAILY ACID REFLUX 01/02/23 12/08/23 History release sennosides 8.6 mg-docusate sodium 1 tab-cap PO BID CONSTIPATION 01/02/23 07/16/23 History 50 mg capsule (Senna Plus) tacrolimus 1 mg capsule, 2 mg PO Q12H IMMUNOSUPPRESIVE 01/02/23 12/09/23 History immediate-release (Prograf) sevelamer HCl 800 mg tablet 2,400 mg PO TIDCM ESRD 04/21/23 07/16/23 History levothyroxine 150 mcg tablet 150 mcg PO DAILY@0600 THYROID 07/16/23 12/09/23 History acetaminophen 650 mg rectal 650 mg UT Q4H PRN PAIN/FEVER 08/06/23 Unknown History suppository magnesium hydroxide 400 mg/5 mL 30 ml PO DAILY PRN CONSTIPATION 08/06/23 Unknown History oral suspension (Milk of Magnesia) ciclopirox 8 % topical solution 1 applic topical QHS NAIL FUNGUS 11/17/23 Unknown History diphenhydramine-zinc acetate 2 1 applic topical Q6H PRN ITCHING 12/06/23 Unknown History %-0.1 % topical cream (Benadryl Extra Strength) escitalopram oxalate 10 mg tablet 15 mg PO QHS DEPRESSION 12/30/23 Unknown History (Lexapro) insulin lispro 100 unit/mL 1 sliding scale dose subcut TIDCM 03/22/24 Unknown History subcutaneous pen vitamin B complex-vitamin C-folic 1 tab PO QPM HEALTH MAINTENANCE 03/22/24 Unknown History acid 0.8 mg tablet guaifenesin 100 mg/5 mL oral 200 mg PO Q4H PRN COUGH/CONGESTION 03/29/24 Unknown History liquid (Adult Tussin Chest Congestion) aluminum-magnesium hydroxide 200 30 ml PO Q4H PRN GI DISTRESS 04/13/24 Unknown History mg-200 mg/5 mL oral suspension glucagon HCl 1 mg solution for 1 mg IM Q20M PRN HYPOGLYCEMIA 04/13/24 Unknown History injection (Glucagon (HCl) Emergency Kit) hydralazine 50 mg tablet 50 mg PO TID BLOOD PRESSURE 04/13/24 Unknown History melatonin 3 mg tablet 3 mg PO Q24H PRN INSOMNIA 04/13/24 Unknown History polyethylene glycol 3350 17 17 g PO Q24H PRN CONSTIPATION 04/13/24 Unknown History gram/dose oral powder (Miralax) gabapentin 100 mg capsule 100 mg PO BID #0 caps 04/16/24 Unknown Rx sodium phosphates 19 gram-7 118 ml UT DAILY PRN constipation 04/22/24 Unknown History gram/118 mL enema (Fleet Enema) tobramycin sulfate 40 mg/mL 100 mg IV Q24H 04/22/24 Unknown History injection solution Allergy/AdvReac Type Severity Reaction Status Date / Time No Known Allergies Allergy Verified 02/18/24 04:45 Family History Mother Hypertension Diabetes Father Hypertension Diabetes Surgical History History of kidney transplant S/P unilateral above knee amputation S/P foot surgery S/P colostomy Social History housing: halfway Smoking Status: Never smoker alcohol intake: never substance use type: does not use Vital Signs Vital Signs Vital Signs: 04/22/24 10:47 04/22/24 10:52 04/22/24 11:52 Temperature 99 F 99 F 98.2 F Temperature Source Oral Oral Axillary Pulse Rate 93 96 91 Respiratory Rate 20 H 15 19 H Respiratory Effort Respiratory Depth Respiratory Pattern Blood Pressure 238/132 H 238/132 H 197/110 H Blood Pressure Mean 167 167 139 Blood Pressure Source Blood Pressure Position Blood Pressure Location Pulse Ox 97 96 96 Oxygen Delivery Method Room Air Room Air 04/22/24 12:00 04/22/24 13:00 04/22/24 13:37 Temperature 98.2 F 98 F Temperature Source Axillary Pulse Rate 94 97 97 Respiratory Rate 18 15 15 Respiratory Effort Respiratory Depth Respiratory Pattern Blood Pressure 197/110 H 189/117 H 189/107 H Blood Pressure Mean 139 141 134 Blood Pressure Source Blood Pressure Position Blood Pressure Location Pulse Ox 97 98 99 Oxygen Delivery Method Room Air Room Air 04/22/24 14:13 04/22/24 15:13 04/22/24 18:00 Temperature 97.8 F Temperature Source Temporal Pulse Rate 97 Respiratory Rate 16 Respiratory Effort Normal Respiratory Depth Normal Respiratory Pattern Normal Blood Pressure 200/114 H 188/106 H Blood Pressure Mean 142 133 Blood Pressure Source Monitor Monitor Blood Pressure Position Semi-Fowlers Semi-Fowlers Blood Pressure Location Right Arm Right Arm Pulse Ox 98 Oxygen Delivery Method Room Air Room Air 04/22/24 18:36 04/22/24 22:00 04/22/24 22:30 Temperature 98.5 F 98.3 F Temperature Source Oral Oral Pulse Rate 99 96 Respiratory Rate 16 18 Respiratory Effort Normal Respiratory Depth Normal Respiratory Pattern Normal Blood Pressure 192/110 H 172/99 H Blood Pressure Mean 137 123 Blood Pressure Source Monitor Monitor Blood Pressure Position Semi-Fowlers Semi-Fowlers Blood Pressure Location Right Arm Right Arm Pulse Ox 99 94 Oxygen Delivery Method Room Air Room Air Room Air 04/23/24 03:00 04/23/24 03:30 04/23/24 06:30 Temperature 98.5 F Temperature Source Oral Pulse Rate 92 Respiratory Rate 20 H Respiratory Effort Normal Respiratory Depth Normal Respiratory Pattern Normal Blood Pressure 197/108 H 179/96 H Blood Pressure Mean 137 123 Blood Pressure Source Monitor Monitor Blood Pressure Position Semi-Fowlers Semi-Fowlers Blood Pressure Location Right Arm Right Arm Pulse Ox 95 Oxygen Delivery Method Room Air Room Air 04/23/24 09:43 Temperature 97.8 F Temperature Source Temporal Pulse Rate 93 Respiratory Rate 18 Respiratory Effort Normal Non-Labored Respiratory Depth Normal Respiratory Pattern Normal Blood Pressure 192/111 H Blood Pressure Mean 138 Blood Pressure Source Monitor Blood Pressure Position Semi-Fowlers Blood Pressure Location Right Arm Pulse Ox 97 Oxygen Delivery Method Room Air Weight Weight: 120.8 kg Body Mass Index (BMI) 36.1 EEG Results Procedure Details EEG Procedure Details: CHINA GUILLEN III is a 38 year old M with a past medical history of , who presents for evaluation of Electroencephalogram on DATE at TIME Lab / Micro Data 04/23/24 07:03 04/23/24 07:03 Labs: Laboratory Results - last 24 hr 04/22/24 00:05: Urine Opiates Screen NEGATIVE, Urine Methadone Screen NEGATIVE, Ur Barbiturates Screen NEGATIVE, Ur Phencyclidine Scrn NEGATIVE, Ur Amphetamines Screen NEGATIVE, MDMA (Ecstasy) Screen NEGATIVE, U Benzodiazepines Scrn NEGATIVE, Urine Cocaine Screen NEGATIVE, U Cannabinoids Screen NEGATIVE, Ur Drug Screen Comment 04/22/24 13:57: Phosphorus 3.1, Magnesium 1.9, Total Bilirubin 0.70, Direct Bilirubin 0.25, AST 23, ALT 20, Alkaline Phosphatase 103, Total Protein 9.2 H, Albumin 3.2, Globulin 6.0 H, Ethyl Alcohol 5.0 04/22/24 17:45: POC Glucose 87 04/22/24 23:15: POC Glucose 80 04/23/24 00:05: Urine Color Yellow, Urine Clarity Cloudy, Urine pH 8.0, Ur Specific [place] 1.015, Urine Protein 500 H, Urine Glucose (UA) Normal, Urine Ketones Negative, Urine Occult Blood 250 H, Urine Nitrite Negative, Urine Bilirubin Negative, Urine Urobilinogen Normal, Ur Leukocyte Esterase 500 H, Urine RBC 5-10 SEEN, Urine WBC 25-50 SEEN, Ur Squamous Epith Cells 0-5 SEEN, Urine Bacteria 3+, Urine Mucus 0 SEEN 04/23/24 04:56: POC Glucose 73 L 04/23/24 07:03: WBC 6.7, RBC 4.14 L, Hgb 11.7 L, Hct 36.5 L, MCV 88.2, MCH 28.3, MCHC 32.1, RDW Std Deviation 54.8 H, RDW Coeff of Shanta 17.0 H, Plt Count 132 L, MPV 11.0, Immature Gran % (Auto) 0.300, Neut % (Auto) 64.4, Lymph % (Auto) 20.5, [place] % (Auto) 11.1 H, Eos % (Auto) 2.7, Baso % (Auto) 1.0, Absolute Neuts (auto) 4.3, Absolute Lymphs (auto) 1.38, Nucleated RBC % 0, Sodium 134 L, Potassium 3.5, Chloride 96 L, Carbon Dioxide 25.0, Anion Gap 14, BUN 28 H, Creatinine 8.15 H*, Estim Creat Clear Calc 16.82, Est GFR (MDRD) Af Amer 10 L, Est GFR (MDRD) Non-Af 8 L, BUN/Creatinine Ratio 3.4 L, Glucose 85, Calcium 9.3, TSH 6.770 H Imaging Radiology Impression Brain CT 04/22/24 11:22 IMPRESSION: 1. No CT evidence of intracranial bleeding, acute ischemic infarct or acute intracranial abnormality. 2. Abnormal hyperdense posterior chamber of the left orbital globe with dystrophic calcification of the left intraocular lens. This is a chronic finding and unchanged. 3. Interval improvement of pronounced right ethmoid sinusitis and interval improvement of mild right sphenoid sinusitis and mild right maxillary sinusitis. Electronically Signed: Gregory Sanabria MD at 12:19 EDT , Active Medications Active Medications Active Medications: Current Medications Generic Name Dose Route Start Last Admin Trade Name Freq PRN Reason Stop Dose Admin Acetaminophen 650 mg 04/22/24 14:02 Acetaminophen 325 Mg Tablet PO Q6H PRN PRN Pain 1-10 Or Fever>100.7 Apixaban 5 mg 04/22/24 22:00 04/22/24 22:41 Apixaban 5 Mg Tablet PO Not Given BID TARUN Bisacodyl 10 mg 04/22/24 14:36 Bisacodyl 10 Mg Suppository RC DAILY PRN CONSTIPATION Glucagon 1 mg 04/22/24 14:36 Glucagon 1 Mg/Ml Syringe IM X1 PRN Hypoglycemia Protocol Hemodialysis Solution 6 bag 04/23/24 09:00 Pureflow B 2k Dialysis Soln 1 Bag PF 04/23/24 20:53 UD [facility] Protocol Dextrose 250 mls @ 0 mls/hr 04/22/24 14:36 Dextrose 10%-Water IV .Q0M PRN HYPOGLYCEMIA Protocol As Directed Insulin Human Lispro 0 unit 04/22/24 18:00 04/23/24 05:06 Insulin Lispro 100 Unit/Ml Insuln.Pen SC Not Given Q6 [facility] Protocol Labetalol HCl 20 mg 04/22/24 14:38 04/23/24 04:17 Labetalol (Prefilled) 20 Mg/4 Ml Vial IV 20 mg Q4H PRN PRN Administration SBP>190 MMHG Ondansetron HCl 4 mg 04/22/24 14:02 Ondansetron 4 Mg/2 Ml Vial IV Q8H PRN PRN NAUSEA/VOMITING Senna/Docusate Sodium 2 tablet 04/22/24 14:02 Senna/Docusate Sodium 1 Tablet PO BID PRN PRN Constipation Sodium Chloride 10 - 40 ml 04/22/24 14:07 0.9% Saline Lock 10 Ml Syringe IV UD PRN SALINE FLUSH Sodium Chloride 1,000 ml 04/23/24 08:50 0.9% Normal Saline 1,000 Ml Iv.Soln. OPERA.SITE 04/23/24 20:48 X1 TARUN Sodium Chloride 200 ml 04/23/24 08:48 0.9% Normal Saline 1,000 Ml Iv.Soln. IV 04/23/24 20:48 X1 PRN to maintain SBP >90mmHg during Dialysis
--- NOTE | 2024-04-23 11:45 | CASEMGMT ---
Discharge Planning Updates sent to [facility] via [facility]. Selina Sylvester DC Planning Asst.
[2024-04-23] MEDS: Morphine 4 MG/ML Syringe IV (11:58)
[2024-04-23] MEDS: PureFlow B 2K Dialysis Soln 1 BAG 6 BAG PF (11:58)
[2024-04-23] MEDS: 0.9% Normal Saline 1,000 ML IV.SOLN. 1000 ML OPERA.SITE (11:58)
[2024-04-23] MEDS: 0.9% Saline Lock 10 ML Syringe IV (11:59)
[2024-04-23 13:31] LABS: Bedside Glucose 76 mg/dL (74-106)
--- NOTE | 2024-04-23 15:07 | WOUNDNOTE ---
wound photo: left ischium
--- NOTE | 2024-04-23 16:00 | PCM.PN.HOSP ---
Reason for Visit Reason for Visit: Diagnoses Encephalopathy, unspecified (04/22/24) Hypertensive emergency (04/22/24) Subjective Subjective Patient was seen and examined today, he is nonverbal and does not follow commands. I talked briefly with infectious diseases, they feel it is unlikely that his IV tobramycin could be causing his encephalopathy. Patient is undergoing dialysis today. Objective Data Objective Data Vital Signs: Vital Signs Temp Pulse Resp BP Pulse Ox O2 Del Method 97.6 F L 92 12 137/104 H 97 Room Air 04/23/24 13:21 04/23/24 13:21 04/23/24 13:21 04/23/24 13:21 04/23/24 13:21 04/23/24 13:21 Oxygen Delivery Method Room Air Weight: 118.4 kg Body Mass Index (BMI) 35.3 Intake & Output: Intake and Output for Last 24 Hours 04/21/24 04/22/24 04/23/24 23:59 23:59 23:59 Intake Total 0 / 0 1000.00 / 1000.00 Output Total 0 / 500 3400 / 3400 Balance 0 / -500 -2400.00 / -2400.00 Lab / Micro Data 04/23/24 07:03 04/23/24 07:03 Labs: Laboratory Results - last 24 hr 04/22/24 00:05: Urine Opiates Screen NEGATIVE, Urine Methadone Screen NEGATIVE, Ur Barbiturates Screen NEGATIVE, Ur Phencyclidine Scrn NEGATIVE, Ur Amphetamines Screen NEGATIVE, MDMA (Ecstasy) Screen NEGATIVE, U Benzodiazepines Scrn NEGATIVE, Urine Cocaine Screen NEGATIVE, U Cannabinoids Screen NEGATIVE, Ur Drug Screen Comment 04/22/24 17:45: POC Glucose 87 04/22/24 23:15: POC Glucose 80 04/23/24 00:05: Urine Color Yellow, Urine Clarity Cloudy, Urine pH 8.0, Ur Specific [place] 1.015, Urine Protein 500 H, Urine Glucose (UA) Normal, Urine Ketones Negative, Urine Occult Blood 250 H, Urine Nitrite Negative, Urine Bilirubin Negative, Urine Urobilinogen Normal, Ur Leukocyte Esterase 500 H, Urine RBC 5-10 SEEN, Urine WBC 25-50 SEEN, Ur Squamous Epith Cells 0-5 SEEN, Urine Bacteria 3+, Urine Mucus 0 SEEN 04/23/24 04:56: POC Glucose 73 L 04/23/24 07:03: WBC 6.7, RBC 4.14 L, Hgb 11.7 L, Hct 36.5 L, MCV 88.2, MCH 28.3, MCHC 32.1, RDW Std Deviation 54.8 H, RDW Coeff of Shanta 17.0 H, Plt Count 132 L, MPV 11.0, Immature Gran % (Auto) 0.300, Neut % (Auto) 64.4, Lymph % (Auto) 20.5, [place] % (Auto) 11.1 H, Eos % (Auto) 2.7, Baso % (Auto) 1.0, Absolute Neuts (auto) 4.3, Absolute Lymphs (auto) 1.38, Nucleated RBC % 0, Sodium 134 L, Potassium 3.5, Chloride 96 L, Carbon Dioxide 25.0, Anion Gap 14, BUN 28 H, Creatinine 8.15 H*, Estim Creat Clear Calc 16.82, Est GFR (MDRD) Af Amer 10 L, Est GFR (MDRD) Non-Af 8 L, BUN/Creatinine Ratio 3.4 L, Glucose 85, Calcium 9.3, TSH 6.770 H 04/23/24 12:04: POC Glucose 76 Physical Exam Const alert and no apparent distress Constitutional Narrative: Patient is nonverbal, he does not follow commands General Appearance: well developed Orientation / Consciousness: awake HEENT normocephalic, head/scalp atraumatic and moist oral mucous membranes Eyes PERRL, EOMs intact bilaterally and conjunctivae normal Neck supple, no JVD, thyroid normal and no carotid bruits General: trachea midline Resp normal respiratory effort, no retractions, no use of accessory muscles and clear to auscultation bilaterally Auscultation: Negative for rales, rhonchi or wheezes Cardio regular rate, regular rhythm, S1 normal heart sound, S2 normal heart sound, no murmurs, no rub and no gallops GI normal to inspection, nondistended, normoactive bowel sounds, soft to palpation, non-tender and non-distended Extremity Extremity Narrative: There is a below the knee amputation which is remote on the left leg Neuro CN's II-XII intact bilaterally Neuro Narrative: Patient is awake, he is nonverbal, he does not follow commands Sensorium / Orientation: awake and alert Psych Psych Narrative: Patient is nonverbal, he does not follow commands Assessment & Plan Assessment/Plan (1) Encephalopathy: PLAN: Plan 1. Metabolic encephalopathy-etiology unclear at this point, continue to provide supportive care #2 end-stage renal disease requiring dialysis-nephrology is participating in his care #3 osteomyelitis of the pelvis-patient was given his usual dose of tobramycin today, he will return to the [facility] on this antibiotic-stop date appears to be May 25, 2024 #4 type 2 diabetes-patient's blood sugars will be monitored, sliding scale insulin will be administered as indicated #5 essential hypertension-patient will remain on his current medications #6 hypothyroidism-patient remains on Synthroid, I will obtain a T4 and T3-patient's TSH is slightly elevated #7 paraplegia-complicates care, management, recovery, and prognosis Total clinical time spent by myself addressing the patient's medical issues, reviewing all of his data, and collaborating with patient's care team: 35 minutes Charges/Coding Visit Charges Inpatient E&M: 51370 Subs Hosp L2
[2024-04-23] MEDS: Tobramycin 100 MG in Dextrose 5%-Water (50mL Bag) 50 ML IV (16:37)
[2024-04-23 18:09] LABS: T4 Total, Thyroxin 12.2 ug/dL (4.5-12.1)
[2024-04-23 19:17] LABS: Bedside Glucose 70 mg/dL (74-106)
--- NOTE | 2024-04-23 20:01 | PCM.HOSP.N ---
Hospitalist Note Patient admitted with encephalopathy, remained NPO, will hold oral regimen, add IV hydralazine PRN, add IV protonix, noted also mild hypoglycemia thus will start low dose dextrose supplementation (ESRD status with HD today) in addition to holding eliquis and transition to heparin drip as it appears he takes this for VTE.
[2024-04-23] MEDS: Dextrose 5%/0.9% NaCl 1,000 ML 50 ML IV (20:25)
[2024-04-23] MEDS: Pantoprazole Sodium 40 MG in 0.9% Normal Saline (100mL MB+) 100 ML 330 MG IV (20:28)
[2024-04-23 21:06] LABS: International Normalized Ratio 1.4; Prothrombin Time (Protime)PT. 16.7 SECONDS (11.7-14.9)
[2024-04-23 21:07] LABS: Partial Thromboplast Time 33.9 Seconds (24.1-36.2)
[2024-04-23] MEDS: Ceftriaxone 2 GM in 0.9% Normal Saline (50mL MB+) 50 ML IV (21:22)
[2024-04-23] MEDS: Heparin Injection (Vial) 5,000 UNIT/ML VIAL 9500 UNIT IV (23:01)
[2024-04-23] MEDS: HEPARIN/D5w 25,000 UNITS 25,000 UNITS/250 ML IV.SOLN. 16 UNITS CONT INF (23:03)
[2024-04-24] VITALS (17 sets, daily range): BP systolic 126–290; BP diastolic 71–105; PULSE 90–102; RESP 12–18; TEMP 36.3–36.6; O2SAT 96–99; BMI 35.3; BMI 34.7
[2024-04-24] MEDS: 0.9% Saline Lock 10 ML Syringe IV ×2 (00:33→04:07)
[2024-04-24 00:51] LABS: Bedside Glucose 84 mg/dL (74-106)
[2024-04-24] MEDS: hydrALAZINE 20 MG/ML Vial 10 MG IV (04:07)
[2024-04-24 06:18] LABS: Bedside Glucose 96 mg/dL (74-106)
[2024-04-24 06:31] LABS: Partial Thromboplast Time 87.2 Seconds (24.1-36.2)
[2024-04-24] MEDS: 0.9% Normal Saline 1,000 ML IV.SOLN. 1000 ML OPERA.SITE (07:58)
[2024-04-24] MEDS: PureFlow B 2K Dialysis Soln 1 BAG 6 BAG PF (07:58)
--- NOTE | 2024-04-24 10:19 | WOUNDNOTE ---
Pt currently on dialysis.
--- NOTE | 2024-04-24 10:26 | CON.PCM.RE_ITS ---
Assessment & Plan Assessment/Plan (1) ESRD (end stage renal disease) on dialysis: PLAN: Plan Impression/Plan: The patient is a 38-year-old male with past history of ESRD s/p failed kidney transplant, T2DM, HTN, atrial fibrillation, hypothyroidism, GERD, substance use disorder, and hyperlipidemia. The patient presented to the hospital on 04/22/2024 with altered MS and severe HTN. Nephrology is follwoing for ESRD and for dialysis management. ESRD. The patient dialyzes on a MTTF schedule (4 times per week). The patient will be kept on this dialysis schedule while in the hospital. He is being dialyzed today. Next hemodialysis is scheduled for 04/27/2024. s/p Failed kidney transplant. Keep patient on tacrolimus for now to avoid acute rejection of allograft. However, if patient has been on dialysis for more than 1 year, we can probably start to wean tacrolimus. I will check with his primary union organiser. Tacrolimus can be weaned off over next 3-6 months. HPI Consult Data Date of Consult: 04/24/24 HPI Narrative Reason for Consultation: ESRD HPI Narrative: The patient is a 38-year-old male with past history of ESRD s/p failed kidney transplant, T2DM, HTN, atrial fibrillation, hypothyroidism, GERD, substance use disorder, and hyperlipidemia. The patient presented to the hospital on 04/22/2024 with altered MS and severe HTN. He has been diagnosed with toxic-metabolic encephalopathy by neurology. His MS has improved in the past 24 hrs. Nephrology is asked to see the patient because of ESRD and need for dialysis. The patient denies CP, dyspnea, nasuea, vomiting. Appetite has been poor. Patient tells me that he has returned to dialysis about 4 years ago. to confirm this with his primary union organiser. [facility] Medical History (Updated 04/24/24 @ 15:[address] 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 H/O deep venous thrombosis Osteomyelitis of pelvic region Lives in penitentiary Anxiety Open wound Insulin dependent diabetes mellitus Uses wheelchair Injury of back Non-healing wound of amputation stump DM type 2, goal HbA1c < 7% 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, stage 4 Neurogenic bowel Chronic kidney disease with end stage renal failure on dialysis Kidney transplant failure Dependence on renal dialysis Pressure ulcer of left heel, unspecified stage Gastro-esophageal reflux disease without esophagitis Other pericardial effusion (noninflammatory) Other pulmonary embolism without acute cor pulmonale Hypertensive heart and chronic kidney disease with heart failure and stage 1 through stage 4 chronic kidney disease, or unspecified chronic kidney disease Depression Hyperlipemia Hypothyroidism Anemia in chronic kidney disease Neuromuscular dysfunction of bladder, unspecified Paraplegia, incomplete Other acute osteomyelitis, left ankle and foot End stage renal disease Home Medications ?Medication ?Instructions ?Recorded ?Last Taken ?Type acetaminophen 325 mg tablet 650 mg PO Q4H PRN PAIN/FEVER 01/02/23 04/21/23 History apixaban 5 mg tablet (Eliquis) 5 mg PO BID AFIB 01/02/23 07/16/23 History ascorbic acid (vitamin C) 500 mg 500 mg PO QHS SUPPLEMENT 01/02/23 12/08/23 History tablet atorvastatin 40 mg tablet 40 mg PO QHS CHOLESTEROL 01/02/23 12/08/23 History bisacodyl 10 mg rectal suppository 10 mg VT DAILY PRN CONSTIPATION 01/02/23 Unknown History carvedilol 12.5 mg tablet 12.5 mg PO BID HYPERTENSION 01/02/23 12/09/23 History dextrose 40 % oral gel (Glucose 15 g PO Q15M PRN HYPGLYCEMIA 01/02/23 Unknown History Gel) ondansetron HCl 4 mg tablet 4 mg PO Q8H PRN NAUSEA/VOMITING 01/02/23 Unknown History pantoprazole 40 mg tablet,delayed 40 mg PO DAILY ACID REFLUX 01/02/23 12/08/23 History release sennosides 8.6 mg-docusate sodium 1 tab-cap PO BID CONSTIPATION 01/02/23 07/16/23 History 50 mg capsule (Senna Plus) tacrolimus 1 mg capsule, 2 mg PO Q12H IMMUNOSUPPRESIVE 01/02/23 12/09/23 History immediate-release (Prograf) sevelamer HCl 800 mg tablet 2,400 mg PO TIDCM ESRD 04/21/23 07/16/23 History levothyroxine 150 mcg tablet 150 mcg PO DAILY@0600 THYROID 07/16/23 12/09/23 History acetaminophen 650 mg rectal 650 mg VT Q4H PRN PAIN/FEVER 08/06/23 Unknown History suppository magnesium hydroxide 400 mg/5 mL 30 ml PO DAILY PRN CONSTIPATION 08/06/23 Unknown History oral suspension (Milk of Magnesia) ciclopirox 8 % topical solution 1 applic topical QHS NAIL FUNGUS 11/17/23 Unknown History diphenhydramine-zinc acetate 2 1 applic topical Q6H PRN ITCHING 12/06/23 Unknown History %-0.1 % topical cream (Benadryl Extra Strength) escitalopram oxalate 10 mg tablet 15 mg PO QHS DEPRESSION 12/30/23 Unknown History (Lexapro) insulin lispro 100 unit/mL 1 sliding scale dose subcut TIDCM 03/22/24 Unknown History subcutaneous pen vitamin B complex-vitamin C-folic 1 tab PO QPM HEALTH MAINTENANCE 03/22/24 Unknown History acid 0.8 mg tablet guaifenesin 100 mg/5 mL oral 200 mg PO Q4H PRN COUGH/CONGESTION 03/29/24 Unknown History liquid (Adult Tussin Chest Congestion) aluminum-magnesium hydroxide 200 30 ml PO Q4H PRN GI DISTRESS 04/13/24 Unknown History mg-200 mg/5 mL oral suspension glucagon HCl 1 mg solution for 1 mg IM Q20M PRN HYPOGLYCEMIA 04/13/24 Unknown History injection (Glucagon (HCl) Emergency Kit) hydralazine 50 mg tablet 50 mg PO TID BLOOD PRESSURE 04/13/24 Unknown History melatonin 3 mg tablet 3 mg PO Q24H PRN INSOMNIA 04/13/24 Unknown History polyethylene glycol 3350 17 17 g PO Q24H PRN CONSTIPATION 04/13/24 Unknown History gram/dose oral powder (Miralax) gabapentin 100 mg capsule 100 mg PO BID #0 caps 04/16/24 Unknown Rx sodium phosphates 19 gram-7 118 ml VT DAILY PRN constipation 04/22/24 Unknown History gram/118 mL enema (Fleet Enema) tobramycin sulfate 40 mg/mL 100 mg IV Q24H 04/22/24 Unknown History injection solution Allergy/AdvReac Type Severity Reaction Status Date / Time No Known Allergies Allergy Verified 02/18/24 04:45 Family History Mother Hypertension Diabetes Father Hypertension Diabetes Surgical History History of kidney transplant S/P unilateral above knee amputation S/P foot surgery S/P colostomy Social History housing: penitentiary Smoking Status: Never smoker alcohol intake: never substance use type: does not use ROS ROS Narrative as per HPI, o/w NC. Physical Exam Narrative General: Alert and oriented x3, NAD. HEENT: Normocephalic, atraumatic. Mucous membrane moist without erythema. PERRLA, EOMI. Hearing is intact. Neck: Supple, no JVD. Trachea is midline. No thyromegaly or lymphadenopathy. Cardiovascular: Normal S1, S2. No rubs, murmurs, or gallops. Respiratory: Lungs are clear to auscultation bilaterally. No wheezing, rhonchi, or rales. Abdomen: Normal bowel sounds, soft, nontender, no guarding or rebound, no organomegaly. Extremities: No clubbing, cyanosis, or edema. Patient status post left BKA. Musculoskeletal: Full passive range of motion, no joint swelling. Psychiatric: Normal mood and affect. Skin: Warm and dry. Neurologic: Cranial nerve II to XII are grossly intact. No focal neurologic deficits. Lab / Micro Data 04/23/24 07:03 04/23/24 07:03 Labs: Laboratory Results - last 24 hr 04/23/24 07:03: Thyroxine (T4) 12.2 H 04/23/24 12:04: POC Glucose 76 04/23/24 17:08: POC Glucose 70 L 04/23/24 20:40: PT 16.7 H, INR 1.4, APTT 33.9 04/24/24 00:26: POC Glucose 84 04/24/24 05:57: POC Glucose 96 04/24/24 06:07: APTT 87.2 H Micro: Microbiology 04/22/24 16:05 Blood Culture (Wb) - Line Draw Blood Culture - Preliminary
[2024-04-24 11:07] LABS: T3 Total - Triiodothyronine 0.73 ng/mL (0.6-1.81)
--- NOTE | 2024-04-24 11:35 | NUR.TO.PHY ---
Dialysis Coordinator called Dialysis Customer Resource Specialist at [facility], Valdo. Valdo confirmed that pt has been attending all dialysis appts. Once or twice he has had treatment shortened for outpatient appts. However, Valdo states that pt makes up the time on following appts. Pt receives dialysis 4x/wk at [facility].
--- NOTE | 2024-04-24 11:44 | NEURO.CONS ---
Assessment and Plan: Neuro Assessment/Plan CHINA GUILLEN III is a 38 M with a past medical history of ESRD on HD, DM2, L BKA, osteomyelitis on tobramycin, being evaluated by Teleneurology for encephalopathy . He is now improving. CTH and rEEG were unremarkable. Exam with normal orientation, attention, follows commands and participates in exam. Suspect toxic/metabolic encephalopathy that his improved following HD. Diagnosis: Toxic Metabolic Encephalopathy Plan: No further work up Neurology will sign off I personally attended this patient and spent a total time of 42 minutes evaluating this patient including clinical assessment, review of chart, medical history imaging, and determining appropriate treatment and workup. HPI Consult Data Date of Consult: 04/24/24 HPI Narrative HPI Narrative: CHINA GUILLEN, is a 38 M with history of ESRD on HD, DM2, L BKA, osteomyelitis on tobramycin who presents with encephalopathy. Presented from SNF with abnormal labs and encephalopathy. [facility] staff reported he was not acting himself. In the ED he seemed to be attending to external stimuli, staring at things that were not there, but was oriented. He was unsure why he was there. CTH was unremarkable. He was admitted and underwent dialysis yesterday. Today he is improving. He still is not sure why he is admitted but does report feeling confused yesterday. He is not able to provide much history involving his presentation. He was admitted last week with similar presentation. At that time felt to be consistent with toxic/metabolic encephalopathy/delirium. His medications were adjusted (decreased gabapentin dose and stopped other pain meds) and he improved. MRI during that admission was unremarkable. [facility] Medical History Decubitus ulcer Abscess Left ischial pressure sore Open wound of left buttock with complication Current use of [facility] anticoagulation Acute hyperkalemia Acute alteration in mental status Phantom limb syndrome with pain Paraplegia Metabolic encephalopathy Type 2 diabetes mellitus End-stage renal disease on hemodialysis Anticoagulant long-term use ESRD (end stage renal disease) on dialysis Hx of pulmonary embolus Anemia in chronic kidney disease, on chronic dialysis detention (current) use of 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 H/O deep venous thrombosis Osteomyelitis of pelvic region Lives in care home Anxiety Open wound Insulin dependent diabetes mellitus Uses wheelchair Injury of back Non-healing wound of amputation stump DM type 2, goal HbA1c < 7% 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, stage 4 Neurogenic bowel Chronic kidney disease with end stage renal failure on dialysis Kidney transplant failure Dependence on renal dialysis Pressure ulcer of left heel, unspecified stage Gastro-esophageal reflux disease without esophagitis Other pericardial effusion (noninflammatory) Other pulmonary embolism without acute cor pulmonale Hypertensive heart and chronic kidney disease with heart failure and stage 1 through stage 4 chronic kidney disease, or unspecified chronic kidney disease Depression Hyperlipemia Hypothyroidism Anemia in chronic kidney disease Neuromuscular dysfunction of bladder, unspecified Paraplegia, incomplete Other acute osteomyelitis, left ankle and foot End stage renal disease Home Medications ?Medication ?Instructions ?Recorded ?Last Taken ?Type acetaminophen 325 mg tablet 650 mg PO Q4H PRN PAIN/FEVER 01/02/23 04/21/23 History apixaban 5 mg tablet (Eliquis) 5 mg PO BID AFIB 01/02/23 07/16/23 History ascorbic acid (vitamin C) 500 mg 500 mg PO QHS SUPPLEMENT 01/02/23 12/08/23 History tablet atorvastatin 40 mg tablet 40 mg PO QHS CHOLESTEROL 01/02/23 12/08/23 History bisacodyl 10 mg rectal suppository 10 mg VT DAILY PRN CONSTIPATION 01/02/23 Unknown History carvedilol 12.5 mg tablet 12.5 mg PO BID HYPERTENSION 01/02/23 12/09/23 History dextrose 40 % oral gel (Glucose 15 g PO Q15M PRN HYPGLYCEMIA 01/02/23 Unknown History Gel) ondansetron HCl 4 mg tablet 4 mg PO Q8H PRN NAUSEA/VOMITING 01/02/23 Unknown History pantoprazole 40 mg tablet,delayed 40 mg PO DAILY ACID REFLUX 01/02/23 12/08/23 History release sennosides 8.6 mg-docusate sodium 1 tab-cap PO BID CONSTIPATION 01/02/23 07/16/23 History 50 mg capsule (Senna Plus) tacrolimus 1 mg capsule, 2 mg PO Q12H IMMUNOSUPPRESIVE 01/02/23 12/09/23 History immediate-release (Prograf) sevelamer HCl 800 mg tablet 2,400 mg PO TIDCM ESRD 04/21/23 07/16/23 History levothyroxine 150 mcg tablet 150 mcg PO DAILY@0600 THYROID 07/16/23 12/09/23 History acetaminophen 650 mg rectal 650 mg VT Q4H PRN PAIN/FEVER 08/06/23 Unknown History suppository magnesium hydroxide 400 mg/5 mL 30 ml PO DAILY PRN CONSTIPATION 08/06/23 Unknown History oral suspension (Milk of Magnesia) ciclopirox 8 % topical solution 1 applic topical QHS NAIL FUNGUS 11/17/23 Unknown History diphenhydramine-zinc acetate 2 1 applic topical Q6H PRN ITCHING 12/06/23 Unknown History %-0.1 % topical cream (Benadryl Extra Strength) escitalopram oxalate 10 mg tablet 15 mg PO QHS DEPRESSION 12/30/23 Unknown History (Lexapro) insulin lispro 100 unit/mL 1 sliding scale dose subcut TIDCM 03/22/24 Unknown History subcutaneous pen vitamin B complex-vitamin C-folic 1 tab PO QPM HEALTH MAINTENANCE 03/22/24 Unknown History acid 0.8 mg tablet guaifenesin 100 mg/5 mL oral 200 mg PO Q4H PRN COUGH/CONGESTION 03/29/24 Unknown History liquid (Adult Tussin Chest Congestion) aluminum-magnesium hydroxide 200 30 ml PO Q4H PRN GI DISTRESS 04/13/24 Unknown History mg-200 mg/5 mL oral suspension glucagon HCl 1 mg solution for 1 mg IM Q20M PRN HYPOGLYCEMIA 04/13/24 Unknown History injection (Glucagon (HCl) Emergency Kit) hydralazine 50 mg tablet 50 mg PO TID BLOOD PRESSURE 04/13/24 Unknown History melatonin 3 mg tablet 3 mg PO Q24H PRN INSOMNIA 04/13/24 Unknown History polyethylene glycol 3350 17 17 g PO Q24H PRN CONSTIPATION 04/13/24 Unknown History gram/dose oral powder (Miralax) gabapentin 100 mg capsule 100 mg PO BID #0 caps 04/16/24 Unknown Rx sodium phosphates 19 gram-7 118 ml VT DAILY PRN constipation 04/22/24 Unknown History gram/118 mL enema (Fleet Enema) tobramycin sulfate 40 mg/mL 100 mg IV Q24H 04/22/24 Unknown History injection solution Allergy/AdvReac Type Severity Reaction Status Date / Time No Known Allergies Allergy Verified 02/18/24 04:45 Family History Mother Hypertension Diabetes Father Hypertension Diabetes Surgical History History of kidney transplant S/P unilateral above knee amputation S/P foot surgery S/P colostomy Social History housing: care home Smoking Status: Never smoker alcohol intake: never substance use type: does not use Vital Signs Vital Signs Vital Signs: 04/23/24 12:00 04/23/24 12:30 04/23/24 13:00 Temperature Temperature Source Pulse Rate 92 93 95 Respiratory Rate 14 12 14 Respiratory Effort Respiratory Depth Respiratory Pattern Blood Pressure 180/110 H 152/101 H 123/78 H Blood Pressure Mean 133 118 93 Blood Pressure Source Monitor Monitor Blood Pressure Position Semi-Fowlers Semi-Fowlers Blood Pressure Location Right Arm Right Arm Pulse Ox 98 95 97 Oxygen Delivery Method Room Air Room Air Room Air 04/23/24 13:21 04/23/24 16:00 04/23/24 16:38 Temperature 97.6 F L 98.3 F Temperature Source Temporal Temporal Pulse Rate 92 101 H Respiratory Rate 12 16 Respiratory Effort Normal Non-Labored Normal Non-Labored Respiratory Depth Normal Normal Respiratory Pattern Normal Normal Blood Pressure 137/104 H 152/96 H Blood Pressure Mean 115 114 Blood Pressure Source Monitor Monitor Blood Pressure Position Semi-Fowlers Semi-Fowlers Blood Pressure Location Right Arm Right Arm Pulse Ox 97 95 Oxygen Delivery Method Room Air Room Air Room Air 04/23/24 20:41 04/23/24 22:38 04/24/24 03:59 Temperature 98 F 97.4 F L Temperature Source Temporal Temporal Pulse Rate 95 95 Respiratory Rate 17 16 Respiratory Effort Normal Non-Labored Respiratory Depth Normal Respiratory Pattern Normal Blood Pressure 158/80 H 172/87 H Blood Pressure Mean 106 115 Blood Pressure Source Monitor Monitor Blood Pressure Position Semi-Fowlers Semi-Fowlers Blood Pressure Location Right Arm Right Arm Pulse Ox 96 99 Oxygen Delivery Method Room Air Room Air Room Air 04/24/24 04:07 04/24/24 04:12 04/24/24 05:58 Temperature 97.7 F L Temperature Source Temporal Pulse Rate 95 96 Respiratory Rate 16 Respiratory Effort Normal Non-Labored Respiratory Depth Normal Respiratory Pattern Normal Blood Pressure 172/87 H 158/94 H Blood Pressure Mean 115 Blood Pressure Source Monitor Blood Pressure Position Semi-Fowlers Blood Pressure Location Right Arm Pulse Ox 99 Oxygen Delivery Method Room Air Room Air 04/24/24 07:38 04/24/24 08:06 04/24/24 08:37 Temperature 97.9 F Temperature Source Temporal Pulse Rate 92 90 97 Respiratory Rate 13 12 12 Respiratory Effort Normal Non-Labored Respiratory Depth Normal Respiratory Pattern Normal Blood Pressure 151/87 H 191/93 H 137/75 H Blood Pressure Mean 108 125 95 Blood Pressure Source Monitor Monitor Monitor Blood Pressure Position Semi-Fowlers Semi-Fowlers Semi-Fowlers Blood Pressure Location Right Arm Right Arm Right Arm Pulse Ox 96 Oxygen Delivery Method Room Air Room Air Room Air 04/24/24 09:00 04/24/24 09:03 04/24/24 09:31 Temperature 97.6 F L Temperature Source Temporal Pulse Rate 96 96 102 H Respiratory Rate 13 13 12 Respiratory Effort Respiratory Depth Respiratory Pattern Blood Pressure 154/83 H 154/83 H 185/96 H Blood Pressure Mean 106 106 125 Blood Pressure Source Monitor Monitor Monitor Blood Pressure Position Supine Semi-Fowlers Semi-Fowlers Blood Pressure Location Right Arm Right Arm Right Arm Pulse Ox 96 Oxygen Delivery Method Room Air Room Air Room Air 04/24/24 09:52 04/24/24 10:01 04/24/24 10:35 Temperature Temperature Source Pulse Rate 98 97 Respiratory Rate 13 13 Respiratory Effort Respiratory Depth Respiratory Pattern Blood Pressure 183/96 H 188/98 H Blood Pressure Mean 125 128 Blood Pressure Source Monitor Monitor Blood Pressure Position Semi-Fowlers Semi-Fowlers Blood Pressure Location Right Arm Right Arm Pulse Ox Oxygen Delivery Method Room Air Room Air Room Air 04/24/24 11:20 Temperature 97.9 F Temperature Source Temporal Pulse Rate 98 Respiratory Rate 12 Respiratory Effort Normal Non-Labored Respiratory Depth Normal Respiratory Pattern Normal Blood Pressure 181/105 H Blood Pressure Mean 130 Blood Pressure Source Monitor Blood Pressure Position Semi-Fowlers Blood Pressure Location Right Arm Pulse Ox 99 Oxygen Delivery Method Room Air Weight Weight: 116.2 kg Body Mass Index (BMI) 34.7 EEG Results Procedure Details EEG Procedure Details: CHINA GUILLEN III is a 38 year old M with a past medical history of , who presents for evaluation of Electroencephalogram on DATE at TIME Physical Exam Neuro Sensorium / Orientation: awake, alert, oriented to person, oriented to place and oriented to time Cranial Nerves: CN normal except as noted Coordination / Balance: [id number] test normal and [id number] test normal Speech: speech normal Gait (Neuro): unable to assess gait and other L BKA Sensory Exam: extremities light-touch: decreased (Right lower leg - this is chronic 2/2 neuropathy) Motor Exam: no pronator drift, no tremor, no asterixis and no movement abnormalities noted Pupil Exam: Normal Pupillary Reactivity/Response: bilateral Psych cooperative, affect normal and denies hallucinations Lab / Micro Data 04/23/24 07:03 04/23/24 07:03 Labs: Laboratory Results - last 24 hr 04/23/24 07:03: Thyroxine (T4) 12.2 H, Total T3 0.73 04/23/24 12:04: POC Glucose 76 04/23/24 17:08: POC Glucose 70 L 04/23/24 20:40: PT 16.7 H, INR 1.4, APTT 33.9 04/24/24 00:26: POC Glucose 84 04/24/24 05:57: POC Glucose 96 04/24/24 06:07: APTT 87.2 H Micro: Microbiology 04/23/24 00:05 Urine Catheter - Hurst Urine Culture - Preliminary Gram negative polo Gram negative polo#2 GNR 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 04/22/24 16:05 Blood Culture (Wb) - Line Draw Blood Culture - Preliminary Active Medications Active Medications Active Medications: Current Medications Generic Name Dose Route Start Last Admin Trade Name Freq PRN Reason Stop Dose Admin Acetaminophen 650 mg 04/22/24 14:02 Acetaminophen 325 Mg Tablet PO Q6H PRN PRN Pain 1-10 Or Fever>100.7 Apixaban 5 mg 04/22/24 22:00 04/23/24 10:17 Apixaban 5 Mg Tablet PO Not Given BID TARUN Atorvastatin Calcium 40 mg 04/23/24 22:00 Atorvastatin Calcium 40 Mg Tablet PO QHS TARUN Bisacodyl 10 mg 04/22/24 14:36 Bisacodyl 10 Mg Suppository RC DAILY PRN CONSTIPATION Carvedilol 12.5 mg 04/23/24 22:00 Carvedilol 12.5 Mg Tablet PO BID TARUN Protocol Escitalopram Oxalate 15 mg 04/23/24 22:00 Escitalopram Oxalate 10 Mg Tablet PO QHS [facility] Glucagon 1 mg 04/22/24 14:36 Glucagon 1 Mg/Ml Syringe IM X1 PRN Hypoglycemia Protocol Hemodialysis Solution 6 bag 04/24/24 07:15 04/24/24 07:58 Pureflow B 2k Dialysis Soln 1 Bag PF 04/24/24 19:09 6 bag UD TARUN Administration Protocol Heparin Sodium (Porcine) 0 unit 04/23/24 20:05 Heparin Injection (Vial) 5,000 Unit/Ml Vial IV UD PRN dose adjustment Protocol Hydralazine HCl 50 mg 04/23/24 22:00 Hydralazine 50 Mg Tablet PO TID [facility] Protocol Hydralazine HCl 10 mg 04/23/24 19:58 04/24/24 04:07 Hydralazine 20 Mg/Ml Vial IV 10 mg Q4H PRN PRN Administration SBP > 160 Protocol Dextrose 250 mls @ 0 mls/hr 04/22/24 14:36 Dextrose 10%-Water IV .Q0M PRN HYPOGLYCEMIA Protocol As Directed Pantoprazole Sodium 40 mg/ 110 mls @ 330 mls/hr 04/23/24 22:00 04/23/24 20:51 Sodium Chloride IV Infused Q12 TARUN Infusion Dextrose/Sodium Chloride 1,000 mls @ 50 mls/hr 04/23/24 20:00 04/23/24 20:25 Dextrose 5%/0.9% Nacl IV 04/24/24 15:59 50 mls/hr .Q20H TARUN Administration Protocol Heparin Sodium/Dextrose 25,000 units in 250 mls @ 16 mls/hr 04/23/24 20:05 04/24/24 06:42 CONT INF 1,500 units/hr .[id number] TARUN 15 mls/hr Titration Protocol As Directed Tobramycin Sulfate 100 mg/ 52.5 mls @ 100 mls/hr 04/24/24 12:00 Dextrose IV 04/24/24 12:31 X1 ONE Insulin Human Lispro 0 unit 04/22/24 18:00 04/24/24 06:02 Insulin Lispro 100 Unit/Ml Insuln.Pen SC Not Given Q6 [facility] Protocol Levothyroxine Sodium 150 mcg 04/24/24 06:00 Levothyroxine 150 Mcg Tablet PO DAILY@0600 [facility] Ondansetron HCl 4 mg 04/22/24 14:02 Ondansetron 4 Mg/2 Ml Vial IV Q8H PRN PRN NAUSEA/VOMITING Sevelamer Carbonate 2,400 mg 04/23/24 17:00 04/23/24 17:09 Sevelamer Carbonate 800 Mg Tablet PO Not Given TIDCM TARUN Sodium Chloride 10 - 40 ml 04/22/24 14:07 04/24/24 04:07 0.9% Saline Lock 10 Ml Syringe IV 10 ml UD PRN Administration SALINE FLUSH Sodium Chloride 1,000 ml 04/24/24 07:10 04/24/24 07:58 0.9% Normal Saline 1,000 Ml Iv.Soln. OPERA.SITE 04/24/24 19:08 1,000 ml X1 TARUN Administration Sodium Chloride 200 ml 04/24/24 07:08 0.9% Normal Saline 1,000 Ml Iv.Soln. IV 04/24/24 19:08 X1 PRN to maintain SBP >90mmHg during Dialysis Sodium Hypochlorite 0 ml 04/24/24 10:00 Dakin's Dalia Half Strength (=0.25%) TOPICAL DAILY TARUN Protocol Tacrolimus 2 mg 04/23/24 22:00 04/23/24 22:18 Tacrolimus Anhydrous 1 Mg Capsule PO Not Given BID TARUN
[2024-04-24] MEDS: Pantoprazole Sodium 40 MG in 0.9% Normal Saline (100mL MB+) 100 ML 330 MG IV (11:49)
[2024-04-24] MEDS: Tacrolimus Anhydrous 1 MG Capsule 2 MG PO ×2 (11:50→20:57)
--- NOTE | 2024-04-24 11:51 | CASEMGMT ---
Discharge Planning [facility] notified of possible wknd admission. Bettina placed on chart. Selina Sylvester DC Planning Asst.
[2024-04-24 12:14] LABS: Bedside Glucose 88 mg/dL (74-106)
[2024-04-24] MEDS: Tobramycin 100 MG in Dextrose 5%-Water (50mL Bag) 50 ML IV (12:14)
--- NOTE | 2024-04-24 12:47 | PN.HOSP_ITS ---
Reason for Visit Reason for Visit: Diagnoses Encephalopathy, unspecified (04/22/24) Hypertensive emergency (04/22/24) Subjective Subjective Patient was seen and examined today, he is more alert than yesterday and he is able to have oral intake today. Patient is being dialyzed today, patient's blood culture was reported as being positive but then today it was corrected to read negative. Objective Data Objective Data Vital Signs: Vital Signs Temp Pulse Resp BP Pulse Ox O2 Del Method 97.9 F 98 12 181/105 H 98 Room Air 04/24/24 11:20 04/24/24 11:20 04/24/24 11:20 04/24/24 11:20 04/24/24 11:47 04/24/24 11:47 Oxygen Delivery Method Room Air Weight: 116.2 kg Body Mass Index (BMI) 34.7 Intake & Output: Intake and Output for Last 24 Hours 04/22/24 04/23/24 04/24/24 23:59 23:59 23:59 Intake Total 0 / 0 1212.50 / 1212.50 317.65 / 317.65 Output Total 0 / 500 3400 / 3400 2100 / 2100 Balance 0 / -500 -2187.50 / -2187.50 -1782.35 / -1782.35 Lab / Micro Data 04/23/24 07:03 04/23/24 07:03 Labs: Laboratory Results - last 24 hr 04/23/24 07:03: Thyroxine (T4) 12.2 H, Total T3 0.73 04/23/24 12:04: POC Glucose 76 04/23/24 17:08: POC Glucose 70 L 04/23/24 20:40: PT 16.7 H, INR 1.4, APTT 33.9 04/24/24 00:26: POC Glucose 84 04/24/24 05:57: POC Glucose 96 04/24/24 06:07: APTT 87.2 H 04/24/24 11:49: POC Glucose 88 Micro: Microbiology 04/23/24 00:05 Urine Catheter - [place] Urine Culture - Preliminary Gram negative polo Gram negative 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#2 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 04/22/24 16:05 Blood Culture (Wb) - Line Draw Blood Culture - Preliminary Physical Exam Const alert and no apparent distress Constitutional Narrative: Patient is alert, he answers simple questions appropriately General Appearance: cooperative, well kempt and well developed Orientation / Consciousness: awake HEENT normocephalic, head/scalp atraumatic and moist oral mucous membranes Eyes PERRL, EOMs intact bilaterally and conjunctivae normal Neck supple, no JVD, thyroid normal and no carotid bruits General: trachea midline Resp normal respiratory effort, no retractions, no use of accessory muscles and clear to auscultation bilaterally Auscultation: Negative for rales, rhonchi or wheezes Cardio regular rate, regular rhythm, S1 normal heart sound, S2 normal heart sound, no murmurs, no rub and no gallops GI normal to inspection, nondistended, normoactive bowel sounds, soft to palpation, non-tender and non-distended Extremity Extremity Narrative: 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 Metabolic encephalopathy-etiology unclear at this point, continue to provide supportive care, patient's mental status is improved compared to yesterday #2 end-stage renal disease requiring dialysis-nephrology is participating in his care, he had dialysis today #3 osteomyelitis of the pelvis-patient was given his usual dose of tobramycin today, he will return to the retirement on this antibiotic-stop date appears to be May 25, 2024 #4 type 2 diabetes-patient's blood sugars will be monitored, sliding scale insulin will be administered as indicated #5 essential hypertension-patient will remain on his current medications #6 hypothyroidism-patient remains on Synthroid, patient's T4 was slightly elevated, his T3 was normal, again patient's TSH was elevated at 6.7 #7 paraplegia-complicates care, management, recovery, and prognosis Total clinical time spent by myself addressing the patient's medical issues, reviewing all of his data, and collaborating with patient's care team: 35 minutes Charges/Coding Visit Charges Inpatient E&M: 48355 Subs Hosp L2
[2024-04-24] MEDS: hydrALAZINE 50 MG Tablet PO ×2 (13:39→20:57)
[2024-04-24] MEDS: Cefdinir 300 MG Capsule PO (16:30)
[2024-04-24 16:54] LABS: Bedside Glucose 83 mg/dL (74-106)
[2024-04-24] MEDS: SEVELAMER CARBONATE 800 MG TABLET 2400 MG PO (17:35)
[2024-04-24] MEDS: APIXABAN 5 MG TABLET PO (20:56)
[2024-04-24] MEDS: Carvedilol 12.5 MG Tablet PO (20:56)
[2024-04-24] MEDS: Acetaminophen 325 MG Tablet 650 MG PO (20:56)
[2024-04-24] MEDS: Escitalopram Oxalate 10 MG Tablet 15 MG PO (20:58)
[2024-04-24 21:45] LABS: Bedside Glucose 109 mg/dL (74-106)
[2024-04-25] VITALS (8 sets, daily range): BP systolic 109–156; BP diastolic 64–99; PULSE 85–97; RESP 16–18; TEMP 36–36.4; O2SAT 98–100
--- NOTE | 2024-04-25 02:04 | PCM.HOSP.N ---
Hospitalist Note Patient complaining of amputation stump pain, will trial gabapentin and if effective and tolerated may consider continuing.
[2024-04-25] MEDS: Gabapentin 100 MG Capsule PO (04:43)
[2024-04-25] MEDS: hydrALAZINE 50 MG Tablet PO ×3 (06:23→22:18)
[2024-04-25] MEDS: Levothyroxine 150 MCG Tablet PO (06:23)
[2024-04-25] MEDS: Acetaminophen 325 MG Tablet 650 MG PO (06:31)
[2024-04-25 07:07] LABS: Bedside Glucose 129 mg/dL (74-106)
[2024-04-25 08:02] LABS: Absolute Lymphocyte Count 1.32 X10^3/uL (0.83-4.51); Absolute Neutrophil Count 4.1 X10^3/uL (2.0-7.7); Basophil# 0.06 X10^3/uL; Basophil% 0.9 % (0-1); Eosinophil# 0.55 X10^3/uL; Eosinophils% 8.1 % (0-5); Hematocrit 36.5 % (40-54); Hemoglobin 11.1 g/dL (13.0-16.5); Lymphocyte # 1.32 X10^3/ul (0.83-4.51); Lymphocyte % 19.3 % (19-41); Mean Corp Hgb Conc 30.4 g/dL (32-36); Mean Corpuscular Hgb 27.9 pg (27.0-32.0); Mean Corpuscular Volume 91.7 fL (80-94); Mean Platelet Vol. 11.5 fl (6.2-12.0); Monocyte# 0.79 X10^3/uL; Monocyte% 11.6 % (0-10); NRBC Flagged by Analyzer 0 % (0-5); Platelet Count 118 K/mm3 (150-450); RBC Distribution Width CV 17.1 % (11.6-14.6); RBC Distribution Width SD 57.6 fl (35.1-43.9); Red Blood Count 3.98 M/mm3 (4.6-6.2); White Blood Count 6.8 K/mm3 (4.4-11.0)
[2024-04-25] MEDS: SEVELAMER CARBONATE 800 MG TABLET 2400 MG PO ×3 (10:22→17:15)
[2024-04-25] MEDS: Carvedilol 12.5 MG Tablet PO ×2 (10:23→22:18)
[2024-04-25] MEDS: APIXABAN 5 MG TABLET PO ×2 (10:23→22:18)
[2024-04-25] MEDS: Cefdinir 300 MG Capsule PO (10:24)
[2024-04-25] MEDS: Tacrolimus Anhydrous 1 MG Capsule 2 MG PO ×2 (10:24→22:18)
[2024-04-25] MEDS: Insulin Lispro 100 UNIT/ML INSULN.PEN SC ×2 (11:15→17:13)
[2024-04-25 11:34] LABS: Bedside Glucose 178 mg/dL (74-106)
--- NOTE | 2024-04-25 16:29 | PN.HOSP_ITS ---
Reason for Visit Reason for Visit: Diagnoses Encephalopathy, unspecified (04/22/24) Hypertensive emergency (04/22/24) End stage renal disease (04/22/24) Dependence on renal dialysis (04/22/24) Subjective Subjective Patient was seen and examined today, his blood pressure has been under control at this time, patient's urine culture grew out 3 different organisms 1 of which appears to be Pseudomonas. He is alert today and answer simple questions for this examiner. Patient is on low-flow nasal cannula oxygen per his request. Nursing states that the patient actually does not need the oxygen. Objective Data Objective Data Vital Signs: Vital Signs Temp Pulse Resp BP Pulse Ox O2 Del Method O2 Flow Rate 97.6 F L 85 16 112/66 99 Nasal Cannula 1 04/25/24 15:48 04/25/24 15:48 04/25/24 15:48 04/25/24 15:48 04/25/24 15:48 04/25/24 15:48 04/25/24 15:48 Oxygen Flow Rate (L/min) 1 Oxygen Delivery Method Nasal Cannula Weight: 116.2 kg Body Mass Index (BMI) 34.7 Intake & Output: Intake and Output for Last 24 Hours 04/23/24 04/24/24 04/25/24 23:59 23:59 23:59 Intake Total 1212.50 / 1212.50 1420.15 / 1670.15 590 / 590 Output Total 3400 / 3400 2100 / 2100 0 / 0 Balance -2187.50 / -2187.50 -679.85 / -429.85 590 / 590 Lab / Micro Data 04/25/24 07:40 04/23/24 07:03 Labs: Laboratory Results - last 24 hr 04/24/24 16:23: POC Glucose 83 04/24/24 21:06: POC Glucose 109 H 04/25/24 06:29: POC Glucose 129 H 04/25/24 07:40: WBC 6.8, RBC 3.98 L, Hgb 11.1 L, Hct 36.5 L, MCV 91.7, MCH 27.9, MCHC 30.4 L D, RDW Std Deviation 57.6 H, RDW Coeff of Shanta 17.1 H, Plt Count 118 L, MPV 11.5, Immature Gran % (Auto) 0.100, Neut % (Auto) 60.0, Lymph % (Auto) 19.3, Major % (Auto) 11.6 H, Eos % (Auto) 8.1 H, Baso % (Auto) 0.9, Absolute Neuts (auto) 4.1, Absolute Lymphs (auto) 1.32, Nucleated RBC % 0 04/25/24 11:14: POC Glucose 178 H Micro: Microbiology 04/23/24 00:05 Urine Catheter - [place] Urine Culture - Preliminary GNR Poss Pseudomonas sp Gram negative polo#2 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 04/22/24 16:05 Blood Culture (Wb) - Line Draw Blood Culture - Preliminary Physical Exam Const alert and no apparent distress Constitutional Narrative: Patient is alert and answers simple questions appropriately General Appearance: cooperative, well kempt and well developed Orientation / Consciousness: awake, oriented to person and oriented to place HEENT normocephalic, head/scalp atraumatic and moist oral mucous membranes Eyes PERRL, EOMs intact bilaterally and conjunctivae normal Neck supple, no JVD and thyroid normal General: trachea midline Resp normal respiratory effort, no retractions, no use of accessory muscles and clear to auscultation bilaterally Auscultation: Negative for rales, rhonchi or wheezes Cardio regular rate, regular rhythm, S1 normal heart sound, S2 normal heart sound, no murmurs, no rub and no gallops GI normal to inspection, nondistended, normoactive bowel sounds, soft to palpation, non-tender and non-distended Extremity Extremity Narrative: Patient has a left below the knee amputation which is remote Skin no rashes or lesions noted General Skin Exam: no breakdown Neuro CN's II-XII intact bilaterally, no focal motor deficits and no sensory deficits noted Sensorium / Orientation: awake, alert, oriented to person and oriented to place Speech: speech normal Psych affect normal Assessment & Plan Assessment/Plan (1) Encephalopathy: PLAN: Plan 1. Metabolic encephalopathy-etiology unclear at this point, continue to provide supportive care, patient's mental status is improved compared to yesterday, he does answer simple questions appropriately #2 end-stage renal disease requiring dialysis-nephrology is participating in his care #3 osteomyelitis of the pelvis-patient was given his usual dose of tobramycin today, he will return to the intermediate on this antibiotic-stop date appears to be May 25, 2024 #4 type 2 diabetes-patient's blood sugars will be monitored, sliding scale insulin will be administered as indicated #5 essential hypertension-patient will remain on his current medications #6 hypothyroidism-patient remains on Synthroid, patient's T4 was slightly elevated, his T3 was normal, again patient's TSH was elevated at 6.7, I do not feel he needs his thyroid medication adjusted #7 paraplegia-complicates care, management, recovery, and prognosis #8 acute cystitis-I placed the patient on Omnicef yesterday, we are waiting for final urine cultures to result, patient is on tobramycin which should cover Pseudomonas and most gram-negative organisms. Total clinical time spent by myself addressing the patient's medical issues, reviewing all of his data, and collaborating with patient's care team: 35 minutes Charges/Coding Visit Charges Inpatient E&M: 22747 Subs Hosp L2
[2024-04-25 17:36] LABS: Bedside Glucose 163 mg/dL (74-106)
[2024-04-25] MEDS: Escitalopram Oxalate 10 MG Tablet 15 MG PO (22:18)
[2024-04-25 23:17] LABS: Bedside Glucose 141 mg/dL (74-106)
[2024-04-26 04:33] VITALS: BP 133/80; PULSE 79; RESP 19; TEMP 36.3; O2SAT 99
[2024-04-26 06:48] VITALS: BP 132/52; PULSE 88; RESP 19; TEMP 36.6; O2SAT 100
[2024-04-26 06:49] VITALS: BP 132/52; PULSE 88
[2024-04-26] MEDS: hydrALAZINE 50 MG Tablet PO (06:49)
[2024-04-26] MEDS: Levothyroxine 150 MCG Tablet PO (06:49)
[2024-04-26 07:05] LABS: Bedside Glucose 146 mg/dL (74-106)
[2024-04-26 07:20] VITALS: O2SAT 99
[2024-04-26] MEDS: SEVELAMER CARBONATE 800 MG TABLET 2400 MG PO ×2 (08:37→11:10)
[2024-04-26 10:58] VITALS: BP 130/78; PULSE 93; RESP 16; TEMP 36.6; O2SAT 99
[2024-04-26] MEDS: Carvedilol 12.5 MG Tablet PO (11:01)
[2024-04-26] MEDS: APIXABAN 5 MG TABLET PO (11:02)
[2024-04-26] MEDS: Tacrolimus Anhydrous 1 MG Capsule 2 MG PO (11:02)
[2024-04-26] MEDS: Cefdinir 300 MG Capsule PO (11:03)
[2024-04-26] MEDS: Nystatin Powder 15gm Bottle 1 APPLIC TOPICAL (11:10)
--- NOTE | 2024-04-26 11:10 | PCM.TXEXTCAR ---
Diet Diet Order/Speech Therapy: 04/24/24 12:14 ADA [Diet: Consistent Carb - Calorie Controlled] Diet Comments: supervised feed, deliver tray to nurses station How many daily calories?: 2000 calorie Routine Orders/Code Status Code Status: Full Code Wound(s) lt distal ischium: Wound Type: Pressure Injury left ischium: Wound Type: Pressure Injury Dressing Change: Wet to Dry Dressing Problem/Diagnosis (1) Encephalopathy: Status: Acute Code(s): G93.40 - Encephalopathy, unspecified Plan 1. Metabolic encephalopathy-etiology unclear at this point, continue to provide supportive care, patient's mental status is improved compared to yesterday, he does answer simple questions appropriately #2 end-stage renal disease requiring dialysis-nephrology is participating in his care #3 osteomyelitis of the pelvis-patient was given his usual dose of tobramycin today, he will return to the detention on this antibiotic-stop date appears to be May 25, 2024 #4 type 2 diabetes-patient's blood sugars will be monitored, sliding scale insulin will be administered as indicated #5 essential hypertension-patient will remain on his current medications #6 hypothyroidism-patient remains on Synthroid, patient's T4 was slightly elevated, his T3 was normal, again patient's TSH was elevated at 6.7, I do not feel he needs his thyroid medication adjusted #7 paraplegia-complicates care, management, recovery, and prognosis #8 acute cystitis-I placed the patient on Omnicef yesterday, we are waiting for final urine cultures to result, patient is on tobramycin which should cover Pseudomonas and most gram-negative organisms. #9 urine colonization with multiple organisms-I talked with infectious diseases (Dr. Mederios) on 04/26/2024, since the patient's mental status improved during his hospitalization without being on an antibiotic that covers these organisms, he does not think that this is an active cystitis, he thinks it is colonization. I contacted the patient's physician Dr. Hutchins and discussed this with her and also discussed the fact that the family would like him transferred to a tertiary facility if his encephalopathy returns. I also talked with Dr. Ca about the situation. Total clinical time spent by myself addressing the patient's medical issues, reviewing all of his data, and collaborating with patient's care team: 35 minutes Allergies/Procedures Done in Hospital Allergies No Known Allergies Allergy (Verified 02/18/24 04:45) Procedures: Dialysis Type of Care/Length of Stay Estimated LOS: More Than 30 Days Type of Care Needed: Intermediate Rehab Potential: Fair Prognosis: Fair Additional Orders/Day of Discharge H&P will serve as current which was dated: 04/22/24 Day of Discharge: 04/26/24 Dietary and Speech Recommendations Dietitian Recommendations/Changes: Recommend advanced diet as tolerated, 2000 calorie control; renal general diet. Will add 120ml PO Nepro TID with meals, as diet is advanced. Will obtain PO intake at time of follow-up to assess malnutrition. Will monitor weight, as available. Reviewed and approved by Rhianna Dawson RDN, LD. Discharge Plan Admission Admit Date/Time: 04/22/24 13:42 Primary Reason for Your Visit: Encephalopathy Attending Provider: Coy Wayne Primary Care Provider: Vanessa Hutchins Consulting Providers: Ansley Peña; Jaxson Easley; Cely Del Angel; Christin Shane; Osman Jacome; Bereket Porter; Jayson Salgado; ISAI PUENTE; Kenyetta Rahman; Sarah Bunn; Guilherme Cross; Aaliyah Fregoso; Denver Saunders Discharge Orders/Prescriptions Prescriptions: New nystatin [Nyamyc] 100,000 unit/gram Powder 1 applic topical BID Qty: 0 0RF Protocol: *Topical Application Instructions APPLICATION INSTRUCTIONS: apply to groin and abdominal folds Continued atorvastatin 40 mg Tablet 40 mg PO QHS acetaminophen 325 mg Tablet 650 mg PO Q4H PRN (Reason: PAIN/FEVER) carvedilol 12.5 mg Tablet 12.5 mg PO BID ascorbic acid (vitamin C) 500 mg Tablet 500 mg PO QHS bisacodyl 10 mg Suppository 10 mg KS DAILY PRN (Reason: CONSTIPATION ) dextrose [Glucose Gel] 40 % Gel 15 g PO Q15M PRN (Reason: HYPGLYCEMIA ) Rx Instructions: until symptoms of low blood sugar are controlled Eliquis 5 mg Tablet 5 mg PO BID pantoprazole 40 mg Tablet,Delayed Release (Dr/Ec) 40 mg PO DAILY tacrolimus [Prograf] 1 mg Capsule 2 mg PO Q12H ondansetron HCl 4 mg Tablet 4 mg PO Q8H PRN (Reason: NAUSEA/VOMITING ) Senna Plus 8.6-50 mg Capsule 1 tab-cap PO BID sevelamer HCl 800 mg tablet 2,400 mg PO TIDCM Rx Instructions: must administer with a meal/food levothyroxine 150 mcg tablet 150 mcg PO DAILY@0600 acetaminophen 650 mg suppository 650 mg KS Q4H PRN (Reason: PAIN/FEVER) magnesium hydroxide [Milk of Magnesia] 400 mg/5 mL suspension 30 ml PO DAILY PRN (Reason: CONSTIPATION ) Benadryl Extra Strength 2-0.1 % cream 1 applic topical Q6H PRN (Reason: ITCHING ) ciclopirox 8 % solution 1 applic topical QHS Rx Instructions: APPLY ONE APPLICATION TOPICALLY TO RIGHT THUMB AT BEDTIME FOR NAIL FUNGUS escitalopram oxalate [Lexapro] 10 mg tablet 15 mg PO QHS B complex-vitamin C-folic acid 0.8 mg tablet 1 tab PO QPM insulin lispro 100 unit/mL insulin pen 1 sliding scale dose subcut TIDCM Protocol: 6. Sliding Scale Insulin Custom Condition: 180-200 mg/dl range Dose/Route: 2 Number of Units Condition: 201-250 Dose/Route: 3 Condition: 251-300 Dose/Route: 4 Condition: 301-350 Dose/Route: 5 Condition: 351-400 Dose/Route: 6 Condition: 401-450 Dose/Route: 7 Condition: >451 Dose/Route: call MD Protocol Text: Custom Sliding Scale guaifenesin [Adult Tussin Chest Congestion] 100 mg/5 mL liquid 200 mg PO Q4H PRN (Reason: COUGH/CONGESTION ) Fleet Enema 19-7 gram/118 mL enema 118 ml KS DAILY PRN (Reason: constipation) tobramycin sulfate 40 mg/mL solution 100 mg IV Q24H Rx Instructions: 100mg given with dialysis on Mon, Tues, Thurs, and Fri. Twice weekly bmp, cbc, tobramycin trough prior to HD, and esr. Fax to [phone]. aluminum-magnesium hydroxide 200-200 mg/5 mL suspension 30 ml PO Q4H PRN (Reason: GI DISTRESS ) glucagon HCl [Glucagon (HCl) Emergency Kit] 1 mg recon soln 1 mg IM Q20M PRN (Reason: HYPOGLYCEMIA ) polyethylene glycol 3350 [Miralax] 17 gram/dose powder 17 g PO Q24H PRN (Reason: CONSTIPATION ) melatonin 3 mg Tablet 3 mg PO Q24H PRN (Reason: INSOMNIA ) hydralazine 50 mg Tablet 50 mg PO TID Discontinued gabapentin 100 mg Capsule 100 mg PO BID Qty: 0 0RF Referrals / Follow Up: Vanessa Hutchins MD [Primary Care Provider] - Disposition Disposition (needs filled in before D/C Order can be placed): NonSkilled NH/Intermed Care
[2024-04-26] MEDS: Insulin Lispro 100 UNIT/ML INSULN.PEN SC (11:14)
--- NOTE | 2024-04-26 11:23 | PCM.DC.SUM ---
Providers Date of Admission: 04/22/24 Date of Discharge: 04/26/24 Primary Care Physician: Dr. Vanessa Hutchins MD Consultations 04/22/24 13:48 Consult: Nephrology Routine Consulting Provider: Ansley Peña Reason for Consult: ESRD on HD, Confused, delirium EMERGENT Consult: No MD Notified: Yes Date Notified: 04/22/24 Time Notified: 13:48 Method of Notification: Text 04/22/24 14:02 neuro [Consult: Tele-Neurology] Routine Consulting Provider: [facility] Reason for Consult: encephalopathy, hallucination EMERGENT Consult: No MD Notified: Yes Date Notified: 04/22/24 Time Notified: 14:12 Method of Notification: Text Nursing Unit Staff Notify [facility] of Tele-Neurology Consult: Yes 04/22/24 15:27 Consult: Onc/Wound/stone unloader Routine Comment: Reason For Visit: ACUTE DELIRIUM, HYPERTENSIVE URGENCY Diagnosis Discharge Diagnosis (1) Encephalopathy: Status: Acute Code(s): G93.40 - Encephalopathy, unspecified Plan 1. Metabolic encephalopathy-etiology unclear at this point, continue to provide supportive care, patient's mental status is improved compared to yesterday, he does answer simple questions appropriately #2 end-stage renal disease requiring dialysis-nephrology is participating in his care #3 osteomyelitis of the pelvis-patient was given his usual dose of tobramycin today, he will return to the halfway on this antibiotic-stop date appears to be May 25, 2024 #4 type 2 diabetes-patient's blood sugars will be monitored, sliding scale insulin will be administered as indicated #5 essential hypertension-patient will remain on his current medications #6 hypothyroidism-patient remains on Synthroid, patient's T4 was slightly elevated, his T3 was normal, again patient's TSH was elevated at 6.7, I do not feel he needs his thyroid medication adjusted #7 paraplegia-complicates care, management, recovery, and prognosis #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 Medeiros) on 04/26/2024, since the patient's mental status improved during his hospitalization without being on an antibiotic that covers these organisms, he does not think that this is an active cystitis, he thinks it is colonization. 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 Hutchins and discussed this with her and also discussed the fact that the family would like him transferred to a tertiary facility if his encephalopathy returns. I also talked with Dr. Ca about the situation. Total clinical time spent by myself addressing the patient's medical issues, reviewing all of his data, and collaborating with patient's care team: 35 minutes Medications at Discharge Home Medications acetaminophen 325 mg tablet 650 mg PO Q4H PRN PAIN/FEVER 01/02/23 apixaban 5 mg tablet (Eliquis) 5 mg PO BID AFIB 01/02/23 ascorbic acid (vitamin C) 500 mg tablet 500 mg PO QHS SUPPLEMENT 01/02/23 atorvastatin 40 mg tablet 40 mg PO QHS CHOLESTEROL 01/02/23 bisacodyl 10 mg rectal suppository 10 mg DC DAILY PRN CONSTIPATION 01/02/23 carvedilol 12.5 mg tablet 12.5 mg PO BID HYPERTENSION 01/02/23 dextrose 40 % oral gel (Glucose Gel) 15 g PO Q15M PRN HYPGLYCEMIA 01/02/23 ondansetron HCl 4 mg tablet 4 mg PO Q8H PRN NAUSEA/VOMITING 01/02/23 pantoprazole 40 mg tablet,delayed release 40 mg PO DAILY ACID REFLUX 01/02/23 sennosides 8.6 mg-docusate sodium 50 mg capsule (Senna Plus) 1 tab-cap PO BID CONSTIPATION 01/02/23 tacrolimus 1 mg capsule, immediate-release (Prograf) 2 mg PO Q12H IMMUNOSUPPRESIVE 01/02/23 sevelamer HCl 800 mg tablet 2,400 mg PO TIDCM ESRD 04/21/23 levothyroxine 150 mcg tablet 150 mcg PO DAILY@0600 THYROID 07/16/23 acetaminophen 650 mg rectal suppository 650 mg DC Q4H PRN PAIN/FEVER 08/06/23 magnesium hydroxide 400 mg/5 mL oral suspension (Milk of Magnesia) 30 ml PO DAILY PRN CONSTIPATION 08/06/23 ciclopirox 8 % topical solution 1 applic topical QHS NAIL FUNGUS 11/17/23 diphenhydramine-zinc acetate 2 %-0.1 % topical cream (Benadryl Extra Strength) 1 applic topical Q6H PRN ITCHING 12/06/23 escitalopram oxalate 10 mg tablet (Lexapro) 15 mg PO QHS DEPRESSION 12/30/23 insulin lispro 100 unit/mL subcutaneous pen 1 sliding scale dose subcut TIDCM 03/22/24 vitamin B complex-vitamin C-folic acid 0.8 mg tablet 1 tab PO QPM HEALTH MAINTENANCE 03/22/24 guaifenesin 100 mg/5 mL oral liquid (Adult Tussin Chest Congestion) 200 mg PO Q4H PRN COUGH/CONGESTION 03/29/24 aluminum-magnesium hydroxide 200 mg-200 mg/5 mL oral suspension 30 ml PO Q4H PRN GI DISTRESS 04/13/24 glucagon HCl 1 mg solution for injection (Glucagon (HCl) Emergency Kit) 1 mg IM Q20M PRN HYPOGLYCEMIA 04/13/24 hydralazine 50 mg tablet 50 mg PO TID BLOOD PRESSURE 04/13/24 melatonin 3 mg tablet 3 mg PO Q24H PRN INSOMNIA 04/13/24 polyethylene glycol 3350 17 gram/dose oral powder (Miralax) 17 g PO Q24H PRN CONSTIPATION 04/13/24 sodium phosphates 19 gram-7 gram/118 mL enema (Fleet Enema) 118 ml DC DAILY PRN constipation 04/22/24 tobramycin sulfate 40 mg/mL injection solution 100 mg IV Q24H 04/22/24 nystatin 100,000 unit/gram topical powder (Nyamyc) 1 applic topical BID #0 grams 04/26/24 Hospital Course Operations None Procedures Dialysis Summary of Care Provided Minutes Spent on Discharge: 33 Hospital Course: This 38-year-old black male was transferred from a local extended care facility at which she was getting intermediate care to the ER at [facility] due to confusion and abnormal lab work, no information was sent with the patient indicate which labs were abnormal. Workup in the emergency room included a brain CT which showed no evidence of acute pathology, his blood pressure was noted to be elevated and he received hydralazine for elevated blood pressure. Labs revealed an elevated creatinine and BUN, patient's white blood cell count was normal. Hemoglobin was slightly low at 11.1, sodium was low at 130-this was not felt to be significant. Patient was admitted to PCU, he underwent dialysis and he remained on tobramycin which the patient had been receiving chronically at the [facility] care facility for osteomyelitis of his sacrum. Patient was seen by wound care nurse. Patient's mental status improved during his hospitalization, the etiology of his encephalopathy was not understood. Patient's urine culture grew out multiple drug-resistant organisms-this was felt to be colonization by infectious diseases who I contacted about the case by telephone. On 04/26/2024, patient was seen and examined: On examination he appeared in good health and spirits. Vital signs as documented. Skin warm and dry and without overt rashes. Neck without JVD, neck was supple, trachea midline, thyroid was normal. Lungs clear bilaterally, normal air movement was noted. Heart exam notable for regular rhythm, normal sounds and absence of murmurs, rubs or gallops. Abdomen unremarkable and without evidence of organomegaly, masses, or abdominal aortic enlargement. Bowel sounds are present, abdomen is not distended. Extremities nonedematous, no cyanosis was noted, no clubbing was noted. Neuro: Cranial nerves II through XII are grossly intact, no focal motor deficits were noted, sensation to light touch and pinprick intact, motor exam 5/5 throughout. Psych: Patient is alert and answers simple questions appropriately. On 04/26/2024, I talked with the patient's primary care physician Dr. Hutchins and went over the case with her, family had called during the patient's hospitalization and told nursing they wish the patient to go to a tertiary facility if the patient had to be hospitalized again from the halfway. [facility] also called about possibly transferring the patient from here to a tertiary facility but I felt this was unnecessary. I talked with the halfway staff before I sent the patient back to the [facility] on 04/26/2024 went over his case with them, I also talked with the medical records receptionist of the facility (Dr. Ca). Patient was felt to be stable for discharge back to [facility] on 04/26/2024. Weight / BMI Weight Weight: 116.2 kg Body Mass Index (BMI) 34.7 ABG / Lab / Microbiology Data 04/25/24 07:40 04/23/24 07:03 Laboratory: Laboratory Results - last 24 hr 04/25/24 11:14: POC Glucose 178 H 04/25/24 17:13: POC Glucose 163 H 04/25/24 22:05: POC Glucose 141 H 04/26/24 06:40: POC Glucose 146 H Microbiology: Microbiology 04/22/24 16:05 Blood Culture (Wb) - Line Draw Blood Culture - Preliminary 04/23/24 00:05 Urine Catheter - [place]st Urine Culture - Preliminary Providencia stuartii Pseudomonas aeruginosa ESBL Klebsiella pneumoniae pne Meaningful Use Info Meaningful Use Meaningful Use Diagnoses (Choose all that apply): None applicable Ischemic Stroke Statin Dosing Therapy Reference: STATIN DOSE THERAPY REFERENCE: * Patients > 75 years receive moderate or high dose statin therapy. * Patients 75 years or YOUNGER should receive HIGH intensity statin dose unless contraindicated. You will be required to document reason for non-treatment if statin daily dose does not meet guidelines. HIGH DOSE STATIN THERAPY DAILY Atorvastatin > than or = to 40 mg Rosuvastatin > than or = to 20 mg Amlodipine + Atorvastatin > than or = to 2.5/40 mg Ezetimibe + Simvastatin 10/80 mg Simvastatin 80mg Discharge Plan Admission Admit Date/Time: 04/22/24 13:42 Primary Reason for Your Visit: Encephalopathy Attending Provider: Coy Wayne Primary Care Provider: Vanessa Hutchins Consulting Providers: Ansley Peña; Jaxson Easley; Cely Del Angel; Christin Shane; Osman Jacome; Bereket Porter; Jayson Salgado; ISAI PUENTE; Kenyetta Rahman; Sarah Bunn; Guilherme Cross; Aaliyah Fregoso; Denver Saunders Discharge Orders/Prescriptions Prescriptions: New nystatin [Nyamyc] 100,000 unit/gram Powder 1 applic topical BID Qty: 0 0RF Protocol: *Topical Application Instructions APPLICATION INSTRUCTIONS: apply to groin and abdominal folds Continued atorvastatin 40 mg Tablet 40 mg PO QHS acetaminophen 325 mg Tablet 650 mg PO Q4H PRN (Reason: PAIN/FEVER) carvedilol 12.5 mg Tablet 12.5 mg PO BID ascorbic acid (vitamin C) 500 mg Tablet 500 mg PO QHS bisacodyl 10 mg Suppository 10 mg DC DAILY PRN (Reason: CONSTIPATION ) dextrose [Glucose Gel] 40 % Gel 15 g PO Q15M PRN (Reason: HYPGLYCEMIA ) Rx Instructions: until symptoms of low blood sugar are controlled Eliquis 5 mg Tablet 5 mg PO BID pantoprazole 40 mg Tablet,Delayed Release (Dr/Ec) 40 mg PO DAILY tacrolimus [Prograf] 1 mg Capsule 2 mg PO Q12H ondansetron HCl 4 mg Tablet 4 mg PO Q8H PRN (Reason: NAUSEA/VOMITING ) Senna Plus 8.6-50 mg Capsule 1 tab-cap PO BID sevelamer HCl 800 mg tablet 2,400 mg PO TIDCM Rx Instructions: must administer with a meal/food levothyroxine 150 mcg tablet 150 mcg PO DAILY@0600 acetaminophen 650 mg suppository 650 mg DC Q4H PRN (Reason: PAIN/FEVER) magnesium hydroxide [Milk of Magnesia] 400 mg/5 mL suspension 30 ml PO DAILY PRN (Reason: CONSTIPATION ) Benadryl Extra Strength 2-0.1 % cream 1 applic topical Q6H PRN (Reason: ITCHING ) ciclopirox 8 % solution 1 applic topical QHS Rx Instructions: APPLY ONE APPLICATION TOPICALLY TO RIGHT THUMB AT BEDTIME FOR NAIL FUNGUS escitalopram oxalate [Lexapro] 10 mg tablet 15 mg PO QHS B complex-vitamin C-folic acid 0.8 mg tablet 1 tab PO QPM insulin lispro 100 unit/mL insulin pen 1 sliding scale dose subcut TIDCM Protocol: 6. Sliding Scale Insulin Custom Condition: 180-200 mg/dl range Dose/Route: 2 Number of Units Condition: 201-250 Dose/Route: 3 Condition: 251-300 Dose/Route: 4 Condition: 301-350 Dose/Route: 5 Condition: 351-400 Dose/Route: 6 Condition: 401-450 Dose/Route: 7 Condition: >451 Dose/Route: call MD Protocol Text: Custom Sliding Scale guaifenesin [Adult Tussin Chest Congestion] 100 mg/5 mL liquid 200 mg PO Q4H PRN (Reason: COUGH/CONGESTION ) Fleet Enema 19-7 gram/118 mL enema 118 ml DC DAILY PRN (Reason: constipation) tobramycin sulfate 40 mg/mL solution 100 mg IV Q24H Rx Instructions: 100mg given with dialysis on Mon, Tues, Thurs, and Fri. Twice weekly bmp, cbc, tobramycin trough prior to HD, and esr. Fax to [phone]. aluminum-magnesium hydroxide 200-200 mg/5 mL suspension 30 ml PO Q4H PRN (Reason: GI DISTRESS ) glucagon HCl [Glucagon (HCl) Emergency Kit] 1 mg recon soln 1 mg IM Q20M PRN (Reason: HYPOGLYCEMIA ) polyethylene glycol 3350 [Miralax] 17 gram/dose powder 17 g PO Q24H PRN (Reason: CONSTIPATION ) melatonin 3 mg Tablet 3 mg PO Q24H PRN (Reason: INSOMNIA ) hydralazine 50 mg Tablet 50 mg PO TID Discontinued gabapentin 100 mg Capsule 100 mg PO BID Qty: 0 0RF Referrals / Follow Up: Vanessa Hutchins MD [Primary Care Provider] - Disposition Disposition (needs filled in before D/C Order can be placed): NonSkilled NH/Intermed Care Charges/Coding Visit Charges Inpatient E&M: 15220 Disch Hosp >30min
[2024-04-26 12:11] LABS: Bedside Glucose 154 mg/dL (74-106)
[2024-04-26 12:30] VITALS: BP 130/78; PULSE 93; RESP 16; TEMP 36.6; O2SAT 99
--- NOTE | 2024-04-26 12:42 | NURSING ---
Called in report to [facility] 3rd floor, spoke with Shital.
[2024-04-28 17:07] LABS: GGTP 39 IU/L (0-65)
== END 2024-04-26 12:42 | disposition intermediate care facility (04) | DRG 70 ==
LOC: ED 13:03 → PCU 13:31
PROVIDERS: Family Medicine; Admitting Provider Internal Medicine; Emergency Provider Emergency Medicine; PCP Internal Medicine; Visit Provider Internal Medicine
DX: G93.41 Metabolic encephalopathy (principal); L89.224 Pressure ulcer of left hip, stage 4; N18.6 End stage renal disease; T86.12 Kidney transplant failure; I16.1 Hypertensive emergency; I12.0 Hypertensive chronic kidney disease with stage 5 chronic kidney disease or end stage renal disease; E87.1 Hypo-osmolality and hyponatremia; M86.8X8 Other osteomyelitis, other site; Z16.24 Resistance to multiple antibiotics; D63.1 Anemia in chronic kidney disease; G82.22 Paraplegia, incomplete; E11.69 Type 2 diabetes mellitus with other specified complication; F32.A Depression, unspecified; Z68.37 Body mass index [BMI] 37.0-37.9, adult; Z89.512 Acquired absence of left leg below knee; E11.22 Type 2 diabetes mellitus with diabetic chronic kidney disease; E78.5 Hyperlipidemia, unspecified; Z99.2 Dependence on renal dialysis; I89.0 Lymphedema, not elsewhere classified; E11.649 Type 2 diabetes mellitus with hypoglycemia without coma; Z79.4 Long term (current) use of insulin; T87.89 Other complications of amputation stump; Y83.5 Amputation of limb(s) as the cause of abnormal reaction of the patient, or of later complication, without mention of misadventure at the time of the procedure; G47.00 Insomnia, unspecified; E66.812 Obesity, class 2; Z68.36 Body mass index [BMI] 36.0-36.9, adult; Z79.01 Long term (current) use of 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
CPT/HCPCS: 36415; 70450; 80048; 80076; 80307; 81001; 82077; 82962; 82977; 83735; 84100; 84436; 84443; 84480; 85025; 85610; 85730; 87040; 87077; 87086; 87088; 87184; 87186; 90937; 95819; 97110; 97162; 97530; 97802; 99285; J7030; A4216; G0257; J0696

== ENCOUNTER → 2024-04-22 | Outpatient (REF) | payer MEDICARE, MEDICAID, SELFPAY ==
[2024-04-22 09:07] LABS: Absolute Lymphocyte Count 1.48 X10^3/uL (0.83-4.51); Basophil# 0.06 X10^3/uL; Basophil% 0.9 % (0-1); Eosinophil# 0.23 X10^3/uL; Eosinophils% 3.6 % (0-5); Hematocrit 36.9 % (40-54); Hemoglobin 11.5 g/dL (13.0-16.5); Lymphocyte # 1.48 X10^3/ul (0.83-4.51); Mean Corp Hgb Conc 31.2 g/dL (32-36); Mean Corpuscular Hgb 27.7 pg (27.0-32.0); Mean Corpuscular Volume 88.9 fL (80-94); Monocyte# 0.67 X10^3/uL; Monocyte% 10.4 % (0-10); NRBC Flagged by Analyzer 0 % (0-5); Neutrophil # 3.98 X10^3/uL (2.7-7.7); Neutrophil % 61.8 % (47-70); Platelet Count 111 K/mm3 (150-450); RBC Distribution Width CV 16.8 % (11.6-14.6); RBC Distribution Width SD 54.4 fl (35.1-43.9); Red Blood Count 4.15 M/mm3 (4.6-6.2); White Blood Count 6.4 K/mm3 (4.4-11.0)
[2024-04-22 09:10] LABS: Anion Gap 9 (5-15); BUN 22 mg/dL (7-18); BUN/Creat Ratio 3.4 RATIO (10-20); Calcium,Total 9.3 mg/dL (8.5-10.1); Chloride 94 mmol/L (98-107); Creatinine, Serum 6.41 mg/dL (0.70-1.30); EST Glomerular Filtration Rate 11 mL/min (>60); Est Glom Filt Rate - Afr Amer 13 mL/min (>60); Glucose 104 mg/dL (74-106); Potassium 3.8 mmol/L (3.5-5.1); Sodium Level 130 mmol/L (136-145)
== END ==
LOC: OLS.SW 05:00
PROVIDERS: PCP Internal Medicine; Visit Provider Internal Medicine
DX: E11.9 Type 2 diabetes mellitus without complications (principal); R41.82 Altered mental status, unspecified
CPT/HCPCS: 36415; 80048; 85025

== ENCOUNTER → 2024-05-04 | Outpatient (REF) | payer MEDICARE, MEDICAID, SELFPAY ==
[2024-05-04 08:17] LABS: Erythrocyte Sedimentation Rate 21 mm/hr (0-20)
[2024-05-04 08:20] LABS: Hematocrit 35.5 % (40-54); Hemoglobin 11.5 g/dL (13.0-16.5); Mean Corp Hgb Conc 32.4 g/dL (32-36); Mean Corpuscular Hgb 28.3 pg (27.0-32.0); Mean Corpuscular Volume 87.2 fL (80-94); Mean Platelet Vol. 12.8 fl (6.2-12.0); Platelet Count 156 K/mm3 (150-450); RBC Distribution Width CV 16.6 % (11.6-14.6); Red Blood Count 4.07 M/mm3 (4.6-6.2); White Blood Count 6.5 K/mm3 (4.4-11.0)
[2024-05-04 08:53] LABS: Anion Gap 10 (5-15); BUN 62 mg/dL (7-18); BUN/Creat Ratio 6.8 RATIO (10-20); Chloride 97 mmol/L (98-107); EST Glomerular Filtration Rate 7 mL/min (>60); Est Glom Filt Rate - Afr Amer 9 mL/min (>60); Glucose 466 mg/dL (74-106); Potassium 3.7 mmol/L (3.5-5.1); Sodium Level 134 mmol/L (136-145)
[2024-05-04 10:02] LABS: Tobramycin Once Daily Trough 1.5 ug/mL (<1.0)
== END ==
LOC: OLS.SW 04:00
PROVIDERS: PCP Internal Medicine; Visit Provider Internal Medicine
DX: Z79.899 Other long term (current) drug therapy (principal); E11.9 Type 2 diabetes mellitus without complications
CPT/HCPCS: 36415; 80048; 80200; 84443; 85027; 85652

== ENCOUNTER → 2024-05-08 | Outpatient (REF) | payer MEDICARE, MEDICAID, SELFPAY ==
[2024-05-08 08:52] LABS: Erythrocyte Sedimentation Rate 22 mm/hr (0-20)
[2024-05-08 08:58] LABS: Tobramycin Conventional Trough 1.4 ug/mL (<2.00)
[2024-05-08 09:00] LABS: Hematocrit 34.9 % (40-54); Mean Corp Hgb Conc 31.5 g/dL (32-36); Mean Corpuscular Hgb 28.1 pg (27.0-32.0); Mean Corpuscular Volume 89.3 fL (80-94); Mean Platelet Vol. 12.3 fl (6.2-12.0); POSITIVE COUNT YES; Platelet Count 95 K/mm3 (150-450); RBC Distribution Width CV 17.2 % (11.6-14.6); RBC Distribution Width SD 55.2 fl (35.1-43.9); Red Blood Count 3.91 M/mm3 (4.6-6.2); White Blood Count 7.5 K/mm3 (4.4-11.0)
[2024-05-08 09:23] LABS: Anion Gap 11 (5-15); BUN 43 mg/dL (7-18); BUN/Creat Ratio 5.8 RATIO (10-20); Calcium,Total 8.8 mg/dL (8.5-10.1); Chloride 97 mmol/L (98-107); Creatinine, Serum 7.36 mg/dL (0.70-1.30); EST Glomerular Filtration Rate 9 mL/min (>60); Est Glom Filt Rate - Afr Amer 11 mL/min (>60); Glucose 626 mg/dL (74-106); Potassium 3.6 mmol/L (3.5-5.1); Sodium Level 132 mmol/L (136-145)
[2024-05-08 09:45] LABS: Scan Indicated on CBC? Y/N YES- FLAGS NOTED
== END ==
LOC: OLS.SW 05:00
PROVIDERS: PCP Internal Medicine; Visit Provider Internal Medicine Infectious Disease
DX: I10 Essential (primary) hypertension (principal); Z79.899 Other long term (current) drug therapy
CPT/HCPCS: 80048; 80200; 85027; 85652

== ENCOUNTER → 2024-05-21 | Outpatient (REF) | payer MEDICARE, MEDICAID, SELFPAY ==
[2024-05-21 10:02] LABS: Hemoglobin A1c 6.9 % (3.8-5.6)
== END ==
LOC: OLS.SW 05:00
PROVIDERS: PCP Internal Medicine; Visit Provider Internal Medicine
DX: E11.9 Type 2 diabetes mellitus without complications (principal)
CPT/HCPCS: 83036

== ENCOUNTER 2024-06-27 03:42 | Emergency (ER) | payer MEDICARE, MEDICAID, SELFPAY ==
[2024-06-27 03:44] VITALS: BP 152/59; PULSE 67; RESP 18; TEMP 36.6; O2SAT 99; BMI 38.1
--- NOTE | 2024-06-27 04:02 | EDS_ITS ---
HPI History of Present Illness Chief Complaint: Other, Pain/Inj Informant: patient, EMS and SNF Narrative Narrative: Patient sent to the ED for concerning bleeding fistula. Dialysis Fridays had dialysis yesterday. He said dialysis now for last 8 to 9 years. Left forearm fistula for last 8 to 9 years. No complications in the past with his fistula. He is on Eliquis history of blood clots including pulmonary embolism. 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 I got a call from the practitioner reported her soaked dressing with large hematoma. Patient reports it does not swell swollen to him. He states dressing placed 1 time has not been changed. He is on chronic 3 L of oxygen. Prior similar symptoms: No PFSH PFSH Medical History Encephalopathy Hyponatremia Hypertensive urgency Acute delirium History of deep vein thrombosis Acute postoperative pain ESRD (end stage renal disease) on dialysis 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 disease Decubitus ulcer Abscess Left ischial pressure sore Open wound of left buttock with complication Current use of half-way anticoagulation Acute hyperkalemia Acute alteration in mental status Phantom limb syndrome with pain Paraplegia Metabolic encephalopathy Type 2 diabetes mellitus End-stage renal disease on hemodialysis Anticoagulant long-term use Hx of pulmonary embolus Anemia in chronic kidney disease, 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 H/O deep venous thrombosis Osteomyelitis of pelvic region Lives in care home Anxiety Open wound Insulin dependent diabetes mellitus Uses wheelchair Injury of back Non-healing wound of amputation stump DM type 2, goal HbA1c < 7% 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, stage 4 Neurogenic bowel Chronic kidney disease with end stage renal failure on dialysis Kidney transplant failure Dependence on renal dialysis Pressure ulcer of left heel, unspecified stage Gastro-esophageal reflux disease without esophagitis Other pericardial effusion (noninflammatory) Other pulmonary embolism without acute cor pulmonale Hypertensive heart and chronic kidney disease with heart failure and stage 1 through stage 4 chronic kidney disease, or unspecified chronic kidney disease Depression Hyperlipemia Hypothyroidism Anemia in chronic kidney disease Neuromuscular dysfunction of bladder, unspecified Paraplegia, incomplete Other acute osteomyelitis, left ankle and foot End stage renal disease Home Medications ?Medication ?Instructions ?Recorded ?Last Taken ?Type acetaminophen 325 mg tablet 650 mg PO Q4H PRN PAIN/FEVER 01/02/23 04/21/23 History apixaban 5 mg tablet (Eliquis) 2.5 mg PO BID AFIB pulm edema 01/02/23 07/16/23 History ascorbic acid (vitamin C) 500 mg 500 mg PO QHS SUPPLEMENT 01/02/23 12/08/23 History tablet atorvastatin 40 mg tablet 40 mg PO QHS CHOLESTEROL 01/02/23 12/08/23 History bisacodyl 10 mg rectal suppository 10 mg NE DAILY PRN CONSTIPATION 01/02/23 Unknown History carvedilol 12.5 mg tablet 12.5 mg PO BID HYPERTENSION 01/02/23 12/09/23 History dextrose 40 % oral gel (Glucose 15 g PO Q15M PRN HYPGLYCEMIA 01/02/23 Unknown History Gel) ondansetron HCl 4 mg tablet 4 mg PO Q8H PRN NAUSEA/VOMITING 01/02/23 Unknown History pantoprazole 40 mg tablet,delayed 40 mg PO DAILY ACID REFLUX 01/02/23 12/08/23 History release sennosides 8.6 mg-docusate sodium 1 tab-cap PO BID CONSTIPATION 01/02/23 07/16/23 History 50 mg capsule (Senna Plus) tacrolimus 1 mg capsule, 2 mg PO Q12H IMMUNOSUPPRESIVE 01/02/23 12/09/23 History immediate-release (Prograf) sevelamer HCl 800 mg tablet 2,400 mg PO TIDCM ESRD 04/21/23 07/16/23 History levothyroxine 150 mcg tablet 150 mcg PO DAILY@0600 THYROID 07/16/23 12/09/23 History acetaminophen 650 mg rectal 650 mg NE Q4H PRN PAIN/FEVER 08/06/23 Unknown History suppository magnesium hydroxide 400 mg/5 mL 30 ml PO DAILY PRN CONSTIPATION 08/06/23 Unknown History oral suspension (Milk of Magnesia) ciclopirox 8 % topical solution 1 applic topical QHS NAIL FUNGUS 11/17/23 Unknown History diphenhydramine-zinc acetate 2 1 applic topical Q6H PRN ITCHING 12/06/23 Unknown History %-0.1 % topical cream (Benadryl Extra Strength) escitalopram oxalate 10 mg tablet 15 mg PO QHS DEPRESSION 12/30/23 Unknown History (Lexapro) insulin lispro 100 unit/mL 1 sliding scale dose subcut TIDCM 03/22/24 Unknown History subcutaneous pen vitamin B complex-vitamin C-folic 1 tab PO QPM HEALTH MAINTENANCE 03/22/24 Unknown History acid 0.8 mg tablet guaifenesin 100 mg/5 mL oral 200 mg PO Q4H PRN COUGH/CONGESTION 03/29/24 Unknown History liquid (Adult Tussin Chest Congestion) aluminum-magnesium hydroxide 200 30 ml PO Q4H PRN GI DISTRESS 04/13/24 Unknown History mg-200 mg/5 mL oral suspension glucagon HCl 1 mg solution for 1 mg IM Q20M PRN HYPOGLYCEMIA 04/13/24 Unknown History injection (Glucagon (HCl) Emergency Kit) hydralazine 50 mg tablet 50 mg PO TID BLOOD PRESSURE 04/13/24 Unknown History melatonin 3 mg tablet 3 mg PO Q24H PRN INSOMNIA 04/13/24 Unknown History polyethylene glycol 3350 17 17 g PO Q24H PRN CONSTIPATION 04/13/24 Unknown History gram/dose oral powder (Miralax) sodium phosphates 19 gram-7 118 ml NE DAILY PRN constipation 04/22/24 Unknown History gram/118 mL enema (Fleet Enema) tobramycin sulfate 40 mg/mL 100 mg IV Q24H 04/22/24 Unknown History injection solution nystatin 100,000 unit/gram topical 1 applic topical BID #0 grams 04/26/24 Unknown Rx powder ([facility]) carvedilol 25 mg tablet (Coreg) 50 mg PO BID 06/27/24 Unknown History clonidine HCl 0.1 mg tablet 0.25 mg PO Q12H hypertension 06/27/24 Unknown History insulin glargine 100 unit/mL (3 8 unit subcut QPM DM 06/27/24 Unknown History mL) subcutaneous pen (Lantus Solostar U-100 Insulin) insulin lispro 100 unit/mL 5 unit subcut TID DM 06/27/24 Unknown History subcutaneous solution methyl salicylate-menthol topical 1 applic topical BID 06/27/24 Unknown History cream Allergy/AdvReac Type Severity Reaction Status Date / Time No Known Allergies Allergy Verified 06/27/24 03:47 Family History Mother Hypertension Diabetes Father Hypertension Diabetes Surgical History History of kidney transplant S/P unilateral above knee amputation S/P foot surgery S/P colostomy Social History housing: care home Smoking Status: Never smoker alcohol intake: never substance use type: does not use ROS ROS ED Constitutional Constitutional ED: Denies chills, fever(s) or sweats ENT ENT ED: Denies sore throat Cardiovascular Cardiovascular: Denies chest pain, leg edema, palpitations or racing heartbeat Respiratory/Chest Respiratory/Chest: Denies cough, dyspnea or dyspnea on exertion Gastrointestinal Gastrointestinal: Denies abdominal pain, diarrhea, nausea or vomiting Musculoskeletal Musculoskeletal: Denies back pain, extremity pain or neck pain Integumentary Reports wounds; Denies rash Neurologic Neurologic: Denies headache(s), paresthesias or weakness EXAM Physical Exam Const Vital Signs: 06/27/24 03:44 06/27/24 04:04 06/27/24 06:08 Temperature 97.9 F Temperature Source Oral Pulse Rate 67 65 Respiratory Rate 18 12 Blood Pressure 152/59 H 135/57 H Blood Pressure Mean 90 83 Pulse Ox 99 Oxygen Delivery Method Room Air Nasal Cannula Nasal Cannula Oxygen Flow Rate (L/min) 3 3 Positive well nourished and well developed Constitutional Narrative: Chronic oxygenation placed on 3 L General Appearance ED: well developed and NAD HEENT Reports moist mucous membranes normocephalic and atraumatic Eyes General Eye ED: Yes normal appearance of both eyes Neck full ROM Chest Wall Chest: Negative for tenderness Resp normal respiratory effort and normal air movement Effort and Inspection: symmetric chest movement; Negative for respiratory distress Cardio regular rate, regular rhythm and no murmurs Peripheral Pulses: pulses 2+ throughout GI normal to inspection, nondistended, normoactive bowel sounds and non-tender Palpation: Negative for guarding or rebound tenderness present Extremity normal to inspection Extremity Narrative: Left below the knee amputation. General Extremety ED: Negative for edema or tenderness General Extremity: Negative for edema Neuro oriented x3 and no sensory deficits noted Sensorium / Orientation: awake and alert Skin Skin Narrative: Left forearm: Fistula dressing with blood that is dried into the dressing. Positive thrill. Swelling above the fistula however patient states this is normal. MDM MDM MDM Narrative Medical decision making narrative: Interventions / MDM: Differential diagnosis: Bleeding fistula complication, chronic anticoagulation, end-stage renal disease on hemodialysis Diagnosis considered but do not suspect: N/A My EKG interpretation: N/A Imaging independently reviewed and interpreted by myself: N/A External documents reviewed: N/A Test considered but not ordered:N/A ED course: Patient continued on his home oxygen. Currently dried blood over the fistula from dressing. He states swelling is normal. No active bleeding. Wet cough placed over the dressing to help remove. Will reevaluate. 0530: There is blood coming through the dressing, pinpoint bleeding region. Therefore I placed a 5-0 [id number] stitch around the wound. Hemostasis achieved. Will monitor. Procedure note: Verbal consent. Normal sterile conditions. 1 cc 1% lidocaine used for local analgesia around the bleeding pinpoint area of the fistula. 5-0 nylon figure 8 superficial stitch was placed with good hemostasis. Surgifoam was placed dressing and Coban placed by myself. Patient tolerated well. 0610: No bleeding through the dressing. Patient be transported back to facility. Re-evaluation: stable Disposition discussed with patient/family/significant other: Patient Case discussed with consulting clinician: N/A This note was generated with [employer] dictation software. It may contain incorrect words, spelling, and punctuation that were not noted in checking the note before signing. Discharge Plan Triage Chief Complaint: Other, Pain/Inj ED Provider: Trae Mitchell Dx/Rx/DC Orders Clinical Impression: Hemorrhage of arteriovenous fistula, Chronic anticoagulation, End-stage renal disease on hemodialysis Instructions: ED Chronic Kidney Disease (CKD), ED Hemodialysis Access Bleeding Prescriptions: No Action atorvastatin 40 mg Tablet 40 mg PO QHS acetaminophen 325 mg Tablet 650 mg PO Q4H PRN (Reason: PAIN/FEVER) carvedilol 12.5 mg Tablet 12.5 mg PO BID ascorbic acid (vitamin C) 500 mg Tablet 500 mg PO QHS bisacodyl 10 mg Suppository 10 mg NE DAILY PRN (Reason: CONSTIPATION ) dextrose [Glucose Gel] 40 % Gel 15 g PO Q15M PRN (Reason: HYPGLYCEMIA ) Rx Instructions: until symptoms of low blood sugar are controlled Eliquis 5 mg Tablet 2.5 mg PO BID pantoprazole 40 mg Tablet,Delayed Release (Dr/Ec) 40 mg PO DAILY tacrolimus [Prograf] 1 mg Capsule 2 mg PO Q12H ondansetron HCl 4 mg Tablet 4 mg PO Q8H PRN (Reason: NAUSEA/VOMITING ) Senna Plus 8.6-50 mg Capsule 1 tab-cap PO BID sevelamer HCl 800 mg tablet 2,400 mg PO TIDCM Rx Instructions: must administer with a meal/food levothyroxine 150 mcg tablet 150 mcg PO DAILY@0600 acetaminophen 650 mg suppository 650 mg NE Q4H PRN (Reason: PAIN/FEVER) magnesium hydroxide [Milk of Magnesia] 400 mg/5 mL suspension 30 ml PO DAILY PRN (Reason: CONSTIPATION ) Benadryl Extra Strength 2-0.1 % cream 1 applic topical Q6H PRN (Reason: ITCHING ) ciclopirox 8 % solution 1 applic topical QHS Rx Instructions: APPLY ONE APPLICATION TOPICALLY TO RIGHT THUMB AT BEDTIME FOR NAIL FUNGUS escitalopram oxalate [Lexapro] 10 mg tablet 15 mg PO QHS B complex-vitamin C-folic acid 0.8 mg tablet 1 tab PO QPM insulin lispro 100 unit/mL insulin pen 1 sliding scale dose subcut TIDCM Protocol: 6. Sliding Scale Insulin Custom Condition: 180-200 mg/dl range Dose/Route: 2 Number of Units Condition: 201-250 Dose/Route: 3 Condition: 251-300 Dose/Route: 4 Condition: 301-350 Dose/Route: 5 Condition: 351-400 Dose/Route: 6 Condition: 401-450 Dose/Route: 7 Condition: >451 Dose/Route: call MD Protocol Text: Custom Sliding Scale guaifenesin [Adult Tussin Chest Congestion] 100 mg/5 mL liquid 200 mg PO Q4H PRN (Reason: COUGH/CONGESTION ) Fleet Enema 19-7 gram/118 mL enema 118 ml NE DAILY PRN (Reason: constipation) tobramycin sulfate 40 mg/mL solution 100 mg IV Q24H Rx Instructions: 100mg given with dialysis on Mon, Tues, Thurs, and Fri. Twice weekly bmp, cbc, tobramycin trough prior to HD, and esr. Fax to [phone]. nystatin [Nyamyc] 100,000 unit/gram Powder 1 applic topical BID Qty: 0 0RF Protocol: *Topical Application Instructions APPLICATION INSTRUCTIONS: apply to groin and abdominal folds clonidine HCl 0.1 mg tablet 0.25 mg PO Q12H Rx Instructions: hold if bp is less than 100/60 carvedilol [Coreg] 25 mg tablet 50 mg PO BID Rx Instructions: must administer with a meal/food insulin lispro 100 unit/mL solution 5 unit subcut TID Rx Instructions: HOLD FOR BS LESS THAN 120 insulin glargine [Lantus Solostar U-100 Insulin] 100 unit/mL (3 mL) insulin pen 8 unit subcut QPM methyl salicylate-menthol Cream 1 applic topical BID Rx Instructions: APPLY TO SHOULDERS FOR PAIN aluminum-magnesium hydroxide 200-200 mg/5 mL suspension 30 ml PO Q4H PRN (Reason: GI DISTRESS ) glucagon HCl [Glucagon (HCl) Emergency Kit] 1 mg recon soln 1 mg IM Q20M PRN (Reason: HYPOGLYCEMIA ) polyethylene glycol 3350 [Miralax] 17 gram/dose powder 17 g PO Q24H PRN (Reason: CONSTIPATION ) melatonin 3 mg Tablet 3 mg PO Q24H PRN (Reason: INSOMNIA ) hydralazine 50 mg Tablet 50 mg PO TID Primary Care Provider: Vanessa Hutchins Referrals: Vanessa Hutchins MD [Primary Care Provider] - 1 Week Activity Restrictions/Additional Instructions: 1 [id number] stitch was placed over the puncture for bleeding fistula. Print Language: Georgian Disposition Disposition: Home, Self Care
[2024-06-27 06:08] VITALS: BP 135/57; PULSE 65; RESP 12
[2024-06-27 06:31] VITALS: BP 126/70; PULSE 80; RESP 18; TEMP 36.8; O2SAT 96
[2024-06-27 08:00] VITALS: BP 137/62; PULSE 68; RESP 17; O2SAT 100
[2024-06-27 10:00] VITALS: BP 139/77; PULSE 66; RESP 16; O2SAT 100
== END 2024-06-27 10:40 | disposition home or self-care (01) ==
PROVIDERS: Emergency Provider Emergency Medicine; PCP Internal Medicine; Visit Provider Emergency Medicine
DX: T82.838A Hemorrhage due to vascular prosthetic devices, implants and grafts, initial encounter (principal); N18.6 End stage renal disease; Z89.512 Acquired absence of left leg below knee; E11.22 Type 2 diabetes mellitus with diabetic chronic kidney disease; Z79.4 Long term (current) use of insulin; E78.5 Hyperlipidemia, unspecified; Z79.01 Long term (current) use of 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; Z99.2 Dependence on renal dialysis; Y71.8 Miscellaneous cardiovascular devices associated with adverse incidents, not elsewhere classified
CPT/HCPCS: 99284

== ENCOUNTER 2024-07-05 13:24 | Emergency (ER) | payer MEDICARE, MEDICAID, SELFPAY ==
[2024-07-05 13:25] VITALS: BP 199/74; PULSE 73; RESP 15; TEMP 36.8; O2SAT 96; BMI 35.9
--- NOTE | 2024-07-05 13:45 | EX.ED.DYSGE1 ---
HPI History of Present Illness Chief Complaint: Alt LOC [facility] Medical History (Updated 07/05/24 @ 15:[address] 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 H/O deep venous thrombosis Osteomyelitis of pelvic region Lives in senior care Anxiety Open wound Insulin dependent diabetes mellitus Uses wheelchair Injury of back Non-healing wound of amputation stump DM type 2, goal HbA1c < 7% 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 disease 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, stage 4 Neurogenic bowel Chronic kidney disease with end stage renal failure on dialysis Kidney transplant failure Dependence on renal dialysis Pressure ulcer of left heel, unspecified stage Gastro-esophageal reflux disease without esophagitis Other pericardial effusion (noninflammatory) Other pulmonary embolism without acute cor pulmonale Hypertensive heart and chronic kidney disease with heart failure and stage 1 through stage 4 chronic kidney disease, or unspecified chronic kidney disease Depression Hyperlipemia Hypothyroidism Anemia in chronic kidney disease Neuromuscular dysfunction of bladder, unspecified Paraplegia, incomplete Other acute osteomyelitis, left ankle and foot End stage renal disease Home Medications ?Medication ?Instructions ?Recorded ?Last Taken ?Type acetaminophen 325 mg tablet 650 mg PO Q4H PRN PAIN/FEVER 01/02/23 04/21/23 History apixaban 5 mg tablet (Eliquis) 2.5 mg PO BID AFIB pulm edema 01/02/23 07/16/23 History ascorbic acid (vitamin C) 500 mg 500 mg PO QHS SUPPLEMENT 01/02/23 12/08/23 History tablet atorvastatin 40 mg tablet 40 mg PO QHS CHOLESTEROL 01/02/23 12/08/23 History bisacodyl 10 mg rectal suppository 10 mg MO DAILY PRN CONSTIPATION 01/02/23 Unknown History carvedilol 12.5 mg tablet 12.5 mg PO BID HYPERTENSION 01/02/23 12/09/23 History dextrose 40 % oral gel (Glucose 15 g PO Q15M PRN HYPGLYCEMIA 01/02/23 Unknown History Gel) ondansetron HCl 4 mg tablet 4 mg PO Q8H PRN NAUSEA/VOMITING 01/02/23 Unknown History pantoprazole 40 mg tablet,delayed 40 mg PO DAILY ACID REFLUX 01/02/23 12/08/23 History release sennosides 8.6 mg-docusate sodium 1 tab-cap PO BID CONSTIPATION 01/02/23 07/16/23 History 50 mg capsule (Senna Plus) tacrolimus 1 mg capsule, 2 mg PO Q12H IMMUNOSUPPRESIVE 01/02/23 12/09/23 History immediate-release (Prograf) sevelamer HCl 800 mg tablet 2,400 mg PO TIDCM ESRD 04/21/23 07/16/23 History levothyroxine 150 mcg tablet 150 mcg PO DAILY@0600 THYROID 07/16/23 12/09/23 History acetaminophen 650 mg rectal 650 mg MO Q4H PRN PAIN/FEVER 08/06/23 Unknown History suppository magnesium hydroxide 400 mg/5 mL 30 ml PO DAILY PRN CONSTIPATION 08/06/23 Unknown History oral suspension (Milk of Magnesia) ciclopirox 8 % topical solution 1 applic topical QHS NAIL FUNGUS 11/17/23 Unknown History diphenhydramine-zinc acetate 2 1 applic topical Q6H PRN ITCHING 12/06/23 Unknown History %-0.1 % topical cream (Benadryl Extra Strength) escitalopram oxalate 10 mg tablet 15 mg PO QHS DEPRESSION 12/30/23 Unknown History (Lexapro) insulin lispro 100 unit/mL 1 sliding scale dose subcut TIDCM 03/22/24 Unknown History subcutaneous pen vitamin B complex-vitamin C-folic 1 tab PO QPM HEALTH MAINTENANCE 03/22/24 Unknown History acid 0.8 mg tablet guaifenesin 100 mg/5 mL oral 200 mg PO Q4H PRN COUGH/CONGESTION 03/29/24 Unknown History liquid (Adult Tussin Chest Congestion) aluminum-magnesium hydroxide 200 30 ml PO Q4H PRN GI DISTRESS 04/13/24 Unknown History mg-200 mg/5 mL oral suspension glucagon HCl 1 mg solution for 1 mg IM Q20M PRN HYPOGLYCEMIA 04/13/24 Unknown History injection (Glucagon (HCl) Emergency Kit) hydralazine 50 mg tablet 50 mg PO TID BLOOD PRESSURE 04/13/24 Unknown History melatonin 3 mg tablet 9 mg PO Q24H PRN INSOMNIA 04/13/24 Unknown History polyethylene glycol 3350 17 17 g PO Q24H PRN CONSTIPATION 04/13/24 Unknown History gram/dose oral powder (Miralax) sodium phosphates 19 gram-7 118 ml MO DAILY PRN constipation 04/22/24 Unknown History gram/118 mL enema (Fleet Enema) tobramycin sulfate 40 mg/mL 100 mg IV Q24H 04/22/24 Unknown History injection solution nystatin 100,000 unit/gram topical 1 applic topical BID #0 grams 04/26/24 Unknown Rx powder (Nyamyc) carvedilol 25 mg tablet (Coreg) 50 mg PO BID 06/27/24 Unknown History clonidine HCl 0.1 mg tablet 0.25 mg PO Q12H hypertension 06/27/24 Unknown History insulin glargine 100 unit/mL (3 8 unit subcut QPM DM 06/27/24 Unknown History mL) subcutaneous pen (Lantus Solostar U-100 Insulin) insulin lispro 100 unit/mL 5 unit subcut TID DM 06/27/24 Unknown History subcutaneous solution methyl salicylate-menthol topical 1 applic topical BID 06/27/24 Unknown History cream hydroxyzine HCl 25 mg tablet 25 mg PO Q6H PRN itching 07/05/24 Unknown History midodrine 10 mg tablet 10 mg PO DAILY PRN hypotension 07/05/24 Unknown History Allergy/AdvReac Type Severity Reaction Status Date / Time No Known Allergies Allergy Verified 07/05/24 13:25 Family History Mother Hypertension Diabetes Father Hypertension Diabetes Surgical History History of kidney transplant S/P unilateral above knee amputation S/P foot surgery S/P colostomy Social History housing: senior care Smoking Status: Never smoker alcohol intake: never substance use type: does not use EXAM Physical Exam Const Vital Signs: 07/05/24 13:25 07/05/24 15:26 07/05/24 16:08 Temperature 98.2 F 98.4 F Temperature Source Oral Pulse Rate 73 70 72 Respiratory Rate 15 18 18 Blood Pressure 199/74 H 174/82 H 193/87 H Blood Pressure Mean 115 112 122 Pulse Ox 96 95 94 Oxygen Delivery Method Nasal Cannula Room Air Oxygen Flow Rate (L/min) 4 MDM [facility] Narrative Medical decision making narrative: HISTORY OF PRESENT ILLNESS: 38-year-old male presents with concern for change in mental status. Per the patient he does not feel confused. He is have a fever. He is concerned because I have to be here because it feels like my stomach is moving. He further states he is not confused. He has no fever. Denies cough. Denies vomiting or diarrhea. Denies any skin changes. REVIEW OF SYSTEMS: Pertinent positives: My stump is moving Pertinent negatives: PHYSICAL EXAM: Nursing triage notes reviewed, Vital signs reviewed Constitutional: please see mdm HENT: MMM Eyes: Pupils equal round and reactive to light, Extraocular muscles intact Neck: No stridor, no JVD, full neck ROM Lungs: Clear to auscultation, No wheezing or rales. No increased work of breathing, no conversational dyspnea, no accessory muscle use, no nasal flaring. No respiratory distress noted Heart: Regular rate and rhythm, No murmurs, No rubs and No gallops, 2+ distal pulses (radial, femoral, posterior tibial) in all extremities Abdomen: Soft, there is no tenderness, rigidity, rebound or guarding, no obvious peritoneal signs, no palpable pulsatile abdominal masses, no auscultated abdominal bruit : No CVAT Extremities: No edema, left [id number] amputation with normal appearance, well-healing postsurgical appearance, no fluctuance, no induration, no crepitus, no bullae. No drainage. It is not warm. Neuro: No new focal neurological deficits, cranial nerves II through XII intact, 5/5 strength in all present extremities. Intact sensation to light touch in all present extremities, 2+ reflexes bilateral patella tendons. Skin: No rash or lesions noted MEDICAL DECISION MAKING: Chief Complaint: Evaluation for both the amputation stump External records reviewed: Reviewed allergies, problem list, vital signs Factors affecting care: Type 2 diabetes, ESRD, status post left [id number] amputation Social determinants of health: [facility] resident History obtained from others: none Consults: none [facility] Narrative: The patient was initially hypertensive but otherwise afebrile, nontoxic-appearing saturating well on home oxygen. There is no source of infection noted on my initial exam. Given the patient's relative immunocompromise status and concern for sepsis I did obtain labs to further assess the patient any signs of systemic inflammation or endorgan hypoperfusion. In terms of his blood pressure he was given his home hydralazine. In terms of his stump evaluation there is no sign of any foreign bodies, infections etc. In terms of his neurologic status patient was alert and orient x 3 and had no focal neurologic deficits. He is not altered. ALL IMAGES (IF OBTAINED) HAVE BEEN PERSONALLY REVIEWED AND INTERPRETED BY MYSELF. I have personally reviewed the patient's chest x-ray. Chest x-ray shows no evidence of bacterial pneumonia. X-ray of the left below-knee amputation showed no evidence of obvious bony abnormality. CBC with no leukocytosis, noted anemia of chronic disease, noted thrombocytopenia Lactate is wnl indicating no end-organ hypoperfusion and/or hypoxia. BMP with signs of end-stage renal disease, no significant electrolyte abnormalities, no signs of metabolic acidosis or endorgan hypoperfusion. The synthesis of the patient's history, physical exam, labs images suggest no acute life-threatening etiology specifically the patient was not altered and had a nonfocal neuroexam. There is no obvious evidence of any stump abnormality. There is also no signs of focal infection or sepsis. Urinalysis still pending. Patient cannot provide a sample likely secondary to end-stage renal disease. No clinical concern for UTI at this time. The patient is appropriate for discharge home. The patient and/or family, caregivers express understanding. The patient and/or family, caregivers agrees with the plan. Shared decision making: I will have a discussion with the patient and or visitors regarding risk/benefits of further testing or admission. They will be made aware of of the risk/benefits inherent in this decision they will be given the opportunity to voice understanding. Total critical care time today provided was at least 0 minutes. This excludes separately billable procedures. Critical care time (if documented) is secondary to the patient having high probability of clinically significant/life threatening deterioration in the patient's condition which required my urgent intervention. Impression: 1. Phantom limb pain 2. History of ESRD 3. Anemia of chronic disease 4. Thrombocytopenia Dispo: Discharge home This note was generated with [employer]ation software. It may contain incorrect words, spelling, and punctuation that were not noted in review of the chart prior to signing. Lab Data Labs: Laboratory Results - last 24 hr 07/05/24 13:50 WBC 5.8 RBC 3.29 L Hgb 9.6 L Hct 30.1 L MCV 91.5 MCH 29.2 MCHC 31.9 L RDW Std Deviation 53.6 H RDW Coeff of Shanta 15.9 H Plt Count 115 L MPV 11.6 Sodium 138 Potassium 4.9 Chloride 98 Carbon Dioxide 31.0 Anion Gap 9 BUN 60 H Creatinine 8.21 H* Estim Creat Clear Calc 16.64 Est GFR (MDRD) Af Amer 10 L Est GFR (MDRD) Non-Af 8 L BUN/Creatinine Ratio 7.3 L Glucose 141 H Lactic Acid 0.8 Calcium 9.3 Radiography Diagnostic Testing: Clinical Impression(s) from Imaging Studies Chest X-Ray 07/05/24 14:10 IMPRESSION: 1. Prominent pulmonary vascular markings. This suggests pulmonary edema. This is improved since the prior study. 2. Diffuse enlargement of the heart. Electronically Signed: Sujit Saravia MD at 14:34 EST , Tibia/Fibula X-Ray 07/05/24 14:10 IMPRESSION: Evidence for below knee amputation. Electronically Signed: Sujit Saravia MD at 14:27 EST , Discharge Plan Triage Chief Complaint: Alt LOC ED Provider: Axel Field Dx/Rx/DC Orders Clinical Impression: End stage renal disease, BKA stump complication, Phantom limb Instructions: Amputation Phantom Pain Prescriptions: No Action atorvastatin 40 mg Tablet 40 mg PO QHS acetaminophen 325 mg Tablet 650 mg PO Q4H PRN (Reason: PAIN/FEVER) carvedilol 12.5 mg Tablet 12.5 mg PO BID ascorbic acid (vitamin C) 500 mg Tablet 500 mg PO QHS bisacodyl 10 mg Suppository 10 mg MO DAILY PRN (Reason: CONSTIPATION ) dextrose [Glucose Gel] 40 % Gel 15 g PO Q15M PRN (Reason: HYPGLYCEMIA ) Rx Instructions: until symptoms of low blood sugar are controlled Eliquis 5 mg Tablet 2.5 mg PO BID pantoprazole 40 mg Tablet,Delayed Release (Dr/Ec) 40 mg PO DAILY tacrolimus [Prograf] 1 mg Capsule 2 mg PO Q12H ondansetron HCl 4 mg Tablet 4 mg PO Q8H PRN (Reason: NAUSEA/VOMITING ) Senna Plus 8.6-50 mg Capsule 1 tab-cap PO BID sevelamer HCl 800 mg tablet 2,400 mg PO TIDCM Rx Instructions: must administer with a meal/food levothyroxine 150 mcg tablet 150 mcg PO DAILY@0600 acetaminophen 650 mg suppository 650 mg MO Q4H PRN (Reason: PAIN/FEVER) magnesium hydroxide [Milk of Magnesia] 400 mg/5 mL suspension 30 ml PO DAILY PRN (Reason: CONSTIPATION ) Benadryl Extra Strength 2-0.1 % cream 1 applic topical Q6H PRN (Reason: ITCHING ) ciclopirox 8 % solution 1 applic topical QHS Rx Instructions: APPLY ONE APPLICATION TOPICALLY TO RIGHT THUMB AT BEDTIME FOR NAIL FUNGUS escitalopram oxalate [Lexapro] 10 mg tablet 15 mg PO QHS B complex-vitamin C-folic acid 0.8 mg tablet 1 tab PO QPM insulin lispro 100 unit/mL insulin pen 1 sliding scale dose subcut TIDCM Protocol: 6. Sliding Scale Insulin Custom Condition: 180-200 mg/dl range Dose/Route: 2 Number of Units Condition: 201-250 Dose/Route: 3 Condition: 251-300 Dose/Route: 4 Condition: 301-350 Dose/Route: 5 Condition: 351-400 Dose/Route: 6 Condition: 401-450 Dose/Route: 7 Condition: >451 Dose/Route: call MD Protocol Text: Custom Sliding Scale guaifenesin [Adult Tussin Chest Congestion] 100 mg/5 mL liquid 200 mg PO Q4H PRN (Reason: COUGH/CONGESTION ) Fleet Enema 19-7 gram/118 mL enema 118 ml MO DAILY PRN (Reason: constipation) tobramycin sulfate 40 mg/mL solution 100 mg IV Q24H Rx Instructions: 100mg given with dialysis on Mon, Tues, Thurs, and Fri. Twice weekly bmp, cbc, tobramycin trough prior to HD, and esr. Fax to [phone]. nystatin [Nyamyc] 100,000 unit/gram Powder 1 applic topical BID Qty: 0 0RF Protocol: *Topical Application Instructions APPLICATION INSTRUCTIONS: apply to groin and abdominal folds clonidine HCl 0.1 mg tablet 0.25 mg PO Q12H Rx Instructions: hold if bp is less than 100/60 carvedilol [Coreg] 25 mg tablet 50 mg PO BID Rx Instructions: must administer with a meal/food insulin lispro 100 unit/mL solution 5 unit subcut TID Rx Instructions: HOLD FOR BS LESS THAN 120 insulin glargine [Lantus Solostar U-100 Insulin] 100 unit/mL (3 mL) insulin pen 8 unit subcut QPM methyl salicylate-menthol Cream 1 applic topical BID Rx Instructions: APPLY TO SHOULDERS FOR PAIN hydroxyzine HCl 25 mg tablet 25 mg PO Q6H PRN (Reason: itching) midodrine 10 mg tablet 10 mg PO DAILY PRN (Reason: hypotension) Rx Instructions: BEFORE DIALYSIS aluminum-magnesium hydroxide 200-200 mg/5 mL suspension 30 ml PO Q4H PRN (Reason: GI DISTRESS ) glucagon HCl [Glucagon (HCl) Emergency Kit] 1 mg recon soln 1 mg IM Q20M PRN (Reason: HYPOGLYCEMIA ) polyethylene glycol 3350 [Miralax] 17 gram/dose powder 17 g PO Q24H PRN (Reason: CONSTIPATION ) melatonin 3 mg Tablet 9 mg PO Q24H PRN (Reason: INSOMNIA ) hydralazine 50 mg Tablet 50 mg PO TID Primary Care Provider: Vanessa Hutchins Referrals: Vanessa Hutchins MD [Primary Care Provider] - Activity Restrictions/Additional Instructions: Thank you for trusting us with your care today! Please take Tylenol (2 pills, 650 mg) every 6 hours as needed for pain and fever control. Please return to the emergency department if your symptoms change or worsen. Please follow with your primary care physician for further outpatient evaluation and management. Print Language: Panamanian Disposition Disposition: Home, Self Care
[2024-07-05 14:10] LABS: Hematocrit 30.1 % (40-54); Hemoglobin 9.6 g/dL (13.0-16.5); Mean Corp Hgb Conc 31.9 g/dL (32-36); Mean Corpuscular Hgb 29.2 pg (27.0-32.0); Mean Corpuscular Volume 91.5 fL (80-94); Mean Platelet Vol. 11.6 fl (6.2-12.0); Platelet Count 115 K/mm3 (150-450); RBC Distribution Width CV 15.9 % (11.6-14.6); RBC Distribution Width SD 53.6 fl (35.1-43.9); Red Blood Count 3.29 M/mm3 (4.6-6.2); White Blood Count 5.8 K/mm3 (4.4-11.0)
--- NOTE | 2024-07-05 14:10 | RAD_ITS ---
STUDY: XR Tibia/Fibula 2 Views REASON FOR EXAM: Male, 38 years old. Pain TECHNIQUE: XR Tibia/Fibula 2 Views. LEFT COMPARISON: None. FINDINGS: There is demineralization of the tibia. There is demineralization of the fibula. Diffuse dystrophic calcifications around the amputation stump site. Vascular calcifications. Metal staple in the lateral tibial plateau. Soft tissue flap overlying the BKA stump. RAD/Tibia & Fibula 2 Views IMPRESSION: Evidence for below knee amputation. Electronically Signed: Sujit Saravia MD at 14:27 EST ,
--- NOTE | 2024-07-05 14:10 | RAD_ITS ---
EXAM: XR CHEST, 1 VIEW CLINICAL INDICATION: sepsis TECHNIQUE: Frontal view of the chest. COMPARISON: April 13, 2024 FINDINGS: LUNGS AND PLEURAL SPACES: Prominent pulmonary vascular markings. This suggests pulmonary edema. This is improved since the prior study. No pneumothorax. No effusion. HEART: Diffuse enlargement of the heart. MEDIASTINUM: Central airways and mediastinal contour are unremarkable. BONES/JOINTS: Unremarkable. No acute fracture. SOFT TISSUES: Unremarkable. RAD/Chest 1 View (Portable) IMPRESSION: 1. Prominent pulmonary vascular markings. This suggests pulmonary edema. This is improved since the prior study. 2. Diffuse enlargement of the heart. Electronically Signed: Sujit Saravia MD at 14:34 EST ,
[2024-07-05 14:32] LABS: Anion Gap 9 (5-15); BUN 60 mg/dL (7-18); BUN/Creat Ratio 7.3 RATIO (10-20); Calcium,Total 9.3 mg/dL (8.5-10.1); Chloride 98 mmol/L (98-107); Creatinine, Serum 8.21 mg/dL (0.70-1.30); EST Glomerular Filtration Rate 8 mL/min (>60); Est Glom Filt Rate - Afr Amer 10 mL/min (>60); Estimated Creatinine Clearance 16.64 ml/min; Glucose 141 mg/dL (74-106); Potassium 4.9 mmol/L (3.5-5.1); Sodium Level 138 mmol/L (136-145)
[2024-07-05 14:50] LABS: Lactic Acid 0.8 mmol/L (0.4-1.9)
[2024-07-05 15:26] VITALS: BP 174/82; PULSE 70; RESP 18; O2SAT 95
[2024-07-05] MEDS: hydrALAZINE 50 MG Tablet 100 MG PO (15:42)
--- NOTE | 2024-07-05 15:54 | ED.RN ---
REPORT CALLED TO NURSE, ТАТЬЯНА, AT [facility] AND INFORMED THAT PATIENT WOULD BE RETURNING TO FACILITY VIA AMBULANCE.
[2024-07-05 16:08] VITALS: BP 193/87; PULSE 72; RESP 18; TEMP 36.9; O2SAT 94
--- NOTE | 2024-07-05 16:10 | ED.RN ---
PT OKAY TO BE DISCHARGED WITH BP 193/87. ORAL DOSE OF HYDRALAZINE GIVEN.
[2024-07-05 17:00] VITALS: BP 201/87; PULSE 70; RESP 21; O2SAT 92
== END 2024-07-05 20:55 | disposition home or self-care (01) ==
PROVIDERS: Emergency Provider Emergency Medicine; PCP Internal Medicine; Visit Provider Emergency Medicine
DX: G54.6 Phantom limb syndrome with pain (principal); N18.6 End stage renal disease; Z89.612 Acquired absence of left leg above knee; T87.89 Other complications of amputation stump; E11.22 Type 2 diabetes mellitus with diabetic chronic kidney disease; Z79.4 Long term (current) use of insulin; Y83.5 Amputation of limb(s) as the cause of abnormal reaction of the patient, or of later complication, without mention of misadventure at the time of the procedure; D63.8 Anemia in other chronic diseases classified elsewhere; R50.9 Fever, unspecified; E78.5 Hyperlipidemia, unspecified; D69.6 Thrombocytopenia, unspecified; Z79.01 Long term (current) use of 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; Z79.890 Hormone replacement therapy; Z79.899 Other long term (current) drug therapy
CPT/HCPCS: 71045; 73590; 80048; 83605; 85027; 99284; A4216

== ENCOUNTER → 2024-07-09 | Outpatient (REF) | payer MEDICARE, MEDICAID, SELFPAY ==
[2024-07-09 08:22] LABS: Hematocrit 31.5 % (40-54); Hemoglobin 9.6 g/dL (13.0-16.5); Mean Corp Hgb Conc 30.5 g/dL (32-36); Mean Corpuscular Hgb 28.7 pg (27.0-32.0); Mean Platelet Vol. 11.7 fl (6.2-12.0); Platelet Count 125 K/mm3 (150-450); RBC Distribution Width CV 15.9 % (11.6-14.6); RBC Distribution Width SD 54.9 fl (35.1-43.9); Red Blood Count 3.35 M/mm3 (4.6-6.2); White Blood Count 3.6 K/mm3 (4.4-11.0)
[2024-07-09 08:46] LABS: Anion Gap 10 (5-15); BUN 63 mg/dL (7-18); BUN/Creat Ratio 7.7 RATIO (10-20); Calcium,Total 9.2 mg/dL (8.5-10.1); Chloride 97 mmol/L (98-107); Creatinine, Serum 8.16 mg/dL (0.70-1.30); EST Glomerular Filtration Rate 8 mL/min (>60); Est Glom Filt Rate - Afr Amer 10 mL/min (>60); Glucose 138 mg/dL (74-106); Potassium 5.8 mmol/L (3.5-5.1); Sodium Level 137 mmol/L (136-145)
== END ==
LOC: OLS.SW 05:00
PROVIDERS: PCP Internal Medicine; Visit Provider Internal Medicine
DX: E11.9 Type 2 diabetes mellitus without complications (principal); R53.83 Other fatigue; R50.9 Fever, unspecified
CPT/HCPCS: 36415; 80048; 85027

== ENCOUNTER 2024-07-10 04:45 | Outpatient (REF) | payer MEDICARE, MEDICAID, SELFPAY | END 2024-07-10 23:59 | LOC: OLS.SW 04:45 | PROVIDERS: PCP Internal Medicine; Referring Provider Internal Medicine; Visit Provider Internal Medicine | DX: E11.9 Type 2 diabetes mellitus without complications (principal); R53.83 Other fatigue; R50.9 Fever, unspecified | CPT/HCPCS: 87633 ==

== ENCOUNTER → 2024-07-28 05:00 | Outpatient (REF) | payer MEDICARE, MEDICAID, SELFPAY ==
[2024-07-28 09:07] LABS: Anion Gap 7 (5-15); BUN 49 mg/dL (7-18); BUN/Creat Ratio 7.4 RATIO (10-20); Calcium,Total 8.8 mg/dL (8.5-10.1); Chloride 97 mmol/L (98-107); Creatinine, Serum 6.66 mg/dL (0.70-1.30); EST Glomerular Filtration Rate 10 mL/min (>60); Est Glom Filt Rate - Afr Amer 12 mL/min (>60); Glucose 133 mg/dL (74-106); Potassium 5.1 mmol/L (3.5-5.1); Sodium Level 136 mmol/L (136-145)
== END ==
LOC: OLS.SW 05:00
PROVIDERS: PCP Internal Medicine; Visit Provider Internal Medicine
DX: E78.5 Hyperlipidemia, unspecified (principal)
CPT/HCPCS: 36415; 80048

== ENCOUNTER → 2024-08-12 05:00 | Outpatient (REF) | payer MEDICARE, MEDICAID, SELFPAY ==
[2024-08-12 07:37] LABS: Anion Gap 9 (5-15); BUN 70 mg/dL (7-18); Calcium,Total 8.9 mg/dL (8.5-10.1); Chloride 94 mmol/L (98-107); Creatinine, Serum 7.75 mg/dL (0.70-1.30); EST Glomerular Filtration Rate 8 mL/min (>60); Est Glom Filt Rate - Afr Amer 10 mL/min (>60); Glucose 231 mg/dL (74-106); Potassium 5.5 mmol/L (3.5-5.1); Sodium Level 132 mmol/L (136-145)
== END ==
LOC: OLS.SW 05:00
PROVIDERS: PCP Internal Medicine; Visit Provider Internal Medicine
DX: E87.5 Hyperkalemia (principal)
CPT/HCPCS: 36415; 80048

== ENCOUNTER 2024-08-15 07:39 | Emergency (ER) | payer MEDICARE, MEDICAID, SELFPAY ==
[2024-08-15] VITALS (7 sets, daily range): BP systolic 107–128; BP diastolic 62–78; PULSE 71–94; RESP 15–19; TEMP 37.3–38.3; O2SAT 95–98
--- NOTE | 2024-08-15 07:48 | EX.ED.UPPERE ---
HPI History of Present Illness HPI Narrative: 38-year-old male history of cataracts and legally blind, hyponatremia, paraplegia, left lower leg amputation, end-stage renal disease with dialysis last dialyzed on Saturday, diabetes, DVT, anemia and anticoagulant Eliquis. Patient has had mild oozing from his fistula that started this morning. Prior similar episode. Denies any other complaints. Chief Complaint: Upper Extremity Injury Informant: patient Onset/Context/Timing Onset: Today and Hours Context: Gradual Onset Timing: Continuous Current Severity: Mild Maximum Severity: Mild Narrative Narrative: 38-year-old male on Eliquis gets dialyzed Saturday, Saturday and Saturday. Last dialysis yesterday. Has had mild oozing from his left forearm fistula since this morning. Prior history of the same. Denies any other complaints. 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 manager anticoagulation Acute hyperkalemia Acute alteration in mental status Phantom limb syndrome with pain Paraplegia Metabolic encephalopathy ESRD (end stage renal disease) on dialysis Hx of pulmonary embolus Type 2 diabetes mellitus End-stage renal disease on hemodialysis Anticoagulant long-term use History of deep vein thrombosis Anemia in chronic kidney disease, on chronic dialysis Acute postoperative pain horologist (current) use of 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 H/O deep venous thrombosis Osteomyelitis of pelvic region Lives in [facility] Anxiety Open wound Insulin dependent diabetes mellitus Uses wheelchair Injury of back Non-healing wound of amputation stump DM type 2, goal HbA1c < 7% 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 disease 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, stage 4 Neurogenic bowel Chronic kidney disease with end stage renal failure on dialysis Kidney transplant failure Dependence on renal dialysis Pressure ulcer of left heel, unspecified stage Gastro-esophageal reflux disease without esophagitis Other pericardial effusion (noninflammatory) Other pulmonary embolism without acute cor pulmonale Hypertensive heart and chronic kidney disease with heart failure and stage 1 through stage 4 chronic kidney disease, or unspecified chronic kidney disease Depression Hyperlipemia Hypothyroidism Anemia in chronic kidney disease Neuromuscular dysfunction of bladder, unspecified Paraplegia, incomplete Other acute osteomyelitis, left ankle and foot End stage renal disease Home Medications ?Medication ?Instructions ?Recorded ?Last Taken ?Type acetaminophen 325 mg tablet 650 mg PO Q4H PRN PAIN/FEVER 01/02/23 04/21/23 History apixaban 5 mg tablet (Eliquis) 2.5 mg PO BID AFIB pulm edema 01/02/23 07/16/23 History ascorbic acid (vitamin C) 500 mg 500 mg PO QHS SUPPLEMENT 01/02/23 12/08/23 History tablet atorvastatin 40 mg tablet 40 mg PO QHS CHOLESTEROL 01/02/23 12/08/23 History bisacodyl 10 mg rectal suppository 10 mg IN DAILY PRN CONSTIPATION 01/02/23 Unknown History carvedilol 12.5 mg tablet 12.5 mg PO BID HYPERTENSION 01/02/23 12/09/23 History dextrose 40 % oral gel (Glucose 15 g PO Q15M PRN HYPGLYCEMIA 01/02/23 Unknown History Gel) ondansetron HCl 4 mg tablet 4 mg PO Q8H PRN NAUSEA/VOMITING 01/02/23 Unknown History pantoprazole 40 mg tablet,delayed 40 mg PO DAILY ACID REFLUX 01/02/23 12/08/23 History release sennosides 8.6 mg-docusate sodium 1 tab-cap PO BID CONSTIPATION 01/02/23 07/16/23 History 50 mg capsule (Senna Plus) tacrolimus 1 mg capsule, 2 mg PO Q12H IMMUNOSUPPRESIVE 01/02/23 12/09/23 History immediate-release (Prograf) sevelamer HCl 800 mg tablet 2,400 mg PO TIDCM ESRD 04/21/23 07/16/23 History levothyroxine 150 mcg tablet 150 mcg PO DAILY@0600 THYROID 07/16/23 12/09/23 History acetaminophen 650 mg rectal 650 mg IN Q4H PRN PAIN/FEVER 08/06/23 Unknown History suppository magnesium hydroxide 400 mg/5 mL 30 ml PO DAILY PRN CONSTIPATION 08/06/23 Unknown History oral suspension (Milk of Magnesia) ciclopirox 8 % topical solution 1 applic topical QHS NAIL FUNGUS 11/17/23 Unknown History diphenhydramine-zinc acetate 2 1 applic topical Q6H PRN ITCHING 12/06/23 Unknown History %-0.1 % topical cream (Benadryl Extra Strength) escitalopram oxalate 10 mg tablet 15 mg PO QHS DEPRESSION 12/30/23 Unknown History (Lexapro) insulin lispro 100 unit/mL 1 sliding scale dose subcut TIDCM 03/22/24 Unknown History subcutaneous pen vitamin B complex-vitamin C-folic 1 tab PO QPM HEALTH MAINTENANCE 03/22/24 Unknown History acid 0.8 mg tablet guaifenesin 100 mg/5 mL oral 200 mg PO Q4H PRN COUGH/CONGESTION 03/29/24 Unknown History liquid (Adult Tussin Chest Congestion) aluminum-magnesium hydroxide 200 30 ml PO Q4H PRN GI DISTRESS 04/13/24 Unknown History mg-200 mg/5 mL oral suspension glucagon HCl 1 mg solution for 1 mg IM Q20M PRN HYPOGLYCEMIA 04/13/24 Unknown History injection (Glucagon (HCl) Emergency Kit) hydralazine 50 mg tablet 50 mg PO TID BLOOD PRESSURE 04/13/24 Unknown History melatonin 3 mg tablet 9 mg PO Q24H PRN INSOMNIA 04/13/24 Unknown History polyethylene glycol 3350 17 17 g PO Q24H PRN CONSTIPATION 04/13/24 Unknown History gram/dose oral powder (Miralax) sodium phosphates 19 gram-7 118 ml IN DAILY PRN constipation 04/22/24 Unknown History gram/118 mL enema (Fleet Enema) tobramycin sulfate 40 mg/mL 100 mg IV Q24H 04/22/24 Unknown History injection solution nystatin 100,000 unit/gram topical 1 applic topical BID #0 grams 04/26/24 Unknown Rx powder ([facility]) carvedilol 25 mg tablet (Coreg) 50 mg PO BID 06/27/24 Unknown History clonidine HCl 0.1 mg tablet 0.25 mg PO Q12H hypertension 06/27/24 Unknown History insulin glargine 100 unit/mL (3 8 unit subcut QPM DM 06/27/24 Unknown History mL) subcutaneous pen (Lantus Solostar U-100 Insulin) insulin lispro 100 unit/mL 5 unit subcut TID DM 06/27/24 Unknown History subcutaneous solution methyl salicylate-menthol topical 1 applic topical BID 06/27/24 Unknown History cream hydroxyzine HCl 25 mg tablet 25 mg PO Q6H PRN itching 07/05/24 Unknown History midodrine 10 mg tablet 10 mg PO DAILY PRN hypotension 07/05/24 Unknown History Allergy/AdvReac Type Severity Reaction Status Date / Time No Known Allergies Allergy Verified 07/05/24 13:25 Family History Mother Hypertension Diabetes Father Hypertension Diabetes Surgical History History of kidney transplant S/P unilateral above knee amputation S/P foot surgery S/P colostomy Social History housing: [facility] Smoking Status: Never smoker alcohol intake: never substance use type: does not use ROS ROS ED ROS Narrative Denies recent illness. Constitutional Constitutional ED: Denies chills or fever(s) Eyes Eyes: Reports blurry vision and other Details: Likely blind. Cataracts. ENT ENT ED: Denies ear pain Cardiovascular Cardiovascular: Denies chest pain Respiratory/Chest Respiratory/Chest: Denies cough Gastrointestinal Gastrointestinal: Denies abdominal pain Genitourinary Genitourinary ED: Denies dysuria Musculoskeletal Musculoskeletal: Denies back pain Integumentary Denies abscess Neurologic Neurologic: Denies headache(s) Psychiatric Psychiatric: Denies anxiety Endocrine Endocrinology: Denies cold intolerance Hematologic/Lymphatic Hematologic/Lymphatic: Reports easy bleeding and other Details: On the blood thinner Eliquis. Allergic/Immunologic Allergic/Immunologic ED: Denies mouth swelling, tongue swelling or urticaria EXAM Physical Exam Narrative Exam Narrative: Well-appearing 38-year-old male. Vital signs are stable. He is afebrile. He does not look septic or toxic he is in no distress. Pulse ox is 95% on 4 L. H EENT exam is Cilodex bilaterally. He is legally blind. He can see shapes and shadows. Extra motions are intact. No tremor facial trauma. Moist mucous membranes. Neck nontender. Lungs clear to auscultation bilaterally. Heart regular rhythm no murmur. Chest wall nontender. Abdomen soft nontender. Moving all 4 extremities. Left below the knee amputation which is old. Left forearm fistula very small bleeding. There was a dressing on which we removed. Will place Surgicel and hold direct pressure. He is able to squeeze either hand. He is awake and alert. He is answering questions and following commands. Const Vital Signs: 08/15/24 07:40 Temperature 99.2 F H Temperature Source Oral Pulse Rate 84 Respiratory Rate 19 H Blood Pressure 128/67 H Blood Pressure Mean 87 Pulse Ox 95 Oxygen Delivery Method Nasal Cannula Oxygen Flow Rate (L/min) 4 Positive well nourished and well developed; Negative for cachectic, contractures or unkempt General Appearance ED: well developed and NAD; Negative for unkempt, cachectic, contractures, cyanotic or diaphoretic Nutritional Appearance: Negative for cachectic HEENT Reports moist mucous membranes normocephalic and atraumatic; Negative for trauma or tenderness Eyes EOMs intact bilaterally; Negative for PERRL Eyes Narrative: Legally blind. Cataracts bilaterally. Neck full ROM and supple General: Negative for tenderness Chest Wall inspection of chest normal and palpation of chest normal Resp normal respiratory effort and clear to auscultation bilaterally Effort and Inspection: Negative for pain with movement Auscultation: Negative for rales, rhonchi, wheezes or diminished lung sounds Cardio regular rate, regular rhythm, S1 normal heart sound, S2 normal heart sound and no murmurs Rate: Negative for bradycardia or tachycardic Rhythm: Negative for abnormal rhythm GI non-tender, non-distended and no masses Palpation: soft; Negative for tender, guarding or rebound tenderness present Back/Spine no CVA tenderness General Back: Negative for CVA tenderness Cervical Spine: Negative for cervical spine tenderness Thoracic Spine / Upper Back: Negative for thoracic spinal tenderness Lumbar Spine / Lower Back: Negative for lumbar spinal tenderness Extremity normal to inspection and full ROM Extremity Narrative: Left forearm fistula good thrill. Pinpoint area of bleeding from most likely a recent puncture site. No cellulitis. Normal snuff drier strength. Normal radial pulse. Left lower extremity below the knee amputation. Neuro moves all extremities and no focal motor deficits Sensorium / Orientation: alert, oriented to person and oriented to place Motor Exam: strength 5/5 throughout Psych mental status grossly normal Appearance: Negative for unkempt Mood & Affect: Negative for depressed, anxious or tearful Skin General Skin Exam: Negative for petechiae Lesions: no lesions Rashes: no rashes MDM MDM MDM Narrative Medical decision making narrative: 38-year-old male gets dialysis of the left arm fistula has very mild bleeding. Surgicel will be applied and pressure dressing and to be reassessed to see if we get the bleeding stopped that way. He recently had labs done that I reviewed. Multiple repeat exams we can always get the bleeding to slow but never stopped. We held direct pressure. We put pressure wraps on it. We dried Surgicel. Each time he started bleeding again. I then locally anesthetized the area with lidocaine. Cleansed it with Shur-Clens and saline prior. Placed a [id number] 4-0 Vicryl stitch. There is currently no bleeding whatsoever. I have watched for 10 minutes and the bleeding is completely resolved. This will be dressed and I will be discharged back to the extended-care facility. Patient is comfortable with the plan. Currently he is drinking apple juice and they ordered him a tray. While the patient has been here and has been here numerous hours he developed a low-grade temperature of 100.9. We given Tylenol. We will do a rapid flu test. Will obtain a COVID and flu primarily for the extended-care facility. Because clinically patient looks well. He is having no complaints. History & Record Review Additional record(s) reviewed:: Prior inpatient record, Prior outpatient record, Prior ED visit and Prior labs Discharge Plan Triage Chief Complaint: Upper Extremity Injury ED Provider: Ayo Foss Dx/Rx/DC Orders Clinical Impression: Bleeding, Anemia of chronic illness, History of diabetes mellitus, Chronic anticoagulation, End-stage renal disease needing dialysis Prescriptions: No Action atorvastatin 40 mg Tablet 40 mg PO QHS acetaminophen 325 mg Tablet 650 mg PO Q4H PRN (Reason: PAIN/FEVER) carvedilol 12.5 mg Tablet 12.5 mg PO BID ascorbic acid (vitamin C) 500 mg Tablet 500 mg PO QHS bisacodyl 10 mg Suppository 10 mg IN DAILY PRN (Reason: CONSTIPATION ) dextrose [Glucose Gel] 40 % Gel 15 g PO Q15M PRN (Reason: HYPGLYCEMIA ) Rx Instructions: until symptoms of low blood sugar are controlled Eliquis 5 mg Tablet 2.5 mg PO BID pantoprazole 40 mg Tablet,Delayed Release (Dr/Ec) 40 mg PO DAILY tacrolimus [Prograf] 1 mg Capsule 2 mg PO Q12H ondansetron HCl 4 mg Tablet 4 mg PO Q8H PRN (Reason: NAUSEA/VOMITING ) Senna Plus 8.6-50 mg Capsule 1 tab-cap PO BID sevelamer HCl 800 mg tablet 2,400 mg PO TIDCM Rx Instructions: must administer with a meal/food levothyroxine 150 mcg tablet 150 mcg PO DAILY@0600 acetaminophen 650 mg suppository 650 mg IN Q4H PRN (Reason: PAIN/FEVER) magnesium hydroxide [Milk of Magnesia] 400 mg/5 mL suspension 30 ml PO DAILY PRN (Reason: CONSTIPATION ) Benadryl Extra Strength 2-0.1 % cream 1 applic topical Q6H PRN (Reason: ITCHING ) ciclopirox 8 % solution 1 applic topical QHS Rx Instructions: APPLY ONE APPLICATION TOPICALLY TO RIGHT THUMB AT BEDTIME FOR NAIL FUNGUS escitalopram oxalate [Lexapro] 10 mg tablet 15 mg PO QHS B complex-vitamin C-folic acid 0.8 mg tablet 1 tab PO QPM insulin lispro 100 unit/mL insulin pen 1 sliding scale dose subcut TIDCM Protocol: 6. Sliding Scale Insulin Custom Condition: 180-200 mg/dl range Dose/Route: 2 Number of Units Condition: 201-250 Dose/Route: 3 Condition: 251-300 Dose/Route: 4 Condition: 301-350 Dose/Route: 5 Condition: 351-400 Dose/Route: 6 Condition: 401-450 Dose/Route: 7 Condition: >451 Dose/Route: call MD Protocol Text: Custom Sliding Scale guaifenesin [Adult Tussin Chest Congestion] 100 mg/5 mL liquid 200 mg PO Q4H PRN (Reason: COUGH/CONGESTION ) Fleet Enema 19-7 gram/118 mL enema 118 ml IN DAILY PRN (Reason: constipation) tobramycin sulfate 40 mg/mL solution 100 mg IV Q24H Rx Instructions: 100mg given with dialysis on Mon, Tues, Thurs, and Fri. Twice weekly bmp, cbc, tobramycin trough prior to HD, and esr. Fax to [phone]. nystatin [Nyamyc] 100,000 unit/gram Powder 1 applic topical BID Qty: 0 0RF Protocol: *Topical Application Instructions APPLICATION INSTRUCTIONS: apply to groin and abdominal folds clonidine HCl 0.1 mg tablet 0.25 mg PO Q12H Rx Instructions: hold if bp is less than 100/60 carvedilol [Coreg] 25 mg tablet 50 mg PO BID Rx Instructions: must administer with a meal/food insulin lispro 100 unit/mL solution 5 unit subcut TID Rx Instructions: HOLD FOR BS LESS THAN 120 insulin glargine [Lantus Solostar U-100 Insulin] 100 unit/mL (3 mL) insulin pen 8 unit subcut QPM methyl salicylate-menthol Cream 1 applic topical BID Rx Instructions: APPLY TO SHOULDERS FOR PAIN hydroxyzine HCl 25 mg tablet 25 mg PO Q6H PRN (Reason: itching) midodrine 10 mg tablet 10 mg PO DAILY PRN (Reason: hypotension) Rx Instructions: BEFORE DIALYSIS aluminum-magnesium hydroxide 200-200 mg/5 mL suspension 30 ml PO Q4H PRN (Reason: GI DISTRESS ) glucagon HCl [Glucagon (HCl) Emergency Kit] 1 mg recon soln 1 mg IM Q20M PRN (Reason: HYPOGLYCEMIA ) polyethylene glycol 3350 [Miralax] 17 gram/dose powder 17 g PO Q24H PRN (Reason: CONSTIPATION ) melatonin 3 mg Tablet 9 mg PO Q24H PRN (Reason: INSOMNIA ) hydralazine 50 mg Tablet 50 mg PO TID Primary Care Provider: Vanessa Hutchins Referrals: Vanessa Hutchins MD [Primary Care Provider] - As Needed Activity Restrictions/Additional Instructions: Placed a dissolvable 4-0 Vicryl suture in his left forearm which was able to completely stop the bleeding. Then we placed a dressing. If it rebleeds direct pressure. If unable to stop return. Remarkable for mechanical Print Language: Chinese Disposition Disposition: Home, Self Care
--- NOTE | 2024-08-15 09:18 | ED.RN ---
Taisha KHANNA updated [phone]
[2024-08-15] MEDS: Lidocaine 1% (20 ml mdv) 20 ML Vial 5 ML INFILT (12:22)
[2024-08-15] MEDS: Acetaminophen 500 MG Tablet 1000 MG PO (16:35)
--- NOTE | 2024-08-15 16:43 | ED.RN ---
This RN called report to [facility].
== END 2024-08-15 17:16 ==
PROVIDERS: Emergency Provider Emergency Medicine; PCP Internal Medicine; Visit Provider Emergency Medicine
DX: T82.838A Hemorrhage due to vascular prosthetic devices, implants and grafts, initial encounter (principal); I13.2 Hypertensive heart and chronic kidney disease with heart failure and with stage 5 chronic kidney disease, or end stage renal disease; G82.22 Paraplegia, incomplete; N18.6 End stage renal disease; I50.9 Heart failure, unspecified; E11.22 Type 2 diabetes mellitus with diabetic chronic kidney disease; Z79.4 Long term (current) use of insulin; R50.9 Fever, unspecified; Z11.52 Encounter for screening for COVID-19; E78.5 Hyperlipidemia, unspecified; D63.8 Anemia in other chronic diseases classified elsewhere; E03.9 Hypothyroidism, unspecified; Y71.2 Prosthetic and other implants, materials and accessory cardiovascular devices associated with adverse incidents; H54.8 Legal blindness, as defined in USA; Z99.2 Dependence on renal dialysis; Z79.01 Long term (current) use of 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; Z79.890 Hormone replacement therapy; Z79.899 Other long term (current) drug therapy
CPT/HCPCS: 12001; 87631; 99285; A4216

== ENCOUNTER → 2024-08-18 05:00 | Outpatient (REF) | payer MEDICARE, MEDICAID, SELFPAY ==
[2024-08-18 08:20] LABS: Anion Gap 6 (5-15); BUN 40 mg/dL (7-18); BUN/Creat Ratio 5.5 RATIO (10-20); Calcium,Total 8.7 mg/dL (8.5-10.1); Chloride 99 mmol/L (98-107); Creatinine, Serum 7.33 mg/dL (0.70-1.30); EST Glomerular Filtration Rate 9 mL/min (>60); Est Glom Filt Rate - Afr Amer 11 mL/min (>60); Glucose 177 mg/dL (74-106); Potassium 4.4 mmol/L (3.5-5.1); Sodium Level 138 mmol/L (136-145)
== END ==
LOC: OLS.SW 05:00
PROVIDERS: PCP Internal Medicine; Visit Provider Internal Medicine
DX: E78.5 Hyperlipidemia, unspecified (principal)
CPT/HCPCS: 36415; 80048

== ENCOUNTER → 2024-08-25 04:00 | Outpatient (REF) | payer MEDICARE, MEDICAID, SELFPAY ==
[2024-08-25 08:50] LABS: Anion Gap 8 (5-15); BUN 39 mg/dL (7-18); BUN/Creat Ratio 5.6 RATIO (10-20); Calcium,Total 8.7 mg/dL (8.5-10.1); Chloride 97 mmol/L (98-107); Creatinine, Serum 6.94 mg/dL (0.70-1.30); EST Glomerular Filtration Rate 10 mL/min (>60); Est Glom Filt Rate - Afr Amer 12 mL/min (>60); Glucose 246 mg/dL (74-106); Sodium Level 137 mmol/L (136-145)
== END ==
LOC: OLS.SW 04:00
PROVIDERS: PCP Internal Medicine; Referring Provider Internal Medicine; Visit Provider Internal Medicine
DX: E87.5 Hyperkalemia (principal)
CPT/HCPCS: 36415; 80048

== ENCOUNTER → 2024-09-03 | Outpatient (REF) | payer MEDICARE, MEDICAID, SELFPAY ==
[2024-09-03 10:52] LABS: Anion Gap 13 (5-15); BUN 57 mg/dL (4-19); BUN/Creat Ratio 8.8 RATIO (10-20); Carbon Dioxide 27.2 mmol/L (22.0-29.0); Chloride 94 mmol/L (96-108); Creatinine, Serum 6.5 mg/dL (0.8-1.3); EST Glomerular Filtration Rate 11 (>60); Glucose 165 mg/dL (70-99); Sodium Level 134 mmol/L (133-145)
== END ==
LOC: OLS.SW 04:00
PROVIDERS: PCP Internal Medicine; Referring Provider Internal Medicine; Visit Provider Internal Medicine
DX: E11.9 Type 2 diabetes mellitus without complications (principal)
CPT/HCPCS: 36415; 80048

== ENCOUNTER 2024-09-07 07:44 | Inpatient (IN) | payer MEDICARE, MEDICAID, SELFPAY ==
[2024-09-07] VITALS (12 sets, daily range): BP systolic 97–190; BP diastolic 37–100; PULSE 68–81; RESP 14–18; TEMP 36.3–36.6; O2SAT 86–98; BMI 40.1; BMI 38.0
--- NOTE | 2024-09-07 07:54 | EDS_ITS ---
HPI History of Present Illness Chief Complaint: Hypoglycemia Informant: patient and EMS Narrative Narrative: 38-year-old male is in [facility], he was taken to dialysis this morning, they did a little bit of dialysis but apparently he felt shaky and decreased level of consciousness, they checked his blood sugar and it was low at 50, so they called EMS who gave him some D10 prior to bringing him here. Patient states he feels better still just little tired. He denies having any pain anywhere. He admits to feeling like he had chills and a possible fever last night, and he has a cough. He feels a little dyspneic when he is coughing but not otherwise. De nies any other new symptoms. 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 H/O deep venous thrombosis Osteomyelitis of pelvic region Lives in [facility] Anxiety Open wound Insulin dependent diabetes mellitus Uses wheelchair Injury of back Non-healing wound of amputation stump DM type 2, goal HbA1c < 7% 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 disease 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, stage 4 Neurogenic bowel Chronic kidney disease with end stage renal failure on dialysis Kidney transplant failure Dependence on renal dialysis Pressure ulcer of left heel, unspecified stage Gastro-esophageal reflux disease without esophagitis Other pericardial effusion (noninflammatory) Other pulmonary embolism without acute cor pulmonale Hypertensive heart and chronic kidney disease with heart failure and stage 1 through stage 4 chronic kidney disease, or unspecified chronic kidney disease Depression Hyperlipemia Hypothyroidism Anemia in chronic kidney disease Neuromuscular dysfunction of bladder, unspecified Paraplegia, incomplete Other acute osteomyelitis, left ankle and foot End stage renal disease Home Medications ?Medication ?Instructions ?Recorded ?Last Taken ?Type acetaminophen 325 mg tablet 650 mg PO Q4H PRN PAIN/FEV ER 01/02/23 04/21/23 History apixaban 5 mg tablet (Eliquis) 2.5 mg PO BID AFIB pulm edema 01/02/23 07/16/23 History ascorbic acid (vitamin C) 500 mg 500 mg PO QHS SUPPLEM ENT 01/02/23 12/08/23 History tablet atorvastatin 40 mg tablet 40 mg PO QHS CHOLESTEROL 12/08/23 History bisacodyl 10 mg rectal suppository 10 mg AZ DAILY PRN CONSTIPATION 01/02/23 Unknown History dextrose 40 % oral gel (Glucose 15 g PO Q15M PRN HYPGL YCEMIA 01/02/23 Unknown History Gel) ondansetron HCl 4 mg tablet 4 mg PO Q8H PRN NAUSEA/VOM ITING 01/02/23 Unknown History pantoprazole 40 mg tablet,delayed 40 mg PO DAILY ACID REFLUX 01/02/23 12/08/23 History release sennosides 8.6 mg-docusate sodium 1 tab-cap PO BID CON STIPATION 01/02/23 07/16/23 History 50 mg capsule (Senna Plus) tacrolimus 1 mg capsule, 2 mg PO Q12H IMMUNOSUPPRESIV E 01/02/23 12/09/23 History immediate-release (Prograf) sevelamer HCl 800 mg tablet 2,400 mg PO TIDCM ESRD 07/16/23 History levothyroxine 150 mcg tablet 150 mcg PO DAILY@0600 THY ROID 07/16/23 12/09/23 History acetaminophen 650 mg rectal 650 mg AZ Q4H PRN PAIN/FEV ER 08/06/23 Unknown History suppository magnesium hydroxide 400 mg/5 mL 30 ml PO DAILY PRN CON STIPATION 08/06/23 Unknown History oral suspension (Milk of Magnesia) ciclopirox 8 % topical solution 1 applic topical QHS N AIL FUNGUS 11/17/23 Unknown History diphenhydramine-zinc acetate 2 1 applic topical Q6H AZ N ITCHING 12/06/23 Unknown History %-0.1 % topical cream (Benadryl Extra Strength) escitalopram oxalate 10 mg tablet 20 mg PO QHS DEPRESS ION 12/30/23 Unknown History (Lexapro) insulin lispro 100 unit/mL 1 sliding scale dose subcut TIDCM 03/22/24 Unknown History subcutaneous pen vitamin B complex-vitamin C-folic 1 tab PO QPM HEALTH MAINTENANCE 03/22/24 Unknown History acid 0.8 mg tablet guaifenesin 100 mg/5 mL oral 200 mg PO Q4H PRN COUGH/C ONGESTION 03/29/24 Unknown History liquid (Adult Tussin Chest Congestion) aluminum-magnesium hydroxide 200 30 ml PO Q4H PRN GI D ISTRESS 04/13/24 Unknown History mg-200 mg/5 mL oral suspension glucagon HCl 1 mg solution for 1 mg IM Q20M PRN HYPOGL YCEMIA 04/13/24 Unknown History injection (Glucagon (HCl) Emergency Kit) hydralazine 50 mg tablet 50 mg PO TID BLOOD PRESSURE 04/13/24 Unknown History melatonin 3 mg tablet 9 mg PO Q24H PRN INSOMNIA Unknown History polyethylene glycol 3350 17 17 g PO Q24H PRN CONSTIPAT ION 04/13/24 Unknown History gram/dose oral powder (Miralax) sodium phosphates 19 gram-7 118 ml AZ DAILY PRN consti pation 04/22/24 Unknown History gram/118 mL enema (Fleet Enema) tobramycin sulfate 40 mg/mL 100 mg IV Q24H 04/22/24 Un known History injection solution nystatin 100,000 unit/gram topical 1 applic topical BI D #0 grams 04/26/24 Unknown Rx powder ([facility]) carvedilol 25 mg tablet (Coreg) 50 mg PO BID 06/27/24 Unknown History clonidine HCl 0.1 mg tablet 0.25 mg PO Q12H hypertensi on 06/27/24 Unknown History insulin glargine 100 unit/mL (3 8 unit subcut QPM DM 1 08/28/23 Unknown History mL) subcutaneous pen (Lantus Solostar U-100 Insulin) insulin lispro 100 unit/mL 5 unit subcut TID DM Unknown History subcutaneous solution methyl salicylate-menthol topical 1 applic topical BID 06/27/24 Unknown History cream hydroxyzine HCl 25 mg tablet 25 mg PO Q6H PRN itching 07/05/24 Unknown History midodrine 10 mg tablet 10 mg PO DAILY hypotension 1 09/05/23 Unknown History calcitriol 0.5 mcg capsule 0.5 mcg PO MOWEFR 09/07/24 Unknown History Allergy/AdvReac Type Severity Reaction Status Date / Time No Known Allergies Allergy Verified 09/07/24 07:56 Family History Mother Hypertension Diabetes Father Hypertension Diabetes Surgical History History of kidney transplant S/P unilateral above knee amputation S/P foot surgery S/P colostomy Social History housing: [facility] Smoking Status: Never smoker alcohol intake: never substance use type: does not use ROS ROS ED Constitutional Constitutional ED: Reports chills, fatigue, fever(s) and subjective Eyes Eyes: Denies change in vision or diplopia ENT ENT ED: Denies rhinorrhea or sore throat Cardiovascular Cardiovascular: Denies chest pain, orthopnea, palpitations or paroxysmal nocturnal dyspnea Respiratory/Chest Respiratory/Chest: Reports cough; Denies orthopnea or paroxysmal nocturnal dyspnea Gastrointestinal Gastrointestinal: Denies abdominal pain, diarrhea, nausea or vomiting Genitourinary Genitourinary ED: Denies dysuria or hematuria Musculoskeletal Musculoskeletal: Denies back pain or neck pain Integumentary Denies abscess or rash Neurologic Neurologic: Denies headache(s), paresthesias or weakness Psychiatric Psychiatric: Denies anxiety or suicidal thoughts EXAM Physical Exam Const Vital Signs: 09/07/24 07:45 09/07/24 08:04 09/07/24 08:38 Temperature 97.4 F L Temperature Source Temporal Pulse Rate 74 Respiratory Rate 16 Respiratory Pattern Normal Blood Pressure 97/37 L Blood Pressure Mean 57 Pulse Ox 92 86 Oxygen Delivery Method Room Air Room Air Oxygen Flow Rate (L/min) 09/07/24 08:38 09/07/24 09:00 09/07/24 10:00 Temperature Temperature Source Pulse Rate 69 68 Respiratory Rate 16 14 Respiratory Pattern Blood Pressure 129/88 H 153/90 H Blood Pressure Mean 101 111 Pulse Ox 97 98 98 Oxygen Delivery Method Nasal Cannula Nasal Cannula Nasal Cannula Oxygen Flow Rate (L/min) 2 2 2 09/07/24 11:00 09/07/24 12:00 09/07/24 13:00 Temperature Temperature Source Pulse Rate 71 78 78 Respiratory Rate Respiratory Pattern Blood Pressure 157/91 H 136/89 H 139/89 H Blood Pressure Mean 113 104 105 Pulse Ox 96 96 98 Oxygen Delivery Method Oxygen Flow Rate (L/min) Positive well nourished and well developed General Appearance ED: well developed and NAD HEENT Reports moist mucous membranes normocephalic and atraumatic Eyes PERRL and EOMs intact bilaterally Neck full ROM, no lymphadenopathy and supple Resp normal respiratory effort and clear to auscultation bilaterally Cardio regular rate, regular rhythm and no murmurs Rate: Negative for tachycardic GI non-tender and non-distended GI Narrative: Stoma left lower quadrant with stool in it, no tenderness around it. Suprapubic catheter without any urine in the tubing, but the urine in the bag has lots of sediment and appears tea-colored, borderline opaque. Abdominal site appears benign. Auscultation: normoactive bowel sounds Palpation: soft Back/Spine no CVA tenderness General Back: other FROM Extremity normal to inspection Extremity Narrative: Status post left BKA, stump appears healthy and well-perfused no wounds General Extremety ED: Negative for edema, pulses abnormal or tenderness General Extremity: Negative for edema or pulses abnormal Neuro oriented x3, CN's II-XII intact bilaterally and no sensory deficits noted Neuro Narrative: Somnolent, alerts easily to voice and asking for his food so he can eat Sensorium / Orientation: awake and alert Motor Exam: general weakness Psych mental status grossly normal Skin no rashes or lesions noted and no wounds MDM MDM MDM Narrative Medical decision making narrative: While monitoring the patient's blood sugar and letting him eat something we ran some labs, chest x-ray because of his cough and chills, as well as a COVID/influenza swab. His white blood count is 23.4 which is unusual for him. He is not on prednisone or any medications that should do this artificially. Initial blood sugar 166 upon arrival here, so his blood sugar does not explain his somnolence although he is easily arousable and his airway is intact. His blood pressure is good, initially 97/37 but on recheck 107/47. He is hyperkalemic at 5.9, obtained an EKG, there may be some very mild peaking of T waves but there are no other EKG changes suggestive of hyperkalemia such as widened QRS or prolonged AZ. His two-view chest x-ray on my interpretation shows cardiomegaly and possibly an early left retrocardiac infiltrate, however radiology read it as normal. I waited for his viral swab to return/result, it is negative. His blood sugar and blood pressure remained stable but he is still lethargic, but arousable by voice. For these reasons I am sending him for a CT of the chest and abdomen/pelvis in order to evaluate for an occult pneumonia and/or other possible etiology of his leukocytosis and hypoglycemia. Were not able to test the urine sitting in the bag and he has not produced any fresh urine right now although infection of that is in the differential causing this as well. There is significant delay in disposition in this patient because it took 3-4 hours to get results of the CT scans. According to radiology interpretation which I agree with, shows atelectasis in the bases but not necessarily pneumonia, cholelithiasis, as well as a possibility of a wound in his sacrum. I asked the patient about this he states he had a wound but it healed and so we took a look at it, he does have healed scar tissue/wound there, there is no perianal tenderness he has some loose stool there, but there does not appear to be anything that appears infected right now. The etiology of his leukocytosis is unknown. He is hyperkalemic and needs to have dialysis so I had nursing leave his catheters in place on his aVF, there is a good thrill left forearm. The patient provided more history about his low blood sugar, he states that he was given insulin for he went to dialysis and he did not get a chance to eat before he went. I agree with him this may have caused his hypoglycemia especially since his blood sugar has been stable here. Discussed with hospitalist, agrees with getting blood cultures, clinically the patient looks well his blood sugar has been stable as has his blood pressure. Lab Data Attestation: I reviewed the patient's lab results. Labs: Laboratory Results - last 24 hr 09/07/24 09/07/24 09/07/24 07:47 07:59 10:16 WBC 23.4 H RBC 3.18 L Hgb 9.9 L Hct 30.9 L MCV 97.2 H MCH 31.1 MCHC 32.0 RDW Std Deviation 54.9 H RDW Coeff of Shanta 15.4 H Plt Count 143 L MPV 11.0 Immature Gran % (Auto) 1.400 H Neut % (Auto) 84.3 H Lymph % (Auto) 6.3 L [place] % (Auto) 6.6 Eos % (Auto) 1.1 Baso % (Auto) 0.3 Absolute Neuts (auto) 19.7 H Absolute Lymphs (auto) 1.48 Nucleated RBC % 0 Differential Comment COMMENT Diff Path Review May foll Sodium 132 L Potassium 5.9 H Chloride Direct 92 L Carbon Dioxide 25.4 Anion Gap 14 BUN 89 H Creatinine 8.88 H* Estim Creat Clear Calc 16.32 L Est GFR (MDRD) Non-Af 7 L BUN/Creatinine Ratio 10.0 Glucose 153 H Calcium 8.9 POC Glucose 166 H 172 H 09/07/24 14:54 WBC RBC Hgb Hct MCV MCH MCHC RDW Std Deviation RDW Coeff of Shanta Plt Count MPV Immature Gran % (Auto) Neut % (Auto) Lymph % (Auto) [place] % (Auto) Eos % (Auto) Baso % (Auto) Absolute Neuts (auto) Absolute Lymphs (auto) Nucleated RBC % Differential Comment Diff Path Review Sodium Potassium Chloride Direct Carbon Dioxide Anion Gap BUN Creatinine Estim Creat Clear Calc Est GFR (MDRD) Non-Af BUN/Creatinine Ratio Glucose Calcium POC Glucose 173 H Radiography Diagnostic Testing: Clinical Impression(s) from Imaging Studies Chest X-Ray 09/07/24 08:05 IMPRESSION: No acute cardiopulmonary process. Reading [facility] Chest/Abdomen/Pelvis CT 09/07/24 10:20 IMPRESSION: Atelectasis at the lung bases. Gallstones. Suprapubic catheter seen within a decompressed urinary bladder with diffuse bladder wall thickening. Decubitus ulcer in the left medial buttock with findings suggestive of chronic osteomyelitis of the left a skin. One or more dose reduction techniques were used (e.g., Automated exposure control, adjustment of the mA and/or kV according to patient size, use of iterative reconstruction technique). Reading Location: [id number] Rhythm Strip Rhythm Strip: Sinus Rhythm Rate: 70 Ectopy: None EKG Initial EKG: Attestation: I personally reviewed and interpreted this EKG as follows: Interpretation: Sinus Rhythm and No Acute Injury Pattern Comments: Borderline long QTc. Otherwise normal EKG with otherwise normal intervals and axis. Discharge Plan Dx/Rx/DC Orders Clinical Impression: Acute hyperkalemia, ESRD (end stage renal disease) on dialysis, Leukocytosis, Hypoglycemic reaction to insulin, Transient hypotension Disposition Disposition: Acute Care [facility]
[2024-09-07 08:05] LABS: Bedside Glucose 166 mg/dL (74-106)
--- NOTE | 2024-09-07 08:05 | RAD_ITS ---
EXAM: XR Chest, 2 Views CLINICAL INDICATION: TECHNIQUE: Frontal and lateral views of the chest. COMPARISON: No relevant prior studies available. FINDINGS: LUNGS AND PLEURAL SPACES: Unremarkable. No consolidation. No pneumothorax. HEART: Unremarkable. No cardiomegaly. MEDIASTINUM: Unremarkable. Normal mediastinal contour. BONES/JOINTS: Unremarkable. No acute fracture. RAD/Chest PA and Lateral IMPRESSION: No acute cardiopulmonary process. [facility]
[2024-09-07 08:09] LABS: Absolute Lymphocyte Count 1.48 X10^3/uL (0.83-4.51); Absolute Neutrophil Count 19.7 X10^3/uL (2.0-7.7); Basophil# 0.08 X10^3/uL; Basophil% 0.3 % (0-1); Eosinophil# 0.26 X10^3/uL; Eosinophils% 1.1 % (0-5); Hematocrit 30.9 % (40-54); Hemoglobin 9.9 g/dL (13.0-16.5); Lymphocyte # 1.48 X10^3/ul (0.83-4.51); Lymphocyte % 6.3 % (19-41); Mean Corpuscular Hgb 31.1 pg (27.0-32.0); Mean Corpuscular Volume 97.2 fL (80-94); Monocyte# 1.54 X10^3/uL; Monocyte% 6.6 % (0-10); NRBC Flagged by Analyzer 0 % (0-5); Neutrophil # 19.66 X10^3/uL (2.7-7.7); Neutrophil % 84.3 % (47-70); POSITIVE DIFFERENTIAL YES; Platelet Count 143 K/mm3 (150-450); RBC Distribution Width CV 15.4 % (11.6-14.6); RBC Distribution Width SD 54.9 fl (35.1-43.9); Red Blood Count 3.18 M/mm3 (4.6-6.2); White Blood Count 23.4 K/mm3 (4.4-11.0)
[2024-09-07 08:11] LABS: Differential Indicated SCAN CRITERIA MET
[2024-09-07 09:01] LABS: Anion Gap 14 (5-15); BUN 89 mg/dL (4-19); Calcium 8.9 mg/dL (7.6-11.0); Carbon Dioxide 25.4 mmol/L (22.0-29.0); Chloride 92 mmol/L (96-108); Creatinine, Serum 8.88 mg/dL (0.70-1.20); EST Glomerular Filtration Rate 7 (>60); Estimated Creatinine Clearance 16.32 ml/min (50-250); Glucose 153 mg/dL (70-99); Potassium 5.9 mmol/L (3.3-5.1); Sodium Level 132 mmol/L (133-145)
--- NOTE | 2024-09-07 09:04 | EKG12_ITS ---
Test Reason : DIAPHREITIC Blood Pressure : */* mmHG Vent. Rate : 80 BPM Atrial Rate : 80 BPM P-R Int : 168 ms QRS Dur : 88 ms QT Int : 384 ms P-R-T Axes : 39 26 33 degrees QTcB Int : 442 ms Normal sinus rhythm Possible Left atrial enlargement Borderline ECG When compared with ECG of 07-Sep-2024 09:11, MANUAL COMPARISON REQUIRED DATA IS UNCONFIRMED Confirmed by Benedicto Kendrick ([id number]), newspaper copy editor DEANNA TOWNSEND ([id number]) on 09/08/2024 10:45:38 AM Referred By: MARIE Confirmed By: Benedicto Kendrick
[2024-09-07 09:10] LABS: Pathologist Review May foll
--- NOTE | 2024-09-07 09:11 | EKG12_ITS ---
Test Reason : Blood Pressure : */* mmHG Vent. Rate : 69 BPM Atrial Rate : 69 BPM P-R Int : 184 ms QRS Dur : 88 ms QT Int : 450 ms P-R-T Axes : 19 30 56 degrees QTcB Int : 482 ms Normal sinus rhythm Possible Left atrial enlargement Borderline Prolonged QT Borderline Confirmed by Benedicto Kendrick ([id number]), manager editorial JENS DANIELSON ([id number]) on 09/08/2024 10:59:12 AM Referred By: BRET Confirmed By: Benedicto Kendrick
--- NOTE | 2024-09-07 10:20 | CT_ITS ---
PROCEDURE: CT CHEST, ABD, PEL W/CONTRAST REASON FOR EXAM: End-stage renal disease. Renal transplant. Altered level of consciousness. TECHNIQUE: Chest, abdomen and pelvis CT with intravenous contrast. CONTRAST: COMPARISON: None. FINDINGS: CT CHEST: Hardware: None. Lymph nodes: No mediastinal hilar or axillary lymphadenopathy. Heart and Vasculature: Cardiomegaly. Thoracic aorta and pulmonary arteries are unremarkable. Coronary artery calcification. Lungs and Airways: Mild increased linear markings at the lung bases slightly more prominent on the left side suggestive of bibasilar atelectasis. Calcified granuloma in the right lower lobe. Pleura: No pleural effusion. No pneumothorax. Bones: Unremarkable. CT ABDOMEN/PELVIS: Liver: Unremarkable. Gallbladder: Gallstones are seen within the gallbladder lumen. Spleen: Unremarkable. Pancreas: Unremarkable. Adrenals: Unremarkable. Kidneys: Atrophy of the [place] kidneys. A transplant kidney is seen in the right hemipelvis. Bladder: A suprapubic catheter is seen within an empty urinary bladder. There is diffuse thickening of the urinary bladder wall. Reproductive Organs: Unremarkable. Bowel: A colostomy seen in the left lower quadrant. Appendix: Prior appendectomy. Lymph nodes: No suspicious lymph node enlargement. Vasculature: Mild diffuse atherosclerotic calcifications are noted. Atherosclerosis of the renal arteries. Peritoneum / Retroperitoneum: No ascites. No free air. Bones: Degenerative changes of the spine. There is evidence of persistent decubitus ulceration with scarring overlying the left CT/CT Chest, Abd, Pel w/Contrast IMPRESSION: Atelectasis at the lung bases. Gallstones. Suprapubic catheter seen within a decompressed urinary bladder with diffuse stiven dder wall thickening. Decubitus ulcer in the left medial buttock with findings suggestive of chronic osteomyelitis of the left a skin. One or more dose reduction techniques were used (e.g., Automated exposure contr ol, adjustment of the mA and/or kV according to patient size, use of iterative reconstruction technique). Reading Location: [id number]
[2024-09-07] MEDS: Sodium Polystyrene Sulfonate 15 GM/60 ML UDC PO (10:34)
[2024-09-07 10:36] LABS: Bedside Glucose 172 mg/dL (74-106)
[2024-09-07 15:15] LABS: Bedside Glucose 173 mg/dL (74-106)
--- NOTE | 2024-09-07 15:37 | PCM.HP.STD ---
HPI - General General Date of Admission: 09/07/24 Date of Service: 09/07/24 Chief Complaint: Altered mentation with shakiness HPI Narrative CHINA GUILLEN, is a 38 M who presented to [facility] ED on 09/07/2024 with altered mentation and shakiness. Patient history is significant for ESRD on HD, insulin-dependent diabetes and paraplegia with chronic sacral decubitus ulcer. He lives in a senior living. He is on dialysis MWF. He went to dialysis morning and they were able to complete some of his dialysis session but he became shaky and had altered level consciousness at that time. Blood glucose was found to be 50. They gave home a D10 bolus and discontinue dialysis, and he was sent to the ED for further evaluation. In the ED he was found to be hypertensive to the 160s to 170s but otherwise hemodynamically stable on room air. Labs notable for WBC count 23 with neutrophil predominance, sodium 132, potassium 5.9, chloride 92. His repeat glucose was improved to the 130s. CT chest abdomen pelvis with IV contrast showed suprapubic catheter with decompressed urinary bladder and diffuse bladder wall thickening, atelectasis at lung bases but no pneumonia, and a decubitus ulcer in the left medial buttock with findings suggestive of chronic osteomyelitis. Chronic buttock wound was evaluated by ED staff and they had low concern for active infection. Patient produces fairly minimal urine and unfortunate was unable to give a urine sample in the ED. Given his significant WBC count that is different from his normal and episode earlier today, hospitalist was contacted for admission. I saw the patient at bedside in the ED. Patient is blind at baseline but otherwise answers questions appropriately. He was alert and oriented x 3 for me today. Stated that he was given his home insulin as normal this morning but he had little to eat prior to dialysis, so he suspects that this is why he became hypoglycemic. He denies any lower abdominal pain or discomfort. Does report having some fevers and chills last night and this morning. He otherwise denies any concerning findings currently. [facility] Medical History (Updated 09/07/24 @ 18:13 by Su Mc) Chronic pain Chronic indwelling Hurst catheter Dialysis patient Kidney disease CPAP (continuous positive airway pressure) dependence Sleep apnea Hypertension Blind Encephalopathy Hyponatremia Hypertensive urgency Acute delirium Decubitus ulcer Abscess Left ischial pressure sore Open wound of left buttock with complication Current use of correction anticoagulation Acute hyperkalemia Acute alteration in mental status Phantom limb syndrome with pain Paraplegia Metabolic encephalopathy ESRD (end stage renal disease) on dialysis Hx of pulmonary embolus Type 2 diabetes mellitus End-stage renal disease on hemodialysis Anticoagulant long-term use History of deep vein thrombosis Anemia in chronic kidney disease, on chronic dialysis Acute postoperative pain shelter (current) use of 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 H/O deep venous thrombosis Osteomyelitis of pelvic region Lives in senior living Anxiety Open wound Insulin dependent diabetes mellitus Uses wheelchair Injury of back Non-healing wound of amputation stump DM type 2, goal HbA1c < 7% 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 disease 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, stage 4 Neurogenic bowel Chronic kidney disease with end stage renal failure on dialysis Kidney transplant failure Dependence on renal dialysis Pressure ulcer of left heel, unspecified stage Gastro-esophageal reflux disease without esophagitis Other pericardial effusion (noninflammatory) Other pulmonary embolism without acute cor pulmonale Hypertensive heart and chronic kidney disease with heart failure and stage 1 through stage 4 chronic kidney disease, or unspecified chronic kidney disease Depression Hyperlipemia Hypothyroidism Anemia in chronic kidney disease Neuromuscular dysfunction of bladder, unspecified Paraplegia, incomplete Other acute osteomyelitis, left ankle and foot End stage renal disease Home Medications ?Medication ?Instructions ?Recorded ?Last Taken ?Type acetaminophen 325 mg tablet 650 mg PO Q4H PRN PAIN/FEVER 01/02/23 04/21/23 History apixaban 5 mg tablet (Eliquis) 2.5 mg PO BID AFIB pulm edema 01/02/23 07/16/23 History ascorbic acid (vitamin C) 500 mg 500 mg PO QHS SUPPLEMENT 01/02/23 12/08/23 History tablet atorvastatin 40 mg tablet 40 mg PO QHS CHOLESTEROL 01/02/23 12/08/23 History bisacodyl 10 mg rectal suppository 10 mg PA DAILY PRN CONSTIPATION 01/02/23 Unknown History dextrose 40 % oral gel (Glucose 15 g PO Q15M PRN HYPGLYCEMIA 01/02/23 Unknown History Gel) ondansetron HCl 4 mg tablet 4 mg PO Q8H PRN NAUSEA/VOMITING 01/02/23 Unknown History pantoprazole 40 mg tablet,delayed 40 mg PO DAILY ACID REFLUX 01/02/23 12/08/23 History release sennosides 8.6 mg-docusate sodium 1 tab-cap PO BID CONSTIPATION 01/02/23 07/16/23 History 50 mg capsule (Senna Plus) tacrolimus 1 mg capsule, 2 mg PO Q12H IMMUNOSUPPRESIVE 01/02/23 12/09/23 History immediate-release (Prograf) sevelamer HCl 800 mg tablet 2,400 mg PO TIDCM ESRD 04/21/23 07/16/23 History levothyroxine 150 mcg tablet 150 mcg PO DAILY@0600 THYROID 07/16/23 12/09/23 History acetaminophen 650 mg rectal 650 mg PA Q4H PRN PAIN/FEVER 08/06/23 Unknown History suppository magnesium hydroxide 400 mg/5 mL 30 ml PO DAILY PRN CONSTIPATION 08/06/23 Unknown History oral suspension (Milk of Magnesia) ciclopirox 8 % topical solution 1 applic topical QHS NAIL FUNGUS 11/17/23 Unknown History diphenhydramine-zinc acetate 2 1 applic topical Q6H PRN ITCHING 12/06/23 Unknown History %-0.1 % topical cream (Benadryl Extra Strength) escitalopram oxalate 10 mg tablet 20 mg PO QHS DEPRESSION 12/30/23 Unknown History (Lexapro) insulin lispro 100 unit/mL 1 sliding scale dose subcut TIDCM 03/22/24 Unknown History subcutaneous pen vitamin B complex-vitamin C-folic 1 tab PO QPM HEALTH MAINTENANCE 03/22/24 Unknown History acid 0.8 mg tablet guaifenesin 100 mg/5 mL oral 200 mg PO Q4H PRN COUGH/CONGESTION 03/29/24 Unknown History liquid (Adult Tussin Chest Congestion) aluminum-magnesium hydroxide 200 30 ml PO Q4H PRN GI DISTRESS 04/13/24 Unknown History mg-200 mg/5 mL oral suspension glucagon HCl 1 mg solution for 1 mg IM Q20M PRN HYPOGLYCEMIA 04/13/24 Unknown History injection (Glucagon (HCl) Emergency Kit) hydralazine 50 mg tablet 50 mg PO TID BLOOD PRESSURE 04/13/24 Unknown History melatonin 3 mg tablet 9 mg PO Q24H PRN INSOMNIA 04/13/24 Unknown History polyethylene glycol 3350 17 17 g PO Q24H PRN CONSTIPATION 04/13/24 Unknown History gram/dose oral powder (Miralax) sodium phosphates 19 gram-7 118 ml PA DAILY PRN constipation 04/22/24 Unknown History gram/118 mL enema (Fleet Enema) tobramycin sulfate 40 mg/mL 100 mg IV Q24H 04/22/24 Unknown History injection solution nystatin 100,000 unit/gram topical 1 applic topical BID #0 grams 04/26/24 Unknown Rx powder (Nyamyc) carvedilol 25 mg tablet (Coreg) 50 mg PO BID 06/27/24 Unknown History clonidine HCl 0.1 mg tablet 0.25 mg PO Q12H hypertension 06/27/24 Unknown History insulin glargine 100 unit/mL (3 8 unit subcut QPM DM 06/27/24 Unknown History mL) subcutaneous pen (Lantus Solostar U-100 Insulin) insulin lispro 100 unit/mL 5 unit subcut TID DM 06/27/24 Unknown History subcutaneous solution methyl salicylate-menthol topical 1 applic topical BID 06/27/24 Unknown History cream hydroxyzine HCl 25 mg tablet 25 mg PO Q6H PRN itching 07/05/24 Unknown History midodrine 10 mg tablet 10 mg PO DAILY hypotension 07/05/24 Unknown History calcitriol 0.5 mcg capsule 0.5 mcg PO MOWEFR 09/07/24 Unknown History Allergy/AdvReac Type Severity Reaction Status Date / Time No Known Allergies Allergy Verified 09/07/24 07:56 Family History Mother Hypertension Diabetes Father Hypertension Diabetes Surgical History History of kidney transplant S/P unilateral above knee amputation S/P foot surgery S/P colostomy Social History housing: senior living Smoking Status: Never smoker alcohol intake: never substance use type: does not use ROS Constitutional Constitutional: Reports chills and fever(s); Denies fatigue or weakness Cardiovascular Cardiovascular: Denies chest pain Respiratory/Chest Respiratory/Chest: Denies shortness of breath at rest Gastrointestinal Gastrointestinal: Denies abdominal pain Genitourinary Genitourinary: Denies dysuria Musculoskeletal Musculoskeletal: Denies arthralgias or myalgias Vital Signs Vital Signs Vital Signs: 09/07/24 07:45 09/07/24 08:04 09/07/24 08:38 Temperature 97.4 F L Temperature Source Temporal Pulse Rate 74 Respiratory Rate 16 Respiratory Pattern Normal Blood Pressure 97/37 L Blood Pressure Mean 57 Pulse Ox 92 86 Oxygen Delivery Method Room Air Room Air Oxygen Flow Rate (L/min) 09/07/24 08:38 09/07/24 09:00 09/07/24 10:00 Temperature Temperature Source Pulse Rate 69 68 Respiratory Rate 16 14 Respiratory Pattern Blood Pressure 129/88 H 153/90 H Blood Pressure Mean 101 111 Pulse Ox 97 98 98 Oxygen Delivery Method Nasal Cannula Nasal Cannula Nasal Cannula Oxygen Flow Rate (L/min) 2 2 2 09/07/24 11:00 09/07/24 12:00 09/07/24 13:00 Temperature Temperature Source Pulse Rate 71 78 78 Respiratory Rate Respiratory Pattern Blood Pressure 157/91 H 136/89 H 139/89 H Blood Pressure Mean 113 104 105 Pulse Ox 96 96 98 Oxygen Delivery Method Oxygen Flow Rate (L/min) Weight Weight: 134.4 kg Body Mass Index (BMI) 40.1 Physical Exam Const alert, oriented x3 and no apparent distress Constitutional Narrative: Younger male, chronically ill and appears older than stated age, class II obesity, blind, mildly fatigued appearing but otherwise sitting back comfortably in bed, answering questions appropriately, in no acute distress. General Appearance: cooperative and comfortable HEENT normocephalic, head/scalp atraumatic, hearing grossly normal bilaterally and nasal mucous membranes and turbinates normal HEENT Narrative: Dry mucous membranes. Eyes EOMs intact bilaterally and conjunctivae normal Neck full ROM Chest inspection of chest normal Resp normal respiratory effort and no use of accessory muscles Resp Narrative: Breathing comfortably on 2 L nasal cannula at rest. Mild crackles noted at bilateral lung bases, otherwise good air movement throughout with no wheezing noted. Cardio regular rate, regular rhythm, no murmurs and peripheral pulses 2+ throughout GI normal to inspection, nondistended, normoactive bowel sounds, soft to palpation, non-tender and non-distended Negative for no CVA tenderness Narrative: Suprapubic catheter noted, no overt infection noted at site. Back/Spine normal ROM Extremity normal to inspection, full ROM and no pedal edema Skin no rashes or lesions noted Neuro Speech: speech normal Psych mental status grossly normal Results Lab / Micro Data 09/07/24 07:59 09/07/24 07:59 Labs: Laboratory Results - last 24 hr 09/07/24 07:47: POC Glucose 166 H 09/07/24 07:59: WBC 23.4 H, RBC 3.18 L, Hgb 9.9 L, Hct 30.9 L, MCV 97.2 H, MCH 31.1, MCHC 32.0, RDW Std Deviation 54.9 H, RDW Coeff of Shanta 15.4 H, Plt Count 143 L, MPV 11.0, Immature Gran % (Auto) 1.400 H, Neut % (Auto) 84.3 H, Lymph % (Auto) 6.3 L, [place] % (Auto) 6.6, Eos % (Auto) 1.1, Baso % (Auto) 0.3, Absolute Neuts (auto) 19.7 H, Absolute Lymphs (auto) 1.48, Nucleated RBC % 0, Differential Comment COMMENT, Diff Path Review November, Sodium 132 L, Potassium 5.9 H, Chloride Direct 92 L, Carbon Dioxide 25.4, Anion Gap 14, BUN 89 H, Creatinine 8.88 H*, Estim Creat Clear Calc 16.32 L, Est GFR (MDRD) Non-Af 7 L, BUN/Creatinine Ratio 10.0, Glucose 153 H, Calcium 8.9 09/07/24 10:16: POC Glucose 172 H 09/07/24 14:54: POC Glucose 173 H Micro: Microbiology 09/07/24 07:55 Mucosa - Nose SARS-CoV-2, Influenza & RSV (PCR) - Final Rhythm Strip Rhythm Strip: Sinus Rhythm Rate: 70 Ectopy: None Imaging Radiology Impression Chest X-Ray 09/07/24 08:05 IMPRESSION: No acute cardiopulmonary process. Reading [facility] Chest/Abdomen/Pelvis CT 09/07/24 10:20 IMPRESSION: Atelectasis at the lung bases. Gallstones. Suprapubic catheter seen within a decompressed urinary bladder with diffuse bladder wall thickening. Decubitus ulcer in the left medial buttock with findings suggestive of chronic osteomyelitis of the left a skin. One or more dose reduction techniques were used (e.g., Automated exposure control, adjustment of the mA and/or kV according to patient size, use of iterative reconstruction technique). Reading Location: [id number] Assessment & Plan Assessment/Plan (1) Complicated urinary tract infection: (2) Hypoglycemic reaction to insulin: PLAN: Plan Patient is a 38-year-old male who presented [facility] ED on 09/07/2024 with fever/chills and altered mentation. 1. Concern for multidrug-resistant UTI in setting of chronic urinary retention with suprapubic catheter ? Admit under inpatient status to PCU. Infectious disease consulted. Patient unable to give urine sample in the ED as he does not make much urine in setting of ESRD. CT abdomen pelvis showed diffuse bladder wall thickening and patient with notable leukocytosis that is different from baseline and subjective fever/chills. Patient with multidrug-resistant organisms in prior urine culture; will start patient on meropenem for now, appreciate ID recommendations. 2. Hypoglycemic episode in setting of insulin-dependent type 2 diabetes mellitus ? Suspected that hypoglycemic episode was secondary to home insulin dose given with minimal p.o. intake afterward. Improved with treatment at dialysis. Will treat with sliding scale insulin with meals for now, adjust as needed. 3. ESRD on HD with mild hyperkalemia ? Nephrology consulted. Potassium 5.9 on admit. EKG with no T wave changes. Will likely need dialysis on 09/08, can temporize potassium as needed prior to that point. Chronic medical conditions: ? Class II obesity: BMI 38 on admit. Complicates hospital course, care and prognosis. ? Paraplegia: Per history. Lives in senior living. Complicates hospital course, care and prognosis. ? Chronic sacral decubitus ulcer: History of infection secondary to this in April 2024. Does not appear acutely infected on this admission. Can consider wound care consult as needed. ? Hypertension: Continue home medications. ? Hypothyroidism: Continue home Synthroid. ? Paroxysmal A-fib: Continue home Eliquis and Coreg. ? Anxiety/depression: Continue home escitalopram. DVT prophylaxis: Not indicated, on Eliquis CODE STATUS: Full code, verified Expected disposition: Back to senior living, 2 to 3 days Total clinical time spent by myself addressing the patient's medical issues, reviewing all the data, and collaborating with patient's care team: 75 minutes. Charges/Coding Visit Charges Inpatient E&M: 51252 Init Hosp L3
[2024-09-07 19:06] LABS: Bedside Glucose 136 mg/dL (74-106)
[2024-09-07] MEDS: hydrALAZINE 50 MG Tablet PO (21:49)
[2024-09-07] MEDS: Folic Acid/Vitamin B Comp W-C 1 Capsule 1 CAP PO (21:49)
[2024-09-07] MEDS: Atorvastatin Calcium 40 MG Tablet PO (21:50)
[2024-09-07] MEDS: Insulin Lispro 100 UNIT/ML INSULN.PEN SC (21:50)
[2024-09-07] MEDS: APIXABAN 2.5 MG TABLET (WCH) PO (21:50)
[2024-09-07] MEDS: Escitalopram Oxalate 20 MG Tablet PO (21:50)
[2024-09-07] MEDS: Ascorbic Acid 500 MG Tablet PO (21:50)
[2024-09-07] MEDS: Tacrolimus Anhydrous 1 MG Capsule 2 MG PO (21:50)
[2024-09-07] MEDS: Carvedilol 25 MG Tablet PO (21:50)
[2024-09-07] MEDS: Acetaminophen 325 MG Tablet 650 MG PO (21:51)
[2024-09-07] MEDS: cloNIDine HCl 0.1 MG Tablet 0.25 MG PO (21:54)
[2024-09-08] VITALS (21 sets, daily range): BP systolic 113–238; BP diastolic 40–98; PULSE 78–94; RESP 15–20; TEMP 36.2–38.4; O2SAT 87–100; BMI 38.2; BMI 37.4
[2024-09-08] MEDS: Meropenem 500 MG in 0.9% Normal Saline (50mL MB+) 50 ML 100 MG IV (00:21)
[2024-09-08 00:24] LABS: Bedside Glucose 180 mg/dL (74-106)
[2024-09-08] MEDS: hydrALAZINE 50 MG Tablet PO ×2 (06:41→21:31)
[2024-09-08] MEDS: Levothyroxine 150 MCG Tablet PO (06:41)
[2024-09-08] MEDS: Ondansetron 4 MG/2 ML Vial IV ×2 (06:42→20:36)
[2024-09-08] MEDS: Insulin Lispro 100 UNIT/ML INSULN.PEN SC ×3 (06:42→21:43)
[2024-09-08 07:06] LABS: Bedside Glucose 179 mg/dL (74-106)
[2024-09-08 07:26] LABS: Absolute Neutrophil Count 12.3 X10^3/uL (2.0-7.7); Basophil# 0.05 X10^3/uL; Basophil% 0.3 % (0-1); Eosinophil# 0.27 X10^3/uL; Eosinophils% 1.9 % (0-5); Hematocrit 31.1 % (40-54); Lymphocyte % 6.9 % (19-41); Mean Corp Hgb Conc 32.2 g/dL (32-36); Mean Corpuscular Hgb 30.7 pg (27.0-32.0); Mean Corpuscular Volume 95.4 fL (80-94); Mean Platelet Vol. 11.9 fl (6.2-12.0); Monocyte# 0.86 X10^3/uL; Monocyte% 5.9 % (0-10); NRBC Flagged by Analyzer 0 % (0-5); Neutrophil # 12.25 X10^3/uL (2.7-7.7); Neutrophil % 84.5 % (47-70); Platelet Count 128 K/mm3 (150-450); RBC Distribution Width CV 15.3 % (11.6-14.6); RBC Distribution Width SD 53.4 fl (35.1-43.9); Red Blood Count 3.26 M/mm3 (4.6-6.2); White Blood Count 14.5 K/mm3 (4.4-11.0)
[2024-09-08 08:15] LABS: Erythrocyte Sedimentation Rate 22 mm/hr (0-20)
--- NOTE | 2024-09-08 08:28 | PCM.PN.HOSP ---
Reason for Visit Reason for Visit: Diagnoses Drug-induced hypoglycemia without coma (09/07/24) Urinary tract infection, site not specified (09/07/24) Adverse effect of insulin and oral hypoglycemic [antidiabetic] drugs, initial encounter (09/07/24) Objective Data Objective Data Vital Signs: Vital Signs Temp Pulse Resp BP Pulse Ox O2 Del Method O2 Flow Rate 101.1 F H 82 16 151/86 H 96 Nasal Cannula 2 09/08/24 08:05 09/08/24 08:05 09/08/24 08:05 09/08/24 08:05 09/08/24 08:05 09/08/24 08:05 09/08/24 08:05 Oxygen Flow Rate (L/min) 2 Oxygen Delivery Method Nasal Cannula Weight: 288 lb 12.889 oz Body Mass Index (BMI) 38.2 Intake & Output: Intake and Output for Last 24 Hours 09/06/24 09/07/24 09/08/24 23:59 23:59 23:59 Intake Total 60 / 60 Output Total 400 / 400 Balance -340 / -340 Lab / Micro Data 09/08/24 06:15 09/08/24 06:15 Labs: Laboratory Results - last 24 hr 09/07/24 07:59: Differential Comment COMMENT, Diff Path Review November, ESR 22 H, Sodium 132 L, Potassium 5.9 H, Chloride Direct 92 L, Carbon Dioxide 25.4, Anion Gap 14, BUN 89 H, Creatinine 8.88 H*, Estim Creat Clear Calc 16.32 L, Est GFR (MDRD) Non-Af 7 L, BUN/Creatinine Ratio 10.0, Glucose 153 H, Calcium 8.9 09/07/24 10:16: POC Glucose 172 H 09/07/24 14:54: POC Glucose 173 H 09/07/24 18:27: POC Glucose 136 H 09/07/24 21:41: POC Glucose 180 H 09/08/24 06:15: WBC 14.5 H, RBC 3.26 L, Hgb 10.0 L, Hct 31.1 L, MCV 95.4 H, MCH 30.7, MCHC 32.2, RDW Std Deviation 53.4 H, RDW Coeff of Shanta 15.3 H, Plt Count 128 L, MPV 11.9, Immature Gran % (Auto) 0.500, Neut % (Auto) 84.5 H, Lymph % (Auto) 6.9 L, [place] % (Auto) 5.9, Eos % (Auto) 1.9, Baso % (Auto) 0.3, Absolute Neuts (auto) 12.3 H, Absolute Lymphs (auto) 1.00, Nucleated RBC % 0 09/08/24 06:40: POC Glucose 179 H Micro: Microbiology 09/07/24 15:40 Blood Culture (Wb) - Arm Right Blood Culture - Preliminary 09/07/24 07:55 Mucosa - Nose SARS-CoV-2, Influenza & RSV (PCR) - Final Radiography Diagnostic Testing: Radiology Impression Chest X-Ray 09/07/24 08:05 IMPRESSION: No acute cardiopulmonary process. Reading Location: [facility] Chest/Abdomen/Pelvis CT 09/07/24 10:20 IMPRESSION: Atelectasis at the lung bases. Gallstones. Suprapubic catheter seen within a decompressed urinary bladder with diffuse bladder wall thickening. Decubitus ulcer in the left medial buttock with findings suggestive of chronic osteomyelitis of the left a skin. One or more dose reduction techniques were used (e.g., Automated exposure control, adjustment of the mA and/or kV according to patient size, use of iterative reconstruction technique). Reading Location: [id number] Rhythm Strip Rhythm Strip: Sinus Rhythm Rate: 70 Ectopy: None Physical Exam Narrative Seen and examined. Febrile, temperature 101 Fahrenheit. GNR bacteremia on blood culture. Patient not confused or disoriented. Patient on Prograf for history of kidney transplant which is failed. Getting hemodialysis now. Physical exam General: Alert, Oriented x3, Cooperative HEENT: Atraumatic, PERRLA, EOMI, Normocephalic Oral: No Gingival or Mucosal Lesions/ Ulcerations Neck: Supple, No JVD, Negative Carotid Bruits Chest wall/Lungs: Air entry diminished in bilateral lung bases. Mild expiratory wheezing. Cardiovascular: Regular rate, Regular Rhythm, Normal S1, Normal S2, No M/G/R Abdomen: Bowel Sounds Present, Soft, Non Tender, Non-Distended : On hemodialysis. No dysuria. No renal angle tenderness. Suprapubic catheter. Extremities: No edema, Capillary Refill Less than 3 Seconds Skin: No rashes, No breakdown Musculoskeletal:Left BKA. Stump is fully healed. No Tenderness to Palpation of Joints or Extremities Neurological: Cranial nerves II-XII grossly intact, DTR 2+/4. No acute focal neurological deficit. Psych/Mental Status: Normal Affect, Appropriate. Assessment & Plan Assessment/Plan (1) Complicated urinary tract infection: (2) Hypoglycemic reaction to insulin: PLAN: Plan Patient is a 38-year-old male who presented [facility] ED on 09/07/2024 with fever/chills and altered mentation status and lethargy in dialysis center with hypoglycemia, glucose 42. Patient was given D10 and increased to 180 mg per deciliter. Complicated past history. 1. Concern for multidrug-resistant UTI in setting of chronic urinary retention with suprapubic catheter ? Admit under inpatient status to PCU. Infectious disease consulted. Patient unable to give urine sample in the ED as he does not make much urine in setting of ESRD. CT abdomen pelvis showed diffuse bladder wall thickening and patient with notable leukocytosis that is different from baseline and subjective fever/chills. Patient with multidrug-resistant organisms in prior urine culture; will start patient on meropenem for now, appreciate ID recommendations. 09/08: Patient is febrile, Tmax 101.1 Fahrenheit x 2. Prelim blood culture shows gram-negative polo call from micro lab. Patient on IV meropenem continued. With complex history including on Prograf, immunocompromise state, ID is consulted. Prior history of ESBL and Pseudomonas UTI. Triple PCR for SARS-CoV-2, flu and RSV are negative 2. Hypoglycemic episode in setting of insulin-dependent type 2 diabetes mellitus ? Suspected that hypoglycemic episode was secondary to home insulin dose given with minimal p.o. intake afterward. Improved with treatment at dialysis. Will treat with sliding scale insulin with meals for now, adjust as needed. 3: Hypoglycemia has resolved. Glucose 183. 3. ESRD on HD with mild hyperkalemia ? Nephrology consulted. Potassium 5.9 on admit. EKG with no T wave changes. Will likely need dialysis on 09/08, can temporize potassium as needed prior to that point. 3/4: Patient getting hemodialysis. Chronic medical conditions: ? Class II obesity: BMI 38 on admit. Complicates hospital course, care and prognosis. ? Paraplegia: Per history. Lives in correction. Left BKA. Complicates hospital course, care and prognosis. ? Chronic sacral decubitus ulcer: History of infection secondary to this in April 2024. Does not appear acutely infected on this admission. Wound care nurse consult ? Hypertension: Continue home medications. ? Hypothyroidism: Continue home Synthroid. ? Paroxysmal A-fib: Continue home Eliquis and Coreg. ? Anxiety/depression: Continue home escitalopram. DVT prophylaxis: Not indicated, on Eliquis CODE STATUS: Full code, verified Expected disposition: Back to correction, 2 to 3 days Charges/Coding Visit Charges Inpatient E&M: 63569 Subs Hosp L2
[2024-09-08 08:52] LABS: Anion Gap 19 (5-15); BUN 86 mg/dL (4-19); BUN/Creat Ratio 8.6 RATIO (10-20); Chloride 90 mmol/L (98-108); EST Glomerular Filtration Rate 6 (>60); Estimated Creatinine Clearance 14.49 ml/min (50-250); Glucose 183 mg/dL (70-99); Potassium 6.8 mmol/L (3.3-5.1); Sodium Level 131 mmol/L (133-145)
--- NOTE | 2024-09-08 10:25 | PCM.CONS.GEN ---
Assessment & Plan Assessment/Plan (1) Bacteremia due to Gram-negative bacteria: PLAN: Bcx with GNR, prior h/o esbl and PsA uti. Feeling better, cont ulpe for now. Suspected urinary source. Will follow, thank you, d/w Dr. Saunders (2) ESRD (end stage renal disease) on dialysis: HPI Consult Data Date of Consult: 09/08/24 HPI Narrative Reason for Consultation: bacteremia HPI Narrative: CHINA GUILLEN, is a 38 M with ESRD, failed kidney transplant, presented from dialysis yesterday with acute onset altered mental status, hypoglycemia, not feeling well. Admitted on meropenem, feeling better this AM. No fever, no cough/SOB, no abd pain, no n/v/d. Does not make much urine. Full ROS performed and neg except as noted above. [facility] Medical History Chronic pain Chronic indwelling Hurst catheter Dialysis patient Kidney disease CPAP (continuous positive airway pressure) dependence Sleep apnea Hypertension Blind Encephalopathy Hyponatremia Hypertensive urgency Acute delirium Decubitus ulcer Abscess Left ischial pressure sore Open wound of left buttock with complication Current use of staffing and scheduling coordinator anticoagulation Acute hyperkalemia Acute alteration in mental status Phantom limb syndrome with pain Paraplegia Metabolic encephalopathy ESRD (end stage renal disease) on dialysis Hx of pulmonary embolus Type 2 diabetes mellitus End-stage renal disease on hemodialysis Anticoagulant long-term use History of deep vein thrombosis Anemia in chronic kidney disease, on chronic dialysis Acute postoperative pain alf (current) use of 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 H/O deep venous thrombosis Osteomyelitis of pelvic region Lives in residential Anxiety Open wound Insulin dependent diabetes mellitus Uses wheelchair Injury of back Non-healing wound of amputation stump DM type 2, goal HbA1c < 7% 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 disease 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, stage 4 Neurogenic bowel Chronic kidney disease with end stage renal failure on dialysis Kidney transplant failure Dependence on renal dialysis Pressure ulcer of left heel, unspecified stage Gastro-esophageal reflux disease without esophagitis Other pericardial effusion (noninflammatory) Other pulmonary embolism without acute cor pulmonale Hypertensive heart and chronic kidney disease with heart failure and stage 1 through stage 4 chronic kidney disease, or unspecified chronic kidney disease Depression Hyperlipemia Hypothyroidism Anemia in chronic kidney disease Neuromuscular dysfunction of bladder, unspecified Paraplegia, incomplete Other acute osteomyelitis, left ankle and foot End stage renal disease Home Medications ?Medication ?Instructions ?Recorded ?Last Taken ?Type acetaminophen 325 mg tablet 650 mg PO Q4H PRN PAIN/FEVER 01/02/23 04/21/23 History apixaban 5 mg tablet (Eliquis) 2.5 mg PO BID AFIB pulm edema 01/02/23 07/16/23 History ascorbic acid (vitamin C) 500 mg 500 mg PO QHS SUPPLEMENT 01/02/23 12/08/23 History tablet atorvastatin 40 mg tablet 40 mg PO QHS CHOLESTEROL 01/02/23 12/08/23 History bisacodyl 10 mg rectal suppository 10 mg [place] DAILY PRN CONSTIPATION 01/02/23 Unknown History dextrose 40 % oral gel (Glucose 15 g PO Q15M PRN HYPGLYCEMIA 01/02/23 Unknown History Gel) ondansetron HCl 4 mg tablet 4 mg PO Q8H PRN NAUSEA/VOMITING 01/02/23 Unknown History pantoprazole 40 mg tablet,delayed 40 mg PO DAILY ACID REFLUX 01/02/23 12/08/23 History release sennosides 8.6 mg-docusate sodium 1 tab-cap PO BID CONSTIPATION 01/02/23 07/16/23 History 50 mg capsule (Senna Plus) tacrolimus 1 mg capsule, 2 mg PO Q12H IMMUNOSUPPRESIVE 01/02/23 12/09/23 History immediate-release (Prograf) sevelamer HCl 800 mg tablet 2,400 mg PO TIDCM ESRD 04/21/23 07/16/23 History levothyroxine 150 mcg tablet 150 mcg PO DAILY@0600 THYROID 07/16/23 12/09/23 History acetaminophen 650 mg rectal 650 mg IL Q4H PRN PAIN/FEVER 08/06/23 Unknown History suppository magnesium hydroxide 400 mg/5 mL 30 ml PO DAILY PRN CONSTIPATION 08/06/23 Unknown History oral suspension (Milk of Magnesia) ciclopirox 8 % topical solution 1 applic topical QHS NAIL FUNGUS 11/17/23 Unknown History diphenhydramine-zinc acetate 2 1 applic topical Q6H PRN ITCHING 12/06/23 Unknown History %-0.1 % topical cream (Benadryl Extra Strength) escitalopram oxalate 10 mg tablet 20 mg PO QHS DEPRESSION 12/30/23 Unknown History (Lexapro) insulin lispro 100 unit/mL 1 sliding scale dose subcut TIDCM 03/22/24 Unknown History subcutaneous pen vitamin B complex-vitamin C-folic 1 tab PO QPM HEALTH MAINTENANCE 03/22/24 Unknown History acid 0.8 mg tablet guaifenesin 100 mg/5 mL oral 200 mg PO Q4H PRN COUGH/CONGESTION 03/29/24 Unknown History liquid (Adult Tussin Chest Congestion) aluminum-magnesium hydroxide 200 30 ml PO Q4H PRN GI DISTRESS 04/13/24 Unknown History mg-200 mg/5 mL oral suspension glucagon HCl 1 mg solution for 1 mg IM Q20M PRN HYPOGLYCEMIA 04/13/24 Unknown History injection (Glucagon (HCl) Emergency Kit) hydralazine 50 mg tablet 50 mg PO TID BLOOD PRESSURE 04/13/24 Unknown History melatonin 3 mg tablet 9 mg PO Q24H PRN INSOMNIA 04/13/24 Unknown History polyethylene glycol 3350 17 17 g PO Q24H PRN CONSTIPATION 04/13/24 Unknown History gram/dose oral powder (Miralax) sodium phosphates 19 gram-7 118 ml [place] DAILY PRN constipation 04/22/24 Unknown History gram/118 mL enema (Fleet Enema) tobramycin sulfate 40 mg/mL 100 mg IV Q24H 04/22/24 Unknown History injection solution nystatin 100,000 unit/gram topical 1 applic topical BID #0 grams 04/26/24 Unknown Rx powder ([facility]) carvedilol 25 mg tablet (Coreg) 50 mg PO BID 06/27/24 Unknown History clonidine HCl 0.1 mg tablet 0.25 mg PO Q12H hypertension 06/27/24 Unknown History insulin glargine 100 unit/mL (3 8 unit subcut QPM DM 06/27/24 Unknown History mL) subcutaneous pen (Lantus Solostar U-100 Insulin) insulin lispro 100 unit/mL 5 unit subcut TID DM 06/27/24 Unknown History subcutaneous solution methyl salicylate-menthol topical 1 applic topical BID 06/27/24 Unknown History cream hydroxyzine HCl 25 mg tablet 25 mg PO Q6H PRN itching 07/05/24 Unknown History midodrine 10 mg tablet 10 mg PO DAILY hypotension 07/05/24 Unknown History calcitriol 0.5 mcg capsule 0.5 mcg PO MOWEFR 09/07/24 Unknown History Allergy/AdvReac Type Severity Reaction Status Date / Time No Known Allergies Allergy Verified 09/07/24 07:56 Family History Mother Hypertension Diabetes Father Hypertension Diabetes Surgical History History of kidney transplant S/P unilateral above knee amputation S/P foot surgery S/P colostomy Social History housing: residential Smoking Status: Never smoker alcohol intake: never substance use type: does not use Physical Exam Const alert, oriented x3 and no apparent distress General Appearance: cooperative HEENT normocephalic and head/scalp atraumatic Eyes PERRL and EOMs intact bilaterally Neck supple and No nodes Resp normal air movement and clear to auscultation bilaterally Cardio regular rate and regular rhythm GI soft to palpation, non-tender and non-distended Extremity General Extremity: edema Skin no rashes or lesions noted Neuro CN's II-XII intact bilaterally Lab / Micro Data Attestation: I reviewed the patient's lab results. 09/08/24 06:15 09/08/24 06:15 Labs: Laboratory Results - last 24 hr 09/07/24 07:59: ESR 22 H 09/07/24 10:16: POC Glucose 172 H 09/07/24 14:54: POC Glucose 173 H 09/07/24 18:27: POC Glucose 136 H 09/07/24 21:41: POC Glucose 180 H 09/08/24 06:15: WBC 14.5 H, RBC 3.26 L, Hgb 10.0 L, Hct 31.1 L, MCV 95.4 H, MCH 30.7, MCHC 32.2, RDW Std Deviation 53.4 H, RDW Coeff of Shanta 15.3 H, Plt Count 128 L, MPV 11.9, Immature Gran % (Auto) 0.500, Neut % (Auto) 84.5 H, Lymph % (Auto) 6.9 L, [place] % (Auto) 5.9, Eos % (Auto) 1.9, Baso % (Auto) 0.3, Absolute Neuts (auto) 12.3 H, Absolute Lymphs (auto) 1.00, Nucleated RBC % 0, Sodium 131 L, Potassium 6.8 H*, Chloride 90 L, Carbon Dioxide 22.0, Anion Gap 19 H, BUN 86 H, Creatinine 10.00 H*, Estim Creat Clear Calc 14.49 L, Est GFR (MDRD) Non-Af 6 L, BUN/Creatinine Ratio 8.6 L, Glucose 183 H, Calcium 9.0 09/08/24 06:40: POC Glucose 179 H Micro: Microbiology 09/07/24 15:40 Blood Culture (Wb) - Arm Right Blood Culture - Preliminary 09/07/24 07:55 Mucosa - Nose SARS-CoV-2, Influenza & RSV (PCR) - Final Rhythm Strip Rhythm Strip: Sinus Rhythm Rate: 70 Ectopy: None Imaging Radiology Impression Chest/Abdomen/Pelvis CT 09/07/24 10:20 IMPRESSION: Atelectasis at the lung bases. Gallstones. Suprapubic catheter seen within a decompressed urinary bladder with diffuse bladder wall thickening. Decubitus ulcer in the left medial buttock with findings suggestive of chronic osteomyelitis of the left a skin. One or more dose reduction techniques were used (e.g., Automated exposure control, adjustment of the mA and/or kV according to patient size, use of iterative reconstruction technique). Reading Location: [facility]
--- NOTE | 2024-09-08 10:53 | WOUNDNOTE ---
Pt is currently getting dialysis so unable to assess left ischial wound.
--- NOTE | 2024-09-08 11:28 | CASEMGMT ---
Discharge Planning Updates sent to [facility]. Selina Sylvester DC Planning Asst.
[2024-09-08] MEDS: Acetaminophen 325 MG Tablet 650 MG PO ×2 (11:34→18:13)
--- NOTE | 2024-09-08 12:42 | CON.PCM.RE_ITS ---
Assessment & Plan Assessment/Plan (1) Acute hyperkalemia: (2) ESRD (end stage renal disease) on dialysis: PLAN: On hemodialysis Saturday, Saturday, Saturday schedule. Did not receive dialysis yesterday for treatment. Seen on dialysis today. We will plan for 4 and half hours today in view of significant hyperkalemia. Hyperkalemia. Use 2K bath, 4 and half hours. Likely repeat dialysis tomorrow. Bacteremia. ID consult HPI Consult Data Date of Consult: 09/08/24 HPI Narrative Reason for Consultation: ESRD HPI Narrative: CHINA GUILLEN, is a 38 M who presents To the hospital with hypoglycemia. Nephrology on consultation in view of ESRD. On hemodialysis Saturday, Saturday, Saturday. He goes to [facility] here in town. 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 Wallace. Apparently he went to dialysis yesterday, was found to be hypoglycemic hence sent in. Currently has bacteremia, ID on consult. He has known history of paraplegia, chronic decubitus ulcer, has a diverting suprapubic catheter. [facility] Medical History Chronic pain Chronic indwelling Hurst catheter Dialysis patient Kidney disease CPAP (continuous positive airway pressure) dependence Sleep apnea Hypertension Blind Encephalopathy Hyponatremia Hypertensive urgency Acute delirium Decubitus ulcer Abscess Left ischial pressure sore Open wound of left buttock with complication Current use of correction anticoagulation Acute hyperkalemia Acute alteration in mental status Phantom limb syndrome with pain Paraplegia Metabolic encephalopathy ESRD (end stage renal disease) on dialysis Hx of pulmonary embolus Type 2 diabetes mellitus End-stage renal disease on hemodialysis Anticoagulant long-term use History of deep vein thrombosis Anemia in chronic kidney disease, on chronic dialysis Acute postoperative pain senior living (current) use of 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 H/O deep venous thrombosis Osteomyelitis of pelvic region Lives in retirement Anxiety Open wound Insulin dependent diabetes mellitus Uses wheelchair Injury of back Non-healing wound of amputation stump DM type 2, goal HbA1c < 7% 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 disease 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, stage 4 Neurogenic bowel Chronic kidney disease with end stage renal failure on dialysis Kidney transplant failure Dependence on renal dialysis Pressure ulcer of left heel, unspecified stage Gastro-esophageal reflux disease without esophagitis Other pericardial effusion (noninflammatory) Other pulmonary embolism without acute cor pulmonale Hypertensive heart and chronic kidney disease with heart failure and stage 1 through stage 4 chronic kidney disease, or unspecified chronic kidney disease Depression Hyperlipemia Hypothyroidism Anemia in chronic kidney disease Neuromuscular dysfunction of bladder, unspecified Paraplegia, incomplete Other acute osteomyelitis, left ankle and foot End stage renal disease Home Medications ?Medication ?Instructions ?Recorded ?Last Taken ?Type acetaminophen 325 mg tablet 650 mg PO Q4H PRN PAIN/FEV ER 01/02/23 04/21/23 History apixaban 5 mg tablet (Eliquis) 2.5 mg PO BID AFIB pulm edema 01/02/23 07/16/23 History ascorbic acid (vitamin C) 500 mg 500 mg PO QHS SUPPLEM ENT 01/02/23 12/08/23 History tablet atorvastatin 40 mg tablet 40 mg PO QHS CHOLESTEROL 12/08/23 History bisacodyl 10 mg rectal suppository 10 mg [place] DAILY PRN CONSTIPATION 01/02/23 Unknown History dextrose 40 % oral gel (Glucose 15 g PO Q15M PRN HYPGL YCEMIA 01/02/23 Unknown History Gel) ondansetron HCl 4 mg tablet 4 mg PO Q8H PRN NAUSEA/VOM ITING 01/02/23 Unknown History pantoprazole 40 mg tablet,delayed 40 mg PO DAILY ACID REFLUX 01/02/23 12/08/23 History release sennosides 8.6 mg-docusate sodium 1 tab-cap PO BID CON STIPATION 01/02/23 07/16/23 History 50 mg capsule (Senna Plus) tacrolimus 1 mg capsule, 2 mg PO Q12H IMMUNOSUPPRESIV E 01/02/23 12/09/23 History immediate-release (Prograf) sevelamer HCl 800 mg tablet 2,400 mg PO TIDCM ESRD 07/16/23 History levothyroxine 150 mcg tablet 150 mcg PO DAILY@0600 THY ROID 07/16/23 12/09/23 History acetaminophen 650 mg rectal 650 mg NJ Q4H PRN PAIN/FEV ER 08/06/23 Unknown History suppository magnesium hydroxide 400 mg/5 mL 30 ml PO DAILY PRN CON STIPATION 08/06/23 Unknown History oral suspension (Milk of Magnesia) ciclopirox 8 % topical solution 1 applic topical QHS N AIL FUNGUS 11/17/23 Unknown History diphenhydramine-zinc acetate 2 1 applic topical Q6H NJ N ITCHING 12/06/23 Unknown History %-0.1 % topical cream (Benadryl Extra Strength) escitalopram oxalate 10 mg tablet 20 mg PO QHS DEPRESS ION 12/30/23 Unknown History (Lexapro) insulin lispro 100 unit/mL 1 sliding scale dose subcut TIDCM 03/22/24 Unknown History subcutaneous pen vitamin B complex-vitamin C-folic 1 tab PO QPM HEALTH MAINTENANCE 03/22/24 Unknown History acid 0.8 mg tablet guaifenesin 100 mg/5 mL oral 200 mg PO Q4H PRN COUGH/C ONGESTION 03/29/24 Unknown History liquid (Adult Tussin Chest Congestion) aluminum-magnesium hydroxide 200 30 ml PO Q4H PRN GI D ISTRESS 04/13/24 Unknown History mg-200 mg/5 mL oral suspension glucagon HCl 1 mg solution for 1 mg IM Q20M PRN HYPOGL YCEMIA 04/13/24 Unknown History injection (Glucagon (HCl) Emergency Kit) hydralazine 50 mg tablet 50 mg PO TID BLOOD PRESSURE 04/13/24 Unknown History melatonin 3 mg tablet 9 mg PO Q24H PRN INSOMNIA Unknown History polyethylene glycol 3350 17 17 g PO Q24H PRN CONSTIPAT ION 04/13/24 Unknown History gram/dose oral powder (Miralax) sodium phosphates 19 gram-7 118 ml [place] DAILY PRN consti pation 04/22/24 Unknown History gram/118 mL enema (Fleet Enema) tobramycin sulfate 40 mg/mL 100 mg IV Q24H 04/22/24 Un known History injection solution nystatin 100,000 unit/gram topical 1 applic topical BI D #0 grams 04/26/24 Unknown Rx powder ([facility]) carvedilol 25 mg tablet (Coreg) 50 mg PO BID 06/27/24 Unknown History clonidine HCl 0.1 mg tablet 0.25 mg PO Q12H hypertensi on 06/27/24 Unknown History insulin glargine 100 unit/mL (3 8 unit subcut QPM DM 1 08/28/23 Unknown History mL) subcutaneous pen (Lantus Solostar U-100 Insulin) insulin lispro 100 unit/mL 5 unit subcut TID DM Unknown History subcutaneous solution methyl salicylate-menthol topical 1 applic topical BID 06/27/24 Unknown History cream hydroxyzine HCl 25 mg tablet 25 mg PO Q6H PRN itching 07/05/24 Unknown History midodrine 10 mg tablet 10 mg PO DAILY hypotension 1 09/05/23 Unknown History calcitriol 0.5 mcg capsule 0.5 mcg PO MOWEFR 09/07/24 Unknown History Allergy/AdvReac Type Severity Reaction Status Date / Time No Known Allergies Allergy Verified 09/07/24 07:56 Family History Mother Hypertension Diabetes Father Hypertension Diabetes Surgical History History of kidney transplant S/P unilateral above knee amputation S/P foot surgery S/P colostomy Social History housing: retirement Smoking Status: Never smoker alcohol intake: never substance use type: does not use ROS ROS Narrative negative except above Physical Exam Narrative Alert awake no obvious distress no edema Lab / Micro Data 09/08/24 06:15 09/08/24 06:15 Labs: Laboratory Results - last 24 hr 09/07/24 07:59: ESR 22 H 09/07/24 14:54: POC Glucose 173 H 09/07/24 18:27: POC Glucose 136 H 09/07/24 21:41: POC Glucose 180 H 09/08/24 06:15: WBC 14.5 H, RBC 3.26 L, Hgb 10.0 L, Hct 31.1 L, MCV 95.4 H, MCH 30.7, MCHC 32.2, RDW Std Deviation 53.4 H, RDW Coeff of Shanta 15.3 H, Plt Count 128 L, MPV 11.9, Immature Gran % (Auto) 0.500, Neut % (Auto) 84.5 H, Lymph % (Auto) 6.9 L, [place] % (Auto) 5.9, Eos % (Auto) 1.9, Baso % (Auto) 0.3, Absolute Neuts (auto) 12.3 H, Absolute Lymphs (auto) 1.00, Nucleated RBC % 0, Sodium 131 L, Potassium 6.8 H*, Chloride 90 L, Carbon Dioxide 22.0, Anion Gap 19 H, BUN 86 H, Creatinine 10.00 H*, Estim Creat Clear Calc 14.49 L, Est GFR (MDRD) Non-Af 6 L, BUN/Creatinine Ratio 8.6 L, Glucose 183 H, Calcium 9.0, C-React Prot Ext Range 139.00 H 09/08/24 06:40: POC Glucose 179 H Micro: Microbiology 09/07/24 15:40 Blood Culture (Wb) - Arm Right Blood Culture - Preliminary 09/07/24 07:55 Mucosa - Nose SARS-CoV-2, Influenza & RSV (PCR) - Final Rhythm Strip Rhythm Strip: Sinus Rhythm Rate: 70 Ectopy: None Imaging Radiology Impression Chest/Abdomen/Pelvis CT 09/07/24 10:20 IMPRESSION: Atelectasis at the lung bases. Gallstones. Suprapubic catheter seen within a decompressed urinary bladder with diffuse bladder wall thickening. Decubitus ulcer in the left medial buttock with findings suggestive of chronic osteomyelitis of the left a skin. One or more dose reduction techniques were used (e.g., Automated exposure control, adjustment of the mA and/or kV according to patient size, use of iterative reconstruction technique). Reading Location: [facility]
[2024-09-08 13:35] LABS: Bedside Glucose 127 mg/dL (74-106)
[2024-09-08] MEDS: Pantoprazole Sodium 40 MG Tablet PO (13:40)
[2024-09-08] MEDS: APIXABAN 2.5 MG TABLET (WCH) PO ×2 (13:40→21:42)
[2024-09-08] MEDS: SEVELAMER CARBONATE 800 MG TABLET 2400 MG PO ×2 (13:40→16:53)
[2024-09-08] MEDS: Tacrolimus Anhydrous 1 MG Capsule 2 MG PO ×2 (13:43→21:42)
[2024-09-08] MEDS: Calcitriol 0.25 MCG Capsule 0.5 MCG PO (13:43)
--- NOTE | 2024-09-08 15:13 | NUR.TO.PHY ---
skin photo: left ischium
--- NOTE | 2024-09-08 15:14 | WOUNDNOTE ---
Was asked to see patient for left ischial wound. patient rolled to right side. wound to the left ischium has healed. there is some puckered scar tissue noted but no open areas noted. pt is known to this nurse from previous admissions. there is a calloused area to the right plantar foot as well. no sign of infection noted. will monitor. see skin photo.
--- NOTE | 2024-09-08 15:19 | WOUNDNOTE ---
skin photo: left ischium
--- NOTE | 2024-09-08 15:32 | CASEMGMT ---
SW went to patient's room to confirm his plan [facility]. Patient was sleeping. LIZZIE will check back. Naina HERRERA
[2024-09-08] MEDS: Meropenem 1 GM in 0.9% Normal Saline (100mL MB+) 100 ML IV (16:53)
[2024-09-08 17:23] LABS: Bedside Glucose 194 mg/dL (74-106)
[2024-09-08] MEDS: cloNIDine HCl 0.1 MG Tablet 0.25 MG PO (21:31)
[2024-09-08] MEDS: Carvedilol 25 MG Tablet PO (21:32)
[2024-09-08] MEDS: Ascorbic Acid 500 MG Tablet PO (21:41)
[2024-09-08] MEDS: Escitalopram Oxalate 20 MG Tablet PO (21:41)
[2024-09-08] MEDS: Atorvastatin Calcium 40 MG Tablet PO (21:42)
[2024-09-08] MEDS: Folic Acid/Vitamin B Comp W-C 1 Capsule 1 CAP PO (21:48)
[2024-09-08 22:07] LABS: Bedside Glucose 179 mg/dL (74-106)
[2024-09-09] VITALS (18 sets, daily range): BP systolic 112–254; BP diastolic 57–115; PULSE 70–77; RESP 14–20; TEMP 36.3–36.9; O2SAT 94–100; BMI 37.4; BMI 36.3
[2024-09-09 05:21] LABS: Absolute Lymphocyte Count 1.03 X10^3/uL (0.83-4.51); Absolute Neutrophil Count 4.9 X10^3/uL (2.0-7.7); Basophil# 0.05 X10^3/uL; Basophil% 0.7 % (0-1); Eosinophils% 2.8 % (0-5); Hematocrit 30.4 % (40-54); Hemoglobin 9.7 g/dL (13.0-16.5); Lymphocyte # 1.03 X10^3/ul (0.83-4.51); Lymphocyte % 14.6 % (19-41); Mean Corp Hgb Conc 31.9 g/dL (32-36); Mean Corpuscular Hgb 30.8 pg (27.0-32.0); Mean Corpuscular Volume 96.5 fL (80-94); Monocyte# 0.88 X10^3/uL; Monocyte% 12.5 % (0-10); NRBC Flagged by Analyzer 0 % (0-5); Neutrophil # 4.85 X10^3/uL (2.7-7.7); Platelet Count 120 K/mm3 (150-450); RBC Distribution Width CV 15.3 % (11.6-14.6); RBC Distribution Width SD 54.3 fl (35.1-43.9); Red Blood Count 3.15 M/mm3 (4.6-6.2)
[2024-09-09 06:04] LABS: Anion Gap 15 (5-15); BUN 65 mg/dL (4-19); BUN/Creat Ratio 7.6 RATIO (10-20); Carbon Dioxide 23.4 mmol/L (21.0-32.0); Chloride 93 mmol/L (98-108); Creatinine, Serum 8.51 mg/dL (0.70-1.20); EST Glomerular Filtration Rate 8 (>60); Estimated Creatinine Clearance 16.83 ml/min (50-250); Glucose 145 mg/dL (70-99); Potassium 5.6 mmol/L (3.3-5.1); Sodium Level 132 mmol/L (133-145)
[2024-09-09] MEDS: hydrALAZINE 50 MG Tablet PO ×3 (06:12→21:49)
[2024-09-09] MEDS: Levothyroxine 150 MCG Tablet PO (06:12)
[2024-09-09 06:56] LABS: Bedside Glucose 133 mg/dL (74-106)
[2024-09-09] MEDS: PureFlow B 2K Dialysis Soln 1 BAG 6 BAG PF (08:09)
[2024-09-09] MEDS: 0.9% Normal Saline 1,000 ML IV.SOLN. 1000 ML OPERA.SITE (08:09)
--- NOTE | 2024-09-09 08:35 | WOUNDNOTE ---
Pt currently getting dialysis.
--- NOTE | 2024-09-09 11:46 | PN.RENAL_ITS ---
Subjective Subjective No new events Objective Data Objective Data Vital Signs: Vital Signs Temp Pulse Resp BP Pulse Ox O2 Del Method O2 Flow Rate 98.1 F 74 14 200/100 H 100 Nasal Cannula 3 09/09/24 11:43 09/09/24 11:43 09/09/24 11:43 09/09/24 11:43 09/09/24 11:43 09/09/24 11:43 09/09/24 11:43 Oxygen Flow Rate (L/min) 3 Oxygen Delivery Method Nasal Cannula Weight: 124.5 kg Body Mass Index (BMI) 36.3 Intake & Output: Intake and Output for Last 24 Hours 09/07/24 09/08/24 09/09/24 23:59 23:59 23:59 Intake Total 160 / 160 Output Total 5980 / 5980 3500 / 3500 Balance -5820 / -5820 -3500 / -3500 Lab / Micro Data 09/09/24 05:01 09/09/24 05:01 Labs: Laboratory Results - last 24 hr 09/08/24 13:16: POC Glucose 127 H 09/08/24 16:51: POC Glucose 194 H 09/08/24 21:40: POC Glucose 179 H 09/09/24 05:01: WBC 7.0, RBC 3.15 L, Hgb 9.7 L, Hct 30.4 L, MCV 96.5 H, MCH 30.8, MCHC 31.9 L, RDW Std Deviation 54.3 H, RDW Coeff of Shanta 15.3 H, Plt Count 120 L, MPV 11.0, Immature Gran % (Auto) 0.400, Neut % (Auto) 69.0, Lymph % (Auto) 14.6 L, [place] % (Auto) 12.5 H, Eos % (Auto) 2.8, Baso % (Auto) 0.7, Absolute Neuts (auto) 4.9, Absolute Lymphs (auto) 1.03, Nucleated RBC % 0, S odium 132 L, Potassium 5.6 H, Chloride 93 L, Carbon Dioxide 23.4, Anion Gap 15, BUN 65 H, Creatinine 8.51 H*, Estim Creat Clear Calc 16.83 L, Est GFR (MDRD) Non-Af 8 L, BUN/Creatinine Ratio 7.6 L, Glucose 145 H, Calcium 9.0 09/09/24 06:35: POC Glucose 133 H Micro: Microbiology 09/07/24 15:40 Blood Culture (Wb) - Arm Right Blood Culture - Preliminary GNR lactose teacher instrumental 09/07/24 07:55 Mucosa - Nose SARS-CoV-2, Influenza & RSV (PCR) - Final Rhythm Strip Rhythm Strip: Sinus Rhythm Rate: 70 Ectopy: None Physical Exam Narrative Alert awake no obvious distress no edema Assessment & Plan Assessment/Plan (1) Acute hyperkalemia: (2) ESRD (end stage renal disease) on dialysis: PLAN: On hemodialysis Saturday, Saturday, Saturday schedule. Seen on dialysis today. We will plan for 4 and half hours today in view of significant hyperkalemia. Hyperkalemia. Use 2K bath, 4 and half hours. Bacteremia. ID consult
[2024-09-09] MEDS: SEVELAMER CARBONATE 800 MG TABLET 2400 MG PO ×2 (12:03→16:31)
[2024-09-09] MEDS: cloNIDine HCl 0.1 MG Tablet 0.25 MG PO ×2 (12:03→21:50)
[2024-09-09] MEDS: Senna/Docusate Sodium 1 Tablet PO ×2 (12:04→21:50)
[2024-09-09] MEDS: Carvedilol 25 MG Tablet PO ×2 (12:04→21:49)
[2024-09-09] MEDS: Calcitriol 0.25 MCG Capsule 0.5 MCG PO (12:04)
[2024-09-09] MEDS: Pantoprazole Sodium 40 MG Tablet PO (12:04)
[2024-09-09] MEDS: APIXABAN 2.5 MG TABLET (WCH) PO ×2 (12:05→21:49)
[2024-09-09] MEDS: Tacrolimus Anhydrous 1 MG Capsule 2 MG PO ×2 (12:07→21:49)
[2024-09-09 12:27] LABS: Bedside Glucose 125 mg/dL (74-106)
--- NOTE | 2024-09-09 12:56 | CASEMGMT ---
SW met with patient. Introduced self and role at [facility]. Patient confirmed his plan is to return to [facility] at d/c. Naina HERRERA
[2024-09-09] MEDS: Meropenem 1 GM in 0.9% Normal Saline (100mL MB+) 100 ML IV (15:12)
[2024-09-09] MEDS: Insulin Lispro 100 UNIT/ML INSULN.PEN SC ×2 (16:30→21:50)
--- NOTE | 2024-09-09 16:54 | PCM.PN.HOSP ---
Reason for Visit Reason for Visit: Diagnoses Drug-induced hypoglycemia without coma (09/07/24) Hyperkalemia (09/07/24) End stage renal disease (09/07/24) Urinary tract infection, site not specified (09/07/24) Bacteremia (09/07/24) Adverse effect of insulin and oral hypoglycemic [antidiabetic] drugs, initial encounter (09/07/24) Dependence on renal dialysis (09/07/24) Objective Data Objective Data Vital Signs: Vital Signs Temp Pulse Resp BP Pulse Ox O2 Del Method O2 Flow Rate 98.0 F 76 18 162/89 H 94 Nasal Cannula 3 09/09/24 14:20 09/09/24 14:24 09/09/24 14:20 09/09/24 14:24 09/09/24 14:20 09/09/24 14:20 09/09/24 14:20 Oxygen Flow Rate (L/min) 3 Oxygen Delivery Method Nasal Cannula Weight: 274 lb 7.608 oz Body Mass Index (BMI) 36.3 Intake & Output: Intake and Output for Last 24 Hours 09/07/24 09/08/24 09/09/24 23:59 23:59 23:59 Intake Total 160 / 160 360 / 360 Output Total 5980 / 5980 3500 / 3500 Balance -5820 / -5820 -3140 / -3140 Lab / Micro Data 09/09/24 05:01 09/09/24 05:01 Labs: Laboratory Results - last 24 hr 09/08/24 16:51: POC Glucose 194 H 09/08/24 21:40: POC Glucose 179 H 09/09/24 05:01: WBC 7.0, RBC 3.15 L, Hgb 9.7 L, Hct 30.4 L, MCV 96.5 H, MCH 30.8, MCHC 31.9 L, RDW Std Deviation 54.3 H, RDW Coeff of Shanta 15.3 H, Plt Count 120 L, MPV 11.0, Immature Gran % (Auto) 0.400, Neut % (Auto) 69.0, Lymph % (Auto) 14.6 L, [place] % (Auto) 12.5 H, Eos % (Auto) 2.8, Baso % (Auto) 0.7, Absolute Neuts (auto) 4.9, Absolute Lymphs (auto) 1.03, Nucleated RBC % 0, Sodium 132 L, Potassium 5.6 H, Chloride 93 L, Carbon Dioxide 23.4, Anion Gap 15, BUN 65 H, Creatinine 8.51 H*, Estim Creat Clear Calc 16.83 L, Est GFR (MDRD) Non-Af 8 L, BUN/Creatinine Ratio 7.6 L, Glucose 145 H, Calcium 9.0 09/09/24 06:35: POC Glucose 133 H 09/09/24 11:56: POC Glucose 125 H Micro: Microbiology 09/07/24 17:13 Blood Culture (Wb) - Arm Right Blood Culture - Preliminary 09/07/24 15:40 Blood Culture (Wb) - Arm Right Blood 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 Afebrile since yesterday evening. Patient was febrile, temperature 101 Fahrenheit. GNR bacteremia on blood culture. Patient on Prograf for history of kidney transplant which is failed. Getting hemodialysis today Physical exam General: Alert, Oriented x3, Cooperative HEENT: Atraumatic, PERRLA, EOMI, Normocephalic Oral: No Gingival or Mucosal Lesions/ Ulcerations Neck: Supple, No JVD, Negative Carotid Bruits Chest wall/Lungs: Air entry diminished in bilateral lung bases. Lungs bilateral clear Cardiovascular: Regular rate, Regular Rhythm, Normal S1, Normal S2, No M/G/R Abdomen: Bowel Sounds Present, Soft, Non Tender, Non-Distended : On hemodialysis. No dysuria. No renal angle tenderness. Suprapubic catheter. Extremities: No edema, Capillary Refill Less than 3 Seconds Skin: No rashes, No breakdown Musculoskeletal:Left BKA. Stump is fully healed. No Tenderness to Palpation of Joints or Extremities Neurological: Cranial nerves II-XII grossly intact, DTR 2+/4. No acute focal neurological deficit. Psych/Mental Status: Normal Affect, Appropriate. Assessment & Plan Assessment/Plan (1) Complicated urinary tract infection: (2) Hypoglycemic reaction to insulin: PLAN: Plan Patient is a 38-year-old male who presented [facility] ED on 09/07/2024 with fever/chills and altered mentation status and lethargy in dialysis center with hypoglycemia, glucose 42. Patient was given D10 and increased to 180 mg per deciliter. Complicated past history. 1. Concern for multidrug-resistant UTI in setting of chronic urinary retention with suprapubic catheter ? Admit under inpatient status to PCU. Infectious disease consulted. Patient unable to give urine sample in the ED as he does not make much urine in setting of ESRD. CT abdomen pelvis showed diffuse bladder wall thickening and patient with notable leukocytosis that is different from baseline and subjective fever/chills. Patient with multidrug-resistant organisms in prior urine culture; will start patient on meropenem for now, appreciate ID recommendations. 3/4: Patient is febrile, Tmax 101.1 Fahrenheit x 2. Prelim blood culture shows gram-negative polo call from micro lab. Patient on IV meropenem continued. With complex history including on Prograf, immunocompromise state, ID is consulted. Prior history of ESBL and Pseudomonas UTI. Triple PCR for SARS-CoV-2, flu and RSV are negative 35: Patient afebrile since yesterday evening. On IV meropenem continued. Both bottles of Blood culture growing GNR. Patient on appropriate antibiotic. 2. Hypoglycemic episode in setting of insulin-dependent type 2 diabetes mellitus ? Suspected that hypoglycemic episode was secondary to home insulin dose given with minimal p.o. intake afterward. Improved with treatment at dialysis. Will treat with sliding scale insulin with meals for now, adjust as needed. 3/4: Hypoglycemia has resolved. Glucose 183. 3. ESRD on HD with mild hyperkalemia ? Nephrology consulted. Potassium 5.9 on admit. EKG with no T wave changes. Will likely need dialysis on 09/08, can temporize potassium as needed prior to that point. 3/4: Patient getting hemodialysis. Chronic medical conditions: ? Class II obesity: BMI 38 on admit. Complicates hospital course, care and prognosis. ? Paraplegia: Per history. Lives in [facility]. Left BKA. Complicates hospital course, care and prognosis. ? Chronic sacral decubitus ulcer: History of infection secondary to this in April 2024. Does not appear acutely infected on this admission. Wound care nurse consult ? Hypertension: Continue home medications. ? Hypothyroidism: Continue home Synthroid. ? Paroxysmal A-fib: Continue home Eliquis and Coreg. ? Anxiety/depression: Continue home escitalopram. DVT prophylaxis: Not indicated, on Eliquis CODE STATUS: Full code, verified Expected disposition: Back to [facility], 2 to 3 days Charges/Coding Visit Charges Inpatient E&M: 01427 Subs Hosp L2
[2024-09-09 17:07] LABS: Bedside Glucose 249 mg/dL (74-106)
[2024-09-09] MEDS: Acetaminophen 325 MG Tablet 650 MG PO (18:46)
[2024-09-09] MEDS: Atorvastatin Calcium 40 MG Tablet PO (21:49)
[2024-09-09] MEDS: Escitalopram Oxalate 20 MG Tablet PO (21:49)
[2024-09-09] MEDS: Ascorbic Acid 500 MG Tablet PO (21:49)
[2024-09-09] MEDS: Folic Acid/Vitamin B Comp W-C 1 Capsule 1 CAP PO (21:49)
[2024-09-09 21:54] LABS: Bedside Glucose 225 mg/dL (74-106)
[2024-09-09] MEDS: 0.9% Saline Lock 10 ML Syringe IV (23:41)
[2024-09-09] MEDS: Ondansetron 4 MG/2 ML Vial IV (23:41)
[2024-09-10] VITALS (8 sets, daily range): BP systolic 152–179; BP diastolic 95–105; PULSE 64–65; RESP 16–18; TEMP 36.3–37.2; O2SAT 98–99
[2024-09-10 05:26] LABS: Absolute Lymphocyte Count 1.15 X10^3/uL (0.83-4.51); Basophil# 0.06 X10^3/uL; Basophil% 1.3 % (0-1); Eosinophil# 0.51 X10^3/uL; Eosinophils% 10.9 % (0-5); Hematocrit 31.8 % (40-54); Hemoglobin 10.2 g/dL (13.0-16.5); Lymphocyte # 1.15 X10^3/ul (0.83-4.51); Lymphocyte % 24.5 % (19-41); Mean Corp Hgb Conc 32.1 g/dL (32-36); Mean Corpuscular Hgb 30.9 pg (27.0-32.0); Mean Corpuscular Volume 96.4 fL (80-94); Mean Platelet Vol. 11.4 fl (6.2-12.0); Monocyte# 0.98 X10^3/uL; Monocyte% 20.9 % (0-10); NRBC Flagged by Analyzer 0 % (0-5); Neutrophil # 1.97 X10^3/uL (2.7-7.7); Platelet Count 123 K/mm3 (150-450); RBC Distribution Width CV 14.5 % (11.6-14.6); RBC Distribution Width SD 50.6 fl (35.1-43.9); White Blood Count 4.7 K/mm3 (4.4-11.0)
[2024-09-10 06:31] LABS: Anion Gap 18 (5-15); BUN 51 mg/dL (4-19); BUN/Creat Ratio 6.6 RATIO (10-20); Calcium,Total 9.1 mg/dL (7.6-11.0); Carbon Dioxide 20.8 mmol/L (21.0-32.0); Chloride 95 mmol/L (98-108); Creatinine, Serum 7.75 mg/dL (0.70-1.20); EST Glomerular Filtration Rate 9 (>60); Estimated Creatinine Clearance 18.22 ml/min (50-250); Glucose 171 mg/dL (70-99); Sodium Level 134 mmol/L (133-145)
[2024-09-10] MEDS: Insulin Lispro 100 UNIT/ML INSULN.PEN SC ×2 (06:31→12:25)
[2024-09-10] MEDS: hydrALAZINE 50 MG Tablet PO ×2 (06:31→14:31)
[2024-09-10] MEDS: Levothyroxine 150 MCG Tablet PO (06:31)
[2024-09-10 06:53] LABS: Bedside Glucose 164 mg/dL (74-106)
[2024-09-10] MEDS: Acetaminophen 325 MG Tablet 650 MG PO (09:34)
[2024-09-10] MEDS: Pantoprazole Sodium 40 MG Tablet PO (09:35)
[2024-09-10] MEDS: SEVELAMER CARBONATE 800 MG TABLET 2400 MG PO ×2 (09:35→12:25)
[2024-09-10] MEDS: APIXABAN 2.5 MG TABLET (WCH) PO (09:35)
[2024-09-10] MEDS: cloNIDine HCl 0.1 MG Tablet 0.25 MG PO (09:35)
[2024-09-10] MEDS: Ondansetron 4 MG/2 ML Vial IV (09:35)
[2024-09-10] MEDS: Carvedilol 25 MG Tablet PO (09:36)
[2024-09-10] MEDS: Senna/Docusate Sodium 1 Tablet PO (09:36)
[2024-09-10] MEDS: Tacrolimus Anhydrous 1 MG Capsule 2 MG PO (09:36)
[2024-09-10] MEDS: 0.9% Saline Lock 10 ML Syringe IV (09:40)
--- NOTE | 2024-09-10 10:48 | PCM.PN.ID ---
Physical Exam Narrative Feeling better, no abd pain, no fever Const alert and no apparent distress General Appearance: cooperative Resp normal air movement and clear to auscultation bilaterally Cardio regular rate and regular rhythm GI soft to palpation, non-tender and non-distended Skin no rashes or lesions noted ID ID: Route of nutrition/ use of supplements: [] Nutritional Intake: [] IV Site: [] Hurst Catheter: [] Assessment & Plan Assessment/Plan (1) Bacteremia due to Gram-negative bacteria: PLAN: Bcx with esbl ecoli, prior h/o esbl and PsA uti. Feeling better. Suspected urinary source. Will change to ertapenem, plan on home with 3 more doses IV erta dosed with HD MWF. Will follow prn, d/w supportive employment case manager, wrote rx (2) ESRD (end stage renal disease) on dialysis:
--- NOTE | 2024-09-10 11:12 | TREXTCAR_ITS ---
Diet Diet Order/Speech Therapy: 09/07/24 17:54 Diet: Consistent Carb - Calorie Controlled Food consistency:: Regular Liquid Consistency:: Regular/Thin How many daily calories?: 2000 calorie Routine Orders/Code Status Suppository Type: Dulcolax 10mg Suppository Frequency: Daily PRN DC O2, CPAP, BIPAP needs Home O2 Discharge instructions: Yes Type of respiratory needs?: Oxygen Oxygen frequency: Continuous Continuous oxygen liters per minute: 3 Wound(s) Buttocks: Wound Type: Pressure Injury Therapies Extremity Affected:: Bilateral Lower Physical Therapy: Eval and Treat Occupational Therapy: Eval and Treat Speech Therapy: Eval and Treat Problem/Diagnosis (1) Bacteremia due to Gram-negative bacteria: Status: Acute Code(s): R78.81 - Bacteremia (2) ESRD (end stage renal disease) on dialysis: Status: Acute Code(s): N18.6 - End stage renal disease; Z99.2 - Dependence on renal dialysis Plan Patient is a 38-year-old male who presented [facility] ED on 09/07/2024 with fever/chills and altered mentation status and lethargy in dialysis center with hypoglycemia, glucose 42. Patient was given D10 and increased to 180 mg per deciliter. Complicated past history. 1. Concern for multidrug-resistant UTI in setting of chronic urinary retention with suprapubic catheter ? Admit under inpatient status to PCU. Infectious disease consulted. Patient unable to give urine sample in the ED as he does not make much urine in setting of ESRD. CT abdomen pelvis showed diffuse bladder wall thickening and patient with notable leukocytosis that is different from baseline and subjective fever/chills. Patient with multidrug-resistant organisms in prior urine culture; will start patient on meropenem for now, appreciate ID recommendations. 09/08: Patient is febrile, Tmax 101.1 Fahrenheit x 2. Prelim blood culture shows gram-negative polo call from micro lab. Patient on IV meropenem continued. With complex history including on Prograf, immunocompromise state, ID is consulted. Prior history of ESBL and Pseudomonas UTI. Triple PCR for SARS-CoV-2, flu and RSV are negative 09/09: Patient afebrile since yesterday evening. On IV meropenem continued. Both bottles of Blood culture growing GNR. Patient on appropriate antibiotic. 2. Hypoglycemic episode in setting of insulin-dependent type 2 diabetes mellitus ? Suspected that hypoglycemic episode was secondary to home insulin dose given with minimal p.o. intake afterward. Improved with treatment at dialysis. Will treat with sliding scale insulin with meals for now, adjust as needed. 09/08: Hypoglycemia has resolved. Glucose 183. 3. ESRD on HD with mild hyperkalemia ? Nephrology consulted. Potassium 5.9 on admit. EKG with no T wave changes. Will likely need dialysis on 09/08, can temporize potassium as needed prior to that point. 3: Patient getting hemodialysis. Chronic medical conditions: ? Class II obesity: BMI 38 on admit. Complicates hospital course, care and prognosis. ? Paraplegia: Per history. Lives in [facility]. Left BKA. Complicates hospital course, care and prognosis. ? Chronic sacral decubitus ulcer: History of infection secondary to this in April 2024. Does not appear acutely infected on this admission. Wound care nurse consult ? Hypertension: Continue home medications. ? Hypothyroidism: Continue home Synthroid. ? Paroxysmal A-fib: Continue home Eliquis and Coreg. ? Anxiety/depression: Continue home escitalopram. DVT prophylaxis: Not indicated, on Eliquis CODE STATUS: Full code, verified Expected disposition: Back to [facility], 2 to 3 days Allergies/Procedures Done in Hospital Allergies No Known Allergies Allergy (Verified 09/07/24 07:56) Type of Care/Length of Stay Estimated LOS: More Than 30 Days Type of Care Needed: Intermediate Rehab Potential: Good Prognosis: Good Additional Orders/Day of Discharge Day of Discharge: 09/10/24 Dietary and Speech Recommendations Dietitian Recommendations/Changes: Will continue liberalized regular diet with consistency/texture as per MARKETING COMMUNICATIONS MANAGER. Will continue 120mL ensure plus HP 4 times per day w/ medpass. Monitor blood glucose level and restrict dietary carbohydrate as needed. Trend weights closely and adjust ONS as needed to optimize nutrition and prevent energy/pro depletion. Discharge Plan Admission Admit Date/Time: 09/07/24 15:47 Attending Provider: Denver Saunders Primary Care Provider: Vanessa Hutchins Consulting Providers: Ansley Peña; Jabari Medeiros; Abdias Randall Discharge Orders/Prescriptions Prescriptions: New ertapenem 1 gram recon soln 1 g IV .MWF 7 Days Qty: 3 0RF Rx Instructions: Give 1gm ertapenem with dialysis MWF. Dx: GNR bacteremia. Continued atorvastatin 40 mg Tablet 40 mg PO QHS acetaminophen 325 mg Tablet 650 mg PO Q4H PRN (Reason: PAIN/FEVER) ascorbic acid (vitamin C) 500 mg Tablet 500 mg PO QHS bisacodyl 10 mg Suppository 10 mg LA DAILY PRN (Reason: CONSTIPATION ) dextrose [Glucose Gel] 40 % Gel 15 g PO Q15M PRN (Reason: HYPGLYCEMIA ) Rx Instructions: until symptoms of low blood sugar are controlled Eliquis 5 mg Tablet 2.5 mg PO BID pantoprazole 40 mg Tablet,Delayed Release (Dr/Ec) 40 mg PO DAILY tacrolimus [Prograf] 1 mg Capsule 2 mg PO Q12H ondansetron HCl 4 mg Tablet 4 mg PO Q8H PRN (Reason: NAUSEA/VOMITING ) Senna Plus 8.6-50 mg Capsule 1 tab-cap PO BID sevelamer HCl 800 mg tablet 2,400 mg PO TIDCM Rx Instructions: must administer with a meal/food levothyroxine 150 mcg tablet 150 mcg PO DAILY@0600 acetaminophen 650 mg suppository 650 mg LA Q4H PRN (Reason: PAIN/FEVER) magnesium hydroxide [Milk of Magnesia] 400 mg/5 mL suspension 30 ml PO DAILY PRN (Reason: CONSTIPATION ) Benadryl Extra Strength 2-0.1 % cream 1 applic topical Q6H PRN (Reason: ITCHING ) ciclopirox 8 % solution 1 applic topical QHS Rx Instructions: APPLY ONE APPLICATION TOPICALLY TO RIGHT THUMB AT BEDTIME FOR NAIL FUNGUS escitalopram oxalate [Lexapro] 10 mg tablet 20 mg PO QHS B complex-vitamin C-folic acid 0.8 mg tablet 1 tab PO QPM insulin lispro 100 unit/mL insulin pen 1 sliding scale dose subcut TIDCM Protocol: 6. Sliding Scale Insulin Custom Condition: 180-200 mg/dl range Dose/Route: 2 Number of Units Condition: 201-250 Dose/Route: 3 Condition: 251-300 Dose/Route: 4 Condition: 301-350 Dose/Route: 5 Condition: 351-400 Dose/Route: 6 Condition: 401-450 Dose/Route: 7 Condition: >451 Dose/Route: call MD Protocol Text: Custom Sliding Scale guaifenesin [Adult Tussin Chest Congestion] 100 mg/5 mL liquid 200 mg PO Q4H PRN (Reason: COUGH/CONGESTION ) Fleet Enema 19-7 gram/118 mL enema 118 ml LA DAILY PRN (Reason: constipation) nystatin [Nyamyc] 100,000 unit/gram Powder 1 applic topical BID Qty: 0 0RF Protocol: *Topical Application Instructions APPLICATION INSTRUCTIONS: apply to groin and abdominal folds clonidine HCl 0.1 mg tablet 0.25 mg PO Q12H Rx Instructions: hold if bp is less than 100/60 carvedilol [Coreg] 25 mg tablet 50 mg PO BID Rx Instructions: must administer with a meal/food insulin lispro 100 unit/mL solution 5 unit subcut TID Rx Instructions: HOLD FOR BS LESS THAN 120 insulin glargine [Lantus Solostar U-100 Insulin] 100 unit/mL (3 mL) insulin pen 8 unit subcut QPM methyl salicylate-menthol Cream 1 applic topical BID Rx Instructions: APPLY TO SHOULDERS FOR PAIN hydroxyzine HCl 25 mg tablet 25 mg PO Q6H PRN (Reason: itching) aluminum-magnesium hydroxide 200-200 mg/5 mL suspension 30 ml PO Q4H PRN (Reason: GI DISTRESS ) glucagon HCl [Glucagon (HCl) Emergency Kit] 1 mg recon soln 1 mg IM Q20M PRN (Reason: HYPOGLYCEMIA ) polyethylene glycol 3350 [Miralax] 17 gram/dose powder 17 g PO Q24H PRN (Reason: CONSTIPATION ) melatonin 3 mg Tablet 9 mg PO Q24H PRN (Reason: INSOMNIA ) hydralazine 50 mg Tablet 50 mg PO TID calcitriol 0.5 mcg capsule 0.5 mcg PO MOWEFR Held midodrine 10 mg tablet 10 mg PO DAILY Hold Instructions: Hold while if SBP is more than 110 mmHg before dialysis Rx Instructions: BEFORE DIALYSIS Discontinued tobramycin sulfate 40 mg/mL solution 100 mg IV Q24H Rx Instructions: 100mg given with dialysis on Mon, Tues, Thurs, and Fri. Twice weekly bmp, cbc, tobramycin trough prior to HD, and esr. Fax to [phone]. Referrals / Follow Up: Vanessa Hutchins MD [Primary Care Provider] -
--- NOTE | 2024-09-10 11:17 | PCM.DC.SUM ---
Providers Date of Admission: 09/07/24 Date of Discharge: 09/10/24 Primary Care Physician: Dr. Vanessa Hutchins MD Consultations 09/07/24 17:54 Consult: Nephrology Routine Consulting Provider: Ansley Peña Reason for Consult: ESRD on HD EMERGENT Consult: No Notified: Yes Date Notified: 09/07/24 Time Notified: 20:00 Method of Notification: Answering Service 09/07/24 22:39 Consult: Infectious Disease Routine Consulting Provider: Jabari Medeiros Reason for Consult: concern for MDR UTI EMERGENT Consult: No Notified: Yes Date Notified: 09/07/24 Time Notified: 22:39 Method of Notification: Answering Service 09/08/24 08:19 Consult: Onc/Wound/mill oiler Routine Comment: Reason for Consult:: L ischial wound 09/08/24 08:27 Consult: Infectious Disease Routine Consulting Provider: Jabari Medeiros Reason for Consult: GNR Bateremia, on HD, 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 EMERGENT Consult: No Notified: Yes Date Notified: 09/08/24 Time Notified: 08:27 Method of Notification: Text Reason For Visit: HYPOGLYCEMIA, CONCERN FOR UTI, HYPERKALEMIA Diagnosis Discharge Diagnosis (1) Bacteremia due to Gram-negative bacteria: Status: Acute Code(s): R78.81 - Bacteremia (2) ESRD (end stage renal disease) on dialysis: Status: Acute Code(s): N18.6 - End stage renal disease; Z99.2 - Dependence on renal dialysis Plan Patient is a 38-year-old male who presented [facility] ED on 09/07/2024 with fever/chills and altered mentation status and lethargy in dialysis center with hypoglycemia, glucose 42. Patient was given D10 and increased to 180 mg per deciliter. Complicated past history. 1. Concern for multidrug-resistant UTI in setting of chronic urinary retention with suprapubic catheter ? Admit under inpatient status to PCU. Infectious disease consulted. Patient unable to give urine sample in the ED as he does not make much urine in setting of ESRD. CT abdomen pelvis showed diffuse bladder wall thickening and patient with notable leukocytosis that is different from baseline and subjective fever/chills. Patient with multidrug-resistant organisms in prior urine culture; will start patient on meropenem for now, appreciate ID recommendations. 09/08: Patient is febrile, Tmax 101.1 Fahrenheit x 2. Prelim blood culture shows gram-negative polo call from micro lab. Patient on IV meropenem continued. With complex history including on Prograf, immunocompromise state, ID is consulted. Prior history of ESBL and Pseudomonas UTI. Triple PCR for SARS-CoV-2, flu and RSV are negative 09/09: Patient afebrile since yesterday evening. On IV meropenem continued. Both bottles of Blood culture growing GNR. Patient on appropriate antibiotic. 09/10: Patient is afebrile. Blood cultures x 2 shows ESBL E. coli sensitive to meropenem and gentamicin. Patient had follow-up by ID. Feeling better. Suspected urinary source for gram-negative polo bacteremia. Discharged on 3 more doses of IV ertapenem dosed with hemodialysis on [facility]. 2. Hypoglycemic episode in setting of insulin-dependent type 2 diabetes mellitus ? Suspected that hypoglycemic episode was secondary to home insulin dose given with minimal p.o. intake afterward. Improved with treatment at dialysis. Will treat with sliding scale insulin with meals for now, adjust as needed. 09/08: Hypoglycemia has resolved. Glucose 183. 09/10, blood sugar about 1 50-200. Continue home doses with frequent checking before meals and at bedtime. 3. ESRD on HD with mild hyperkalemia ? Nephrology consulted. Potassium 5.9 on admit. EKG with no T wave changes. Will likely need dialysis on 09/08, can temporize potassium as needed prior to that point. 09/08: Patient getting hemodialysis. 09/10: Back to the schedule MW. Chronic medical conditions: ? Class II obesity: BMI 38 on admit. Complicates hospital course, care and prognosis. ? Paraplegia: Per history. Lives in long term. Left BKA. Complicates hospital course, care and prognosis. ? Chronic sacral decubitus ulcer: History of infection secondary to this in April 2024. Does not appear acutely infected on this admission. Wound care nurse consult ? Hypertension: Continue home medications. Blood pressure is high, antihypertensive medication adjusted ? Hypothyroidism: Continue home Synthroid. ? Paroxysmal A-fib: Continue home Eliquis and Coreg. ? Anxiety/depression: Continue home escitalopram. DVT prophylaxis: Not indicated, on Eliquis CODE STATUS: Full code, verified Discharge medication reconciliation done. Discharge follow-up instructions completed. Discharge process discussed with the patient and all questions were answered to patient's satisfaction. Follow with PCP in 1 to 2 weeks Total time spent, exact 35 minutes on discharge meds reconciliation, examination, coordination of care with nurses and ancillary staff, review of imaging and blood test and discussion with the patient on follow-up instructions. Medications at Discharge Home Medications acetaminophen 325 mg tablet 650 mg PO Q4H PRN PAIN/FEVER 01/02/23 apixaban 5 mg tablet (Eliquis) 2.5 mg PO BID AFIB pulm edema 01/02/23 ascorbic acid (vitamin C) 500 mg tablet 500 mg PO QHS SUPPLEMENT 01/02/23 atorvastatin 40 mg tablet 40 mg PO QHS CHOLESTEROL 01/02/23 bisacodyl 10 mg rectal suppository 10 mg OR DAILY PRN CONSTIPATION 01/02/23 dextrose 40 % oral gel (Glucose Gel) 15 g PO Q15M PRN HYPGLYCEMIA 01/02/23 ondansetron HCl 4 mg tablet 4 mg PO Q8H PRN NAUSEA/VOMITING 01/02/23 pantoprazole 40 mg tablet,delayed release 40 mg PO DAILY ACID REFLUX 01/02/23 sennosides 8.6 mg-docusate sodium 50 mg capsule (Senna Plus) 1 tab-cap PO BID CONSTIPATION 01/02/23 tacrolimus 1 mg capsule, immediate-release (Prograf) 2 mg PO Q12H IMMUNOSUPPRESIVE 01/02/23 sevelamer HCl 800 mg tablet 2,400 mg PO TIDCM ESRD 04/21/23 levothyroxine 150 mcg tablet 150 mcg PO DAILY@0600 THYROID 07/16/23 acetaminophen 650 mg rectal suppository 650 mg OR Q4H PRN PAIN/FEVER 08/06/23 magnesium hydroxide 400 mg/5 mL oral suspension (Milk of Magnesia) 30 ml PO DAILY PRN CONSTIPATION 08/06/23 ciclopirox 8 % topical solution 1 applic topical QHS NAIL FUNGUS 11/17/23 diphenhydramine-zinc acetate 2 %-0.1 % topical cream (Benadryl Extra Strength) 1 applic topical Q6H PRN ITCHING 12/06/23 escitalopram oxalate 10 mg tablet (Lexapro) 20 mg PO QHS DEPRESSION 12/30/23 insulin lispro 100 unit/mL subcutaneous pen 1 sliding scale dose subcut TIDCM 03/22/24 vitamin B complex-vitamin C-folic acid 0.8 mg tablet 1 tab PO QPM HEALTH MAINTENANCE 03/22/24 guaifenesin 100 mg/5 mL oral liquid (Adult Tussin Chest Congestion) 200 mg PO Q4H PRN COUGH/CONGESTION 03/29/24 aluminum-magnesium hydroxide 200 mg-200 mg/5 mL oral suspension 30 ml PO Q4H PRN GI DISTRESS 04/13/24 glucagon HCl 1 mg solution for injection (Glucagon (HCl) Emergency Kit) 1 mg IM Q20M PRN HYPOGLYCEMIA 04/13/24 hydralazine 50 mg tablet 50 mg PO TID BLOOD PRESSURE 04/13/24 melatonin 3 mg tablet 9 mg PO Q24H PRN INSOMNIA 04/13/24 polyethylene glycol 3350 17 gram/dose oral powder (Miralax) 17 g PO Q24H PRN CONSTIPATION 04/13/24 sodium phosphates 19 gram-7 gram/118 mL enema (Fleet Enema) 118 ml OR DAILY PRN constipation 04/22/24 nystatin 100,000 unit/gram topical powder (Nyamyc) 1 applic topical BID #0 grams 04/26/24 carvedilol 25 mg tablet (Coreg) 50 mg PO BID 06/27/24 clonidine HCl 0.1 mg tablet 0.25 mg PO Q12H hypertension 06/27/24 insulin glargine 100 unit/mL (3 mL) subcutaneous pen (Lantus Solostar U-100 Insulin) 8 unit subcut QPM DM 06/27/24 insulin lispro 100 unit/mL subcutaneous solution 5 unit subcut TID DM 06/27/24 methyl salicylate-menthol topical cream 1 applic topical BID 06/27/24 hydroxyzine HCl 25 mg tablet 25 mg PO Q6H PRN itching 07/05/24 midodrine 10 mg tablet 10 mg PO DAILY hypotension 07/05/24 Held on 09/10/24. Instructions: Hold while if SBP is more than 110 mmHg before dialysis calcitriol 0.5 mcg capsule 0.5 mcg PO MOWEFR 09/07/24 ertapenem 1 gram solution for injection 1 g IV .MWF 7 days #3 ea 09/10/24 Physical Exam Narrative Seen and examined. Afebrile for 48 hours Patient was febrile, temperature 101 Fahrenheit. GNR bacteremia on blood culture. Patient on Prograf for history of kidney transplant which is failed. Getting hemodialysis today Physical exam General: Alert, Oriented x3, Cooperative HEENT: Atraumatic, PERRLA, EOMI, Normocephalic Oral: No Gingival or Mucosal Lesions/ Ulcerations Neck: Supple, No JVD, Negative Carotid Bruits Chest wall/Lungs: Air entry diminished in bilateral lung bases. Lungs bilateral clear Cardiovascular: Regular rate, Regular Rhythm, Normal S1, Normal S2, No M/G/R Abdomen: Bowel Sounds Present, Soft, Non Tender, Non-Distended : On hemodialysis. No dysuria. No renal angle tenderness. Suprapubic catheter. Extremities: Chronic right lower extremity edema capillary Refill Less than 3 Seconds Skin: No rashes, No breakdown Musculoskeletal:Left BKA. Stump is fully healed. No Tenderness to Palpation of Joints or Extremities Neurological: Cranial nerves II-XII grossly intact, DTR 2+/4. No acute focal neurological deficit. Psych/Mental Status: Normal Affect, Appropriate. Weight / BMI Weight Weight: 274 lb 7.608 oz Body Mass Index (BMI) 36.3 ABG / Lab / Microbiology Data 09/10/24 05:04 09/10/24 05:04 Laboratory: Laboratory Results - last 24 hr 09/09/24 16:28: POC Glucose 249 H 09/09/24 21:35: POC Glucose 225 H 09/10/24 05:04: WBC 4.7, RBC 3.30 L, Hgb 10.2 L, Hct 31.8 L, MCV 96.4 H, MCH 30.9, MCHC 32.1, RDW Std Deviation 50.6 H, RDW Coeff of Shanta 14.5, Plt Count 123 L, MPV 11.4, Immature Gran % (Auto) 0.400, Neut % (Auto) 42.0 L, Lymph % (Auto) 24.5, [place] % (Auto) 20.9 H, Eos % (Auto) 10.9 H, Baso % (Auto) 1.3 H, Absolute Neuts (auto) 2.0, Absolute Lymphs (auto) 1.15, Nucleated RBC % 0, Sodium 134, Potassium 5.0, Chloride 95 L, Carbon Dioxide 20.8 L, Anion Gap 18 H, BUN 51 H, Creatinine 7.75 H*, Estim Creat Clear Calc 18.22 L, Est GFR (MDRD) Non-Af 9 L, BUN/Creatinine Ratio 6.6 L, Glucose 171 H, Calcium 9.1 09/10/24 06:29: POC Glucose 164 H 09/10/24 12:23: POC Glucose 212 H Microbiology: Microbiology 09/07/24 17:13 Blood Culture (Wb) - Arm Right Blood Culture - Preliminary 09/07/24 15:40 Blood Culture (Wb) - Arm Right Blood Culture - Preliminary ESBL Escherichia coli 09/07/24 07:55 Mucosa - Nose SARS-CoV-2, Influenza & RSV (PCR) - Final D/C Instructions DC O2, CPAP, BIPAP Needs Home O2 Discharge instructions: Yes Type of respiratory needs?: Oxygen Oxygen frequency: Continuous Continuous oxygen liters per minute: 3 DC home with Oxygen: Yes Home O2 MD Review: I have reviewed the oxygen testing, and the patient qualifies for home oxygen equipment and portability. The patient is mobile in the home and the community. Meaningful Use Info Meaningful Use Meaningful Use Diagnoses (Choose all that apply): None applicable Ischemic Stroke Statin Dosing Therapy Reference: STATIN DOSE THERAPY REFERENCE: * Patients > 75 years receive moderate or high dose statin therapy. * Patients 75 years or YOUNGER should receive HIGH intensity statin dose unless contraindicated. You will be required to document reason for non-treatment if statin daily dose does not meet guidelines. HIGH DOSE STATIN THERAPY DAILY Atorvastatin > than or = to 40 mg Rosuvastatin > than or = to 20 mg Amlodipine + Atorvastatin > than or = to 2.5/40 mg Ezetimibe + Simvastatin 10/80 mg Simvastatin 80mg Discharge Plan Admission Admit Date/Time: 09/07/24 15:47 Attending Provider: Denver Saunders Primary Care Provider: Vanessa Hutchins Consulting Providers: Ansley Peña; Jabari Medeiros; Abdias Randall Discharge Orders/Prescriptions Prescriptions: New ertapenem 1 gram recon soln 1 g IV .MWF 7 Days Qty: 3 0RF Rx Instructions: Give 1gm ertapenem with dialysis MWF. Dx: GNR bacteremia. Continued atorvastatin 40 mg Tablet 40 mg PO QHS acetaminophen 325 mg Tablet 650 mg PO Q4H PRN (Reason: PAIN/FEVER) ascorbic acid (vitamin C) 500 mg Tablet 500 mg PO QHS bisacodyl 10 mg Suppository 10 mg OR DAILY PRN (Reason: CONSTIPATION ) dextrose [Glucose Gel] 40 % Gel 15 g PO Q15M PRN (Reason: HYPGLYCEMIA ) Rx Instructions: until symptoms of low blood sugar are controlled Eliquis 5 mg Tablet 2.5 mg PO BID pantoprazole 40 mg Tablet,Delayed Release (Dr/Ec) 40 mg PO DAILY tacrolimus [Prograf] 1 mg Capsule 2 mg PO Q12H ondansetron HCl 4 mg Tablet 4 mg PO Q8H PRN (Reason: NAUSEA/VOMITING ) Senna Plus 8.6-50 mg Capsule 1 tab-cap PO BID sevelamer HCl 800 mg tablet 2,400 mg PO TIDCM Rx Instructions: must administer with a meal/food levothyroxine 150 mcg tablet 150 mcg PO DAILY@0600 acetaminophen 650 mg suppository 650 mg OR Q4H PRN (Reason: PAIN/FEVER) magnesium hydroxide [Milk of Magnesia] 400 mg/5 mL suspension 30 ml PO DAILY PRN (Reason: CONSTIPATION ) Benadryl Extra Strength 2-0.1 % cream 1 applic topical Q6H PRN (Reason: ITCHING ) ciclopirox 8 % solution 1 applic topical QHS Rx Instructions: APPLY ONE APPLICATION TOPICALLY TO RIGHT THUMB AT BEDTIME FOR NAIL FUNGUS escitalopram oxalate [Lexapro] 10 mg tablet 20 mg PO QHS B complex-vitamin C-folic acid 0.8 mg tablet 1 tab PO QPM insulin lispro 100 unit/mL insulin pen 1 sliding scale dose subcut TIDCM Protocol: 6. Sliding Scale Insulin Custom Condition: 180-200 mg/dl range Dose/Route: 2 Number of Units Condition: 201-250 Dose/Route: 3 Condition: 251-300 Dose/Route: 4 Condition: 301-350 Dose/Route: 5 Condition: 351-400 Dose/Route: 6 Condition: 401-450 Dose/Route: 7 Condition: >451 Dose/Route: call MD Protocol Text: Custom Sliding Scale guaifenesin [Adult Tussin Chest Congestion] 100 mg/5 mL liquid 200 mg PO Q4H PRN (Reason: COUGH/CONGESTION ) Fleet Enema 19-7 gram/118 mL enema 118 ml OR DAILY PRN (Reason: constipation) nystatin [Nyamyc] 100,000 unit/gram Powder 1 applic topical BID Qty: 0 0RF Protocol: *Topical Application Instructions APPLICATION INSTRUCTIONS: apply to groin and abdominal folds clonidine HCl 0.1 mg tablet 0.25 mg PO Q12H Rx Instructions: hold if bp is less than 100/60 carvedilol [Coreg] 25 mg tablet 50 mg PO BID Rx Instructions: must administer with a meal/food insulin lispro 100 unit/mL solution 5 unit subcut TID Rx Instructions: HOLD FOR BS LESS THAN 120 insulin glargine [Lantus Solostar U-100 Insulin] 100 unit/mL (3 mL) insulin pen 8 unit subcut QPM methyl salicylate-menthol Cream 1 applic topical BID Rx Instructions: APPLY TO SHOULDERS FOR PAIN hydroxyzine HCl 25 mg tablet 25 mg PO Q6H PRN (Reason: itching) aluminum-magnesium hydroxide 200-200 mg/5 mL suspension 30 ml PO Q4H PRN (Reason: GI DISTRESS ) glucagon HCl [Glucagon (HCl) Emergency Kit] 1 mg recon soln 1 mg IM Q20M PRN (Reason: HYPOGLYCEMIA ) polyethylene glycol 3350 [Miralax] 17 gram/dose powder 17 g PO Q24H PRN (Reason: CONSTIPATION ) melatonin 3 mg Tablet 9 mg PO Q24H PRN (Reason: INSOMNIA ) hydralazine 50 mg Tablet 50 mg PO TID calcitriol 0.5 mcg capsule 0.5 mcg PO MOWEFR Held midodrine 10 mg tablet 10 mg PO DAILY Hold Instructions: Hold while if SBP is more than 110 mmHg before dialysis Rx Instructions: BEFORE DIALYSIS Discontinued tobramycin sulfate 40 mg/mL solution 100 mg IV Q24H Rx Instructions: 100mg given with dialysis on Mon, Tues, Thurs, and Fri. Twice weekly bmp, cbc, tobramycin trough prior to HD, and esr. Fax to [phone]. Referrals / Follow Up: Vanessa Hutchins MD [Primary Care Provider] - Charges/Coding Visit Charges Inpatient E&M: 73196 Disch Hosp >30min
[2024-09-10] MEDS: Ertapenem Sod 0.5 GM in 0.9% Normal Saline (50mL Bag) 50 ML IV (12:40)
[2024-09-10 12:48] LABS: Bedside Glucose 212 mg/dL (74-106)
--- NOTE | 2024-09-10 13:46 | WOUNDNOTE ---
Ostomy appliance changes to the left lower abdomen. stoma pink. sits at skin level. peristomal skin intact. skin cleansed with soap and water. pat dry. applied a new 2 piece flat [place] appliance with a small amount of stoma paste. pt tolerated well.
--- NOTE | 2024-09-10 14:47 | PHA.DC.MR.R ---
Pharmacy PR Med Reconciliation Pharmacy Service has performed discharge medication reconciliation for this patient. The patient's discharge medication list was reviewed for discrepancies and discrepancies were resolved. Medications at Discharge Home Medications acetaminophen 325 mg tablet 650 mg PO Q4H PRN PAIN/FEVER 01/02/23 apixaban 5 mg tablet (Eliquis) 2.5 mg PO BID AFIB pulm edema 01/02/23 ascorbic acid (vitamin C) 500 mg tablet 500 mg PO QHS SUPPLEMENT 01/02/23 atorvastatin 40 mg tablet 40 mg PO QHS CHOLESTEROL 01/02/23 bisacodyl 10 mg rectal suppository 10 mg MT DAILY PRN CONSTIPATION 01/02/23 dextrose 40 % oral gel (Glucose Gel) 15 g PO Q15M PRN HYPGLYCEMIA 01/02/23 ondansetron HCl 4 mg tablet 4 mg PO Q8H PRN NAUSEA/VOMITING 01/02/23 pantoprazole 40 mg tablet,delayed release 40 mg PO DAILY ACID REFLUX 01/02/23 sennosides 8.6 mg-docusate sodium 50 mg capsule (Senna Plus) 1 tab-cap PO BID CONSTIPATION 01/02/23 tacrolimus 1 mg capsule, immediate-release (Prograf) 2 mg PO Q12H IMMUNOSUPPRESIVE 01/02/23 sevelamer HCl 800 mg tablet 2,400 mg PO TIDCM ESRD 04/21/23 levothyroxine 150 mcg tablet 150 mcg PO DAILY@0600 THYROID 07/16/23 acetaminophen 650 mg rectal suppository 650 mg MT Q4H PRN PAIN/FEVER 08/06/23 magnesium hydroxide 400 mg/5 mL oral suspension (Milk of Magnesia) 30 ml PO DAILY PRN CONSTIPATION 08/06/23 ciclopirox 8 % topical solution 1 applic topical QHS NAIL FUNGUS 11/17/23 diphenhydramine-zinc acetate 2 %-0.1 % topical cream (Benadryl Extra Strength) 1 applic topical Q6H PRN ITCHING 12/06/23 escitalopram oxalate 10 mg tablet (Lexapro) 20 mg PO QHS DEPRESSION 12/30/23 insulin lispro 100 unit/mL subcutaneous pen 1 sliding scale dose subcut TIDCM 03/22/24 vitamin B complex-vitamin C-folic acid 0.8 mg tablet 1 tab PO QPM HEALTH MAINTENANCE 03/22/24 guaifenesin 100 mg/5 mL oral liquid (Adult Tussin Chest Congestion) 200 mg PO Q4H PRN COUGH/CONGESTION 03/29/24 aluminum-magnesium hydroxide 200 mg-200 mg/5 mL oral suspension 30 ml PO Q4H PRN GI DISTRESS 04/13/24 glucagon HCl 1 mg solution for injection (Glucagon (HCl) Emergency Kit) 1 mg IM Q20M PRN HYPOGLYCEMIA 04/13/24 hydralazine 50 mg tablet 50 mg PO TID BLOOD PRESSURE 04/13/24 melatonin 3 mg tablet 9 mg PO Q24H PRN INSOMNIA 04/13/24 polyethylene glycol 3350 17 gram/dose oral powder (Miralax) 17 g PO Q24H PRN CONSTIPATION 04/13/24 sodium phosphates 19 gram-7 gram/118 mL enema (Fleet Enema) 118 ml MT DAILY PRN constipation 04/22/24 nystatin 100,000 unit/gram topical powder (Nyamyc) 1 applic topical BID #0 grams 04/26/24 carvedilol 25 mg tablet (Coreg) 50 mg PO BID 06/27/24 clonidine HCl 0.1 mg tablet 0.25 mg PO Q12H hypertension 06/27/24 insulin glargine 100 unit/mL (3 mL) subcutaneous pen (Lantus Solostar U-100 Insulin) 8 unit subcut QPM DM 06/27/24 insulin lispro 100 unit/mL subcutaneous solution 5 unit subcut TID DM 06/27/24 methyl salicylate-menthol topical cream 1 applic topical BID 06/27/24 hydroxyzine HCl 25 mg tablet 25 mg PO Q6H PRN itching 07/05/24 midodrine 10 mg tablet 10 mg PO DAILY hypotension 07/05/24 Held on 09/10/24. Instructions: Hold while if SBP is more than 110 mmHg before dialysis calcitriol 0.5 mcg capsule 0.5 mcg PO MOWEFR 09/07/24 ertapenem 1 gram solution for injection 1 g IV .MWF 7 days #3 ea 09/10/24
--- NOTE | 2024-09-10 14:59 | CASEMGMT ---
Discharge Planning Discharge orders, signed med list, and transport time sent to [facility]. Physicians will transport pt by cot at 3:30p. Nursing, SW, pt, and his sister (Rudy) updated. Selina Sylvester DC Planning Asst.
--- NOTE | 2024-09-10 15:31 | PN.RENAL_ITS ---
Subjective Subjective no new complaints Objective Data Objective Data Vital Signs: Vital Signs Temp Pulse Resp BP Pulse Ox O2 Del Method O2 Flow Rate 97.4 F L 64 18 152/95 H 98 Nasal Cannula 3 09/10/24 14:48 09/10/24 14:48 09/10/24 14:48 09/10/24 14:48 09/10/24 14:48 09/10/24 14:48 09/10/24 14:48 Oxygen Flow Rate (L/min) 3 Oxygen Delivery Method Nasal Cannula Weight: 124.5 kg Body Mass Index (BMI) 36.3 Intake & Output: Intake and Output for Last 24 Hours 09/08/24 09/09/24 09/10/24 23:59 23:59 23:59 Intake Total 160 / 160 700 / 940 535 / 535 Output Total 5980 / 5980 3500 / 3500 0 / 0 Balance -5820 / -5820 -2800 / -2560 535 / 535 Lab / Micro Data 09/10/24 05:04 09/10/24 05:04 Labs: Laboratory Results - last 24 hr 09/09/24 16:28: POC Glucose 249 H 09/09/24 21:35: POC Glucose 225 H 09/10/24 05:04: WBC 4.7, RBC 3.30 L, Hgb 10.2 L, Hct 31.8 L, MCV 96.4 H, MCH 30.9, MCHC 32.1, RDW Std Deviation 50.6 H, RDW Coeff of Shanta 14.5, Plt Count 123 L, MPV 11.4, Immature Gran % (Auto) 0.400, Neut % (Auto) 42.0 L, Lymph % (Auto) 24.5, [place] % (Auto) 20.9 H, Eos % (Auto) 10.9 H, Baso % (Auto) 1.3 H, Absolute Neuts (auto) 2.0, Absolute Lymphs (auto) 1.15, Nucleated RBC % 0, Sodium 134, Potassium 5.0, Chloride 95 L, Carbon Dioxide 20.8 L, Anion Gap 18 H, BUN 51 H, C reatinine 7.75 H*, Estim Creat Clear Calc 18.22 L, Est GFR (MDRD) Non-Af 9 L, B UN/Creatinine Ratio 6.6 L, Glucose 171 H, Calcium 9.1 09/10/24 06:29: POC Glucose 164 H 09/10/24 12:23: POC Glucose 212 H Micro: Microbiology 09/07/24 17:13 Blood Culture (Wb) - Arm Right Blood Culture - Preliminary 09/07/24 15:40 Blood Culture (Wb) - Arm Right Blood Culture - Preliminary ESBL Escherichia coli 09/07/24 07:55 Mucosa - Nose SARS-CoV-2, Influenza & RSV (PCR) - Final Rhythm Strip Rhythm Strip: Sinus Rhythm Rate: 70 Ectopy: None Physical Exam Narrative Alert awake no obvious distress no edema Assessment & Plan Assessment/Plan (1) Acute hyperkalemia: (2) ESRD (end stage renal disease) on dialysis: PLAN: On hemodialysis Saturday, Saturday, Saturday schedule. Hyperkalemia. better Bacteremia. ID consult
== END 2024-09-10 16:15 | disposition skilled nursing facility (03) | DRG 698 ==
LOC: ED 15:12 → PCU 17:23
PROVIDERS: Admitting Provider Hospitalist; Emergency Provider Emergency Medicine; PCP Internal Medicine; Visit Provider Internal Medicine
DX: T83.518A Infection and inflammatory reaction due to other urinary catheter, initial encounter (principal); N18.6 End stage renal disease; T86.12 Kidney transplant failure; R78.81 Bacteremia; I12.0 Hypertensive chronic kidney disease with stage 5 chronic kidney disease or end stage renal disease; G82.22 Paraplegia, incomplete; N39.0 Urinary tract infection, site not specified; Z16.24 Resistance to multiple antibiotics; I48.0 Paroxysmal atrial fibrillation; E16.0 Drug-induced hypoglycemia without coma; E11.22 Type 2 diabetes mellitus with diabetic chronic kidney disease; F32.A Depression, unspecified; E03.9 Hypothyroidism, unspecified; E66.812 Obesity, class 2; Z89.512 Acquired absence of left leg below knee; H54.7 Unspecified visual loss; K21.9 Gastro-esophageal reflux disease without esophagitis; E87.5 Hyperkalemia; E11.649 Type 2 diabetes mellitus with hypoglycemia without coma; F41.9 Anxiety disorder, unspecified; E78.5 Hyperlipidemia, unspecified; Z79.4 Long term (current) use of insulin; Z99.2 Dependence on renal dialysis; R03.1 Nonspecific low blood-pressure reading; T38.3X5A Adverse effect of insulin and oral hypoglycemic [antidiabetic] drugs, initial encounter; Z68.38 Body mass index [BMI] 38.0-38.9, adult; Y83.0 Surgical operation with transplant of whole organ as the cause of abnormal reaction of the patient, or of later complication, without mention of misadventure at the time of the procedure; Z11.52 Encounter for screening for COVID-19; Z79.01 Long term (current) use of 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; Z79.84 Long term (current) use of oral hypoglycemic drugs; Z79.890 Hormone replacement therapy; Z79.899 Other long term (current) drug therapy; Y84.6 Urinary catheterization as the cause of abnormal reaction of the patient, or of later complication, without mention of misadventure at the time of the procedure
CPT/HCPCS: 36415; 71046; 71260; 74177; 80048; 82962; 85025; 85652; 86140; 87040; 87077; 87186; 87631; 90937; 93005; 94668; 99285; J2185; Q9967; A4216; G0257; J2405

== ENCOUNTER 2024-10-30 18:09 | Outpatient (CLI) | payer MEDICARE, MEDICAID, SELFPAY ==
[2024-10-30 19:22] LABS: Absolute Lymphocyte Count 1.83 X10^3/uL (0.83-4.51); Absolute Neutrophil Count 4.4 X10^3/uL (2.0-7.7); Basophil# 0.07 X10^3/uL; Basophil% 0.9 % (0-1); Eosinophil# 0.65 X10^3/uL; Eosinophils% 8.7 % (0-5); Hematocrit 33.7 % (40-54); Hemoglobin 11.1 g/dL (13.0-16.5); Lymphocyte # 1.83 X10^3/ul (0.83-4.51); Lymphocyte % 24.5 % (19-41); Mean Corp Hgb Conc 32.9 g/dL (32-36); Mean Corpuscular Hgb 30.5 pg (27.0-32.0); Mean Corpuscular Volume 92.6 fL (80-94); Mean Platelet Vol. 11.2 fl (6.2-12.0); Monocyte# 0.48 X10^3/uL; Monocyte% 6.4 % (0-10); NRBC Flagged by Analyzer 0 % (0-5); Neutrophil # 4.42 X10^3/uL (2.7-7.7); Neutrophil % 59.2 % (47-70); Platelet Count 194 K/mm3 (150-450); RBC Distribution Width CV 14.4 % (11.6-14.6); RBC Distribution Width SD 48.7 fl (35.1-43.9); Red Blood Count 3.64 M/mm3 (4.6-6.2); White Blood Count 7.5 K/mm3 (4.4-11.0)
[2024-10-30 20:30] LABS: BUN 29 mg/dL (4-19)
[2024-10-30 20:51] LABS: BUN 80 mg/dL (4-19); Hepatitis B Surface Antigen Nonreactive (Nonreactive); Potassium 5.6 mmol/L (3.3-5.1)
== END 2024-10-30 23:59 | disposition home or self-care (01) ==
LOC: LABSPEC 18:09
PROVIDERS: PCP Internal Medicine; Visit Provider Internal Medicine Nephrology
DX: N18.6 End stage renal disease (principal)
CPT/HCPCS: 84132; 84520; 85025; 87340

== ENCOUNTER 2024-11-09 09:35 | Emergency (ER) | payer MEDICARE, MEDICAID, SELFPAY ==
[2024-11-09 09:36] VITALS: BP 134/89; PULSE 77; RESP 18; TEMP 36.1; O2SAT 95; BMI 41.7
--- NOTE | 2024-11-09 09:43 | EKG12_ITS ---
Test Reason : Blood Pressure : */* mmHG Vent. Rate : 75 BPM Atrial Rate : 75 BPM P-R Int : 174 ms QRS Dur : 94 ms QT Int : 440 ms P-R-T Axes : 42 11 78 degrees QTcB Int : 491 ms Normal sinus rhythm Possible Left atrial enlargement Prolonged QT Abnormal ECG Confirmed by Benedicto Kendrick ([id number]), acquisition editor JENS DANIELSON ([id number]) on 11/13/2024 1:13:58 PM Referred By: UG/CG Confirmed By: Benedicto Kendrick
--- NOTE | 2024-11-09 10:29 | CT_ITS ---
PROCEDURE: BRAIN/HEAD WITHOUT CONTRAST, 11/09/2024 REASON FOR EXAM: AMS, QUESTIONABLE SEIZURE-LIKE ACTIVITY COMPARISON: 04/22/2024 TECHNIQUE: CT head was performed without IV contrast. Multiplanar reformats were generated. RADIATION DOSE SUMMARY: CTDlvol: 44.99 mGy DLP: 846.73 mGycm One or more dose reduction techniques were used (e.g., Automated exposure control, adjustment of the mA and/or kV according to patient size, use of iterative reconstruction technique). FINDINGS: Cerebrum: No visible acute hemorrhage, definite acute territorial infarct, or visible mass. Small remote appearing infarct in the periventricular RIGHT frontal centrum semiovale is new from 04/22/2024. Similar prominent perivascular space and/or tiny lacunar infarcts in the RIGHT basal ganglia. Cerebellum/brainstem: Unremarkable. Note slight limitation due to beam hardening artifact. Ventricles/extra-axial spaces: Mild lateral ventriculomegaly is similar to prior. A 5 x 7 mm hyperdense focus along the superior aspect of the 3rd ventricle near the foramina of [place]. Similar relative sulcal effacement at the vertex. Paranasal sinuses/mastoid air cells: Mild/moderate RIGHT and mild LEFT inferior maxillary mucosal thickening. Trace to mild ethmoid air cell mucosal thickening. Mild bilateral sphenoid sinus mucosal thickening.. Scalp/calvarium: Unremarkable. Other: Intracranial atherosclerosis. Similar abnormal appearance of the LEFT globe which may be postoperative. Similar bilateral mastoid effusions. CT/Brain/Head without Contrast IMPRESSION: 1. A small infarct in the periventricular RIGHT frontal centrum semiovale is ne w from 04/22/2024 but subacute to chronic in appearance. No definite or visible acute appearing infarct. If there is persi stent concern, consider MRI. 2. Similar mild lateral ventriculomegaly with a 7 mm hyperdense probable colloi d cyst along the 3rd ventricle. Given this constellation, obstructive hydrocephalus is favored, however again chronic. No te this places the patient at risk for future episodes of acute hydrocephalus and for that reason neurosurgical consultation is recommended. Additionally, correlate for clinical evidence of background communicating/normal pressure hydrocephalus whi ch may appear similarly. 3. Mild/moderate paranasal sinus disease and similar bilateral mastoid effusion s. Correlate for clinical evidence of mastoiditis. 4. Similar abnormal appearance of the LEFT globe which may be postoperative. Co rrelate with medical/surgical history. 5. Additional description as above. Reading Location: [facility]
--- NOTE | 2024-11-09 10:30 | EDS_ITS ---
HPI History of Present Illness Chief Complaint: Seizure Informant: patient and EMS Narrative Narrative: Patient is a 39-year-old male with history of end-stage renal disease on hemodialysis (Saturday and Saturday), chronic wounds, insulin-dependent diabetes mellitus, prior left BKA, PE, hypertension presenting from dialysis after syncopal versus seizure activity. Per EMS report patient was at dialysis today (approximately usp through) when he stiffened up and then went unresponsive. At that time his blood pressure went from 170 systolic to 100 systolic. Patient then came around. Patient currently has no complaints except for some chronic right shoulder pain. Denies any chest pain. Does have chronic indwelling Hurst catheter secondary to his wounds per patient but states he does not produce much urine. Denies any history of any seizure activity. Is chronically anticoagulated on Eliquis. Is a resident of a nursing facility. [facility] Medical History Chronic pain Chronic indwelling Hurst catheter Dialysis patient Kidney disease CPAP (continuous positive airway pressure) dependence Sleep apnea Hypertension Blind Encephalopathy Hyponatremia Hypertensive urgency Acute delirium Decubitus ulcer Abscess Left ischial pressure sore Open wound of left buttock with complication Current use of alf anticoagulation Acute hyperkalemia Acute alteration in mental status Phantom limb syndrome with pain Paraplegia Metabolic encephalopathy ESRD (end stage renal disease) on dialysis Hx of pulmonary embolus Type 2 diabetes mellitus End-stage renal disease on hemodialysis Anticoagulant long-term use History of deep vein thrombosis Anemia in chronic kidney disease, on chronic dialysis 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 H/O deep venous thrombosis Osteomyelitis of pelvic region Lives in penitentiary Anxiety Open wound Insulin dependent diabetes mellitus Uses wheelchair Injury of back Non-healing wound of amputation stump DM type 2, goal HbA1c < 7% 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 disease 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, stage 4 Neurogenic bowel Chronic kidney disease with end stage renal failure on dialysis Kidney transplant failure Dependence on renal dialysis Pressure ulcer of left heel, unspecified stage Gastro-esophageal reflux disease without esophagitis Other pericardial effusion (noninflammatory) Other pulmonary embolism without acute cor pulmonale Hypertensive heart and chronic kidney disease with heart failure and stage 1 through stage 4 chronic kidney disease, or unspecified chronic kidney disease Depression Hyperlipemia Hypothyroidism Anemia in chronic kidney disease Neuromuscular dysfunction of bladder, unspecified Paraplegia, incomplete Other acute osteomyelitis, left ankle and foot End stage renal disease Home Medications ?Medication ?Instructions ?Recorded ?Last Taken ?Type acetaminophen 325 mg tablet 650 mg PO Q4H PRN PAIN/FEV ER 01/02/23 04/21/23 History ascorbic acid (vitamin C) 500 mg 500 mg PO QHS SUPPLEM ENT 01/02/23 11/08/24 History tablet atorvastatin 40 mg tablet 40 mg PO QHS CHOLESTEROL 11/08/24 History bisacodyl 10 mg rectal suppository 10 mg RI DAILY PRN CONSTIPATION 01/02/23 Unknown History dextrose 40 % oral gel (Glucose 15 g PO Q15M PRN HYPGL YCEMIA 01/02/23 Unknown History Gel) ondansetron HCl 4 mg tablet 4 mg PO Q8H PRN NAUSEA/VOM ITING 01/02/23 Unknown History pantoprazole 40 mg tablet,delayed 40 mg PO DAILY ACID REFLUX 01/02/23 11/09/24 History release sennosides 8.6 mg-docusate sodium 1 tab-cap PO BID CON STIPATION 01/02/23 11/09/24 History 50 mg capsule (Senna Plus) tacrolimus 1 mg capsule, 2 mg PO Q12H IMMUNOSUPPRESIV E 01/02/23 11/09/24 History immediate-release (Prograf) sevelamer HCl 800 mg tablet 2,400 mg PO TIDCM ESRD 11/09/24 History levothyroxine 150 mcg tablet 150 mcg PO DAILY@0600 THY ROID 07/16/23 11/09/24 History acetaminophen 650 mg rectal 650 mg RI Q4H PRN PAIN/FEV ER 08/06/23 Unknown History suppository magnesium hydroxide 400 mg/5 mL 30 ml PO DAILY PRN CON STIPATION 08/06/23 Unknown History oral suspension (Milk of Magnesia) ciclopirox 8 % topical solution 1 applic topical QHS N AIL FUNGUS 11/17/2310/30 History diphenhydramine-zinc acetate 2 1 applic topical Q6H RI N ITCHING 12/06/23 Unknown History %-0.1 % topical cream (Benadryl Extra Strength) insulin lispro 100 unit/mL 1 sliding scale dose subcut TIDCM 03/22/24 11/09/24 History subcutaneous pen guaifenesin 100 mg/5 mL oral 200 mg PO Q4H PRN COUGH/C ONGESTION 03/29/24 Unknown History liquid (Adult Tussin Chest Congestion) aluminum-magnesium hydroxide 200 30 ml PO Q4H PRN GI D ISTRESS 04/13/24 Unknown History mg-200 mg/5 mL oral suspension glucagon HCl 1 mg solution for 1 mg IM Q20M PRN HYPOGL YCEMIA 04/13/24 Unknown History injection (Glucagon (HCl) Emergency Kit) hydralazine 50 mg tablet 50 mg PO TID BLOOD PRESSURE 04/13/24 11/09/24 History melatonin 3 mg tablet 9 mg PO Q24H PRN INSOMNIA Unknown History polyethylene glycol 3350 17 17 g PO Q24H PRN CONSTIPAT ION 04/13/24 Unknown History gram/dose oral powder (Miralax) sodium phosphates 19 gram-7 118 ml RI DAILY PRN consti pation 04/22/24 Unknown History gram/118 mL enema (Fleet Enema) carvedilol 25 mg tablet (Coreg) 50 mg PO BID 06/27/24 11/09/24 History clonidine HCl 0.1 mg tablet 0.25 mg PO Q12H hypertensi on 06/27/24 11/08/24 History insulin glargine 100 unit/mL (3 8 unit subcut QPM DM 1 08/28/23 11/08/24 History mL) subcutaneous pen (Lantus Solostar U-100 Insulin) insulin lispro 100 unit/mL 5 unit subcut TID DM 11/09/24 History subcutaneous solution midodrine 10 mg tablet 10 mg PO DAILY PRN hypotensi on 07/05/24 Unknown History Held on 09/10/24. Instructions: Hold while if SBP is more than 110 mmHg before dialysis calcitriol 0.5 mcg capsule 0.5 mcg PO MOWEFR 09/07/24 11/06/24 History apixaban 2.5 mg tablet (Eliquis) 2.5 mg PO BID KIDNEY DISEASE WITH 11/09/24 11/09/24 History HEART FAILURE camphor 4 %-methyl salicylate 30 1 applic topical BID PAIN 11/09/24 11/09/24 His tory %-menthol 10 % topical cream (Bengay Ultra Strength) capsaicin 0.1 % topical cream 1 applic topical DAILY P RN pain 11/09/24 Unknown History (Capsaicin HP) cholecalciferol (vitamin D3) 125 125 mcg PO DAILY MALN UTRITION 11/09/24 11/08/24 History mcg (5,000 unit) capsule duloxetine 30 mg capsule,delayed 60 mg PO QHS major de pressive 11/09/24 11/08/24 History release disorder gabapentin 300 mg capsule 300 mg PO Q12H PAIN 11/09/24 11/08/24 History lidocaine 4 % topical patch 1 patch topical DAILY PRN pain 11/09/24 Unknown History (AsperFlex (lidocaine)) mupirocin 2 % topical ointment 1 applic topical MOWEFR WOUND TX 11/09/24 11/06/24 History vitamin B complex-vitamin C-folic 1 tab PO DAILY RENAL DISEASE 11/09/24 11/08/24 History acid 0.8 mg tablet (Dialyvite 800) Allergy/AdvReac Type Severity Reaction Status Date / Time No Known Allergies Allergy Verified 09/07/24 07:56 Family History Mother Hypertension Diabetes Father Hypertension Diabetes Surgical History History of kidney transplant S/P unilateral above knee amputation S/P foot surgery S/P colostomy Social History housing: penitentiary Smoking Status: Never smoker alcohol intake: never substance use type: does not use ROS ROS ED Constitutional Constitutional ED: Denies chills or fever(s) Eyes Eyes: Reports other Details: Patient blind Cardiovascular Cardiovascular: Denies chest pain Respiratory/Chest Respiratory/Chest: Denies cough or dyspnea Gastrointestinal Gastrointestinal: Denies abdominal pain, nausea or vomiting Genitourinary Genitourinary ED: Reports other Details: Reports minimal urine production associated with end-stage renal disease Musculoskeletal Musculoskeletal: Reports other Details: Right shoulder pain-chronic ; Denies arthralgias Neurologic Neurologic: Reports weakness Psychiatric Psychiatric: Denies anxiety or depression Hematologic/Lymphatic Hematologic/Lymphatic: Reports easy bleeding, easy bruising and other Details: On Eliquis EXAM Physical Exam Const Vital Signs: 11/09/24 09:36 11/09/24 10:35 11/09/24 11:00 Temperature 97 F L 98.9 F Temperature Source Temporal Oral Pulse Rate 77 78 71 Respiratory Rate 18 16 18 Blood Pressure 134/89 H 148/73 H 161/94 H Blood Pressure Mean 104 98 116 Pulse Ox 95 99 Oxygen Delivery Method Room Air Room Air 11/09/24 12:23 11/09/24 13:00 11/09/24 13:51 Temperature 97.8 F Temperature Source Pulse Rate 75 71 78 Respiratory Rate 19 H 22 H 16 Blood Pressure 175/104 H 187/105 H 160/89 H Blood Pressure Mean 127 132 112 Pulse Ox 98 95 Oxygen Delivery Method Positive well nourished and well developed General Appearance ED: well developed and NAD; Negative for pallor HEENT Reports moist mucous membranes Eyes EOMs intact bilaterally Neck supple and no JVD Chest Wall inspection of chest normal and palpation of chest normal Resp normal respiratory effort and clear to auscultation bilaterally Cardio regular rate and regular rhythm GI normal to inspection, nondistended, normoactive bowel sounds and non-tender Extremity Extremity Narrative: Left BKA present Neuro oriented x3 Neuro Narrative: Generally weak and mildly somnolent however when woken up answers questions appropriately. Is able to tell me who his doctors are and what happened today. No focal deficits appreciated. No dysarthria. No facial droop. Sensorium / Orientation: alert Motor Exam: general weakness Psych mental status grossly normal Skin General Skin Exam: Negative for pallor MDM MDM MDM Narrative Medical decision making narrative: Patient evaluated for episode of decreased responsiveness and low blood pressure at dialysis today. He had tensed upper before this happened so there is concerned that he may be had a seizure activity. There was no report of any tonic-clonic movements and the fact that it occurred and associated with his blood pressure going from 170 systolic to 100 systolic I suspect this was more of syncopal episode associated with low blood pressure. He did not complete dialysis. Workup looking for infectious etiology, electrolyte abnormality and CT of the brain as patient had this episode of decreased responsiveness and is anticoagulated is obtained. CBC shows a chronic but stable anemia with a hemoglobin 11.5 but otherwise normal. No leukocytosis. CMP shows elevation of his BUN and creatinine with a mildly low chloride of 94. This is consistent with his end-stage renal disease. Chest x-ray viewed by myself as well as radiology does not show any acute process. CT of the brain does show an acute infarct compared to CT on 04/22/2024 but appears to be subacute versus chronic. There is also chronic mild changes which could be associated with hydrocephalus. I did speak with the patient's gyroscopic instrument tester, Dr. Wallace is concerned that he is not tolerating dialysis with his episodes. He does think the patient needs to return to dialysis for ultrafiltration we cannot get him back to dialysis would need to be observed for further dialysis. His concern is this is either press versus disequilibrium associated with dialysis. We were able to call his dialysis facility and arrange for him to go back today to finish his dialysis. Therefore I do not think he needs admitted to the hospital. I then also spoke with the patient's PCP, Dr. Cespedes about his CT findings and need for outpatient MRI/workup. He is agreeable and will work on this. Notes that the patient is chronically mildly somnolent and it seems that his mentation today is his baseline. Of note urinalysis was not obtained as patient had old appearing urine in his Hurst catheter and does not make much urine she did not want to delay dialysis to obtain urinalysis or send off the sample in the bag which likely would be contaminated. In addition patient is afebrile with normal white blood cell count. Lab Data Attestation: I reviewed the patient's lab results. Labs: Laboratory Results - last 24 hr 11/09/24 10:19 WBC 5.8 RBC 3.76 L Hgb 11.5 L Hct 34.5 L MCV 91.8 MCH 30.6 MCHC 33.3 RDW Std Deviation 47.8 H RDW Coeff of Shanta 14.4 Plt Count 139 L MPV 11.0 Immature Gran % (Auto) 0.300 Neut % (Auto) 61.4 Lymph % (Auto) 20.3 [place] % (Auto) 9.5 Eos % (Auto) 7.8 H Baso % (Auto) 0.7 Absolute Neuts (auto) 3.6 Absolute Lymphs (auto) 1.18 Nucleated RBC % 0 Platelet Estimate ADEQUATE Plt Morphology Comment CLUMPED Sodium 134 Potassium 4.9 Chloride 94 L Carbon Dioxide 27.2 Anion Gap 13 BUN 62 H Creatinine 6.96 H Estim Creat Clear Calc 19.85 L Est GFR (MDRD) Non-Af 10 L BUN/Creatinine Ratio 8.9 L Glucose 145 H Calcium 9.2 Total Bilirubin 0.64 AST 24 ALT 21 Alkaline Phosphatase 204 H Total Protein 9.2 H Albumin 3.6 Globulin 5.6 H Albumin/Globulin Ratio 0.6 L Radiography Chest X-Ray - ED: 1 View, Read by ED Physician, Read by Radiologist and No Acute Disease Diagnostic Testing: Clinical Impression(s) from Imaging Studies Brain CT 11/09/24 10:29 IMPRESSION: 1. A small infarct in the periventricular RIGHT frontal centrum semiovale is new from 04/22/2024 but subacute to chronic in appearance. No definite or visible acute appearing infarct. If there is persistent concern, consider MRI. 2. 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 Given this constellation, obstructive hydrocephalus is favored, however again chronic. Note this places the patient at risk for future episodes of acute hydrocephalus and for that reason neurosurgical consultation is recommended. Additionally, correlate for clinical evidence of background communicating/normal pressure hydrocephalus which may appear similarly. 3. Mild/moderate paranasal sinus disease and similar bilateral mastoid effusions. Correlate for clinical evidence of mastoiditis. 4. Similar abnormal appearance of the LEFT globe which may be postoperative. Correlate with medical/surgical history. 5. Additional description as above. Reading Location: [facility] Chest X-Ray 11/09/24 11:03 IMPRESSION: Stable right hemidiaphragm elevation. Lungs appear clear of acute disease. No pleural effusion or pneumothorax is noted. The cardiomediastinal silhouette is unchanged. No evidence of pulmonary edema. No acute osseous changes evident. No evidence of acute cardiopulmonary disease. Reading Location: [facility] Rhythm Strip Rhythm Strip: Sinus Rhythm Rate: 75 Ectopy: None EKG Initial EKG: Attestation: I personally reviewed and interpreted this EKG as follows: Interpretation: Sinus Rhythm Comments: Normal sinus rhythm rate of 75 bpm Normal axis Normal intervals Normal ST segments Compared to prior EKG on 10/04/2024, QT/QTc was slightly more prolonged Management Discussion w/another healthcare provider: Underground Drill Operator and PCP Discharge Plan Triage Chief Complaint: Seizure ED Provider: Viv Hernandez Dx/Rx/DC Orders Clinical Impression: Altered awareness, transient, 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 disease, 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 Instructions: ED ALOC Prescriptions: No Action atorvastatin 40 mg Tablet 40 mg PO QHS acetaminophen 325 mg Tablet 650 mg PO Q4H PRN (Reason: PAIN/FEVER) ascorbic acid (vitamin C) 500 mg Tablet 500 mg PO QHS bisacodyl 10 mg Suppository 10 mg RI DAILY PRN (Reason: CONSTIPATION ) dextrose [Glucose Gel] 40 % Gel 15 g PO Q15M PRN (Reason: HYPGLYCEMIA ) Rx Instructions: until symptoms of low blood sugar are controlled pantoprazole 40 mg Tablet,Delayed Release (Dr/Ec) 40 mg PO DAILY tacrolimus [Prograf] 1 mg Capsule 2 mg PO Q12H ondansetron HCl 4 mg Tablet 4 mg PO Q8H PRN (Reason: NAUSEA/VOMITING ) Senna Plus 8.6-50 mg Capsule 1 tab-cap PO BID sevelamer HCl 800 mg tablet 2,400 mg PO TIDCM Rx Instructions: must administer with a meal/food levothyroxine 150 mcg tablet 150 mcg PO DAILY@0600 acetaminophen 650 mg suppository 650 mg RI Q4H PRN (Reason: PAIN/FEVER) magnesium hydroxide [Milk of Magnesia] 400 mg/5 mL suspension 30 ml PO DAILY PRN (Reason: CONSTIPATION ) Benadryl Extra Strength 2-0.1 % cream 1 applic topical Q6H PRN (Reason: ITCHING ) ciclopirox 8 % solution 1 applic topical QHS Rx Instructions: APPLY ONE APPLICATION TOPICALLY TO RIGHT THUMB AT BEDTIME FOR NAIL FUNGUS insulin lispro 100 unit/mL insulin pen 1 sliding scale dose subcut TIDCM Protocol: 6. Sliding Scale Insulin Custom Condition: 180-200 mg/dl range Dose/Route: 2 Number of Units Condition: 201-250 Dose/Route: 3 Condition: 251-300 Dose/Route: 4 Condition: 301-350 Dose/Route: 5 Condition: 351-400 Dose/Route: 6 Condition: 401-450 Dose/Route: 7 Condition: >451 Dose/Route: call MD Protocol Text: Custom Sliding Scale guaifenesin [Adult Tussin Chest Congestion] 100 mg/5 mL liquid 200 mg PO Q4H PRN (Reason: COUGH/CONGESTION ) Fleet Enema 19-7 gram/118 mL enema 118 ml RI DAILY PRN (Reason: constipation) clonidine HCl 0.1 mg tablet 0.25 mg PO Q12H Rx Instructions: hold if bp is less than 100/60 carvedilol [Coreg] 25 mg tablet 50 mg PO BID Rx Instructions: must administer with a meal/food insulin lispro 100 unit/mL solution 5 unit subcut TID Rx Instructions: HOLD FOR BS LESS THAN 120 insulin glargine [Lantus Solostar U-100 Insulin] 100 unit/mL (3 mL) insulin pen 8 unit subcut QPM Rx Instructions: afternoon midodrine 10 mg tablet 10 mg PO DAILY PRN (Reason: hypotension) Rx Instructions: BEFORE DIALYSIS aluminum-magnesium hydroxide 200-200 mg/5 mL suspension 30 ml PO Q4H PRN (Reason: GI DISTRESS ) glucagon HCl [Glucagon (HCl) Emergency Kit] 1 mg recon soln 1 mg IM Q20M PRN (Reason: HYPOGLYCEMIA ) polyethylene glycol 3350 [Miralax] 17 gram/dose powder 17 g PO Q24H PRN (Reason: CONSTIPATION ) melatonin 3 mg Tablet 9 mg PO Q24H PRN (Reason: INSOMNIA ) hydralazine 50 mg Tablet 50 mg PO TID calcitriol 0.5 mcg capsule 0.5 mcg PO MOWEFR duloxetine 30 mg capsule,delayed release(DR/EC) 60 mg PO QHS mupirocin 2 % ointment 1 applic topical MOWEFR Dialyvite 800 0.8 mg tablet 1 tab PO DAILY Rx Instructions: PM cholecalciferol (vitamin D3) 125 mcg (5,000 unit) capsule 125 mcg PO DAILY Eliquis 2.5 mg tablet 2.5 mg PO BID gabapentin 300 mg capsule 300 mg PO Q12H Bengay Ultra Strength 4-30-10 % cream 1 applic topical BID capsaicin [Capsaicin HP] 0.1 % cream 1 applic topical DAILY PRN (Reason: pain) Rx Instructions: do not wash area for at least 30 min after application lidocaine [AsperFlex (lidocaine)] 4 % adhesive patch,medicated 1 patch topical DAILY PRN (Reason: pain) Primary Care Provider: Vanessa Hutchins Referrals: Vanessa Hutchins MD [Primary Care Provider] - Marco A Cespedes DO [Non-Staff] - Activity Restrictions/Additional Instructions: We will discharge you to go to hemodialysis for ultrafiltration after discussion with Dr. Wallace. You will need continued outpatient follow-up with Dr. Cespedes for some chronic appearing abnormalities on the CT of your brain. Suspect dialysis cause low blood pressure which caused the mental status change today. Print Language: Czech Disposition Disposition: Home, Self Care Discharge Date/Time: 11/09/24 13:58
[2024-11-09 10:31] LABS: Absolute Lymphocyte Count 1.18 X10^3/uL (0.83-4.51); Absolute Neutrophil Count 3.6 X10^3/uL (2.0-7.7); Basophil# 0.04 X10^3/uL; Basophil% 0.7 % (0-1); Eosinophil# 0.45 X10^3/uL; Eosinophils% 7.8 % (0-5); Hematocrit 34.5 % (40-54); Hemoglobin 11.5 g/dL (13.0-16.5); Lymphocyte # 1.18 X10^3/ul (0.83-4.51); Lymphocyte % 20.3 % (19-41); Mean Corp Hgb Conc 33.3 g/dL (32-36); Mean Corpuscular Hgb 30.6 pg (27.0-32.0); Mean Corpuscular Volume 91.8 fL (80-94); Monocyte# 0.55 X10^3/uL; Monocyte% 9.5 % (0-10); NRBC Flagged by Analyzer 0 % (0-5); Neutrophil # 3.56 X10^3/uL (2.7-7.7); Neutrophil % 61.4 % (47-70); POSITIVE COUNT YES; Platelet Count 139 K/mm3 (150-450); RBC Distribution Width CV 14.4 % (11.6-14.6); RBC Distribution Width SD 47.8 fl (35.1-43.9); Red Blood Count 3.76 M/mm3 (4.6-6.2); White Blood Count 5.8 K/mm3 (4.4-11.0)
[2024-11-09 10:35] VITALS: BP 148/73; PULSE 78; RESP 16
[2024-11-09 10:46] LABS: Differential Indicated SCAN CRITERIA MET
[2024-11-09 11:00] VITALS: BP 161/94; PULSE 71; RESP 18; TEMP 37.2; O2SAT 99
--- NOTE | 2024-11-09 11:03 | RAD_ITS ---
PROCEDURE: CHEST 1 VIEW (PORTABLE) 11/09/2024 REASON FOR EXAM: SYNCOPE TECHNIQUE: AP portable upright chest. COMPARISON: Chest x-ray of 09/07/2024. RAD/Chest 1 View (Portable) IMPRESSION: Stable right hemidiaphragm elevation. Lungs appear clear of acute disease. No pleural effusion or pneumothorax is noted. The cardiomediastinal silhouette is unchanged. No evidence of pulmonary edema. No acute osseous changes evident. No evidence of acute cardiopulmonary disease. Reading Location: [place] [id number]
[2024-11-09 11:18] LABS: ALB/GLOB Ratio 0.6 RATIO (0.9-2.4); AST(SGOT) 24 U/L (<=37); Alanine Aminotransfer ALT/SGPT 21 U/L (<=46); Albumin, Serum 3.6 g/dL (3.5-5.0); Alkaline Phosphatase 204 U/L (40-129); Anion Gap 13 (5-15); BUN 62 mg/dL (4-19); BUN/Creat Ratio 8.9 RATIO (10-20); Calcium,Total 9.2 mg/dL (7.6-11.0); Carbon Dioxide 27.2 mmol/L (21.0-32.0); Chloride 94 mmol/L (98-108); Creatinine, Serum 6.96 mg/dL (0.70-1.20); EST Glomerular Filtration Rate 10 (>60); Estimated Creatinine Clearance 19.85 ml/min (50-250); Globulin 5.6 g/dL (2.2-4.2); Glucose 145 mg/dL (70-99); Potassium 4.9 mmol/L (3.3-5.1); Protein, Total 9.2 g/dL (5.9-8.4); Sodium Level 134 mmol/L (133-145); Total Bilirubin 0.64 mg/dL (0.00-1.30)
[2024-11-09 11:41] LABS: Platelet Estimate ADEQUATE (ADEQ); Platelet Morphology CLUMPED
[2024-11-09 12:23] VITALS: BP 175/104; PULSE 75; RESP 19
[2024-11-09 13:00] VITALS: BP 187/105; PULSE 71; RESP 22; O2SAT 98
--- NOTE | 2024-11-09 13:28 | PCA ---
CALLED [facility] AND THEY CAN TAKE HIM TO FINISH HIS TREATMENT. PHYSICIANS WILL BE HERE @ 0045 TO PICK HIM UP.
[2024-11-09 13:51] VITALS: BP 160/89; PULSE 78; RESP 16; TEMP 36.6; O2SAT 95
== END 2024-11-09 13:58 | disposition home or self-care (01) ==
PROVIDERS: Emergency Provider Emergency Medicine; PCP Internal Medicine; Visit Provider Emergency Medicine
DX: R40.4 Transient alteration of awareness (principal); I12.0 Hypertensive chronic kidney disease with stage 5 chronic kidney disease or end stage renal disease; N18.6 End stage renal disease; Z89.512 Acquired absence of left leg below knee; Z79.4 Long term (current) use of insulin; E11.22 Type 2 diabetes mellitus with diabetic chronic kidney disease; Z99.2 Dependence on renal dialysis; M25.511 Pain in right shoulder; G89.29 Other chronic pain; E03.9 Hypothyroidism, unspecified; E78.5 Hyperlipidemia, unspecified; D64.9 Anemia, unspecified; Z79.01 Long term (current) use of 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; Z79.899 Other long term (current) drug therapy; Z79.890 Hormone replacement therapy
CPT/HCPCS: 70450; 71045; 80053; 85025; 93005; 99285; A4216

== ENCOUNTER → 2024-12-01 05:00 | Outpatient (REF) | payer MEDICARE, MEDICAID, SELFPAY ==
[2024-12-01 08:16] LABS: Hematocrit 34.9 % (40-54); Hemoglobin 11.2 g/dL (13.0-16.5); Mean Corp Hgb Conc 32.1 g/dL (32-36); Mean Corpuscular Hgb 30.9 pg (27.0-32.0); Mean Corpuscular Volume 96.4 fL (80-94); Mean Platelet Vol. 11.3 fl (6.2-12.0); Platelet Count 161 K/mm3 (150-450); RBC Distribution Width CV 14.9 % (11.6-14.6); Red Blood Count 3.62 M/mm3 (4.6-6.2); White Blood Count 6.9 K/mm3 (4.4-11.0)
[2024-12-01 08:39] LABS: ALB/GLOB Ratio 0.8 RATIO (0.9-2.4); AST(SGOT) 20 U/L (<=37); Alanine Aminotransfer ALT/SGPT 19 U/L (<=46); Albumin, Serum 3.6 g/dL (3.5-5.0); Alkaline Phosphatase 210 U/L (40-129); Anion Gap 13 (5-15); BUN 67 mg/dL (4-19); BUN/Creat Ratio 8.7 RATIO (10-20); Calcium,Total 9.1 mg/dL (7.6-11.0); Carbon Dioxide 28.1 mmol/L (21.0-32.0); Chloride 96 mmol/L (98-108); EST Glomerular Filtration Rate 9 (>60); Globulin 4.8 g/dL (2.2-4.2); Glucose 181 mg/dL (70-99); Potassium 5.2 mmol/L (3.3-5.1); Protein, Total 8.4 g/dL (5.9-8.4); Sodium Level 137 mmol/L (133-145); Total Bilirubin 0.51 mg/dL (0.00-1.30)
[2024-12-01 11:02] LABS: Hemoglobin A1c 7.2 % (<=5.6)
== END ==
LOC: OLS.SW 05:00
PROVIDERS: PCP Internal Medicine; Visit Provider Family Medicine
DX: E11.9 Type 2 diabetes mellitus without complications (principal)
CPT/HCPCS: 36415; 80053; 83036; 85027

== ENCOUNTER 2025-03-01 19:22 | Inpatient (IN) | payer MEDICARE, MEDICAID, SELFPAY ==
[2025-03-01] VITALS (8 sets, daily range): BP systolic 109–160; BP diastolic 40–60; PULSE 91–95; RESP 16–18; TEMP 37.3–38.3; O2SAT 93–99; BMI 40.2; BMI 39.4
--- NOTE | 2025-03-01 20:16 | EX.ED.DYSGE1 ---
HPI History of Present Illness Chief Complaint: Fever Informant: patient Narrative Narrative: Sent in from [facility] reported fever today. Patient dialysis Fridays. He received dialysis today. He did not feel similar for 2 years. Suprapubic cath for last year. He has his bag emptied 2 times a day. He denies cough. Denies having symptoms of fever or chills. Denies abdominal pain vomiting or diarrhea. Suprapubic cath was exchanged yesterday. He states his temperature was checked during his normal vitals stated was 102 forehead. No medications were given. Chronic wound to his right foot being followed by wound care. Previous left BKA. He is on Eliquis for history of blood clots. 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 Acute hyperkalemia Acute alteration in mental status Phantom limb syndrome with pain Paraplegia Metabolic encephalopathy ESRD (end stage renal disease) on dialysis Hx of pulmonary embolus Type 2 diabetes mellitus End-stage renal disease on hemodialysis Anticoagulant long-term use History of deep vein thrombosis Anemia in chronic kidney disease, on chronic dialysis Acute postoperative pain [facility] (current) use of 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 H/O deep venous thrombosis Osteomyelitis of pelvic region Lives in longterm Anxiety Open wound Insulin dependent diabetes mellitus Uses wheelchair Injury of back Non-healing wound of amputation stump DM type 2, goal HbA1c < 7% 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 disease 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, stage 4 Neurogenic bowel Chronic kidney disease with end stage renal failure on dialysis Kidney transplant failure Dependence on renal dialysis Pressure ulcer of left heel, unspecified stage Gastro-esophageal reflux disease without esophagitis Other pericardial effusion (noninflammatory) Other pulmonary embolism without acute cor pulmonale Hypertensive heart and chronic kidney disease with heart failure and stage 1 through stage 4 chronic kidney disease, or unspecified chronic kidney disease Depression Hyperlipemia Hypothyroidism Anemia in chronic kidney disease Neuromuscular dysfunction of bladder, unspecified Paraplegia, incomplete Other acute osteomyelitis, left ankle and foot End stage renal disease Home Medications ?Medication ?Instructions ?Recorded ?Last Taken ?Type dextrose 40 % oral gel (Glucose 15 g PO Q15M PRN HYPGLYCEMIA 01/02/23 Unknown History Gel) sennosides 8.6 mg-docusate sodium 1 tab-cap PO BID CONSTIPATION 01/02/23 11/09/24 History 50 mg capsule (Senna Plus) tacrolimus 1 mg capsule, 2 mg PO Q12H IMMUNOSUPPRESIVE 01/02/23 11/09/24 History immediate-release (Prograf) sevelamer HCl 800 mg tablet 2,400 mg PO TIDCM ESRD 04/21/23 11/09/24 History insulin lispro 100 unit/mL 1 sliding scale dose subcut TIDCM 03/22/24 11/09/24 History subcutaneous pen guaifenesin 100 mg/5 mL oral 200 mg PO Q4H PRN COUGH/CONGESTION 03/29/24 Unknown History liquid (Adult Tussin Chest Congestion) glucagon HCl 1 mg solution for 1 mg IM Q20M PRN HYPOGLYCEMIA 04/13/24 Unknown History injection (Glucagon (HCl) Emergency Kit) hydralazine 50 mg tablet 50 mg PO TID BLOOD PRESSURE 04/13/24 11/09/24 History sodium phosphates 19 gram-7 118 ml [place] DAILY PRN constipation 04/22/24 Unknown History gram/118 mL enema (Fleet Enema) insulin glargine 100 unit/mL (3 8 unit subcut QPM DM 06/27/24 11/08/24 History mL) subcutaneous pen (Lantus Solostar U-100 Insulin) insulin lispro 100 unit/mL 5 unit subcut TID DM 06/27/24 11/09/24 History subcutaneous solution apixaban 2.5 mg tablet (Eliquis) 2.5 mg PO BID KIDNEY DISEASE WITH 11/09/24 11/09/24 History HEART FAILURE cholecalciferol (vitamin D3) 125 125 mcg PO DAILY MALNUTRITION 11/09/24 11/08/24 History mcg (5,000 unit) capsule duloxetine 30 mg capsule,delayed 60 mg PO QHS major depressive 11/09/24 11/08/24 History release disorder gabapentin 300 mg capsule 300 mg PO Q12H PAIN 11/09/24 11/08/24 History mupirocin 2 % topical ointment 1 applic topical MOWEFR WOUND [place] 11/09/24 11/06/24 History clonidine HCl 0.2 mg tablet mg PO 02/19/25 Unknown History B [id number]-G-[id number] acid-Zn tablet 1 tab PO DAILY 03/01/25 Unknown History atorvastatin 40 mg tablet 40 mg PO DAILY 03/01/25 Unknown History calcitriol 0.5 mcg capsule 0.5 mcg PO MOWEFR 03/01/25 Unknown History carvedilol 25 mg tablet 50 mg PO BID 03/01/25 Unknown History duloxetine 60 mg capsule,delayed 60 mg PO QHS 03/01/25 Unknown History release ivermectin 1 % topical cream applic topical QHS 03/01/25 Unknown History levothyroxine 150 mcg tablet 150 mcg PO DAILY 03/01/25 Unknown History melatonin 3 mg capsule 9 mg PO QHS 03/01/25 Unknown History metronidazole 1 % topical gel 1 applic topical DAILY 03/01/25 Unknown History midodrine 10 mg tablet 10 mg PO DAILY PRN hypotension 03/01/25 Unknown History ondansetron HCl 4 mg tablet 4 mg PO Q8H PRN PRN nausea and 03/01/25 Unknown History vomiting pantoprazole 40 mg tablet,delayed 40 mg PO DAILY 03/01/25 Unknown History release Allergy/AdvReac Type Severity Reaction Status Date / Time No Known Allergies Allergy Verified 02/19/25 14:26 Family History Mother Hypertension Diabetes Father Hypertension Diabetes Surgical History History of kidney transplant S/P unilateral above knee amputation S/P foot surgery S/P colostomy Social History housing: longterm Smoking Status: Never smoker alcohol intake: never substance use type: does not use ROS ROS ED Constitutional Constitutional ED: Denies chills, fever(s) or sweats ENT ENT ED: Denies sore throat Cardiovascular Cardiovascular: Denies chest pain, leg edema, palpitations or racing heartbeat Respiratory/Chest Respiratory/Chest: Denies cough, dyspnea or dyspnea on exertion Gastrointestinal Gastrointestinal: Denies abdominal pain, diarrhea, nausea or vomiting Genitourinary Genitourinary ED: Denies dysuria, hematuria or urinary frequency Musculoskeletal Musculoskeletal: Denies back pain, extremity pain or neck pain Integumentary Denies rash or wounds Neurologic Neurologic: Denies headache(s), paresthesias or weakness EXAM Physical Exam Const Vital Signs: 03/01/25 19:24 03/01/25 19:24 03/01/25 19:28 Temperature 100.0 F H 100.0 F H 100.0 F H Temperature Source Oral Oral Oral Pulse Rate 95 95 95 Respiratory Rate 16 18 18 Respiratory Effort Respiratory Pattern Blood Pressure 154/54 H 154/54 H 154/54 H Blood Pressure Mean 87 87 87 Pulse Ox 93 93 93 Oxygen Delivery Method Nasal Cannula Nasal Cannula Nasal Cannula Oxygen Flow Rate (L/min) 2 2 2 03/01/25 20:28 03/01/25 20:35 03/01/25 21:23 Temperature 100.1 F H 99.1 F Temperature Source Oral Oral Pulse Rate 95 92 Respiratory Rate 18 16 Respiratory Effort Normal Respiratory Pattern Normal Blood Pressure 142/53 H 142/53 H Blood Pressure Mean 82 82 Pulse Ox 94 95 Oxygen Delivery Method Nasal Cannula Oxygen Flow Rate (L/min) 2 03/01/25 22:00 Temperature 101 F H Temperature Source Axillary Pulse Rate 94 Respiratory Rate 18 Respiratory Effort Respiratory Pattern Blood Pressure 160/57 H Blood Pressure Mean 91 Pulse Ox 94 Oxygen Delivery Method Nasal Cannula Oxygen Flow Rate (L/min) 2 Positive well nourished and well developed Constitutional Narrative: Chronic 2 L nasal cannula. General Appearance ED: well developed and NAD HEENT Reports moist mucous membranes normocephalic and atraumatic Eyes General Eye ED: Yes normal appearance of both eyes Neck full ROM Chest Wall Chest: Negative for tenderness Resp normal respiratory effort and normal air movement Effort and Inspection: symmetric chest movement; Negative for respiratory distress Cardio regular rate, regular rhythm and no murmurs Peripheral Pulses: pulses 2+ throughout GI normal to inspection, nondistended, normoactive bowel sounds and non-tender GI Narrative: Suprapubic cath Hurst noted bloody urine in the tube. Left lower lobe colostomy firm stools palpated in the bag. Palpation: Negative for guarding or rebound tenderness present Extremity Extremity Narrative: Right lower extremity: Dressing dorsal foot, removed there is a nickel sized wound dorsal distal first metatarsal with good granulation tissues, no drainage no surrounding erythema. Left lower extremity: BKA distal tibia, no erythema. Left upper extremity forearm fistula with positive thrill dressings clean, dry, intact from dialysis. General Extremety ED: Negative for edema or tenderness General Extremity: Negative for edema Neuro oriented x3 and no sensory deficits noted Sensorium / Orientation: awake and alert Skin Skin Narrative: See above Sepsis Attestation Sepsis Alert: Yes Sepsis Attestation: Sepsis Ruled Out MDM MDM MDM Narrative Medical decision making narrative: Interventions / MDM: Differential diagnosis: Fever, UTI, leukocytosis, history of ESBL, end-stage renal disease on hemodialysis, renal transplant recipient on Prograf Diagnosis considered but do not suspect: Sepsis however normal lactic acid not hypotensive. Chronically elevated creatinine with his end-stage renal disease. No cough or concerns for pneumonia. My EKG interpretation: N/A Imaging independently reviewed and interpreted by myself: N/A External documents reviewed: History of ESBL bacteremia Test considered but not ordered:N/A ED course: Patient temp of 100 on arrival pulse is 95. Blood pressure stable at 154/54. He denies feeling feverish. Denies cough. Suprapubic cath exchanged yesterday is labs new leukocytosis of 22. Bloody. No belly pain no chills. Sepsis labs ordered, urine and urine culture. COVID flu and RSV. 2205: Elevated BUN/creatinine however dialysis patient. Potassium normal at 5. Lactic acid negative. COVID flu and RSV negative. Urine notes signs of infection culture pending urine and blood. Reviewing records he has had a history of ESBL bacteremia. With fever and leukocytosis, he is covered with meropenem. Will discuss with hospitalist for admission. I spoke with Dr. Ca for admission to the medical floor. Re-evaluation: stable Disposition discussed with patient/family/significant other: Patient Case discussed with consulting clinician: Hospitalist This note was generated with NoiseFree dictation software. It may contain incorrect words, spelling, and punctuation that were not noted in checking the note before signing. Lab Data Attestation: I reviewed the patient's lab results. Labs: Laboratory Results - last 24 hr 03/01/25 03/01/25 20:37 20:45 WBC 22.0 H RBC 3.01 L Hgb 9.7 L Hct 29.6 L MCV 98.3 H MCH 32.2 H MCHC 32.8 RDW Std Deviation 50.4 H RDW Coeff of Shanta 14.2 Plt Count 135 L MPV 10.9 Immature Gran % (Auto) 0.700 Neut % (Auto) 82.9 H Lymph % (Auto) 8.2 L [place] % (Auto) 6.4 Eos % (Auto) 1.5 Baso % (Auto) 0.3 Absolute Neuts (auto) 18.2 H Absolute Lymphs (auto) 1.80 Nucleated RBC % 0 PT 19.3 H INR 1.6 APTT 40.7 H Sodium 137 Potassium 5.0 Chloride 94 L Carbon Dioxide 29.1 Anion Gap 14 BUN 39 H Creatinine 7.08 H Estim Creat Clear Calc 20.87 L Est GFR (MDRD) Non-Af 9 L BUN/Creatinine Ratio 5.4 L Glucose 103 H Lactic Acid < 1.0 Calcium 9.3 Total Bilirubin 0.71 AST 16 ALT 14 Alkaline Phosphatase 183 H Total Protein 8.3 Albumin 3.4 L Globulin 4.9 H Albumin/Globulin Ratio 0.7 L Urine Color Red Urine Clarity Turbid Urine pH 8.0 Ur Specific [place] 1.015 Urine Protein 500 H Urine Glucose (UA) Normal Urine Ketones Negative Urine Occult Blood 250 H Urine Nitrite Negative Urine Bilirubin Negative Urine Urobilinogen Normal Ur Leukocyte Esterase 25 H Urine RBC > 100 SEEN Urine WBC >100 SEEN Ur Squamous Epith Cells 0-5 SEEN Urine Bacteria 1+ Urine Mucus 0 SEEN Discharge Plan Dx/Rx/DC Orders Clinical Impression: Fever, Leukocytosis, Chronic kidney disease with end stage renal failure on dialysis, 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 coli infection Disposition Disposition: [facility]
[2025-03-01 20:48] LABS: Mucous, Urine 0 SEEN /hpf (<or=2+)
[2025-03-01 20:50] LABS: Color, Urine Red (Yellow); Glucose, Dipstick Normal (Normal); Ketone-Dipstick Negative (Negative); Leukocyte Esterase-Dipstick 25 /ul (Negative); Nitrite-Dipstick Negative (Negative); Occult Blood-Urine 250 /ul (Negative); Protein-Dipstick 500 mg/dl (Negative); Specific Gravity, Urine 1.015 (1.002-1.030); Urine Bilirubin Dipstick Negative (Negative)
[2025-03-01 20:58] LABS: Hematocrit 29.6 % (40-54); Hemoglobin 9.7 g/dL (13.0-16.5); Immature Granulocytes Count 0.150 X10^3/uL (0.0-0.0); Mean Corp Hgb Conc 32.8 g/dL (32-36); Mean Corpuscular Volume 98.3 fL (80-94); Mean Platelet Vol. 10.9 fl (6.2-12.0); NRBC Flagged by Analyzer 0 % (0-5); Platelet Count 135 K/mm3 (150-450); RBC Distribution Width CV 14.2 % (11.6-14.6); RBC Distribution Width SD 50.4 fl (35.1-43.9); Red Blood Count 3.01 M/mm3 (4.6-6.2); White Blood Count 22.0 K/mm3 (4.4-11.0)
[2025-03-01 21:09] LABS: Prothrombin Time (Protime)PT. 19.3 SECONDS (11.7-14.9)
[2025-03-01 21:10] LABS: Partial Thromboplast Time 40.7 Seconds (24.1-36.2)
[2025-03-01 21:32] LABS: AST(SGOT) 16 U/L (<=37); Alanine Aminotransfer ALT/SGPT 14 U/L (<=46); Albumin, Serum 3.4 g/dL (3.5-5.0); Alkaline Phosphatase 183 U/L (40-129); Anion Gap 14 (5-15); BUN 39 mg/dL (4-19); BUN/Creat Ratio 5.4 RATIO (10-20); Calcium,Total 9.3 mg/dL (7.6-11.0); Carbon Dioxide 29.1 mmol/L (21.0-32.0); Chloride 94 mmol/L (98-108); Estimated Creatinine Clearance 20.87 ml/min (50-250); Globulin 4.9 g/dL (2.2-4.2); Glucose 103 mg/dL (70-99); Potassium 5.0 mmol/L (3.3-5.1)
[2025-03-01 21:42] LABS: Red Blood Cells-Urine > 100 SEEN /hpf (0-5)
[2025-03-01 21:44] LABS: Squamous Epithelial Cells - UA 0-5 SEEN /hpf (0-5)
[2025-03-01] MEDS: Meropenem 1 GM in 0.9% Normal Saline (100mL MB+) 100 ML IV (22:42)
--- NOTE | 2025-03-01 22:57 | PCM.HP.STD ---
[facility] - General General Date of Admission: 03/01/25 Date of Service: 03/01/25 Chief Complaint: Febrile illness HPI Narrative CHINA GUILLEN, is a 39 M who presents to the emergency room with chief complaint of febrile illness. Patient has significant past medical history of diabetes and end-stage renal disease and receives dialysis Saturday, Saturday and Fridays and did receive dialysis earlier today. Patient states he has had a suprapubic catheter for the past year and does have the bag emptied twice daily at the nursing facility. Patient denies cough and abdominal pain, nausea vomiting or diarrhea. Patient has had fevers and chills. Suprapubic catheter was changed yesterday but he did have a temperature of 102 yesterday. Patient does have a chronic minor wound to his right foot which is being managed by wound care and has a previous left below the knee amputation and is on Eliquis for history of blood clots. His last urine culture obtained here showed extended spectrum beta-lactamase resistant infection and therefore admission was requested to treat presumed recurrent infection of the urinary tract. Laboratory studies show white blood cell count of 22,000, hemoglobin 9.7, hematocrit 29.6, platelets 135, sodium 137, potassium 5.0, chloride 94, bicarb 29, BUN 39, creatinine 7.08, glucose 103, urinalysis positive for blood, protein, leukocyte esterase, 1+ bacteria. Patient will be admitted to general medical floor started on meropenem for suspected ESBL infection and consult to infectious disease Dr. Medeiros who has seen this patient previously. 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 Acute hyperkalemia Acute alteration in mental status Phantom limb syndrome with pain Paraplegia Metabolic encephalopathy ESRD (end stage renal disease) on dialysis Hx of pulmonary embolus Type 2 diabetes mellitus End-stage renal disease on hemodialysis Anticoagulant long-term use History of deep vein thrombosis Anemia in chronic kidney disease, on chronic dialysis Acute postoperative pain senior care (current) use of 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 H/O deep venous thrombosis Osteomyelitis of pelvic region Lives in [facility] Anxiety Open wound Insulin dependent diabetes mellitus Uses wheelchair Injury of back Non-healing wound of amputation stump DM type 2, goal HbA1c < 7% 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 disease 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, stage 4 Neurogenic bowel Chronic kidney disease with end stage renal failure on dialysis Kidney transplant failure Dependence on renal dialysis Pressure ulcer of left heel, unspecified stage Gastro-esophageal reflux disease without esophagitis Other pericardial effusion (noninflammatory) Other pulmonary embolism without acute cor pulmonale Hypertensive heart and chronic kidney disease with heart failure and stage 1 through stage 4 chronic kidney disease, or unspecified chronic kidney disease Depression Hyperlipemia Hypothyroidism Anemia in chronic kidney disease Neuromuscular dysfunction of bladder, unspecified Paraplegia, incomplete Other acute osteomyelitis, left ankle and foot End stage renal disease Home Medications ?Medication ?Instructions ?Recorded ?Last Taken ?Type dextrose 40 % oral gel (Glucose 15 g PO Q15M PRN HYPGLYCEMIA 01/02/23 Unknown History Gel) sennosides 8.6 mg-docusate sodium 1 tab-cap PO BID CONSTIPATION 01/02/23 11/09/24 History 50 mg capsule (Senna Plus) tacrolimus 1 mg capsule, 2 mg PO Q12H IMMUNOSUPPRESIVE 01/02/23 11/09/24 History immediate-release (Prograf) sevelamer HCl 800 mg tablet 2,400 mg PO TIDCM ESRD 04/21/23 11/09/24 History insulin lispro 100 unit/mL 1 sliding scale dose subcut TIDCM 03/22/24 11/09/24 History subcutaneous pen guaifenesin 100 mg/5 mL oral 200 mg PO Q4H PRN COUGH/CONGESTION 03/29/24 Unknown History liquid (Adult Tussin Chest Congestion) glucagon HCl 1 mg solution for 1 mg IM Q20M PRN HYPOGLYCEMIA 04/13/24 Unknown History injection (Glucagon (HCl) Emergency Kit) hydralazine 50 mg tablet 50 mg PO TID BLOOD PRESSURE 04/13/24 11/09/24 History sodium phosphates 19 gram-7 118 ml [place] DAILY PRN constipation 04/22/24 Unknown History gram/118 mL enema (Fleet Enema) insulin glargine 100 unit/mL (3 8 unit subcut QPM DM 06/27/24 11/08/24 History mL) subcutaneous pen (Lantus Solostar U-100 Insulin) insulin lispro 100 unit/mL 5 unit subcut TID DM 06/27/24 11/09/24 History subcutaneous solution apixaban 2.5 mg tablet (Eliquis) 2.5 mg PO BID KIDNEY DISEASE WITH 11/09/24 11/09/24 History HEART FAILURE cholecalciferol (vitamin D3) 125 125 mcg PO DAILY MALNUTRITION 11/09/24 11/08/24 History mcg (5,000 unit) capsule duloxetine 30 mg capsule,delayed 60 mg PO QHS major depressive 11/09/24 11/08/24 History release disorder gabapentin 300 mg capsule 300 mg PO BID PAIN 11/09/24 11/08/24 History mupirocin 2 % topical ointment 1 applic topical MOWEFR WOUND TX 11/09/24 11/06/24 History clonidine HCl 0.2 mg tablet 0.2 mg PO BID 02/19/25 Unknown History B [id number] acid-Zn tablet 1 tab PO DAILY 03/01/25 Unknown History atorvastatin 40 mg tablet 40 mg PO DAILY 03/01/25 Unknown History calcitriol 0.5 mcg capsule 0.5 mcg PO MOWEFR 03/01/25 Unknown History carvedilol 25 mg tablet 50 mg PO BID 03/01/25 Unknown History duloxetine 60 mg capsule,delayed 60 mg PO QHS 03/01/25 Unknown History release ivermectin 1 % topical cream applic topical QHS 03/01/25 Unknown History levothyroxine 150 mcg tablet 150 mcg PO DAILY 03/01/25 Unknown History melatonin 3 mg capsule 9 mg PO QHS 03/01/25 Unknown History metronidazole 1 % topical gel 1 applic topical DAILY 03/01/25 Unknown History midodrine 10 mg tablet 10 mg PO DAILY PRN hypotension 03/01/25 Unknown History ondansetron HCl 4 mg tablet 4 mg PO Q8H PRN PRN nausea and 03/01/25 Unknown History vomiting pantoprazole 40 mg tablet,delayed 40 mg PO DAILY 03/01/25 Unknown History release Allergy/AdvReac Type Severity Reaction Status Date / Time No Known Allergies Allergy Verified 02/19/25 14:26 Family History Mother Hypertension Diabetes Father Hypertension Diabetes Surgical History History of kidney transplant S/P unilateral above knee amputation S/P foot surgery S/P colostomy Social History housing: [facility] Smoking Status: Never smoker alcohol intake: never substance use type: does not use ROS Constitutional Constitutional: Reports chills and fever(s) Eyes Eyes: Denies blurry vision ENT HEENT: Denies abnormal hearing Cardiovascular Cardiovascular: Denies chest pain Respiratory/Chest Respiratory/Chest: Denies cough or shortness of breath at rest Gastrointestinal Gastrointestinal: Denies abdominal pain Genitourinary Genitourinary: Denies dysuria Musculoskeletal Musculoskeletal: Denies back pain Integumentary Integumentary: Reports wounds Neurologic Neurologic: Denies abnormal speech or confusion Psychiatric Psychiatric: Denies anxiety Vital Signs Vital Signs Vital Signs: 03/01/25 19:24 03/01/25 19:24 03/01/25 19:28 Temperature 100.0 F H 100.0 F H 100.0 F H Temperature Source Oral Oral Oral Pulse Rate 95 95 95 Respiratory Rate 16 18 18 Respiratory Effort Respiratory Pattern Blood Pressure 154/54 H 154/54 H 154/54 H Blood Pressure Mean 87 87 87 Pulse Ox 93 93 93 Oxygen Delivery Method Nasal Cannula Nasal Cannula Nasal Cannula Oxygen Flow Rate (L/min) 2 2 2 03/01/25 20:28 03/01/25 20:35 03/01/25 21:23 Temperature 100.1 F H 99.1 F Temperature Source Oral Oral Pulse Rate 95 92 Respiratory Rate 18 16 Respiratory Effort Normal Respiratory Pattern Normal Blood Pressure 142/53 H 142/53 H Blood Pressure Mean 82 82 Pulse Ox 94 95 Oxygen Delivery Method Nasal Cannula Oxygen Flow Rate (L/min) 2 03/01/25 22:00 Temperature 101 F H Temperature Source Axillary Pulse Rate 94 Respiratory Rate 18 Respiratory Effort Respiratory Pattern Blood Pressure 160/57 H Blood Pressure Mean 91 Pulse Ox 94 Oxygen Delivery Method Nasal Cannula Oxygen Flow Rate (L/min) 2 Weight Weight: 305 lb 1.916 oz Body Mass Index (BMI) 40.2 Physical Exam Const alert and oriented x3 General Appearance: cooperative and well developed HEENT normocephalic and head/scalp atraumatic Eyes PERRL Neck no lymphadenopathy Lymph Lymphatic: no lymphadenopathy noted Resp normal respiratory effort, normal air movement and clear to auscultation bilaterally Cardio regular rate, regular rhythm, S1 normal heart sound and S2 normal heart sound GI normal to inspection, nondistended, normoactive bowel sounds Extremity normal capillary refill Extremity Narrative: Left BKA, minor wound with dressing on dorsum of right foot Neuro no focal motor deficits and no sensory deficits noted Speech: speech normal Psych thought process normal and cooperative Results Lab / Micro Data 03/01/25 20:45 03/01/25 20:45 Labs: Laboratory Results - last 24 hr 03/01/25 20:37: Urine Color Red, Urine Clarity Turbid, Urine pH 8.0, Ur Specific [place] 1.015, Urine Protein 500 H, Urine Glucose (UA) Normal, Urine Ketones Negative, Urine Occult Blood 250 H, Urine Nitrite Negative, Urine Bilirubin Negative, Urine Urobilinogen Normal, Ur Leukocyte Esterase 25 H, Urine RBC > 100 SEEN, Urine WBC >100 SEEN, Ur Squamous Epith Cells 0-5 SEEN, Urine Bacteria 1+, Urine Mucus 0 SEEN 03/01/25 20:45: WBC 22.0 H, RBC 3.01 L, Hgb 9.7 L, Hct 29.6 L, MCV 98.3 H, MCH 32.2 H, MCHC 32.8, RDW Std Deviation 50.4 H, RDW Coeff of Shanta 14.2, Plt Count 135 L, MPV 10.9, Immature Gran % (Auto) 0.700, Neut % (Auto) 82.9 H, Lymph % (Auto) 8.2 L, [place] % (Auto) 6.4, Eos % (Auto) 1.5, Baso % (Auto) 0.3, Absolute Neuts (auto) 18.2 H, Absolute Lymphs (auto) 1.80, Nucleated RBC % 0, PT 19.3 H, INR 1.6, APTT 40.7 H, Sodium 137, Potassium 5.0, Chloride 94 L, Carbon Dioxide 29.1, Anion Gap 14, BUN 39 H, Creatinine 7.08 H, Estim Creat Clear Calc 20.87 L, Est GFR (MDRD) Non-Af 9 L, BUN/Creatinine Ratio 5.4 L, Glucose 103 H, Lactic Acid < 1.0, Calcium 9.3, Total Bilirubin 0.71, AST 16, ALT 14, Alkaline Phosphatase 183 H, Total Protein 8.3, Albumin 3.4 L, Globulin 4.9 H, Albumin/Globulin Ratio 0.7 L Micro: Microbiology 08/25/25 20:35 Mucosa - Nose SARS-CoV-2, Influenza & RSV (PCR) - Final Assessment & Plan Assessment/Plan (1) History of ESBL E. coli infection: (2) Complicated urinary tract infection: (3) Fever: (4) Anemia of chronic illness: (5) History of diabetes mellitus: (6) 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 disease: PLAN: Plan 1 febrile illness with history of ESBL infection?admit patient to general medical floor, continue meropenem initiated in the emergency room and consult infectious disease specialist for further antibiotic plan due to resistant infection. Repeat CBC, BMP in the a.m. 2. Diabetes?patient is tolerating p.o. just fine at this time and will place patient on sliding scale insulin and continue routine diabetes medications, will check A1c 3. End-stage renal disease?patient is due for his next dialysis on Saturday and will need to consult nephrology if patient is still here at that time. 4. DVT prophylaxis?SCD to right lower extremity 5. CODE STATUS- full code Charges/Coding Visit Charges Inpatient E&M: 45923 Init Hosp L2
--- NOTE | 2025-03-01 23:03 | NURSING ---
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
[2025-03-02] VITALS (10 sets, daily range): BP systolic 127–187; BP diastolic 32–112; PULSE 81–94; RESP 16–18; TEMP 36.8–38.8; O2SAT 94–100
[2025-03-02] MEDS: MELATONIN 3 MG TABLET 9 MG PO ×2 (01:15→21:31)
[2025-03-02] MEDS: Mupirocin Ointment 22gm Tube 1 APPLIC TOPICAL (01:25)
[2025-03-02 07:39] LABS: Hematocrit 30.1 % (40-54); Hemoglobin 9.4 g/dL (13.0-16.5); Immature Granulocytes Count 0.090 X10^3/uL (0.0-0.0); Mean Corp Hgb Conc 31.2 g/dL (32-36); Mean Corpuscular Volume 102.7 fL (80-94); Mean Platelet Vol. 11.0 fl (6.2-12.0); NRBC Flagged by Analyzer 0 % (0-5); Platelet Count 129 K/mm3 (150-450); RBC Distribution Width CV 14.1 % (11.6-14.6); RBC Distribution Width SD 53.2 fl (35.1-43.9); Red Blood Count 2.93 M/mm3 (4.6-6.2); White Blood Count 18.8 K/mm3 (4.4-11.0)
--- NOTE | 2025-03-02 08:09 | PN.HOSP_ITS ---
Reason for Visit Chief Complaint: Febrile illness Subjective Subjective Feeling well. No events overnight. Objective Data Objective Data Vital Signs: Vital Signs Temp Pulse Resp BP Pulse Ox O2 Del Method O2 Flow Rate 37.6 C H 94 16 144/112 H 96 Nasal Cannula 2 03/02/25 06:21 03/02/25 06:21 03/02/25 06:21 03/02/25 06:21 03/02/25 06:21 03/02/25 06:21 03/02/25 06:21 Oxygen Flow Rate (L/min) 2 Oxygen Delivery Method Nasal Cannula Weight: 135.5 kg Body Mass Index (BMI) 39.4 Intake & Output: Intake and Output for Last 24 Hours 02/28/25 03/01/25 03/02/25 23:59 23:59 23:59 Intake Total 100 / 100 Balance 100 / 100 Lab / Micro Data 03/02/25 07:11 03/02/25 07:11 Labs: Laboratory Results - last 24 hr 03/01/25 20:37: Urine Color Red, Urine Clarity Turbid, Urine pH 8.0, Ur Specific [place] 1.015, Urine Protein 500 H, Urine Glucose (UA) Normal, Urine Ketones Negative, Urine Occult Blood 250 H, Urine Nitrite Negative, Urine Bilirubin Negative, Urine Urobilinogen Normal, Ur Leukocyte Esterase 25 H, Urine RBC > 100 SEEN, Urine WBC >100 SEEN, Ur Squamous Epith Cells 0-5 SEEN, Urine Bacteria 1+, Urine Mucus 0 SEEN 03/01/25 20:45: WBC 22.0 H, RBC 3.01 L, Hgb 9.7 L, Hct 29.6 L, MCV 98.3 H, MCH 32.2 H, MCHC 32.8, RDW Std Deviation 50.4 H, RDW Coeff of Shanta 14.2, Plt Count 135 L, MPV 10.9, Immature Gran % (Auto) 0.700, Neut % (Auto) 82.9 H, Lymph % (Auto) 8.2 L, [place] % (Auto) 6.4, Eos % (Auto) 1.5, Baso % (Auto) 0.3, Absolute Neuts (auto) 18.2 H, Absolute Lymphs (auto) 1.80, Nucleated RBC % 0, PT 19.3 H, INR 1.6, APTT 40.7 H, Sodium 137, Potassium 5.0, Chloride 94 L, Carbon Dioxide 29.1, Anion Gap 14, BUN 39 H, Creatinine 7.08 H, Estim Creat Clear Calc 20.87 L, Est GFR (MDRD) Non-Af 9 L, BUN/Creatinine Ratio 5.4 L, Glucose 103 H, Lactic Acid < 1.0, Calcium 9.3, Total Bilirubin 0.71, AST 16, ALT 14, Alkaline Phosphatase 183 H, Total Protein 8.3, Albumin 3.4 L, Globulin 4.9 H, A lbumin/Globulin Ratio 0.7 L 03/02/25 06:17: POC Glucose 250 H 03/02/25 07:11: WBC 18.8 H, RBC 2.93 L, Hgb 9.4 L, Hct 30.1 L, MCV 102.7 H, MCH 32.1 H, MCHC 31.2 L, RDW Std Deviation 53.2 H, RDW Coeff of Shanta 14.1, Plt Count 129 L, MPV 11.0, Immature Gran % (Auto) 0.500, Neut % (Auto) 83.5 H, Lymph % (Auto) 6.9 L, [place] % (Auto) 6.2, Eos % (Auto) 2.3, Baso % (Auto) 0.6, Absolute Neuts (auto) 15.7 H, Absolute Lymphs (auto) 1.29, Nucleated RBC % 0 Micro: Microbiology 03/01/25 20:35 Mucosa - Nose SARS-CoV-2, Influenza & RSV (PCR) - Final Physical Exam Const alert and no apparent distress HEENT head/scalp atraumatic and moist oral mucous membranes Resp normal respiratory effort, no retractions, no use of accessory muscles and clear to auscultation bilaterally Cardio regular rate, regular rhythm, S1 normal heart sound and S2 normal heart sound GI GI Narrative: Colostomy present left lower quadrant. Extremity normal to inspection and full ROM Neuro Sensorium / Orientation: awake and alert Assessment & Plan Assessment/Plan (1) Catheter-associated urinary tract infection: PLAN: Catheter changed over on On IV meropenem Follow blood and urine cultures Complicated by immunosuppressants with tacrolimus ID consult PLAN: Plan Chronic condition * end-stage renal disease on dialysis: Next dialysis session will be the . Nephrology consult continue sevelamer * Diabetes mellitus type 2: Continue with glargine and sliding scale insulin. * VITO: Continue with CPAP at night. * Status post kidney transplant and subsequent failure. Still on tacrolimus. * Paraplegia * History of decubitus ulcers * Hypothyroidism: Continue with levothyroxine VTE prophylaxis: Not indicated patient already anticoagulation with apixaban. Charges/Coding Visit Charges Inpatient E&M: 83544 Subs Hosp L2
[2025-03-02 08:32] LABS: Anion Gap 13 (5-15); BUN 50 mg/dL (4-19); BUN/Creat Ratio 6.1 RATIO (10-20); Calcium,Total 8.9 mg/dL (7.6-11.0); Carbon Dioxide 27.5 mmol/L (21.0-32.0); Chloride 95 mmol/L (98-108); Estimated Creatinine Clearance 17.78 ml/min (50-250); Glucose 247 mg/dL (70-99); Potassium 5.6 mmol/L (3.3-5.1)
--- NOTE | 2025-03-02 08:42 | WOUNDNOTE ---
wound photo: right foot
--- NOTE | 2025-03-02 08:47 | WOUNDNOTE ---
Colostomy appliance in place to the left lower abdomen. pt uses disposable 2 piece appliances. will monitor. minimal stool noted in bag at this time. pt denies needs.
--- NOTE | 2025-03-02 09:47 | PCM.CONS.GEN ---
Assessment & Plan Assessment/Plan (1) Fever: (2) Complicated urinary tract infection: PLAN: Fever due to suspected complicated uti from suprapubic catheter - prior h/o esbl. Covid neg. Bcx and ucx pending. R foot wound does not appear infected. Cont meropenem. Will follow, thank you HPI Consult Data Date of Consult: 03/02/25 HPI Narrative Reason for Consultation: fever HPI Narrative: JABARI GUILLEN, is a 39 M with ESRD, on tacro, suprapubic catheter in place, presented to ED 03/01 with 2-3 days fever, chills, fatigue, not feeling well. Denies abd pain, no cough or SOB. No congestion or sore throat. Has wound on R foot, but no recent issues with it. Admitted on meropenem, feeling ok this AM. Full ROS performed and neg except as noted above. [facility] Medical History Left patella fracture Left knee pain Chronic pain Chronic indwelling Hurst catheter Dialysis patient Kidney disease CPAP (continuous positive airway pressure) dependence Sleep apnea Hypertension Blind Encephalopathy Hyponatremia Hypertensive urgency Acute delirium Decubitus ulcer Abscess Left ischial pressure sore Open wound of left buttock with complication Current use of penitentiary anticoagulation Acute hyperkalemia Acute alteration in mental status Phantom limb syndrome with pain Paraplegia Metabolic encephalopathy ESRD (end stage renal disease) on dialysis Hx of pulmonary embolus Type 2 diabetes mellitus End-stage renal disease on hemodialysis Anticoagulant long-term use History of deep vein thrombosis Anemia in chronic kidney disease, on chronic dialysis Acute postoperative pain nursing home (current) use of 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 H/O deep venous thrombosis Osteomyelitis of pelvic region Lives in [facility]cc Anxiety Open wound Insulin dependent diabetes mellitus Uses wheelchair Injury of back Non-healing wound of amputation stump DM type 2, goal HbA1c < 7% 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 disease 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, stage 4 Neurogenic bowel Chronic kidney disease with end stage renal failure on dialysis Kidney transplant failure Dependence on renal dialysis Pressure ulcer of left heel, unspecified stage Gastro-esophageal reflux disease without esophagitis Other pericardial effusion (noninflammatory) Other pulmonary embolism without acute cor pulmonale Hypertensive heart and chronic kidney disease with heart failure and stage 1 through stage 4 chronic kidney disease, or unspecified chronic kidney disease Depression Hyperlipemia Hypothyroidism Anemia in chronic kidney disease Neuromuscular dysfunction of bladder, unspecified Paraplegia, incomplete Other acute osteomyelitis, left ankle and foot End stage renal disease Home Medications ?Medication ?Instructions ?Recorded ?Last Taken ?Type dextrose 40 % oral gel (Glucose 15 g PO Q15M PRN HYPGLYCEMIA 01/02/23 Unknown History Gel) sennosides 8.6 mg-docusate sodium 1 tab-cap PO BID CONSTIPATION 01/02/23 11/09/24 History 50 mg capsule (Senna Plus) tacrolimus 1 mg capsule, 2 mg PO Q12H IMMUNOSUPPRESIVE 01/02/23 11/09/24 History immediate-release (Prograf) sevelamer HCl 800 mg tablet 2,400 mg PO TIDCM ESRD 04/21/23 11/09/24 History insulin lispro 100 unit/mL 1 sliding scale dose subcut TIDCM 03/22/24 11/09/24 History subcutaneous pen guaifenesin 100 mg/5 mL oral 200 mg PO Q4H PRN COUGH/CONGESTION 03/29/24 Unknown History liquid (Adult Tussin Chest Congestion) glucagon HCl 1 mg solution for 1 mg IM Q20M PRN HYPOGLYCEMIA 04/13/24 Unknown History injection (Glucagon (HCl) Emergency Kit) hydralazine 50 mg tablet 50 mg PO TID BLOOD PRESSURE 04/13/24 11/09/24 History sodium phosphates 19 gram-7 118 ml [place] DAILY PRN constipation 04/22/24 Unknown History gram/118 mL enema (Fleet Enema) insulin glargine 100 unit/mL (3 8 unit subcut QPM DM 06/27/24 11/08/24 History mL) subcutaneous pen (Lantus Solostar U-100 Insulin) insulin lispro 100 unit/mL 5 unit subcut TID DM 06/27/24 11/09/24 History subcutaneous solution apixaban 2.5 mg tablet (Eliquis) 2.5 mg PO BID KIDNEY DISEASE WITH 11/09/24 11/09/24 History HEART FAILURE cholecalciferol (vitamin D3) 125 125 mcg PO DAILY MALNUTRITION 11/09/24 11/08/24 History mcg (5,000 unit) capsule duloxetine 30 mg capsule,delayed 60 mg PO QHS major depressive 11/09/24 11/08/24 History release disorder gabapentin 300 mg capsule 300 mg PO BID PAIN 11/09/24 11/08/24 History mupirocin 2 % topical ointment 1 applic topical MOWEFR WOUND TX 11/09/24 11/06/24 History clonidine HCl 0.2 mg tablet 0.2 mg PO BID 02/19/25 Unknown History B [id number] acid-Zn tablet 1 tab PO DAILY 03/01/25 Unknown History atorvastatin 40 mg tablet 40 mg PO DAILY 03/01/25 Unknown History calcitriol 0.5 mcg capsule 0.5 mcg PO MOWEFR 03/01/25 Unknown History carvedilol 25 mg tablet 50 mg PO BID 03/01/25 Unknown History duloxetine 60 mg capsule,delayed 60 mg PO QHS 03/01/25 Unknown History release ivermectin 1 % topical cream applic topical QHS 03/01/25 Unknown History levothyroxine 150 mcg tablet 150 mcg PO DAILY 03/01/25 Unknown History melatonin 3 mg capsule 9 mg PO QHS 03/01/25 Unknown History metronidazole 1 % topical gel 1 applic topical DAILY 03/01/25 Unknown History midodrine 10 mg tablet 10 mg PO DAILY PRN hypotension 03/01/25 Unknown History ondansetron HCl 4 mg tablet 4 mg PO Q8H PRN PRN nausea and 03/01/25 Unknown History vomiting pantoprazole 40 mg tablet,delayed 40 mg PO DAILY 03/01/25 Unknown History release Allergy/AdvReac Type Severity Reaction Status Date / Time No Known Allergies Allergy Verified 02/19/25 14:26 Family History Mother Hypertension Diabetes Father Hypertension Diabetes Surgical History History of kidney transplant S/P unilateral above knee amputation S/P foot surgery S/P colostomy Social History housing: [facility] Smoking Status: Never smoker alcohol intake: never substance use type: does not use Physical Exam Const alert, oriented x3 and no apparent distress General Appearance: cooperative HEENT normocephalic and head/scalp atraumatic Eyes PERRL and EOMs intact bilaterally Neck supple and No nodes Resp normal air movement and clear to auscultation bilaterally Cardio regular rate and regular rhythm GI soft to palpation, non-tender and non-distended Extremity General Extremity: edema Skin Skin Narrative: L BKA. R lateral foot with shallow ulcer, no redness or drainage. Neuro CN's II-XII intact bilaterally Lab / Micro Data Attestation: I reviewed the patient's lab results. 03/02/25 07:11 03/02/25 07:11 Labs: Laboratory Results - last 24 hr 03/01/25 20:37: Urine Color Red, Urine Clarity Turbid, Urine pH 8.0, Ur Specific [place] 1.015, Urine Protein 500 H, Urine Glucose (UA) Normal, Urine Ketones Negative, Urine Occult Blood 250 H, Urine Nitrite Negative, Urine Bilirubin Negative, Urine Urobilinogen Normal, Ur Leukocyte Esterase 25 H, Urine RBC > 100 SEEN, Urine WBC >100 SEEN, Ur Squamous Epith Cells 0-5 SEEN, Urine Bacteria 1+, Urine Mucus 0 SEEN 03/01/25 20:45: WBC 22.0 H, RBC 3.01 L, Hgb 9.7 L, Hct 29.6 L, MCV 98.3 H, MCH 32.2 H, MCHC 32.8, RDW Std Deviation 50.4 H, RDW Coeff of Shanta 14.2, Plt Count 135 L, MPV 10.9, Immature Gran % (Auto) 0.700, Neut % (Auto) 82.9 H, Lymph % (Auto) 8.2 L, [place] % (Auto) 6.4, Eos % (Auto) 1.5, Baso % (Auto) 0.3, Absolute Neuts (auto) 18.2 H, Absolute Lymphs (auto) 1.80, Nucleated RBC % 0, PT 19.3 H, INR 1.6, APTT 40.7 H, Sodium 137, Potassium 5.0, Chloride 94 L, Carbon Dioxide 29.1, Anion Gap 14, BUN 39 H, Creatinine 7.08 H, Estim Creat Clear Calc 20.87 L, Est GFR (MDRD) Non-Af 9 L, BUN/Creatinine Ratio 5.4 L, Glucose 103 H, Lactic Acid < 1.0, Calcium 9.3, Total Bilirubin 0.71, AST 16, ALT 14, Alkaline Phosphatase 183 H, Total Protein 8.3, Albumin 3.4 L, Globulin 4.9 H, Albumin/Globulin Ratio 0.7 L 03/02/25 06:17: POC Glucose 250 H 03/02/25 07:11: WBC 18.8 H, RBC 2.93 L, Hgb 9.4 L, Hct 30.1 L, MCV 102.7 H, MCH 32.1 H, MCHC 31.2 L, RDW Std Deviation 53.2 H, RDW Coeff of Shanta 14.1, Plt Count 129 L, MPV 11.0, Immature Gran % (Auto) 0.500, Neut % (Auto) 83.5 H, Lymph % (Auto) 6.9 L, [place] % (Auto) 6.2, Eos % (Auto) 2.3, Baso % (Auto) 0.6, Absolute Neuts (auto) 15.7 H, Absolute Lymphs (auto) 1.29, Nucleated RBC % 0, Sodium 135, Potassium 5.6 H, Chloride 95 L, Carbon Dioxide 27.5, Anion Gap 13, BUN 50 H, Creatinine 8.22 H*, Estim Creat Clear Calc 17.78 L, Est GFR (MDRD) Non-Af 8 L, BUN/Creatinine Ratio 6.1 L, Glucose 247 H, Calcium 8.9, TSH 2.400 Micro: Microbiology 03/01/25 20:35 Mucosa - Nose SARS-CoV-2, Influenza & RSV (PCR) - Final
[2025-03-02] MEDS: Vitamin B Comp W-C Capsule 1 CAP PO (10:51)
[2025-03-02] MEDS: APIXABAN 2.5 MG TABLET (WCH) PO ×2 (10:52→21:30)
[2025-03-02] MEDS: Cholecalciferol (Vit D3) 125 MCG CAPSULE (5,000 UNITS) PO (10:53)
--- NOTE | 2025-03-02 10:55 | CASEMGMT ---
Noted that the pt is from [facility]. RN CM to the pt room at this time to discuss DC planning. Pt states that he prefers to return to [facility] at the time of DC and denies wanting to review a list of other local SNF's in-network with the pt's insurance. [facility] DPA notified and plans to send updates to [facility].
--- NOTE | 2025-03-02 11:54 | CASEMGMT ---
Addendum entered by Selina Sylvester 03/03/25 08:19: Pt is a bedhold and can return when medically ready. Selina Sylvester DC Planning Asst. Original Note: Discharge Planning Updates sent to [facility]. Selina Sylvester DC Planning Asst
[2025-03-02] MEDS: SEVELAMER CARBONATE 800 MG TABLET 2400 MG PO ×2 (12:20→17:32)
--- NOTE | 2025-03-02 14:11 | PCM.CONS.R ---
Assessment & Plan Assessment/Plan (1) End stage renal disease: PLAN: Hemodialysis will be arranged tomorrow as per schedule. Hyperkalemia. Mild. Potassium 5.6. In general he runs potassium on the higher side. Asymptomatic. Should improve with dialysis. Medication list reviewed. He is still on low-dose tacrolimus. I am not sure if this is to prevent hyper acute rejection. Does make him immunosuppressed. Consider tapering it off. This will be managed by his outpatient machine set up. UTI/pyelonephritis. ID on consult. HPI Consult Data Date of Consult: 03/02/25 HPI Narrative Reason for Consultation: ESRD HPI Narrative: JABARI GUILLEN, is a 39 M who presents to the hospital with fever, chills. Nephrology on consultation we have ESRD. Currently lives in a intermediate, goes to [facility] here in town Saturday, Saturday, Saturday schedule. He has known history of suprapubic catheter, history of infections from before. Presented with what seems like another episode of UTI/pyelonephritis. ID on consult. Last Dialysis was yesterday 03/01/2025. [facility] Medical History Left patella fracture Left knee pain Chronic pain Chronic indwelling Hurst catheter Dialysis patient Kidney disease CPAP (continuous positive airway pressure) dependence Sleep apnea Hypertension Blind Encephalopathy Hyponatremia Hypertensive urgency Acute delirium Decubitus ulcer Abscess Left ischial pressure sore Open wound of left buttock with complication Current use of custodial anticoagulation Acute hyperkalemia Acute alteration in mental status Phantom limb syndrome with pain Paraplegia Metabolic encephalopathy ESRD (end stage renal disease) on dialysis Hx of pulmonary embolus Type 2 diabetes mellitus End-stage renal disease on hemodialysis Anticoagulant long-term use History of deep vein thrombosis Anemia in chronic kidney disease, on chronic dialysis 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 H/O deep venous thrombosis Osteomyelitis of pelvic region Lives in intermediate Anxiety Open wound Insulin dependent diabetes mellitus Uses wheelchair Injury of back Non-healing wound of amputation stump DM type 2, goal HbA1c < 7% 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 disease 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, stage 4 Neurogenic bowel Chronic kidney disease with end stage renal failure on dialysis Kidney transplant failure Dependence on renal dialysis Pressure ulcer of left heel, unspecified stage Gastro-esophageal reflux disease without esophagitis Other pericardial effusion (noninflammatory) Other pulmonary embolism without acute cor pulmonale Hypertensive heart and chronic kidney disease with heart failure and stage 1 through stage 4 chronic kidney disease, or unspecified chronic kidney disease Depression Hyperlipemia Hypothyroidism Anemia in chronic kidney disease Neuromuscular dysfunction of bladder, unspecified Paraplegia, incomplete Other acute osteomyelitis, left ankle and foot End stage renal disease Home Medications ?Medication ?Instructions ?Recorded ?Last Taken ?Type dextrose 40 % oral gel (Glucose 15 g PO Q15M PRN HYPGLYCEMIA 01/02/23 Unknown History Gel) sennosides 8.6 mg-docusate sodium 1 tab-cap PO BID CONSTIPATION 01/02/23 11/09/24 History 50 mg capsule (Senna Plus) tacrolimus 1 mg capsule, 2 mg PO Q12H IMMUNOSUPPRESIVE 01/02/23 11/09/24 History immediate-release (Prograf) sevelamer HCl 800 mg tablet 2,400 mg PO TIDCM ESRD 04/21/23 11/09/24 History insulin lispro 100 unit/mL 1 sliding scale dose subcut TIDCM 03/22/24 11/09/24 History subcutaneous pen guaifenesin 100 mg/5 mL oral 200 mg PO Q4H PRN COUGH/CONGESTION 03/29/24 Unknown History liquid (Adult Tussin Chest Congestion) glucagon HCl 1 mg solution for 1 mg IM Q20M PRN HYPOGLYCEMIA 04/13/24 Unknown History injection (Glucagon (HCl) Emergency Kit) hydralazine 50 mg tablet 50 mg PO TID BLOOD PRESSURE 04/13/24 11/09/24 History sodium phosphates 19 gram-7 118 ml [place] DAILY PRN constipation 04/22/24 Unknown History gram/118 mL enema (Fleet Enema) insulin glargine 100 unit/mL (3 8 unit subcut QPM DM 06/27/24 11/08/24 History mL) subcutaneous pen (Lantus Solostar U-100 Insulin) insulin lispro 100 unit/mL 5 unit subcut TID DM 06/27/24 11/09/24 History subcutaneous solution apixaban 2.5 mg tablet (Eliquis) 2.5 mg PO BID KIDNEY DISEASE WITH 11/09/24 11/09/24 History HEART FAILURE cholecalciferol (vitamin D3) 125 125 mcg PO DAILY MALNUTRITION 11/09/24 11/08/24 History mcg (5,000 unit) capsule duloxetine 30 mg capsule,delayed 60 mg PO QHS major depressive 11/09/24 11/08/24 History release disorder gabapentin 300 mg capsule 300 mg PO BID PAIN 11/09/24 11/08/24 History mupirocin 2 % topical ointment 1 applic topical MOWEFR WOUND TX 11/09/24 11/06/24 History clonidine HCl 0.2 mg tablet 0.2 mg PO BID 02/19/25 Unknown History B [id number]-N-[id number] acid-Zn tablet 1 tab PO DAILY 03/01/25 Unknown History atorvastatin 40 mg tablet 40 mg PO DAILY 03/01/25 Unknown History calcitriol 0.5 mcg capsule 0.5 mcg PO MOWEFR 03/01/25 Unknown History carvedilol 25 mg tablet 50 mg PO BID 03/01/25 Unknown History duloxetine 60 mg capsule,delayed 60 mg PO QHS 03/01/25 Unknown History release ivermectin 1 % topical cream applic topical QHS 03/01/25 Unknown History levothyroxine 150 mcg tablet 150 mcg PO DAILY 03/01/25 Unknown History melatonin 3 mg capsule 9 mg PO QHS 03/01/25 Unknown History metronidazole 1 % topical gel 1 applic topical DAILY 03/01/25 Unknown History midodrine 10 mg tablet 10 mg PO DAILY PRN hypotension 03/01/25 Unknown History ondansetron HCl 4 mg tablet 4 mg PO Q8H PRN PRN nausea and 03/01/25 Unknown History vomiting pantoprazole 40 mg tablet,delayed 40 mg PO DAILY 03/01/25 Unknown History release Allergy/AdvReac Type Severity Reaction Status Date / Time No Known Allergies Allergy Verified 02/19/25 14:26 Family History Mother Hypertension Diabetes Father Hypertension Diabetes Surgical History History of kidney transplant S/P unilateral above knee amputation S/P foot surgery S/P colostomy Social History housing: intermediate Smoking Status: Never smoker alcohol intake: never substance use type: does not use ROS ROS Narrative Negative except above Physical Exam Narrative no obvious distress no pallor no icterus no JVD s1s2 no murmurs lungs clear abdomen soft no organomegaly no edema Lab / Micro Data 03/02/25 07:11 03/02/25 07:11 Labs: Laboratory Results - last 24 hr 03/01/25 20:37: Urine Color Red, Urine Clarity Turbid, Urine pH 8.0, Ur Specific [place] 1.015, Urine Protein 500 H, Urine Glucose (UA) Normal, Urine Ketones Negative, Urine Occult Blood 250 H, Urine Nitrite Negative, Urine Bilirubin Negative, Urine Urobilinogen Normal, Ur Leukocyte Esterase 25 H, Urine RBC > 100 SEEN, Urine WBC >100 SEEN, Ur Squamous Epith Cells 0-5 SEEN, Urine Bacteria 1+, Urine Mucus 0 SEEN 03/01/25 20:45: WBC 22.0 H, RBC 3.01 L, Hgb 9.7 L, Hct 29.6 L, MCV 98.3 H, MCH 32.2 H, MCHC 32.8, RDW Std Deviation 50.4 H, RDW Coeff of Shanta 14.2, Plt Count 135 L, MPV 10.9, Immature Gran % (Auto) 0.700, Neut % (Auto) 82.9 H, Lymph % (Auto) 8.2 L, [place] % (Auto) 6.4, Eos % (Auto) 1.5, Baso % (Auto) 0.3, Absolute Neuts (auto) 18.2 H, Absolute Lymphs (auto) 1.80, Nucleated RBC % 0, PT 19.3 H, INR 1.6, APTT 40.7 H, Sodium 137, Potassium 5.0, Chloride 94 L, Carbon Dioxide 29.1, Anion Gap 14, BUN 39 H, Creatinine 7.08 H, Estim Creat Clear Calc 20.87 L, Est GFR (MDRD) Non-Af 9 L, BUN/Creatinine Ratio 5.4 L, Glucose 103 H, Lactic Acid < 1.0, Calcium 9.3, Total Bilirubin 0.71, AST 16, ALT 14, Alkaline Phosphatase 183 H, Total Protein 8.3, Albumin 3.4 L, Globulin 4.9 H, Albumin/Globulin Ratio 0.7 L 03/02/25 06:17: POC Glucose 250 H 03/02/25 07:11: WBC 18.8 H, RBC 2.93 L, Hgb 9.4 L, Hct 30.1 L, MCV 102.7 H, MCH 32.1 H, MCHC 31.2 L, RDW Std Deviation 53.2 H, RDW Coeff of Shanta 14.1, Plt Count 129 L, MPV 11.0, Immature Gran % (Auto) 0.500, Neut % (Auto) 83.5 H, Lymph % (Auto) 6.9 L, [place] % (Auto) 6.2, Eos % (Auto) 2.3, Baso % (Auto) 0.6, Absolute Neuts (auto) 15.7 H, Absolute Lymphs (auto) 1.29, Nucleated RBC % 0, Sodium 135, Potassium 5.6 H, Chloride 95 L, Carbon Dioxide 27.5, Anion Gap 13, BUN 50 H, Creatinine 8.22 H*, Estim Creat Clear Calc 17.78 L, Est GFR (MDRD) Non-Af 8 L, BUN/Creatinine Ratio 6.1 L, Glucose 247 H, Calcium 8.9, TSH 2.400 Micro: Microbiology 03/01/25 20:37 Urine Catheter - Catheter Urine Culture - Preliminary Presumptive E. coli 03/01/25 20:35 Mucosa - Nose SARS-CoV-2, Influenza & RSV (PCR) - Final
[2025-03-02] MEDS: Juven (unflavored) Packet 1 PACKET PO (17:31)
[2025-03-02] MEDS: Insulin Glargine-YFGN 100 UNIT/ML Pen 8 UNIT SC (21:28)
[2025-03-02] MEDS: Meropenem 1 GM in 0.9% Normal Saline (100mL MB+) 100 ML IV (21:32)
[2025-03-03] VITALS (16 sets, daily range): BP systolic 97–181; BP diastolic 36–73; PULSE 66–89; RESP 14–18; TEMP 36.5–37.6; O2SAT 92–100; BMI 39.1; BMI 38.1
[2025-03-03 05:15] LABS: Hematocrit 28.8 % (40-54); Hemoglobin 9.1 g/dL (13.0-16.5); Immature Granulocytes Count 0.080 X10^3/uL (0.0-0.0); Mean Corp Hgb Conc 31.6 g/dL (32-36); Mean Corpuscular Volume 100.3 fL (80-94); Mean Platelet Vol. 10.7 fl (6.2-12.0); NRBC Flagged by Analyzer 0 % (0-5); Platelet Count 117 K/mm3 (150-450); RBC Distribution Width CV 13.7 % (11.6-14.6); RBC Distribution Width SD 50.4 fl (35.1-43.9); Red Blood Count 2.87 M/mm3 (4.6-6.2); White Blood Count 11.5 K/mm3 (4.4-11.0)
[2025-03-03 05:52] LABS: Anion Gap 15 (5-15); BUN 63 mg/dL (4-19); BUN/Creat Ratio 6.3 RATIO (10-20); Calcium,Total 8.9 mg/dL (7.6-11.0); Carbon Dioxide 26.7 mmol/L (21.0-32.0); Chloride 93 mmol/L (98-108); Estimated Creatinine Clearance 14.66 ml/min (50-250); Glucose 198 mg/dL (70-99); Potassium 5.8 mmol/L (3.3-5.1)
--- NOTE | 2025-03-03 07:50 | PN.HOSP_ITS ---
Reason for Visit Chief Complaint: Febrile illness Subjective Subjective Feeling well. Feeling well. No events. Scant urine output. Objective Data Objective Data Vital Signs: Vital Signs Temp Pulse Resp BP Pulse Ox O2 Del Method O2 Flow Rate 37.5 C H 89 18 99/47 L 92 Nasal Cannula 2 03/03/25 05:13 03/03/25 05:13 03/03/25 05:13 03/03/25 05:13 03/03/25 05:13 03/03/25 05:15 03/03/25 05:15 Oxygen Flow Rate (L/min) 2 Oxygen Delivery Method Nasal Cannula Weight: 134 kg Body Mass Index (BMI) 39.1 Intake & Output: Intake and Output for Last 24 Hours 03/01/25 03/02/25 03/03/25 23:59 23:59 23:59 Intake Total 100 / 100 1100 / 1100 200 / 200 Output Total 0 / 0 0 / 0 Balance 100 / 100 1100 / 1100 200 / 200 Lab / Micro Data 03/03/25 04:36 03/03/25 04:36 Labs: Laboratory Results - last 24 hr 03/01/25 20:37: Urine Color Red, Urine Clarity Turbid, Urine pH 8.0, Ur Specific [place] 1.015, Urine Protein 500 H, Urine Glucose (UA) Normal, Urine Ketones Negative, Urine Occult Blood 250 H, Urine Nitrite Negative, Urine Bilirubin Negative, Urine Urobilinogen Normal, Ur Leukocyte Esterase 25 H, Urine RBC > 100 SEEN, Urine WBC >100 SEEN, Ur Squamous Epith Cells 0-5 SEEN, Urine Bacteria 1+, Urine Mucus 0 SEEN 03/02/25 07:11: Sodium 135, Potassium 5.6 H, Chloride 95 L, Carbon Dioxide 27.5, Anion Gap 13, BUN 50 H, Creatinine 8.22 H*, Estim Creat Clear Calc 17.78 L, Est GFR (MDRD) Non-Af 8 L, BUN/Creatinine Ratio 6.1 L, Glucose 247 H, Calcium 8.9, TSH 2.400 03/02/25 11:57: POC Glucose 221 H 03/02/25 16:52: POC Glucose 275 H 03/02/25 21:14: POC Glucose 236 H 03/03/25 04:36: WBC 11.5 H, RBC 2.87 L, Hgb 9.1 L, Hct 28.8 L, MCV 100.3 H, MCH 31.7, MCHC 31.6 L, RDW Std Deviation 50.4 H, RDW Coeff of Shanta 13.7, Plt Count 117 L, MPV 10.7, Immature Gran % (Auto) 0.700, Neut % (Auto) 71.2 H, Lymph % (Auto) 13.2 L, [place] % (Auto) 9.3, Eos % (Auto) 5.0, Baso % (Auto) 0.6, Absolute Neuts (auto) 8.2 H, Absolute Lymphs (auto) 1.52, Nucleated RBC % 0, Sodium 134, Potassium 5.8 H, Chloride 93 L, Carbon Dioxide 26.7, Anion Gap 15, BUN 63 H, C reatinine 9.97 H*, Estim Creat Clear Calc 14.66 L, Est GFR (MDRD) Non-Af 6 L, B UN/Creatinine Ratio 6.3 L, Glucose 198 H, Calcium 8.9 03/03/25 05:22: POC Glucose 199 H Micro: Microbiology 03/01/25 20:37 Urine Catheter - Catheter Urine Culture - Preliminary Presumptive E. coli 03/01/25 20:35 Mucosa - Nose SARS-CoV-2, Influenza & RSV (PCR) - Final Physical Exam Const alert and no apparent distress HEENT head/scalp atraumatic and moist oral mucous membranes Resp normal respiratory effort, no retractions, no use of accessory muscles and clear to auscultation bilaterally Cardio regular rate, regular rhythm, S1 normal heart sound and S2 normal heart sound GI normal to inspection, nondistended, normoactive bowel sounds, soft to palpation and non-tender Assessment & Plan Assessment/Plan (1) Catheter-associated urinary tract infection: PLAN: Catheter changed over on On IV meropenem Follow blood and urine cultures Complicated by immunosuppressants with tacrolimus ID consult who plans for 5 more days of IV ertapenem with dialysis.. UCx growing presumptive E. coli showing that it is ESBL sensitive to Unasyn, gentamicin, meropenem, Macrobid and Zosyn and Bactrim. PLAN: Plan Chronic condition * end-stage renal disease on dialysis: Next dialysis session will be the . Nephrology consult. Continue sevelamer * Diabetes mellitus type 2: Continue with glargine and sliding scale insulin. * VITO: Continue with CPAP at night. * Status post kidney transplant and subsequent failure. Still on tacrolimus. * Paraplegia * History of decubitus ulcers * Hypothyroidism: Continue with levothyroxine VTE prophylaxis: Not indicated patient already anticoagulation with apixaban. Charges/Coding Visit Charges Inpatient E&M: 22552 Subs Hosp L2
--- NOTE | 2025-03-03 09:55 | WOUNDNOTE ---
Colostomy appliance changed. stoma sits just at skin level. peristomal skin is intact. applied a new 2 piece Flat [place] appliance with disposable bag per pt request.
[2025-03-03] MEDS: PureFlow B 2K Dialysis Soln 1 BAG 6 BAG PF (10:37)
[2025-03-03] MEDS: 0.9% Normal Saline 1,000 ML IV.SOLN. 1000 ML OPERA.SITE (10:37)
--- NOTE | 2025-03-03 13:22 | PCM.PN.ID ---
Physical Exam Narrative Feeling better, no fever, no abd pain, no n/v/d. HD today. Const alert and no apparent distress General Appearance: cooperative Resp normal air movement and clear to auscultation bilaterally Cardio regular rate and regular rhythm GI soft to palpation, non-tender and non-distended Skin no rashes or lesions noted ID ID: Route of nutrition/ use of supplements: [] Nutritional Intake: [] IV Site: [] [place] Catheter: [] Assessment & Plan Assessment/Plan (1) Fever: (2) Complicated urinary tract infection: PLAN: Fever due to ESBL ecoli complicated uti from suprapubic catheter - prior h/o esbl. Covid neg. Bcx neg. R foot wound does not appear infected. Cont meropenem. Plan for discharge will be IV ertapenem 1gm with dialysis for 5 more days. Will need dose of ertapenem 500mg x1 here before leaving if he does go tomorrow. Wrote rx. Will follow
[2025-03-03] MEDS: Vitamin B Comp W-C Capsule 1 CAP PO (13:40)
[2025-03-03] MEDS: APIXABAN 2.5 MG TABLET (WCH) PO ×2 (13:40→21:57)
[2025-03-03] MEDS: Cholecalciferol (Vit D3) 125 MCG CAPSULE (5,000 UNITS) PO (13:41)
--- NOTE | 2025-03-03 14:06 | CASEMGMT ---
Per rounds with the hospitalist, pt is not medically ready for DC today. ID hands this RN CM a physical IV ATB order. Scanned IV ATB Rx, wound care nurse notes, and updated clinicals sent to [facility] CM to follow. Original ATB rx placed in the SNF packet and copy placed in the pt's chart.
[2025-03-03] MEDS: SEVELAMER CARBONATE 800 MG TABLET 2400 MG PO (16:26)
[2025-03-03] MEDS: 0.9% Saline Lock 10 ML Syringe IV ×2 (18:26→21:58)
[2025-03-03] MEDS: MELATONIN 3 MG TABLET 9 MG PO (22:00)
[2025-03-03] MEDS: Insulin Glargine-YFGN 100 UNIT/ML Pen 8 UNIT SC (22:01)
[2025-03-03] MEDS: Meropenem 1 GM in 0.9% Normal Saline (100mL MB+) 100 ML IV (22:36)
[2025-03-04 00:15] VITALS: BP 136/46; PULSE 80; RESP 16; TEMP 37.2; O2SAT 98
[2025-03-04] MEDS: 0.9% Saline Lock 10 ML Syringe IV (02:06)
[2025-03-04 05:28] VITALS: BP 141/53; PULSE 76; RESP 16; TEMP 37.1; O2SAT 96
[2025-03-04 05:29] VITALS: BP 141/53; PULSE 76
[2025-03-04 05:32] VITALS: BMI 38.0
[2025-03-04 07:29] LABS: Hematocrit 30.1 % (40-54); Hemoglobin 9.6 g/dL (13.0-16.5); Immature Granulocytes Count 0.050 X10^3/uL (0.0-0.0); Mean Corp Hgb Conc 31.9 g/dL (32-36); Mean Corpuscular Volume 99.7 fL (80-94); Mean Platelet Vol. 11.3 fl (6.2-12.0); NRBC Flagged by Analyzer 0 % (0-5); POSITIVE DIFFERENTIAL YES; Platelet Count 137 K/mm3 (150-450); RBC Distribution Width CV 13.6 % (11.6-14.6); RBC Distribution Width SD 49.2 fl (35.1-43.9); Red Blood Count 3.02 M/mm3 (4.6-6.2); White Blood Count 7.9 K/mm3 (4.4-11.0)
[2025-03-04 07:32] LABS: Differential Indicated SCAN CRITERIA MET
[2025-03-04 07:45] VITALS: BP 131/43; PULSE 78; RESP 18; TEMP 36.7; O2SAT 95
--- NOTE | 2025-03-04 07:51 | PN.HOSP_ITS ---
Reason for Visit Chief Complaint: Febrile illness Subjective Subjective Feels well. No issues overnight. Objective Data Objective Data Vital Signs: Vital Signs Temp Pulse Resp BP Pulse Ox O2 Del Method O2 Flow Rate 37.1 C 76 16 141/53 H 96 Nasal Cannula 2 03/04/25 05:28 03/04/25 05:29 03/04/25 05:28 03/04/25 05:29 03/04/25 05:28 03/04/25 07:35 03/04/25 07:35 Oxygen Flow Rate (L/min) 2 Oxygen Delivery Method Nasal Cannula Weight: 130.1 kg Body Mass Index (BMI) 38.0 Intake & Output: Intake and Output for Last 24 Hours 03/02/25 03/03/25 03/04/25 23:59 23:59 23:59 Intake Total 1100 / 1100 320 / 520 300 / 300 Output Total 0 / 0 3770 / 3770 Balance 1100 / 1100 -3450 / -3250 300 / 300 Lab / Micro Data 03/04/25 06:55 03/04/25 06:55 Labs: Laboratory Results - last 24 hr 03/03/25 12:01: POC Glucose 159 H 03/03/25 16:21: POC Glucose 156 H 03/03/25 21:39: POC Glucose 211 H 03/04/25 06:36: POC Glucose 185 H 03/04/25 06:55: WBC 7.9, RBC 3.02 L, Hgb 9.6 L, Hct 30.1 L, MCV 99.7 H, MCH 31.8, MCHC 31.9 L, RDW Std Deviation 49.2 H, RDW Coeff of Shanta 13.6, Plt Count 137 L, MPV 11.3, Immature Gran % (Auto) 0.600, Neut % (Auto) 49.9, Lymph % (Auto) 17.6 L, [place] % (Auto) 19.7 H, Eos % (Auto) 11.1 H, Baso % (Auto) 1.1 H, Absolute Neuts (auto) 3.9, Absolute Lymphs (auto) 1.38, Nucleated RBC % 0 Micro: Microbiology 03/01/25 21:00 Blood Culture (Wb) #2 - Right Hand Blood Culture - Preliminary No growth in 48 hours. 03/01/25 20:45 Blood Culture (Wb) - Right Hand Blood Culture - Preliminary No growth in 48 hours. 03/01/25 20:37 Urine Catheter - Catheter Urine Culture - Final Presumptive E. coli 03/01/25 20:35 Mucosa - Nose SARS-CoV-2, Influenza & RSV (PCR) - Final Physical Exam Const alert and no apparent distress HEENT head/scalp atraumatic and moist oral mucous membranes Resp normal respiratory effort, no retractions, no use of accessory muscles and clear to auscultation bilaterally Cardio regular rate, regular rhythm, S1 normal heart sound and S2 normal heart sound Assessment & Plan Assessment/Plan (1) Catheter-associated urinary tract infection: PLAN: Suprapubic Catheter changed over on On IV meropenem Complicated by immunosuppressants with tacrolimus ID recommends plans for 2 more doses of IV ertapenem with dialysis on 03/05 and 03/08 UCx growing presumptive E. coli showing that it is ESBL sensitive to Unasyn, gentamicin, meropenem, Macrobid and Zosyn and Bactrim. PLAN: Plan Chronic condition * end-stage renal disease on dialysis: Next dialysis session will be the . Nephrology consult. Continue sevelamer * Diabetes mellitus type 2: Continue with glargine and sliding scale insulin. * VITO: Continue with CPAP at night. * Status post kidney transplant and subsequent failure. Still on tacrolimus. * Paraplegia * History of decubitus ulcers * Hypothyroidism: Continue with levothyroxine VTE prophylaxis: Not indicated patient already anticoagulation with apixaban. Disposition: to SNF today.
[2025-03-04 08:11] LABS: Anion Gap 14 (5-15); BUN 51 mg/dL (4-19); BUN/Creat Ratio 6.1 RATIO (10-20); Calcium,Total 9.3 mg/dL (7.6-11.0); Carbon Dioxide 24.9 mmol/L (21.0-32.0); Chloride 95 mmol/L (98-108); Estimated Creatinine Clearance 16.97 ml/min (50-250); Glucose 189 mg/dL (70-99); Potassium 5.3 mmol/L (3.3-5.1)
[2025-03-04 09:07] VITALS: BP 109/40; PULSE 73; RESP 18; TEMP 36.8; O2SAT 99
[2025-03-04] MEDS: Vitamin B Comp W-C Capsule 1 CAP PO (09:13)
[2025-03-04] MEDS: SEVELAMER CARBONATE 800 MG TABLET 2400 MG PO ×2 (09:13→12:31)
[2025-03-04] MEDS: APIXABAN 2.5 MG TABLET (WCH) PO (09:13)
[2025-03-04] MEDS: Cholecalciferol (Vit D3) 125 MCG CAPSULE (5,000 UNITS) PO (09:14)
--- NOTE | 2025-03-04 09:22 | TREXTCAR_ITS ---
Diet Diet Order/Speech Therapy: INPATIENT Hospital Diet / Speech Therapy Order(s) 03/02/25 13:40 Diet: Renal - ConsCHO - Eulogio Cont Food consistency:: Regular Liquid Consistency:: Regular/Thin Dietary Modifications:: Cardiac / Heart Healthy How many daily calories?: 2000 calorie Routine Orders/Code Status Routine Lab Work: CBC (Mondays) and BMP (Saturday) Code Status: Full Code DC O2, CPAP, BIPAP needs Home O2 Discharge instructions: No Wound(s) RT MEDIAL FOOT BELOW BIG TOE: Wound Type: Neuropathic/Diabetic Foot Ulcer Dressing Change: [place] suprapubic cath site: Wound Type: suprapubic cath coccyx: Wound Type: Pressure Injury Therapies Weight Bearing: Non weight bearing Extremity Affected:: Left Lower Physical Therapy: Eval and Treat Occupational Therapy: Eval and Treat Problem/Diagnosis (1) Catheter-associated urinary tract infection: Status: Acute Code(s): T83.511A - Infection and inflammatory reaction due to indwelling urethral catheter, initial encounter; N39.0 - Urinary tract infection, site not specified Plan: Suprapubic Catheter changed over on On IV meropenem Complicated by immunosuppressants with tacrolimus ID recommends plans for 2 more doses of IV ertapenem with dialysis on 03/05 and 03/08 UCx growing presumptive E. coli showing that it is ESBL sensitive to Unasyn, gen tamicin, meropenem, Macrobid and Zosyn and Bactrim. Plan Chronic condition * end-stage renal disease on dialysis: Next dialysis session will be the . Nephrology consult. Continue sevelamer * Diabetes mellitus type 2: Continue with glargine and sliding scale insulin. * VITO: Continue with CPAP at night. * Status post kidney transplant and subsequent failure. Still on tacrolimus. * Paraplegia * History of decubitus ulcers * Hypothyroidism: Continue with levothyroxine VTE prophylaxis: Not indicated patient already anticoagulation with apixaban. Disposition: to SNF today. Allergies/Procedures Done in Hospital Allergies No Known Allergies Allergy (Verified 02/19/25 14:26) Procedures: None Type of Care/Length of Stay Estimated LOS: Convalescent Care Less Than 30 days Type of Care Needed: Skilled Rehab Potential: Fair Prognosis: Fair Additional Orders/Day of Discharge Day of Discharge: 03/04/25 Dietary and Speech Recommendations Dietitian Recommendations/Changes: Will change diet to 2000 calorie; cardiac; renal. Will add Kalyan BID w/ medpass. Add PO Nepro carb steady if PO established inadequate at meals. Discharge Plan Admission Admit Date/Time: 03/01/25 23:08 Primary Reason for Your Visit: Catheter associated UTI Attending Provider: Ben Schwartz Primary Care Provider: Vanessa Hutchins Consulting Providers: Byron Ca; Jabari Medeiros; Ansley Peña Discharge Orders/Prescriptions Prescriptions: New ertapenem 1 gram recon soln 0.5 g IV DAILY Rx Instructions: 500mg IV ertapenem to be given with dialysis on 03/05/25 and 03/08/25. Dx: ESBL ecoli infection. Kalyan (with collagen) 7-7-1.5 gram Powder In Packet 1 packet PO BIDCM Qty: 0 0RF Continued clonidine HCl 0.2 mg tablet 0.2 mg PO BID dextrose [Glucose Gel] 40 % Gel 15 g PO Q15M PRN (Reason: HYPGLYCEMIA ) Rx Instructions: until symptoms of low blood sugar are controlled tacrolimus [Prograf] 1 mg Capsule 2 mg PO Q12H Senna Plus 8.6-50 mg Capsule 1 tab-cap PO BID sevelamer HCl 800 mg tablet 2,400 mg PO TIDCM Rx Instructions: must administer with a meal/food insulin lispro 100 unit/mL insulin pen 1 sliding scale dose subcut TIDCM Protocol: 6. Sliding Scale Insulin Custom Condition: 180-200 mg/dl range Dose/Route: 2 Number of Units Condition: 201-250 Dose/Route: 3 Condition: 251-300 Dose/Route: 4 Condition: 301-350 Dose/Route: 5 Condition: 351-400 Dose/Route: 6 Condition: 401-450 Dose/Route: 7 Condition: >451 Dose/Route: call MD Protocol Text: Custom Sliding Scale guaifenesin [Adult Tussin Chest Congestion] 100 mg/5 mL liquid 200 mg PO Q4H PRN (Reason: COUGH/CONGESTION ) Fleet Enema 19-7 gram/118 mL enema 118 ml MT DAILY PRN (Reason: constipation) insulin lispro 100 unit/mL solution 5 unit subcut TID Rx Instructions: HOLD FOR BS LESS THAN 120 insulin glargine [Lantus Solostar U-100 Insulin] 100 unit/mL (3 mL) insulin pen 8 unit subcut QPM Rx Instructions: afternoon glucagon HCl [Glucagon (HCl) Emergency Kit] 1 mg recon soln 1 mg IM Q20M PRN (Reason: HYPOGLYCEMIA ) hydralazine 50 mg Tablet 50 mg PO TID duloxetine 30 mg capsule,delayed release(DR/EC) 60 mg PO QHS mupirocin 2 % ointment 1 applic topical MOWEFR cholecalciferol (vitamin D3) 125 mcg (5,000 unit) capsule 125 mcg PO DAILY Eliquis 2.5 mg tablet 2.5 mg PO BID gabapentin 300 mg capsule 300 mg PO BID atorvastatin 40 mg tablet 40 mg PO DAILY calcitriol 0.5 mcg capsule 0.5 mcg PO MOWEFR carvedilol 25 mg tablet 50 mg PO BID levothyroxine 150 mcg tablet 150 mcg PO DAILY ivermectin 1 % cream topical QHS Rx Instructions: apply to face melatonin 3 mg capsule 9 mg PO QHS midodrine 10 mg tablet 10 mg PO DAILY PRN (Reason: hypotension) metronidazole 1 % gel 1 applic topical DAILY ondansetron HCl 4 mg tablet 4 mg PO Q8H PRN PRN (Reason: nausea and vomiting) pantoprazole 40 mg tablet,delayed release (DR/EC) 40 mg PO DAILY B zrllpan-E-khpys acid-Zn Tablet 1 tab PO DAILY Discontinued duloxetine 60 mg capsule,delayed release(DR/EC) 60 mg PO QHS Referrals / Follow Up: Vanessa Hutchins MD [Primary Care Provider] - Within 2 Weeks Disposition Disposition (needs filled in before D/C Order can be placed): Residential Facility
--- NOTE | 2025-03-04 09:30 | DS.PCM_ITS ---
Providers Date of Admission: 03/01/25 Primary Care Physician: Dr. 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 Routine Comment: Reason for Consult:: rt foot ulcer & colostomy 03/02/25 08:38 Consult: Nephrology Routine Consulting Provider: Ansley Peña Reason for Consult: dialysis EMERGENT Consult: No Notified: Yes Date Notified: 03/02/25 Time Notified: 08:38 Method of Notification: Text Reason For Visit: FEBRILLE ILLNESS Diagnosis Discharge Diagnosis (1) Catheter-associated urinary tract infection: Status: Acute Code(s): T83.511A - Infection and inflammatory reaction due to indwelling urethral catheter, initial encounter; N39.0 - Urinary tract infection, site not specified Plan: Suprapubic Catheter changed over on On IV meropenem Complicated by immunosuppressants with tacrolimus ID recommends plans for 2 more doses of IV ertapenem with dialysis on 03/05 and 03/08 UCx growing presumptive E. coli showing that it is ESBL sensitive to Unasyn, gentamicin, meropenem, Macrobid and Zosyn and Bactrim. Plan Chronic condition * end-stage renal disease on dialysis: Next dialysis session will be the . Nephrology consult. Continue sevelamer * Diabetes mellitus type 2: Continue with glargine and sliding scale insulin. * VITO: Continue with CPAP at night. * Status post kidney transplant and subsequent failure. Still on tacrolimus. * Paraplegia * History of decubitus ulcers * Hypothyroidism: Continue with levothyroxine VTE prophylaxis: Not indicated patient already anticoagulation with apixaban. Disposition: to SNF today. Medications at Discharge Home Medications dextrose 40 % oral gel (Glucose Gel) 15 g PO Q15M PRN HYPGLYCEMIA 01/02/23 sennosides 8.6 mg-docusate sodium 50 mg capsule (Senna Plus) 1 tab-cap PO BID CONSTIPATION 01/02/23 tacrolimus 1 mg capsule, immediate-release (Prograf) 2 mg PO Q12H IMMUNOSUPPRESIVE 01/02/23 sevelamer HCl 800 mg tablet 2,400 mg PO TIDCM ESRD 04/21/23 insulin lispro 100 unit/mL subcutaneous pen 1 sliding scale dose subcut TIDCM 03/22/24 guaifenesin 100 mg/5 mL oral liquid (Adult Tussin Chest Congestion) 200 mg PO Q4H PRN COUGH/CONGESTION 03/29/24 glucagon HCl 1 mg solution for injection (Glucagon (HCl) Emergency Kit) 1 mg IM Q20M PRN HYPOGLYCEMIA 04/13/24 hydralazine 50 mg tablet 50 mg PO TID BLOOD PRESSURE 04/13/24 sodium phosphates 19 gram-7 gram/118 mL enema (Fleet Enema) 118 ml NE DAILY PRN constipation 04/22/24 insulin glargine 100 unit/mL (3 mL) subcutaneous pen (Lantus Solostar U-100 Insulin) 8 unit subcut QPM DM 06/27/24 insulin lispro 100 unit/mL subcutaneous solution 5 unit subcut TID DM 06/27/24 apixaban 2.5 mg tablet (Eliquis) 2.5 mg PO BID KIDNEY DISEASE WITH HEART FAILURE 11/09/24 cholecalciferol (vitamin D3) 125 mcg (5,000 unit) capsule 125 mcg PO DAILY MALNUTRITION 11/09/24 duloxetine 30 mg capsule,delayed release 60 mg PO QHS major depressive disorder 11/09/24 gabapentin 300 mg capsule 300 mg PO BID PAIN 11/09/24 mupirocin 2 % topical ointment 1 applic topical MOWEFR WOUND TX 11/09/24 clonidine HCl 0.2 mg tablet 0.2 mg PO BID 02/19/25 B cqtelmn-T-cluaz acid-Zn tablet 1 tab PO DAILY 03/01/25 atorvastatin 40 mg tablet 40 mg PO DAILY 03/01/25 calcitriol 0.5 mcg capsule 0.5 mcg PO MOWEFR 03/01/25 carvedilol 25 mg tablet 50 mg PO BID 03/01/25 ivermectin 1 % topical cream applic topical QHS 03/01/25 levothyroxine 150 mcg tablet 150 mcg PO DAILY 03/01/25 melatonin 3 mg capsule 9 mg PO QHS 03/01/25 metronidazole 1 % topical gel 1 applic topical DAILY 03/01/25 midodrine 10 mg tablet 10 mg PO DAILY PRN hypotension 03/01/25 ondansetron HCl 4 mg tablet 4 mg PO Q8H PRN PRN nausea and vomiting 03/01/25 pantoprazole 40 mg tablet,delayed release 40 mg PO DAILY 03/01/25 ertapenem 1 gram solution for injection 0.5 g IV DAILY 2 doses 03/03/25 arginine 7 gram-glutam 7 gram-CaHMB 1.5 ntnd-gjoka-jc-min oral pwd pkt (Kalyan (with collagen)) 1 packet PO BIDCM #0 ea 03/04/25 Hospital Course Operations None Procedures Dialysis and - (midline placement) Summary of Care Provided Minutes Spent on Discharge: 35 Hospital Course: This is a 39-year-old male presents with catheter associated urinary tract infection. Catheter he has a suprapubic and that would address change clerk the day before prior to arrival. Patient was found to have an ESBL E. coli. Patient was on meropenem while he was here and to be discharged with ertapenem as dictated by infectious disease. Patient did have poor IV access and midline was placed in right upper extremity. Patient is on dialysis did have hemodialysis while he was here. Overall the patient is doing well and will be discharged back to his [facility] facility in stable condition. Weight / BMI Weight Weight: 130.1 kg Body Mass Index (BMI) 38.0 ABG / Lab / Microbiology Data 03/04/25 06:55 03/04/25 06:55 Laboratory: Laboratory Results - last 24 hr 03/03/25 12:01: POC Glucose 159 H 03/03/25 16:21: POC Glucose 156 H 03/03/25 21:39: POC Glucose 211 H 03/04/25 06:36: POC Glucose 185 H 03/04/25 06:55: WBC 7.9, RBC 3.02 L, Hgb 9.6 L, Hct 30.1 L, MCV 99.7 H, MCH 31.8, MCHC 31.9 L, RDW Std Deviation 49.2 H, RDW Coeff of Shanta 13.6, Plt Count 137 L, MPV 11.3, Immature Gran % (Auto) 0.600, Neut % (Auto) 49.9, Lymph % (Auto) 17.6 L, [place] % (Auto) 19.7 H, Eos % (Auto) 11.1 H, Baso % (Auto) 1.1 H, Absolute Neuts (auto) 3.9, Absolute Lymphs (auto) 1.38, Nucleated RBC % 0, Platelet Estimate SLT DEC, Sodium 133, Potassium 5.3 H, Chloride 95 L, Carbon Dioxide 24.9, Anion Gap 14, BUN 51 H, Creatinine 8.43 H*, Estim Creat Clear Calc 16.97 L, Est GFR (MDRD) Non-Af 8 L, BUN/Creatinine Ratio 6.1 L, Glucose 189 H, Calcium 9.3 Microbiology: Microbiology 03/01/25 21:00 Blood Culture (Wb) #2 - Right Hand Blood Culture - Preliminary No growth in 48 hours. 03/01/25 20:45 Blood Culture (Wb) - Right Hand Blood Culture - Preliminary No growth in 48 hours. 03/01/25 20:37 Urine Catheter - Catheter Urine Culture - Final Presumptive E. coli 03/01/25 20:35 Mucosa - Nose SARS-CoV-2, Influenza & RSV (PCR) - Final D/C Instructions DC O2, CPAP, BIPAP Needs Home O2 Discharge instructions: No Meaningful Use Info Meaningful Use Meaningful Use Diagnoses (Choose all that apply): None applicable Discharge Plan Admission Admit Date/Time: 03/01/25 23:08 Primary Reason for Your Visit: Catheter associated UTI Attending Provider: Ben Schwartz Primary Care Provider: Vanessa Hutchins Consulting Providers: Byron Ca; Jabari Medeiros; Ansley Peña Discharge Orders/Prescriptions Prescriptions: New ertapenem 1 gram recon soln 0.5 g IV DAILY Rx Instructions: 500mg IV ertapenem to be given with dialysis on 03/05/25 and 03/08/25. Dx: ESBL ecoli infection. Kalyan (with collagen) 7-7-1.5 gram Powder In Packet 1 packet PO BIDCM Qty: 0 0RF Continued clonidine HCl 0.2 mg tablet 0.2 mg PO BID dextrose [Glucose Gel] 40 % Gel 15 g PO Q15M PRN (Reason: HYPGLYCEMIA ) Rx Instructions: until symptoms of low blood sugar are controlled tacrolimus [Prograf] 1 mg Capsule 2 mg PO Q12H Senna Plus 8.6-50 mg Capsule 1 tab-cap PO BID sevelamer HCl 800 mg tablet 2,400 mg PO TIDCM Rx Instructions: must administer with a meal/food insulin lispro 100 unit/mL insulin pen 1 sliding scale dose subcut TIDCM Protocol: 6. Sliding Scale Insulin Custom Condition: 180-200 mg/dl range Dose/Route: 2 Number of Units Condition: 201-250 Dose/Route: 3 Condition: 251-300 Dose/Route: 4 Condition: 301-350 Dose/Route: 5 Condition: 351-400 Dose/Route: 6 Condition: 401-450 Dose/Route: 7 Condition: >451 Dose/Route: call MD Protocol Text: Custom Sliding Scale guaifenesin [Adult Tussin Chest Congestion] 100 mg/5 mL liquid 200 mg PO Q4H PRN (Reason: COUGH/CONGESTION ) Fleet Enema 19-7 gram/118 mL enema 118 ml NE DAILY PRN (Reason: constipation) insulin lispro 100 unit/mL solution 5 unit subcut TID Rx Instructions: HOLD FOR BS LESS THAN 120 insulin glargine [Lantus Solostar U-100 Insulin] 100 unit/mL (3 mL) insulin pen 8 unit subcut QPM Rx Instructions: afternoon glucagon HCl [Glucagon (HCl) Emergency Kit] 1 mg recon soln 1 mg IM Q20M PRN (Reason: HYPOGLYCEMIA ) hydralazine 50 mg Tablet 50 mg PO TID duloxetine 30 mg capsule,delayed release(DR/EC) 60 mg PO QHS mupirocin 2 % ointment 1 applic topical MOWEFR cholecalciferol (vitamin D3) 125 mcg (5,000 unit) capsule 125 mcg PO DAILY Eliquis 2.5 mg tablet 2.5 mg PO BID gabapentin 300 mg capsule 300 mg PO BID atorvastatin 40 mg tablet 40 mg PO DAILY calcitriol 0.5 mcg capsule 0.5 mcg PO MOWEFR carvedilol 25 mg tablet 50 mg PO BID levothyroxine 150 mcg tablet 150 mcg PO DAILY ivermectin 1 % cream topical QHS Rx Instructions: apply to face melatonin 3 mg capsule 9 mg PO QHS midodrine 10 mg tablet 10 mg PO DAILY PRN (Reason: hypotension) metronidazole 1 % gel 1 applic topical DAILY ondansetron HCl 4 mg tablet 4 mg PO Q8H PRN PRN (Reason: nausea and vomiting) pantoprazole 40 mg tablet,delayed release (DR/EC) 40 mg PO DAILY B dnremgn-E-gvklq acid-Zn Tablet 1 tab PO DAILY Discontinued duloxetine 60 mg capsule,delayed release(DR/EC) 60 mg PO QHS Referrals / Follow Up: Vanessa Hutchins MD [Primary Care Provider] - Within 2 Weeks Disposition Disposition (needs filled in before D/C Order can be placed): [facility]-Way Facility Charges/Coding Visit Charges Inpatient E&M: 09034 Disch Hosp >30min
--- NOTE | 2025-03-04 10:00 | PHA.DC.MR.R ---
Pharmacy [place] Med Reconciliation Pharmacy Service has performed discharge medication reconciliation for this patient. The patient's discharge medication list was reviewed for discrepancies and discrepancies were resolved. Medications at Discharge Home Medications dextrose 40 % oral gel (Glucose Gel) 15 g PO Q15M PRN HYPGLYCEMIA 01/02/23 sennosides 8.6 mg-docusate sodium 50 mg capsule (Senna Plus) 1 tab-cap PO BID CONSTIPATION 01/02/23 tacrolimus 1 mg capsule, immediate-release (Prograf) 2 mg PO Q12H IMMUNOSUPPRESIVE 01/02/23 sevelamer HCl 800 mg tablet 2,400 mg PO TIDCM ESRD 04/21/23 insulin lispro 100 unit/mL subcutaneous pen 1 sliding scale dose subcut TIDCM 03/22/24 guaifenesin 100 mg/5 mL oral liquid (Adult Tussin Chest Congestion) 200 mg PO Q4H PRN COUGH/CONGESTION 03/29/24 glucagon HCl 1 mg solution for injection (Glucagon (HCl) Emergency Kit) 1 mg IM Q20M PRN HYPOGLYCEMIA 04/13/24 hydralazine 50 mg tablet 50 mg PO TID BLOOD PRESSURE 04/13/24 sodium phosphates 19 gram-7 gram/118 mL enema (Fleet Enema) 118 ml LA DAILY PRN constipation 04/22/24 insulin glargine 100 unit/mL (3 mL) subcutaneous pen (Lantus Solostar U-100 Insulin) 8 unit subcut QPM DM 06/27/24 insulin lispro 100 unit/mL subcutaneous solution 5 unit subcut TID DM 06/27/24 apixaban 2.5 mg tablet (Eliquis) 2.5 mg PO BID KIDNEY DISEASE WITH HEART FAILURE 11/09/24 cholecalciferol (vitamin D3) 125 mcg (5,000 unit) capsule 125 mcg PO DAILY MALNUTRITION 11/09/24 duloxetine 30 mg capsule,delayed release 60 mg PO QHS major depressive disorder 11/09/24 gabapentin 300 mg capsule 300 mg PO BID PAIN 11/09/24 mupirocin 2 % topical ointment 1 applic topical MOWEFR WOUND TX 11/09/24 clonidine HCl 0.2 mg tablet 0.2 mg PO BID 02/19/25 B qmhmzpj-O-xigtw acid-Zn tablet 1 tab PO DAILY 03/01/25 atorvastatin 40 mg tablet 40 mg PO DAILY 03/01/25 calcitriol 0.5 mcg capsule 0.5 mcg PO MOWEFR 03/01/25 carvedilol 25 mg tablet 50 mg PO BID 03/01/25 ivermectin 1 % topical cream applic topical QHS 03/01/25 levothyroxine 150 mcg tablet 150 mcg PO DAILY 03/01/25 melatonin 3 mg capsule 9 mg PO QHS 03/01/25 metronidazole 1 % topical gel 1 applic topical DAILY 03/01/25 midodrine 10 mg tablet 10 mg PO DAILY PRN hypotension 03/01/25 ondansetron HCl 4 mg tablet 4 mg PO Q8H PRN PRN nausea and vomiting 03/01/25 pantoprazole 40 mg tablet,delayed release 40 mg PO DAILY 03/01/25 ertapenem 1 gram solution for injection 0.5 g IV DAILY 2 doses 03/03/25 arginine 7 gram-glutam 7 gram-CaHMB 1.5 uofi-hnonx-rm-min oral pwd pkt (Kalyan (with collagen)) 1 packet PO BIDCM #0 ea 03/04/25
--- NOTE | 2025-03-04 10:27 | CASEMGMT ---
Addendum entered by Natalia Stevens 03/04/25 10:33: N2N # provided to the pt's RN at this time. Original Note: Discharge Planning Discharge orders, signed med list, and transport time sent to [facility]. Physicians will transport pt by cot at 1:30p. Reasons for cot include; telma lift and bedbound at baseline, and paraplegia. Nursing, RN CM, pt, and his sister (Rudy) updated. Selina Sylvester DC Planning Asst.
--- NOTE | 2025-03-04 10:53 | NURSING ---
Report called to [facility] at [facility] [phone]. Pt to be picked up at 13:30.
[2025-03-04 14:13] VITALS: BP 134/51; PULSE 68; RESP 18; TEMP 36.6; O2SAT 98
== END 2025-03-04 14:29 | disposition skilled nursing facility (03) | DRG 698 ==
LOC: ED 22:24 → MS3 23:01
PROVIDERS: Admitting Provider Family Medicine; Emergency Provider Emergency Medicine; PCP Internal Medicine
DX: T83.518A Infection and inflammatory reaction due to other urinary catheter, initial encounter (principal); N18.6 End stage renal disease; I12.0 Hypertensive chronic kidney disease with stage 5 chronic kidney disease or end stage renal disease; G82.22 Paraplegia, incomplete; Z94.0 Kidney transplant status; N39.0 Urinary tract infection, site not specified; L89.159 Pressure ulcer of sacral region, unspecified stage; D63.1 Anemia in chronic kidney disease; E11.22 Type 2 diabetes mellitus with diabetic chronic kidney disease; F32.A Depression, unspecified; E03.9 Hypothyroidism, unspecified; Z89.512 Acquired absence of left leg below knee; L97.519 Non-pressure chronic ulcer of other part of right foot with unspecified severity; Z93.3 Colostomy status; Z99.2 Dependence on renal dialysis; F41.9 Anxiety disorder, unspecified; Z79.4 Long term (current) use of insulin; K21.9 Gastro-esophageal reflux disease without esophagitis; E78.5 Hyperlipidemia, unspecified; G47.33 Obstructive sleep apnea (adult) (pediatric); E11.621 Type 2 diabetes mellitus with foot ulcer; E87.5 Hyperkalemia; B96.20 Unspecified Escherichia coli [E. coli] as the cause of diseases classified elsewhere; G89.29 Other chronic pain; Y84.6 Urinary catheterization as the cause of abnormal reaction of the patient, or of later complication, without mention of misadventure at the time of the procedure; Z86.711 Personal history of pulmonary embolism; Z86.19 Personal history of other infectious and parasitic diseases; Z79.899 Other long term (current) drug therapy; Z79.890 Hormone replacement therapy; Z86.718 Personal history of other venous thrombosis and embolism
CPT/HCPCS: 36415; 80048; 80053; 81001; 82962; 83605; 84443; 85025; 85610; 85730; 87040; 87086; 87088; 87186; 87631; 90937; 97802; 99285; J2185; A4216; G0257

== ENCOUNTER → 2025-03-16 | Outpatient (REF) | payer MEDICARE, MEDICAID, SELFPAY ==
[2025-03-16 09:26] LABS: Hematocrit 29.9 % (40-54); Hemoglobin 9.6 g/dL (13.0-16.5); Mean Corp Hgb Conc 32.1 g/dL (32-36); Mean Corpuscular Volume 99.3 fL (80-94); Mean Platelet Vol. 10.6 fl (6.2-12.0); Platelet Count 171 K/mm3 (150-450); RBC Distribution Width CV 13.8 % (11.6-14.6); RBC Distribution Width SD 49.6 fl (35.1-43.9); Red Blood Count 3.01 M/mm3 (4.6-6.2); White Blood Count 6.4 K/mm3 (4.4-11.0)
[2025-03-16 09:40] LABS: Anion Gap 13 (5-15); BUN 65 mg/dL (4-19); BUN/Creat Ratio 8.8 RATIO (10-20); Calcium,Total 8.8 mg/dL (7.6-11.0); Carbon Dioxide 27.3 mmol/L (21.0-32.0); Chloride 98 mmol/L (98-108); Glucose 190 mg/dL (70-99); Potassium 4.9 mmol/L (3.3-5.1)
== END ==
LOC: OLS.SW 07:35
PROVIDERS: PCP Internal Medicine; Visit Provider Family Medicine
DX: N18.6 End stage renal disease (principal); N39.0 Urinary tract infection, site not specified
CPT/HCPCS: 36415; 80048; 85027

== ENCOUNTER → 2025-03-23 | Outpatient (REF) | payer MEDICARE, MEDICAID, SELFPAY ==
[2025-03-23 08:16] LABS: Hematocrit 29.0 % (40-54); Hemoglobin 9.8 g/dL (13.0-16.5); Mean Corp Hgb Conc 33.8 g/dL (32-36); Mean Corpuscular Volume 97.6 fL (80-94); Mean Platelet Vol. 11.6 fl (6.2-12.0); Platelet Count 143 K/mm3 (150-450); RBC Distribution Width CV 13.8 % (11.6-14.6); RBC Distribution Width SD 49.3 fl (35.1-43.9); Red Blood Count 2.97 M/mm3 (4.6-6.2); White Blood Count 5.2 K/mm3 (4.4-11.0)
[2025-03-23 08:28] LABS: Anion Gap 13 (5-15); BUN 57 mg/dL (4-19); BUN/Creat Ratio 7.9 RATIO (10-20); Calcium,Total 8.5 mg/dL (7.6-11.0); Carbon Dioxide 28.2 mmol/L (21.0-32.0); Chloride 96 mmol/L (98-108); Glucose 263 mg/dL (70-99); Potassium 4.9 mmol/L (3.3-5.1)
== END ==
LOC: OLS.SW 04:00
PROVIDERS: PCP Internal Medicine; Referring Provider Family Medicine; Visit Provider Family Medicine
DX: N39.0 Urinary tract infection, site not specified (principal)
CPT/HCPCS: 36415; 80048; 85027; 85652

== ENCOUNTER → 2025-03-30 | Outpatient (REF) | payer MEDICARE, MEDICAID, SELFPAY ==
[2025-03-30 08:35] LABS: Hematocrit 31.3 % (40-54); Hemoglobin 10.0 g/dL (13.0-16.5); Mean Corp Hgb Conc 31.9 g/dL (32-36); Mean Corpuscular Volume 98.7 fL (80-94); Mean Platelet Vol. 11.4 fl (6.2-12.0); Platelet Count 130 K/mm3 (150-450); RBC Distribution Width CV 13.7 % (11.6-14.6); RBC Distribution Width SD 50.2 fl (35.1-43.9); Red Blood Count 3.17 M/mm3 (4.6-6.2); White Blood Count 6.4 K/mm3 (4.4-11.0)
[2025-03-30 09:02] LABS: Anion Gap 14 (5-15); BUN 61 mg/dL (4-19); BUN/Creat Ratio 7.5 RATIO (10-20); Calcium,Total 8.9 mg/dL (7.6-11.0); Carbon Dioxide 28.2 mmol/L (21.0-32.0); Chloride 96 mmol/L (98-108); Glucose 179 mg/dL (70-99); Potassium 5.0 mmol/L (3.3-5.1)
== END ==
LOC: OLS.SW 05:00
PROVIDERS: PCP Internal Medicine; Visit Provider Family Medicine
DX: N18.6 End stage renal disease (principal); N39.0 Urinary tract infection, site not specified
CPT/HCPCS: 36415; 80048; 85027

== ENCOUNTER → 2025-04-06 | Outpatient (REF) | payer MEDICARE, MEDICAID, SELFPAY ==
--- OUTSIDE RECORDS SUMMARY | 2025-03-09 12:34 | XMS RPT_ITS ---
Author Name Auto Generated Organization OHIP Care Team Providers Care Tack Puller Machine Name Role Phone PERES, LANG P Primary Care Unavailable KAILEY ERNANDEZ Attending Unavailable MUNIR BURTON Referring Unavailable PERES, LANG P Primary Care Unavailable ANDERSON SWANSON Attending Unavailable PERES, LANG P Primary Care Unavailable MUNIR BURTON P Attending Unavailable PERES, LANG P Primary Care Unavailable PERES, LANG P Primary Care Unavailable ALEN, MUNIR P Referring Unavailable PERES, LANG P Primary Care Unavailable ALEN, MUNIR P Attending Unavailable ALEN MUNIR P Referring Unavailable PERES, LANG P Primary Care Unavailable ALEN, MUNIR P Referring Unavailable PERES, LANG P Primary Care Unavailable PERES, LANG P Primary Care Unavailable OSCAR CHOWDHURY Admitting Unavailable ROWAN BALDERRAMA Attending Unavailable DANIEL DIOP Referring Unavailable PERES, LANG P Primary Care Unavailable PERES, LANG P Primary Care Unavailable PERES, LANG P Primary Care Unavailable KAILEY ERNANDEZ Attending Unavailable MUNIR BURTON P Referring Unavailable PERES, LANG P Primary Care Unavailable ALEN, MUNIR P Attending Unavailable ALEN, MUNIR P Referring Unavailable PERES, LANG P Primary Care Unavailable ANDERSON SWANSON M Attending Unavailable PERES, LANG P Primary Care Unavailable JENNY TOVAR Attending Unavailable PERES, LANG P Primary Care Unavailable ALEN, MUNIR P Attending Unavailable ALEN, MUNIR P Admitting Unavailable PERES, LANG P Primary Care Unavailable ANDERSON SWANSON M Attending Unavailable ANDERSON SWANSON M Admitting Unavailable PERES, LANG P Primary Care Unavailable SALGADO, CARRIE Attending Unavailable SALGADO, CARRIE Admitting Unavailable SELF, SELF Referring Unavailable AHMED, EMILY Primary Care Unavailable ALEBRACHUYITAM MUSAB M Attending Unavailable AHMED, EMILY Primary Care Unavailable RENA, FRIDA Attending Unavailable SELF, SELF Referring Unavailable AHMED, EMILY Primary Care Unavailable RENA, FRIDA Attending Unavailable SELF, SELF Referring Unavailable PROBLEMS DATE TYPE CONDITION / CODE ATTENDING STATUS [facility] 07/28/2024 Active 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, left eye (HCC) / E10.3542(ICD-10) KAILEY ERNANDEZ Active [facility] 07/28/2024 Active Type 1 diabetes mellitus with proliferative retinopathy of both eyes without macular edema (HCC) / E10.3593(ICD-10) KAILEY ERNANDEZ Active [facility] 03/09/2025 Active Nuclear scleroti c cataract, left / H25.12(ICD-10) KAILEY ERNANDEZ Active [facility] 03/09/2025 Active Pseudophakia of right eye / Z96.1(ICD-10) KAILEY ERNANDEZ Active [facility] 10/09/2024 Active Neurogenic bladd er / N31.9(ICD-10) JENNY TOVAR Active [facility] 06/16/2024 Active ESRD on dialysis (HCC) / N18.6(ICD-10) JENNY TOVAR Active [facility] 06/16/2024 Active ESRD on dialysis (HCC) / Z99.2(ICD-10) JENNY TOVAR Active [facility] 02/23/2025 Active Presence of suprapubic catheter (HCC) / Z93.59(ICD-10) JENNY TOVAR Active [facility] 02/23/2025 Active Encounter for fitting and adjustment of urinary device / Z46.6(ICD-10) LA JENNY Active [facility] 02/23/2025 Active Penile erosion / N48.89(ICD-10) JENNY TOVAR Active [facility] 02/16/2025 Active Pseudophakia / Z96.1(ICD-10) OSMANYJESSICA ANDERSON M Active [facility] 02/16/2025 Active History of detac hed retina repair / Z98.890(ICD-10) SKY ANDERSON M Active [facility] 02/16/2025 Active History of detac hed retina repair / Z86.69(ICD-10) SKY ANDERSON M Active [facility] 12/04/2024 Active Hyperkalemia / E87.5(ICD-10) [facility] Active [facility] 12/04/2024 Active Dialysis patient / Z99.2(ICD-10) [facility], [facility] Active [facility] 12/02/2024 Active Electrolyte diso rder / E87.8(ICD-10) [facility] 10/15/2024 Active Hx of left BKA ( HCC) / Z89.512(ICD-10) [facility] 06/15/2024 Active Paraplegia (HCC) / G82.20(ICD-10) [facility] Active [facility] 12/02/2024 Active Total, mature se nile cataract / H25.89(ICD-10) MUNIR BURTON [facility] 11/17/2024 Admitting diagnosis End stage renal disease / N18.6(ICD-10) SCOTT DIETZ Active [facility] 11/17/2024 Admitting diagnosis Encounter for other preprocedural examination / Z01.818(ICD-10) FRIDA CHASE Active [facility] 11/17/2024 Admitting diagnosis Encounter for screening for other viral diseases / Z11.59(ICD-10) FRIDA CHASE Active [facility] 11/17/2024 Admitting diagnosis Abnormal finding of blood chemistry, unspecified / R79.9(ICD-10) OSMAR CHASEO Active [facility] 11/05/2024 Active Consult / UNK(Unknown) NA Active [facility] 10/15/2024 Active Pericardial effu yordan (HCC) / I31.39(ICD-10) NA Active [facility] 06/15/2024 Active Kidney transplan t status / Z94.0(ICD-10) CARRIE SALGADO Active [facility] 06/15/2024 Active Type 2 diabetes mellitus with polyneuropathy (HCC) / E11.42(ICD-10) CARRIE SALGADO Active [facility] 06/15/2024 Active Hypertension, unspecified type / I10(ICD-10) CARRIE SALGADO Active [facility] 06/15/2024 Active Elevated troponi n / R79.89(ICD-10) CARRIE SALGADO Active [facility] 06/15/2024 Active Senile nuclear cataract, right / H25.11(ICD-10) ANDERSON SWANSON Active [facility] PROCEDURES No Procedure Records Found RESULTS PROGRESS Observed: 03/09/2025 1:15 PM Status: COMPLETED Source: [facility] HNO ID: [id number] Author: KAILEY ERNANDEZ PA-C Service: ? Author Type: Physician Mineral Engineer Type: Progress Notes Filed: 03/09/2025 13:59 Note Text: All problems with bold in text below addressed at this visit with patient 1. POM#3 s/p CE/PCIOL, PPV/EL/Afx OD 12/02/24 (Alen/Ti) - Previous RD repair with SO 2019 per patient OS - Patient was previously admitted to hospital after surgery for hyperkalemia - Previously evaluated for POD1 visit with press operator carbon products resident and fellow - Completed all post op drops - Remains stable on imaging and exam - [facility] stable 20/50 - IOP good 18 - Call with changes in vision - Monitor - Follow up with Dr. Burton in 2 months 2. Type 1 diabetes mellitus with PDR OS - Emphasized importance of tight blood sugar control - Continue close follow up with PCP/pumping station supervisor - [facility] stable NLP - Monocular precautions discussed - Continue to monitor 3. Pseudophakia OD - Holding on yag cap for now per Dr. Swanson - Tyron, monitor 4. Cataract OS - Stable, monitor I have seen and examined this patient. I have confirmed and edited as necessary the relevant HPI, ophthalmic history, medications, ROS, and the neuro and ophthalmic exam findings as obtained by others and myself. I have discussed the case and the management of this patient's care with the attending Physician, if applicable. I also have reviewed and agree with the assessment and plan as stated above and agree with all of its relevant components. I have discussed the treatment alternatives with the patient and the patient's family, if applicable. Follow-up as noted below, or sooner if new symptoms develop. PROGRESS Observed: 02/23/2025 8:26 AM Status: COMPLETED Source: [facility] HNO ID: [id number] Author: JENNY TOVAR PA-C Service: ? Author Type: Physician Mineral Engineer Type: Progress Notes Filed: 02/23/2025 08:36 Note Text: [facility] NEW PATIENT CLINIC NOTE (M) Note was generated by [employer] and edited as appropriate SERVICE DATE: February 23, 2025 NAME: China Guillen GENDER: male CHIEF COMPLAINT: The patient is a 39-year-old male with a history of suprapubic catheter, presenting for an annual wellness visit. HISTORY OF PRESENT ILLNESS: The patient is a 39-year-old male with a history of suprapubic catheter, presenting for an annual wellness visit. Annual Wellness Exam: - Resides at [facility]. - Undergoing dialysis. Suprapubic Catheter: - Suprapubic catheter changed monthly on the by nursing staff at residence. - Reports drainage around the catheter site; denies pain during catheter changes. - Urine in the bag is usually clear. - Denies fever or chills. - Inquires about odor from the catheter. - Previous bladder spasms in November, described as cramping in the abdomen, not at the catheter site; symptoms have improved. LABS: No results found for: PSA No results found for: TESTOST Hematocrit (%) Date Value 12/05/2024 35.1 12/04/2024 35.1 12/03/2024 36.3 11/27/2021 35.0 11/27/2021 34.8 11/24/2021 35.5 No results found for: PSA Creatinine Date Value Ref Range Status 12/05/2024 6.60 (H) 0.73 - 1.22 mg/dL Final 12/04/2024 7.90 (H) 0.73 - 1.22 mg/dL Final 12/03/2024 7.26 (H) 0.73 - 1.22 mg/dL Final MEDICATIONS: bisacodyl (DULCOLAX) 10 mg supp10 mg by RECTAL route once daily as needed for constipation.Disp: Rfl: DULoxetine DR (CYMBALTA) 60 mg capsuleTake 60 mg by mouth once daily.Disp: Rfl: apixaban (ELIQUIS) 2.5 mg tab(s)Take by mouth two times a day.Disp: Rfl: sodium phosphate,mono-dibasic (FLEET ENEMA UT)by RECTAL route.Disp: Rfl: dextrose (GLUCOSE GEL PO)Take by mouth.Disp: Rfl: magnesium hydroxide (MILK OF MAGNESIA PO)Take by mouth.Disp: Rfl: (Patient taking differently: Take 30 mL by mouth as needed.) Calcium-Cholecalciferol, D3, 500 mg-3.125 mcg (125 unit) tabTake 1 tablet by mouth once daily.Disp: Rfl: calcitriol (ROCALTROL) 0.5 mcg capsuleTake by mouth. Every Saturday, Saturday, and saturdayDisp: Rfl: gabapentin (NEURONTIN) 100 mg capsuleDisp: Rfl: (Patient taking differently: Take 300 mg by mouth two times a day.) sevelamer carbonate (RENVELA) 800 mg tabletTake 3 tablets by mouth three times a day with meals.Disp: Rfl: cloNIDine HCl (CATAPRES) 0.2 mg tabletTake 1 tablet by mouth two times a day.Disp: Rfl: tacrolimus IR (PROGRAF) 1 mg capsuleTake 2 capsules by mouth two times a day.Disp: Rfl: acetaminophen (TYLENOL) 325 mg tabletTake 650 mg by mouth every 4 hours as needed for pain or fever (specify temp.).Disp: Rfl: nystatin (MYCOSTATIN) powderApply to groin and abdominal folds topically every 12 hours as needed for skin irritationDisp: Rfl: b complex, c, folic acid 1 mg renal vitamins (RENAL CAPS) 1 mg capsuleTake 1 capsule by mouth once daily.Disp: Rfl: OXYGEN, HOME THERAPY,2 L/min by Nasal Cannula route as directed. To keep sats >% - LPM via NC to maintain pulse ox above 92% as needed if patient has shortness of breath or s/sx ofDisp: Rfl: melatonin 3 mg tabletTake 9 mg by mouth daily at bedtime.Disp: Rfl: glucagon (GLUCAGEN) 1 mg injectionInject 1 mg intramuscularly as needed. For symptomatic hypoglycemia not responsive to oral intervention. Notify MEAT CUTTER/MDDisp: Rfl: senna-docusate (SENNA PLUS) 8.6-50 mg per tabletTake 1 tablet by mouth two times a day.Disp: Rfl: polyethylene glycol 3350 17 gram packetTake 1 Packet by mouth once daily as needed. Dissolve dose in 4 - 8 ounces of liquid and take as directed.Disp: 30 PacketRfl: 0 ondansetron (ZOFRAN) 4 mg tabletTake 4 mg by mouth every 8 hours as needed for nausea/vomiting. 4 MG by mouth every six hours as neededDisp: Rfl: hydrALAZINE (APRESOLINE) 50 mg tabletTake 50 mg by mouth three times a day.Disp: Rfl: pantoprazole DR (PROTONIX) 40 mg tabletTake 40 mg by mouth once daily.Disp: Rfl: carvedilol (COREG) 25 mg tabletTake 50 mg by mouth two times a day with meals.Disp: Rfl: insulin lispro (ADMELOG) 100 unit/mL injectionInject 5 Units subcutaneously three times a day before meals. In addition to sliding scale if B-200 = 2 units 201-250 = 3 units 251-300 = 4 units 301-350 = 5 units 351-400 = 6 units 401-450 = 7 untisDisp: Rfl: levothyroxine (SYNTHROID) 150 mcg tabletTake 150 mcg by mouth daily before breakfast.Disp: Rfl: atorvastatin (LIPITOR) 40 mg tabletTake 40 mg by mouth daily at bedtime.Disp: Rfl: calcium carbonate (ANTACID, CALCIUM CARBONATE,) 500 mg chewTake by mouth.Disp: Rfl: folic acid/vit B complex and C (RENAL MULTIVITAMIN FORMULA ORAL)Take by mouth.Disp: Rfl: DULoxetine (CYMBALTA) 30 mg capsuleDisp: Rfl: prednisoLONE acetate (PRED FORTE) 1 % ophthalmic suspensionUse 1 Drop in the right eye as directed. FOUR (4) TIMES FOR 1 WEEK, THREE (3) TIMES FOR 1 WEEK, THEN TW0 (2) TIMES A DAY FOR 1 WEEK, THEN ONE (1) TIME DAILY FOR 1 WEEK AND THEN STOPDisp: 5 mLRfl: 2 cyclopentolate (CYCLOGYL) 1 % ophthalmic solutionUse 1 Drop in the right eye two times a day.Disp: 5 mLRfl: 0 hydrOXYzine HCl (ATARAX) 25 mg tabletTake 1 tablet by mouth every 6 hours as needed for itching/rash.Disp: Rfl: diphenhydrAMINE-Zinc Acetate (ANTI-ITCH,DIPHENHYD, WITH ZINC) creamApply to affected area three times a day as needed for itching/rash.Disp: Rfl: menthol (BIOFREEZE, MENTHOL,) 4 % topical gelApply to bilateral shoulders ever morning and at bedtimeDisp: Rfl: Ciclopirox (CICLODAN) 8 % solutionApply to affected area daily at bedtime. (For nail fungus)Disp: Rfl: Ascorbic Acid 500 mg chewTake 500 mg by mouth once daily.Disp: Rfl: apixaban (ELIQUIS) 2.5 mg tab(s)Take 2.5 mg by mouth two times a day.Disp: Rfl: LANTUS U-100 INSULIN 100 unit/mL injectionInject 8 Units subcutaneously every afternoon.Disp: Rfl: dextrose (GLUCOSE GEL ORAL)Give one dose by mouth as needed for hypoglycemic episodeDisp: Rfl: epoetin jacki 10,000 unit/mL injectionInject 1 mL subcutaneously 3 Times weekly with dialysis.Disp: 12 mLRfl: 1 escitalopram oxalate (LEXAPRO) 20 mg tabletTake 20 mg by mouth once daily.Disp: Rfl: PAST MEDICAL HISTORY: PAST MEDICAL HISTORY Diagnosis Date Acquired absence of left leg above knee (HCC) Acquired absence of other right toe(s) (HCC) Acute infarction of spinal cord (HCC) Acute kidney failure, unspecified Acute osteomyelitis of left ankle or foot (HCC) Acute pulmonary edema (HCC) Anemia Anemia in chronic kidney disease (CKD) Background diabetic macular edema (DME) ([facility]) Body mass index 40.0-44.9, adult ([facility]) Cataracts, bilateral Cerebral infarction due to unspecified occlusion or stenosis of unspecified cerebral artery ([facility]) Chronic kidney disease (CKD), stage IV (severe) ([facility]) Chronic systolic (congestive) heart failure ([facility]) Congestive heart failure (CHF) ([facility]) Dependence on renal dialysis Depression Diabetes mellitus with chronic kidney disease ([facility]) End stage renal disease ([facility]) ESRD (end stage renal disease) ([facility]) Essential hypertension GERD (gastroesophageal reflux disease) Heart failure ([facility]) HLD (hyperlipidemia) Hyperkalemia Hyperlipidemia Hypertension Hypertensive heart and chronic kidney disease with heart failure and stage 1 through stage 4 chronic kidney disease, or chronic kidney disease ([facility]) Hypo-osmolality and hyponatremia Hypomagnesemia Hypothyroidism Insomnia Insomnia Kidney transplant failure ([facility]) Kidney transplant status ([facility]) FPC current use of insulin ([facility]) Major depressive disorder, recurrent, unspecified Mood disorder Morbid (severe) obesity due to excess calories ([facility]) Muscle weakness Neurogenic bowel Neurogenic bowel, not elsewhere classified Neuromuscular dysfunction of bladder Neuromuscular dysfunction of bladder Neuropathy Non-pressure chronic ulcer of other part of unspecified foot with unspecified severity ([facility]) Obstructive sleep apnea Osteomyelitis of vertebra, sacral and sacrococcygeal region ([facility]) Other disorders of phosphorus metabolism Other idiopathic peripheral autonomic neuropathy Other pericardial effusion (noninflammatory) ([facility]) Other pulmonary embolism without acute cor pulmonale, unspecified chronicity ([facility]) Paraplegia ([facility]) Paraplegia, incomplete ([facility]) PDR (proliferative diabetic retinopathy) ([facility]) PDR (proliferative diabetic retinopathy) ([facility]) Penile erosion 04/23/2023 Pressure ulcer of ischium, stage 4 ([facility]) Pressure ulcer of left buttock, unspecified stage 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 Right foot ulcer ([facility]) Sepsis ([facility]) T1DM (type 1 diabetes mellitus) ([facility]) Total, mature age-related cataract Type 2 diabetes ([facility]) Unspecified protein-calorie malnutrition ([facility]) UTI (urinary tract infection) Vitamin D deficiency PAST SURGICAL HISTORY: PAST SURGICAL HISTORY Procedure Laterality Date COLOSTOMY PROCEDURE Right 12/02/2024 REPAIR RETINAL DETACHMENT 20G W/VITRECTOMY ANY METHOD - Right with Munir Burton MD on 12/02/2024 SUPRAPUBIC TUBE PLACEMENT 02/27/2024 TRANSPLANTATION OF KIDNEY WOUND DEBRIDEMENT HX 4 times of the wound FAMILY HISTORY: FAMILY HISTORY Problem Relation Age of Onset No Known Problems Father Diabetes Mother No Known Problems Sister No Known Problems Brother No Known Problems Maternal Grandmother No Known Problems Maternal Grandfather No Known Problems Paternal Grandmother Cancer Paternal Grandfather Cancer Other Glaucoma Other Cataract Other Detached Retina No Family History Macular Degen No Family History Blindness No Family History Hypertension No Family History Heart No Family History SOCIAL HISTORY: Social Connections: Not on file REVIEW OF SYSTEMS: Constitutional: (-) fever, (-) chills Genitourinary: (+) malodorous urine, (-) suprapubic catheter site pain, (-) bladder spasms PHYSICAL EXAMINATION: Temperature 36.4 ?C (97.6 ?F), temperature source Temporal. General: Alert AND oriented, no acute distress Skin: Normal HEENT: Pupils equal, round. Oral cavity, oropharynx clear Neck: Supple, no mass Breast: Deferred Respiratory: Clear to auscultation, bilaterally Cardiovascular: Regular rate and rhythm, no murmurs, rubs, or gallops Abdomen: Soft, non-tender, non-distended, no masses palpable, no hepatosplenomegaly, normal bowel sounds. Suprapubic catheter in place with minimal drainage around insertion site, no erythema or purulent discharge Genitourinary: Deferred MSK: Back is non-tender Extremities: No clubbing, cyanosis, or edema PROBLEM LIST REVIEW: Yes LABS: SPT in place PROCEDURES: SPT in place ASSESSMENT/PLAN: 1. Neurogenic bladder (N31.9) 2. Presence of suprapubic catheter (HCC) (Z93.59) 3. Encounter for fitting and adjustment of urinary device (Z46.6) - Suprapubic catheter managed at [facility] with monthly changes on the . No pain during catheter changes; urine is clear. No fever or chills reported. Minimal drainage around the catheter site is normal due to slight movement of the tube. Educated patient on signs of infection, including increased drainage, pus, fever, and chills. Advised to report any significant changes to nursing staff. Follow-up in one year or sooner if issues arise. 4. ESRD on dialysis (HCC) (N18.6) - Patient is on dialysis. Continue current dialysis regimen. > 1 year Appt w/ B. PATRICIA Tovar, [place], PA-C , > Continue with SPT exchanges monthly with [facility] Nursing staff Patient Instructions (AVS) - printed for patient - Continue monthly suprapubic catheter changes by the nursing staff at your residence (typically on the 15th of each month). - Expect some mild crusting or odor around the insertion site; this is normal and not a sign of infection if you have no fever, chills, pain, or other symptoms. - Keep the area around the catheter clean and the 4x4 [address]; if the dressing becomes saturated or you notice redness, swelling, increased pain, fluid buildup under the dressing, or any pus, contact your care team right away. - Bring this note to the front desk manager to schedule or confirm your next catheter change appointments as needed. - Return for your annual follow-up in one year, or sooner if you develop any concerns or symptoms. PATRICIA Callahan, CHERISE, JOSE CNOV Observed: 02/23/2025 8:00 AM Status: COMPLETED Source: [facility] Office Visit (UROLWS) CHINA GUILLEN ([id number]) 1985 M Date Time Provider Department 02/23/25 8:00 AM JENNY TOVAR During your visit today, we recorded the following information about you: Temperature 97.6 degrees Jenny Tovar PA-C 02/23/2025 8:36 AM Signed [facility] PATIENT CLINIC NOTE (M) Note was generated by [employer] and edited as appropriate SERVICE DATE: February 23, 2025 NAME: China Herrera Wilmer GENDER: male CHIEF COMPLAINT: The patient is a 39-year-old male with a history of suprapubic catheter, presenting for an annual wellness visit. HISTORY OF PRESENT ILLNESS: The patient is a 39-year-old male with a history of suprapubic catheter, presenting for an annual wellness visit. Annual Wellness Exam: - Resides at [facility]. - Undergoing dialysis. Suprapubic Catheter: - Suprapubic catheter changed monthly on the by nursing staff at residence. - Reports drainage around the catheter site; denies pain during catheter changes. - Urine in the bag is usually clear. - Denies fever or chills. - Inquires about odor from the catheter. - Previous bladder spasms in November, described as cramping in the abdomen, not at the catheter site; symptoms have improved. LABS: No results found for: PSA No results found for: TESTOST Hematocrit (%) Date Value 12/05/2024 35.1 12/04/2024 35.1 12/03/2024 36.3 11/27/2021 35.0 11/27/2021 34.8 11/24/2021 35.5 No results found for: PSA Creatinine Date Value Ref Range Status 12/05/2024 6.60 (H) 0.73 - 1.22 mg/dL Final 12/04/2024 7.90 (H) 0.73 - 1.22 mg/dL Final 12/03/2024 7.26 (H) 0.73 - 1.22 mg/dL Final MEDICATIONS: bisacodyl (DULCOLAX) 10 mg supp10 mg by RECTAL route once daily as needed for constipation.Disp: Rfl: DULoxetine DR (CYMBALTA) 60 mg capsuleTake 60 mg by mouth once daily.Disp: Rfl: apixaban (ELIQUIS) 2.5 mg tab(s)Take by mouth two times a day.Disp: Rfl: sodium phosphate,mono-dibasic (FLEET ENEMA UT)by RECTAL route.Disp: Rfl: dextrose (GLUCOSE GEL PO)Take by mouth.Disp: Rfl: magnesium hydroxide (MILK OF MAGNESIA PO)Take by mouth.Disp: Rfl: (Patient taking differently: Take 30 mL by mouth as needed.) Calcium-Cholecalciferol, D3, 500 mg-3.125 mcg (125 unit) tabTake 1 tablet by mouth once daily.Disp: Rfl: calcitriol (ROCALTROL) 0.5 mcg capsuleTake by mouth. Every Saturday, Saturday, and saturdayDisp: Rfl: gabapentin (NEURONTIN) 100 mg capsuleDisp: Rfl: (Patient taking differently: Take 300 mg by mouth two times a day.) sevelamer carbonate (RENVELA) 800 mg tabletTake 3 tablets by mouth three times a day with meals.Disp: Rfl: cloNIDine HCl (CATAPRES) 0.2 mg tabletTake 1 tablet by mouth two times a day.Disp: Rfl: tacrolimus IR (PROGRAF) 1 mg capsuleTake 2 capsules by mouth two times a day.Disp: Rfl: acetaminophen (TYLENOL) 325 mg tabletTake 650 mg by mouth every 4 hours as needed for pain or fever (specify temp.).Disp: Rfl: nystatin (MYCOSTATIN) powderApply to groin and abdominal folds topically every 12 hours as needed for skin irritationDisp: Rfl: b complex, c, folic acid 1 mg renal vitamins (RENAL CAPS) 1 mg capsuleTake 1 capsule by mouth once daily.Disp: Rfl: OXYGEN, HOME THERAPY,2 L/min by Nasal Cannula route as directed. To keep sats >% - LPM via NC to maintain pulse ox above 92% as needed if patient has shortness of breath or s/sx ofDisp: Rfl: melatonin 3 mg tabletTake 9 mg by mouth daily at bedtime.Disp: Rfl: glucagon (GLUCAGEN) 1 mg injectionInject 1 mg intramuscularly as needed. For symptomatic hypoglycemia not responsive to oral intervention. Notify MEAT CUTTER/MDDisp: Rfl: senna-docusate (SENNA PLUS) 8.6-50 mg per tabletTake 1 tablet by mouth two times a day.Disp: Rfl: polyethylene glycol 3350 17 gram packetTake 1 Packet by mouth once daily as needed. Dissolve dose in 4 - 8 ounces of liquid and take as directed.Disp: 30 PacketRfl: 0 ondansetron (ZOFRAN) 4 mg tabletTake 4 mg by mouth every 8 hours as needed for nausea/vomiting. 4 MG by mouth every six hours as neededDisp: Rfl: hydrALAZINE (APRESOLINE) 50 mg tabletTake 50 mg by mouth three times a day.Disp: Rfl: pantoprazole DR (PROTONIX) 40 mg tabletTake 40 mg by mouth once daily.Disp: Rfl: carvedilol (COREG) 25 mg tabletTake 50 mg by mouth two times a day with meals.Disp: Rfl: insulin lispro (ADMELOG) 100 unit/mL injectionInject 5 Units subcutaneously three times a day before meals. In addition to sliding scale if B-200 = 2 units 201-250 = 3 units 251-300 = 4 units 301-350 = 5 units 351-400 = 6 units 401-450 = 7 untisDisp: Rfl: levothyroxine (SYNTHROID) 150 mcg tabletTake 150 mcg by mouth daily before breakfast.Disp: Rfl: atorvastatin (LIPITOR) 40 mg tabletTake 40 mg by mouth daily at bedtime.Disp: Rfl: calcium carbonate (ANTACID, CALCIUM CARBONATE,) 500 mg chewTake by mouth.Disp: Rfl: folic acid/vit B complex and C (RENAL MULTIVITAMIN FORMULA ORAL)Take by mouth.Disp: Rfl: DULoxetine (CYMBALTA) 30 mg capsuleDisp: Rfl: prednisoLONE acetate (PRED FORTE) 1 % ophthalmic suspensionUse 1 Drop in the right eye as directed. FOUR (4) TIMES FOR 1 WEEK, THREE (3) TIMES FOR 1 WEEK, THEN TW0 (2) TIMES A DAY FOR 1 WEEK, THEN ONE (1) TIME DAILY FOR 1 WEEK AND THEN STOPDisp: 5 mLRfl: 2 cyclopentolate (CYCLOGYL) 1 % ophthalmic solutionUse 1 Drop in the right eye two times a day.Disp: 5 mLRfl: 0 hydrOXYzine HCl (ATARAX) 25 mg tabletTake 1 tablet by mouth every 6 hours as needed for itching/rash.Disp: Rfl: diphenhydrAMINE-Zinc Acetate (ANTI-ITCH,DIPHENHYD, WITH ZINC) creamApply to affected area three times a day as needed for itching/rash.Disp: Rfl: menthol (BIOFREEZE, MENTHOL,) 4 % topical gelApply to bilateral shoulders ever morning and at bedtimeDisp: Rfl: Ciclopirox (CICLODAN) 8 % solutionApply to affected area daily at bedtime. (For nail fungus)Disp: Rfl: Ascorbic Acid 500 mg chewTake 500 mg by mouth once daily.Disp: Rfl: apixaban (ELIQUIS) 2.5 mg tab(s)Take 2.5 mg by mouth two times a day.Disp: Rfl: LANTUS U-100 INSULIN 100 unit/mL injectionInject 8 Units subcutaneously every afternoon.Disp: Rfl: dextrose (GLUCOSE GEL ORAL)Give one dose by mouth as needed for hypoglycemic episodeDisp: Rfl: epoetin jacki 10,000 unit/mL injectionInject 1 mL subcutaneously 3 Times weekly with dialysis.Disp: 12 mLRfl: 1 escitalopram oxalate (LEXAPRO) 20 mg tabletTake 20 mg by mouth once daily.Disp: Rfl: PAST MEDICAL HISTORY: PAST MEDICAL HISTORY Diagnosis Date Acquired absence of left leg above knee ([facility]) Acquired absence of other right toe(s) ([facility]) Acute infarction of spinal cord ([facility]) Acute kidney failure, unspecified Acute osteomyelitis of left ankle or foot ([facility]) Acute pulmonary edema ([facility]) Anemia Anemia in chronic kidney disease (CKD) Background diabetic macular edema (DME) ([facility]) Body mass index 40.0-44.9, adult ([facility]) Cataracts, bilateral Cerebral infarction due to unspecified occlusion or stenosis of unspecified cerebral artery ([facility]) Chronic kidney disease (CKD), stage IV (severe) ([facility]) Chronic systolic (congestive) heart failure ([facility]) Congestive heart failure (CHF) ([facility]) Dependence on renal dialysis Depression Diabetes mellitus with chronic kidney disease ([facility]) End stage renal disease ([facility]) ESRD (end stage renal disease) ([facility]) Essential hypertension GERD (gastroesophageal reflux disease) Heart failure ([facility]) HLD (hyperlipidemia) Hyperkalemia Hyperlipidemia Hypertension Hypertensive heart and chronic kidney disease with heart failure and stage 1 through stage 4 chronic kidney disease, or chronic kidney disease ([facility]) Hypo-osmolality and hyponatremia Hypomagnesemia Hypothyroidism Insomnia Insomnia Kidney transplant failure ([facility]) Kidney transplant status ([facility]) FPC current use of insulin ([facility]) Major depressive disorder, recurrent, unspecified Mood disorder Morbid (severe) obesity due to excess calories ([facility]) Muscle weakness Neurogenic bowel Neurogenic bowel, not elsewhere classified Neuromuscular dysfunction of bladder Neuromuscular dysfunction of bladder Neuropathy Non-pressure chronic ulcer of other part of unspecified foot with unspecified severity ([facility]) Obstructive sleep apnea Osteomyelitis of vertebra, sacral and sacrococcygeal region ([facility]) Other disorders of phosphorus metabolism Other idiopathic peripheral autonomic neuropathy Other pericardial effusion (noninflammatory) ([facility]) Other pulmonary embolism without acute cor pulmonale, unspecified chronicity ([facility]) Paraplegia ([facility]) Paraplegia, incomplete ([facility]) PDR (proliferative diabetic retinopathy) ([facility]) PDR (proliferative diabetic retinopathy) ([facility]) Penile erosion 04/23/2023 Pressure ulcer of ischium, stage 4 ([facility]) Pressure ulcer of left buttock, unspecified stage 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 Right foot ulcer ([facility]) Sepsis ([facility]) T1DM (type 1 diabetes mellitus) (HCC) Total, mature age-related cataract Type 2 diabetes (HCC) Unspecified protein-calorie malnutrition (HCC) UTI (urinary tract infection) Vitamin D deficiency PAST SURGICAL HISTORY: PAST SURGICAL HISTORY Procedure Laterality Date COLOSTOMY PROCEDURE Right 12/02/2024 REPAIR RETINAL DETACHMENT 20G W/VITRECTOMY ANY METHOD - Right with Munir Burton MD on 12/02/2024 SUPRAPUBIC TUBE PLACEMENT 02/27/2024 TRANSPLANTATION OF KIDNEY WOUND DEBRIDEMENT HX 4 times of the wound FAMILY HISTORY: FAMILY HISTORY Problem Relation Age of Onset No Known Problems Father Diabetes Mother No Known Problems Sister No Known Problems Brother No Known Problems Maternal Grandmother No Known Problems Maternal Grandfather No Known Problems Paternal Grandmother Cancer Paternal Grandfather Cancer Other Glaucoma Other Cataract Other Detached Retina No Family History Macular Degen No Family History Blindness No Family History Hypertension No Family History Heart No Family History SOCIAL HISTORY: Social Connections: Not on file REVIEW OF SYSTEMS: Constitutional: (-) fever, (-) chills Genitourinary: (+) malodorous urine, (-) suprapubic catheter site pain, (-) bladder spasms PHYSICAL EXAMINATION: Temperature 36.4 ?C (97.6 ?F), temperature source Temporal. General: Alert AND oriented, no acute distress Skin: Normal HEENT: Pupils equal, round. Oral cavity, oropharynx clear Neck: Supple, no mass Breast: Deferred Respiratory: Clear to auscultation, bilaterally Cardiovascular: Regular rate and rhythm, no murmurs, rubs, or gallops Abdomen: Soft, non-tender, non-distended, no masses palpable, no hepatosplenomegaly, normal bowel sounds. Suprapubic catheter in place with minimal drainage around insertion site, no erythema or purulent discharge Genitourinary: Deferred MSK: Back is non-tender Extremities: No clubbing, cyanosis, or edema PROBLEM LIST REVIEW: Yes LABS: SPT in place PROCEDURES: SPT in place ASSESSMENT/PLAN: 1. Neurogenic bladder (N31.9) 2. Presence of suprapubic catheter (HCC) (Z93.59) 3. Encounter for fitting and adjustment of urinary device (Z46.6) - Suprapubic catheter managed at [facility] with monthly changes on the . No pain during catheter changes; urine is clear. No fever or chills reported. Minimal drainage around the catheter site is normal due to slight movement of the tube. Educated patient on signs of infection, including increased drainage, pus, fever, and chills. Advised to report any significant changes to nursing staff. Follow-up in one year or sooner if issues arise. 4. ESRD on dialysis (HCC) (N18.6) - Patient is on dialysis. Continue current dialysis regimen. > 1 year Appt w/ B. PATRICIA Tovar MT, PA-C , > Continue with SPT exchanges monthly with [facility] Nursing staff Patient Instructions (AVS) - printed for patient - Continue monthly suprapubic catheter changes by the nursing staff at your residence (typically on the 15th of each month). - Expect some mild crusting or odor around the insertion site; this is normal and not a sign of infection if you have no fever, chills, pain, or other symptoms. - Keep the area around the catheter clean and the 4x4 [address]; if the dressing becomes saturated or you notice redness, swelling, increased pain, fluid buildup under the dressing, or any pus, contact your care team right away. - Bring this note to the front desk manager to schedule or confirm your next catheter change appointments as needed. - Return for your annual follow-up in one year, or sooner if you develop any concerns or symptoms. PATRICIA Callahan MT, PA-C Allergies As of Date: 02/23/2025 (No Known Allergies) Date Reviewed: 02/23/2025 Reviewed by: Jenny Tovar PA-C - Fully Assessed Reason for Visit: Follow Up [171] Neurogenic Bladder [397] Primary Visit Diagnosis:Neurogenic bladder [N31.9] Other Visit Diagnoses:Presence of suprapubic catheter (HCC) [Z93.59] Encounter for fitting and adjustment of urinary device [Z46.6] ESRD on dialysis (HCC) [N18.6, Z99.2] Penile erosion [N48.89] Prescriptions as of 02/23/2025 - insulin glargine-yfgn (SEMGLEE) 100 unit/mL solution Inject 8 Units subcutaneously every afternoon. - ivermectin 1 % Apply to face topically at bedtime for skin irritation - metroNIDAZOLE (METROGEL) 1 % Topical Gel Apply to affected area once daily. Apply to face topically in the morning for skin irritation - midodrine (PROAMATINE) 10 mg tablet Take 10 mg by mouth once daily as needed. Every 24 hours as needed for hypotension hold if >130/90 - calcium carbonate (ANTACID, CALCIUM CARBONATE,) 500 mg chew Take by mouth. - bisacodyl (DULCOLAX) 10 mg supp 10 mg by RECTAL route once daily as needed for constipation. - DULoxetine DR (CYMBALTA) 60 mg capsule Take 60 mg by mouth once daily. - apixaban (ELIQUIS) 2.5 mg tab(s) Take by mouth two times a day. - sodium phosphate,mono-dibasic (FLEET ENEMA UT) by RECTAL route. - dextrose (GLUCOSE GEL PO) Take by mouth. - magnesium hydroxide (MILK OF MAGNESIA PO) Take by mouth. - folic acid/vit B complex and C (RENAL MULTIVITAMIN FORMULA ORAL) Take by mouth. - Calcium-Cholecalciferol, D3, 500 mg-3.125 mcg (125 unit) tab Take 1 tablet by mouth once daily. - calcitriol (ROCALTROL) 0.5 mcg capsule Take by mouth. Every Saturday, Saturday, and saturday - DULoxetine (CYMBALTA) 30 mg capsule - gabapentin (NEURONTIN) 100 mg capsule - prednisoLONE acetate (PRED FORTE) 1 % ophthalmic suspension Use 1 Drop in the right eye as directed. FOUR (4) TIMES FOR 1 WEEK, THREE (3) TIMES FOR 1 WEEK, THEN TW0 (2) TIMES A DAY FOR 1 WEEK, THEN ONE (1) TIME DAILY FOR 1 WEEK AND THEN STOP - cyclopentolate (CYCLOGYL) 1 % ophthalmic solution Use 1 Drop in the right eye two times a day. - hydrOXYzine HCl (ATARAX) 25 mg tablet Take 1 tablet by mouth every 6 hours as needed for itching/rash. - sevelamer carbonate (RENVELA) 800 mg tablet Take 3 tablets by mouth three times a day with meals. - cloNIDine HCl (CATAPRES) 0.2 mg tablet Take 1 tablet by mouth two times a day. - tacrolimus IR (PROGRAF) 1 mg capsule Take 2 capsules by mouth two times a day. - acetaminophen (TYLENOL) 325 mg tablet Take 650 mg by mouth every 4 hours as needed for pain or fever (specify temp.). - diphenhydrAMINE-Zinc Acetate (ANTI-ITCH,DIPHENHYD, WITH ZINC) cream Apply to affected area three times a day as needed for itching/rash. - menthol (BIOFREEZE, MENTHOL,) 4 % topical gel Apply to bilateral shoulders ever morning and at bedtime - Ciclopirox (CICLODAN) 8 % solution Apply to affected area daily at bedtime. (For nail fungus) - nystatin (MYCOSTATIN) powder Apply to groin and abdominal folds topically every 12 hours as needed for skin irritation - b complex, c, folic acid 1 mg renal vitamins (RENAL CAPS) 1 mg capsule Take 1 capsule by mouth once daily. - Ascorbic Acid 500 mg chew Take 500 mg by mouth once daily. - OXYGEN, HOME THERAPY, 2 L/min by Nasal Cannula route as directed. To keep sats >% - LPM via NC to maintain pulse ox above 92% as needed if patient has shortness of breath or s/sx of - melatonin 3 mg tablet Take 9 mg by mouth daily at bedtime. - apixaban (ELIQUIS) 2.5 mg tab(s) Take 2.5 mg by mouth two times a day. - glucagon (GLUCAGEN) 1 mg injection Inject 1 mg intramuscularly as needed. For symptomatic hypoglycemia not responsive to oral intervention. Notify MEAT CUTTER/MD - LANTUS U-100 INSULIN 100 unit/mL injection Inject 8 Units subcutaneously every afternoon. - dextrose (GLUCOSE GEL ORAL) Give one dose by mouth as needed for hypoglycemic episode - senna-docusate (SENNA PLUS) 8.6-50 mg per tablet Take 1 tablet by mouth two times a day. - polyethylene glycol 3350 17 gram packet Take 1 Packet by mouth once daily as needed. Dissolve dose in 4 - 8 ounces of liquid and take as directed. - epoetin jacki 10,000 unit/mL injection Inject 1 mL subcutaneously 3 Times weekly with dialysis. - ondansetron (ZOFRAN) 4 mg tablet Take 4 mg by mouth every 8 hours as needed for nausea/vomiting. 4 MG by mouth every six hours as needed - hydrALAZINE (APRESOLINE) 50 mg tablet Take 50 mg by mouth three times a day. - pantoprazole DR (PROTONIX) 40 mg tablet Take 40 mg by mouth once daily. - carvedilol (COREG) 25 mg tablet Take 50 mg by mouth two times a day with meals. - escitalopram oxalate (LEXAPRO) 20 mg tablet Take 20 mg by mouth once daily. - insulin lispro (ADMELOG) 100 unit/mL injection Inject 5 Units subcutaneously three times a day before meals. In addition to sliding scale if B-200 = 2 units 201-250 = 3 units 251-300 = 4 units 301-350 = 5 units 351-400 = 6 units 401-450 = 7 untis - levothyroxine (SYNTHROID) 150 mcg tablet Take 150 mcg by mouth daily before breakfast. - atorvastatin (LIPITOR) 40 mg tablet Take 40 mg by mouth daily at bedtime. Facility-Administered Medications as of 02/23/2025 - hydrALAZINE injection (APRESOLINE) Problem List As Of Date 02/23/2025 Noted Resolved Pressure ulcer of ischium, left, stage IV (HCC)*02/12/2022 12/03/2024 Obesity (BMI 30-39.9) [E66.9] 02/12/2022 Type 2 diabetes mellitus with polyneuropathy (H*02/12/2022 Pressure ulcer of sacral region, stage 2 (HCC) *02/12/2022 12/03/2024 Cellulitis of left thigh [L03.116] 02/12/2022 VRE (vancomycin resistant enterococcus) culture*02/12/2022 Acute infarction of spinal cord (HCC) [G95.11] 04/17/2022 Mood disorder (HCC) [F39] 04/17/2022 Paraplegia (HCC) [G82.20] 04/17/2022 Sepsis (HCC) [A41.9] 04/17/2022 12/14/2022 Type 2 diabetes (HCC) [E11.9] 04/17/2022 Neurogenic bladder [N31.9] 04/17/2022 GERD (gastroesophageal reflux disease) [K21.9] 04/17/2022 Depression [F32.A] 04/17/2022 Anemia [D64.9] 04/17/2022 Kidney transplant status [Z94.0] 04/17/2022 Hyperlipidemia [E78.5] 04/17/2022 Cerebral infarction due to unspecified occlusio*04/17/2022 Obesity, Class I, BMI 30-34.9 [E66.811] 04/17/2022 Fever due to infection [B99.9] 07/02/2022 Severe sepsis (HCC) [A41.9, R65.20] 09/05/2022 09/13/2022 Acute pericardial effusion (HCC) [I30.9] 10/08/2022 Obesity, Class III, BMI >= 40 [E66.813] 10/08/2022 Acute renal failure superimposed on chronic kid*10/11/2022 Hyperkalemia [E87.5] 06/15/2024 12/04/2024 ESRD on dialysis (HCC) [N18.6, Z99.2] 06/16/2024 Dermatitis associated with moisture [L30.8] 06/16/2024 Wound, open, abdominal wall, anterior [S31.109A]06/16/2024 12/03/2024 Ulcer of toe of right foot, limited to breakdow*06/16/2024 Hypertensive urgency [I16.0] 06/16/2024 06/17/2024 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] 06/17/2024 Immunosuppressive management encounter followin*06/17/2024 Type 1 diabetes mellitus with proliferative ret*07/28/2024 Type 1 diabetes mellitus with proliferative judie*07/28/2024 Total, mature senile cataract [H25.89] 07/28/2024 Essential hypertension, benign [I10] 10/09/2024 History of pulmonary embolism [Z86.711] 10/15/2024 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] 10/15/2024 Thrombocytopenia [D69.6] 10/15/2024 Left ventricular hypertrophy [I51.7] 11/10/2024 Obesity, Class II, BMI 35-39.9 [E66.812] 12/01/2024 Acute posthemorrhagic anemia [D62] 01/30/2024 Anemia due to stage 3a chronic kidney disease (*05/09/2022 Bladder spasm [N32.89] 12/02/2024 Abdominal pain [R10.9] 12/02/2024 Chest pain [R07.9] 10/08/2022 Acute on chronic diastolic heart failure (HCC) *10/08/2022 Chronic insomnia [F51.04] 12/02/2024 Chronic osteomyelitis of multiple sites (HCC) [*01/27/2022 Closed head injury [S09.90XA] 12/02/2024 Community acquired methicillin resistant Staphy*02/25/2024 Cough [R05.9] 12/02/2024 Daytime somnolence [R40.0] 12/02/2024 Debility [R53.81] 10/21/2020 Fatigue [R53.83] 08/14/2024 Decreased cardiac ejection fraction [R93.1] 08/07/2023 Diarrhea [R19.7] 12/02/2024 Electrolyte disorder [E87.8] 05/12/2022 Fluid overload [E87.70] 05/08/2022 Generalized pain [R52] 12/02/2024 Headache, unspecified [R51.9] 12/02/2024 History of diabetes mellitus [Z86.39] 02/25/2024 History of renal failure [Z87.448] 08/07/2023 HTN (hypertension) [I10] 03/02/2020 Hyperglycemia [R73.9] 12/02/2024 Hypertensive heart and renal disease with renal*04/22/2024 Hypoglycemia [E16.2] 12/02/2024 Hypomagnesemia [E83.42] 12/02/2024 Hyponatremia [E87.1] 04/16/2022 Hypothyroidism [E03.9] 12/02/2024 Hypoxia [R09.02] 12/02/2024 Influenza [J11.1] 08/07/2023 Lightheadedness [R42] 12/02/2024 Migraine headache [G43.909] 12/02/2024 Muscle cramps [R25.2] 12/02/2024 Muscle pain [M79.10] 12/02/2024 Nausea and vomiting [R11.2] 12/02/2024 Nonspecific syndrome suggestive of viral illnes*12/02/2024 Obstructive sleep apnea syndrome [G47.33] 12/02/2024 Open wound of left buttock [S31.829A] 09/05/2022 12/03/2024 Osteomyelitis of right foot (HCC) [M86.9] 01/20/2021 Other toxic encephalopathy [G92.8] 04/16/2024 Overweight [E66.3] 12/02/2024 Pain of left lower extremity [M79.605] 12/02/2024 Pneumonia [J18.9] 04/06/2024 Presence of colostomy (HCC) [Z93.3] 12/02/2024 Pulmonary edema (HCC) [J81.1] 12/02/2024 Respiratory failure with hypoxia (HCC) [J96.91] 10/08/2022 Retinal detachment, tractional, 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*12/17/2017 Sacral wound [S31.000A] 02/22/2021 12/03/2024 Shortness of breath [R06.02] 12/05/2019 Skin lesion [L98.9] 12/02/2024 Strain of flexor muscle of hip [S76.019A] 12/02/2024 Systemic inflammatory response syndrome (SIRS) *12/02/2024 Thrombophlebitis of upper extremity [I80.8] 01/30/2024 Type 2 diabetes mellitus with hyperglycemia (HC*03/02/2020 Type 2 diabetes mellitus with renal manifestati*10/13/2020 Urinary tract infection [N39.0] 01/28/2022 Adverse effect of insulin and oral hypoglycemic*09/15/2024 Phantom limb syndrome with pain (HCC) [G54.6] 04/06/2024 Abnormal gait [R26.9] 12/02/2024 Abscess of rectum [K61.1] 12/02/2024 Acute bronchitis [J20.9] 12/02/2024 Leg cramps [R25.2] 12/02/2024 ESRD (end stage renal disease) (HCC) [N18.6] 12/03/2024 Non-pressure chronic ulcer of other part of rig*12/03/2024 Dialysis patient [Z99.2] 12/04/2024 Uncontrolled type 1 diabetes mellitus with hype*12/04/2024 Encounter Status:Closed by JENNY TOVAR on 02/23/25 CNPN Observed: 02/18/2025 12:00 AM Status: COMPLETED Source: [facility] Telephone (UROLWS) WILMERCHINA BLAIR ([id number]) 1985 M LV Date Time Provider Department 02/18/25 JENNY TOVAR During your visit today, we recorded the following information about you: Cecy Segura LPN 02/18/2025 12:01 PM Addendum DALILA Rutledge, unit operator with [facility] called to report that patient has foul ordor and green drainage around supra pubic site with red urine in drainage bag since 02/17/2025. Facility provider near [facility] doing rounds and informed patient has not seen Jenny since 10/2023. Facility provider states issue can wait until Saturday. Per Olivia the facility provider will not address the red urine either. Cecy Segura LPN Allergies As of Date: 02/18/2025 (Not on File) Date Reviewed: 02/16/2025 Reviewed by: Bela Dubose, RACHNA - Fully Assessed Reason for Visit: Patient Update [1234] Prescriptions as of 02/18/2025 - calcium carbonate (ANTACID, CALCIUM CARBONATE,) 500 mg chew Take by mouth. - bisacodyl (DULCOLAX) 10 mg supp 10 mg by RECTAL route once daily as needed for constipation. - DULoxetine DR (CYMBALTA) 60 mg capsule Take 60 mg by mouth once daily. - apixaban (ELIQUIS) 2.5 mg tab(s) Take by mouth two times a day. - sodium phosphate,mono-dibasic (FLEET ENEMA UT) by RECTAL route. - dextrose (GLUCOSE GEL PO) Take by mouth. - magnesium hydroxide (MILK OF MAGNESIA PO) Take by mouth. - folic acid/vit B complex and C (RENAL MULTIVITAMIN FORMULA ORAL) Take by mouth. - Calcium-Cholecalciferol, D3, 500 mg-3.125 mcg (125 unit) tab Take by mouth. - calcitriol (ROCALTROL) 0.5 mcg capsule Take by mouth. - DULoxetine (CYMBALTA) 30 mg capsule - gabapentin (NEURONTIN) 100 mg capsule - prednisoLONE acetate (PRED FORTE) 1 % ophthalmic suspension Use 1 Drop in the right eye as directed. FOUR (4) TIMES FOR 1 WEEK, THREE (3) TIMES FOR 1 WEEK, THEN TW0 (2) TIMES A DAY FOR 1 WEEK, THEN ONE (1) TIME DAILY FOR 1 WEEK AND THEN STOP - cyclopentolate (CYCLOGYL) 1 % ophthalmic solution Use 1 Drop in the right eye two times a day. - hydrOXYzine HCl (ATARAX) 25 mg tablet Take 1 tablet by mouth every 6 hours as needed for itching/rash. - sevelamer carbonate (RENVELA) 800 mg tablet Take 3 tablets by mouth three times a day with meals. - cloNIDine HCl (CATAPRES) 0.2 mg tablet Take 1 tablet by mouth two times a day. - tacrolimus IR (PROGRAF) 1 mg capsule Take 2 capsules by mouth two times a day. - acetaminophen (TYLENOL) 325 mg tablet Take 650 mg by mouth every 4 hours as needed for pain or fever (specify temp.). - diphenhydrAMINE-Zinc Acetate (ANTI-ITCH,DIPHENHYD, WITH ZINC) cream Apply to affected area three times a day as needed for itching/rash. - menthol (BIOFREEZE, MENTHOL,) 4 % topical gel Apply to bilateral shoulders ever morning and at bedtime - Ciclopirox (CICLODAN) 8 % solution Apply to affected area daily at bedtime. (For nail fungus) - nystatin (MYCOSTATIN) powder Apply to groin and abdominal folds topically every 12 hours as needed for skin irritation - b complex, c, folic acid 1 mg renal vitamins (RENAL CAPS) 1 mg capsule Take 1 capsule by mouth once daily. - Ascorbic Acid 500 mg chew Take 500 mg by mouth once daily. - OXYGEN, HOME THERAPY, 2 L/min by Nasal Cannula route as directed. To keep sats >% - LPM via NC to maintain pulse ox above 92% as needed if patient has shortness of breath or s/sx of - melatonin 3 mg tablet Take 9 mg by mouth daily at bedtime. - apixaban (ELIQUIS) 2.5 mg tab(s) Take 2.5 mg by mouth two times a day. - glucagon (GLUCAGEN) 1 mg injection Inject 1 mg intramuscularly as needed. For symptomatic hypoglycemia not responsive to oral intervention. Notify MEAT CUTTER/ - LANTUS U-100 INSULIN 100 unit/mL injection Inject 8 Units subcutaneously every afternoon. - dextrose (GLUCOSE GEL ORAL) Give one dose by mouth as needed for hypoglycemic episode - senna-docusate (SENNA PLUS) 8.6-50 mg per tablet Take 1 tablet by mouth two times a day. - polyethylene glycol 3350 17 gram packet Take 1 Packet by mouth once daily as needed. Dissolve dose in 4 - 8 ounces of liquid and take as directed. - epoetin jacki 10,000 unit/mL injection Inject 1 mL subcutaneously 3 Times weekly with dialysis. - ondansetron (ZOFRAN) 4 mg tablet Take 4 mg by mouth every 8 hours as needed for nausea/vomiting. 4 MG by mouth every six hours as needed - hydrALAZINE (APRESOLINE) 50 mg tablet Take 50 mg by mouth three times a day. - pantoprazole DR (PROTONIX) 40 mg tablet Take 40 mg by mouth once daily. - carvedilol (COREG) 25 mg tablet Take 50 mg by mouth two times a day with meals. - escitalopram oxalate (LEXAPRO) 20 mg tablet Take 20 mg by mouth once daily. - insulin lispro (ADMELOG) 100 unit/mL injection Inject 5 Units subcutaneously three times a day before meals. In addition to sliding scale if B-200 = 2 units 201-250 = 3 units 251-300 = 4 units 301-350 = 5 units 351-400 = 6 units 401-450 = 7 untis - levothyroxine (SYNTHROID) 150 mcg tablet Take 150 mcg by mouth daily before breakfast. - atorvastatin (LIPITOR) 40 mg tablet Take 40 mg by mouth daily at bedtime. Facility-Administered Medications as of 02/18/2025 - hydrALAZINE injection (APRESOLINE) Problem List As Of Date 02/18/2025 Noted Resolved Pressure ulcer of ischium, left, stage IV (HCC)*02/12/2022 12/03/2024 Obesity (BMI 30-39.9) [E66.9] 02/12/2022 Type 2 diabetes mellitus with polyneuropathy (H*02/12/2022 Pressure ulcer of sacral region, stage 2 (HCC) *02/12/2022 12/03/2024 Cellulitis of left thigh [L03.116] 02/12/2022 VRE (vancomycin resistant enterococcus) culture*02/12/2022 Acute infarction of spinal cord (HCC) [G95.11] 04/17/2022 Mood disorder (HCC) [F39] 04/17/2022 Paraplegia ([facility]) [G82.20] 04/17/2022 Sepsis (HCC) [A41.9] 04/17/2022 12/14/2022 Type 2 diabetes (HCC) [E11.9] 04/17/2022 Neurogenic bladder [N31.9] 04/17/2022 GERD (gastroesophageal reflux disease) [K21.9] 04/17/2022 Depression [F32.A] 04/17/2022 Anemia [D64.9] 04/17/2022 Kidney transplant status [Z94.0] 04/17/2022 Hyperlipidemia [E78.5] 04/17/2022 Cerebral infarction due to unspecified occlusio*04/17/2022 Obesity, Class I, BMI 30-34.9 [E66.811] 04/17/2022 Fever due to infection [B99.9] 07/02/2022 Severe sepsis (HCC) [A41.9, R65.20] 09/05/2022 09/13/2022 Acute pericardial effusion (HCC) [I30.9] 10/08/2022 Obesity, Class III, BMI >= 40 [E66.813] 10/08/2022 Acute renal failure superimposed on chronic kid*10/11/2022 Hyperkalemia [E87.5] 06/15/2024 12/04/2024 ESRD on dialysis (HCC) [N18.6, Z99.2] 06/16/2024 Dermatitis associated with moisture [L30.8] 06/16/2024 Wound, open, abdominal wall, anterior [S31.109A]06/16/2024 12/03/2024 Ulcer of toe of right foot, limited to breakdow*06/16/2024 Hypertensive urgency [I16.0] 06/16/2024 06/17/2024 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] 06/17/2024 Immunosuppressive management encounter followin*06/17/2024 Type 1 diabetes mellitus with proliferative ret*07/28/2024 Type 1 diabetes mellitus with proliferative judie*07/28/2024 Total, mature senile cataract [H25.89] 07/28/2024 Essential hypertension, benign [I10] 10/09/2024 History of pulmonary embolism [Z86.711] 10/15/2024 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] 10/15/2024 Thrombocytopenia [D69.6] 10/15/2024 Left ventricular hypertrophy [I51.7] 11/10/2024 Obesity, Class II, BMI 35-39.9 [E66.812] 12/01/2024 Acute posthemorrhagic anemia [D62] 01/30/2024 Anemia due to stage 3a chronic kidney disease (*05/09/2022 Bladder spasm [N32.89] 12/02/2024 Abdominal pain [R10.9] 12/02/2024 Chest pain [R07.9] 10/08/2022 Acute on chronic diastolic heart failure (HCC) *10/08/2022 Chronic insomnia [F51.04] 12/02/2024 Chronic osteomyelitis of multiple sites (HCC) [*01/27/2022 Closed head injury [S09.90XA] 12/02/2024 Community acquired methicillin resistant Staphy*02/25/2024 Cough [R05.9] 12/02/2024 Daytime somnolence [R40.0] 12/02/2024 Debility [R53.81] 10/21/2020 Fatigue [R53.83] 08/14/2024 Decreased cardiac ejection fraction [R93.1] 08/07/2023 Diarrhea [R19.7] 12/02/2024 Electrolyte disorder [E87.8] 05/12/2022 Fluid overload [E87.70] 05/08/2022 Generalized pain [R52] 12/02/2024 Headache, unspecified [R51.9] 12/02/2024 History of diabetes mellitus [Z86.39] 02/25/2024 History of renal failure [Z87.448] 08/07/2023 HTN (hypertension) [I10] 03/02/2020 Hyperglycemia [R73.9] 12/02/2024 Hypertensive heart and renal disease with renal*04/22/2024 Hypoglycemia [E16.2] 12/02/2024 Hypomagnesemia [E83.42] 12/02/2024 Hyponatremia [E87.1] 04/16/2022 Hypothyroidism [E03.9] 12/02/2024 Hypoxia [R09.02] 12/02/2024 Influenza [J11.1] 08/07/2023 Lightheadedness [R42] 12/02/2024 Migraine headache [G43.909] 12/02/2024 Muscle cramps [R25.2] 12/02/2024 Muscle pain [M79.10] 12/02/2024 Nausea and vomiting [R11.2] 12/02/2024 Nonspecific syndrome suggestive of viral illnes*12/02/2024 Obstructive sleep apnea syndrome [G47.33] 12/02/2024 Open wound of left buttock [S31.829A] 09/05/2022 12/03/2024 Osteomyelitis of right foot (HCC) [M86.9] 01/20/2021 Other toxic encephalopathy [G92.8] 04/16/2024 Overweight [E66.3] 12/02/2024 Pain of left lower extremity [M79.605] 12/02/2024 Pneumonia [J18.9] 04/06/2024 Presence of colostomy (HCC) [Z93.3] 12/02/2024 Pulmonary edema (HCC) [J81.1] 12/02/2024 Respiratory failure with hypoxia (HCC) [J96.91] 10/08/2022 Retinal detachment, tractional, 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*12/17/2017 Sacral wound [S31.000A] 02/22/2021 12/03/2024 Shortness of breath [R06.02] 12/05/2019 Skin lesion [L98.9] 12/02/2024 Strain of flexor muscle of hip [S76.019A] 12/02/2024 Systemic inflammatory response syndrome (SIRS) *12/02/2024 Thrombophlebitis of upper extremity [I80.8] 01/30/2024 Type 2 diabetes mellitus with hyperglycemia (HC*03/02/2020 Type 2 diabetes mellitus with renal manifestati*10/13/2020 Urinary tract infection [N39.0] 01/28/2022 Adverse effect of insulin and oral hypoglycemic*09/15/2024 Phantom limb syndrome with pain (HCC) [G54.6] 04/06/2024 Abnormal gait [R26.9] 12/02/2024 Abscess of rectum [K61.1] 12/02/2024 Acute bronchitis [J20.9] 12/02/2024 Leg cramps [R25.2] 12/02/2024 ESRD (end stage renal disease) (HCC) [N18.6] 12/03/2024 Non-pressure chronic ulcer of other part of rig*12/03/2024 Dialysis patient [Z99.2] 12/04/2024 Uncontrolled type 1 diabetes mellitus with hype*12/04/2024 Encounter Status:Closed by CECY SEGURA on 02/18/25 PROGRESS Observed: 02/16/2025 11:05 AM Status: COMPLETED Source: [facility] HNO ID: [id number] Author: ANDERSON SWANSON MD Service: ? Author Type: Physician Type: Progress Notes Filed: 02/16/2025 11:58 Note Text: Encounter Diagnosis ICD-10-CM 1. Pseudophakia Z96.1 2. History of detached retina repair Z98.890 Z86.69 3. 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 - [facility] OS - Follows with Dr. Alen Bradford MD Ophthalmology Resident remove suture erythromycin tru instilled defer mrx today as may change with suture removal recommend instead for 4-6 months mrx iop ou dfe od possible yag od I have confirmed and edited as necessary the relevant ophthalmic history, ROS, and the neuro exam findings as obtained by others. I have seen and examined this patient. I have discussed the case and the management of this patient's care with the Resident/Fellow, if applicable. I also have reviewed and agree with the assessment and plan as stated above and agree with all of its relevant components. Anderson Swanson MD [facility] Observed: 01/19/2025 12:00 AM Status: COMPLETED Source: [facility] Telephone (OPHTMN) CHINA GUILLEN ([id number]) 1985 M Date Time Provider Department 01/19/25 MUNIR BURTON During your visit today, we recorded the following information about you: Layne Enriquez 01/19/2025 2:07 PM Signed China Guillen [facility] [id number] 12/31/24 Fv 02/16/25 Dr Swanson Patient's residential facility / nurse, [facility] / Calling [phone] Patient's Right eye, sclera, is still red - no change in vision or comfort. As far as she can tell, patient is no longer using drops. She just wanted to be sure we were aware. Please advise. Thank you. Assessment AND Plan Munir Burton MD filed at 12/31/2024 8:16 AM Status: Signed The documentation for the note below was completed in part by Marie Winn acting as a scribe for Munir Burtno MD. 12/31/2024 7:27 AM. Scribe Attestation: By signing my name below, I, Marie Winn, attest that the documentation in part for the note below and the encounter was completed in part by Marie Winn acting as a scribe for Munir Burton MD. Electronically Signed: Tony lA. December 31, 2024 7:27 AM. All problems with bold in text below addressed at this visit with patient 1. POM#1 s/p CE/PCIOL, PPV/EL/Afx OD 12/02/24 (Alen/Ti) - Previous RD repair with SO 2019 per patient OS - Patient was previously admitted to hospital after surgery for hyperkalemia - Previously evaluated for POD1 visit with press operator [employer] products resident and fellow - Currently using on ofloxacin QID, cyclogyl BID, and PF QID - Previously stopped ofloxacin QID and cyclogyl BID - tapering PF, on BID - Dilated fundus exam stable - OCT image analysis no significant DME - Instructed pt to call office with pain or vision changes - Continue to follow - F/U with Franny Ernandez PA-C in 2 months Layne Enriquez 01/20/2025 1:00 PM Signed Nurse, Oscar, notified. Re: China Guillen [facility] [id number] ? Kailey Ernandez Jennifer;Munir Burton;Deepak Augustin;Eze Gallego;Real Donohue Sometimes it can take some time for that redness to go away. As long as he is not having any vision changes we can continue to monitor Allergies As of Date: 01/19/2025 (No Known Allergies) Date Reviewed: 12/31/2024 Reviewed by: Munir Burton MD - Fully Assessed Reason for Visit: Valance Cutter - Other [[id number]] Prescriptions as of 01/20/2025 - calcitriol (ROCALTROL) 0.5 mcg capsule Take by mouth. - DULoxetine (CYMBALTA) 30 mg capsule - gabapentin (NEURONTIN) 100 mg capsule - prednisoLONE acetate (PRED FORTE) 1 % ophthalmic suspension Use 1 Drop in the right eye as directed. FOUR (4) TIMES FOR 1 WEEK, THREE (3) TIMES FOR 1 WEEK, THEN TW0 (2) TIMES A DAY FOR 1 WEEK, THEN ONE (1) TIME DAILY FOR 1 WEEK AND THEN STOP - cyclopentolate (CYCLOGYL) 1 % ophthalmic solution Use 1 Drop in the right eye two times a day. - hydrOXYzine HCl (ATARAX) 25 mg tablet Take 1 tablet by mouth every 6 hours as needed for itching/rash. - sevelamer carbonate (RENVELA) 800 mg tablet Take 3 tablets by mouth three times a day with meals. - cloNIDine HCl (CATAPRES) 0.2 mg tablet Take 1 tablet by mouth two times a day. - tacrolimus IR (PROGRAF) 1 mg capsule Take 2 capsules by mouth two times a day. - acetaminophen (TYLENOL) 325 mg tablet Take 650 mg by mouth every 4 hours as needed for pain or fever (specify temp.). - diphenhydrAMINE-Zinc Acetate (ANTI-ITCH,DIPHENHYD, WITH ZINC) cream Apply to affected area three times a day as needed for itching/rash. - menthol (BIOFREEZE, MENTHOL,) 4 % topical gel Apply to bilateral shoulders ever morning and at bedtime - Ciclopirox (CICLODAN) 8 % solution Apply to affected area daily at bedtime. (For nail fungus) - nystatin (MYCOSTATIN) powder Apply to groin and abdominal folds topically every 12 hours as needed for skin irritation - b complex, c, folic acid 1 mg renal vitamins (RENAL CAPS) 1 mg capsule Take 1 capsule by mouth once daily. - Ascorbic Acid 500 mg chew Take 500 mg by mouth once daily. - OXYGEN, HOME THERAPY, 2 L/min by Nasal Cannula route as directed. To keep sats >% - LPM via NC to maintain pulse ox above 92% as needed if patient has shortness of breath or s/sx of - melatonin 3 mg tablet Take 9 mg by mouth daily at bedtime. - apixaban (ELIQUIS) 2.5 mg tab(s) Take 2.5 mg by mouth two times a day. - glucagon (GLUCAGEN) 1 mg injection Inject 1 mg intramuscularly as needed. For symptomatic hypoglycemia not responsive to oral intervention. Notify MEAT CUTTER/ - JESSICAUS U-100 INSULIN 100 unit/mL injection Inject 8 Units subcutaneously every afternoon. - dextrose (GLUCOSE GEL ORAL) Give one dose by mouth as needed for hypoglycemic episode - senna-docusate (SENNA PLUS) 8.6-50 mg per tablet Take 1 tablet by mouth two times a day. - polyethylene glycol 3350 17 gram packet Take 1 Packet by mouth once daily as needed. Dissolve dose in 4 - 8 ounces of liquid and take as directed. - epoetin jacki 10,000 unit/mL injection Inject 1 mL subcutaneously 3 Times weekly with dialysis. - ondansetron (ZOFRAN) 4 mg tablet Take 4 mg by mouth every 8 hours as needed for nausea/vomiting. 4 MG by mouth every six hours as needed - hydrALAZINE (APRESOLINE) 50 mg tablet Take 50 mg by mouth three times a day. - pantoprazole DR (PROTONIX) 40 mg tablet Take 40 mg by mouth once daily. - carvedilol (COREG) 25 mg tablet Take 50 mg by mouth two times a day with meals. - escitalopram oxalate (LEXAPRO) 20 mg tablet Take 20 mg by mouth once daily. - insulin lispro (ADMELOG) 100 unit/mL injection Inject 5 Units subcutaneously three times a day before meals. In addition to sliding scale if B-200 = 2 units 201-250 = 3 units 251-300 = 4 units 301-350 = 5 units 351-400 = 6 units 401-450 = 7 untis - levothyroxine (SYNTHROID) 150 mcg tablet Take 150 mcg by mouth daily before breakfast. - atorvastatin (LIPITOR) 40 mg tablet Take 40 mg by mouth daily at bedtime. Facility-Administered Medications as of 01/20/2025 - hydrALAZINE injection (APRESOLINE) Problem List As Of Date 01/19/2025 Noted Resolved Pressure ulcer of ischium, left, stage IV (HCC)*02/12/2022 12/03/2024 Obesity (BMI 30-39.9) [E66.9] 02/12/2022 Type 2 diabetes mellitus with polyneuropathy (H*02/12/2022 Pressure ulcer of sacral region, stage 2 (HCC) *02/12/2022 12/03/2024 Cellulitis of left thigh [L03.116] 02/12/2022 VRE (vancomycin resistant enterococcus) culture*02/12/2022 Acute infarction of spinal cord (HCC) [G95.11] 04/17/2022 Mood disorder (HCC) [F39] 04/17/2022 Paraplegia (HCC) [G82.20] 04/17/2022 Sepsis (HCC) [A41.9] 04/17/2022 12/14/2022 Type 2 diabetes (HCC) [E11.9] 04/17/2022 Neurogenic bladder [N31.9] 04/17/2022 GERD (gastroesophageal reflux disease) [K21.9] 04/17/2022 Depression [F32.A] 04/17/2022 Anemia [D64.9] 04/17/2022 Kidney transplant status [Z94.0] 04/17/2022 Hyperlipidemia [E78.5] 04/17/2022 Cerebral infarction due to unspecified occlusio*04/17/2022 Obesity, Class I, BMI 30-34.9 [E66.811] 04/17/2022 Fever due to infection [B99.9] 07/02/2022 Severe sepsis (HCC) [A41.9, R65.20] 09/05/2022 09/13/2022 Acute pericardial effusion (HCC) [I30.9] 10/08/2022 Obesity, Class III, BMI >= 40 [E66.813] 10/08/2022 Acute renal failure superimposed on chronic kid*10/11/2022 Hyperkalemia [E87.5] 06/15/2024 12/04/2024 ESRD on dialysis (HCC) [N18.6, Z99.2] 06/16/2024 Dermatitis associated with moisture [L30.8] 06/16/2024 Wound, open, abdominal wall, anterior [S31.109A]06/16/2024 12/03/2024 Ulcer of toe of right foot, limited to breakdow*06/16/2024 Hypertensive urgency [I16.0] 06/16/2024 06/17/2024 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] 06/17/2024 Immunosuppressive management encounter followin*06/17/2024 Type 1 diabetes mellitus with proliferative ret*07/28/2024 Type 1 diabetes mellitus with proliferative judie*07/28/2024 Total, mature senile cataract [H25.89] 07/28/2024 Essential hypertension, benign [I10] 10/09/2024 History of pulmonary embolism [Z86.711] 10/15/2024 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] 10/15/2024 Thrombocytopenia [D69.6] 10/15/2024 Left ventricular hypertrophy [I51.7] 11/10/2024 Obesity, Class II, BMI 35-39.9 [E66.812] 12/01/2024 Acute posthemorrhagic anemia [D62] 01/30/2024 Anemia due to stage 3a chronic kidney disease (*05/09/2022 Bladder spasm [N32.89] 12/02/2024 Abdominal pain [R10.9] 12/02/2024 Chest pain [R07.9] 10/08/2022 Acute on chronic diastolic heart failure (HCC) *10/08/2022 Chronic insomnia [F51.04] 12/02/2024 Chronic osteomyelitis of multiple sites (HCC) [*01/27/2022 Closed head injury [S09.90XA] 12/02/2024 Community acquired methicillin resistant Staphy*02/25/2024 Cough [R05.9] 12/02/2024 Daytime somnolence [R40.0] 12/02/2024 Debility [R53.81] 10/21/2020 Fatigue [R53.83] 08/14/2024 Decreased cardiac ejection fraction [R93.1] 08/07/2023 Diarrhea [R19.7] 12/02/2024 Electrolyte disorder [E87.8] 05/12/2022 Fluid overload [E87.70] 05/08/2022 Generalized pain [R52] 12/02/2024 Headache, unspecified [R51.9] 12/02/2024 History of diabetes mellitus [Z86.39] 02/25/2024 History of renal failure [Z87.448] 08/07/2023 HTN (hypertension) [I10] 03/02/2020 Hyperglycemia [R73.9] 12/02/2024 Hypertensive heart and renal disease with renal*04/22/2024 Hypoglycemia [E16.2] 12/02/2024 Hypomagnesemia [E83.42] 12/02/2024 Hyponatremia [E87.1] 04/16/2022 Hypothyroidism [E03.9] 12/02/2024 Hypoxia [R09.02] 12/02/2024 Influenza [J11.1] 08/07/2023 Lightheadedness [R42] 12/02/2024 Migraine headache [G43.909] 12/02/2024 Muscle cramps [R25.2] 12/02/2024 Muscle pain [M79.10] 12/02/2024 Nausea and vomiting [R11.2] 12/02/2024 Nonspecific syndrome suggestive of viral illnes*12/02/2024 Obstructive sleep apnea syndrome [G47.33] 12/02/2024 Open wound of left buttock [S31.829A] 09/05/2022 12/03/2024 Osteomyelitis of right foot (HCC) [M86.9] 01/20/2021 Other toxic encephalopathy [G92.8] 04/16/2024 Overweight [E66.3] 12/02/2024 Pain of left lower extremity [M79.605] 12/02/2024 Pneumonia [J18.9] 04/06/2024 Presence of colostomy (HCC) [Z93.3] 12/02/2024 Pulmonary edema (HCC) [J81.1] 12/02/2024 Respiratory failure with hypoxia (HCC) [J96.91] 10/08/2022 Retinal detachment, tractional, 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*12/17/2017 Sacral wound [S31.000A] 02/22/2021 12/03/2024 Shortness of breath [R06.02] 12/05/2019 Skin lesion [L98.9] 12/02/2024 Strain of flexor muscle of hip [S76.019A] 12/02/2024 Systemic inflammatory response syndrome (SIRS) *12/02/2024 Thrombophlebitis of upper extremity [I80.8] 01/30/2024 Type 2 diabetes mellitus with hyperglycemia (HC*03/02/2020 Type 2 diabetes mellitus with renal manifestati*10/13/2020 Urinary tract infection [N39.0] 01/28/2022 Adverse effect of insulin and oral hypoglycemic*09/15/2024 Phantom limb syndrome with pain (HCC) [G54.6] 04/06/2024 Abnormal gait [R26.9] 12/02/2024 Abscess of rectum [K61.1] 12/02/2024 Acute bronchitis [J20.9] 12/02/2024 Leg cramps [R25.2] 12/02/2024 ESRD (end stage renal disease) (HCC) [N18.6] 12/03/2024 Non-pressure chronic ulcer of other part of rig*12/03/2024 Dialysis patient [Z99.2] 12/04/2024 Uncontrolled type 1 diabetes mellitus with hype*12/04/2024 Encounter Status:Closed by LAYNE ENRIQUEZ on 01/20/25 PROGRESS Observed: 12/31/2024 7:27 AM Status: COMPLETED Source: [facility] HNO ID: [id number] Author: MUNIR BURTON MD Service: ? Author Type: Physician Type: Progress Notes Filed: 12/31/2024 08:16 Note Text: The documentation for the note below was completed in part by Marie Winn acting as a scribe for Munir Burton MD. 12/31/2024 7:27 AM. Scribe Attestation: By signing my name below, I, Marie Winn, attest that the documentation in part for the note below and the encounter was completed in part by Marie Winn acting as a scribe for Munir Burton MD. Electronically Signed: Tony Al. December 31, 2024 7:27 AM. All problems with bold in text below addressed at this visit with patient 1. POM#1 s/p CE/PCIOL, PPV/EL/Afx OD 12/02/24 (Alen/Ti) - Previous RD repair with SO 2019 per patient OS - Patient was previously admitted to hospital after surgery for hyperkalemia - Previously evaluated for POD1 visit with press operator [employer] products resident and fellow - Currently using on ofloxacin QID, cyclogyl BID, and PF QID - Previously stopped ofloxacin QID and cyclogyl BID - tapering PF, on BID - Dilated fundus exam stable - OCT image analysis no significant DME - Instructed pt to call office with pain or vision changes - Continue to follow - F/U with Franny Ernandez PA-C in 2 months I personally performed the services described in this documentation. All medical record entries made by the scribe were at my direction and in my presence. I have reviewed the chart and discharge instructions (if applicable) and agree that the record reflects my personal performance and is accurate and complete. I have confirmed and edited as necessary the relevant ophthalmic history, ROS, and the neuro exam findings as obtained by others. I have seen and examined China Guillen. I have discussed the case and the management of this patient's care with the Resident/Fellow, if applicable. I also have reviewed and agree with the assessment and plan as stated above and agree with all of its relevant components. PROGRESS Observed: 12/22/2024 2:15 PM Status: COMPLETED Source: [facility] HNO ID: [id number] Author: KAILEY ERNANDEZ PA-C Service: ? Author Type: Physician Mineral Engineer Type: Progress Notes Filed: 12/22/2024 15:22 Note Text: All problems with bold in text below addressed at this visit with patient 1. POW#3 s/p CE/PCIOL, PPV/EL/Afx OD 12/02/24 (Alen/Ti) - Prior RD repair with SO 2019 per patient OS - Of note patient was admitted to hospital after surgery for hyperkalemia - Was evaluated for POD1 visit with press operator [employer] products resident and fellow - Currently on ofloxacin QID, cyclogyl BID, and PF QID - Stop ofloxacin QID and cyclogyl BID - Start taper of PF - Bubble gone on exam today - OCT flat, retina with good laser - Call office with pain or vision changes - Continue to monitor - Follow up with Dr. Burton in 1 week I have seen and examined this patient. I have confirmed and edited as necessary the relevant HPI, ophthalmic history, medications, ROS, and the neuro and ophthalmic exam findings as obtained by others and myself. I have discussed the case and the management of this patient's care with the attending Physician, if applicable. I also have reviewed and agree with the assessment and plan as stated above and agree with all of its relevant components. I have discussed the treatment alternatives with the patient and the patient's family, if applicable. Follow-up as noted below, or sooner if new symptoms develop. CNPN Observed: 12/07/2024 12:00 AM Status: COMPLETED Source: [facility] Telephone (OPHTMN) CHINA GUILLEN ([id number]) 1985 M Date Time Provider Department 12/07/24 MUNIR BURTON During your visit today, we recorded the following information about you: Layne Enriquez 12/07/2024 1:58 PM Signed LVM with his nurse, Geovanna, to schedule. Reina Enriquez, COA Morgue Keeper II From: Deepak Augustin < > Sent: Saturday, December 07, 2024 1:15 PM To: Pranay Nuno < > Cc: Munir Burton < >; Layne Enriquez < > Subject: Re: Confidential: patient Wilmer Huang, Can you call the patient and get him added to this at 12/10/22 at 10:15am [place]. Thanks Deepak Augustin, JAVI, CRNO, OSC From: Pranay Nuno < > Sent: Thursday, December 05, 2024 7:00 AM To: Deepak Augustin < > Cc: Munir Burton < > Subject: Confidential: patient Wilmer Chuyita Sotelo and Dr Burton I saw China Guillen ([id number]) on the floor for his POD1 apt (and staffed with Arnaud) since he had to be admitted after his RD repair on 12/02/24 for hyperkalemia. I sent a staff message to Landon Degroot to get him a POW1 appointment but I don't see that scheduled yet Hoping you two may have better luck getting him scheduled, he's monocular and I am worried he will fall through the cracks Enjoy the weekend Pranay Allergies As of Date: 12/07/2024 (No Known Allergies) Date Reviewed: 12/04/2024 Reviewed by: Oscar Cervantes, RN - Fully Assessed Reason for Visit: Appointment [[id number]] Prescriptions as of 01/20/2025 - calcitriol (ROCALTROL) 0.5 mcg capsule Take by mouth. - DULoxetine (CYMBALTA) 30 mg capsule - gabapentin (NEURONTIN) 100 mg capsule - prednisoLONE acetate (PRED FORTE) 1 % ophthalmic suspension Use 1 Drop in the right eye as directed. FOUR (4) TIMES FOR 1 WEEK, THREE (3) TIMES FOR 1 WEEK, THEN TW0 (2) TIMES A DAY FOR 1 WEEK, THEN ONE (1) TIME DAILY FOR 1 WEEK AND THEN STOP - cyclopentolate (CYCLOGYL) 1 % ophthalmic solution Use 1 Drop in the right eye two times a day. - hydrOXYzine HCl (ATARAX) 25 mg tablet Take 1 tablet by mouth every 6 hours as needed for itching/rash. - sevelamer carbonate (RENVELA) 800 mg tablet Take 3 tablets by mouth three times a day with meals. - cloNIDine HCl (CATAPRES) 0.2 mg tablet Take 1 tablet by mouth two times a day. - tacrolimus IR (PROGRAF) 1 mg capsule Take 2 capsules by mouth two times a day. - acetaminophen (TYLENOL) 325 mg tablet Take 650 mg by mouth every 4 hours as needed for pain or fever (specify temp.). - diphenhydrAMINE-Zinc Acetate (ANTI-ITCH,DIPHENHYD, WITH ZINC) cream Apply to affected area three times a day as needed for itching/rash. - menthol (BIOFREEZE, MENTHOL,) 4 % topical gel Apply to bilateral shoulders ever morning and at bedtime - Ciclopirox (CICLODAN) 8 % solution Apply to affected area daily at bedtime. (For nail fungus) - nystatin (MYCOSTATIN) powder Apply to groin and abdominal folds topically every 12 hours as needed for skin irritation - b complex, c, folic acid 1 mg renal vitamins (RENAL CAPS) 1 mg capsule Take 1 capsule by mouth once daily. - Ascorbic Acid 500 mg chew Take 500 mg by mouth once daily. - OXYGEN, HOME THERAPY, 2 L/min by Nasal Cannula route as directed. To keep sats >% - LPM via NC to maintain pulse ox above 92% as needed if patient has shortness of breath or s/sx of - melatonin 3 mg tablet Take 9 mg by mouth daily at bedtime. - apixaban (ELIQUIS) 2.5 mg tab(s) Take 2.5 mg by mouth two times a day. - glucagon (GLUCAGEN) 1 mg injection Inject 1 mg intramuscularly as needed. For symptomatic hypoglycemia not responsive to oral intervention. Notify MEAT CUTTER/MD - LANTUS U-100 INSULIN 100 unit/mL injection Inject 8 Units subcutaneously every afternoon. - dextrose (GLUCOSE GEL ORAL) Give one dose by mouth as needed for hypoglycemic episode - senna-docusate (SENNA PLUS) 8.6-50 mg per tablet Take 1 tablet by mouth two times a day. - polyethylene glycol 3350 17 gram packet Take 1 Packet by mouth once daily as needed. Dissolve dose in 4 - 8 ounces of liquid and take as directed. - epoetin jacki 10,000 unit/mL injection Inject 1 mL subcutaneously 3 Times weekly with dialysis. - ondansetron (ZOFRAN) 4 mg tablet Take 4 mg by mouth every 8 hours as needed for nausea/vomiting. 4 MG by mouth every six hours as needed - hydrALAZINE (APRESOLINE) 50 mg tablet Take 50 mg by mouth three times a day. - pantoprazole DR (PROTONIX) 40 mg tablet Take 40 mg by mouth once daily. - carvedilol (COREG) 25 mg tablet Take 50 mg by mouth two times a day with meals. - escitalopram oxalate (LEXAPRO) 20 mg tablet Take 20 mg by mouth once daily. - insulin lispro (ADMELOG) 100 unit/mL injection Inject 5 Units subcutaneously three times a day before meals. In addition to sliding scale if B-200 = 2 units 201-250 = 3 units 251-300 = 4 units 301-350 = 5 units 351-400 = 6 units 401-450 = 7 untis - levothyroxine (SYNTHROID) 150 mcg tablet Take 150 mcg by mouth daily before breakfast. - atorvastatin (LIPITOR) 40 mg tablet Take 40 mg by mouth daily at bedtime. Facility-Administered Medications as of 01/20/2025 - hydrALAZINE injection (APRESOLINE) Problem List As Of Date 12/07/2024 Noted Resolved Pressure ulcer of ischium, left, stage IV (HCC)*02/12/2022 12/03/2024 Obesity (BMI 30-39.9) [E66.9] 02/12/2022 Type 2 diabetes mellitus with polyneuropathy (H*02/12/2022 Pressure ulcer of sacral region, stage 2 (HCC) *02/12/2022 12/03/2024 Cellulitis of left thigh [L03.116] 02/12/2022 VRE (vancomycin resistant enterococcus) culture*02/12/2022 Acute infarction of spinal cord (HCC) [G95.11] 04/17/2022 Mood disorder (HCC) [F39] 04/17/2022 Paraplegia (HCC) [G82.20] 04/17/2022 Sepsis (HCC) [A41.9] 04/17/2022 12/14/2022 Type 2 diabetes (HCC) [E11.9] 04/17/2022 Neurogenic bladder [N31.9] 04/17/2022 GERD (gastroesophageal reflux disease) [K21.9] 04/17/2022 Depression [F32.A] 04/17/2022 Anemia [D64.9] 04/17/2022 Kidney transplant status [Z94.0] 04/17/2022 Hyperlipidemia [E78.5] 04/17/2022 Cerebral infarction due to unspecified occlusio*04/17/2022 Obesity, Class I, BMI 30-34.9 [E66.811] 04/17/2022 Fever due to infection [B99.9] 07/02/2022 Severe sepsis (HCC) [A41.9, R65.20] 09/05/2022 09/13/2022 Acute pericardial effusion (HCC) [I30.9] 10/08/2022 Obesity, Class III, BMI >= 40 [E66.813] 10/08/2022 Acute renal failure superimposed on chronic kid*10/11/2022 Hyperkalemia [E87.5] 06/15/2024 12/04/2024 ESRD on dialysis (HCC) [N18.6, Z99.2] 06/16/2024 Dermatitis associated with moisture [L30.8] 06/16/2024 Wound, open, abdominal wall, anterior [S31.109A]06/16/2024 12/03/2024 Ulcer of toe of right foot, limited to breakdow*06/16/2024 Hypertensive urgency [I16.0] 06/16/2024 06/17/2024 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] 06/17/2024 Immunosuppressive management encounter followin*06/17/2024 Type 1 diabetes mellitus with proliferative ret*07/28/2024 Type 1 diabetes mellitus with proliferative judie*07/28/2024 Total, mature senile cataract [H25.89] 07/28/2024 Essential hypertension, benign [I10] 10/09/2024 History of pulmonary embolism [Z86.711] 10/15/2024 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] 10/15/2024 Thrombocytopenia [D69.6] 10/15/2024 Left ventricular hypertrophy [I51.7] 11/10/2024 Obesity, Class II, BMI 35-39.9 [E66.812] 12/01/2024 Acute posthemorrhagic anemia [D62] 01/30/2024 Anemia due to stage 3a chronic kidney disease (*05/09/2022 Bladder spasm [N32.89] 12/02/2024 Abdominal pain [R10.9] 12/02/2024 Chest pain [R07.9] 10/08/2022 Acute on chronic diastolic heart failure (HCC) *10/08/2022 Chronic insomnia [F51.04] 12/02/2024 Chronic osteomyelitis of multiple sites (HCC) [*01/27/2022 Closed head injury [S09.90XA] 12/02/2024 Community acquired methicillin resistant Staphy*02/25/2024 Cough [R05.9] 12/02/2024 Daytime somnolence [R40.0] 12/02/2024 Debility [R53.81] 10/21/2020 Fatigue [R53.83] 08/14/2024 Decreased cardiac ejection fraction [R93.1] 08/07/2023 Diarrhea [R19.7] 12/02/2024 Electrolyte disorder [E87.8] 05/12/2022 Fluid overload [E87.70] 05/08/2022 Generalized pain [R52] 12/02/2024 Headache, unspecified [R51.9] 12/02/2024 History of diabetes mellitus [Z86.39] 02/25/2024 History of renal failure [Z87.448] 08/07/2023 HTN (hypertension) [I10] 03/02/2020 Hyperglycemia [R73.9] 12/02/2024 Hypertensive heart and renal disease with renal*04/22/2024 Hypoglycemia [E16.2] 12/02/2024 Hypomagnesemia [E83.42] 12/02/2024 Hyponatremia [E87.1] 04/16/2022 Hypothyroidism [E03.9] 12/02/2024 Hypoxia [R09.02] 12/02/2024 Influenza [J11.1] 08/07/2023 Lightheadedness [R42] 12/02/2024 Migraine headache [G43.909] 12/02/2024 Muscle cramps [R25.2] 12/02/2024 Muscle pain [M79.10] 12/02/2024 Nausea and vomiting [R11.2] 12/02/2024 Nonspecific syndrome suggestive of viral illnes*12/02/2024 Obstructive sleep apnea syndrome [G47.33] 12/02/2024 Open wound of left buttock [S31.829A] 09/05/2022 12/03/2024 Osteomyelitis of right foot (HCC) [M86.9] 01/20/2021 Other toxic encephalopathy [G92.8] 04/16/2024 Overweight [E66.3] 12/02/2024 Pain of left lower extremity [M79.605] 12/02/2024 Pneumonia [J18.9] 04/06/2024 Presence of colostomy (HCC) [Z93.3] 12/02/2024 Pulmonary edema (HCC) [J81.1] 12/02/2024 Respiratory failure with hypoxia (HCC) [J96.91] 10/08/2022 Retinal detachment, tractional, 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*12/17/2017 Sacral wound [S31.000A] 02/22/2021 12/03/2024 Shortness of breath [R06.02] 12/05/2019 Skin lesion [L98.9] 12/02/2024 Strain of flexor muscle of hip [S76.019A] 12/02/2024 Systemic inflammatory response syndrome (SIRS) *12/02/2024 Thrombophlebitis of upper extremity [I80.8] 01/30/2024 Type 2 diabetes mellitus with hyperglycemia (HC*03/02/2020 Type 2 diabetes mellitus with renal manifestati*10/13/2020 Urinary tract infection [N39.0] 01/28/2022 Adverse effect of insulin and oral hypoglycemic*09/15/2024 Phantom limb syndrome with pain (HCC) [G54.6] 04/06/2024 Abnormal gait [R26.9] 12/02/2024 Abscess of rectum [K61.1] 12/02/2024 Acute bronchitis [J20.9] 12/02/2024 Leg cramps [R25.2] 12/02/2024 ESRD (end stage renal disease) (HCC) [N18.6] 12/03/2024 Non-pressure chronic ulcer of other part of rig*12/03/2024 Dialysis patient [Z99.2] 12/04/2024 Uncontrolled type 1 diabetes mellitus with hype*12/04/2024 Encounter Status:Closed by LAYNE ENRIQUEZ on 01/20/25 NURSING PROG Observed: 12/05/2024 11:38 AM Status: COMPLETED Source: [facility] HNO ID: [id number] Author: MIREYA VILLAFUERTE RN Service: Nursing Author Type: Registered Nurse Type: Nursing Progress Note Filed: 12/05/2024 11:39 Note Text: Call placed to Tanesha Watkins. Reort given to nurse Shital MIMS MANAGEM Observed: 12/05/2024 10:38 AM Status: COMPLETED Source: [facility] HNO ID: [id number] Author: ELEAZAR PEREZ LSW Service: Care Management Author Type: Meat Stringer Type: Care Mgt Progress Note Filed: 12/05/2024 10:43 Note Text: CARE MANAGEMENT DISCHARGE NOTE SERVICE DATE: December 05, 2024 SERVICE TIME: 10:38 AM Admission Date: 12/02/2024 LOS: 3 days Discharge Arrangement Discharge Arrangement: Long Term Facility Was an expedited discharge program used?: No Caregiver Assessment Caregiver is ready, willing and able to meet the patient's needs as recommended by the inter-professional team: Yes Name of Caregiver: SNF Transportation Arrangements Transportation Arrangements: Ambulance Transportation Agency and Phone #:: [facility] [phone] Date of Trip: 12/05/24 Time of Trip: 1300 Type of Service: BLS Non-emergency Is Patient Medicaid Pending?: No Was transportation financial coverage discussed with family?: 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 Pt to return to [facility]. No precert or 7000 needed. Transport scheduled for 12/05 @ 1300, trip # [id number]. Per [facility], RN report # [phone]. No COVID test needed, unless symptomatic. DC packet w/ green chart. DC orders faxed to [phone]. CM spoke with Shital from admissions [phone] and confirmed dc for today. Pt to resume dialysis at [facility], SNF to continue to transport. Discharge Information Row Name ED to Hosp-Admission (Current) from 12/02/2024 in HOSP MAIN [facility] Long Term Facility Agency [facility] SIGNATURE: DAMARI Lizama PATIENT NAME: Chnia Guillen DATE: December 05, 2024 TIME: 10:38 AM CNDS Observed: 12/05/2024 9:39 AM Status: COMPLETED [id number] Author: ROWAN BALDERRAMA MD Service: General Internal Medicine Author Type: Physician Type: Discharge Summary Filed: 12/05/2024 12:28 Note Text: DISCHARGE SUMMARY PATIENT NAME: China Guillen ADMISSION DATE: 12/02/2024 DISCHARGE DATE: 12/05/2024 ATTENDING PHYSICIAN: Rowan Balderrama MD Code Status: Full Code PCP: Lang Peres DO Highest Readmission Risk Score: 26 The 30 day readmissions risk score is derived from an internally validated risk model which evaluates patient level characteristics, utilization history, medication orders and lab results up until the day of discharge. Patients with a score of 39 or above are considered highest risk for readmission. Specific patient level drivers will be listed at the bottom of the summary. REASON FOR HOSPITALIZATION/FINAL DIAGNOSIS: Hyperkalemia; ICU for emergent HD; Type 1 DM; [facility] HOSPITAL PROBLEMS: Active Hospital Problems Diagnosis POA Hyperkalemia Yes Dialysis patient Unknown ESRD (end stage renal disease) (HCC) Unknown Non-pressure chronic ulcer of other part of right foot with unspecified severity (HCC) Yes Dermatitis associated with moisture Yes Resolved Hospital Problems No resolved problems to display. HOSPITAL COURSE: 39YO M w/ MHx significant for ESRD s/p failed kidney transplant now back on IHD MWF since 2022, T1DM, Pressure ulcer of sacrum, GERD, depression, anemia, HLD, cerebral infarct, spinal cord infarction c/b paraplegia, neurogenic bladder with SPC, neurogenic bowel s/p colostomy, chronic osteomyelitis, HTN, migraine who [facility] after routine labs showing K of 6.4. As per patient and medical records - Patient usually has IHD on MWF, last session was 11/30, he missed 12/02 d/t having surgery (cataract extraction w/ intraocular lens implant, pars plana vitrectomy,) with Dr. Burton. His K was found to be 6.4. He was SUZI'd to ED where repeat after medical management was 7.4. Given this he was admitted to the MICU and received a short session of BEAUTY ARTIST overnight. Repeat K this AM was 5.5 and then 4.0. Given improvement he was stable for transfer to [facility]. On arrival he was HDS with no acute complaints. Planned for full IHD on normal schedule on 12/04. # DD Kidney transplant 2020, failed # ESRD post-transplant # Hyperkalemia Hx of 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, neurogenic bladder and neurogenic bowel (s/p suprapubic catheter, colostomy, left BKA need for HD since 10/2022, access: L AVF, on tacro 2mg BID K 7 on admission; transferred to ICU for emergent HD Tx to [facility] on 12/03 - Nephrology following, IHD in Q6 completed 12/04 - Cont tacro (goal 3-7) - Continue home sevelamer TID -K 5.2 day of hospital discharge; STARTED on Lokelma 5g daily Monitor BMP weekly at [facility] #Thrombocytopenia PLT on admission fluctuating 143 on admission; up to 173 post op Then down to 126 day of discharge Monitor CBC weekly at [facility] # Bilateral retinal detachments: blind, s/p left mechanical vitrectomy 12/02 at [facility] - per ophtho - continue oflaxacin QID R eye - continue prednisolone QID R eye - continue cyclopentolate BID R eye - eye patch at night - do not lay flat on back - 1 week follow up with Dr. Burton requested Discharge back to [facility] in [place] in stable condition. OPERATIONS/PROCEDURE DURING THIS HOSPITALIZATION: * No surgery found * EKG CONSULTS DURING HOSPITALIZATION: Treatment Team: Attending Provider: Rowan Balderrama MD Primary Service: GIM 4 Nurse Practitioner: Uyen Jean Baptiste APRN.MEAT CUTTER PATIENT CONDITION AT DISCHARGE: Stable DISCHARGE DISPOSITION: Long Term Facility Discharge Physical Exam: VITAL SIGNS: BP 172/87 Pulse 71 Temp 36.8 ?C (98.2 ?F) (Oral) Resp 18 Wt 122 kg (268 lb 15.4 oz) SpO2 100% BMI 36.48 kg/m? GENERAL: Alert, no distress, cooperative, Morbidly Obese, blindness; [place] SKIN: Skin color, texture, turgor normal. No rashes or lesions. OROPHARYNX: Lips, mucosa, and tongue normal. Teeth and gums normal. Oropharynx normal. LUNGS: Lungs clear to auscultation, Good diaphragmatic excursion CARDIAC: Normal S1 and S2; no rubs, murmurs, or gallops ABDOMEN: Abdomen soft, non-tender, BS normal, No masses or organomegaly EXTREMITIES: LUE AV FISTULA +THRILL AND BRUIT NEURO: Cranial nerves II-XII intact The remainder of the physical exam is noncontributory. WOUND/SURGICAL SITE CARE: Orders Placed This Encounter WOUND CARE (NURSING COMMUNICATION ONLY - NOT A CONSULT TO WOUND CARE) (SPECIFY) ([place]), 2 Wounds Associated Order Comments: Plan - Right plantar foot - Remove old dressing, cleanse wound with normal saline/wound cleanser and then dry. [place] the base of the wound with Betadine. Then apply Biatain Alginate Ag to base of wound and cover with foam adhesive. Change every other day and as needed - Coccyx- Apply Critic-aid Clear to perianal area and coccyx extending onto bilateral buttocks BID and as needed. Prevention - Maintain Jean-Ramesh heel protectors to right lower extremity, to off-load heel, while in bed. - Maintain turning and positioning system to off-load patient's coccyx/ischium every 2 hours. - Obtain bed with New Rudi Bed IsoTour Blower, for low air-loss feature when pt transferred out of the ICU. - WCCT will sign off on patient. Please reconsult if further needs arise. Freq: Ongoing Dressing type:: Other (comments) SUPPLIES OR EQUIPMENT: None DIET: RENAL DIET ACTIVITY AND EXERCISE: AVOID LAYING FLAT ON BACK PER OPHTHALMOLOGY Avoid the following activities for 2 weeks after surgery: Bending Swimming Heavy lifting Working in magdi places Strenuous exercise or activity Activities that might injure your eye FOLLOW UP APPOINTMENTS: Future Appointments Date Time Provider Department Center 01/13/2025 11:[address] APRN[address]AREL [facility] 02/22/2025 9:00 AM [facility] Follow up with ophthalmology post op with dr burton requested in 1 weeks time; please call [phone] ALLERGIES No Known Allergies DISCHARGE MEDICATION: Medication List START taking these medications sodium zirconium cyclosilicate 5 gram oral packet Commonly known as: LOKELMA Take 1 packet by mouth once daily. CONTINUE taking these medications acetaminophen 325 mg tablet Commonly known as: TYLENOL ANTI-ITCH(DIPHENHYD) WITH ZINC cream Generic drug: diphenhydrAMINE-Zinc Acetate apixaban 2.5 mg tab(s) Commonly known as: ELIQUIS Ascorbic Acid 500 mg Chew atorvastatin 40 mg tablet Commonly known as: LIPITOR BIOFREEZE (MENTHOL) 4 % topical gel Generic drug: menthol calcitriol 0.5 mcg capsule Commonly known as: ROCALTROL carvedilol 25 mg tablet Commonly known as: COREG Ciclopirox 8 % solution Commonly known as: CICLODAN cloNIDine HCl 0.2 mg tablet Commonly known as: CATAPRES Take 1 tablet by mouth two times a day. cyclopentolate 1 % ophthalmic solution Commonly known as: CyclogyL Use 1 Drop in the right eye two times a day. DULoxetine 30 mg capsule Commonly known as: CYMBALTA epoetin jacki 10,000 unit/mL injection Commonly known as: PROCRIT, EPOGEN Inject 1 mL subcutaneously 3 Times weekly with dialysis. escitalopram oxalate 20 mg tablet Commonly known as: LEXAPRO gabapentin 100 mg capsule Commonly known as: NEURONTIN glucagon 1 mg injection Commonly known as: GLUCAGEN GLUCOSE GEL ORAL hydrALAZINE 50 mg tablet Commonly known as: APRESOLINE hydrOXYzine HCl 25 mg tablet Commonly known as: ATARAX Take 1 tablet by mouth every 6 hours as needed for itching/rash. insulin lispro 100 unit/mL injection Commonly known as: ADMElog LANTUS U-100 INSULIN 100 unit/mL injection Generic drug: insulin glargine levothyroxine 150 mcg tablet Commonly known as: SYNTHROID melatonin 3 mg tablet nystatin powder Commonly known as: MYCOSTATIN ofloxacin 0.3 % ophthalmic solution Commonly known as: OCUFLOX Use 1 Drop in the right eye four times daily. ondansetron 4 mg tablet Commonly known as: ZOFRAN OXYGEN (HOME THERAPY) pantoprazole DR 40 mg tablet Commonly known as: PROTONIX polyethylene glycol 3350 17 gram packet Take 1 Packet by mouth once daily as needed. Dissolve dose in 4 - 8 ounces of liquid and take as directed. prednisoLONE acetate 1 % ophthalmic suspension Commonly known as: PRED FORTE Use 1 Drop in the right eye as directed. FOUR (4) TIMES FOR 1 WEEK, THREE (3) TIMES FOR 1 WEEK, THEN TW0 (2) TIMES A DAY FOR 1 WEEK, THEN ONE (1) TIME DAILY FOR 1 WEEK AND THEN STOP RENAL CAPS 1 mg capsule Generic drug: b complex, c, folic acid 1 mg renal vitamins SENNA PLUS 8.6-50 mg per tablet Generic drug: senna-docusate sevelamer carbonate 800 mg tablet Commonly known as: RENVELA Take 3 tablets by mouth three times a day with meals. tacrolimus IR 1 mg capsule Commonly known as: PROGRAF Take 2 capsules by mouth two times a day. The patient's risk for 30-day readmission is determined using the following contributing factors: Predictive Model Details 26% (Moderate) Factor Value Calculated 12/04/2024 05:22 87% Hospital Unit HOSP MAIN H081 [facility] READMISSION RISK Model 33% Diagnosis Count 69 -16% Facility [facility] MAIN -14% Joe Scale 14 -11% [facility] 11% Current Age 39 10% Creatinine (Min) 7.26 -8% ED visits (365d) 0 -5% Arrival Method SUZI -5% Admissions (90d) 1 Plan of care discussed with Provider, RN, Patient I have performed the [id number] and relevant services for a total of >30 minutes. SIGNATURE: Uyen Jean Baptiste APRN.CNP DATE: December 05, 2024 TIME: 0941AM ATTENDING PHYSICIAN: Patient seen and evaluated today Brar elements of history and physical examination of the patient were confirmed. The assessment and plan were formulated and discussed with the team on Rounds. I reviewed the note of Uyen Jean Baptiste APRN.CNP, examined the patient and agree with the documented findings and plan of care. Rowan Balderrama MD [facility] [phone] TACROLIMUS BLD-MCNC Collected: 12/06/19 9:31 AM Status: F Source: [facility] Order Comment: Specimen Type : BLOOD SPECIMEN Ordering Facility: [facility] Address: [address] [place] [address] TYPE CODE TESTS RESULT OUT OF RANGE REFERENCE UNITS LAB 41921-7(LOINC) Tacrolimus Bld-mCnc 6.3 5.0-20.0 ng/mL Result Comment: Individualiz ed target levels for a given patient will depend on many factors (including the type of organ transplant, time since transplantation, concurrent medications, and other clinical factors), and should be assessed by those health care providers experienced in the management of immunosuppression. Reference ranges and high/low indicator flags are provided as general guidelines only. The treating physician must determine appropriate target levels/dosing based on the specific clinical situation. Test performed by chemiluminescent immunoassay using [place] Alinity i. Performed By: #### 01301-3 # ### [facility] CLIA [id number] [address] [place] [address] [place] CBC PNL BLD AUTO Collected: 5 7:39 AM Status: F Source: [facility] Order Comment: Specimen Type : BLOOD SPECIMEN Ordering Facility: [facility] Address: [address] [place] [address] TYPE CODE TESTS RESULT OUT OF RANGE REFERENCE UNITS LAB 6690-2(LOINC) WBC # Bld Auto 6.10 3.70-11.00 k/uL LAB 789-8(LOINC) RBC # Bld Auto 3.63 Low 4.20-6.00 m/uL LAB 718-7(LOINC) Hgb Bld-mCnc 11.3 Low 13.0-17.0 g/dL LAB 4544-3(LOINC) Hct VFr Bld Auto 35.1 Low 39.0-51.0 % LAB 787-2(LOINC) MCV RBC Auto 96.7 80.0-100.0 fL LAB 785-6(LOINC) MCH RBC Qn Auto 31.1 26.0-34.0 pg LAB 786-4(LOINC) MCHC RBC Auto-mCnc 32.2 30.5-36.0 g/dL LAB 37469-6(LOINC) RDW RBC-Rto 14.4 11.5-15.0 % LAB 777-3(LOINC) Platelet # Bld Auto 126 Low 150-400 k/uL Result Comment: Results chec ked and verified.No clot detected. LAB 57706-3([facility]) PMV Bld Auto 10.5 9.0-12.7 fL LAB 771-6([facility]) nRBC # Bld Auto <0.01 <0.01 k/uL Performed By: #### 42199-4 # ### [facility] CLIA [id number] [address] [place] [address] [place] BAS METAB 2000 PNL SERPL Collected: 7:39 AM Status: F Source: [facility] Order Comment: Specimen Type : BLOOD SPECIMEN Ordering Facility: [facility] Address: [address] [place] [address] TYPE CODE TESTS RESULT OUT OF RANGE REFERENCE UNITS LAB 2345-7(INC) Glucose SerPl-mCnc 181 High 74-99 mg/dL Result Comment: The [place] Diabetes Association (ADA) provides guidance for cutoff values for fasting glucose and random glucose. The ADA defines fasting as no caloric intake for at least 8 hours. Fasting plasma glucose results between 100 to 125 mg/dL indicate increased risk for diabetes (prediabetes). Fasting plasma glucose results greater than or equal to 126 mg/dL meet the criteria for diagnosis of diabetes. In the absence of unequivocal hyperglycemia, results should be confirmed by repeat testing. In a patient with classic symptoms of hyperglycemia or hyperglycemic crisis, random plasma glucose results greater than or equal to 200 mg/dL meet the criteria for diagnosis of diabetes. Reference: Standards of Medical Care in Diabetes 2016, [place] [employer] Association. Diabetes Care. 2016.39(Suppl 1). LAB 3094-0(LOINC) BUN SerPl-mCnc 44 High 9-24 mg/ dL LAB 2160-0(LOINC) Creat SerPl-mCnc 6.60 High 0.73-1.22 mg/dL LAB 2951-2(LOINC) Sodium SerPl-sCnc 136 136-144 mmol/L LAB 2823-3(LOINC) Potassium SerPl-sCnc 5.2 High 3.7-5.1 mmol/L LAB 2075-0(LOINC) Chloride SerPl-sCnc 96 Low 98-107 mmol/L LAB 2027-9(LOINC) CO2 SerPl-sCnc 25 22-30 mmo l/L LAB 97290-2(LOINC) Anion Gap SerPl-sCnc 15 8-15 mmol/L LAB 68819-0(LOINC) Calcium SerPl-mCnc 8.9 8.5-10.2 mg/dL LAB 12217-9(LOINC) Creatinine + eGFR Pnl SerPlBld 10 Low >=60 mL/min/1 .73m??? Result Comment: Estimated Gl omerular Filtration Rate (eGFR) is calculated using the 2020 CKD-EPI creatinine equation. This equation utilizes serum creatinine, sex, and age as parameters. The creatinine assay has traceable calibration to isotope dilution-mass spectrometry. Refer to KDIGO guidelines for clinical interpretation. In patients with unstable renal function, e.g. those with acute kidney injury, the eGFR may not accurately reflect actual GFR. Performed By: #### [id number], #### [facility] CLIA [id number] [address] [place] [address] [place] MAGNESIUM SERPL-MCNC Collected: 12/05/2024 7:39 AM S tatus: F Source: [facility] Order Comment: Specimen Type : BLOOD SPECIMEN Ordering Facility: [facility] Address: [address] [place] [address] TYPE CODE TESTS RESULT OUT OF RANGE REFERENCE UNITS LAB 28718-4(LOINC) Magnesium SerPl-mCnc 2.1 1.7-2.3 mg/dL Performed By: #### [id number], 49760-7 #### [facility] CLIA [id number] [address] [place] [address] [place] Observed: 12/04/2024 1:04 PM Status: COMPLETED Source: [facility] HNO ID: [id number] Author: NICOLETTE SCHMITZ MD Service: Endocrinology Author Type: Physician Type: Consults Filed: 12/04/2024 17:14 Note Text: ENDOCRINOLOGY INPATIENT INITIAL CONSULT NOTE Reason for consultation: Type 1 Diabetes Mellitus, hyperglycemia Referring physician: Lang Peres DO HPI: 39 year old male with uncontrolled Type 1, CKD s/p kidney tx on dialysis is admitted with hyperkalemia found on routine labs after having missed dialysis. Patient seen during dialysis. Endocrinology is consulted for glycemic management. Diabetes Complications: CKD s/p kidney tx Current Inpatient Regimen: R insulin SS Outpatient Diabetes Regimen: lantus 8 units lispro 5 units plus ss Diet: Regular Steroids: No IVF: No ROS: GENERAL: No weight loss, malaise or fevers HEENT: Negative for frequent or significant headaches, No changes in hearing or vision. RESPIRATORY: Negative for cough, dyspnea. CARDIOVASCULAR: Negative for chest pain, palpitations GI: No nausea, vomiting, or diarrhea : No history of dysuria, frequency or incontinence MUSCULOSKELETAL: Negative for joint pain or swelling, back pain or muscle pain SKIN: Negative for lesions, rash, and itching PSYCH: Negative for sleep disturbance, mood disorder and recent psychosocial stressors ENDOCRINE: Negative for cold or heat intolerance, polyuria, polydipsia and goiter NEURO: Negative for headaches, syncope, paralysis, seizures or tremors MEDICATIONS: Current Facility-Administered Medications on File Prior to Encounter Medication hydrALAZINE injection (APRESOLINE) Current Outpatient Medications on File Prior to Encounter Medication Sig calcitriol (ROCALTROL) 0.5 mcg capsule Take by mouth. DULoxetine (CYMBALTA) 30 mg capsule gabapentin (NEURONTIN) 100 mg capsule prednisoLONE acetate (PRED FORTE) 1 % ophthalmic suspension Use 1 Drop in the right eye as directed. FOUR (4) TIMES FOR 1 WEEK, THREE (3) TIMES FOR 1 WEEK, THEN TW0 (2) TIMES A DAY FOR 1 WEEK, THEN ONE (1) TIME DAILY FOR 1 WEEK AND THEN STOP ofloxacin (OCUFLOX) 0.3 % ophthalmic solution Use 1 Drop in the right eye four times daily. cyclopentolate (CYCLOGYL) 1 % ophthalmic solution Use 1 Drop in the right eye two times a day. hydrOXYzine HCl (ATARAX) 25 mg tablet Take 1 tablet by mouth every 6 hours as needed for itching/rash. sevelamer carbonate (RENVELA) 800 mg tablet Take 3 tablets by mouth three times a day with meals. cloNIDine HCl (CATAPRES) 0.2 mg tablet Take 1 tablet by mouth two times a day. tacrolimus IR (PROGRAF) 1 mg capsule Take 2 capsules by mouth two times a day. acetaminophen (TYLENOL) 325 mg tablet Take 650 mg by mouth every 4 hours as needed for pain or fever (specify temp.). diphenhydrAMINE-Zinc Acetate (ANTI-ITCH,DIPHENHYD, WITH ZINC) cream Apply to affected area three times a day as needed for itching/rash. menthol (BIOFREEZE, MENTHOL,) 4 % topical gel Apply to bilateral shoulders ever morning and at bedtime Ciclopirox (CICLODAN) 8 % solution Apply to affected area daily at bedtime. (For nail fungus) nystatin (MYCOSTATIN) powder Apply to groin and abdominal folds topically every 12 hours as needed for skin irritation b complex, c, folic acid 1 mg renal vitamins (RENAL CAPS) 1 mg capsule Take 1 capsule by mouth once daily. Ascorbic Acid 500 mg chew Take 500 mg by mouth once daily. OXYGEN, HOME THERAPY, 2 L/min by Nasal Cannula route as directed. To keep sats >% - LPM via NC to maintain pulse ox above 92% as needed if patient has shortness of breath or s/sx of melatonin 3 mg tablet Take 9 mg by mouth daily at bedtime. apixaban (ELIQUIS) 2.5 mg tab(s) Take 2.5 mg by mouth two times a day. glucagon (GLUCAGEN) 1 mg injection Inject 1 mg intramuscularly as needed. For symptomatic hypoglycemia not responsive to oral intervention. Notify KAREL/MD HUANG U-100 INSULIN 100 unit/mL injection Inject 8 Units subcutaneously every afternoon. dextrose (GLUCOSE GEL ORAL) Give one dose by mouth as needed for hypoglycemic episode senna-docusate (SENNA PLUS) 8.6-50 mg per tablet Take 1 tablet by mouth two times a day. polyethylene glycol 3350 17 gram packet Take 1 Packet by mouth once daily as needed. Dissolve dose in 4 - 8 ounces of liquid and take as directed. epoetin jacki 10,000 unit/mL injection Inject 1 mL subcutaneously 3 Times weekly with dialysis. ondansetron (ZOFRAN) 4 mg tablet Take 4 mg by mouth every 8 hours as needed for nausea/vomiting. 4 MG by mouth every six hours as needed hydrALAZINE (APRESOLINE) 50 mg tablet Take 50 mg by mouth three times a day. pantoprazole DR (PROTONIX) 40 mg tablet Take 40 mg by mouth once daily. carvedilol (COREG) 25 mg tablet Take 50 mg by mouth two times a day with meals. escitalopram oxalate (LEXAPRO) 20 mg tablet Take 20 mg by mouth once daily. insulin lispro (ADMELOG) 100 unit/mL injection Inject 5 Units subcutaneously three times a day before meals. In addition to sliding scale if B-200 = 2 units 201-250 = 3 units 251-300 = 4 units 301-350 = 5 units 351-400 = 6 units 401-450 = 7 untis levothyroxine (SYNTHROID) 150 mcg tablet Take 150 mcg by mouth daily before breakfast. atorvastatin (LIPITOR) 40 mg tablet Take 40 mg by mouth daily at bedtime. Allergies: ALLERGIES No Known Allergies PAST MEDICAL AND SURGICAL HISTORY: PAST MEDICAL HISTORY Diagnosis Date Acquired absence of left leg above knee (HCC) Acquired absence of other right toe(s) ([facility]) Acute infarction of spinal cord (HCC) Acute kidney failure, unspecified Acute osteomyelitis of left ankle or foot ([facility]) Acute pulmonary edema (HCC) Anemia Anemia in chronic kidney disease (CKD) Body mass index 40.0-44.9, adult ([facility]) Cerebral infarction due to unspecified occlusion or stenosis of unspecified cerebral artery ([facility]) Chronic kidney disease (CKD), stage IV (severe) ([facility]) Chronic systolic (congestive) heart failure (HCC) Congestive heart failure (CHF) (HCC) Dependence on renal dialysis Depression Diabetes mellitus with chronic kidney disease (HCC) End stage renal disease (HCC) ESRD (end stage renal disease) ([facility]) Essential hypertension GERD (gastroesophageal reflux disease) Heart failure (HCC) HLD (hyperlipidemia) Hyperkalemia Hyperlipidemia Hypertension Hypertensive heart and chronic kidney disease with heart failure and stage 1 through stage 4 chronic kidney disease, or chronic kidney disease (HCC) Hypo-osmolality and hyponatremia Hypomagnesemia Hypothyroidism Insomnia Insomnia Kidney transplant failure ([facility]) Kidney transplant status ([facility]) 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 ([facility]) Major depressive disorder, recurrent, unspecified Mood disorder Morbid (severe) obesity due to excess calories ([facility]) Muscle weakness Neurogenic bowel Neurogenic bowel, not elsewhere classified Neuromuscular dysfunction of bladder Neuromuscular dysfunction of bladder Neuropathy Non-pressure chronic ulcer of other part of unspecified foot with unspecified severity ([facility]) Obstructive sleep apnea Osteomyelitis of vertebra, sacral and sacrococcygeal region ([facility]) Other disorders of phosphorus metabolism Other idiopathic peripheral autonomic neuropathy Other pericardial effusion (noninflammatory) ([facility]) Other pulmonary embolism without acute cor pulmonale, unspecified chronicity ([facility]) Paraplegia ([facility]) Paraplegia, incomplete ([facility]) PDR (proliferative diabetic retinopathy) ([facility]) Penile erosion 04/23/2023 Pressure ulcer of ischium, stage 4 ([facility]) Pressure ulcer of left buttock, unspecified stage 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 Right foot ulcer ([facility]) Sepsis ([facility]) T1DM (type 1 diabetes mellitus) ([facility]) Total, mature age-related cataract Type 2 diabetes ([facility]) Unspecified protein-calorie malnutrition ([facility]) UTI (urinary tract infection) Vitamin D deficiency PAST SURGICAL HISTORY Procedure Laterality Date COLOSTOMY TRANSPLANTATION OF KIDNEY WOUND DEBRIDEMENT HX 4 times of the wound FAMILY HISTORY: FAMILY HISTORY Problem Relation Age of Onset No Known Problems Father Diabetes Mother No Known Problems Sister No Known Problems Brother No Known Problems Maternal Grandmother No Known Problems Maternal Grandfather No Known Problems Paternal Grandmother Cancer Paternal Grandfather Cancer Other Glaucoma Other Cataract Other Detached Retina No Family History Macular Degen No Family History Blindness No Family History Hypertension No Family History Heart No Family History SOCIAL HISTORY: Social History Tobacco Use Smoking status: Never Smokeless tobacco: Never Vaping Use Vaping status: Never Used Substance Use Topics Alcohol use: Never Drug use: Never PHYSICAL EXAM: BP 172/80 Pulse 74 Temp 36.6 ?C (97.9 ?F) (Oral) Resp 16 Wt 124 kg (273 lb 5.9 oz) SpO2 98% BMI 37.08 kg/m? General: Lying in bed, alert and oriented, in no obvious acute distress LABORATORY AND IMAGING: No results found for: HBA1C Latest Ref Rng AND Units 12/04/2024 12/03/2024 12/02/2024 BMP Glucose 74 - 99 mg/dL 212 148 207 BUN 9 - 24 mg/dL 58 62 89 Creatinine 0.73 - 1.22 mg/dL 7.90 7.26 10.01 Sodium 136 - 144 mmol/L 136 132 132 Potassium 3.7 - 5.1 mmol/L 5.3 -- 6.7 Chloride 98 - 107 mmol/L 95 91 91 CO2 22 - 30 mmol/L 24 26 25 Anion Gap 8 - 15 mmol/L 17 15 16 Calcium 8.5 - 10.2 mg/dL 8.9 9.3 9.1 EGFR >=60 mL/min/1.73m? 8 9 6 Recent Labs 12/04/24 0906 12/03/24 2051 12/03/24 1833 12/03/24 1131 12/03/24 0840 12/03/24 0526 12/02/24 2215 12/02/24 1708 PCGLUCOSE 185* 243* 263* 141* 158* 165* 209* 221* Assessment/Plan Type 1 Diabetes CKD s/p kidney transplant on dialysis BS is elevated and patient was only on Regular SS Start Basal Insulin: Lantus 5 units QHS Start Prandial Insulin: Admelog 3 units AC TID Start Supplemental Sliding Scale: Admelog #2 AC / 0 HS Oral Hypoglycemic Agents: - Accuchecks TID AC/HS Diabetes Education Needs: n/a Discharge Plan : tbd Discussed with Attending staff. Staff addendum to follow. This note was typed using voice recognition software. Typing mistakes may occur. Berna Bustillo MD Clinical Fellow Endocrinology and Metabolism [place] Pager: [phone] Please note: This is the Main Endocrine Consult and Teaching Service. We kindly request the primary team to place orders. Attending Note: Brar findings confirmed. Patient examined. Discussed with the fellow and the patient. Plan as outlined. DM type 1 and ESKD on HD Home regimen: Lantus 8 units daily and Humalog 5 units with meals Managed by PCP Recommend insulin regimen per above Nicolette Patel MD CASE MANAGEM Observed: 12/04/2024 12:10 PM Status: COMPLETED Source: [facility] ID: [id number] Author: JUANIS IVAN RN Service: Care Management Author Type: Registered Nurse Type: Care Mgt Progress Note Filed: 12/04/2024 12:15 Note Text: CARE MANAGEMENT PROGRESS NOTE POSSIBLE WEEKEND DC SERVICE DATE: 12/04/2024 SERVICE TIME: 12:10 PM LOS: 2 days Needs Prior to Discharge: Other: See Comment (AVS to SNF, bedside RN updated, IMM) ECF FOC remains [facility], can accept. SNF sent updated notes as of today (12/04). No precert/7000 needed. Tentative MMT BLS transport scheduled for 12/05 @ 1300, trip # [id number]. SNF, pt, and primary team made awre. Ambulance form completed in [facility] for 10-days from 12/05. Dc packet by pts green chart, needs AVS placed inside once available. Per [facility], RN report # [phone]. No COVID test needed, unless symptomatic. Pt will need IMM no later than 4-hours prior to dc (only good for 48-hours)---given last on 12/04, AVS sent to ECF once available, and update bedside RN on dc plan and RN report # once available prior to dc. IMM given to pt via in-person on 12/04. IMM Follow Up Copy Given: Yes Copy given to:: Patient Method: In Person CM will continue to follow. Please see Treatment Team for Care Management Weekend/Holiday coverage. Please note: Should any case management needs arise over the weekend/holiday, please contact the weekend/holiday CM. Please note, however, that NEW referrals will likely not be able to verified for insurance nor can precerts be initiated over the weekend/holiday d/t unavailability of insurance review and accepting agencies/facilities. SIGNATURE: Juanis Ivan RN PATIENT NAME: China Guillen DATE: December 04, 2024 TIME: 12:10 PM CONSULT PROG Observed: 12/04/2024 12:01 PM Status: COMPLETED Source: [facility] ID: [id number] Author: GILA COHEN APRN.KAREL Service: Nephrology Author Type: Nurse Practitioner Type: Consult Progress Note Filed: 12/04/2024 14:58 Note Text: CONSULT PROGRESS NOTE NEPHROLOGY Q6 SERVICE SERVICE DATE: 12/04/2024 SERVICE TIME: 12:01 PM SUBJECTIVE INTERVAL HISTORY: - ESRD Patient seen on dialysis, single evaluation. Orders confirmed and documented per [facility]. Transferred from ICU to [facility] from admit for hyperkalemia with back to back IHD session to control potassium. -Patient tolerating dialysis well -Denies any chest pain, shortness of breath or dizziness -Denies any nausea, vomiting, muscle aches or headaches MEDICATIONS: Current Facility-Administered Medications Medication Dose Route Frequency apixaban 2.5 mg tab(s) (ELIQUIS) 2.5 mg ORAL BID NaCl 0.9% iv flush bag 20 mL INTRAVENOUS PRN acetaminophen 1,000 mg tab(s) (TYLENOL) 1,000 mg ORAL/FEEDING TUBE q 8 H PRN dextrose 15 gram/32 mL 15 g (TRUEPLUS) 15 g ORAL PRN glucagon 1 mg injection 1 mg SUBCUTANEOUS PRN dextrose 10% iv bolus 12.5-25 g INTRAVENOUS PRN insulin regular human injection (short acting) SUBCUTANEOUS w MEALS AND HS atorvastatin 40 mg tab(s) (LIPITOR) 40 mg ORAL AT BEDTIME cloNIDine HCl 0.2 mg tab(s) (CATAPRES) 0.2 mg ORAL BID hydrALAZINE 50 mg tab(s) (APRESOLINE) 50 mg ORAL TID carvedilol 50 mg tab(s) (COREG) 50 mg ORAL BID w MEALS sevelamer carbonate 2,400 mg tab(s) (RENVELA) 2,400 mg ORAL TID w MEALS levothyroxine 150 mcg tab(s) (SYNTHROID) 150 mcg ORAL BEFORE BREAKFAST DAILY mupirocin 2 % 0.5 g nasal ointment (BACTROBAN) 0.5 g NASAL BID gabapentin 100 mg cap(s) (NEURONTIN) 100 mg ORAL DAILY pantoprazole DR 40 mg tab(s) (PROTONIX) 40 mg ORAL DAILY (6 AM) ciprofloxacin HCl 0.3 % 1 drop (CILOXAN) 1 drop RIGHT EYE QID prednisoLONE acetate 1 % 1 drop (PRED FORTE) 1 drop RIGHT EYE QID cyclopentolate 1 % 1 drop (CYCLOGYL) 1 drop RIGHT EYE BID tacrolimus IR 2 mg cap(s) (PROGRAF) 2 mg ORAL q 12 H 6a/6p Facility-Administered Medications Ordered in Other Encounters Medication Dose Route Frequency hydrALAZINE injection (APRESOLINE) INTRAVENOUS PRN OBJECTIVE PHYSICAL EXAM: BP 172/80 Pulse 74 Temp 36.6 ?C (97.9 ?F) (Oral) Resp 16 Wt 124 kg (273 lb 5.9 oz) SpO2 98% BMI 37.08 kg/m? Intake/Output Summary (Last 24 hours) at 12/04/2024 1201 Last data filed at 12/04/2024 1111 Gross per 24 hour Intake 120 ml Output 0 ml Net 120 ml GENERAL: Awake, alert, in no acute distress SKIN: Warm and dry HEENT: Normocephalic, Atraumatic LUNGS:Normal respiratory effort. O2 3L per n/c CARDIAC: RRR ABDOMEN: Soft, non-tender, non-distended. EXTREMITIES: trace LE edema, left BKA NEURO: AOx3, normal speech Vascular Access: Permanent Vascular access: Left upper extremity AVF. Access site demonstrates: accessed DATA: Diagnostic tests reviewed for today's visit: Recent Labs 12/04/24 0517 12/03/24 0516 12/02/24 2224 12/02/24 1923 12/02/24 1546 NA 136 132* 132* 130* 132* K 5.3* -- 6.7* 7.5* 7.0* CHLOR 95* 91* 91* 92* 93* CO2 24 26 25 23 24 BUN 58* 62* 89* 87* 84* CREAT 7.90* 7.26* 10.01* 10.05* 9.55* GLUC 212* 148* 207* 208* 134* ANION 17* 15 16* 15 15 CA 8.9 9.3 9.1 9.2 9.3 MG 2.2 2.3 2.2 -- 2.1 Recent Labs 12/04/24 0517 12/03/24 0516 12/02/24 1546 WBC 6.19 4.74 6.40 HB 10.9* 11.9* 12.3* HCT 35.1* 36.3* 38.2* PLT 128* 173 144* ASSESSMENT: 39 year old male admitted on 12/02/2024 for hyperkalemia . History is significant for ESRD s/p failed kidney transplant now on dialysis again since 2022. Nephrology consulted for urgent dialysis in the setting of hyperkalemia. iESRD s/p DDKT, graft failure now on iHD since 2022 -Etiology of kidney disease: neurogenic bladder, obstructive nephropathy -outpatient chair: Marino Schneider MWF -EDW: unclear at this time and unable to find in medical chart -Access: L AVF -on tacro per transplant nephro plan 2.Electrolytes/acid-base: -Hyperkalemia improved with back to back IHD sessions -Hyponatremia improved -Acid/base stable 3.Hypertension/Volume Status: -BP variable on hydralizine, clonidinecorge. -pre-weigh today 124 kg with UF goal 2 L as tolerated -Hypervolemic on exam on supp O2 4.Anemia of CKD: -hgb at goal 5.Secondary renal hyperparathyroidism: -Calcium stable -on renvela PLAN: -IHD today x 3.5 hours, 2 K bath with UF goal 2 L -Next dialysis planned for Saturday -As per transplant note written on 06/17/2024, patient is to remain on Tacrolimus 2mg BID, please measure trough level drawn 30 minutes prior to medication administration with goal level of 3-7 Standard ESRD recommendations and precautions: - Strict IANDOs and Daily weight - Consider a RENAL Diet for HD patients - Fluid restriction < 1 L - Start Nephrocap or other renal multivitamin to replace water-soluble vitamins lost during dialysis - Avoid Lovenox, Demerol, Morphine, K-containing IVF, Mg- or Phos- containing enemas - Dose meds GFR 10 ml/min Outpatient dialysis disposition plan: contact [phone] and ask to speak with the front desk manager as needed for assistance with post-discharge arrangements. Please DO NOT schedule patient for a nephrology follow up appointment. Kidney care will be provided by the primary pharmacy retail support specialist at their dialysis unit upon hospital discharge. SIGNATURE: Gila Cohen APRN.CNP PATIENT NAME: China Guillen DATE: December 04, 2024 TIME: 12:01 PM PAGER: [phone] FOR AFTER HOUR CONCERNS BETWEEN 5PM - 7AM CONTACT ON-CALL NEPHROLOGY FELLOW [phone] Disclosures: Parts of the current progress note may have been copied from a previous note. PROGRESS Observed: 12/04/2024 11:34 AM Status: COMPLETED Source: [facility] HNO ID: [id number] Author: UYEN JEAN BAPTISTE APRN.CNP Service: General Internal Medicine Author Type: Nurse Practitioner Type: Progress Notes Filed: 12/04/2024 11:46 Note Text: DEPARTMENT OF HOSPITAL MEDICINE MICU TO [facility] TRANSFER ACCEPTANCE NOTE Hospital Medicine/Primary Attending: Mita Hauser MD NIGHT AND WEEKEND COVERAGE: Patient admitted to [facility]. Please page me at Uyen Jean Baptiste APRN.CNP for patient issues until 729. After that please page [facility] staff assigned (as noted in EPIC banner) [place] [phone]. 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 Awaiting dialysis today via LUE fistula Per CM no precert needed to go back to SNF Anticipate d/c tomorrow Current Facility-Administered Medications Medication Dose Route Frequency apixaban 2.5 mg tab(s) (ELIQUIS) 2.5 mg ORAL BID NaCl 0.9% iv flush bag 20 mL INTRAVENOUS PRN acetaminophen 1,000 mg tab(s) (TYLENOL) 1,000 mg ORAL/FEEDING TUBE q 8 H PRN dextrose 15 gram/32 mL 15 g (TRUEPLUS) 15 g ORAL PRN glucagon 1 mg injection 1 mg SUBCUTANEOUS PRN dextrose 10% iv bolus 12.5-25 g INTRAVENOUS PRN insulin regular human injection (short acting) SUBCUTANEOUS w MEALS AND HS atorvastatin 40 mg tab(s) (LIPITOR) 40 mg ORAL AT BEDTIME cloNIDine HCl 0.2 mg tab(s) (CATAPRES) 0.2 mg ORAL BID hydrALAZINE 50 mg tab(s) (APRESOLINE) 50 mg ORAL TID carvedilol 50 mg tab(s) (COREG) 50 mg ORAL BID w MEALS sevelamer carbonate 2,400 mg tab(s) (RENVELA) 2,400 mg ORAL TID w MEALS levothyroxine 150 mcg tab(s) (SYNTHROID) 150 mcg ORAL BEFORE BREAKFAST DAILY mupirocin 2 % 0.5 g nasal ointment (BACTROBAN) 0.5 g NASAL BID gabapentin 100 mg cap(s) (NEURONTIN) 100 mg ORAL DAILY pantoprazole DR 40 mg tab(s) (PROTONIX) 40 mg ORAL DAILY (6 AM) ciprofloxacin HCl 0.3 % 1 drop (CILOXAN) 1 drop RIGHT EYE QID prednisoLONE acetate 1 % 1 drop (PRED FORTE) 1 drop RIGHT EYE QID cyclopentolate 1 % 1 drop (CYCLOGYL) 1 drop RIGHT EYE BID tacrolimus IR 2 mg cap(s) (PROGRAF) 2 mg ORAL q 12 H 6a/6p insulin lispro injection (rapid acting) (ADMElog) SUBCUTANEOUS w MEALS Facility-Administered Medications Ordered in Other Encounters Medication Dose Route Frequency hydrALAZINE injection (APRESOLINE) INTRAVENOUS PRN Objective PHYSICAL EXAM: BP 172/80 Pulse 74 Temp (Src) 97.9 (Oral) Resp 16 Wt 273 lb 5.9 oz (124.0kg) SpO2 98% O2 Therapy: Room Air, Liters (Numeric Only): 1.00 Physical Exam Performed GENERAL: Alert, no distress, cooperative SKIN: Warm, well perfused. No rashes or lesions. NECK: No jugulovenous distention, Supple LUNGS: Lungs clear to auscultation, normal respiratory effort CARDIAC: RRR, Normal S1 and S2; no rubs, murmurs, or gallops ABDOMEN: Abdomen soft, non-tender, BS normal EXTREMITIES: trace pitting edema, no asymmetry; LUE AV fistula +thrill and bruit NEURO: AANDOx3, Grossly non focal Lines, Drains, and Airways Line Duration Peripheral 12/02/24 1547 Right Forearm 20 Gauge 1 day Drain Duration Surgically Inserted Drain External Facility Suprapubic Left Pelvic -- days Colostomy 04/17/22 LLQ 962 days Patient does not currently have any lines, drains or airways. DATA: Diagnostic tests reviewed for today's visit: Most recent labs Most recent imaging Most recent EKG Assessment/Plan Problem List Assessment AND Plan Hyperkalemia Dermatitis associated with moisture ESRD (end stage renal disease) (HCC) Non-pressure chronic ulcer of other part of right foot with unspecified severity (HCC) Dialysis patient # DD Kidney transplant 2020, failed # ESRD post-transplant # Hyperkalemia Hx of 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, neurogenic bladder and neurogenic bowel (s/p suprapubic catheter, colostomy, left BKA need for HD since 10/2022, access: L AVF, on tacro 2mg BID - Nephrology following, IHD planned for today - Cont tacro (goal 3-7) - Continue home sevelamer TID # Bilateral retinal detachments: blind, 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 Burton # Hx of HOOD segmental PE 2022 - Per chart review from OSH 11/2022: CTPE 10/14- acute PE in proximal left upper lobe segmental pulmonary arteries On heparin drip, restarted soon after BKA (11/09),changed to apixaban on 11/11/22 duration of anticoagulation likely to be lifelong (if no bleeding complications) given irreversible risk factors (immobility) - Continue Eliquis 2.5 mg BID # Hypothyroidism: continue home synthroid 150 mcg daily # Neurogenic bladder: suprapubic cath in place # Sacral and ischium pressure ulcers - follow wound care team recs # Hx of 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 osteomyelitis Medication and Non-Pharmacologic VTE Prophylaxis/Anticoagulants Anticoagulant AND Antiplatelet Medications (From admission, onward) Start Dose Route Frequency Last Action Ordered Stop 12/02/24 1930 apixaban 2.5 mg tab(s) (ELIQUIS) (apixaban tab(s) (ELIQUIS)) 2.5 mg PO 2 TIMES DAILY Given, 12/04 0855 12/02/24 1904 -- 12/02/24 2201 activity - mobilize patient ([place], [place]) VTE Prophylaxis: VTE prophylaxis appropriate Disposition: from SNF; awaiting CM to determine if need precert to return Plan of care discussed with Patient Plan communicated to: N/A SIGNATURE: Uyen Jean Baptiste APRN.CNP PATIENT NAME: China Guillen DATE: December 04, 2024 TIME: 1135AM CBC PNL BLD AUTO Collected: 5 5:17 AM Status: F Source: [facility] Order Comment: Specimen Type : BLOOD SPECIMEN Ordering Facility: [facility] Address: [address] [place] [address] TYPE CODE TESTS RESULT OUT OF RANGE REFERENCE UNITS LAB 6690-2(LOINC) WBC # Bld Auto 6.19 3.70-11.00 k/uL LAB 789-8(LOINC) RBC # Bld Auto 3.58 Low 4.20-6.00 m/uL LAB 718-7(LOINC) Hgb Bld-mCnc 10.9 Low 13.0-17.0 g/dL LAB 4544-3(LOINC) Hct VFr Bld Auto 35.1 Low 39.0-51.0 % LAB 787-2(LOINC) MCV RBC Auto 98.0 80.0-100.0 fL LAB 785-6(LOINC) MCH RBC Qn Auto 30.4 26.0-34.0 pg LAB 786-4(LOINC) MCHC RBC Auto-mCnc 31.1 30.5-36.0 g/dL LAB 43162-4(LOINC) RDW RBC-Rto 15.0 11.5-15.0 % LAB 777-3(INC) Platelet # Bld Auto 128 Low 150-400 k/uL LAB 14308-2([facility]) PMV Bld Auto 10.9 9.0-12.7 fL LAB 771-6([facility]) nRBC # Bld Auto <0.01 <0.01 k/uL Performed By: #### 73522-6 # ### [facility] CLIA [id number] [address] [place] [address] [place] BAS METAB 2000 PNL SERPL Collected: 5:17 AM Status: F Source: [facility] Order Comment: Specimen Type : BLOOD SPECIMEN Ordering Facility: [facility] Address: [address] [place] [address] TYPE CODE TESTS RESULT OUT OF RANGE REFERENCE UNITS LAB 2345-7([facility]) Glucose SerPl-mCnc 212 High 74-99 mg/dL Result Comment: The [place] Diabetes Association (ADA) provides guidance for cutoff values for fasting glucose and random glucose. The ADA defines fasting as no caloric intake for at least 8 hours. Fasting plasma glucose results between 100 to 125 mg/dL indicate increased risk for diabetes (prediabetes). Fasting plasma glucose results greater than or equal to 126 mg/dL meet the criteria for diagnosis of diabetes. In the absence of unequivocal hyperglycemia, results should be confirmed by repeat testing. In a patient with classic symptoms of hyperglycemia or hyperglycemic crisis, random plasma glucose results greater than or equal to 200 mg/dL meet the criteria for diagnosis of diabetes. Reference: Standards of Medical Care in Diabetes 2016, [place] [employer] Association. Diabetes Care. 2016.39(Suppl 1). LAB 3094-0(LOINC) BUN SerPl-mCnc 58 High 9-24 mg/ dL LAB 2160-0(LOINC) Creat SerPl-mCnc 7.90 High 0.73-1.22 mg/dL LAB 2951-2(LOINC) Sodium SerPl-sCnc 136 136-144 mmol/L LAB 2823-3(LOINC) Potassium SerPl-sCnc 5.3 High 3.7-5.1 mmol/L LAB 2075-0(LOINC) Chloride SerPl-sCnc 95 Low 98-107 mmol/L LAB 2027-9(LOINC) CO2 SerPl-sCnc 24 22-30 mmo l/L LAB 24030-4(LOINC) Anion Gap SerPl-sCnc 17 High 8-15 mmol/L LAB 39934-8(LOINC) Calcium SerPl-mCnc 8.9 8.5-10.2 mg/dL LAB 42365-5(LOINC) Creatinine + eGFR Pnl SerPlBld 8 Low >=60 mL/min/1 .73m??? Result Comment: Estimated Gl omerular Filtration Rate (eGFR) is calculated using the 2020 CKD-EPI creatinine equation. This equation utilizes serum creatinine, sex, and age as parameters. The creatinine assay has traceable calibration to isotope dilution-mass spectrometry. Refer to KDIGO guidelines for clinical interpretation. In patients with unstable renal function, e.g. those with acute kidney injury, the eGFR may not accurately reflect actual GFR. Performed By: #### 29505-2, #### [facility] CLIA [id number] [address] [place] [address] [place] MAGNESIUM SERPL-MCNC Collected: 12/04/2024 5:17 AM S tatus: F Source: [facility] Order Comment: Specimen Type : BLOOD SPECIMEN Ordering Facility: [facility] Address: [address] [place] [address] TYPE CODE TESTS RESULT OUT OF RANGE REFERENCE UNITS LAB 75444-8([facility]) Magnesium SerPl-mCnc 2.2 1.7-2.3 mg/dL Performed By: #### 94052-6, #### [facility] CLIA [id number] [address] [place] [address] [place] TACROLIMUS BLD-MCNC Collected: 12/05/19 5:17 AM Status: F Source: [facility] Order Comment: Specimen Type : BLOOD SPECIMEN Ordering Facility: [facility] Address: [address] [place] [address] TYPE CODE TESTS RESULT OUT OF RANGE REFERENCE UNITS LAB 68750-3(INC) Tacrolimus Bld-mCnc 3.0 Low 5.0-20.0 ng/mL Result Comment: Individualiz ed target levels for a given patient will depend on many factors (including the type of organ transplant, time since transplantation, concurrent medications, and other clinical factors), and should be assessed by those health care providers experienced in the management of immunosuppression. Reference ranges and high/low indicator flags are provided as general guidelines only. The treating physician must determine appropriate target levels/dosing based on the specific clinical situation. Test performed by chemiluminescent immunoassay using Frontier pte Alinity i. Performed By: #### 45152-5 # ### [facility] CLIA [id number] [address] [place], [place] [id number] [place] PROGRESS Observed: 12/03/2024 6:29 PM Status: COMPLETED Source: [facility] HNO ID: [id number] Author: MING ABEL MD Service: Hospital Medicine Author Type: Physician Type: Progress Notes Filed: 12/03/2024 19:02 Note Text: DEPARTMENT OF HOSPITAL MEDICINE MICU TO RNF TRANSFER ACCEPTANCE NOTE Hospital Medicine/Primary Attending: Jeimy Forte MD NIGHT AND WEEKEND COVERAGE: Patient admitted to [facility]. Please page me at [phone] for patient issues until 729. After that please page [facility] staff assigned (as noted in EPIC banner) [place] [phone]. Subjective Brief Hospital Course: This is a 39YO M w/ MHx significant for ESRD s/p failed kidney transplant now back on IHD MWF since 2022, T1DM, Pressure ulcer of sacrum, GERD, depression, anemia, HLD, cerebral infarct, spinal cord infarction c/b paraplegia, neurogenic bladder with SPC, neurogenic bowel s/p colostomy, chronic osteomyelitis, HTN, migraine who [facility] routine labs showing K of 6.4. As per patient and medical records - Patient usually has IHD on MWF, last session was 11/30, he missed 12/02 d/t having surgery (cataract extraction w/ intraocular lens implant, pars plana vitrectomy,) with Dr. Burton. His K was found to be 6.4. He was SUZI'd to ED where repeat after medical management was 7.4. Given this he was admitted to the MICU and received a short session of BEAUTY [employer]IST overnight. Repeat K this AM was 5.5 and then 4.0. Given improvement he was stable for transfer to [facility]. On arrival he was HDS with no acute complaints. Planned for full IHD on normal schedule on 12/04. Current Facility-Administered Medications Medication Dose Route Frequency [Transfer Hold] apixaban 2.5 mg tab(s) (ELIQUIS) 2.5 mg ORAL BID [Transfer Hold] NaCl 0.9% iv flush bag 20 mL INTRAVENOUS PRN [Transfer Hold] acetaminophen 1,000 mg tab(s) (TYLENOL) 1,000 mg ORAL/FEEDING TUBE q 8 H PRN [Transfer Hold] dextrose 15 gram/32 mL 15 g (TRUEPLUS) 15 g ORAL PRN [Transfer Hold] glucagon 1 mg injection 1 mg SUBCUTANEOUS PRN [Transfer Hold] dextrose 10% iv bolus 12.5-25 g INTRAVENOUS PRN [Transfer Hold] insulin regular human injection (short acting) SUBCUTANEOUS w MEALS AND HS [Transfer Hold] atorvastatin 40 mg tab(s) (LIPITOR) 40 mg ORAL AT BEDTIME [Transfer Hold] cloNIDine HCl 0.2 mg tab(s) (CATAPRES) 0.2 mg ORAL BID [Transfer Hold] hydrALAZINE 50 mg tab(s) (APRESOLINE) 50 mg ORAL TID [Transfer Hold] carvedilol 50 mg tab(s) (COREG) 50 mg ORAL BID w MEALS [Transfer Hold] sevelamer carbonate 2,400 mg tab(s) (RENVELA) 2,400 mg ORAL TID w MEALS [Transfer Hold] levothyroxine 150 mcg tab(s) (SYNTHROID) 150 mcg ORAL BEFORE BREAKFAST DAILY [Transfer Hold] mupirocin 2 % 0.5 g nasal ointment (BACTROBAN) 0.5 g NASAL BID [Transfer Hold] gabapentin 100 mg cap(s) (NEURONTIN) 100 mg ORAL DAILY [Transfer Hold] pantoprazole DR 40 mg tab(s) (PROTONIX) 40 mg ORAL DAILY (6 AM) [Transfer Hold] ciprofloxacin HCl 0.3 % 1 drop (CILOXAN) 1 drop RIGHT EYE QID [Transfer Hold] prednisoLONE acetate 1 % 1 drop (PRED FORTE) 1 drop RIGHT EYE QID [Transfer Hold] cyclopentolate 1 % 1 drop (CYCLOGYL) 1 drop RIGHT EYE BID [Transfer Hold] tacrolimus IR 2 mg cap(s) (PROGRAF) 2 mg ORAL q 12 H 6a/6p Facility-Administered Medications Ordered in Other Encounters Medication Dose Route Frequency hydrALAZINE injection (APRESOLINE) INTRAVENOUS PRN Objective PHYSICAL EXAM: BP 105/35 Pulse 84 Temp (Src) 98.6 (Oral) Resp 16 Wt 273 lb 5.9 oz (124.0kg) SpO2 95% O2 Therapy: Room Air, Liters (Numeric Only): 1 Physical Exam Performed GENERAL: Alert, no distress, cooperative SKIN: Warm, well perfused. No rashes or lesions. NECK: No jugulovenous distention, Supple LUNGS: Lungs clear to auscultation, normal respiratory effort CARDIAC: RRR, Normal S1 and S2; no rubs, murmurs, or gallops ABDOMEN: Abdomen soft, non-tender, BS normal EXTREMITIES: trace pitting edema, no asymmetry NEURO: AANDOx3, Grossly non focal Lines, Drains, and Airways Line Duration Peripheral 12/02/24 1547 Right Forearm 20 Gauge 1 day Drain Duration Surgically Inserted Drain External Facility Suprapubic Left Pelvic -- days Colostomy 04/17/22 LLQ 961 days Patient does not currently have any lines, drains or airways. DATA: Diagnostic tests reviewed for today's visit: Most recent labs Most recent imaging Most recent EKG Assessment/Plan Problem List Assessment AND Plan Hyperkalemia Dermatitis associated with moisture ESRD (end stage renal disease) (HCC) Non-pressure chronic ulcer of other part of right foot with unspecified severity (HCC) # DD Kidney transplant 2020, failed # ESRD post-transplant # Hyperkalemia Hx of 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, neurogenic bladder and neurogenic bowel (s/p suprapubic catheter, colostomy, left BKA need for HD since 10/2022, access: L AVF, on tacro 2mg BID - Nephrology following, IHD planned for tomorrow - Cont tacro (goal 3-7) - Continue home sevelamer TID # Bilateral retinal detachments: blind, 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 Burton # Hx of HOOD segmental PE 2022 - Per chart review from OSH 11/2022: CTPE 10/14- acute PE in proximal left upper lobe segmental pulmonary arteries On heparin drip, restarted soon after BKA (11/09),changed to apixaban on 11/11/22 duration of anticoagulation likely to be lifelong (if no bleeding complications) given irreversible risk factors (immobility) - Continue Eliquis 2.5 mg BID # Hypothyroidism: continue home synthroid 150 mcg daily # Neurogenic bladder: suprapubic cath in place # Sacral and ischium pressure ulcers - follow wound care team recs # Hx of 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 2/ osteomyelitis Medication and Non-Pharmacologic VTE Prophylaxis/Anticoagulants Anticoagulant AND Antiplatelet Medications (From admission, onward) Start Dose Route Frequency Last Action Ordered Stop 12/02/241929 [Transfer Hold] apixaban 2.5 mg tab(s) (ELIQUIS) (apixaban tab(s) (ELIQUIS)) (The patient's transfer has not been completed. Release the transfer orders.) 2.5 mg PO 2 TIMES DAILY Given, 12/03 80012/02/24 1904 -- 12/02/241 activity - mobilize patient (oh,hi) VTE Prophylaxis: VTE prophylaxis appropriate Disposition: To be determined Plan of care discussed with Patient Plan communicated to: N/A SIGNATURE: Ming Abel MD PATIENT NAME: China Guillen DATE: December 03, 2024 TIME: 6:30 PM GAS + CO PNL BLDV Collected: 12:13 PM Status: F Source: [facility] Order Comment: Specimen Type : VENOUS BLOOD SPECIMEN Ordering Facility: [facility] Address: [address] [place] [address] [place] [address] TYPE CODE TESTS RESULT OUT OF RANGE REFERENCE UNITS LAB 2746-6(LOINC) pH BldV 7.43 High 7.32-7.42 LAB 2021-4(LOINC) pCO2 BldV 46 42-55 mmHg LAB 2705-2(LOINC) pO2 BldV 57 High 35-45 mmHg LAB 2711-0(LOINC) SaO2 % BldV 88 High 60-85 % LAB 1927-3(LOINC) Base excess BldV Calc-sCnc 5 High 0-2 mmol/L LAB 39186-0(LOINC) HCO3 BldV-sCnc 30 High 24-28 mmol/L LAB 2716-9(INC) OxyHgb MFr BldV 86 High 60-85 % LAB 2032-1(INC) COHgb MFr BldV 1.8 0.0-2.0 % Result Comment: Carboxyhemog lobin Reference Range for Smokers: 2.0-8.0% LAB 2614-6(INC) MetHgb MFr Bld 0.8 0.0-1.5 % LAB 2947-0(INC) Sodium Bld-sCnc 139 136-144 mmol/L LAB 6298-4([facility]) Potassium Bld-sCnc 4.0 3.5-5.0 mmol/L LAB 12935-5(INC) Ca-I Bld-mCnc 1.16 1.08-1.30 m mol/L LAB 64838-5([facility]) Ca-I adj pH7.4 BldA-sCnc 1.17 1.08-1.30 mmol/L LAB 2339-0(INC) Glucose Bld-mCnc 145 High 60-105 mg/dL LAB 69638-7(INC) Lactate Bld-sCnc 1.1 0.5-2.2 mmol/L LAB 718-7([facility]) Hgb Bld-mCnc 11.8 Low 13.0-17.0 g/dL LAB 4544-3(INC) Hct VFr Bld Auto 36.4 Low 39.0-51.0 % LAB VTMP TEMPERATURE, BODY 37.0 C LAB VO2TH O2 THERAPY RA=Room Air Performed By: #### 56131-5 # ### [facility] CLIA [id number] [address] [place] [address] [place] Observed: 12/03/2024 10:40 AM Status: COMPLETED Source: [facility] HNO ID: [id number] Author: SHARON DALY APRN.MEAT CUTTER Service: Wound Care Team Author Type: Nurse Practitioner Type: Consults Filed: 12/03/2024 10:54 Note Text: WOUND CARE SERVICE TRENCH TRIMMER FINE CONSULT NOTE SERVICE DATE: 12/03/2024 SERVICE TIME: 857 Wound Consult (From admission, onward) Start Ordered 12/02/242229 Wound Care Consult ONCE Electronically Signed By: Karen Mueller MD [ ] 12/02/242218 CHIEF COMPLAINT: It healed Referring to the left ischial wound Subjective Patient is seen at the request of Karen Mueller MD for my opinion regarding a potential pressure injury. My final recommendations will be communicated back to the requesting physician by way of copy of this note or shared electronic medical record. HISTORY OF PRESENT ILLNESS: China Guillen is a 39 year old male is being seen with the admitting diagnosis of Hyperkalemia [E87.5] being managed by primary team. Pt was last seen last admission by WCCT on 06/16/24, where he had a healing stage 4 pressure injury to the left ischium. Upon assessment left ischium is now healed, dry scar tissue present upon assessment. Coccyx with MASD, healed scare tissue from previous wound present. Wound to the right plantar foot with small healing wound present. This pt is at high risk for acquiring a pressure injury, especially at previous pressure injury sites. REVIEW OF SYSTEMS: GENERAL: No weight loss, malaise or fevers. RESPIRATORY: Negative for cough, SOB, and CUEVAS CARDIOVASCULAR: CHF, HTN GI: No nausea, vomiting, or diarrhea : No history of dysuria, frequency or incontinence SKIN: Negative for lesions, rash, and itching., See wound documentation PAST MEDICAL HISTORY Diagnosis Date Acquired absence of left leg above knee (HCC) Acquired absence of other right toe(s) (HCC) Acute infarction of spinal cord (HCC) Acute kidney failure, unspecified Acute osteomyelitis of left ankle or foot (HCC) Acute pulmonary edema (HCC) Anemia Anemia in chronic kidney disease (CKD) Body mass index 40.0-44.9, adult ([facility]) Cerebral infarction due to unspecified occlusion or stenosis of unspecified cerebral artery ([facility]) Chronic kidney disease (CKD), stage IV (severe) ([facility]) Chronic systolic (congestive) heart failure (HCC) Congestive heart failure (CHF) ([facility]) Dependence on renal dialysis Depression Diabetes mellitus with chronic kidney disease ([facility]) End stage renal disease ([facility]) ESRD (end stage renal disease) ([facility]) Essential hypertension GERD (gastroesophageal reflux disease) Heart failure ([facility]) HLD (hyperlipidemia) Hyperkalemia Hyperlipidemia Hypertension Hypertensive heart and chronic kidney disease with heart failure and stage 1 through stage 4 chronic kidney disease, or chronic kidney disease ([facility]) Hypo-osmolality and hyponatremia Hypomagnesemia Hypothyroidism Insomnia Insomnia Kidney transplant failure ([facility]) Kidney transplant status ([facility]) 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 ([facility]) Major depressive disorder, recurrent, unspecified Mood disorder Morbid (severe) obesity due to excess calories ([facility]) Muscle weakness Neurogenic bowel Neurogenic bowel, not elsewhere classified Neuromuscular dysfunction of bladder Neuromuscular dysfunction of bladder Neuropathy Non-pressure chronic ulcer of other part of unspecified foot with unspecified severity ([facility]) Obstructive sleep apnea Osteomyelitis of vertebra, sacral and sacrococcygeal region ([facility]) Other disorders of phosphorus metabolism Other idiopathic peripheral autonomic neuropathy Other pericardial effusion (noninflammatory) ([facility]) Other pulmonary embolism without acute cor pulmonale, unspecified chronicity ([facility]) Paraplegia ([facility]) Paraplegia, incomplete ([facility]) PDR (proliferative diabetic retinopathy) ([facility]) Penile erosion 04/23/2023 Pressure ulcer of ischium, stage 4 ([facility]) Pressure ulcer of left buttock, unspecified stage 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 Right foot ulcer ([facility]) Sepsis ([facility]) T1DM (type 1 diabetes mellitus) ([facility]) Total, mature age-related cataract Type 2 diabetes ([facility]) Unspecified protein-calorie malnutrition ([facility]) UTI (urinary tract infection) Vitamin D deficiency PAST SURGICAL HISTORY Procedure Laterality Date COLOSTOMY TRANSPLANTATION OF KIDNEY WOUND DEBRIDEMENT HX 4 times of the wound Social History Tobacco Use Smoking status: Never Smokeless tobacco: Never Vaping Use Vaping status: Never Used Substance Use Topics Alcohol use: Never Drug use: Never FAMILY HISTORY Problem Relation Age of Onset No Known Problems Father Diabetes Mother No Known Problems Sister No Known Problems Brother No Known Problems Maternal Grandmother No Known Problems Maternal Grandfather No Known Problems Paternal Grandmother Cancer Paternal Grandfather Cancer Other Glaucoma Other Cataract Other Detached Retina No Family History Macular Degen No Family History Blindness No Family History Hypertension No Family History Heart No Family History MEDICATIONS: Current Facility-Administered Medications Medication Dose Route Frequency apixaban 2.5 mg tab(s) (ELIQUIS) 2.5 mg ORAL BID NaCl 0.9% iv flush bag 20 mL INTRAVENOUS PRN acetaminophen 1,000 mg tab(s) (TYLENOL) 1,000 mg ORAL/FEEDING TUBE q 8 H PRN dextrose 15 gram/32 mL 15 g (TRUEPLUS) 15 g ORAL PRN glucagon 1 mg injection 1 mg SUBCUTANEOUS PRN dextrose 10% iv bolus 12.5-25 g INTRAVENOUS PRN insulin regular human injection (short acting) SUBCUTANEOUS w MEALS AND HS atorvastatin 40 mg tab(s) (LIPITOR) 40 mg ORAL AT BEDTIME cloNIDine HCl 0.2 mg tab(s) (CATAPRES) 0.2 mg ORAL BID hydrALAZINE 50 mg tab(s) (APRESOLINE) 50 mg ORAL TID carvedilol 50 mg tab(s) (COREG) 50 mg ORAL BID w MEALS sevelamer carbonate 2,400 mg tab(s) (RENVELA) 2,400 mg ORAL TID w MEALS levothyroxine 150 mcg (SYNTHROID) 150 mcg ORAL BEFORE BREAKFAST DAILY mupirocin 2 % 0.5 g nasal ointment (BACTROBAN) 0.5 g NASAL BID gabapentin 100 mg cap(s) (NEURONTIN) 100 mg ORAL DAILY [START ON 12/04/2024] pantoprazole DR 40 mg tab(s) (PROTONIX) 40 mg ORAL DAILY (6 AM) ciprofloxacin HCl 0.3 % 1 drop (CILOXAN) 1 drop RIGHT EYE QID prednisoLONE acetate 1 % 1 drop (PRED FORTE) 1 drop RIGHT EYE QID cyclopentolate 1 % 1 drop (CYCLOGYL) 1 drop RIGHT EYE BID Facility-Administered Medications Ordered in Other Encounters Medication Dose Route Frequency hydrALAZINE injection (APRESOLINE) INTRAVENOUS PRN ALLERGIES No Known Allergies Objective PHYSICAL EXAM: BP 155/67 Pulse 85 Temp (Src) 98.2 (Oral) Resp 16 Wt 273 lb 5.9 oz (124.0kg) SpO2 92% O2 Therapy: Nasal Cannula, Liters (Numeric Only): 1 PHYSICAL EXAMINATION: General appearance: Alert, in no acute distress, pleasant and cooperative Skin: Skin color, texture, turgor normal, no suspicious rashes or lesions, wounds (See below) Joe score: 17 Extremities: L-BKA Musculoskeletal: 2 assist with turns in bed Neuro: Oriented X 3, [place] Presenting wound information: Wound 06/15/24 2300 Diabetic Ulcer Foot Right;Lateral;Plantar (Active) Assessments 12/03/2024 9:03 AM Wound Image Site Assessment Hyperpigmentation;White;Brown Monie-Wound Assessment Hyperpigmented;Scarred Wound Length (cm) 2.2 cm Wound Width (cm) 1.8 cm Wound Surface Area (cm2) 3.96 cm2 Wound Depth (cm) 0.2 cm Wound Volume (cm3) 0.792 cm3 Drainage Description Serosanguineous Drainage Amount Scant Odor None Monie-Wound Treatment Skin Prep Treatments Cleansed Dressing Aquacel;Foam- Adhesive Dressing Changed Changed Dressing Status Clean;Dry;Intact Wound 06/16/24 0834 Moisture Coccyx (Active) Assessments 12/03/2024 9:03 AM Wound Image Site Assessment [place] Monie-Wound Assessment Moist ;Scarred Drainage Description Colorless Drainage Amount Scant Odor None Treatments Cleansed;Open to Air Left ischium- Healed DATA Diagnostic tests reviewed for today's visit: Wound photo Most recent labs and imaging results. Impression/Recommendations Impression - Coccyx- Moisture associated skin damage - Right plantar foot- Full thickness wound Recommendations Plan - Right plantar foot - Remove old dressing, cleanse wound with normal saline/wound cleanser and then dry. [place] the base of the wound with Betadine. Then apply Biatain Alginate Ag to base of wound and cover with foam adhesive. Change every other day and as needed - Coccyx- Apply Critic-aid Clear to perianal area and coccyx extending onto bilateral buttocks BID and as needed. Prevention - Maintain Jean-Ramesh heel protectors to right lower extremity, to off-load heel, while in bed. - Maintain turning and positioning system to off-load patient's coccyx/ischium every 2 hours. - Obtain bed with New Bizimply Bed IsoTour Blower, for low air-loss feature when pt transferred out of the ICU. - WCCT will sign off on patient. Please reconsult if further needs arise. Barriers to Healing: Body habitus, Comorbid conditions, Mobility, and Moisture Pressure Injury Prevention: Heel offloading, Low air loss surface, Moisture management, Redistribution surface, Turn schedule, and Turning positioner/wedge Counseling Provided: Prevention, Dressing/ointments, Observations Follow Up: Information provided to Patient, Wound care will continue to follow patient, reconsult if wounds worsens. PHOTOGRAPHY: A photo was taken of the patient's wound(s). Photos can be found in Chart Review under the Scanned Docs tab in [employer]. The purpose of the photo(s) is to optimize the patient's medical care and allow a visual aid to their wound evaluation and progress. Photo was taken of: Foot, Coccyx, Ischium Thank you for including me in the care of this patient. Please re-consult our service if further wound care needs arise. I spent a total of 35 minutes on the date of the service which included preparing to see the patient, [id number] patient care, completing clinical documentation, performing a medically appropriate examination, counseling and educating the patient/family/caregiver, and communicating with other HCPs (not separately reported). SIGNATURE: Sharon Daly, MSN, TRENCH TRIMMER FINE, MEAT CUTTER, CWOCN PATIENT NAME: China Giullen DATE: December 03, 2024 TIME: 10:41 AM PROGRESS Observed: 12/03/2024 10:28 AM Status: COMPLETED Source: [facility] ID: [id number] Author: JEIMY FORTE MD Service: Critical Care Author Type: Physician Type: Progress Notes Filed: 12/03/2024 13:26 Note Text: MICU PROGRESS NOTE SERVICE DATE: 12/03/2024 SERVICE TIME: 10:29 AM Admission Date: 12/02/2024 Hospital Day # 1 Assessment/Plan Indication for MICU Admission: Hyperkalemia Significant PMH/PSH: -ESRD s/p failed kidney transplant now ESRD since 2022, diabetes type 1, pressure ulcer of sacrum, GERD, depression, anemia, HLD, cerebral infarct, spinal cord infarction c/b paraplegia, neurogenic bladder, neurogenic bowel s/p colostomy, chronic osteomyelitis, HTN, migraine Hospital Course: Patient was at [facility] and he underwent vitrectomy and cataract surgery. Post operatively he was found to have K of 6.4 and was sent to the ED for further management of hyperkalemia. In the ED his K was 7 and he received potassium depleting cocktail as well as Kayexalate but repeat K was 7.5. He received another round of potassium depleting cocktail and Lokelma as well as Lasix 80mg. Patient states he usually has dialysis on MWF. His last session of dialysis wa son Saturday. He did not have dialysis today as per schedule due to his surgery. Admitted to MICU for urgent BEAUTY ARTIST. Significant New Events Past 24 hrs: Received short session of BEAUTY ARTIST overnight, K this AM 5.5, planning for IHD this AM A/P of Major Active Problems: # Bilateral retinal detachments: blind, s/p left mechanical vitrectomy 12/02, f/up ophtho recs # Neurogenic bladder: suprapubic cath in place # Hx of HOOD segmental PE 2022 - Per chart review from OSH 11/2022: CTPE 10/14- acute PE in proximal left upper lobe segmental pulmonary arteries On heparin drip, restarted soon after BKA (11/09),changed to apixaban on 11/11/22 duration of anticoagulation likely to be lifelong (if no bleeding complications) given irreversible risk factors (immobility) - Continue Eliquis 2.5 mg BID # HTN - Home meds: Carvedilol 50mg BID, Hydralazine 50mg TID, Amlodipine 5mg daily and Clonidine 0.2 mg BID # DD Kidney transplant 2020, failed # ESRD post-transplant # Hyperkalemia - 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, neurogenic bladder and neurogenic bowel (s/p suprapubic catheter, colostomy, left BKA - On HD since 10/2022, MWF but missed dialysis 12/02 - Access: left AVF - Home IS meds: tacrolimus 2mg BID - Hyperkalemic on admission at 7.5, treated medically in ED with calcium gluconate, SPS, and IV lasix PLAN: - Nephrology following, IHD this AM - Cont tacro (goal 3-7) - Continue home sevelamer TID # Hypothyroidism: continue home synthroid 150 mcg daily # Sacral and ischium pressure ulcers: wound care consult # Hx of 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 2/2 osteomyelitis Barriers to transfer out of MICU: None, RNF after IHD Principal Problem: Hyperkalemia Active Problems: ESRD (end stage renal disease) (HCC) Objective PHYSICAL EXAM PERFORMED: HEENT: Oral Mucosa: Moist mucous membranes Eyes: pupils non-reactive, blind Cardiovascular: Regular rhythm Respiratory: Clear to auscultation Vent/Oxygen: Supplemental Oxygen: Yes. FiO2 1L NC Abdomen: Soft Extremities: Edema- Yes Neurologic: Awake, oriented, Alert, and Follows commands ICU Checklist Last Documented/Reviewed time: 12/03/2024 10:39 AM ICU Consent Complete?: Yes ICU Code Status History assess/Full code by default: No, active code status present A= Assess, Prevent, Manage Pain Pain adequately controlled?: Yes C= Choice of Sedation and Analgesia RASS at Goal?: Yes B= Both Spontaneous Awakening and Breathing Trials Ventilator: None D= Delirium: Assess, Prevent and Manage ICU Delirium Status: CAM Negative - no action required Sleep adequate?: Yes Restraint Status: None E= Early Mobility/Excercise ICU Mobility: ICU Mobility Goal: PT/OT consult ordered F= Family Engagement and Empowerment ICU plan of care visit at bedside in last 24 hours: Yes, Provider, RN, Patient/ designee ICU Disposition: ICU Disposition-POC Detail: To be determined Prevention: Line Status: None Hurst Status: None Pressure Injury Status: None GI/Stress Ulcer Prophylaxis: PPI Nutrition is at Goal: Yes VTE Prophylaxis: Chemoprophylaxis: Therapeutic Anticoagulation SIGNATURE: Soni Baker PA-C PATIENT NAME: China Guillen DATE: December 03, 2024 TIME: 10:29 AM Attending Note I have personally performed a face to face assessment of the patient and have reviewed the YUE note. I performed a substantive portion of the visit including all aspects of the following. My brar findings include: Medical Decision Making Admitted for asymptomatic hyperkalemia S/p IHD x2 Cont immune suppression per nephro Eye care per ophthalmology Ok for RNF Other additions or changes: None Signature: Jeimy Forte MD Date: 12/03/2024 Time: 1:25 PM CASE MGT YASSINE ORTIZ Observed: 12/03/2024 10:04 AM Status: COMPLETED Source: [facility] HNO ID: [id number] Author: DIAN ADLER LSW Service: Care Management Author Type: Meat Stringer Type: Care Mgt Initial Assessment Filed: 12/03/2024 10:04 Note Text: CARE MANAGEMENT: ASSESSMENT AND DISCHARGE PLAN SERVICE DATE: December 03, 2024 SERVICE TIME: 10:04 AM PCP: Lang Peres DO Primary Contact: No emergency contact information on file. Admission Status: Inpatient Insurance Provider: [facility] MEDICARE ADVANTAGE PPO Discharge Planning requested by: Per Department Practice Potential Transition Plans To Be Determined Advance Directives Current Advance Directive: Health Care Power of Counseling Case Manager In Chart: No Chandelier Maker Attempted to Assist with AD Completion: Yes Action: Education Provided, Patient Unwilling Current Living Arrangements and Support Lives with: Other person(s) (Pt is from [facility]) Pt is from [facility] Type of Residence: Extended Care Facility (Pt is from [facility]) Care Facility Name: Pt is from [facility] Support: Friends/neighbors, Family members How do you manage to accomplish the following: Needs Assistance: Ambulation, Bathe/Shower, Dress, Meals/Meal Prep, Going to the bathroom, Medication Management, Transportation to appointments/community Current Services/Equipment Current Post-Acute Service(s): Other: See Comment, Dialysis (Pt is from [facility]) Discharge Planning Patient Goal(s): General wellness [place] of Choice Explained: [place] of Choice Given: Yes (Pt reported preference to return to [facility]) Are you interested in bedside delivery of your medications? Yes Discharge Planning Participant(s): Patient Patient/Family Comments: . Pt reported: I'm from [facility]. Yes I like this place and want to go back Caregiver Assessment: Caregiver is ready, willing and able to meet the patient's needs as recommended by the inter-professional team: Other: See Comment (TBD) Transport at Discharge: Transportation Arrangements: Ambulance Transportation Agency and Phone #:: [facility] [phone] Destination: [facility] Financial Care Management Responsibility: None Needs Prior to Discharge: Needs Prior to Discharge: To Be Determined SW met with pt at bedside to complete this assessment. SW introduced herself and explained SW role. Pt is a 39 year old male admitted to MICU for further management of care. Pt reported: I'm from [facility]. Yes I like this place and want to go back. I need help getting around and [facility] provides me with everything I need. Yes they take me to my dialysis sessions. SW provided emotional support and thanked pt for preference. SW then asked pt for family emergent contact information pt reported- I have sister her name is Valente [phone] and she lives in [place]. SW thanked pt for family contact information. Needs TBD, pt is from [facility]. Will need ambulance transport arranged closer to discharge date.SW will continue to follow. This SW then received phone call from [facility] [[phone]] admission rep Toni who reported: China is from our ECF at [facility] and yes we are willing to re-accept him please call us at [phone] once he is ready to return to our facility. SW thanked admission rep for this information. Please see Treatment Team for Care Management Weekend coverage. SIGNATURE: DAMARI Carver PATIENT NAME: China Guillen DATE: December 03, 2024 TIME: 10:04 AM CONSULT Observed: 12/03/2024 8:53 AM Status: COMPLETED Source: [facility] ID: [id number] Author: MORALES DÍAZ MD Service: Ophthalmology Author Type: Resident Type: Consults Filed: 12/23/2024 14:52 Note Text: Attestation signed by Morales Díaz MD at 12/23/2024 2:52 PM I have confirmed and edited as necessary the relevant ophthalmic history, ROS, and the neuro exam findings as obtained by others. I have not seen and personally examined this patient. I have discussed the case and the management of this patient's care with the Resident/Fellow, if applicable. I also have reviewed and agree with the assessment and plan as stated above and agree with all of its relevant components. Morales Díaz MD OPHTHALMOLOGY CONSULTATION ASSESSMENT/RECOMMENDATIONS POD1 s/p CE/PCIOL, PPV/EL/AFx, right eye -Doing well no pain -VA HM, IOP 12, Conj is closed, AC deep, retina appears flat Plan Start oflaxacin QID right eye (ordered) Start prednisolone QID, right eye (ordered) Start Cyclopentolate BID, right eye (ordered) Wear eye patch at night AVOID LAYING FLAT ON BACK Patient instructions attached below this note Follow-up: [address] Burton as outpatient (we will schedule). Please page ophthalmology if still admitted at that time Pranay Nuno MD Ophthalmology Resident Staffed with Vitreoretinal fellow Dr. Díaz [place] [phone] with any questions or concerns Commonly used ophthalmology abbreviations: AC: Anterior chamber; ACIOL: Anterior chamber intraocular lens; APD, RAPD: (Relative) Afferent pupillary defect; ARMD, AMD: Age-related macular degeneration; ASC: Anterior subcapsular cataract; BRAO/BRVO: Branch retinal artery/vein occlusion; BCL: bandage contact lens; cc: With correction; CDR: Cup disk ratio; CE/IOL: Cataract extraction with intraocular lens implant; CF: Counting fingers; CL, CTL: Contact lens; CME: Cystoid macular edema; CNV, CNVM: Choroidal neovascularization; CRAO/CRVO: Central retinal artery/vein occlusion; CRS: Chorioretinal scar; CR, CRX: Cycloplegic refraction; JUNIOR: Dry eye syndrome; DME: Diabetic macular edema; DR: Diabetic retinopathy; ERM: Epiretinal membrane; ET: esotropia; GDI: Glaucoma drainage implant; HM: Hand motions; HVF: Macario visual field; IOL: Intraocular lens; IOP: Intraocular pressure; IRF: Intra-retinal fluid; IRH: Intra-retinal hemorrhage; K: Cornea or Keratometry; KP; Keratic precipitates; LP: Light perception; LPI: Laser peripheral iridotomy; MA: Microaneurysm; MGD: Meibomian gland dysfunction; MH: Macular hole; MP: Membrane peeling or macular pucker; MR, MRX: Manifest refraction; NAION: Non-arteritic ischemic optic neuropathy; NLP: No light perception; NPDR: Nonproliferative diabetic retinopathy; NVA/NVD/NVE: Neovascularization of the angle/disc/elsewhere; NVG: Neovascular glaucoma; NVI: Neovascularization of iris (rubeosis iridis); OCT: Optical coherence tomography; OD: Oculus jd (right eye); OS: Oculus sinister (left eye); OU: Oculus uterque (both eyes); PAS: Peripheral anterior synechiae; PC: Posterior chamber; PCIOL: Posterior chamber intraocular lens; PCO: Posterior capsule opacity; PDR: Proliferative diabetic retinopathy; PEE; Punctate epithelial erosion; PERRL(A): Pupils equal, round, reactive to light and accommodation; PH: Pinhole; PI: Peripheral iridotomy; PK, PKP: Penetrating keratoplasty; POAG: Primary open-angle glaucoma; PPA: Peripapillary atrophy; PPV: Pars plana vitrectomy; PRP: Panretinal photocoagulation; PS: Posterior synechiae; PSC: Posterior subcapsular cataract; PVD: Posterior vitreous detachment; PVR: Proliferative vitreoretinopathy; (R)RD: (rhegmatogenous) Retinal detachment; SB: Scleral buckle; sc: Without correction; SLT: Selective laser trabeculoplasty; SO, SiO: Silicone oil; SPK: Superficial punctate keratopathy; SRF/SRH: Subretinal fluid/hemorrhage; TBUT: Tear breakup time; VA: Visual acuity; VF: Visual field; VH: Vitreous hemorrhage; XT: Exotropia INSTRUCTIONS FOR PATIENT It is very important to follow these instructions after vitreoretinal eye surgery to ensure its success. Eye Protection - Wear an eye patch at night to prevent damage to the eye while you are sleeping. Pain-relieving medications - You may take acetaminophen to relieve pain. Follow the instructions on the bottle. Do not use aspirin or products containing aspirin during the first month after surgery. Diet - If you feel sick to you stomach, drink only clear liquids. Clear liquids include: clear broth, tea, strained fruit juices, strained vegetable soup, black coffee, plain gelatin, and chandrakant tiesha. Eat a regular meal when you do not feel sick. Do not drink alcoholic beverages for 24 hours after the surgery. Position after surgery - Not flat on back. Eye medications - You will be given a home-going kit with eye drops. Please bring that kit, this handout and any previous eye drops you have to your appointment tomorrow. Your eye medications will be explained during your appointment tomorrow. How to give yourself eye drops or ointment Wash your hands with soap and warm water. Dry them with a clean towel. If you are putting in your own eye medicine, lie down or use a mirror. Ask someone to check that you are getting the medicine in your eye. Look up to the ceiling with both eyes. Pull the lower lid of your eye down with one hand. Hold the medicine bottle or tube in your other hand. (If necessary, rest part of your hand on your forehead to keep it steady). Place a drop of medicine or a small amount of ointment inside your lower lid. The tip of the medicine bottle or tube should not touch your eye. Close your eyes for a minute after putting in the medicine. If you are prescribed both eye drops and eye ointment, use the eye drops first. If you have more than one eye medicine to put in your eyes, wait about 5 minutes after the first medicine before putting the second medicine. Avoid the following activities for 2 weeks after surgery: Bending Swimming Heavy lifting Working in magdi places Strenuous exercise or activity Activities that might injure your eye Call your surgeon immediately if you experience: Increased or severe eye pain Bleeding from the eye Sudden decrease in vision or decreased ability to see light Discharge from the eye Any questions or problems Call your doctor immediately or go to the nearest emergency room if you experience: Nausea or vomiting that won't go away Chest pain Leg cramps A temperature above 101?F or 38.3?C Trouble breathing Contact Dr. Munir Burton at [phone] weekdays from 8am-5pm During non-business hours, please call [phone] or ext [phone] and ask for the eye doctor press operator carbon products. GAS + CO PNL BLDV Collected: 5 6:52 AM Status: F Source: [facility] Comment: Specimen Type : VENOUS BLOOD SPECIMEN Ordering Facility: [facility] Address: [address] [place] [address] TYPE CODE TESTS RESULT OUT OF RANGE REFERENCE UNITS LAB 2746-6(LOINC) pH BldV 7.40 7.32-7.42 LAB 2020-4(LOINC) pCO2 BldV 50 42-55 mmHg LAB 2705-2(LOINC) pO2 BldV 51 High 35-45 mmHg LAB 2711-0(LOINC) SaO2 % BldV 84 60-85 % LAB 1927-3(LOINC) Base excess BldV Calc-sCnc 5 High 0-2 mmol/L LAB 20728-8(LOINC) HCO3 BldV-sCnc 30 High 24-28 mmol/L LAB 2716-9(LOINC) OxyHgb MFr BldV 81 60-85 % LAB 2032-1(LOINC) COHgb MFr BldV 2.0 0.0-2.0 % Result Comment: Carboxyhemog lobin Reference Range for Smokers: 2.0-8.0% LAB 2614-6(LOINC) MetHgb MFr Bld 1.0 0.0-1.5 % LAB 2947-0(LOINC) Sodium Bld-sCnc 138 136-144 mmol/L LAB 6298-4(LOINC) Potassium Bld-sCnc 5.5 High 3.5-5.0 mmol/L LAB 36169-0(LOINC) Ca-I Bld-mCnc 1.13 1.08-1.30 mmol/L LAB 42467-8(LOINC) Ca-I adj pH7.4 BldA-sCnc 1.12 1.08-1.30 mmol/L LAB 2339-0(LOINC) Glucose Bld-mCnc 155 High 60-105 mg/dL LAB 37220-8(LOINC) Lactate Bld-sCnc 1.2 0.5-2.2 mmol/L LAB 718-7(LOINC) Hgb Bld-mCnc 11.8 Low 13.0-17.0 g/dL LAB 4544-3(LOINC) Hct VFr Bld Auto 36.5 Low 39.0-51.0 % LAB VTMP TEMPERATURE, BODY 37.0 C LAB LITERBG LITERS 1 Liters/m in LAB VO2TH O2 THERAPY NC = Nasal Cannula Performed By: #### 58395-2 # ### [facility] CLIA [id number] [address] [place] [address] [place] TACROLIMUS BLD-MCNC Collected: 12/04/19 5:16 AM Status: F Source: [facility] Order Comment: Specimen Type : BLOOD SPECIMEN Ordering Facility: [facility] Address: [address] [place] [address] TYPE CODE TESTS RESULT OUT OF RANGE REFERENCE UNITS LAB 76052-7([facility]) Tacrolimus Bld-mCnc 3.8 Low 5.0-20.0 ng/mL Result Comment: Individualiz ed target levels for a given patient will depend on many factors (including the type of organ transplant, time since transplantation, concurrent medications, and other clinical factors), and should be assessed by those health care providers experienced in the management of immunosuppression. Reference ranges and high/low indicator flags are provided as general guidelines only. The treating physician must determine appropriate target levels/dosing based on the specific clinical situation. Test performed by chemiluminescent immunoassay using Buchanan Alinity i. Performed By: #### 21987-7 # ### [facility] CLIA [id number] [address] [place] [address] [place] BAS METAB 2000 PNL SERPL Collected: 5:16 AM Status: F Source: [facility] Comment: Specimen Type : BLOOD SPECIMEN Ordering Facility: [facility] Address: [address] [place] [address] TYPE CODE TESTS RESULT OUT OF RANGE REFERENCE UNITS LAB 2345-7(LOINC) Glucose SerPl-mCnc 148 High 74-99 mg/dL Result Comment: The [place] Diabetes Association (ADA) provides guidance for cutoff values for fasting glucose and random glucose. The ADA defines fasting as no caloric intake for at least 8 hours. Fasting plasma glucose results between 100 to 125 mg/dL indicate increased risk for diabetes (prediabetes). Fasting plasma glucose results greater than or equal to 126 mg/dL meet the criteria for diagnosis of diabetes. In the absence of unequivocal hyperglycemia, results should be confirmed by repeat testing. In a patient with classic symptoms of hyperglycemia or hyperglycemic crisis, random plasma glucose results greater than or equal to 200 mg/dL meet the criteria for diagnosis of diabetes. Reference: Standards of Medical Care in Diabetes 2016, [place] Diabetes Association. Diabetes Care. 2016.39(Suppl 1). LAB 3094-0(LOINC) BUN SerPl-mCnc 62 High 9-24 mg/ dL LAB 2160-0(LOINC) Creat SerPl-mCnc 7.26 High 0.73-1.22 mg/dL LAB 2951-2(LOINC) Sodium SerPl-sCnc 132 Low 136-144 mmol/L LAB 2823-3(LOINC) Potassium SerPl-sCnc Result Comment: Unable to as say due to interference from hemolysis. Suggest reorder as clinically indicated. LAB 2075-0(LOINC) Chloride SerPl-sCnc 91 Low 98-107 mmol/L LAB 2028-9(LOINC) CO2 SerPl-sCnc 26 22-30 mmo l/L LAB 67731-9(LOINC) Anion Gap SerPl-sCnc 15 8-15 mmol/L LAB 67607-6(LOINC) Calcium SerPl-mCnc 9.3 8.5-10.2 mg/dL LAB 88263-0(LOINC) Creatinine + eGFR Pnl SerPlBld 9 Low >=60 mL/min/1 .73m??? Result Comment: Estimated Gl omerular Filtration Rate (eGFR) is calculated using the 2020 CKD-EPI creatinine equation. This equation utilizes serum creatinine, sex, and age as parameters. The creatinine assay has traceable calibration to isotope dilution-mass spectrometry. Refer to KDIGO guidelines for clinical interpretation. In patients with unstable renal function, e.g. those with acute kidney injury, the eGFR may not accurately reflect actual GFR. Performed By: #### 20617-0, #### [facility] CLIA [id number] [address] [place] [address] MAGNESIUM SERPL-MCNC Collected: 12/03/2024 5:16 AM S tatus: F Source: [facility] Order Comment: Specimen Type : BLOOD SPECIMEN Ordering Facility: [facility] Address: [address] [place] [address] TYPE CODE TESTS RESULT OUT OF RANGE REFERENCE UNITS LAB 09880-8([facility]) Magnesium SerPl-mCnc 2.3 1.7-2.3 mg/dL Performed By: #### 35530-4, #### [facility] CLIA [id number] [address] [place] [address] CBC PNL BLD AUTO Collected: 5:16 AM Status: F Source: [facility] Order Comment: Specimen Type : BLOOD SPECIMEN Ordering Facility: [facility] Address: [address] [place] [address] TYPE CODE TESTS RESULT OUT OF RANGE REFERENCE UNITS LAB 6690-2(LOINC) WBC # Bld Auto 4.74 3.70-11.00 k/uL LAB 789-8(LOINC) RBC # Bld Auto 3.92 Low 4.20-6.00 m/uL LAB 718-7(LOINC) Hgb Bld-mCnc 11.9 Low 13.0-17.0 g/dL LAB 4544-3(LOINC) Hct VFr Bld Auto 36.3 Low 39.0-51.0 % LAB 787-2(LOINC) MCV RBC Auto 92.6 80.0-100.0 fL LAB 785-6(LOINC) MCH RBC Qn Auto 30.4 26.0-34.0 pg LAB 786-4(LOINC) MCHC RBC Auto-mCnc 32.8 30.5-36.0 g/dL LAB 41210-8(LOINC) RDW RBC-Rto 14.9 11.5-15.0 % LAB 777-3(LOINC) Platelet # Bld Auto 173 150-400 k/uL LAB 30669-4([facility]) PMV Bld Auto 11.5 9.0-12.7 fL LAB 771-6([facility]) nRBC # Bld Auto <0.01 <0.01 k/uL Performed By: #### 18156-4 # ### [facility] CLIA [id number] [address] [place] [address] [place] BUN P DIALYSIS SERPL-MCNC Collected: 12/03/2024 5:07 AM Status: F Source: [facility] Order Comment: Specimen Type : BLOOD SPECIMEN Ordering Facility: [facility] Address: [address] [place] [address] TYPE CODE TESTS RESULT OUT OF RANGE REFERENCE UNITS LAB 96375-2([facility]) BUN p dialysis SerPl-mCnc 57 High 9-24 mg/dL LAB BUNRAT UREA REDUCTION RATIO WITH BUNPR 37 % Performed By: #### 94170-8 # ### [facility] CLIA [id number] [address] [place] [address] [place] BUN PRE DIAL SERPL-MCNC Collected: 12/03/2024 2:33 AM Status: F Source: [facility] Comment: Specimen Type : BLOOD SPECIMEN Ordering Facility: [facility] Address: [address] [place] [address] TYPE CODE TESTS RESULT OUT OF RANGE REFERENCE UNITS LAB 41990-4([facility]) BUN pre dial SerPl-mCnc 90 High 9-24 mg/dL Performed By: #### 42263-7 # ### [facility] CLIA [id number] [address] [place] [address] [place] GAS + CO PNL BLDV Collected: 1:51 AM Status: F Source: [facility] Comment: Specimen Type : VENOUS BLOOD SPECIMEN Ordering Facility: [facility] Address: [address] [place] [address] TYPE CODE TESTS RESULT OUT OF RANGE REFERENCE UNITS LAB 2746-6([facility]) pH BldV 7.38 7.32-7.42 LAB 2021-4(LOINC) pCO2 BldV 49 42-55 mmHg LAB 2705-2(LOINC) pO2 BldV 61 High 35-45 mmHg LAB 2711-0(LOINC) SaO2 % BldV 89 High 60-85 % LAB 1927-3(LOINC) Base excess BldV Calc-sCnc 3 High 0-2 mmol/L LAB 43522-6(LOINC) HCO3 BldV-sCnc 28 24-28 mmol/L LAB 2716-9(INC) OxyHgb MFr BldV 86 High 60-85 % LAB 2032-1(INC) COHgb MFr BldV 1.9 0.0-2.0 % Result Comment: Carboxyhemog lobin Reference Range for Smokers: 2.0-8.0% LAB 2614-6([facility]) MetHgb MFr Bld 1.5 0.0-1.5 % LAB 2947-0(INC) Sodium Bld-sCnc 133 Low 136-144 mmol/L LAB 6298-4(INC) Potassium Bld-sCnc 6.7 High Alert 3.5-5.0 mmol/L LAB 69814-7([facility]) Ca-I Bld-mCnc 1.12 1.08-1.30 mmol/L LAB 93391-6([facility]) Ca-I adj pH7.4 BldA-sCnc 1.11 1.08-1.30 mmol/L LAB 2339-0(INC) Glucose Bld-mCnc 232 High 60-105 mg/dL LAB 93549-1(INC) Lactate Bld-sCnc 1.2 0.5-2.2 mmol/L LAB 718-7(INC) Hgb Bld-mCnc 12.1 Low 13.0-17.0 g/dL LAB 4544-3(INC) Hct VFr Bld Auto 37.2 Low 39.0-51.0 % LAB VTMP TEMPERATURE, BODY 37.0 C LAB LITERBG LITERS 1 Liters/m in LAB VO2TH O2 THERAPY NC = Nasal Cannula Performed By: #### 96622-6 # ### [facility] CLIA [id number] [address] [place] [address] STATES OF [place] CONSULT Observed: 12/02/2024 10:59 PM Status: COMPLETED Source: [facility] ID: [id number] Author: JR BERNAL MD Service: Nephrology Author Type: Fellow Type: Consults Filed: 12/03/2024 14:02 Note Text: Attestation signed by Jr Bernal MD at 12/03/2024 2:02 PM Attending Note I evaluated the patient and personally participated in the brar components. I agree with Dr. Maldonado's findings and plan as documented and have discussed the case and management of the patient's care with the nephrology fellow. Pt with ESKD from T1DM, s/p DDKTt who normally has dialysis at [facility], missed dialysis due to eye surgery yesterday, s/p vitrectomy, cataract surgery and had post-op hyperkalemia requiring emergent dialysis overnight. Today, NAD watching TV Lungs Clear, Cor RRR, no rub Extremities with trace edema bilaterally ESKD, dialyzed emergently for hyperkalemia Will resume normal schedule dialysis tomorrow Signature: Jr Bernal MD Date: 12/03/2024 Time: 1:57 PM DEPARTMENT OF KIDNEY MEDICINE CONSULT NOTE SERVICE DATE: 12/02/2024 SERVICE TIME: 10:59pm REQUESTING PHYSICIAN: No ref. provider found REASON FOR CONSULT: Hyperkalemia Final recommendations will be communicated back to the requesting physician by way of shared medical record. HPI: Mr. Guillen is a 39 year old male with past medical history of ESRD s/p failed kidney transplant now ESRD since 2022, diabetes type 1, pressure ulcer of sacrum, GERD, depression, anemia, HLD, cerebral infarct, spinal cord infarction c/b paraplegia, neurogenic bladder, neurogenic bowel s/p colostomy, chronic osteomyelitis, HTN, migraine who is admitted to the MICU for management of hyperkalemia. Patient was at [facility] and he underwent vitrectomy and cataract surgery. Post operatively he was found to have K of 6.4 and was sent to the ED for further management of hyperkalemia. In the ED his K was 7 and he received potassium depleting cocktail as well as Kayexalate but repeat K was 7.5. He received another round of potassium depleting cocktail and Lokelma as well as Lasix 80mg. Patient states he usually has dialysis on MWF. His last session of dialysis wa son Saturday. He did not have dialysis today as per schedule due to his surgery. His only complaint at this time is post operative eye pain. PAST MEDICAL HISTORY: PAST MEDICAL HISTORY Diagnosis Date Acquired absence of left leg above knee ([facility]) Acquired absence of other right toe(s) ([facility]) Acute infarction of spinal cord ([facility]) Acute kidney failure, unspecified Acute osteomyelitis of left ankle or foot ([facility]) Acute pulmonary edema ([facility]) Anemia Anemia in chronic kidney disease (CKD) Body mass index 40.0-44.9, adult ([facility]) Cerebral infarction due to unspecified occlusion or stenosis of unspecified cerebral artery ([facility]) Chronic kidney disease (CKD), stage IV (severe) ([facility]) Chronic systolic (congestive) heart failure ([facility]) Congestive heart failure (CHF) ([facility]) Dependence on renal dialysis Depression Diabetes mellitus with chronic kidney disease ([facility]) End stage renal disease ([facility]) ESRD (end stage renal disease) ([facility]) Essential hypertension GERD (gastroesophageal reflux disease) Heart failure ([facility]) HLD (hyperlipidemia) Hyperkalemia Hyperlipidemia Hypertension Hypertensive heart and chronic kidney disease with heart failure and stage 1 through stage 4 chronic kidney disease, or chronic kidney disease ([facility]) Hypo-osmolality and hyponatremia Hypomagnesemia Hypothyroidism Insomnia Insomnia Kidney transplant failure ([facility]) Kidney transplant status ([facility]) FPC current use of insulin ([facility]) Major depressive disorder, recurrent, unspecified Mood disorder Morbid (severe) obesity due to excess calories ([facility]) Muscle weakness Neurogenic bowel Neurogenic bowel, not elsewhere classified Neuromuscular dysfunction of bladder Neuromuscular dysfunction of bladder Neuropathy Non-pressure chronic ulcer of other part of unspecified foot with unspecified severity ([facility]) Obstructive sleep apnea Osteomyelitis of vertebra, sacral and sacrococcygeal region ([facility]) Other disorders of phosphorus metabolism Other idiopathic peripheral autonomic neuropathy Other pericardial effusion (noninflammatory) ([facility]) Other pulmonary embolism without acute cor pulmonale, unspecified chronicity ([facility]) Paraplegia ([facility]) Paraplegia, incomplete ([facility]) PDR (proliferative diabetic retinopathy) ([facility]) Penile erosion 04/23/2023 Pressure ulcer of ischium, stage 4 ([facility]) Pressure ulcer of left buttock, unspecified stage 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 Right foot ulcer ([facility]) Sepsis ([facility]) T1DM (type 1 diabetes mellitus) ([facility]) Total, mature age-related cataract Type 2 diabetes ([facility]) Unspecified protein-calorie malnutrition ([facility]) UTI (urinary tract infection) Vitamin D deficiency PAST SURGICAL HISTORY: PAST SURGICAL HISTORY Procedure Laterality Date COLOSTOMY TRANSPLANTATION OF KIDNEY WOUND DEBRIDEMENT HX 4 times of the wound FAMILY HISTORY: FAMILY HISTORY Problem Relation Age of Onset No Known Problems Father Diabetes Mother No Known Problems Sister No Known Problems Brother No Known Problems Maternal Grandmother No Known Problems Maternal Grandfather No Known Problems Paternal Grandmother Cancer Paternal Grandfather Cancer Other Glaucoma Other Cataract Other Detached Retina No Family History Macular Degen No Family History Blindness No Family History Hypertension No Family History Heart No Family History SOCIAL HISTORY: Social History Tobacco Use Smoking status: Never Smokeless tobacco: Never Vaping Use Vaping status: Never Used Substance Use Topics Alcohol use: Never Drug use: Never Current Inpatient Medications Current Facility-Administered Medications Medication Dose Route Frequency apixaban 2.5 mg tab(s) (ELIQUIS) 2.5 mg ORAL BID sodium zirconium cyclosilicate 10 g oral packet (LOKELMA) 10 g ORAL q 8 H NaCl 0.9% iv flush bag 20 mL INTRAVENOUS PRN acetaminophen 1,000 mg tab(s) (TYLENOL) 1,000 mg ORAL/FEEDING TUBE q 8 H PRN insulin regular 100 units in NaCl 0.9% 100 mL - ICU NOMOGRAM 0-30 Units/hr INTRAVENOUS CONTINUOUS insulin regular human 2-10 Units bolus from bag 2-10 Units INTRAVENOUS PRN dextrose 15 gram/32 mL 15 g (TRUEPLUS) 15 g ORAL PRN glucagon 1 mg injection 1 mg SUBCUTANEOUS PRN dextrose 10% iv bolus 12.5-25 g INTRAVENOUS PRN [START ON 12/03/2024] insulin regular human injection (short acting) SUBCUTANEOUS w MEALS AND HS atorvastatin 40 mg tab(s) (LIPITOR) 40 mg ORAL AT BEDTIME cloNIDine HCl 0.2 mg tab(s) (CATAPRES) 0.2 mg ORAL BID [START ON 12/03/2024] hydrALAZINE 50 mg tab(s) (APRESOLINE) 50 mg ORAL TID [START ON 12/03/2024] carvedilol 50 mg tab(s) (COREG) 50 mg ORAL BID w MEALS [START ON 12/03/2024] sevelamer carbonate 2,400 mg tab(s) (RENVELA) 2,400 mg ORAL TID w MEALS [START ON 12/03/2024] levothyroxine 150 mcg (SYNTHROID) 150 mcg ORAL BEFORE BREAKFAST DAILY Facility-Administered Medications Ordered in Other Encounters Medication Dose Route Frequency hydrALAZINE injection (APRESOLINE) INTRAVENOUS PRN Continuous IV Medications: insulin regular ALLERGIES No Known Allergies PHYSICAL EXAM: BP 193/93 Pulse 80 Temp 36.9 ?C (98.4 ?F) (Oral) Resp 18 Wt 124 kg (273 lb 5.9 oz) SpO2 96% BMI 37.08 kg/m? GENERAL: No acute distress LUNGS: Normal respiratory effort. CARDIAC: Regular rate AND rhythm, no murmur ABDOMEN: Soft, non-distended, ostomy present in LLQ GENITOURINARY: No Hurst catheter EXTREMITIES: Trace edema NEURO: Alert. Grossly non focal ACCESS: Vascular Access: Permanent Vascular access: Left upper extremity AVF. Access site demonstrates: normal thrill/bruit DATA: Diagnostic tests reviewed for today's visit: Most recent labs and imaging results. No results found for this or any previous visit from the past 365 days. ASSESSMENT: 39 year old male admitted on 12/02/2024 for hyperkalemia . History is significant for ESRD s/p failed kidney transplant now on dialysis again since 2022. Nephrology consulted for urgent dialysis in the setting of hyperkalemia. 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 Consent for KRT (Kidney Replacement Therapy): SIGNATURE: Best Maldonado MD PATIENT NAME: China Guillen DATE: December 02, 2024 TIME: 10:59 PM STAPHYLOCOCCUS AUREUS AND MR SA SCREEN, PCR, NASAL Collected: 12/02/2024 10:36 PM Status: F Source: [facility] Order Comment: Specimen Type : SWAB Ordering Facility: [facility] Address: [address] [place] [address] TYPE CODE TESTS RESULT OUT OF RANGE REFERENCE UNITS LAB 37185-1(LOINC ) SA+MRSA Pnl Nose KARLI+probe Methicillin-SUSCE PTIBLE Staphylococcus aureus Detected Abnormal Not Detected Performed By: #### SAPCR ### # [facility] CLIA [id number] [address] [place] [address] [place] METAB 2000 PNL SERPL Collected: 10:24 PM Status: F Source: [facility] Order Comment: Specimen Type : BLOOD SPECIMEN Ordering Facility: [facility] Address: [address] [place] [address] TYPE CODE TESTS RESULT OUT OF RANGE REFERENCE UNITS LAB 2345-7(LOINC) Glucose SerPl-mCnc 207 High 74-99 mg/dL Result Comment: The [place] Diabetes Association (ADA) provides guidance for cutoff values for fasting glucose and random glucose. The ADA defines fasting as no caloric intake for at least 8 hours. Fasting plasma glucose results between 100 to 125 mg/dL indicate increased risk for diabetes (prediabetes). Fasting plasma glucose results greater than or equal to 126 mg/dL meet the criteria for diagnosis of diabetes. In the absence of unequivocal hyperglycemia, results should be confirmed by repeat testing. In a patient with classic symptoms of hyperglycemia or hyperglycemic crisis, random plasma glucose results greater than or equal to 200 mg/dL meet the criteria for diagnosis of diabetes. Reference: Standards of Medical Care in Diabetes 2016, [place] Diabetes Association. Diabetes Care. 2016.39(Suppl 1). LAB 3094-0(LOINC) BUN SerPl-mCnc 89 High 9-24 mg/ dL LAB 2160-0(LOINC) Creat SerPl-mCnc 10.01 High 0.73-1.22 mg/dL LAB 2951-2(LOINC) Sodium SerPl-sCnc 132 Low 136-144 mmol/L LAB 2823-3(LOINC) Potassium SerPl-sCnc 6.7 High Alert 3.7-5.1 mmol/L LAB 2075-0(LOINC) Chloride SerPl-sCnc 91 Low 98-107 mmol/L LAB 2028-9(LOINC) CO2 SerPl-sCnc 25 22-30 mmo l/L LAB 46126-9(LOINC) Anion Gap SerPl-sCnc 16 High 8-15 mmol/L LAB 37888-4(LOINC) Calcium SerPl-mCnc 9.1 8.5-10.2 mg/dL LAB 19951-7(LOINC) Creatinine + eGFR Pnl SerPlBld 6 Low >=60 mL/min/1 .73m??? Result Comment: Estimated Gl omerular Filtration Rate (eGFR) is calculated using the 2020 CKD-EPI creatinine equation. This equation utilizes serum creatinine, sex, and age as parameters. The creatinine assay has traceable calibration to isotope dilution-mass spectrometry. Refer to KDIGO guidelines for clinical interpretation. In patients with unstable renal function, e.g. those with acute kidney injury, the eGFR may not accurately reflect actual GFR. Performed By: #### 88933-8, 85490-5 #### [facility] CLIA [id number] [address] [place] [address] OF TRUMAN MAGNESIUM SERPL-MCNC Collected: 025 10:24 PM Status: F Source: [facility] Order Comment: Specimen Type : BLOOD SPECIMEN Ordering Facility: [facility] Address: [address] [place] [address] TYPE CODE TESTS RESULT OUT OF RANGE REFERENCE UNITS LAB 14301-0(LOINC) Magnesium SerPl-mCnc 2.2 1.7-2.3 mg/dL Performed By: #### 68059-9, 87480-3 #### [facility] CLIA [id number] [address] [place] [address] OF TRUMAN GAS + CO PNL BLDV Collected: 10:24 PM Status: F Source: [facility] Comment: Specimen Type : VENOUS BLOOD SPECIMEN Ordering Facility: [facility] Address: [address] [place] [address] TYPE CODE TESTS RESULT OUT OF RANGE REFERENCE UNITS LAB 2746-6(LOINC) pH BldV 7.40 7.32-7.42 LAB 93928-0(LOINC) pH temp adj BldV 7.40 7.32-7.42 LAB 2020-4(LOINC) pCO2 BldV 46 42-55 mmHg LAB 37070-5(LOINC) pCO2 temp adj BldV 46 42-55 mmHg LAB 2705-2(LOINC) pO2 BldV 72 High 35-45 mmHg LAB 68764-6(LOINC) pO2 temp adj BldV 71 High 35-45 mmHg LAB 2711-0(LOINC) SaO2 % BldV 93 High 60-85 % LAB 1927-3(LOINC) Base excess BldV Calc-sCnc 3 High 0-2 mmol/L LAB 83367-7(LOINC) HCO3 BldV-sCnc 28 24-28 mmol/L LAB 2716-9(LOINC) OxyHgb MFr BldV 91 High 60-85 % LAB 2-1(LOINC) COHgb MFr BldV 1.6 0.0-2.0 % Result Comment: Carboxyhemog lobin Reference Range for Smokers: 2.0-8.0% LAB 2614-6(LOINC) MetHgb MFr Bld 0.6 0.0-1.5 % LAB 2947-0(LOINC) Sodium Bld-sCnc 134 Low 136-144 mmol/L LAB 6298-4(LOINC) Potassium Bld-sCnc 6.4 High Alert 3.5-5.0 mmol/L LAB 31502-6(LOINC) Ca-I Bld-mCnc 1.15 1.08-1.30 mmol/L LAB 20743-6[facility] Ca-I adj pH7.4 BldA-sCnc 1.15 1.08-1.30 mmol/L LAB 2339-0(LOINC) Glucose Bld-mCnc 216 High 60-105 mg/dL LAB 52280-8([facility]) Lactate Bld-sCnc 1.5 0.5-2.2 mmol/L LAB 718-7([facility]) Hgb Bld-mCnc 12.5 Low 13.0-17.0 g/dL LAB 4544-3([facility]) Hct VFr Bld Auto 38.3 Low 39.0-51.0 % LAB VTMP TEMPERATURE, BODY 36.9 C LAB LITERBG LITERS 1 Liters/m in LAB VO2TH O2 THERAPY NC = Nasal Cannula Performed By: #### 96250-1 # ### [facility] CLIA [id number] [address] [place] [address] STATES OF [facility] HISTORY PHYSICAL Observed: 12/02/2024 10:02 PM Status: COMPLETED Source: [facility] HNO ID: [id number] Author: OSCAR CHOWDHURY MD Service: Critical Care Author Type: Physician Type: H&P Filed: 12/03/2024 01:06 Note Text: MICU HANDP SERVICE DATE: 12/02/2024 SERVICE TIME: 10:02 PM Admission Date: 12/02/2024 Subjective HPI: This is a 39 M with PMHx of kidney transplant back on IHD since 2022, ischial and sacrum pressure ulcer, T1DM, paraplegia, neurogenic bladder, and HTN who presented to ED as a [facility] from [facility] for hyperkalemia found on routine labs. Pt missed dialysis today, Saturday 12/02 undergoing left mechanical vitrectomy today. In ED, labs notable for K 7 -> 7.5, Na 130 EKG sinus maryann at 59 bpm, no ST/T wave changes In ED, received Cagluconate 2g total, IV lasix 40mg twice, SPS x1, and Na bicarb 50 mEq On arrival to MICU, VBG 7.4/46/72 K 6.4 on VBG after ED interventions, bicarb 16 PAST MEDICAL HISTORY Diagnosis Date Acquired absence of left leg above knee ([facility]) Acquired absence of other right toe(s) ([facility]) Acute infarction of spinal cord ([facility]) Acute kidney failure, unspecified Acute osteomyelitis of left ankle or foot ([facility]) Acute pulmonary edema ([facility]) Anemia Anemia in chronic kidney disease (CKD) Body mass index 40.0-44.9, adult ([facility]) Cerebral infarction due to unspecified occlusion or stenosis of unspecified cerebral artery ([facility]) Chronic kidney disease (CKD), stage IV (severe) ([facility]) Chronic systolic (congestive) heart failure ([facility]) Congestive heart failure (CHF) ([facility]) Dependence on renal dialysis Depression Diabetes mellitus with chronic kidney disease ([facility]) End stage renal disease ([facility]) ESRD (end stage renal disease) ([facility]) Essential hypertension GERD (gastroesophageal reflux disease) Heart failure ([facility]) HLD (hyperlipidemia) Hyperkalemia Hyperlipidemia Hypertension Hypertensive heart and chronic kidney disease with heart failure and stage 1 through stage 4 chronic kidney disease, or chronic kidney disease ([facility]) Hypo-osmolality and hyponatremia Hypomagnesemia Hypothyroidism Insomnia Insomnia Kidney transplant failure ([facility]) Kidney transplant status ([facility]) 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 ([facility]) Major depressive disorder, recurrent, unspecified Mood disorder Morbid (severe) obesity due to excess calories ([facility]) Muscle weakness Neurogenic bowel Neurogenic bowel, not elsewhere classified Neuromuscular dysfunction of bladder Neuromuscular dysfunction of bladder Neuropathy Non-pressure chronic ulcer of other part of unspecified foot with unspecified severity ([facility]) Obstructive sleep apnea Osteomyelitis of vertebra, sacral and sacrococcygeal region ([facility]) Other disorders of phosphorus metabolism Other idiopathic peripheral autonomic neuropathy Other pericardial effusion (noninflammatory) ([facility]) Other pulmonary embolism without acute cor pulmonale, unspecified chronicity ([facility]) Paraplegia ([facility]) Paraplegia, incomplete ([facility]) PDR (proliferative diabetic retinopathy) ([facility]) Penile erosion 04/23/2023 Pressure ulcer of ischium, stage 4 ([facility]) Pressure ulcer of left buttock, unspecified stage 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 Right foot ulcer ([facility]) Sepsis ([facility]) T1DM (type 1 diabetes mellitus) ([facility]) Total, mature age-related cataract Type 2 diabetes ([facility]) Unspecified protein-calorie malnutrition ([facility]) UTI (urinary tract infection) Vitamin D deficiency PAST SURGICAL HISTORY Procedure Laterality Date COLOSTOMY TRANSPLANTATION OF KIDNEY WOUND DEBRIDEMENT HX 4 times of the wound FAMILY HISTORY Problem Relation Age of Onset No Known Problems Father Diabetes Mother No Known Problems Sister No Known Problems Brother No Known Problems Maternal Grandmother No Known Problems Maternal Grandfather No Known Problems Paternal Grandmother Cancer Paternal Grandfather Cancer Other Glaucoma Other Cataract Other Detached Retina No Family History Macular Degen No Family History Blindness No Family History Hypertension No Family History Heart No Family History Social History Tobacco Use Smoking status: Never Smokeless tobacco: Never Vaping Use Vaping status: Never Used Substance Use Topics Alcohol use: Never Drug use: Never calcitriol (ROCALTROL) 0.5 mcg capsule, Take by mouth., Disp: , Rfl: DULoxetine (CYMBALTA) 30 mg capsule, , Disp: , Rfl: gabapentin (NEURONTIN) 100 mg capsule, , Disp: , Rfl: prednisoLONE acetate (PRED FORTE) 1 % ophthalmic suspension, Use 1 Drop in the right eye as directed. FOUR (4) TIMES FOR 1 WEEK, THREE (3) TIMES FOR 1 WEEK, THEN TW0 (2) TIMES A DAY FOR 1 WEEK, THEN ONE (1) TIME DAILY FOR 1 WEEK AND THEN STOP, Disp: 5 mL, Rfl: 2 ofloxacin (OCUFLOX) 0.3 % ophthalmic solution, Use 1 Drop in the right eye four times daily., Disp: 5 mL, Rfl: 0 cyclopentolate (CYCLOGYL) 1 % ophthalmic solution, Use 1 Drop in the right eye two times a day., Disp: 5 mL, Rfl: 0 hydrOXYzine HCl (ATARAX) 25 mg tablet, Take 1 tablet by mouth every 6 hours as needed for itching/rash., Disp: , Rfl: sevelamer carbonate (RENVELA) 800 mg tablet, Take 3 tablets by mouth three times a day with meals., Disp: , Rfl: cloNIDine HCl (CATAPRES) 0.2 mg tablet, Take 1 tablet by mouth two times a day., Disp: , Rfl: tacrolimus IR (PROGRAF) 1 mg capsule, Take 2 capsules by mouth two times a day., Disp: , Rfl: acetaminophen (TYLENOL) 325 mg tablet, Take 650 mg by mouth every 4 hours as needed for pain or fever (specify temp.)., Disp: , Rfl: diphenhydrAMINE-Zinc Acetate (ANTI-ITCH,DIPHENHYD, WITH ZINC) cream, Apply to affected area three times a day as needed for itching/rash., Disp: , Rfl: menthol (BIOFREEZE, MENTHOL,) 4 % topical gel, Apply to bilateral shoulders ever morning and at bedtime, Disp: , Rfl: Ciclopirox (CICLODAN) 8 % solution, Apply to affected area daily at bedtime. (For nail fungus), Disp: , Rfl: nystatin (MYCOSTATIN) powder, Apply to groin and abdominal folds topically every 12 hours as needed for skin irritation, Disp: , Rfl: b complex, c, folic acid 1 mg renal vitamins (RENAL CAPS) 1 mg capsule, Take 1 capsule by mouth once daily., Disp: , Rfl: Ascorbic Acid 500 mg chew, Take 500 mg by mouth once daily., Disp: , Rfl: OXYGEN, HOME THERAPY,, 2 L/min by Nasal Cannula route as directed. To keep sats >% - LPM via NC to maintain pulse ox above 92% as needed if patient has shortness of breath or s/sx of, Disp: , Rfl: melatonin 3 mg tablet, Take 9 mg by mouth daily at bedtime., Disp: , Rfl: apixaban (ELIQUIS) 2.5 mg tab(s), Take 2.5 mg by mouth two times a day., Disp: , Rfl: glucagon (GLUCAGEN) 1 mg injection, Inject 1 mg intramuscularly as needed. For symptomatic hypoglycemia not responsive to oral intervention. Notify MEAT CUTTER/MD, Disp: , Rfl: LANTUS U-100 INSULIN 100 unit/mL injection, Inject 8 Units subcutaneously every afternoon., Disp: , Rfl: dextrose (GLUCOSE GEL ORAL), Give one dose by mouth as needed for hypoglycemic episode, Disp: , Rfl: senna-docusate (SENNA PLUS) 8.6-50 mg per tablet, Take 1 tablet by mouth two times a day., Disp: , Rfl: polyethylene glycol 3350 17 gram packet, Take 1 Packet by mouth once daily as needed. Dissolve dose in 4 - 8 ounces of liquid and take as directed., Disp: 30 Packet, Rfl: 0 epoetin jacki 10,000 unit/mL injection, Inject 1 mL subcutaneously 3 Times weekly with dialysis., Disp: 12 mL, Rfl: 1 ondansetron (ZOFRAN) 4 mg tablet, Take 4 mg by mouth every 8 hours as needed for nausea/vomiting. 4 MG by mouth every six hours as needed, Disp: , Rfl: hydrALAZINE (APRESOLINE) 50 mg tablet, Take 50 mg by mouth three times a day., Disp: , Rfl: pantoprazole DR (PROTONIX) 40 mg tablet, Take 40 mg by mouth once daily., Disp: , Rfl: carvedilol (COREG) 25 mg tablet, Take 50 mg by mouth two times a day with meals., Disp: , Rfl: escitalopram oxalate (LEXAPRO) 20 mg tablet, Take 20 mg by mouth once daily., Disp: , Rfl: insulin lispro (ADMELOG) 100 unit/mL injection, Inject 5 Units subcutaneously three times a day before meals. In addition to sliding scale if B-200 = 2 units 201-250 = 3 units 251-300 = 4 units 301-350 = 5 units 351-400 = 6 units 401-450 = 7 untis, Disp: , Rfl: levothyroxine (SYNTHROID) 150 mcg tablet, Take 150 mcg by mouth daily before breakfast., Disp: , Rfl: atorvastatin (LIPITOR) 40 mg tablet, Take 40 mg by mouth daily at bedtime., Disp: , Rfl: ALLERGIES No Known Allergies Objective VITAL SIGNS (last 24hrs min/max): Temp Av.6 ?C (97.8 ?F) Min: 36.6 ?C (97.8 ?F) Max: 36.6 ?C (97.8 ?F) Pulse Av.2 Min: 60 Max: 80 No data recorded Cuff BP Min: 173/84 Max: 204/96 Pain Level: 4 Vital signs reviewed. Relevant comments- NA NET FLUID BALANCE Intake/Output Summary (Last 24 hours) at 12/02/2024 2208 Last data filed at 12/02/2024 2206 Gross per 24 hour Intake 0 ml Output 0 ml Net 0 ml INDWELLING CATHETERS: Lines, Drains, and Airways Line Duration Peripheral 12/02/24 1547 Right Forearm 20 Gauge <1 day Drain Duration Surgically Inserted Drain External Facility Suprapubic Left Pelvic -- days Colostomy 04/17/22 LLQ 960 days PHYSICAL EXAM: Physical exam performed HEENT: Oral Mucosa: Moist mucous membranes Feeding Tube: No Eyes: PERRLA Neck: Unremarkable; No adenopathy or JVD Cardiovascular: Regular rhythm Respiratory: Clear to auscultation Supplemental Oxygen: No No data recorded Abdomen: Soft and Nontender Extremities: Edema- No Peripheral Pulses- Present all extremities Capillary Refill- less than 3 seconds Skin: Abnormalities- No Breakdown- No Neurologic: Awake, oriented, Alert, and Follows commands Enteral Feeds: No DATA: Diagnostic tests reviewed for today's visit: Most recent labs and imaging results. LABS: CBC, Coags, BMP, Mg, Phos Recent Labs 12/02/24222312/02/24192212/02/24 1546 WBC -- -- 6.40 HB -- -- 12.3* HCT -- -- 38.2* PLT -- -- 144* NA 132* 130* 132* K 6.7* 7.5* 7.0* CHLOR 91* 92* 93* CO2 25 23 24 BUN 89* 87* 84* CREAT 10.01* 10.05* 9.55* GLUC 207* 208* 134* CA 9.1 9.2 9.3 MG 2.2 -- 2.1 Assessment/Plan Patient Summary: 39 M with PMHx of kidney transplant back on IHD since 2022, ischial and sacrum pressure ulcer, T1DM, paraplegia, neurogenic bladder, and HTN who presented to ED as a SUZI from [facility] for hyperkalemia found on routine labs after missing dialysis today. Admitted to MICU for CRRT. Morbid Obesity Class 3 Assessment + Plan: - kidney transplant back on IHD since 2022 - ischial and sacrum pressure ulcer - T1DM - paraplegia, neurogenic bladder - HTN Neuro: # Bilateral retinal detachments: blind, s/p left mechanical vitrectomy today # Neurogenic bladder: suprapubic cath in place Pulm: # Hx of HOOD segmental PE 2022 - Per chart review from OSH 11/2022: CTPE 10/14- acute PE in proximal left upper lobe segmental pulmonary arteries On heparin drip, restarted soon after BKA (11/09),changed to apixaban on 11/11/22 duration of anticoagulation likely to be lifelong (if no bleeding complications) given irreversible risk factors (immobility) - Continue Eliquis 2.5 mg BID CV: # HTN - Home meds: Carvedilol 50mg BID, Hydralazine 50mg TID, Amlodipine 5mg daily and Clonidine 0.2 mg BID Renal / Electrolytes: # DD Kidney transplant 2020, failed # ESRD post-transplant # Hyperkalemia - 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, neurogenic bladder and neurogenic bowel (s/p suprapubic catheter, colostomy, left BKA - On HD since 10/2022, MWF but missed dialysis 12/02 - Access: left AVF - Home IS meds: tacrolimus 2mg BID - Hyperkalemic on admission at 7.5, treated medically in ED with calcium gluconate, SPS, and IV lasix PLAN: - Nephrology consult for urgent HD -> will medically manage with Lokelam 10mg x1 until dialysis can be set up - Check tacro level in the AM then re-dose based on nephrology recs - Continue home sevelamer TID GI / Nutrition: No acute concerns ID: No acute concerns Are new ABX being started at this time: No Heme / Onc: No acute concerns Endocrine: # Hx of T1DM: most recent A1c 05/2024 6.9 # Hypothyroidism: continue home synthroid 150 mcg daily MSK / Derm: # Sacral and ischium pressure ulcers: wound care consult # Hx of 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 osteomyelitis Medication and Non-Pharmacologic VTE Prophylaxis/Anticoagulants Anticoagulant AND Antiplatelet Medications (From admission, onward) Start Dose Route Frequency Last Action Ordered Stop 12/02/241929 apixaban 2.5 mg tab(s) (ELIQUIS) (apixaban tab(s) (ELIQUIS)) 2.5 mg PO 2 TIMES DAILY Ordered 12/02/241903 -- 12/02/242200 activity - mobilize patient (oh,hi) VTE Prophylaxis: already anticoagulated ICU Checklist A= Assess, Prevent, Manage Pain C= Choice of Sedation and Analgesia B= Both Spontaneous Awakening and Breathing Trials D= Delirium: Assess, Prevent and Manage E= Early Mobility/Excercise ICU Mobility: F= Family Engagement and Empowerment ICU Disposition: Prevention: VTE Prophylaxis: Kassie Peacock DO PGY-3 Internal Medicine December 02, 2024 10:09 PM [facility] STAFF PHYSICIAN NOTE OF PERSONAL INVOLVEMENT IN CARE I have reviewed the history and physical examination obtained and documented by the Resident. I have personally performed a face to face assessment of the patient and have personally participated on the brar components of the history, exam and medical decision making. I have discussed the case and management of the patient's care. The following comments revise or confirm relevant brar components of the note. IMPRESSION: This is a 39 year old male with h/o T2Dm, ESRD s/p kidney tx , failed, now on iHD, paraplegic, neurogenic bladder. Today (12/02) he missed iHD as he had eye surgery - s/p left mechanical vitrectomy 12/02/24 at [facility]. Routine labs monie-op found to have hyperkalemia. Hyperkalemia, missed HD S/p kidney tx, failed, on iHD (left AVF) S/p [facility] T2DM Paraplegic, neurogenic bladder Hx PE in 2022, on eliquis PLAN: Medical management of hyperkalemia until iHD can be done Nephrology consulted Ophthalmology to follow ICU PPX PT/OT when able Code status: Full Dispo: MICU This patient has a high probability of sudden, clinically significant deterioration, which requires the highest level of physician preparedness to intervene urgently. I managed/supervised life or organ supporting interventions that required frequent physician assessment. I devoted my full attention to the direct care of this patient for the amount of time indicated below. Time I spent with family or surrogate(s) is included only if the patient was incapable of providing the necessary information or participating in medical decision making. Time devoted to teaching and to any procedures I billed separately is not included. Critical Care Documentation: The patient has the following organ/system impairment(s): Complex life-threatening medical problem(s) and Severe electrolyte imbalance Only for admission notes, Diagnosis present on admission to MICU: Fluid and Electrolyte Disorders: Hyperkalemia Time spent providing critical care services: 35 minutes. SIGNATURE: Oscar Chowdhury MD [facility] DATE of SERVICE: 12/02/2024 ED NOTE Observed: 12/02/2024 9:19 PM Status: COMPLETED Source: [facility] HNO ID: [id number] Author: ALVARO PERDOMO RN Service: Emergency Medicine Author Type: Registered Nurse Type: ED Notes Filed: 12/02/2024 21:20 Note Text: Report given to zaynab CHAN, awaiting room cleaning ED PROGRESS NOTE (PROVIDER) Observed: 12/02/2024 8:30 PM Status: COMPLETED Source: [facility] HNO ID: [id number] Author: KAREN MUELLER MD Service: Emergency Medicine Author Type: Physician Type: ED PROGRESS NOTE (PROVIDER) Filed: 12/02/2024 22:03 Note Text: Escalation of Care Note: Following the substantial completion of the emergency department visit, the patient had a sudden clinical deterioration necessitating the delivery of critical care services separate from the initial service. ED Course as of 12/02/242202 Others' Documentation SatDecember 02, 2024 1601 ED STAFF ATTENDING MDM 39 year old ESRD referred to ED for outpatient bloodwork demonstrating hyperkalemia, he reports last treatment was on 11/30 () denies chest pain, palpitations, dizziness. [SD] 2013 Spoke with nephrology regarding medical management of patient pending dialysis. Per nephrology, will increase IV Lasix dose to 80 mg. Lokelma to be given at least 2 hours to bring down potassium, then repeat BMP. [RC] 2118 Signout to JOSE Pugh. [RC] ED Course User Index [RC] Olivia Salvador, JACINTO.MEAT CUTTER [SD] Steven Rich MD Clinical Impressions as of 12/02/242202 Hyperkalemia Paraplegia (HCC) Dialysis patient Electrolyte disorder Hx of left BKA (HCC) MDM/Course: This is a patient that was signed out to me with hyperkalemia. He had been given calcium gluconate and other medications. However, a repeat potassium was worsened at 7.5. We spoke with the medical ICU, who admitted the patient. We also spoke with nephrology, who recommended medical management until they could get him to dialysis. He was admitted to the MICU. Critical Care I spent a total of 15 minutes of critical care time in the evaluation and management of this patient. This was necessary to treat or prevent deterioration of the following condition(s): Severe metabolic abnormality, which the patient had and/or has a high probability of suddenly developing. The patient received Correction of Electrolyte Abnormality during the time that critical care was provided.I discussed the plan of care with the YUE and agree with the findings documented. I provided a substantive portion of the care and the majority of the critical care time. Critical care time excludes separately billed procedures. MD Karen Jaeger MD 8:30 PM ED NOTE Observed: 12/02/2024 8:01 PM Status: COMPLETED Source: [facility] HNO ID: [id number] Author: ALVARO PERDOMO RN Service: Emergency Medicine Author Type: Registered Nurse Type: ED Notes Filed: 12/02/2024 20:01 Note Text: Pt placed on the zoll per LIP request BAS METAB 2000 PNL SERPL Collected: 7:23 PM Status: F Source: [facility] Order Comment: Specimen Type : BLOOD SPECIMEN Ordering Facility: [facility] Address: [address] [place] [address] TYPE CODE TESTS RESULT OUT OF RANGE REFERENCE UNITS LAB 2345-7(LOINC) Glucose SerPl-nc 208 High 74-99 mg/dL Result Comment: The [place] Diabetes Association (ADA) provides guidance for cutoff values for fasting glucose and random glucose. The ADA defines fasting as no caloric intake for at least 8 hours. Fasting plasma glucose results between 100 to 125 mg/dL indicate increased risk for diabetes (prediabetes). Fasting plasma glucose results greater than or equal to 126 mg/dL meet the criteria for diagnosis of diabetes. In the absence of unequivocal hyperglycemia, results should be confirmed by repeat testing. In a patient with classic symptoms of hyperglycemia or hyperglycemic crisis, random plasma glucose results greater than or equal to 200 mg/dL meet the criteria for diagnosis of diabetes. Reference: Standards of Medical Care in Diabetes 2016, [place] [employer] Association. Diabetes Care. 2016.39(Suppl 1). LAB 3094-0(LOINC) BUN SerPl-mCnc 87 High 9-24 mg/ dL LAB 2160-0(LOINC) Creat SerPl-mCnc 10.05 High 0.73-1.22 mg/dL LAB 2951-2(LOINC) Sodium SerPl-sCnc 130 Low 136-144 mmol/L LAB 2823-3(LOINC) Potassium SerPl-sCnc 7.5 High Alert 3.7-5.1 mmol/L LAB 2075-0(LOINC) Chloride SerPl-sCnc 92 Low 98-107 mmol/L LAB 2028-9(LOINC) CO2 SerPl-sCnc 23 22-30 mmo l/L LAB 36521-9(LOINC) Anion Gap SerPl-sCnc 15 8-15 mmol/L LAB 80114-3(LOINC) Calcium SerPl-mCnc 9.2 8.5-10.2 mg/dL LAB 78255-5(LOINC) Creatinine + eGFR Pnl SerPlBld 6 Low >=60 mL/min/1 .73m??? Result Comment: Estimated Gl omerular Filtration Rate (eGFR) is calculated using the 2020 CKD-EPI creatinine equation. This equation utilizes serum creatinine, sex, and age as parameters. The creatinine assay has traceable calibration to isotope dilution-mass spectrometry. Refer to KDIGO guidelines for clinical interpretation. In patients with unstable renal function, e.g. those with acute kidney injury, the eGFR may not accurately reflect actual GFR. Performed By: #### 2157-6, 2 432- #### [facility] CLIA [id number] [address] [place] [address] [place] CK SERPL-CCNC Collected: 12/02/2024 7:23 PM Status: F Source: [facility] Comment: Specimen Type : BLOOD SPECIMEN Ordering Facility: [facility] Address: [address] [place] [address] TYPE CODE TESTS RESULT OUT OF RANGE REFERENCE UNITS LAB 7-6([facility]) CK SerPl-cCnc 143 51-298 U/L Performed By: #### 2157-6, 2 432-2 #### [facility] CLIA [id number] [address] [place] [address] [place] ED PROV NOTE Observed: 12/02/2024 5:11 PM Status: COMPLETED Source: [facility] HNO ID: [id number] Author: STEVEN RICH MD Service: Emergency Medicine Author Type: Physician Type: ED Provider Notes Filed: 12/03/2024 14:12 Note Text: ED Provider Note Patient Name: China Guillen : 1985 SERVICE DATE: 12/02/24 History Patient presents with: Sent By Md: [facility] d/t hyperk 39-year-old male with PMHx pressure ulcer of ischium, diabetes type 1, pressure ulcer of sacrum, VRE, spinal cord infarct, mood disorder, paraplegia, neurogenic bladder, GERD, depression, anemia, kidney transplant, HLD, cerebral infarct, pericardial effusion, ESRD on dialysis, failed kidney transplant, immunosuppressive management, closed head injury, chronic osteomyelitis, HTN, migraine, phantom limb syndrome, UTI, rectal abscess, leg cramps presents to the ED via SUZI from [facility] with complaint of hyperkalemia. Patient was at [facility] for procedures today, during routine testing was found to be hyperkalemic. Patient is a Saturday dialysis patient, missed dialysis today due to procedures. Patient has no complaints at this time. History provided by: Patient and medical records compensation and hris analyst used: No PAST MEDICAL HISTORY Diagnosis Date Acquired absence of left leg above knee (HCC) Acquired absence of other right toe(s) (HCC) Acute infarction of spinal cord (HCC) Acute kidney failure, unspecified Acute osteomyelitis of left ankle or foot (HCC) Acute pulmonary edema (HCC) Anemia Anemia in chronic kidney disease (CKD) Body mass index 40.0-44.9, adult (HCC) Cerebral infarction due to unspecified occlusion or stenosis of unspecified cerebral artery (HCC) Chronic kidney disease (CKD), stage IV (severe) (HCC) Chronic systolic (congestive) heart failure (HCC) Congestive heart failure (CHF) (HCC) Dependence on renal dialysis Depression Diabetes mellitus with chronic kidney disease (HCC) End stage renal disease (HCC) ESRD (end stage renal disease) (HCC) Essential hypertension GERD (gastroesophageal reflux disease) Heart failure ([facility]) HLD (hyperlipidemia) Hyperkalemia Hyperlipidemia Hypertension Hypertensive heart and chronic kidney disease with heart failure and stage 1 through stage 4 chronic kidney disease, or chronic kidney disease ([facility]) Hypo-osmolality and hyponatremia Hypomagnesemia Hypothyroidism Insomnia Insomnia Kidney transplant failure ([facility]) Kidney transplant status ([facility]) FPC current use of insulin ([facility]) Major depressive disorder, recurrent, unspecified Mood disorder Morbid (severe) obesity due to excess calories ([facility]) Muscle weakness Neurogenic bowel Neurogenic bowel, not elsewhere classified Neuromuscular dysfunction of bladder Neuromuscular dysfunction of bladder Neuropathy Non-pressure chronic ulcer of other part of unspecified foot with unspecified severity ([facility]) Obstructive sleep apnea Osteomyelitis of vertebra, sacral and sacrococcygeal region ([facility]) Other disorders of phosphorus metabolism Other idiopathic peripheral autonomic neuropathy Other pericardial effusion (noninflammatory) ([facility]) Other pulmonary embolism without acute cor pulmonale, unspecified chronicity ([facility]) Paraplegia ([facility]) Paraplegia, incomplete ([facility]) PDR (proliferative diabetic retinopathy) ([facility]) Penile erosion 04/23/2023 Pressure ulcer of ischium, stage 4 ([facility]) Pressure ulcer of left buttock, unspecified stage 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 Right foot ulcer ([facility]) Sepsis ([facility]) T1DM (type 1 diabetes mellitus) ([facility]) Total, mature age-related cataract Type 2 diabetes ([facility]) Unspecified protein-calorie malnutrition ([facility]) UTI (urinary tract infection) Vitamin D deficiency PAST SURGICAL HISTORY Procedure Laterality Date COLOSTOMY TRANSPLANTATION OF KIDNEY WOUND DEBRIDEMENT HX 4 times of the wound FAMILY HISTORY Problem Relation Age of Onset No Known Problems Father Diabetes Mother No Known Problems Sister No Known Problems Brother No Known Problems Maternal Grandmother No Known Problems Maternal Grandfather No Known Problems Paternal Grandmother Cancer Paternal Grandfather Cancer Other Glaucoma Other Cataract Other Detached Retina No Family History Macular Degen No Family History Blindness No Family History Hypertension No Family History Heart No Family History Social History Tobacco Use Smoking status: Never Smokeless tobacco: Never Vaping Use Vaping status: Never Used Substance and Sexual Activity Alcohol use: Never Drug use: Never Sexual activity: Not on file Comment: not asked ALLERGIES No Known Allergies Review of Systems Constitutional: Negative for appetite change, chills, fatigue and fever. Respiratory: Negative for cough and shortness of breath. Cardiovascular: Negative for chest pain. Gastrointestinal: Negative for abdominal pain, constipation, diarrhea, nausea and vomiting. Neurological: Negative for headaches. All other systems reviewed and are negative. Physical Exam Vitals [12/02/24 1546] BP Pulse Temp Temp src Resp SpO2 Weight Height 173/84 60 36.6 ?C (97.8 ?F) Oral 18 100 % 122.5 kg (270 lb) -- Physical Exam Vitals and nursing note reviewed. Constitutional: General: He is not in acute distress. Appearance: Normal appearance. He is obese. He is not ill-appearing or toxic-appearing. HENT: Head: Normocephalic and atraumatic. Comments: R eye in surgical bandage Blind, [place] Right Ear: External ear normal. Decreased hearing noted. Left Ear: External ear normal. Decreased hearing noted. Nose: Nose normal. Mouth/Throat: Mouth: Mucous membranes are moist. Pharynx: Oropharynx is clear. Eyes: General: No scleral icterus. Conjunctiva/sclera: Conjunctivae normal. Cardiovascular: Rate and Rhythm: Normal rate and regular rhythm. Heart sounds: Normal heart sounds. Pulmonary: Effort: Pulmonary effort is normal. Breath sounds: Normal breath sounds. Abdominal: General: Bowel sounds are normal. There is no distension. Palpations: Abdomen is soft. Tenderness: There is no abdominal tenderness. Musculoskeletal: General: Normal range of motion. Cervical back: Normal range of motion and neck supple. Skin: General: Skin is warm and dry. Capillary Refill: Capillary refill takes less than 2 seconds. Neurological: General: No focal deficit present. Mental Status: He is alert and oriented to person, place, and time. Psychiatric: Mood and Affect: Mood normal. Behavior: Behavior normal. Thought Content: Thought content normal. Judgment: Judgment normal. Diagnostic Testing ED Labs Ordered and Reviewed COMPREHENSIVE METABOLIC PANEL - Abnormal; Notable for the following components: Result Value Ref Range Protein, Total 9.0 (*) 6.3 - 8.0 g/dL Albumin 3.8 (*) 3.9 - 4.9 g/dL Alkaline Phosphatase 230 (*) 38 - 113 U/L Glucose 134 (*) 74 - 99 mg/dL BUN 84 (*) 9 - 24 mg/dL Creatinine 9.55 (*) 0.73 - 1.22 mg/dL Sodium 132 (*) 136 - 144 mmol/L Potassium 7.0 (*) 3.7 - 5.1 mmol/L Chloride 93 (*) 98 - 107 mmol/L Estimated Glomerular Filtration Rate 7 (*) >=60 mL/min/1.73m? All other components within normal limits COMPLETE BLOOD COUNT AND DIFFERENTIAL - Abnormal; Notable for the following components: RBC 4.02 (*) 4.20 - 6.00 m/uL Hemoglobin 12.3 (*) 13.0 - 17.0 g/dL Hematocrit 38.2 (*) 39.0 - 51.0 % Platelet Count 144 (*) 150 - 400 k/uL Abs Lymph 0.78 (*) 1.00 - 4.00 k/uL All other components within normal limits ED BG VENOUS/LAB PANELS - Abnormal; Notable for the following components: Potassium (POCT) 6.7 (*) 3.5 - 5.0 mmol/L All other components within normal limits Narrative: Meter ID:[id number] Location:ED [facility], [address] [place] [address] GLUCOSE, BLOOD (POC) - Abnormal; Notable for the following components: Glucose, Point of Care 221 (*) 74 - 99 mg/dL All other components within normal limits GLUCOSE, BLOOD (POC) - Abnormal; Notable for the following components: Glucose, Point of Care 221 (*) 74 - 99 mg/dL All other components within normal limits BASIC METABOLIC PANEL - Abnormal; Notable for the following components: Glucose 208 (*) 74 - 99 mg/dL BUN 87 (*) 9 - 24 mg/dL Creatinine 10.05 (*) 0.73 - 1.22 mg/dL Sodium 130 (*) 136 - 144 mmol/L Potassium 7.5 (*) 3.7 - 5.1 mmol/L Chloride 92 (*) 98 - 107 mmol/L Estimated Glomerular Filtration Rate 6 (*) >=60 mL/min/1.73m? All other components within normal limits MAGNESIUM - Normal CREATINE KINASE/CK - Normal POTASSIUM - ED (POC) GLUCOSE - ED(POC) GLUCOSE - ED(POC) GLUCOSE - ED(POC) GLUCOSE - ED(POC) Procedures ED Course / Clinical Impression ED Course as of 12/02/242118 Olivia Salvador's Documentation Wed December 02, 20242013 Spoke with nephrology regarding medical management of patient pending dialysis. Per nephrology, will increase IV Lasix dose to 80 mg. Lokelma to be given at least 2 hours to bring down potassium, then repeat BMP. 2118 Signout to JOSE Pugh. Others' Documentation SatDecember 02, 2024 1601 ED STAFF ATTENDING YENI 39 year old ESRD referred to ED for outpatient bloodwork demonstrating hyperkalemia, he reports last treatment was on 11/30 () denies chest pain, palpitations, dizziness. ECG with sinus bradycardia rate 59, otherwise normal intervals, no acute injury pattern. Our repeat K+ here critical at 7, also quite uremic K lowering meds including calcium, insulin, glucose initiated Care endorsed to Dr. Mueller with YUE [place] continuing to follow pending eval of response to above and ICU admit/needs dialysis. [SD] ED Course User Index [SD] Steven Rich MD Clinical Impressions as of 12/02/242118 Hyperkalemia Paraplegia (HCC) Dialysis patient Electrolyte disorder Hx of left BKA (HCC) MDM / Disposition / Plan Physician Report Given To: MICU fellow 39-year-old male with PMHx pressure ulcer of ischium, diabetes type 1, pressure ulcer of sacrum, VRE, spinal cord infarct, mood disorder, paraplegia, neurogenic bladder, GERD, depression, anemia, kidney transplant, HLD, cerebral infarct, pericardial effusion, ESRD on dialysis, failed kidney transplant, immunosuppressive management, closed head injury, chronic osteomyelitis, HTN, migraine, phantom limb syndrome, UTI, rectal abscess, leg cramps presents to the ED via [facility] from [facility] with complaint of hyperkalemia. Exam as above. VSS in ED. Given patient's HPI and exam, EKG, labs ordered. EKG does not demonstrate hyperacute T waves. Patient's labs remarkable for marked hyperkalemia. Patient given hyperkalemia cocktail. Repeat BMP demonstrated increase in potassium, not decrease, along with worsening of hyponatremia and elevated creatinine. Patient placed on ZOLL monitor. Given Lokelma. Given Lasix IV. Case presented to and accepted by MICU for MICU attending Dr. Chowdhury. History and Record Review External record(s) reviewed: prior outpatient record. Findings from review of outpatient records: PMHx pressure ulcer of ischium, diabetes type 1, pressure ulcer of sacrum, VRE, spinal cord infarct, mood disorder, paraplegia, neurogenic bladder, GERD, depression, anemia, kidney transplant, HLD, cerebral infarct, pericardial effusion, ESRD on dialysis, failed kidney transplant, immunosuppressive management, closed head injury, chronic osteomyelitis, HTN, migraine, phantom limb syndrome, UTI, rectal abscess, leg cramps Differential Diagnoses - Hyperkalemia is more likely for the following reason(s): consistent with laboratory studies - Paraplegia is more likely for the following reason(s): suggested by HANDP - Dialysis patient is more likely for the following reason(s): suggested by HANDP - Hyponatremia is more likely for the following reason(s): consistent with laboratory studies - Respiratory distress is less likely for the following reason(s): HANDP not suggestive - ACS is less likely for the following reason(s): HANDP not suggestive and laboratory studies not suggestive Management Management of the patient was discussed with:admitting team, software developer consultant, admitting team, software developer consultant and admitting team Discussion with admitting team included: Dr. Chowdhury, MICU Discussion with software developer consultant included: Nephrology fellow Meds Given During Visit ED Medication Administration from 12/02/2024 1522 to 12/02/2024 2213 Date/Time Order Dose Route Action 12/02/2024 1601 EDT dextrose 10% iv bolus 250 mL INTRAVENOUS New Bag/Syringe/Bottle 12/02/2024 1621 EDT dextrose 10% iv bolus 0 mL INTRAVENOUS Infusion Complete 12/02/2024 1601 EDT insulin regular human 5 Units injection (short acting) 5 Units INTRAVENOUS Given 12/02/2024 1602 EDT sodium polystyrene sulfonate (with sorbitol) 30 g liquid (SPS) 30 g ORAL Given 12/02/2024 1558 EDT albuterol 2.5 mg /3 mL (0.083 %) 2.5 mg (PROVENTIL) 2.5 mg INHALATION Given 12/02/2024 1558 EDT albuterol 2.5 mg/0.5 mL 7.5 mg nebulizer solution (PROVENTIL) 7.5 mg INHALATION Given 12/02/2024 1657 EDT calcium gluconate 1 g injection 1 g INTRAVENOUS New Bag/Syringe/Bottle 12/02/2024 1702 EDT calcium gluconate 1 g injection 0 g INTRAVENOUS Infusion Complete 12/02/20242009 EDT dextrose 10% iv bolus 250 mL INTRAVENOUS New Bag/Syringe/Bottle 12/02/2024 2030 EDT dextrose 10% iv bolus 0 mL INTRAVENOUS Infusion Complete 12/02/20242039 EDT insulin regular human 10 Units injection (short acting) 10 Units INTRAVENOUS Given 12/02/20242009 EDT sodium bicarbonate 1 mEq/mL (8.4 %) 50 mEq injection 50 mEq INTRAVENOUS Given 12/02/20242009 EDT calcium gluconate 1 g injection 1 g INTRAVENOUS New Bag/Syringe/Bottle 12/02/20242014 EDT calcium gluconate 1 g injection 0 g INTRAVENOUS Infusion Complete 12/02/20241999 EDT albuterol 2.5 mg /3 mL (0.083 %) 2.5 mg (PROVENTIL) 2.5 mg INHALATION Given 12/02/20241999 EDT albuterol 2.5 mg/0.5 mL 7.5 mg nebulizer solution (PROVENTIL) 7.5 mg INHALATION Given 12/02/20242009 EDT furosemide 40 mg injection (LASIX) 40 mg INTRAVENOUS Given 12/02/20242023 EDT albuterol 2.5 mg /3 mL (0.083 %) 5 mg (PROVENTIL) 5 mg INHALATION Given 12/02/20242038 EDT furosemide 40 mg injection (LASIX) 40 mg INTRAVENOUS Given Re-evaluation see ED course Olivia Salvador APRN.CNP Disposition The patient was admitted. Counseled patient regarding suspected diagnosis and lab results. Admitted to ICU. The patient was discussed with the emergency medicine physicians on site Dr. Rich and Dr. Mueller. SIGNATURE: Olivia Salvador APRN.CNP Attending Note Attestation for: DIVERSIFIED CROPS FARMWORKER/PA I have personally performed a face to face assessment of the patient and have reviewed the YUE note. I personally made/approved the management plan and take responsibility for the patient management. I performed a substantive portion of the visit including all aspects of the following. My brar findings include: SEE ABOVE ED STAFF ATTENDING [facility] Critical Care I spent a total of 30 minutes of critical care time in the evaluation and management of this patient. This was necessary to treat or prevent deterioration of the following condition(s): which the patient had and/or has high probability of suddenly developing. The patient received : ECG interpretation, lab interpretation, IV calcium, IV glucose, IV insulin, report to oncoming physician, discussion with YUE. during the time that critical care was provided. Critical care time excludes separately billed procedures. Critical care time documentation enter by Steven Rich MD. Signature: Steven Rich MD Date: 12/03/2024 Time: 2:12 PM OLIVIA SALVADOR 12/02/242039 STEVEN RICH 12/03/24 1412 ECG COMPLETE Observed: 12/02/2024 4:11 PM Status: F Source: [facility] Ventricular Rate : 59 BPM Atrial Rate : 59 BPM P-R Interval : 198 ms QRS Duration : 96 ms Q-T Interval : 466 ms QTC Calculation(Bazett) : 461 ms Calculated P North Pitcher : 38 degrees Calculated R North Pitcher : 76 degrees Calculated T North Pitcher : 79 degrees SINUS BRADYCARDIA NONSPECIFIC ST ABNORMALITY ABNORMAL ECG NOTE: PLEASE SEE PHYSICIAN'S NOTE FROM E.D. VISIT Confirmed by STEVEN RICH MD ([id number]), video effects editor SAMMIE ROMERO ([id number]) on 12/03/2024 11:00:43 PM NAME : CHINA GUILLEN PID : [id number] : 1985 Gender : Male Race : ORD : [id number] Procedure Date : Dec 02 2024 16:11:59 Edit Date : Dec 03 2024 23:00:46 Diagnosis: SINUS BRADYCARDIA NONSPECIFIC ST ABNORMALITY ABNORMAL ECG NOTE: PLEASE SEE PHYSICIAN'S NOTE FROM E.D. VISIT Confirmed by STEVEN RICH MD ([id number]), video effects editor SAMMIE ROMERO ([id number]) on 12/03/2024 11:00:43 PM Test Reason : Chest Pain Location : 2 : EDNS [id number] Overread By : STEVEN RICH MD Edited By : SAMMIE ROMERO Referred By : , Acquired by : sb, CBC W AUTO DIFF BLD Collected: 12/02/2024 3:[address] atus: F Source: [facility] Order Comment: Specimen Type : BLOOD SPECIMEN Ordering Facility: [facility] Address: [address] [place] [address] TYPE CODE TESTS RESULT OUT OF RANGE REFERENCE UNITS LAB 6690-2(LOINC) WBC # Bld Auto 6.40 3.70-11.00 k/uL LAB 789-8(LOINC) RBC # Bld Auto 4.02 Low 4.20-6.00 m/ uL LAB 718-7(LOINC) Hgb Bld-mCnc 12.3 Low 13.0-17.0 g/dL LAB 4544-3([facility]) Hct VFr Bld Auto 38.2 Low 39.0-51.0 % LAB 787-2([facility]) MCV RBC Auto 95.0 80.0-100.0 fL LAB 785-6([facility]) MCH RBC Qn Auto 30.6 26.0-34.0 p g LAB 786-4([facility]) MCHC RBC Auto-mCnc 32.2 30.5-36.0 g/dL LAB 39591-9([facility]) RDW RBC-Rto 14.9 11.5-15.0 % LAB 777-3([facility]) Platelet # Bld Auto 144 Low 150-400 k/uL LAB 64705-7([facility]) PMV Bld Auto 10.5 9.0-12.7 fL LAB 770-8([facility]) Neutrophils/leuk NFr Bld Auto 83.4 % LAB 751-8([facility]) Neutrophils # Bld Auto 5.34 1.45-7.50 k/uL LAB 736-9([facility]) Lymphocytes/leuk NFr Bld Auto 12.2 % LAB 731-0([facility]) Lymphocytes # Bld Auto 0.78 Low 1.00-4.00 k/uL LAB 5905-5([facility]) Monocytes/leuk NFr Bld Auto 1.7 % LAB 742-7([facility]) Monocytes # Bld Auto 0.11 <0.87 k/uL LAB 713-8([facility]) Eosinophil/leuk NFr Bld Auto 1.9 % LAB 711-2([facility]) Eosinophil # Bld Auto 0.12 <0.46 k/uL LAB 706-2([facility]) Basophils/leuk NFr Bld Auto 0.5 % LAB 704-7([facility]) Basophils # Bld Auto 0.03 <0.11 k/uL LAB 69162-7([facility]) Imm Granulocytes/ravinder k NFr Bld Auto 0.3 % LAB 47996-5([facility]) Imm Granulocytes # Bld Auto <0.03 <0.10 k/uL LAB 17639-4([facility]) nRBC/100 WBC Bld-Rto 0.0 /100 WBC LAB 771-6(LOINC) nRBC # Bld Auto <0.01 <0.01 k/u L LAB 04643-8([facility]) Differential method Bld Auto Performed By: #### 28138-9 # ### [facility] CLIA [id number] [address] [place] [address] [place] [address] [place] COMP METAB 2000 PNL SERPL Collected: 3:46 PM Status: F Source: [facility] Order Comment: Specimen Type : BLOOD SPECIMEN Ordering Facility: [facility] Address: [address] [place] [address] TYPE CODE TESTS RESULT OUT OF RANGE REFERENCE UNITS LAB 2885-2(LOINC) Prot SerPl-mCnc 9.0 High 6.3-8.0 g/dL LAB 1751-7(LOINC) Albumin SerPl-mCnc 3.8 Low 3.9-4.9 g/dL LAB 41326-6(LOINC) Calcium SerPl-mCnc 9.3 8.5-10.2 mg/dL LAB 1975-2(LOINC) Bilirub SerPl-mCnc 0.6 0.2-1.3 mg/dL LAB 6768-6(LOINC) ALP SerPl-cCnc 230 High 38-113 U/L LAB 1920-8(LOINC) AST SerPl-cCnc 20 14-40 U/L LAB 1742-6(LOINC) ALT SerPl-cCnc 23 10-54 U/L LAB 2345-7(LOINC) Glucose SerPl-mCnc 134 High 74-99 mg/dL Result Comment: The [place] Diabetes Association (ADA) provides guidance for cutoff values for fasting glucose and random glucose. The ADA defines fasting as no caloric intake for at least 8 hours. Fasting plasma glucose results between 100 to 125 mg/dL indicate increased risk for diabetes (prediabetes). Fasting plasma glucose results greater than or equal to 126 mg/dL meet the criteria for diagnosis of diabetes. In the absence of unequivocal hyperglycemia, results should be confirmed by repeat testing. In a patient with classic symptoms of hyperglycemia or hyperglycemic crisis, random plasma glucose results greater than or equal to 200 mg/dL meet the criteria for diagnosis of diabetes. Reference: Standards of Medical Care in Diabetes 2016, [place] [employer] Association. Diabetes Care. 2016.39(Suppl 1). LAB 3094-0(LOINC) BUN SerPl-mCnc 84 High 9-24 mg/ dL LAB 2160-0(LOINC) Creat SerPl-mCnc 9.55 High 0.73-1.22 mg/dL LAB 2951-2(LOINC) Sodium SerPl-sCnc 132 Low 136-144 mmol/L LAB 2823-3(LOINC) Potassium SerPl-sCnc 7.0 High Alert 3.7-5.1 mmol/L LAB 2075-0(LOINC) Chloride SerPl-sCnc 93 Low 98-107 mmol/L LAB 2028-9(LOINC) CO2 SerPl-sCnc 24 22-30 mmo l/L LAB 81547-8(LOINC) Anion Gap SerPl-sCnc 15 8-15 mmol/L LAB 41003-4(LOINC) Creatinine + eGFR Pnl SerPlBld 7 Low >=60 mL/min/1 .73m??? Result Comment: Estimated Gl omerular Filtration Rate (eGFR) is calculated using the 2020 CKD-EPI creatinine equation. This equation utilizes serum creatinine, sex, and age as parameters. The creatinine assay has traceable calibration to isotope dilution-mass spectrometry. Refer to KDIGO guidelines for clinical interpretation. In patients with unstable renal function, e.g. those with acute kidney injury, the eGFR may not accurately reflect actual GFR. Performed By: #### 33865-4, 39488-7 #### [facility] CLIA [id number] [address] [place] [address] [place] MAGNESIUM SERPL-MCNC Collected: 12/02/2024 3:46 PM S tatus: F Source: [facility] Order Comment: Specimen Type : BLOOD SPECIMEN Ordering Facility: [facility] Address: [address] [place] [address] TYPE CODE TESTS RESULT OUT OF RANGE REFERENCE UNITS LAB 91683-0([facility]) Magnesium SerPl-mCnc 2.1 1.7-2.3 mg/dL Performed By: #### 15259-8, 25483-2 #### [facility] CLIA [id number] OF [facility] ED NOTE Observed: 12/02/2024 3:23 PM Status: COMPLETED Source: [facility] HNO ID: [id number] Author: RUFINA VALDES RN Service: ? Author Type: Registered Nurse Type: ED Notes Filed: 12/02/2024 15:23 Note Text: Bed: E18-12 Expected date: Expected time: Means of arrival: Comments: ems NURSING PROG Observed: 12/02/2024 3:11 PM Status: COMPLETED Source: [facility] HNO ID: [id number] Author: MONALISA HENDRIX RN Service: ? Author Type: Registered Nurse Type: Nursing Progress Note Filed: 12/02/2024 15:24 Note Text: Venous blood gas ordered in post op. Potassium 6.4. Dr. Ovalle notified. [facility] team contacted. Patient transported to ED by [facility] at 1511. ANES POSTPROC EVAL Observed: 12/02/2024 3:02 PM Status: COMPLETED Source: [facility] HNO ID: [id number] Author: NICKIE OVALLE MD Service: ? 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 Post Anesthesia Patient Status Patient Evaluation: ED. Anticipated Disposition: inpatient floor unplanned admission. Neurological Status: aware and responsive. Pulmonary Status: breathing comfortably on room air Airway Control: returned to baseline unsupported. Cardiovascular Status: stable. Pain Management: clinically adequate Postoperative Hydration: acceptable. Intraoperative Events: no significant anesthesia events Post Operative Nausea/Vomiting Status: no significant post operative nausea or vomiting Recommendation: further care per PACU/ICU/floor team. Other Remarks: Patient without complaints post op, however, post op VBG to check o K+ showed an increase to 6.4, probably in part due to a mild respiratory acidosis. Given that level of K+, do not feel that it is prudent to send patient back to nursing care facility without treating potassium first. . Anesthesia Observations No Documentation SIGNATURE: Nickie Ovalle MD PATIENT NAME: China Guillen DATE: December 02, 2024 TIME: 3:02 PM CSN: [id number] GAS + CO PNL BLDV Collected: 1:59 PM Status: F Source: [facility] Order Comment: Specimen Type : VENOUS BLOOD SPECIMEN Ordering Facility: [facility] Address: [address] [place] [address] TYPE CODE TESTS RESULT OUT OF RANGE REFERENCE UNITS LAB 2746-6(LOINC) pH BldV 7.32 7.32-7.42 LAB 69814-8(LOINC) pH temp adj BldV 7.32 7.32-7.42 LAB 2020-4(LOINC) pCO2 BldV 57 High 42-55 mmHg LAB 44235-2(LOINC) pCO2 temp adj BldV 57 High 42-55 mmHg LAB 2705-2(LOINC) pO2 BldV 76 High 35-45 mmHg LAB 54690-0(LOINC) pO2 temp adj BldV 76 High 35-45 mmHg LAB 2711-0(LOINC) SaO2 % BldV 93 High 60-85 % LAB 1927-3(LOINC) Base excess BldV Calc-sCnc 2 0-2 mmol/L LAB 21684-1(LOINC) HCO3 BldV-sCnc 28 24-28 mmol/L LAB 2716-9(LOINC) OxyHgb MFr BldV 91 High 60-85 % LAB 2032-1(LOINC) COHgb MFr BldV 1.7 0.0-2.0 % Result Comment: Carboxyhemog lobin Reference Range for Smokers: 2.0-8.0% LAB 2614[facility] MetHgb MFr Bld 0.9 0.0-1.5 % LAB 2947-0(INC) Sodium Bld-sCnc 137 136-144 mmol/L LAB 6298-4([facility]) Potassium Bld-sCnc 6.4 High Alert 3.5-5.0 mmol/L LAB 25452-7([facility]) Ca-I Bld-mCnc 1.20 1.08-1.30 m mol/L LAB 45895-5([facility]) Ca-I adj pH7.4 BldA-sCnc 1.15 1.08-1.30 mmol/L LAB 2339-0([facility]) Glucose Bld-mCnc 127 High 60-105 mg/dL LAB 27473-8([facility]) Lactate Bld-sCnc 1.6 0.5-2.2 mmol/L LAB 718-7([facility]) Hgb Bld-mCnc 11.8 Low 13.0-17.0 g/dL LAB 4544-3(INC) Hct VFr Bld Auto 36.4 Low 39.0-51.0 % Performed By: #### 30010-1 # ### [facility] CLIA [id number] [address] [place] [address] [place] PROCEDURE NOTE Observed: 12/02/2024 12:07 PM Status: COMPLETED Source: [facility] HNO ID: [id number] Author: YANDEL MARTINS APRN.CUSTOMER ACCOUNT MANAGER Service: ? Author Type: Nurse Registered Pharmacy Technician Type: Anesthesia Procedure Notes Filed: 12/02/2024 12:09 Note Text: ANESTHESIOLOGY PROCEDURE NOTE Airway General Information Procedure Start Time/Medication Administration: 12/02/2024 11:36 AM Procedure End Time: 12/02/2024 12:08 PM Patient location during procedure: OR Timeout Performed Pre-procedure: timeout performed Consent Obtained: Yes Patient identity confirmed: arm band, patient and care body service team member Staffing CUSTOMER ACCOUNT MANAGER: Yandel Martins APRN.CUSTOMER ACCOUNT MANAGER Performed by: TAY Indications and Patient Condition Indications for airway management: anesthesia Preoxygenated: yes anesthesia circuit Method: sleep Difficult Mask: No Final Airway Details Final airway type: endotracheal airway Final Endotracheal Airway: ETT Cuffed: yes Successful intubation technique: video laryngoscopy Devices used: Tucker Blade: Sejal Blade size: #4 ETT size (mm): 7.0 Measured from: lips Measurement (cm): 23 Placement verified by: capnometry Cormack-Lehane Classification: grade IIa - partial view of glottis Number of attempts at approach: 1 Failed airway: no Unrecognized esophageal intubation: no Airway not difficult Comments Atraumatic SIGNATURE: Yandel Martins APRN.CRNA PATIENT NAME: China Guillen DATE: December 02, 2024 TIME: 12:07 PM CSN: [id number] OPERATIVE NO Observed: 12/02/2024 11:27 AM Status: COMPLETED Source: [facility] ID: [id number] Author: MUNIR BURTON MD Service: Ophthalmology Author Type: Physician Type: Operative Report Filed: 12/02/2024 13:40 Note Text: LOG ID: [id number] Surgery/Procedure Date: 12/02/2024 Incision/Procedure Start Time: 12:06 PM Incision Close/Procedure End Time: 1:25 PM Surgeon(s)/Proceduralist(s) and Mineral Engineer(s): Surgeons and Role: Panel 1: * Munir Burton MD - Primary * Morales Díaz MD - Fellow Panel 2: * Anderson Swanson MD - Primary OPERATION: Complex retinal detachment repair with pars plana vitrectomy with endolaser panretinal photocoagulation with air-fluid exchange OD Anesthesia: General PREOPERATIVE DIAGNOSES: 1. 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 Vitreous hemorrhage OD OPERATIVE INDICATIONS: Decreased vision OPERATIVE PROCEDURE: After the risks, benefits, and alternatives of the procedure were explained to the patient, informed consent was obtained and verified. The attending surgeon, Dr. Munir Burton, identified the patient in the preoperative holding area and the appropriate operative site was marked. A huddle was called to verify incisional surgery as well as the incisional site. Patient was then brought back into the operative room suite where a verbal time-out was again confirmed. The patient was sedated and a retrobulbar block was placed in the OD retrobulbar space without complication, consisting of a 50:50 mixture of 1% lidocaine and 0.75% Marcaine. Patient was then prepped and draped in the usual ophthalmic fashion and a lid speculum was placed into the surgical eye. At this time, Dr. Anderson Swanson scrubbed in and performed the cataract portion of the surgery and will dictate this separately. A 23-gauge trocar cannula system was used to place a cannula in the inferotemporal quadrant in a typical beveled entry with conjunctival displacement. An infusion line was assembled and flushed free of all in-line air. The infusion line was clamped and placed into the cannula and was directly visualized in the vitreous cavity prior to unclamping. The infusion line was then unclamped and 2 additional cannulas were placed into the superotemporal and superonasal quadrants in a similar fashion. At this time using the wide-angle viewing system, the vitreous cutter and light pipe were introduced into the eye and core vitrectomy was performed. At all times throughout the case light exposure to the macula and fovea were minimized to reduce the risk of phototoxicity. A partial posterior vitreous separation was present with extensive/dense vitreous hemorrhage. The hemorrhage was carefully cleared. And a core vitrectomy was performed. The hyaloid was lifted from the optic nerve. A focal peripheral tractional retinal detachment was present and the hyaloidal traction was relieved. No open breaks were identified. The retinal periphery was examined with 360-degree scleral depression. No retinal breaks were noted. Endolaser panretinal photocoagulation was performed. An air-fluid exchange was performed. The cannulas were removed and sclerotomies were sutured with 8-0 vicryl. Subconjunctival injections of Ancef and Decadron were given. A sterile ophthalmic dressing consisting of erythromycin ointment was placed onto the eye. A patch and shield were placed over the eye. The patient tolerated the procedure well without any complications, taken to the postoperative recovery area in good condition. . Estimated Blood Loss: Minimal (< 1 mL) Specimens: * No specimens in log * Implantable Devices: Implant Name Type Inv. Item Serial No. Continuous Yarn Dyeing Machine Operator Lot No. LRB No. Used Action Model No. CCA0T0.195 [employer] - [id number] Intraocular Lens CCA0T0.195 [employer] [id number] [facility] Right 1 Implanted CCA0T0.195 ' Drains: none Complications: none No qualified resident was available. Fellow closed, under direct supervision and the remainder of the procedure was performed by the primary surgeon/proceduralist with assistance. SIGNATURE: Munir Burton MD PATIENT NAME: China Giullen DATE: December 02, 2024 TIME: 1:34 PM OPERATIVE NO Observed: 12/02/2024 11:27 AM Status: COMPLETED Source: [facility] ID: [id number] Author: ANDERSON SWANSON MD Service: Ophthalmology Author Type: Physician Type: Operative Report Filed: 12/02/2024 13:41 Note Text: Log ID: [id number] NAME: China uGillen SURGERY START TIME: 12:06 PM SURGERY END TIME: 1:25 PM SURGERY/PROCEDURE DATE: 12/02/2024 SURGEON(S)/ORNAMENTAL IRON ERECTOR(S): Anderson Swanson - Primary IMPLANTS: Implant Name Type Inv. Item Serial No. Continuous Yarn Dyeing Machine Operator Lot No. LRB No. Used Action Model No. CCA0T0.195 [employer] - [id number] Intraocular Lens CCA0T0.195 [employer] [facility] [employer] [id number] [facility] Right 1 Implanted CCA0T0.195 PROCEDURE: Complex Cataract Extraction by Phacoemulsification with Posterior Chamber Intraocular Lens Implantation of the right eye requiring capsular staining with Trypan blue. DIAGNOSIS: 1. Senile nuclear cataract right eye. 2. Poor red reflex secondary to posterior pathology, right eye ANESTHESIA: Retrobulbar solution with 0.75% marcaine, 2% lidocaine with hyaluronidase right eye. COMPLICATIONS: None ESTIMATED BLOOD LOSS: Less than 1cc SPECIMENS: None DESCRIPTION OF PROCEDURE: Prior to the surgery, the benefits and risks of the surgery were discussed at length, including the potential risk of post-operative pain, decreased vision, corneal edema, glaucoma, infection, need for glasses, and/or need for further surgery. Signed informed consent was obtained at this time. The patient was transferred to the operating suite and laid supine on the operating room table. The patient was then prepped and draped in sterile fashion for ophthalmic surgery of the right eye. A lid speculum was placed in the operated eye. Topical lidocaine 4% was applied to the operative eye. A paracentesis was created 45-degrees away (clock-romero) from the planned main incision site using a supersharp blade and 0.12 forceps. Supplemental intracameral lidocaine (1%, non-preserved) was injected into the anterior chamber for local anesthesia. Trypan blue was injected into the anterior chamber and then rinsed out with balanced salt solution to improve the anterior capsular visibility. Viscoeslastic was then injected into the anterior chamber to deepen it. A three-stage temporal clear corneal incision was then created using a 2.4mm keratome. The anterior capsulotomy was then performed. A cystitome was used to create a tear in the anterior capsule of the crystalline lens. The Utrada forceps were then used to manipulate this tear into a continuous curvilinear capsulorrhexis. Once this was completed, hydrodissection was performed using balanced salt solution on a canula. A posterior fluid wave was noted during hydrodissection. Adequate rotation of the lens nucleus was confirmed prior to proceeding. Phacoemulsification of the lens nucleus was then begun. The phaco machine was set on sculpt mode and inserted into the eye. The lens nucleus was grooved and rotated in a cross-romero fashion. Once grooving was completed, the nucleus was split into quadrants using a bimanual technique. The phaco machine was then set on quadrant removal mode. The phaco tip was used to engage each nuclear quadrant, bring it to the pupillary center, and phacoemulsify it. Residual epi-nuclear material was removed from the capsular bag using epinucleus mode. Next, the irrigation and aspiration handpiece was connected, set on cortex mode, and inserted into the eye. The IA handpiece was used to remove residual cortical material from the capsular bag. The machine was then set on tongan mode and the IA handpiece was used to gently remove cortical debris from the posterior capsule. Viscoelastic was then injected into the capsular bag to deepen it. The IOL injector was then prepared. The IOL injector was inserted into the eye and the IOL was injected into the capsular bag. A Sinsky hook was used to rotate and position the IOL such that both haptics were confirmed to be in the capsular bag. The IA handpiece was re-inserted into the eye and used to remove residual viscoelastic material. The chamber was reformed with balanced salt solution. A 10-0 nylon suture was passed through the main wound, tied, trimmed and buried. The wounds were carefully checked with a Weck-Kaur spear and found to be watertight. The surgery was then turned over to Dr. Burton to complete the vitreoretinal portion of the surgery. Dr. Swanson performed the entire procedure. I have reviewed the images and report from the Ophthalmic Biometry 12/02/2024 to determine the Intraocular lens Power Calculation for the IOL lens implant. I have interpreted and agree with the calculation of the IOL as listed below. SignedAnderson MD NURSING PROG Observed: 12/02/2024 11:16 AM Status: COMPLETED Source: [facility] HNO ID: [id number] Author: HAIR PINEDA RN Service: ? Author Type: Registered Nurse Type: Nursing Progress Note Filed: 12/02/2024 11:17 Note Text: Left below the knee amputee NURSING PROG Observed: 12/02/2024 11:07 AM Status: COMPLETED Source: [facility] HNO ID: [id number] Author: HAIR PINEDA RN Service: ? Author Type: Registered Nurse Type: Nursing Progress Note Filed: 12/02/2024 11:15 Note Text: Patient arrived from a facility with caregiver, urinary catheter at side of bed colostomy in place. Off of oxygen patient is 95% on room air ANES PRE-OP Observed: 12/02/2024 10:45 AM Status: COMPLETED Source: [facility] HNO ID: [id number] Author: NICKIE OVALLE MD Service: ? Author Type: Anesthesiologist Type: Anesthesia Preprocedure Evaluation Filed: 12/02/2024 12:08 Note Text: ANESTHESIOLOGY DAY OF SURGERY NOTE : 1985 Procedure Information Date/Time: 12/02/24 1102 Procedures: VITRECTOMY MECHANICAL 23 G PARS PLANA APPROACH (Right: Eye) EXAM UNDER ANESTHESIA EYE COMPLETE (Right: Eye) PHACOEMULSIFICATION CATARACT ANTERIOR IMPLANT INTRAOCULAR LENS W/O ENDOSCOPIC CYCLOPHOTOCOAGULATION (Right: Eye) Location: [place] [address] / [facility] Surgeons: Munir Burton MD; Anderson Swanson MD Estimated body mass index is 36.62 kg/m? as calculated from the following: Height as of 11/05/24: 182.9 cm (6'). Weight as of 11/05/24: 122.5 kg (270 lb). 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 Tracheostomy tube not present Mallampati: III. TM distance: >3 FB. Neck ROM: full ROM without neurological symptoms. Mouth opening: adequate. Short neck: no. Thick neck: no DENTAL Dental findings: teeth intact. II - ANESTHESIA PLAN ASA Score: 4 Anesthetic Plan: general Airway type: ETT NPO Status: adequate Anesthetic plan additional comments: K 5.8, which is slightly higher than baseline for him. Had nurses aid all to see if he can get in to be dialyzed sooner than Saturday due to this potassium level since he is missing his dialysis today, however, the [facility] center in [place] cannot confirm that they will have space to dialyze him before Saturday. Do not feel that it is appropriate for him to wait until Saturday for dialysis. Discussed with internal medicine here. They will admit and organize to have patient dialyzed prior to discharge. . Beta Walt Monitoring Plan Monitoring plan: standard ASA. Post Procedure Analgesic Plan Postoperative analgesic plan: multimodal analgesia. Informed Consent Anesthetic risks, benefits, alternatives, personnel and consent discussed: yes. Patient / Responsible Democrat agrees to proceed: yes Patient / Surrogate agrees to blood products: blood products not planned Significant changes in the patient condition since the History and Physical, not otherwise documented in primary service progress note: no. Potential Anesthesia issues that may suggest increased risk of complications or contraindication to planned procedure: none. Discussed the possibility of lip / dental damage: yes Vitals Value Taken Time BP 166/71 12/02/24 1028 Pulse 65 12/02/24 1044 Resp Temp SpO2 98 % 12/02/24 1044 Vitals shown include unfiled device data. Facility-Administered Medications as of 12/02/2024 Medication Dose Route Frequency lactated ringers iv infusion 30 mL/hr INTRAVENOUS CONTINUOUS [] tropicamide 0.5% - cyclopentolate 0.5% - PHENYLephrine 2.5% ophthalmic syringe 1 drop RIGHT EYE q 5 MIN acetaminophen 650 mg tab(s) (TYLENOL) 650 mg ORAL q 6 H PRN hydrALAZINE injection (APRESOLINE) INTRAVENOUS PRN Outpatient Medications as of 12/02/2024 Medication Sig gabapentin (NEURONTIN) 100 mg capsule sevelamer carbonate (RENVELA) 800 mg tablet Take 3 tablets by mouth three times a day with meals. cloNIDine HCl (CATAPRES) 0.2 mg tablet Take 1 tablet by mouth two times a day. acetaminophen (TYLENOL) 325 mg tablet Take 650 mg by mouth every 4 hours as needed for pain or fever (specify temp.). LANTUS U-100 INSULIN 100 unit/mL injection Inject 8 Units subcutaneously every afternoon. sevelamer (RENAGEL) 800 mg tablet Take 2,400 mg by mouth three times a day. hydrALAZINE (APRESOLINE) 50 mg tablet Take 50 mg by mouth three times a day. carvedilol (COREG) 25 mg tablet Take 50 mg by mouth two times a day with meals. calcitriol (ROCALTROL) 0.5 mcg capsule Take by mouth. DULoxetine (CYMBALTA) 30 mg capsule hydrOXYzine HCl (ATARAX) 25 mg tablet Take 1 tablet by mouth every 6 hours as needed for itching/rash. tacrolimus IR (PROGRAF) 1 mg capsule Take 2 capsules by mouth two times a day. diphenhydrAMINE-Zinc Acetate (ANTI-ITCH,DIPHENHYD, WITH ZINC) cream Apply to affected area three times a day as needed for itching/rash. menthol (BIOFREEZE, MENTHOL,) 4 % topical gel Apply to bilateral shoulders ever morning and at bedtime Ciclopirox (CICLODAN) 8 % solution Apply to affected area daily at bedtime. (For nail fungus) guaiFENesin (ROBITUSSIN) 100 mg/5 mL syrup Take 10 mL by mouth every 4 hours as needed for cough. nystatin (MYCOSTATIN) powder Apply to groin and abdominal folds topically every 12 hours as needed for skin irritation b complex, c, folic acid 1 mg renal vitamins (RENAL CAPS) 1 mg capsule Take 1 capsule by mouth once daily. Ascorbic Acid 500 mg chew Take 500 mg by mouth once daily. OXYGEN, HOME THERAPY, 2 L/min by Nasal Cannula route as directed. To keep sats >% - LPM via NC to maintain pulse ox above 92% as needed if patient has shortness of breath or s/sx of melatonin 3 mg tablet Take 9 mg by mouth daily at bedtime. apixaban (ELIQUIS) 2.5 mg tab(s) Take 2.5 mg by mouth two times a day. glucagon (GLUCAGEN) 1 mg injection Inject 1 mg intramuscularly as needed. For symptomatic hypoglycemia not responsive to oral intervention. Notify MEAT CUTTER/MD dextrose (GLUCOSE GEL ORAL) Give one dose by mouth as needed for hypoglycemic episode senna-docusate (SENNA PLUS) 8.6-50 mg per tablet Take 1 tablet by mouth two times a day. polyethylene glycol 3350 17 gram packet Take 1 Packet by mouth once daily as needed. Dissolve dose in 4 - 8 ounces of liquid and take as directed. epoetin jacki 10,000 unit/mL injection Inject 1 mL subcutaneously 3 Times weekly with dialysis. ondansetron (ZOFRAN) 4 mg tablet Take 4 mg by mouth every 8 hours as needed for nausea/vomiting. 4 MG by mouth every six hours as needed pantoprazole DR (PROTONIX) 40 mg tablet Take 40 mg by mouth once daily. escitalopram oxalate (LEXAPRO) 20 mg tablet Take 20 mg by mouth once daily. insulin lispro (ADMELOG) 100 unit/mL injection Inject 5 Units subcutaneously three times a day before meals. In addition to sliding scale if B-200 = 2 units 201-250 = 3 units 251-300 = 4 units 301-350 = 5 units 351-400 = 6 units 401-450 = 7 untis levothyroxine (SYNTHROID) 150 mcg tablet Take 150 mcg by mouth daily before breakfast. atorvastatin (LIPITOR) 40 mg tablet Take 40 mg by mouth daily at bedtime. I have interviewed and examined the patient. I have reviewed the medical record and/or the pre-anesthesia evaluation, pertinent labs, and test results. This contains updated information obtained within 48 hours of Surgery/Procedure. SIGNATURE: Nickie Ovalle MD PATIENT NAME: China Guillne DATE: December 02, 2024 TIME: 10:45 AM CSN: [id number] GAS + CO PNL BLDV Collected: 10:41 AM Status: F Source: [facility] Order Comment: Specimen Type : VENOUS BLOOD SPECIMEN Ordering Facility: [facility] Address: [address] [place] [address] TYPE CODE TESTS RESULT OUT OF RANGE REFERENCE UNITS LAB 2746-6(LOINC) pH BldV 7.41 7.32-7.42 LAB 98870-6(LOINC) pH temp adj BldV 7.41 7.32-7.42 LAB 2020-4(LOINC) pCO2 BldV 45 42-55 mmHg LAB 45927-4(LOINC) pCO2 temp adj BldV 45 42-55 mmHg LAB 2705-2(LOINC) pO2 BldV 75 High 35-45 mmHg LAB 16950-0(LOINC) pO2 temp adj BldV 75 High 35-45 mmHg LAB 2711-0(LOINC) SaO2 % BldV 94 High 60-85 % LAB 1927-3(LOINC) Base excess BldV Calc-sCnc 3 High 0-2 mmol/L LAB 73797-0(LOINC) HCO3 BldV-sCnc 28 24-28 mmol/L LAB 2716-9(LOINC) OxyHgb MFr BldV 91 High 60-85 % LAB 2032-1(LOINC) COHgb MFr BldV 1.9 0.0-2.0 % Result Comment: Carboxyhemog lobin Reference Range for Smokers: 2.0-8.0% LAB 2614-6(LOINC) MetHgb MFr Bld 1.5 0.0-1.5 % LAB 2947-0(LOINC) Sodium Bld-sCnc 137 136-144 mmol/L LAB 6298-4([facility]) Potassium Bld-sCnc 5.8 High 3.5-5.0 mmol/L LAB 45165-9([facility]) Ca-I Bld-mCnc 1.20 1.08-1.30 m mol/L LAB 03208-3([facility]) Ca-I adj pH7.4 BldA-sCnc 1.20 1.08-1.30 mmol/L LAB 2339-0([facility]) Glucose Bld-mCnc 132 High 60-105 mg/dL LAB 90141-4([facility]) Lactate Bld-sCnc 1.0 0.5-2.2 mmol/L LAB 718-7([facility]) Hgb Bld-mCnc 12.3 Low 13.0-17.0 g/dL LAB 4544-3([facility]) Hct VFr Bld Auto 38.0 Low 39.0-51.0 % Performed By: #### [id number] # ### [facility] CLIA [id number] [address] [place] [address] CNPN Observed: 12/02/2024 12:00 AM Status: COMPLETED Source: [facility] Telephone (TOHSMN) CHINA GUILLEN ([id number]) 1985 M Date Time Provider Department 12/02/24 MUNIR BURTON [facility] During your visit today, we recorded the following information about you: Cecy Hernandez, RN 12/02/2024 2:51 PM Signed [facility] contacted me (unclear why the call was routed to me) with a Potassium of 6.4 (Venous) for China Guillen / [id number] (patient scheduled for mechanical vitrectomy today). Notified both Dr. Austin Burton and Dr. Eulogio Ovalle of the Urgent/Critical Value. Cecy Hernandez RN December 02, 2024 2:40 PM Allergies As of Date: 12/02/2024 (No Known Allergies) Date Reviewed: 12/02/2024 Reviewed by: Monalisa Hendrix RN - Fully Assessed Reason for Visit: Results [95] Prescriptions as of 12/02/2024 - calcitriol (ROCALTROL) 0.5 mcg capsule Take by mouth. - DULoxetine (CYMBALTA) 30 mg capsule - gabapentin (NEURONTIN) 100 mg capsule - prednisoLONE acetate (PRED FORTE) 1 % ophthalmic suspension Use 1 Drop in the right eye as directed. FOUR (4) TIMES FOR 1 WEEK, THREE (3) TIMES FOR 1 WEEK, THEN TW0 (2) TIMES A DAY FOR 1 WEEK, THEN ONE (1) TIME DAILY FOR 1 WEEK AND THEN STOP - ofloxacin (OCUFLOX) 0.3 % ophthalmic solution Use 1 Drop in the right eye four times daily. - cyclopentolate (CYCLOGYL) 1 % ophthalmic solution Use 1 Drop in the right eye two times a day. - hydrOXYzine HCl (ATARAX) 25 mg tablet Take 1 tablet by mouth every 6 hours as needed for itching/rash. - sevelamer carbonate (RENVELA) 800 mg tablet Take 3 tablets by mouth three times a day with meals. - cloNIDine HCl (CATAPRES) 0.2 mg tablet Take 1 tablet by mouth two times a day. - tacrolimus IR (PROGRAF) 1 mg capsule Take 2 capsules by mouth two times a day. - acetaminophen (TYLENOL) 325 mg tablet Take 650 mg by mouth every 4 hours as needed for pain or fever (specify temp.). - diphenhydrAMINE-Zinc Acetate (ANTI-ITCH,DIPHENHYD, WITH ZINC) cream Apply to affected area three times a day as needed for itching/rash. - menthol (BIOFREEZE, MENTHOL,) 4 % topical gel Apply to bilateral shoulders ever morning and at bedtime - Ciclopirox (CICLODAN) 8 % solution Apply to affected area daily at bedtime. (For nail fungus) - guaiFENesin (ROBITUSSIN) 100 mg/5 mL syrup Take 10 mL by mouth every 4 hours as needed for cough. - nystatin (MYCOSTATIN) powder Apply to groin and abdominal folds topically every 12 hours as needed for skin irritation - b complex, c, folic acid 1 mg renal vitamins (RENAL CAPS) 1 mg capsule Take 1 capsule by mouth once daily. - Ascorbic Acid 500 mg chew Take 500 mg by mouth once daily. - OXYGEN, HOME THERAPY, 2 L/min by Nasal Cannula route as directed. To keep sats >% - LPM via NC to maintain pulse ox above 92% as needed if patient has shortness of breath or s/sx of - melatonin 3 mg tablet Take 9 mg by mouth daily at bedtime. - apixaban (ELIQUIS) 2.5 mg tab(s) Take 2.5 mg by mouth two times a day. - glucagon (GLUCAGEN) 1 mg injection Inject 1 mg intramuscularly as needed. For symptomatic hypoglycemia not responsive to oral intervention. Notify MEAT CUTTER/MD - LANTUS U-100 INSULIN 100 unit/mL injection Inject 8 Units subcutaneously every afternoon. - dextrose (GLUCOSE GEL ORAL) Give one dose by mouth as needed for hypoglycemic episode - sevelamer (RENAGEL) 800 mg tablet Take 2,400 mg by mouth three times a day. - senna-docusate (SENNA PLUS) 8.6-50 mg per tablet Take 1 tablet by mouth two times a day. - polyethylene glycol 3350 17 gram packet Take 1 Packet by mouth once daily as needed. Dissolve dose in 4 - 8 ounces of liquid and take as directed. - epoetin jacki 10,000 unit/mL injection Inject 1 mL subcutaneously 3 Times weekly with dialysis. - ondansetron (ZOFRAN) 4 mg tablet Take 4 mg by mouth every 8 hours as needed for nausea/vomiting. 4 MG by mouth every six hours as needed - hydrALAZINE (APRESOLINE) 50 mg tablet Take 50 mg by mouth three times a day. - pantoprazole DR (PROTONIX) 40 mg tablet Take 40 mg by mouth once daily. - carvedilol (COREG) 25 mg tablet Take 50 mg by mouth two times a day with meals. - escitalopram oxalate (LEXAPRO) 20 mg tablet Take 20 mg by mouth once daily. - insulin lispro (ADMELOG) 100 unit/mL injection Inject 5 Units subcutaneously three times a day before meals. In addition to sliding scale if B-200 = 2 units 201-250 = 3 units 251-300 = 4 units 301-350 = 5 units 351-400 = 6 units 401-450 = 7 untis - levothyroxine (SYNTHROID) 150 mcg tablet Take 150 mcg by mouth daily before breakfast. - atorvastatin (LIPITOR) 40 mg tablet Take 40 mg by mouth daily at bedtime. 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] 04/17/2022 Mood disorder (HCC) [F39] 04/17/2022 Paraplegia (HCC) [G82.20] 04/17/2022 Sepsis (HCC) [A41.9] 04/17/2022 12/14/2022 Type 2 diabetes (HCC) [E11.9] 04/17/2022 Neurogenic bladder [N31.9] 04/17/2022 GERD (gastroesophageal reflux disease) [K21.9] 04/17/2022 Depression [F32.A] 04/17/2022 Anemia [D64.9] 04/17/2022 Kidney transplant status [Z94.0] 04/17/2022 Hyperlipidemia [E78.5] 04/17/2022 Cerebral infarction due to unspecified occlusio*04/17/2022 Obesity, Class I, BMI 30-34.9 [E66.811] 04/17/2022 Fever due to infection [B99.9] 07/02/2022 Severe sepsis (HCC) [A41.9, R65.20] 09/05/2022 09/13/2022 Acute pericardial effusion (HCC) [I30.9] 10/08/2022 Obesity, Class III, BMI >= 40 [E66.813] 10/08/2022 Acute renal failure superimposed on chronic kid*10/11/2022 Hyperkalemia [E87.5] 06/15/2024 06/17/2024 ESRD on dialysis (HCC) [N18.6, Z99.2] 06/16/2024 Dermatitis associated with moisture [L30.8] 06/16/2024 Wound, open, abdominal wall, anterior [S31.109A]06/16/2024 Ulcer of toe of right foot, limited to breakdow*06/16/2024 Hypertensive urgency [I16.0] 06/16/2024 06/17/2024 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] 06/17/2024 Immunosuppressive management encounter followin*06/17/2024 Type 1 diabetes mellitus with proliferative ret*07/28/2024 Type 1 diabetes mellitus with proliferative judie*07/28/2024 Total, mature senile cataract [H25.89] 07/28/2024 Essential hypertension, benign [I10] 10/09/2024 History of pulmonary embolism [Z86.711] 10/15/2024 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] 10/15/2024 Thrombocytopenia [D69.6] 10/15/2024 Left ventricular hypertrophy [I51.7] 11/10/2024 Obesity, Class II, BMI 35-39.9 [E66.812] 12/01/2024 Encounter Status:Closed by CECY HERNANDEZ on 12/02/24 PROGRESS Observed: 11/05/2024 2:28 PM Status: COMPLETED Source: [facility] HNO ID: [id number] Author: WILMAN YEH LPN Service: ? Author Type: LICENSED NURSE Type: Progress Notes Filed: 11/10/2024 14:36 Note Text: Fax sent to [email or web address] for most recent labs to review for upcoming surgery. Wilman Yeh LPN HISTORY PHYSICAL Observed: 11/05/2024 12:34 PM Status: COMPLETED Source: [facility] HNO ID: [id number] Author: DANIEL DIOP APRN.MEAT CUTTER Service: ? Author Type: Nurse Practitioner Type: H&P Filed: 11/10/2024 14:36 Note Text: [facility] HISTORY AND PHYSICAL EXAMINATION SERVICE DATE: 11/05/2024 SERVICE TIME: 2:35 PM PRIMARY CARE PHYSICIAN: Lang Peres DO Assessment Patient has the following medical conditions which may affect monie-operative course: Paraplegia (HCC) Assessment: 2/2 acute spinal thrombosis, wheelchair bound, resident at [facility] Type 2 diabetes mellitus with polyneuropathy (HCC) Assessment: IDDM, most recent labs requested from [facility], most recent A1c 05/2024 6.9 scanned into epic Acute pericardial effusion (HCC) Assessment: hx, moderate 10/2022, updated echo 2024 with no pericardial effusion noted Left ventricular hypertrophy Assessment: moderate, EF 55% per updated echo 10/2024 Essential hypertension, benign Assessment: controlled on rx Last 14 BP Last 14 Encounter BP Readings: Date: BP: 10/08/2024 114/76 06/15/2024 143/85 03/18/2024 226/130[Dr. Ovalle aware in to see patient[ 02/14/2024 155/62 10/22/2023 120/78 04/23/2023 130/80 10/08/2022 140/81 09/05/2022 126/58 07/02/2022 108/42[RN Notified[ 05/07/2022 146/69 04/16/2022 144/71 04/09/2022 90/59 04/02/2022 141/73 03/26/2022 192/102 Hyperlipidemia Assessment: c/w statin GERD (gastroesophageal reflux disease) Assessment: controlled on rx ESRD on dialysis ([facility]) Assessment: status failed kidney transplant back on IHD 2022 via AVF M,W,F at [facility] in [place], most recent labs requested from [facility] Neurogenic bladder Assessment: s/p chronic hurst Anemia Assessment: hx, receives epoetin jacki 3x/week at dialysis, most recent labs requested Hemoglobin Date Value 06/17/2024 9.6 g/dL 11/27/2021 11.1 G/DL Hematocrit (%) Date Value 06/17/2024 31.9 11/27/2021 35.0 WBC Date Value 06/17/2024 5.76 k/uL 11/27/2021 8.0 K/CUMM Thrombocytopenia Assessment: last platelets received 118 05/2024 scanned into [facility], more recent labs from dialysis center requested Ulcer of toe of right foot, limited to breakdown of skin ([facility]) Assessment: wound care daily at [facility] following podiatry Pressure ulcer of ischium, left, stage IV ([facility]) Assessment: s/p diverting colostomy 02/2021 by [facility]. Pressure ulcer of sacral region, stage 2 ([facility]) Assessment: s/p diverting colostomy 02/2024 by [facility]. Mood disorder ([facility]) Assessment: flat affect, slow to respond History of pulmonary embolism Assessment: 10/2022, daily Eliquis Hx of left BKA ([facility]) Assessment: 08/09 osteomyelitis Obesity (BMI 30-39.9) Assessment: Body mass index is 36.62 kg/m?. ANESTHESIA FINDINGS: Intubation History: No history of difficult intubation Significant Anesthesia Considerations: none Airway History: No history of difficult airway Franco Activity Status Index: METS: DASI Score: 0 Patient is totally dependent. Clinical Frailty Scale: 7. Severely frail STOP-Bang Score: Snores loudly Has or is being treated for high blood pressure BMI greater than 35 kg/m2 Has a large neck Male patient Denies feeling tired, fatigued, or sleepy during the daytime Has not been observed to stop breathing or choking/gasping during sleep Patient 50 years old or younger STOP-Bang Score: 5 [id number] Score: Age: <65 Sex: male CHF history: Yes Hypertension history: Yes Stroke/TIA/thromboembolism history: No Vascular disease history: Yes Diabetes history: Yes [id number] Score: 4 ARISCAT Score: Age: <=50 Preoperative SpO2: >=96% Respiratory infection in the last month: No Preoperative anemia: Yes Surgical incision: peripheral Duration of surgery: 2-3 hrs Emergency procedure: No ARISCAT Score: 27 I - PHYSICAL EVALUATION AIRWAY Patient intubated: No. Tracheostomy tube not present Mallampati: III. TM distance: >3 FB. Neck ROM: full ROM without neurological symptoms. Mouth opening: adequate. Short neck: no. Thick neck: yes Kwon present: yes Lip Bite Test: I Microretrognathia/Micronagthia/Recessed Chin: No DENTAL Dental findings: teeth intact. II - ANESTHESIA PLAN Anesthetic Plan: other Anesthetic plan additional comments: *PACC/TCI - anesthesia choice. Beta Walt Monitoring Plan Post Procedure Analgesic Plan Prepared for Surgery: optimally prepared for surgery. Most recent labs requested from SNF/dialysis center CONSULTS: Patient does not require consults for optimization at this time Planned Anesthetic: other anesthesia choice The Following Tests/Procedures Have Been Initiated: No orders of the defined types were placed in this encounter. REASON FOR VISIT: China Guillen is a 39 year old male who is scheduled for Procedure(s): VITRECTOMY MECHANICAL 23 G PARS PLANA APPROACH (Right) EXAM UNDER ANESTHESIA EYE COMPLETE (Right) PHACOEMULSIFICATION CATARACT ANTERIOR IMPLANT INTRAOCULAR LENS W/O ENDOSCOPIC CYCLOPHOTOCOAGULATION (Right) at the request of Dr. Burton, Munir Navarrete MD for consultation. My final recommendation will be communicated back to the requesting physician by way of shared medical record or letter. Subjective The patient has the following: COVID-19 Immunization Status Current Care Gaps Covid-19 Vaccine (2 - Pfizer risk series) Overdue since 08/15/2023 07/25/2023 Imm Admin: COVID-19 vaccine, age 12+ yr (P[employer]IRNATY) CHIEF COMPLAINT: Pre-op exam HPI: China Guillen is a 39 year old seen for PAC due to scheduled above surgery because of cataracts/?retinal detachment. 09/29/2024, Dr. Del Real's 1. DM with PDR OU - Prior documented macular edema and VH from outside records OD - Prior RD repair with SO 2019 per patient OS. - VA stable at LP OD, NLP OS - Visual hallucinations possibly component of rosalba bonnet. - IOP 13/15 - B scan diagnostic testing shows thickened PVD, possible small inferior TRD, no RRD - No view to the back of the eye - Recommend cataract surgery OD with Dr. Swanson to improve view, followed by repeat retina eval to determine need for retina intervention. - Plan for retina back-up at time of surgery. With EUA and possible PPV/EL/MP/gas/ooil OD if needed 2. 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 Swanson 04/30, recommended cataract surgery - Plan for combined surgery as above - Aim plano - Needs IOL calcs REVIEW OF SYSTEMS: General: No weight loss, malaise or fevers. Neurological: No history of TIA's, stroke, GAS STATION SUPERVISOR tumor, impaired sensorium, hemiplegia, paraplegia or quadraplegia. No neurological symptoms or problems. Respiratory: Positive for: home oxygen, obstructive sleep apnea and CPAP/BiPAP compliant. Patient is on 3-4 liter(s) of home O2. Negative for: asthma, COPD, pneumonia within 6 weeks, tobacco use and URI < 2 weeks. Cardiovascular: Positive for: anticoagulation therapy, CHF, DVT/PE, hypertension and murmur/valvular heart disease Negative for: abdominal aortic aneurysm, AICD/PPM, angina, arrhythmia, atrial fibrillation, CAD, chest pain, congenital heart defect, hyperlipidemia, recent TX, PTCA, PVD, open heart surgery and valve surgery. GI: +ostomy Positive for: GERD Negative for: abdominal pain, dysphagia, hepatitis, irritable bowel syndrome, inflammatory bowel disease, liver disease, nausea, vomiting and ETOH >2 drinks/day. : +hx kidney transplant, following [facility] transplant team Positive for: on dialysis, indwelling catheter and renal failure. The dialysis type is HD (MWF, [facility]). Patient's renal failure is chronic. Negative for: nephrolithiasis and urinary tract infection. Endocrine: Positive for: diabetes mellitus and hypothyroidism (on rx). Patient's diabetes mellitus is controlled by insulin. Hematology: Positive for: anemia, bruises/bleeds easily and chronic anti-coagulation/platelet meds. Patient is on anti-coagulation/platelet medication(s): DOAC. Negative for: transfusion of at least 4 units within 72 hours prior to surgery. Oncology: No history of CA metastasis, chemo within 30 days, or radiotherapy within 90 days. No history of oncological symptoms or problems. Psych: Positive for: anxiety (on rx) and depression (on rx). Negative for: Marijuana Use. Musculoskeletal: +left BKA +right 3 toe amputations Positive for: joint pain (shoulder). Implanted Devices: No implanted devices. PAST MEDICAL HISTORY Diagnosis Date Acquired absence of left leg above knee (HCC) Acquired absence of other right toe(s) (HCC) Acute infarction of spinal cord (HCC) Acute kidney failure, unspecified Acute osteomyelitis of left ankle or foot (HCC) Acute pulmonary edema (HCC) Anemia Anemia in chronic kidney disease (CKD) Body mass index 40.0-44.9, adult (HCC) Cerebral infarction due to unspecified occlusion or stenosis of unspecified cerebral artery (HCC) Chronic kidney disease (CKD), stage IV (severe) ([facility]) Chronic systolic (congestive) heart failure ([facility]) Congestive heart failure (CHF) ([facility]) Dependence on renal dialysis Depression Diabetes mellitus with chronic kidney disease ([facility]) End stage renal disease ([facility]) ESRD (end stage renal disease) ([facility]) Essential hypertension GERD (gastroesophageal reflux disease) Heart failure ([facility]) HLD (hyperlipidemia) Hyperkalemia Hyperlipidemia Hypertension Hypertensive heart and chronic kidney disease with heart failure and stage 1 through stage 4 chronic kidney disease, or chronic kidney disease ([facility]) Hypo-osmolality and hyponatremia Hypomagnesemia Hypothyroidism Insomnia Insomnia Kidney transplant failure ([facility]) Kidney transplant status ([facility]) FPC current use of insulin ([facility]) Major depressive disorder, recurrent, unspecified Mood disorder Morbid (severe) obesity due to excess calories ([facility]) Muscle weakness Neurogenic bowel Neurogenic bowel, not elsewhere classified Neuromuscular dysfunction of bladder Neuromuscular dysfunction of bladder Neuropathy Non-pressure chronic ulcer of other part of unspecified foot with unspecified severity ([facility]) Obstructive sleep apnea Osteomyelitis of vertebra, sacral and sacrococcygeal region ([facility]) Other disorders of phosphorus metabolism Other idiopathic peripheral autonomic neuropathy Other pericardial effusion (noninflammatory) ([facility]) Other pulmonary embolism without acute cor pulmonale, unspecified chronicity ([facility]) Paraplegia ([facility]) Paraplegia, incomplete ([facility]) PDR (proliferative diabetic retinopathy) ([facility]) Penile erosion 04/23/2023 Pressure ulcer of ischium, stage 4 ([facility]) Pressure ulcer of left buttock, unspecified stage 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 Right foot ulcer ([facility]) Sepsis ([facility]) T1DM (type 1 diabetes mellitus) ([facility]) Total, mature age-related cataract Type 2 diabetes ([facility]) Unspecified protein-calorie malnutrition ([facility]) UTI (urinary tract infection) Vitamin D deficiency PAST SURGICAL HISTORY Procedure Laterality Date COLOSTOMY TRANSPLANTATION OF KIDNEY WOUND DEBRIDEMENT HX 4 times of the wound FAMILY HISTORY Problem Relation Age of Onset No Known Problems Father Diabetes Mother No Known Problems Sister No Known Problems Brother No Known Problems Maternal Grandmother No Known Problems Maternal Grandfather No Known Problems Paternal Grandmother Cancer Paternal Grandfather Cancer Other Glaucoma Other Cataract Other Detached Retina No Family History Macular Degen No Family History Blindness No Family History Hypertension No Family History Heart No Family History Social History Tobacco Use Smoking status: Never Smokeless tobacco: Never Vaping Use Vaping status: Never Used Substance Use Topics Alcohol use: Never Drug use: Never Prior to Admission medications as of 11/10/24 1435 Medication Sig Last Dose Taking calcitriol (ROCALTROL) 0.5 mcg capsule Take by mouth. Yes DULoxetine (CYMBALTA) 30 mg capsule Yes gabapentin (NEURONTIN) 100 mg capsule Yes prednisoLONE acetate (PRED FORTE) 1 % ophthalmic suspension Use 1 Drop in the right eye as directed. FOUR (4) TIMES FOR 1 WEEK, THREE (3) TIMES FOR 1 WEEK, THEN TW0 (2) TIMES A DAY FOR 1 WEEK, THEN ONE (1) TIME DAILY FOR 1 WEEK AND THEN STOP Yes ofloxacin (OCUFLOX) 0.3 % ophthalmic solution Use 1 Drop in the right eye four times daily. Yes cyclopentolate (CYCLOGYL) 1 % ophthalmic solution Use 1 Drop in the right eye two times a day. Yes hydrOXYzine HCl (ATARAX) 25 mg tablet Take 1 tablet by mouth every 6 hours as needed for itching/rash. Yes sevelamer carbonate (RENVELA) 800 mg tablet Take 3 tablets by mouth three times a day with meals. Yes cloNIDine HCl (CATAPRES) 0.2 mg tablet Take 1 tablet by mouth two times a day. Yes tacrolimus IR (PROGRAF) 1 mg capsule Take 2 capsules by mouth two times a day. Yes acetaminophen (TYLENOL) 325 mg tablet Take 650 mg by mouth every 4 hours as needed for pain or fever (specify temp.). Yes diphenhydrAMINE-Zinc Acetate (ANTI-ITCH,DIPHENHYD, WITH ZINC) cream Apply to affected area three times a day as needed for itching/rash. Yes menthol (BIOFREEZE, MENTHOL,) 4 % topical gel Apply to bilateral shoulders ever morning and at bedtime Yes Ciclopirox (CICLODAN) 8 % solution Apply to affected area daily at bedtime. (For nail fungus) Yes guaiFENesin (ROBITUSSIN) 100 mg/5 mL syrup Take 10 mL by mouth every 4 hours as needed for cough. Yes nystatin (MYCOSTATIN) powder Apply to groin and abdominal folds topically every 12 hours as needed for skin irritation Yes b complex, c, folic acid 1 mg renal vitamins (RENAL CAPS) 1 mg capsule Take 1 capsule by mouth once daily. Yes Ascorbic Acid 500 mg chew Take 500 mg by mouth once daily. Yes OXYGEN, HOME THERAPY, 2 L/min by Nasal Cannula route as directed. To keep sats >% - LPM via NC to maintain pulse ox above 92% as needed if patient has shortness of breath or s/sx of Yes melatonin 3 mg tablet Take 9 mg by mouth daily at bedtime. Yes apixaban (ELIQUIS) 2.5 mg tab(s) Take 2.5 mg by mouth two times a day. Yes glucagon (GLUCAGEN) 1 mg injection Inject 1 mg intramuscularly as needed. For symptomatic hypoglycemia not responsive to oral intervention. Notify MEAT CUTTER/MD Yes LANTUS U-100 INSULIN 100 unit/mL injection Inject 8 Units subcutaneously every afternoon. Yes dextrose (GLUCOSE GEL ORAL) Give one dose by mouth as needed for hypoglycemic episode Yes sevelamer (RENAGEL) 800 mg tablet Take 2,400 mg by mouth three times a day. Yes senna-docusate (SENNA PLUS) 8.6-50 mg per tablet Take 1 tablet by mouth two times a day. Yes polyethylene glycol 3350 17 gram packet Take 1 Packet by mouth once daily as needed. Dissolve dose in 4 - 8 ounces of liquid and take as directed. Yes epoetin jacki 10,000 unit/mL injection Inject 1 mL subcutaneously 3 Times weekly with dialysis. Yes ondansetron (ZOFRAN) 4 mg tablet Take 4 mg by mouth every 8 hours as needed for nausea/vomiting. 4 MG by mouth every six hours as needed Yes hydrALAZINE (APRESOLINE) 50 mg tablet Take 50 mg by mouth three times a day. Yes pantoprazole DR (PROTONIX) 40 mg tablet Take 40 mg by mouth once daily. Yes carvedilol (COREG) 25 mg tablet Take 50 mg by mouth two times a day with meals. Yes escitalopram oxalate (LEXAPRO) 20 mg tablet Take 20 mg by mouth once daily. Yes insulin lispro (ADMELOG) 100 unit/mL injection Inject 5 Units subcutaneously three times a day before meals. In addition to sliding scale if B-200 = 2 units 201-250 = 3 units 251-300 = 4 units 301-350 = 5 units 351-400 = 6 units 401-450 = 7 untis Yes levothyroxine (SYNTHROID) 150 mcg tablet Take 150 mcg by mouth daily before breakfast. Yes atorvastatin (LIPITOR) 40 mg tablet Take 40 mg by mouth daily at bedtime. Yes No medication comments found. ALLERGIES No Known Allergies Objective PHYSICAL EXAM: General: alert and oriented (x3) and obese. Pertinent negatives noted - not distressed. Wheelchair bound, flat affect +hurst catheter . Skin: normal color, no rash or lesions. HEENT: EOM intact and pupils equal round. Pertinent negatives noted - no carotid bruit. Cardiovascular: regular rate and rhythm, normal S1 and S2, no rub, murmurs, or gallop. Respiratory: normal breath sounds, no wheezes or crackles. No chest wall deformity or tenderness. Abdomen: soft. Pertinent negatives noted - not tender. +ostomy intact. Extremities: +Right BKA +Left foot s/p toe amputations. Neurological: +normal cognition, but slow to respond. PAIN ASSESSMENT: VITALS: BP 136/74 Pulse 74 Temp (Src) 98 (Temporal) Resp 14 Ht 6' 0 (1.83m) Wt 270 lb (122.5kg) SpO2 99[on 3liters O2 via NC]% BMI 36.61 kg/(m2). Diagnostic tests reviewed for today's visit: Lab Value Units Date High Low HB 9.6 g/dL 06/17/2024 17.0 13.0 HCT 31.9 % 06/17/2024 51.0 39.0 WBC 5.76 k/uL 06/17/2024 11.00 3.70 PLT 151 k/uL 06/17/2024 400 150 NA 139 mmol/L 06/17/2024 144 136 K 5.0 mmol/L 06/17/2024 5.1 3.7 GLUC 201 mg/dL 06/17/2024 99 74 BUN 44 mg/dL 06/17/2024 24 9 CREAT 6.66 mg/dL 06/17/2024 1.22 0.73 PTSEC No results within date range. INR No results within date range. APTT No results within date range. ALT No results within date range. AST No results within date range. TBILI No results within date range. TSH No results within date range. Lab Value Units Date High Low HCGQT No results within date range. UHCG No results within date range. HCG, BODY* No results within date range. Lab Value Units Date High Low ABORHD No results within date range. ABSCREEN No results within date range. No results found for: HBA1C Recent Results (from the past 8760 hours) ECG COMPLETE Collection Time: 06/15/24 12:20 PM Result Value Ventricular Rate 80 Atrial Rate 80 P-R Interval 160 QRS Duration 86 QT Interval 404 QTC Calculation (Bazett) 465 Calculated P North Pitcher 21 Calculated R North Pitcher 26 Calculated T North Pitcher 46 Impression NORMAL SINUS RHYTHM NORMAL ECG Recent Results (from the past 51084 hours) ECHO Collection Time: 10/15/24 1:57 PM Impression CONCLUSIONS: - Technically difficult exam due to suboptimal positioning and body habitus. - Exam indication: Pre op clearance/Rule out effusion - The left ventricle is normal in size. There is moderate concentric left ventricular hypertrophy. Left ventricular systolic function is normal. EF = 55 ? 5% (2D 4-ch.) Normal left ventricular diastolic function. - The right ventricle is normal in size. Right ventricular systolic function is normal. - There are no significant valvular abnormalities. - The patient has not had a prior CC echocardiographic exam for comparison. * * * Final * * * Instructions Given to Patient: Instructions located in the after visit summary. Patient given verbal and written preop instructions and voices comprehension and compliance. SIGNATURE: Daniel Diop APRN.MEAT CUTTER PATIENT NAME: China Guillen DATE: November 05, 2024 TIME: 12:34 PM PAGER/CONTACT #: [email or web address] Observed: 10/15/2024 1:57 PM Status: F Source: [facility] Echocardiography Report: Tra nsthoracic Echo [facility] Date of service: 10/15/2024 1:57:52 PM LEAD Ordering physician: DANIEL DIOP Indication: Pre op clearance/Rule out effusion Technologist: Monalisa Rivera [facility] Interpreting physician: Anderson Ha MD PATIENT: Name: MR. CHINA GUILLEN : 1985 Age: 39 years Gender: M History of hypertension, diabetes mellitus, dyslipidemia and chronic kidney disease. Primary rhythm: sinus. Height: 182.90 cm BSA: 2.55 m Weight: 128.37 kg BMI: 38.4 kg/m Heart rate 72 bpm Technically difficult exam due to suboptimal positioning and body habitus. Color Doppler was utilized to interrogate the cardiac valves assessed and spectral Doppler was utilized to determine the flow velocities and pressure gradients reported in this exam. MEASUREMENTS: Value Indexed Normal Max aortic dimension 3.6 cm Ao < 3.8 Left atrial volume 55 ml (4ch A-L) 22 ml/m Richard <= 34 LV ID (diastole) 6.1 cm (2D) 2.38 cm/m LV ID (systole) 4.1 cm (2D) 1.60 cm/m IVS, leaflet tips 1.5 cm (2D) Posterior wall thickness 1.6 cm (2D) Left ventricular mass 446 g (2D) 175 g/m LV stroke volume 82 ml (2D 4-ch.) LV end diastolic volume 150 ml (2D 4-ch.) 58.6 ml/m 34<=EDVi<75 LV end systolic volume 67 ml (2D 4-ch.) 26.3 ml/m Ejection Fraction 55 % (2D 4-ch.) EF > 52 FINDINGS: LEFT VENTRICLE The left ventricle is normal in size. There is moderate concentric left ventricular hypertrophy. Left ventricular systolic function is normal. Normal left ventricular diastolic function. Mitral annular lateral E/e': 6.9. Mitral annular septal E/e': 7.6. Wall Motion: All scored segments are normal. RIGHT VENTRICLE The right ventricle is normal in size. Right ventricular systolic function is normal. RV systolic tissue Doppler velocity is 10.0 cm/s. Estimated right ventricular systolic pressure is not reported due to an insufficient tricuspid regurgitation signal. Estimated right atrial pressure is not included as the IVC was not seen. LEFT ATRIUM The left atrial cavity is normal in size. RIGHT ATRIUM Unable to reliably measure RA volume due to technical limitations. MITRAL VALVE The mitral valve leaflets are structurally normal. There is no mitral valve regurgitation. The pressure half time is 73 msec. The peak mitral E/A ratio is 1.43. The average mitral E/e' ratio is 7.2. The mitral flow deceleration time is 253 msec. TRICUSPID VALVE The tricuspid valve leaflets are structurally normal. There is trace tricuspid valve regurgitation. AORTIC VALVE The aortic valve cusps are structurally normal. There is no aortic valve regurgitation. Tricuspid aortic valve. The peak gradient is 8 mmHg (peak velocity = 140.1 cm/s). PULMONIC VALVE The pulmonic valve cusps are structurally normal. There is mild (1+) pulmonic valve regurgitation. AORTA The visualized aorta is normal in size. Measurements - Mid ascending aorta 3.6 cm. INTERATRIAL SEPTUM The interatrial septum is mobile. There is no evidence of intracardiac shunting as detected by Doppler. PERICARDIUM There is no pericardial effusion. CONCLUSIONS: - Technically difficult exam due to suboptimal positioning and body habitus. - Exam indication: Pre op clearance/Rule out effusion - The left ventricle is normal in size. There is moderate concentric left ventricular hypertrophy. Left ventricular systolic function is normal. EF = 55 5% (2D 4-ch.) Normal left ventricular diastolic function. - The right ventricle is normal in size. Right ventricular systolic function is normal. - There are no significant valvular abnormalities. - The patient has not had a prior CC echocardiographic exam for comparison. * * * Final * * * [facility] : [id number] HISTORY PHYSICAL Observed: 10/08/2024 10:42 AM Status: COMPLE[facility]ED [id number] Author: DANIEL DIOP APRN.MEAT CUTTER Service: ? Author Type: Nurse Practitioner Type: H&P Filed: 10/15/2024 10:53 Note Text: [facility] HISTORY AND PHYSICAL EXAMINATION SERVICE DATE: 10/08/2024 SERVICE TIME: 10:50 AM PRIMARY CARE PHYSICIAN: Lang Peres DO Assessment Patient has the following medical conditions which may affect monie-operative course: Paraplegia (HCC) Assessment: 2/2 acute spinal thrombosis, wheelchair bound, resident at [facility] Type 2 diabetes mellitus with polyneuropathy (HCC) Assessment: IDDM, most recent labs requested from [facility], most recent A1c 05/2024 6.9 scanned into epic Acute pericardial effusion (HCC) Assessment: hx, moderate 10/2022, limited echo completed 11/2022 that was difficult to interpret for pericardial effusion, new echo ordered Hyperlipidemia Assessment: c/w statin Essential hypertension, benign Assessment: controlled on rx Last 14 BP Last 14 Encounter BP Readings: Date: BP: 10/08/2024 114/76 06/15/2024 143/85 03/18/2024 226/130[Dr. Ovalle aware in to see patient[ 02/14/2024 155/62 10/22/2023 120/78 04/23/2023 130/80 10/08/2022 140/81 09/05/2022 126/58 07/02/2022 108/42[RN Notified[ 05/07/2022 146/69 04/16/2022 144/71 04/09/2022 90/59 04/02/2022 141/73 03/26/2022 192/102 GERD (gastroesophageal reflux disease) Assessment: controlled on rx ESRD on dialysis (HCC) Assessment: status failed kidney transplant back on IHD 2022 via AVF M,W,F at [facility] in [place], most recent labs requested from [facility] Anemia Assessment: hx, receives epoetin jacki 3x/week at dialysis, most recent labs requested Hemoglobin Date Value 06/17/2024 9.6 g/dL 11/27/2021 11.1 G/DL Hematocrit (%) Date Value 06/17/2024 31.9 11/27/2021 35.0 WBC Date Value 06/17/2024 5.76 k/uL 11/27/2021 8.0 K/CUMM Ulcer of toe of right foot, limited to breakdown of skin ([facility]) [facility] Pressure ulcer of sacral region, stage 2 (HCC) Assessment: s/p diverting colostomy 02/2024 by [facility]S. Pressure ulcer of ischium, left, stage IV (HCC) Assessment: s/p diverting colostomy 02/2021 by CRS. Neurogenic bladder Assessment: s/p chronic hurst History of pulmonary embolism Assessment: 10/2022, daily Eliquis Hx of left BKA (HCC) Assessment: 2/2 osteomyelitis Obesity (BMI 30-39.9) Assessment: Body mass index is 38.38 kg/m?. Thrombocytopenia Assessment: last platelets received 118 05/2024 scanned into [employer], more recent labs from dialysis center requested ANESTHESIA FINDINGS: Intubation History: No history of difficult intubation Significant Anesthesia Considerations: none Airway History: No history of difficult airway Franco Activity Status Index: METS: DASI Score: 0 Patient is totally dependent. Clinical Frailty Scale: 7. Severely frail STOP-Bang Score: Snores loudly Has or is being treated for high blood pressure BMI greater than 35 kg/m2 Has a large neck Male patient Denies feeling tired, fatigued, or sleepy during the daytime Has not been observed to stop breathing or choking/gasping during sleep Patient 50 years old or younger STOP-Bang Score: 5 [id number] Score: CHF history: Yes Hypertension history: Yes Stroke/TIA/thromboembolism history: No Diabetes history: Yes [id number] Score: ARISCAT Score: Age: <=50 Preoperative SpO2: >=96% Respiratory infection in the last month: No Preoperative anemia: Yes Surgical incision: peripheral Duration of surgery: 2-3 hrs Emergency procedure: No ARISCAT Score: 27 I - PHYSICAL EVALUATION AIRWAY Patient intubated: No. Tracheostomy tube not present Mallampati: III. TM distance: >3 FB. Neck ROM: full ROM without neurological symptoms. Mouth opening: adequate. Short neck: no. Thick neck: yes Kwon present: yes Lip Bite Test: I Microretrognathia/Micronagthia/Recessed Chin: No DENTAL Dental findings: teeth intact. II - ANESTHESIA PLAN Anesthetic Plan: other Beta Walt Monitoring Plan Post Procedure Analgesic Plan Prepared for Surgery: optimally prepared for surgery, pending [see comment]. Will update echo scheduled 10/15/2024 Most recent labs requested from SNF/dialysis center CONSULTS: Patient does not require consults for optimization at this time Planned Anesthetic: other anesthesia choice The Following Tests/Procedures Have Been Initiated: No orders of the defined types were placed in this encounter. REASON FOR VISIT: China Guillen is a 39 year old male who is scheduled for Procedure(s): VITRECTOMY MECHANICAL 23 G PARS PLANA APPROACH (Right) EXAM UNDER ANESTHESIA EYE COMPLETE (Right) PHACOEMULSIFICATION CATARACT ANTERIOR IMPLANT INTRAOCULAR LENS W/O ENDOSCOPIC CYCLOPHOTOCOAGULATION (Right) at the request of Munir Martinez MD for consultation. My final recommendation will be communicated back to the requesting physician by way of shared medical record or letter. Subjective The patient has the following: COVID-19 Immunization Status Current Care Gaps Covid-19 Vaccine (2 - Pfizer risk series) Overdue since 08/15/2023 07/25/2023 Imm Admin: COVID-19 vaccine, age 12+ yr (PFIZER-BIONTECH COMIRNATY) CHIEF COMPLAINT: Pre-op exam HPI: China Guillen is a 39 year old seen for PAC due to scheduled above surgery because of cataracts/?retinal detachment. 09/29/2024, Dr. Del Real's 1. DM with PDR OU - Prior documented macular edema and VH from outside records OD - Prior RD repair with SO 2019 per patient OS. - VA stable at LP OD, NLP OS - Visual hallucinations possibly component of rosalba bonnet. - IOP 13/15 - B scan diagnostic testing shows thickened PVD, possible small inferior TRD, no RRD - No view to the back of the eye - Recommend cataract surgery OD with Dr. Swanson to improve view, followed by repeat retina eval to determine need for retina intervention. - Plan for retina back-up at time of surgery. With EUA and possible PPV/EL/MP/gas/ooil OD if needed 2. 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 Swanson 04/30, recommended cataract surgery - Plan for combined surgery as above - Aim plano - Needs IOL calcs REVIEW OF SYSTEMS: General: No weight loss, malaise or fevers. Neurological: No history of TIA's, stroke, GAS STATION SUPERVISOR tumor, impaired sensorium, hemiplegia, paraplegia or quadraplegia. No neurological symptoms or problems. Respiratory: Positive for: home oxygen, obstructive sleep apnea and CPAP/BiPAP compliant. Patient is on 3-4 liter(s) of home O2. Negative for: asthma, COPD, pneumonia within 6 weeks, tobacco use and URI < 2 weeks. Cardiovascular: Positive for: anticoagulation therapy, CHF, DVT/PE, hypertension and murmur/valvular heart disease Negative for: abdominal aortic aneurysm, AICD/PPM, angina, arrhythmia, atrial fibrillation, CAD, chest pain, congenital heart defect, hyperlipidemia, recent TX, PTCA, PVD, open heart surgery and valve surgery. GI: Positive for: GERD Negative for: abdominal pain, dysphagia, hepatitis, irritable bowel syndrome, inflammatory bowel disease, liver disease, nausea, vomiting and ETOH >2 drinks/day. : +hx kidney transplant, following [facility] transplant team Positive for: on dialysis and renal failure. The dialysis type is HD (MWF, [facility]). Patient's renal failure is chronic. Negative for: nephrolithiasis and urinary tract infection. Endocrine: Positive for: diabetes mellitus and hypothyroidism (on rx). Patient's diabetes mellitus is controlled by insulin. Hematology: Positive for: bruises/bleeds easily and chronic anti-coagulation/platelet meds. Patient is on anti-coagulation/platelet medication(s): DOAC. Negative for: anemia and transfusion of at least 4 units within 72 hours prior to surgery. Oncology: No history of CA metastasis, chemo within 30 days, or radiotherapy within 90 days. No history of oncological symptoms or problems. Psych: Positive for: anxiety (on rx) and depression (on rx). Musculoskeletal: +left BKA +right 3 toe amputations Positive for: joint pain (shoulder). Implanted Devices: No implanted devices. PAST MEDICAL HISTORY Diagnosis Date Acquired absence of left leg above knee ([facility]) Acquired absence of other right toe(s) ([facility]) Acute infarction of spinal cord ([facility]) Acute kidney failure, unspecified Acute osteomyelitis of left ankle or foot ([facility]) Acute pulmonary edema ([facility]) Anemia Anemia in chronic kidney disease (CKD) Body mass index 40.0-44.9, adult ([facility]) Cerebral infarction due to unspecified occlusion or stenosis of unspecified cerebral artery ([facility]) Chronic kidney disease (CKD), stage IV (severe) ([facility]) Chronic systolic (congestive) heart failure ([facility]) Congestive heart failure (CHF) ([facility]) Dependence on renal dialysis Depression Diabetes mellitus with chronic kidney disease ([facility]) End stage renal disease ([facility]) ESRD (end stage renal disease) ([facility]) Essential hypertension GERD (gastroesophageal reflux disease) Heart failure ([facility]) HLD (hyperlipidemia) Hyperkalemia Hyperlipidemia Hypertension Hypertensive heart and chronic kidney disease with heart failure and stage 1 through stage 4 chronic kidney disease, or chronic kidney disease (HCC) Hypo-osmolality and hyponatremia Hypomagnesemia Hypothyroidism Insomnia Insomnia Kidney transplant failure ([facility]) Kidney transplant status ([facility]) 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 ([facility]) Major depressive disorder, recurrent, unspecified Mood disorder Morbid (severe) obesity due to excess calories ([facility]) Muscle weakness Neurogenic bowel Neurogenic bowel, not elsewhere classified Neuromuscular dysfunction of bladder Neuromuscular dysfunction of bladder Neuropathy Non-pressure chronic ulcer of other part of unspecified foot with unspecified severity ([facility]) Obstructive sleep apnea Osteomyelitis of vertebra, sacral and sacrococcygeal region ([facility]) Other disorders of phosphorus metabolism Other idiopathic peripheral autonomic neuropathy Other pericardial effusion (noninflammatory) ([facility]) Other pulmonary embolism without acute cor pulmonale, unspecified chronicity ([facility]) Paraplegia ([facility]) Paraplegia, incomplete ([facility]) PDR (proliferative diabetic retinopathy) ([facility]) Penile erosion 04/23/2023 Pressure ulcer of ischium, stage 4 ([facility]) Pressure ulcer of left buttock, unspecified stage 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 Right foot ulcer ([facility]) Sepsis ([facility]) T1DM (type 1 diabetes mellitus) ([facility]) Total, mature age-related cataract Type 2 diabetes ([facility]) Unspecified protein-calorie malnutrition ([facility]) UTI (urinary tract infection) Vitamin D deficiency PAST SURGICAL HISTORY Procedure Laterality Date COLOSTOMY TRANSPLANTATION OF KIDNEY WOUND DEBRIDEMENT HX 4 times of the wound FAMILY HISTORY Problem Relation Age of Onset No Known Problems Father Diabetes Mother No Known Problems Sister No Known Problems Brother No Known Problems Maternal Grandmother No Known Problems Maternal Grandfather No Known Problems Paternal Grandmother Cancer Paternal Grandfather Cancer Other Glaucoma Other Cataract Other Detached Retina No Family History Macular Degen No Family History Blindness No Family History Hypertension No Family History Heart No Family History Social History Tobacco Use Smoking status: Never Smokeless tobacco: Never Vaping Use Vaping status: Never Used Substance Use Topics Alcohol use: Never Drug use: Never Prior to Admission medications as of 10/12/24 1203 Medication Sig Last Dose Taking calcitriol (ROCALTROL) 0.5 mcg capsule Take by mouth. Yes DULoxetine (CYMBALTA) 30 mg capsule Yes gabapentin (NEURONTIN) 100 mg capsule Yes prednisoLONE acetate (PRED FORTE) 1 % ophthalmic suspension Use 1 Drop in the right eye as directed. FOUR (4) TIMES FOR 1 WEEK, THREE (3) TIMES FOR 1 WEEK, THEN TW0 (2) TIMES A DAY FOR 1 WEEK, THEN ONE (1) TIME DAILY FOR 1 WEEK AND THEN STOP Yes ofloxacin (OCUFLOX) 0.3 % ophthalmic solution Use 1 Drop in the right eye four times daily. Yes cyclopentolate (CYCLOGYL) 1 % ophthalmic solution Use 1 Drop in the right eye two times a day. Yes hydrOXYzine HCl (ATARAX) 25 mg tablet Take 1 tablet by mouth every 6 hours as needed for itching/rash. Yes sevelamer carbonate (RENVELA) 800 mg tablet Take 3 tablets by mouth three times a day with meals. Yes cloNIDine HCl (CATAPRES) 0.2 mg tablet Take 1 tablet by mouth two times a day. Yes tacrolimus IR (PROGRAF) 1 mg capsule Take 2 capsules by mouth two times a day. Yes acetaminophen (TYLENOL) 325 mg tablet Take 650 mg by mouth every 4 hours as needed for pain or fever (specify temp.). Yes diphenhydrAMINE-Zinc Acetate (ANTI-ITCH,DIPHENHYD, WITH ZINC) cream Apply to affected area three times a day as needed for itching/rash. Yes menthol (BIOFREEZE, MENTHOL,) 4 % topical gel Apply to bilateral shoulders ever morning and at bedtime Yes Ciclopirox (CICLODAN) 8 % solution Apply to affected area daily at bedtime. (For nail fungus) Yes guaiFENesin (ROBITUSSIN) 100 mg/5 mL syrup Take 10 mL by mouth every 4 hours as needed for cough. Yes nystatin (MYCOSTATIN) powder Apply to groin and abdominal folds topically every 12 hours as needed for skin irritation Yes b complex, c, folic acid 1 mg renal vitamins (RENAL CAPS) 1 mg capsule Take 1 capsule by mouth once daily. Yes Ascorbic Acid 500 mg chew Take 500 mg by mouth once daily. Yes OXYGEN, HOME THERAPY, 2 L/min by Nasal Cannula route as directed. To keep sats >% - LPM via NC to maintain pulse ox above 92% as needed if patient has shortness of breath or s/sx of Yes melatonin 3 mg tablet Take 9 mg by mouth daily at bedtime. Yes apixaban (ELIQUIS) 2.5 mg tab(s) Take 2.5 mg by mouth two times a day. Yes glucagon (GLUCAGEN) 1 mg injection Inject 1 mg intramuscularly as needed. For symptomatic hypoglycemia not responsive to oral intervention. Notify MEAT CUTTER/MD Yes LANTUS U-100 INSULIN 100 unit/mL injection Inject 8 Units subcutaneously every afternoon. Yes dextrose (GLUCOSE GEL ORAL) Give one dose by mouth as needed for hypoglycemic episode Yes sevelamer (RENAGEL) 800 mg tablet Take 2,400 mg by mouth three times a day. Yes senna-docusate (SENNA PLUS) 8.6-50 mg per tablet Take 1 tablet by mouth two times a day. Yes polyethylene glycol 3350 17 gram packet Take 1 Packet by mouth once daily as needed. Dissolve dose in 4 - 8 ounces of liquid and take as directed. Yes ondansetron (ZOFRAN) 4 mg tablet Take 4 mg by mouth every 8 hours as needed for nausea/vomiting. 4 MG by mouth every six hours as needed Yes hydrALAZINE (APRESOLINE) 50 mg tablet Take 50 mg by mouth three times a day. Yes pantoprazole DR (PROTONIX) 40 mg tablet Take 40 mg by mouth once daily. Yes carvedilol (COREG) 25 mg tablet Take 50 mg by mouth two times a day with meals. Yes escitalopram oxalate (LEXAPRO) 20 mg tablet Take 20 mg by mouth once daily. Yes insulin lispro (ADMELOG) 100 unit/mL injection Inject 5 Units subcutaneously three times a day before meals. In addition to sliding scale if B-200 = 2 units 201-250 = 3 units 251-300 = 4 units 301-350 = 5 units 351-400 = 6 units 401-450 = 7 untis Yes levothyroxine (SYNTHROID) 150 mcg tablet Take 150 mcg by mouth daily before breakfast. Yes atorvastatin (LIPITOR) 40 mg tablet Take 40 mg by mouth daily at bedtime. Yes epoetin jacki 10,000 unit/mL injection Inject 1 mL subcutaneously 3 Times weekly with dialysis. No medication comments found. ALLERGIES No Known Allergies Objective PHYSICAL EXAM: General: alert and oriented (x3) and obese. Pertinent negatives noted - not distressed. Wheelchair bound, flat affect. Skin: normal color, no rash or lesions. HEENT: EOM intact and pupils equal round. Pertinent negatives noted - no carotid bruit. Cardiovascular: regular rate and rhythm, normal S1 and S2, no rub, murmurs, or gallop. Respiratory: normal breath sounds, no wheezes or crackles. No chest wall deformity or tenderness. Abdomen: soft. Pertinent negatives noted - not tender. +ostomy intact. Extremities: +Right BKA +Left foot s/p toe amputations. Neurological: +normal cognition, but slow to respond. PAIN ASSESSMENT: VITALS: BP 114/76 Pulse 70 Temp (Src) 98.2 (Temporal) Resp 16 Ht 6' 0 (1.83m) Wt 283 lb (128.4kg) SpO2 99% BMI 38.37 kg/(m2). Diagnostic tests reviewed for today's visit: Lab Value Units Date High Low HB 9.6 g/dL 06/17/2024 17.0 13.0 HCT 31.9 % 06/17/2024 51.0 39.0 WBC 5.76 k/uL 06/17/2024 11.00 3.70 PLT 151 k/uL 06/17/2024 400 150 NA 139 mmol/L 06/17/2024 144 136 K 5.0 mmol/L 06/17/2024 5.1 3.7 GLUC 201 mg/dL 06/17/2024 99 74 BUN 44 mg/dL 06/17/2024 24 9 CREAT 6.66 mg/dL 06/17/2024 1.22 0.73 PTSEC No results within date range. INR No results within date range. APTT No results within date range. ALT No results within date range. AST No results within date range. TBILI No results within date range. TSH No results within date range. Lab Value Units Date High Low HCGQT No results within date range. UHCG No results within date range. HCG, BODY* No results within date range. Lab Value Units Date High Low ABORHD No results within date range. ABSCREEN No results within date range. No results found for: HBA1C Recent Results (from the past 8760 hours) ECG COMPLETE Collection Time: 06/15/24 12:20 PM Result Value Ventricular Rate 80 Atrial Rate 80 P-R Interval 160 QRS Duration 86 QT Interval 404 QTC Calculation (Bazett) 465 Calculated P [place]cher 21 Calculated R [place]cher 26 Calculated T [place] Pitcher 46 Impression NORMAL SINUS RHYTHM NORMAL ECG Recent Results (from the past 90324 hours) ECHO Collection Time: 10/11/22 1:03 PM Impression CONCLUSIONS: - Exam indication: Effusion - The left ventricle is normal in size. Left ventricular systolic function is normal. EF = 55 ? 5% (visual est.) - The right ventricle is normal in size. Right ventricular systolic function is normal. - The left atrial cavity is moderately dilated. - There is a moderate pericardial effusion adjacent to the left ventricle measuring 1.9 cm and a small pericardial effusion adjacent to the right ventricle measuring 1.0 cm. The inferior vena cava appears dilated measuring 2.5 cm. The vessel decreases greater than 50 percent with inspiration. - The patient has not had a prior CC echocardiographic exam for comparison. * * * Final * * * Instructions Given to Patient: Instructions located in the after visit summary. Patient given verbal and written preop instructions and voices comprehension and compliance. SIGNATURE: Daniel Diop APRN.CNP PATIENT NAME: China Guillen DATE: October 08, 2024 TIME: 10:42 AM PAGER/CONTACT #: [id number] Observed: 10/08/2024 12:00 AM Status: COMPLETED Source: [facility] Telephone (MARIAAO) CHINA GUILLEN ([id number]) 1985 M Date Time Provider Department 10/08/24 DANIEL DIOP During your visit today, we recorded the following information about you: Daniel Diop APRN.CNP 10/08/2024 11:17 AM Signed Please request most recent labs A1c, CBC, CMP from [facility]. DOS 10/28/2024 Daniel Diop APRN.CNP 10/08/2024 12:51 PM Signed Also contact SNF ask if he has had any recent echo's since 2022, or following cardiology, if not this will need updated. Wilman Yeh LPN 10/08/2024 1:30 PM Signed Phoned [facility], spoke with nurse on the [address]. Advised nurse that I will be faxing a request for medical information for upcoming surgery on 10/28/24. . Fax sent requesting CMP,CBC,Hem A1C and ECHO since 2022, DOS 10/28/24 Awaiting information DALILA Bird Jessica, LPN 10/09/2024 7:47 AM Signed Received fax back with labs. They state they do not have any Echos on file. Scanned labs into [facility] through Onbase scanning. JazminDALILA Mckeon Jillian S, APRN.KAREL 10/09/2024 10:11 AM Signed Pt will need to update echo then he had a moderate pericardial effusion in 2022. Echo order placed, please assist with scheduling prior to 10/28/2024. Jazmin Gutierrez LPN 10/09/2024 11:27 AM Signed Please assist patient/fci [phone] in scheduling Echo prior to surgery 10/28/24. DALILA Newell Stephanie 10/09/2024 2:37 PM Signed Left message for [place] postal transportation clerk, to call back to schedule. Jazmin Hernandez LPN 10/14/2024 8:43 AM Signed Patient scheduled 10/15/24. DALILA Newell Jillian S, APRN.KAREL 10/15/2024 10:47 AM Signed Lab we received were from late last year, can we contact his dialysis center and ask for more recent labs within the last month if they have them. Thank you Wilman Yeh LPN 10/15/2024 2:42 PM Signed Faxed request to [facility] for recent labs for upcoming surgery. Their office is closed at this time. Awaiting results. ECHO completed today here at [facility] just waiting on results. DALILA Bird Jessica, LPN 10/16/2024 1:36 PM Signed Received labs, scanned into Epic through Onbase scanning. DALILA Newell Jillian S, APRN.CNP 11/10/2024 2:34 PM Signed Can we request most recent labs from his dialysis center here in [place]. His HANDP and he was seen again to update. DOS now 12/02/2024 Jazmin Gutierrez LPN 11/11/2024 12:26 PM Signed Progress Notes Wilman Yeh LPN (LICENSED NURSE) Fax sent to [facility] for most recent labs to review for upcoming surgery. DALILA Bird Jessica, LPN 11/18/2024 12:46 PM Signed This was re faxed yesterday. DALILA Newell Jessica, LPN 11/20/2024 2:27 PM Signed Called and spoke with staff member at [facility]. They state they have faxed them twice. Fax number they had was incorrect. They will fax to our correct fax number. Jazmin GutierrezDALILA Jazmin Gutierrez DALILA 11/20/2024 2:55 PM Signed Received labs. Scanned into [employer] through Onbase scanning. Jazminvikas Gutierrez LPN Allergies As of Date: 10/08/2024 (No Known Allergies) Date Reviewed: 10/08/2024 Reviewed by: Daniel Diop APRN.MEAT CUTTER - Fully Assessed Reason for Visit: Request Outside Medical Records [[id number]] Primary Visit Diagnosis:Pericardial effusion (HCC) [I31.39] Order(s):ECHO [184420] Order #: [id number]: 1 FUTURE Prescriptions as of 11/20/2024 - calcitriol (ROCALTROL) 0.5 mcg capsule Take by mouth. - DULoxetine (CYMBALTA) 30 mg capsule - gabapentin (NEURONTIN) 100 mg capsule - prednisoLONE acetate (PRED FORTE) 1 % ophthalmic suspension Use 1 Drop in the right eye as directed. FOUR (4) TIMES FOR 1 WEEK, THREE (3) TIMES FOR 1 WEEK, THEN TW0 (2) TIMES A DAY FOR 1 WEEK, THEN ONE (1) TIME DAILY FOR 1 WEEK AND THEN STOP - ofloxacin (OCUFLOX) 0.3 % ophthalmic solution Use 1 Drop in the right eye four times daily. - cyclopentolate (CYCLOGYL) 1 % ophthalmic solution Use 1 Drop in the right eye two times a day. - hydrOXYzine HCl (ATARAX) 25 mg tablet Take 1 tablet by mouth every 6 hours as needed for itching/rash. - sevelamer carbonate (RENVELA) 800 mg tablet Take 3 tablets by mouth three times a day with meals. - cloNIDine HCl (CATAPRES) 0.2 mg tablet Take 1 tablet by mouth two times a day. - tacrolimus IR (PROGRAF) 1 mg capsule Take 2 capsules by mouth two times a day. - acetaminophen (TYLENOL) 325 mg tablet Take 650 mg by mouth every 4 hours as needed for pain or fever (specify temp.). - diphenhydrAMINE-Zinc Acetate (ANTI-ITCH,DIPHENHYD, WITH ZINC) cream Apply to affected area three times a day as needed for itching/rash. - menthol (BIOFREEZE, MENTHOL,) 4 % topical gel Apply to bilateral shoulders ever morning and at bedtime - Ciclopirox (CICLODAN) 8 % solution Apply to affected area daily at bedtime. (For nail fungus) - guaiFENesin (ROBITUSSIN) 100 mg/5 mL syrup Take 10 mL by mouth every 4 hours as needed for cough. - nystatin (MYCOSTATIN) powder Apply to groin and abdominal folds topically every 12 hours as needed for skin irritation - b complex, c, folic acid 1 mg renal vitamins (RENAL CAPS) 1 mg capsule Take 1 capsule by mouth once daily. - Ascorbic Acid 500 mg chew Take 500 mg by mouth once daily. - OXYGEN, HOME THERAPY, 2 L/min by Nasal Cannula route as directed. To keep sats >% - LPM via NC to maintain pulse ox above 92% as needed if patient has shortness of breath or s/sx of - melatonin 3 mg tablet Take 9 mg by mouth daily at bedtime. - apixaban (ELIQUIS) 2.5 mg tab(s) Take 2.5 mg by mouth two times a day. - glucagon (GLUCAGEN) 1 mg injection Inject 1 mg intramuscularly as needed. For symptomatic hypoglycemia not responsive to oral intervention. Notify MEAT CUTTER/MD - LANTUS U-100 INSULIN 100 unit/mL injection Inject 8 Units subcutaneously every afternoon. - dextrose (GLUCOSE GEL ORAL) Give one dose by mouth as needed for hypoglycemic episode - sevelamer (RENAGEL) 800 mg tablet Take 2,400 mg by mouth three times a day. - senna-docusate (SENNA PLUS) 8.6-50 mg per tablet Take 1 tablet by mouth two times a day. - polyethylene glycol 3350 17 gram packet Take 1 Packet by mouth once daily as needed. Dissolve dose in 4 - 8 ounces of liquid and take as directed. - epoetin jacki 10,000 unit/mL injection Inject 1 mL subcutaneously 3 Times weekly with dialysis. - ondansetron (ZOFRAN) 4 mg tablet Take 4 mg by mouth every 8 hours as needed for nausea/vomiting. 4 MG by mouth every six hours as needed - hydrALAZINE (APRESOLINE) 50 mg tablet Take 50 mg by mouth three times a day. - pantoprazole DR (PROTONIX) 40 mg tablet Take 40 mg by mouth once daily. - carvedilol (COREG) 25 mg tablet Take 50 mg by mouth two times a day with meals. - escitalopram oxalate (LEXAPRO) 20 mg tablet Take 20 mg by mouth once daily. - insulin lispro (ADMELOG) 100 unit/mL injection Inject 5 Units subcutaneously three times a day before meals. In addition to sliding scale if B-200 = 2 units 201-250 = 3 units 251-300 = 4 units 301-350 = 5 units 351-400 = 6 units 401-450 = 7 untis - levothyroxine (SYNTHROID) 150 mcg tablet Take 150 mcg by mouth daily before breakfast. - atorvastatin (LIPITOR) 40 mg tablet Take 40 mg by mouth daily at bedtime. Facility-Administered Medications as of 11/20/2024 - hydrALAZINE injection (APRESOLINE) Problem List As Of Date 10/08/2024 Noted Resolved Pressure ulcer of ischium, left, stage IV (HCC)*02/12/2022 Obesity (BMI 30-39.9) [E66.9] 02/12/2022 Type 2 diabetes mellitus with polyneuropathy (H*02/12/2022 Pressure ulcer of sacral region, stage 2 (HCC) *02/12/2022 Cellulitis of left thigh [L03.116] 02/12/2022 VRE (vancomycin resistant enterococcus) culture*02/12/2022 Acute infarction of spinal cord (HCC) [G95.11] 04/17/2022 Mood disorder (HCC) [F39] 04/17/2022 Paraplegia (HCC) [G82.20] 04/17/2022 Sepsis (HCC) [A41.9] 04/17/2022 12/14/2022 Type 2 diabetes (HCC) [E11.9] 04/17/2022 Neurogenic bowel [K59.2] 04/17/2022 GERD (gastroesophageal reflux disease) [K21.9] 04/17/2022 Depression [F32.A] 04/17/2022 Anemia [D64.9] 04/17/2022 Kidney transplant status [Z94.0] 04/17/2022 Hyperlipidemia [E78.5] 04/17/2022 Cerebral infarction due to unspecified occlusio*04/17/2022 Obesity, Class I, BMI 30-34.9 [E66.811] 04/17/2022 Fever due to infection [B99.9] 07/02/2022 Severe sepsis (HCC) [A41.9, R65.20] 09/05/2022 09/13/2022 Acute on chronic diastolic CHF (congestive hear*10/08/2022 Obesity, Class III, BMI >= 40 [E66.813] 10/08/2022 Acute renal failure superimposed on chronic kid*10/11/2022 Hyperkalemia [E87.5] 06/15/2024 06/17/2024 ESRD on dialysis (HCC) [N18.6, Z99.2] 06/16/2024 Dermatitis associated with moisture [L30.8] 06/16/2024 Wound, open, abdominal wall, anterior [S31.109A]06/16/2024 Ulcer of toe of right foot, limited to breakdow*06/16/2024 Hypertensive urgency [I16.0] 06/16/2024 06/17/2024 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] 06/17/2024 Immunosuppressive management encounter followin*06/17/2024 Type 1 diabetes mellitus with proliferative ret*07/28/2024 Type 1 diabetes mellitus with proliferative judie*07/28/2024 Total, mature senile cataract [H25.89] 07/28/2024 Encounter Status:Closed by JAZMIN GUTIERREZ on 10/16/24 PROGRESS Observed: 09/29/2024 2:10 PM Status: COMPLETED Source: [facility] ID: [id number] Author: MUNIR BURTON MD Service: ? Author Type: Physician Type: Progress Notes Filed: 09/29/2024 16:09 Note Text: The documentation for the note below was completed in part by Pennie Rondon acting as a scribe for Munir Burton MD. 09/29/2024 2:10 PM. Scribe Attestation: By signing my name below, I, Pennie Rondon, attest that the documentation in part for the note below and the encounter was completed in part by Pennie Rondon acting as a scribe for Munir Burton MD. Electronically Signed: Pennie Rondon, Scribe. September 29, 2024 2:10 PM. All problems with bold in text below addressed at this visit with patient 1. DM with PDR OU - Prior documented macular edema and VH from outside records OD - Prior RD repair with SO 2019 per patient OS. - VA stable at LP OD, NLP OS - Visual hallucinations possibly component of rosalba bonnet. - IOP 13/15 - B scan diagnostic testing shows thickened PVD, possible small inferior TRD, no RRD - No view to the back of the eye - Recommend cataract surgery OD with Dr. Swanson to improve view, followed by repeat retina eval to determine need for retina intervention. - Plan for retina back-up at time of surgery. With EUA and possible PPV/EL/MP/gas/ooil OD if needed 2. 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 Swanson 04/30, recommended cataract surgery - Plan for combined surgery as above - Aim plano - Needs IOL calcs I personally performed the services described in this documentation. All medical record entries made by the scribe were at my direction and in my presence. I have reviewed the chart and discharge instructions (if applicable) and agree that the record reflects my personal performance and is accurate and complete. I have confirmed and edited as necessary the relevant ophthalmic history, ROS, and the neuro exam findings as obtained by others. I have seen and examined China Guillen. I have discussed the case and the management of this patient's care with the Resident/Fellow, if applicable. I also have reviewed and agree with the assessment and plan as stated above and agree with all of its relevant components. PROGRESS Observed: 07/28/2024 3:07 PM Status: COMPLETED Source: [facility] ID: [id number] Author: MUNIR BURTON MD Service: ? Author Type: Physician Type: Progress Notes Filed: 07/28/2024 15:45 Note Text: Patient here for retinal evaluation. States he is seeing pictures that move around even when his head is stationary. States he saw snakes and cartoon characters yesterday evening. All problems with bold in text below addressed at this visit with patient 1. DM with PDR OU - Prior documented macular edema and VH from outside records OD - Prior RD repair with SO 2019 per patient OS. - VA stable at LP OD, NLP OS - Visual hallucinations possibly component of rosalba flora. - IOP wnl - B scan with vit opacities and thickened PVD OD, SO fill OS. - Exam without view today to assess retina status. - Recommend cataract surgery OD with Dr. Swanson to improve view, followed by repeat retina eval to determine need for retina intervention. -F/U 3-4 months 2. 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 Swanson 04/30, recommended cataract surgery - F/U with Dr. Swanson. I have confirmed and edited as necessary the relevant HPI, ophthalmic history, ROS, and the neuro exam findings as obtained by others. I have seen and examined China Moscosoodgrass. I have discussed the case and the management of this patient's care with the Resident/Fellow, if applicable. I also have reviewed and agree with the assessment and plan as stated above and agree with all of its relevant components. I personally performed the services described in this documentation. All medical record entries made by the scribe were at my direction and in my presence. I have reviewed the chart and discharge instructions (if applicable) and agree that the record reflects my personal performance and is accurate and complete. I have confirmed and edited as necessary the relevant ophthalmic history, ROS, and the neuro exam findings as obtained by others. I have seen and examined China Guillen. I have discussed the case and the management of this patient's care with the Resident/Fellow, if applicable. I also have reviewed and agree with the assessment and plan as stated above and agree with all of its relevant components. CNCO Observed: 06/18/2024 12:00 AM Status: COMPLETED Source: [facility] Letter Text ALLIED HEALTH Observed: 06/17/2024 4:40 PM Status: COMPLETED Source: [facility] HNO ID: [id number] Author: SU CORREA RN Service: Wound/Ostomy Author Type: Registered Nurse Type: Allied Health Filed: 06/17/2024 16:46 Note Text: ET/WOCN Nursing Consult Topic: ET/WOCN Consultation Note Purpose of Visit: pouch change Outcome: Pt has colostomy made an OSH. Pt say his SNF changes his pouch he usually get a 7 days seal. He could not recall what is his home system. Pouch changed 2 sets of supplies left at bedside Next Scheduled Visit: 06/24/24 weekly pouch change Assessment: Stoma Type: colostomy Diameter: 1 3/8 when rounded Location: LLQ Protrusion: Flush Mucosal Condition and Color: Red and [place] and moist Mucocutaneous Junction: Intact , hyperpigmentation circumferentially around the stoma Peristomal Skin: Clear and intact and Other: Peristomal Contour: Rounded Supportive Tissue: Semisoft Character of Output: mushy brown stool Emptying Frequency per Day: per nursing Pouching System Removed: HNI 2 3/4 flat, drainable Current Wear Time: unknown Pouching System Evaluation: Undermining Recommendations: Skin Care: 1. Use ConvaTec Sensi Care No Sting Adhesive Remover wipes (#283180) to gently release the worn pouch from the skin. 2. Apply ConvaTec Stomahesive powder (#44655) to denuded/irritated skin as needed with each pouch change until healed. [place] off loose powder from intact skin prior to pouching. Pouching System Applied: HNI 2 3/4 CONVEX drainable Wear Time Goal: 3-4 days Time Increment: 45 minutes MAMADOU MoiseN, RN, CWOCN For non-emergent WO Nursing patient care needs - Please place a consult via Epic under ostomy. WOC Nurse Available Hours: M-F: [phone]; Weekends AND Holidays: [phone] For emergent WO Nursing patient care needs - Page #[phone], during available hours only. NURSING PROG Observed: 06/17/2024 3:05 PM Status: COMPLETED Source: [facility] HNO ID: [id number] Author: VELIA SALAS RN Service: Nursing Author Type: Registered Nurse Type: Nursing Progress Note Filed: 06/17/2024 15:06 Note Text: Report called to Randa at [facility]. XR FOOT 3V AP/LAT/OBL RT Observed: 06/17 1:48 PM Status: F Source: [facility] * * *Final Report* * * DATE OF EXAM: Jun 17 2024 1:48PM MARIAM [id number] - XR FOOT 3V AP/LAT/OBL RT / PROCEDURE REASON: Foot swelling, diabetic, osteomyelitis suspected * * * * Physician Interpretation * * * * EXAMINATION: XR FOOT 3V AP/LAT/OBL RT CLINICAL INFORMATION ( PROVIDED BY ORDERING CLINICIAN) : Foot swelling, diabetic, osteomyelitis suspected TECHNIQUE: XR FOOT 3V AP/LAT/OBL RT COMPARISON: None RESULT: IMPRESSION: Osseous structures are markedly demineralized. Postsurgical changes of fourth and fifth ray amputation at the level of the distal metatarsals. No acute appearing osseous erosion. Mild degenerative change at scattered remaining IP joints and the first MTP joint. Extensive vascular calcifications. Gold Miner Blasting: PSCB Transcribe Date/Time: Jun 17 2024 1:52P Dictated by : MIKE PERES MD This examination was interpreted and the report reviewed and electronically signed by: MIKE PERES MD on Jun 17 2024 1:54PM EST [id number] CONSULT PROG Observed: 06/17/2024 12:46 PM Status: COMPLETED Source: [facility] HNO ID: [id number] Author: LUIS A MOHAN PA-C Service: Nephrology Author Type: Physician Mineral Engineer Type: Consult Progress Note Filed: 06/17/2024 12:48 Note Text: Department of Kidney Medicine Medical Specialties [facility] NEPHROLOGY CONSULT SERVICE PROGRESS NOTE INTERVAL HISTORY: - hyperkalemia resolved - on HD again today, on MWF schedule - appreciate neph tx IS recs MEDICATIONS: Current Facility-Administered Medications Medication Dose Route Frequency carvedilol 50 mg tab(s) (COREG) 50 mg ORAL BID w MEALS cloNIDine HCl 0.2 mg tab(s) (CATAPRES) 0.2 mg ORAL BID hydrALAZINE 50 mg tab(s) (APRESOLINE) [address] TID [address] 40 mg tab(s) (PROTONIX) 40 mg ORAL DAILY levothyroxine 150 mcg (SYNTHROID) 150 mcg ORAL BEFORE BREAKFAST DAILY dextrose 15 gram/32 mL 15 g (TRUEPLUS) 15 g ORAL PRN Or glucagon 1 mg injection 1 mg INTRAMUSCULAR PRN Or dextrose 10% iv bolus 12.5 g INTRAVENOUS PRN insulin lispro injection (rapid acting) (ADMElog) SUBCUTANEOUS w MEALS tacrolimus IR 2 mg cap(s) (PROGRAF) 2 mg ORAL q 12 H 6a/6p hydrOXYzine HCl 25 mg tab(s) (ATARAX) 25 mg ORAL q 6 H PRN atorvastatin 40 mg tab(s) (LIPITOR) 40 mg ORAL AT BEDTIME escitalopram oxalate 20 mg tab(s) (LEXAPRO) 20 mg ORAL DAILY insulin glargine 8 Units pen (long acting) 8 Units SUBCUTANEOUS AT BEDTIME melatonin 9 mg tab(s) 9 mg ORAL AT BEDTIME b complex, c, folic acid 1 mg renal vitamins 1 capsule (NEPHROCAPS) 1 capsule ORAL DAILY sevelamer carbonate 2,400 mg tab(s) (RENVELA) 2,400 mg ORAL TID w MEALS ascorbic acid (vitamin C) 500 mg tab(s) (VITAMIN C) 500 mg ORAL DAILY oxyCODONE IR 5 mg tab(s) (ROXICODONE) 5 mg ORAL q 6 H PRN acetaminophen 650 mg tab(s) (TYLENOL) 650 mg ORAL q 4 H PRN Facility-Administered Medications Ordered in Other Encounters Medication Dose Route Frequency hydrALAZINE injection (APRESOLINE) INTRAVENOUS PRN ALLERGIES: Patient has no known allergies. PHYSICAL EXAM: BP 157/91 Pulse 71 Temp 36.4 ?C (97.5 ?F) (Oral) Resp 18 Ht 185.4 cm (6' 0.99) Wt 126 kg (277 lb 12.5 oz) SpO2 99% BMI 36.66 kg/m? No intake or output data in the 24 hours ending 06/17/24 1246 GENERAL: adult male, alert, in no acute distress, cooperative, lying in bed SKIN: Skin color, texture, turgor normal. No rashes or lesions. HEENT: normocephalic, atraumatic NECK: no JVD, masses or bruits LUNGS: clear to auscultation. Good diaphragmatic excursion and normal respiratory effort. CARDIAC: RRR S1S2 ABDOMEN: soft, non-tender, non-distended. Normal bowel sounds. GENITOURINARY: no Hurst catheter EXTREMITIES:No edema, no joint swelling NEURO: AOx3, normal speech, muscle strength grossly intact PSYCH: normal judgement and insight ACCESS: AVF Lines, Drains, and Airways Line Duration Peripheral External Facility Right Wrist 24 Gauge -- days Drain Duration Surgically Inserted Drain Suprapubic Left Anterior Pelvic -- days Colostomy 04/17/22 LLQ 792 days Labs: Recent Labs 06/17/24 0652 06/16/24 0545 06/15/24 2330 06/15/24 1421 06/15/24 1212 WBC 5.76 7.43 -- -- 6.87 HB 9.6* 9.8* -- -- 10.3* HCT 31.9* 31.1* -- -- 33.1* PLT 151 164 -- -- 161 NA 139 139 137 -- 137 137 K 5.0 5.0 5.9* 4.8 6.4* 6.8* CHLOR 96* 96* 96* -- 97* 98 CO2 30 30 25 -- 23 24 ANION 13 13 16* -- 17* 15 BUN 44* 44* 62* -- 76* 74* CREAT 6.66* 6.66* 7.68* -- 8.99* 8.64* GLUC 201* 201* 189* -- 229* 133* CA 9.1 9.1 9.4 -- 9.5 9.1 P 4.5 4.1 -- -- -- Recent Labs 06/15/24 2155 06/15/242007 BUNPR -- 81* BUNPO 52* -- Recent Labs 06/17/24 0652 06/15/24 1043 ALB 3.6* -- LACT -- 1.0 ASSESSMENT: 38 year old male with pmhx of failed ddktxp back on HD since 2022, ESRD on IHD not dialyzed since last Saturday presenting for cataract surgery. VBG drawn today to check potassium and it revealed a K of 6.8. and BP 230/114. Sent to ED for management. Nephrology consulted for ESRD management. 1.ESRD s/p DDKT, failed kidney transplant now HD dependent -etiology of CKD: neurogenic bladder, obstructive nephropathy -2021-->treated for chronic active AMR and late 1B ACR; remained on dialysis until 07/20/22. Re-admitted in September 2022 with foot infection and JORDI; required dialysis for ~1 week (last HD 09/13/22). Baseline Scr 3-4's. -Scr 4.7 on this admission. Started on HD 10/12/22 for volume overload (moderate pericardial effusion on scan) and now ESRD - dialyzes at [facility] MWF via L AVF 2. Electrolytes: hyperK 3. Volume status: hypervolemia 4. Acid-base: stable 5. Ca/P/PTH,Bone mineral disease: - renvela with meals. Calcium wnl on calcitriol 6. Anemia of CKD at goal PLAN: - HD 3.5hr 2k and UF 1-2L, heparin in circuit - next session Saturday - IS per neph txp team, appreciate coordination of care Standard ESRD recommendations and precautions: - Strict IANDOs and Daily weight - Consider a RENAL Diet for HD patients - Fluid restriction < 1 L - Start Nephrocap or other renal multivitamin to replace water-soluble vitamins lost during dialysis - Avoid Lovenox, Demerol, Morphine, K-containing IVF, Mg- or Phos- containing enemas Consent for BEAUTY ARTIST: ESRD Luis A Mohan PA-C Department of Kidney Medicine [facility] June 17, 2024 12:46 PM PAGER # [phone] Disclosures: Parts of the current progress note may have been copied from a previous note. FOR AFTER HOUR CONCERNS BETWEEN 5PM - 7AM CONTACT ON-CALL NEPHROLOGY FELLOW [phone] CONSULT Observed: 06/17/2024 11:44 AM Status: COMPLETED Source: [facility] HN ID: [id number] Author: DEMETRIUS LANGSTON MD Service: Transplant Author Type: Physician Type: Consults Filed: 06/17/2024 13:15 Note Text: [facility] DEPARTMENT OF KIDNEY MEDICINE KIDNEY TRANSPLANT ADMIT DATE: 06/15/2024 SERVICE DATE: 06/17/2024 SERVICE TIME: 11:44 AM REASON FOR CONSULT I am asked to see this patient in consultation for my opinion regarding IMMUNOSUPPRESSION IN FAILED KIDNEY TRANSPLANT. PRIMARY CARE PHYSICIAN Lang Peres DO HPI: Mr. Guillen is a 38 year old male with PMH of failed donor kidney and pancreas transplant (2020) now 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 Initially came to the hospital for scheduled outpatient cataract surgery but was noted to be very hypertensive and to have hyperkalemia so it was transferred to the hospital for urgent hemodialysis. He was dialyzed on Saturday, Saturday and is going to be dialyzed again today. Transplant nephrology has been consulted for evaluation and recommendations regarding his immunosuppression this patient with a failed kidney transplant. The patient does not know/remember the exact immunosuppression he is on but he recalls he is on tacrolimus and MMF but, again, does not remember the dosing. PAST MEDICAL HISTORY: PAST MEDICAL HISTORY Diagnosis Date Acquired absence of left leg above knee ([facility]) Acquired absence of other right toe(s) ([facility]) Acute infarction of spinal cord (HCC) Acute kidney failure, unspecified ([facility]) Acute osteomyelitis of left ankle or foot (HCC) Acute pulmonary edema ([facility]) Anemia Anemia in chronic kidney disease (CKD) Body mass index 40.0-44.9, adult ([facility]) Cerebral infarction due to unspecified occlusion or stenosis of unspecified cerebral artery ([facility]) Chronic kidney disease (CKD), stage IV (severe) ([facility]) Chronic systolic (congestive) heart failure (HCC) Congestive heart failure (CHF) ([facility]) Dependence on renal dialysis (HCC) Depression Diabetes mellitus with chronic kidney disease ([facility]) End stage renal disease ([facility]) ESRD (end stage renal disease) ([facility]) Essential hypertension GERD (gastroesophageal reflux disease) Heart failure ([facility]) HLD (hyperlipidemia) Hyperkalemia Hyperlipidemia Hypertension Hypertensive heart and chronic kidney disease with heart failure and stage 1 through stage 4 chronic kidney disease, or chronic kidney disease (HCC) Hypo-osmolality and hyponatremia Hypomagnesemia Hypothyroidism Insomnia Insomnia Kidney transplant failure Kidney transplant status FPC current use of insulin ([facility]) Major depressive disorder, recurrent, unspecified (HCC) Mood disorder ([facility]) Morbid (severe) obesity due to excess calories ([facility]) Muscle weakness Neurogenic bowel Neurogenic bowel, not elsewhere classified Neuromuscular dysfunction of bladder Neuromuscular dysfunction of bladder Neuropathy Non-pressure chronic ulcer of other part of unspecified foot with unspecified severity ([facility]) Obstructive sleep apnea Osteomyelitis of vertebra, sacral and sacrococcygeal region ([facility]) Other disorders of phosphorus metabolism Other idiopathic peripheral autonomic neuropathy Other pericardial effusion (noninflammatory) Other pulmonary embolism without acute cor pulmonale, unspecified chronicity (HCC) Paraplegia ([facility]) Paraplegia, incomplete ([facility]) Penile erosion 04/23/2023 Pressure ulcer of ischium, stage 4 ([facility]) Pressure ulcer of left buttock, unspecified stage Right foot ulcer ([facility]) Sepsis ([facility]) Type 2 diabetes ([facility]) Unspecified protein-calorie malnutrition (HCC) UTI (urinary tract infection) Vitamin D deficiency PAST SURGICAL HISTORY: PAST SURGICAL HISTORY Procedure Laterality Date COLOSTOMY TRANSPLANTATION OF KIDNEY WOUND DEBRIDEMENT HX 4 times of the wound FAMILY HISTORY: FAMILY HISTORY Problem Relation Age of Onset Diabetes Mother No Known Problems Father No Known Problems Sister No Known Problems Brother No Known Problems Maternal Grandmother No Known Problems Maternal Grandfather No Known Problems Paternal Grandmother No Known Problems Paternal Grandfather SOCIAL HISTORY: Social History Tobacco Use Smoking status: Never Smokeless tobacco: Never Vaping Use Vaping status: Never Used Substance Use Topics Alcohol use: Never Drug use: Never MEDICATIONS: Current Facility-Administered Medications Medication Dose Route Frequency carvedilol 50 mg tab(s) (COREG) 50 mg ORAL BID w MEALS cloNIDine HCl 0.2 mg tab(s) (CATAPRES) 0.2 mg ORAL BID hydrALAZINE 50 mg tab(s) (APRESOLINE) 50 mg ORAL TID pantoprazole [address] 40 mg tab(s) (PROTONIX) 40 mg ORAL DAILY levothyroxine 150 mcg (SYNTHROID) 150 mcg ORAL BEFORE BREAKFAST DAILY dextrose 15 gram/32 mL 15 g (TRUEPLUS) 15 g ORAL PRN Or glucagon 1 mg injection 1 mg INTRAMUSCULAR PRN Or dextrose 10% iv bolus 12.5 g INTRAVENOUS PRN insulin lispro injection (rapid acting) (ADMElog) SUBCUTANEOUS w MEALS tacrolimus IR 2 mg cap(s) (PROGRAF) 2 mg ORAL q 12 H 6a/6p hydrOXYzine HCl 25 mg tab(s) (ATARAX) 25 mg ORAL q 6 H PRN atorvastatin 40 mg tab(s) (LIPITOR) 40 mg ORAL AT BEDTIME escitalopram oxalate 20 mg tab(s) (LEXAPRO) 20 mg ORAL DAILY insulin glargine 8 Units pen (long acting) 8 Units SUBCUTANEOUS AT BEDTIME melatonin 9 mg tab(s) 9 mg ORAL AT BEDTIME b complex, c, folic acid 1 mg renal vitamins 1 capsule (NEPHROCAPS) 1 capsule ORAL DAILY sevelamer carbonate 2,400 mg tab(s) (RENVELA) 2,400 mg ORAL TID w MEALS ascorbic acid (vitamin C) 500 mg tab(s) (VITAMIN C) 500 mg ORAL DAILY oxyCODONE IR 5 mg tab(s) (ROXICODONE) 5 mg ORAL q 6 H PRN acetaminophen 650 mg tab(s) (TYLENOL) 650 mg ORAL q 4 H PRN Facility-Administered Medications Ordered in Other Encounters Medication Dose Route Frequency hydrALAZINE injection (APRESOLINE) INTRAVENOUS PRN Continuous IV Medications: ALLERGIES: ALLERGIES No Known Allergies REVIEW OF SYSTEMS: Constitutional: No fever, No chills, and No weight loss Eyes: Decreased vision, blind Ear, Nose, and Throat: No oral ulcers Cardiovascular: No chest pain or pressure and No dyspnea on exertion. Respiratory: No cough and No wheezing Gastrointestinal: No diarrhea, No constipation, and No abdominal pain Genitourinary: No nocturia, No hesitancy, No frothy urine, No frequency, No dysuria, and No incontinence Musculoskeletal: No joint pain and No joint swelling Skin: No rash and No ulcers/wounds Neurological: No tremor, No headache, No seizures, and No paresthesias Psychiatric: No depression and No anxiety Endocrine: No hypoglycemic events, No heat intolerance, and No cold intolerance Hematologic:No issues with bruising easily PHYSICAL EXAM BP 157/91 Pulse 71 Temp 36.4 ?C (97.5 ?F) (Oral) Resp 18 Ht 185.4 cm (6' 0.99) Wt 126 kg (277 lb 12.5 oz) SpO2 99% BMI 36.66 kg/m? Constitutional: Not in acute distress. Normal appearance. HENT: Normocephalic and atraumatic. Mucous membranes are moist. Eyes: No scleral icterus. Cardiovascular: Normal rate and regular rhythm. No murmur heard. Pulmonary: No respiratory distress. Normal breath sounds. Abdominal: Abdomen is flat. There is no distension, tenderness, or guarding. Musculoskeletal: Right lower leg: No edema. Left lower leg: No edema. Skin: Skin is warm and dry. Not jaundiced. Neurological: Alert. No focal deficit present. Dialysis Access: L forearm AVF with pulsatile thrill DATA Diagnostic tests reviewed for today's visit Most recent labs Recent Labs 06/17/24 0652 06/16/24 0545 06/15/24 2330 06/15/24 1421 06/15/24 1212 NA 139 139 137 -- 137 137 K 5.0 5.0 5.9* 4.8 6.4* 6.8* CHLOR 96* 96* 96* -- 97* 98 CO2 30 30 25 -- 23 24 BUN 44* 44* 62* -- 76* 74* CREAT 6.66* 6.66* 7.68* -- 8.99* 8.64* GLUC 201* 201* 189* -- 229* 133* ANION 13 13 16* -- 17* 15 CA 9.1 9.1 9.4 -- 9.5 9.1 P 4.5 4.1 -- -- -- Recent Labs 06/17/24 0652 06/16/24 0545 06/15/24 1212 WBC 5.76 7.43 6.87 HB 9.6* 9.8* 10.3* HCT 31.9* 31.1* 33.1* PLT 151 164 161 Recent Labs 06/17/24 0652 HB 9.6* Recent Labs 06/17/24 0652 CA 9.1 9.1 P 4.5 ALB 3.6* Recent Labs 06/15/24 2155 06/15/242007 BUNRAT 36 -- BUNPR -- 81* BUNPO 52* -- Recent Labs 06/15/24 1212 HEPSABQ Positive URINALYSIS Invalid input(s): NITR INTAKE AND OUTPUT Date 06/16/24 07 - 06/17/24 0659 06/17/24 07 - 06/18/24 0659 Shift 6787-8502 0470-9412 9986-1092 24 Hour Total 4947-4528 9867-3228 5026-2423 24 Hour Total INTAKE PO 400 400 PO 400 400 Shift Total 400 400 OUTPUT Urine 0 0 Void (ml) 0 0 # of BMs Number of BMs 0 x 0 x Shift Total 0 0 Weight (kg) 126 126 126 126 126 126 126 126 ASSESSMENT This is a 38 year old male with PMH of failed donor kidney and pancreas transplant (2020) now 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 Admitted for urgent hemodialysis needs with hyperkalemia and hypertension. Transplant nephrology consulted for immunosuppression management. DDKT, failed kidney transplant now HD dependent -Etiology of CKD: neurogenic bladder, obstructive nephropathy and DM -Now failed and back on iHD for ESRD since October 2022 Unclear home immunosuppression regimen but, per patient, he gets MMF and tacro, does not know the dose PLAN - Continue current tacrolimus dosin mg twice daily -Please check tacrolimus level tomorrow morning between 5 and 6 AM prior to next tacrolimus dose. (Today's level was taken about an hour and a half after his morning dose) -Will adjust tacrolimus dosing depending on the level tomorrow, we we will aim for trough level of 3-7 -No need to restart MMF, can be discontinued -No need to restart prednisone, can be discontinued. -Hemodialysis management by ESRD team, please see HERBERT Love's notes for further information. - Recommendations to be finalized pending staff evaluation. Von Victoria MD Nephrology Fellow PGY-IV [employer] Chat Pager number: [phone] For 5 PM - 7 AM weekdays, and weekends please contact fellow press operator carbon products at: [phone] June 17, 2024 11:44 AM Kidney Transplant Staff Note I have reviewed the consult note obtained and documented by the fellow and I personally participated in the brar components. I have discussed the case and management of the patient's care. The text in bold revises or confirms relevant brar components of their note. All other text, while not edited has been reviewed. 38-year-old male with past medical history of type 1 diabetes mellitus status post kidney transplantation 2019 that failed soon after. Patient was apparently at an outside facility and therefore no medical records but patient states that he has not been making any urine for about 2 years. He is not an institution and he is blind therefore he does not see his very little urine output is bloody or not. He denies any pain at the graft site. He is still on tacrolimus 2 mg twice a day and CellCept 500 mg twice a day which has not been discontinued. He has not followed up anymore at the transplant center. It is okay to completely stop the MMF but would keep tacrolimus 2 mg twice a day for now. He should not be of immunosuppression completely to avoid hyperacute rejection. Check tacrolimus level in the morning. Aim at a very low level between 3 and 6 ng/ml. SIGNATURE: Demetrius Langston MD PAGER: [phone] CASE MANAGEM Observed: 06/17/2024 10:18 AM Status: COMPLETED Source: [facility] ID: [id number] Author: ROCIO BEJARANO LISW Service: ? Author Type: Meat Stringer Type: Care Mgt Progress Note Filed: 06/17/2024 15:16 Note Text: CARE MANAGEMENT DISCHARGE NOTE SERVICE DATE: June 17, 2024 SERVICE TIME: 10:18 AM Admission Date: 06/15/2024 LOS: 1 day Discharge Arrangement Discharge Arrangement: Extended Care Facility Services Arranged [place] [facility] Caregiver Assessment Caregiver is ready, willing and able to meet the patient's needs as recommended by the inter-professional team: No Caregiver needed Transportation Arrangements Transportation Arrangements: Ambulance Transportation Agency and Phone #:: [facility] [phone] Date of Trip: 06/17/24 Time of Trip: 0929 Type of Service: BLS Non-emergency Hydraulic Lift Operator Location: Main [place] Destination: [facility] Financial Care Management Responsibility: None Handoff Communication: Handoff to: Primary Care Physician Primary Care Physician Name/Phone: Lang Yannick Discharge Information Row Name ED to Hosp-Admission (Current) from 06/15/2024 in HOSP MAIN H080 Long Term Facility Agency [facility] DC planned for today Patient will return to [facility] today at 4:30 pm via MMT stretcher Trip # [id number] RN report # [phone] x [phone] SIGNATURE: JAVIER Armas PATIENT NAME: China Guillen DATE: June 17, 2024 TIME: 10:18 AM BAS METAB 1999 PNL SERPL Collected: 05/2024 6:52 AM Status: F Source: [facility] Order Comment: Specimen Type : BLOOD SPECIMEN Ordering Facility: [facility] Address: [address] [place] [address] TYPE CODE TESTS RESULT OUT OF RANGE REFERENCE UNITS LAB 2345-7(LOINC) Glucose SerPl-mCnc 201 High 74-99 mg/dL Result Comment: The [place] Diabetes Association (ADA) provides guidance for cutoff values for fasting glucose and random glucose. The ADA defines fasting as no caloric intake for at least 8 hours. Fasting plasma glucose results between 100 to 125 mg/dL indicate increased risk for diabetes (prediabetes). Fasting plasma glucose results greater than or equal to 126 mg/dL meet the criteria for diagnosis of diabetes. In the absence of unequivocal hyperglycemia, results should be confirmed by repeat testing. In a patient with classic symptoms of hyperglycemia or hyperglycemic crisis, random plasma glucose results greater than or equal to 200 mg/dL meet the criteria for diagnosis of diabetes. Reference: Standards of Medical Care in Diabetes 2016, [place] [employer]. Diabetes Care. 2016.39(Suppl 1).The [place] Diabetes Association (ADA) provides guidance for cutoff values for fasting glucose and random glucose. The ADA defines fasting as no caloric intake for at least 8 hours. Fasting plasma glucose results between 100 to 125 mg/dL indicate increased risk for diabetes (prediabetes). Fasting plasma glucose results greater than or equal to 126 mg/dL meet the criteria for diagnosis of diabetes. In the absence of unequivocal hyperglycemia, results should be confirmed by repeat testing. In a patient with classic symptoms of hyperglycemia or hyperglycemic crisis, random plasma glucose results greater than or equal to 200 mg/dL meet the criteria for diagnosis of diabetes. Reference: Standards of Medical Care in Diabetes 2016, [place] [employer] Association. Diabetes Care. 2016.39(Suppl 1). LAB 3094-0(LOINC) BUN SerPl-mCnc 44 High 9-24 mg/ dL LAB 2160-0(LOINC) Creat SerPl-mCnc 6.66 High 0.73-1.22 mg/dL LAB 2951-2(LOINC) Sodium SerPl-sCnc 139 136-144 mmol/L LAB 2823-3(LOINC) Potassium SerPl-sCnc 5.0 3.7-5.1 mmol/L LAB 2075-0(LOINC) Chloride SerPl-sCnc 96 Low 98-107 mmol/L LAB 2028-9(LOINC) CO2 SerPl-sCnc 30 22-30 mmo l/L LAB 86958-4(LOINC) Anion Gap SerPl-sCnc 13 8-15 mmol/L LAB 44764-2(LOINC) Calcium SerPl-mCnc 9.1 8.5-10.2 mg/dL LAB 49840-7(LOINC) Creatinine + eGFR Pnl SerPlBld 10 Low >=60 mL/min/1 .73m??? Result Comment: Estimated Gl omerular Filtration Rate (eGFR) is calculated using the 2020 CKD-EPI creatinine equation. This equation utilizes serum creatinine, sex, and age as parameters. The creatinine assay has traceable calibration to isotope dilution-mass spectrometry. Refer to KDIGO guidelines for clinical interpretation. In patients with unstable renal function, e.g. those with acute kidney injury, the eGFR may not accurately reflect actual GFR. Performed By: #### 38660-3, 49710-7 #### [facility] CLIA [id number] [address] [facility] [address] [place] [id number] [place] RENAL FUNC 2000 PNL SERPL Collected: 6:52 AM Status: F Source: [facility] Order Comment: Specimen Type : BLOOD SPECIMEN Ordering Facility: [facility] Address: [address] [place] [address] TYPE CODE TESTS RESULT OUT OF RANGE REFERENCE UNITS LAB 1751-7(LOINC) Albumin SerPl-mCnc 3.6 Low 3.9-4.9 g/dL LAB 03208-8(LOINC) Calcium SerPl-mCnc 9.1 8.5-10.2 mg/dL LAB 2777-1(LOINC) Phosphate SerPl-mCnc 4.5 2.7-4.8 mg/dL LAB 2345-7(LOINC) Glucose SerPl-mCnc 201 High 74-99 mg/dL Result Comment: The [place] Diabetes Association (ADA) provides guidance for cutoff values for fasting glucose and random glucose. The ADA defines fasting as no caloric intake for at least 8 hours. Fasting plasma glucose results between 100 to 125 mg/dL indicate increased risk for diabetes (prediabetes). Fasting plasma glucose results greater than or equal to 126 mg/dL meet the criteria for diagnosis of diabetes. In the absence of unequivocal hyperglycemia, results should be confirmed by repeat testing. In a patient with classic symptoms of hyperglycemia or hyperglycemic crisis, random plasma glucose results greater than or equal to 200 mg/dL meet the criteria for diagnosis of diabetes. Reference: Standards of Medical Care in Diabetes 2016, [place] Diabetes Association. Diabetes Care. 2016.39(Suppl 1). LAB 3094-0(LOINC) BUN SerPl-mCnc 44 High 9-24 mg/ dL LAB 2160-0(LOINC) Creat SerPl-mCnc 6.66 High 0.73-1.22 mg/dL LAB 2951-2(LOINC) Sodium SerPl-sCnc 139 136-144 mmol/L LAB 2823-3(LOINC) Potassium SerPl-sCnc 5.0 3.7-5.1 mmol/L LAB 2075-0(LOINC) Chloride SerPl-sCnc 96 Low 98-107 mmol/L LAB 8-9(LOINC) CO2 SerPl-sCnc 30 22-30 mmo l/L LAB 01227-6(LOINC) Anion Gap SerPl-sCnc 13 8-15 mmol/L LAB 35662-8(LOINC) Creatinine + eGFR Pnl SerPlBld 10 Low >=60 mL/min/1 .73m??? Result Comment: Estimated Gl omerular Filtration Rate (eGFR) is calculated using the 2020 CKD-EPI creatinine equation. This equation utilizes serum creatinine, sex, and age as parameters. The creatinine assay has traceable calibration to isotope dilution-mass spectrometry. Refer to KDIGO guidelines for clinical interpretation. In patients with unstable renal function, e.g. those with acute kidney injury, the eGFR may not accurately reflect actual GFR. Performed By: #### 14250-2, 21303-2 #### [facility] CLIA [id number] [address] [place] [address] STATES OF [facility] CBC PNL BLD AUTO Collected: 4 6:52 AM Status: F Source: [facility] Order Comment: Specimen Type : BLOOD SPECIMEN Ordering Facility: [facility] Address: [address] [place] [address] TYPE CODE TESTS RESULT OUT OF RANGE REFERENCE UNITS LAB 6690-2(LOINC) WBC # Bld Auto 5.76 3.70-11.00 k/uL LAB 789-8(LOINC) RBC # Bld Auto 3.45 Low 4.20-6.00 m/uL LAB 718-7(LOINC) Hgb Bld-mCnc 9.6 Low 13.0-17.0 g/dL LAB 4544-3(LOINC) Hct VFr Bld Auto 31.9 Low 39.0-51.0 % LAB 787-2(LOINC) MCV RBC Auto 92.5 80.0-100.0 fL LAB 785-6(LOINC) MCH RBC Qn Auto 27.8 26.0-34.0 pg LAB 786-4(LOINC) MCHC RBC Auto-mCnc 30.1 Low 30.5-36.0 g/dL LAB 88292-6(LOINC) RDW RBC-Rto 16.6 High 11.5-15.0 % LAB 777-3(LOINC) Platelet # Bld Auto 151 150-400 k/uL LAB 26532-6([facility]) PMV Bld Auto 11.2 9.0-12.7 fL LAB 771-6([facility]) nRBC # Bld Auto <0.01 <0.01 k/uL Performed By: #### 97402-4, 79337-5 #### [facility] CLIA [id number] [address] [place] [address] [place] TACROLIMUS BLD-MCNC Collected: 06/17/20 24 6:52 AM Status: F Source: [facility] Order Comment: Specimen Type : BLOOD SPECIMEN Ordering Facility: [facility] Address: [address] [place] [address] TYPE CODE TESTS RESULT OUT OF RANGE REFERENCE UNITS LAB 50510-6([facility]) Tacrolimus Bld-mCnc 8.1 5.0-20.0 ng/mL Result Comment: Individualiz ed target levels for a given patient will depend on many factors (including the type of organ transplant, time since transplantation, concurrent medications, and other clinical factors), and should be assessed by those health care providers experienced in the management of immunosuppression. Reference ranges and high/low indicator flags are provided as general guidelines only. The treating physician must determine appropriate target levels/dosing based on the specific clinical situation. Test performed by chemiluminescent immunoassay using Buchanan Alinity i. Performed By: #### 20011-4, 66715-7 #### [facility] CLIA [id number] [address] [place] [address] [place] CNDS Observed: 06/16/2024 3:21 PM Status: COMPLETED Source: [facility] HNO ID: [id number] Author: CARRIE SALGADO MD Service: Hospital Medicine Author Type: Physician Mineral Engineer Type: Discharge Summary Filed: 07/14/2024 09:01 Note Text: Attestation signed by Carrie Salgado MD at 07/14/2024 9:01 AM [facility] STAFF PHYSICIAN NOTE OF PERSONAL INVOLVEMENT IN CARE I have reviewed the discharge note obtained and documented by Ysabel Morris PA-C (Physician Mineral Engineer) . I have explored in detail with the patient the HPI and ROS. I have discussed the case and management of the patient's care with Ysabel Morris PA-C (Physician Mineral Engineer) . I have reviewed available labs, and my exam and A/P are in agreement with the documentation above. Total time spent was more than 30 minutes with more than 50% time spent in direct face to face and co-oordination of care. Carrie Salgado MD [facility] [id number] DISCHARGE SUMMARY PATIENT NAME: China Guillen ADMISSION DATE: 06/15/2024 DISCHARGE DATE: 06/17/2024 ATTENDING PHYSICIAN: Carrie Salgado MD Code Status: Full Code PCP: Lang Peres DO Highest Readmission Risk Score: 41 The 30 day readmissions risk score is derived from an internally validated risk model which evaluates patient level characteristics, utilization history, medication orders and lab results up until the day of discharge. Patients with a score of 40 or above are considered highest risk for readmission. Specific patient level drivers will be listed at the bottom of the summary. TRANSITIONS OF CARE CRITICAL ISSUES: BRAR MEDICATION CHANGES: - Changed Clonidine from PRN to scheduled FOLLOW UP APPOINTMENTS: Follow-up in one week with primary care. REASON FOR HOSPITALIZATION/PRINCIPAL DIAGNOSES: Hyperkalemia HOSPITAL PROBLEMS: Principal Problem: Hyperkalemia (POA: Yes) Active Problems: Pressure ulcer of ischium, left, stage IV (HCC) (POA: Yes) Obesity (BMI 30-39.9) (POA: Yes) Type 2 diabetes mellitus with polyneuropathy (HCC) (POA: Yes) Pressure ulcer of sacral region, stage 2 (HCC) (POA: Yes) Paraplegia (HCC) (POA: Yes) Type 2 diabetes (HCC) (POA: Yes) Neurogenic bowel (POA: Yes) Depression (POA: Yes) Kidney transplant status (POA: Yes) Cerebral infarction due to unspecified occlusion or stenosis of unspecified cerebral artery (HCC) (POA: Yes) ESRD on dialysis (HCC) (POA: Unknown) Dermatitis associated with moisture (POA: Yes) Wound, open, abdominal wall, anterior (POA: Yes) Ulcer of toe of right foot, limited to breakdown of skin (HCC) (POA: Unknown) Hypertensive urgency (POA: Yes) Resolved Problems: * No resolved hospital problems. 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 Patient presented for cataract surgery and was found to hypertensive blood pressure Systolic 230 and potassium 6.8. EKG w/ evidence of peaked T waves. Patient was taken urgent dialysis, blood pressure medication was resumed. Current BP regiment at SNF facility is Carvedilol 50mg BID Hydralazine 50mg TID, Amlodipine 5mg daily and Clonidine 0.1 mg Bid PRN. During hospitalization patient received Clonidine 0.2 mg Bid scheduled w/ control of his blood pressure. Recommended to continue Carvedilol 50mg BID, Hydralazine 50mg TID, Amlodipine 5mg daily and Clonidine 0.2 mg Bid monitor blood pressure and adjust medications as needed. Patient was seen by podiatry during hospitalization, debridement and care provided, foot x-ray obtained showed post surgical changes, no evidence of OM. Patient was also seen by the transplant team recommended to continue Tacrolimus 2 mg bid daily and follow-up w/ transplant nephrology out patient for immunosuppressant dose monitor and adjustment Appt w/ nephrology and ophthalmology was requested. OPERATIONS/PROCEDURE DURING THIS HOSPITALIZATION: * No surgery found * CONSULTS DURING HOSPITALIZATION: Treatment Team: Attending Provider: Carrie Salgado MD Primary Service: GIM 3 Physician Mineral Engineer: Ysabel Morris PA-C PATIENT CONDITION AT DISCHARGE: Stable DISCHARGE DISPOSITION: Long Term Facility Discharge Physical Exam: VITAL SIGNS: BP 157/91 Pulse 71 Temp 36.4 ?C (97.5 ?F) (Oral) Resp 18 Ht 185.4 cm (6' 0.99) Wt 126 kg (277 lb 12.5 oz) SpO2 99% BMI 36.66 kg/m? Physical Exam Performed: GENERAL: Alert and in no acute distress HEART: regular rate and rhythm, no murmur, gallop or rub, normal, S1, S2 LUNGS: clear to auscultation and no rales or wheezing. ABDOMEN: Soft, nontender, ostomy in place EXTREMITY: R foot wound dressing in place MUSCULOSKELETAL: Paraplegia NEURO: Sensation grossly intact, Cranial nerves II-XII intact PULSES: 2+ radial SKIN: Skin color, texture, turgor normal. No rashes or lesions WOUND/SURGICAL SITE CARE: Wound Care: Betadine soaked gauze 4x3 or 4x4, dry 4x3 or 4x4 gauze, ABD, Kerlix, ARMINDA Do this daily. Nursing communications placed for assistance with dressing changes. Appreciate their help. - ADL/Precautions: Non-weight bearing (NWB) to the LLE. Heel WB for transfers only.. Patient states that he uses wheeled chair Prevalon boot on when in bed. SUPPLIES OR EQUIPMENT: None DIET: Regular ACTIVITY AND EXERCISE: Resume pre-hospital activity FOLLOW UP APPOINTMENTS: Future Appointments Date Time Provider Department Center 07/23/2024 1:30 PM Anderson Swanson MD [facility] 07/28/2024 1:45 PM Munir Burton MD [facility] 09/03/2024 9:15 AM [facility] ALLERGIES No Known Allergies DISCHARGE MEDICATION: Medication List START taking these medications hydrOXYzine HCl 25 mg tablet Commonly known as: ATARAX Take 1 tablet by mouth every 6 hours as needed for itching/rash. sevelamer carbonate 800 mg tablet Commonly known as: RENVELA Take 3 tablets by mouth three times a day with meals. CHANGE how you take these medications cloNIDine HCl 0.2 mg tablet Commonly known as: CATAPRES Take 1 tablet by mouth two times a day. What changed: medication strength how much to take when to take this reasons to take this CONTINUE taking these medications acetaminophen 325 mg tablet Commonly known as: TYLENOL aluminum-magnesium hydroxide-simethicone 200-200-20 mg/5 mL suspension Take 30 mL by mouth once daily as needed. ANTI-ITCH(DIPHENHYD) WITH ZINC cream Generic drug: diphenhydrAMINE-Zinc Acetate apixaban 2.5 mg tab(s) Commonly known as: ELIQUIS Ascorbic Acid 500 mg Chew atorvastatin 40 mg tablet Commonly known as: LIPITOR BIOFREEZE (MENTHOL) 4 % topical gel Generic drug: menthol carvedilol 25 mg tablet Commonly known as: COREG Ciclopirox 8 % solution Commonly known as: CICLODAN epoetin jacki 10,000 unit/mL injection Commonly known as: PROCRIT, EPOGEN Inject 1 mL subcutaneously 3 Times weekly with dialysis. escitalopram oxalate 20 mg tablet Commonly known as: LEXAPRO glucagon 1 mg injection Commonly known as: GLUCAGEN GLUCOSE GEL ORAL guaiFENesin 100 mg/5 mL syrup Commonly known as: ROBITUSSIN hydrALAZINE 50 mg tablet Commonly known as: APRESOLINE insulin lispro 100 unit/mL injection Commonly known as: ADMElog LANTUS U-100 INSULIN 100 unit/mL injection Generic drug: insulin glargine levothyroxine 150 mcg tablet Commonly known as: SYNTHROID melatonin 3 mg tablet nystatin powder Commonly known as: MYCOSTATIN ondansetron 4 mg tablet Commonly known as: ZOFRAN OXYGEN (HOME THERAPY) pantoprazole DR 40 mg tablet Commonly known as: PROTONIX polyethylene glycol 3350 17 gram packet Take 1 Packet by mouth once daily as needed. Dissolve dose in 4 - 8 ounces of liquid and take as directed. RENAL CAPS 1 mg capsule Generic drug: b complex, c, folic acid 1 mg renal vitamins SENNA PLUS 8.6-50 mg per tablet Generic drug: senna-docusate sevelamer 800 mg tablet Commonly known as: RENAGEL tacrolimus IR 1 mg capsule Commonly known as: PROGRAF Take 2 capsules by mouth two times a day. STOP taking these medications diphenhydrAMINE 25 mg capsule Commonly known as: BENADRYL The patient's risk for 30-day readmission is determined using the following contributing factors: Pt variables contributing to increased readmission risk: 62 Most Recent BUN Result 18 Active Medication Orders 9.1 First Resulted Calcium During Admission 1 Previous ED Visit (6 mos.)? 1 Number of Previous ED Visits (6 mos.) 1 Insurance - Medicare 1 History of Anemia 1 History of Chronic Kidney Disease Plan of care discussed with Provider, RN, Patient I have performed the [id number] and relevant services for a total of >30 minutes. SIGNATURE: Ysabel Morris PA-C DATE: June 17, 2024 TIME: 1:38 PM PROGRESS Observed: 06/16/2024 3:10 PM Status: COMPLETED Source: [facility] HNO ID: [id number] Author: YSABEL MORRIS PA-C Service: Hospital Medicine Author Type: Physician Mineral Engineer Type: Progress Notes Filed: 06/16/2024 15:53 Note Text: DEPARTMENT OF HOSPITAL MEDICINE PROGRESS NOTE SERVICE DATE: 06/16/2024 SERVICE TIME: 3:10 PM Hospital Medicine/Primary Attending: Carrie Salgado MD NIGHT AND WEEKEND COVERAGE: [facility] COVERAGE: Days: [id number], please page Ysabel Morris for patient issues. Nights: [id number], please page Team GIM 3: G/H 8th floor: [address]; Non 8th floor [address] Subjective INTERVAL HPI: He states that he is feeling much better today and is wondering when he can leave. Potassium 5.9 this am after dialysis last night, dialysis plan for today. BP 191/110 this AM before meds Patient reports no headache, fevers, chills, nausea, vomiting, shortness of breath. He reports some chest pain yesterday that subsided after dialysis. Also reports some back pain that started yesterday but has subsided. Current Facility-Administered Medications Medication Dose Route Frequency carvedilol 50 mg tab(s) (COREG) 50 mg ORAL BID w MEALS cloNIDine HCl 0.2 mg tab(s) (CATAPRES) 0.2 mg ORAL BID hydrALAZINE 50 mg tab(s) (APRESOLINE) 50 mg ORAL TID pantoprazole DR 40 mg tab(s) (PROTONIX) 40 mg ORAL DAILY levothyroxine 150 mcg (SYNTHROID) 150 mcg ORAL BEFORE BREAKFAST DAILY dextrose 15 gram/32 mL 15 g (TRUEPLUS) 15 g ORAL PRN Or glucagon 1 mg injection 1 mg INTRAMUSCULAR PRN Or dextrose 10% iv bolus 12.5 g INTRAVENOUS PRN insulin lispro injection (rapid acting) (ADMElog) SUBCUTANEOUS w MEALS tacrolimus IR 2 mg cap(s) (PROGRAF) 2 mg ORAL q 12 H 6a/6p hydrOXYzine HCl 25 mg tab(s) (ATARAX) 25 mg ORAL q 6 H PRN atorvastatin 40 mg tab(s) (LIPITOR) 40 mg ORAL AT BEDTIME [START ON 06/17/2024] escitalopram oxalate 20 mg tab(s) (LEXAPRO) 20 mg ORAL DAILY insulin glargine 8 Units pen (long acting) 8 Units SUBCUTANEOUS AT BEDTIME melatonin 9 mg tab(s) 9 mg ORAL AT BEDTIME b complex, c, folic acid 1 mg renal vitamins 1 capsule (NEPHROCAPS) 1 capsule ORAL DAILY sevelamer carbonate 2,400 mg tab(s) (RENVELA) 2,400 mg ORAL TID w MEALS ascorbic acid (vitamin C) 500 mg tab(s) (VITAMIN C) 500 mg ORAL DAILY Facility-Administered Medications Ordered in Other Encounters Medication Dose Route Frequency hydrALAZINE injection (APRESOLINE) INTRAVENOUS PRN Objective PHYSICAL EXAM: BP 163/84 Pulse 77 Temp (Src) 98.6 (Oral) Resp 16 Ht 6' .992 (1.85m) Wt 277 lb 12.5 oz (126.0kg) SpO2 98% BMI 36.66 kg/(m2). O2 Therapy: Nasal Cannula, Liters: 4.00 Physical Exam Performed GENERAL: Alert, no distress, cooperative, Morbidly Obese LUNGS: Lungs clear to auscultation, Good diaphragmatic excursion CARDIAC: Normal S1 and S2; no rubs, murmurs, or gallops ABDOMEN: Abdomen soft, non-tender, BS normal, No masses or organomegaly and colostomy and SPT in place. EXTREMITIES: L BKA NEURO: Paraplegia PRESSURE ULCERS: UNSTAGEABLE: Follow conditions location(s): multiple Lines, Drains, and Airways Line Duration Peripheral External Facility Right Wrist 24 Gauge -- days Drain Duration Surgically Inserted Drain Suprapubic Left Anterior Pelvic -- days Colostomy 04/17/22 LLQ 791 days Reviewed lines and needs to be continued: REASONS: Difficulty in obtaining/maintaining access DATA: Diagnostic tests reviewed for today's visit: Most recent labs Most recent imaging Recent Labs 06/16/24 0545 06/15/24 2330 06/15/24 1421 06/15/24 1212 WBC 7.43 -- -- 6.87 HB 9.8* -- -- 10.3* HCT 31.1* -- -- 33.1* PLT 164 -- -- 161 NA 137 -- 137 137 K 5.9* 4.8 6.4* 6.8* CHLOR 96* -- 97* 98 CO2 25 -- 23 24 CREAT 7.68* -- 8.99* 8.64* BUN 62* -- 76* 74* GLUC 189* -- 229* 133* CA 9.4 -- 9.5 9.1 Assessment/Plan Problem List Assessment AND Plan Hyperkalemia Pressure ulcer of ischium, left, stage IV (HCC) Obesity (BMI 30-39.9) Type 2 diabetes mellitus with polyneuropathy (HCC) Pressure ulcer of sacral region, stage 2 (HCC) Paraplegia (HCC) Type 2 diabetes (HCC) Neurogenic bowel Depression Kidney transplant status Cerebral infarction due to unspecified occlusion or stenosis of unspecified cerebral artery (HCC) ESRD on dialysis (HCC) Dermatitis associated with moisture Wound, open, abdominal wall, anterior Ulcer of toe of right foot, limited to breakdown of skin (HCC) Hypertensive urgency HOSPITAL COURSE: This is a 38 year old male [place] resident with complex medical history of T2DM on insulin, c/b ESRD status failed kidney transplant back on IHD 2022 via AVF bilateral retinal detachments, 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 He presented for cataract surgery on 06/15, found to be hypertensive with systolic blood pressure: 230 and hyperkalemic with a potassium of 6.8. He was sent from ophthalmology to the ER. Hyperkalemia treated medically, amlodipine and carvedilol given. Repeat potassium 6.4 EKG showed peaked T Waves. [facility] D[facility] Nephrology unit contacted and he was dialyzed evening 06/15. His last dialysis was Saturday06/12/24. Principal Problem: #ESRD # Hyperkalemia # Hx of failure of kidney transplant # Anemia from Chronic Kidney Disease Patient received HD 06/15 when admitted Postdialysis cmp showed potassium at 5.9. PLAN: - Another round of HD today - Nephro consulted - Resume regular schedule dialysis (M/W/F) - continue Nephrocaps - continue Renvela - continue Prograf, consult Transplant nephrology - Renal function panel Active Problems # Hypertension PLAN: - Carvedilol 50mg BID - Hydralazine 50mg TID - Clonidien 0.2mg BID (Home home dose 0.2 mg Bid PRN) - Amlodipine 5mg daily - Monitor BP # Type 2 Diabetes Mellitus with polyneuropahty PLAN: - Continue Lantus 25u nightly - SSI #1 - Hypoglycemia protocol # Neurogenic bowel/bladder - Colostomy - Suprapubic catheter in place - Daily stoma mgmt # Depression - Lexapro 10mg daily # Pressure ulcer of ischium, left, stage IV # Pressure ulcer of sacral region, stage 2 Podiatry consult - recommend xray to right foot to r/o underlying bony involvement PLAN: - Wound care consult ongoing # Cerebral infarction due to unspecified occlusion or stensosis of unspecfiied cerebral artery # Paraplegia - Continue to mobilize patient - pt on Eliquis held 06/12 in anticipation for cataract surgery - resume Eliquis on discharge if no plans for recent surgery Wound 06/16/24 0837 Pressure Injury Ischium Left (Active) Properties Placement Date 06/16/24 Placement Time 0837 Location Ischium Present on Original Admission Yes Primary Wound Type Pressure Injury If Pressure Injury, is it Device Related? If Yes, Add Device Type in Comment Box No Wound Location Orientation Left Assessments 06/16/2024 8:37 AM IF PATIENT HAS A PRESSURE INJURY: WHEN WAS IT ACQUIRED? (Document one time during this admission) Present on Admission during this Encounter Medication and Non-Pharmacologic VTE Prophylaxis/Anticoagulants 06/15/24 1637 activity - mobilize patient (oh,oh) VTE Prophylaxis: VTE prophylaxis appropriate Disposition: To be determined Plan of care discussed with Provider, RN, Patient Plan communicated to: Patient prefers to communicate with family. SIGNATURE: BRITTANY Poole PATIENT NAME: China Guillen DATE: June 16, 2024 TIME: 3:10 PM TEACHING PROVIDER (Physician/PA/TRENCH TRIMMER FINE) NOTE OF PERSONAL INVOLVEMENT IN CARE: I have personally seen and examined the patient and performed the medical decision-making components. I have reviewed the Physician Mineral Engineer (PA) Student's documentation and verified the findings in the note as written. Any additions or changes are noted in bold/italics. Signature: Ysabel Morris Date: 06/16/2024 Time: 3:44 PM PLAN OF CARE Observed: 06/16/2024 12:51 PM Status: COMPLETED Source: [facility] HNO ID: [id number] Author: SU PALACIOS RPh Service: Pharmacy Author Type: Pharmacist Type: Plan of Care Filed: 06/16/2024 13:22 Note Text: PHARMACY MEDICATION REVIEW Patient Name: China Guillen : 1985 The following medications were updated within the PROTECTION AGENT medication list: Medications ADDED to PROTECTION AGENT medication list Diphenhydramine- zinc acetate cream Apply to affected area three times a day as needed for itching Menthol topical gel (Biofreeze) Apply to bilateral shoulders every morning and at bedtime Ciclopirox 8% solution apply to nail fungus daily at bedtime Guaifenesin 10 mL by mouth every 4 hours as needed for cough Nystatin powder Apply to groin and abdominal folds topically every 12 hours as needed for skin irritation Renal caps 1 capsule by mouth daily Medications CHANGED on PROTECTION AGENT medication list Acetaminophen 1000 mg by mouth every 8 hours changed to 650 mg by mouth every 4 hours as needed for pain or fever Atorvastatin 80 mg by mouth at bedtime changed to 40 mg by mouth at bedtime Clonidine 0.2 mg by mouth two times a day changed to 0.05 mg by mouth as once daily as needed for HTN (SBP > 160 or DBP >90) Carvedilol 12.5 mg by mouth twice daily changed to 50 mg by mouth twice daily Escitalopram 10 mg by mouth daily changed to 20 mg by mouth daily Eliquis 5 mg by mouth twice daily changed to 2.5 mg by mouth twice daily Hydralazine 25 mg by mouth three times daily changed to 50 mg by mouth three times daily Insulin lispro: added directions of 5 units three times daily with meals and sliding scale Insulin glargine 24 units at bedtime changed to 8 units in the afternoon Melatonin 3 mg at bedtime changed to 9 mg at bedtime Ondansetron 8 mg by mouth every 8 hours changed to 4 mg by mouth every 8 hours as needed for nausea Medications REMOVED from PROTECTION AGENT medication list Tacrolimus 6 mg by mouth twice daily Vitamin A Zinc Trazodone Sodium bicarbonate Prednisone Promethazine Oxycodone IR Oxycodone-acetaminophen Nifedipine Mycophenolate Mupirocin ointment Multivitamin Midodrine Miconazole cream Insulin glargine-yfgn Gabapentin Famotidine Amlodipine Aspirin Calcitriol Albuterol Colchicine Collagenase ointment Darbepoetin Clotrimazole-betamethasone cream The below information represents the best possible medication history: Yes Medication history completed by: Pharmacist: Su Palacios RPh Source of history: long term/Other [facility] SN[facility] Medication nonadherence identified: No barriers noted Reconciliation completed: Yes Completed by: Su Palacios RPh Addressing the above changes with LIP. Patient interested in Bedside Delivery Services or using OP Pharmacy at discharge? No Preferred outpatient pharmacy: [facility] [place] [address] [facility] [phone] Allergies: No Known Allergies Prior to Admission Medications Prescriptions Last Dose Informant Patient Reported? Taking? Ascorbic Acid 500 mg chew Yes Yes Sig: Take 500 mg by mouth once daily. Ciclopirox (CICLODAN) 8 % solution Yes Yes Sig: Apply to affected area daily at bedtime. (For nail fungus) LANTUS U-100 INSULIN 100 unit/mL injection Yes Yes Sig: Inject 8 Units subcutaneously every afternoon. OXYGEN, HOME THERAPY, Yes No Si L/min by Nasal Cannula route as directed. To keep sats >% - LPM via NC to maintain pulse ox above 92% as needed if patient has shortness of breath or s/sx of acetaminophen (TYLENOL) 325 mg tablet Yes Yes Sig: Take 650 mg by mouth every 4 hours as needed for pain or fever (specify temp.). aluminum-magnesium hydroxide-simethicone 200-200-20 mg/5 mL suspension 06/14/2024 No Yes Sig: Take 30 mL by mouth once daily as needed. apixaban (ELIQUIS) 2.5 mg tab(s) Yes Yes Sig: Take 2.5 mg by mouth two times a day. atorvastatin (LIPITOR) 40 mg tablet 06/14/2024 Yes Yes Sig: Take 40 mg by mouth daily at bedtime. b complex, c, folic acid 1 mg renal vitamins (RENAL CAPS) 1 mg capsule Yes Yes Sig: Take 1 capsule by mouth once daily. carvedilol (COREG) 25 mg tablet 06/14/2024 Yes Yes Sig: Take 50 mg by mouth two times a day with meals. cloNIDine HCl (CATAPRES) 0.1 mg tablet 06/14/2024 Yes Yes Sig: Take 0.05 mg by mouth once daily as needed ((SBP > 160 or DBP >90)). dextrose (GLUCOSE GEL ORAL) Yes Yes Sig: Give one dose by mouth as needed for hypoglycemic episode diphenhydrAMINE (BENADRYL) 25 mg capsule Yes Yes Sig: Take 25 mg by mouth every 6 hours as needed for itching/rash. diphenhydrAMINE-Zinc Acetate (ANTI-ITCH,DIPHENHYD, WITH ZINC) cream Yes Yes Sig: Apply to affected area three times a day as needed for itching/rash. epoetin jacki 10,000 unit/mL injection Unknown No No Sig: Inject 1 mL subcutaneously 3 Times weekly with dialysis. escitalopram oxalate (LEXAPRO) 20 mg tablet Yes Yes Sig: Take 20 mg by mouth once daily. glucagon (GLUCAGEN) 1 mg injection Yes Yes Sig: Inject 1 mg intramuscularly as needed. For symptomatic hypoglycemia not responsive to oral intervention. Notify MEAT CUTTER/ guaiFENesin (ROBITUSSIN) 100 mg/5 mL syrup Yes Yes Sig: Take 10 mL by mouth every 4 hours as needed for cough. hydrALAZINE (APRESOLINE) 50 mg tablet 06/15/2024 Yes Yes Sig: Take 50 mg by mouth three times a day. insulin lispro (ADMELOG) 100 unit/mL injection Yes Yes Sig: Inject 5 Units subcutaneously three times a day before meals. In addition to sliding scale if B-200 = 2 units 201-250 = 3 units 251-300 = 4 units 301-350 = 5 units 351-400 = 6 units 401-450 = 7 untis levothyroxine (SYNTHROID) 150 mcg tablet Yes Yes Sig: Take 150 mcg by mouth daily before breakfast. melatonin 3 mg tablet Yes Yes Sig: Take 9 mg by mouth daily at bedtime. menthol (BIOFREEZE, MENTHOL,) 4 % topical gel Yes Yes Sig: Apply to bilateral shoulders ever morning and at bedtime nystatin (MYCOSTATIN) powder Yes Yes Sig: Apply to groin and abdominal folds topically every 12 hours as needed for skin irritation ondansetron (ZOFRAN) 4 mg tablet Yes Yes Sig: Take 4 mg by mouth every 8 hours as needed for nausea/vomiting. 4 MG by mouth every six hours as needed pantoprazole DR (PROTONIX) 40 mg tablet Yes Yes Sig: Take 40 mg by mouth once daily. polyethylene glycol 3350 17 gram packet No Yes Sig: Take 1 Packet by mouth once daily as needed. Dissolve dose in 4 - 8 ounces of liquid and take as directed. senna-docusate (SENNA PLUS) 8.6-50 mg per tablet 06/14/2024 Yes Yes Sig: Take 1 tablet by mouth two times a day. sevelamer (RENAGEL) 800 mg tablet 06/14/2024 Yes Yes Sig: Take 2,400 mg by mouth three times a day. tacrolimus IR (PROGRAF) 1 mg capsule Yes Yes Sig: Take 2 mg by mouth two times a day. Facility-Administered Medications: None Su Palacios RPh 06/16/2024 NUTRITION Observed: 06/16/2024 12:43 PM Status: COMPLETED Source: [facility] ID: [id number] Author: MARA HAN RD Service: Nutrition Therapy Author Type: Registered Dietitian Type: Nutrition Filed: 06/16/2024 12:45 Note Text: NUTRITION THERAPY INITIAL ASSESSMENT SERVICE DATE: 06/16/2024 SERVICE TIME: 9:30am Nutrition Assessment: Recommended Malnutrition Diagnosis: No Malnutrition Identified In the context of: Chronic Illness or Injury Nutrition Diagnosis: PES Statement: No diagnosis at this time Care Plan: Continue current diet Refer to: Crew Chief to Follow Vitamins and Minerals: Renal vitamin Assist pt with meal set up Monitor and Evaluation: Monitor bowel function, Meet greater than 75% of estimated needs, Monitor fluid/electrolyte balance, Monitor labs, I/Os, vital signs, weight Discharge Recommendations: Diet;Oral Supplements Diet: as tolerated Oral Supplements: high calorie, high protein oral nutrition supplements when PO intake is meeting <75% of estimated energy needs HPI: Per Austin Blackwell note on 06/15: This is a 38 year old male [place] resident with medical history of T2DM on insulin.c/b ESRD status failed kidney transplant back on IHD 2022 via AVF, bilateral retinal detachments 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 Who presents for cataract surgery, found to be hypertensive with systolic blood pressure: 230 and hyperkalemic with a potassium of 6.8. He was sent from ophthalmology to the ER. Hyprkalemia treated medically amlodipine and carvedilol given. Repeat potassium 6.4 EKG showed. peaked [facility] contacted and he will be dialyzed this evening Last dialysis was Saturday Intake History: Nutrition Intake Prior to Admission: Greater than 75% estimated energy needs greater than or equal to 1 month Declined nutrition supplements at this time Dosing Weight: 126 kg (277 lb 12.5 oz) Dosing Weight Type: Admit weight Estimated kilocalorie needs: 7757-0103 Calorie Calculation Method: 15-20 kcals/kg Estimated protein needs (grams): 80-96 Grams protein determined by: 1.0 - 1.2 g/kg, [place] body weight Diet Orders (From admission, onward) Start Ordered 06/15/24 1637 DIET RENAL START NOW Question: Renal Answer: 2400 MG K / 2400 MG NA 06/15/24 1637 Anthropometrics: Height: 185.4 cm (6' 0.99) Weight: 126 kg (277 lb 12.5 oz) Body mass index is 36.66 kg/m?. Weight change percentage over time: 4.8% weight loss X 8 months per [facility] records Weight Change: Not clinically significant weight loss Physical Exam: Subcutaneous fat loss: No Subcutaneous Fat Loss Muscle loss: No Muscle Loss Potential micronutrient deficiency: No deficiency identified Edema/Ascites: Generalized GI Symptoms: None Functional Status: Not related to malnutrition status Potential Signs of Inflammation: Chronic condition, Hyperglycemia MNT Billing: $ Initial Assessment: 1-15 minutes SIGNATURE: Mara Han RD PATIENT NAME: China Guillen DATE: June 16, 2024 TIME: 12:43 PM CONSULT Observed: 06/16/2024 12:02 PM Status: COMPLETED Source: [facility] ID: [id number] Author: SHARON DALY APRN.MEAT CUTTER Service: Wound Care Team Author Type: Nurse Practitioner Type: Consults Filed: 06/16/2024 12:21 Note Text: WOUND CARE SERVICE TRENCH TRIMMER FINE CONSULT NOTE SERVICE DATE: 06/16/2024 SERVICE TIME: 833 Woud Consult (From admission, onward) Start Ordered 06/16/24 0100 Wound Care Consult ONCE Electronically Signed By: Gila Blair APRN.CNP [ ] 06/16/24 0050 CHIEF COMPLAINT: I do have wound on the bottom, and I also have this area to the belly button Subjective Patient is seen at the request of Gila Blair APRN.CNP for my opinion regarding a wound to the ischium. My final recommendations will be communicated back to the requesting physician by way of copy of this note or shared electronic medical record. HISTORY OF PRESENT ILLNESS: China Guillen is a 38 year old male is being seen with the admitting diagnosis of Hyperkalemia [E87.5] being managed by primary team. Patient admitted with a healing stage 4 pressure injury to the left ischium, area with macerated scar tissue noted, area is almost healed. Area to the coccyx/sacrum with MASD, no pressure injury noted at this time, area is healed. Pt states he has been dealing with these wounds for sometime now, denies pain to the areas. Pt with a full thickness wound to the right plantar foot, pt follows with Podiatry outpatient, Podiatry saw pt this admission and gave recommendations for care of the wound. Recommend the patient follow with wound clinic/[facility] outpatient to further manage and care for wound/s upon discharge. REVIEW OF SYSTEMS: GENERAL: No weight loss, malaise or fevers. RESPIRATORY: Negative for cough, SOB, or CUEVAS CARDIOVASCULAR: Hx CHF GI: No nausea, vomiting, or diarrhea : No history of dysuria, frequency or incontinence SKIN: Negative for lesions, rash, and itching., See wound documentation PAST MEDICAL HISTORY Diagnosis Date Acquired absence of left leg above knee (HCC) Acquired absence of other right toe(s) (HCC) Acute infarction of spinal cord (HCC) Acute kidney failure, unspecified (HCC) Acute osteomyelitis of left ankle or foot (HCC) Acute pulmonary edema (HCC) Anemia Anemia in chronic kidney disease (CKD) Body mass index 40.0-44.9, adult (HCC) Cerebral infarction due to unspecified occlusion or stenosis of unspecified cerebral artery (HCC) Chronic kidney disease (CKD), stage IV (severe) (HCC) Chronic systolic (congestive) heart failure (HCC) Congestive heart failure (CHF) (HCC) Dependence on renal dialysis (HCC) Depression Diabetes mellitus with chronic kidney disease (HCC) End stage renal disease (HCC) ESRD (end stage renal disease) ([facility]) Essential hypertension GERD (gastroesophageal reflux disease) Heart failure ([facility]) HLD (hyperlipidemia) Hyperkalemia Hyperlipidemia Hypertension Hypertensive heart and chronic kidney disease with heart failure and stage 1 through stage 4 chronic kidney disease, or chronic kidney disease (HCC) Hypo-osmolality and hyponatremia Hypomagnesemia Hypothyroidism Insomnia Insomnia Kidney transplant failure Kidney transplant status FPC current use of insulin ([facility]) Major depressive disorder, recurrent, unspecified ([facility]) Mood disorder (HCC) Morbid (severe) obesity due to excess calories ([facility]) Muscle weakness Neurogenic bowel Neurogenic bowel, not elsewhere classified Neuromuscular dysfunction of bladder Neuromuscular dysfunction of bladder Neuropathy Non-pressure chronic ulcer of other part of unspecified foot with unspecified severity ([facility]) Obstructive sleep apnea Osteomyelitis of vertebra, sacral and sacrococcygeal region ([facility]) Other disorders of phosphorus metabolism Other idiopathic peripheral autonomic neuropathy Other pericardial effusion (noninflammatory) Other pulmonary embolism without acute cor pulmonale, unspecified chronicity (HCC) Paraplegia (HCC) Paraplegia, incomplete ([facility]) Penile erosion 04/23/2023 Pressure ulcer of ischium, stage 4 ([facility]) Pressure ulcer of left buttock, unspecified stage Right foot ulcer ([facility]) Sepsis ([facility]) Type 2 diabetes ([facility]) Unspecified protein-calorie malnutrition ([facility]) UTI (urinary tract infection) Vitamin D deficiency PAST SURGICAL HISTORY Procedure Laterality Date COLOSTOMY TRANSPLANTATION OF KIDNEY WOUND DEBRIDEMENT HX 4 times of the wound Social History Tobacco Use Smoking status: Never Smokeless tobacco: Never Vaping Use Vaping status: Never Used Substance Use Topics Alcohol use: Never Drug use: Never FAMILY HISTORY Problem Relation Age of Onset Diabetes Mother No Known Problems Father No Known Problems Sister No Known Problems Brother No Known Problems Maternal Grandmother No Known Problems Maternal Grandfather No Known Problems Paternal Grandmother No Known Problems Paternal Grandfather MEDICATIONS: Current Facility-Administered Medications Medication Dose Route Frequency mycophenolate mofetil 1,000 mg cap(s) (CELLCEPT) 1,000 mg ORAL BID aspirin, enteric coated 81 mg tab(s) 81 mg ORAL DAILY amLODIPine 5 mg tab(s) (NORVASC) 5 mg ORAL DAILY atorvastatin 80 mg tab(s) (LIPITOR) 80 mg ORAL AT BEDTIME carvedilol 50 mg tab(s) (COREG) 50 mg ORAL BID w MEALS cloNIDine HCl 0.2 mg tab(s) (CATAPRES) 0.2 mg ORAL BID hydrALAZINE 50 mg tab(s) (APRESOLINE) 50 mg ORAL TID insulin glargine-yfgn soln 25 Units (SEMGLEE) 25 Units SUBCUTANEOUS AT BEDTIME pantoprazole DR 40 mg tab(s) (PROTONIX) 40 mg ORAL DAILY sodium bicarbonate 1,300 mg tab(s) 1,300 mg ORAL BID escitalopram oxalate 10 mg tab(s) (LEXAPRO) 10 mg ORAL DAILY traZODone 50 mg tab(s) (DESYREL) 50 mg ORAL AT BEDTIME colchicine 0.6 mg tab(s) 0.6 mg ORAL MON and RAHEEM gabapentin 300 mg cap(s) (NEURONTIN) 300 mg ORAL DAILY (7 AM) gabapentin 600 mg tab(s) (NEURONTIN) 600 mg ORAL AT BEDTIME levothyroxine 150 mcg (SYNTHROID) 150 mcg ORAL BEFORE BREAKFAST DAILY predniSONE 5 mg tab(s) (DELTASONE) 5 mg ORAL DAILY calcitriol 0.5 mcg cap(s) (ROCALTROL) 0.5 mcg ORAL MO-WE-FR melatonin 3 mg tab(s) 3 mg ORAL AT BEDTIME midodrine 10 mg tab(s) (PROAMATINE) 10 mg ORAL MO-WE-FR dextrose 15 gram/32 mL 15 g (TRUEPLUS) 15 g ORAL PRN Or glucagon 1 mg injection 1 mg INTRAMUSCULAR PRN Or dextrose 10% iv bolus 12.5 g INTRAVENOUS PRN insulin lispro injection (rapid acting) (ADMElog) SUBCUTANEOUS w MEALS insulin glargine 25 Units pen (long acting) 25 Units SUBCUTANEOUS AT BEDTIME tacrolimus IR 2 mg cap(s) (PROGRAF) 2 mg ORAL q 12 H 6a/6p Facility-Administered Medications Ordered in Other Encounters Medication Dose Route Frequency hydrALAZINE injection (APRESOLINE) INTRAVENOUS PRN ALLERGIES No Known Allergies Objective PHYSICAL EXAM: BP 191/110 Pulse 87 Temp (Src) 97.7 (Oral) Resp 18 Ht 6' .992 (1.85m) Wt 277 lb 12.5 oz (126.0kg) SpO2 98% BMI 36.66 kg/(m2). O2 Therapy: Nasal Cannula, Liters: 3.00 PHYSICAL EXAMINATION: General appearance: Alert, in no acute distress, pleasant and cooperative Skin: Skin color, texture, turgor normal, no suspicious rashes or lesions, wounds (See below) Joe score: 16 Extremities: L- BKA Musculoskeletal: 1 assist with turns in bed Neuro: Oriented X 3 Presenting wound information: Wound 06/15/24 2300 Diabetic Ulcer Foot Right;Lateral;Plantar (Active) Assessments 06/16/2024 8:38 AM Wound Image Site Assessment Purple;Red;[place];Brown Monie-Wound Assessment Calloused;Dry;Intact Drainage Description Serosanguineous Drainage Amount Scant Odor None Dressing Foam- Adhesive Dressing Changed New Dressing Status Clean;Dry;Intact No associated orders. Wound 06/16/24 0000 Traumatic Umbilicus Inner (Active) Assessments 06/16/2024 8:41 AM Wound Image Site Assessment [place];Red;White Monie-Wound Assessment Moist ;[place] Wound Length (cm) 0.4 cm Wound Width (cm) 0.6 cm Wound Surface Area (cm2) 0.24 cm2 Wound Depth (cm) 0.3 cm Wound Volume (cm3) 0.072 cm3 Drainage Description Serosanguineous Drainage Amount Small Odor Mild Monie-Wound Treatment Skin Prep Treatments Cleansed Dressing Aquacel;Foam- Adhesive Dressing Changed Changed Dressing Status Clean;Dry;Intact No associated orders. Wound 06/16/24 0834 Moisture Coccyx (Active) Assessments 06/16/2024 8:37 AM Wound Image Site Assessment Maceration;[place] Monie-Wound Assessment Scarred;Moist Drainage Description Colorless Drainage Amount Scant Odor None Treatments Cleansed;Open to Air No associated orders. Wound 06/16/24 0837 Pressure Injury Ischium Left (Active) Assessments 06/16/2024 8:37 AM Wound Image IF PATIENT HAS A PRESSURE INJURY: WHEN WAS IT ACQUIRED? (Document one time during this admission) Present on Admission during this Encounter Pressure Injury Stage Stage 4 (Healing) Site Assessment [place];Maceration Monie-Wound Assessment Maceration;Moist ;Scarred Wound Length (cm) 0.5 cm Wound Width (cm) 0.5 cm Wound Surface Area (cm2) 0.25 cm2 Wound Depth (cm) 0.2 cm Wound Volume (cm3) 0.05 cm3 Drainage Description Colorless Drainage Amount Scant Odor None Monie-Wound Treatment Skin Prep Treatments Cleansed Dressing Silver Alginate (AG);Foam- Adhesive Dressing Changed Changed Dressing Status Clean;Dry;Intact No associated orders. DATA Diagnostic tests reviewed for today's visit: Wound photo Most recent labs and imaging results. Impression/Recommendations Impression Left ischium- Healing Stage 4 pressure injury- POA - Umbilicus- Full thickness wound - Coccyx- Moisture associated skin damage - Right plantar foot- Diabetic foot ulcer (Being managed and followed by Podiatry) Recommendations - Recommend the patient follow with wound clinic/[facility] outpatient to further manage and care for wound/s upon discharge. Plan - Left ischium - Remove old dressing, cleanse wound with normal saline/wound cleanser and then dry. Apply 3M Skin Barrier or ConvaTec skin barrier wand to the monie-wound skin and allow to dry. Apply Biatain Alginate Ag to the base of the wound and cover with a foam adhesive. Change daily and as needed - Umbilicus - Remove old dressing, cleanse wound with normal saline/wound cleanser and then dry. Gently fill the wound with Vashe ([place] # [id number]) moistened 1/2 NuGuaze and cover with a foam adhesive. Change BID and as needed. - Coccyx- Apply Critic-aid Clear to perianal area and coccyx extending onto bilateral buttocks BID and as needed. - Right plantar foot- (Orders per Podiatry)- Please dress right foot daily with betadine soaked gauze 4x3 or 4x4, dry 4x3 or 4x4 gauze, ABD, Kerlix, and ARMINDA Prevention - Right heel- Apply ConvaTec skin barrier wand daily. - Obtain Jean-Ramesh heel protectors to Right lower extremity, to off-load heel, while in bed. (oracle number [id number]) - Obtain Medline Comfort [place] Sheet (oracle number [id number]) and Turning wedge (oracle number [id number]) to off-load patient's coccyx/ischium every 2 hours. - Maintain bed with New Bizimply Bed IsoTour Blower, for low air-loss feature. - Nutrition consult advised for optimized wound healing. - WCCT will continue to follow patient. Please reconsult if wounds worsen. Barriers to Healing: Body habitus, Comorbid conditions, Mobility, and Moisture Pressure Injury Prevention: Heel offloading, Low air loss surface, Moisture management, Redistribution surface, Turn schedule, and Turning positioner/wedge Counseling Provided: Prevention, Dressing/ointments, Observations Follow Up: Information provided to Patient, Wound care will continue to follow patient, reconsult if wounds worsens. PHOTOGRAPHY: A photo was taken of the patient's wound(s). Photos can be found in Chart Review under the Scanned Docs tab in [facility]. The purpose of the photo(s) is to optimize the patient's medical care and allow a visual aid to their wound evaluation and progress. Photo was taken of: Coccyx, Ischium, Foot, Abdomen Thank you for including me in the care of this patient. Please re-consult our service if further wound care needs arise. I spent a total of 45 minutes on the date of the service which included preparing to see the patient, [id number] patient care, completing clinical documentation, performing a medically appropriate examination, counseling and educating the patient/family/caregiver, and communicating with other HCPs (not separately reported). SIGNATURE: Sharon Daly, MSN, TRENCH TRIMMER FINE, MEAT CUTTER, CWOCN PATIENT NAME: China Guillen DATE: June 16, 2024 TIME: 12:02 PM CONSULT PROG Observed: 06/16/2024 11:44 AM Status: COMPLETED Source: [facility] ID: [id number] Author: LUIS A MOHAN PA-C Service: Nephrology Author Type: Physician Mineral Engineer Type: Consult Progress Note Filed: 06/16/2024 14:54 Note Text: Department of Kidney Medicine Medical Specialties [facility] NEPHROLOGY CONSULT SERVICE PROGRESS NOTE INTERVAL HISTORY: - completed 2hr of HD overnight URR 36% - rebound K 5.9 will dialyze again today MEDICATIONS: Current Facility-Administered Medications Medication Dose Route Frequency mycophenolate mofetil 1,000 mg cap(s) (CELLCEPT) 1,000 mg ORAL BID aspirin, enteric coated 81 mg tab(s) 81 mg ORAL DAILY amLODIPine 5 mg tab(s) (NORVASC) 5 mg ORAL DAILY atorvastatin 80 mg tab(s) (LIPITOR) 80 mg ORAL AT BEDTIME carvedilol 50 mg tab(s) (COREG) 50 mg ORAL BID w MEALS cloNIDine HCl 0.2 mg tab(s) (CATAPRES) 0.2 mg ORAL BID hydrALAZINE 50 mg tab(s) (APRESOLINE) 50 mg ORAL TID insulin glargine-yfgn soln 25 Units (SEMGLEE) 25 Units SUBCUTANEOUS AT BEDTIME pantoprazole DR 40 mg tab(s) (PROTONIX) 40 mg ORAL DAILY sodium bicarbonate 1,300 mg tab(s) 1,300 mg ORAL BID escitalopram oxalate 10 mg tab(s) (LEXAPRO) 10 mg ORAL DAILY traZODone 50 mg tab(s) (DESYREL) 50 mg ORAL AT BEDTIME colchicine 0.6 mg tab(s) 0.6 mg ORAL MON and RAHEEM gabapentin 300 mg cap(s) (NEURONTIN) 300 mg ORAL DAILY (7 AM) gabapentin 600 mg tab(s) (NEURONTIN) 600 mg ORAL AT BEDTIME levothyroxine 150 mcg (SYNTHROID) 150 mcg ORAL BEFORE BREAKFAST DAILY predniSONE 5 mg tab(s) (DELTASONE) 5 mg ORAL DAILY calcitriol 0.5 mcg cap(s) (ROCALTROL) 0.5 mcg ORAL MO-WE-FR melatonin 3 mg tab(s) 3 mg ORAL AT BEDTIME midodrine 10 mg tab(s) (PROAMATINE) 10 mg ORAL MO-WE-FR dextrose 15 gram/32 mL 15 g (TRUEPLUS) 15 g ORAL PRN Or glucagon 1 mg injection 1 mg INTRAMUSCULAR PRN Or dextrose 10% iv bolus 12.5 g INTRAVENOUS PRN insulin lispro injection (rapid acting) (ADMElog) SUBCUTANEOUS w MEALS insulin glargine 25 Units pen (long acting) 25 Units SUBCUTANEOUS AT BEDTIME Facility-Administered Medications Ordered in Other Encounters Medication Dose Route Frequency hydrALAZINE injection (APRESOLINE) INTRAVENOUS PRN ALLERGIES: Patient has no known allergies. PHYSICAL EXAM: BP 191/110 Pulse 87 Temp 36.5 ?C (97.7 ?F) (Oral) Resp 18 Ht 185.4 cm (6' 0.99) Wt 126 kg (277 lb 12.5 oz) SpO2 98% BMI 36.66 kg/m? Intake/Output Summary (Last 24 hours) at 06/16/2024 1144 Last data filed at 06/16/2024 1000 Gross per 24 hour Intake 640 ml Output 1795 ml Net -1155 ml GENERAL: adult male, alert, in no acute distress, cooperative, lying in bed SKIN: Skin color, texture, turgor normal. No rashes or lesions. HEENT: normocephalic, atraumatic NECK: no JVD, masses or bruits LUNGS: clear to auscultation. Good diaphragmatic excursion and normal respiratory effort. CARDIAC: RRR S1S2 ABDOMEN: soft, non-tender, non-distended. Normal bowel sounds. GENITOURINARY: no Hurst catheter EXTREMITIES:No edema, no joint swelling NEURO: AOx3, normal speech, muscle strength grossly intact PSYCH: normal judgement and insight ACCESS: AVF Lines, Drains, and Airways Line Duration Peripheral External Facility Right Wrist 24 Gauge -- days Drain Duration Surgically Inserted Drain Suprapubic Left Anterior Pelvic -- days Colostomy 04/17/22 LLQ 791 days Labs: Recent Labs 06/16/24 0545 06/15/24 2330 06/15/24 1421 06/15/24 1212 WBC 7.43 -- -- 6.87 HB 9.8* -- -- 10.3* HCT 31.1* -- -- 33.1* PLT 164 -- -- 161 NA 137 -- 137 137 K 5.9* 4.8 6.4* 6.8* CHLOR 96* -- 97* 98 CO2 25 -- 23 24 ANION 16* -- 17* 15 BUN 62* -- 76* 74* CREAT 7.68* -- 8.99* 8.64* GLUC 189* -- 229* 133* CA 9.4 -- 9.5 9.1 Recent Labs 06/15/24 2155 06/15/242007 BUNPR -- 81* BUNPO 52* -- Recent Labs 06/15/24 1043 LACT 1.0 ASSESSMENT: 38 year old male with pmhx of failed ddktxp back on HD since 2022, ESRD on IHD not dialyzed since last Saturday presenting for cataract surgery. VBG drawn today to check potassium and it revealed a K of 6.8. and BP 230/114. Sent to ED for management. Nephrology consulted for ESRD management. 1.ESRD s/p DDKT, failed kidney transplant now HD dependent -etiology of CKD: neurogenic bladder, obstructive nephropathy -2021-->treated for chronic active AMR and late 1B ACR; remained on dialysis until 07/20/22. Re-admitted in September 2022 with foot infection and JORDI; required dialysis for ~1 week (last HD 09/13/22). Baseline Scr 3-4's. -Scr 4.7 on this admission. Started on HD 10/12/22 for volume overload (moderate pericardial effusion on scan) and now ESRD - dialyzes at [facility] MWF via L AVF 2. Electrolytes: hyperK 3. Volume status: hypervolemia 4. Acid-base: stable 5. Ca/P/PTH,Bone mineral disease: - Not on phos binders. Update levels, on calcitriol 6. Anemia of CKD at goal PLAN: - HD today again 3hr for hyperkalemia control - regarding IS: pt states he is still on pred/MMF/tac, last tac dispensed at 2mg BID, will confirm mmf dosing with [facility] (unit closed today) -> initially reported only mmf/pred but would be very odd given he is hoping to be relisted for transplant and typically mmf is held upon restarting hd and would recommend weaning down to just pred 5 and tac with trough goal 3-5 - next session Saturday to maintain MWF schedule - continue pred 5mg daily Standard ESRD recommendations and precautions: - Strict IANDOs and Daily weight - Consider a RENAL Diet for HD patients - Fluid restriction < 1 L - Start Nephrocap or other renal multivitamin to replace water-soluble vitamins lost during dialysis - Avoid Lovenox, Demerol, Morphine, K-containing IVF, Mg- or Phos- containing enemas Consent for BEAUTY ARTIST: ESRD Luis A Mohan PA-C Department of Kidney Medicine [facility] June 16, 2024 11:44 AM PAGER # [phone] Disclosures: Parts of the current progress note may have been copied from a previous note. FOR AFTER HOUR CONCERNS BETWEEN 5PM - 7AM CONTACT ON-CALL NEPHROLOGY FELLOW [phone] PLAN OF CARE Observed: 06/16/2024 11:11 AM Status: COMPLETED Source: [facility] HNO ID: [id number] Author: LAKIA BRYANT, Shanna Service: Pharmacy Author Type: Station Detective Type: Plan of Care Filed: 06/16/2024 11:11 Note Text: Insurance investigation completed Patient has active prescription insurance: Yes - Patient's insurance is in-network with [facility] Insurance loaded into [place]: Yes Test claim was completed to verify insurance is active: Successful Any questions, please reach out to your medication sponsorship coordinator. Lakia Bryant CPhT Medication Medical Office Professional Instructor [phone] CONSULT Observed: 06/16/2024 11:08 AM Status: COMPLETED Source: [facility] HNO ID: [id number] Author: ANDERSON KHAN DPM Service: Podiatry Author Type: Physician Type: Consults Filed: 06/16/2024 12:33 Note Text: PODIATRIC MEDICINE AND SURGERY CONSULT NOTE Service Date: 06/16/2024 Admit Date: 06/15/2024 Service Time: 11:08 AM Hospital Day: 0 day(s) Consulting Service: GIM 3 Requesting Provider: Carrie Salgado MD Primary Care Provider:Lang Peres DO Opinion/advice regarding: R foot wound Background: China Guillen is a 38 year old male patient with the medical history significant for T2DM, ESRD (failed kidney transplant 2022) now with AVF, B/L retinal detachments, neuropathy (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 Admitted for Hyperkalemia CC: R foot wound HPI: Diabetic patient who is followed by portable pinch riveter at facility for right foot plantar wound. Woun was debrided of nonviable, hyperkeratotic callus to healthy skin. Minimal bleeding noted. Wound is pinpoint with macerated skin to the plantar aspect of lateral half of foot. 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 ATTENDING PLAN OF CARE: Patient seen with resident. Following debridement wound looks much better. Will continue to manage this conservatively with local wound care. Podiatry to sign off if there are any acute changes or further issues please feel free to reconsult. Wound care orders will be placed. Assessment/Plan ASSESSMENT/PLAN: Diagnosis #1: Diabetic ulcer - HbA1c: 7.6 - Imaging illustrates none to date - Wound Care: Betadine soaked gauze 4x3 or 4x4, dry 4x3 or 4x4 gauze, ABD, Kerlix, ARMINDA Do this daily. Nursing communications placed for assistance with dressing changes. Appreciate their help. - ADL/Precautions: Non-weight bearing (NWB) to the LLE. Heel WB for transfers only.. Patient states that he uses wheeled chair Prevalon boot on when in bed. Plan: - Recommend daily dressing changes, nursing orders to be placed - Recommend xray to right foot to ruse out underlying alma involvement - No Podiatric surgical intervention at this time - Podiatry will continue to follow peripherally, however page [place] Podiatry [place] [phone] if there is any changes in patient condition, questions, or concerns. Thank you for the very interesting consult. Review of Systems: Patient is AAO x3. No acute distress. PAIN ASSESSMENT: Negative for pain, history of chronic pain, or current treatment for a chronic pain condition. GENERAL: No weight loss, malaise or fevers HEENT: Negative for frequent or significant headaches, No changes in hearing or vision, no nose bleeds or other nasal problems NECK: Negative for lumps, goiter, pain and significant neck swelling RESPIRATORY: Negative for cough, hemoptysis, wheezing, COPD, dyspnea or shortness of breath CARDIOVASCULAR: Negative for chest pain, leg swelling, hypertension, CHF or palpitations GI: No nausea, vomiting, or diarrhea : No history of dysuria, frequency or incontinence MUSCULOSKELETAL: Negative for joint pain or swelling, back pain or muscle pain See HPI. PAST MEDICAL HISTORY Diagnosis Date Acquired absence of left leg above knee ([facility]) Acquired absence of other right toe(s) ([facility]) Acute infarction of spinal cord ([facility]) Acute kidney failure, unspecified ([facility]) Acute osteomyelitis of left ankle or foot ([facility]) Acute pulmonary edema (HCC) Anemia Anemia in chronic kidney disease (CKD) Body mass index 40.0-44.9, adult ([facility]) Cerebral infarction due to unspecified occlusion or stenosis of unspecified cerebral artery ([facility]) Chronic kidney disease (CKD), stage IV (severe) ([facility]) Chronic systolic (congestive) heart failure (HCC) Congestive heart failure (CHF) (HCC) Dependence on renal dialysis (HCC) Depression Diabetes mellitus with chronic kidney disease (HCC) End stage renal disease ([facility]) ESRD (end stage renal disease) ([facility]) Essential hypertension GERD (gastroesophageal reflux disease) Heart failure ([facility]) HLD (hyperlipidemia) Hyperkalemia Hyperlipidemia Hypertension Hypertensive heart and chronic kidney disease with heart failure and stage 1 through stage 4 chronic kidney disease, or chronic kidney disease (HCC) Hypo-osmolality and hyponatremia Hypomagnesemia Hypothyroidism Insomnia Insomnia Kidney transplant failure Kidney transplant status FPC current use of insulin (HCC) Major depressive disorder, recurrent, unspecified (HCC) Mood disorder (HCC) Morbid (severe) obesity due to excess calories ([facility]) Muscle weakness Neurogenic bowel Neurogenic bowel, not elsewhere classified Neuromuscular dysfunction of bladder Neuromuscular dysfunction of bladder Neuropathy Non-pressure chronic ulcer of other part of unspecified foot with unspecified severity ([facility]) Obstructive sleep apnea Osteomyelitis of vertebra, sacral and sacrococcygeal region (HCC) Other disorders of phosphorus metabolism Other idiopathic peripheral autonomic neuropathy Other pericardial effusion (noninflammatory) Other pulmonary embolism without acute cor pulmonale, unspecified chronicity (HCC) Paraplegia (HCC) Paraplegia, incomplete (HCC) Penile erosion 04/23/2023 Pressure ulcer of ischium, stage 4 ([facility]) Pressure ulcer of left buttock, unspecified stage Right foot ulcer ([facility]) Sepsis ([facility]) Type 2 diabetes ([facility]) Unspecified protein-calorie malnutrition ([facility]) UTI (urinary tract infection) Vitamin D deficiency PAST SURGICAL HISTORY Procedure Laterality Date COLOSTOMY TRANSPLANTATION OF KIDNEY WOUND DEBRIDEMENT HX 4 times of the wound Current Facility-Administered Medications Medication Dose Route Frequency mycophenolate mofetil 1,000 mg cap(s) (CELLCEPT) 1,000 mg ORAL BID aspirin, enteric coated 81 mg tab(s) 81 mg ORAL DAILY amLODIPine 5 mg tab(s) (NORVASC) 5 mg ORAL DAILY atorvastatin 80 mg tab(s) (LIPITOR) 80 mg ORAL AT BEDTIME carvedilol 50 mg tab(s) (COREG) 50 mg ORAL BID w MEALS cloNIDine HCl 0.2 mg tab(s) (CATAPRES) 0.2 mg ORAL BID hydrALAZINE 50 mg tab(s) (APRESOLINE) 50 mg ORAL TID insulin glargine-yfgn soln 25 Units (SEMGLEE) 25 Units SUBCUTANEOUS AT BEDTIME pantoprazole DR 40 mg tab(s) (PROTONIX) 40 mg ORAL DAILY sodium bicarbonate 1,300 mg tab(s) 1,300 mg ORAL BID escitalopram oxalate 10 mg tab(s) (LEXAPRO) 10 mg ORAL DAILY traZODone 50 mg tab(s) (DESYREL) 50 mg ORAL AT BEDTIME colchicine 0.6 mg tab(s) 0.6 mg ORAL MON and RAHEEM gabapentin 300 mg cap(s) (NEURONTIN) 300 mg ORAL DAILY (7 AM) gabapentin 600 mg tab(s) (NEURONTIN) 600 mg ORAL AT BEDTIME levothyroxine 150 mcg (SYNTHROID) 150 mcg ORAL BEFORE BREAKFAST DAILY predniSONE 5 mg tab(s) (DELTASONE) 5 mg ORAL DAILY calcitriol 0.5 mcg cap(s) (ROCALTROL) 0.5 mcg ORAL MO-WE-FR melatonin 3 mg tab(s) 3 mg ORAL AT BEDTIME midodrine 10 mg tab(s) (PROAMATINE) 10 mg ORAL MO-WE-FR dextrose 15 gram/32 mL 15 g (TRUEPLUS) 15 g ORAL PRN Or glucagon 1 mg injection 1 mg INTRAMUSCULAR PRN Or dextrose 10% iv bolus 12.5 g INTRAVENOUS PRN insulin lispro injection (rapid acting) (ADMElog) SUBCUTANEOUS w MEALS insulin glargine 25 Units pen (long acting) 25 Units SUBCUTANEOUS AT BEDTIME Facility-Administered Medications Ordered in Other Encounters Medication Dose Route Frequency hydrALAZINE injection (APRESOLINE) INTRAVENOUS PRN ALLERGIES No Known Allergies FAMILY HISTORY Problem Relation Age of Onset Diabetes Mother No Known Problems Father No Known Problems Sister No Known Problems Brother No Known Problems Maternal Grandmother No Known Problems Maternal Grandfather No Known Problems Paternal Grandmother No Known Problems Paternal Grandfather Social History Tobacco Use Smoking status: Never Smokeless tobacco: Never Vaping Use Vaping status: Never Used Substance Use Topics Alcohol use: Never Drug use: Never Objective OBJECTIVE: BP 191/110 Pulse 87 Temp 36.5 ?C (97.7 ?F) (Oral) Resp 18 Ht 185.4 cm (6' 0.99) Wt 126 kg (277 lb 12.5 oz) SpO2 98% BMI 36.66 kg/m? Patient is alert and oriented x 3 in NAD. Vascular: audible Dorsalis Pedis and Posterior Tibial signals R Capillary Fill time < 3 seconds to R digits Skin temperature warm to cool tibial tuberosity to the digits B/L RLE edema No varicosities Neurological: Epicritic sensation absent B/L Protective sensation via monofilament testing absent B/L Vibratory sensation absent at B/L hallux IPJ Negative Babinski B/L Musculoskeletal/Orthopaedic: Structural Deformities: L BKA 5/5 muscle strength Dorsiflexion, Plantarflexion, Inversion, Eversion R ROM present pedal and ankle joints R Dermatological: Skin appears well hydrated and supple with good temperature, texture, turgor. Pinpoint wound with maceration to majority of plantar foot laterally. No clinical signs of infection including malodor, purulence, or erythema. Verbal consent obtained prior to obtaining photo. All efforts were made to exclude PHI. LABS: Recent Labs 06/16/24 0545 06/15/24 2330 06/15/24 1421 06/15/24 1212 WBC 7.43 -- -- 6.87 HB 9.8* -- -- 10.3* HCT 31.1* -- -- 33.1* PLT 164 -- -- 161 NA 137 -- 137 137 K 5.9* 4.8 6.4* 6.8* CHLOR 96* -- 97* 98 CO2 25 -- 23 24 CREAT 7.68* -- 8.99* 8.64* BUN 62* -- 76* 74* GLUC 189* -- 229* 133* CA 9.4 -- 9.5 9.1 Test 06/16/2024 WBC WBC (k/uL) Date Value 06/16/2024 7.43 A1C No results found for: HBA1C CRP No results found for: CRP ESR No results found for: WSR INR INR (no units) Date Value 10/08/2022 1.2 APTT APTT (sec) Date Value 10/11/2022 65.8 (H) MICROBIOLOGY: Positive Micro-30 Days No results found for the last 720 hours. PATHOLOGY: IMAGING: Last XR Foot - Impression Only XR FOOT GENERAL 3V AP/LAT/OBL LEFT Exam End: 10/27/2022 11:20 AM (Final result) Impression: IMPRESSION: Acute osteomyelitis of the posterior calcaneus subjacent to a large heel wound. Last XR Ankle - Impression Only No resulted procedures found. Last CT Foot - Impression Only No resulted procedures found. Last CT Ankle - Impression Only No resulted procedures found. Last MRI Foot - Impression Only MRI FOOT/TOES WO IVCON RIGHT Exam End: 03/09/2021 10:25 AM (Final result) Impression: IMPRESSION: Broad-based lateral plantar ulcer at the forefoot subjacent to the fourth and fifth metatarsal heads with surrounding cellulitis and myositis. Persistent lobule extends dorsally into the fourth metatarsal interspace distally. Slight progression of acute osteomyelitis involving the fifth metatarsal head and neck as well as the fifth proximal phalanx. Associated septic arthritis of the fifth MTP joint. Confluent marrow edema extends proximally into the proximal diaphysis of the fifth metatarsal. ... Last MRI Ankle - Impression Only MRI ANKLE WO IVCON LT Exam End: 09/07/2022 6:29 PM (Final result) Impression: IMPRESSION: Posterior heel ulcer with mid and posterior calcaneal osteomyelitis present. Diffuse subcutaneous soft tissue edema present. ... VASCULAR STUDIES: CARLOS/PVRs: Not obtained Thank you for allowing us to participate in the care of this patient Carrol Bledsoe DPM, PGY-1 Podiatry Campus Executive Director Pager: [phone] 06/16/2024 11:08 AM For questions after 5PM and on weekends, please page [phone]. I saw and evaluated the patient. Discussed with the resident and agree with resident's findings and plan as documented in the resident's note. Anderson Khan DPM CASE MGT INIT ANGEL Observed: 06/16/2024 10:47 AM Status: COMPLETED Source: [facility] HNO ID: [id number] Author: KATHERIN OLMOS RN Service: Care Management Author Type: Registered Nurse Type: Care Mgt Initial Assessment Filed: 06/16/2024 15:08 Note Text: CARE MANAGEMENT: ASSESSMENT AND DISCHARGE PLAN SERVICE DATE: June 16, 2024 SERVICE TIME: 10:47 AM PCP: Lang Peres DO Primary Contact: No emergency contact information on file. 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, Organized support group How do you manage to accomplish the following: Needs Assistance: Bathe/Shower;Meals/Meal Prep Dependent: Ambulation;Dress;Going to the bathroom;Medication Management;Transportation to appointments/community Current Services/Equipment Current Post-Acute Service(s): Dialysis Current Post-Acute Service(s) Provider: Padmaja cota site of ECF Discharge Planning Patient Goal(s): General wellness [place] of Choice Explained: [place] of Choice Given: Yes Level of Care Discussed: Other: See Comment (Return to prior [facility]) Are you interested in bedside delivery of your medications? 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 CM met with patient at bedside and discussed discharge planning needs. 6 Clicks is 10, currently on 4L nc. Patient states his oxygen basline needs are 3-4L daytime, 4-5L hours of sleep. Dependent on facility staff for ADL's including mobility transfers, however is able to make his needs known, self feed, and self bath; facility staff utilize Oxygen, Gerry Lift, and manual wheelchair DME. Has been a resident of [facility] for about 1 year. Per treatment team, Discharge is anticipated 06/17. Updated clinical sent. [facility] confirmed they are ready to accept the patient back, NO INSURANCE AUTHORIZATION NEEDED. MMT transport has been requested/tasked for 06/17 at 2pm and can be adjusted as needed. Facility and treatment team updated. CM to follow. SIGNATURE: Katherin Olmos RN PATIENT NAME: China Guillen DATE: June 16, 2024 TIME: 2:32 PM CBC PNL BLD AUTO Collected: 4 5:45 AM Status: F Source: [facility] Order Comment: Specimen Type : BLOOD SPECIMEN Ordering Facility: [facility] Address: [address] [place] [address] TYPE CODE TESTS RESULT OUT OF RANGE REFERENCE UNITS LAB 6690-2([facility]) WBC # Bld Auto 7.43 3.70-11.00 k/uL LAB 789-8(LOINC) RBC # Bld Auto 3.46 Low 4.20-6.00 m/uL LAB 718-7(INC) Hgb Bld-mCnc 9.8 Low 13.0-17.0 g/dL LAB 4544-3([facility]) Hct VFr Bld Auto 31.1 Low 39.0-51.0 % LAB 787-2([facility]) MCV RBC Auto 89.9 80.0-100.0 fL LAB 785-6([facility]) MCH RBC Qn Auto 28.3 26.0-34.0 pg LAB 786-4([facility]) MCHC RBC Auto-mCnc 31.5 30.5-36.0 g/dL LAB 27091-8([facility]) RDW RBC-Rto 16.8 High 11.5-15.0 % LAB 777-3([facility]) Platelet # Bld Auto 164 150-400 k/uL LAB 69191-1([facility]) PMV Bld Auto 11.8 9.0-12.7 fL LAB 771-6([facility]) nRBC # Bld Auto <0.01 <0.01 k/uL Performed By: #### 63109-4 # ### [facility] CLIA [id number] [address] [place] [address] [place] BAS METAB 2000 PNL SERPL Collected: 04/2024 5:45 AM Status: F Source: [facility] Order Comment: Specimen Type : BLOOD SPECIMEN Ordering Facility: [facility] Address: [address] [place] [address] TYPE CODE TESTS RESULT OUT OF RANGE REFERENCE UNITS LAB 2345-7([facility]) Glucose SerPl-mCnc 189 High 74-99 mg/dL Result Comment: The [place] Diabetes Association (ADA) provides guidance for cutoff values for fasting glucose and random glucose. The ADA defines fasting as no caloric intake for at least 8 hours. Fasting plasma glucose results between 100 to 125 mg/dL indicate increased risk for diabetes (prediabetes). Fasting plasma glucose results greater than or equal to 126 mg/dL meet the criteria for diagnosis of diabetes. In the absence of unequivocal hyperglycemia, results should be confirmed by repeat testing. In a patient with classic symptoms of hyperglycemia or hyperglycemic crisis, random plasma glucose results greater than or equal to 200 mg/dL meet the criteria for diagnosis of diabetes. Reference: Standards of Medical Care in Diabetes 2016, [place] Diabetes Association. Diabetes Care. 2016.39(Suppl 1). LAB 3094-0(LOINC) BUN SerPl-mCnc 62 High 9-24 mg/ dL LAB 2160-0(LOINC) Creat SerPl-mCnc 7.68 High 0.73-1.22 mg/dL LAB 2951-2(LOINC) Sodium SerPl-sCnc 137 136-144 mmol/L LAB 2823-3(LOINC) Potassium SerPl-sCnc 5.9 High 3.7-5.1 mmol/L LAB 2075-0(LOINC) Chloride SerPl-sCnc 96 Low 98-107 mmol/L LAB 2028-9(LOINC) CO2 SerPl-sCnc 25 22-30 mmo l/L LAB 66894-2(LOINC) Anion Gap SerPl-sCnc 16 High 8-15 mmol/L LAB 95213-1(LOINC) Calcium SerPl-mCnc 9.4 8.5-10.2 mg/dL LAB 27150-9(LOINC) Creatinine + eGFR Pnl SerPlBld 9 Low >=60 mL/min/1 .73m??? Result Comment: Estimated Gl omerular Filtration Rate (eGFR) is calculated using the 2020 CKD-EPI creatinine equation. This equation utilizes serum creatinine, sex, and age as parameters. The creatinine assay has traceable calibration to isotope dilution-mass spectrometry. Refer to KDIGO guidelines for clinical interpretation. In patients with unstable renal function, e.g. those with acute kidney injury, the eGFR may not accurately reflect actual GFR. Performed By: #### 61080-5, 2777-1 #### [facility] CLIA [id number] [address] [place] [address] [place] PHOSPHATE SERPL-MCNC Collected: 06/16/2024 5:45 AM S tatus: F Source: [facility] Order Comment: Specimen Type : BLOOD SPECIMEN Ordering Facility: [facility] Address: [address] [place] [address] TYPE CODE TESTS RESULT OUT OF RANGE REFERENCE UNITS LAB 2777-1(LOINC) Phosphate SerPl-mCnc 4.1 2.7-4.8 mg/dL Performed By: #### 84989-3, 2777-1 #### [facility] CLIA [id number] [address] [place] [address] OF TRUMAN POTASSIUM Collected: 11:30 PM Status: F Source: [facility] Order Comment: Specimen Type : BLOOD SPECIMEN Ordering Facility: [facility] Address: [address] [place] [address] TYPE CODE TESTS RESULT OUT OF RANGE REFERENCE UNITS LAB 2823-3(LOINC) Potassium SerPl-sCnc 4.8 3.7-5.1 mmol/L Performed By: #### K1 #### [facility] CLIA [id number] [address] [place] [address] OF [place]UMAN BUN P DIALYSIS SERPL-MCNC Collected: 06/15/2024 9:55 PM Status: F Source: [facility] Order Comment: Specimen Type : BLOOD SPECIMEN Ordering Facility: [facility] Address: [address] [place] [address] TYPE CODE TESTS RESULT OUT OF RANGE REFERENCE UNITS LAB 10138-8(LOINC) BUN p dialysis SerPl-mCnc 52 High 9-24 mg/dL LAB BUNRAT UREA REDUCTION RATIO WITH BUNPR 36 % Performed By: #### 15646-3 # ### [facility] CLIA [id number] [address] [place] [address] OF TRUMAN ED NOTE Observed: 06/15/2024 8:08 PM Status: COMPLETED Source: [facility] HNO ID: [id number] Author: ELENA PRABHAKAR RN Service: ? Author Type: Registered Nurse Type: ED Notes Filed: 06/15/2024 20:08 Note Text: Report given to DUSTIN Booth BUN PRE DIAL SERPL-MCNC Collected: 06/15/2024 8:08 PM Status: F Source: [facility] Order Comment: Specimen Type : BLOOD SPECIMEN Ordering Facility: [facility] Address: [address] [place] [address] TYPE CODE TESTS RESULT OUT OF RANGE REFERENCE UNITS LAB 31505-6(LOINC) BUN pre dial SerPl-mCnc 81 High 9-24 mg/dL Performed By: #### 49424-9 # ### [facility] CLIA [id number] [address] [place] [address] ED NOTE Observed: 06/15/2024 7:25 PM Status: COMPLETED Source: [facility] HNO ID: [id number] Author: ADRIEN BEAVER RN Service: Emergency Medicine Author Type: Registered Nurse Type: ED Notes Filed: 06/15/2024 19:59 Note Text: Assumed patient care. Report given from DUSTIN Hood. Report included current status of patient, chief compliant, and treatment plan. ED NOTE Observed: 06/15/2024 5:42 PM Status: COMPLETED Source: [facility] HNO ID: [id number] Author: ELENA PRABHAKAR RN Service: ? Author Type: Registered Nurse Type: ED Notes Filed: 06/15/2024 20:07 Note Text: Pt was stable, and not in acute distress. His ostomy bag was full and overflowing form the side. It was cleaned and changed to the appropriate size. He was put into a gown and cleaned up well. He is currently waiting for dialysis. HISTORY PHYSICAL Observed: 06/15/2024 5:03 PM Status: COMPLETED Source: [facility] HNO ID: [id number] Author: CALEB BLACKWELL MD Service: Hospital Medicine Author Type: Physician Type: H&P Filed: 06/15/2024 17:48 Note Text: DEPARTMENT OF HOSPITAL MEDICINE HISTORY AND PHYSICAL EXAM SERVICE DATE: 06/15/2024 SERVICE TIME: 5:03 PM Primary Care Physician: Lang Peres DO NIGHT AND WEEKEND COVERAGE: [facility] COVERAGE: Days: [phone], please page Caleb Blackwell for patient issues. 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 Who presents for cataract surgery, found to be hypertensive with systolic blood pressure: 230 and hyperkalemic with a potassium of 6.8. He was sent from ophthalmology to the ER. Hyprkalemia treated medically amlodipine and carvedilol given. Repeat potassium 6.4 EKG showed. peaked [facility] contacted and he will be dialyzed this evening Last dialysis was Saturday PAST MEDICAL HISTORY Diagnosis Date Acquired absence of left leg above knee ([facility]) Acquired absence of other right toe(s) ([facility]) Acute infarction of spinal cord ([facility]) Acute kidney failure, unspecified ([facility]) Acute osteomyelitis of left ankle or foot ([facility]) Acute pulmonary edema ([facility]) Anemia Anemia in chronic kidney disease (CKD) Body mass index 40.0-44.9, adult ([facility]) Cerebral infarction due to unspecified occlusion or stenosis of unspecified cerebral artery ([facility]) Chronic kidney disease (CKD), stage IV (severe) ([facility]) Chronic systolic (congestive) heart failure ([facility]) Congestive heart failure (CHF) ([facility]) Dependence on renal dialysis ([facility]) Depression Diabetes mellitus with chronic kidney disease ([facility]) End stage renal disease ([facility]) ESRD (end stage renal disease) ([facility]) Essential hypertension GERD (gastroesophageal reflux disease) Heart failure ([facility]) HLD (hyperlipidemia) Hyperkalemia Hyperlipidemia Hypertension Hypertensive heart and chronic kidney disease with heart failure and stage 1 through stage 4 chronic kidney disease, or chronic kidney disease ([facility]) Hypo-osmolality and hyponatremia Hypomagnesemia Hypothyroidism Insomnia Insomnia Kidney transplant failure Kidney transplant status 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 ([facility]) Major depressive disorder, recurrent, unspecified ([facility]) Mood disorder ([facility]) Morbid (severe) obesity due to excess calories ([facility]) Muscle weakness Neurogenic bowel Neurogenic bowel, not elsewhere classified Neuromuscular dysfunction of bladder Neuromuscular dysfunction of bladder Neuropathy Non-pressure chronic ulcer of other part of unspecified foot with unspecified severity (HCC) Obstructive sleep apnea Osteomyelitis of vertebra, sacral and sacrococcygeal region (HCC) Other disorders of phosphorus metabolism Other idiopathic peripheral autonomic neuropathy Other pericardial effusion (noninflammatory) Other pulmonary embolism without acute cor pulmonale, unspecified chronicity (HCC) Paraplegia (HCC) Paraplegia, incomplete (HCC) Penile erosion 04/23/2023 Pressure ulcer of ischium, stage 4 (HCC) Pressure ulcer of left buttock, unspecified stage Right foot ulcer (HCC) Sepsis (HCC) Type 2 diabetes (HCC) Unspecified protein-calorie malnutrition (HCC) UTI (urinary tract infection) Vitamin D deficiency PAST SURGICAL HISTORY Procedure Laterality Date COLOSTOMY TRANSPLANTATION OF KIDNEY WOUND DEBRIDEMENT HX 4 times of the wound FAMILY HISTORY Problem Relation Age of Onset Diabetes Mother No Known Problems Father No Known Problems Sister No Known Problems Brother No Known Problems Maternal Grandmother No Known Problems Maternal Grandfather No Known Problems Paternal Grandmother No Known Problems Paternal Grandfather Social History Tobacco Use Smoking status: Never Smokeless tobacco: Never Vaping Use Vaping status: Never Used Substance Use Topics Alcohol use: Never Drug use: Never PRIOR TO ADMISSION MEDICATIONS: (Not in a hospital admission) ALLERGIES No Known Allergies REVIEW OF SYSTEM: GENERAL: No weight loss, malaise or fevers HEENT: Not reviewed NECK: Not reviewed RESPIRATORY: Negative for cough, hemoptysis, wheezing, COPD, dyspnea or shortness of breath CARDIOVASCULAR: Negative for chest pain, leg swelling, hypertension, CHF or palpitations GI: No nausea, vomiting, or diarrhea HEMATOLOGY/LYMPHOLOGY: Negative for prolonged bleeding, bruising easily or swollen nodes ENDOCRINE: See HPI NEURO: SEE HPI Objective PHYSICAL EXAM: BP 161/76 Pulse 85 Temp (Src) 97.9 (Oral) Resp 21 Wt 278 lb 10.6 oz (126.4kg) SpO2 97% O2 Therapy: Nasal Cannula, Liters: 2 Physical Exam Performed: GENERAL: Alert, no distress, cooperative, Morbidly Obese OROPHARYNX: Clear Cardiac: regular rhythm and rate LUNGS: Clear to auscultation bilaterally ABDOMEN: Soft nontender colostomy in place SPT in place EXTREMITIES: L BKA NEURO: Parapalgia PRESSURE ULCERS: UNSTAGEABLE: Follow conditions location(s): multiple Lines, Drains, and Airways Drain Duration Colostomy 04/17/22 LLQ 790 days Reviewed Hurst and needs to be continued: REASONS: Acute urinary retention/obstruction DATA: Diagnostic tests reviewed for today's visit: Most recent EKG CBC: Recent Labs 06/15/24 1212 WBC 6.87 RBC 3.71* HB 10.3* HCT 33.1* PLT 161 MCV 89.2 MCH 27.8 MPV 10.8 CMP: Recent Labs 06/15/24 1421 NA 137 K 6.4* CHLOR 97* CO2 23 BUN 76* CREAT 8.99* GLUC 229* CA 9.5 ANION 17* Renal Panel: Recent Labs 06/15/24 1421 CREAT 8.99* BUN 76* GLUC 229* CA 9.5 CHLOR 97* K 6.4* CO2 23 NA 137 Assessment/Plan Problem List Hyperkalemia (POA: Yes) Pressure ulcer of ischium, left, stage IV (HCC) (POA: Yes) Obesity (BMI 30-39.9) (POA: Yes) Type 2 diabetes mellitus with polyneuropathy (HCC) (POA: Yes) Pressure ulcer of sacral region, stage 2 (HCC) (POA: Yes) Paraplegia (HCC) (POA: Yes) Type 2 diabetes (HCC) (POA: Yes) Neurogenic bowel (POA: Yes) Depression (POA: Yes) Kidney transplant status (POA: Yes) Cerebral infarction due to unspecified occlusion or stenosis of unspecified cerebral artery (HCC) (POA: Yes) HOSPITAL COURSE: This is a 38 year old male [place] resident with medical history of T2DM on insulin. 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 Who presents for cataract surgery, found to be hypertensive with systolic blood pressure: 230 and hyperkalemic with a potassium of 6.8. He was sent from ophthalmology to the ER. Hyprkalemia treated medically amlodipine and carvedilol given. Repeat potassium 6.4 EKG showed. peaked [facility] Nephrology unit contacted and he will be dialyzed this evening Last dialysis was Saturday06/12/24 Morbid Obesity Class 3 Principal Problem: Hyperkalemia Assessment AND Plan:Urgent Dialysis Today BMP postdialysis Continue dialysis Saturday Active Problems: Hypertension Continue Home meds Carvedilol 50 mg twice daily Hydralazine 50 mg TID Clonidine o.2 mg BID amlodipine 5 ng daily Kidney transplant status Assessment AND Plan: Kidney transplant failed now on HD Continue CellCept and prednisone no longer on tacrolimus Type 2 diabetes mellitus with polyneuropathy (HCC) Assessment AND Plan: Continue Lantus 25 units nightly and SSI #1 Cerebral infarction due to unspecified occlusion or stenosis of unspecified cerebral artery (HCC) Assessment AND Plan: Apixaban 2.5 mg again last dose 06/12/2024 anticipation of cataract surgery. Will continue to hold at this point. Continue aspirin 81 mg Neurogenic bowel Assessment AND PlanColostomy : Suprapubic catheter in place Depression Assessment AND Plan: Lexapro Medication Reconciliation: Needs to be verified partially reconciled with nurse at his facility Medication and Non-Pharmacologic VTE Prophylaxis/Anticoagulants 06/15/24 1637 activity - mobilize patient (oh,hi) VTE Prophylaxis: VTE prophylaxis appropriate Disposition: To be determined Plan of care discussed with Provider, RN, Patient SIGNATURE: Caleb Blackwell MD PATIENT NAME: China Guillen DATE: June 15, 2024 TIME: 5:03 PM ED NOTE Observed: 06/15/2024 5:00 PM Status: COMPLETED Source: [facility] HNO ID: [id number] Author: RAFAEL ORTIZ MD Service: Emergency Medicine Author Type: Resident Type: ED Notes Filed: 06/15/2024 23:00 Note Text: SS for CR 38 yo M, hx of ESRD Sent [facility] for htn Admitted to medicine, HD tonight CONSULT Observed: 06/15/2024 3:49 PM Status: COMPLETED Source: [facility] HNO ID: [id number] Author: LUIS A MOHAN PA-C Service: Nephrology Author Type: Physician Mineral Engineer Type: Consults Filed: 06/15/2024 15:57 Note Text: Department of Kidney Medicine Medical Specialties [facility] NEPHROLOGY CONSULT NOTE Patient Name: China Guillen Consulting Service: Nephrology Requesting Provider: No admitting provider for patient encounter. Opinion/advice regarding: ESRD Final recommendations will be communicated back to the requesting physician by way of shared medical record. HPI: 38 year old male with pmhx of failed ddktxp back on HD since 2022, ESRD on IHD not dialyzed since last Saturday presenting for cataract surgery. VBG drawn today to check potassium and it revealed a K of 6.8. and BP 230/114. Sent to ED for management. Nephrology consulted for ESRD management. PAST MEDICAL HISTORY: PAST MEDICAL HISTORY Diagnosis Date Acquired absence of left leg above knee ([facility]) Acquired absence of other right toe(s) ([facility]) Acute infarction of spinal cord ([facility]) Acute kidney failure, unspecified ([facility]) Acute osteomyelitis of left ankle or foot (HCC) Acute pulmonary edema ([facility]) Anemia Anemia in chronic kidney disease (CKD) Body mass index 40.0-44.9, adult ([facility]) Cerebral infarction due to unspecified occlusion or stenosis of unspecified cerebral artery ([facility]) Chronic kidney disease (CKD), stage IV (severe) ([facility]) Chronic systolic (congestive) heart failure ([facility]) Congestive heart failure (CHF) ([facility]) Dependence on renal dialysis ([facility]) Depression Diabetes mellitus with chronic kidney disease ([facility]) End stage renal disease ([facility]) ESRD (end stage renal disease) ([facility]) Essential hypertension GERD (gastroesophageal reflux disease) Heart failure ([facility]) HLD (hyperlipidemia) Hyperkalemia Hyperlipidemia Hypertension Hypertensive heart and chronic kidney disease with heart failure and stage 1 through stage 4 chronic kidney disease, or chronic kidney disease ([facility]) Hypo-osmolality and hyponatremia Hypomagnesemia Hypothyroidism Insomnia Insomnia Kidney transplant failure Kidney transplant status [facility] current use of insulin ([facility]) Major depressive disorder, recurrent, unspecified ([facility]) Mood disorder ([facility]) Morbid (severe) obesity due to excess calories ([facility]) Muscle weakness Neurogenic bowel Neurogenic bowel, not elsewhere classified Neuromuscular dysfunction of bladder Neuromuscular dysfunction of bladder Neuropathy Non-pressure chronic ulcer of other part of unspecified foot with unspecified severity ([facility]) Obstructive sleep apnea Osteomyelitis of vertebra, sacral and sacrococcygeal region ([facility]) Other disorders of phosphorus metabolism Other idiopathic peripheral autonomic neuropathy Other pericardial effusion (noninflammatory) Other pulmonary embolism without acute cor pulmonale, unspecified chronicity (HCC) Paraplegia (HCC) Paraplegia, incomplete ([facility]) Penile erosion 04/23/2023 Pressure ulcer of ischium, stage 4 ([facility]) Pressure ulcer of left buttock, unspecified stage Right foot ulcer ([facility]) Sepsis ([facility]) Type 2 diabetes (HCC) Unspecified protein-calorie malnutrition (HCC) UTI (urinary tract infection) Vitamin D deficiency PAST SURGICAL HISTORY: PAST SURGICAL HISTORY Procedure Laterality Date COLOSTOMY TRANSPLANTATION OF KIDNEY WOUND DEBRIDEMENT HX 4 times of the wound FAMILY HISTORY: FAMILY HISTORY Problem Relation Age of Onset Diabetes Mother No Known Problems Father No Known Problems Sister No Known Problems Brother No Known Problems Maternal Grandmother No Known Problems Maternal Grandfather No Known Problems Paternal Grandmother No Known Problems Paternal Grandfather SOCIAL HISTORY: Social History Tobacco Use Smoking status: Never Smokeless tobacco: Never Vaping Use Vaping status: Never Used Substance Use Topics Alcohol use: Never Drug use: Never MEDICATIONS: Prior to Admission Medications: aspirin 81 mg capTake by mouth.Disp: Rfl: OXYGEN, HOME THERAPY,2 L/min by Nasal Cannula route as directed. To keep sats >% - LPM via NC to maintain pulse ox above 92% as needed if patient has shortness of breath or s/sx ofDisp: Rfl: tacrolimus IR (PROGRAF) 1 mg capsuleTake 2 mg by mouth two times a day.Disp: Rfl: melatonin 3 mg tabletTake 3 mg by mouth daily at bedtime.Disp: Rfl: ELIQUIS 5 mg tab(s)Take 5 mg by mouth two times a day.Disp: Rfl: clotrimazole-betamethasone (LOTRISONE) creamApply to affected area. Apply to affected area topically at bedtime for rashDisp: Rfl: famotidine (PEPCID) 20 mg tabletTake 20 mg by mouth once daily.Disp: Rfl: glucagon (GLUCAGEN) 1 mg injectionInject 1 mg intramuscularly as needed. For symptomatic hypoglycemia not responsive to oral intervention. Notify MEAT CUTTER/MDDisp: Rfl: LANTUS U-100 INSULIN 100 unit/mL injectionInject 24 Units subcutaneously daily at bedtime. 6 units in evening, 9 units in afternoon, noon.Disp: Rfl: oxyCODONE IR (ROXICODONE) 10 mg tabTake 10 mg by mouth every 4 hours as needed for pain.Disp: Rfl: dextrose (GLUCOSE GEL ORAL)Take by mouth. Give one dose by mouth as needed for hypoglycemic episodeDisp: Rfl: calcitriol (ROCALTROL) 0.5 mcg capsuleTake 0.5 mcg by mouth. Every Saturday and Saturday mcg by mouth dailyDisp: Rfl: amLODIPine (NORVASC) 5 mg tabletTake 5 mg by mouth once daily.Disp: Rfl: SEVELAMER HCL ORALTake 2,400 mg by mouth three times a day. Related to dependence on renal dialysisDisp: Rfl: gabapentin (NEURONTIN) 100 mg capsuleTake 100 mg by mouth every morning. 200 Mg by mouth twice dailyDisp: Rfl: midodrine (PROAMATINE) 10 mg tabletTake 10 mg by mouth. Every Saturday, Saturday, , Saturday for hypotension. Give prior to dialysis, hold BP >130/90.Disp: Rfl: darbepoetin jacki in polysorbate (ARANESP) 40 mcg/mL [id number] mcg. Use 40 mcg intravenously as needed for anemia, administer per dialysis onlyDisp: Rfl: senna-docusate (SENNA PLUS) 8.6-50 mg per tabletTake 1 tablet by mouth two times a day.Disp: Rfl: mupirocin (BACTROBAN) 2 % ointmentApply 1 application to affected area. Apply to left ischium topically at bedtime for wound healing.Disp: Rfl: sodium hypochlorite, Dakin's Half-Strength, (DAKIN'S HALF-STRENGTH) external solutionApply 10 mL to affected area twice daily. FOR EXTERNAL USE ONLY. Soak a kerlix gauze with Dakins and pack the left ischial wound. Cover with ABD.Disp: 473 mLRfl: 1 polyethylene glycol 3350 17 gram packetTake 1 Packet by mouth once daily as needed. Dissolve dose in 4 - 8 ounces of liquid and take as directed.Disp: 30 PacketRfl: 0 epoetin jacki 10,000 unit/mL injectionInject 1 mL subcutaneously 3 Times weekly with dialysis.Disp: 12 mLRfl: 1 aluminum-magnesium hydroxide-simethicone 200-200-20 mg/5 mL suspensionTake 30 mL by mouth once daily as needed.Disp: 354 mLRfl: 0 acetaminophen (TYLENOL) 325 mg tabletTake 2 tablets by mouth every 6 hours as needed (fever).Disp: 100 tabletRfl: 0 (Patient taking differently: Take 650 mg by mouth every 6 hours as needed (fever). 1000 MG by mouth Every eight hours as needed for temp/pain) cloNIDine HCl (CATAPRES) 0.2 mg tabletTake 0.2 mg by mouth two times a day.Disp: Rfl: gabapentin (NEURONTIN) 600 mg tabletTake 600 mg by mouth daily at bedtime. Take 300mg in the AM and 600mg in the PMDisp: Rfl: NIFEdipine ER (PROCARDIA XL) 60 mg 24 hr tabletTake 60 mg by mouth once daily.Disp: Rfl: ondansetron (ZOFRAN) 8 mg tabletTake 8 mg by mouth every 8 hours as needed for nausea/vomiting. 4 MG by mouth every six hours as neededDisp: Rfl: collagenase (SANTYL) ointmentApply to affected area once daily. Apply to left heelDisp: Rfl: sodium bicarbonate 650 mg tabletTake 1,300 mg by mouth two times a day.Disp: Rfl: diphenhydrAMINE (BENADRYL) 25 mg capsuleTake 25 mg by mouth every 6 hours as needed for itching/rash.Disp: Rfl: tacrolimus IR (PROGRAF) 1 mg capsuleTake 6 capsules by mouth twice daily. Take the same dose as before.Disp: 360 capsuleRfl: 0 (Patient not taking: Reported on 10/22/2023) colchicine 0.6 mg tabletTake 0.6 mg by mouth every Saturday and .Disp: Rfl: hydrALAZINE (APRESOLINE) 25 mg tabletTake 25 mg by mouth three times a day. [address] MGDisp: Rfl: pantoprazole [address] (PROTONIX) 40 mg tabletTake 40 mg by mouth once daily.Disp: Rfl: oxyCODONE-acetaminophen (PERCOCET) 5-325 mg tabletTake 1 tablet by mouth every 6 hours as needed for pain.Disp: Rfl: predniSONE 5 mg DsPkTake 5 mg by mouth once daily.Disp: Rfl: promethazine (PHENERGAN) 12.5 mg tabletTake 12.5 mg by mouth every 6 hours as needed for nausea/vomiting. Every eight hours as neededDisp: Rfl: insulin glargine-yfgn (SEMGLEE) 100 unit/mL solutionInject 25 Units subcutaneously daily at bedtime. 24 unitsDisp: Rfl: VITAMIN A ORALTake 3 mg by mouth once daily.Disp: Rfl: ascorbic acid, vitamin C, (VITAMIN C) 500 mg tabletTake 500 mg by mouth once daily.Disp: Rfl: zinc sulfate (ZINC-220 ORAL)Take 1 capsule by mouth once daily.Disp: Rfl: albuterol HFA (PROVENTIL HFA, VENTOLIN HFA) 90 mcg/actuation inhalerInhale 1 Puff as instructed every 4 hours as needed for wheezing/shortness of breath.Disp: Rfl: carvedilol (COREG) 25 mg tabletTake 25 mg by mouth two times a day with meals. 12.5 MG by mouth twice dailyDisp: Rfl: escitalopram oxalate (LEXAPRO) 10 mg tabletTake 10 mg by mouth once daily. MGDisp: Rfl: gabapentin (NEURONTIN) 300 mg capsuleTake 300 mg by mouth once daily. Take 300mg in the AM and 600mg in the PMDisp: Rfl: insulin lispro (ADMELOG) 100 unit/mL injectionInject 1-10 Units subcutaneously three times a day before meals. Inject 6 unit subcutaneously two times dailyDisp: Rfl: levothyroxine 150 mcg capTake 150 mcg by mouth daily before breakfast.Disp: Rfl: atorvastatin (LIPITOR) 40 mg tabletTake 80 mg by mouth daily at bedtime. 40 MG by mouth at bedtimeDisp: Rfl: miconazole (MONISTAT-DERM,DAPHNEY) 2 % creamApply 1 application to affected area two times a day.Disp: Rfl: Multivitamin capsuleTake 1 capsule by mouth once daily.Disp: Rfl: mycophenolate mofetil (CELLCEPT) 250 mg capsuleTake 1,000 mg by mouth two times a day.Disp: Rfl: traZODone (DESYREL) 50 mg tabletTake 50 mg by mouth daily at bedtime. Give 150 MG by mouth at bedtime for insomniaDisp: Rfl: Current Facility-Administered Medications Medication Dose Route Frequency dextrose 15 gram/32 mL 15 g (TRUEPLUS) 15 g ORAL PRN Or glucagon 1 mg injection 1 mg INTRAMUSCULAR PRN Or dextrose 10% iv bolus 12.5 g INTRAVENOUS PRN Facility-Administered Medications Ordered in Other Encounters Medication Dose Route Frequency hydrALAZINE injection (APRESOLINE) INTRAVENOUS PRN ALLERGIES: Patient has no known allergies. COMPLETE REVIEW OF SYSTEMS: PAIN ASSESSMENT: Negative for pain, history of chronic pain, or current treatment for a chronic pain condition CONSTITUTIONAL: No weight loss, malaise, fevers or chills. HEENT: No headaches, blurry vision, epistaxis or sore throat NECK: no neck pain, mass or stiffness RESPIRATORY: Negative for cough, wheezing or shortness of breath CARDIOVASCULAR: Negative for chest pain, orthopnea, palpitations, or edema GASTROINTESTINAL: Negative for nausea, vomiting, and diarrhea. No melena or constipation GENITOURINARY: Negative for dysuria or hematuria SKIN: Negative for lesions, rash, and itching. NEURO: No history of headaches, aphasia, seizures or tremors MUSCULOSKELETAL: No joint swelling or back pain VITAL SIGNS: BP 162/77 Pulse 79 Temp 36.6 ?C (97.9 ?F) (Oral) Resp 16 Wt 126.4 kg (278 lb 10.6 oz) SpO2 100% BMI 36.76 kg/m? PHYSICAL EXAM: GENERAL: adult male, alert, in no acute distress, cooperative, lying in bed SKIN: Skin color, texture, turgor normal. No rashes or lesions. HEENT: normocephalic, atraumatic NECK: no JVD, masses or bruits LUNGS: clear to auscultation. Good diaphragmatic excursion and normal respiratory effort. CARDIAC: RRR S1S2 ABDOMEN: soft, non-tender, non-distended. Normal bowel sounds. GENITOURINARY: no Hurst catheter EXTREMITIES:No edema, no joint swelling NEURO: AOx3, normal speech, muscle strength grossly intact PSYCH: normal judgement and insight ACCESS: AVF Lines, Drains, and Airways Drain Duration Colostomy 04/17/22 LLQ 790 days LABS: Recent Labs 06/15/24 1421 06/15/24 1212 WBC -- 6.87 HB -- 10.3* HCT -- 33.1* PLT -- 161 NA 137 137 K 6.4* 6.8* CHLOR 97* 98 CO2 23 24 ANION 17* 15 BUN 76* 74* CREAT 8.99* 8.64* GLUC 229* 133* CA 9.5 9.1 Recent Labs 06/15/24 1043 LACT 1.0 ASSESSMENT: 38 year old male with pmhx of failed ddktxp back on HD since 2022, ESRD on IHD not dialyzed since last Saturday presenting for cataract surgery. VBG drawn today to check potassium and it revealed a K of 6.8. and BP 230/114. Sent to ED for management. Nephrology consulted for ESRD management. 1.ESRD s/p DDKT, failed kidney transplant now HD dependent -2021-->treated for chronic active AMR and late 1B ACR; remained on dialysis until 07/20/22. Re-admitted in September 2022 with foot infection and JORDI; required dialysis for ~1 week (last HD 09/13/22). Baseline Scr 3-4's. -Scr 4.7 on this admission. Started on HD 10/12/22 for volume overload (moderate pericardial effusion on scan) and now ESRD PLAN: - HD today 3hr 2k bath for urgent treatment of hyperkalemia - continue MWF Standard ESRD recommendations and precautions: - Strict IANDOs and Daily weight - Consider a RENAL Diet for HD patients - Fluid restriction < 1 L - Start Nephrocap or other renal multivitamin to replace water-soluble vitamins lost during dialysis - Avoid Lovenox, Demerol, Morphine, K-containing IVF, Mg- or Phos- containing enemas Consent for BEAUTY ARTIST: ESRD Luis A Mohan PA-C Department of Kidney Medicine [facility] Pager: [phone] June 15, 2024 3:49 PM FOR AFTER HOUR CONCERNS BETWEEN 5PM - 7AM CONTACT ON-CALL NEPHROLOGY FELLOW [phone] BAS METAB 2000 PNL SERPL Collected: 03/2024 2:21 PM Status: F Source: [facility] Order Comment: Specimen Type : BLOOD SPECIMEN Ordering Facility: [facility] Address: [address] [place] [address] TYPE CODE TESTS RESULT OUT OF RANGE REFERENCE UNITS LAB 2345-7(LOINC) Glucose SerPl-mCnc 229 High 74-99 mg/dL Result Comment: The [place] [employer] (ADA) provides guidance for cutoff values for fasting glucose and random glucose. The ADA defines fasting as no caloric intake for at least 8 hours. Fasting plasma glucose results between 100 to 125 mg/dL indicate increased risk for diabetes (prediabetes). Fasting plasma glucose results greater than or equal to 126 mg/dL meet the criteria for diagnosis of diabetes. In the absence of unequivocal hyperglycemia, results should be confirmed by repeat testing. In a patient with classic symptoms of hyperglycemia or hyperglycemic crisis, random plasma glucose results greater than or equal to 200 mg/dL meet the criteria for diagnosis of diabetes. Reference: Standards of Medical Care in Diabetes 2016, [place] [employer] Association. Diabetes Care. 2016.39(Suppl 1). LAB 3094-0(LOINC) BUN SerPl-mCnc 76 High 9-24 mg/ dL LAB 2160-0(LOINC) Creat SerPl-mCnc 8.99 High 0.73-1.22 mg/dL LAB 2951-2(LOINC) Sodium SerPl-sCnc 137 136-144 mmol/L LAB 2823-3(LOINC) Potassium SerPl-sCnc 6.4 High Alert 3.7-5.1 mmol/L LAB 2075-0(LOINC) Chloride SerPl-sCnc 97 Low 98-107 mmol/L LAB 2028-9(LOINC) CO2 SerPl-sCnc 23 22-30 mmo l/L LAB 29384-4(LOINC) Anion Gap SerPl-sCnc 17 High 8-15 mmol/L LAB 29981-9(LOINC) Calcium SerPl-mCnc 9.5 8.5-10.2 mg/dL LAB 29607-1(LOINC) Creatinine + eGFR Pnl SerPlBld 7 Low >=60 mL/min/1 .73m??? Result Comment: Estimated Gl omerular Filtration Rate (eGFR) is calculated using the 2020 CKD-EPI creatinine equation. This equation utilizes serum creatinine, sex, and age as parameters. The creatinine assay has traceable calibration to isotope dilution-mass spectrometry. Refer to KDIGO guidelines for clinical interpretation. In patients with unstable renal function, e.g. those with acute kidney injury, the eGFR may not accurately reflect actual GFR. Performed By: #### [id number], 31104-9 #### [facility] CLIA [id number] [address] [place] [address] [place] HIGH SENSITIVITY TROPONIN T (THIRD) 3 HRS AFTER INITIAL Collected: 06/15/2024 2:21 PM Status: F Source: [facility] Order Comment: Specimen Type : BLOOD SPECIMEN Ordering Facility: [facility] Address: [address] [place] [address] TYPE CODE TESTS RESULT OUT OF RANGE REFERENCE UNITS LAB 56676-2([facility]) Troponin T SerPl HS-mCnc 777 High <12 ng/L Performed By: #### [id number], 89390-3 #### [facility] CLIA [id number] [address] [place] [address] [place] ED NOTE Observed: 06/15/2024 2:06 PM Status: COMPLETED Source: [facility] HNO ID: [id number] Author: JUAN R PIERCE MD Service: Emergency Medicine Author Type: Physician Type: ED Notes Filed: 06/15/2024 14:06 Note Text: ED Attending Continuation of Care Note June 15, 2024 2:06 PM China Guillen was endorsed to me by Dr. Johnston. The patient initially presented to the ED for: hyperkalemia. Signout note reviewed Hypertensive, hyperk, requires dialysis Pending admission HyperK cocktail given Juan R Pierce MD HIGH SENSITIVITY TROPONIN T (SECOND) Collected: 06/15/2024 1:17 PM Status: F Source: [facility] Order Comment: Specimen Type : BLOOD SPECIMEN Ordering Facility: [facility] Address: [address] [place] [address] TYPE CODE TESTS RESULT OUT OF RANGE REFERENCE UNITS LAB 78897-6(LOINC) Troponin T SerPl HS-nc 787 High <12 ng/L Performed By: #### [id number] # ### [facility] CLIA [id number] [address] [place] [address] PROGRESS Observed: 06/15/2024 12:44 PM Status: COMPLETED Source: [facility] HNO ID: [id number] Author: MISA LEBLANC RT(Elif) Service: ? Author Type: Technologist Type: Progress Notes Filed: 06/15/2024 12:44 Note Text: xray: chest XR CHEST 1V FRONTAL PORT Observed: 06/15 12:29 PM Status: F Source: [facility] * * *Final Report* * * DATE OF EXAM: Jun 15 2024 12:29PM EGX [id number] - XR CHEST 1V FRONTAL PORT / PROCEDURE REASON: Shortness of breath * * * * Physician Interpretation * * * * EXAMINATION: CHEST RADIOGRAPH (PORTABLE SINGLE VIEW AP) Exam Date/Time: 06/15/2024 12:29 PM CLINICAL HISTORY: Shortness of breath MQ: XCPR_5 Comparison: 2022 RESULT: Lines, tubes, and devices: None. Lungs and pleura: The lung volumes are low. No discrete consolidation. Probable interstitial prominence which has increased since the prior study. No gross pleural effusion. Cardiomediastinal silhouette: Cardiac silhouette is enlarged but stable. Other: . IMPRESSION: Probable interstitial edema. Gold Miner Blasting: SANDY Transcribe Date/Time: Jun 15 2024 12:45P Dictated by : SLOANE AKHTAR MD This examination was interpreted and the report reviewed and electronically signed by: SLOANE AKHTAR MD on Jun 15 2024 12:46PM EST [id number] BAS METAB 1999 PNL SERPL Collected: 03/2024 12:12 PM Status: F Source: [facility] Order Comment: Specimen Type : BLOOD SPECIMEN Ordering Facility: [facility] Address: [address] [place], [place] [address] [address] TYPE CODE TESTS RESULT OUT OF RANGE REFERENCE UNITS LAB 2345-7(LOINC) Glucose SerPl-mCnc 133 High 74-99 mg/dL Result Comment: The [place] Diabetes Association (ADA) provides guidance for cutoff values for fasting glucose and random glucose. The ADA defines fasting as no caloric intake for at least 8 hours. Fasting plasma glucose results between 100 to 125 mg/dL indicate increased risk for diabetes (prediabetes). Fasting plasma glucose results greater than or equal to 126 mg/dL meet the criteria for diagnosis of diabetes. In the absence of unequivocal hyperglycemia, results should be confirmed by repeat testing. In a patient with classic symptoms of hyperglycemia or hyperglycemic crisis, random plasma glucose results greater than or equal to 200 mg/dL meet the criteria for diagnosis of diabetes. Reference: Standards of Medical Care in Diabetes 2016, [place] Diabetes Association. Diabetes Care. 2016.39(Suppl 1). LAB 3094-0(LOINC) BUN SerPl-mCnc 74 High 9-24 mg/ dL LAB 2160-0(LOINC) Creat SerPl-mCnc 8.64 High 0.73-1.22 mg/dL LAB 2951-2(LOINC) Sodium SerPl-sCnc 137 136-144 mmol/L LAB 2823-3(LOINC) Potassium SerPl-sCnc 6.8 High Alert 3.7-5.1 mmol/L LAB 2075-0(LOINC) Chloride SerPl-sCnc 98 98-107 mmol/L LAB 2027-9(LOINC) CO2 SerPl-sCnc 24 22-30 mmo l/L LAB 42364-0(LOINC) Anion Gap SerPl-sCnc 15 8-15 mmol/L LAB 17724-0(LOINC) Calcium SerPl-mCnc 9.1 8.5-10.2 mg/dL LAB 01434-9(LOINC) Creatinine + eGFR Pnl SerPlBld 8 Low >=60 mL/min/1 .73m??? Result Comment: Estimated Gl omerular Filtration Rate (eGFR) is calculated using the 2020 CKD-EPI creatinine equation. This equation utilizes serum creatinine, sex, and age as parameters. The creatinine assay has traceable calibration to isotope dilution-mass spectrometry. Refer to KDIGO guidelines for clinical interpretation. In patients with unstable renal function, e.g. those with acute kidney injury, the eGFR may not accurately reflect actual GFR. Performed By: #### 42258-9, [id number] #### [facility] CLIA [id number] [address] [place] [address] [place] HIGH SENSITIVITY TROPONIN T (INITIAL) Collected: 06/15/2024 12:12 PM Status: F Source: [facility] Order Comment: Specimen Type : BLOOD SPECIMEN Ordering Facility: [facility] Address: [address] [place] [address] TYPE CODE TESTS RESULT OUT OF RANGE REFERENCE UNITS LAB 94475-4([facility]) Troponin T SerPl HS-mCnc 785 High <12 ng/L Performed By: #### 64914-9, [id number] #### [facility] CLIA [id number] [address] [place] [address] [place] CBC W AUTO DIFF BLD Collected: 06/15/2024 12:12 PM S tatus: F Source: [facility] Order Comment: Specimen Type : BLOOD SPECIMEN Ordering Facility: [facility] Address: [address] [place] [address] TYPE CODE TESTS RESULT OUT OF RANGE REFERENCE UNITS LAB 6690-2(LOINC) WBC # Bld Auto 6.87 3.70-11.00 k/uL LAB 789-8(LOINC) RBC # Bld Auto 3.71 Low 4.20-6.00 m/ uL LAB 718-7([facility]) Hgb Bld-mCnc 10.3 Low 13.0-17.0 g/dL LAB 4544-3([facility]) Hct VFr Bld Auto 33.1 Low 39.0-51.0 % LAB 787-2([facility]) MCV RBC Auto 89.2 80.0-100.0 fL LAB 785-6([facility]) MCH RBC Qn Auto 27.8 26.0-34.0 p g LAB 786-4([facility]) MCHC RBC Auto-mCnc 31.1 30.5-36.0 g/dL LAB 47995-1([facility]) RDW RBC-Rto 16.7 High 11.5-15.0 % LAB 777-3([facility]) Platelet # Bld Auto 161 150-400 k/uL LAB 80752-6([facility]) PMV Bld Auto 10.8 9.0-12.7 fL LAB 770-8([facility]) Neutrophils/leuk NFr Bld Auto 66.0 % LAB 751-8([facility]) Neutrophils # Bld Auto 4.54 1.45-7.50 k/uL LAB 736-9([facility]) Lymphocytes/leuk NFr Bld Auto 22.6 % LAB 731-0([facility]) Lymphocytes # Bld Auto 1.55 1.00-4.00 k/uL LAB 5905-5([facility]) Monocytes/leuk NFr Bld Auto 6.3 % LAB 742-7([facility]) Monocytes # Bld Auto 0.43 <0.87 k/uL LAB 713-8([facility]) Eosinophil/leuk NFr Bld Auto 4.1 % LAB 711-2([facility]) Eosinophil # Bld Auto 0.28 <0.46 k/uL LAB 706-2([facility]) Basophils/leuk NFr Bld Auto 0.7 % LAB 704-7([facility]) Basophils # Bld Auto 0.05 <0.11 k/uL LAB 77990-2([facility]) Imm Granulocytes/ravinder k NFr Bld Auto 0.3 % LAB 41176-1([facility]) Imm Granulocytes # Bld Auto <0.03 <0.10 k/uL LAB 04870-1([facility]) nRBC/100 WBC Bld-Rto 0.0 /100 WBC LAB 771-6([facility]) nRBC # Bld Auto <0.01 <0.01 k/u L LAB 65257-5([facility]) Differential method Bld Auto Performed By: #### 56236-0, 21516-4, 5195-3 #### [facility] CLIA [id number] [address] [place] [address] HBV SURFACE AG SER QL Collected: 2023 12:12 PM Status: F Source: [facility] Order Comment: Specimen Type : BLOOD SPECIMEN Ordering Facility: [facility] Address: [address] [place] [address] TYPE CODE TESTS RESULT OUT OF RANGE REFERENCE UNITS LAB [address]1953([facility]) HBV surface Ag Ser Ql Negative Negative Performed By: #### 45549-3, 78807-0, 5-3 #### [facility] CLIA [id number] [address] [place] [address] [place] HBV SURFACE AB SER QL Collected: 2023 12:12 PM Status: F Source: [facility] Order Comment: Specimen Type : BLOOD SPECIMEN Ordering Facility: [facility] Address: [address] [place] [address] TYPE CODE TESTS RESULT OUT OF RANGE REFERENCE UNITS LAB 82522-5([facility]) HBV surface Ab Ser Ql Positive Result Comment: Consistent w ith serological evidence of immunity to Hepatitis B Virus. LAB 74615-8([facility]) HBV surface Ab Ser-aCnc 641.88 mIU/mL Result Comment: <8 mIU/mL: N o serological evidence of immunity to Hepatitis B Virus. >/= 8 to <12 mIU/mL: No serological evidence of immunity to Hepatitis B Virus. >/= 12 mIU/mL: Consistent with serological evidence of immunity to Hepatitis B Virus. Performed By: #### 27919-0, 35507-3, 5195-3 #### [facility] CLIA [id number] [address] [id number] [place] [facility] ED NOTE Observed: 06/15/2024 11:46 AM Status: COMPLETED Source: [facility] HNO ID: [id number] Author: CANELO JORDAN RN Service: Emergency Medicine Author Type: Registered Nurse Type: ED Notes Filed: 06/15/2024 11:46 Note Text: Got 10mg hydralazine in [facility] ED NOTE Observed: 06/15/2024 11:43 AM Status: COMPLETED Source: [facility] HNO ID: [id number] Author: CANELO JORDAN RN Service: Emergency Medicine Author Type: Registered Nurse Type: ED Notes Filed: 06/15/2024 11:44 Note Text: [phone] shital chan at [facility] can provide updates. ED PROV NOTE Observed: 06/15/2024 11:38 AM Status: COMPLETED Source: [facility] HNO ID: [id number] Author: TREVER JOHNSTON MD Service: Emergency Medicine Author Type: Physician Type: ED Provider Notes Filed: 06/16/2024 09:10 Note Text: ED Provider Note Patient Name: China Guillen : 1985 SERVICE DATE: 06/15/24 History Patient presents with: Hypertension: PT here from [facility]. Was scheduled for cataract surgery today but noted to be hypertensive, did not do surgery. Did not receive BP meds this am due to procedure. Last dialysis Saturday. HPI Patient is a 38-year-old male with a PMHx of ESRD on HD (MWF; s/p kidney transplant), chronic respiratory failure (on 4-4.5 L O2), CHF, HTN, GERD, HLD, IDDM who is [facility] hypertension in the setting of missed dialysis. Pt was scheduled to have cataract surgery today but was sent here d/t hypertension and hyperkalemia. Pt endorses right-sided chest discomfort x3 days as well as SOB but denies any nausea, vomiting, fevers, chills, cough, congestion. Chart Review: -EEG performed at [facility] 04/23/2024 -Office visit with orthopedics at [facility] 02/21/2023 s/p BKA of left lower extremity -Admission 10/11/22 for left BKA PAST MEDICAL HISTORY Diagnosis Date - Acquired absence of left leg above knee ([facility]) - Acquired absence of other right toe(s) ([facility]) - Acute infarction of spinal cord ([facility]) - Acute kidney failure, unspecified ([facility]) - Acute osteomyelitis of left ankle or foot ([facility]) - Acute pulmonary edema ([facility]) - Anemia - Anemia in chronic kidney disease (CKD) - Body mass index 40.0-44.9, adult ([facility]) - Cerebral infarction due to unspecified occlusion or stenosis of unspecified cerebral artery ([facility]) - Chronic kidney disease (CKD), stage IV (severe) ([facility]) - Chronic systolic (congestive) heart failure ([facility]) - Congestive heart failure (CHF) ([facility]) - Dependence on renal dialysis ([facility]) - Depression - Diabetes mellitus with chronic kidney disease ([facility]) - End stage renal disease ([facility]) - ESRD (end stage renal disease) ([facility]) - Essential hypertension - GERD (gastroesophageal reflux disease) - Heart failure ([facility]) - HLD (hyperlipidemia) - Hyperkalemia - Hyperlipidemia - Hypertension - Hypertensive heart and chronic kidney disease with heart failure and stage 1 through stage 4 chronic kidney disease, or chronic kidney disease ([facility]) - Hypo-osmolality and hyponatremia - Hypomagnesemia - Hypothyroidism - Insomnia - Insomnia - Kidney transplant failure - Kidney transplant status - FPC current use of insulin ([facility]) - Major depressive disorder, recurrent, unspecified ([facility]) - Mood disorder ([facility]) - Morbid (severe) obesity due to excess calories ([facility]) - Muscle weakness - Neurogenic bowel - Neurogenic bowel, not elsewhere classified - Neuromuscular dysfunction of bladder - Neuromuscular dysfunction of bladder - Neuropathy - Non-pressure chronic ulcer of other part of unspecified foot with unspecified severity ([facility]) - Obstructive sleep apnea - Osteomyelitis of vertebra, sacral and sacrococcygeal region ([facility]) - Other disorders of phosphorus metabolism - Other idiopathic peripheral autonomic neuropathy - Other pericardial effusion (noninflammatory) - Other pulmonary embolism without acute cor pulmonale, unspecified chronicity ([facility]) - Paraplegia ([facility]) - Paraplegia, incomplete ([facility]) - Penile erosion 04/23/2023 - Pressure ulcer of ischium, stage 4 ([facility]) - Pressure ulcer of left buttock, unspecified stage - Right foot ulcer ([facility]) - Sepsis ([facility]) - Type 2 diabetes ([facility]) - Unspecified protein-calorie malnutrition ([facility]) - UTI (urinary tract infection) - Vitamin D deficiency PAST SURGICAL HISTORY Procedure Laterality Date - COLOSTOMY - TRANSPLANTATION OF KIDNEY - WOUND DEBRIDEMENT HX 4 times of the wound FAMILY HISTORY Problem Relation Age of Onset - Diabetes Mother - No Known Problems Father - No Known Problems Sister - No Known Problems Brother - No Known Problems Maternal Grandmother - No Known Problems Maternal Grandfather - No Known Problems Paternal Grandmother - No Known Problems Paternal Grandfather Social History Tobacco Use - Smoking status: Never - Smokeless tobacco: Never Vaping Use - Vaping status: Never Used Substance and Sexual Activity - Alcohol use: Never - Drug use: Never - Sexual activity: Not Currently ALLERGIES No Known Allergies Review of Systems Constitutional: Negative for fever. HENT: Negative for congestion and sore throat. Eyes: Negative for visual disturbance. Respiratory: Positive for shortness of breath. Negative for cough. Cardiovascular: Positive for chest pain. Gastrointestinal: Negative for abdominal pain, diarrhea, nausea and vomiting. Genitourinary: Negative for dysuria. Musculoskeletal: Negative for back pain. Skin: Negative for rash. Neurological: Negative for headaches. Physical Exam Vitals BP Pulse Temp Temp src Resp SpO2 Weight Height 06/15/24 1145 06/15/24 1141 06/15/24 1141 06/15/24 1141 06/15/24 1141 06/15/24 1141 06/15/24 1141 -- 181/95 82 36.6 ?C (97.9 ?F) Oral 18 100 % 126.4 kg (278 lb 10.6 oz) Physical Exam Vitals and nursing note reviewed. Exam conducted with a emergency crew supervisor present. Constitutional: General: He is not in acute distress. Appearance: He is not ill-appearing, toxic-appearing or diaphoretic. HENT: Head: Normocephalic and atraumatic. Mouth/Throat: Mouth: Mucous membranes are moist. Pharynx: Oropharynx is clear. Cardiovascular: Rate and Rhythm: Normal rate and regular rhythm. Heart sounds: Normal heart sounds. Pulmonary: Effort: No respiratory distress. Breath sounds: Rales (bilateral mid-lower lung núñez) present. Comments: Saturating well on baseline 4 L O2 Abdominal: General: There is no distension. Palpations: Abdomen is soft. Tenderness: There is no abdominal tenderness. There is no guarding or rebound. Musculoskeletal: Right lower leg: Edema present. Comments: Left BKA Skin: General: Skin is warm and dry. Neurological: Mental Status: He is alert and oriented to person, place, and time. Psychiatric: Mood and Affect: Mood normal. Behavior: Behavior normal. Diagnostic Testing ED Labs Ordered and Reviewed - No data to display Procedures ED Course / Clinical Impression ED Course as of 06/16/24 0910 Others' Documentation SatJun 15, 2024 1258 BMP: Hyperkalemia with peaked T waves on EKG. Renal insufficiency c/w ESRD on HD. [CR] 1259 CBC: Chronic anemia, improved from baseline. No leukocytosis or thrombocytopenia [CR] 1259 BON High Sensitivity(!): 785 Elevated, repeat pending [CR] 1259 XR CHEST 1V FRONTAL PORT IMPRESSION: Probable interstitial edema. [CR] 1359 BON High Sensitivity(!): 787 Uptrended, negative delta [CR] 1434 Potassium (POCT)(!): 6.0 [CR] 1434 Glucose, Point of Care(!): 236 [CR] 1450 BON High Sensitivity(!): 777 Downtrended [CR] ED Course User Index [CR] Rachel Jernigan DO Clinical Impressions as of 06/16/24 0910 ESRD on dialysis (HCC) Hyperkalemia Kidney transplant status Type 2 diabetes mellitus with polyneuropathy (HCC) Hypertension, unspecified type Elevated troponin MDM / Disposition / Plan 38-year-old [facility] in the setting of missed dialysis. Upon initial evaluation, patient is hemodynamically stable, afebrile, and in no acute distress. They are not tachypneic or hypoxic on baseline 4 L O2. Labs, CXR and EKG were ordered and were personally reviewed and interpreted. Labs showed hyperkalemia with peaked T waves on EKG but not evidence of prolonged QRS. Calcium gluconate was administered along with hyperkalemia cocktail. CXR showed evidence of pulmonary edema, but he was saturating well on baseline home O2. HST was elevated, but this is likely chronically elevated in setting of ESRD; there was no significant delta trop and EKG showed no acute ischemic changes. Therefore, ACS less likely. Repeat hokoo-bn-dymp lites were obtained, and potassium significantly improved down to 6. I discussed patient with medicine who requested that we speak with renal. Discussed case with renal who has an open slot for him to receive urgent dialysis this evening. Discussed case again with medicine who accepted him for admission pending transfer to dialysis. Patient was signed out to Dr. Ortiz pending transfer to dialysis/admission. History and Record Review Clinical information obtained from an independent historian. History obtained from or confirmed by: other (see comments) ([employer] SUPERVISOR). External record(s) reviewed: prior outpatient record and prior inpatient record. 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 Findings from review of outpatient records: Sent from outpatient Pre-Op to ED today for hyperkalemia and HTN Differential Diagnoses - hyperkalemia - ACS is less likely for the following reason(s): cardiac markers stable, Management Management of the patient was discussed with:admitting team, software developer consultant and admitting team Discussion with admitting team included: Medicine Discussion with software developer consultant included: Renal I performed an independent interpretation of the following:see ED course Additional Tests or Interventions Additional tests/procedures: ECG Disposition The patient was admitted. Counseled patient regarding lab results, radiology results and suspected diagnosis. Admitted to Regular Nursing Floor. SIGNATURE: DO Evan Estrada CATHERINE 06/15/24 1704 Attending Note I evaluated the patient and personally participated in the brar components. I agree with the resident's findings and plan with the following revisions and/or additions: see below EKG INTERPRETATION: Time: 12:20 RHYTHM: Normal sinus rhythm at 80 beats per minute AXIS: Normal axis INTERVALS: Normal UT interval QRS COMPLEX: Normal ST SEGMENT: Normal ST-T segments QT INTERVAL: Normal COMPARED WITH PRIOR: unchanged from 10/08/22 other than the rate Directly visualized and independently interpreted by Dr. Trever Johnston. 38 year old male with ESRD on dialysis (last was on Saturday) scheduled for a catract surgery today but sent to the ED for chest pain, SOB, and HTN. He has had a couple days of SOB but typical for when he is due for dialysis. Denies cough, diaphroesis, nausea, or vomiting. Chest pain is right sided. I personally examined the patient and my exam was notable for a cardiac exam with regular rate and rhythm with no murmurs, rubs, or gallops and 2+ radial pulses, and pulmonary exam he was in no acute respiratory distress with somewhat diminished breath sounds the bases, no wheezing or crackles, musculoskeletal exam he has a palpable thrill to his right upper extremity. Differential diagnosis includes the following 1. Volume overload 2. Anemia 3. Electrolyte abnormality 4. Pneumonia 5. ACS On review of prior records patient was scheduled for cataract surgery today but sent to the ED for hypertension during preoperative evaluation. VBG today showed a K of 6.8 as well and blood pressures document was 240/114. He was given 10 mg of hydralazine prior to ED evaluation. On arrival to the ED his blood pressure is improved to 180s over 90s. EKG has peaked T waves but no other signs of arrhythmia from his hyperkalemia however we will give a dose of calcium as well as albuterol, insulin and glucose. Chest x-ray showed mild pulmonary edema but vitals are otherwise at his baseline. He requires admission for urgent dialysis. Repeat K pending at sign out but his BP was improved and O2 sats were at baseline. Chest pain is atypical for ACS. Troponins elevated but stable and likely due to CKD. Disposition: Admitted to internal medicine after my shift. Critical Care I spent a total of 35 minutes of critical care time in the evaluation and management of this patient. This was necessary to treat or prevent deterioration of the following condition(s): Severe metabolic abnormality, which the patient had and/or has a high probability of suddenly developing. The patient received insulin/glucose, calcium, albuterol, kayexcelate and Oxygen during the time that critical care was provided.I discussed the plan of care with the RESIDENT and agree with the findings documented. Critical care time excludes separately billed procedures. Trever Johnston MD Signature: Trever Johnston MD Date: 06/16/2024 Time: 9:06 AM TREVER JOHNSTON 06/16/24908 TREVER JOHNSTON 06/16/24909 NURSING PROG Observed: 06/15/2024 11:05 AM Status: COMPLETED Source: [facility] HNO ID: [id number] Author: JADE RAYMUNDO, RN Service: Nursing Author Type: Registered Nurse Type: Nursing Progress Note Filed: 06/15/2024 11:14 Note Text: Rapid response called due to Potassium 6.8 ANES PRE-OP Observed: 06/15/2024 11:04 AM Status: COMPLETED Source: [facility] HNO ID: [id number] Author: NICKIE OVALLE MD Service: ? Author Type: Anesthesiologist Type: Anesthesia Preprocedure Evaluation Filed: 06/15/2024 11:09 Note Text: ANESTHESIOLOGY DAY OF SURGERY NOTE : 1985 Procedure Information Date/Time: 06/15/24 1115 Procedure: PHACOEMULSIFICATION CATARACT IMPLANT INTRAOCULAR LENS W/O ENDOSCOPIC CYCLOPHOTOCOAGULATION (Right: Eye) Location: [place] [address] / [facility] Surgeons: Anderson Swanson MD Estimated body mass index is 36.76 kg/m? as calculated from the following: Height as of this encounter: 185.4 cm (6' 1). Weight as of this encounter: 126.4 kg (278 lb 9.6 oz). Most recent hematocrit and potassium results: Hematocrit 28.7 10/10/2022 Potassium 4.8 10/11/2022 Relevant Problems ENDO (+) Type 2 diabetes (HCC) GI (+) GERD (gastroesophageal reflux disease) -RENAL (+) Acute renal failure superimposed on chronic kidney disease (HCC) I - PHYSICAL EVALUATION AIRWAY Patient intubated: No. Tracheostomy tube not present TM distance: >3 FB. Neck ROM: full ROM without neurological symptoms. Mouth opening: adequate. Short neck: no. Thick neck: no II - ANESTHESIA PLAN ASA Score: 4 Anesthetic Plan: MAC NPO Status: adequate Anesthetic plan additional comments: Patient with ESRD not dialyzed since last Saturday. VBG drawn today to check potassium and it revealed a K of 6.8. Additionally, patient not administered any of his antihypertensives today--we gave 10 mg of hydralazine to lower BP that was 230/114 on admission. Will call [facility] and send to ED for further evaluation. . Beta Walt Monitoring Plan Monitoring plan: standard ASA. Post Procedure Analgesic Plan Postoperative analgesic plan: multimodal analgesia. Informed Consent Anesthetic risks, benefits, alternatives, personnel and consent discussed: yes. Patient / Responsible Democrat agrees to proceed: yes Patient / Surrogate agrees to blood products: blood products not planned Significant changes in the patient condition since the History and Physical, not otherwise documented in primary service progress note: no. Potential Anesthesia issues that may suggest increased risk of complications or contraindication to planned procedure: surgical field avoidance. field avoidance. The anesthetic will be complicated due to field avoidance because the surgical procedure will be around the airway (head, neck, or shoulder girdle). There will be no direct access to the patient's airway therefore increasing the technical difficulty. Vitals Value Taken Time BP 226/130 06/15/24 1036 Pulse 78 06/15/24 1036 Resp 18 06/15/24 1036 Temp 36.2 ?C (97.2 ?F) 06/15/24 1036 SpO2 No current facility-administered medications on file as of 06/15/2024. Outpatient Medications as of 06/15/2024 Medication Sig aspirin 81 mg cap Take by mouth. ELIQUIS 5 mg tab(s) Take 5 mg by mouth two times a day. calcitriol (ROCALTROL) 0.5 mcg capsule Take 0.5 mcg by mouth. Every Saturday and Saturday mcg by mouth daily amLODIPine (NORVASC) 5 mg tablet Take 5 mg by mouth once daily. aluminum-magnesium hydroxide-simethicone 200-200-20 mg/5 mL suspension Take 30 mL by mouth once daily as needed. cloNIDine HCl (CATAPRES) 0.2 mg tablet Take 0.2 mg by mouth two times a day. sodium bicarbonate 650 mg tablet Take 1,300 mg by mouth two times a day. colchicine 0.6 mg tablet Take 0.6 mg by mouth every Saturday and . VITAMIN A ORAL Take 3 mg by mouth once daily. ascorbic acid, vitamin C, (VITAMIN C) 500 mg tablet Take 500 mg by mouth once daily. carvedilol (COREG) 25 mg tablet Take 25 mg by mouth two times a day with meals. 12.5 MG by mouth twice daily atorvastatin (LIPITOR) 40 mg tablet Take 80 mg by mouth daily at bedtime. 40 MG by mouth at bedtime traZODone (DESYREL) 50 mg tablet Take 50 mg by mouth daily at bedtime. Give 150 MG by mouth at bedtime for insomnia OXYGEN, HOME THERAPY, 2 L/min by Nasal Cannula route as directed. To keep sats >% - LPM via NC to maintain pulse ox above 92% as needed if patient has shortness of breath or s/sx of melatonin 3 mg tablet Take 3 mg by mouth daily at bedtime. clotrimazole-betamethasone (LOTRISONE) cream Apply to affected area. Apply to affected area topically at bedtime for rash famotidine (PEPCID) 20 mg tablet Take 20 mg by mouth once daily. glucagon (GLUCAGEN) 1 mg injection Inject 1 mg intramuscularly as needed. For symptomatic hypoglycemia not responsive to oral intervention. Notify KAREL/MD HUANG U-100 INSULIN 100 unit/mL injection Inject 24 Units subcutaneously daily at bedtime. 6 units in evening, 9 units in afternoon, noon. oxyCODONE IR (ROXICODONE) 10 mg tab Take 10 mg by mouth every 4 hours as needed for pain. dextrose (GLUCOSE GEL ORAL) Take by mouth. Give one dose by mouth as needed for hypoglycemic episode SEVELAMER HCL ORAL Take 2,400 mg by mouth three times a day. Related to dependence on renal dialysis gabapentin (NEURONTIN) 100 mg capsule Take 100 mg by mouth every morning. 200 Mg by mouth twice daily midodrine (PROAMATINE) 10 mg tablet Take 10 mg by mouth. Every Saturday, Saturday, , Saturday for hypotension. Give prior to dialysis, hold BP >130/90. darbepoetin jacki in polysorbate (ARANESP) 40 mcg/mL injection 40 mcg. Use 40 mcg intravenously as needed for anemia, administer per dialysis only senna-docusate (SENNA PLUS) 8.6-50 mg per tablet Take 1 tablet by mouth two times a day. mupirocin (BACTROBAN) 2 % ointment Apply 1 application to affected area. Apply to left ischium topically at bedtime for wound healing. sodium hypochlorite, Dakin's Half-Strength, (DAKIN'S HALF-STRENGTH) external solution Apply 10 mL to affected area twice daily. FOR EXTERNAL USE ONLY. Soak a kerlix gauze with Dakins and pack the left ischial wound. Cover with ABD. polyethylene glycol 3350 17 gram packet Take 1 Packet by mouth once daily as needed. Dissolve dose in 4 - 8 ounces of liquid and take as directed. epoetin jacki 10,000 unit/mL injection Inject 1 mL subcutaneously 3 Times weekly with dialysis. acetaminophen (TYLENOL) 325 mg tablet Take 2 tablets by mouth every 6 hours as needed (fever). (Patient taking differently: Take 650 mg by mouth every 6 hours as needed (fever). 1000 MG by mouth Every eight hours as needed for temp/pain) gabapentin (NEURONTIN) 600 mg tablet Take 600 mg by mouth daily at bedtime. Take 300mg in the AM and 600mg in the PM NIFEdipine ER (PROCARDIA XL) 60 mg 24 hr tablet Take 60 mg by mouth once daily. ondansetron (ZOFRAN) 8 mg tablet Take 8 mg by mouth every 8 hours as needed for nausea/vomiting. 4 MG by mouth every six hours as needed collagenase (SANTYL) ointment Apply to affected area once daily. Apply to left heel diphenhydrAMINE (BENADRYL) 25 mg capsule Take 25 mg by mouth every 6 hours as needed for itching/rash. hydrALAZINE (APRESOLINE) 25 mg tablet Take 25 mg by mouth three times a day. [address] (PROTONIX) 40 mg tablet Take 40 mg by mouth once daily. oxyCODONE-acetaminophen (PERCOCET) 5-325 mg tablet Take 1 tablet by mouth every 6 hours as needed for pain. predniSONE 5 mg DsPk Take 5 mg by mouth once daily. promethazine (PHENERGAN) 12.5 mg tablet Take 12.5 mg by mouth every 6 hours as needed for nausea/vomiting. Every eight hours as needed insulin glargine-yfgn (SEMGLEE) 100 unit/mL solution Inject 25 Units subcutaneously daily at bedtime. 24 units zinc sulfate (ZINC-220 ORAL) Take 1 capsule by mouth once daily. albuterol HFA (PROVENTIL HFA, VENTOLIN HFA) 90 mcg/actuation inhaler Inhale 1 Puff as instructed every 4 hours as needed for wheezing/shortness of breath. escitalopram oxalate (LEXAPRO) 10 mg tablet Take 10 mg by mouth once daily. MG gabapentin (NEURONTIN) 300 mg capsule Take 300 mg by mouth once daily. Take 300mg in the AM and 600mg in the PM insulin lispro (ADMELOG) 100 unit/mL injection Inject 1-10 Units subcutaneously three times a day before meals. Inject 6 unit subcutaneously two times daily levothyroxine 150 mcg cap Take 150 mcg by mouth daily before breakfast. miconazole (MONISTAT-DERM,DAPHNEY) 2 % cream Apply 1 application to affected area two times a day. Multivitamin capsule Take 1 capsule by mouth once daily. mycophenolate mofetil (CELLCEPT) 250 mg capsule Take 1,000 mg by mouth two times a day. I have interviewed and examined the patient. I have reviewed the medical record and/or the pre-anesthesia evaluation, pertinent labs, and test results. This contains updated information obtained within 48 hours of Surgery/Procedure. SIGNATURE: Nickie Ovalle MD PATIENT NAME: China Guileln DATE: June 15, 2024 TIME: 11:04 AM CSN: [id number] GAS + CO PNL BLDV Collected: 10:43 AM Status: F Source: [facility] Order Comment: Specimen Type : VENOUS BLOOD SPECIMEN Ordering Facility: [facility] Address: [address] [place] [address] TYPE CODE TESTS RESULT OUT OF RANGE REFERENCE UNITS LAB 2746-6(LOINC) pH BldV 7.36 7.32-7.42 LAB 69502-7(LOINC) pH temp adj BldV 7.36 7.32-7.42 LAB 2020-4(LOINC) pCO2 BldV 53 42-55 mmHg LAB 03604-5(LOINC) pCO2 temp adj BldV 53 42-55 mmHg LAB 2705-2(LOINC) pO2 BldV 47 High 35-45 mmHg LAB 29899-6(LOINC) pO2 temp adj BldV 47 High 35-45 mmHg LAB 2711-0(LOINC) SaO2 % BldV 77 60-85 % LAB 1927-3(LOINC) Base excess BldV Calc-sCnc 3 High 0-2 mmol/L LAB 78688-7(LOINC) HCO3 BldV-sCnc 29 High 24-28 mmol/L LAB 2716-9(LOINC) OxyHgb MFr BldV 75 60-85 % LAB 2032-1(LOINC) COHgb MFr BldV 1.5 0.0-2.0 % Result Comment: Carboxyhemog lobin Reference Range for Smokers: 2.0-8.0% LAB 2614-6(LOINC) MetHgb MFr Bld 0.6 0.0-1.5 % LAB 2947-0(LOINC) Sodium Bld-sCnc 140 136-144 mmol/L LAB 6298-4(LOINC) Potassium Bld-sCnc 6.8 High Alert 3.5-5.0 mmol/L LAB 44655-5(LOINC) Ca-I Bld-mCnc 1.24 1.08-1.30 m mol/L LAB 30700-0([facility]) Ca-I adj pH7.4 BldA-sCnc 1.22 1.08-1.30 mmol/L [facility] 2339[facility] Glucose Bld-mCnc 154 High 60-105 mg/dL LAB 74231[facility] Lactate Bld-sCnc 1.0 0.5-2.2 mmol/L LAB 718-7([facility]) Hgb Bld-mCnc 11.1 Low 13.0-17.0 g/dL LAB 4544-3([facility]) Hct VFr Bld Auto 34.2 Low 39.0-51.0 % LAB DTNOTIFY DATE/TIME NOTIFIED [id number] AM LAB CMTSS COMMENTS Critical Value: K+ LAB [id number] NOTIFIED WHOM Eulogio Stevens Performed By: #### 59158-3 # ### [facility] CLIA [id number] [address] [place] [address] STATES OF [facility] PROGRESS Observed: 04/30/2024 2:52 PM Status: COMPLETED Source: [facility] HNO ID: [id number] Author: ANDERSON SWANSON MD Service: ? Author Type: Physician Type: Progress Notes Filed: 04/30/2024 14:54 Note Text: Encounter Diagnosis ICD-10-CM 1. Total, mature senile cataract H25.89 2. 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 History of detached retina repair Z98.890 Z86.69 Cataract Presurgical Documentation Cataract: Right eye (OD) Current Visual Acuity Right Eye Distance SC HM barely Left Eye Distance SC NLP Glare Testing: Visual Function: China Guillen states that the decline in vision from the cataract impedes his abilities as listed in the HPI, as well as other activities of daily living. China Guillen has confirmed that he is no longer able to function adequately on a day-to-day basis because of his current visual condition. Further, it is my medical opinion that the cataract is the primary cause, or at least a significantly contributory cause of his visual dysfunction. With uncomplicated cataract surgery and lens implantation, it is my expectation that his visual function and quality of life will improve, significantly. The risks, benefits, alternatives, personnel and complications of cataract surgery with lens implantation were discussed with China Guillen in detail. he appeared to understand and asked that I proceed with plans for surgery. dense combined PSC/CSC OD offer proceed with complex ce/iol OD - complicating factors: plan trypan blue, possible mechanical dilation NLP OS 2/[address] repair target -1.0D discussed retina limitations - unclear if possible chronic RD vs thick PVD from DM plan block I have confirmed and edited as necessary the relevant ophthalmic history, ROS, and the neuro exam findings as obtained by others. I have seen and examined this patient. I have discussed the case and the management of this patient's care with the Resident/Fellow, if applicable. I also have reviewed and agree with the assessment and plan as stated above and agree with all of its relevant components. Anderson Swanson MD ALLERGIES DATE TYPE / CODE NAME / CODE REACTION SEVERITY SOURCE Drug Class/503385991(SNO MED CT) NO KNOWN ALLERGIES [facility] ENCOUNTERS ADMIT/DISCHARGE ACCOUNT NUMBER ADMITTING ENCOUNTER CLASS LOCATION SOURCE 03/09/2025/03/09/[id number] [facility] HospitalBuild ing:OPHT [facility] 02/23/2025/02/24/[id number] [facility] HospitalBuild ing:WOUR [facility] 02/16/2025/02/17/[id number] [facility] HospitalBuild ing:OPHT [facility] 12/31/2024/01/01/[id number] [facility] HospitalBuild ing:HIOM [facility] 12/22/2024/12/23/[id number] [facility] HospitalBuild ing:OPHT [facility] 12/02/2024/12/06/19 25 [id number] OSCAR CHOWDHURY [facility]S899Vvab: [id number]: H081-02 [facility] 12/02/2024/12/03/19 [id number] [address] B[address]TON [facility] HospitalBuild ing:G093Ablp: MONIE-005Bed: I010 [facility] 11/17/2024 [id number] [facility] HOSPITALBuild ing:B11LPT [facility] 11/17/2024 [id number] [facility] HOSPITALBuild ing:B11LPT [facility] 11/17/2024 [id number] [facility] HOSPITALBuild ing:B11LPT [facility] 11/05/2024/11/06/[id number] [facility] HospitalBuild ing:WOPA [facility] 10/15/2024/10/16/[id number] [facility] HospitalBuild ing:WOCA [facility] 10/08/2024/10/09/[id number] [facility] HospitalBuild ing:WOPA [facility] 09/29/2024/09/30/[id number] [facility] HospitalBuild ing:OPHT [facility] 09/29/2024/09/30/[id number] [facility] HospitalBuild ing:OPHT [facility] 07/28/2024/07/28/[id number] [facility] HospitalBuild ing:OPHT [facility] 07/28/2024/07/28/[id number] [facility] HospitalBuild ing:OPHT [facility] 06/15/2024/06/17/20 [id number] CARRIE SALGADO Inpatient Encounter [facility] HospitalBuild ing:F857Rued: Z297-691Vxo: H080-09 [facility] 06/15/2024/06/15/20 24 [id number] ANDERSON SWANSON [facility] HospitalBuild ing:G713Bivl: MONIE-006Bed: I010-06 [facility] 06/15/2024/06/15/[id number] [facility] HospitalBuild ing:OPHT [facility] 04/30/2024/04/30/[id number] [facility] HospitalBuild ing:OPHT [facility] PAYERS ENCOUNTER GUARANTOR PAYER SUBSCRIBER SOURCE 03/09/2025 Primary Insurance:[facility] MEDICARE ADVANTAGE PPOPolicy Number: [id number] Date:8844-67-51Fkrq Name:Nehemiah GUILLENB: [id number] [place], [place] [address] [place] [address] 03/09/2025 Secondary Insurance:[facility] MEDICAIDPolicy Number: [id number] Date:0383-87-49Zmsq Name:Lamar GUILLENB: [id number] [place], [place] [address] [place] [address] 02/23/2025 Primary Insurance:[facility] MEDICARE ADVANTAGE PPOPolicy Number: [id number] Date:3092-45-04Exkt Name:Nehemiah MOSCOSORAYMONROSSYB: [id number] [place], [place] [address] [place] [address] 02/23/2025 Secondary Insurance:[facility] MEDICAIDPolicy Number: [id number] Date:7763-08-94Ekos Name:Lamar GUILLENB: [id number] [place], [place] [address] [place] [address] 02/16/2025 Primary Insurance:[facility] MEDICARE ADVANTAGE PPOPolicy Number: [id number] Date:5228-11-59Tiow Name:Nehemiah GUILLENB: [id number] [place], [place] [address] [place] [address] 02/16/2025 Secondary Insurance:[facility] MEDICAIDPolicy Number: [id number] Date:4231-58-49Qluy Name:Lamar GUILLENB: [id number] [place], [place] [address] [place] [address] 12/31/2024 Primary Insurance:[facility] MEDICARE ADVANTAGE PPOPolicy Number: [id number] Date:5056-42-90Wmxd Name:Nehemiah GARCIAB: [id number] [place], [place] [address] [place] [address] 12/31/2024 Secondary [facility] [place] [place] MEDICAIDPolicy Number: [id number] Date:0194-99-13Zipc Name:Lamar GARCIAB: [id number] [place], [place] [address] [place] [address] 12/22/2024 Primary Insurance:[facility] MEDICARE ADVANTAGE PPOPolicy Number: [id number] Date:3537-94-49Lfvj Name:Nehemiah GARCIAB: [id number] [place], [place] [address] [place] [address] 12/22/2024 Secondary Insurance:[facility] MEDICAIDPolicy Number: [id number] Date:3772-11-94Pjrl Name:Lamar GARCIAB: [id number] [place], [place] [address] [place] [address] 12/02/2024 Primary Insurance:[facility] MEDICARE ADVANTAGE PPOPolicy Number: [id number] Date:8154-78-00Qurg Name:Nehemiah GARCIAB: [id number] [place], [place] [address] [place] [address] 12/02/2024 Secondary Insurance:[facility] MEDICAIDPolicy Number: [id number] Date:0311-37-47Nmzy Name:Lamar GARCIAB: [id number] [place], [place] [address] [place] [address] 12/02/2024 Primary Insurance:[facility] MEDICARE ADVANTAGE PPOPolicy Number: [id number] Date:4570-47-50Rzqi Name:Nehemiah GARCIAB: [id number] [place], [place] [address] [place] [address] 12/02/2024 Secondary Insurance:[employer] [facility] MEDICAIDPolicy Number: [id number] Date:9830-91-56Eyvv Name:Lamar GUILLENDOB: [id number] [place] [address] [facility] 11/17/2024 CHINA GUILLEN IIIDOB: [place], [place] [address]Lys: ~(3 30 (HP) Primary Insurance:[facility] HEALTHPolicy Number: [id number] Date:0021-93-87Uvbo Name:itsDapper [address] [address]WV: CHINA GUILLEN IIIDOB: [id number] [place], [place] [address]Alr: (HP) [facility] 11/17/2024 Secondary Insurance:MEDICARE [facility] PPOPolicy Number: [id number] Date:2613-49-97Isvi Name:MAGUE GUILLEN IIIDOB: [id number] [place], [place] [address]Vtg: (HP) [facility] 11/17/2024 Tertiary Insurance:[facility] MEDICAID COMMUNITY PLANPolicy Number: [id number] e Date:5007-01-76Pmuo Name:HOLDEN CHINA GUILLEN IIIDOB: [id number] [place], [place] [address]Eix: (HP) [facility] 11/17/2024 CHINA GUILLEN IIIDOB: [place], [place] [address]Eee: ~(3 30 (HP) Primary Insurance:[facility] HEALTHPolicy Number: [id number] Date:7729-40-17Jolq Name:MANAGED CARE [address] [place] [address]TW: CHINA GUILLEN IIIDOB: [id number] [place], [place] [address]Ntx: (HP) [facility] 11/17/2024 Secondary Insurance:MEDICARE [facility] PPOPolicy Number: [id number] Date:1070-94-91Jxtu Name:MAGUE GUILLEN IIIDOB: [id number] [place], [place] [address]Hms: (HP) [facility] 11/17/2024 Tertiary Insurance:[facility] MEDICAID COMMUNITY PLANPolicy Number: [id number] Date:4632-14-56Odnh Name:HOLDEN GUILLEN IIIDOB: [id number] [place], [place] [address]Yfb: (HP) [facility] 11/17/2024 CHINA GUILLEN IIIDOB: [place], [place] [address]Dor: ~(1 30 (HP) Primary Insurance:[facility] HEALTHPolicy Number: [id number] Date:1255-50-91Dnof Name:[facility] [address] [address]KR: CHINA GUILLEN IIIDOB: [id number] [place], [place] [address]Wqc: (HP) [facility] 11/17/2024 Secondary Insurance:MEDICARE [facility] PPOPolicy Number: [id number] Date:7785-73-23Vnsb Name:MAGUE GUILLEN IIIDOB: [id number] [place], [place] [address]Gny: (HP) [facility] 11/17/2024 Tertiary Insurance:[facility] MEDICAID COMMUNITY PLANPolicy Number: [id number] Date:6106-26-45Jlda Name:HOLDEN Herrera WILMER ALSTONDOB: [id number] [place], [place] [address]Tel: () [facility] 11/05/2024 Primary Insurance:[facility] MEDICARE ADVANTAGE PPOPolicy Number: [id number] Date:1854-94-19Wory Name:Nehemiah Herrera WILMERDOB: [id number] [address] 11/05/2024 Secondary Insurance:[facility] MEDICAIDPolicy Number: [id number] Date:0248-81-23Prwd Name:Lamar Herrera RADHAB: [id number] [address] 10/15/2024 Primary Insurance:[facility] MEDICARE ADVANTAGE PPOPolicy Number: [id number] Date:2356-81-71Hhiw Name:Nehmeiah Herrera RADHAB: [id number] [address] 10/15/2024 Secondary Insurance:[facility] MEDICAIDPolicy Number: [id number] Date:7178-68-61Gmvg Name:Lamar Herrera RADHAB: [id number] [address] 10/08/2024 Primary Insurance:[facility] MEDICARE ADVANTAGE PPOPolicy Number: [id number] Date:6668-23-33Bouj Name:Nehemiah Herrera RADHAB: [id number] [address] 10/08/2024 Secondary Insurance:[facility] MEDICAIDPolicy Number: [id number] Date:1055-32-48Tnhg Name:Lamar GARCIAB: [id number] [place], [place] [address] [place] [address] 09/29/2024 Primary Insurance:[facility] MEDICARE ADVANTAGE PPOPolicy Number: [id number] Date:6245-76-06Sswq Name:Nehemiah GARCIAB: [id number] [place], [place] [address] [place] [address] 09/29/2024 Secondary Insurance:[facility] MEDICAIDPolicy Number: [id number] Date:5815-97-07Ohoj Name:Lamar GARCIAB: [id number] [place], [place] [address] [place] [address] 09/29/2024 Primary Insurance:[facility] MEDICARE ADVANTAGE PPOPolicy Number: [id number] Date:6103-99-62Amlo Name:Nehemiah GARCIAB: [id number] [place], [place] [address] [place] [address] 09/29/2024 Secondary Insurance:[facility] MEDICAIDPolicy Number: [id number] Date:7300-88-66Guub Name:Lamar GARCIAB: [id number] [place], [place] [address] [place] [address] 07/28/2024 Primary Insurance:[facility] MEDICARE ADVANTAGE PPOPolicy Number: [id number] Date:5453-82-70Shmn Name:Nehemiah GARCIAB: [id number] [address] [place], [place] [address] [place] [address] 07/28/2024 Secondary Insurance[facility] [place] [place] [facility] MEDICAIDPolicy Number: [id number] Date:2834-35-10Paha Name:Lamar GARCIAB: [id number] [place], [place] [address] [place] [address] 07/28/2024 Primary Insurance:[facility] MEDICARE ADVANTAGE PPOPolicy Number: [id number] Date:8795-31-65Uwvf Name:Nehemiah GARCIAB: [id number] [place], [place] [address] [place] [address] 07/28/2024 Secondary Insurance:[facility] MEDICAIDPolicy Number: [id number] Date:5908-44-30Ibvh Name:Lamar GARCIAB: [id number] [place], [place] [address] [place] [address] 06/15/2024 Primary Insurance:[facility] MEDICARE ADVANTAGE PPOPolicy Number: [id number] Date:8686-27-73Rfet Name:Nehemiah GARCIAB: [id number] [address] 06/15/2024 Secondary Insurance:[facility] MEDICAIDPolicy Number: [id number] Date:9037-24-06Rnoz Name:Lamar GARCIAB: [id number] [place], [place] [address] [place] [address] 06/15/2024 Primary Insurance:[facility] MEDICARE ADVANTAGE PPOPolicy Number: [id number] Date:9482-08-35Ddhr Name:Nehemiah GARCIAB: [id number] [place], [place] [address] [place] [address] 06/15/2024 Secondary Insurance:[facility] MEDICAIDPolicy Number: [id number] Date:0158-60-02Wbzx Name:Lamar GARCIAB: [id number] [place], [place] [address] [place] [address] 06/15/2024 Primary Insurance:[facility] MEDICARE ADVANTAGE PPOPolicy Number: [id number] Date:5475-34-95Xasi Name:Nehemiah GARCIAB: [id number] [address] [place], [place] [address] [place] [address] 06/15/2024 Secondary Insurance:[facility] MEDICAIDPolicy Number: [id number] Date:3055-34-25Ptgp Name:Lamar Herrera SAL: [id number] [address] [place], [place] [address] [place] [address] 04/30/2024 Primary Insurance:[facility] MEDICARE ADVANTAGE PPOPolicy Number: [id number] Date:9641-05-61Zcbd Name:Nehemiah Herrera SAL: [id number] [address] [place], [place] [address] [place] [address] 04/30/2024 Secondary Insurance:[facility] MEDICAIDPolicy Number: [id number] Date:3524-23-44Ftmx Name:Lamar Herrera SAL: [id number] [address] [place], [place] [address] [place] [address]
--- OUTSIDE RECORDS SUMMARY | 2025-03-09 12:34 | XMS RPT_ITS ---
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, left eye (HCC) / E10.3542(ICD-10) KAILEY ERNANDEZ Active [facility] 07/28/2024 Active Type 1 diabetes mellitus with proliferative retinopathy of both eyes without macular edema (HCC) / E10.3593(ICD-10) KAILEY ERNANDEZ Active [facility] 03/09/2025 Active Nuclear scleroti c cataract, left / H25.12(ICD-10) KAILEY ERNANDEZ Active [facility] 03/09/2025 Active Pseudophakia of right eye / Z96.1(ICD-10) KAILEY ERNANDEZ Active [facility] 10/09/2024 Active Neurogenic bladd er / N31.9(ICD-10) JENNY TOVAR Active [facility] 06/16/2024 Active ESRD on dialysis (HCC) / N18.6(ICD-10) JENNY TOVAR Active [facility] 06/16/2024 Active ESRD on dialysis (HCC) / Z99.2(ICD-10) JENNY TOVAR Active [facility] 02/23/2025 Active Presence of suprapubic catheter (HCC) / Z93.59(ICD-10) JENNY TOVAR Active [facility] 02/23/2025 Active Encounter for fitting and adjustment of urinary device / Z46.6(ICD-10) LA JENNY Active [facility] 02/23/2025 Active Penile erosion / N48.89(ICD-10) JENNY TOVAR Active [facility] 02/16/2025 Active Pseudophakia / Z96.1(ICD-10) OSMANYJESSICA ANDERSON M Active [facility] 02/16/2025 Active History of detac hed retina repair / Z98.890(ICD-10) SKY ANDERSON M Active [facility] 02/16/2025 Active History of detac hed retina repair / Z86.69(ICD-10) SKY ANDERSON M Active [facility] 12/04/2024 Active Hyperkalemia / E87.5(ICD-10) [facility]GA, [facility] Active [facility] 12/04/2024 Active Dialysis patient / Z99.2(ICD-10) [facility]GA, [facility] Active [facility] 12/02/2024 Active Electrolyte diso rder / E87.8(ICD-10) [facility] 10/15/2024 Active Hx of left BKA ( HCC) / Z89.512(ICD-10) [facility] 06/15/2024 Active Paraplegia (HCC) / G82.20(ICD-10) [facility] Active [facility] 12/02/2024 Active Total, mature se nile cataract / H25.89(ICD-10) MUNIR BURTON [facility] 11/17/2024 Admitting diagnosis End stage renal disease / N18.6(ICD-10) SCOTT DIETZ Active [facility] 11/17/2024 Admitting diagnosis Encounter for other preprocedural examination / Z01.818(ICD-10) FRIDA CHASE Active [facility] 11/17/2024 Admitting diagnosis Encounter for screening for other viral diseases / Z11.59(ICD-10) FRIDA CHASE Active [facility] 11/17/2024 Admitting diagnosis Abnormal finding of blood chemistry, unspecified / R79.9(ICD-10) OSMAR CHASEO Active [facility] 11/05/2024 Active Consult / UNK(Unknown) NA Active [facility] 10/15/2024 Active Pericardial effu yordan (HCC) / I31.39(ICD-10) NA Active [facility] 06/15/2024 Active Kidney transplan t status / Z94.0(ICD-10) CARRIE SALGADO Active [facility] 06/15/2024 Active Type 2 diabetes mellitus with polyneuropathy (HCC) / E11.42(ICD-10) CARRIE SALGADO Active [facility] 06/15/2024 Active Hypertension, unspecified type / I10(ICD-10) CARRIE SALGADO Active [facility] 06/15/2024 Active Elevated troponi n / R79.89(ICD-10) CARRIE SALGADO Active [facility] 06/15/2024 Active Senile nuclear cataract, right / H25.11(ICD-10) ANDERSON SWANSON Active [facility] PROCEDURES No Procedure Records Found RESULTS PROGRESS Observed: 03/09/2025 1:15 PM Status: COMPLETED Source: [facility] HNO ID: [id number] Author: KAILEY ERNANDEZ PA-C Service: ? Author Type: Physician Catch Basin Cleaner Type: Progress Notes Filed: 03/09/2025 13:59 Note Text: All problems with bold in text below addressed at this visit with patient 1. POM#3 s/p CE/PCIOL, PPV/EL/Afx OD 12/02/24 (Alen/Ti) - Previous RD repair with SO 2019 per patient OS - Patient was previously admitted to hospital after surgery for hyperkalemia - Previously evaluated for POD1 visit with infusion rn resident and fellow - Completed all post op drops - Remains stable on imaging and exam - [facility] stable 20/50 - IOP good 18 - Call with changes in vision - Monitor - Follow up with Dr. Burton in 2 months 2. Type 1 diabetes mellitus with PDR OS - Emphasized importance of tight blood sugar control - Continue close follow up with PCP/complex case manager - [facility] stable NLP - Monocular precautions [...] Observed: 02/23/2025 8:26 AM Status: COMPLETED Source: [facility] HNO ID: [id number] Author: JENNY TOVAR PA-C Service: ? Author Type: Physician Catch Basin Cleaner Type: Progress Notes Filed: 02/23/2025 08:36 Note Text: [facility] NEW PATIENT CLINIC NOTE (M) Note was generated by [employer] and edited as appropriate SERVICE DATE: February 23, 2025 NAME: China Guillen GENDER: male CHIEF COMPLAINT: The patient is a 39-year-old male with a history of suprapubic catheter, presenting for an annual wellness visit. HISTORY OF PRESENT ILLNESS: The patient is a 39-year-old male with a history of suprapubic catheter, presenting for an annual wellness visit. Annual Wellness Exam: - Resides at [facility]. - Undergoing dialysis. Suprapubic Catheter: - Suprapubic [...] a day.Disp: Rfl: sodium phosphate,mono-dibasic (FLEET ENEMA FL)by RECTAL route.Disp: Rfl: dextrose (GLUCOSE GEL PO)Take [...] hypoglycemia not responsive to oral intervention. Notify SWEAT BOX ATTENDANT/MDDisp: Rfl: senna-docusate (SENNA PLUS) 8.6-50 mg per [...] disease (CKD) Background diabetic macular edema (DME) ([facility]) Body mass index 40.0-44.9, adult ([facility]) Cataracts, bilateral Cerebral infarction due to unspecified occlusion or stenosis of unspecified cerebral artery ([facility]) Chronic kidney disease (CKD), stage IV (severe) ([facility]) Chronic systolic (congestive) heart failure ([facility]) Congestive heart failure (CHF) ([facility]) Dependence on renal dialysis Depression Diabetes mellitus with chronic kidney disease ([facility]) End stage renal disease ([facility]) ESRD (end stage renal disease) ([facility]) Essential hypertension GERD (gastroesophageal reflux disease) Heart failure ([facility]) HLD (hyperlipidemia) Hyperkalemia Hyperlipidemia Hypertension Hypertensive heart and chronic kidney disease with heart failure and stage 1 through stage 4 chronic kidney disease, or chronic kidney disease ([facility]) Hypo-osmolality and hyponatremia Hypomagnesemia Hypothyroidism Insomnia Insomnia Kidney transplant failure ([facility]) Kidney transplant status ([facility]) penitentiary current use of insulin ([facility]) Major depressive disorder, recurrent, unspecified Mood disorder Morbid (severe) obesity due to excess calories ([facility]) Muscle weakness Neurogenic bowel Neurogenic bowel, not elsewhere classified Neuromuscular dysfunction of bladder Neuromuscular dysfunction of bladder Neuropathy Non-pressure chronic ulcer of other part of unspecified foot with unspecified severity ([facility]) Obstructive sleep apnea Osteomyelitis of vertebra, sacral and sacrococcygeal region ([facility]) Other disorders of phosphorus metabolism Other idiopathic peripheral autonomic neuropathy Other pericardial effusion (noninflammatory) ([facility]) Other pulmonary embolism without acute cor pulmonale, unspecified chronicity ([facility]) Paraplegia ([facility]) Paraplegia, incomplete ([facility]) PDR (proliferative diabetic retinopathy) ([facility]) PDR (proliferative diabetic retinopathy) ([facility]) Penile erosion 04/23/2023 Pressure ulcer of ischium, stage 4 ([facility]) Pressure ulcer of left buttock, unspecified stage 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 Right foot ulcer ([facility]) Sepsis ([facility]) T1DM (type 1 diabetes mellitus) ([facility]) Total, mature age-related cataract Type 2 diabetes ([facility]) Unspecified protein-calorie malnutrition ([facility]) UTI (urinary tract infection) Vitamin D deficiency [...] device (Z46.6) - Suprapubic catheter managed at [facility] with monthly changes on the . No [...] > Continue with SPT exchanges monthly with [facility] Nursing staff Patient Instructions (AVS) - printed [...] away. - Bring this note to the hotel front office manager to schedule or confirm your next catheter change appointments as needed. - Return for your annual follow-up in one year, or sooner if you develop any concerns or symptoms. PATRICIA Callahan, CHERISE, JOSE CNOV Observed: 02/23/2025 8:00 AM Status: COMPLETED Source: [facility] Office Visit (UROLWS) CHINA GUILLEN ([id number]) 1985 M Date Time Provider Department 02/23/25 8:00 AM JENNY TOVAR During your visit today, we recorded the following information about you: Temperature 97.6 degrees Jenny Tovar PA-C 02/23/2025 8:36 AM Signed [facility] PATIENT CLINIC NOTE (M) Note was generated by [employer] and edited as appropriate SERVICE DATE: [...] visit. Annual Wellness Exam: - Resides at [facility]. - Undergoing dialysis. Suprapubic Catheter: - Suprapubic [...] a day.Disp: Rfl: sodium phosphate,mono-dibasic (FLEET ENEMA FL)by RECTAL route.Disp: Rfl: dextrose (GLUCOSE GEL PO)Take [...] hypoglycemia not responsive to oral intervention. Notify SWEAT BOX ATTENDANT/MDDisp: Rfl: senna-docusate (SENNA PLUS) 8.6-50 mg per [...] Acquired absence of left leg above knee ([facility]) Acquired absence of other right toe(s) ([facility]) Acute infarction of spinal cord ([facility]) Acute kidney failure, unspecified Acute osteomyelitis of left ankle or foot ([facility]) Acute pulmonary edema ([facility]) Anemia Anemia in chronic kidney disease (CKD) Background diabetic macular edema (DME) ([facility]) Body mass index 40.0-44.9, adult ([facility]) Cataracts, bilateral Cerebral infarction due to unspecified occlusion or stenosis of unspecified cerebral artery ([facility]) Chronic kidney disease (CKD), stage IV (severe) ([facility]) Chronic systolic (congestive) heart failure ([facility]) Congestive heart failure (CHF) ([facility]) Dependence on renal dialysis Depression Diabetes mellitus with chronic kidney disease ([facility]) End stage renal disease ([facility]) ESRD (end stage renal disease) ([facility]) Essential hypertension GERD (gastroesophageal reflux disease) Heart failure ([facility]) HLD (hyperlipidemia) Hyperkalemia Hyperlipidemia Hypertension Hypertensive heart and chronic kidney disease with heart failure and stage 1 through stage 4 chronic kidney disease, or chronic kidney disease ([facility]) Hypo-osmolality and hyponatremia Hypomagnesemia Hypothyroidism Insomnia Insomnia Kidney transplant failure ([facility]) Kidney transplant status ([facility]) penitentiary current use of insulin ([facility]) Major depressive disorder, recurrent, unspecified Mood disorder Morbid (severe) obesity due to excess calories ([facility]) Muscle weakness Neurogenic bowel Neurogenic bowel, not elsewhere classified Neuromuscular dysfunction of bladder Neuromuscular dysfunction of bladder Neuropathy Non-pressure chronic ulcer of other part of unspecified foot with unspecified severity ([facility]) Obstructive sleep apnea Osteomyelitis of vertebra, sacral and sacrococcygeal region ([facility]) Other disorders of phosphorus metabolism Other idiopathic peripheral autonomic neuropathy Other pericardial effusion (noninflammatory) ([facility]) Other pulmonary embolism without acute cor pulmonale, unspecified chronicity ([facility]) Paraplegia ([facility]) Paraplegia, incomplete ([facility]) PDR (proliferative diabetic retinopathy) ([facility]) PDR (proliferative diabetic retinopathy) ([facility]) Penile erosion 04/23/2023 Pressure ulcer of ischium, stage 4 ([facility]) Pressure ulcer of left buttock, unspecified stage 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 Right foot ulcer ([facility]) Sepsis ([facility]) T1DM (type 1 diabetes mellitus) (HCC) Total, [...] device (Z46.6) - Suprapubic catheter managed at [facility] with monthly changes on the . No [...] > Continue with SPT exchanges monthly with [facility] Nursing staff Patient Instructions (AVS) - printed [...] away. - Bring this note to the hotel front office manager to schedule or confirm your next [...] a day. - sodium phosphate,mono-dibasic (FLEET ENEMA FL) by RECTAL route. - dextrose (GLUCOSE GEL [...] hypoglycemia not responsive to oral intervention. Notify SWEAT BOX ATTENDANT/MD - LANTUS U-100 INSULIN 100 unit/mL injection [...] Observed: 02/18/2025 12:00 AM Status: COMPLETED Source: [facility] Telephone (UROLWS) WILMERCHINA BLAIR ([id number]) 1985 M LV Date Time Provider Department 02/18/25 JENNY TOVAR During your visit today, we recorded the following information about you: Cecy Segura LPN 02/18/2025 12:01 PM Addendum DALILA Rutledge, unit controller with [facility] called to report that patient has foul ordor and green drainage around supra pubic site with red urine in drainage bag since 02/17/2025. Facility provider near Located [facility] doing rounds and informed patient has not [...] a day. - sodium phosphate,mono-dibasic (FLEET ENEMA FL) by RECTAL route. - dextrose (GLUCOSE GEL [...] hypoglycemia not responsive to oral intervention. Notify SWEAT BOX ATTENDANT/ - LANTUS U-100 INSULIN 100 unit/mL injection [...] 04/17/2022 Mood disorder (HCC) [F39] 04/17/2022 Paraplegia ([facility]) [G82.20] 04/17/2022 Sepsis (HCC) [A41.9] 04/17/2022 12/14/2022 [...] Observed: 02/16/2025 11:05 AM Status: COMPLETED Source: [facility] HNO ID: [id number] Author: ANDERSON SWANSON MD Service: ? Author [...] of its relevant components. Anderson [facility]anson [facility] Observed: 01/19/2025 12:00 AM Status: COMPLETED Source: [facility] Telephone (OPHTMN) CHINA GUILLEN ([id number]) 1985 M Date Time Provider Department 01/19/25 MUNIR BURTON During your visit today, we recorded the following information about you: Layne Enriquez 01/19/2025 2:07 PM Signed China Guillne [facility] [id number] 12/31/24 Fv 02/16/25 Dr Swanson Patient's residential facility / nurse, [facility] / Calling [phone] Patient's Right eye, sclera, is still red [...] Winn acting as a scribe for Munir Butron MD. 12/31/2024 7:27 AM. Scribe Attestation: By [...] - Previously evaluated for POD1 visit with infusion rn resident and fellow - Currently using on [...] Signed Nurse, Oscar, notified. Re: China Guillen [facility] [id number] ? Kailey Ernandez Jennifer;Munir Burton;Deepak Augustin;Eze Gallego;Real Donohue Sometimes it can take some time for that redness to go away. As long as he is not having any vision changes we can continue to monitor Allergies As of Date: 01/19/2025 (No Known Allergies) Date Reviewed: 12/31/2024 Reviewed by: Munir Burton MD - Fully Assessed Reason for Visit: Buncher Machine - Other [0592] Prescriptions as of 01/20/2025 - calcitriol (ROCALTROL) [...] hypoglycemia not responsive to oral intervention. Notify SWEAT BOX ATTENDANT/ - JESSICAUS U-100 INSULIN 100 unit/mL injection [...] Observed: 12/31/2024 7:27 AM Status: COMPLETED Source: [facility] HNO ID: [id number] Author: MUNIR BURTON MD Service: ? Author [...] - Previously evaluated for POD1 visit with infusion rn resident and fellow - Currently using on [...] Observed: 12/22/2024 2:15 PM Status: COMPLETED Source: [facility] HNO ID: [id number] Author: KAILEY ERNANDEZ PA-C Service: ? Author Type: Physician Catch Basin Cleaner Type: Progress Notes Filed: 12/22/2024 15:22 Note Text: All problems with bold in text below addressed at this visit with patient 1. POW#3 s/p CE/PCIOL, PPV/EL/Afx OD 12/02/24 (Alen/Ti) - Prior RD repair with SO 2019 per patient OS - Of note patient was admitted to hospital after surgery for hyperkalemia - Was evaluated for POD1 visit with infusion rn resident and fellow - Currently on ofloxacin [...] Observed: 12/07/2024 12:00 AM Status: COMPLETED Source: [facility] Telephone (OPHTMN) CHINA GUILLEN ([id number]) 1985 M Date Time Provider Department 12/07/24 MUNIR BURTON During your visit today, we recorded the following information about you: Layne Enriquez 12/07/2024 1:58 PM Signed LVM with his nurse, Geovanna, to schedule. Reina Enriquez, COA Field Scout II From: Deepak Augustin < > Sent: Saturday, December 07, 2024 1:15 PM To: Pranay Nuno < > Cc: Munir Burton < >; Layne Enriquez < > Subject: Re: Confidential: patient Wilmer Huang, Can you call the patient and get him added to this at 12/10/22 at 10:15am Blessing. Thanks Deepak Augustin, JAVI, CRNO, OSC From: Pranay Nuno < > Sent: Thursday, December 05, 2024 7:00 AM To: Deepak Augustin < > Cc: Munir Burton < > Subject: Confidential: patient Wilmer Chuyita Sotelo and Dr Burton I saw China Guillen ([id number]) on the floor for his POD1 apt [...] hypoglycemia not responsive to oral intervention. Notify SWEAT BOX ATTENDANT/MD - LANTUS U-100 INSULIN 100 unit/mL injection [...] Observed: 12/05/2024 11:38 AM Status: COMPLETED Source: [facility] HNO ID: [id number] Author: MIREYA VILLAFUERTE RN Service: Nursing Author Type: Registered Nurse Type: Nursing Progress Note Filed: 12/05/2024 11:39 Note Text: Call placed to Tanesha Watkins. Reort given to nurse Shital MIMS MANAGEM Observed: 12/05/2024 10:38 AM Status: COMPLETED Source: [facility] HNO ID: [id number] Author: ELEAZAR PEREZ LSW Service: Care Management Author Type: Rotary Cutter Feeder Type: Care Mgt Progress Note Filed: 12/05/2024 10:43 Note Text: CARE MANAGEMENT DISCHARGE NOTE SERVICE DATE: December 05, 2024 SERVICE TIME: 10:38 AM Admission Date: 12/02/2024 LOS: 3 days Discharge Arrangement Discharge Arrangement: Half-Way Facility Was an expedited discharge program used?: No Caregiver Assessment Caregiver is ready, willing and able to meet the patient's needs as recommended by the inter-professional team: Yes Name of Caregiver: SNF Transportation Arrangements Transportation Arrangements: Ambulance Transportation Agency and Phone #:: [facility] [phone] Date of Trip: 12/05/24 Time of Trip: 1300 Type of Service: BLS Non-emergency Is Patient Medicaid Pending?: No Was transportation financial coverage discussed with family?: Patient Farm [employer]cher Location: Main [place] Destination: [facility] Financial Care Management Responsibility: None Handoff Communication: Handoff to: Primary Care Physician Primary Care Physician Name/Phone: Lang Peres Per primary team pt is medically ready for discharge. Pt to return to [facility]. No precert or 7000 needed. Transport scheduled for 12/05 @ 1300, trip # [id number]. Per [facility], RN report # [phone]. No COVID test needed, unless symptomatic. DC packet w/ green chart. DC orders faxed to [phone]. CM spoke with Shital from admissions [phone] and confirmed dc for today. Pt to resume dialysis at [facility], SNF to continue to transport. Discharge Information Row Name ED to Hosp-Admission (Current) from 12/02/2024 in HOSP MAIN [facility] Half-Way Facility Agency [facility] SIGNATURE: DAMARI Lizama PATIENT NAME: China Guillen DATE: December 05, 2024 TIME: 10:38 AM CNDS Observed: 12/05/2024 9:39 AM Status: [facility]TED [id number] Author: ROWAN BALDERRAMA MD Service: General Internal [...] HD; Type 1 DM; s/p Vitrectomy in [facility] HOSPITAL PROBLEMS: Active Hospital Problems Diagnosis [...] presented to ED as a SUZI from [facility] after routine labs showing K of [...] MICU and received a short session of EMERGENCY RESPONSE TECHNICIAN overnight. Repeat K this AM was 5.5 and then 4.0. Given improvement he was stable for transfer to [facility]. On arrival he was HDS with [...] to ICU for emergent HD Tx to [facility] on 12/03 - Nephrology following, IHD in Q6 completed 12/04 - Cont tacro (goal 3-7) - Continue home sevelamer TID -K 5.2 day of hospital discharge; STARTED on Lokelma 5g daily Monitor BMP weekly at [facility] #Thrombocytopenia PLT on admission fluctuating 143 on admission; up to 173 post op Then down to 126 day of discharge Monitor CBC weekly at [facility] # Bilateral retinal detachments: blind, s/p left mechanical vitrectomy 12/02 at [facility] - per ophtho - continue oflaxacin QID R eye - continue prednisolone QID R eye - continue cyclopentolate BID R eye - eye patch at night - do not lay flat on back - 1 week follow up with Dr. Burton requested Discharge back to [facility] in [place] in stable condition. OPERATIONS/PROCEDURE DURING THIS HOSPITALIZATION: * No surgery found * EKG CONSULTS DURING HOSPITALIZATION: Treatment Team: Attending Provider: Rowan Balderrama MD Primary Service: GIM 4 Nurse Practitioner: Uyen Jean Baptiste APRN.SWEAT BOX ATTENDANT PATIENT CONDITION AT DISCHARGE: Stable DISCHARGE DISPOSITION: Half-Way Facility Discharge Physical Exam: VITAL SIGNS: BP 172/87 Pulse 71 Temp 36.8 ?C (98.2 ?F) (Oral) Resp 18 Wt 122 kg (268 lb 15.4 oz) SpO2 100% BMI 36.48 kg/m? GENERAL: Alert, no distress, cooperative, Morbidly Obese, blindness; [place] SKIN: Skin color, texture, turgor normal. No [...] NOT A CONSULT TO WOUND CARE) (SPECIFY) ([place]), 2 Wounds Associated Order Comments: Plan - Right plantar foot - Remove old dressing, cleanse wound with normal saline/wound cleanser and then dry. [place] the base of the wound with Betadine. [...] 2 hours. - Obtain bed with New Rdui Bed IsoTour Blower, for low air-loss feature [...] 01/13/2025 11:[address] APRN.KAREL Schneider [facility] 02/22/2025 9:00 AM Jamar Solis MD [facility] up with ophthalmology post op with dr burton requested in 1 weeks time; please call [phone] ALLERGIES No Known Allergies DISCHARGE MEDICATION: Medication [...] 33% Diagnosis Count 69 -16% Facility [facility] -14% Joe Scale 14 -11% [facility] 11% Current Age 39 10% Creatinine (Min) 7.26 -8% ED visits (365d) 0 -5% Arrival Method SUZI -5% Admissions (90d) 1 Plan of care discussed with Provider, RN, Patient I have performed the [id number]-lr-rwrl and relevant services for a total of [...] and plan of care. Rowan Balderrama MD [facility] [phone] TACROLIMUS BLD-MCNC Collected: 12/06/19 9:31 AM Status: F Source: [facility] Order Comment: Specimen Type : BLOOD SPECIMEN [facility]ing Facility: [facility] Address: [address] [place] [address] TYPE CODE TESTS RESULT OUT OF RANGE REFERENCE UNITS LAB 16021-4(LOINC) Tacrolimus Bld-mCnc 6.3 5.0-20.0 ng/mL Result Comment: [...] using [employer] Alinity i. Performed By: #### 65612-1 # ### [facility] CLIA [id number] [address] [place] [address] [place] CBC PNL BLD AUTO Collected: 5 7:39 AM Status: F Source: [facility] Order Comment: Specimen Type : BLOOD SPECIMEN Ordering Facility: [facility] Address: [address] [place] [address] TYPE CODE TESTS RESULT OUT OF RANGE [...] MCHC RBC Auto-mCnc 32.2 30.5-36.0 g/dL LAB 05884-4(LOINC) RDW RBC-Rto 14.4 11.5-15.0 % LAB 777-3(LOINC) Platelet # Bld Auto 126 Low 150-400 k/uL Result Comment: Results chec ked and verified.No clot detected. LAB 09459-1([facility]) PMV Bld Auto 10.5 9.0-12.7 fL LAB 771-6([facility]) nRBC # Bld Auto <0.01 <0.01 k/uL Performed By: #### 94083-1 # ### [facility] CLIA [id number] [address] [place] [address] [place] BAS METAB 2000 PNL SERPL Collected: 7:39 AM Status: F Source: [facility] Order Comment: Specimen Type : BLOOD SPECIMEN [facility]ing Facility: [facility] Address: [address] [place] [address] TYPE CODE TESTS RESULT OUT OF RANGE REFERENCE UNITS LAB 2345-7(INC) Glucose SerPl-mCnc 181 High 74-99 mg/dL Result Comment: The [place] Diabetes Association (ADA) provides guidance for cutoff [...] Standards of Medical Care in Diabetes 2016, [place] Diabetes Association. Diabetes Care. 2016.39(Suppl 1). LAB 3094-0(LOINC) BUN SerPl-mCnc 44 High 9-24 mg/ dL LAB 2160-0(LOINC) Creat SerPl-mCnc 6.60 High 0.73-1.22 mg/dL LAB 2951-2(LOINC) Sodium SerPl-sCnc 136 136-144 mmol/L LAB 2823-3(LOINC) Potassium SerPl-sCnc 5.2 High 3.7-5.1 mmol/L LAB 2075-0(LOINC) Chloride SerPl-sCnc 96 Low 98-107 mmol/L LAB 2027-9(LOINC) CO2 SerPl-sCnc 25 22-30 mmo l/L LAB 33343-5(LOINC) Anion Gap SerPl-sCnc 15 8-15 mmol/L LAB 80488-5(LOINC) Calcium SerPl-mCnc 8.9 8.5-10.2 mg/dL LAB 10029-8(LOINC) Creatinine + eGFR Pnl SerPlBld 10 Low [...] accurately reflect actual GFR. Performed By: #### 09819-6, #### [facility] CLIA [id number] [address] [place] [address] [place] MAGNESIUM SERPL-MCNC Collected: 12/05/2024 7:39 AM S tatus: F Source: [facility] Order Comment: Specimen Type : BLOOD SPECIMEN Ordering Facility: [facility] Address: [address] [place] [address] TYPE CODE TESTS RESULT OUT OF RANGE REFERENCE UNITS LAB 13899-1(LOINC) Magnesium SerPl-mCnc 2.1 1.7-2.3 mg/dL Performed By: #### 52842-7, 18180-1 #### [facility] CLIA [id number] [address] [place] [address] [place] Observed: 12/04/2024 1:04 PM Status: COMPLETED Source: [facility] HNO ID: [id number] Author: NICOLETTE SCHMITZ MD Service: Endocrinology Author [...] (HCC) Acquired absence of other right toe(s) ([facility]) Acute infarction of spinal cord (HCC) Acute kidney failure, unspecified Acute osteomyelitis of left ankle or foot ([facility]) Acute pulmonary edema (HCC) Anemia Anemia in chronic kidney disease (CKD) Body mass index 40.0-44.9, adult ([facility]) Cerebral infarction due to unspecified occlusion or stenosis of unspecified cerebral artery ([facility]) Chronic kidney disease (CKD), stage IV (severe) ([facility]) Chronic systolic (congestive) heart failure (HCC) Congestive heart failure (CHF) (HCC) Dependence on renal dialysis Depression Diabetes mellitus with chronic kidney disease (HCC) End stage renal disease (HCC) ESRD (end stage renal disease) ([facility]) Essential hypertension GERD (gastroesophageal reflux disease) Heart failure (HCC) HLD (hyperlipidemia) Hyperkalemia Hyperlipidemia Hypertension Hypertensive heart and chronic kidney disease with heart failure and stage 1 through stage 4 chronic kidney disease, or chronic kidney disease (HCC) Hypo-osmolality and hyponatremia Hypomagnesemia Hypothyroidism Insomnia Insomnia Kidney transplant failure ([facility]) Kidney transplant status ([facility]) 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 ([facility]) Major depressive disorder, recurrent, unspecified Mood disorder Morbid (severe) obesity due to excess calories ([facility]) Muscle weakness Neurogenic bowel Neurogenic bowel, not elsewhere classified Neuromuscular dysfunction of bladder Neuromuscular dysfunction of bladder Neuropathy Non-pressure chronic ulcer of other part of unspecified foot with unspecified severity ([facility]) Obstructive sleep apnea Osteomyelitis of vertebra, sacral and sacrococcygeal region ([facility]) Other disorders of phosphorus metabolism Other idiopathic peripheral autonomic neuropathy Other pericardial effusion (noninflammatory) ([facility]) Other pulmonary embolism without acute cor pulmonale, unspecified chronicity ([facility]) Paraplegia ([facility]) Paraplegia, incomplete ([facility]) PDR (proliferative diabetic retinopathy) ([facility]) Penile erosion 04/23/2023 Pressure ulcer of ischium, stage 4 ([facility]) Pressure ulcer of left buttock, unspecified stage 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 Right foot ulcer ([facility]) Sepsis ([facility]) T1DM (type 1 diabetes mellitus) ([facility]) Total, mature age-related cataract Type 2 diabetes ([facility]) Unspecified protein-calorie malnutrition ([facility]) UTI (urinary tract infection) Vitamin D deficiency [...] Bustillo MD Clinical Fellow Endocrinology and Metabolism [place] Pager: [phone] Please note: This is the Main Endocrine [...] Observed: 12/04/2024 12:10 PM Status: COMPLETED Source: [facility] ID: [id number] Author: JUANIS IVAN RN Service: Care Management Author Type: Registered Nurse Type: Care Mgt Progress Note Filed: 12/04/2024 12:15 Note Text: CARE MANAGEMENT PROGRESS NOTE POSSIBLE WEEKEND DC SERVICE DATE: 12/04/2024 SERVICE TIME: 12:10 PM LOS: 2 days Needs Prior to Discharge: Other: See Comment (AVS to SNF, bedside RN updated, IMM) ECF FOC remains [facility], can accept. SNF sent updated notes as of today (12/04). No precert/7000 needed. Tentative MMT BLS transport scheduled for 12/05 @ 1300, trip # [id number]. SNF, pt, and primary team made awre. Ambulance form completed in [facility] for 10-days from 12/05. Dc packet by pts green chart, needs AVS placed inside once available. Per [facility], RN report # [phone]. No COVID test needed, unless symptomatic. Pt [...] Observed: 12/04/2024 12:01 PM Status: COMPLETED Source: [facility] ID: [id number] Author: GILA COHEN APRN.KAREL Service: Nephrology Author Type: Nurse Practitioner Type: Consult Progress Note Filed: 12/04/2024 14:58 Note Text: CONSULT PROGRESS NOTE NEPHROLOGY Q6 SERVICE SERVICE DATE: 12/04/2024 SERVICE TIME: 12:01 PM SUBJECTIVE INTERVAL HISTORY: - ESRD Patient seen on dialysis, single evaluation. Orders confirmed and documented per [facility]. Transferred from ICU to [facility] from admit for hyperkalemia with back [...] 10 ml/min Outpatient dialysis disposition plan: contact [phone] and ask to speak with the hotel front office manager as needed for assistance with post-discharge arrangements. Please DO NOT schedule patient for a nephrology follow up appointment. Kidney care will be provided by the primary gas welding machine operator at their dialysis unit upon hospital discharge. SIGNATURE: Gila Cohen APRN.CNP PATIENT NAME: China Guillen DATE: December 04, 2024 TIME: 12:01 PM PAGER: [phone] FOR AFTER HOUR CONCERNS BETWEEN 5PM - 7AM CONTACT ON-CALL NEPHROLOGY FELLOW [phone] Disclosures: Parts of the current progress note may have been copied from a previous note. PROGRESS Observed: 12/04/2024 11:34 AM Status: COMPLETED Source: [facility] HNO ID: [id number] Author: UYEN JEAN BAPTISTE APRN.CNP Service: General Internal Medicine Author Type: Nurse Practitioner Type: Progress Notes Filed: 12/04/2024 11:46 Note Text: DEPARTMENT OF HOSPITAL MEDICINE MICU TO [facility] TRANSFER ACCEPTANCE NOTE Hospital Medicine/Primary Attending: Mita Hauser MD NIGHT AND WEEKEND COVERAGE: Patient admitted to [facility]. Please page me at Uyen Jean Baptiste APRN.CNP for patient issues until 729. After that please page [facility] staff assigned (as noted in EPIC banner) [place] [phone]. Subjective Patient seen on H81-2 today Very [place] and blind R eye red s/p vitrectomy [...] -- 12/02/24 2201 activity - mobilize patient ([place], [place]) VTE Prophylaxis: VTE prophylaxis appropriate Disposition: from SNF; awaiting CM to determine if need precert to return Plan of care discussed with Patient Plan communicated to: N/A SIGNATURE: Uyen Jean Baptiste APRN.CNP PATIENT NAME: China Guillen DATE: December 04, 2024 TIME: 1135AM CBC PNL BLD AUTO Collected: 5 5:17 AM Status: F Source: [facility] Order Comment: Specimen Type : BLOOD SPECIMEN Ordering Facility: [facility] Address: [address] [place] [address] TYPE CODE TESTS RESULT OUT OF RANGE [...] MCHC RBC Auto-mCnc 31.1 30.5-36.0 g/dL LAB 39093-2(LOINC) RDW RBC-Rto 15.0 11.5-15.0 % LAB 777-3(INC) Platelet # Bld Auto 128 Low 150-400 k/uL LAB 04503-9([facility]) PMV Bld Auto 10.9 9.0-12.7 fL LAB 771-6([facility]) nRBC # Bld Auto <0.01 <0.01 k/uL Performed By: #### 09081-1 # ### [facility] CLIA [id number] [address] [place] [address] [place] BAS METAB 2000 PNL SERPL Collected: 5:17 AM Status: F Source: [facility] Order Comment: Specimen Type : BLOOD SPECIMEN Ordering Facility: [facility] Address: [address] [place] [address] TYPE CODE TESTS RESULT OUT OF RANGE REFERENCE UNITS LAB 2345-7([facility]) Glucose SerPl-mCnc 212 High 74-99 mg/dL Result Comment: The [place] Diabetes Association (ADA) provides guidance for cutoff [...] Standards of Medical Care in Diabetes 2016, [place] Diabetes Association. Diabetes Care. 2016.39(Suppl 1). LAB 3094-0(LOINC) BUN SerPl-mCnc 58 High 9-24 mg/ dL LAB 2160-0(LOINC) Creat SerPl-mCnc 7.90 High 0.73-1.22 mg/dL LAB 2951-2(LOINC) Sodium SerPl-sCnc 136 136-144 mmol/L LAB 2823-3(LOINC) Potassium SerPl-sCnc 5.3 High 3.7-5.1 mmol/L LAB 2075-0(LOINC) Chloride SerPl-sCnc 95 Low 98-107 mmol/L LAB 2027-9(LOINC) CO2 SerPl-sCnc 24 22-30 mmo l/L LAB 59855-2(LOINC) Anion Gap SerPl-sCnc 17 High 8-15 mmol/L LAB 58061-5(LOINC) Calcium SerPl-mCnc 8.9 8.5-10.2 mg/dL LAB 01121-0(LOINC) Creatinine + eGFR Pnl SerPlBld 8 Low [...] accurately reflect actual GFR. Performed By: #### 65165-7, #### [facility] CLIA [id number] [address] [place] [address] [place] MAGNESIUM SERPL-MCNC Collected: 12/04/2024 5:17 AM S tatus: F Source: [facility] Order Comment: Specimen Type : BLOOD SPECIMEN Ordering Facility: [facility] Address: [address] [place] [address] TYPE CODE TESTS RESULT OUT OF RANGE REFERENCE UNITS LAB 32300-5([facility]) Magnesium SerPl-mCnc 2.2 1.7-2.3 mg/dL Performed By: #### 70622-2, #### [facility] CLIA [id number] [address] [place] [address] [place] TACROLIMUS BLD-MCNC Collected: 12/05/19 5:17 AM Status: F Source: [facility] Order Comment: Specimen Type : BLOOD SPECIMEN [facility]ing Facility: [facility] Address: [address] [place] [address] TYPE CODE TESTS RESULT OUT OF RANGE REFERENCE UNITS LAB 67912-6(INC) Tacrolimus Bld-mCnc 3.0 Low 5.0-20.0 ng/mL Result [...] situation. Test performed by chemiluminescent immunoassay using [employer] Alinity i. Performed By: #### 98695-4 # ### [facility] CLIA [id number] [address] [place], [place] [id number] [place] PROGRESS Observed: 12/03/2024 6:29 PM Status: COMPLETED Source: [facility] HNO ID: [id number] Author: MING ABEL MD Service: Hospital Medicine Author Type: Physician Type: Progress Notes Filed: 12/03/2024 19:02 Note Text: DEPARTMENT OF HOSPITAL MEDICINE MICU TO RNF TRANSFER ACCEPTANCE NOTE Hospital Medicine/Primary Attending: Jeimy Forte MD NIGHT AND WEEKEND COVERAGE: Patient admitted to [facility]. Please page me at [phone] for patient issues until 729. After that please page [facility] staff assigned (as noted in EPIC banner) [place] [phone]. Subjective Brief Hospital Course: This is a 39YO M w/ MHx significant for ESRD s/p failed kidney transplant now back on IHD MWF since 2022, T1DM, Pressure ulcer of sacrum, GERD, depression, anemia, HLD, cerebral infarct, spinal cord infarction c/b paraplegia, neurogenic bladder with SPC, neurogenic bowel s/p colostomy, chronic osteomyelitis, HTN, migraine who presented to ED as a SUZI from [facility] after routine labs showing K of [...] MICU and received a short session of EMERGENCY RESPONSE TECHNICIAN overnight. Repeat K this AM was 5.5 and then 4.0. Given improvement he was stable for transfer to [facility]. On arrival he was HDS with [...] 1904 -- 12/02/241 activity - mobilize patient ([place]) VTE Prophylaxis: VTE prophylaxis appropriate Disposition: To be determined Plan of care discussed with Patient Plan communicated to: N/A SIGNATURE: Ming Abel MD PATIENT NAME: China Guillen DATE: December 03, 2024 TIME: 6:30 PM GAS + CO PNL BLDV Collected: 12:13 PM Status: F Source: [facility] Order Comment: Specimen Type : VENOUS BLOOD SPECIMEN Ordering Facility: [facility] Address: [address] [place] [address] [place] [address] TYPE CODE TESTS RESULT OUT OF RANGE REFERENCE UNITS LAB 2746-6(LOINC) pH BldV 7.43 High 7.32-7.42 LAB 2021-4(LOINC) pCO2 BldV 46 42-55 mmHg LAB 2705-2(LOINC) pO2 BldV 57 High 35-45 mmHg LAB 2711-0(LOINC) SaO2 % BldV 88 High 60-85 % LAB 1927-3(LOINC) Base excess BldV Calc-sCnc 5 High 0-2 mmol/L LAB 01776-1(LOINC) HCO3 BldV-sCnc 30 High 24-28 mmol/L LAB 2716-9(INC) OxyHgb MFr BldV 86 High 60-85 % LAB 2032-1(INC) COHgb MFr BldV 1.8 0.0-2.0 % Result Comment: Carboxyhemog lobin Reference Range for Smokers: 2.0-8.0% LAB 2614-6(INC) MetHgb MFr Bld 0.8 0.0-1.5 % LAB 2947-0(INC) Sodium Bld-sCnc 139 136-144 mmol/L LAB 6298-4([facility]) Potassium Bld-sCnc 4.0 3.5-5.0 mmol/L LAB 19557-9(INC) Ca-I Bld-mCnc 1.16 1.08-1.30 m mol/L LAB 08583-6([facility]) Ca-I adj pH7.4 BldA-sCnc 1.17 1.08-1.30 mmol/L LAB 2339-0(INC) Glucose Bld-mCnc 145 High 60-105 mg/dL LAB 29812-3(INC) Lactate Bld-sCnc 1.1 0.5-2.2 mmol/L LAB 718-7([facility]) Hgb Bld-mCnc 11.8 Low 13.0-17.0 g/dL LAB 4544-3(INC) Hct VFr Bld Auto 36.4 Low 39.0-51.0 % LAB VTMP TEMPERATURE, BODY 37.0 C LAB VO2TH O2 THERAPY RA=Room Air Performed By: #### 21381-5 # ### [facility] CLIA [id number] [address] [place] [address] [place] Observed: 12/03/2024 10:40 AM Status: COMPLETED Source: [facility] HNO ID: [id number] Author: SHARON DALY APRN.SWEAT BOX ATTENDANT Service: Wound Care Team Author Type: Nurse Practitioner Type: Consults Filed: 12/03/2024 10:54 Note Text: WOUND CARE SERVICE SUPERVISOR PARTIAL DENTURE DEPARTMENT CONSULT NOTE SERVICE DATE: 12/03/2024 SERVICE TIME: [...] disease (CKD) Body mass index 40.0-44.9, adult ([facility]) Cerebral infarction due to unspecified occlusion or stenosis of unspecified cerebral artery ([facility]) Chronic kidney disease (CKD), stage IV (severe) ([facility]) Chronic systolic (congestive) heart failure (HCC) Congestive heart failure (CHF) ([facility]) Dependence on renal dialysis Depression Diabetes mellitus with chronic kidney disease ([facility]) End stage renal disease ([facility]) ESRD (end stage renal disease) ([facility]) Essential hypertension GERD (gastroesophageal reflux disease) Heart failure ([facility]) HLD (hyperlipidemia) Hyperkalemia Hyperlipidemia Hypertension Hypertensive heart and chronic kidney disease with heart failure and stage 1 through stage 4 chronic kidney disease, or chronic kidney disease ([facility]) Hypo-osmolality and hyponatremia Hypomagnesemia Hypothyroidism Insomnia Insomnia Kidney transplant failure ([facility]) Kidney transplant status ([facility]) 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 ([facility]) Major depressive disorder, recurrent, unspecified Mood disorder Morbid (severe) obesity due to excess calories ([facility]) Muscle weakness Neurogenic bowel Neurogenic bowel, not elsewhere classified Neuromuscular dysfunction of bladder Neuromuscular dysfunction of bladder Neuropathy Non-pressure chronic ulcer of other part of unspecified foot with unspecified severity ([facility]) Obstructive sleep apnea Osteomyelitis of vertebra, sacral and sacrococcygeal region ([facility]) Other disorders of phosphorus metabolism Other idiopathic peripheral autonomic neuropathy Other pericardial effusion (noninflammatory) ([facility]) Other pulmonary embolism without acute cor pulmonale, unspecified chronicity ([facility]) Paraplegia ([facility]) Paraplegia, incomplete ([facility]) PDR (proliferative diabetic retinopathy) ([facility]) Penile erosion 04/23/2023 Pressure ulcer of ischium, stage 4 ([facility]) Pressure ulcer of left buttock, unspecified stage 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 Right foot ulcer ([facility]) Sepsis ([facility]) T1DM (type 1 diabetes mellitus) ([facility]) Total, mature age-related cataract Type 2 diabetes ([facility]) Unspecified protein-calorie malnutrition ([facility]) UTI (urinary tract infection) Vitamin D deficiency [...] turns in bed Neuro: Oriented X 3, [place] Presenting wound information: Wound 06/15/24 2300 Diabetic [...] 12/03/2024 9:03 AM Wound Image Site Assessment [place]-Wound Assessment Moist ;Scarred Drainage Description Colorless [...] with normal saline/wound cleanser and then dry. [place] the base of the wound with Betadine. [...] 2 hours. - Obtain bed with [place] Bed IsoTour Blower, for low air-loss feature [...] Review under the Scanned Docs tab in Taplet. The purpose of the photo(s) is to [...] which included preparing to see the patient, vsqr-pv-ache patient care, completing clinical documentation, performing a medically appropriate examination, counseling and educating the patient/family/caregiver, and communicating with other HCPs (not separately reported). SIGNATURE: Sharon Daly, MSN, SUPERVISOR PARTIAL DENTURE DEPARTMENT, SWEAT BOX ATTENDANT, CWOCN PATIENT NAME: China Guillen DATE: December 03, 2024 TIME: 10:41 AM PROGRESS Observed: 12/03/2024 10:28 AM Status: COMPLETED Source: [facility] ID: [id number] Author: JEIMY FORTE MD Service: Critical Care [...] HTN, migraine Hospital Course: Patient was at [facility] and he underwent vitrectomy and cataract surgery. [...] his surgery. Admitted to MICU for urgent EMERGENCY RESPONSE TECHNICIAN. Significant New Events Past 24 hrs: Received short session of EMERGENCY RESPONSE TECHNICIAN overnight, K this AM 5.5, planning for [...] Observed: 12/03/2024 10:04 AM Status: COMPLETED Source: [facility] HNO ID: [id number] Author: DIAN ADLER LSW Service: Care Management Author Type: Rotary Cutter Feeder Type: Care Mgt Initial Assessment Filed: 12/03/2024 10:04 Note Text: CARE MANAGEMENT: ASSESSMENT AND DISCHARGE PLAN SERVICE DATE: December 03, 2024 SERVICE TIME: 10:04 AM PCP: Lang Peres DO Primary Contact: No emergency contact information on file. Admission Status: Inpatient Insurance Provider: [facility] MEDICARE ADVANTAGE PPO Discharge Planning requested by: Per Department Practice Potential Transition Plans To Be Determined Advance Directives Current Advance Directive: Health Care Power of Customer Experience Analyst In Chart: No Tank Setter Attempted to Assist with AD Completion: Yes Action: Education Provided, Patient Unwilling Current Living Arrangements and Support Lives with: Other person(s) (Pt is from [facility]) Pt is from [facility] Type of Residence: Extended Care Facility (Pt is from [facility]) Care Facility Name: Pt is from [facility] Support: Friends/neighbors, Family members How do you manage to accomplish the following: Needs Assistance: Ambulation, Bathe/Shower, Dress, Meals/Meal Prep, Going to the bathroom, Medication Management, Transportation to appointments/community Current Services/Equipment Current Post-Acute Service(s): Other: See Comment, Dialysis (Pt is from [facility]) Discharge Planning Patient Goal(s): General wellness [place] of Choice Explained: [place] of Choice Given: Yes (Pt reported preference to return to [facility]) Are you interested in bedside delivery of your medications? Yes Discharge Planning Participant(s): Patient Patient/Family Comments: . Pt reported: I'm from [facility]. Yes I like this place and want to go back Caregiver Assessment: Caregiver is ready, willing and able to meet the patient's needs as recommended by the inter-professional team: Other: See Comment (TBD) Transport at Discharge: Transportation Arrangements: Ambulance Transportation Agency and Phone #:: [facility] [phone] Destination: [facility] Financial Care Management Responsibility: None Needs Prior to Discharge: Needs Prior to Discharge: To Be Determined SW met with pt at bedside to complete this assessment. SW introduced herself and explained SW role. Pt is a 39 year old male admitted to MICU for further management of care. Pt reported: I'm from [facility]. Yes I like this place and want to go back. I need help getting around and [place] [facility] provides me with everything I need. Yes they take me to my dialysis sessions. SW provided emotional support and thanked pt for preference. SW then asked pt for family emergent contact information pt reported- I have sister her name is Valente [phone] and she lives in [place]. SW thanked pt for family contact information. Needs TBD, pt is from [facility]. Will need ambulance transport arranged closer to discharge date.SW will continue to follow. This SW then received phone call from [facility] [[phone]] admission rep Toni who reported: China is from our ECF at [facility] and yes we are willing to re-accept him please call us at [phone] once he is ready to return to our facility. SW thanked admission rep for this information. Please see Treatment Team for Care Management Weekend coverage. SIGNATURE: DAMARI Carver PATIENT NAME: China Guillen DATE: December 03, 2024 TIME: 10:04 AM CONSULT Observed: 12/03/2024 8:53 AM Status: COMPLETED Source: [facility] ID: [id number] Author: MORALES DÍAZ MD Service: Ophthalmology Author [...] Dr. Díaz Please [place] [phone] with any questions or concerns Commonly used [...] Trouble breathing Contact Dr. Munir Burton at [phone] weekdays from 8am-5pm During non-business hours, please call [phone] or ext [phone] and ask for the eye doctor infusion rn. GAS + CO PNL BLDV Collected: 5 6:52 AM Status: F Source: [facility] Comment: Specimen Type : VENOUS BLOOD SPECIMEN [facility]ing Facility[facility] Address: [address] [place] [address] TYPE CODE TESTS RESULT OUT OF RANGE REFERENCE UNITS LAB 2746-6(LOINC) pH BldV 7.40 7.32-7.42 LAB 2020-4(LOINC) pCO2 BldV 50 42-55 mmHg LAB 2705-2(LOINC) pO2 BldV 51 High 35-45 mmHg LAB 2711-0(LOINC) SaO2 % BldV 84 60-85 % LAB 1927-3(LOINC) Base excess BldV Calc-sCnc 5 High 0-2 mmol/L LAB 14303-0(LOINC) HCO3 BldV-sCnc 30 High 24-28 mmol/L LAB 2716-9(LOINC) OxyHgb MFr BldV 81 60-85 % LAB 2032-1(LOINC) COHgb MFr BldV 2.0 0.0-2.0 % Result Comment: Carboxyhemog lobin Reference Range for Smokers: 2.0-8.0% LAB 2614-6(LOINC) MetHgb MFr Bld 1.0 0.0-1.5 % LAB 2947-0(LOINC) Sodium Bld-sCnc 138 136-144 mmol/L LAB 6298-4(LOINC) Potassium Bld-sCnc 5.5 High 3.5-5.0 mmol/L LAB 76519-1(LOINC) Ca-I Bld-mCnc 1.13 1.08-1.30 mmol/L LAB 42718-4(LOINC) Ca-I adj pH7.4 BldA-sCnc 1.12 1.08-1.30 mmol/L LAB 2339-0(LOINC) Glucose Bld-mCnc 155 High 60-105 mg/dL LAB 91035-0(LOINC) Lactate Bld-sCnc 1.2 0.5-2.2 mmol/L LAB 718-7(LOINC) Hgb Bld-mCnc 11.8 Low 13.0-17.0 g/dL LAB 4544-3(LOINC) Hct VFr Bld Auto 36.5 Low 39.0-51.0 % LAB VTMP TEMPERATURE, BODY 37.0 C LAB LITERBG LITERS 1 Liters/m in LAB VO2TH O2 THERAPY NC = Nasal Cannula Performed By: #### 01143-6 # ### [facility] CLIA [id number] [address] [place] [address] STATES OF TRUMAN TACROLIMUS BLD-MCNC Collected: 12/04/19 5:16 AM Status: F Source: [facility] Order Comment: Specimen Type : BLOOD SPECIMEN [facility]ing Facility: [facility] Address: [address] [place] [address] TYPE CODE TESTS RESULT OUT OF RANGE REFERENCE UNITS LAB 41542-0([facility]) Tacrolimus Bld-mCnc 3.8 Low 5.0-20.0 ng/mL [...] using Buchanan Alinity i. Performed By: #### 30492-5 # ### [facility] CLIA [id number] [address] [place] [address] [place]UM[place] BAS METAB 2000 PNL SERPL Collected: 5:16 AM Status: F Source: [facility] Comment: Specimen Type : BLOOD SPECIMEN [facility]ing Facility: [facility] Address: [address] [place] [address] TYPE CODE TESTS RESULT OUT OF RANGE REFERENCE UNITS LAB 2345-7(LOINC) Glucose SerPl-mCnc 148 High 74-99 mg/dL Result Comment: The [place] Diabetes Association (ADA) provides guidance for cutoff [...] Standards of Medical Care in Diabetes 2016, [place] [employer] Association. Diabetes Care. 2016.39(Suppl 1). LAB [...] CO2 SerPl-sCnc 26 22-30 mmo l/L LAB 21823-0(LOINC) Anion Gap SerPl-sCnc 15 8-15 mmol/L LAB 48009-6(LOINC) Calcium SerPl-mCnc 9.3 8.5-10.2 mg/dL LAB 02702-4(LOINC) Creatinine + eGFR Pnl SerPlBld 9 Low [...] accurately reflect actual GFR. Performed By: #### 52436-7, #### [facility] CLIA [id number] [address] [place] [address] MAGNESIUM SERPL-MCNC Collected: 12/03/2024 5:16 AM S tatus: F Source: [facility] Order Comment: Specimen Type : BLOOD SPECIMEN Ordering Facility: [facility] Address: [address] [place] [address] TYPE CODE TESTS RESULT OUT OF RANGE REFERENCE UNITS LAB 76083-6([facility]) Magnesium SerPl-mCnc 2.3 1.7-2.3 mg/dL Performed By: #### 62735-7, #### [facility] CLIA [id number] [address] [place] [address] CBC PNL BLD AUTO Collected: 5:16 AM Status: F Source: [facility] Order Comment: Specimen Type : BLOOD SPECIMEN Ordering Facility: [facility] Address: [address] [place] [address] TYPE CODE TESTS RESULT OUT OF RANGE [...] MCHC RBC Auto-mCnc 32.8 30.5-36.0 g/dL LAB 92567-3(LOINC) RDW RBC-Rto 14.9 11.5-15.0 % LAB 777-3(LOINC) Platelet # Bld Auto 173 150-400 k/uL LAB 05107-6([facility]) PMV Bld Auto 11.5 9.0-12.7 fL LAB 771-6([facility]) nRBC # Bld Auto <0.01 <0.01 k/uL Performed By: #### 65997-3 # ### [facility] CLIA [id number] [address] [place] [address] [place] BUN P DIALYSIS SERPL-MCNC Collected: 12/03/2024 5:07 AM Status: F Source: [facility] Order Comment: Specimen Type : BLOOD SPECIMEN Ordering Facility: [facility] Address: [address] [place] [address] TYPE CODE TESTS RESULT OUT OF RANGE REFERENCE UNITS LAB 47165-2([facility]) BUN p dialysis SerPl-mCnc 57 High 9-24 mg/dL LAB BUNRAT UREA REDUCTION RATIO WITH BUNPR 37 % Performed By: #### 77840-5 # ### [facility] CLIA [id number] [address] [place] [address] [place]UM[place] BUN PRE DIAL SERPL-MCNC Collected: 12/03/2024 2:33 AM Status: F Source: [facility] Comment: Specimen Type : BLOOD SPECIMEN Ordering Facility: [facility] Address: [address] [place] [address] TYPE CODE TESTS RESULT OUT OF RANGE REFERENCE UNITS LAB 31451-1([facility]) BUN pre dial SerPl-mCnc 90 High 9-24 mg/dL Performed By: #### 05923-7 # ### [facility] CLIA [id number] [address] [place] [address] [place] GAS + CO PNL BLDV Collected: 1:51 AM Status: F Source: [facility] Comment: Specimen Type : VENOUS BLOOD SPECIMEN [facility]ing Facility: [facility] Address: [address] [place] [address] TYPE CODE TESTS RESULT OUT OF RANGE REFERENCE UNITS LAB 2746-6([facility]) pH BldV 7.38 7.32-7.42 LAB 2021-4(LOINC) pCO2 BldV 49 42-55 mmHg LAB 2705-2(LOINC) pO2 BldV 61 High 35-45 mmHg LAB 2711-0(LOINC) SaO2 % BldV 89 High 60-85 % LAB 1927-3(LOINC) Base excess BldV Calc-sCnc 3 High 0-2 mmol/L LAB 06422-5(LOINC) HCO3 BldV-sCnc 28 24-28 mmol/L LAB 2716-9(INC) OxyHgb MFr BldV 86 High 60-85 % LAB 2032-1(INC) COHgb MFr BldV 1.9 0.0-2.0 % Result Comment: Carboxyhemog lobin Reference Range for Smokers: 2.0-8.0% LAB 2614-6([facility]) MetHgb MFr Bld 1.5 0.0-1.5 % LAB 2947-0(INC) Sodium Bld-sCnc 133 Low 136-144 mmol/L LAB 6298-4(INC) Potassium Bld-sCnc 6.7 High Alert 3.5-5.0 mmol/L LAB 51989-3([facility]) Ca-I Bld-mCnc 1.12 1.08-1.30 mmol/L LAB 03462-4([facility]) Ca-I adj pH7.4 BldA-sCnc 1.11 1.08-1.30 mmol/L LAB 2339-0(INC) Glucose Bld-mCnc 232 High 60-105 mg/dL LAB 27242-9(INC) Lactate Bld-sCnc 1.2 0.5-2.2 mmol/L LAB 718-7(INC) Hgb Bld-mCnc 12.1 Low 13.0-17.0 g/dL LAB 4544-3(INC) Hct VFr Bld Auto 37.2 Low 39.0-51.0 % LAB VTMP TEMPERATURE, BODY 37.0 C LAB LITERBG LITERS 1 Liters/m in LAB VO2TH O2 THERAPY NC = Nasal Cannula Performed By: #### 76595-9 # ### [facility] CLIA [id number] [address] [place] [address] STATES OF TRUMAN CONSULT Observed: 12/02/2024 10:59 PM Status: COMPLETED Source: [facility] ID: [id number] Author: JR BERNAL MD Service: Nephrology Author [...] s/p DDKTt who normally has dialysis at [facility], missed dialysis due to eye surgery yesterday, [...] for management of hyperkalemia. Patient was at [facility] and he underwent vitrectomy and cataract surgery. [...] Acquired absence of left leg above knee ([facility]) Acquired absence of other right toe(s) ([facility]) Acute infarction of spinal cord ([facility]) Acute kidney failure, unspecified Acute osteomyelitis of left ankle or foot ([facility]) Acute pulmonary edema ([facility]) Anemia Anemia in chronic kidney disease (CKD) Body mass index 40.0-44.9, adult ([facility]) Cerebral infarction due to unspecified occlusion or stenosis of unspecified cerebral artery ([facility]) Chronic kidney disease (CKD), stage IV (severe) ([facility]) Chronic systolic (congestive) heart failure ([facility]) Congestive heart failure (CHF) ([facility]) Dependence on renal dialysis Depression Diabetes mellitus with chronic kidney disease ([facility]) End stage renal disease ([facility]) ESRD (end stage renal disease) ([facility]) Essential hypertension GERD (gastroesophageal reflux disease) Heart failure ([facility]) HLD (hyperlipidemia) Hyperkalemia Hyperlipidemia Hypertension Hypertensive heart and chronic kidney disease with heart failure and stage 1 through stage 4 chronic kidney disease, or chronic kidney disease ([facility]) Hypo-osmolality and hyponatremia Hypomagnesemia Hypothyroidism Insomnia Insomnia Kidney transplant failure ([facility]) Kidney transplant status ([facility]) penitentiary current use of insulin ([facility]) Major depressive disorder, recurrent, unspecified Mood disorder Morbid (severe) obesity due to excess calories ([facility]) Muscle weakness Neurogenic bowel Neurogenic bowel, not elsewhere classified Neuromuscular dysfunction of bladder Neuromuscular dysfunction of bladder Neuropathy Non-pressure chronic ulcer of other part of unspecified foot with unspecified severity ([facility]) Obstructive sleep apnea Osteomyelitis of vertebra, sacral and sacrococcygeal region ([facility]) Other disorders of phosphorus metabolism Other idiopathic peripheral autonomic neuropathy Other pericardial effusion (noninflammatory) ([facility]) Other pulmonary embolism without acute cor pulmonale, unspecified chronicity ([facility]) Paraplegia ([facility]) Paraplegia, incomplete ([facility]) PDR (proliferative diabetic retinopathy) ([facility]) Penile erosion 04/23/2023 Pressure ulcer of ischium, stage 4 ([facility]) Pressure ulcer of left buttock, unspecified stage 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 Right foot ulcer ([facility]) Sepsis ([facility]) T1DM (type 1 diabetes mellitus) ([facility]) Total, mature age-related cataract Type 2 diabetes ([facility]) Unspecified protein-calorie malnutrition ([facility]) UTI (urinary tract infection) Vitamin D deficiency [...] Collected: 12/02/2024 10:36 PM Status: F Source: [facility] Order Comment: Specimen Type : SWAB [facility] Facility[facility] Address: [address] [place] [address] TYPE CODE TESTS RESULT OUT OF RANGE REFERENCE UNITS LAB 77439-9(LOINC ) SA+MRSA Pnl Nose KARLI+probe Methicillin-SUSCE PTIBLE Staphylococcus aureus Detected Abnormal Not Detected Performed By: #### SAPCR ### # [facility] CLIA [id number] [address] [place] [address] [place] BAS METAB 2000 PNL SERPL Collected: 10:24 PM Status: F Source: [facility] Order Comment: Specimen Type : BLOOD SPECIMEN [facility] Facility: [facility] Address: [address] [place] [address] TYPE CODE TESTS RESULT OUT OF RANGE REFERENCE UNITS LAB 2345-7(LOINC) Glucose SerPl-mCnc 207 High 74-99 mg/dL Result Comment: The [place] Diabetes Association (ADA) provides guidance for cutoff [...] Standards of Medical Care in Diabetes 2016, [place] [employer] Association. Diabetes Care. 2016.39(Suppl 1). LAB 3094-0(LOINC) BUN SerPl-mCnc 89 High 9-24 mg/ dL LAB 2160-0(LOINC) Creat SerPl-mCnc 10.01 High 0.73-1.22 mg/dL LAB 2951-2(LOINC) Sodium SerPl-sCnc 132 Low 136-144 mmol/L LAB 2823-3(LOINC) Potassium SerPl-sCnc 6.7 High Alert 3.7-5.1 mmol/L LAB 2075-0(LOINC) Chloride SerPl-sCnc 91 Low 98-107 mmol/L LAB 2028-9(LOINC) CO2 SerPl-sCnc 25 22-30 mmo l/L LAB 43405-5(LOINC) Anion Gap SerPl-sCnc 16 High 8-15 mmol/L LAB 31920-1(LOINC) Calcium SerPl-mCnc 9.1 8.5-10.2 mg/dL LAB 88406-3(LOINC) Creatinine + eGFR Pnl SerPlBld 6 Low [...] accurately reflect actual GFR. Performed By: #### 13877-2, 65772-0 #### [facility] CLIA [id number] [address] [place] [address] OF TRUMAN MAGNESIUM SERPL-MCNC Collected: 025 10:24 PM Status: F Source: [facility] Order Comment: Specimen Type : BLOOD SPECIMEN [facility] Facility: [facility] Address: [address] [place] [address] TYPE CODE TESTS RESULT OUT OF RANGE REFERENCE UNITS LAB 50908-1(LOINC) Magnesium SerPl-mCnc 2.2 1.7-2.3 mg/dL Performed By: #### 42942-7, 88548-4 #### [facility] CLIA [id number] [address] [place] [address] OF TRUMAN GAS + CO PNL BLDV Collected: 10:24 PM Status: F Source: [facility] Comment: Specimen Type : VENOUS BLOOD SPECIMEN [facility]ing Facility: [facility] Address: [address] [place] [address] TYPE CODE TESTS RESULT OUT OF RANGE REFERENCE UNITS LAB 2746-6(LOINC) pH BldV 7.40 7.32-7.42 LAB 31965-4(LOINC) pH temp adj BldV 7.40 7.32-7.42 LAB 2020-4(LOINC) pCO2 BldV 46 42-55 mmHg LAB 84225-8(LOINC) pCO2 temp adj BldV 46 42-55 mmHg LAB 2705-2(LOINC) pO2 BldV 72 High 35-45 mmHg LAB 21994-5(LOINC) pO2 temp adj BldV 71 High 35-45 mmHg LAB 2711-0(LOINC) SaO2 % BldV 93 High 60-85 % LAB 1927-3(LOINC) Base excess BldV Calc-sCnc 3 High 0-2 mmol/L LAB 00343-7(LOINC) HCO3 BldV-sCnc 28 24-28 mmol/L LAB 2716-9(LOINC) OxyHgb MFr BldV 91 High 60-85 % LAB 2-1(LOINC) COHgb MFr BldV 1.6 0.0-2.0 % Result Comment: Carboxyhemog lobin Reference Range for Smokers: 2.0-8.0% LAB 2614-6(LOINC) MetHgb MFr Bld 0.6 0.0-1.5 % LAB 2947-0(LOINC) Sodium Bld-sCnc 134 Low 136-144 mmol/L LAB 6298-4(LOINC) Potassium Bld-sCnc 6.4 High Alert 3.5-5.0 mmol/L LAB 22409-0(LOINC) Ca-I Bld-mCnc 1.15 1.08-1.30 mmol/L LAB 73257-9([facility]) Ca-I adj pH7.4 BldA-sCnc 1.15 1.08-1.30 mmol/L LAB 2339-0(LOINC) Glucose Bld-mCnc 216 High 60-105 mg/dL LAB 82758-8([facility]) Lactate Bld-sCnc 1.5 0.5-2.2 mmol/L LAB 718-7([facility]) Hgb Bld-mCnc 12.5 Low 13.0-17.0 g/dL LAB 4544-3([facility]) Hct VFr Bld Auto 38.3 Low 39.0-51.0 % LAB VTMP TEMPERATURE, BODY 36.9 C LAB LITERBG LITERS 1 Liters/m in LAB VO2TH O2 THERAPY NC = Nasal Cannula Performed By: #### 12116-1 # ### [facility] CLIA [id number] [address] [place] [address] STATES OF [facility] HISTORY PHYSICAL Observed: 12/02/2024 10:02 PM Status: COMPLETED Source: [facility] HNO ID: [id number] Author: OSCAR CHOWDHURY MD Service: Critical Care [...] presented to ED as a SUZI from [facility] for hyperkalemia found on routine labs. Pt [...] Acquired absence of left leg above knee ([facility]) Acquired absence of other right toe(s) ([facility]) Acute infarction of spinal cord ([facility]) Acute kidney failure, unspecified Acute osteomyelitis of left ankle or foot ([facility]) Acute pulmonary edema ([facility]) Anemia Anemia in chronic kidney disease (CKD) Body mass index 40.0-44.9, adult ([facility]) Cerebral infarction due to unspecified occlusion or stenosis of unspecified cerebral artery ([facility]) Chronic kidney disease (CKD), stage IV (severe) ([facility]) Chronic systolic (congestive) heart failure ([facility]) Congestive heart failure (CHF) ([facility]) Dependence on renal dialysis Depression Diabetes mellitus with chronic kidney disease ([facility]) End stage renal disease ([facility]) ESRD (end stage renal disease) ([facility]) Essential hypertension GERD (gastroesophageal reflux disease) Heart failure ([facility]) HLD (hyperlipidemia) Hyperkalemia Hyperlipidemia Hypertension Hypertensive heart and chronic kidney disease with heart failure and stage 1 through stage 4 chronic kidney disease, or chronic kidney disease ([facility]) Hypo-osmolality and hyponatremia Hypomagnesemia Hypothyroidism Insomnia Insomnia Kidney transplant failure ([facility]) Kidney transplant status ([facility]) 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 ([facility]) Major depressive disorder, recurrent, unspecified Mood disorder Morbid (severe) obesity due to excess calories ([facility]) Muscle weakness Neurogenic bowel Neurogenic bowel, not elsewhere classified Neuromuscular dysfunction of bladder Neuromuscular dysfunction of bladder Neuropathy Non-pressure chronic ulcer of other part of unspecified foot with unspecified severity ([facility]) Obstructive sleep apnea Osteomyelitis of vertebra, sacral and sacrococcygeal region ([facility]) Other disorders of phosphorus metabolism Other idiopathic peripheral autonomic neuropathy Other pericardial effusion (noninflammatory) ([facility]) Other pulmonary embolism without acute cor pulmonale, unspecified chronicity ([facility]) Paraplegia ([facility]) Paraplegia, incomplete ([facility]) PDR (proliferative diabetic retinopathy) ([facility]) Penile erosion 04/23/2023 Pressure ulcer of ischium, stage 4 ([facility]) Pressure ulcer of left buttock, unspecified stage [...] hypoglycemia not responsive to oral intervention. Notify SWEAT BOX ATTENDANT/MD, Disp: , Rfl: LANTUS U-100 INSULIN 100 [...] Intake/Output Summary (Last 24 hours) at 12/02/2024 5600 Last data filed at 12/02/2024 2206 Gross [...] presented to ED as a SUZI from [facility] for hyperkalemia found on routine labs after [...] 12/02/241903 -- 12/02/242200 activity - mobilize patient (mn,md) VTE Prophylaxis: already anticoagulated ICU Checklist A= Assess, Prevent, Manage Pain C= Choice of Sedation and Analgesia B= Both Spontaneous Awakening and Breathing Trials D= Delirium: Assess, Prevent and Manage E= Early Mobility/Excercise ICU Mobility: F= Family Engagement and Empowerment ICU Disposition: Prevention: VTE Prophylaxis: Kassie Peacock DO PGY-3 Internal Medicine December 02, 2024 10:09 PM [facility] STAFF PHYSICIAN NOTE OF PERSONAL INVOLVEMENT [...] - s/p left mechanical vitrectomy 12/02/24 at [facility]. Routine labs monie-op found to have hyperkalemia. Hyperkalemia, missed HD S/p kidney tx, failed, on iHD (left AVF) S/p left mechanical vitrectomy 12/02/24 at [facility] T2DM Paraplegic, neurogenic bladder Hx PE [...] Observed: 12/02/2024 9:19 PM Status: COMPLETED Source: [facility] HNO ID: [id number] Author: LAVARO PERDOMO RN Service: Emergency Medicine Author Type: Registered Nurse Type: ED Notes Filed: 12/02/2024 21:20 Note Text: Report given to zaynab CHAN, awaiting room cleaning ED PROGRESS NOTE (PROVIDER) Observed: 12/02/2024 8:30 PM Status: COMPLETED Source: [facility] HNO ID: [id number] Author: KAREN MUELLER MD Service: Emergency Medicine [...] ED Course User Index [RC] Olivia Salvador, JACINTO.SWEAT BOX ATTENDANT [SD] Steven Rich MD Clinical Impressions as [...] Observed: 12/02/2024 8:01 PM Status: COMPLETED Source: [facility] HNO ID: [id number] Author: ALVARO PERDOMO RN Service: Emergency Medicine Author Type: Registered Nurse Type: ED Notes Filed: 12/02/2024 20:01 Note Text: Pt placed on the zoll per LIP request BAS METAB 2000 PNL SERPL Collected: 7:23 PM Status: F Source: [facility] Order Comment: Specimen Type : BLOOD SPECIMEN [facility] Facility[facility] Address: [address] [place] [address] TYPE CODE TESTS RESULT OUT OF RANGE REFERENCE UNITS LAB 2345-7(LOINC) Glucose SerPl-nc 208 High 74-99 mg/dL Result Comment: The [place] Diabetes Association (ADA) provides guidance for cutoff [...] Standards of Medical Care in Diabetes 2016, [place] [employer] Association. Diabetes Care. 2016.39(Suppl 1). LAB 3094-0(LOINC) BUN SerPl-mCnc 87 High 9-24 mg/ dL LAB 2160-0(LOINC) Creat SerPl-mCnc 10.05 High 0.73-1.22 mg/dL LAB 2951-2(LOINC) Sodium SerPl-sCnc 130 Low 136-144 mmol/L LAB 2823-3(LOINC) Potassium SerPl-sCnc 7.5 High Alert 3.7-5.1 mmol/L LAB 2075-0(LOINC) Chloride SerPl-sCnc 92 Low 98-107 mmol/L LAB 2028-9(LOINC) CO2 SerPl-sCnc 23 22-30 mmo l/L LAB 54499-7(LOINC) Anion Gap SerPl-sCnc 15 8-15 mmol/L LAB 51703-3(LOINC) Calcium SerPl-mCnc 9.2 8.5-10.2 mg/dL LAB 00936-6(LOINC) Creatinine + eGFR Pnl SerPlBld 6 Low [...] Performed By: #### 2157-6, 2 432- #### [facility] CLIA [id number] [address] [place] [address] [place]UM[place] CK SERPL-CCNC Collected: 12/02/2024 7:23 PM Status: F Source: [facility] Comment: Specimen Type : BLOOD SPECIMEN [facility] Address: [address] [place] [address] TYPE CODE TESTS RESULT OUT OF RANGE REFERENCE UNITS LAB 7-6([facility]) CK SerPl-cCnc 143 51-298 U/L Performed By: #### 2157-6, 2 432-2 #### [facility] CLIA [id number] [address] [place] [address] [place] ED PROV NOTE Observed: 12/02/2024 5:11 PM Status: COMPLETED Source: [facility] HNO ID: [id number] Author: STEVEN RICH MD Service: Emergency Medicine Author Type: Physician Type: ED Provider Notes Filed: 12/03/2024 14:12 Note Text: ED Provider Note Patient Name: China Guillen : 1985 SERVICE DATE: 12/02/24 History Patient presents with: Sent By Md: Ramesh ARCHER from [facility] after procedure d/t hyperk 39-year-old male [...] presents to the ED via SUZI from [facility] with complaint of hyperkalemia. Patient was at [facility] for procedures today, during routine testing was found to be hyperkalemic. Patient is a Saturday dialysis patient, missed dialysis today due to procedures. Patient has no complaints at this time. History provided by: Patient and medical records mathematician used: No PAST MEDICAL HISTORY Diagnosis Date [...] hypertension GERD (gastroesophageal reflux disease) Heart failure ([facility]) HLD (hyperlipidemia) Hyperkalemia Hyperlipidemia Hypertension Hypertensive heart and chronic kidney disease with heart failure and stage 1 through stage 4 chronic kidney disease, or chronic kidney disease ([facility]) Hypo-osmolality and hyponatremia Hypomagnesemia Hypothyroidism Insomnia Insomnia Kidney transplant failure ([facility]) Kidney transplant status ([facility]) penitentiary current use of insulin ([facility]) Major depressive disorder, recurrent, unspecified Mood disorder Morbid (severe) obesity due to excess calories ([facility]) Muscle weakness Neurogenic bowel Neurogenic bowel, not elsewhere classified Neuromuscular dysfunction of bladder Neuromuscular dysfunction of bladder Neuropathy Non-pressure chronic ulcer of other part of unspecified foot with unspecified severity ([facility]) Obstructive sleep apnea Osteomyelitis of vertebra, sacral and sacrococcygeal region ([facility]) Other disorders of phosphorus metabolism Other idiopathic peripheral autonomic neuropathy Other pericardial effusion (noninflammatory) ([facility]) Other pulmonary embolism without acute cor pulmonale, unspecified chronicity ([facility]) Paraplegia ([facility]) Paraplegia, incomplete ([facility]) PDR (proliferative diabetic retinopathy) ([facility]) Penile erosion 04/23/2023 Pressure ulcer of ischium, stage 4 ([facility]) Pressure ulcer of left buttock, unspecified stage 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 Decreased hearing [...] normal limits Narrative: Meter ID:[id number] Location:ED [facility], [address] [place] [address] GLUCOSE, BLOOD (POC) - Abnormal; Notable for [...] presents to the ED via [facility] with complaint of hyperkalemia. Exam as above. [...] of the patient was discussed with:admitting team, medical sales consultant, admitting team, medical sales consultant and admitting team Discussion with admitting team included: Dr. Chowdhury, MICU Discussion with medical sales consultant included: Nephrology fellow Meds Given During [...] Olivia Salvador APRN.CNP Attending Note Attestation for: OBSTETRICAL ANESTHESIOLOGIST/PA I have personally performed a face to face assessment of the patient and have reviewed the YUE note. I personally made/approved the management plan and take responsibility for the patient management. I performed a substantive portion of the visit including all aspects of the following. My brar findings include: SEE ABOVE ED STAFF ATTENDING [facility] Critical Care I spent a total of [...] Observed: 12/02/2024 4:11 PM Status: F Source: [facility] Ventricular Rate : 59 BPM Atrial Rate : 59 BPM P-R Interval : 198 ms QRS Duration : 96 ms Q-T Interval : 466 ms QTC Calculation(Bazett) : 461 ms Calculated P [place] : 38 degrees Calculated R [place] : 76 degrees Calculated T [place] : 79 degrees SINUS BRADYCARDIA NONSPECIFIC ST ABNORMALITY ABNORMAL ECG NOTE: PLEASE SEE PHYSICIAN'S NOTE FROM E.D. VISIT Confirmed by STEVEN RICH MD ([id number]), society editor SAMMIE ROMERO ([id number]) on 12/03/2024 11:00:43 PM NAME : CHINA GUILLEN PID : [id number] : 1985 Gender : Male Race : ORD : [id number] Procedure Date : Dec 02 2024 16:11:59 Edit Date : Dec 03 2024 23:00:46 Diagnosis: SINUS BRADYCARDIA NONSPECIFIC ST ABNORMALITY ABNORMAL ECG NOTE: PLEASE SEE PHYSICIAN'S NOTE FROM E.D. VISIT Confirmed by STEVEN RICH MD ([id number]), society editor SAMMIE ROMERO ([id number]) on 12/03/2024 11:00:43 PM Test Reason : Chest Pain Location : 2 : EDNS [id number] Overread By : STEVEN RICH MD Edited By : SAMMIE ROMERO Referred By : , Acquired by : sb, CBC W AUTO DIFF BLD Collected: 12/02/2024 3:[address] atus: F Source: [facility] Order Comment: Specimen Type : BLOOD SPECIMEN Ordering Facility: [facility] Address: [address] [place] [address] TYPE CODE TESTS RESULT OUT OF RANGE REFERENCE UNITS LAB 6690-2(LOINC) WBC # Bld Auto 6.40 3.70-11.00 k/uL LAB 789-8(LOINC) RBC # Bld Auto 4.02 Low 4.20-6.00 m/ uL LAB 718-7(LOINC) Hgb Bld-mCnc 12.3 Low 13.0-17.0 g/dL LAB 4544-3([facility]) Hct VFr Bld Auto 38.2 Low 39.0-51.0 % LAB 787-2([facility]) MCV RBC Auto 95.0 80.0-100.0 fL LAB 785-6([facility]) MCH RBC Qn Auto 30.6 26.0-34.0 p g LAB 786-4([facility]) MCHC RBC Auto-mCnc 32.2 30.5-36.0 g/dL LAB 71150-9([facility]) RDW RBC-Rto 14.9 11.5-15.0 % LAB 777-3([facility]) Platelet # Bld Auto 144 Low 150-400 k/uL LAB 34289-7([facility]) PMV Bld Auto 10.5 9.0-12.7 fL LAB 770-8([facility]) Neutrophils/leuk NFr Bld Auto 83.4 % LAB 751-8([facility]) Neutrophils # Bld Auto 5.34 1.45-7.50 k/uL LAB 736-9([facility]) Lymphocytes/leuk NFr Bld Auto 12.2 % LAB 731-0([facility]) Lymphocytes # Bld Auto 0.78 Low 1.00-4.00 k/uL LAB 5905-5([facility]) Monocytes/leuk NFr Bld Auto 1.7 % LAB 742-7([facility]) Monocytes # Bld Auto 0.11 <0.87 k/uL LAB 713-8([facility]) Eosinophil/leuk NFr Bld Auto 1.9 % LAB 711-2([facility]) Eosinophil # Bld Auto 0.12 <0.46 k/uL LAB 706-2([facility]) Basophils/leuk NFr Bld Auto 0.5 % LAB 704-7([facility]) Basophils # Bld Auto 0.03 <0.11 k/uL LAB 81573-7([facility]) Imm Granulocytes/ravinder k NFr Bld Auto 0.3 % LAB 35208-9([facility]) Imm Granulocytes # Bld Auto <0.03 <0.10 k/uL LAB 23765-3([facility]) nRBC/100 WBC Bld-Rto 0.0 /100 WBC LAB 771-6(LOINC) nRBC # Bld Auto <0.01 <0.01 k/u L LAB 58248-7([facility]) Differential method Bld Auto Performed By: #### 22559-9 # ### [facility] CLIA [id number] [address] [place] [address] [place] [address] [place] COMP METAB 2000 PNL SERPL Collected: 3:46 PM Status: F Source: [facility] Order Comment: Specimen Type : BLOOD SPECIMEN Ordering Facility: [facility] Address: [address] [place] [address] TYPE CODE TESTS RESULT OUT OF RANGE REFERENCE UNITS LAB 2885-2(LOINC) Prot SerPl-mCnc 9.0 High 6.3-8.0 g/dL LAB 1751-7(LOINC) Albumin SerPl-mCnc 3.8 Low 3.9-4.9 g/dL LAB 62770-6(LOINC) Calcium SerPl-mCnc 9.3 8.5-10.2 mg/dL LAB 1975-2(LOINC) Bilirub SerPl-mCnc 0.6 0.2-1.3 mg/dL LAB 6768-6(LOINC) ALP SerPl-cCnc 230 High 38-113 U/L LAB 1920-8(LOINC) AST SerPl-cCnc 20 14-40 U/L LAB 1742-6(LOINC) ALT SerPl-cCnc 23 10-54 U/L LAB 2345-7(LOINC) Glucose SerPl-mCnc 134 High 74-99 mg/dL Result Comment: The [place] Diabetes Association (ADA) provides guidance for cutoff [...] Standards of Medical Care in Diabetes 2016, [place] [employer] Association. Diabetes Care. 2016.39(Suppl 1). LAB 3094-0(LOINC) BUN SerPl-mCnc 84 High 9-24 mg/ dL LAB 2160-0(LOINC) Creat SerPl-mCnc 9.55 High 0.73-1.22 mg/dL LAB 2951-2(LOINC) Sodium SerPl-sCnc 132 Low 136-144 mmol/L LAB 2823-3(LOINC) Potassium SerPl-sCnc 7.0 High Alert 3.7-5.1 mmol/L LAB 2075-0(LOINC) Chloride SerPl-sCnc 93 Low 98-107 mmol/L LAB 2028-9(LOINC) CO2 SerPl-sCnc 24 22-30 mmo l/L LAB 50477-0(LOINC) Anion Gap SerPl-sCnc 15 8-15 mmol/L LAB 81506-6(LOINC) Creatinine + eGFR Pnl SerPlBld 7 Low [...] accurately reflect actual GFR. Performed By: #### 46115-3, 41981-2 #### [facility] CLIA [id number] [address] [place] [address] [place] MAGNESIUM SERPL-MCNC Collected: 12/02/2024 3:46 PM S tatus: F Source: [facility] Order Comment: Specimen Type : BLOOD SPECIMEN Ordering Facility: [facility] Address: [address] [place] [address] TYPE CODE TESTS RESULT OUT OF RANGE REFERENCE UNITS LAB 24160-2([facility]) Magnesium SerPl-mCnc 2.1 1.7-2.3 mg/dL Performed By: #### 23945-4, 97559-8 #### [facility] CLIA [id number] [address] OF [facility] ED NOTE Observed: 12/02/2024 3:23 PM Status: COMPLETED Source: [facility] HNO ID: [id number] Author: RUFINA VALDES RN Service: ? Author Type: Registered Nurse Type: ED Notes Filed: 12/02/2024 15:23 Note Text: Bed: E18-12 Expected date: Expected time: Means of arrival: Comments: ems NURSING PROG Observed: 12/02/2024 3:11 PM Status: COMPLETED Source: [facility] HNO ID: [id number] Author: MONALISA HENDRIX RN Service: ? Author Type: Registered Nurse Type: Nursing Progress Note Filed: 12/02/2024 15:24 Note Text: Venous blood gas ordered in post op. Potassium 6.4. Dr. Ovalle notified. [facility] team contacted. Patient transported to ED by [facility] at 1511. ANES POSTPROC EVAL Observed: 12/02/2024 3:02 PM Status: COMPLETED Source: [facility] HNO ID: [id number] Author: NICKIE OVALLE MD Service: ? Author Type: Anesthesiologist Type: Anesthesia Postprocedure Evaluation Filed: 12/02/2024 16:48 Note Text: POST ANESTHESIA EVALUATION NOTE : 1985 Procedure Summary Date: 12/02/24 Room / Location: [address] Anesthesia Start: 1125 Anesthesia Stop: 1343 [...] December 02, 2024 TIME: 3:02 PM CSN: [id number] GAS + CO PNL BLDV Collected: 1:59 PM Status: F Source: [facility] Order Comment: Specimen Type : VENOUS BLOOD SPECIMEN Ordering Facility: [facility] Address: [address] [place] [address] TYPE CODE TESTS RESULT OUT OF RANGE REFERENCE UNITS LAB 2746-6(LOINC) pH BldV 7.32 7.32-7.42 LAB 17598-0(LOINC) pH temp adj BldV 7.32 7.32-7.42 LAB 2020-4(LOINC) pCO2 BldV 57 High 42-55 mmHg LAB 85266-2(LOINC) pCO2 temp adj BldV 57 High 42-55 mmHg LAB 2705-2(LOINC) pO2 BldV 76 High 35-45 mmHg LAB 60982-3(LOINC) pO2 temp adj BldV 76 High 35-45 mmHg LAB 2711-0(LOINC) SaO2 % BldV 93 High 60-85 % LAB 1927-3(LOINC) Base excess BldV Calc-sCnc 2 0-2 mmol/L LAB 49607-1(LOINC) HCO3 BldV-sCnc 28 24-28 mmol/L LAB 2716-9(LOINC) OxyHgb MFr BldV 91 High 60-85 % LAB 2032-1(LOINC) COHgb MFr BldV 1.7 0.0-2.0 % Result Comment: Carboxyhemog lobin Reference Range for Smokers: 2.0-8.0% LAB 2614-6([facility]) MetHgb MFr Bld 0.9 0.0-1.5 % LAB 2947-0(INC) Sodium Bld-sCnc 137 136-144 mmol/L LAB 6298-4([facility]) Potassium Bld-sCnc 6.4 High Alert 3.5-5.0 mmol/L LAB 53058-7([facility]) Ca-I Bld-mCnc 1.20 1.08-1.30 m mol/L LAB 04330-9([facility]) Ca-I adj pH7.4 BldA-sCnc 1.15 1.08-1.30 mmol/L LAB 2339-0([facility]) Glucose Bld-mCnc 127 High 60-105 mg/dL LAB 77599-7([facility]) Lactate Bld-sCnc 1.6 0.5-2.2 mmol/L LAB 718-7([facility]) Hgb Bld-mCnc 11.8 Low 13.0-17.0 g/dL LAB 4544-3(INC) Hct VFr Bld Auto 36.4 Low 39.0-51.0 % Performed By: #### 52792-1 # ### [facility] CLIA [id number] [address] [place] [address] [place] PROCEDURE NOTE Observed: 12/02/2024 12:07 PM Status: COMPLETED Source: [facility] HNO ID: [id number] Author: YANDEL MARTINS APRN.DIRECTOR OF DIVERSITY AND INCLUSION Service: ? Author Type: Nurse Inspector Salvage Type: Anesthesia Procedure Notes Filed: 12/02/2024 12:09 Note Text: ANESTHESIOLOGY PROCEDURE NOTE Airway General Information Procedure Start Time/Medication Administration: 12/02/2024 11:36 AM Procedure End Time: 12/02/2024 12:08 PM Patient location during procedure: OR Timeout Performed Pre-procedure: timeout performed Consent Obtained: Yes Patient identity confirmed: arm band, patient and care deboning team leader Staffing DIRECTOR OF DIVERSITY AND INCLUSION: Yandel Martins APRN.DIRECTOR OF DIVERSITY AND INCLUSION Performed by: TAY Indications and Patient Condition [...] December 02, 2024 TIME: 12:07 PM CSN: [id number] OPERATIVE NO Observed: 12/02/2024 11:27 AM Status: COMPLETED Source: [facility] ID: [id number] Author: MUNIR BURTON MD Service: Ophthalmology Author Type: Physician Type: Operative Report Filed: 12/02/2024 13:40 Note Text: LOG ID: [id number] Surgery/Procedure Date: 12/02/2024 Incision/Procedure Start Time: 12:06 PM Incision Close/Procedure End Time: 1:25 PM Surgeon(s)/Proceduralist(s) and Catch Basin Cleaner(s): Surgeons and Role: Panel 1: * Munir [...] Implant Name Type Inv. Item Serial No. Signal And [employer] Maintainer Lot No. LRB No. Used Action Model No. CCA0T0.195 [employer] - [id number] Intraocular Lens CCA0T0.195 [employer] [id number] [facility] Right 1 Implanted CCA0T0.195 ' Drains: none Complications: none No qualified resident was available. Fellow closed, under direct supervision and the remainder of the procedure was performed by the primary surgeon/proceduralist with assistance. SIGNATURE: Munir Burton MD PATIENT NAME: China Guillen DATE: December 02, 2024 TIME: 1:34 PM OPERATIVE NO Observed: 12/02/2024 11:27 AM Status: COMPLETED Source: [facility] ID: [id number] Author: ANDERSON SWANSON MD Service: Ophthalmology Author Type: Physician Type: Operative Report Filed: 12/02/2024 13:41 Note Text: Log ID: [id number] NAME: China Guillen SURGERY START TIME: 12:06 PM SURGERY END TIME: 1:25 PM SURGERY/PROCEDURE DATE: 12/02/2024 SURGEON(S)/PARAFFIN MACHINE OPERATOR(S): Anderson Swanson - Primary IMPLANTS: Implant Name Type Inv. Item Serial No. [employer] Maintainer Lot No. LRB No. Used Action Model No. CCA0T0.195 [employer] - [id number] Intraocular Lens CCA0T0.195 [employer] [facility] [employer] [id number] [facility] Right 1 Implanted CCA0T0.195 [...] bag. The machine was then set on japanese mode and the IA handpiece was used [...] Observed: 12/02/2024 11:16 AM Status: COMPLETED Source: [facility] HNO ID: [id number] Author: HAIR PINEDA RN Service: ? Author Type: Registered Nurse Type: Nursing Progress Note Filed: 12/02/2024 11:17 Note Text: Left below the knee amputee NURSING PROG Observed: 12/02/2024 11:07 AM Status: COMPLETED Source: [facility] HNO ID: [id number] Author: HAIR PINEDA RN Service: ? Author Type: Registered Nurse Type: Nursing Progress Note Filed: 12/02/2024 11:15 Note Text: Patient arrived from a facility with caregiver, urinary catheter at side of bed colostomy in place. Off of oxygen patient is 95% on room air ANES PRE-OP Observed: 12/02/2024 10:45 AM Status: COMPLETED Source: [facility] HNO ID: [id number] Author: NICKIE OVALLE MD Service: ? Author Type: Anesthesiologist Type: Anesthesia Preprocedure Evaluation Filed: 12/02/2024 12:08 Note Text: ANESTHESIOLOGY DAY OF SURGERY NOTE : 1985 Procedure Information Date/Time: 12/02/24 1102 Procedures: VITRECTOMY MECHANICAL 23 G PARS PLANA APPROACH (Right: Eye) EXAM UNDER ANESTHESIA EYE COMPLETE (Right: Eye) PHACOEMULSIFICATION CATARACT ANTERIOR IMPLANT INTRAOCULAR LENS W/O ENDOSCOPIC CYCLOPHOTOCOAGULATION (Right: Eye) Location: [place] [address] / [facility] Surgeons: Munir Burton MD; Anderson [...] is missing his dialysis today, however, the [facility] center in [place] cannot confirm that they will have space [...] and consent discussed: yes. Patient / Responsible Republican agrees to proceed: yes Patient / Surrogate [...] hypoglycemia not responsive to oral intervention. Notify SWEAT BOX ATTENDANT/MD dextrose (GLUCOSE GEL ORAL) Give one dose [...] China Guillen DATE: December 02, 2024 TIME: 10:45 AM CSN: [id number] GAS + CO PNL BLDV Collected: 10:41 AM Status: F Source: [facility] Order Comment: Specimen Type : VENOUS BLOOD SPECIMEN Ordering Facility: [facility] Address: [address] [place] [address] TYPE CODE TESTS RESULT OUT OF RANGE REFERENCE UNITS LAB 2746-6(LOINC) pH BldV 7.41 7.32-7.42 LAB 84867-7(LOINC) pH temp adj BldV 7.41 7.32-7.42 LAB 2020-4(LOINC) pCO2 BldV 45 42-55 mmHg LAB 18690-2(LOINC) pCO2 temp adj BldV 45 42-55 mmHg LAB 2705-2(LOINC) pO2 BldV 75 High 35-45 mmHg LAB 64760-4(LOINC) pO2 temp adj BldV 75 High 35-45 mmHg LAB 2711-0(LOINC) SaO2 % BldV 94 High 60-85 % LAB 1927-3(LOINC) Base excess BldV Calc-sCnc 3 High 0-2 mmol/L LAB 54673-7(LOINC) HCO3 BldV-sCnc 28 24-28 mmol/L LAB 2716-9(LOINC) OxyHgb MFr BldV 91 High 60-85 % LAB 2032-1(LOINC) COHgb MFr BldV 1.9 0.0-2.0 % Result Comment: Carboxyhemog lobin Reference Range for Smokers: 2.0-8.0% LAB 2614-6(LOINC) MetHgb MFr Bld 1.5 0.0-1.5 % LAB 2947-0(LOINC) Sodium Bld-sCnc 137 136-144 mmol/L LAB 6298-4([facility]) Potassium Bld-sCnc 5.8 High 3.5-5.0 mmol/L LAB 78040-0([facility]) Ca-I Bld-mCnc 1.20 1.08-1.30 m mol/L LAB 76268-1([facility]) Ca-I adj pH7.4 BldA-sCnc 1.20 1.08-1.30 mmol/L LAB 2339-0([facility]) Glucose Bld-mCnc 132 High 60-105 mg/dL LAB 68507-4([facility]) Lactate Bld-sCnc 1.0 0.5-2.2 mmol/L LAB 718-7([facility]) Hgb Bld-mCnc 12.3 Low 13.0-17.0 g/dL LAB 4544-3([facility]) Hct VFr Bld Auto 38.0 Low 39.0-51.0 % Performed By: #### 05030-5 # ### [facility] CLIA [id number] [address] [place] [address] CNPN Observed: 12/02/2024 12:00 AM Status: COMPLETED Source: [facility] Telephone (TOHSMN) CHINA GUILLEN ([id number]) 1985 M Date Time Provider Department 12/02/24 [facility] During your visit today, we recorded the following information about you: Cecy Hernandez, RN 12/02/2024 2:51 PM Signed [facility] contacted me (unclear why the call was routed to me) with a Potassium of 6.4 (Venous) for China Guillen / [id number] (patient scheduled for mechanical vitrectomy today). Notified [...] hypoglycemia not responsive to oral intervention. Notify SWEAT BOX ATTENDANT/MD - LANTUS U-100 INSULIN 100 unit/mL injection [...] Observed: 11/05/2024 2:28 PM Status: COMPLETED Source: [facility] HNO ID: [id number] Author: WILMAN YEH LPN Service: ? Author Type: LICENSED NURSE Type: Progress Notes Filed: 11/10/2024 14:36 Note Text: Fax sent to [facility] for most recent labs to review for upcoming surgery. Wilman Yeh LPN HISTORY PHYSICAL Observed: 11/05/2024 12:34 PM Status: COMPLETED Source: [facility] HNO ID: [id number] Author: DANIEL DIOP APRN.SWEAT BOX ATTENDANT Service: ? Author Type: Nurse Practitioner Type: H&P Filed: 11/10/2024 14:36 Note Text: [facility] HISTORY AND PHYSICAL EXAMINATION SERVICE DATE: 11/05/2024 SERVICE TIME: 2:35 PM PRIMARY CARE PHYSICIAN: Lang Peres DO Assessment Patient has the following medical conditions which may affect monie-operative course: Paraplegia (HCC) Assessment: 2/2 acute spinal thrombosis, wheelchair bound, resident at [facility] Type 2 diabetes mellitus with polyneuropathy (HCC) Assessment: IDDM, most recent labs requested from [facility], most recent A1c 05/2024 6.9 scanned into [...] Assessment: controlled on rx ESRD on dialysis ([facility]) Assessment: status failed kidney transplant back on IHD 2022 via AV[facility] M,W,F at [facility] in [place], most recent labs requested from [facility] Neurogenic bladder Assessment: s/p chronic hurst Anemia Assessment: hx, receives epoetin jacki 3x/week at dialysis, most recent labs requested Hemoglobin Date Value 06/17/2024 9.6 g/dL 11/27/2021 11.1 G/DL Hematocrit (%) Date Value 06/17/2024 31.9 11/27/2021 35.0 WBC Date Value 06/17/2024 5.76 k/uL 11/27/2021 8.0 K/CUMM Thrombocytopenia Assessment: last platelets received 118 05/2024 scanned into [facility], more recent labs from dialysis center requested Ulcer of toe of right foot, limited to breakdown of skin ([facility]) Assessment: wound care daily at [facility] following podiatry Pressure ulcer of ischium, left, stage IV ([facility]) Assessment: s/p diverting colostomy 02/2021 by [facility]. Pressure ulcer of sacral region, stage 2 ([facility]) Assessment: s/p diverting colostomy 02/2024 by [facility]. Mood disorder ([facility]) Assessment: flat affect, slow to respond History of pulmonary embolism Assessment: 10/2022, daily Eliquis Hx of left BKA ([facility]) Assessment: 08/09 osteomyelitis Obesity (BMI 30-39.9) Assessment: [...] years old or younger STOP-Bang Score: 5 [id number] Score: Age: <65 Sex: male CHF history: Yes Hypertension history: Yes Stroke/TIA/thromboembolism history: No Vascular disease history: Yes Diabetes history: Yes [id number] Score: 4 ARISCAT Score: Age: <=50 Preoperative [...] Imm Admin: COVID-19 vaccine, age 12+ yr ([facility]) CHIEF COMPLAINT: Pre-op exam HPI: [place] [...] related cataracts both eyes - Referred from [facility] - Seen Dr. Swanson 04/30, recommended cataract surgery - Plan for combined surgery as above - Aim plano - Needs IOL calcs REVIEW OF SYSTEMS: General: No weight loss, malaise or fevers. Neurological: No history of TIA's, stroke, TILE MECHANIC tumor, impaired sensorium, hemiplegia, paraplegia or quadraplegia. [...] chest pain, congenital heart defect, hyperlipidemia, recent ND, PTCA, PVD, open heart surgery and valve [...] Chronic kidney disease (CKD), stage IV (severe) ([facility]) Chronic systolic (congestive) heart failure ([facility]) Congestive heart failure (CHF) ([facility]) Dependence on renal dialysis Depression Diabetes mellitus with chronic kidney disease ([facility]) End stage renal disease ([facility]) ESRD (end stage renal disease) ([facility]) Essential hypertension GERD (gastroesophageal reflux disease) Heart failure ([facility]) HLD (hyperlipidemia) Hyperkalemia Hyperlipidemia Hypertension Hypertensive heart and chronic kidney disease with heart failure and stage 1 through stage 4 chronic kidney disease, or chronic kidney disease ([facility]) Hypo-osmolality and hyponatremia Hypomagnesemia Hypothyroidism Insomnia Insomnia Kidney transplant failure ([facility]) Kidney transplant status ([facility]) penitentiary current use of insulin ([facility]) Major depressive disorder, recurrent, unspecified Mood disorder Morbid (severe) obesity due to excess calories ([facility]) Muscle weakness Neurogenic bowel Neurogenic bowel, not elsewhere classified Neuromuscular dysfunction of bladder Neuromuscular dysfunction of bladder Neuropathy Non-pressure chronic ulcer of other part of unspecified foot with unspecified severity ([facility]) Obstructive sleep apnea Osteomyelitis of vertebra, sacral and sacrococcygeal region ([facility]) Other disorders of phosphorus metabolism Other idiopathic peripheral autonomic neuropathy Other pericardial effusion (noninflammatory) ([facility]) Other pulmonary embolism without acute cor pulmonale, unspecified chronicity ([facility]) Paraplegia ([facility]) Paraplegia, incomplete ([facility]) PDR (proliferative diabetic retinopathy) ([facility]) Penile erosion 04/23/2023 Pressure ulcer of ischium, stage 4 ([facility]) Pressure ulcer of left buttock, unspecified stage 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 Notify SWEAT BOX ATTENDANT/MD Yes LANTUS U-100 INSULIN 100 unit/mL injection [...] 404 QTC Calculation (Bazett) 465 Calculated P [place] 21 Calculated R [place] 26 Calculated T [place] 46 Impression NORMAL SINUS RHYTHM NORMAL ECG Recent Results (from the past 40850 hours) ECHO Collection Time: 10/15/24 1:57 PM [...] voices comprehension and compliance. SIGNATURE: Daniel Diop APRN.SWEAT BOX ATTENDANT PATIENT NAME: China Guillen DATE: November 05, 2024 TIME: 12:34 PM PAGER/CONTACT #: [phone] Observed: 10/15/2024 1:57 PM Status: F Source: [facility] Echocardiography Report: Tra nsthoracic Echo [facility] Date of service: 10/15/2024 1:57:52 PM ACCOUNT LEADER Ordering physician: DANIEL DIOP Indication: Pre op clearance/Rule out effusion Technologist: Monalisa Rivera [facility] Interpreting physician: Anderson Ha MD PATIENT: Name: [...] * * Final * * * CC [facility] Image : [id number] HISTORY PHYSICAL Observed: 10/08/2024 10:42 AM Status: COMPLETED [facility] [id number] Author: DANIEL DIOP APRN.SWEAT BOX ATTENDANT Service: ? Author Type: Nurse Practitioner Type: H&P Filed: 10/15/2024 10:53 Note Text: [facility] HISTORY AND PHYSICAL EXAMINATION SERVICE DATE: 10/08/2024 SERVICE TIME: 10:50 AM PRIMARY CARE PHYSICIAN: Lang Peres DO Assessment Patient has the following medical conditions which may affect monie-operative course: Paraplegia (HCC) Assessment: 2/2 acute spinal thrombosis, wheelchair bound, resident at [facility] Type 2 diabetes mellitus with polyneuropathy (HCC) Assessment: IDDM, most recent labs requested from [facility], most recent A1c 05/2024 6.9 scanned into [...] on IHD 2022 via AVF M,W,F at [facility] in [place], most recent labs requested from [facility] Anemia Assessment: hx, receives epoetin jacki 3x/week at dialysis, most recent labs requested Hemoglobin Date Value 06/17/2024 9.6 g/dL 11/27/2021 11.1 G/DL Hematocrit (%) Date Value 06/17/2024 31.9 11/27/2021 35.0 WBC Date Value 06/17/2024 5.76 k/uL 11/27/2021 8.0 K/CUMM Ulcer of toe of right foot, limited to breakdown of skin ([facility]) [facility] Pressure ulcer of sacral region, [...] last platelets received 118 05/2024 scanned into [employer], more recent labs from dialysis center requested [...] years old or younger STOP-Bang Score: 5 [id number] Score: CHF history: Yes Hypertension history: Yes Stroke/TIA/thromboembolism history: No Diabetes history: Yes [id number] Score: ARISCAT Score: Age: <=50 Preoperative SpO2: [...] related cataracts both eyes - Referred from [facility] - Seen Dr. Swanson 04/30, recommended cataract surgery - Plan for combined surgery as above - Aim plano - Needs IOL calcs REVIEW OF SYSTEMS: General: No weight loss, malaise or fevers. Neurological: No history of TIA's, stroke, TILE MECHANIC tumor, impaired sensorium, hemiplegia, paraplegia or quadraplegia. [...] chest pain, congenital heart defect, hyperlipidemia, recent ND, PTCA, PVD, open heart surgery and valve [...] Acquired absence of left leg above knee ([facility]) Acquired absence of other right toe(s) ([facility]) Acute infarction of spinal cord ([facility]) Acute kidney failure, unspecified Acute osteomyelitis of left ankle or foot ([facility]) Acute pulmonary edema ([facility]) Anemia Anemia in chronic kidney disease (CKD) Body mass index 40.0-44.9, adult ([facility]) Cerebral infarction due to unspecified occlusion or stenosis of unspecified cerebral artery ([facility]) Chronic kidney disease (CKD), stage IV (severe) ([facility]) Chronic systolic (congestive) heart failure ([facility]) Congestive heart failure (CHF) ([facility]) Dependence on renal dialysis Depression Diabetes mellitus with chronic kidney disease ([facility]) End stage renal disease ([facility]) ESRD (end stage renal disease) ([facility]) Essential hypertension GERD (gastroesophageal reflux disease) Heart failure ([facility]) HLD (hyperlipidemia) Hyperkalemia Hyperlipidemia Hypertension Hypertensive heart and chronic kidney disease with heart failure and stage 1 through stage 4 chronic kidney disease, or chronic kidney disease (HCC) Hypo-osmolality and hyponatremia Hypomagnesemia Hypothyroidism Insomnia Insomnia Kidney transplant failure ([facility]) Kidney transplant status ([facility]) 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 ([facility]) Major depressive disorder, recurrent, unspecified Mood disorder Morbid (severe) obesity due to excess calories ([facility]) Muscle weakness Neurogenic bowel Neurogenic bowel, not elsewhere classified Neuromuscular dysfunction of bladder Neuromuscular dysfunction of bladder Neuropathy Non-pressure chronic ulcer of other part of unspecified foot with unspecified severity ([facility]) Obstructive sleep apnea Osteomyelitis of vertebra, sacral and sacrococcygeal region ([facility]) Other disorders of phosphorus metabolism Other idiopathic peripheral autonomic neuropathy Other pericardial effusion (noninflammatory) ([facility]) Other pulmonary embolism without acute cor pulmonale, unspecified chronicity ([facility]) Paraplegia ([facility]) Paraplegia, incomplete ([facility]) PDR (proliferative diabetic retinopathy) ([facility]) Penile erosion 04/23/2023 Pressure ulcer of ischium, stage 4 ([facility]) Pressure ulcer of left buttock, unspecified stage 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 Notify SWEAT BOX ATTENDANT/MD Yes LANTUS U-100 INSULIN 100 unit/mL injection [...] 404 QTC Calculation (Bazett) 465 Calculated P [place] 21 Calculated R [place] 26 Calculated T [place] 46 Impression NORMAL SINUS RHYTHM NORMAL ECG Recent Results (from the past 07023 hours) ECHO Collection Time: 10/11/22 1:03 PM [...] Observed: 10/08/2024 12:00 AM Status: COMPLETED Source: [facility] Telephone (MARIAAO) CHINA GUILLEN ([id number]) 1985 M Date Time Provider Department 10/08/24 DANIEL DIOP During your visit today, we recorded the following information about you: Daniel Diop APRN.CNP 10/08/2024 11:17 AM Signed Please request most recent labs A1c, CBC, CMP from [facility]. DOS 10/28/2024 Daniel Diop APRN.CNP 10/08/2024 12:51 PM Signed Also contact SNF ask if he has had any recent echo's since 2022, or following cardiology, if not this will need updated. Wilman Yeh LPN 10/08/2024 1:30 PM Signed Phoned [facility], spoke with nurse on the 300 [...] any Echos on file. Scanned labs into [facility] through Onbase scanning. JazminDALILA Mckeon Jillian S, APRN.KAREL 10/09/2024 10:11 AM Signed Pt will need to update echo then he had a moderate pericardial effusion in 2022. Echo order placed, please assist with scheduling prior to 10/28/2024. Jazmin Gutierrez LPN 10/09/2024 11:27 AM Signed Please assist patient/retirement [phone] in scheduling Echo prior to surgery 10/28/24. DALILA Newell Stephanie 10/09/2024 2:37 PM Signed Left message for [employer] transportation worker, to call back to schedule. Jazmin Hernandez [...] 10/15/2024 2:42 PM Signed Faxed request to [facility] for recent labs for upcoming surgery. Their office is closed at this time. Awaiting results. ECHO completed today here at [facility] just waiting on results. DALILA Bird Jessica, LPN 10/16/2024 1:36 PM Signed Received labs, scanned into Epic through Onbase scanning. DALILA Newell Jillian S, APRN.CNP 11/10/2024 2:34 PM Signed Can we request most recent labs from his dialysis center here in [place]. His HANDP and he was seen again to update. DOS now 12/02/2024 Jazmin Gutierrez LPN 11/11/2024 12:26 PM Signed Progress Notes Wilman Yeh LPN (LICENSED NURSE) Fax sent to [facility] for most recent labs to review for upcoming surgery. DALILA Bird Jessica, LPN 11/18/2024 12:46 PM Signed This was re faxed yesterday. DALILA Newell Jessica, LPN 11/20/2024 2:27 PM Signed Called and spoke with staff member at [facility]. They state they have faxed them twice. Fax number they had was incorrect. They will fax to our correct fax number. Jazmin GutierrezDALILA Jazmin Gutierrez DALILA 11/20/2024 2:55 PM Signed Received labs. Scanned into [employer] through Onbase scanning. Jazminvikas Gutierrez LPN Allergies As of Date: 10/08/2024 (No Known Allergies) Date Reviewed: 10/08/2024 Reviewed by: Daniel Diop APRN.SWEAT BOX ATTENDANT - Fully Assessed Reason for Visit: Request Outside Medical Records [1202] Primary Visit Diagnosis:Pericardial effusion (HCC) [I31.39] Order(s):ECHO [[id number]] Order #: [id number]: 1 FUTURE Prescriptions as of 11/20/2024 - [...] hypoglycemia not responsive to oral intervention. Notify SWEAT BOX ATTENDANT/MD - LANTUS U-100 INSULIN 100 unit/mL injection [...] Observed: 09/29/2024 2:10 PM Status: COMPLETED Source: [facility] ID: [id number] Author: MUNIR BURTON MD Service: ? Author [...] related cataracts both eyes - Referred from [facility] - Seen Dr. Swanson 04/30, recommended cataract [...] Observed: 07/28/2024 3:07 PM Status: COMPLETED Source: [facility] ID: [id number] Author: MUNIR BURTON MD Service: ? Author [...] related cataracts both eyes - Referred from [facility] - Seen Dr. Swanson 04/30, recommended cataract [...] Observed: 06/18/2024 12:00 AM Status: COMPLETED Source: [facility] Letter Text [facility] Observed: 06/17/2024 4:40 PM Status: COMPLETED Source: [facility] HNO ID: [id number] Author: SU CORREA RN Service: Wound/Ostomy Author [...] Flush Mucosal Condition and Color: Red and [place] and moist Mucocutaneous Junction: Intact , hyperpigmentation [...] Sensi Care No Sting Adhesive Remover wipes (#491541) to gently release the worn pouch from the skin. 2. Apply ConvaTec Stomahesive powder (#80593) to denuded/irritated skin as needed with each pouch change until healed. [place] off loose powder from intact skin prior to pouching. Pouching System Applied: HNI 2 3/4 CONVEX drainable Wear Time Goal: 3-4 days Time Increment: 45 minutes MAMADOU MoiseN, RN, CWOCN For non-emergent WO Nursing patient care needs - Please place a consult via Epic under ostomy. WOC Nurse Available Hours: M-F: [phone]; Weekends AND Holidays: [phone] For emergent WO Nursing patient care needs - Page #[phone], during available hours only. NURSING PROG Observed: 06/17/2024 3:05 PM Status: COMPLETED Source: [facility] HNO ID: [id number] Author: VELIA SALAS RN Service: Nursing Author Type: Registered Nurse Type: Nursing Progress Note Filed: 06/17/2024 15:06 Note Text: Report called to Randa at [facility]. XR FOOT 3V AP/LAT/OBL RT Observed: 06/17 1:48 PM Status: F Source: [facility] * * *Final Report* * * [...] the first MTP joint. Extensive vascular calcifications. Property Condition Assessor: PSCB Transcribe Date/Time: Jun 17 2024 1:52P Dictated by : MIKE PERES MD This examination was interpreted and the report reviewed and electronically signed by: MIKE PERES MD on Jun 17 2024 1:54PM EST [id number] CONSULT PROG Observed: 06/17/2024 12:46 PM Status: COMPLETED Source: [facility] HNO ID: [id number] Author: LUIS A MOHAN PA-C Service: Nephrology Author Type: Physician Catch Basin Cleaner Type: Consult Progress Note Filed: 06/17/2024 12:48 Note Text: Department of Kidney Medicine Medical Specialties [facility] NEPHROLOGY CONSULT SERVICE PROGRESS NOTE INTERVAL [...] and now ESRD - dialyzes at [facility] [place] MWF via L AVF 2. Electrolytes: hyperK [...] Mg- or Phos- containing enemas Consent for EMERGENCY RESPONSE TECHNICIAN: ESRD Luis A Mohan PA-C Department of Kidney Medicine [facility] June 17, 2024 12:46 PM PAGER # [phone] Disclosures: Parts of the current progress note may have been copied from a previous note. FOR AFTER HOUR CONCERNS BETWEEN 5PM - 7AM CONTACT ON-CALL NEPHROLOGY FELLOW [phone] CONSULT Observed: 06/17/2024 11:44 AM Status: COMPLETED Source: [facility] HN ID: [id number] Author: DEMETRIUS LANGSTON MD Service: Transplant Author Type: Physician Type: Consults Filed: 06/17/2024 13:15 Note Text: [facility] DEPARTMENT OF KIDNEY MEDICINE KIDNEY TRANSPLANT ADMIT [...] Acquired absence of left leg above knee ([facility]) Acquired absence of other right toe(s) ([facility]) Acute infarction of spinal cord (HCC) Acute kidney failure, unspecified ([facility]) Acute osteomyelitis of left ankle or foot (HCC) Acute pulmonary edema ([facility]) Anemia Anemia in chronic kidney disease (CKD) Body mass index 40.0-44.9, adult ([facility]) Cerebral infarction due to unspecified occlusion or stenosis of unspecified cerebral artery ([facility]) Chronic kidney disease (CKD), stage IV (severe) ([facility]) Chronic systolic (congestive) heart failure (HCC) Congestive heart failure (CHF) ([facility]) Dependence on renal dialysis (HCC) Depression Diabetes mellitus with chronic kidney disease ([facility]) End stage renal disease ([facility]) ESRD (end stage renal disease) ([facility]) Essential hypertension GERD (gastroesophageal reflux disease) Heart failure ([facility]) HLD (hyperlipidemia) Hyperkalemia Hyperlipidemia Hypertension Hypertensive heart and chronic kidney disease with heart failure and stage 1 through stage 4 chronic kidney disease, or chronic kidney disease (HCC) Hypo-osmolality and hyponatremia Hypomagnesemia Hypothyroidism Insomnia Insomnia Kidney transplant failure Kidney transplant status penitentiary current use of insulin ([facility]) Major depressive disorder, recurrent, unspecified (HCC) Mood disorder ([facility]) Morbid (severe) obesity due to excess calories ([facility]) Muscle weakness Neurogenic bowel Neurogenic bowel, not elsewhere classified Neuromuscular dysfunction of bladder Neuromuscular dysfunction of bladder Neuropathy Non-pressure chronic ulcer of other part of unspecified foot with unspecified severity ([facility]) Obstructive sleep apnea Osteomyelitis of vertebra, sacral and sacrococcygeal region ([facility]) Other disorders of phosphorus metabolism Other idiopathic peripheral autonomic neuropathy Other pericardial effusion (noninflammatory) Other pulmonary embolism without acute cor pulmonale, unspecified chronicity (HCC) Paraplegia ([facility]) Paraplegia, incomplete ([facility]) Penile erosion 04/23/2023 Pressure ulcer of ischium, stage 4 ([facility]) Pressure ulcer of left buttock, unspecified stage Right foot ulcer ([facility]) Sepsis ([facility]) Type 2 diabetes ([facility]) Unspecified protein-calorie malnutrition (HCC) UTI (urinary tract [...] 0659 06/17/24 07 - 06/18/24 0659 Shift 3338-6396 8220-7147 8402-8373 24 Hour Total 8813-7795 4076-8323 4324-4600 24 Hour Total INTAKE PO 400 400 [...] Von Victoria MD Nephrology Fellow PGY-IV Prefer [employer] Chat Pager number: [phone] For 5 PM - 7 AM weekdays, and weekends please [place] infusion [place]n at: [phone] June 17, 2024 11:44 AM Kidney Transplant [...] 6 ng/ml. SIGNATURE: Demetrius Langston MD PAGER: [phone] CASE MANAGEM Observed: 06/17/2024 10:18 AM Status: COMPLETED Source: [facility] ID: [id number] Author: ROCIO BEJARANO LISW Service: ? Author Type: Rotary Cutter Feeder Type: Care Mgt Progress Note Filed: 06/17/2024 15:16 Note Text: CARE MANAGEMENT DISCHARGE NOTE SERVICE DATE: June 17, 2024 SERVICE TIME: 10:18 AM Admission Date: 06/15/2024 LOS: 1 day Discharge Arrangement Discharge Arrangement: Extended Care Facility Services Arranged [place] [facility] Caregiver Assessment Caregiver is ready, willing and able to meet the patient's needs as recommended by the inter-professional team: No Caregiver needed Transportation Arrangements Transportation Arrangements: Ambulance Transportation Agency and Phone #:: [facility] [phone] Date of Trip: 06/17/24 Time of Trip: 0491 Type of Service: BLS Non-emergency Farm [place]cher Location: Main [place] Destination: [facility] Financial Care Management Responsibility: None Handoff Communication: Handoff to: Primary Care Physician Primary Care Physician Name/Phone: Lang Yannick Discharge Information Row Name ED to Hosp-Admission (Current) from 06/15/2024 in HOSP [facility] Half-Way Facility Agency [facility] DC planned for today Patient will return to [facility] today at 4:30 pm via MMT stretcher Trip # [id number] RN report # [phone] SIGNATURE: JAVIER Armas PATIENT NAME: China Guillen DATE: June 17, 2024 TIME: 10:18 AM BAS METAB 1999 PNL SERPL Collected: 05/2024 6:52 AM Status: F Source: [facility] Order Comment: Specimen Type : BLOOD SPECIMEN [facility] Address: [address] [place] [address] TYPE CODE TESTS RESULT OUT OF RANGE REFERENCE UNITS LAB 2345-7(LOINC) Glucose SerPl-mCnc 201 High 74-99 mg/dL Result Comment: The [place] Diabetes Association (ADA) provides guidance for cutoff [...] Standards of Medical Care in Diabetes 2016, [place] [employer] Association. Diabetes Care. 2016.39(Suppl 1).The [place] Diabetes Association (ADA) provides guidance for cutoff [...] Standards of Medical Care in Diabetes 2016, [place] Diabetes Association. Diabetes Care. 2016.39(Suppl 1). LAB 3094-0(LOINC) BUN SerPl-mCnc 44 High 9-24 mg/ dL LAB 2160-0(LOINC) Creat SerPl-mCnc 6.66 High 0.73-1.22 mg/dL LAB 2951-2(LOINC) Sodium SerPl-sCnc 139 136-144 mmol/L LAB 2823-3(LOINC) Potassium SerPl-sCnc 5.0 3.7-5.1 mmol/L LAB 2075-0(LOINC) Chloride SerPl-sCnc 96 Low 98-107 mmol/L LAB 2028-9(LOINC) CO2 SerPl-sCnc 30 22-30 mmo l/L LAB 70762-7(LOINC) Anion Gap SerPl-sCnc 13 8-15 mmol/L LAB 82567-1(LOINC) Calcium SerPl-mCnc 9.1 8.5-10.2 mg/dL LAB 24291-5(LOINC) Creatinine + eGFR Pnl SerPlBld 10 Low [...] accurately reflect actual GFR. Performed By: #### 37300-5, 81360-7 #### [facility] CLIA [id number] [address] [facility] [place] [id number] [place] RENAL FUNC 2000 PNL SERPL Collected: 6:52 AM Status: F Source: [facility] Order Comment: Specimen Type : BLOOD SPECIMEN [facility]ing Facility: [facility] Address: [address] [place] [address] TYPE CODE TESTS RESULT OUT OF RANGE REFERENCE UNITS LAB 1751-7(LOINC) Albumin SerPl-mCnc 3.6 Low 3.9-4.9 g/dL LAB 55528-9(LOINC) Calcium SerPl-mCnc 9.1 8.5-10.2 mg/dL LAB 2777-1(LOINC) Phosphate SerPl-mCnc 4.5 2.7-4.8 mg/dL LAB 2345-7(LOINC) Glucose SerPl-mCnc 201 High 74-99 mg/dL Result Comment: The [place] Diabetes Association (ADA) provides guidance for cutoff [...] Standards of Medical Care in Diabetes 2016, [place] Diabetes Association. Diabetes Care. 2016.39(Suppl 1). LAB 3094-0(LOINC) BUN SerPl-mCnc 44 High 9-24 mg/ dL LAB 2160-0(LOINC) Creat SerPl-mCnc 6.66 High 0.73-1.22 mg/dL LAB 2951-2(LOINC) Sodium SerPl-sCnc 139 136-144 mmol/L LAB 2823-3(LOINC) Potassium SerPl-sCnc 5.0 3.7-5.1 mmol/L LAB 2075-0(LOINC) Chloride SerPl-sCnc 96 Low 98-107 mmol/L LAB 8-9(LOINC) CO2 SerPl-sCnc 30 22-30 mmo l/L LAB 70974-6(LOINC) Anion Gap SerPl-sCnc 13 8-15 mmol/L LAB 85144-9(LOINC) Creatinine + eGFR Pnl SerPlBld 10 Low [...] accurately reflect actual GFR. Performed By: #### 49476-5, 50910-5 #### [facility] CLIA [id number] [address] [place] [address] STATES OF [facility] CBC PNL BLD AUTO Collected: 4 6:52 AM Status: F Source: [facility] Order Comment: Specimen Type : BLOOD SPECIMEN [facility]ing Facility[facility] Address: [address] [place] [address] TYPE CODE TESTS RESULT OUT OF RANGE [...] RBC Auto-mCnc 30.1 Low 30.5-36.0 g/dL LAB 88083-7(LOINC) RDW RBC-Rto 16.6 High 11.5-15.0 % LAB 777-3(LOINC) Platelet # Bld Auto 151 150-400 k/uL LAB 63093-3([facility]) PMV Bld Auto 11.2 9.0-12.7 fL LAB 771-6([facility]) nRBC # Bld Auto <0.01 <0.01 k/uL Performed By: #### 75053-6, 67047-8 #### [facility] CLIA [id number] [address] [place] [address] [place] TACROLIMUS BLD-MCNC Collected: 06/17/20 24 6:52 AM Status: F Source: [facility] Order Comment: Specimen Type : BLOOD SPECIMEN [facility]ing Facility: [facility] Address: [address] [place] [address] TYPE CODE TESTS RESULT OUT OF RANGE REFERENCE UNITS LAB 93529-7([facility]) Tacrolimus Bld-mCnc 8.1 5.0-20.0 ng/mL Result [...] using [place] Alinity i. Performed By: #### 87346-2, 28722-4 #### [facility] CLIA [id number] [address] [place] [address] [place] CNDS Observed: 06/16/2024 3:21 PM Status: COMPLETED Source: [facility] HNO ID: [id number] Author: CARRIE SALGADO MD Service: Hospital Medicine Author Type: Physician Catch Basin Cleaner Type: Discharge Summary Filed: 07/14/2024 09:01 Note Text: Attestation signed by Carrie Salgado MD at 07/14/2024 9:01 AM [facility] STAFF PHYSICIAN NOTE OF PERSONAL INVOLVEMENT IN CARE I have reviewed the discharge note obtained and documented by Ysabel Morris PA-C (Physician Catch Basin Cleaner) . I have explored in detail with the patient the HPI and ROS. I have discussed the case and management of the patient's care with Ysabel Morris PA-C (Physician Catch Basin Cleaner) . I have reviewed available labs, and my exam and A/P are in agreement with the documentation above. Total time spent was more than 30 minutes with more than 50% time spent in direct face to face and co-oordination of care. Carrie Salgado MD [facility] [id number] DISCHARGE SUMMARY PATIENT NAME: China Guillen ADMISSION [...] This is a 38 year old male [place] resident with complex medical history of T2DM [...] Salgado MD Primary Service: GIM 3 Physician Catch Basin Cleaner: Ysabel Morris PA-C PATIENT CONDITION AT DISCHARGE: Stable DISCHARGE DISPOSITION: Half-Way Facility Discharge Physical Exam: VITAL SIGNS: BP [...] 07/23/2024 1:30 PM Anderson Swanson MD [facility] 07/28/2024 1:45 PM Munir Burton MD [facility] 09/03/2024 9:15 AM Jam[facility] Sol[facility] ALLERGIES No Known Allergies DISCHARGE [...] Provider, RN, Patient I have performed the fuel-yp-mftu and relevant services for a total of >30 minutes. SIGNATURE: Ysabel Morris PA-C DATE: June 17, 2024 TIME: 1:38 PM PROGRESS Observed: 06/16/2024 3:10 PM Status: COMPLETED Source: [facility] HNO ID: [id number] Author: YSABEL MORRIS PA-C Service: Hospital Medicine Author Type: Physician Catch Basin Cleaner Type: Progress Notes Filed: 06/16/2024 15:53 Note Text: DEPARTMENT OF HOSPITAL MEDICINE PROGRESS NOTE SERVICE DATE: 06/16/2024 SERVICE TIME: 3:10 PM Hospital Medicine/Primary Attending: Carrie Salgado MD NIGHT AND WEEKEND COVERAGE: [facility] COVERAGE: Days: [phone], please page Ysabel Morris for patient issues. Nights: [phone], please page Team GIM 3: G/H 8th floor: [address]278; Non 8th floor [address] Subjective INTERVAL HPI: He states that he [...] This is a 38 year old male [place] resident with complex medical history of T2DM [...] potassium 6.4 EKG showed peaked T Waves. [facility] Dialysis Nephrology unit contacted and he was [...] Prophylaxis/Anticoagulants 06/15/24 1637 activity - mobilize patient (mn,oh) VTE Prophylaxis: VTE prophylaxis appropriate Disposition: To be determined Plan of care discussed with Provider, RN, Patient Plan communicated to: Patient prefers to communicate with family. SIGNATURE: BRITTANY Poole PATIENT NAME: China Guillen DATE: June 16, 2024 TIME: 3:10 PM TEACHING PROVIDER (Physician/PA/SUPERVISOR PARTIAL DENTURE DEPARTMENT) NOTE OF PERSONAL INVOLVEMENT IN CARE: I have personally seen and examined the patient and performed the medical decision-making components. I have reviewed the Physician Catch Basin Cleaner (PA) Student's documentation and verified the findings in the note as written. Any additions or changes are noted in bold/italics. Signature: Ysabel Morris Date: 06/16/2024 Time: 3:44 PM PLAN OF CARE Observed: 06/16/2024 12:51 PM Status: COMPLETED Source: [facility] HNO ID: [id number] Author: SU PALACIOS RPh Service: Pharmacy Author Type: Pharmacist Type: Plan of Care Filed: 06/16/2024 13:22 Note Text: PHARMACY MEDICATION REVIEW Patient Name: China Guillen : 1985 The following medications were updated within the CONCRETE PAVEMENT INSTALLER medication list: Medications ADDED to CONCRETE PAVEMENT INSTALLER medication list Diphenhydramine- zinc acetate cream Apply [...] capsule by mouth daily Medications CHANGED on CONCRETE PAVEMENT INSTALLER medication list Acetaminophen 1000 mg by mouth [...] as needed for nausea Medications REMOVED from CONCRETE PAVEMENT INSTALLER medication list Tacrolimus 6 mg by mouth twice daily Vitamin A Zinc Trazodone Sodium bicarbonate Prednisone Promethazine Oxycodone IR Oxycodone-acetaminophen Nifedipine Mycophenolate Mupirocin ointment Multivitamin Midodrine Miconazole cream Insulin glargine-yfgn Gabapentin Famotidine Amlodipine Aspirin Calcitriol Albuterol Colchicine Collagenase ointment Darbepoetin Clotrimazole-betamethasone cream The below information represents the best possible medication history: Yes Medication history completed by: Pharmacist: Su Palacios RPh Source of history: retirement/Other [facility] Medication nonadherence identified: No barriers noted Reconciliation completed: Yes Completed by: Su Palacios RPh Addressing the above changes with LIP. Patient interested in Bedside Delivery Services or using OP Pharmacy at discharge? No Preferred outpatient pharmacy: [facility] [place] [address] [facility] [phone] Allergies: No Known Allergies Prior to Admission [...] hypoglycemia not responsive to oral intervention. Notify SWEAT BOX ATTENDANT/ guaiFENesin (ROBITUSSIN) 100 mg/5 mL syrup Yes [...] Observed: 06/16/2024 12:43 PM Status: COMPLETED Source: [facility] ID: [id number] Author: MARA HAN RD Service: Nutrition Therapy Author Type: Registered Dietitian Type: Nutrition Filed: 06/16/2024 12:45 Note Text: NUTRITION THERAPY INITIAL ASSESSMENT SERVICE DATE: 06/16/2024 SERVICE TIME: 9:30am Nutrition Assessment: Recommended Malnutrition Diagnosis: No Malnutrition Identified In the context of: Chronic Illness or Injury Nutrition Diagnosis: PES Statement: No diagnosis at this time Care Plan: Continue current diet Refer to: Construction Laborer to Follow Vitamins and Minerals: Renal vitamin [...] This is a 38 year old male [place] resident with medical history of T2DM on [...] Weight Type: Admit weight Estimated kilocalorie needs: 9418-4144 Calorie Calculation Method: 15-20 kcals/kg Estimated protein needs (grams): 80-96 Grams protein determined by: 1.0 - 1.2 g/kg, [place] body weight Diet Orders (From admission, onward) Start Ordered 06/15/24 1637 DIET RENAL START NOW Question: Renal Answer: 2400 MG K / 2400 MG NA 06/15/24 1637 Anthropometrics: Height: 185.4 cm (6' 0.99) Weight: 126 kg (277 lb 12.5 oz) Body mass index is 36.66 kg/m?. Weight change percentage over time: 4.8% weight loss X 8 months per [facility] records Weight Change: Not clinically significant weight [...] Observed: 06/16/2024 12:02 PM Status: COMPLETED Source: [facility] HNO ID: [id number] Author: SHARON DALY APRN.SWEAT BOX ATTENDANT Service: Wound Care Team Author Type: Nurse Practitioner Type: Consults Filed: 06/16/2024 12:21 Note Text: WOUND CARE SERVICE SUPERVISOR PARTIAL DENTURE DEPARTMENT CONSULT NOTE SERVICE DATE: 06/16/2024 SERVICE TIME: [...] wound. Recommend the patient follow with wound clinic/[facility] outpatient to further manage and care for [...] disease (HCC) ESRD (end stage renal disease) ([facility]) Essential hypertension GERD (gastroesophageal reflux disease) Heart failure ([facility]) HLD (hyperlipidemia) Hyperkalemia Hyperlipidemia Hypertension Hypertensive heart and chronic kidney disease with heart failure and stage 1 through stage 4 chronic kidney disease, or chronic kidney disease (HCC) Hypo-osmolality and hyponatremia Hypomagnesemia Hypothyroidism Insomnia Insomnia Kidney transplant failure Kidney transplant status penitentiary current use of insulin ([facility]) Major depressive disorder, recurrent, unspecified ([facility]) Mood disorder (HCC) Morbid (severe) obesity due to excess calories ([facility]) Muscle weakness Neurogenic bowel Neurogenic bowel, not elsewhere classified Neuromuscular dysfunction of bladder Neuromuscular dysfunction of bladder Neuropathy Non-pressure chronic ulcer of other part of unspecified foot with unspecified severity ([facility]) Obstructive sleep apnea Osteomyelitis of vertebra, sacral and sacrococcygeal region ([facility]) Other disorders of phosphorus metabolism Other idiopathic peripheral autonomic neuropathy Other pericardial effusion (noninflammatory) Other pulmonary embolism without acute cor pulmonale, unspecified chronicity (HCC) Paraplegia (HCC) Paraplegia, incomplete ([facility]) Penile erosion 04/23/2023 Pressure ulcer of ischium, stage 4 ([facility]) Pressure ulcer of left buttock, unspecified stage Right foot ulcer ([facility]) Sepsis ([facility]) Type 2 diabetes ([facility]) Unspecified protein-calorie malnutrition ([facility]) UTI (urinary tract infection) Vitamin D deficiency [...] 06/16/2024 8:41 AM Wound Image Site Assessment [place];Red;White Monie-Wound Assessment Moist ;[place] Wound Length (cm) 0.4 cm Wound Width [...] 06/16/2024 8:37 AM Wound Image Site Assessment Maceration;[place] Monie-Wound Assessment Scarred;Moist Drainage Description Colorless Drainage Amount Scant Odor None Treatments Cleansed;Open to Air No associated orders. Wound 06/16/24 0837 Pressure Injury Ischium Left (Active) Assessments 06/16/2024 8:37 AM Wound Image IF PATIENT HAS A PRESSURE INJURY: WHEN WAS IT ACQUIRED? (Document one time during this admission) Present on Admission during this Encounter Pressure Injury Stage Stage 4 (Healing) Site Assessment [place];Maceration Monie-Wound Assessment Maceration;Moist ;Scarred Wound Length (cm) [...] - Recommend the patient follow with wound clinic/[facility] outpatient to further manage and care for [...] dry. Gently fill the wound with Vashe (Edward # [id number]) moistened 1/2 NuGuaze and cover with a [...] off-load heel, while in bed. (oracle number [id number]) - Obtain Medline Comfort [place] Sheet (oracle number [id number]) and Turning wedge (oracle number [id number]) to off-load patient's coccyx/ischium every 2 hours. - Maintain bed with [place] Bed IsoTour Blower, for low air-loss feature. [...] Review under the Scanned Docs tab in [facility]. The purpose of the photo(s) is to [...] which included preparing to see the patient, [id number] patient care, completing clinical documentation, performing a medically appropriate examination, counseling and educating the patient/family/caregiver, and communicating with other HCPs (not separately reported). SIGNATURE: Sharon Daly, MSN, SUPERVISOR PARTIAL DENTURE DEPARTMENT, SWEAT BOX ATTENDANT, CWOCN PATIENT NAME: China Guillen DATE: June 16, 2024 TIME: 12:02 PM CONSULT PROG Observed: 06/16/2024 11:44 AM Status: COMPLETED Source: [facility] ID: [id number] Author: LUIS A MOHAN PA-C Service: Nephrology Author Type: Physician Catch Basin Cleaner Type: Consult Progress Note Filed: 06/16/2024 14:54 Note Text: Department of Kidney Medicine Medical Specialties [facility] NEPHROLOGY CONSULT SERVICE PROGRESS NOTE INTERVAL [...] scan) and now ESRD - dialyzes at [facility] MWF via L AVF 2. Electrolytes: [...] 2mg BID, will confirm mmf dosing with [facility] (unit closed today) -> initially reported [...] Mg- or Phos- containing enemas Consent for EMERGENCY RESPONSE TECHNICIAN: ESRD Luis A Mohan PA-C Department of Kidney Medicine [facility] June 16, 2024 11:44 AM PAGER # [phone] Disclosures: Parts of the current progress note may have been copied from a previous note. FOR AFTER HOUR CONCERNS BETWEEN 5PM - 7AM CONTACT ON-CALL NEPHROLOGY FELLOW [phone] PLAN OF CARE Observed: 06/16/2024 11:11 AM Status: COMPLETED Source: [facility] HNO ID: [id number] Author: LAKIA BRYANT, Shanna Service: Pharmacy Author Type: Drafting Instructor Type: Plan of Care Filed: 06/16/2024 11:11 Note Text: Insurance investigation completed Patient has active prescription insurance: Yes - Patient's insurance is in-network with [facility] Insurance loaded into Wade: Yes Test claim was completed to verify insurance is active: Successful Any questions, please reach out to your medication access lead. Lakia Bryant CPhT Medication Metalizing Machine Operator [id number] CONSULT Observed: 06/16/2024 11:08 AM Status: COMPLETED Source: [facility] HNO ID: [id number] Author: ANDERSON KHAN DPM Service: Podiatry Author [...] HPI: Diabetic patient who is followed by composition tile layer at facility for right foot plantar wound. [...] to follow peripherally, [place] [phone] if there is any changes in patient [...] Acquired absence of left leg above knee ([facility]) Acquired absence of other right toe(s) ([facility]) Acute infarction of spinal cord ([facility]) Acute kidney failure, unspecified ([facility]) Acute osteomyelitis of left ankle or foot ([facility]) Acute pulmonary edema (HCC) Anemia Anemia in chronic kidney disease (CKD) Body mass index 40.0-44.9, adult ([facility]) Cerebral infarction due to unspecified occlusion or stenosis of unspecified cerebral artery ([facility]) Chronic kidney disease (CKD), stage IV (severe) ([facility]) Chronic systolic (congestive) heart failure (HCC) Congestive heart failure (CHF) (HCC) Dependence on renal dialysis (HCC) Depression Diabetes mellitus with chronic kidney disease (HCC) End stage renal disease ([facility]) ESRD (end stage renal disease) ([facility]) Essential hypertension GERD (gastroesophageal reflux disease) Heart failure ([facility]) HLD (hyperlipidemia) Hyperkalemia Hyperlipidemia Hypertension Hypertensive heart and chronic kidney disease with heart failure and stage 1 through stage 4 chronic kidney disease, or chronic kidney disease (HCC) Hypo-osmolality and hyponatremia Hypomagnesemia Hypothyroidism Insomnia Insomnia Kidney transplant failure Kidney transplant status penitentiary current use of insulin (HCC) Major depressive disorder, recurrent, unspecified (HCC) Mood disorder (HCC) Morbid (severe) obesity due to excess calories ([facility]) Muscle weakness Neurogenic bowel Neurogenic bowel, not elsewhere classified Neuromuscular dysfunction of bladder Neuromuscular dysfunction of bladder Neuropathy Non-pressure chronic ulcer of other part of unspecified foot with unspecified severity ([facility]) Obstructive sleep apnea Osteomyelitis of vertebra, sacral and sacrococcygeal region (HCC) Other disorders of phosphorus metabolism Other idiopathic peripheral autonomic neuropathy Other pericardial effusion (noninflammatory) Other pulmonary embolism without acute cor pulmonale, unspecified chronicity (HCC) Paraplegia (HCC) Paraplegia, incomplete (HCC) Penile erosion 04/23/2023 Pressure ulcer of ischium, stage 4 ([facility]) Pressure ulcer of left buttock, unspecified stage Right foot ulcer ([facility]) Sepsis ([facility]) Type 2 diabetes ([facility]) Unspecified protein-calorie malnutrition ([facility]) UTI (urinary tract infection) Vitamin D deficiency [...] this patient Carrol Bledsoe DPM, PGY-1 Podiatry Manufacturing Production Manager Pager: [phone] 06/16/2024 11:08 AM For questions after 5PM and on weekends, please page [phone]. I saw and evaluated the patient. Discussed with the resident and agree with resident's findings and plan as documented in the resident's note. Anderson Khan DPM CASE MGT INIT ANGEL Observed: 06/16/2024 10:47 AM Status: COMPLETED Source: [facility] HNO ID: [id number] Author: KATHERIN OLMOS RN Service: Care Management Author Type: Registered Nurse Type: Care Mgt Initial Assessment Filed: 06/16/2024 15:08 Note Text: CARE MANAGEMENT: ASSESSMENT AND DISCHARGE PLAN SERVICE DATE: June 16, 2024 SERVICE TIME: 10:47 AM PCP: Lang Peres DO Primary Contact: No emergency contact information on file. Admission Status: Inpatient Insurance Provider: [facility] MEDICARE ADVANTAGE PPO Discharge Planning requested by: Per Department Practice Potential Transition Plans Half-Way Facility/Intermediate Care Facility Advance Directives Current Advance Directive: None Tank Setter Attempted to Assist with AD Completion: Yes Action: Education Provided Current Living Arrangements and Support Lives with: Other person(s) [facility] [place]key [place] for the past couple years Type of Residence: Extended Care Facility Support: fundraising manager/director of social media marketing, Organized support group How do you manage to accomplish the following: Needs Assistance: Bathe/Shower;Meals/Meal Prep Dependent: Ambulation;Dress;Going to the bathroom;Medication Management;Transportation to appointments/community Current Services/Equipment Current Post-Acute Service(s): Dialysis Current Post-Acute Service(s) Provider: Padmaja cota site of ECF Discharge Planning Patient Goal(s): General wellness [place] Choice Explained: [place] of Choice Given: Yes Level of Care Discussed: Other: See Comment (Return to prior [facility]) Are you interested in bedside delivery of your medications? No Discharge Planning Participant(s): Patient Caregiver Assessment: Caregiver is ready, willing and able to meet the patient's needs as recommended by the inter-professional team: Yes Name of Caregiver: F [facility] Transportation Arrangements: Ambulance Transportation Agency and Phone #:: [facility] [phone] Date of Trip: 06/17/24 Time of Trip: (Tasked for 2pm) Type of Service: BLS Non-emergency Is Patient Medicaid Pending?: No Was transportation financial coverage discussed with family?: Patient Farm Butcher Location: Main [place] Destination: [address] Financial Care Management Responsibility: None Needs [...] wheelchair DME. Has been a resident of [facility] for about 1 year. Per treatment team, Discharge is anticipated 06/17. Updated clinical sent. [facility] confirmed they are ready to accept the patient back, NO INSURANCE AUTHORIZATION NEEDED. MMT transport has been requested/tasked for 06/17 at 2pm and can be adjusted as needed. Facility and treatment team updated. CM to follow. SIGNATURE: Katherin Olmos RN PATIENT NAME: China Guillen DATE: June 16, 2024 TIME: 2:32 PM CBC PNL BLD AUTO Collected: 4 5:45 AM Status: F Source: [facility] Order Comment: Specimen Type : BLOOD SPECIMEN [facility]ing Facility: [facility] Address: [address] [place] [address] TYPE CODE TESTS RESULT OUT OF RANGE REFERENCE UNITS LAB 6690-2([facility]) WBC # Bld Auto 7.43 3.70-11.00 k/uL LAB 789-8(LOINC) RBC # Bld Auto 3.46 Low 4.20-6.00 m/uL LAB 718-7(INC) Hgb Bld-mCnc 9.8 Low 13.0-17.0 g/dL LAB 4544-3([facility]) Hct VFr Bld Auto 31.1 Low 39.0-51.0 % LAB 787-2([facility]) MCV RBC Auto 89.9 80.0-100.0 fL LAB 785-6([facility]) MCH RBC Qn Auto 28.3 26.0-34.0 pg LAB 786-4([facility]) MCHC RBC Auto-mCnc 31.5 30.5-36.0 g/dL LAB 44355-7([facility]) RDW RBC-Rto 16.8 High 11.5-15.0 % LAB 777-3([facility]) Platelet # Bld Auto 164 150-400 k/uL LAB 75156-2([facility]) PMV Bld Auto 11.8 9.0-12.7 fL LAB 771-6([facility]) nRBC # Bld Auto <0.01 <0.01 k/uL Performed By: #### 07194-7 # ### [facility] CLIA [id number] [address] [place] [address] [place] BAS METAB 2000 PNL SERPL Collected: 04/2024 5:45 AM Status: F Source: [facility] Order Comment: Specimen Type : BLOOD SPECIMEN Ordering Facility: [facility] Address: [address] [place] [address] TYPE CODE TESTS RESULT OUT OF RANGE REFERENCE UNITS LAB 2345-7([facility]) Glucose SerPl-mCnc 189 High 74-99 mg/dL Result Comment: The [place] Diabetes Association (ADA) provides guidance for cutoff [...] Standards of Medical Care in Diabetes 2016, [place] Diabetes Association. Diabetes Care. 2016.39(Suppl 1). LAB 3094-0(LOINC) BUN SerPl-mCnc 62 High 9-24 mg/ dL LAB 2160-0(LOINC) Creat SerPl-mCnc 7.68 High 0.73-1.22 mg/dL LAB 2951-2(LOINC) Sodium SerPl-sCnc 137 136-144 mmol/L LAB 2823-3(LOINC) Potassium SerPl-sCnc 5.9 High 3.7-5.1 mmol/L LAB 2075-0(LOINC) Chloride SerPl-sCnc 96 Low 98-107 mmol/L LAB 2028-9(LOINC) CO2 SerPl-sCnc 25 22-30 mmo l/L LAB 58256-2(LOINC) Anion Gap SerPl-sCnc 16 High 8-15 mmol/L LAB 10932-3(LOINC) Calcium SerPl-mCnc 9.4 8.5-10.2 mg/dL LAB 29680-0(LOINC) Creatinine + eGFR Pnl SerPlBld 9 Low [...] accurately reflect actual GFR. Performed By: #### 40325-7, 2777-1 #### [facility] CLIA [id number] [address] [place] [address] [place] PHOSPHATE SERPL-MCNC Collected: 06/16/2024 5:45 AM S tatus: F Source: [facility] Order Comment: Specimen Type : BLOOD SPECIMEN Ordering Facility: [facility] Address: [address] [place] [address] TYPE CODE TESTS RESULT OUT OF RANGE REFERENCE UNITS LAB 2777-1(LOINC) Phosphate SerPl-mCnc 4.1 2.7-4.8 mg/dL Performed By: #### 34275-7, 2777-1 #### [facility] CLIA [id number] [address] [place] [address] OF TRUMAN POTASSIUM Collected: 11:30 PM Status: F Source: [facility] Order Comment: Specimen Type : BLOOD SPECIMEN Ordering Facility: [facility] Address: [address] [place] [address] TYPE CODE TESTS RESULT OUT OF RANGE REFERENCE UNITS LAB 2823-3(LOINC) Potassium SerPl-sCnc 4.8 3.7-5.1 mmol/L Performed By: #### K1 #### [facility] CLIA [id number] [address] [place] [address] OF TRUMAN BUN P DIALYSIS SERPL-MCNC Collected: 06/15/2024 9:55 PM Status: F Source: [facility] Order Comment: Specimen Type : BLOOD SPECIMEN Ordering Facility: [facility] Address: [address] [place] [address] TYPE CODE TESTS RESULT OUT OF RANGE REFERENCE UNITS LAB 10078-4(LOINC) BUN p dialysis SerPl-mCnc 52 High 9-24 mg/dL LAB BUNRAT UREA REDUCTION RATIO WITH BUNPR 36 % Performed By: #### 81040-8 # ### [facility] CLIA [id number] [address] [place] [address] OF TRUMAN ED NOTE Observed: 06/15/2024 8:08 PM Status: COMPLETED Source: [facility] HNO ID: [id number] Author: ELENA PRABHAKAR RN Service: ? Author Type: Registered Nurse Type: ED Notes Filed: 06/15/2024 20:08 Note Text: Report given to DUSTIN Booth BUN PRE DIAL SERPL-MCNC Collected: 06/15/2024 8:08 PM Status: F Source: [facility] Order Comment: Specimen Type : BLOOD SPECIMEN Ordering Facility: [facility] Address: [address] [place] [address] TYPE CODE TESTS RESULT OUT OF RANGE REFERENCE UNITS LAB 96376-9(LOINC) BUN pre dial SerPl-mCnc 81 High 9-24 mg/dL Performed By: #### 92258-9 # ### [facility] CLIA [id number] [address] [place] [address] ED NOTE Observed: 06/15/2024 7:25 PM Status: COMPLETED Source: [facility] HNO ID: [id number] Author: ADRIEN BEAVER RN Service: Emergency Medicine Author Type: Registered Nurse Type: ED Notes Filed: 06/15/2024 19:59 Note Text: Assumed patient care. Report given from DUSTIN Hood. Report included current status of patient, chief compliant, and treatment plan. ED NOTE Observed: 06/15/2024 5:42 PM Status: COMPLETED Source: [facility] HNO ID: [id number] Author: ELENA PRABHAKAR RN Service: ? Author [...] Observed: 06/15/2024 5:03 PM Status: COMPLETED Source: [facility] HNO ID: [id number] Author: CALEB BLACKWELL MD Service: Hospital Medicine Author Type: Physician Type: H&P Filed: 06/15/2024 17:48 Note Text: DEPARTMENT OF HOSPITAL MEDICINE HISTORY AND PHYSICAL EXAM SERVICE DATE: 06/15/2024 SERVICE TIME: 5:03 PM Primary Care Physician: Lang Peres DO NIGHT AND WEEKEND COVERAGE: [facility] COVERAGE: Days: [phone], please page Caleb Blackwell for patient issues. Nights: [phone], please page Team GIM 10: G/H 8th floor: 15058; Non 8th floor [address] Subjective CHIEF COMPLAINT: Hyperkalemia HPI: This is a 38 year old male [place] resident with medical history of T2DM on [...] Acquired absence of left leg above knee ([facility]) Acquired absence of other right toe(s) ([facility]) Acute infarction of spinal cord ([facility]) Acute kidney failure, unspecified ([facility]) Acute osteomyelitis of left ankle or foot ([facility]) Acute pulmonary edema ([facility]) Anemia Anemia in chronic kidney disease (CKD) Body mass index 40.0-44.9, adult ([facility]) Cerebral infarction due to unspecified occlusion or stenosis of unspecified cerebral artery ([facility]) Chronic kidney disease (CKD), stage IV (severe) ([facility]) Chronic systolic (congestive) heart failure ([facility]) Congestive heart failure (CHF) ([facility]) Dependence on renal dialysis ([facility]) Depression Diabetes mellitus with chronic kidney disease ([facility]) End stage renal disease ([facility]) ESRD (end stage renal disease) ([facility]) Essential hypertension GERD (gastroesophageal reflux disease) Heart failure ([facility]) HLD (hyperlipidemia) Hyperkalemia Hyperlipidemia Hypertension Hypertensive heart and chronic kidney disease with heart failure and stage 1 through stage 4 chronic kidney disease, or chronic kidney disease ([facility]) Hypo-osmolality and hyponatremia Hypomagnesemia Hypothyroidism Insomnia Insomnia Kidney transplant failure 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 peaked T Waves [facility] Dialysis Nephrology unit contacted and he will [...] Prophylaxis/Anticoagulants 06/15/24 1637 activity - mobilize patient (mn,md) VTE Prophylaxis: VTE prophylaxis appropriate Disposition: To be determined Plan of care discussed with Provider, RN, Patient SIGNATURE: Caleb Blackwell MD PATIENT NAME: China Guillen DATE: June 15, 2024 TIME: 5:03 PM ED NOTE Observed: 06/15/2024 5:00 PM Status: COMPLETED Source: [facility] HNO ID: [id number] Author: RAFAEL ORTIZ MD Service: Emergency Medicine Author Type: Resident Type: ED Notes Filed: 06/15/2024 23:00 Note Text: SS for CR 38 yo M, hx of ESRD Sent from [facility] for htn Admitted to medicine, HD tonight CONSULT Observed: 06/15/2024 3:49 PM Status: COMPLETED Source: [facility] HNO ID: [id number] Author: LUIS A MOHAN PA-C Service: Nephrology Author Type: Physician [place] Cleaner Type: Consults Filed: 06/15/2024 15:57 Note Text: Department of Kidney Medicine Medical Specialties [facility] NEPHROLOGY CONSULT NOTE Patient Name: China [...] Acquired absence of left leg above knee ([facility]) Acquired absence of other right toe(s) ([facility]) Acute infarction of spinal cord ([facility]) Acute kidney failure, unspecified ([facility]) Acute osteomyelitis of left ankle or foot (HCC) Acute pulmonary edema ([facility]) Anemia Anemia in chronic kidney disease (CKD) Body mass index 40.0-44.9, adult ([facility]) Cerebral infarction due to unspecified occlusion or stenosis of unspecified cerebral artery ([facility]) Chronic kidney disease (CKD), stage IV (severe) ([facility]) Chronic systolic (congestive) heart failure ([facility]) Congestive heart failure (CHF) ([facility]) Dependence on renal dialysis ([facility]) Depression Diabetes mellitus with chronic kidney disease ([facility]) End stage renal disease ([facility]) ESRD (end stage renal disease) ([facility]) Essential hypertension GERD (gastroesophageal reflux disease) Heart failure ([facility]) HLD (hyperlipidemia) Hyperkalemia Hyperlipidemia Hypertension Hypertensive heart and chronic kidney disease with heart failure and stage 1 through stage 4 chronic kidney disease, or chronic kidney disease ([facility]) Hypo-osmolality and hyponatremia Hypomagnesemia Hypothyroidism Insomnia Insomnia Kidney transplant failure Kidney transplant status penitentiary current use of insulin ([facility]) Major depressive disorder, recurrent, unspecified ([facility]) Mood disorder ([facility]) Morbid (severe) obesity due to excess calories ([facility]) Muscle weakness Neurogenic bowel Neurogenic bowel, not elsewhere classified Neuromuscular dysfunction of bladder Neuromuscular dysfunction of bladder Neuropathy Non-pressure chronic ulcer of other part of unspecified foot with unspecified severity ([facility]) Obstructive sleep apnea Osteomyelitis of vertebra, sacral and sacrococcygeal region ([facility]) Other disorders of phosphorus metabolism Other idiopathic peripheral autonomic neuropathy Other pericardial effusion (noninflammatory) Other pulmonary embolism without acute cor pulmonale, unspecified chronicity (HCC) Paraplegia (HCC) Paraplegia, incomplete ([facility]) Penile erosion 04/23/2023 Pressure ulcer of ischium, stage 4 ([facility]) Pressure ulcer of left buttock, unspecified stage Right foot ulcer ([facility]) Sepsis ([facility]) Type 2 diabetes (HCC) Unspecified protein-calorie malnutrition [...] hypoglycemia not responsive to oral intervention. Notify SWEAT BOX ATTENDANT/MDDisp: Rfl: LANTUS U-100 INSULIN 100 unit/mL injectionInject [...] darbepoetin jacki in polysorbate (ARANESP) 40 mcg/mL ayesanmhl19 mcg. Use 40 mcg intravenously as needed [...] Mg- or Phos- containing enemas Consent for EMERGENCY RESPONSE TECHNICIAN: ESRD Luis A Mohan PA-C Department of Kidney Medicine [facility] Pager: [phone] June 15, 2024 3:49 PM FOR AFTER HOUR CONCERNS BETWEEN 5PM - 7AM CONTACT ON-CALL NEPHROLOGY FELLOW [id number] BAS METAB 2000 PNL SERPL Collected: 03/2024 2:21 PM Status: F Source: [facility] Order Comment: Specimen Type : BLOOD SPECIMEN Ordering Facility: [facility] Address: [address] [place] [address] TYPE CODE TESTS RESULT OUT OF RANGE REFERENCE UNITS LAB 2345-7(LOINC) Glucose SerPl-mCnc 229 High 74-99 mg/dL Result Comment: The [place] Diabetes Association (ADA) provides guidance for cutoff [...] Standards of Medical Care in Diabetes 2016, [place] [employer] Association. Diabetes Care. 2016.39(Suppl 1). LAB 3094-0(LOINC) BUN SerPl-mCnc 76 High 9-24 mg/ dL LAB 2160-0(LOINC) Creat SerPl-mCnc 8.99 High 0.73-1.22 mg/dL LAB 2951-2(LOINC) Sodium SerPl-sCnc 137 136-144 mmol/L LAB 2823-3(LOINC) Potassium SerPl-sCnc 6.4 High Alert 3.7-5.1 mmol/L LAB 2075-0(LOINC) Chloride SerPl-sCnc 97 Low 98-107 mmol/L LAB 2028-9(LOINC) CO2 SerPl-sCnc 23 22-30 mmo l/L LAB 30936-7(LOINC) Anion Gap SerPl-sCnc 17 High 8-15 mmol/L LAB 96987-1(LOINC) Calcium SerPl-mCnc 9.5 8.5-10.2 mg/dL LAB 92546-8(LOINC) Creatinine + eGFR Pnl SerPlBld 7 Low [...] accurately reflect actual GFR. Performed By: #### [id number], 86503-3 #### [facility] CLIA [id number] [address] [place] [address] [place] HIGH SENSITIVITY TROPONIN T (THIRD) 3 HRS AFTER INITIAL Collected: 06/15/2024 2:21 PM Status: F Source: [facility] Order Comment: Specimen Type : BLOOD SPECIMEN Ordering Facility: [facility] Address: [address] [place] [address] TYPE CODE TESTS RESULT OUT OF RANGE REFERENCE UNITS LAB 29499-1([facility]) Troponin T SerPl HS-mCnc 777 High <12 ng/L Performed By: #### [id number], 26726-7 #### [facility] CLIA [id number] [address] [place] [address] [place] ED NOTE Observed: 06/15/2024 2:06 PM Status: COMPLETED Source: [facility] HNO ID: [id number] Author: JUAN R PIERCE MD Service: Emergency [...] Collected: 06/15/2024 1:17 PM Status: F Source: [facility] Order Comment: Specimen Type : BLOOD SPECIMEN Ordering Facility: [facility] Address: [address] [place] [address] TYPE CODE TESTS RESULT OUT OF RANGE REFERENCE UNITS LAB 59376-6(LOINC) Troponin T SerPl HS-nc 787 High <12 ng/L Performed By: #### [id number] # ### [facility] CLIA [id number] [address] [place] [address] PROGRESS Observed: 06/15/2024 12:44 PM Status: COMPLETED Source: [facility] HNO ID: [id number] Author: MISA LEBLANC RT(Elif) Service: ? Author Type: Technologist Type: Progress Notes Filed: 06/15/2024 12:44 Note Text: xray: chest XR CHEST 1V FRONTAL PORT Observed: 06/15 12:29 PM Status: F Source: [facility] * * *Final Report* * * [...] stable. Other: . IMPRESSION: Probable interstitial edema. Property Condition Assessor: SANDY Transcribe Date/Time: Jun 15 2024 12:45P Dictated by : SLOANE AKHTAR MD This examination was interpreted and the report reviewed and electronically signed by: SLOANE AKHTAR MD on Jun 15 2024 12:46PM EST [id number] BAS METAB 1999 PNL SERPL Collected: 03/2024 12:12 PM Status: F Source: [facility] Order Comment: Specimen Type : BLOOD SPECIMEN Ordering Facility: [facility] Address: [address] [place], [place] [address] [address] TYPE CODE TESTS RESULT OUT OF RANGE REFERENCE UNITS LAB 2345-7(LOINC) Glucose SerPl-mCnc 133 High 74-99 mg/dL Result Comment: The [place] Diabetes Association (ADA) provides guidance for cutoff [...] Standards of Medical Care in Diabetes 2016, [place] Diabetes Association. Diabetes Care. 2016.39(Suppl 1). LAB 3094-0(LOINC) BUN SerPl-mCnc 74 High 9-24 mg/ dL LAB 2160-0(LOINC) Creat SerPl-mCnc 8.64 High 0.73-1.22 mg/dL LAB 2951-2(LOINC) Sodium SerPl-sCnc 137 136-144 mmol/L LAB 2823-3(LOINC) Potassium SerPl-sCnc 6.8 High Alert 3.7-5.1 mmol/L LAB 2075-0(LOINC) Chloride SerPl-sCnc 98 98-107 mmol/L LAB 2027-9(LOINC) CO2 SerPl-sCnc 24 22-30 mmo l/L LAB 29142-2(LOINC) Anion Gap SerPl-sCnc 15 8-15 mmol/L LAB 46417-1(LOINC) Calcium SerPl-mCnc 9.1 8.5-10.2 mg/dL LAB 64603-3(LOINC) Creatinine + eGFR Pnl SerPlBld 8 Low [...] accurately reflect actual GFR. Performed By: #### 60959-0, [id number] #### [facility] CLIA [id number] [address] [place] [address] [place] HIGH SENSITIVITY TROPONIN T (INITIAL) Collected: 06/15/2024 12:12 PM Status: F Source: [facility] Order Comment: Specimen Type : BLOOD SPECIMEN Ordering Facility: [facility] Address: [address] [place] [address] TYPE CODE TESTS RESULT OUT OF RANGE REFERENCE UNITS LAB 08132-0([facility]) Troponin T SerPl HS-mCnc 785 High <12 ng/L Performed By: #### 89354-0, [id number] #### [facility] CLIA [id number] [address] [place] [address] [place] CBC W AUTO DIFF BLD Collected: 06/15/2024 12:12 PM S tatus: F Source: [facility] Order Comment: Specimen Type : BLOOD SPECIMEN Ordering Facility: [facility] Address: [address] [place] [address] TYPE CODE TESTS RESULT OUT OF RANGE REFERENCE UNITS LAB 6690-2(LOINC) WBC # Bld Auto 6.87 3.70-11.00 k/uL LAB 789-8(LOINC) RBC # Bld Auto 3.71 Low 4.20-6.00 m/ uL LAB 718-7([facility]) Hgb Bld-mCnc 10.3 Low 13.0-17.0 g/dL LAB 4544-3([facility]) Hct VFr Bld Auto 33.1 Low 39.0-51.0 % LAB 787-2([facility]) MCV RBC Auto 89.2 80.0-100.0 fL LAB 785-6([facility]) MCH RBC Qn Auto 27.8 26.0-34.0 p g LAB 786-4([facility]) MCHC RBC Auto-mCnc 31.1 30.5-36.0 g/dL LAB 63590-6([facility]) RDW RBC-Rto 16.7 High 11.5-15.0 % LAB 777-3([facility]) Platelet # Bld Auto 161 150-400 k/uL LAB 83342-9([facility]) PMV Bld Auto 10.8 9.0-12.7 fL LAB 770-8([facility]) Neutrophils/leuk NFr Bld Auto 66.0 % LAB 751-8([facility]) Neutrophils # Bld Auto 4.54 1.45-7.50 k/uL LAB 736-9([facility]) Lymphocytes/leuk NFr Bld Auto 22.6 % LAB 731-0([facility]) Lymphocytes # Bld Auto 1.55 1.00-4.00 k/uL LAB 5905-5([facility]) Monocytes/leuk NFr Bld Auto 6.3 % LAB 742-7([facility]) Monocytes # Bld Auto 0.43 <0.87 k/uL LAB 713-8([facility]) Eosinophil/leuk NFr Bld Auto 4.1 % LAB 711-2([facility]) Eosinophil # Bld Auto 0.28 <0.46 k/uL LAB 706-2([facility]) Basophils/leuk NFr Bld Auto 0.7 % LAB 704-7([facility]) Basophils # Bld Auto 0.05 <0.11 k/uL LAB 37000-7([facility]) Imm Granulocytes/ravinder k NFr Bld Auto 0.3 % LAB 72073-5([facility]) Imm Granulocytes # Bld Auto <0.03 <0.10 k/uL LAB 98563-7([facility]) nRBC/100 WBC Bld-Rto 0.0 /100 WBC LAB 771-6([facility]) nRBC # Bld Auto <0.01 <0.01 k/u L LAB 15587-2([facility]) Differential method Bld Auto Performed By: #### 44161-7, 95639-1, 5195-3 #### [facility] CLIA [id number] [address] [place] [address] HBV SURFACE AG SER QL Collected: 2023 12:12 PM Status: F Source: [facility] Order Comment: Specimen Type : BLOOD SPECIMEN Ordering Facility: [facility] Address: [address] [place] [address] TYPE CODE TESTS RESULT OUT OF RANGE REFERENCE UNITS LAB 51953([facility]) HBV surface Ag Ser Ql Negative Negative Performed By: #### 37411-0, 29090-0, 5-3 #### [facility] CLIA [id number] [address] [place] [address] OF [place] HBV SURFACE AB SER QL Collected: 2023 12:12 PM Status: F Source: [facility] Order Comment: Specimen Type : BLOOD SPECIMEN Ordering Facility: [facility] Address: [address] [place] [address] TYPE CODE TESTS RESULT OUT OF RANGE REFERENCE UNITS LAB 43967-4([facility]) HBV surface Ab Ser Ql Positive Result Comment: Consistent w ith serological evidence of immunity to Hepatitis B Virus. LAB 78982-1([facility]) HBV surface Ab Ser-aCnc 641.88 mIU/mL Result Comment: <8 mIU/mL: N o serological evidence of immunity to Hepatitis B Virus. >/= 8 to <12 mIU/mL: No serological evidence of immunity to Hepatitis B Virus. >/= 12 mIU/mL: Consistent with serological evidence of immunity to Hepatitis B Virus. Performed By: #### 82980-6, 55352-7, 5195-3 #### [facility] CLIA [id number] [address] [place] [id number] [place] OF [facility] ED NOTE Observed: 06/15/2024 11:46 AM Status: COMPLETED Source: [facility] HNO ID: [id number] Author: CANELO JORDAN RN Service: Emergency Medicine Author Type: Registered Nurse Type: ED Notes Filed: 06/15/2024 11:46 Note Text: Got 10mg hydralazine in [facility] ED NOTE Observed: 06/15/2024 11:43 AM Status: COMPLETED Source: [facility] HNO ID: [id number] Author: CANELO JORDAN RN Service: Emergency Medicine Author Type: Registered Nurse Type: ED Notes Filed: 06/15/2024 11:44 Note Text: [phone] shital chan at [facility] can provide updates. ED PROV NOTE Observed: 06/15/2024 11:38 AM Status: COMPLETED Source: [facility] HNO ID: [id number] Author: TREVER JOHNSTON MD Service: Emergency Medicine Author Type: Physician Type: ED Provider Notes Filed: 06/16/2024 09:10 Note Text: ED Provider Note Patient Name: China Guillen : 1985 SERVICE DATE: 06/15/24 History Patient presents with: Hypertension: PT here from [facility]. Was scheduled for cataract surgery today but [...] who is presenting to the ED from [facility] for hypertension in the setting of missed dialysis. Pt was scheduled to have cataract surgery today but was sent here d/t hypertension and hyperkalemia. Pt endorses right-sided chest discomfort x3 days as well as SOB but denies any nausea, vomiting, fevers, chills, cough, congestion. Chart Review: -EEG performed at [facility] 04/23/2024 -Office visit with orthopedics at [facility] 02/21/2023 s/p BKA of left lower extremity -Admission 10/11/22 for left BKA PAST MEDICAL HISTORY Diagnosis Date - Acquired absence of left leg above knee ([facility]) - Acquired absence of other right toe(s) ([facility]) - Acute infarction of spinal cord ([facility]) - Acute kidney failure, unspecified ([facility]) - Acute osteomyelitis of left ankle or foot ([facility]) - Acute pulmonary edema ([facility]) - Anemia - Anemia in chronic kidney disease (CKD) - Body mass index 40.0-44.9, adult ([facility]) - Cerebral infarction due to unspecified occlusion or stenosis of unspecified cerebral artery ([facility]) - Chronic kidney disease (CKD), stage IV (severe) ([facility]) - Chronic systolic (congestive) heart failure ([facility]) - Congestive heart failure (CHF) ([facility]) - Dependence on renal dialysis ([facility]) - Depression - Diabetes mellitus with chronic kidney disease ([facility]) - End stage renal disease ([facility]) - ESRD (end stage renal disease) ([facility]) - Essential hypertension - GERD (gastroesophageal reflux disease) - Heart failure ([facility]) - HLD (hyperlipidemia) - Hyperkalemia - Hyperlipidemia - Hypertension - Hypertensive heart and chronic kidney disease with heart failure and stage 1 through stage 4 chronic kidney disease, or chronic kidney disease ([facility]) - Hypo-osmolality and hyponatremia - Hypomagnesemia - Hypothyroidism - Insomnia - Insomnia - Kidney transplant failure - Kidney transplant status - penitentiary current use of insulin ([facility]) - Major depressive disorder, recurrent, unspecified ([facility]) - Mood disorder ([facility]) - Morbid (severe) obesity due to excess calories ([facility]) - Muscle weakness - Neurogenic bowel - Neurogenic bowel, not elsewhere classified - Neuromuscular dysfunction of bladder - Neuromuscular dysfunction of bladder - Neuropathy - Non-pressure chronic ulcer of other part of unspecified foot with unspecified severity ([facility]) - Obstructive sleep apnea - Osteomyelitis of vertebra, sacral and sacrococcygeal region ([facility]) - Other disorders of phosphorus metabolism - Other idiopathic peripheral autonomic neuropathy - Other pericardial effusion (noninflammatory) - Other pulmonary embolism without acute cor pulmonale, unspecified chronicity ([facility]) - Paraplegia ([facility]) - Paraplegia, incomplete ([facility]) - Penile erosion 04/23/2023 - Pressure ulcer of ischium, stage 4 ([facility]) - Pressure ulcer of left buttock, unspecified stage - Right foot ulcer ([facility]) - Sepsis ([facility]) - Type 2 diabetes (HCC) - Unspecified [...] nursing note reviewed. Exam conducted with a electronics installer present. Constitutional: General: He is not in [...] Disposition / Plan 38-year-old male presenting from [facility] for hypertension in the setting of [...] ischemic changes. Therefore, ACS less likely. Repeat bywgt-ry-vvtd lites were obtained, and potassium significantly improved [...] from or confirmed by: other (see comments) (TOW MATE). External record(s) reviewed: prior outpatient record and prior inpatient record. 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 Findings from review of outpatient records: Sent from outpatient Pre-Op to ED today for hyperkalemia and HTN Differential Diagnoses - hyperkalemia - ACS is less likely for the following reason(s): cardiac markers stable, Management Management of the patient was discussed with:admitting team, medical sales consultant and admitting team Discussion with admitting team included: Medicine Discussion with medical sales consultant included: Renal I performed an independent [...] per minute AXIS: Normal axis INTERVALS: Normal FL interval QRS COMPLEX: Normal ST SEGMENT: Normal [...] Observed: 06/15/2024 11:05 AM Status: COMPLETED Source: [facility] HNO ID: [id number] Author: JADE RAYMUNDO, RN Service: Nursing Author Type: Registered Nurse Type: Nursing Progress Note Filed: 06/15/2024 11:14 Note Text: Rapid response called due to Potassium 6.8 ANES PRE-OP Observed: 06/15/2024 11:04 AM Status: COMPLETED Source: [facility] HNO ID: [id number] Author: NICKIE OVALLE MD Service: ? Author Type: Anesthesiologist Type: Anesthesia Preprocedure Evaluation Filed: 06/15/2024 11:09 Note Text: ANESTHESIOLOGY DAY OF SURGERY NOTE : 1985 Procedure Information Date/Time: 06/15/24 1115 Procedure: PHACOEMULSIFICATION CATARACT IMPLANT INTRAOCULAR LENS W/O ENDOSCOPIC CYCLOPHOTOCOAGULATION (Right: Eye) Location: [place] [address] / [facility] Surgeons: Anderson Swanson MD Estimated [...] and consent discussed: yes. Patient / Responsible Republican agrees to proceed: yes Patient / Surrogate [...] Ovalle MD PATIENT NAME: China Guillen DATE: June 15, 2024 TIME: 11:04 AM CSN: [id number] GAS + CO PNL BLDV Collected: 10:43 AM Status: F Source: [facility] Order Comment: Specimen Type : VENOUS BLOOD SPECIMEN Ordering Facility: [facility] Address: [address] [place] [address] TYPE CODE TESTS RESULT OUT OF RANGE REFERENCE UNITS LAB 2746-6(LOINC) pH BldV 7.36 7.32-7.42 LAB 42734-4(LOINC) pH temp adj BldV 7.36 7.32-7.42 LAB 2020-4(LOINC) pCO2 BldV 53 42-55 mmHg LAB 83378-7(LOINC) pCO2 temp adj BldV 53 42-55 mmHg LAB 2705-2(LOINC) pO2 BldV 47 High 35-45 mmHg LAB 86874-9(LOINC) pO2 temp adj BldV 47 High 35-45 mmHg LAB 2711-0(LOINC) SaO2 % BldV 77 60-85 % LAB 1927-3(LOINC) Base excess BldV Calc-sCnc 3 High 0-2 mmol/L LAB 20223-7(LOINC) HCO3 BldV-sCnc 29 High 24-28 mmol/L LAB 2716-9(LOINC) OxyHgb MFr BldV 75 60-85 % LAB 2032-1(LOINC) COHgb MFr BldV 1.5 0.0-2.0 % Result Comment: Carboxyhemog lobin Reference Range for Smokers: 2.0-8.0% LAB 2614-6(LOINC) MetHgb MFr Bld 0.6 0.0-1.5 % LAB 2947-0(LOINC) Sodium Bld-sCnc 140 136-144 mmol/L LAB 6298-4(LOINC) Potassium Bld-sCnc 6.8 High Alert 3.5-5.0 mmol/L LAB 21628-1(LOINC) Ca-I Bld-mCnc 1.24 1.08-1.30 m mol/L LAB 11629-0([facility]) Ca-I adj pH7.4 BldA-sCnc 1.22 1.08-1.30 mmol/L LAB 2339-0([facility]) Glucose Bld-mCnc 154 High 60-105 mg/dL LAB 02820-6([facility]) Lactate Bld-sCnc 1.0 0.5-2.2 mmol/L LAB 718-7([facility]) Hgb Bld-mCnc 11.1 Low 13.0-17.0 g/dL LAB 4544-3([facility]) Hct VFr Bld Auto 34.2 Low 39.0-51.0 % LAB DTNOTIFY DATE/TIME NOTIFIED [id number] AM LAB CMTSS COMMENTS Critical Value: K+ LAB [id number] NOTIFIED WHOM Eulogio Stevens Performed By: #### 58812-4 # ### [facility] CLIA [id number] [address] [place] [address] STATES OF [facility] PROGRESS Observed: 04/30/2024 2:52 PM Status: COMPLETED Source: [facility] HNO ID: [id number] Author: ANDERSON SWANSON MD Service: ? Author [...] NAME / CODE REACTION SEVERITY SOURCE Drug Class/[id number](SNO MED CT) NO KNOWN ALLERGIES [facility] ENCOUNTERS ADMIT/DISCHARGE ACCOUNT NUMBER ADMITTING ENCOUNTER CLASS LOCATION SOURCE 03/09/2025/03/09/20 25 [id number] Ambulatory [facility] HospitalBuild ing:OPHT [facility] 02/23/2025/02/24/20 25 [id number] Ambulatory [facility] HospitalBuild ing:WOUR [facility] 02/16/2025/02/17/20 25 [id number] Ambulatory [facility] HospitalBuild ing:OPHT [facility] 12/31/2024/01/01/20 25 [id number] Amb[facility] HospitalBuild ing:HIOM [facility] 12/22/2024/12/23/19 25 [id number] Ambulatory [facility] HospitalBuild ing:OPHT [facility] 12/02/2024/12/06/19 25 [id number] OSCAR CHOWDHURY [facility]: [id number]: [id number] [facility] 12/02/2024/12/03/19 [id number] MUNIR BURTON Ambulatory [facility] HospitalBuild ing:S730Yhti: MONIE-005Bed: I010 [facility] 11/17/2024 [id number] [facility] HOSPITALBuild ing:B11LPT [facility] 11/17/2024 [id number] [facility] HOSPITALBuild ing:B11LPT [facility] 11/17/2024 [id number] [facility] HOSPITALBuild ing:B11LPT [facility] 11/05/2024/11/06/19 [id number] Ambulatory [facility] HospitalBuild ing:WOPA [facility] 10/15/2024/10/16/19 [id number] [facility] HospitalBuild ing:WOCA [facility] 10/08/2024/10/09/19 [id number] [facility] HospitalBuild ing:WOPA [facility] 09/29/2024/09/30/19 [id number] Amb[facility] HospitalBuild ing:OPHT [facility] 09/29/2024/09/30/19 [id number] [facility] HospitalBuild ing:OPHT [facility] 07/28/2024/07/28/19 [id number] [facility] HospitalBuild ing:OPHT [facility] 07/28/2024/07/28/19 [id number] [facility] HospitalBuild ing:OPHT [facility] 06/15/2024/06/17/20 [id number] CARRIE SALGADO Inpatient Encounter [facility] HospitalBuild ing:N546Ofkw: [id number]: H080-09 [facility] 06/15/2024/06/15/20 24 [id number] ANDERSON SWANSON Amb[facility] HospitalBuild ing:B647Shzp: MONIE-006Bed: I010-06 [facility] 06/15/2024/06/15/20 24 [id number] [facility] HospitalBuild ing:OPHT [facility] 04/30/2024/04/30/20 [id number] [facility] HospitalBuild ing:OPHT [facility] PAYERS ENCOUNTER GUARANTOR PAYER SUBSCRIBER SOURCE 03/09/2025 Primary Insurance:[facility] MEDICARE ADVANTAGE PPOPolicy Number: [id number] Date:9726-66-16Tcvx Name:Nehemiah GUILLENB: [id number] [place], [place] [address] [place] [address] 03/09/2025 Secondary Insurance:[facility] MEDICAIDPolicy Number: [id number] Date:6710-13-04Theg Name:Lamar GUILLENB: [id number] [place], [place] [address] [place] [address] 02/23/2025 Primary Insurance:[facility] MEDICARE ADVANTAGE PPOPolicy Number: [id number] Date:0839-54-66Islw Name:Nehemiah MOSCOSORAYMONROSSYB: [id number] [place], [place] [address] [place] [address] 02/23/2025 Secondary Insurance:[facility] MEDICAIDPolicy Number: [id number] Date:2576-32-06Qyyv Name:Lamar GUILLENB: [id number] [place], [place] [address] [place] [address] 02/16/2025 Primary Insurance:[facility] MEDICARE ADVANTAGE PPOPolicy Number: [id number] Date:7031-75-02Kkoz Name:Nehemiah GUILLENB: [id number] [place], [place] [address] [place] [address] 02/16/2025 Secondary Insurance:[facility] MEDICAIDPolicy Number: [id number] Date:2916-85-40Dqav Name:Lamar GUILLENB: [id number] [place], [place] [address] [place] [address] 12/31/2024 Primary Insurance:[facility] MEDICARE ADVANTAGE PPOPolicy Number: [id number] Date:0765-37-98Oqdd Name:Nehemiah GARCIAB: [id number] [place], [place] [address] [place] [address] 12/31/2024 [facility] MED[facility]IDPolicy Number: [id number] Date:6831-72-20Jdcs Name:Lamar GARCIAB: [id number] [place], [place] [address] [place] [address] 12/22/2024 Primary Insurance:[facility] MEDICARE ADVANTAGE PPOPolicy Number: [id number] Date:5998-55-71Djix Name:Nehemiah GARCIAB: [id number] [place], [place] [address] [place] [address] 12/22/2024 Secondary Insurance:[facility] MEDICAIDPolicy Number: [id number] Date:7083-08-65Hynl Name:Lamar GARCIAB: [id number] [place], [place] [address] [place] [address] 12/02/2024 Primary Insurance:[facility] MEDICARE ADVANTAGE PPOPolicy Number: [id number] Date:9010-26-90Plvf Name:Nehemiah GARCIAB: [id number] [place], [place] [address] [place] [address] 12/02/2024 Secondary Insurance:[facility] MEDICAIDPolicy Number: [id number] Date:4429-91-29Ktsj Name:Lamar GARCIAB: [id number] [place], [place] [address] [place] [address] 12/02/2024 Primary Insurance:[facility] MEDICARE ADVANTAGE PPOPolicy Number: [id number] Date:4734-64-40Qanc Name:Nehemiah GARCIAB: [id number] [place], [place] [address] [place] [address] 12/02/2024 Secondary Insurance:[facility] MEDICAIDPolicy Number: [id number] Date:5754-95-14Mqch Name:Lamar GUILLENDOB: [id number] [place] [address] [facility] 11/17/2024 CHINA GUILLEN IIIDOB: [place], [place] [address]Sbo: ~(3 30 (HP) Primary Insurance:OPTUM HEALTHPolicy Number: [id number] Date:2419-13-43Hbxv Name:[employer] [address] [address]JV: CHINA GUILLEN IIIDOB: [id number] [place], [place] [address]Snq: (HP) [facility] 11/17/2024 Secondary Insurance:[facility] PPOPolicy Number: [id number] Date:1216-46-22Rmzb Name:MAGUE GUILLEN IIIDOB: [id number] [place], [place] [address]Rco: (HP) [facility] 11/17/2024 Tertiary Insurance:[facility] MEDICAID COMMUNITY PLANPolicy Number: [id number] Date:1773-56-12Tgsj Name:HOLDEN CHINA GUILLEN IIIDOB: [id number] [place], [place] [address]Lqb: (HP) [facility] 11/17/2024 CHINA GUILLEN IIIDOB: [place], [place] [address]Vmt: ~(3 30 (HP) Primary Insurance:OPTUM HEALTHPolicy Number: [id number] Date:0138-49-20Eiez Name:[facility] [address] [place] [address]MA: CHINA GUILLEN IIIDOB: [id number] [place], [place] [address]Qyq: (HP) [facility] 11/17/2024 Secondary Insurance:[facility] PPOPolicy Number: [id number] Date:4826-02-90Tjyb Name:MAGUE GUILLEN IIIDOB: [id number] [place], [place] [address]Jwv: (HP) [facility] 11/17/2024 Tertiary Insurance:[facility] MEDICAID COMMUNITY PLANPolicy Number: [id number] Date:3002-28-00Cwfu Name:HOLDEN GUILLEN IIIDOB: [id number] [place], [place] [address]Zvo: (HP) [facility] 11/17/2024 CHINA GUILLEN IIIDOB: [place], [place] [address]Twr: ~(5 30 (HP) Primary Insurance:OPTUM HEALTHPolicy Number: [id number] Date:5690-82-66Nudo Name:[facility] [address]ZI: CHINA GUILLEN IIIDOB: 1398-80-19ZUB8086 [place], [place] [address]Egk: (HP) [facility] 11/17/2024 Secondary Insurance:[facility] PPOPolicy Number: [id number] Date:4665-72-88Jjuk Name:MAGUE GUILLEN IIIDOB: 3324-79-73WCN1566 [place], [place] [address]Eqq: (HP) [facility] 11/17/2024 Tertiary Insurance:[facility] MEDICAID COMMUNITY PLANPolicy Number: [id number] Date:5973-12-90Xqrb Name:HOLDEN Herrera WILMER ALSTONDOB: [id number] [place], [place] [address]Tel: () [facility] 11/05/2024 Primary Insurance:[facility] MEDICARE ADVANTAGE PPOPolicy Number: [id number] Date:2969-63-20Ivrs Name:Nehemiah Herrera WILMERDOB: [id number] [address] 11/05/2024 Secondary Insurance:[facility] MEDICAIDPolicy Number: [id number] Date:5998-37-18Ktia Name:Lamar Herrera RADHAB: [id number] [address] 10/15/2024 Primary Insurance:[facility] MEDICARE ADVANTAGE PPOPolicy Number: [id number] Date:0415-60-55Vzuz Name:Nehemiah Herrera RADHAB: [id number] [address] 10/15/2024 Secondary Insurance:[facility] MEDICAIDPolicy Number: [id number] Date:9358-14-31Hcuf Name:Lamar Herrera RADHAB: [id number] [address] 10/08/2024 Primary Insurance:[facility] MEDICARE ADVANTAGE PPOPolicy Number: [id number] Date:9521-16-04Eqhu Name:Nehemiah Herrera RADHAB: [id number] [address] 10/08/2024 Secondary Insurance:[facility] MEDICAIDPolicy Number: [id number] Date:2565-61-87Dkfi Name:Lamar GARCIAB: [id number] [place], [place] [address] [place] [address] 09/29/2024 Primary Insurance:[facility] MEDICARE ADVANTAGE PPOPolicy Number: [id number] Date:6982-68-89Asxq Name:Nehemiah GARCIAB: [id number] [place], [place] [address] [place] [address] 09/29/2024 Secondary Insurance:[facility] MEDICAIDPolicy Number: [id number] Date:5590-53-95Uqnm Name:Lamar GARCIAB: [id number] [place], [place] [address] [place] [address] 09/29/2024 Primary Insurance:[facility] MEDICARE ADVANTAGE PPOPolicy Number: [id number] Date:9951-01-79Palm Name:Nehemiah GARCIAB: [id number] [place], [place] [address] [place] [address] 09/29/2024 Secondary Insurance:[facility] MEDICAIDPolicy Number: [id number] Date:1496-39-68Zmud Name:Lamar GARCIAB: [id number] [address] [place], [place] [address] [place] [address] 07/28/2024 Primary Insurance:[facility] MEDICARE ADVANTAGE PPOPolicy Number: [id number] Date:9379-79-27Jiuy Name:Nehemiah GARCIAB: [id number] [address] [place], [place] [address] [place] [address] 07/28/2024 Secondary [facility] MEDICAIDPolicy Number: [id number] Date:2097-43-09Nrts Name:Lamar GARCIAB: [id number] [place], [place] [address] [place] [address] 07/28/2024 Primary Insurance:[facility] MEDICARE ADVANTAGE PPOPolicy Number: [id number] Date:3110-06-19Jfoi Name:Nehemiah GARCIAB: [id number] [place], [place] [address] [place] [address] 07/28/2024 Secondary Insurance:[facility] MEDICAIDPolicy Number: [id number] Date:9455-29-78Zrmg Name:Lamar GARCIAB: [id number] [place], [place] [address] [place] [address] 06/15/2024 Primary Insurance:[facility] MEDICARE ADVANTAGE PPOPolicy Number: [id number] Date:9071-34-60Xoso Name:Nehemiah GARCIAB: [id number] [address] 06/15/2024 Secondary Insurance:[facility] MEDICAIDPolicy Number: [id number] Date:2393-59-62Tkye Name:Lamar GARCIAB: [id number] [place], [place] [address] [place] [address] 06/15/2024 Primary Insurance:[facility] MEDICARE ADVANTAGE PPOPolicy Number: [id number] Date:3906-47-29Oohl Name:Nehemiah GARCIAB: [id number] [place], [place] [address] [place] [address] 06/15/2024 Secondary Insurance:[facility] MEDICAIDPolicy Number: [id number] Date:1026-67-42Dqma Name:Lamar GARCIAB: [id number] [place], [place] [address] [place] [address] 06/15/2024 Primary Insurance:[facility] MEDICARE ADVANTAGE PPOPolicy Number: [id number] Date:1016-47-92Ehok Name:Nehemiah GARCIAB: [id number] [address] [place], [place] [address] [place] [address] 06/15/2024 Secondary Insurance:[facility] MEDICAIDPolicy Number: [id number] Date:5590-60-75Ofyx Name:Lamar Herrera SAL: [id number] [address] [place], [place] [address] [place] [address] 04/30/2024 Primary Insurance:[facility] MEDIC[facility] ADVANTAGE PPOPolicy Number: [id number] Date:4266-24-61Fhei Name:Nehemiah Herrera SAL: [id number] [address] [place], [place] [address] [place] [address] 04/30/2024 Secondary Insurance:[facility] MEDICAIDPolicy Number: [id number] Date:5261-95-15Ulrr Name:Lamar Herrera SAL: [id number] [address] [place], [place] [address] [place] [address]
[2025-04-06 07:55] LABS: Hematocrit 32.4 % (40-54); Hemoglobin 10.3 g/dL (13.0-16.5); Mean Corp Hgb Conc 31.8 g/dL (32-36); Mean Corpuscular Volume 99.1 fL (80-94); Mean Platelet Vol. 11.1 fl (6.2-12.0); Platelet Count 155 K/mm3 (150-450); RBC Distribution Width CV 13.5 % (11.6-14.6); RBC Distribution Width SD 49.1 fl (35.1-43.9); Red Blood Count 3.27 M/mm3 (4.6-6.2); White Blood Count 6.1 K/mm3 (4.4-11.0)
[2025-04-06 09:05] LABS: Anion Gap 15 (5-15); BUN 66 mg/dL (4-19); BUN/Creat Ratio 8.7 RATIO (10-20); Calcium,Total 9.0 mg/dL (7.6-11.0); Carbon Dioxide 26.8 mmol/L (21.0-32.0); Chloride 97 mmol/L (98-108); Glucose 151 mg/dL (70-99); Potassium 4.9 mmol/L (3.3-5.1)
== END ==
LOC: OLS.SW 05:00
PROVIDERS: PCP Internal Medicine; Visit Provider Family Medicine
DX: N18.6 End stage renal disease (principal); N39.0 Urinary tract infection, site not specified
CPT/HCPCS: 36415; 80048; 85027

== ENCOUNTER → 2025-04-15 | Outpatient (REF) | payer MEDICARE, MEDICAID, SELFPAY ==
[2025-04-15 10:06] LABS: Hematocrit 31.6 % (40-54); Hemoglobin 10.0 g/dL (13.0-16.5); Mean Corp Hgb Conc 31.6 g/dL (32-36); Mean Corpuscular Volume 99.1 fL (80-94); Mean Platelet Vol. 11.1 fl (6.2-12.0); Platelet Count 170 K/mm3 (150-450); RBC Distribution Width CV 13.2 % (11.6-14.6); RBC Distribution Width SD 47.9 fl (35.1-43.9); Red Blood Count 3.19 M/mm3 (4.6-6.2); White Blood Count 5.4 K/mm3 (4.4-11.0)
[2025-04-15 11:26] LABS: Anion Gap 13 (5-15); BUN 54 mg/dL (4-19); BUN/Creat Ratio 7.2 RATIO (10-20); Calcium,Total 8.7 mg/dL (7.6-11.0); Carbon Dioxide 28.2 mmol/L (21.0-32.0); Chloride 97 mmol/L (98-108); Glucose 171 mg/dL (70-99); Potassium 5.1 mmol/L (3.3-5.1)
== END ==
LOC: OLS.SW 05:00
PROVIDERS: PCP Internal Medicine; Visit Provider Family Medicine
DX: E11.9 Type 2 diabetes mellitus without complications (principal)
CPT/HCPCS: 36415; 80048; 85027

== ENCOUNTER → 2025-04-20 04:00 | Outpatient (REF) | payer MEDICARE, MEDICAID, SELFPAY ==
[2025-04-20 09:14] LABS: Hematocrit 30.1 % (40-54); Hemoglobin 9.7 g/dL (13.0-16.5); Mean Corp Hgb Conc 32.2 g/dL (32-36); Mean Corpuscular Volume 98.4 fL (80-94); Mean Platelet Vol. 11.0 fl (6.2-12.0); Platelet Count 152 K/mm3 (150-450); RBC Distribution Width CV 13.3 % (11.6-14.6); RBC Distribution Width SD 47.4 fl (35.1-43.9); Red Blood Count 3.06 M/mm3 (4.6-6.2); White Blood Count 6.3 K/mm3 (4.4-11.0)
[2025-04-20 09:30] LABS: Anion Gap 12 (5-15); BUN 58 mg/dL (4-19); BUN/Creat Ratio 7.5 RATIO (10-20); Calcium,Total 8.8 mg/dL (7.6-11.0); Carbon Dioxide 30.4 mmol/L (21.0-32.0); Chloride 96 mmol/L (98-108); Glucose 114 mg/dL (70-99); Potassium 5.5 mmol/L (3.3-5.1)
== END ==
LOC: OLS.SW 04:00
PROVIDERS: PCP Internal Medicine; Referring Provider Family Medicine; Visit Provider Family Medicine
DX: E78.5 Hyperlipidemia, unspecified (principal); I82.409 Acute embolism and thrombosis of unspecified deep veins of unspecified lower extremity; N18.6 End stage renal disease; N39.0 Urinary tract infection, site not specified
CPT/HCPCS: 36415; 80048; 85027

== ENCOUNTER → 2025-04-27 | Outpatient (REF) | payer MEDICARE, MEDICAID, SELFPAY ==
[2025-04-27 07:45] LABS: Hematocrit 29.6 % (40-54); Hemoglobin 9.8 g/dL (13.0-16.5); Mean Corp Hgb Conc 33.1 g/dL (32-36); Mean Corpuscular Volume 97.0 fL (80-94); Mean Platelet Vol. 11.3 fl (6.2-12.0); Platelet Count 170 K/mm3 (150-450); RBC Distribution Width CV 13.5 % (11.6-14.6); RBC Distribution Width SD 48.4 fl (35.1-43.9); Red Blood Count 3.05 M/mm3 (4.6-6.2); White Blood Count 6.8 K/mm3 (4.4-11.0)
[2025-04-27 08:14] LABS: Anion Gap 11 (5-15); BUN 58 mg/dL (4-19); Calcium,Total 9.0 mg/dL (7.6-11.0); Carbon Dioxide 30.0 mmol/L (21.0-32.0); Chloride 96 mmol/L (98-108); Glucose 229 mg/dL (70-99); Potassium 5.1 mmol/L (3.3-5.1)
[2025-04-28 04:59] LABS: BUN/Creat Ratio 7.5 RATIO (10-20)
== END ==
LOC: OLS.SW 04:00
PROVIDERS: PCP Internal Medicine; Referring Provider Family Medicine; Visit Provider Family Medicine
DX: N18.6 End stage renal disease (principal); N39.0 Urinary tract infection, site not specified
CPT/HCPCS: 36415; 80048; 85027

== ENCOUNTER → 2025-05-04 | Outpatient (REF) | payer MEDICARE, MEDICAID, SELFPAY ==
[2025-05-04 08:38] LABS: Hematocrit 30.7 % (40-54); Hemoglobin 10.0 g/dL (13.0-16.5); Mean Corp Hgb Conc 32.6 g/dL (32-36); Mean Corpuscular Volume 97.8 fL (80-94); Mean Platelet Vol. 10.8 fl (6.2-12.0); Platelet Count 157 K/mm3 (150-450); RBC Distribution Width CV 13.4 % (11.6-14.6); RBC Distribution Width SD 47.8 fl (35.1-43.9); Red Blood Count 3.14 M/mm3 (4.6-6.2); White Blood Count 6.0 K/mm3 (4.4-11.0)
[2025-05-04 09:24] LABS: Anion Gap 13 (5-15); BUN 54 mg/dL (4-19); BUN/Creat Ratio 7.0 RATIO (10-20); Calcium,Total 9.2 mg/dL (7.6-11.0); Carbon Dioxide 30.0 mmol/L (21.0-32.0); Chloride 95 mmol/L (98-108); Glucose 169 mg/dL (70-99); Potassium 4.8 mmol/L (3.3-5.1)
== END ==
LOC: OLS.SW 05:00
PROVIDERS: PCP Internal Medicine; Visit Provider Family Medicine
DX: N18.6 End stage renal disease (principal)
CPT/HCPCS: 36415; 80048; 85027

== ENCOUNTER → 2025-05-11 05:00 | Outpatient (REF) | payer MEDICARE, MEDICAID, SELFPAY ==
[2025-05-11 08:40] LABS: Hematocrit 31.9 % (40-54); Hemoglobin 10.3 g/dL (13.0-16.5); Mean Corp Hgb Conc 32.3 g/dL (32-36); Mean Corpuscular Volume 97.3 fL (80-94); Mean Platelet Vol. 10.9 fl (6.2-12.0); Platelet Count 165 K/mm3 (150-450); RBC Distribution Width CV 13.2 % (11.6-14.6); RBC Distribution Width SD 47.3 fl (35.1-43.9); Red Blood Count 3.28 M/mm3 (4.6-6.2); White Blood Count 5.2 K/mm3 (4.4-11.0)
[2025-05-11 09:07] LABS: Cholesterol 78 mg/dL (<=200); Low Density Lipoprotein Calc. 37 mg/dL; Pro- Brain NATRIURETIC PEPTIDE 4459 pg/mL (<=450); Triglycerides 59 mg/dL; Very Low Density Lipoprotein 12 mg/dL (5-40); cholesterol:hdl ratio screen 2.90
[2025-05-11 09:23] LABS: Anion Gap 12 (5-15); BUN 54 mg/dL (4-19); BUN/Creat Ratio 6.9 RATIO (10-20); Calcium,Total 9.1 mg/dL (7.6-11.0); Carbon Dioxide 30.9 mmol/L (21.0-32.0); Chloride 95 mmol/L (98-108); Glucose 166 mg/dL (70-99); Potassium 4.8 mmol/L (3.3-5.1)
== END ==
LOC: OLS.SW 05:00
PROVIDERS: PCP Internal Medicine; Visit Provider Family Medicine
DX: E11.22 Type 2 diabetes mellitus with diabetic chronic kidney disease (principal); N18.6 End stage renal disease; E78.5 Hyperlipidemia, unspecified
CPT/HCPCS: 36415; 80048; 80061; 83036; 83880; 84443; 85027

== ENCOUNTER → 2025-05-18 05:00 | Outpatient (REF) | payer MEDICARE, MEDICAID, SELFPAY ==
[2025-05-18 08:31] LABS: Hematocrit 30.6 % (40-54); Hemoglobin 9.9 g/dL (13.0-16.5); Mean Corp Hgb Conc 32.4 g/dL (32-36); Mean Corpuscular Volume 97.8 fL (80-94); Mean Platelet Vol. 10.7 fl (6.2-12.0); Platelet Count 151 K/mm3 (150-450); RBC Distribution Width CV 13.3 % (11.6-14.6); RBC Distribution Width SD 47.0 fl (35.1-43.9); Red Blood Count 3.13 M/mm3 (4.6-6.2); White Blood Count 6.1 K/mm3 (4.4-11.0)
[2025-05-18 08:51] LABS: Anion Gap 14 (5-15); BUN 59 mg/dL (4-19); BUN/Creat Ratio 7.6 RATIO (10-20); Calcium,Total 8.9 mg/dL (7.6-11.0); Carbon Dioxide 24.9 mmol/L (21.0-32.0); Chloride 95 mmol/L (98-108); Glucose 171 mg/dL (70-99); Potassium 4.9 mmol/L (3.3-5.1)
== END ==
LOC: OLS.SW 05:00
PROVIDERS: PCP Internal Medicine; Visit Provider Family Medicine
DX: I13.2 Hypertensive heart and chronic kidney disease with heart failure and with stage 5 chronic kidney disease, or end stage renal disease (principal); I50.9 Heart failure, unspecified; N18.9 Chronic kidney disease, unspecified
CPT/HCPCS: 36415; 80048; 85027

== ENCOUNTER → 2025-05-25 05:00 | Outpatient (REF) | payer MEDICARE, MEDICAID, SELFPAY ==
[2025-05-25 08:32] LABS: Hematocrit 32.3 % (40-54); Hemoglobin 10.4 g/dL (13.0-16.5); Mean Corp Hgb Conc 32.2 g/dL (32-36); Mean Corpuscular Volume 98.2 fL (80-94); Mean Platelet Vol. 10.9 fl (6.2-12.0); Platelet Count 156 K/mm3 (150-450); RBC Distribution Width CV 13.2 % (11.6-14.6); RBC Distribution Width SD 47.6 fl (35.1-43.9); Red Blood Count 3.29 M/mm3 (4.6-6.2); White Blood Count 6.1 K/mm3 (4.4-11.0)
[2025-05-25 08:55] LABS: Anion Gap 13 (5-15); BUN 52 mg/dL (4-19); BUN/Creat Ratio 6.5 RATIO (10-20); Calcium,Total 8.9 mg/dL (7.6-11.0); Carbon Dioxide 28.5 mmol/L (21.0-32.0); Chloride 96 mmol/L (98-108); Glucose 142 mg/dL (70-99); Potassium 4.9 mmol/L (3.3-5.1)
== END ==
LOC: OLS.SW 05:00
PROVIDERS: PCP Internal Medicine; Visit Provider Family Medicine
DX: N18.6 End stage renal disease (principal); N39.0 Urinary tract infection, site not specified
CPT/HCPCS: 36415; 80048; 85027

== ENCOUNTER → 2025-06-08 05:00 | Outpatient (REF) | payer MEDICARE, MEDICAID, SELFPAY ==
[2025-06-08 07:53] LABS: Hematocrit 32.7 % (40-54); Hemoglobin 10.5 g/dL (13.0-16.5); Mean Corp Hgb Conc 32.1 g/dL (32-36); Mean Corpuscular Volume 97.6 fL (80-94); Mean Platelet Vol. 11.1 fl (6.2-12.0); Platelet Count 150 K/mm3 (150-450); RBC Distribution Width CV 13.6 % (11.6-14.6); RBC Distribution Width SD 48.9 fl (35.1-43.9); Red Blood Count 3.35 M/mm3 (4.6-6.2); White Blood Count 7.0 K/mm3 (4.4-11.0)
[2025-06-08 08:36] LABS: Anion Gap 13 (5-15); BUN 62 mg/dL (4-19); BUN/Creat Ratio 7.5 RATIO (10-20); Calcium,Total 9.1 mg/dL (7.6-11.0); Carbon Dioxide 29.4 mmol/L (21.0-32.0); Chloride 94 mmol/L (98-108); Glucose 194 mg/dL (70-99); Potassium 5.4 mmol/L (3.3-5.1)
== END ==
LOC: OLS.SW 05:00
PROVIDERS: PCP Internal Medicine; Visit Provider Family Medicine
DX: N18.6 End stage renal disease (principal)
CPT/HCPCS: 36415; 80048; 85027

== ENCOUNTER → 2025-06-10 | Outpatient (CLI) | payer MEDICARE, SELFPAY ==
--- NOTE | 2025-06-10 07:47 | ECHOD_ITS ---
Reason For Study Reason For Study: CHF Procedure This was a 2D Doppler, Color Flow transthoracic echocardiogram. Echo performed with patient supine in motorized wheelchair. Exam performed in department. Left Ventricle Normal LV size. Mild concentric left ventricular hypertrophy. The left ventricular ejection fraction is 55 %. No regional wall motion abnormalities noted. Right Ventricle Normal RV size. Normal systolic function. Atria The left atrium is mildly enlarged. Normal right atrium. Mitral Valve Normal mitral valve. Tricuspid Valve Normal tricuspid valve. Aortic Valve Trisinus/trileaflet aortic valve. Pulmonic Valve Normal pulmonic valve. Mild (1+) pulmonic valve insufficiency. Great Vessels Normal aortic root. The pulmonary artery is normal size. Inferior vena cava collapse with respiration. Pericardium/Pleural No pericardial effusion. MMode/2D Measurements & Calculations LVIDd: 6.3 cm IVSd: 1.3 cm Ao root diam: 3.8 cm LVIDs: 4.1 cm LVPWd: 1.2 cm RVDd: 4.9 cm FS: 35.8 % LAV(MOD-bp): 70.7 ml LVAd ap4: 43.0 cm2 SV(MOD-sp4): 89.1 ml LAV(MOD-bp) Indexed: 27.2 ml/m2 LVLd ap4: 9.4 cm SI(MOD-sp4): 34.3 ml/m2 LAV(MOD-sp2): 70.9 ml EDV(MOD-sp4): 168.5 ml LAV(MOD-sp4): 67.4 ml EDV(sp4-el): 166.3 ml LVAs ap4: 27.8 cm2 LVLs ap4: 8.3 cm ESV(MOD-sp4): 79.4 ml ESV(sp4-el): 78.6 ml EF(MOD-sp4): 52.9 % EF(sp4-el): 52.7 % SV(sp4-el): 87.7 ml LA A4 area: 24.6 cm2 LA dimension(2D): 4.2 cm RA A4 area: 18.3 cm2 Time Measurements MV dec time: 0.15 sec Doppler Measurements & Calculations MV E max connor: 80.4 cm/sec Lat Peak E' Connor: 11.8 cm/sec Med Peak E' Connor: 8.3 cm/sec MV A max connor: 54.7 cm/sec E/E' lat: 6.8 E/E' med: 9.7 MV E/A: 1.5 MV V2 max: 97.5 cm/sec MV P1/2t max connor: 98.4 cm/sec Ao V2 max: 141.5 cm/sec MV max P.8 mmHg MV P1/2t: 63.5 msec Ao max P.0 mmHg MV V2 mean: 53.5 cm/sec Ao V2 mean: 100.5 cm/sec MV mean P.4 mmHg MV dec slope: 453.5 cm/sec2 Ao mean P.6 mmHg MV V2 VTI: 25.1 cm MVA(P1/2t): 3.5 cm2 Ao V2 VTI: 28.5 cm AV (velocity ratio): 0.85 LV V1 max: 117.0 cm/sec PA V2 max: 100.4 cm/sec LV V1 max P.5 mmHg PI dec slope: 255.0 cm/sec2 LV V1 mean P.2 mmHg LV V1 mean: 84.8 cm/sec LV V1 VTI: 24.2 cm ECHO/Echo Complete Interpretation Summary Normal LV size. The left ventricular ejection fraction is 55 %. Mild concentric left ventricular hypertrophy. Structurally normal valves. Ordering Physician: Marco A Cespedes Referring Physician: Marco A Cespedes Performed By: Yg Hull RCS
== END | disposition home or self-care (01) ==
PROVIDERS: PCP Internal Medicine
DX: I13.2 Hypertensive heart and chronic kidney disease with heart failure and with stage 5 chronic kidney disease, or end stage renal disease (principal); I50.22 Chronic systolic (congestive) heart failure
CPT/HCPCS: 93306

== ENCOUNTER → 2025-06-15 04:00 | Outpatient (REF) | payer MEDICARE, SELFPAY ==
[2025-06-15 10:33] LABS: Anion Gap 12 (5-15); BUN 67 mg/dL (4-19); BUN/Creat Ratio 8.2 RATIO (10-20); Calcium,Total 9.0 mg/dL (7.6-11.0); Carbon Dioxide 30.9 mmol/L (21.0-32.0); Chloride 95 mmol/L (98-108); Glucose 157 mg/dL (70-99); Potassium 5.5 mmol/L (3.3-5.1)
[2025-06-15 10:49] LABS: Hematocrit 33.8 % (40-54); Hemoglobin 10.6 g/dL (13.0-16.5); Mean Corp Hgb Conc 31.4 g/dL (32-36); Mean Corpuscular Volume 98.3 fL (80-94); Mean Platelet Vol. 11.5 fl (6.2-12.0); Platelet Count 191 K/mm3 (150-450); RBC Distribution Width CV 13.4 % (11.6-14.6); RBC Distribution Width SD 47.9 fl (35.1-43.9); Red Blood Count 3.44 M/mm3 (4.6-6.2); White Blood Count 11.0 K/mm3 (4.4-11.0)
== END ==
LOC: OLS.SW 04:00
PROVIDERS: PCP Internal Medicine; Referring Provider Family Medicine; Visit Provider Family Medicine
DX: N39.0 Urinary tract infection, site not specified (principal)
CPT/HCPCS: 36415; 80048; 85027

== ENCOUNTER → 2025-06-22 05:00 | Outpatient (REF) | payer MEDICARE, MEDICAID, SELFPAY ==
[2025-06-22 08:31] LABS: Hematocrit 31.8 % (40-54); Hemoglobin 10.2 g/dL (13.0-16.5); Mean Corp Hgb Conc 32.1 g/dL (32-36); Mean Corpuscular Volume 98.1 fL (80-94); Mean Platelet Vol. 10.8 fl (6.2-12.0); Platelet Count 172 K/mm3 (150-450); RBC Distribution Width CV 13.7 % (11.6-14.6); RBC Distribution Width SD 49.0 fl (35.1-43.9); Red Blood Count 3.24 M/mm3 (4.6-6.2); White Blood Count 6.0 K/mm3 (4.4-11.0)
[2025-06-22 08:53] LABS: Anion Gap 14 (5-15); BUN 51 mg/dL (4-19); BUN/Creat Ratio 6.5 RATIO (10-20); Calcium,Total 8.9 mg/dL (7.6-11.0); Carbon Dioxide 28.4 mmol/L (21.0-32.0); Chloride 96 mmol/L (98-108); Glucose 110 mg/dL (70-99); Potassium 4.4 mmol/L (3.3-5.1)
== END ==
LOC: OLS.SW 05:00
PROVIDERS: PCP Internal Medicine; Visit Provider Family Medicine
DX: N18.6 End stage renal disease (principal)
CPT/HCPCS: 36415; 80048; 85027

== ENCOUNTER 2025-06-22 09:01 | Inpatient (IN) | payer MEDICARE, MEDICAID, SELFPAY ==
[2025-06-22] VITALS (47 sets, daily range): BP systolic 60–144; BP diastolic 20–107; PULSE 90–102; RESP 13–25; TEMP 37.2–39.4; O2SAT 95–100; BMI 39.4; BMI 43.1
--- NOTE | 2025-06-22 09:10 | EKG12_ITS ---
Test Reason : ALT LOC Blood Pressure : */* mmHG Vent. Rate : 100 BPM Atrial Rate : 100 BPM P-R Int : 150 ms QRS Dur : 76 ms QT Int : 360 ms P-R-T Axes : 40 20 70 degrees QTcB Int : 464 ms Normal sinus rhythm Possible Left atrial enlargement Nonspecific T wave abnormality Abnormal ECG Confirmed by Benedicto Kendrick ([id number]), editor farm journal DEANNA TOWNSEND ([id number]) on 06/23/2025 10:20:55 AM Referred By: Confirmed By: Benedicto Kendrick
--- NOTE | 2025-06-22 09:10 | RAD_ITS ---
PROCEDURE: CHEST 1 VIEW (PORTABLE) 06/22/2025 REASON FOR EXAM: FEVER WITH ALTERED LEVEL OF CONSCIOUSNESS TECHNIQUE: Frontal view of the chest. COMPARISON: November 09, 2024. FINDINGS: Hardware: EKG electrodes are seen. Heart: There is severe cardiomegaly. Tortuosity of the thoracic aorta. Lungs: Vascular congestion and CHF. Mild increased markings at the right lung base suggestive of superimposed atelectasis. Bones: Degenerative changes are identified within the thoracic spine. RAD/Chest 1 View (Portable) IMPRESSION: Cardiomegaly. Vascular congestion and mild CHF with right basilar atelectasis. Reading Location: [facility]
--- NOTE | 2025-06-22 09:11 | EX.ED.DYSGE1 ---
HPI History of Present Illness Chief Complaint: Alt LOC Detail of Chief Complaint: Fever with altered level of consciousness. Informant: EMS and SNF Onset/Context/Timing Onset: Today Context: Gradual Onset Timing: Continuous Current Severity: Moderate Maximum Severity: Moderate Narrative Narrative: 39-year-old male extensive past medical history including diabetes, ESBL E. coli, end-stage renal disease dialysis Saturday, PE and DVT on Eliquis, paraplegia, left leg below the knee amputation, blindness. Patient is a resident of a local [facility] facility. Reportedly has a altered level consciousness with a fever today. That is all the history I have at this time. I will be speaking with the [facility] were reaching out to them. Patient currently is unable to give me any history. He is obtunded. Prior similar symptoms: Yes Recent Illness/Hospitalization: Yes PFSH [facility] Medical History History of ESBL E. coli infection Anemia of chronic illness History of diabetes mellitus Anemia of chronic disease History of diabetes mellitus 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 disease Decubitus ulcer of ischial area Left patella fracture Chronic pain Chronic indwelling Hurst catheter Dialysis patient Kidney disease CPAP (continuous positive airway pressure) dependence Sleep apnea Hypertension Blind Encephalopathy Hyponatremia Hypertensive urgency Acute delirium Decubitus ulcer Abscess Left ischial pressure sore Open wound of left buttock with complication Current use of intermediate teacher anticoagulation Acute hyperkalemia Acute alteration in mental status Phantom limb syndrome with pain Paraplegia Metabolic encephalopathy ESRD (end stage renal disease) on dialysis Hx of pulmonary embolus Type 2 diabetes mellitus End-stage renal disease on hemodialysis Anticoagulant long-term use History of deep vein thrombosis Anemia in chronic kidney disease, on chronic dialysis Acute postoperative pain ferry terminal 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 (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) use of 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 H/O deep venous thrombosis Osteomyelitis of pelvic region Lives in [place] [facility] Anxiety Open wound Insulin dependent diabetes mellitus Uses wheelchair Injury of back 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 disease 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, stage 4 Neurogenic bowel Kidney transplant failure Dependence on renal dialysis Pressure ulcer of left heel, unspecified stage Gastro-esophageal reflux disease without esophagitis Other pericardial effusion (noninflammatory) Other pulmonary embolism without acute cor pulmonale Hypertensive heart and chronic kidney disease with heart failure and stage 1 through stage 4 chronic kidney disease, or unspecified chronic kidney disease Depression Hyperlipemia Hypothyroidism Anemia in chronic kidney disease Neuromuscular dysfunction of bladder, unspecified Paraplegia, incomplete Other acute osteomyelitis, left ankle and foot Home Medications ?Medication ?Instructions ?Recorded ?Last Taken ?Type dextrose 40 % oral gel (Glucose 15 g PO Q15M PRN HYPGLYCEMIA 01/02/23 Unknown History Gel) sennosides 8.6 mg-docusate sodium 1 tab-cap PO BID CONSTIPATION 01/02/23 06/22/25 History 50 mg capsule (Senna Plus) tacrolimus 1 mg capsule, 2 mg PO BID kidney transplant 01/02/23 06/22/25 05:15 History immediate-release (Prograf) failure sevelamer HCl 800 mg tablet 2,400 mg PO TID ESRD 04/21/23 06/22/25 05:15 History insulin lispro 100 unit/mL 1 sliding scale dose subcut TIDCM 03/22/24 06/21/25 16:20 History subcutaneous pen type 2 diabetes guaifenesin 100 mg/5 mL oral 200 mg PO Q4H PRN COUGH/CONGESTION 03/29/24 06/19/25 10:20 History liquid (Adult Tussin Chest Congestion) glucagon HCl 1 mg solution for 1 mg IM Q20M PRN HYPOGLYCEMIA 04/13/24 Unknown History injection (Glucagon (HCl) Emergency Kit) hydralazine 50 mg tablet 50 mg PO 4X/DAY BLOOD PRESSURE 04/13/24 06/22/25 05:15 History sodium phosphates 19 gram-7 118 ml NE BID PRN constipation 04/22/24 Unknown History gram/118 mL enema (Fleet Enema) insulin glargine 100 unit/mL (3 12 unit subcut QPM DM 06/27/24 06/21/25 History mL) subcutaneous pen (Lantus Solostar U-100 Insulin) insulin lispro 100 unit/mL 5 unit subcut TID DM 06/27/24 06/22/25 05:15 History subcutaneous solution apixaban 2.5 mg tablet (Eliquis) 2.5 mg PO BID KIDNEY DISEASE WITH 11/09/24 06/22/25 05:15 History HEART FAILURE duloxetine 30 mg capsule,delayed 60 mg PO QHS major depressive 11/09/24 06/21/25 21:10 History release disorder gabapentin 300 mg capsule 300 mg PO BID neuropathy 11/09/24 06/22/25 05:15 History clonidine HCl 0.2 mg tablet 0.2 mg PO BID hypertensive heart 02/19/25 06/21/25 21:10 History and chronic kidney disease atorvastatin 40 mg tablet 40 mg PO DAILY hyperlipidemia 03/01/25 06/21/25 21:10 History calcitriol 0.5 mcg capsule 0.5 mcg PO MOWEFR esrd received 03/01/25 06/21/25 05:10 History from dialysis carvedilol 25 mg tablet 50 mg PO BID heart failure and 03/01/25 06/22/25 05:15 History chronic kidney disease ivermectin 1 % topical cream 1 applic topical QHS for skin 03/01/25 06/21/25 21:10 History irritation levothyroxine 150 mcg tablet 150 mcg PO DAILY hypothyroidism 03/01/25 06/22/25 05:15 History melatonin 3 mg capsule 9 mg PO QHS 03/01/25 Unknown History metronidazole 1 % topical gel 1 applic topical DAILY PRN skin 03/01/25 Unknown History irritation midodrine 10 mg tablet 10 mg PO DAILY PRN hypotension 03/01/25 Unknown History ondansetron HCl 4 mg tablet 4 mg PO Q8H PRN PRN nausea and 03/01/25 06/15/25 12:20 History vomiting pantoprazole 40 mg tablet,delayed 40 mg PO DAILY gerd w/o esophagitis 03/01/25 06/22/25 05:15 History release ertapenem 1 gram solution for 0.5 g IV DAILY 2 doses 03/03/25 Unknown Rx injection acetaminophen 325 mg tablet 650 mg PO Q4H PRN fever or pain 06/22/25 06/22/25 05:15 History acetaminophen 650 mg rectal 650 mg NE Q4H PRN fever or pain 06/22/25 Unknown History suppository (Pain Reliever (acetaminophen)) aluminum-magnesium hydroxide 200 30 ml PO Q4H PRN GI distress 06/22/25 Unknown History mg-200 mg/5 mL oral suspension cholecalciferol (vitamin D3) 50 50 mcg PO QPM vitamin d deficiency 06/22/25 06/21/25 12:20 History mcg (2,000 unit) capsule clobetasol 0.05 % shampoo 1 applic topical SUTU scalp 06/22/25 06/20/25 10:25 History psoriosis clobetasol 0.05 % shampoo 1 applic topical TH 06/22/25 06/17/25 History magnesium hydroxide 400 mg/5 mL 30 ml PO DAILY PRN constipation 06/22/25 Unknown History oral suspension (Milk of Magnesia) melatonin 10 mg tablet 10 mg PO QHS insomnia 06/22/25 06/21/25 21:10 History trazodone 50 mg tablet 25 mg PO QHS insomnia 06/22/25 06/21/25 21:10 History vitamin B complex-vitamin C-folic 1 tab PO DAILY end stage renal 06/22/25 06/21/25 16:25 History acid 0.8 mg tablet (Renal-Morales) disease Allergy/AdvReac Type Severity Reaction Status Date / Time No Known Allergies Allergy Verified 06/22/25 09:06 Family History Mother Hypertension Diabetes Father Hypertension Diabetes Surgical History History of kidney transplant S/P unilateral above knee amputation S/P foot surgery S/P colostomy Social History housing: [facility] Smoking Status: Never smoker alcohol intake: never substance use type: does not use ROS ROS ED ROS Narrative Unable to obtain due to the patient's illness and mental status. Review of Systems ROS Unobtainable: due to encephalopathy and due to mental status Constitutional Constitutional ED: Reports fever(s) EXAM Physical Exam Narrative Exam Narrative: 39-year-old male sitting upright in bed vital signs show fever 102.9 axillary. Blood pressure is 144 107. Pulse ox is 95% on 5 L. He will open his eyes he really did not follow commands. He is not answering any questions. H EENT exam pupils are round reactive to light. He does not follow my finger to evaluate extraocular motions. He will open his mouth. He has dry mucous membranes. There is no signs of trauma to his face or scalp. Neck nontender no lymphadenopathy. No meningismus. Lungs clear to auscultation bilaterally. Heart rate about 100 no murmur. Chest wall ribs nontender. Abdomen soft, nontender, nondistended, normal bowel sounds without peritoneal signs. He has a colostomy bag with stool and gas in it. He has a suprapubic catheter. There is purple urine in the bag. Extremities he has a left below the knee amputation. He is not really moving his extremities. Neurologically he will open his eyes he will not follow any commands. Currently he is not answering any questions. Const Vital Signs: 06/22/25 09:01 06/22/25 09:39 06/22/25 09:53 Temperature 102.9 F H Temperature Source Axillary Pulse Rate 99 99 Respiratory Rate 17 16 Blood Pressure 144/107 H 72/36 L Blood Pressure Mean 119 48 Pulse Ox 95 99 Oxygen Delivery Method Nasal Cannula Nasal Cannula Oxygen Flow Rate (L/min) 5 5 06/22/25 09:54 06/22/25 10:25 Temperature 102.8 F H Temperature Source Oral Pulse Rate 97 Respiratory Rate 23 H Blood Pressure 68/35 L 77/27 L Blood Pressure Mean 46 43 Pulse Ox 98 Oxygen Delivery Method Nasal Cannula Oxygen Flow Rate (L/min) 5 MDM MDM MDM Narrative Medical decision making narrative: 39-year-old male chronically ill with a fever and change in mental status. Sepsis protocol. He will be started on IV antibiotics. He will eventually need to be admitted to the hospital. Currently he is not a candidate if he would need a lumbar puncture because of him being on the blood thinner. I did speak to a nurse at his [facility] facility. He basically developed a fever today and decreased mental status. Yesterday she felt like he was in his normal state of health. They did give him Tylenol earlier this morning. His fever persisted. Patient became hypotensive. He is given a liter of fluid wide open. He does have 2 large-bore IVs to 1 is a midline catheter we will start him on Levophed with his systolic pressure being 50. Repeat exam around 10:18 AM we are watching blood pressure very closely see how he responds to a liter of fluid. If need be will start him on pressors. However I spoken to the hospitalist will be down admit the patient in the ICU. Patient is being given IV fluids. Currently were at nearly 2 L. Will watch his blood pressure closely. Due to his end-stage renal disease and dialysis and he already has signs of some pulmonary edema and he will not be at the fluids per kilo that we normally would for sepsis patient. His pressure is responding to the IV fluids and currently is 85/46. History & Record Review Discussion w/independent historian: EMS personnel, Patient and Other (Extended-care facility) Lab Data Attestation: I reviewed the patient's lab results. Lab results narrative: CBC shows white count 12.4 H&H 10.1 and 31.3 consistent with his chronic anemia. Platelets 173. PT/INR of 17 and 1.4. PTT 35. Lactic acid is 2.7. Electrolytes show a gap of 14. BUN and creatinine of 54 and 8.0 he is a known dialysis patient. Liver enzymes show an AST of 50. Alk phos of 245. Chest x-ray cardiomegaly with mild venous congestion consistent with CHF. ABG shows a pH of 7.42. pCO2 44. pO2 73 with a bicarb of 29. Labs: Laboratory Results - last 24 hr 06/22/25 09:25 WBC 12.4 H RBC 3.19 L Hgb 10.1 L Hct 31.3 L MCV 98.1 H MCH 31.7 MCHC 32.3 RDW Std Deviation 50.0 H RDW Coeff of Shanta 13.9 Plt Count 173 MPV 10.6 Immature Gran % (Auto) 1.700 H Neut % (Auto) 82.9 H Lymph % (Auto) 4.8 L [place] % (Auto) 8.9 Eos % (Auto) 1.5 Baso % (Auto) 0.2 Absolute Neuts (auto) 10.3 H Absolute Lymphs (auto) 0.59 L Nucleated RBC % 0 PT 17.0 H INR 1.4 APTT 35.1 Sodium 138 Potassium 4.4 Chloride 95 L Carbon Dioxide 28.4 Anion Gap 14 BUN 54 H Creatinine 8.00 H* Estim Creat Clear Calc 18.27 L Est GFR (MDRD) Non-Af 8 L BUN/Creatinine Ratio 6.7 L Glucose 79 Lactic Acid 2.7 H* Calcium 8.8 Total Bilirubin 0.75 AST 50 H ALT 35 Alkaline Phosphatase 245 H Total Protein 8.4 Albumin 3.4 L Globulin 5.0 H Albumin/Globulin Ratio 0.7 L Radiography Chest X-Ray - ED: 1 View, Read by ED Physician, Read by Radiologist, Mediastinum, Bony Structures, Chronic Changes, Cardiomegaly and CHF Diagnostic Testing: Clinical Impression(s) from Imaging Studies Chest X-Ray 06/22/25 09:10 IMPRESSION: Cardiomegaly. Vascular congestion and mild CHF with right basilar atelectasis. Reading Location: [id number] Chest x-ray, portable, 2 films 1 view interpreted by myself and radiologist shows cardiomegaly. Venous congestion. Pulmonary edema. No pneumonia. No large effusions. Rhythm Strip Rhythm Strip: Sinus Rhythm Rate: 100 Ectopy: None EKG Initial EKG: Attestation: I personally reviewed and interpreted this EKG as follows: Interpretation: Sinus Rhythm and No Acute Injury Pattern Comments: Normal sinus rhythm rate of 100 no acute signs of CA, ischemia or dysrhythmia. Critical Care Time Critical Care Time: Yes Critical care time (excluding procedures): 30-74 minutes, Including time spent:, Discussing w/Patient &/or Family/Curriculum Assistant Principal, Discussing w/Consultants, Arranging Admission or Transfer, Performing Direct Patient Care at Bedside and - (38 minutes) Discharge Plan Dx/Rx/DC Orders Clinical Impression: Altered level of consciousness, Fever, History of diabetes mellitus, Septic shock, Acute hypotension, Chronic anticoagulation Disposition Disposition: Acute Care [facility]
[2025-06-22] MEDS: Piperacil/Tazobactam 4.5 GM in 0.9% Normal Saline (100mL MB+) 100 ML IV (09:34)
[2025-06-22] MEDS: 0.9% Normal Saline (500mL Bag) 500 ML 999 ML IV (09:35)
[2025-06-22] MEDS: 0.9% Normal Saline (1000mL) 1,000 ML 999 ML IV ×2 (09:47→10:55)
[2025-06-22 09:50] LABS: Hematocrit 31.3 % (40-54); Hemoglobin 10.1 g/dL (13.0-16.5); Immature Granulocytes Count 0.210 X10^3/uL (0.0-0.0); Mean Corp Hgb Conc 32.3 g/dL (32-36); Mean Corpuscular Volume 98.1 fL (80-94); Mean Platelet Vol. 10.6 fl (6.2-12.0); NRBC Flagged by Analyzer 0 % (0-5); POSITIVE DIFFERENTIAL YES; Platelet Count 173 K/mm3 (150-450); RBC Distribution Width CV 13.9 % (11.6-14.6); RBC Distribution Width SD 50.0 fl (35.1-43.9); Red Blood Count 3.19 M/mm3 (4.6-6.2); White Blood Count 12.4 K/mm3 (4.4-11.0)
[2025-06-22 09:56] LABS: Prothrombin Time (Protime)PT. 17.0 SECONDS (11.7-14.9)
[2025-06-22 09:57] LABS: Partial Thromboplast Time 35.1 Seconds (24.1-36.2)
--- NOTE | 2025-06-22 09:58 | NURSING ---
1L saline infusing wide open for hypotension, per Dr. Foss
[2025-06-22 10:10] LABS: AST(SGOT) 50 U/L (<=37); Alanine Aminotransfer ALT/SGPT 35 U/L (<=46); Albumin, Serum 3.4 g/dL (3.5-5.0); Alkaline Phosphatase 245 U/L (40-129); Anion Gap 14 (5-15); BUN 54 mg/dL (4-19); BUN/Creat Ratio 6.7 RATIO (10-20); Calcium,Total 8.8 mg/dL (7.6-11.0); Carbon Dioxide 28.4 mmol/L (21.0-32.0); Chloride 95 mmol/L (98-108); Estimated Creatinine Clearance 18.27 ml/min (50-250); Globulin 5.0 g/dL (2.2-4.2); Glucose 79 mg/dL (70-99); Potassium 4.4 mmol/L (3.3-5.1)
[2025-06-22] MEDS: Cefepime HCl 2 GM in 0.9% Normal Saline (100mL MB+) 100 ML IV (10:54)
[2025-06-22 10:57] LABS: Allen Test Positive; Base Excess 5 mmol/L (-2 to +2); FI02 5.0; PO2 74 mmHG (75-100); SITE R Radial; SO2 95 % (94-98)
--- NOTE | 2025-06-22 10:57 | NURSING ---
dr pza notified that per sepsis protocol, pt to receive 4L fluid resusc-- pt will not be getting d/t esrd- md will document
--- NOTE | 2025-06-22 11:03 | HP.PCM.HOS_ITS ---
HPI - General General Date of Admission: 06/22/25 Date of Service: 06/22/25 Chief Complaint: Altered mental status HPI Narrative CHINA GUILLEN, is a 39 M with multiple comorbidities including end-stage renal disease on hemodialysis, recurrent PE and DVT, legal blindness, left below-knee amputation currently residing at [facility] who was brought to the emergency department with decreased level of sensorium. Patient was also reported to be febrile with temperature of 102.8 around 5 AM on the morning of his admission. Patient reportedly had dialysis the day prior without much event. In the emergency department patient was found to be hypotensive with leukocytosis. And assessment sepsis of an unspecified source made. Patient started on broad-spectrum antibiotic therapy admitted to the intensive care unit for subsequent manage [facility] Medical History History of ESBL E. 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 Acute hyperkalemia Acute alteration in mental status Phantom limb syndrome with pain Paraplegia Metabolic encephalopathy ESRD (end stage renal disease) on dialysis Hx of pulmonary embolus Type 2 diabetes mellitus End-stage renal disease on hemodialysis Anticoagulant long-term use History of deep vein thrombosis Anemia in chronic kidney disease, on chronic dialysis Acute postoperative pain USP (current) use of 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 H/O deep venous thrombosis Osteomyelitis of pelvic region Lives in halfway Anxiety Open wound Insulin dependent diabetes mellitus Uses wheelchair Injury of back 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 disease 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, stage 4 Neurogenic bowel Kidney transplant failure Dependence on renal dialysis Pressure ulcer of left heel, unspecified stage Gastro-esophageal reflux disease without esophagitis Other pericardial effusion (noninflammatory) Other pulmonary embolism without acute cor pulmonale Hypertensive heart and chronic kidney disease with heart failure and stage 1 through stage 4 chronic kidney disease, or unspecified chronic kidney disease Depression Hyperlipemia Hypothyroidism Anemia in chronic kidney disease Neuromuscular dysfunction of bladder, unspecified Paraplegia, incomplete Other acute osteomyelitis, left ankle and foot Home Medications ?Medication ?Instructions ?Recorded ?Last Taken ?Type dextrose 40 % oral gel (Glucose 15 g PO Q15M PRN HYPGL YCEMIA 01/02/23 Unknown History Gel) sennosides 8.6 mg-docusate sodium 1 tab-cap PO BID CON STIPATION 01/02/23 06/22/25 History 50 mg capsule (Senna Plus) tacrolimus 1 mg capsule, 2 mg PO BID kidney transplan t 01/02/23 06/22/25 05:15 History immediate-release (Prograf) failure sevelamer HCl 800 mg tablet 2,400 mg PO TID ESRD 04/2106/22/25 05:15 History insulin lispro 100 unit/mL 1 sliding scale dose subcut TIDCM 03/22/24 06/21/25 16:20 History subcutaneous pen type 2 diabetes guaifenesin 100 mg/5 mL oral 200 mg PO Q4H PRN COUGH/C ONGESTION 03/29/24 06/19/25 10:20 History liquid (Adult Tussin Chest Congestion) glucagon HCl 1 mg solution for 1 mg IM Q20M PRN HYPOGL YCEMIA 04/13/24 Unknown History injection (Glucagon (HCl) Emergency Kit) hydralazine 50 mg tablet 50 mg PO 4X/DAY BLOOD PRESSU RE 04/13/24 06/22/25 05:15 History sodium phosphates 19 gram-7 118 ml NE BID PRN constipa tion 04/22/24 Unknown History gram/118 mL enema (Fleet Enema) insulin glargine 100 unit/mL (3 12 unit subcut QPM DM 06/27/24 06/21/25 History mL) subcutaneous pen (Lantus Solostar U-100 Insulin) insulin lispro 100 unit/mL 5 unit subcut TID DM 06/22/25 05:15 History subcutaneous solution apixaban 2.5 mg tablet (Eliquis) 2.5 mg PO BID KIDNEY DISEASE WITH 11/09/24 06/22/25 05:15 History HEART FAILURE duloxetine 30 mg capsule,delayed 60 mg PO QHS major de pressive 11/09/24 06/21/25 21:10 History release disorder gabapentin 300 mg capsule 300 mg PO BID neuropathy 11/2906/22/25 05:15 History clonidine HCl 0.2 mg tablet 0.2 mg PO BID hypertensive heart 02/19/25 06/21/25 21:10 History and chronic kidney disease atorvastatin 40 mg tablet 40 mg PO DAILY hyperlipidemi a 03/01/25 06/21/25 21:10 History calcitriol 0.5 mcg capsule 0.5 mcg PO MOWEFR esrd rece ived 03/01/25 06/21/25 05:10 History from dialysis carvedilol 25 mg tablet 50 mg PO BID heart failure a nd 03/01/25 06/22/25 05:15 History chronic kidney disease ivermectin 1 % topical cream 1 applic topical QHS for skin 03/01/25 06/21/25 21:10 History irritation levothyroxine 150 mcg tablet 150 mcg PO DAILY hypothyr oidism 03/01/25 06/22/25 05:15 History melatonin 3 mg capsule 9 mg PO QHS 03/01/25 Unknown History metronidazole 1 % topical gel 1 applic topical DAILY P RN skin 03/01/25 Unknown History
--- NOTE | 2025-06-22 11:03 | PCM.HP.STD ---
HPI - General General Date of Admission: 06/22/25 Date of Service: 06/22/25 Chief Complaint: Altered mental status HPI Narrative CHINA GUILLEN, is a 39 M with multiple comorbidities including end-stage renal disease on hemodialysis, recurrent PE and DVT, legal blindness, left below-knee amputation currently residing at [facility] who was brought to the emergency department with decreased level of sensorium. Patient was also reported to be febrile with temperature of 102.8 around 5 AM on the morning of his admission. Patient reportedly had dialysis the day prior without much event. In the emergency department patient was found to be hypotensive with leukocytosis. And assessment sepsis of an unspecified source made. Patient started on broad-spectrum antibiotic therapy admitted to the intensive care unit for subsequent manage [facility] Medical History History of ESBL E. coli infection Anemia of chronic illness History of diabetes mellitus Anemia of chronic disease History of diabetes mellitus 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 disease Decubitus ulcer of ischial area Left patella fracture Chronic pain Chronic indwelling Hurst catheter Dialysis patient Kidney disease CPAP (continuous positive airway pressure) dependence Sleep apnea Hypertension Blind Encephalopathy Hyponatremia Hypertensive urgency Acute delirium Decubitus ulcer Abscess Left ischial pressure sore Open wound of left buttock with complication Current use of mcc anticoagulation Acute hyperkalemia Acute alteration in mental status Phantom limb syndrome with pain Paraplegia Metabolic encephalopathy ESRD (end stage renal disease) on dialysis Hx of pulmonary embolus Type 2 diabetes mellitus End-stage renal disease on hemodialysis Anticoagulant long-term use History of deep vein thrombosis Anemia in chronic kidney disease, on chronic dialysis Acute postoperative pain salvage determiner (current) use of 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 H/O deep venous thrombosis Osteomyelitis of pelvic region Lives in fpc Anxiety Open wound Insulin dependent diabetes mellitus Uses wheelchair Injury of back 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 disease 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, stage 4 Neurogenic bowel Kidney transplant failure Dependence on renal dialysis Pressure ulcer of left heel, unspecified stage Gastro-esophageal reflux disease without esophagitis Other pericardial effusion (noninflammatory) Other pulmonary embolism without acute cor pulmonale Hypertensive heart and chronic kidney disease with heart failure and stage 1 through stage 4 chronic kidney disease, or unspecified chronic kidney disease Depression Hyperlipemia Hypothyroidism Anemia in chronic kidney disease Neuromuscular dysfunction of bladder, unspecified Paraplegia, incomplete Other acute osteomyelitis, left ankle and foot Home Medications ?Medication ?Instructions ?Recorded ?Last Taken ?Type dextrose 40 % oral gel (Glucose 15 g PO Q15M PRN HYPGLYCEMIA 01/02/23 Unknown History Gel) sennosides 8.6 mg-docusate sodium 1 tab-cap PO BID CONSTIPATION 01/02/23 06/22/25 History 50 mg capsule (Senna Plus) tacrolimus 1 mg capsule, 2 mg PO BID kidney transplant 01/02/23 06/22/25 05:15 History immediate-release (Prograf) failure sevelamer HCl 800 mg tablet 2,400 mg PO TID ESRD 04/21/23 06/22/25 05:15 History insulin lispro 100 unit/mL 1 sliding scale dose subcut TIDCM 03/22/24 06/21/25 16:20 History subcutaneous pen type 2 diabetes guaifenesin 100 mg/5 mL oral 200 mg PO Q4H PRN COUGH/CONGESTION 03/29/24 06/19/25 10:20 History liquid (Adult Tussin Chest Congestion) glucagon HCl 1 mg solution for 1 mg IM Q20M PRN HYPOGLYCEMIA 04/13/24 Unknown History injection (Glucagon (HCl) Emergency Kit) hydralazine 50 mg tablet 50 mg PO 4X/DAY BLOOD PRESSURE 04/13/24 06/22/25 05:15 History sodium phosphates 19 gram-7 118 ml [place] BID PRN constipation 04/22/24 Unknown History gram/118 mL enema (Fleet Enema) insulin glargine 100 unit/mL (3 12 unit subcut QPM DM 06/27/24 06/21/25 History mL) subcutaneous pen (Lantus Solostar U-100 Insulin) insulin lispro 100 unit/mL 5 unit subcut TID DM 06/27/24 06/22/25 05:15 History subcutaneous solution apixaban 2.5 mg tablet (Eliquis) 2.5 mg PO BID KIDNEY DISEASE WITH 11/09/24 06/22/25 05:15 History HEART FAILURE duloxetine 30 mg capsule,delayed 60 mg PO QHS major depressive 11/09/24 06/21/25 21:10 History release disorder gabapentin 300 mg capsule 300 mg PO BID neuropathy 11/09/24 06/22/25 05:15 History clonidine HCl 0.2 mg tablet 0.2 mg PO BID hypertensive heart 02/19/25 06/21/25 21:10 History and chronic kidney disease atorvastatin 40 mg tablet 40 mg PO DAILY hyperlipidemia 03/01/25 06/21/25 21:10 History calcitriol 0.5 mcg capsule 0.5 mcg PO MOWEFR esrd received 03/01/25 06/21/25 05:10 History from dialysis carvedilol 25 mg tablet 50 mg PO BID heart failure and 03/01/25 06/22/25 05:15 History chronic kidney disease ivermectin 1 % topical cream 1 applic topical QHS for skin 03/01/25 06/21/25 21:10 History irritation levothyroxine 150 mcg tablet 150 mcg PO DAILY hypothyroidism 03/01/25 06/22/25 05:15 History melatonin 3 mg capsule 9 mg PO QHS 03/01/25 Unknown History metronidazole 1 % topical gel 1 applic topical DAILY PRN skin 03/01/25 Unknown History irritation midodrine 10 mg tablet 10 mg PO DAILY PRN hypotension 03/01/25 Unknown History ondansetron HCl 4 mg tablet 4 mg PO Q8H PRN PRN nausea and 03/01/25 06/15/25 12:20 History vomiting pantoprazole 40 mg tablet,delayed 40 mg PO DAILY gerd w/o esophagitis 03/01/25 06/22/25 05:15 History release ertapenem 1 gram solution for 0.5 g IV DAILY 2 doses 03/03/25 Unknown Rx injection acetaminophen 325 mg tablet 650 mg PO Q4H PRN fever or pain 06/22/25 06/22/25 05:15 History acetaminophen 650 mg rectal 650 mg AZ Q4H PRN fever or pain 06/22/25 Unknown History suppository (Pain Reliever (acetaminophen)) aluminum-magnesium hydroxide 200 30 ml PO Q4H PRN GI distress 06/22/25 Unknown History mg-200 mg/5 mL oral suspension cholecalciferol (vitamin D3) 50 50 mcg PO QPM vitamin d deficiency 06/22/25 06/21/25 12:20 History mcg (2,000 unit) capsule clobetasol 0.05 % shampoo 1 applic topical SUTU scalp 06/22/25 06/20/25 10:25 History psoriosis clobetasol 0.05 % shampoo 1 applic topical TH 06/22/25 06/17/25 History magnesium hydroxide 400 mg/5 mL 30 ml PO DAILY PRN constipation 06/22/25 Unknown History oral suspension (Milk of Magnesia) melatonin 10 mg tablet 10 mg PO QHS insomnia 06/22/25 06/21/25 21:10 History trazodone 50 mg tablet 25 mg PO QHS insomnia 06/22/25 06/21/25 21:10 History vitamin B complex-vitamin C-folic 1 tab PO DAILY end stage renal 06/22/25 06/21/25 16:25 History acid 0.8 mg tablet (Renal-Morales) disease Allergy/AdvReac Type Severity Reaction Status Date / Time No Known Allergies Allergy Verified 06/22/25 09:06 Family History Mother Hypertension Diabetes Father Hypertension Diabetes Surgical History History of kidney transplant S/P unilateral above knee amputation S/P foot surgery S/P colostomy Social History housing: fpc Smoking Status: Never smoker alcohol intake: never substance use type: does not use ROS ROS Narrative Unable to obtain given patient decreased level of sensorium Vital Signs Vital Signs Vital Signs: 06/22/25 09:01 06/22/25 09:39 06/22/25 09:53 Temperature 102.9 F H Temperature Source Axillary Pulse Rate 99 99 Respiratory Rate 17 16 Blood Pressure 144/107 H 72/36 L Blood Pressure Mean 119 48 Pulse Ox 95 99 Oxygen Delivery Method Nasal Cannula Nasal Cannula Oxygen Flow Rate (L/min) 5 5 06/22/25 09:54 06/22/25 10:25 06/22/25 10:40 Temperature 102.8 F H Temperature Source Oral Pulse Rate 97 97 Respiratory Rate 23 H 25 H Blood Pressure 68/35 L 77/27 L 85/46 L Blood Pressure Mean 46 43 59 Pulse Ox 98 99 Oxygen Delivery Method Nasal Cannula Nasal Cannula Oxygen Flow Rate (L/min) 5 5 06/22/25 10:59 Temperature 99.6 F H Temperature Source Pulse Rate 98 Respiratory Rate 23 H Blood Pressure 87/56 L Blood Pressure Mean 66 Pulse Ox 100 Oxygen Delivery Method Oxygen Flow Rate (L/min) Weight Weight: 135.6 kg Body Mass Index (BMI) 39.4 Physical Exam Narrative GENERAL: Somnolent HEENT: Atraumatic; normocephalic EYES; Anicteric, Normal Conjunctiva NECK; supple, normal thyroid, RESPIRATORY: Diminished to auscultation CARDIOVASCULAR: Regular S1 S2, GI: soft, normoactive bowel sounds, : No Renal angle tenderness; EXTREMITIES: No edema, no clubbing, MUSCULOSKELETAL: Left BKA NEURO: Somnolent but moving all extremities SKIN: No rash PSYCH; somnolent Results Lab / Micro Data 06/22/25 09:25 06/22/25 09:25 Labs: Laboratory Results - last 24 hr 06/22/25 09:25: WBC 12.4 H, RBC 3.19 L, Hgb 10.1 L, Hct 31.3 L, MCV 98.1 H, MCH 31.7, MCHC 32.3, RDW Std Deviation 50.0 H, RDW Coeff of Shanta 13.9, Plt Count 173, MPV 10.6, Immature Gran % (Auto) 1.700 H, Neut % (Auto) 82.9 H, Lymph % (Auto) 4.8 L, [place] % (Auto) 8.9, Eos % (Auto) 1.5, Baso % (Auto) 0.2, Absolute Neuts (auto) 10.3 H, Absolute Lymphs (auto) 0.59 L, Nucleated RBC % 0, PT 17.0 H, INR 1.4, APTT 35.1, Sodium 138, Potassium 4.4, Chloride 95 L, Carbon Dioxide 28.4, Anion Gap 14, BUN 54 H, Creatinine 8.00 H*, Estim Creat Clear Calc 18.27 L, Est GFR (MDRD) Non-Af 8 L, BUN/Creatinine Ratio 6.7 L, Glucose 79, Lactic Acid 2.7 H*, Calcium 8.8, Total Bilirubin 0.75, AST 50 H, ALT 35, Alkaline Phosphatase 245 H, Total Protein 8.4, Albumin 3.4 L, Globulin 5.0 H, Albumin/Globulin Ratio 0.7 L Micro: Microbiology 06/22/25 09:25 Mucosa - Nose SARS-CoV-2, Influenza & RSV (PCR) - Final ABG Data ABG results: ABG 06/22/25 10:51 Specimen Type ART Sample Site R Radial pH 7.43 Bicarbonate Actual 29.4 H Total CO2 31 Base Excess 5 H O2 Saturation 95 O2 % 5.0 ABG pCO2 44.6 ABG pO2 74 L Nick Test Positive O2 Delivery Device Cannula Vent Mode Not entered Rhythm Strip Rhythm Strip: Sinus Rhythm Rate: 100 Ectopy: None Imaging Radiology Impression Chest X-Ray 06/22/25 09:10 IMPRESSION: Cardiomegaly. Vascular congestion and mild CHF with right basilar atelectasis. Reading Location: [id number] Assessment & Plan Assessment/Plan (1) Septic shock: PLAN: Plan Patient is a 39-year-old gentleman with multiple comorbidities including end-stage renal disease, recurrent PE and DVTs resident at an [facility] who presented with decreased level of sensorium with fever 1. Acute metabolic encephalopathy ? Secondary to sepsis of unspecified source. Patient has been admitted to the intensive care unit for subsequent management of suspected underlying etiology 2. Sepsis/Septic Shock ? Patient was found to have leukocytosis, hypotensive, fever with evidence of endorgan dysfunction?lactic acidosis as well as decreased level of sensorium. Cultures including viral respiratory panel and COVID assay sent. Patient was started on broad-spectrum antibiotic therapy with cefepime and vancomycin.. Patient has history of ESBL E: Coli cystitis. Urine cultures were therefore sent 3. End-stage renal disease ? Patient has history of failed renal transplant. Currently on hemodialysis on Tuesdays and Saturdays consult placed to nephrology for dialysis orders 4. Anemia ? Secondary to anemia of end-stage renal disease monitoring H&H with plans to transfuse or if patient is deemed to be symptomatic 5. Dyslipidemia -Patient is on statin therapy, continued at home dose 6. Hypothyroidism - Patient is on levothyroxine home dose continued 7. Hypertension - Blood pressure controlled, home medications continued with dose adjustment as needed 8. Class III obesity with BMI of 44 ? Complicating care weight loss advised 9. Diabetes mellitus type II -patient's oral hypoglycemics held. Placed on long acting insulin, Accu-Cheks a.c. and at bedtime and covered with sliding scale insulin 10. GERD ? On PPI 11. Depression with anxiety ? Patient is on duloxetine as well as trazodone currently being held given his decreased level of sensorium 12 history of left BKA ? Supportive care 13. History of previous VTE ? Patient is on apixaban did continue 14. Chronic sacral decubitus ? Consult placed wound care nurse for dressing change 15. Paroxysmal atrial fibrillation ? Rate controlled on carvedilol and is on systemic anticoagulation with apixaban 16. DVT prophylaxis ? Patient is already on systemic anticoagulation Sepsis Attestation Sepsis Attestation: Agree w/Sepsis Date exam was performed: 06/22/25 Time exam was performed: 11:00 Possible Source of Sepsis: Unknown Sepsis Organ Dysfunction Criteria Present: SBP < 90 mmHg or MAP < 65 mmHg, Lactic Acid > 2 mmol/L and New/Unexplained change in mental status Fluid Resuscitation Fluid Resuscitation ordered: Lesser volume fluid bolus ordered Amount of fluid ordered: 1,000 Reason for lesser fluid bolus:: Renal Failure Sepsis Note Date exam was performed: 06/22/25 Time exam was performed: 14:21 Sepsis Attestation: Sepsis re-evaluation was performed Response to fluids: Non Fluid responsive hypotension and Vasopressors started Charges/Coding Visit Charges Inpatient E&M: 85950 Init Hosp L3
--- NOTE | 2025-06-22 11:30 | NURSING ---
in ICU 5 per cart from ER, RADIO REPAIRER in attendance
--- NOTE | 2025-06-22 12:14 | NURSING ---
1200 midline IV found folded over multiple times with sm lump forming upper inner arm. 1210 Dr. Palomo present in pt room after being notified per text bp 60/32, accucheck 65 and diaphoretic with no IV access despite multiple attempts by multiple RNs. he is aware pt has no IV access. 1215 Orders for PICC line received. Dynamic notified.
--- NOTE | 2025-06-22 12:41 | PCM.RX.CS ---
Consult Antibiotic Management Pharmacy has been consulted to manage selected antibiotic: Vancomycin Type of Intervention Type of Consult: New start Suspected Infection Suspected Infection: Sepsis Prior Doses of Antibiotics Prior Doses of Antibiotics Received/Current Regimen: Vancomycin 2000 mg IV x1 loading dose ordered Labs Labs: Sodium 138 mmol/L (133-145) 06/22/25 09:25 Potassium 4.4 mmol/L (3.3-5.1) 06/22/25 09:25 Chloride 95 mmol/L (98-108) L 06/22/25 09:25 Carbon Dioxide 28.4 mmol/L (21.0-32.0) 06/22/25 09:25 Anion Gap 14 (5-15) 06/22/25 09:25 BUN 54 mg/dL (4-19) H 06/22/25 09:25 Creatinine 8.00 mg/dL (0.70-1.20) H* 06/22/25 09:25 Est GFR (MDRD) Non-Af 8 (>60) L 06/22/25 09:25 BUN/Creatinine Ratio 6.7 RATIO (10-20) L 06/22/25 09:25 Glucose 79 mg/dL (70-99) 06/22/25 09:25 Microbiology Microbiology: Microbiology 06/22/25 09:25 Mucosa - Nose SARS-CoV-2, Influenza & RSV (PCR) - Final Dosing Weight Weight used for dosin kg Estimated Creatinine Clearance Estimated Creatinine Clearance: ESRD on HD Goal Trough Goal Trough: 15-20 mcg/mL Pharmacy Plan for Drug Dosing Pharmacy Plan for Drug Dosing: Vancomycin 2000 mg IV x 1, follow patient for HD schedule while admitted (TuThSa at facility), plan for 1000 mg IV x 1 after next HD session, and a random level prior to the subsequent HD session. Pharmacy Service will continue to monitor and adjust dosing as required. Date/Time Labs Ordered Labs to be done on [date and time ordered]: pending HD schedule
--- NOTE | 2025-06-22 13:30 | PCMCONS.TICU ---
HPI Consult Data Date of Consult: 06/22/25 HPI Narrative HPI Narrative: CHINA GUILLEN, is a 39 M who presents [ ] [facility] Medical History History of ESBL E. 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 Acute hyperkalemia Acute alteration in mental status Phantom limb syndrome with pain Paraplegia Metabolic encephalopathy ESRD (end stage renal disease) on dialysis Hx of pulmonary embolus Type 2 diabetes mellitus End-stage renal disease on hemodialysis Anticoagulant long-term use History of deep vein thrombosis Anemia in chronic kidney disease, on chronic dialysis Acute postoperative pain long term care social worker (current) use of 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 H/O deep venous thrombosis Osteomyelitis of pelvic region Lives in half-way Anxiety Open wound Insulin dependent diabetes mellitus Uses wheelchair Injury of back 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 disease 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, stage 4 Neurogenic bowel Kidney transplant failure Dependence on renal dialysis Pressure ulcer of left heel, unspecified stage Gastro-esophageal reflux disease without esophagitis Other pericardial effusion (noninflammatory) Other pulmonary embolism without acute cor pulmonale Hypertensive heart and chronic kidney disease with heart failure and stage 1 through stage 4 chronic kidney disease, or unspecified chronic kidney disease Depression Hyperlipemia Hypothyroidism Anemia in chronic kidney disease Neuromuscular dysfunction of bladder, unspecified Paraplegia, incomplete Other acute osteomyelitis, left ankle and foot Home Medications ?Medication ?Instructions ?Recorded ?Last Taken ?Type dextrose 40 % oral gel (Glucose 15 g PO Q15M PRN HYPGLYCEMIA 01/02/23 Unknown History Gel) sennosides 8.6 mg-docusate sodium 1 tab-cap PO BID CONSTIPATION 01/02/23 06/22/25 History 50 mg capsule (Senna Plus) tacrolimus 1 mg capsule, 2 mg PO BID kidney transplant 01/02/23 06/22/25 05:15 History immediate-release (Prograf) failure sevelamer HCl 800 mg tablet 2,400 mg PO TID ESRD 04/21/23 06/22/25 05:15 History insulin lispro 100 unit/mL 1 sliding scale dose subcut TIDCM 03/22/24 06/21/25 16:20 History subcutaneous pen type 2 diabetes guaifenesin 100 mg/5 mL oral 200 mg PO Q4H PRN COUGH/CONGESTION 03/29/24 06/19/25 10:20 History liquid (Adult Tussin Chest Congestion) glucagon HCl 1 mg solution for 1 mg IM Q20M PRN HYPOGLYCEMIA 04/13/24 Unknown History injection (Glucagon (HCl) Emergency Kit) hydralazine 50 mg tablet 50 mg PO 4X/DAY BLOOD PRESSURE 04/13/24 06/22/25 05:15 History sodium phosphates 19 gram-7 118 ml MN BID PRN constipation 04/22/24 Unknown History gram/118 mL enema (Fleet Enema) insulin glargine 100 unit/mL (3 12 unit subcut QPM DM 06/27/24 06/21/25 History mL) subcutaneous pen (Lantus Solostar U-100 Insulin) insulin lispro 100 unit/mL 5 unit subcut TID DM 06/27/24 06/22/25 05:15 History subcutaneous solution apixaban 2.5 mg tablet (Eliquis) 2.5 mg PO BID KIDNEY DISEASE WITH 11/09/24 06/22/25 05:15 History HEART FAILURE duloxetine 30 mg capsule,delayed 60 mg PO QHS major depressive 11/09/24 06/21/25 21:10 History release disorder gabapentin 300 mg capsule 300 mg PO BID neuropathy 11/09/24 06/22/25 05:15 History clonidine HCl 0.2 mg tablet 0.2 mg PO BID hypertensive heart 02/19/25 06/21/25 21:10 History and chronic kidney disease atorvastatin 40 mg tablet 40 mg PO DAILY hyperlipidemia 03/01/25 06/21/25 21:10 History calcitriol 0.5 mcg capsule 0.5 mcg PO MOWEFR esrd received 03/01/25 06/21/25 05:10 History from dialysis carvedilol 25 mg tablet 50 mg PO BID heart failure and 03/01/25 06/22/25 05:15 History chronic kidney disease ivermectin 1 % topical cream 1 applic topical QHS for skin 03/01/25 06/21/25 21:10 History irritation levothyroxine 150 mcg tablet 150 mcg PO DAILY hypothyroidism 03/01/25 06/22/25 05:15 History melatonin 3 mg capsule 9 mg PO QHS 03/01/25 Unknown History metronidazole 1 % topical gel 1 applic topical DAILY PRN skin 03/01/25 Unknown History irritation midodrine 10 mg tablet 10 mg PO DAILY PRN hypotension 03/01/25 Unknown History ondansetron HCl 4 mg tablet 4 mg PO Q8H PRN PRN nausea and 03/01/25 06/15/25 12:20 History vomiting pantoprazole 40 mg tablet,delayed 40 mg PO DAILY gerd w/o esophagitis 03/01/25 06/22/25 05:15 History release ertapenem 1 gram solution for 0.5 g IV DAILY 2 doses 03/03/25 Unknown Rx injection acetaminophen 325 mg tablet 650 mg PO Q4H PRN fever or pain 06/22/25 06/22/25 05:15 History acetaminophen 650 mg rectal 650 mg MN Q4H PRN fever or pain 06/22/25 Unknown History suppository (Pain Reliever (acetaminophen)) aluminum-magnesium hydroxide 200 30 ml PO Q4H PRN GI distress 06/22/25 Unknown History mg-200 mg/5 mL oral suspension cholecalciferol (vitamin D3) 50 50 mcg PO QPM vitamin d deficiency 06/22/25 06/21/25 12:20 History mcg (2,000 unit) capsule clobetasol 0.05 % shampoo 1 applic topical SUTU scalp 06/22/25 06/20/25 10:25 History psoriosis clobetasol 0.05 % shampoo 1 applic topical TH 06/22/25 06/17/25 History magnesium hydroxide 400 mg/5 mL 30 ml PO DAILY PRN constipation 06/22/25 Unknown History oral suspension (Milk of Magnesia) melatonin 10 mg tablet 10 mg PO QHS insomnia 06/22/25 06/21/25 21:10 History trazodone 50 mg tablet 25 mg PO QHS insomnia 06/22/25 06/21/25 21:10 History vitamin B complex-vitamin C-folic 1 tab PO DAILY end stage renal 06/22/25 06/21/25 16:25 History acid 0.8 mg tablet (Renal-Morales) disease Allergy/AdvReac Type Severity Reaction Status Date / Time No Known Allergies Allergy Verified 06/22/25 09:06 Family History Mother Hypertension Diabetes Father Hypertension Diabetes Surgical History History of kidney transplant S/P unilateral above knee amputation S/P foot surgery S/P colostomy Social History housing: half-way Smoking Status: Never smoker alcohol intake: never substance use type: does not use Objective Data Objective Data Vital Signs: Vital Signs Last response Temperature 37.6 C H 06/22/25 10:59 Temperature Source Oral 06/22/25 10:25 Pulse Rate 98 06/22/25 10:59 Respiratory Rate 23 H 06/22/25 10:59 Blood Pressure 87/56 L 06/22/25 10:59 Blood Pressure Mean 66 06/22/25 10:59 Pulse Ox 100 06/22/25 10:59 Oxygen Delivery Method Nasal Cannula 06/22/25 11:42 Oxygen Flow Rate (L/min) 5 06/22/25 11:42 I&O: I&O Last 24 Hours 06/21/25 06/22/25 06/22/25 23:59 11:59 23:59 Intake Total 1600 / 1600 Balance 1600 / 1600 I&O: Total Stay 06/22/25 09:01 thru 06/22/25 10:55 Intake Total 1600 Balance 1600 Current Meds Ordered / Administered: Current meds ordered / Administered Generic Name Dose Route Start Last Admin Trade Name Freq PRN Reason Stop Dose Admin Acetaminophen 650 mg 06/22/25 12:12 Acetaminophen 325 Mg Tablet PO Q6H PRN PRN Pain 1-10 Or Fever>100.7 Al Hydrox/Mg Hydrox/Simethicone 30 ml 06/22/25 12:25 Mag /Aluminum/Simeth Wch Udc 30 Ml Oral.Susp PO Q4H PRN GI distress Apixaban 2.5 mg 06/22/25 22:00 Apixaban 2.5 Mg Tablet (Wc) PO BID TARUN Atorvastatin Calcium 40 mg 06/23/25 10:00 Atorvastatin Calcium 40 Mg Tablet PO DAILY TARUN Calcitriol 0.5 mcg 06/23/25 10:00 Calcitriol 0.25 Mcg Capsule PO MoWeFr@1000 TARUN Carvedilol 50 mg 06/22/25 22:00 Carvedilol 25 Mg Tablet PO BID [facility] Cholecalciferol 50 mcg 06/22/25 21:00 Cholecalciferol (Vit D3) 25 Mcg Tablet (1,000 Units) PO QPM [facility] Glucagon 1 mg 06/22/25 12:12 Glucagon 1 Mg/Ml Syringe IM X1 PRN HYPOGLYCEMIA Protocol Guaifenesin 10 ml 06/22/25 12:12 Guaifenesin 10 Ml Udc (200mg/10ml) PO Q4H PRN COUGH/CONGESTION Hydrocortisone Sodium Succinate 50 mg 06/22/25 18:00 Hydrocortisone Sod Succinate 100 Mg/2 Ml Vial IV Q6 [facility] Dextrose 250 mls @ 0 mls/hr 06/22/25 12:12 Dextrose 10%-Water IV .Q0M PRN HYPOGLYCEMIA Protocol As Directed Vancomycin IV-PHARMACY TO DOSE 500 mls @ 250 mls/hr 06/22/25 12:12 1 each/ Sodium Chloride IV PRN PRN Rx to Dose Protocol Vancomycin HCl 2,000 mg/ 540 mls @ 250 mls/hr 06/22/25 12:30 Sodium Chloride IV 06/22/25 14:39 X1 ONE Cefepime HCl 0.5 gm/ Sodium 55 mls @ 100 mls/hr 06/23/25 16:00 Chloride IV Q24@1600 [facility] Norepinephrine Bitartrate 8 mg 250 mls @ 9.375 mls/hr 06/22/25 13:30 / Sodium Chloride CONT INF .[id number] [facility] Protocol 5 MCG/MIN Insulin Glargine 12 unit 06/22/25 21:00 Insulin Glargine-Yfgn 100 Unit/Ml Pen SC QPM [facility] Insulin Human Lispro 5 unit 06/22/25 17:00 Insulin Lispro 100 Unit/Ml Insuln.Pen SC 0800,1200,1700 [facility] Insulin Human Lispro 0 unit 06/22/25 12:12 Insulin Lispro 100 Unit/Ml Insuln.Pen SC ACHS [facility] Protocol Levothyroxine Sodium 150 mcg 06/23/25 06:00 Levothyroxine 150 Mcg Tablet PO DAILY@0600 [facility] Midodrine 10 mg 06/22/25 12:23 Midodrine Hcl 5 Mg Tablet PO DAILY PRN hypotension Ondansetron HCl 4 mg 06/22/25 12:12 Ondansetron 4 Mg/2 Ml Vial IV Q8H PRN PRN NAUSEA/VOMITING Pantoprazole Sodium 40 mg 06/23/25 10:00 Pantoprazole Sodium 40 Mg Tablet PO DAILY [facility] Senna/Docusate Sodium 1 tablet 06/22/25 22:00 Senna/Docusate Sodium 1 Tablet PO BID [facility] Sevelamer Carbonate 2,400 mg 06/22/25 17:00 Sevelamer Carbonate 800 Mg Tablet PO TIDCM [facility] Tacrolimus 2 mg 06/22/25 22:00 Tacrolimus Anhydrous 1 Mg Capsule PO BID [facility] Lab / Micro Data 06/22/25 09:25 06/22/25 09:25 Labs: Laboratory Results - last 24 hr 06/22/25 09:25: WBC 12.4 H, RBC 3.19 L, Hgb 10.1 L, Hct 31.3 L, MCV 98.1 H, MCH 31.7, MCHC 32.3, RDW Std Deviation 50.0 H, RDW Coeff of Shanta 13.9, Plt Count 173, MPV 10.6, Immature Gran % (Auto) 1.700 H, Neut % (Auto) 82.9 H, Lymph % (Auto) 4.8 L, [place] % (Auto) 8.9, Eos % (Auto) 1.5, Baso % (Auto) 0.2, Absolute Neuts (auto) 10.3 H, Absolute Lymphs (auto) 0.59 L, Nucleated RBC % 0, PT 17.0 H, INR 1.4, APTT 35.1, Sodium 138, Potassium 4.4, Chloride 95 L, Carbon Dioxide 28.4, Anion Gap 14, BUN 54 H, Creatinine 8.00 H*, Estim Creat Clear Calc 18.27 L, Est GFR (MDRD) Non-Af 8 L, BUN/Creatinine Ratio 6.7 L, Glucose 79, Lactic Acid 2.7 H*, Calcium 8.8, Total Bilirubin 0.75, AST 50 H, ALT 35, Alkaline Phosphatase 245 H, Total Protein 8.4, Albumin 3.4 L, Globulin 5.0 H, Albumin/Globulin Ratio 0.7 L Micro: Microbiology 06/22/25 11:45 Mucosa - Nasopharyngeal Coronavirus COVID-19 PCR - Final 06/22/25 09:25 Mucosa - Nose SARS-CoV-2, Influenza & RSV (PCR) - Final ABG Data ABG results: ABG 06/22/25 10:51 Specimen Type ART Sample Site R Radial pH 7.43 Bicarbonate Actual 29.4 H Total CO2 31 Base Excess 5 H O2 Saturation 95 O2 % 5.0 ABG pCO2 44.6 ABG pO2 74 L Nick Test Positive O2 Delivery Device Cannula Vent Mode Not entered Rhythm Strip Rhythm Strip: Sinus Rhythm Rate: 100 Ectopy: None Imaging Radiology Impression Chest X-Ray 06/22/25 09:10 IMPRESSION: Cardiomegaly. Vascular congestion and mild CHF with right basilar atelectasis. Reading Location: [id number] Assessment and Plan . Assessment and plan: HPI 39 yo obese chronically ill man w/ ESRD admitted 06/22/25 w/ fever and altered LOC from chronic care facility. High fever in ED. Borderline BP - given some IVF as bolus. BCX obtained - IV ABX given. Apparently has h/o ESBL producing organisms. Also has failed renal TX - still takes some Prograf. Has AVF - no vascular catheter. pCXR looks OK. Woulns look chronic w/ no gross infection. Has S-P catheter - trying to obtain urine sample. Very modest elevation lactic acid He is in ICU - he is stuporous. BP is marginal. Not distressed. Apparently does HD M-W-F EXAM GEN stuporous VS as above HEENT MMM NECK obese COR RRR CHEST CTA ABD soft EXT AKA SKIN w/d FITO NF A/P 1. Severe sepsis 2. Encephalopathy 3. ESRD 4. Immunosuppressed - failed CRTx 5. Severe ASCVD 6. Chronic wounds 7. 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
[2025-06-22] MEDS: Vancomycin HCl 2,000 MG in 0.9% Normal Saline (500mL Bag) 500 ML 250 MG IV (13:37)
[2025-06-22 13:39] LABS: Reflex Lactate? Y
[2025-06-22] MEDS: Norepinephrine 8 MG in 0.9% Normal Saline (250mL Bag) 242 ML 9.4 MG CONT INF (13:55)
--- NOTE | 2025-06-22 13:56 | NURSING ---
1235 Dr. Aaron present in pt room, begin set up TL 1315 R[address] fem TL in place and OK to use 1330 Dynamic RN Gregory present, set up for PICC
[2025-06-22] MEDS: 0.9% Saline Lock 10 ML Syringe IV ×2 (14:25→14:42)
[2025-06-22 14:45] LABS: Mucous, Urine 0 SEEN /hpf (<or=2+)
[2025-06-22 15:07] LABS: Color, Urine Red (Yellow); Glucose, Dipstick Normal (Normal); Ketone-Dipstick Negative (Negative); Leukocyte Esterase-Dipstick 500 /ul (Negative); Nitrite-Dipstick Negative (Negative); Occult Blood-Urine 250 /ul (Negative); Protein-Dipstick 500 mg/dl (Negative); Specific Gravity, Urine 1.010 (1.002-1.030)
[2025-06-22 15:09] LABS: Urine Bilirubin Dipstick 1 mg/dL (Negative)
--- NOTE | 2025-06-22 15:14 | OP.PCM_ITS ---
Procedures Hospitalists Procedures: [id number] Insert Non-tunnel CV Cath Operative Report (Standard) Operative Information Date of Procedure: 06/22/25 Pre-Operative Diagnosis: Acute hypotension and history of difficult venous access with no present intravenous access Post-Operative Diagnosis: Same Surgery/Procedure Performed: 1. Attempted but aborted right internal jugular CVC with ultrasound guidance 2. Ultrasound-guided right femoral CVC insertion street light repairer: No Type of Anesthesia: Local (10 mL 1% Xylocaine) Procedure Start Time: 12:15 Procedure Stop Time: 12:25 Select all DRAINS/GRAFTS/IMPLANTS that apply: Implanted device Implanted device details: 20 cm triple-lumen CVC Estimated Blood Loss: 10 Specimen collected: No Description of surgery: Procedure name: Insertion of 7 Haitian, triple-lumen central venous catheter (20 cm length) Procedure detail: Consent was presumed given the emergent nature of the procedure (patient was obtunded and blood pressures were ranging from 50s-60s/ 30 mmHg). Patient was positioned in Trendelenburg to facilitate filling of the central veins of the neck. The head was positioned to the left to allow access to the right neck. The neck was sterilely prepped with a chlorhexidine swab. The right internal jugular vein was localized using bedside ultrasound. It appeared to be widely patent with good collapsibility. The superficial tissues of the neck were then anesthetized with a local block using 5 mL 1% Xylocaine. Under direct ultrasound guidance the vein was accessed with return of dark red blood. Using a Seldinger technique a guidewire was passed but I met almost immediate resistance so I retracted the wire and attempted twice more by changing my angle and approach of the wire into the vessel. I also confirmed that my wire was within the vessel lumen but I still met resistance. There was some soft tissue swelling but no evidence of hematoma and not wanting to risk injury I chose to abort placement of a right jugular catheter. I briefly considered proceeding on the left side, however, I was concerned about the risk for similar difficulty given patient's contralateral upper extremity fistula as well. Therefore, I made the decision to proceed with a femoral approach. I obtained a new central line kit with a longer catheter (20 cm) and then I instructed nursing to sterilely prepped the right groin with a second chlor hexidine swab. They also provided retraction of the patient's pannus to facilitate access. Ultrasound was used to identify the common femoral artery and vein and local anesthetic was instilled in this location with a total volume of 5 mL 1% Xylocaine. The vein was accessed under ultrasound guidance and a single attempt and this time the guidewire passed without resistance. The access site was slightly enlarged at the skin with an 11 blade and dilated. Then the central venous catheter was inserted into the vein. All ports aspirated and flushed ease. The catheter was then sewn in using 4-0 silk in two-point fixation. Insertion site was cleaned and a chlorhexidine dressing was placed about the catheter to maintain sterility. Complications: None EBL: 10 mL Surgical Findings: ? Inability to pass wire for access of patient's right internal jugular vein for access of patient's right internal jugular vein. Site of resistance seem to be at the thoracic outlet. ? Easy passage of a central venous catheter via the right common femoral vein Complications Complications: No
--- NOTE | 2025-06-22 15:29 | NURSING ---
message left on pt's brother (Danilo) to call [facility]
[2025-06-22 15:54] LABS: Squamous Epithelial Cells - UA 0-5 SEEN /hpf (0-5)
[2025-06-22 15:55] LABS: Red Blood Cells-Urine > 100 SEEN /hpf (0-5)
[2025-06-22] MEDS: Meropenem 1 GM in 0.9% Normal Saline (100mL MB+) 100 ML IV (16:05)
[2025-06-22] MEDS: Vasopressin 20 UNITS in 0.9% Normal Saline (50mL Bag) 24 ML 3 UNITS CONT INF ×2 (17:30→22:35)
[2025-06-22] MEDS: TITRATION PARAMETER CHANGE 1 EACH IV (17:33)
[2025-06-22] MEDS: Norepinephrine 8 MG in 0.9% Normal Saline (250mL Bag) 242 ML 56.3 MG CONT INF (18:30)
--- NOTE | 2025-06-22 19:04 | EX.PCM.CON.S ---
Assessment & Plan Assessment/Plan (1) Septic shock: PLAN: Patient is 39-year-old male who was transported to ICU for ongoing management of his critical condition given concurrent hypotension and hypoglycemia but upon arrival to the unit was discovered he had no venous access. He was only intermittently coherent and cooperative but nursing reported familiarity with patient and that he has a history of difficult IV access. There as also communication that patient has a history of ESRD and is dialyzed via a left upper extremity fistula. I performed a brief exam of the patient's right neck and found what appeared to be a patent right internal jugular vein. There was only intermittent Doppler signal (which I reasoned was may be related to patient's hypotension) but the vein was collapsible and there was no sign of clot. However, I made 3 attempts to access this vessel and each time had return of dark red blood but was unable to thread my wire antegrade despite positioning changes. Therefore this attempt was abandoned and in the name of getting patient critical access the required I placed a right femoral CVC with a single attempt under ultrasound guidance. Full details are given in my operative report from this procedure. Nursing was given permission for immediate use. PICC line team arrived just at the conclusion of my procedure. Benedicto Aaron MD General Surgery Endocrine Surgery Pager: [facility] [address] [place] [address], [address] [place] [address] Office: [phone] (2) Acute hypotension: (3) Poor venous access: HPI Consult Data Date of Consult: 06/22/25 HPI Narrative Reason for Consultation: Emergent venous access needed HPI Narrative: CHINA GUILLEN, is a 39 M presented to the hospital from his nursing facility earlier today to our hospitals ER apparently with altered mental status and fever but became hypotensive. He initially had a midline and peripheral IV but by the time he was transported to the intensive care unit both of the sources of venous access were lost. I was called emergently by hospitalist, Dr. Palomo to assist with obtaining access given patient's present hypotension. Patient was intermittently responsive to basic commands but could not provide a history. He was diaphoretic. Nursing reported his blood sugar as 35. [facility] Medical History History of ESBL E. coli infection Anemia of chronic illness History of diabetes mellitus Anemia of chronic disease History of diabetes mellitus 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 disease Decubitus ulcer of ischial area Left patella fracture Chronic pain Chronic indwelling Hurst catheter Dialysis patient Kidney disease CPAP (continuous positive airway pressure) dependence Sleep apnea Hypertension Blind Encephalopathy Hyponatremia Hypertensive urgency Acute delirium Decubitus ulcer Abscess Left ischial pressure sore Open wound of left buttock with complication Current use of penitentiary anticoagulation Acute hyperkalemia Acute alteration in mental status Phantom limb syndrome with pain Paraplegia Metabolic encephalopathy ESRD (end stage renal disease) on dialysis Hx of pulmonary embolus Type 2 diabetes mellitus End-stage renal disease on hemodialysis Anticoagulant long-term use History of deep vein thrombosis Anemia in chronic kidney disease, on chronic dialysis Acute postoperative pain roasterman (current) use of 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 H/O deep venous thrombosis Osteomyelitis of pelvic region Lives in retirement Anxiety Open wound Insulin dependent diabetes mellitus Uses wheelchair Injury of back 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 disease 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, stage 4 Neurogenic bowel Kidney transplant failure Dependence on renal dialysis Pressure ulcer of left heel, unspecified stage Gastro-esophageal reflux disease without esophagitis Other pericardial effusion (noninflammatory) Other pulmonary embolism without acute cor pulmonale Hypertensive heart and chronic kidney disease with heart failure and stage 1 through stage 4 chronic kidney disease, or unspecified chronic kidney disease Depression Hyperlipemia Hypothyroidism Anemia in chronic kidney disease Neuromuscular dysfunction of bladder, unspecified Paraplegia, incomplete Other acute osteomyelitis, left ankle and foot Home Medications ?Medication ?Instructions ?Recorded ?Last Taken ?Type dextrose 40 % oral gel (Glucose 15 g PO Q15M PRN HYPGLYCEMIA 01/02/23 Unknown History Gel) sennosides 8.6 mg-docusate sodium 1 tab-cap PO BID CONSTIPATION 01/02/23 06/22/25 History 50 mg capsule (Senna Plus) tacrolimus 1 mg capsule, 2 mg PO BID kidney transplant 01/02/23 06/22/25 05:15 History immediate-release (Prograf) failure sevelamer HCl 800 mg tablet 2,400 mg PO TID ESRD 04/21/23 06/22/25 05:15 History insulin lispro 100 unit/mL 1 sliding scale dose subcut TIDCM 03/22/24 06/21/25 16:20 History subcutaneous pen type 2 diabetes guaifenesin 100 mg/5 mL oral 200 mg PO Q4H PRN COUGH/CONGESTION 03/29/24 06/19/25 10:20 History liquid (Adult Tussin Chest Congestion) glucagon HCl 1 mg solution for 1 mg IM Q20M PRN HYPOGLYCEMIA 04/13/24 Unknown History injection (Glucagon (HCl) Emergency Kit) hydralazine 50 mg tablet 50 mg PO 4X/DAY BLOOD PRESSURE 04/13/24 06/22/25 05:15 History sodium phosphates 19 gram-7 118 ml WI BID PRN constipation 04/22/24 Unknown History gram/118 mL enema (Fleet Enema) insulin glargine 100 unit/mL (3 12 unit subcut QPM DM 06/27/24 06/21/25 History mL) subcutaneous pen (Lantus Solostar U-100 Insulin) insulin lispro 100 unit/mL 5 unit subcut TID DM 06/27/24 06/22/25 05:15 History subcutaneous solution apixaban 2.5 mg tablet (Eliquis) 2.5 mg PO BID KIDNEY DISEASE WITH 11/09/24 06/22/25 05:15 History HEART FAILURE duloxetine 30 mg capsule,delayed 60 mg PO QHS major depressive 11/09/24 06/21/25 21:10 History release disorder gabapentin 300 mg capsule 300 mg PO BID neuropathy 11/09/24 06/22/25 05:15 History clonidine HCl 0.2 mg tablet 0.2 mg PO BID hypertensive heart 02/19/25 06/21/25 21:10 History and chronic kidney disease atorvastatin 40 mg tablet 40 mg PO DAILY hyperlipidemia 03/01/25 06/21/25 21:10 History calcitriol 0.5 mcg capsule 0.5 mcg PO MOWEFR esrd received 03/01/25 06/21/25 05:10 History from dialysis carvedilol 25 mg tablet 50 mg PO BID heart failure and 03/01/25 06/22/25 05:15 History chronic kidney disease ivermectin 1 % topical cream 1 applic topical QHS for skin 03/01/25 06/21/25 21:10 History irritation levothyroxine 150 mcg tablet 150 mcg PO DAILY hypothyroidism 03/01/25 06/22/25 05:15 History melatonin 3 mg capsule 9 mg PO QHS 03/01/25 Unknown History metronidazole 1 % topical gel 1 applic topical DAILY PRN skin 03/01/25 Unknown History irritation midodrine 10 mg tablet 10 mg PO DAILY PRN hypotension 03/01/25 Unknown History ondansetron HCl 4 mg tablet 4 mg PO Q8H PRN PRN nausea and 03/01/25 06/15/25 12:20 History vomiting pantoprazole 40 mg tablet,delayed 40 mg PO DAILY gerd w/o esophagitis 03/01/25 06/22/25 05:15 History release ertapenem 1 gram solution for 0.5 g IV DAILY 2 doses 03/03/25 Unknown Rx injection acetaminophen 325 mg tablet 650 mg PO Q4H PRN fever or pain 06/22/25 06/22/25 05:15 History acetaminophen 650 mg rectal 650 mg WI Q4H PRN fever or pain 06/22/25 Unknown History suppository (Pain Reliever (acetaminophen)) aluminum-magnesium hydroxide 200 30 ml PO Q4H PRN GI distress 06/22/25 Unknown History mg-200 mg/5 mL oral suspension cholecalciferol (vitamin D3) 50 50 mcg PO QPM vitamin d deficiency 06/22/25 06/21/25 12:20 History mcg (2,000 unit) capsule clobetasol 0.05 % shampoo 1 applic topical SUTU scalp 06/22/25 06/20/25 10:25 History psoriosis clobetasol 0.05 % shampoo 1 applic topical TH 06/22/25 06/17/25 History magnesium hydroxide 400 mg/5 mL 30 ml PO DAILY PRN constipation 06/22/25 Unknown History oral suspension (Milk of Magnesia) melatonin 10 mg tablet 10 mg PO QHS insomnia 06/22/25 06/21/25 21:10 History trazodone 50 mg tablet 25 mg PO QHS insomnia 06/22/25 06/21/25 21:10 History vitamin B complex-vitamin C-folic 1 tab PO DAILY end stage renal 06/22/25 06/21/25 16:25 History acid 0.8 mg tablet (Renal-Morales) disease Allergy/AdvReac Type Severity Reaction Status Date / Time No Known Allergies Allergy Verified 06/22/25 09:06 Family History Mother Hypertension Diabetes Father Hypertension Diabetes Surgical History History of kidney transplant S/P unilateral above knee amputation S/P foot surgery S/P colostomy Social History housing: retirement Smoking Status: Never smoker alcohol intake: never substance use type: does not use Physical Exam Const Constitutional Narrative: Clearly altered, diaphoretic, intermittently cooperative Nutritional Appearance: obese Neck Neck Narrative: Scar visible at the base of the right neck as from prior central venous catheter Extremity Extremity Narrative: Left lower extremity amputation. Lab / Micro Data 06/22/25 09:25 06/22/25 09:25 Labs: Laboratory Results - last 24 hr 06/22/25 09:25: WBC 12.4 H, RBC 3.19 L, Hgb 10.1 L, Hct 31.3 L, MCV 98.1 H, MCH 31.7, MCHC 32.3, RDW Std Deviation 50.0 H, RDW Coeff of Shanta 13.9, Plt Count 173, MPV 10.6, Immature Gran % (Auto) 1.700 H, Neut % (Auto) 82.9 H, Lymph % (Auto) 4.8 L, [place] % (Auto) 8.9, Eos % (Auto) 1.5, Baso % (Auto) 0.2, Absolute Neuts (auto) 10.3 H, Absolute Lymphs (auto) 0.59 L, Nucleated RBC % 0, PT 17.0 H, INR 1.4, APTT 35.1, Sodium 138, Potassium 4.4, Chloride 95 L, Carbon Dioxide 28.4, Anion Gap 14, BUN 54 H, Creatinine 8.00 H*, Estim Creat Clear Calc 18.27 L, Est GFR (MDRD) Non-Af 8 L, BUN/Creatinine Ratio 6.7 L, Glucose 79, Lactic Acid 2.7 H*, Calcium 8.8, Total Bilirubin 0.75, AST 50 H, ALT 35, Alkaline Phosphatase 245 H, Total Protein 8.4, Albumin 3.4 L, Globulin 5.0 H, Albumin/Globulin Ratio 0.7 L 06/22/25 12:00: POC Glucose 65 L 06/22/25 14:15: Lactic Acid 2.3 H* 06/22/25 14:25: POC Glucose 100 06/22/25 14:40: Urine Color Red, Urine Clarity Turbid, Urine pH 7.0, Ur Specific [place] 1.010, Urine Protein 500 H, Urine Glucose (UA) Normal, Urine Ketones Negative, Urine Occult Blood 250 H, Urine Nitrite Negative, Urine Bilirubin 1 H, Urine Urobilinogen Normal, Ur Leukocyte Esterase 500 H, Urine RBC > 100 SEEN, Urine WBC 0 SEEN, Ur Squamous Epith Cells 0-5 SEEN, Urine Bacteria 0 SEEN, Urine Mucus 0 SEEN 06/22/25 16:02: POC Glucose 89 Micro: Microbiology 06/22/25 15:04 Mucosa - Nasopharyngeal Respiratory Panel (PCR) - Final 06/22/25 14:40 Urine Catheter - Catheter Legionella Antigen - Final 06/22/25 14:40 Urine Catheter - Catheter Streptococcus pneumoniae Antigen (M - Final 06/22/25 11:45 Mucosa - Nasopharyngeal Coronavirus COVID-19 PCR - Final 06/22/25 09:25 Mucosa - Nose SARS-CoV-2, Influenza & RSV (PCR) - Final ABG Data ABG results: ABG 06/22/25 10:51 Specimen Type ART Sample Site R Radial pH 7.43 Bicarbonate Actual 29.4 H Total CO2 31 Base Excess 5 H O2 Saturation 95 O2 % 5.0 ABG pCO2 44.6 ABG pO2 74 L Nick Test Positive O2 Delivery Device Cannula Vent Mode Not entered Rhythm Strip Rhythm Strip: Sinus Rhythm Rate: 100 Ectopy: None Imaging Radiology Impression Chest X-Ray 06/22/25 09:10 IMPRESSION: Cardiomegaly. Vascular congestion and mild CHF with right basilar atelectasis. Reading Location: [id number] Charges/Coding Visit Charges Inpatient E&M: 31663 Init Hosp L2
[2025-06-22] MEDS: Cholecalciferol (VIT D3) 25 MCG TABLET (1,000 UNITS) 50 MCG PO (21:49)
[2025-06-22] MEDS: APIXABAN 2.5 MG TABLET (WCH) PO (21:50)
[2025-06-22] MEDS: Senna/Docusate Sodium 1 Tablet PO (21:50)
[2025-06-22] MEDS: 0.9% Normal Saline (250mL Bag) 250 ML 15 ML IV (22:35)
[2025-06-22] MEDS: Norepinephrine 8 MG in 0.9% Normal Saline (250mL Bag) 242 ML 46.9 MG CONT INF (23:56)
[2025-06-23] VITALS (49 sets, daily range): BP systolic 85–146; BP diastolic 32–78; PULSE 89–99; RESP 17–25; TEMP 36.2–37.2; O2SAT 96–100; BMI 42.5; BMI 42.0
[2025-06-23] MEDS: 0.9 % NaCl (Sterile) Posiflush 10 mL IV (00:06)
[2025-06-23] MEDS: CHLORHEXIDINE GLUC 2% CLOTH 1 EACH TOWELETTE TOPICAL ×2 (02:17→23:43)
[2025-06-23] MEDS: 0.9% Saline Lock 10 ML Syringe IV ×5 (03:46→22:51)
[2025-06-23 03:51] LABS: Hematocrit 31.8 % (40-54); Hemoglobin 9.8 g/dL (13.0-16.5); Mean Corp Hgb Conc 30.8 g/dL (32-36); Mean Corpuscular Volume 100.6 fL (80-94); Mean Platelet Vol. 10.6 fl (6.2-12.0); POSITIVE COUNT YES; POSITIVE DIFFERENTIAL YES; Platelet Count 174 K/mm3 (150-450); RBC Distribution Width CV 14.3 % (11.6-14.6); RBC Distribution Width SD 53.2 fl (35.1-43.9); Red Blood Count 3.16 M/mm3 (4.6-6.2)
[2025-06-23 04:10] LABS: Differential Indicated MANUAL DIFF; White Blood Count 31.6 K/mm3 (4.4-11.0)
[2025-06-23 04:16] LABS: Anion Gap 14 (5-15); BUN 59 mg/dL (4-19); BUN/Creat Ratio 6.8 RATIO (10-20); Calcium,Total 8.8 mg/dL (7.6-11.0); Carbon Dioxide 25.1 mmol/L (21.0-32.0); Chloride 97 mmol/L (98-108); Estimated Creatinine Clearance 17.42 ml/min (50-250); Glucose 185 mg/dL (70-99); Magnesium 1.9 mg/dL (1.5-2.2); Potassium 5.4 mmol/L (3.3-5.1)
[2025-06-23 04:46] LABS: Neutrophil-Band 4 % (0-5); Neutrophil-Segmented 90 % (47-70); Total Cells Counted 100 (MANUAL DIFF)
[2025-06-23 04:52] LABS: Red Cell Morphology NORM C+C NORMAL (NORM C&C)
[2025-06-23 04:53] LABS: Differential Comment SCANNED
[2025-06-23] MEDS: Norepinephrine 8 MG in 0.9% Normal Saline (250mL Bag) 242 ML 46.9 MG CONT INF (05:17)
[2025-06-23] MEDS: Vasopressin 20 UNITS in 0.9% Normal Saline (50mL Bag) 24 ML 3 UNITS CONT INF (07:08)
--- NOTE | 2025-06-23 07:14 | PN.HOSP_ITS ---
Reason for Visit Chief Complaint: Altered mental status Subjective Subjective Patient was admitted with septic shock suspected to be secondary to cystitis. Patient was admitted to the intensive care unit cultures sent started on gentle IV fluid (has history of end-stage renal disease and is on hemodialysis). Patient was also started on 2 pressors Levophed as well as vasopressin. Vasopressin has since been weaned off. WBC count remains markedly elevated and in Tmax over the past 24 hours 102 Fahrenheit. Patient is however much more alert compared to previous Objective Data Objective Data Vital Signs: Vital Signs Temp Pulse Resp BP Pulse Ox O2 Del Method O2 Flow Rate 98.1 F 90 25 H 146/44 H 98 Nasal Cannula 3 06/23/25 04:00 06/23/25 07:00 06/23/25 07:00 06/23/25 07:00 06/23/25 07:00 06/23/25 07:00 06/23/25 07:00 Oxygen Flow Rate (L/min) 3 Oxygen Delivery Method Nasal Cannula Weight: 145.6 kg Body Mass Index (BMI) 42.5 Intake & Output: Intake and Output for Last 24 Hours 06/21/25 06/22/25 06/23/25 23:59 23:59 23:59 Intake Total 4362.20 / 4365.33 1115.51 / 1115.51 Output Total 0 / 0 Balance 4362.20 / 4365.33 1115.51 / 1115.51 Lab / Micro Data 06/23/25 03:40 06/23/25 03:40 Labs: Laboratory Results - last 24 hr 06/22/25 09:25: WBC 12.4 H, RBC 3.19 L, Hgb 10.1 L, Hct 31.3 L, MCV 98.1 H, MCH 31.7, MCHC 32.3, RDW Std Deviation 50.0 H, RDW Coeff of Shanta 13.9, Plt Count 173, MPV 10.6, Immature Gran % (Auto) 1.700 H, Neut % (Auto) 82.9 H, Lymph % (Auto) 4.8 L, [place] % (Auto) 8.9, Eos % (Auto) 1.5, Baso % (Auto) 0.2, Absolute Neuts (auto) 10.3 H, Absolute Lymphs (auto) 0.59 L, Nucleated RBC % 0, PT 17.0 H, INR 1.4, APTT 35.1, Sodium 138, Potassium 4.4, Chloride 95 L, Carbon Dioxide 28.4, Anion Gap 14, BUN 54 H, Creatinine 8.00 H*, Estim Creat Clear Calc 18.27 L, Est GFR (MDRD) Non-Af 8 L, BUN/Creatinine Ratio 6.7 L, Glucose 79, Lactic Acid 2.7 H*, Calcium 8.8, Total Bilirubin 0.75, AST 50 H, ALT 35, Alkaline Phosphatase 245 H, Total Protein 8.4, Albumin 3.4 L, Globulin 5.0 H, Albumin/Globulin Ratio 0.7 L 06/22/25 12:00: POC Glucose 65 L 06/22/25 14:15: Lactic Acid 2.3 H* 06/22/25 14:25: POC Glucose 100 06/22/25 14:40: Urine Color Red, Urine Clarity Turbid, Urine pH 7.0, Ur Specific [place] 1.010, Urine Protein 500 H, Urine Glucose (UA) Normal, Urine Ketones Negative, Urine Occult Blood 250 H, Urine Nitrite Negative, Urine Bilirubin 1 H, Urine Urobilinogen Normal, Ur Leukocyte Esterase 500 H, Urine RBC > 100 SEEN, Urine WBC 0 SEEN, Ur Squamous Epith Cells 0-5 SEEN, Urine Bacteria 0 SEEN, Urine Mucus 0 SEEN 06/22/25 16:02: POC Glucose 89 06/22/25 21:54: POC Glucose 125 H 06/23/25 03:40: WBC 31.6 H*, RBC 3.16 L, Hgb 9.8 L, Hct 31.8 L, MCV 100.6 H, MCH 31.0, MCHC 30.8 L, RDW Std Deviation 53.2 H, RDW Coeff of Shanta 14.3, Plt Count 174, MPV 10.6, Neut % (Auto) Not Reportable, Absolute Neuts (auto) 29.7 H, A bsolute Lymphs (auto) 0.63 L, Total Counted 100, Neutrophils % (Manual) 90 H, Band Neutrophils % 4, Lymphocytes % (Manual) 2 L, Monocytes % (Manual) 4, Differential Comment SCANNED, Diff Path Review May foll, Platelet Estimate ADEQUATE, Plt Morphology Comment LARGE, RBC Morphology NORM C+C, Sodium 137, P otassium 5.4 H, Chloride 97 L, Carbon Dioxide 25.1, Anion Gap 14, BUN 59 H, C reatinine 8.72 H*, Estim Creat Clear Calc 17.42 L, Est GFR (MDRD) Non-Af 7 L, B UN/Creatinine Ratio 6.8 L, Glucose 185 H, Calcium 8.8, Phosphorus 4.0, Magnesium 1.9 Micro: Microbiology 06/22/25 15:04 Mucosa - Nasopharyngeal Respiratory Panel (PCR) - Final 06/22/25 14:40 Urine Catheter - Catheter Legionella Antigen - Final 06/22/25 14:40 Urine Catheter - Catheter Streptococcus pneumoniae Antigen (M - Final 06/22/25 11:45 Mucosa - Nasopharyngeal Coronavirus COVID-19 PCR - Final 06/22/25 09:25 Mucosa - Nose SARS-CoV-2, Influenza & RSV (PCR) - Final ABG Data ABG results: ABG 06/22/25 10:51 Specimen Type ART Sample Site R Radial pH 7.43 Bicarbonate Actual 29.4 H Total CO2 31 Base Excess 5 H O2 Saturation 95 O2 % 5.0 ABG pCO2 44.6 ABG pO2 74 L Nick Test Positive O2 Delivery Device Cannula Vent Mode Not entered Radiography Diagnostic Testing: Radiology Impression Chest X-Ray 06/22/25 09:10 IMPRESSION: Cardiomegaly. Vascular congestion and mild CHF with right basilar atelectasis. Reading Location: [facility] Rhythm Strip Rhythm Strip: Sinus Rhythm Rate: 100 Ectopy: None Physical Exam Narrative GENERAL: Patient communicating HEENT: Atraumatic; normocephalic EYES; Anicteric, Normal Conjunctiva NECK; supple, normal thyroid, RESPIRATORY: Diminished to auscultation CARDIOVASCULAR: Regular S1 S2, GI: soft, normoactive bowel sounds, : No Renal angle tenderness; EXTREMITIES: No edema, no clubbing, MUSCULOSKELETAL: Left BKA NEURO: Awake and communicative no lateralizing sign g all extremities SKIN: No rash PSYCH; flat Assessment & Plan Assessment/Plan (1) Septic shock: PLAN: Plan Patient is a 39-year-old gentleman with multiple comorbidities including end- stage renal disease, recurrent PE and DVTs resident at an [facility] who presented with decreased level of sensorium with fever 1. Acute metabolic encephalopathy ? Secondary to sepsis of unspecified source. Patient has been admitted to the intensive care unit for subsequent management of suspected underlying etiology ? 06/23/2025; patient encephalopathy improving 2. Sepsis/Septic Shock ? Patient was found to have leukocytosis, hypotensive, fever with evidence of endorgan dysfunction?lactic acidosis as well as decreased level of sensorium. Cultures including viral respiratory panel and COVID assay sent. Patient was started on broad-spectrum antibiotic therapy with cefepime and vancomycin.. Patient has history of ESBL E: Coli cystitis. Urine cultures were therefore sent ? 06/23/2025; patient ended up being started on vasopressin and Levophed. Vasopressin has since been weaned off. Patient was also started on stress doses of hydrocortisone. Patient has a significant rise in his WBC count from 12.4 on admission to 31.6 3. End-stage renal disease ? Patient has history of failed renal transplant. Currently on hemodialysis on Tuesdays and Saturdays consult placed to nephrology for dialysis orders ? 06/23/2025; scheduled to undergo dialysis today 4. Anemia ? Secondary to anemia of end-stage renal disease monitoring H&H with plans to transfuse or if patient is deemed to be symptomatic 5. Dyslipidemia -Patient is on statin therapy, continued at home dose 6. Hypothyroidism - Patient is on levothyroxine home dose continued 7. Hypertension - Blood pressure controlled, home medications continued with dose adjustment as needed 8. Class III obesity with BMI of 44 ? Complicating care weight loss advised 9. Diabetes mellitus type II -patient's oral hypoglycemics held. Placed on long acting insulin, Accu-Cheks a.c. and at bedtime and covered with sliding scale insulin 10. GERD ? On PPI 11. Depression with anxiety ? Patient is on duloxetine as well as trazodone currently being held given his decreased level of sensorium 12 history of left BKA ? Supportive care 13. History of previous VTE ? Patient is on apixaban did continue 14. Chronic sacral decubitus ? Consult placed wound care nurse for dressing change 15. Paroxysmal atrial fibrillation ? Rate controlled on carvedilol and is on systemic anticoagulation with apixaban 16. DVT prophylaxis ? Patient is already on systemic anticoagulation 17. Hyperkalemia ? Secondary to ESRD plan is to manage through dialysis Charges/Coding Visit Charges Inpatient E&M: 76834 Subs Hosp L3
--- NOTE | 2025-06-23 08:09 | PCM.PN.SRG ---
Subjective Subjective Patient evaluated resting comfortably in bed. He denies any pain/discomfort in the right neck or groin area. He notes shoulder discomfort. Objective Data Objective Data Vital Signs: Vital Signs Temp Pulse Resp BP Pulse Ox O2 Del Method O2 Flow Rate 98.1 F 90 25 H 145/45 H 98 Nasal Cannula 3 06/23/25 04:00 06/23/25 07:00 06/23/25 07:00 06/23/25 07:15 06/23/25 08:03 06/23/25 08:03 06/23/25 08:03 Oxygen Flow Rate (L/min) 3 Oxygen Delivery Method Nasal Cannula Weight: 320 lb 15.889 oz Body Mass Index (BMI) 42.5 Intake & Output: Intake and Output for Last 24 Hours 06/21/25 06/22/25 06/23/25 23:59 23:59 23:59 Intake Total 4362.20 / 4365.33 1127.24 / 1127.24 Output Total 0 / 0 Balance 4362.20 / 4365.33 1127.24 / 1127.24 Lab / Micro Data 06/23/25 03:40 06/23/25 03:40 Labs: Laboratory Results - last 24 hr 06/22/25 09:25: WBC 12.4 H, RBC 3.19 L, Hgb 10.1 L, Hct 31.3 L, MCV 98.1 H, MCH 31.7, MCHC 32.3, RDW Std Deviation 50.0 H, RDW Coeff of Shanta 13.9, Plt Count 173, MPV 10.6, Immature Gran % (Auto) 1.700 H, Neut % (Auto) 82.9 H, Lymph % (Auto) 4.8 L, [place] % (Auto) 8.9, Eos % (Auto) 1.5, Baso % (Auto) 0.2, Absolute Neuts (auto) 10.3 H, Absolute Lymphs (auto) 0.59 L, Nucleated RBC % 0, PT 17.0 H, INR 1.4, APTT 35.1, Sodium 138, Potassium 4.4, Chloride 95 L, Carbon Dioxide 28.4, Anion Gap 14, BUN 54 H, Creatinine 8.00 H*, Estim Creat Clear Calc 18.27 L, Est GFR (MDRD) Non-Af 8 L, BUN/Creatinine Ratio 6.7 L, Glucose 79, Lactic Acid 2.7 H*, Calcium 8.8, Total Bilirubin 0.75, AST 50 H, ALT 35, Alkaline Phosphatase 245 H, Total Protein 8.4, Albumin 3.4 L, Globulin 5.0 H, Albumin/Globulin Ratio 0.7 L 06/22/25 12:00: POC Glucose 65 L 06/22/25 14:15: Lactic Acid 2.3 H* 06/22/25 14:25: POC Glucose 100 06/22/25 14:40: Urine Color Red, Urine Clarity Turbid, Urine pH 7.0, Ur Specific [place] 1.010, Urine Protein 500 H, Urine Glucose (UA) Normal, Urine Ketones Negative, Urine Occult Blood 250 H, Urine Nitrite Negative, Urine Bilirubin 1 H, Urine Urobilinogen Normal, Ur Leukocyte Esterase 500 H, Urine RBC > 100 SEEN, Urine WBC 0 SEEN, Ur Squamous Epith Cells 0-5 SEEN, Urine Bacteria 0 SEEN, Urine Mucus 0 SEEN 06/22/25 16:02: POC Glucose 89 06/22/25 21:54: POC Glucose 125 H 06/23/25 03:40: WBC 31.6 H*, RBC 3.16 L, Hgb 9.8 L, Hct 31.8 L, MCV 100.6 H, MCH 31.0, MCHC 30.8 L, RDW Std Deviation 53.2 H, RDW Coeff of Shanta 14.3, Plt Count 174, MPV 10.6, Neut % (Auto) Not Reportable, Absolute Neuts (auto) 29.7 H, Absolute Lymphs (auto) 0.63 L, Total Counted 100, Neutrophils % (Manual) 90 H, Band Neutrophils % 4, Lymphocytes % (Manual) 2 L, Monocytes % (Manual) 4, Differential Comment SCANNED, Diff Path Review May foll, Platelet Estimate ADEQUATE, Plt Morphology Comment LARGE, RBC Morphology NORM C+C, Sodium 137, Potassium 5.4 H, Chloride 97 L, Carbon Dioxide 25.1, Anion Gap 14, BUN 59 H, Creatinine 8.72 H*, Estim Creat Clear Calc 17.42 L, Est GFR (MDRD) Non-Af 7 L, BUN/Creatinine Ratio 6.8 L, Glucose 185 H, Calcium 8.8, Phosphorus 4.0, Magnesium 1.9 Micro: Microbiology 06/22/25 15:04 Mucosa - Nasopharyngeal Respiratory Panel (PCR) - Final 06/22/25 14:40 Urine Catheter - Catheter Legionella Antigen - Final 06/22/25 14:40 Urine Catheter - Catheter Streptococcus pneumoniae Antigen (M - Final 06/22/25 11:45 Mucosa - Nasopharyngeal Coronavirus COVID-19 PCR - Final 06/22/25 09:25 Mucosa - Nose SARS-CoV-2, Influenza & RSV (PCR) - Final ABG Data ABG results: ABG 06/22/25 10:51 Specimen Type ART Sample Site R Radial pH 7.43 Bicarbonate Actual 29.4 H Total CO2 31 Base Excess 5 H O2 Saturation 95 O2 % 5.0 ABG pCO2 44.6 ABG pO2 74 L Nick Test Positive O2 Delivery Device Cannula Vent Mode Not entered Radiography Diagnostic Testing: Radiology Impression Chest X-Ray 06/22/25 09:10 IMPRESSION: Cardiomegaly. Vascular congestion and mild CHF with right basilar atelectasis. Reading Location: [id number] Rhythm Strip Rhythm Strip: Sinus Rhythm Rate: 100 Ectopy: None Physical Exam Chest Chest Narrative: Chest/neck, right- micropunctures c/d/i. No active oozing or bleeding. Extremity Extremity Narrative: Right groin- central line in place. Sand bag applying pressure to the groin. Dark blood noted under the dressing. Appears to be no active oozing. Assessment & Plan Assessment/Plan (1) Poor venous access: (2) Acute hypotension: PLAN: Plan I am following this patient in conjunction with Dr. Aaron. He has independently evaluated this patient. Labs reviewed Change right groin dressing a little later this morning We will follow this patient as needed Nursing noted patient may need an additional line for dialysis if continue to be on pressors Charges/Coding Visit Charges Inpatient E&M: 74110 Subs Hosp L2
[2025-06-23] MEDS: Senna/Docusate Sodium 1 Tablet PO ×2 (08:17→21:14)
[2025-06-23] MEDS: APIXABAN 2.5 MG TABLET (WCH) PO ×2 (08:17→21:13)
[2025-06-23] MEDS: 0.9% Normal Saline 1,000 ML IV.SOLN. 1000 ML OPERA.SITE (08:58)
[2025-06-23] MEDS: PureFlow B 2K Dialysis Soln 1 BAG 6 BAG PF (08:59)
--- NOTE | 2025-06-23 10:24 | CASEMGMT ---
Noted that the pt is from [facility]. DUSTIN IVERSON to the pt room at this time. Pt is currently being dialyzed. The HD RN states that he has already communicated with the HD center and states that the pt goes to [facility] in [facility]. DUSTIN IVERSON discussed DC planning with the pt. Pt states that he plans to return to [facility] and denies wanting to review a list of other local in-network SNFs. Pt denies further questions or concerns at this time. Per ICU Rounds, Dr Palomo reports that the pt will likely be medically ready for DC in 2-3 days. DPA notified.
--- NOTE | 2025-06-23 10:37 | ECHOL_ITS ---
Reason For Study Reason For Study: other (shock of unclear etiology) Procedure This was a limited 2D transthoracic echocardiogram. The study was technically difficult. The study was technically limited. Unable to utilize Definity due to kidney status. Exam performed portable in ICU/CCU. Full Echocardiogram 06/10/25. Left Ventricle Normal LV size. Mild concentric left ventricular hypertrophy. The left ventricular ejection fraction is 55 %. Stage 1 diastolic dysfunction. Right Ventricle Normal right ventricle. Atria The left and right atria are normal. Mitral Valve Normal mitral valve. Tricuspid Valve Normal tricuspid valve. Aortic Valve Trisinus/trileaflet aortic valve. Pulmonic Valve Trivial pulmonic valve insufficiency. Great Vessels Normal sized aortic root. Pericardium/Pleural No pericardial effusion. MMode/2D Measurements & Calculations LVIDd: 6.3 cm IVSd: 1.4 cm Ao root diam: 3.3 cm LVIDs: 4.3 cm LVPWd: 1.4 cm RVDd: 4.5 cm FS: 32.0 % asc Aorta Diam: 3.6 cm LAV(MOD-bp): 104.2 ml RVOT diam: 3.2 cm LAV(MOD-bp) Indexed: 39.6 ml/m2 LAV(MOD-sp2): 118.4 ml LAV(MOD-sp4): 72.5 ml SV(MOD-sp4): 120.4 ml SV(sp4-el): 127.7 ml LVAd ap4: 47.6 cm2 LVLd ap4: 9.5 cm SI(MOD-sp4): 45.8 ml/m2 EDV(MOD-sp4): 198.9 ml EDV(sp4-el): 202.0 ml LVAs ap4: 26.7 cm2 LVLs ap4: 8.1 cm ESV(MOD-sp4): 78.4 ml ESV(sp4-el): 74.3 ml EF(MOD-sp4): 60.6 % EF(sp4-el): 63.2 % LA A4 area: 26.1 cm2 LA dimension(2D): 4.1 cm RA A4 area: 33.7 cm2 Doppler Measurements & Calculations PA V2 max: 98.9 cm/sec ECHO/Echo, Limited Study Interpretation Summary The study was technically difficult. Mild concentric left ventricular hypertrophy. The left ventricular ejection fraction is 55 %. Stage 1 diastolic dysfunction. Ordering Physician: Hemanth Dodd Referring Physician: Justyn Rosario Performed By: Adela Conti RDCS, RVT
--- NOTE | 2025-06-23 10:40 | PN.CC_ITS ---
Objective Data Objective Data Vital Signs: Vital Signs Last response 3 Temperature 36.2 C L 06/23/25 08:29 Temperature Source Temporal 06/23/25 08:29 Pulse Rate 89 06/23/25 10:30 Pulse Strength Weak (1+) 06/23/25 09:16 Respiratory Rate 21 H 06/23/25 10:30 Respiratory Effort Normal, Non-Labored 06/23/25 08:29 Respiratory Depth Normal 06/23/25 08:29 Respiratory Pattern Normal 06/23/25 08:29 Blood Pressure 121/51 H 06/23/25 10:30 Blood Pressure Mean 74 06/23/25 10:30 Blood Pressure Source Monitor 06/23/25 10:30 Blood Pressure Position Semi-Fowlers 06/23/25 10:30 Blood Pressure Location Right Forearm 06/23/25 10:30 Pulse Ox 100 06/23/25 10:30 Oxygen Delivery Method Nasal Cannula 06/23/25 10:30 Oxygen Flow Rate (L/min) 3 06/23/25 10:30 I&O: I&O Last 24 Hours 3 06/22/25 06/22/25 06/23/25 11:59 23:59 11:59 Intake Total 1600 / 4365.33 2762.20 / 4365.33 1175.22 / 1175.22 Output Total 0 / 0 Balance 1600 / 4365.33 2762.20 / 4365.33 1175.22 / 1175.22 I&O: Total Stay 3 06/22/25 09:01 thru 06/23/25 08:45 Intake Total 5537.42 Output Total 0 Balance 5537.42 Current Meds Ordered / Administered: Current meds ordered / Administered 3 Generic Name Dose Route Start Last Admin Trade Name Freq PRN Reason Stop Dose Admin Acetaminophen 650 mg 06/22/25 12:12 Acetaminophen 325 Mg Tablet PO Q6H PRN PRN Pain 1-10 Or Fever>100.7 Al Hydrox/Mg Hydrox/Simethicone 30 ml 06/22/25 12:25 Mag /Aluminum/Simeth Wch Udc 30 Ml Oral.Susp PO Q4H PRN GI distress Apixaban 2.5 mg 06/22/25 22:00 06/23/25 08:17 Apixaban 2.5 Mg Tablet (Wch) PO 2.5 mg BID TARUN Administration Atorvastatin Calcium 40 mg 06/23/25 10:00 06/23/25 08:17 Atorvastatin Calcium 40 Mg Tablet PO 40 mg DAILY TARUN Administration Calcitriol 0.5 mcg 06/23/25 10:00 06/23/25 08:17 Calcitriol 0.25 Mcg Capsule PO 0.5 mcg MoWeFr@1000 TARUN Administration Chlorhexidine Gluconate 1 each 06/23/25 10:00 06/23/25 02:17 Chlorhexidine Gluc 2% Cloth 1 Each [place] TOPICAL 1 each DAILY TARUN Administration Cholecalciferol 50 mcg 06/22/25 21:00 06/22/25 21:49 Cholecalciferol (Vit D3) 25 Mcg Tablet (1,000 Units) PO 50 mcg QPM TARUN Administration Glucagon 1 mg 06/22/25 12:12 Glucagon 1 Mg/Ml Syringe IM X1 PRN HYPOGLYCEMIA Protocol Guaifenesin 10 ml 06/22/25 12:12 Guaifenesin 10 Ml Udc (200mg/10ml) PO Q4H PRN COUGH/CONGESTION Hemodialysis Solution 6 bag 06/23/25 08:00 06/23/25 08:59 Pureflow B 2k Dialysis Soln 1 Bag PF 06/23/25 20:03 6 bag UD TARUN Administration Protocol Hydrocortisone Sodium Succinate 50 mg 06/22/25 18:00 06/23/25 05:17 Hydrocortisone Sod Succinate 100 Mg/2 Ml Vial IV 50 mg Q6 TARUN Administration Dextrose 250 mls @ 0 mls/hr 06/22/25 12:12 06/22/25 16:00 Dextrose 10%-Water IV Infused .Q0M PRN Infusion HYPOGLYCEMIA Protocol As Directed Vancomycin IV-PHARMACY TO DOSE 500 mls @ 250 mls/hr 06/22/25 12:12 1 each/ Sodium Chloride IV PRN PRN Rx to Dose Protocol Norepinephrine Bitartrate 8 mg 250 mls @ 9.375 mls/hr 06/22/25 13:30 06/23/25 08:45 / Sodium Chloride CONT INF 15 mcg/min .[id number] TARUN 28.1 mls/hr Protocol Titration 5 MCG/MIN Meropenem 1 gm/ Sodium 100 mls @ 33 mls/hr 06/22/25 14:40 06/22/25 20:15 Chloride IV Infused Q24@1600 TARUN Infusion Dextrose/Lactated Ringer's 1,000 mls @ 75 mls/hr 06/22/25 15:25 06/23/25 04:23 IV 75 mls/hr .[id number] TARUN Administration Sodium Chloride 250 mls @ 15 mls/hr 06/22/25 15:47 06/22/25 22:35 IV 15 mls/hr .[id number] PRN Administration Saline Flush Sodium Chloride 250 mls @ 15 mls/hr 06/22/25 15:47 IV .[id number] PRN Additional IVPB Infusion Vasopressin 20 units/ Sodium 25 mls @ 3 mls/hr 06/22/25 17:05 06/23/25 07:30 Chloride CONT INF 0 units/min .[id number] TARUN 0 mls/hr 0.04 UNITS/MIN Infusion Vancomycin HCl 1,000 mg/ 270 mls @ 250 mls/hr 06/23/25 17:00 Sodium Chloride IV 06/23/25 18:04 X1 ONE Insulin Human Lispro 0 unit 06/22/25 12:12 06/23/25 08:16 Insulin Lispro 100 Unit/Ml Insuln.Pen SC 4 units ACHS TARUN Administration Protocol Levothyroxine Sodium 150 mcg 06/23/25 06:00 06/23/25 05:17 Levothyroxine 150 Mcg Tablet PO 150 mcg DAILY@0600 TARUN Administration Midodrine 10 mg 06/23/25 09:00 06/23/25 09:33 Midodrine Hcl 5 Mg Tablet PO 10 mg TIDCM TARUN Administration Ondansetron HCl 4 mg 06/22/25 12:12 Ondansetron 4 Mg/2 Ml Vial IV Q8H PRN PRN NAUSEA/VOMITING Pantoprazole Sodium 40 mg 06/23/25 10:00 06/23/25 08:17 Pantoprazole Sodium 40 Mg Tablet PO 40 mg DAILY TARUN Administration Senna/Docusate Sodium 1 tablet 06/22/25 22:00 06/23/25 08:17 Senna/Docusate Sodium 1 Tablet PO 1 tablet BID TARUN Administration Sevelamer Carbonate 2,400 mg 06/22/25 17:00 06/23/25 08:18 Sevelamer Carbonate 800 Mg Tablet PO Not Given TIDCM TARUN Sodium Chloride 10 - 40 ml 06/22/25 14:11 06/23/25 03:46 0.9% Saline Lock 10 Ml Syringe IV 20 ml UD PRN Administration Open End PICC Flush Sodium Chloride 10 - 40 ml 06/22/25 14:11 06/23/25 00:06 0.9 % Nacl (Sterile) Posiflush 10 Ml IV 10 ml UD PRN Administration Port access or dressing change Sodium Chloride 10 - 40 ml 06/22/25 14:11 0.9% Saline Lock 10 Ml Syringe IV UD PRN SALINE FLUSH Sodium Chloride 1,000 ml 06/23/25 08:00 06/23/25 08:58 0.9% Normal Saline 1,000 Ml Iv.Soln. OPERA.SITE 06/23/25 19:59 1,000 ml X1 TARUN Administration Sodium Chloride 200 ml 06/23/25 07:59 0.9% Normal Saline 1,000 Ml Iv.Soln. IV 06/23/25 19:59 X1 PRN to maintain SBP >90mmHg during Dialysis Tacrolimus 2 mg 06/22/25 22:00 06/23/25 08:17 Tacrolimus Anhydrous 1 Mg Capsule PO 2 mg BID TARUN Administration Vancomycin Protocol 1 lab 06/25/25 05:00 Vancomycin Trough/Random Due MC 06/25/25 07:00 DAILY [facility] Lab / Micro Data 06/23/25 03:40 06/23/25 03:40 Labs: Laboratory Results - last 24 hr 06/22/25 12:00: POC Glucose 65 L 06/22/25 14:15: Lactic Acid 2.3 H* 06/22/25 14:25: POC Glucose 100 06/22/25 14:40: Urine Color Red, Urine Clarity Turbid, Urine pH 7.0, Ur Specific [place] 1.010, Urine Protein 500 H, Urine Glucose (UA) Normal, Urine Ketones Negative, Urine Occult Blood 250 H, Urine Nitrite Negative, Urine Bilirubin 1 H, Urine Urobilinogen Normal, Ur Leukocyte Esterase 500 H, Urine RBC > 100 SEEN, Urine WBC 0 SEEN, Ur Squamous Epith Cells 0-5 SEEN, Urine Bacteria 0 SEEN, Urine Mucus 0 SEEN 06/22/25 16:02: POC Glucose 89 06/22/25 21:54: POC Glucose 125 H 06/23/25 03:40: WBC 31.6 H*, RBC 3.16 L, Hgb 9.8 L, Hct 31.8 L, MCV 100.6 H, MCH 31.0, MCHC 30.8 L, RDW Std Deviation 53.2 H, RDW Coeff of Shanta 14.3, Plt Count 174, MPV 10.6, Neut % (Auto) Not Reportable, Absolute Neuts (auto) 29.7 H, A bsolute Lymphs (auto) 0.63 L, Total Counted 100, Neutrophils % (Manual) 90 H, Band Neutrophils % 4, Lymphocytes % (Manual) 2 L, Monocytes % (Manual) 4, Differential Comment SCANNED, Diff Path Review May foll, Platelet Estimate ADEQUATE, Plt Morphology Comment LARGE, RBC Morphology NORM C+C, Sodium 137, P otassium 5.4 H, Chloride 97 L, Carbon Dioxide 25.1, Anion Gap 14, BUN 59 H, C reatinine 8.72 H*, Estim Creat Clear Calc 17.42 L, Est GFR (MDRD) Non-Af 7 L, B UN/Creatinine Ratio 6.8 L, Glucose 185 H, Calcium 8.8, Phosphorus 4.0, Magnesium 1.9 06/23/25 07:50: POC Glucose 201 H Micro: Microbiology 06/22/25 15:04 Mucosa - Nasopharyngeal Respiratory Panel (PCR) - Final 06/22/25 14:40 Urine Catheter - Catheter Legionella Antigen - Final 06/22/25 14:40 Urine Catheter - Catheter Streptococcus pneumoniae Antigen (M - Final 06/22/25 11:45 Mucosa - Nasopharyngeal Coronavirus COVID-19 PCR - Final 06/22/25 09:25 Mucosa - Nose SARS-CoV-2, Influenza & RSV (PCR) - Final ABG Data ABG results: ABG 06/22/25 10:51 Specimen Type ART Sample Site R Radial pH 7.43 Bicarbonate Actual 29.4 H Total CO2 31 Base Excess 5 H O2 Saturation 95 O2 % 5.0 ABG pCO2 44.6 ABG pO2 74 L Nick Test Positive O2 Delivery Device Cannula Vent Mode Not entered Rhythm Strip Rhythm Strip: Sinus Rhythm Rate: 100 Ectopy: None Assessment and Plan . Assessment and plan: A/P 1. Shock: etiology not clear. Presumed 2/2 sepsis. No clear source. Will need repeat cardiac eval: check trop/ Check echo(echo with normal EF/valves last week). Weaned off vaso. Still on levophed 15 mcg. On stress dose steroids. 2. ID: source not clear. UA without bacteria/wbc. No clear signs of cellulits. AVF fistula normal in appearance and functioning. Continue antibxs. F/u cultures. 3. 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 Careful with volume removal given shock. 4. Hx of Kidney Tx: on tactrolimus 5. Encephalopathy: better today. CT not complete on admit. ? 2/2 hypotension/sepsis. Also on tacrolimus. 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 FEN: oral diet 8. Hearing loss: noted this admit. Will follow 9. PX: On AC 10. Resp Failure: acute/hypoxemic. On 3L. wean as tolerated. Hemanth Dodd MD cc time 50 minutes The entirety of this encounter was done via Telemedicine Physical Exam Narrative GEN:Awake, alert, NAD HEENT: o/p:clear Pupils:= NECK: Supple CV: RRR, no m/r/g CHEST: CTA ABD: soft, obese, NT EXT: no C/C. +edema, Left AVfistula without bulging/erythema SKIN: no regions of cellulitis FITO: NF The entirety of this encounter was done via Teleme Subjective Subjective remains on significant dose of vasopressors
--- NOTE | 2025-06-23 11:02 | NURSING ---
right femoral central line dressing changed at this time
[2025-06-23 12:11] LABS: Troponin T High Sensitivity 419 ng/L (<=22)
--- NOTE | 2025-06-23 12:16 | NURSING ---
pt c/o bilat shoulder pain 01/14 back of shoulders. pt states would like something stronger than tyelenol. pt states shoulder pain is chronic. [facility] records list shoulder pain as a comorbidity as of 09/2024. Dialysis Coordinator relayed these findings to the primary care RN.
[2025-06-23] MEDS: SEVELAMER CARBONATE 800 MG TABLET 2400 MG PO ×2 (13:13→16:26)
[2025-06-23] MEDS: Norepinephrine 8 MG in 0.9% Normal Saline (250mL Bag) 242 ML 28.1 MG CONT INF (13:19)
[2025-06-23 13:23] LABS: Troponin T High Sens 2 HR 424 ng/L (<=22)
--- NOTE | 2025-06-23 14:05 | CASEMGMT ---
Discharge Planning Updates sent via [facility] to [facility] with note asking for copies of any advanced directives (at SWs request). Selina Sylvester DC Planning Asst.
--- NOTE | 2025-06-23 14:10 | CASEMGMT ---
Advanced Directives Per [facility], pt has not completed any advanced directives. SW updated. Selina Sylvester DC Planning Asst.
--- NOTE | 2025-06-23 14:15 | PCM.CONS.R ---
Assessment & Plan Assessment/Plan (1) ESRD (end stage renal disease): PLAN: On hemodialysis Saturday, Saturday, Saturday schedule. Today potassium is on the higher side. Dialysis today, see orders. Will use 2K bath. Fluid removal as tolerated, blood pressure is on the lower side. He is currently alert, awake. Pressor requirements have improved.? Source of sepsis. Medication list reviewed, he is on tacrolimus in view of remote history of kidney transplant to prevent hyper acute rejection. However it seems he had been on dialysis for a while now, I think dose can be slowly reduced. 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 Management of suspected sepsis as per primary. HPI Consult Data Date of Consult: 06/23/25 HPI Narrative Reason for Consultation: ESRD HPI Narrative: CHINA GUILLEN, is a 39 M who presents To the hospital with septic shock. Nephrology on consultation in view of ESRD. ESRD on hemodialysis Saturday, Saturday, Saturday, at [facility] in [facility]. Primary automatic beading lathe operator is Dr. Wallace. Came in with hypotension, presumably sepsis related. Source unclear. This morning he was seen on dialysis, alert, awake, oriented. Does not offer any complaints, no shortness of breath, cough, fever, rash. He does have history of repeated UTI/pyelodue to suprapubic catheter. Pressor requirements are better since yesterday. WBC count has increased significantly. [facility] Medical History History of ESBL E. coli infection Anemia of chronic illness History of diabetes mellitus Anemia of chronic disease History of diabetes mellitus 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 disease Decubitus ulcer of ischial area Left patella fracture Chronic pain Chronic indwelling Hurst catheter Dialysis patient Kidney disease CPAP (continuous positive airway pressure) dependence Sleep apnea Hypertension Blind Encephalopathy Hyponatremia Hypertensive urgency Acute delirium Decubitus ulcer Abscess Left ischial pressure sore Open wound of left buttock with complication Current use of intermediate anticoagulation Acute hyperkalemia Acute alteration in mental status Phantom limb syndrome with pain Paraplegia Metabolic encephalopathy ESRD (end stage renal disease) on dialysis Hx of pulmonary embolus Type 2 diabetes mellitus End-stage renal disease on hemodialysis Anticoagulant long-term use History of deep vein thrombosis Anemia in chronic kidney disease, on chronic dialysis 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 H/O deep venous thrombosis Osteomyelitis of pelvic region Lives in assisted Anxiety Open wound Insulin dependent diabetes mellitus Uses wheelchair Injury of back 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 disease 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, stage 4 Neurogenic bowel Kidney transplant failure Dependence on renal dialysis Pressure ulcer of left heel, unspecified stage Gastro-esophageal reflux disease without esophagitis Other pericardial effusion (noninflammatory) Other pulmonary embolism without acute cor pulmonale Hypertensive heart and chronic kidney disease with heart failure and stage 1 through stage 4 chronic kidney disease, or unspecified chronic kidney disease Depression Hyperlipemia Hypothyroidism Anemia in chronic kidney disease Neuromuscular dysfunction of bladder, unspecified Paraplegia, incomplete Other acute osteomyelitis, left ankle and foot Home Medications ?Medication ?Instructions ?Recorded ?Last Taken ?Type dextrose 40 % oral gel (Glucose 15 g PO Q15M PRN HYPGLYCEMIA 01/02/23 Unknown History Gel) sennosides 8.6 mg-docusate sodium 1 tab-cap PO BID CONSTIPATION 01/02/23 06/22/25 History 50 mg capsule (Senna Plus) tacrolimus 1 mg capsule, 2 mg PO BID kidney transplant 01/02/23 06/22/25 05:15 History immediate-release (Prograf) failure sevelamer HCl 800 mg tablet 2,400 mg PO TID ESRD 04/21/23 06/22/25 05:15 History insulin lispro 100 unit/mL 1 sliding scale dose subcut TIDCM 03/22/24 06/21/25 16:20 History subcutaneous pen type 2 diabetes guaifenesin 100 mg/5 mL oral 200 mg PO Q4H PRN COUGH/CONGESTION 03/29/24 06/19/25 10:20 History liquid (Adult Tussin Chest Congestion) glucagon HCl 1 mg solution for 1 mg IM Q20M PRN HYPOGLYCEMIA 04/13/24 Unknown History injection (Glucagon (HCl) Emergency Kit) hydralazine 50 mg tablet 50 mg PO 4X/DAY BLOOD PRESSURE 04/13/24 06/22/25 05:15 History sodium phosphates 19 gram-7 118 ml RI BID PRN constipation 04/22/24 Unknown History gram/118 mL enema (Fleet Enema) insulin glargine 100 unit/mL (3 12 unit subcut QPM DM 06/27/24 06/21/25 History mL) subcutaneous pen (Lantus Solostar U-100 Insulin) insulin lispro 100 unit/mL 5 unit subcut TID DM 06/27/24 06/22/25 05:15 History subcutaneous solution apixaban 2.5 mg tablet (Eliquis) 2.5 mg PO BID KIDNEY DISEASE WITH 11/09/24 06/22/25 05:15 History HEART FAILURE duloxetine 30 mg capsule,delayed 60 mg PO QHS major depressive 11/09/24 06/21/25 21:10 History release disorder gabapentin 300 mg capsule 300 mg PO BID neuropathy 11/09/24 06/22/25 05:15 History clonidine HCl 0.2 mg tablet 0.2 mg PO BID hypertensive heart 02/19/25 06/21/25 21:10 History and chronic kidney disease atorvastatin 40 mg tablet 40 mg PO DAILY hyperlipidemia 03/01/25 06/21/25 21:10 History calcitriol 0.5 mcg capsule 0.5 mcg PO MOWEFR esrd received 03/01/25 06/21/25 05:10 History from dialysis carvedilol 25 mg tablet 50 mg PO BID heart failure and 03/01/25 06/22/25 05:15 History chronic kidney disease ivermectin 1 % topical cream 1 applic topical QHS for skin 03/01/25 06/21/25 21:10 History irritation levothyroxine 150 mcg tablet 150 mcg PO DAILY hypothyroidism 03/01/25 06/22/25 05:15 History metronidazole 1 % topical gel 1 applic topical DAILY PRN skin 03/01/25 Unknown History irritation midodrine 10 mg tablet 10 mg PO DAILY PRN hypotension 03/01/25 Unknown History ondansetron HCl 4 mg tablet 4 mg PO Q8H PRN PRN nausea and 03/01/25 06/15/25 12:20 History vomiting pantoprazole 40 mg tablet,delayed 40 mg PO DAILY gerd w/o esophagitis 03/01/25 06/22/25 05:15 History release ertapenem 1 gram solution for 0.5 g IV DAILY 2 doses 03/03/25 Unknown Rx injection acetaminophen 325 mg tablet 650 mg PO Q4H PRN fever or pain 06/22/25 06/22/25 05:15 History acetaminophen 650 mg rectal 650 mg RI Q4H PRN fever or pain 06/22/25 Unknown History suppository (Pain Reliever (acetaminophen)) aluminum-magnesium hydroxide 200 30 ml PO Q4H PRN GI distress 06/22/25 Unknown History mg-200 mg/5 mL oral suspension cholecalciferol (vitamin D3) 50 50 mcg PO QPM vitamin d deficiency 06/22/25 06/21/25 12:20 History mcg (2,000 unit) capsule clobetasol 0.05 % shampoo 1 applic topical SUTU scalp 06/22/25 06/20/25 10:25 History psoriosis clobetasol 0.05 % shampoo 1 applic topical TH 06/22/25 06/17/25 History magnesium hydroxide 400 mg/5 mL 30 ml PO DAILY PRN constipation 06/22/25 Unknown History oral suspension (Milk of Magnesia) melatonin 10 mg tablet 10 mg PO QHS insomnia 06/22/25 06/21/25 21:10 History trazodone 50 mg tablet 25 mg PO QHS insomnia 06/22/25 06/21/25 21:10 History vitamin B complex-vitamin C-folic 1 tab PO DAILY end stage renal 06/22/25 06/21/25 16:25 History acid 0.8 mg tablet (Renal-Morales) disease Allergy/AdvReac Type Severity Reaction Status Date / Time No Known Allergies Allergy Verified 06/22/25 09:06 Family History Mother Hypertension Diabetes Father Hypertension Diabetes Surgical History History of kidney transplant S/P unilateral above knee amputation S/P foot surgery S/P colostomy Social History housing: assisted Smoking Status: Never smoker alcohol intake: never substance use type: does not use ROS ROS Narrative negative except above Physical Exam Narrative Alert awake oriented x 3 no obvious distress no pallor no icterus no JVD s1s2 no murmurs lungs clear abdomen soft no organomegaly Lab / Micro Data 06/23/25 03:40 06/23/25 03:40 Labs: Laboratory Results - last 24 hr 06/22/25 12:00: POC Glucose 65 L 06/22/25 14:15: Lactic Acid 2.3 H* 06/22/25 14:25: POC Glucose 100 06/22/25 14:40: Urine Color Red, Urine Clarity Turbid, Urine pH 7.0, Ur Specific [place] 1.010, Urine Protein 500 H, Urine Glucose (UA) Normal, Urine Ketones Negative, Urine Occult Blood 250 H, Urine Nitrite Negative, Urine Bilirubin 1 H, Urine Urobilinogen Normal, Ur Leukocyte Esterase 500 H, Urine RBC > 100 SEEN, Urine WBC 0 SEEN, Ur Squamous Epith Cells 0-5 SEEN, Urine Bacteria 0 SEEN, Urine Mucus 0 SEEN 06/22/25 16:02: POC Glucose 89 06/22/25 21:54: POC Glucose 125 H 06/23/25 03:40: WBC 31.6 H*, RBC 3.16 L, Hgb 9.8 L, Hct 31.8 L, MCV 100.6 H, MCH 31.0, MCHC 30.8 L, RDW Std Deviation 53.2 H, RDW Coeff of Shanta 14.3, Plt Count 174, MPV 10.6, Neut % (Auto) Not Reportable, Absolute Neuts (auto) 29.7 H, Absolute Lymphs (auto) 0.63 L, Total Counted 100, Neutrophils % (Manual) 90 H, Band Neutrophils % 4, Lymphocytes % (Manual) 2 L, Monocytes % (Manual) 4, Differential Comment SCANNED, Diff Path Review Reviewed, Platelet Estimate ADEQUATE, Plt Morphology Comment LARGE, RBC Morphology NORM C+C, Sodium 137, Potassium 5.4 H, Chloride 97 L, Carbon Dioxide 25.1, Anion Gap 14, BUN 59 H, Creatinine 8.72 H*, Estim Creat Clear Calc 17.42 L, Est GFR (MDRD) Non-Af 7 L, BUN/Creatinine Ratio 6.8 L, Glucose 185 H, Calcium 8.8, Phosphorus 4.0, Magnesium 1.9 06/23/25 07:50: POC Glucose 201 H 06/23/25 10:53: Troponin T High Sens 419 H* 06/23/25 12:11: POC Glucose 146 H 06/23/25 12:49: Troponin T Hi Sens 2 Hr 424 H* Micro: Microbiology 06/22/25 15:04 Mucosa - Nasopharyngeal Respiratory Panel (PCR) - Final 06/22/25 14:40 Urine Catheter - Catheter Legionella Antigen - Final 06/22/25 14:40 Urine Catheter - Catheter Streptococcus pneumoniae Antigen (M - Final 06/22/25 11:45 Mucosa - Nasopharyngeal Coronavirus COVID-19 PCR - Final 06/22/25 09:25 Mucosa - Nose SARS-CoV-2, Influenza & RSV (PCR) - Final Rhythm Strip Rhythm Strip: Sinus Rhythm Rate: 100 Ectopy: None
[2025-06-23] MEDS: Meropenem 1 GM in 0.9% Normal Saline (100mL MB+) 100 ML IV (15:53)
[2025-06-23] MEDS: 0.9% Normal Saline (250mL Bag) 250 ML 15 ML IV (16:43)
[2025-06-23] MEDS: Vancomycin HCl 1,000 MG in 0.9% Normal Saline (250mL Bag) 250 ML 250 MG IV (16:43)
[2025-06-23] MEDS: Cholecalciferol (VIT D3) 25 MCG TABLET (1,000 UNITS) 50 MCG PO (21:12)
[2025-06-23] MEDS: Norepinephrine 8 MG in 0.9% Normal Saline (250mL Bag) 242 ML 37.5 MG CONT INF (21:20)
[2025-06-24] VITALS (43 sets, daily range): BP systolic 96–151; BP diastolic 39–97; PULSE 77–90; RESP 12–23; TEMP 35.9–37.2; O2SAT 97–100; BMI 43.0
[2025-06-24] MEDS: Norepinephrine 8 MG in 0.9% Normal Saline (250mL Bag) 242 ML 37.5 MG CONT INF (04:00)
[2025-06-24] MEDS: 0.9% Saline Lock 10 ML Syringe IV ×6 (04:19→23:36)
[2025-06-24 04:43] LABS: Hematocrit 29.2 % (40-54); Hemoglobin 9.2 g/dL (13.0-16.5); Immature Granulocytes Count 1.330 X10^3/uL (0.0-0.0); Mean Corp Hgb Conc 31.5 g/dL (32-36); Mean Corpuscular Volume 100.3 fL (80-94); Mean Platelet Vol. 10.5 fl (6.2-12.0); NRBC Flagged by Analyzer 0 % (0-5); POSITIVE DIFFERENTIAL YES; Platelet Count 165 K/mm3 (150-450); RBC Distribution Width CV 14.5 % (11.6-14.6); RBC Distribution Width SD 53.2 fl (35.1-43.9); Red Blood Count 2.91 M/mm3 (4.6-6.2); White Blood Count 27.1 K/mm3 (4.4-11.0)
[2025-06-24 05:25] LABS: Anion Gap 14 (5-15); BUN 53 mg/dL (4-19); BUN/Creat Ratio 7.4 RATIO (10-20); Calcium,Total 9.3 mg/dL (7.6-11.0); Carbon Dioxide 24.1 mmol/L (21.0-32.0); Chloride 97 mmol/L (98-108); Estimated Creatinine Clearance 21.19 ml/min (50-250); Glucose 214 mg/dL (70-99); Potassium 4.9 mmol/L (3.3-5.1)
--- NOTE | 2025-06-24 07:56 | PN.HOSP_ITS ---
Reason for Visit Chief Complaint: Altered mental status Subjective Subjective Patient seen overall clinical condition continues to improve. Patient much more interactive. Patient still remains on Levophed with plans to wean off. Patient had been started on morphine for pain did explain to patient morphine was affected his blood pressure morphine subsequently discontinued. Urine culture sent on admission still pending Objective Data Objective Data Vital Signs: Vital Signs Temp Pulse Resp BP Pulse Ox O2 Del Method O2 Flow Rate 98.9 F 87 18 123/56 H 98 Nasal Cannula 3 06/24/25 04:00 06/24/25 07:00 06/24/25 07:00 06/24/25 07:00 06/24/25 07:00 06/24/25 07:00 06/24/25 07:00 Oxygen Flow Rate (L/min) 3 Oxygen Delivery Method Nasal Cannula Weight: 147.2 kg Body Mass Index (BMI) 43.0 Intake & Output: Intake and Output for Last 24 Hours 06/22/25 06/23/25 06/24/25 23:59 23:59 23:59 Intake Total 4362.20 / 4365.33 3447.96 / 3586.71 449.11 / 449.11 Output Total 0 / 0 1560 / 1560 Balance 4362.20 / 4365.33 1887.96 / 2026.71 449.11 / 449.11 Lab / Micro Data 06/24/25 04:30 06/24/25 04:30 Labs: Laboratory Results - last 24 hr 06/23/25 03:40: Diff Path Review Reviewed 06/23/25 07:50: POC Glucose 201 H 06/23/25 10:53: Troponin T High Sens 419 H* 06/23/25 12:11: POC Glucose 146 H 06/23/25 12:49: Troponin T Hi Sens 2 Hr 424 H* 06/23/25 15:56: POC Glucose 170 H 06/23/25 21:10: POC Glucose 228 H 06/24/25 04:30: WBC 27.1 H, RBC 2.91 L, Hgb 9.2 L, Hct 29.2 L, MCV 100.3 H, MCH 31.6, MCHC 31.5 L, RDW Std Deviation 53.2 H, RDW Coeff of Shanta 14.5, Plt Count 165, MPV 10.5, Immature Gran % (Auto) 4.900 H, Neut % (Auto) 87.8 H, Lymph % (Auto) 2.8 L, [place] % (Auto) 4.3, Eos % (Auto) 0.0, Baso % (Auto) 0.2, Absolute Neuts (auto) 23.8 H, Absolute Lymphs (auto) 0.75 L, Nucleated RBC % 0, Sodium 135, Potassium 4.9, Chloride 97 L, Carbon Dioxide 24.1, Anion Gap 14, BUN 53 H, Creatinine 7.21 H, Estim Creat Clear Calc 21.19 L, Est GFR (MDRD) Non-Af 9 L, B UN/Creatinine Ratio 7.4 L, Glucose 214 H, Calcium 9.3 Micro: Microbiology 06/22/25 15:04 Mucosa - Nasopharyngeal Respiratory Panel (PCR) - Final 06/22/25 14:40 Urine Catheter - Catheter Legionella Antigen - Final 06/22/25 14:40 Urine Catheter - Catheter Streptococcus pneumoniae Antigen (M - Final 06/22/25 11:45 Mucosa - Nasopharyngeal Coronavirus COVID-19 PCR - Final 06/22/25 09:25 Mucosa - Nose SARS-CoV-2, Influenza & RSV (PCR) - Final Rhythm Strip Rhythm Strip: Sinus Rhythm Rate: 100 Ectopy: None Physical Exam Narrative GENERAL: Patient communicating HEENT: Atraumatic; normocephalic EYES; Anicteric, Normal Conjunctiva NECK; supple, normal thyroid, RESPIRATORY: Diminished to auscultation CARDIOVASCULAR: Regular S1 S2, GI: soft, normoactive bowel sounds, : No Renal angle tenderness; EXTREMITIES: No edema, no clubbing, MUSCULOSKELETAL: Left BKA NEURO: Awake and communicative no lateralizing sign g all extremities SKIN: No rash PSYCH; flat Assessment & Plan Assessment/Plan (1) Septic shock: PLAN: Plan Patient is a 39-year-old gentleman with multiple comorbidities including end- stage renal disease, recurrent PE and DVTs resident at an [facility] who presented with decreased level of sensorium with fever 1. Acute metabolic encephalopathy ? Secondary to sepsis of unspecified source. Patient has been admitted to the intensive care unit for subsequent management of suspected underlying etiology ? 06/23/2025; patient encephalopathy improving 2. Sepsis/Septic Shock ? Patient was found to have leukocytosis, hypotensive, fever with evidence of endorgan dysfunction?lactic acidosis as well as decreased level of sensorium. Cultures including viral respiratory panel and COVID assay sent. Patient was started on broad-spectrum antibiotic therapy with cefepime and vancomycin.. Patient has history of ESBL E: Coli cystitis. Urine cultures were therefore sent ? 06/23/2025; patient ended up being started on vasopressin and Levophed. Vasopressin has since been weaned off. Patient was also started on stress doses of hydrocortisone. Patient has a significant rise in his WBC count from 12.4 on admission to 31.6 ? 06/24/2025; patient WBC count remains elevated, urine and blood culture still pending 3. End-stage renal disease ? Patient has history of failed renal transplant. Currently on hemodialysis on Tuesdays and Saturdays consult placed to nephrology for dialysis orders ? 06/23/2025; scheduled to undergo dialysis today 4. Anemia ? Secondary to anemia of end-stage renal disease monitoring H&H with plans to transfuse or if patient is deemed to be symptomatic 5. Dyslipidemia -Patient is on statin therapy, continued at home dose 6. Hypothyroidism - Patient is on levothyroxine home dose continued 7. Hypertension - Blood pressure controlled, home medications continued with dose adjustment as needed 8. Class III obesity with BMI of 44 ? Complicating care weight loss advised 9. Diabetes mellitus type II -patient's oral hypoglycemics held. Placed on long acting insulin, Accu-Cheks a.c. and at bedtime and covered with sliding scale insulin 10. GERD ? On PPI 11. Depression with anxiety ? Patient is on duloxetine as well as trazodone currently being held given his decreased level of sensorium 12 history of left BKA ? Supportive care 13. History of previous VTE ? Patient is on apixaban did continue 14. Chronic sacral decubitus ? Consult placed wound care nurse for dressing change 15. Paroxysmal atrial fibrillation ? Rate controlled on carvedilol and is on systemic anticoagulation with apixaban 16. DVT prophylaxis ? Patient is already on systemic anticoagulation 17. Hyperkalemia ? Secondary to ESRD plan is to manage through dialysis 18. Status post colostomy ? Will continue with colostomy care 19. Elevated troponin ? Patient presentation not consistent with acute coronary syndrome. Elevated troponin secondary to demand ischemia from oxygen mismatch as a result of patient underlying infection and end-stage renal disease.Patient had a recent 2D echo on 06/10/2025 which demonstrated Normal LV size. The left ventricular ejection fraction is 55 %. Mild concentric left ventricular hypertrophy. Structurally normal valves.. Will continue with monitoring Charges/Coding Visit Charges Inpatient E&M: 30602 Subs Hosp L3
[2025-06-24] MEDS: SEVELAMER CARBONATE 800 MG TABLET 2400 MG PO ×3 (08:01→19:42)
--- NOTE | 2025-06-24 10:15 | PCM.CONS.GEN ---
Assessment & Plan Assessment/Plan (1) Septic shock: PLAN: Overall improved. Suspected urinary source. Ucx with ESBL ecoli and smaller amount of hafnia. Urine antigens neg, bcx neg. Will stop vanc, continue meropenem. Will follow, thank you (2) ESRD (end stage renal disease): HPI Consult Data Date of Consult: 06/24/25 HPI Narrative Reason for Consultation: septic shock HPI Narrative: CHINA GUILLEN, is a 39 M with ESRD, legal blindness, DM, [facility]CF resident, sent to ED 06/22/25 due to acute onset altered mental status and fever. He does not recall what happened. In ED, hypotensive, started on vanc/cefepime. Now on vanc/lupe, feeling better. Denies abd pain, dysuria, cough, SOB. Full ROS performed and neg except as noted above. FORMERLY [facility], 1928–1983 Medical History History of ESBL E. coli infection Anemia of chronic illness History of diabetes mellitus Anemia of chronic disease History of diabetes mellitus 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 disease Decubitus ulcer of ischial area Left patella fracture Chronic pain Chronic indwelling Hurst catheter Dialysis patient Kidney disease CPAP (continuous positive airway pressure) dependence Sleep apnea Hypertension Blind Encephalopathy Hyponatremia Hypertensive urgency Acute delirium Decubitus ulcer Abscess Left ischial pressure sore Open wound of left buttock with complication Current use of halfway anticoagulation Acute hyperkalemia Acute alteration in mental status Phantom limb syndrome with pain Paraplegia Metabolic encephalopathy ESRD (end stage renal disease) on dialysis Hx of pulmonary embolus Type 2 diabetes mellitus End-stage renal disease on hemodialysis Anticoagulant long-term use History of deep vein thrombosis Anemia in chronic kidney disease, on chronic dialysis Acute postoperative pain intermediate (current) use of 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 H/O deep venous thrombosis Osteomyelitis of pelvic region Lives in senior living Anxiety Open wound Insulin dependent diabetes mellitus Uses wheelchair Injury of back 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 disease 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, stage 4 Neurogenic bowel Kidney transplant failure Dependence on renal dialysis Pressure ulcer of left heel, unspecified stage Gastro-esophageal reflux disease without esophagitis Other pericardial effusion (noninflammatory) Other pulmonary embolism without acute cor pulmonale Hypertensive heart and chronic kidney disease with heart failure and stage 1 through stage 4 chronic kidney disease, or unspecified chronic kidney disease Depression Hyperlipemia Hypothyroidism Anemia in chronic kidney disease Neuromuscular dysfunction of bladder, unspecified Paraplegia, incomplete Other acute osteomyelitis, left ankle and foot Home Medications ?Medication ?Instructions ?Recorded ?Last Taken ?Type dextrose 40 % oral gel (Glucose 15 g PO Q15M PRN HYPGLYCEMIA 01/02/23 Unknown History Gel) sennosides 8.6 mg-docusate sodium 1 tab-cap PO BID CONSTIPATION 01/02/23 06/22/25 History 50 mg capsule (Senna Plus) tacrolimus 1 mg capsule, 2 mg PO BID kidney transplant 01/02/23 06/22/25 05:15 History immediate-release (Prograf) failure sevelamer HCl 800 mg tablet 2,400 mg PO TID ESRD 04/21/23 06/22/25 05:15 History insulin lispro 100 unit/mL 1 sliding scale dose subcut TIDCM 03/22/24 06/21/25 16:20 History subcutaneous pen type 2 diabetes guaifenesin 100 mg/5 mL oral 200 mg PO Q4H PRN COUGH/CONGESTION 03/29/24 06/19/25 10:20 History liquid (Adult Tussin Chest Congestion) glucagon HCl 1 mg solution for 1 mg IM Q20M PRN HYPOGLYCEMIA 04/13/24 Unknown History injection (Glucagon (HCl) Emergency Kit) hydralazine 50 mg tablet 50 mg PO 4X/DAY BLOOD PRESSURE 04/13/24 06/22/25 05:15 History sodium phosphates 19 gram-7 118 ml OH BID PRN constipation 04/22/24 Unknown History gram/118 mL enema (Fleet Enema) insulin glargine 100 unit/mL (3 12 unit subcut QPM DM 06/27/24 06/21/25 History mL) subcutaneous pen (Lantus Solostar U-100 Insulin) insulin lispro 100 unit/mL 5 unit subcut TID DM 06/27/24 06/22/25 05:15 History subcutaneous solution apixaban 2.5 mg tablet (Eliquis) 2.5 mg PO BID KIDNEY DISEASE WITH 11/09/24 06/22/25 05:15 History HEART FAILURE duloxetine 30 mg capsule,delayed 60 mg PO QHS major depressive 11/09/24 06/21/25 21:10 History release disorder gabapentin 300 mg capsule 300 mg PO BID neuropathy 11/09/24 06/22/25 05:15 History clonidine HCl 0.2 mg tablet 0.2 mg PO BID hypertensive heart 02/19/25 06/21/25 21:10 History and chronic kidney disease atorvastatin 40 mg tablet 40 mg PO DAILY hyperlipidemia 03/01/25 06/21/25 21:10 History calcitriol 0.5 mcg capsule 0.5 mcg PO MOWEFR esrd received 03/01/25 06/21/25 05:10 History from dialysis carvedilol 25 mg tablet 50 mg PO BID heart failure and 03/01/25 06/22/25 05:15 History chronic kidney disease ivermectin 1 % topical cream 1 applic topical QHS for skin 03/01/25 06/21/25 21:10 History irritation levothyroxine 150 mcg tablet 150 mcg PO DAILY hypothyroidism 03/01/25 06/22/25 05:15 History metronidazole 1 % topical gel 1 applic topical DAILY PRN skin 03/01/25 Unknown History irritation midodrine 10 mg tablet 10 mg PO DAILY PRN hypotension 03/01/25 Unknown History ondansetron HCl 4 mg tablet 4 mg PO Q8H PRN PRN nausea and 03/01/25 06/15/25 12:20 History vomiting pantoprazole 40 mg tablet,delayed 40 mg PO DAILY gerd w/o esophagitis 03/01/25 06/22/25 05:15 History release ertapenem 1 gram solution for 0.5 g IV DAILY 2 doses 03/03/25 Unknown Rx injection acetaminophen 325 mg tablet 650 mg PO Q4H PRN fever or pain 06/22/25 06/22/25 05:15 History acetaminophen 650 mg rectal 650 mg OH Q4H PRN fever or pain 06/22/25 Unknown History suppository (Pain Reliever (acetaminophen)) aluminum-magnesium hydroxide 200 30 ml PO Q4H PRN GI distress 06/22/25 Unknown History mg-200 mg/5 mL oral suspension cholecalciferol (vitamin D3) 50 50 mcg PO QPM vitamin d deficiency 06/22/25 06/21/25 12:20 History mcg (2,000 unit) capsule clobetasol 0.05 % shampoo 1 applic topical SUTU scalp 06/22/25 06/20/25 10:25 History psoriosis clobetasol 0.05 % shampoo 1 applic topical TH 06/22/25 06/17/25 History magnesium hydroxide 400 mg/5 mL 30 ml PO DAILY PRN constipation 06/22/25 Unknown History oral suspension (Milk of Magnesia) melatonin 10 mg tablet 10 mg PO QHS insomnia 06/22/25 06/21/25 21:10 History trazodone 50 mg tablet 25 mg PO QHS insomnia 06/22/25 06/21/25 21:10 History vitamin B complex-vitamin C-folic 1 tab PO DAILY end stage renal 06/22/25 06/21/25 16:25 History acid 0.8 mg tablet (Renal-Morales) disease Allergy/AdvReac Type Severity Reaction Status Date / Time No Known Allergies Allergy Verified 06/22/25 09:06 Family History Mother Hypertension Diabetes Father Hypertension Diabetes Surgical History History of kidney transplant S/P unilateral above knee amputation S/P foot surgery S/P colostomy Social History housing: senior living Smoking Status: Never smoker alcohol intake: never substance use type: does not use Physical Exam Const alert and no apparent distress General Appearance: cooperative HEENT normocephalic and head/scalp atraumatic Eyes Eyes Narrative: no redness or icterus Neck supple and No nodes Resp normal air movement and clear to auscultation bilaterally Cardio regular rate, regular rhythm and no murmurs GI soft to palpation, non-tender and non-distended Extremity General Extremity: edema Skin no rashes or lesions noted Neuro CN's II-XII intact bilaterally Lab / Micro Data Attestation: I reviewed the patient's lab results. 06/24/25 04:30 06/24/25 04:30 Labs: Laboratory Results - last 24 hr 06/23/25 03:40: Diff Path Review Reviewed 06/23/25 10:53: Troponin T High Sens 419 H* 06/23/25 12:11: POC Glucose 146 H 06/23/25 12:49: Troponin T Hi Sens 2 Hr 424 H* 06/23/25 15:56: POC Glucose 170 H 06/23/25 21:10: POC Glucose 228 H 06/24/25 04:30: WBC 27.1 H, RBC 2.91 L, Hgb 9.2 L, Hct 29.2 L, MCV 100.3 H, MCH 31.6, MCHC 31.5 L, RDW Std Deviation 53.2 H, RDW Coeff of Shanta 14.5, Plt Count 165, MPV 10.5, Immature Gran % (Auto) 4.900 H, Neut % (Auto) 87.8 H, Lymph % (Auto) 2.8 L, [place] % (Auto) 4.3, Eos % (Auto) 0.0, Baso % (Auto) 0.2, Absolute Neuts (auto) 23.8 H, Absolute Lymphs (auto) 0.75 L, Nucleated RBC % 0, Sodium 135, Potassium 4.9, Chloride 97 L, Carbon Dioxide 24.1, Anion Gap 14, BUN 53 H, Creatinine 7.21 H, Estim Creat Clear Calc 21.19 L, Est GFR (MDRD) Non-Af 9 L, BUN/Creatinine Ratio 7.4 L, Glucose 214 H, Calcium 9.3 06/24/25 07:59: POC Glucose 201 H Micro: Microbiology 06/22/25 09:30 Blood Culture (Wb) - Right Wrist Blood Culture - Preliminary No growth in 48 hours. 06/22/25 09:25 Blood Culture (Wb) - Arm Right Blood Culture - Preliminary No growth in 48 hours. 06/22/25 14:40 Suprapubic Tap Urine Culture - Preliminary ESBL Escherichia coli Hafnia alvei Rhythm Strip Rhythm Strip: Sinus Rhythm Rate: 100 Ectopy: None
[2025-06-24] MEDS: APIXABAN 2.5 MG TABLET (WCH) PO ×2 (10:18→20:26)
[2025-06-24] MEDS: Senna/Docusate Sodium 1 Tablet PO ×2 (10:19→20:26)
--- NOTE | 2025-06-24 11:13 | PN.RENAL_ITS ---
Subjective Subjective No new complaints today, WBC count is better. ID consult note reviewed. Objective Data Objective Data Vital Signs: Vital Signs Temp Pulse Resp BP Pulse Ox O2 Del Method O2 Flow Rate 98.1 F 85 17 107/43 L 97 Nasal Cannula 3 06/24/25 08:00 06/24/25 09:00 06/24/25 09:00 06/24/25 09:45 06/24/25 09:00 06/24/25 09:00 06/24/25 09:00 Oxygen Flow Rate (L/min) 3 Oxygen Delivery Method Nasal Cannula Weight: 147.2 kg Body Mass Index (BMI) 43.0 Intake & Output: Intake and Output for Last 24 Hours 06/22/25 06/23/25 06/24/25 23:59 23:59 23:59 Intake Total 4362.20 / 4365.33 3447.96 / 3586.71 717.92 / 717.92 Output Total 0 / 0 1560 / 1560 Balance 4362.20 / 4365.33 1887.96 / 2026.71 717.92 / 717.92 Lab / Micro Data 06/24/25 04:30 06/24/25 04:30 Labs: Laboratory Results - last 24 hr 06/23/25 03:40: Diff Path Review Reviewed 06/23/25 10:53: Troponin T High Sens 419 H* 06/23/25 12:11: POC Glucose 146 H 06/23/25 12:49: Troponin T Hi Sens 2 Hr 424 H* 06/23/25 15:56: POC Glucose 170 H 06/23/25 21:10: POC Glucose 228 H 06/24/25 04:30: WBC 27.1 H, RBC 2.91 L, Hgb 9.2 L, Hct 29.2 L, MCV 100.3 H, MCH 31.6, MCHC 31.5 L, RDW Std Deviation 53.2 H, RDW Coeff of Shanta 14.5, Plt Count 165, MPV 10.5, Immature Gran % (Auto) 4.900 H, Neut % (Auto) 87.8 H, Lymph % (Auto) 2.8 L, [place] % (Auto) 4.3, Eos % (Auto) 0.0, Baso % (Auto) 0.2, Absolute Neuts (auto) 23.8 H, Absolute Lymphs (auto) 0.75 L, Nucleated RBC % 0, Sodium 135, Potassium 4.9, Chloride 97 L, Carbon Dioxide 24.1, Anion Gap 14, BUN 53 H, Creatinine 7.21 H, Estim Creat Clear Calc 21.19 L, Est GFR (MDRD) Non-Af 9 L, B UN/Creatinine Ratio 7.4 L, Glucose 214 H, Calcium 9.3 06/24/25 07:59: POC Glucose 201 H Micro: Microbiology 06/22/25 09:30 Blood Culture (Wb) - Right Wrist Blood Culture - Preliminary No growth in 48 hours. 06/22/25 09:25 Blood Culture (Wb) - Arm Right Blood Culture - Preliminary No growth in 48 hours. 06/22/25 14:40 Suprapubic Tap Urine Culture - Preliminary ESBL Escherichia coli Hafnia alvei 06/22/25 15:04 Mucosa - Nasopharyngeal Respiratory Panel (PCR) - Final 06/22/25 14:40 Urine Catheter - Catheter Legionella Antigen - Final 06/22/25 14:40 Urine Catheter - Catheter Streptococcus pneumoniae Antigen (M - Final 06/22/25 11:45 Mucosa - Nasopharyngeal Coronavirus COVID-19 PCR - Final 06/22/25 09:25 Mucosa - Nose SARS-CoV-2, Influenza & RSV (PCR) - Final Rhythm Strip Rhythm Strip: Sinus Rhythm Rate: 100 Ectopy: None Physical Exam Narrative Alert awake oriented x 3 no obvious distress no pallor no icterus no JVD s1s2 no murmurs lungs clear abdomen soft no organomegaly Assessment & Plan Assessment/Plan (1) ESRD (end stage renal disease): PLAN: On hemodialysis Saturday, Saturday, Saturday schedule. Today potassium is on the higher side. Dialysis today, see orders. Will use 2K bath. Fluid removal as tolerated, blood pressure is on the lower side. He is currently alert, awake. Pressor requirements have improved.? Source of sepsis. Medication list reviewed, he is on tacrolimus in view of remote history of kidney transplant to prevent hyper acute rejection. However it seems he had been on dialysis for a while now, I think dose can be slowly reduced. This will have to be discussed with his primary traffic court referee. Management of suspected sepsis as per primary. 06/24/2025. Continue dialysis as per schedule. WBC count better. ID on consult.
--- NOTE | 2025-06-24 13:09 | PN.CC_ITS ---
Objective Data Objective Data Vital Signs: Vital Signs Last response 3 Temperature 36.7 C 06/24/25 08:00 Temperature Source Oral 06/24/25 08:00 Pulse Rate 87 06/24/25 12:00 Pulse Strength Weak (1+) 06/24/25 09:13 Respiratory Rate 17 06/24/25 09:00 Respiratory Effort Normal, Non-Labored 06/24/25 12:00 Respiratory Depth Normal 06/24/25 12:00 Respiratory Pattern Normal 06/24/25 12:00 Blood Pressure 107/43 L 06/24/25 09:45 Blood Pressure Mean 64 06/24/25 09:45 Blood Pressure Source Monitor 06/24/25 09:45 Blood Pressure Position Semi-Fowlers 06/24/25 09:45 Blood Pressure Location Right Forearm 06/24/25 09:45 Pulse Ox 97 06/24/25 09:00 Oxygen Delivery Method Nasal Cannula 06/24/25 12:00 Oxygen Flow Rate (L/min) 3 06/24/25 12:00 I&O: I&O Last 24 Hours 3 06/23/25 06/24/25 06/24/25 23:59 11:59 23:59 Intake Total 1683.25 / 3586.71 717.92 / 1197.92 480 / 1197.92 Output Total 1560 / 1560 10 Balance 123.25 / 2026.71 717.92 / 1187.92 470 / 1187.92 I&O: Total Stay 3 06/22/25 09:01 thru 06/24/25 12:34 Intake Total 9008.08 Output Total 1570 Balance 7438.08 Current Meds Ordered / Administered: Current meds ordered / Administered 3 Generic Name Dose Route Start Last Admin Trade Name Freq PRN Reason Stop Dose Admin Acetaminophen 1,000 mg 06/24/25 07:43 06/24/25 10:21 Acetaminophen 500 Mg Tablet PO 1,000 mg Q6H PRN PRN Administration Pain 1-10 Or Fever>100.7 Al Hydrox/Mg Hydrox/Simethicone 30 ml 06/22/25 12:25 Mag /Aluminum/Simeth [facility] Udc 30 Ml Oral.Susp PO Q4H PRN GI distress Apixaban 2.5 mg 06/22/25 22:00 06/24/25 10:18 Apixaban 2.5 Mg Tablet ([facility]) PO 2.5 mg BID TARUN Administration Atorvastatin Calcium 40 mg 06/23/25 10:00 06/24/25 10:19 Atorvastatin Calcium 40 Mg Tablet PO 40 mg DAILY TARUN Administration Calcitriol 0.5 mcg 06/23/25 10:00 06/23/25 08:17 Calcitriol 0.25 Mcg Capsule PO 0.5 mcg MoWeFr@1000 TARUN Administration Chlorhexidine Gluconate 1 each 06/23/25 10:00 06/23/25 23:43 Chlorhexidine Gluc 2% Cloth 1 Each [place]lette TOPICAL 1 each DAILY TARUN Administration Cholecalciferol 50 mcg 06/22/25 21:00 06/23/25 21:12 Cholecalciferol (Vit D3) 25 Mcg Tablet (1,000 Units) PO 50 mcg QPM TARUN Administration Glucagon 1 mg 06/22/25 12:12 Glucagon 1 Mg/Ml Syringe IM X1 PRN HYPOGLYCEMIA Protocol Guaifenesin 10 ml 06/22/25 12:12 Guaifenesin 10 Ml Udc (200mg/10ml) PO Q4H PRN COUGH/CONGESTION Hydrocortisone Sodium Succinate 50 mg 06/22/25 18:00 06/24/25 12:34 Hydrocortisone Sod Succinate 100 Mg/2 Ml Vial IV 50 mg Q6 TARUN Administration Dextrose 250 mls @ 0 mls/hr 06/22/25 12:12 06/22/25 16:00 Dextrose 10%-Water IV Infused .Q0M PRN Infusion HYPOGLYCEMIA Protocol As Directed Norepinephrine Bitartrate 8 mg 250 mls @ 9.375 mls/hr 06/22/25 13:30 06/24/25 09:45 / Sodium Chloride CONT INF 0 mcg/min .[id number] TARUN 0 mls/hr Protocol Titration 5 MCG/MIN Meropenem 1 gm/ Sodium 100 mls @ 33 mls/hr 06/22/25 14:40 06/23/25 19:02 Chloride IV Infused Q24@1600 TARUN Infusion Sodium Chloride 250 mls @ 15 mls/hr 06/22/25 15:47 06/23/25 20:51 IV Infused .[id number] PRN Infusion Saline Flush Sodium Chloride 250 mls @ 15 mls/hr 06/22/25 15:47 06/24/25 09:25 IV Infused .[id number] PRN Infusion Additional IVPB Infusion Insulin Human Lispro 0 unit 06/22/25 12:12 06/24/25 11:40 Insulin Lispro 100 Unit/Ml Insuln.Pen SC 4 units ACHS TARUN Administration Protocol Levothyroxine Sodium 150 mcg 06/23/25 06:00 06/24/25 05:02 Levothyroxine 150 Mcg Tablet PO 150 mcg DAILY@0600 TARUN Administration Midodrine 10 mg 06/23/25 09:00 06/24/25 11:39 Midodrine Hcl 5 Mg Tablet PO 10 mg TIDCM TARUN Administration Ondansetron HCl 4 mg 06/22/25 12:12 Ondansetron 4 Mg/2 Ml Vial IV Q8H PRN PRN NAUSEA/VOMITING Pantoprazole Sodium 40 mg 06/23/25 10:00 06/24/25 10:19 Pantoprazole Sodium 40 Mg Tablet PO 40 mg DAILY TARUN Administration Senna/Docusate Sodium 1 tablet 06/22/25 22:00 06/24/25 10:19 Senna/Docusate Sodium 1 Tablet PO 1 tablet BID TARUN Administration Sevelamer Carbonate 2,400 mg 06/22/25 17:00 06/24/25 11:38 Sevelamer Carbonate 800 Mg Tablet PO 2,400 mg TIDCM TARUN Administration Sodium Chloride 10 - 40 ml 06/22/25 14:11 06/24/25 05:05 0.9% Saline Lock 10 Ml Syringe IV 10 ml UD PRN Administration Open End PICC Flush Sodium Chloride 10 - 40 ml 06/22/25 14:11 06/23/25 00:06 0.9 % Nacl (Sterile) Posiflush 10 Ml IV 10 ml UD PRN Administration Port access or dressing change Sodium Chloride 10 - 40 ml 06/22/25 14:11 06/24/25 12:34 0.9% Saline Lock 10 Ml Syringe IV 20 ml UD PRN Administration SALINE FLUSH Tacrolimus 1 mg 06/24/25 22:00 Tacrolimus Anhydrous 1 Mg Capsule PO BID [facility] Lab / Micro Data 06/24/25 04:30 06/24/25 04:30 Labs: Laboratory Results - last 24 hr 06/23/25 12:49: Troponin T Hi Sens 2 Hr 424 H* 06/23/25 15:56: POC Glucose 170 H 06/23/25 21:10: POC Glucose 228 H 06/24/25 04:30: WBC 27.1 H, RBC 2.91 L, Hgb 9.2 L, Hct 29.2 L, MCV 100.3 H, MCH 31.6, MCHC 31.5 L, RDW Std Deviation 53.2 H, RDW Coeff of Shanta 14.5, Plt Count 165, MPV 10.5, Immature Gran % (Auto) 4.900 H, Neut % (Auto) 87.8 H, Lymph % (Auto) 2.8 L, [place] % (Auto) 4.3, Eos % (Auto) 0.0, Baso % (Auto) 0.2, Absolute Neuts (auto) 23.8 H, Absolute Lymphs (auto) 0.75 L, Nucleated RBC % 0, Sodium 135, Potassium 4.9, Chloride 97 L, Carbon Dioxide 24.1, Anion Gap 14, BUN 53 H, Creatinine 7.21 H, Estim Creat Clear Calc 21.19 L, Est GFR (MDRD) Non-Af 9 L, B UN/Creatinine Ratio 7.4 L, Glucose 214 H, Calcium 9.3 06/24/25 07:59: POC Glucose 201 H 06/24/25 11:40: POC Glucose 217 H Micro: Microbiology 06/22/25 09:30 Blood Culture (Wb) - Right Wrist Blood Culture - Preliminary No growth in 48 hours. 06/22/25 09:25 Blood Culture (Wb) - Arm Right Blood Culture - Preliminary No growth in 48 hours. 06/22/25 14:40 Suprapubic Tap Urine Culture - Preliminary ESBL Escherichia coli Hafnia alvei Rhythm Strip Rhythm Strip: Sinus Rhythm Rate: 100 Ectopy: None Imaging Radiology Impression Echocardiogram 06/23/25 10:37 Interpretation Summary The study was technically difficult. Mild concentric left ventricular hypertrophy. The left ventricular ejection fraction is 55 %. Stage 1 diastolic dysfunction. Ordering Physician: Hemanth Dodd Referring Physician: Justyn Rosario Performed By: Gallito, Adela, RDCS, RVT Assessment and Plan . Assessment and plan: A/P 1. Shock: Septic. Source not clear 06/23 but urine cx : +. echo unchanged from 2 weeks ago. Now off pressors. n stress dose steroids. 2. UTI: UA without bacteria/wbc but grew out ESBL Ecoli and Hafnia sp. Both MDR. Now on merrem. ID to eval. 3. ESRD: Received RN NEW GRADUATE yesterday. 4. Hx of Kidney Tx: on tactrolimus 5. Encephalopathy: better. CT not complete on admit. ? 2/2 hypotension/sepsis. Also on tacrolimus. 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 FEN: oral diet 8. Hearing loss: noted this admit. Will follow 9. PX: On AC 10. Resp Failure: acute/hypoxemic. On 3L. wean as tolerated. Will follow peripherally Hemanth Dodd MD cc time 50 minutes The entirety of this encounter was done via Telemedicine Physical Exam Narrative Critical Care Time: The entirety of this encounter was done via Telemedicine Physical Exam Narrative GEN:Awake, alert, NAD HEENT: o/p:clear Pupils:= NECK: Supple CV: RRR, no m/r/g CHEST: CTA ABD: soft, obese, NT EXT: no C/C. +edema, Left AVfistula without bulging/erythema SKIN: no regions of cellulitis FITO: NF The entirety of this encounter was done via Teleme Subjective Subjective off pressors
--- NOTE | 2025-06-24 13:43 | PCM.PN.BLA ---
Progress Note Patient with persistent oozing at his right femoral CVC access site. Sandbag yesterday did not appear to be fully effective. Nursing today reports that they took down the dressing earlier and that the amount of bleeding now subsequently appears less. Dressing was taken down at bedside with nursing and all clot was removed from the area with chlorhexidine scrubbing. I found a very small amount of oozing coming from the line insertion site. Direct pressure was applied and this appeared to slow any bleeding even further. To try to safeguard against further issues I cut a small square of Surgicel and placed this over the insertion site beneath a new chlorhexidine line dressing which was applied after reprepping the area with a second chlorhexidine swab. Then the top of this dressing I placed a folded 4 x 4 gauze and a OpSite dressing to create a compression dressing to further discourage any further bleeding. Please notify surgery of any ongoing concerns. Dr. Pena will be rounding in my absence tomorrow.
[2025-06-24] MEDS: Meropenem 1 GM in 0.9% Normal Saline (100mL MB+) 100 ML IV (16:06)
[2025-06-24] MEDS: Cholecalciferol (VIT D3) 25 MCG TABLET (1,000 UNITS) 50 MCG PO (20:26)
[2025-06-25] VITALS (20 sets, daily range): BP systolic 101–148; BP diastolic 51–67; PULSE 77–85; RESP 12–22; TEMP 36.3–36.8; O2SAT 96–100; BMI 43.8; BMI 42.9; BMI 42.0
[2025-06-25 04:00] LABS: Hematocrit 29.4 % (40-54); Hemoglobin 9.3 g/dL (13.0-16.5); Immature Granulocytes Count 0.520 X10^3/uL (0.0-0.0); Mean Corp Hgb Conc 31.6 g/dL (32-36); Mean Corpuscular Volume 99.7 fL (80-94); Mean Platelet Vol. 10.9 fl (6.2-12.0); NRBC Flagged by Analyzer 0 % (0-5); POSITIVE DIFFERENTIAL YES; Platelet Count 171 K/mm3 (150-450); RBC Distribution Width CV 14.6 % (11.6-14.6); RBC Distribution Width SD 53.1 fl (35.1-43.9); Red Blood Count 2.95 M/mm3 (4.6-6.2); White Blood Count 25.8 K/mm3 (4.4-11.0)
[2025-06-25 04:05] LABS: Differential Indicated SCAN CRITERIA MET
[2025-06-25 04:44] LABS: Anion Gap 14 (5-15); BUN 77 mg/dL (4-19); BUN/Creat Ratio 9.0 RATIO (10-20); Calcium,Total 9.1 mg/dL (7.6-11.0); Carbon Dioxide 23.4 mmol/L (21.0-32.0); Chloride 95 mmol/L (98-108); Estimated Creatinine Clearance 17.94 ml/min (50-250); Glucose 335 mg/dL (70-99); Potassium 5.5 mmol/L (3.3-5.1)
[2025-06-25] MEDS: 0.9% Saline Lock 10 ML Syringe IV (05:31)
[2025-06-25] MEDS: CHLORHEXIDINE GLUC 2% CLOTH 1 EACH TOWELETTE TOPICAL (05:31)
--- NOTE | 2025-06-25 06:20 | PN.SURG_ITS ---
Subjective Subjective Patient resting comfortably. Discussed with ICU nurse. Nurse states that they have had no further bleeding issues from the central line and this possibly may even be removed later today as anticipate possible discharge back to retirement. Objective Data Objective Data Vital Signs: Vital Signs Temp Pulse Resp BP Pulse Ox O2 Del Method O2 Flow Rate 97.8 F 78 20 H 101/62 96 Nasal Cannula 3 06/25/25 04:00 06/25/25 04:00 06/25/25 04:00 06/25/25 04:00 06/25/25 04:00 06/25/25 04:00 06/25/25 04:00 Oxygen Flow Rate (L/min) 3 Oxygen Delivery Method Nasal Cannula Weight: 330 lb 7.567 oz Body Mass Index (BMI) 43.8 Intake & Output: Intake and Output for Last 24 Hours 06/23/25 06/24/25 06/25/25 23:59 23:59 23:59 Intake Total 3447.96 / 3586.71 1897.92 / 1897.92 400 / 400 Output Total 1560 / 1560 Balance 1887.96 / 2026.71 1887.92 / 1887.92 400 / 400 Lab / Micro Data 06/25/25 03:35 06/25/25 03:35 Labs: Laboratory Results - last 24 hr 06/24/25 07:59: POC Glucose 201 H 06/24/25 11:40: POC Glucose 217 H 06/24/25 15:58: POC Glucose 244 H 06/24/25 20:24: POC Glucose 257 H 06/25/25 03:35: WBC 25.8 H, RBC 2.95 L, Hgb 9.3 L, Hct 29.4 L, MCV 99.7 H, MCH 31.5, MCHC 31.6 L, RDW Std Deviation 53.1 H, RDW Coeff of Shanta 14.6, Plt Count 171, MPV 10.9, Immature Gran % (Auto) 2.000 H, Neut % (Auto) 91.5 H, Lymph % (Auto) 3.1 L, [place] % (Auto) 3.2, Eos % (Auto) 0.0, Baso % (Auto) 0.2, Absolute Neuts (auto) 23.6 H, Absolute Lymphs (auto) 0.81 L, Nucleated RBC % 0, Sodium 133, Potassium 5.5 H, Chloride 95 L, Carbon Dioxide 23.4, Anion Gap 14, BUN 77 H , Creatinine 8.52 H*, Estim Creat Clear Calc 17.94 L, Est GFR (MDRD) Non-Af 8 L, BUN/Creatinine Ratio 9.0 L, Glucose 335 H, Calcium 9.1 Micro: Microbiology 06/22/25 09:30 Blood Culture (Wb) - Right Wrist Blood Culture - Preliminary No growth in 48 hours. 06/22/25 09:25 Blood Culture (Wb) - Arm Right Blood Culture - Preliminary No growth in 48 hours. 06/22/25 14:40 Suprapubic Tap Urine Culture - Preliminary ESBL Escherichia coli Hafnia alvei 06/22/25 15:04 Mucosa - Nasopharyngeal Respiratory Panel (PCR) - Final 06/22/25 14:40 Urine Catheter - Catheter Legionella Antigen - Final 06/22/25 14:40 Urine Catheter - Catheter Streptococcus pneumoniae Antigen (M - Final 06/22/25 11:45 Mucosa - Nasopharyngeal Coronavirus COVID-19 PCR - Final 06/22/25 09:25 Mucosa - Nose SARS-CoV-2, Influenza & RSV (PCR) - Final Radiography Diagnostic Testing: Radiology Impression Echocardiogram 06/23/25 10:37 Interpretation Summary The study was technically difficult. Mild concentric left ventricular hypertrophy. The left ventricular ejection fraction is 55 %. Stage 1 diastolic dysfunction. Ordering Physician: Hemanth Dodd Referring Physician: Jsutyn Rosario Performed By: Adela Conti, LATHA, RVT Rhythm Strip Rhythm Strip: Sinus Rhythm Rate: 100 Ectopy: None Physical Exam Narrative Patient asleep and in no acute distress Assessment & Plan Assessment/Plan (1) Poor venous access: PLAN: Plan Patient is a 39-year-old male with recent central line insertion with some issues with bleeding around the line however this now seems to be resolved. According to ICU nurse, this line may be removed later today. I do not anticipate any further surgical needs. Please contact us if any other issues arise. Dr. Otto to cover weekend. Otherwise we will sign off
--- NOTE | 2025-06-25 07:32 | PCM.PN.HOSP ---
Reason for Visit Chief Complaint: Altered mental status Subjective Subjective Patient seen back to baseline.. Case discussed with ID plan is for patient to be discharged back to ECF on ertapenem 1 g with dialysis for a week Objective Data Objective Data Vital Signs: Vital Signs Temp Pulse Resp BP Pulse Ox O2 Del Method O2 Flow Rate 97.8 F 78 20 H 101/62 96 Nasal Cannula 3 06/25/25 04:00 06/25/25 04:00 06/25/25 04:00 06/25/25 04:00 06/25/25 04:00 06/25/25 04:00 06/25/25 04:00 Oxygen Flow Rate (L/min) 3 Oxygen Delivery Method Nasal Cannula Weight: 149.9 kg Body Mass Index (BMI) 43.8 Intake & Output: Intake and Output for Last 24 Hours 06/23/25 06/24/25 06/25/25 23:59 23:59 23:59 Intake Total 3447.96 / 3586.71 1897.92 / 1897.92 400 / 400 Output Total 1560 / 1560 Balance 1887.96 / 2026.71 1887.92 / 1887.92 400 / 400 Lab / Micro Data 06/25/25 03:35 06/25/25 03:35 Labs: Laboratory Results - last 24 hr 06/24/25 07:59: POC Glucose 201 H 06/24/25 11:40: POC Glucose 217 H 06/24/25 15:58: POC Glucose 244 H 06/24/25 20:24: POC Glucose 257 H 06/25/25 03:35: WBC 25.8 H, RBC 2.95 L, Hgb 9.3 L, Hct 29.4 L, MCV 99.7 H, MCH 31.5, MCHC 31.6 L, RDW Std Deviation 53.1 H, RDW Coeff of Shanta 14.6, Plt Count 171, MPV 10.9, Immature Gran % (Auto) 2.000 H, Neut % (Auto) 91.5 H, Lymph % (Auto) 3.1 L, [place] % (Auto) 3.2, Eos % (Auto) 0.0, Baso % (Auto) 0.2, Absolute Neuts (auto) 23.6 H, Absolute Lymphs (auto) 0.81 L, Nucleated RBC % 0, Sodium 133, Potassium 5.5 H, Chloride 95 L, Carbon Dioxide 23.4, Anion Gap 14, BUN 77 H, Creatinine 8.52 H*, Estim Creat Clear Calc 17.94 L, Est GFR (MDRD) Non-Af 8 L, BUN/Creatinine Ratio 9.0 L, Glucose 335 H, Calcium 9.1 Micro: Microbiology 06/22/25 09:30 Blood Culture (Wb) - Right Wrist Blood Culture - Preliminary No growth in 48 hours. 06/22/25 09:25 Blood Culture (Wb) - Arm Right Blood Culture - Preliminary No growth in 48 hours. 06/22/25 14:40 Suprapubic Tap Urine Culture - Preliminary ESBL Escherichia coli Hafnia alvei 06/22/25 15:04 Mucosa - Nasopharyngeal Respiratory Panel (PCR) - Final 06/22/25 14:40 Urine Catheter - Catheter Legionella Antigen - Final 06/22/25 14:40 Urine Catheter - Catheter Streptococcus pneumoniae Antigen (M - Final 06/22/25 11:45 Mucosa - Nasopharyngeal Coronavirus COVID-19 PCR - Final 06/22/25 09:25 Mucosa - Nose SARS-CoV-2, Influenza & RSV (PCR) - Final Radiography Diagnostic Testing: Radiology Impression Echocardiogram 06/23/25 10:37 Interpretation Summary The study was technically difficult. Mild concentric left ventricular hypertrophy. The left ventricular ejection fraction is 55 %. Stage 1 diastolic dysfunction. Ordering Physician: Hemanth Dodd Referring Physician: Justyn Rosario Performed By: Adela Conti, RDCS, RVT Rhythm Strip Rhythm Strip: Sinus Rhythm Rate: 100 Ectopy: None Physical Exam Narrative GENERAL: Patient communicating HEENT: Atraumatic; normocephalic EYES; Anicteric, Normal Conjunctiva NECK; supple, normal thyroid, RESPIRATORY: Diminished to auscultation CARDIOVASCULAR: Regular S1 S2, GI: soft, normoactive bowel sounds, : No Renal angle tenderness; EXTREMITIES: No edema, no clubbing, MUSCULOSKELETAL: Left BKA NEURO: Awake and communicative no lateralizing sign g all extremities SKIN: No rash PSYCH; flat Assessment & Plan Assessment/Plan (1) Septic shock: PLAN: Plan Patient is a 39-year-old gentleman with multiple comorbidities including end-stage renal disease, recurrent PE and DVTs resident at an [facility] who presented with decreased level of sensorium with fever 1. Acute metabolic encephalopathy ? Secondary to sepsis of unspecified source. Patient has been admitted to the intensive care unit for subsequent management of suspected underlying etiology ? 06/23/2025; patient encephalopathy improving 2. Sepsis/Septic Shock secondary to UTI with ESBL E. coli ? Patient was found to have leukocytosis, hypotensive, fever with evidence of endorgan dysfunction?lactic acidosis as well as decreased level of sensorium. Cultures including viral respiratory panel and COVID assay sent. Patient was started on broad-spectrum antibiotic therapy with cefepime and vancomycin.. Patient has history of ESBL E: Coli cystitis. Urine cultures were therefore sent ? 06/23/2025; patient ended up being started on vasopressin and Levophed. Vasopressin has since been weaned off. Patient was also started on stress doses of hydrocortisone. Patient has a significant rise in his WBC count from 12.4 on admission to 31.6 ? 06/24/2025; patient WBC count remains elevated, urine and blood culture still pending ? 06/25/2025;Case discussed with ID plan is for patient to be discharged back to ECF on ertapenem 1 g with dialysis for a weeek 3. End-stage renal disease ? Patient has history of failed renal transplant. Currently on hemodialysis on Tuesdays and Saturdays consult placed to nephrology for dialysis orders ? 06/23/2025; scheduled to undergo dialysis today 4. Anemia ? Secondary to anemia of end-stage renal disease monitoring H&H with plans to transfuse or if patient is deemed to be symptomatic 5. Dyslipidemia -Patient is on statin therapy, continued at home dose 6. Hypothyroidism - Patient is on levothyroxine home dose continued 7. Hypertension - Blood pressure controlled, home medications continued with dose adjustment as needed 8. Class III obesity with BMI of 44 ? Complicating care weight loss advised 9. Diabetes mellitus type II -patient's oral hypoglycemics held. Placed on long acting insulin, Accu-Cheks a.c. and at bedtime and covered with sliding scale insulin 10. GERD ? On PPI 11. Depression with anxiety ? Patient is on duloxetine as well as trazodone currently being held given his decreased level of sensorium 12 history of left BKA ? Supportive care 13. History of previous VTE ? Patient is on apixaban did continue 14. Chronic sacral decubitus ? Consult placed wound care nurse for dressing change 15. Paroxysmal atrial fibrillation ? Rate controlled on carvedilol and is on systemic anticoagulation with apixaban 16. DVT prophylaxis ? Patient is already on systemic anticoagulation 17. Hyperkalemia ? Secondary to ESRD plan is to manage through dialysis 18. Status post colostomy ? Will continue with colostomy care 19. Elevated troponin ? Patient presentation not consistent with acute coronary syndrome. Elevated troponin secondary to demand ischemia from oxygen mismatch as a result of patient underlying infection and end-stage renal disease.Patient had a recent 2D echo on 06/10/2025 which demonstrated Normal LV size. The left ventricular ejection fraction is 55 %. Mild concentric left ventricular hypertrophy. Structurally normal valves.. Will continue with monitoring
[2025-06-25] MEDS: SEVELAMER CARBONATE 800 MG TABLET 2400 MG PO ×2 (07:51→13:40)
[2025-06-25] MEDS: Senna/Docusate Sodium 1 Tablet PO (07:54)
[2025-06-25] MEDS: APIXABAN 2.5 MG TABLET (WCH) PO (07:54)
--- NOTE | 2025-06-25 08:38 | PCM.DC.SUM ---
Providers Date of Admission: 06/22/25 Date of Discharge: 06/25/25 Primary Care Physician: Dr. Vanessa Hutchins MD Consultations 06/22/25 12:12 Consult: [employer] / Pulmonary Medicine Routine Consulting Provider: Intensivists/Pulmonary Med Reason for Consult: sepsis EMERGENT Consult: No Notified: Yes Date Notified: 06/22/25 Time Notified: 10:39 Method of Notification: Answering Service 06/22/25 12:18 Consult: General Surgery Routine Consulting Provider: Benedicto Aaron Reason for Consult: cental venous access EMERGENT Consult: No Notified: Yes Date Notified: 06/22/25 Time Notified: 12:19 Method of Notification: Text 06/22/25 14:32 Consult: Nephrology Routine Consulting Provider: Ansley Peña Reason for Consult: esrd EMERGENT Consult: No Notified: Yes Date Notified: 06/22/25 Time Notified: 15:08 Method of Notification: Answering Service 06/24/25 08:29 Consult: Infectious Disease Routine Consulting Provider: Jabari Medeiros Reason for Consult: UTI EMERGENT Consult: No Notified: Yes Date Notified: 06/24/25 Time Notified: 08:30 Method of Notification: Text Reason For Visit: ACUTE METABOLIC ENCEPHALOPATHY Diagnosis Discharge Diagnosis (1) Septic shock: Status: Acute Code(s): A41.9 - Sepsis, unspecified organism; R65.21 - Severe sepsis with septic shock Plan Patient is a 39-year-old gentleman with multiple comorbidities including end-stage renal disease, recurrent PE and DVTs resident at an [facility] who presented with decreased level of sensorium with fever 1. Acute metabolic encephalopathy ? Secondary to sepsis of unspecified source. Patient has been admitted to the intensive care unit for subsequent management of suspected underlying etiology ? 06/23/2025; patient encephalopathy improving 2. Sepsis/Septic Shock secondary to UTI with ESBL E. coli and Pseudomonas ? Patient was found to have leukocytosis, hypotensive, fever with evidence of endorgan dysfunction?lactic acidosis as well as decreased level of sensorium. Cultures including viral respiratory panel and COVID assay sent. Patient was started on broad-spectrum antibiotic therapy with cefepime and vancomycin.. Patient has history of ESBL E: Coli cystitis. Urine cultures were therefore sent ? 06/23/2025; patient ended up being started on vasopressin and Levophed. Vasopressin has since been weaned off. Patient was also started on stress doses of hydrocortisone. Patient has a significant rise in his WBC count from 12.4 on admission to 31.6 ? 06/24/2025; patient WBC count remains elevated, urine and blood culture still pending ? 06/25/2025;Case discussed with ID plan is for patient to be discharged back to ECF on meropenem 1 g with dialysis for a week 3. End-stage renal disease ? Patient has history of failed renal transplant. Currently on hemodialysis on Tuesdays and Saturdays consult placed to nephrology for dialysis orders ? 06/23/2025; scheduled to undergo dialysis today 4. Anemia ? Secondary to anemia of end-stage renal disease monitoring H&H with plans to transfuse or if patient is deemed to be symptomatic 5. Dyslipidemia -Patient is on statin therapy, continued at home dose 6. Hypothyroidism - Patient is on levothyroxine home dose continued 7. Hypertension - Blood pressure controlled, home medications continued with dose adjustment as needed 8. Class III obesity with BMI of 44 ? Complicating care weight loss advised 9. Diabetes mellitus type II -patient's oral hypoglycemics held. Placed on long acting insulin, Accu-Cheks a.c. and at bedtime and covered with sliding scale insulin 10. GERD ? On PPI 11. Depression with anxiety ? Patient is on duloxetine as well as trazodone currently being held given his decreased level of sensorium 12 history of left BKA ? Supportive care 13. History of previous VTE ? Patient is on apixaban did continue 14. Chronic sacral decubitus ? Consult placed wound care nurse for dressing change 15. Paroxysmal atrial fibrillation ? Rate controlled on carvedilol and is on systemic anticoagulation with apixaban 16. DVT prophylaxis ? Patient is already on systemic anticoagulation 17. Hyperkalemia ? Secondary to ESRD plan is to manage through dialysis 18. Status post colostomy ? Will continue with colostomy care 19. Elevated troponin ? Patient presentation not consistent with acute coronary syndrome. Elevated troponin secondary to demand ischemia from oxygen mismatch as a result of patient underlying infection and end-stage renal disease.Patient had a recent 2D echo on 06/10/2025 which demonstrated Normal LV size. The left ventricular ejection fraction is 55 %. Mild concentric left ventricular hypertrophy. Structurally normal valves.. Will continue with monitoring 20. Marked leukocytosis ? Secondary to concomitant use of hydrocortisone. Repeat CBC with differential ordered as outpatient to be performed by patient ECF Medications at Discharge Home Medications dextrose 40 % oral gel (Glucose Gel) 15 g PO Q15M PRN HYPGLYCEMIA 01/02/23 sennosides 8.6 mg-docusate sodium 50 mg capsule (Senna Plus) 1 tab-cap PO BID CONSTIPATION 01/02/23 tacrolimus 1 mg capsule, immediate-release (Prograf) 2 mg PO BID kidney transplant failure 01/02/23 sevelamer HCl 800 mg tablet 2,400 mg PO TID ESRD 04/21/23 insulin lispro 100 unit/mL subcutaneous pen 1 sliding scale dose subcut TIDCM type 2 diabetes 03/22/24 guaifenesin 100 mg/5 mL oral liquid (Adult Tussin Chest Congestion) 200 mg PO Q4H PRN COUGH/CONGESTION 03/29/24 glucagon HCl 1 mg solution for injection (Glucagon (HCl) Emergency Kit) 1 mg IM Q20M PRN HYPOGLYCEMIA 04/13/24 hydralazine 50 mg tablet 50 mg PO 4X/DAY BLOOD PRESSURE 04/13/24 sodium phosphates 19 gram-7 gram/118 mL enema (Fleet Enema) 118 ml AZ BID PRN constipation 04/22/24 insulin glargine 100 unit/mL (3 mL) subcutaneous pen (Lantus Solostar U-100 Insulin) 12 unit subcut QPM DM 06/27/24 insulin lispro 100 unit/mL subcutaneous solution 5 unit subcut TID DM 06/27/24 apixaban 2.5 mg tablet (Eliquis) 2.5 mg PO BID KIDNEY DISEASE WITH HEART FAILURE 11/09/24 duloxetine 30 mg capsule,delayed release 60 mg PO QHS major depressive disorder 11/09/24 gabapentin 300 mg capsule 300 mg PO BID neuropathy 11/09/24 clonidine HCl 0.2 mg tablet 0.2 mg PO BID hypertensive heart and chronic kidney disease 02/19/25 atorvastatin 40 mg tablet 40 mg PO DAILY hyperlipidemia 03/01/25 calcitriol 0.5 mcg capsule 0.5 mcg PO MOWEFR esrd received from dialysis 03/01/25 carvedilol 25 mg tablet 50 mg PO BID heart failure and chronic kidney disease 03/01/25 ivermectin 1 % topical cream 1 applic topical QHS for skin irritation 03/01/25 levothyroxine 150 mcg tablet 150 mcg PO DAILY hypothyroidism 03/01/25 metronidazole 1 % topical gel 1 applic topical DAILY PRN skin irritation 03/01/25 midodrine 10 mg tablet 10 mg PO DAILY PRN hypotension 03/01/25 ondansetron HCl 4 mg tablet 4 mg PO Q8H PRN PRN nausea and vomiting 03/01/25 pantoprazole 40 mg tablet,delayed release 40 mg PO DAILY gerd w/o esophagitis 03/01/25 ertapenem 1 gram solution for injection 0.5 g IV DAILY 2 doses 03/03/25 acetaminophen 325 mg tablet 650 mg PO Q4H PRN fever or pain 06/22/25 acetaminophen 650 mg rectal suppository (Pain Reliever (acetaminophen)) 650 mg AZ Q4H PRN fever or pain 06/22/25 aluminum-magnesium hydroxide 200 mg-200 mg/5 mL oral suspension 30 ml PO Q4H PRN GI distress 06/22/25 cholecalciferol (vitamin D3) 50 mcg (2,000 unit) capsule 50 mcg PO QPM vitamin d deficiency 06/22/25 clobetasol 0.05 % shampoo 1 applic topical SUTU scalp psoriosis 06/22/25 clobetasol 0.05 % shampoo 1 applic topical TH 06/22/25 magnesium hydroxide 400 mg/5 mL oral suspension (Milk of Magnesia) 30 ml PO DAILY PRN constipation 06/22/25 melatonin 10 mg tablet 10 mg PO QHS insomnia 06/22/25 trazodone 50 mg tablet 25 mg PO QHS insomnia 06/22/25 vitamin B complex-vitamin C-folic acid 0.8 mg tablet (Renal-Morales) 1 tab PO DAILY end stage renal disease 06/22/25 meropenem 1 gram intravenous solution 1 g IV QODAY #4 ea 06/25/25 midodrine 5 mg tablet 10 mg (2 x 5 mg) PO TIDCM #0 tabs 06/25/25 Hospital Course Summary of Care Provided Minutes Spent on Discharge: 35 Weight / BMI Weight Weight: 147 kg Body Mass Index (BMI) 42.9 ABG / Lab / Microbiology Data 06/25/25 03:35 06/25/25 03:35 Laboratory: Laboratory Results - last 24 hr 06/24/25 11:40: POC Glucose 217 H 06/24/25 15:58: POC Glucose 244 H 06/24/25 20:24: POC Glucose 257 H 06/25/25 03:35: WBC 25.8 H, RBC 2.95 L, Hgb 9.3 L, Hct 29.4 L, MCV 99.7 H, MCH 31.5, MCHC 31.6 L, RDW Std Deviation 53.1 H, RDW Coeff of Shanta 14.6, Plt Count 171, MPV 10.9, Immature Gran % (Auto) 2.000 H, Neut % (Auto) 91.5 H, Lymph % (Auto) 3.1 L, Morrow % (Auto) 3.2, Eos % (Auto) 0.0, Baso % (Auto) 0.2, Absolute Neuts (auto) 23.6 H, Absolute Lymphs (auto) 0.81 L, Nucleated RBC % 0, Sodium 133, Potassium 5.5 H, Chloride 95 L, Carbon Dioxide 23.4, Anion Gap 14, BUN 77 H, Creatinine 8.52 H*, Estim Creat Clear Calc 17.94 L, Est GFR (MDRD) Non-Af 8 L, BUN/Creatinine Ratio 9.0 L, Glucose 335 H, Calcium 9.1 Microbiology: Microbiology 06/22/25 14:40 Suprapubic Tap Urine Culture - Preliminary ESBL Escherichia coli Pseudomonas aeruginosa Gram positive organism 06/22/25 09:30 Blood Culture (Wb) - Right Wrist Blood Culture - Preliminary No growth in 48 hours. 06/22/25 09:25 Blood Culture (Wb) - Arm Right Blood Culture - Preliminary No growth in 48 hours. 06/22/25 15:04 Mucosa - Nasopharyngeal Respiratory Panel (PCR) - Final 06/22/25 14:40 Urine Catheter - Catheter Legionella Antigen - Final 06/22/25 14:40 Urine Catheter - Catheter Streptococcus pneumoniae Antigen (M - Final 06/22/25 11:45 Mucosa - Nasopharyngeal Coronavirus COVID-19 PCR - Final 06/22/25 09:25 Mucosa - Nose SARS-CoV-2, Influenza & RSV (PCR) - Final Radiography Diagnostic Testing: Radiology Impression Echocardiogram 06/23/25 10:37 Interpretation Summary The study was technically difficult. Mild concentric left ventricular hypertrophy. The left ventricular ejection fraction is 55 %. Stage 1 diastolic dysfunction. Ordering Physician: Hemanth Dodd Referring Physician: Justyn Rosario Performed By: Adela Conti, RDCS, RVT D/C Instructions DC O2, CPAP, BIPAP Needs Home O2 Discharge instructions: No Meaningful Use Info Meaningful Use Meaningful Use Diagnoses (Choose all that apply): None applicable Discharge Plan Admission Admit Date/Time: 06/22/25 10:29 Attending Provider: Fortunato Palomo Primary Care Provider: Vanessa Hutchins Consulting Providers: Benedicto Aaron; Derrick Cabrera; Paul Herrera; Alexandro Weiner; Rusty Kearney; Fortunato Velasco; Randa Hatfield; Slava Mera; Ariana Brooks; Del Newell; Olimpia Aponte; Hemanth Dodd; Adria Blanca; Stephania Doyle; Mina Francisco; Yfn Rosenthal; Joel Siu; Maci Salter; Klarissa Conti; Angle Hogan; Rosa Palumbo; Ru Key; Coy Bass; Hamida Partida; Neli Donovan; Abby Smith; Alex Gao; Hamida Mendosa; Kyler Malhotra; Bruno Tate; Luis Marrero; Josesito Jacobson; Norris Morales; Esvin Otero; Jen Reyes; Delano Infante; Jeanine Amos; Mariah Mcgowan; Eder Padilla; Stewart,Sd; Yousif Sparks; Anton Yen; Mak Rolle; Ansley Peña; Jabari Medeiros Discharge Orders/Prescriptions Prescriptions: New midodrine 5 mg Tablet 10 mg PO TIDCM Qty: 0 0RF meropenem 1 gram Recon Soln 1 g IV QODAY Qty: 4 0RF Rx Instructions: With dialysis Continued clonidine HCl 0.2 mg tablet 0.2 mg PO BID dextrose [Glucose Gel] 40 % Gel 15 g PO Q15M PRN (Reason: HYPGLYCEMIA ) Rx Instructions: until symptoms of low blood sugar are controlled tacrolimus [Prograf] 1 mg Capsule 2 mg PO BID Senna Plus 8.6-50 mg Capsule 1 tab-cap PO BID sevelamer HCl 800 mg tablet 2,400 mg PO TID Rx Instructions: must administer with a meal/food insulin lispro 100 unit/mL insulin pen 1 sliding scale dose subcut TIDCM Protocol: 6. Sliding Scale Insulin Custom Condition: 180-200 mg/dl range Dose/Route: 2 Units Condition: 201-250 Dose/Route: 3 Condition: 251-300 Dose/Route: 4 Condition: 301-350 Dose/Route: 5 Condition: 351-400 Dose/Route: 6 Condition: 401-450 Dose/Route: 7 Condition: >451 Dose/Route: call MD Protocol Text: Custom Sliding Scale guaifenesin [Adult Tussin Chest Congestion] 100 mg/5 mL liquid 200 mg PO Q4H PRN (Reason: COUGH/CONGESTION ) Fleet Enema 19-7 gram/118 mL enema 118 ml AZ BID PRN (Reason: constipation) Rx Instructions: if dulcolax suppository ineffective. call MD if no BM in 4 days insulin lispro 100 unit/mL solution 5 unit subcut TID Rx Instructions: HOLD FOR BS LESS THAN 120 insulin glargine [Lantus Solostar U-100 Insulin] 100 unit/mL (3 mL) insulin pen 12 unit subcut QPM Rx Instructions: afternoon glucagon HCl [Glucagon (HCl) Emergency Kit] 1 mg recon soln 1 mg IM Q20M PRN (Reason: HYPOGLYCEMIA ) hydralazine 50 mg Tablet 50 mg PO 4X/DAY duloxetine 30 mg capsule,delayed release(DR/EC) 60 mg PO QHS Eliquis 2.5 mg tablet 2.5 mg PO BID gabapentin 300 mg capsule 300 mg PO BID atorvastatin 40 mg tablet 40 mg PO DAILY calcitriol 0.5 mcg capsule 0.5 mcg PO MOWEFR carvedilol 25 mg tablet 50 mg PO BID levothyroxine 150 mcg tablet 150 mcg PO DAILY ivermectin 1 % cream 1 applic topical QHS Rx Instructions: apply to face midodrine 10 mg tablet 10 mg PO DAILY PRN (Reason: hypotension) Rx Instructions: hold if BP>130/90 metronidazole 1 % gel 1 applic topical DAILY PRN (Reason: skin irritation) ondansetron HCl 4 mg tablet 4 mg PO Q8H PRN PRN (Reason: nausea and vomiting) pantoprazole 40 mg tablet,delayed release (DR/EC) 40 mg PO DAILY ertapenem 1 gram recon soln 0.5 g IV DAILY Rx Instructions: 500mg IV ertapenem to be given with dialysis on 03/05/25 and 03/08/25. Dx: ESBL ecoli infection. acetaminophen 325 mg tablet 650 mg PO Q4H PRN (Reason: fever or pain) Rx Instructions: do not exceed 4gm in 24 hours trazodone 50 mg tablet 25 mg PO QHS melatonin 10 mg tablet 10 mg PO QHS Renal-Morales 0.8 mg tablet 1 tab PO DAILY cholecalciferol (vitamin D3) 50 mcg (2,000 unit) capsule 50 mcg PO QPM clobetasol 0.05 % shampoo 1 applic topical SUTU Rx Instructions: apply to scalp every day shift on sundays and tuesdays clobetasol 0.05 % shampoo 1 applic topical TH Rx Instructions: apply on car shifter magnesium hydroxide [Milk of Magnesia] 400 mg/5 mL suspension 30 ml PO DAILY PRN (Reason: constipation) Rx Instructions: notify MD if no BM in 4 days acetaminophen [Pain Reliever (acetaminophen)] 650 mg suppository 650 mg AZ Q4H PRN (Reason: fever or pain) Rx Instructions: do not exceed 4gm in 24 hours aluminum-magnesium hydroxide 200-200 mg/5 mL suspension 30 ml PO Q4H PRN (Reason: GI distress) Other Ambulatory Orders: Basic Metabolic Profile (BMP) (Routine) Timeframe: [id number] Facility: [facility] - Location: Laboratory Ordered By: Dr. Fortunato Palomo CBC W/Diff, Automated (Routine) Timeframe: [id number] Facility: [facility] - Location: Laboratory Ordered By: Dr. Fortunato Kittoe Referrals / Follow Up: Vanessa Hutchins MD [Primary Care Provider, Geriatrics] Disposition Disposition (needs filled in before D/C Order can be placed): [facility] Facility Charges/Coding Visit Charges Inpatient E&M: 83065 Disch Hosp >30min
[2025-06-25] MEDS: PureFlow B 2K Dialysis Soln 1 BAG 6 BAG PF (08:46)
[2025-06-25] MEDS: 0.9% Normal Saline 1,000 ML IV.SOLN. 1000 ML OPERA.SITE (08:46)
--- NOTE | 2025-06-25 08:46 | PCM.TXEXTCAR ---
Diet Diet Order/Speech Therapy: INPATIENT Hospital Diet / Speech Therapy Order(s) 06/22/25 16:13 Diet: Renal - ConsCHO - Eulogio Cont Food consistency:: Regular Liquid Consistency:: Regular/Thin Type of Dietary Supplement:: Kalyan Diet Comments: Kalyan with breakfast and dinner tray How many daily calories?: 2000 calorie DC O2, CPAP, BIPAP needs Home O2 Discharge instructions: No Therapies Physical Therapy: Eval and Treat Occupational Therapy: Eval and Treat Problem/Diagnosis (1) Septic shock: Status: Acute Code(s): A41.9 - Sepsis, unspecified organism; R65.21 - Severe sepsis with septic shock Plan Patient is a 39-year-old gentleman with multiple comorbidities including end-stage renal disease, recurrent PE and DVTs resident at an [facility] who presented with decreased level of sensorium with fever 1. Acute metabolic encephalopathy ? Secondary to sepsis of unspecified source. Patient has been admitted to the intensive care unit for subsequent management of suspected underlying etiology ? 06/23/2025; patient encephalopathy improving 2. Sepsis/Septic Shock secondary to UTI with ESBL E. coli ? Patient was found to have leukocytosis, hypotensive, fever with evidence of endorgan dysfunction?lactic acidosis as well as decreased level of sensorium. Cultures including viral respiratory panel and COVID assay sent. Patient was started on broad-spectrum antibiotic therapy with cefepime and vancomycin.. Patient has history of ESBL E: Coli cystitis. Urine cultures were therefore sent ? 06/23/2025; patient ended up being started on vasopressin and Levophed. Vasopressin has since been weaned off. Patient was also started on stress doses of hydrocortisone. Patient has a significant rise in his WBC count from 12.4 on admission to 31.6 ? 06/24/2025; patient WBC count remains elevated, urine and blood culture still pending ? 06/25/2025;Case discussed with ID plan is for patient to be discharged back to [facility] on ertapenem 1 g with dialysis for a weeek 3. End-stage renal disease ? Patient has history of failed renal transplant. Currently on hemodialysis on Tuesdays and Saturdays consult placed to nephrology for dialysis orders ? 06/23/2025; scheduled to undergo dialysis today 4. Anemia ? Secondary to anemia of end-stage renal disease monitoring H&H with plans to transfuse or if patient is deemed to be symptomatic 5. Dyslipidemia -Patient is on statin therapy, continued at home dose 6. Hypothyroidism - Patient is on levothyroxine home dose continued 7. Hypertension - Blood pressure controlled, home medications continued with dose adjustment as needed 8. Class III obesity with BMI of 44 ? Complicating care weight loss advised 9. Diabetes mellitus type II -patient's oral hypoglycemics held. Placed on long acting insulin, Accu-Cheks a.c. and at bedtime and covered with sliding scale insulin 10. GERD ? On PPI 11. Depression with anxiety ? Patient is on duloxetine as well as trazodone currently being held given his decreased level of sensorium 12 history of left BKA ? Supportive care 13. History of previous VTE ? Patient is on apixaban did continue 14. Chronic sacral decubitus ? Consult placed wound care nurse for dressing change 15. Paroxysmal atrial fibrillation ? Rate controlled on carvedilol and is on systemic anticoagulation with apixaban 16. DVT prophylaxis ? Patient is already on systemic anticoagulation 17. Hyperkalemia ? Secondary to ESRD plan is to manage through dialysis 18. Status post colostomy ? Will continue with colostomy care 19. Elevated troponin ? Patient presentation not consistent with acute coronary syndrome. Elevated troponin secondary to demand ischemia from oxygen mismatch as a result of patient underlying infection and end-stage renal disease.Patient had a recent 2D echo on 06/10/2025 which demonstrated Normal LV size. The left ventricular ejection fraction is 55 %. Mild concentric left ventricular hypertrophy. Structurally normal valves.. Will continue with monitoring 20. Marked leukocytosis ? Secondary to concomitant use of hydrocortisone. Repeat CBC with differential ordered as outpatient to be performed by patient ECF Allergies/Procedures Done in Hospital Allergies No Known Allergies Allergy (Verified 06/22/25 09:06) Type of Care/Length of Stay Estimated LOS: More Than 30 Days Type of Care Needed: Intermediate Rehab Potential: Poor Prognosis: Poor Additional Orders/Day of Discharge Day of Discharge: 06/25/25 Dietary and Speech Recommendations Dietitian Recommendations/Changes: Will change diet to 2000 calorie/carbohydrate-controlled; general renal. Will add Kalyan BID with meals. Diet instruction when patient is more alert. Discharge Plan Admission Admit Date/Time: 06/22/25 10:29 Attending Provider: Fortunato Palomo Primary Care Provider: Vanessa Hutchins Consulting Providers: Benedcito Aaron; Derrick Cabrera; Paul Herrera; Alexandro Weiner; Rusty Kearney; Fortunato Velasco; Randa Hatfield; Slava Mera; Ariana Brooks; Del Newell; Olimpia Aponte; Hemanth Dodd; Adria Blanca; Stephania Doyle; Mina Francisco; Yfn Rosenthal; Joel Siu; Maci Salter; Klarissa Conti; Angle Hogan; Rosa Palumbo; Ru Key; Coy Bass; Hamida Partida; Neli Donovan; Abby Smith; Alex Gao; Hamida Mendosa; Kyler Malhotra; Bruno Tate; Luis Marrero; Josesito Jacobson; Norris Morales; Esvin Otero; Jen Reyes; Delano Infante; Jeanine Amos; Mariah Mcgowan; Eder Padilla; Sd William; Yousif Sparks; Anton Yen; Mak Rolle; Ansley Peña; Jabari Medeiros Discharge Orders/Prescriptions Prescriptions: New midodrine 5 mg Tablet 10 mg PO TIDCM Qty: 0 0RF meropenem 1 gram Recon Soln 1 g IV QODAY Qty: 4 0RF Rx Instructions: With dialysis Continued clonidine HCl 0.2 mg tablet 0.2 mg PO BID dextrose [Glucose Gel] 40 % Gel 15 g PO Q15M PRN (Reason: HYPGLYCEMIA ) Rx Instructions: until symptoms of low blood sugar are controlled tacrolimus [Prograf] 1 mg Capsule 2 mg PO BID Senna Plus 8.6-50 mg Capsule 1 tab-cap PO BID sevelamer HCl 800 mg tablet 2,400 mg PO TID Rx Instructions: must administer with a meal/food insulin lispro 100 unit/mL insulin pen 1 sliding scale dose subcut TIDCM Protocol: 6. Sliding Scale Insulin Custom Condition: 180-200 mg/dl range Dose/Route: 2 Units Condition: 201-250 Dose/Route: 3 Condition: 251-300 Dose/Route: 4 Condition: 301-350 Dose/Route: 5 Condition: 351-400 Dose/Route: 6 Condition: 401-450 Dose/Route: 7 Condition: >451 Dose/Route: call MD Protocol Text: Custom Sliding Scale guaifenesin [Adult Tussin Chest Congestion] 100 mg/5 mL liquid 200 mg PO Q4H PRN (Reason: COUGH/CONGESTION ) Fleet Enema 19-7 gram/118 mL enema 118 ml CA BID PRN (Reason: constipation) Rx Instructions: if dulcolax suppository ineffective. call MD if no BM in 4 days insulin lispro 100 unit/mL solution 5 unit subcut TID Rx Instructions: HOLD FOR BS LESS THAN 120 insulin glargine [Lantus Solostar U-100 Insulin] 100 unit/mL (3 mL) insulin pen 12 unit subcut QPM Rx Instructions: afternoon glucagon HCl [Glucagon (HCl) Emergency Kit] 1 mg recon soln 1 mg IM Q20M PRN (Reason: HYPOGLYCEMIA ) hydralazine 50 mg Tablet 50 mg PO 4X/DAY duloxetine 30 mg capsule,delayed release(DR/EC) 60 mg PO QHS Eliquis 2.5 mg tablet 2.5 mg PO BID gabapentin 300 mg capsule 300 mg PO BID atorvastatin 40 mg tablet 40 mg PO DAILY calcitriol 0.5 mcg capsule 0.5 mcg PO MOWEFR carvedilol 25 mg tablet 50 mg PO BID levothyroxine 150 mcg tablet 150 mcg PO DAILY ivermectin 1 % cream 1 applic topical QHS Rx Instructions: apply to face midodrine 10 mg tablet 10 mg PO DAILY PRN (Reason: hypotension) Rx Instructions: hold if BP>130/90 metronidazole 1 % gel 1 applic topical DAILY PRN (Reason: skin irritation) ondansetron HCl 4 mg tablet 4 mg PO Q8H PRN PRN (Reason: nausea and vomiting) pantoprazole 40 mg tablet,delayed release (DR/EC) 40 mg PO DAILY ertapenem 1 gram recon soln 0.5 g IV DAILY Rx Instructions: 500mg IV ertapenem to be given with dialysis on 03/05/25 and 03/08/25. Dx: ESBL ecoli infection. 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 Fortunato Palomo CBC W/Diff, Automated (Routine) Timeframe: 20250628 Facility: [facility] - Location: Laboratory Ordered By: Dr. Fortunato Palomo Referrals / Follow Up: Vanessa Hutchins MD [Primary Care Provider, Geriatrics] Disposition Disposition (needs filled in before D/C Order can be placed): Long Term Facility
--- NOTE | 2025-06-25 10:03 | CASEMGMT ---
Addendum entered by Natalia Stevens 06/25/25 13:01: ID Doctor Waldemar states that the ATB rx was incorrect and provided this RN CM with updated rx. Updated Rxs faxed to [facility] at this time. TC to [facility] and notified. Copy of rxs placed in pts chart. Originals placed in pt's DC packet. Addendum entered by Natalia Stevens 06/25/25 11:36: Pt has a DC order placed. Transportation form filled out and provided to the DPA who plans to send signed med list and transfer summary to the SNF and also schedule transport. No further needs identified at this time. Original Note: Dr. Palomo provides an IV ATB Rx ertapenem to be given during HD. Hospitalist also reports that the pt will be discharging today. DPA notified. TC to [facility] in [place] and notified about the pt returning to [facility] today and also about the Rx. Rx faxed to [facility]. [facility] denies further needs at this time.
--- NOTE | 2025-06-25 11:31 | PHA.DC.MR.R ---
Pharmacy [place] Med Reconciliation Pharmacy Service has performed discharge medication reconciliation for this patient. The patient's discharge medication list was reviewed for discrepancies and discrepancies were resolved. Medications at Discharge Home Medications dextrose 40 % oral gel (Glucose Gel) 15 g PO Q15M PRN HYPGLYCEMIA 01/02/23 sennosides 8.6 mg-docusate sodium 50 mg capsule (Senna Plus) 1 tab-cap PO BID CONSTIPATION 01/02/23 tacrolimus 1 mg capsule, immediate-release (Prograf) 2 mg PO BID kidney transplant failure 01/02/23 sevelamer HCl 800 mg tablet 2,400 mg PO TID ESRD 04/21/23 insulin lispro 100 unit/mL subcutaneous pen 1 sliding scale dose subcut TIDCM type 2 diabetes 03/22/24 guaifenesin 100 mg/5 mL oral liquid (Adult Tussin Chest Congestion) 200 mg PO Q4H PRN COUGH/CONGESTION 03/29/24 glucagon HCl 1 mg solution for injection (Glucagon (HCl) Emergency Kit) 1 mg IM Q20M PRN HYPOGLYCEMIA 04/13/24 hydralazine 50 mg tablet 50 mg PO 4X/DAY BLOOD PRESSURE 04/13/24 sodium phosphates 19 gram-7 gram/118 mL enema (Fleet Enema) 118 ml HI BID PRN constipation 04/22/24 insulin glargine 100 unit/mL (3 mL) subcutaneous pen (Lantus Solostar U-100 Insulin) 12 unit subcut QPM DM 06/27/24 insulin lispro 100 unit/mL subcutaneous solution 5 unit subcut TID DM 06/27/24 apixaban 2.5 mg tablet (Eliquis) 2.5 mg PO BID KIDNEY DISEASE WITH HEART FAILURE 11/09/24 duloxetine 30 mg capsule,delayed release 60 mg PO QHS major depressive disorder 11/09/24 gabapentin 300 mg capsule 300 mg PO BID neuropathy 11/09/24 clonidine HCl 0.2 mg tablet 0.2 mg PO BID hypertensive heart and chronic kidney disease 02/19/25 atorvastatin 40 mg tablet 40 mg PO DAILY hyperlipidemia 03/01/25 calcitriol 0.5 mcg capsule 0.5 mcg PO MOWEFR esrd received from dialysis 03/01/25 carvedilol 25 mg tablet 50 mg PO BID heart failure and chronic kidney disease 03/01/25 ivermectin 1 % topical cream 1 applic topical QHS for skin irritation 03/01/25 levothyroxine 150 mcg tablet 150 mcg PO DAILY hypothyroidism 03/01/25 metronidazole 1 % topical gel 1 applic topical DAILY PRN skin irritation 03/01/25 midodrine 10 mg tablet 10 mg PO DAILY PRN hypotension 03/01/25 ondansetron HCl 4 mg tablet 4 mg PO Q8H PRN PRN nausea and vomiting 03/01/25 pantoprazole 40 mg tablet,delayed release 40 mg PO DAILY gerd w/o esophagitis 03/01/25 ertapenem 1 gram solution for injection 0.5 g IV DAILY 2 doses 03/03/25 acetaminophen 325 mg tablet 650 mg PO Q4H PRN fever or pain 06/22/25 acetaminophen 650 mg rectal suppository (Pain Reliever (acetaminophen)) 650 mg HI Q4H PRN fever or pain 06/22/25 aluminum-magnesium hydroxide 200 mg-200 mg/5 mL oral suspension 30 ml PO Q4H PRN GI distress 06/22/25 cholecalciferol (vitamin D3) 50 mcg (2,000 unit) capsule 50 mcg PO QPM vitamin d deficiency 06/22/25 clobetasol 0.05 % shampoo 1 applic topical SUTU scalp psoriosis 06/22/25 clobetasol 0.05 % shampoo 1 applic topical TH 06/22/25 magnesium hydroxide 400 mg/5 mL oral suspension (Milk of Magnesia) 30 ml PO DAILY PRN constipation 06/22/25 melatonin 10 mg tablet 10 mg PO QHS insomnia 06/22/25 trazodone 50 mg tablet 25 mg PO QHS insomnia 06/22/25 vitamin B complex-vitamin C-folic acid 0.8 mg tablet (Renal-Morales) 1 tab PO DAILY end stage renal disease 06/22/25 meropenem 1 gram intravenous solution 1 g IV QODAY #4 ea 06/25/25 midodrine 5 mg tablet 10 mg (2 x 5 mg) PO TIDCM #0 tabs 06/25/25
--- NOTE | 2025-06-25 12:46 | PCM.PN.ID ---
Physical Exam Narrative Feeling better, no fever, no abd pain, no n/v/d. Const alert and no apparent distress General Appearance: cooperative Resp normal air movement and clear to auscultation bilaterally Cardio regular rate and regular rhythm GI soft to palpation, non-tender and non-distended Skin no rashes or lesions noted ID ID: Route of nutrition/ use of supplements: [] Nutritional Intake: [] IV Site: [] Hurst Catheter: [] Assessment & Plan Assessment/Plan (1) Septic shock: PLAN: Overall improved. Suspected urinary source. Ucx with ESBL ecoli, pseudomonas. Urine antigens neg, bcx neg. On meropenem. Will write for 3 doses ertapenem dosed with HD and po cipro. Will follow prn, d/w Dr. Palomo and director case management (2) ESRD (end stage renal disease):
[2025-06-25] MEDS: Ertapenem Sod 1 GM in 0.9% Normal Saline (50mL MB+) 50 ML IV (13:40)
--- NOTE | 2025-06-25 13:47 | PN.RENAL_ITS ---
Subjective Subjective no new events Objective Data Objective Data Vital Signs: Vital Signs Temp Pulse Resp BP Pulse Ox O2 Del Method O2 Flow Rate 97.7 F L 85 19 H 134/67 H 99 Nasal Cannula 1 06/25/25 12:34 06/25/25 12:34 06/25/25 12:34 06/25/25 12:34 06/25/25 12:34 06/25/25 12:34 06/25/25 12:34 Oxygen Flow Rate (L/min) 1 Oxygen Delivery Method Nasal Cannula Weight: 144 kg Body Mass Index (BMI) 42.0 Intake & Output: Intake and Output for Last 24 Hours 06/23/25 06/24/25 06/25/25 23:59 23:59 23:59 Intake Total 3447.96 / 3586.71 1897.92 / 1897.92 400 / 400 Output Total 1560 / 1560 2900 / 2900 Balance 1887.96 / 2026.71 1887.92 / 1887.92 -2500 / -2500 Lab / Micro Data 06/25/25 03:35 06/25/25 03:35 Labs: Laboratory Results - last 24 hr 06/24/25 15:58: POC Glucose 244 H 06/24/25 20:24: POC Glucose 257 H 06/25/25 03:35: WBC 25.8 H, RBC 2.95 L, Hgb 9.3 L, Hct 29.4 L, MCV 99.7 H, MCH 31.5, MCHC 31.6 L, RDW Std Deviation 53.1 H, RDW Coeff of Shanta 14.6, Plt Count 171, MPV 10.9, Immature Gran % (Auto) 2.000 H, Neut % (Auto) 91.5 H, Lymph % (Auto) 3.1 L, [place] % (Auto) 3.2, Eos % (Auto) 0.0, Baso % (Auto) 0.2, Absolute Neuts (auto) 23.6 H, Absolute Lymphs (auto) 0.81 L, Nucleated RBC % 0, Sodium 133, Potassium 5.5 H, Chloride 95 L, Carbon Dioxide 23.4, Anion Gap 14, BUN 77 H , Creatinine 8.52 H*, Estim Creat Clear Calc 17.94 L, Est GFR (MDRD) Non-Af 8 L, BUN/Creatinine Ratio 9.0 L, Glucose 335 H, Calcium 9.1 06/25/25 11:39: POC Glucose 222 H Micro: Microbiology 06/22/25 14:40 Suprapubic Tap Urine Culture - Preliminary ESBL Escherichia coli Pseudomonas aeruginosa Gram positive organism 06/22/25 09:30 Blood Culture (Wb) - Right Wrist Blood Culture - Preliminary No growth in 48 hours. 06/22/25 09:25 Blood Culture (Wb) - Arm Right Blood Culture - Preliminary No growth in 48 hours. 06/22/25 15:04 Mucosa - Nasopharyngeal Respiratory Panel (PCR) - Final 06/22/25 14:40 Urine Catheter - Catheter Legionella Antigen - Final 06/22/25 14:40 Urine Catheter - Catheter Streptococcus pneumoniae Antigen (M - Final 06/22/25 11:45 Mucosa - Nasopharyngeal Coronavirus COVID-19 PCR - Final 06/22/25 09:25 Mucosa - Nose SARS-CoV-2, Influenza & RSV (PCR) - Final Rhythm Strip Rhythm Strip: Sinus Rhythm Rate: 100 Ectopy: None Physical Exam Narrative Alert awake oriented x 3 no obvious distress no pallor no icterus no JVD s1s2 no murmurs lungs clear abdomen soft no organomegaly Assessment & Plan Assessment/Plan (1) ESRD (end stage renal disease): PLAN: On hemodialysis Saturday, Saturday, Saturday schedule. Today potassium is on the higher side. Dialysis today, see orders. Will use 2K bath. Fluid removal as tolerated, blood pressure is on the lower side. He is currently alert, awake. Pressor requirements have improved.? Source of sepsis. Medication list reviewed, he is on tacrolimus in view of remote history of kidney transplant to prevent hyper acute rejection. However it seems he had been on dialysis for a while now, I think dose can be slowly reduced. 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 Management of suspected sepsis as per primary. 06/25/25. K at 5.5. HD today on 2K bath. breathing is ok. WBC better. antibiotics as per ID service. fluid removal 3-4 L as tolerated
--- NOTE | 2025-06-25 14:46 | CASEMGMT ---
Discharge Planning Discharge orders, signed med list, and transport time sent via [facility] to [facility]. Physicians will transport pt by cot at 3p. Nursing, RN CM, and pt updated. VMs left for both pts siblings (Rudy & Abraham). Selina Sylvester DC Planning Asst.
== END 2025-06-25 15:57 | disposition skilled nursing facility (03) | DRG 871 ==
LOC: ED 09:42 → ICU 10:53
PROVIDERS: Internal Medicine Critical Care Medicine; Admitting Provider Internal Medicine; Emergency Provider Emergency Medicine; PCP Internal Medicine; Visit Provider Internal Medicine
DX: A41.9 Sepsis, unspecified organism (principal); G93.41 Metabolic encephalopathy; R65.21 Severe sepsis with septic shock; N18.6 End stage renal disease; I12.0 Hypertensive chronic kidney disease with stage 5 chronic kidney disease or end stage renal disease; I24.89 Other forms of acute ischemic heart disease; D84.9 Immunodeficiency, unspecified; Z68.41 Body mass index [BMI] 40.0-44.9, adult; N39.0 Urinary tract infection, site not specified; D63.8 Anemia in other chronic diseases classified elsewhere; E11.22 Type 2 diabetes mellitus with diabetic chronic kidney disease; F32.A Depression, unspecified; I48.0 Paroxysmal atrial fibrillation; K21.9 Gastro-esophageal reflux disease without esophagitis; Z79.4 Long term (current) use of insulin; I25.10 Atherosclerotic heart disease of native coronary artery without angina pectoris; E87.5 Hyperkalemia; Z99.2 Dependence on renal dialysis; F41.9 Anxiety disorder, unspecified; B96.20 Unspecified Escherichia coli [E. coli] as the cause of diseases classified elsewhere; E66.813 Obesity, class 3; Z86.711 Personal history of pulmonary embolism; Z86.718 Personal history of other venous thrombosis and embolism; Z79.899 Other long term (current) drug therapy; Z79.01 Long term (current) use of 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
CPT/HCPCS: 36600; 71045; 80048; 80053; 81001; 82803; 82962; 83605; 83735; 84100; 84484; 85025; 85610; 85730; 87040; 87077; 87086; 87088; 87184; 87186; 87449; 87631; 87633; 87635; 90937; 93005; 93308; 97802; 99285; J2185; A4216; G0257

== ENCOUNTER 2025-06-28 07:26 | Emergency (ER) | payer MEDICARE, SELFPAY ==
[2025-06-28] VITALS (9 sets, daily range): BP systolic 107–158; BP diastolic 39–100; PULSE 67–78; RESP 13–18; TEMP 36.2–37.2; O2SAT 98–100; BMI 43.9
--- NOTE | 2025-06-28 07:52 | EX.ED.DYSGE1 ---
HPI History of Present Illness Chief Complaint: Allergic Reaction Narrative Narrative: Chief complaint and HPI: 39-year-old gentleman with multiple comorbidities including ESRD on HD Saturday/Saturday/Saturday, PE/DVT on Eliquis DM 2 presents for evaluation of tongue and lip swelling after recent antibiotic and decreased p.o. intake. Patient states that he was recently discharged from the hospital on Saturday. States he was discharged home on antibiotic. Patient states since Saturday he has had bilateral lip and tongue swelling. States he is unable to eat secondary to this. He denies difficulty with phonation or tolerating secretions. He denies any fever, chills, shortness of breath, chest pain, wheezing, abdominal pain, nausea, vomiting, rash, pruritus. Review of systems: See HPI Medications: As listed on the chart Allergies: As listed on the chart PFSH: Per chart Vital signs: As listed on the chart. Reviewed. Physical exam: Gen: A&O x3, NAD Head: Normocephalic, atraumatic Eyes: No sclera icterus, conjunctiva clear, PERRL ENT: Dry mucous membranes, patient has bilateral angioedema of the lips and tongue, lips are very dry and brittle, tolerating secretions, normal phonation, posterior oropharynx unremarkable, uvula midline, no angioedema of the face otherwise, no sublingual or submandibular swelling Neck: Trachea midline, Full ROM CV: RRR, no murmurs, anasarca-patient is supposed to receive dialysis this morning, left upper extremity fistula with good thrill Resp: Lungs CTA BL, no w/r/c, no stridor, on baseline 3.5 L nasal cannula GI: Abd soft, non-distended, non-tender, no r/r/g Musc: Moves all extremities, no deformity Skin: Warm, dry, no rash Neuro: Alert, oriented, grossly intact, sensation intact Psych: Cooperative, appropriate mood and affect [facility] Medical History History of ESBL E. 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 Acute hyperkalemia Acute alteration in mental status Phantom limb syndrome with pain Paraplegia Metabolic encephalopathy ESRD (end stage renal disease) on dialysis Hx of pulmonary embolus Type 2 diabetes mellitus End-stage renal disease on hemodialysis Anticoagulant long-term use History of deep vein thrombosis Anemia in chronic kidney disease, on chronic dialysis Acute postoperative 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 H/O deep venous thrombosis Osteomyelitis of pelvic region Lives in fpc Anxiety Open wound Insulin dependent diabetes mellitus Uses wheelchair Injury of back 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 disease 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, stage 4 Neurogenic bowel Kidney transplant failure Dependence on renal dialysis Pressure ulcer of left heel, unspecified stage Gastro-esophageal reflux disease without esophagitis Other pericardial effusion (noninflammatory) Other pulmonary embolism without acute cor pulmonale Hypertensive heart and chronic kidney disease with heart failure and stage 1 through stage 4 chronic kidney disease, or unspecified chronic kidney disease Depression Hyperlipemia Hypothyroidism Anemia in chronic kidney disease Neuromuscular dysfunction of bladder, unspecified Paraplegia, incomplete Other acute osteomyelitis, left ankle and foot Home Medications ?Medication ?Instructions ?Recorded ?Last Taken ?Type sennosides 8.6 mg-docusate sodium 1 tab-cap PO BID CONSTIPATION 01/02/23 06/22/25 History 50 mg capsule (Senna Plus) tacrolimus 1 mg capsule, 2 mg PO BID kidney transplant 01/02/23 06/22/25 05:15 History immediate-release (Prograf) failure sevelamer HCl 800 mg tablet 2,400 mg PO TID ESRD 04/21/23 06/22/25 05:15 History insulin lispro 100 unit/mL 1 sliding scale dose subcut TIDCM 03/22/24 06/21/25 16:20 History subcutaneous pen type 2 diabetes guaifenesin 100 mg/5 mL oral 200 mg PO Q4H PRN COUGH/CONGESTION 03/29/24 06/19/25 10:20 History liquid (Adult Tussin Chest Congestion) glucagon HCl 1 mg solution for 1 mg IM Q20M PRN HYPOGLYCEMIA 04/13/24 Unknown History injection (Glucagon (HCl) Emergency Kit) hydralazine 50 mg tablet 50 mg PO 4X/DAY BLOOD PRESSURE 04/13/24 06/22/25 05:15 History sodium phosphates 19 gram-7 118 ml WA BID PRN constipation 04/22/24 Unknown History gram/118 mL enema (Fleet Enema) insulin glargine 100 unit/mL (3 12 unit subcut QPM DM 06/27/24 06/21/25 History mL) subcutaneous pen (Lantus Solostar U-100 Insulin) insulin lispro 100 unit/mL 5 unit subcut TID DM 06/27/24 06/22/25 05:15 History subcutaneous solution apixaban 2.5 mg tablet (Eliquis) 2.5 mg PO BID KIDNEY DISEASE WITH 11/09/24 06/22/25 05:15 History HEART FAILURE duloxetine 30 mg capsule,delayed 60 mg PO QHS major depressive 11/09/24 06/21/25 21:10 History release disorder gabapentin 300 mg capsule 300 mg PO BID neuropathy 11/09/24 06/22/25 05:15 History clonidine HCl 0.2 mg tablet 0.2 mg PO BID hypertensive heart 02/19/25 06/21/25 21:10 History and chronic kidney disease atorvastatin 40 mg tablet 40 mg PO DAILY hyperlipidemia 03/01/25 06/21/25 21:10 History calcitriol 0.5 mcg capsule 0.5 mcg PO MOWEFR esrd received 03/01/25 06/21/25 05:10 History from dialysis carvedilol 25 mg tablet 50 mg PO BID heart failure and 03/01/25 06/22/25 05:15 History chronic kidney disease ivermectin 1 % topical cream 1 applic topical QHS for skin 03/01/25 06/21/25 21:10 History irritation levothyroxine 150 mcg tablet 150 mcg PO DAILY hypothyroidism 03/01/25 06/22/25 05:15 History metronidazole 1 % topical gel 1 applic topical DAILY PRN skin 03/01/25 Unknown History irritation midodrine 10 mg tablet 10 mg PO DAILY PRN hypotension 03/01/25 Unknown History ondansetron HCl 4 mg tablet 4 mg PO Q8H PRN PRN nausea and 03/01/25 06/15/25 12:20 History vomiting pantoprazole 40 mg tablet,delayed 40 mg PO DAILY gerd w/o esophagitis 03/01/25 06/22/25 05:15 History release acetaminophen 325 mg tablet 650 mg PO Q4H PRN fever or pain 06/22/25 06/22/25 05:15 History acetaminophen 650 mg rectal 650 mg WA Q4H PRN fever or pain 06/22/25 Unknown History suppository (Pain Reliever (acetaminophen)) aluminum-magnesium hydroxide 200 30 ml PO Q4H PRN GI distress 06/22/25 Unknown History mg-200 mg/5 mL oral suspension cholecalciferol (vitamin D3) 50 50 mcg PO QPM vitamin d deficiency 06/22/25 06/21/25 12:20 History mcg (2,000 unit) capsule clobetasol 0.05 % shampoo 1 applic topical SUTU scalp 06/22/25 06/20/25 10:25 History psoriosis clobetasol 0.05 % shampoo 1 applic topical TH 06/22/25 06/17/25 History magnesium hydroxide 400 mg/5 mL 30 ml PO DAILY PRN constipation 06/22/25 Unknown History oral suspension (Milk of Magnesia) melatonin 10 mg tablet 10 mg PO QHS insomnia 06/22/25 06/21/25 21:10 History trazodone 50 mg tablet 25 mg PO QHS insomnia 06/22/25 06/21/25 21:10 History vitamin B complex-vitamin C-folic 1 tab PO DAILY end stage renal 06/22/25 06/21/25 16:25 History acid 0.8 mg tablet (Renal-Morales) disease ertapenem 1 gram solution for 1 g IV .MWF 3 doses 06/25/25 Unknown Rx injection diphenhydramine HCl 25 mg capsule 50 mg PO Q12H PRN itching 06/28/25 Unknown History (Benadryl) ertapenem 1 gram solution for 1 g IV MOWEFR 06/28/25 Unknown History injection Allergy/AdvReac Type Severity Reaction Status Date / Time No Known Allergies Allergy Verified 06/28/25 07:34 Family History Mother Hypertension Diabetes Father Hypertension Diabetes Surgical History History of kidney transplant S/P unilateral above knee amputation S/P foot surgery S/P colostomy Social History housing: fpc Smoking Status: Never smoker alcohol intake: never substance use type: does not use EXAM Physical Exam Const Vital Signs: 06/28/25 07:28 06/28/25 07:34 06/28/25 07:37 Temperature 97.1 F L 97.1 F L 97.1 F L Temperature Source Axillary Axillary Oral Pulse Rate 68 67 Respiratory Rate 18 16 Blood Pressure 107/39 L 107/39 L Blood Pressure Mean 61 61 Pulse Ox 100 100 Oxygen Delivery Method Nasal Cannula Nasal Cannula Oxygen Flow Rate (L/min) 3.5 3.5 06/28/25 08:37 06/28/25 09:00 06/28/25 09:44 Temperature 97.8 F 98.9 F Temperature Source Axillary Oral Pulse Rate 69 68 69 Respiratory Rate 18 16 14 Blood Pressure 128/60 H 137/73 H 134/77 H Blood Pressure Mean 82 94 96 Pulse Ox 100 100 100 Oxygen Delivery Method Nasal Cannula Room Air Nasal Cannula Oxygen Flow Rate (L/min) 06/28/25 10:01 Temperature 97.9 F Temperature Source Temporal Pulse Rate 69 Respiratory Rate 14 Blood Pressure 149/80 H Blood Pressure Mean 103 Pulse Ox 100 Oxygen Delivery Method Nasal Cannula Oxygen Flow Rate (L/min) MDM MDM MDM Narrative Medical decision making narrative: 39-year-old gentleman with multiple comorbidities including ESRD on HD Saturday/Saturday/Saturday, PE/DVT on Eliquis DM 2 presents for evaluation of tongue and lip swelling after recent antibiotic and decreased p.o. intake. Patient states that he was recently discharged from the hospital on Saturday. States he was discharged home on antibiotic. Patient states since Saturday he has had bilateral lip and tongue swelling. States he is unable to eat secondary to this. He denies difficulty with phonation or tolerating secretions. He denies any fever, chills, shortness of breath, chest pain, wheezing, abdominal pain, nausea, vomiting, rash, pruritus. See physical exam findings. Patient has angioedema of the bilateral lips and tongue. He has normal phonation. He is tolerating secretions although he has moist mucous membranes are very dry. Symptoms have been ongoing for several days. Will give IV Benadryl, Pepcid, Solu-Medrol. I do not think patient requires epinephrine at this time. Given that patient endorses decreased p.o. intake will obtain basic labs. Patient is anasarcic. He is supposed to require dialysis today. Will not be giving any fluids. On chart review, patient was discharged from our hospital on 06/25/2025. I reviewed the discharge summary from none. He had acute metabolic encephalopathy secondary to septic shock for UTI with ESBL E. coli and Pseudomonas. Discharge summary states that the patient was discussed with ID in which she was placed on meropenem 1 g with dialysis for a week. CBC with mild leukocytosis 11.1 however this is downtrending from 25.8. Patient has baseline anemia of 8.9. Platelets unremarkable. CMP shows ESRD with a BUN of 109 and a creatinine of 10.4. Patient is scheduled for dialysis today. No transaminitis. At this point in time I am waiting on the patient's urine. I wanted to assess for the infection as well as ketones. Patient states he makes minimal urine at baseline. Usually has to be straight cath. Declining straight cath at this time. Patient was made aware without his urine I cannot confirm that the infection has resolved. He confirmed understanding. I personally explained to him that choosing not to give a urine may result result in permanent bodily harm as there may be unforeseen circumstances.. I discussed at length that without further evaluation and monitoring there may be unforeseen circumstances. He is alert and oriented and can make his own decisions. He states that that he is aware of the serious risks as explained, but continues to not want to give a urine. Therefore urine will not be collected. Patient was able to tolerate p.o. intake in the emergency department. The plan will be to send him home on Pepcid and prednisone prescription. They will need to monitor his sugars closely at his care facility given he is diabetic. He will need dialysis today. He confirmed understanding. Given patient is supposed to be on meropenem and feels that this is the cause of his reaction. Will reach out to infectious disease to assess medication change. I spoke with Dr. Medeiros with infectious disease. He states that patient is also on ciprofloxacin. He states at this time stop the ciprofloxacin. He has received 2 doses of meropenem today and Saturday. If symptoms worsen he needs to come back to the ED and stop further dosing. Patient and care facility will be updated of this information. Patient will need dialysis today. Patient is stable to discharge home. Impression: 1. Mild angioedema of the bilateral lips and tongue 2. ESRD on HD 3. Possible antibiotic allergic reaction Lab Data Labs: Laboratory Results - last 24 hr 06/28/25 08:06 WBC 11.1 H RBC 2.83 L Hgb 8.9 L Hct 28.3 L MCV 100.0 H MCH 31.4 MCHC 31.4 L RDW Std Deviation 51.7 H RDW Coeff of Shanta 14.3 Plt Count 179 MPV 10.6 Immature Gran % (Auto) 3.600 H Neut % (Auto) 68.3 Lymph % (Auto) 16.6 L Saunders % (Auto) 6.9 Eos % (Auto) 3.7 Baso % (Auto) 0.9 Absolute Neuts (auto) 7.6 Absolute Lymphs (auto) 1.83 Nucleated RBC % 0 Sodium 135 Potassium 5.0 Chloride 96 L Carbon Dioxide 22.0 Anion Gap 17 H BUN 109 H* Creatinine 10.40 H* Estim Creat Clear Calc 14.90 L Est GFR (MDRD) Non-Af 6 L BUN/Creatinine Ratio 10.5 Glucose 170 H Calcium 8.8 Total Bilirubin 0.40 AST 23 ALT 22 Alkaline Phosphatase 186 H Total Protein 7.0 Albumin 2.7 L Globulin 4.3 H Albumin/Globulin Ratio 0.6 L Discharge Plan Triage Chief Complaint: Allergic Reaction ED Provider: Yg Han Dx/Rx/DC Orders Prescriptions: No Action clonidine HCl 0.2 mg tablet 0.2 mg PO BID tacrolimus [Prograf] 1 mg Capsule 2 mg PO BID Senna Plus 8.6-50 mg Capsule 1 tab-cap PO BID sevelamer HCl 800 mg tablet 2,400 mg PO TID Rx Instructions: must administer with a meal/food insulin lispro 100 unit/mL insulin pen 1 sliding scale dose subcut TIDCM Protocol: 6. Sliding Scale Insulin Custom Condition: 180-200 mg/dl range Dose/Route: 2 Units Condition: 201-250 Dose/Route: 3 Condition: 251-300 Dose/Route: 4 Condition: 301-350 Dose/Route: 5 Condition: 351-400 Dose/Route: 6 Condition: 401-450 Dose/Route: 7 Condition: >451 Dose/Route: call MD Protocol Text: Custom Sliding Scale guaifenesin [Adult Tussin Chest Congestion] 100 mg/5 mL liquid 200 mg PO Q4H PRN (Reason: COUGH/CONGESTION ) Fleet Enema 19-7 gram/118 mL enema 118 ml WA BID PRN (Reason: constipation) Rx Instructions: if dulcolax suppository ineffective. call MD if no BM in 4 days insulin lispro 100 unit/mL solution 5 unit subcut TID Rx Instructions: HOLD FOR BS LESS THAN 120 insulin glargine [Lantus Solostar U-100 Insulin] 100 unit/mL (3 mL) insulin pen 12 unit subcut QPM Rx Instructions: afternoon diphenhydramine HCl [Benadryl] 25 mg capsule 50 mg PO Q12H PRN (Reason: itching) ertapenem 1 gram recon soln 1 g IV MOWEFR Rx Instructions: X8D ENDING 07/06/25 glucagon HCl [Glucagon (HCl) Emergency Kit] 1 mg recon soln 1 mg IM Q20M PRN (Reason: HYPOGLYCEMIA ) hydralazine 50 mg Tablet 50 mg PO 4X/DAY duloxetine 30 mg capsule,delayed release(DR/EC) 60 mg PO QHS Eliquis 2.5 mg tablet 2.5 mg PO BID gabapentin 300 mg capsule 300 mg PO BID atorvastatin 40 mg tablet 40 mg PO DAILY calcitriol 0.5 mcg capsule 0.5 mcg PO MOWEFR carvedilol 25 mg tablet 50 mg PO BID levothyroxine 150 mcg tablet 150 mcg PO DAILY ivermectin 1 % cream 1 applic topical QHS Rx Instructions: apply to face midodrine 10 mg tablet 10 mg PO DAILY PRN (Reason: hypotension) Rx Instructions: hold if BP>130/90 metronidazole 1 % gel 1 applic topical DAILY PRN (Reason: skin irritation) ondansetron HCl 4 mg tablet 4 mg PO Q8H PRN PRN (Reason: nausea and vomiting) pantoprazole 40 mg tablet,delayed release (DR/EC) 40 mg PO DAILY acetaminophen 325 mg tablet 650 mg PO Q4H PRN (Reason: fever or pain) Rx Instructions: do not exceed 4gm in 24 hours trazodone 50 mg tablet 25 mg PO QHS melatonin 10 mg tablet 10 mg PO QHS Renal-Morales 0.8 mg tablet 1 tab PO DAILY cholecalciferol (vitamin D3) 50 mcg (2,000 unit) capsule 50 mcg PO QPM clobetasol 0.05 % shampoo 1 applic topical SUTU Rx Instructions: apply to scalp every day shift on sundays and tuesdays clobetasol 0.05 % shampoo 1 applic topical Rx 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 Dx: ESBL infection. Primary Care Provider: Vanessa Hutchins Referrals: Vanessa Hutchins MD [Primary Care Provider, Geriatrics] Print Language: [place]
[2025-06-28] MEDS: DiphenhydrAMINE 50 MG/ML Syringe IV (08:06)
[2025-06-28] MEDS: Famotidine 200 MG/20 ML MDV 20 MG in 0.9% Normal Saline (Pres. free 8 ML 300 MG IV (08:06)
[2025-06-28 08:13] LABS: Hematocrit 28.3 % (40-54); Hemoglobin 8.9 g/dL (13.0-16.5); Immature Granulocytes Count 0.400 X10^3/uL (0.0-0.0); Mean Corp Hgb Conc 31.4 g/dL (32-36); Mean Corpuscular Volume 100.0 fL (80-94); Mean Platelet Vol. 10.6 fl (6.2-12.0); NRBC Flagged by Analyzer 0 % (0-5); Platelet Count 179 K/mm3 (150-450); RBC Distribution Width CV 14.3 % (11.6-14.6); RBC Distribution Width SD 51.7 fl (35.1-43.9); Red Blood Count 2.83 M/mm3 (4.6-6.2); White Blood Count 11.1 K/mm3 (4.4-11.0)
[2025-06-28 08:47] LABS: AST(SGOT) 23 U/L (<=37); Albumin, Serum 2.7 g/dL (3.5-5.0); Alkaline Phosphatase 186 U/L (40-129); Anion Gap 17 (5-15); BUN/Creat Ratio 10.5 RATIO (10-20); Calcium,Total 8.8 mg/dL (7.6-11.0); Carbon Dioxide 22.0 mmol/L (21.0-32.0); Chloride 96 mmol/L (98-108); Estimated Creatinine Clearance 14.90 ml/min (50-250); Globulin 4.3 g/dL (2.2-4.2); Glucose 170 mg/dL (70-99); Potassium 5.0 mmol/L (3.3-5.1)
[2025-06-28 08:53] LABS: Alanine Aminotransfer ALT/SGPT 22 U/L (<=46); BUN 109 mg/dL (4-19)
== END 2025-06-28 12:28 | disposition skilled nursing facility (03) ==
PROVIDERS: Emergency Provider Surgery; PCP Internal Medicine; Visit Provider Surgery
DX: T78.3XXA Angioneurotic edema, initial encounter (principal); G82.22 Paraplegia, incomplete; I12.0 Hypertensive chronic kidney disease with stage 5 chronic kidney disease or end stage renal disease; N18.6 End stage renal disease; Z79.4 Long term (current) use of insulin; E11.22 Type 2 diabetes mellitus with diabetic chronic kidney disease; X58.XXXA Exposure to other specified factors, initial encounter; Z94.0 Kidney transplant status; Z99.2 Dependence on renal dialysis; Z79.01 Long term (current) use of 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; Z79.899 Other long term (current) drug therapy
CPT/HCPCS: 80053; 85025; 96374; 96375; 99285; A4216